=== PATIENT | male | born 1950 | race Caucasian/White ===

== ENCOUNTER 2018-10-23 03:18 | Emergency (ER) | payer OTHER, MEDICARE ==
[2018-10-23] MEDS ORDERED: ONDANSETRON 4 MG/2 ML VIAL ONE (04:47)
[2018-10-23] MEDS ORDERED: FAMOTIDINE 20 MG/2 ML VIAL IV ONE (04:47)
[2018-10-23] MEDS ORDERED: MAGNE/ALUM HYDROXD 30 ML UCUP ONE (04:47)
[2018-10-23] MEDS ORDERED: LIDOCAINE VISCOUS 2% SOLN 15 ML UDC ONE ×2 (04:47→05:01)
[2018-10-23 04:59] LABS: Absolute Monocytes 0.7 K/uL (0.1-1.3); Absolute Neutrophil 3.1 K/uL (1.8-8.0); Basophils % 1.2 % (0-1.3); Eosinophils % 2.8 % (0-4.4); MPV 11.2 fL (7.6-11.3); RBC Red Blood Cell Count 3.34 M/uL (4.33-5.43)
[2018-10-23] MEDS ORDERED: MAGNES/ALUMIN/SIMET 30ML UCUP ONE (05:01)
[2018-10-23 05:30] LABS: ALT/SGPT 31 U/L (12-78); AST/SGOT 21 U/L (15-37); Albumin 3.9 g/dL (3.4-5.0); Alkaline Phosphatase 90 U/L (45-117); BUN Blood Urea Nitrogen 41 mg/dL (7-18); Bicarbonate 30 mmol/L (21-32); Bilirubin Direct 0.1 mg/dL (0-0.2); Bilirubin Total 0.4 mg/dL (0.2-1.0); Glucose Level 139 mg/dL (74-106); Lipase 137 U/L (73-393); Potassium 4.4 mmol/L (3.5-5.1); Protein, Total 7.6 g/dL (6.4-8.2); Sodium Level 138 mmol/L (136-145); Troponin (Emerg Dept Use Only) < 0.02 ng/mL (0.0-0.045)
--- NOTE | 2018-10-23 06:03 | ER ---
Nurse's Notes [facility] Name: Ritika Mireles Age: 68 yrs Sex: Male : 1950 Arrival Date: 10/23/2018 Time: 03:21 Bed 18 Private MD: Juan Pablo Byrne Diagnosis: Gastritis, unspecified Presentation: 10/23 03:25 Presenting complaint: Patient states: I have had indigestion for the past few weeks. jb4 Tonight it kept getting worse and I took 3 Honey-Tilly and about 12 tums. It did not get any better until I got here. 03:25 Transition of care: patient was not received from another setting of care. Onset of jb4 symptoms was October 05, 2018. Risk Assessment: Do you want to hurt yourself or someone else? Patient reports no desire to harm self or others. Initial Sepsis Screen: Does the patient meet any 2 criteria? No. Patient's initial sepsis screen is negative. Does the patient have a suspected source of infection? No. Patient's initial sepsis screen is negative. Care prior to arrival: None. 03:25 Method Of Arrival: Wheelchair jb4 03:25 Acuity: MICHELLE 3 jb4 Triage Assessment: 03:25 General: Appears in no apparent distress. comfortable, Behavior is calm, cooperative, jb4 appropriate for age. Pain: Complains of pain in abdomen Pain does not radiate. Pain currently is 0 out of 10 on a pain scale. at worst was 10 out of 10 on a pain scale. Quality of pain is described as burning. EENT: No signs and/or symptoms were reported regarding the EENT system. Neuro: Level of Consciousness is awake, alert, obeys commands, Oriented to person, place, time, situation. Cardiovascular: Patient's skin is warm and dry. Respiratory: Airway is patent Respiratory effort is even, unlabored, Respiratory pattern is regular, symmetrical. GI: Reports indigestion. : No signs and/or symptoms were reported regarding the genitourinary system. Derm: Skin is intact, Skin is pink, warm \T\ dry. Musculoskeletal: Circulation, motion, and sensation intact. Historical: - Allergies: 03:25 Bactrim; jb4 03:25 TETRACYCLINES; jb4 03:25 Sulfa (Sulfonamide Antibiotics); jb4 - Home Meds: 03:25 Lantus Sub-Q [Active]; Novolog Sub-Q [Active]; rosuvastatin oral oral [Active]; Eliquis jb4 oral oral [Active]; Mineral-3 oral oral [Active]; montelukast oral oral [Active]; Cami Oral [Active]; gabapentin oral oral [Active]; Furosemide Oral [Active]; Vitamin D Oral [Active]; sevelamer carbonate oral oral [Active]; calcium acetate oral oral [Active]; Colace oral oral [Active]; Baclofen Oral [Active]; Hydromorphone Oral [Active]; - PMHx: 03:25 Diabetes - IDDM; Dialysis (started 03/20/17); Hypertension; PE; RENAL FAILURE; jb4 - PSHx: 03:25 Dialysis fistula to left arm and dialysis catheter to right upper chest; jb4 - Immunization history:: Adult Immunizations up to date, Flu vaccine is up to date. - Social history:: Smoking status: Patient/guardian denies using tobacco, Patient/guardian denies using alcohol, Patient/guardian denies using street drugs, The patient lives with family, with spouse. - Ebola Screening: : No symptoms or risks identified at this time. - Family history:: not pertinent. Screenin:25 Abuse screen: Denies threats or abuse. Nutritional screening: No deficits noted. jb4 Tuberculosis screening: No symptoms or risk factors identified. Fall Risk None identified. Assessment: 03:25 General: see triage assessment.. jb4 04:30 Reassessment: Patient appears in no apparent distress at this time. Patient and/or jb4 family updated on plan of care and expected duration. Pain level reassessed. Patient is alert, oriented x 3, equal unlabored respirations, skin warm/dry/pink. 05:24 Reassessment: Patient appears in no apparent distress at this time. Patient and/or jb4 family updated on plan of care and expected duration. Pain level reassessed. Patient is alert, oriented x 3, equal unlabored respirations, skin warm/dry/pink. Patient states feeling better. Vital Signs: 03:25 BP 152 / 62; Pulse 68; Resp 18; Temp 97.8(TE); Pulse Ox 97% on R/A; Weight 133.81 kg jb4 (R); Height 5 ft. 11 in. (180.34 cm) (R); Pain 0/10; 05:15 BP 101 / 87; Pulse 71; Resp 16; Pulse Ox 96% on R/A; jb4 06:00 BP 136 / 73; Pulse 68; Resp 16; Pulse Ox 97% on R/A; jb4 03:25 Body Mass Index 41.14 (133.81 kg, 180.34 cm) jb4 ED Course: 03:21 Patient arrived in ED. es 03:22 Juan Pablo Byrne DO is Private Physician. es 03:24 Luiz Lui, RN is Primary Nurse. jb4 03:25 Jodie Jackson MD is Attending Physician. ma2 03:25 Arm band placed on left wrist. jb4 03:25 Patient has correct armband on for positive identification. Bed in low position. Call jb4 light in reach. Side rails up X 1. Pulse ox on. NIBP on. 03:40 Triage completed. jb4 04:20 Missed attempt(s): 20 gauge in right antecubital area. jb4 04:27 Inserted saline lock: 22 gauge in right antecubital area, using aseptic technique. jb4 06:13 No provider procedures requiring assistance completed. IV discontinued, intact, jb4 bleeding controlled. Administered Medications: 04:34 Drug: GI Cocktail without - (Maalox Suspension 30 ml, Lidocaine Liquid 2 % 15 jb4 ml) Route: PO; 06:15 Follow up: Response: No adverse reaction; Pain is decreased jb4 04:35 Drug: Pepcid 20 mg Route: IVP; Site: right antecubital; jb4 06:14 Follow up: Response: No adverse reaction jb4 04:38 Drug: Zofran 4 mg Route: IVP; Site: right antecubital; jb4 06:14 Follow up: Response: No adverse reaction; Nausea is decreased jb4 Outcome: 06:01 Discharge ordered by . ma2 06:13 Discharged to home ambulatory, with significant other. jb4 06:13 Condition: stable 06:13 Discharge instructions given to patient, significant other, Instructed on discharge instructions, follow up and referral plans. medication usage, Demonstrated understanding of instructions, follow-up care, medications, Prescriptions given X 4. 06:16 Patient left the ED. jb4 Signatures: Joselyn Kruger James, RN RN jb4 Jodie Jackson, MD FARR ma2
--- NOTE | 2018-10-23 06:04 | EDPHYS ---
Physician Documentation [facility] Name: Ritika Mireles Age: 68 yrs Sex: Male : 1950 Arrival Date: 10/23/2018 Time: 03:21 Bed 18 Private MD: Juan Pablo Byrne ED Physician Jdoie Jackson HPI: 10/23 04:08 This 68 yrs old Male presents to ER via Wheelchair with complaints of ma2 INDEGESTION. 04:08 The patient presents with abdominal pain in the epigastric area. Onset: The ma2 symptoms/episode began/occurred gradually, 2 week(s) ago. The symptoms do not radiate. Associated signs and symptoms: Pertinent positives: nausea, Pertinent negatives: anorexia, constipation. The symptoms are described as burning. Severity of pain: At its worst the pain was moderate in the emergency department the pain is unchanged. The patient has experienced similar episodes in the past. Historical: - Allergies: 03:25 Bactrim; jb4 03:25 TETRACYCLINES; jb4 03:25 Sulfa (Sulfonamide Antibiotics); jb4 - Home Meds: 03:25 Lantus Sub-Q [Active]; Novolog Sub-Q [Active]; rosuvastatin oral oral [Active]; Eliquis jb4 oral oral [Active]; [place]-3 oral oral [Active]; montelukast oral oral [Active]; Cami Oral [Active]; gabapentin oral oral [Active]; Furosemide Oral [Active]; Vitamin D Oral [Active]; sevelamer carbonate oral oral [Active]; calcium acetate oral oral [Active]; Colace oral oral [Active]; Baclofen Oral [Active]; Hydromorphone Oral [Active]; - PMHx: 03:25 Diabetes - IDDM; Dialysis (started 03/20/17); Hypertension; PE; RENAL FAILURE; jb4 - PSHx: 03:25 Dialysis fistula to left arm and dialysis catheter to right upper chest; jb4 - Immunization history:: Adult Immunizations up to date, Flu vaccine is up to date. - Social history:: Smoking status: Patient/guardian denies using tobacco, Patient/guardian denies using alcohol, Patient/guardian denies using street drugs, The patient lives with family, with spouse. - Ebola Screening: : No symptoms or risks identified at this time. - Family history:: not pertinent. ROS: 04:08 Constitutional: Negative for fever, chills, and weight loss. ma2 04:08 Abdomen/GI: Positive for nausea, vomiting, Negative for abdominal cramps, rectal pain, flatulence. 04:08 All other systems are negative. Exam: 04:08 Constitutional: This is a well developed, well nourished patient who is awake, alert, ma2 and in no acute distress. ENT: Nares patent. No nasal discharge, no septal abnormalities noted. Tympanic membranes are normal and external auditory canals are clear. Oropharynx with no redness, swelling, or masses, exudates, or evidence of obstruction, uvula midline. Mucous membranes moist. Chest/axilla: Normal chest wall appearance and motion. Nontender with no deformity. No lesions are appreciated. Cardiovascular: Regular rate and rhythm with a normal S1 and S2. No gallops, murmurs, or rubs. Normal PMI, no JVD. No pulse deficits. Respiratory: Lungs have equal breath sounds bilaterally, clear to auscultation and percussion. No rales, rhonchi or wheezes noted. No increased work of breathing, no retractions or nasal flaring. Abdomen/GI: Soft, non-tender, with normal bowel sounds. No distension or tympany. No guarding or rebound. No evidence of tenderness throughout. MS/ Extremity: Pulses equal, no cyanosis. Neurovascular intact. Full, normal range of motion. Neuro: Awake and alert, GCS 15, oriented to person, place, time, and situation. Cranial nerves II-XII grossly intact. Motor strength 5/5 in all extremities. Sensory grossly intact. Cerebellar exam normal. Normal gait. Vital Signs: 03:25 BP 152 / 62; Pulse 68; Resp 18; Temp 97.8(TE); Pulse Ox 97% on R/A; Weight 133.81 kg jb4 (R); Height 5 ft. 11 in. (180.34 cm) (R); Pain 0/10; 05:15 BP 101 / 87; Pulse 71; Resp 16; Pulse Ox 96% on R/A; jb4 06:00 BP 136 / 73; Pulse 68; Resp 16; Pulse Ox 97% on R/A; jb4 03:25 Body Mass Index 41.14 (133.81 kg, 180.34 cm) jb4 MDM: 03:26 Patient medically screened. pr2 04:08 Differential diagnosis: gastritis, gastroesophageal reflux disease, Peptic Ulcer ma2 Disease. 06:00 Data reviewed: vital signs, nurses notes. Counseling: I had a detailed discussion with ma2 the patient and/or guardian regarding: the historical points, exam findings, and any diagnostic results supporting the discharge/admit diagnosis, the presence of at least one elevated blood pressure reading (>120/80) during this emergency department visit, the need for outpatient follow up. Response to treatment: the patient's symptoms have resolved after treatment. 10/23 03:57 Order name: Basic Metabolic Panel [facility] 10/23 03:57 Order name: CBC with Diff; Complete Time: 05:14 [facility] 10/23 03:57 Order name: Creatinine for Radiology; Complete Time: 06:00 [facility] 10/23 03:57 Order name: Hepatic Function; Complete Time: 06:00 [facility] 10/23 03:57 Order name: Lipase; Complete Time: 06:00 [facility] 10/23 03:57 Order name: Troponin (emerg Dept Use Only); Complete Time: 06:00 [facility] 10/23 03:57 Order name: IV Saline Lock; Complete Time: 04:24 [facility] 10/23 03:57 Order name: Labs collected and sent; Complete Time: 04:34 [facility] 10/23 03:57 Order name: EKG; Complete Time: 03:58 [facility] 10/23 03:58 Order name: Basic Metabolic Panel; Complete Time: 06:00 EDMS Administered Medications: 04:34 Drug: GI Cocktail without - (Maalox Suspension 30 ml, Lidocaine Liquid 2 % 15 jb4 ml) Route: PO; 06:15 Follow up: Response: No adverse reaction; Pain is decreased jb4 04:35 Drug: Pepcid 20 mg Route: IVP; Site: right antecubital; jb4 06:14 Follow up: Response: No adverse reaction jb4 04:38 Drug: Zofran 4 mg Route: IVP; Site: right antecubital; jb4 06:14 Follow up: Response: No adverse reaction; Nausea is decreased jb4 Disposition: 10/23/18 06:01 Discharged to Home. Impression: Gastritis, unspecified. - Condition is Stable. - Discharge Instructions: Abdominal Pain, Adult, [id number]. - Prescriptions for Maalox Advanced 200- 200-20 mg/5 mL Oral suspension - take 10 milliliter by ORAL route 2-3 times daily; 100 milliliter. Pepcid 20 mg Oral Tablet - take 1 tablet by ORAL route every 12 hours for 10 days; 20 tablet. Tylenol- Codeine #3 300-30 mg Oral Tablet - take 2 tablet by ORAL route every 6 hours As needed; 30 tablet. promethazine 25 mg Oral Tablet - take 1 tablet by ORAL route every 6 hours As needed; 20 tablet. - Medication Reconciliation Form, Thank You Letter, Antibiotic Education, Prescription Opioid Use form. - Follow up: Private Physician; When: Tomorrow; Reason: If symptoms return, Continuance of care. Signatures: Dispatcher [employer] Luiz Pruett RN RN jb4 Jodie Jackson MD MD ma2 Corrections: (The following items were deleted from the chart) 06:16 06:01 10/23/2018 06:01 Discharged to Home. Impression: Gastritis, unspecified. jb4 Condition is Stable. Forms are Medication Reconciliation Form, Thank You Letter, Antibiotic Education, Prescription Opioid Use. Follow up: Private Physician; When: Tomorrow; Reason: If symptoms return, Continuance of care. ma2
--- NOTE | 2018-10-23 08:46 | EKG ---
Test Date: 2018-10-23 Test Time: 04:04:24 Explosive Operator Bomb: GISELLE MEASUREMENT RESULTS: Intervals: Rate: 70 OR: 266 QRSD: 144 QT: 410 QTc: 442 [place]: P: 63 OR: 266 QRS: -70 T: 60 INTERPRETIVE STATEMENTS: Sinus rhythm with 1st degree AV block Right bundle branch block Left anterior fascicular block Bifascicular block Abnormal ECG Compared to ECG 04/08/2017 10:31:15 Right bundle-branch block now present Left anterior fascicular block now present Bifascicular block now present Left-axis deviation no longer present Electronically Signed On 10-23-18 08:45:48 ZOOKEEPER by Moises Solorzano
--- NOTE | 2018-10-23 08:46 | EKG ---
Test Date: 2018-10-23 Test Time: 04:06:09 Head Athletic Trainer/Strength Coach: GISELLE MEASUREMENT RESULTS: Intervals: Rate: 69 ME: 270 QRSD: 142 QT: 418 QTc: 447 [place]: P: 35 ME: 270 QRS: -69 T: 50 INTERPRETIVE STATEMENTS: Sinus rhythm with 1st degree AV block Right bundle branch block Left anterior fascicular block Bifascicular block Abnormal ECG Compared to ECG 10/23/2018 04:04:24 No significant changes Electronically Signed On 10-23-18 08:45:47 CRYSTAL CUTTER by Moises Solorzano
== END 2018-10-23 06:16 | disposition home or self-care (01) ==
LOC: ER 03:18
DX: K29.70 Gastritis, unspecified, without bleeding (principal); I12.0 Hypertensive chronic kidney disease with stage 5 chronic kidney disease or end stage renal disease; E11.22 Type 2 diabetes mellitus with diabetic chronic kidney disease; N18.6 End stage renal disease; Z79.4 Long term (current) use of insulin; Z79.01 Long term (current) use of anticoagulants; Z88.1 Allergy status to other antibiotic agents; Z88.2 Allergy status to sulfonamides; Z99.2 Dependence on renal dialysis
CPT/HCPCS: 36415; 80048; 80076; 83690; 84484; 85025; 93005 ×2; J2405

== ENCOUNTER 2018-12-07 21:39 | Emergency (ER) | payer OTHER, MEDICARE ==
[2018-12-07 22:32] LABS: Absolute Lymphocytes (CBC) 1.3 K/uL (0.7-4.9); Absolute Monocytes 0.4 K/uL (0.1-1.3); Absolute Neutrophil 4.9 K/uL (1.8-8.0); Basophils % 0.9 % (0-1.3); Eosinophils % 1.3 % (0-4.4); Hematocrit 32.1 % (39.6-49.0); Lymphocytes % 19.4 % (15.3-44.8); MPV 10.5 fL (7.6-11.3); Monocytes % 5.7 % (3.3-12.3); Protime INR 1.06; RBC Red Blood Cell Count 3.31 M/uL (4.33-5.43)
[2018-12-07 22:57] LABS: ALT/SGPT 34 U/L (12-78); AST/SGOT 21 U/L (15-37); Albumin 4.1 g/dL (3.4-5.0); Alkaline Phosphatase 123 U/L (45-117); BUN Blood Urea Nitrogen 16 mg/dL (7-18); Bicarbonate 27 mmol/L (21-32); Bilirubin Direct 0.1 mg/dL (0-0.2); Bilirubin Total 0.4 mg/dL (0.2-1.0); Glucose Level 226 mg/dL (74-106); Magnesium 2.3 mg/dL (1.8-2.4); NT PRO-BNP 633 pg/mL (<125); Potassium 4.1 mmol/L (3.5-5.1); Sodium Level 132 mmol/L (136-145); Troponin (Emerg Dept Use Only) < 0.02 ng/mL (0.0-0.045)
[2018-12-07] MEDS ORDERED: PANTOPRAZOLE 40MG TABLET PO ONE (23:03)
[2018-12-07] MEDS ORDERED: SIMETHICONE 80 MG TAB ONE (23:04)
[2018-12-08 00:09] LABS: Blood Morphology Comment NOT SEEN (NOT SEEN); Platelet Estimate ADEQ
--- NOTE | 2018-12-08 00:50 | ER ---
Nurse's Notes [facility] Name: Ritika Mireles Age: 68 yrs Sex: Male : 1950 Arrival Date: 12/07/2018 Time: 21:42 Bed 23 Private MD: Diagnosis: GERD. Chronic renal disease Presentation: 12/07 21:55 Presenting complaint: Patient states: I have had some epigastric pain. I took my ed1 prescribed medications but I still feel gassy. Also my blood pressure is high. Pt reports having a fistula repair done yesterday. Transition of care: patient was not received from another setting of care. Onset of symptoms was December 07, 2018. Risk Assessment: Do you want to hurt yourself or someone else? Patient reports no desire to harm self or others. Initial Sepsis Screen: Does the patient meet any 2 criteria? No. Patient's initial sepsis screen is negative. Does the patient have a suspected source of infection? No. Patient's initial sepsis screen is negative. Care prior to arrival: None. 21:55 Method Of Arrival: Wheelchair ed1 21:55 Acuity: MICHELLE 3 ed1 Triage Assessment: 22:10 General: Appears in no apparent distress. Behavior is calm, cooperative. Pain: Denies ed1 pain. Historical: - Allergies: 22:10 Sulfa (Sulfonamide Antibiotics); ed1 22:10 TETRACYCLINES; ed1 - Home Meds: 22:10 Cami 180 mg oral tab 1 tab nightly [Active]; baclofen 10 mg oral tab 1.5 tab daily ed1 [Active]; calcium acetate 667 mg oral tab 3 tabs 3 times per day [Active]; Colace 100 mg oral cap 2 caps 2 times per day [Active]; Eliquis 2.5 mg oral tab 1 tab daily [Active]; furosemide 80 mg oral tab 1 tab once daily [Active]; gabapentin 300 mg oral cap 1 cap 3 times per day [Active]; hydromorphone 2 mg oral tab 1 tab twice a day [Active]; Lantus 100 unit/mL subcutaneous soln 40 unit daily [Active]; montelukast 10 mg oral tab 1 tab nightly [Active]; Novolog 100 unit/mL subcutaneous soln 40 unit twice a day [Active]; [place]-3 1 gm Oral 2 tab twice a day [Active]; rosuvastatin 10 mg oral tab 1 tab nightly [Active]; sevelamer carbonate 800 mg oral tab 1 tab 3 times per day [Active]; Vitamin D 5000IU Oral 2 tab daily [Active]; Pepcid 40 mg Oral tab 1 tab every 12 hours [Active]; Constulose 10 gram/15 mL oral soln 30 mL twice a day [Active]; Linzess oral 72 mcg oral 1 cap once daily [Active]; - PMHx: 22:10 Diabetes - IDDM; Dialysis (started 03/20/17); Hypertension; PE; RENAL FAILURE; Diabetic ed1 Retinopathy; - PSHx: 22:10 Angioplasty, stent deployment, fistulagram (06-13-17); Fistula to left upper arm; ed1 - Immunization history:: Adult Immunizations up to date, Flu vaccine is up to date. - Social history:: Smoking status: Patient/guardian denies using tobacco. - Ebola Screening: : Patient negative for fever greater than or equal to 101.5 degrees Fahrenheit, and additional compatible Ebola Virus Disease symptoms Patient denies exposure to infectious person Patient denies travel to an Ebola-affected area in the 21 days before illness onset No symptoms or risks identified at this time. Screenin:48 Abuse screen: Denies threats or abuse. Denies injuries from another. Nutritional rv screening: No deficits noted. Tuberculosis screening: No symptoms or risk factors identified. Fall Risk None identified. Assessment: 22:00 General: Appears in no apparent distress. comfortable, Behavior is calm, cooperative. rv 22:00 Pain: Denies pain. Neuro: Level of Consciousness is awake, alert, obeys commands, rv Oriented to person, place, time, situation. Cardiovascular: Capillary refill < 3 seconds. Respiratory: Airway is patent. GI: No signs and/or symptoms were reported involving the gastrointestinal system. : No signs and/or symptoms were reported regarding the genitourinary system. EENT: No signs and/or symptoms were reported regarding the EENT system. Derm: Skin is intact. Musculoskeletal: No signs and/or symptoms reported regarding the musculoskeletal system. Vital Signs: 22:10 BP 146 / 65; Pulse 88; Resp 20; Pulse Ox 98% on R/A; Pain 0/10; ed1 23:00 BP 188 / 92 RA; Pulse 81; Resp 16 S; Pulse Ox 99% on R/A; rv 23:30 BP 167 / 75 RA; Pulse 78; Resp 17 S; Pulse Ox 100% on R/A; rv 04 00:00 BP 165 / 75 RA; Pulse 77; Resp 13 S; Pulse Ox 98% on R/A; rv 00:34 BP 156 / 68 RA; Pulse 76; Resp 12 S; Pulse Ox 97% on R/A; rv 01:22 BP 146 / 67 RA; Pulse 73; Resp 15 S; Pulse Ox 98% on R/A; rv ED Course: 12/07 21:42 Patient arrived in ED. do 21:55 Sharri Perea, RN is Primary Nurse. ed1 21:57 Triage completed. ed1 22:10 Arm band placed on. EKG completed in triage. Results shown to MD. ed1 22:15 Patient has correct armband on for positive identification. Bed in low position. Call rv light in reach. Side rails up X 1. Adult w/ patient. 22:15 Pulse ox on. NIBP on. rv 22:16 Bill Cruz MD is Attending Physician. pkl 22:20 Inserted saline lock: 22 gauge in right antecubital area, using aseptic technique. rv Blood collected. 22:58 XRAY Chest (1 view) In Process Unspecified. EDMS 04 01:23 No provider procedures requiring assistance completed. IV discontinued, intact, rv bleeding controlled, No redness/swelling at site. Pressure dressing applied. Administered Medications: 12/07 22:46 CANCELLED (dose change): Simethicone 120 mg PO once fc 22:55 Drug: Simethicone 80 mg Route: PO; fc 23:49 Follow up: Response: No adverse reaction rv 23:10 Drug: ProTONIX 40 mg Route: PO; fc 23:49 Follow up: Response: No adverse reaction rv 12/08 00:50 Drug: Zofran 4 mg Route: IVP; Site: right antecubital; rv 01:22 Follow up: Response: Nausea is decreased rv Outcome: 00:49 Discharge ordered by . pkl 01:23 Discharged to home ambulatory. rv 01:23 Condition: good 01:23 Discharge instructions given to patient, family, Instructed on discharge instructions, follow up and referral plans. medication usage, Demonstrated understanding of instructions, follow-up care, medications, Prescriptions given X 3. 01:24 Patient left the ED. rv Signatures: Dispatcher [employer] EDMS Bill Cruz MD MD pkl Chretien, Felicia RN RN Sharri Bhatti RN RN ed1 Leila Bonner, Juan Carlos RN RN rv
--- NOTE | 2018-12-08 00:50 | EDPHYS ---
Physician Documentation [facility] Name: Ritika Mireles Age: 68 yrs Sex: Male : 1950 Arrival Date: 12/07/2018 Time: 21:42 Bed 23 Private MD: ED Physician Bill Cruz HPI: 12/07 22:56 This 68 yrs old Male presents to ER via Wheelchair with complaints of High pkl Blood Pressure, Indigestion. 22:56 The patient presents with Indigestion and bloated feeling. Onset: The symptoms/episode pkl began/occurred today. Historical: - Allergies: 22:10 Sulfa (Sulfonamide Antibiotics); ed1 22:10 TETRACYCLINES; ed1 - Home Meds: 22:10 Cami 180 mg oral tab 1 tab nightly [Active]; baclofen 10 mg oral tab 1.5 tab daily ed1 [Active]; calcium acetate 667 mg oral tab 3 tabs 3 times per day [Active]; Colace 100 mg oral cap 2 caps 2 times per day [Active]; Eliquis 2.5 mg oral tab 1 tab daily [Active]; furosemide 80 mg oral tab 1 tab once daily [Active]; gabapentin 300 mg oral cap 1 cap 3 times per day [Active]; hydromorphone 2 mg oral tab 1 tab twice a day [Active]; Lantus 100 unit/mL subcutaneous soln 40 unit daily [Active]; montelukast 10 mg oral tab 1 tab nightly [Active]; Novolog 100 unit/mL subcutaneous soln 40 unit twice a day [Active]; [place]-3 1 gm Oral 2 tab twice a day [Active]; rosuvastatin 10 mg oral tab 1 tab nightly [Active]; sevelamer carbonate 800 mg oral tab 1 tab 3 times per day [Active]; Vitamin D 5000IU Oral 2 tab daily [Active]; Pepcid 40 mg Oral tab 1 tab every 12 hours [Active]; Constulose 10 gram/15 mL oral soln 30 mL twice a day [Active]; Linzess oral 72 mcg oral 1 cap once daily [Active]; - PMHx: 22:10 Diabetes - IDDM; Dialysis (started 03/20/17); Hypertension; PE; RENAL FAILURE; Diabetic ed1 Retinopathy; - PSHx: 22:10 Angioplasty, stent deployment, fistulagram (06-13-17); Fistula to left upper arm; ed1 - Immunization history:: Adult Immunizations up to date, Flu vaccine is up to date. - Social history:: Smoking status: Patient/guardian denies using tobacco. - Ebola Screening: : Patient negative for fever greater than or equal to 101.5 degrees Fahrenheit, and additional compatible Ebola Virus Disease symptoms Patient denies exposure to infectious person Patient denies travel to an Ebola-affected area in the 21 days before illness onset No symptoms or risks identified at this time. ROS: 22:56 Eyes: Negative for injury, pain, redness, and discharge, ENT: Negative for injury, pkl pain, and discharge, Neck: Negative for injury, pain, and swelling, Cardiovascular: Negative for chest pain, palpitations, and edema, Respiratory: Negative for shortness of breath, cough, wheezing, and pleuritic chest pain. 22:56 Abdomen/GI: Positive for indigestion and bloated feeling. 22:56 Back: Negative for acute changes. 22:56 : Negative for urinary symptoms. 22:56 MS/extremity: Negative for acute changes. 22:56 Skin: Negative for rash. 22:56 Neuro: Negative for altered mental status. Exam: 22:56 Head/Face: Normocephalic, atraumatic. Eyes: Pupils equal round and reactive to light, pkl extra-ocular motions intact. Lids and lashes normal. Conjunctiva and sclera are non-icteric and not injected. Cornea within normal limits. Periorbital areas with no swelling, redness, or edema. ENT: Nares patent. No nasal discharge, no septal abnormalities noted. Tympanic membranes are normal and external auditory canals are clear. Oropharynx with no redness, swelling, or masses, exudates, or evidence of obstruction, uvula midline. Mucous membranes moist. Neck: Trachea midline, no thyromegaly or masses palpated, and no cervical lymphadenopathy. Supple, full range of motion without nuchal rigidity, or vertebral point tenderness. No Meningismus. Chest/axilla: Normal chest wall appearance and motion. Nontender with no deformity. No lesions are appreciated. Cardiovascular: Regular rate and rhythm with a normal S1 and S2. No gallops, murmurs, or rubs. Normal PMI, no JVD. No pulse deficits. Respiratory: Lungs have equal breath sounds bilaterally, clear to auscultation and percussion. No rales, rhonchi or wheezes noted. No increased work of breathing, no retractions or nasal flaring. Abdomen/GI: Soft, non-tender, with normal bowel sounds. No distension or tympany. No guarding or rebound. No evidence of tenderness throughout. Back: No spinal tenderness. No costovertebral tenderness. Full range of motion. Skin: Warm, dry with normal turgor. Normal color with no rashes, no lesions, and no evidence of cellulitis. MS/ Extremity: Pulses equal, no cyanosis. Neurovascular intact. Full, normal range of motion. Neuro: Awake and alert, GCS 15, oriented to person, place, time, and situation. Cranial nerves II-XII grossly intact. Motor strength 5/5 in all extremities. Sensory grossly intact. Cerebellar exam normal. Normal gait. Vital Signs: 22:10 BP 146 / 65; Pulse 88; Resp 20; Pulse Ox 98% on R/A; Pain 0/10; ed1 23:00 BP 188 / 92 RA; Pulse 81; Resp 16 S; Pulse Ox 99% on R/A; rv 23:30 BP 167 / 75 RA; Pulse 78; Resp 17 S; Pulse Ox 100% on R/A; rv 04 00:00 BP 165 / 75 RA; Pulse 77; Resp 13 S; Pulse Ox 98% on R/A; rv 00:34 BP 156 / 68 RA; Pulse 76; Resp 12 S; Pulse Ox 97% on R/A; rv 01:22 BP 146 / 67 RA; Pulse 73; Resp 15 S; Pulse Ox 98% on R/A; rv MDM: 12/07 22:16 Patient medically screened. pkl 12/08 00:48 Data reviewed: vital signs, nurses notes, lab test result(s), EKG, radiologic studies, pkl plain films. 12/07 22:06 Order name: Basic Metabolic Panel; Complete Time: 23:09 12/07 22:06 Order name: CBC with Diff; Complete Time: 00:44 12/07 22:06 Order name: LFT's; Complete Time: 23:09 12/07 22:06 Order name: Magnesium; Complete Time: 23:09 12/07 22:06 Order name: NT PRO-BNP; Complete Time: 23:09 12/07 22:06 Order name: PT-INR; Complete Time: 23:09 12/07 22:06 Order name: Troponin (emerg Dept Use Only); Complete Time: 23:09 12/07 22:06 Order name: XRAY Chest (1 view) 12/07 22:06 Order name: EKG; Complete Time: 22:07 12/07 22:51 Order name: Manual Differential; Complete Time: 00:44 EDPA 12/07 22:06 Order name: Cardiac monitoring; Complete Time: 22:36 12/07 22:06 Order name: EKG - Nurse/Tech; Complete Time: 22:36 12/07 22:06 Order name: IV Saline Lock; Complete Time: 22:36 12/07 22:06 Order name: Labs collected and sent; Complete Time: 22:36 12/07 22:06 Order name: O2 Per Protocol; Complete Time: 22:37 12/07 22:06 Order name: O2 Sat Monitoring; Complete Time: 22:37 Administered Medications: 12/07 22:46 CANCELLED (dose change): Simethicone 120 mg PO once fc 22:55 Drug: Simethicone 80 mg Route: PO; 23:49 Follow up: Response: No adverse reaction rv 23:10 Drug: ProTONIX 40 mg Route: PO; fc 23:49 Follow up: Response: No adverse reaction rv 12/08 00:50 Drug: Zofran 4 mg Route: IVP; Site: right antecubital; rv 01:22 Follow up: Response: Nausea is decreased rv Disposition: 12/08/18 00:49 Discharged to Home. Impression: GERD. Chronic renal disease. - Condition is Stable. - Prescriptions for Protonix 40 mg Oral Tablet, Delayed Release (E.C.) - take 1 tablet by ORAL route once daily; 15 tablet. Zofran 4 mg Oral Tablet - take 1 tablet by ORAL route every 12 hours As needed; 10 tablet. - Medication Reconciliation Form, Thank You Letter, Antibiotic Education, Prescription Opioid Use form. - Follow up: Private Physician; When: 2 - 3 days; Reason: Re-evaluation by your physician. - Problem is new. - Symptoms have improved. Signatures: Dispatcher [employer] EDBill Woods MD MD pkl Chretien, Felicia, RN RN Sharri Perea RN RN ed1 Juan Carlos Salazar, RN RN rv Corrections: (The following items were deleted from the chart) 12/07 22:46 22:43 Simethicone 120 mg PO once ordered. [facility] 12/08 01:24 00:49 12/08/2018 00:49 Discharged to Home. Impression: GERD. Chronic renal disease. rv Condition is Stable. Forms are Medication Reconciliation Form, Thank You Letter, Antibiotic Education, Prescription Opioid Use. Follow up: Private Physician; When: 2 - 3 days; Reason: Re-evaluation by your physician. Problem is new. Symptoms have improved. pkl
[2018-12-08] MEDS ORDERED: ONDANSETRON 4 MG/2 ML VIAL ONE (01:00)
[2018-12-08] MEDS ORDERED: SIMETHICONE 80 MG TAB ONE (02:37)
--- NOTE | 2018-12-08 07:40 | RAD REPORT ---
EXAM DESCRIPTION: RAD - Chest Single View - 12/07/2018 10:58 pm CLINICAL HISTORY: Abdominal pain, hypertension, pulmonary embolism history COMPARISON: April 2017 TECHNIQUE: AP portable chest image was obtained 2240 hours . FINDINGS: Lungs are clear. Lung markings are similar to comparison. Dialysis catheter has been remov ed moved since comparison. Heart and vasculature are normal. No measurable pleural effusion and no pn eumothorax. No acute bony abnormality seen. No acute aortic findings suspected. IMPRESSION: No acute cardiopulmonary process. No significant interval change.
--- NOTE | 2018-12-11 11:30 | EKG ---
Test Date: 2018-12-07 Test Time: 21:55:10 Special Needs Librarian: JOSTINT MEASUREMENT RESULTS: Intervals: Rate: 87 DC: 266 QRSD: 150 QT: 396 QTc: 476 [place]: P: 66 DC: 266 QRS: -68 T: 64 INTERPRETIVE STATEMENTS: Sinus rhythm with sinus arrhythmia with 1st degree AV block Right bundle branch block Left axis Abnormal ECG Compared to ECG 10/23/2018 04:06:09 no significant change from previous ECG Electronically Signed On 12-08-18 16:44:16 CDT by Marin Bradley
== END 2018-12-08 01:24 | disposition home or self-care (01) ==
LOC: ER 21:39
DX: K21.9 Gastro-esophageal reflux disease without esophagitis (principal); N19 Unspecified kidney failure; E11.319 Type 2 diabetes mellitus with unspecified diabetic retinopathy without macular edema; I10 Essential (primary) hypertension; Z79.01 Long term (current) use of anticoagulants; Z79.4 Long term (current) use of insulin; Z88.1 Allergy status to other antibiotic agents; Z88.2 Allergy status to sulfonamides; Z99.2 Dependence on renal dialysis
CPT/HCPCS: 93005; 85025; 80048; 36415; 83735; 85610; 80076; 84484; 83880; 71045; 96374; 99284; J2405

== ENCOUNTER 2018-12-08 01:45 | Emergency (ER) | payer OTHER, MEDICARE ==
--- NOTE | 2018-12-08 02:24 | EDPHYS ---
Physician Documentation [facility] Name: Ritika Mireles Age: 68 yrs Sex: Male : 1950 Arrival Date: 12/08/2018 Time: 01:46 Bed 18 Private MD: Juan Pablo Byrne ED Physician Bill Cruz HPI: 12/08 02:09 This 68 yrs old Male presents to ER via Wheelchair with complaints of pkl Allergic Reaction. 02:09 The patient presents with Patient said he felt something stuck in his throat. Onset: pkl The symptoms/episode began/occurred Patient was just discharged from the ER for complaints of indigestion and bloated feeling.. Historical: - Allergies: 02:08 Sulfa (Sulfonamide Antibiotics); fc 02:08 TETRACYCLINES; fc - Home Meds: 02:08 Cami 180 mg Oral tab 1 tab nightly [Active]; baclofen 10 mg Oral tab 1.5 tab daily fc [Active]; calcium acetate 667 mg Oral tab 3 tabs 3 times per day [Active]; Colace 100 mg Oral cap 2 caps 2 times per day [Active]; Constulose 10 gram/15 mL Oral soln 30 mL twice a day [Active]; Eliquis 2.5 mg Oral tab 1 tab daily [Active]; furosemide 80 mg Oral tab 1 tab once daily [Active]; gabapentin 300 mg Oral cap 1 cap 3 times per day [Active]; hydromorphone 2 mg Oral tab 1 tab twice a day [Active]; Lantus 100 unit/mL Sub-Q soln 40 unit daily [Active]; Linzess 72 mcg Oral 1 cap once daily [Active]; montelukast 10 mg Oral tab 1 tab nightly [Active]; Novolog 100 unit/mL Sub-Q soln 40 unit twice a day [Active]; [place]-3 1 gm Oral 2 tab twice a day [Active]; Pepcid 40 mg Oral tab 1 tab every 12 hours [Active]; rosuvastatin 10 mg Oral tab 1 tab nightly [Active]; sevelamer carbonate 800 mg Oral tab 1 tab 3 times per day [Active]; Vitamin D 5000IU Oral 2 tab daily [Active]; - PMHx: 02:08 Diabetes - IDDM; Dialysis (started 03/20/17); diabetic retinopathy; Hypertension; PE; fc RENAL FAILURE; - PSHx: 02:08 left arm fistula; fc - Immunization history:: Last tetanus immunization: up to date Flu vaccine is up to date. - Social history:: Smoking status: Patient/guardian denies using tobacco, Patient/guardian denies using alcohol, street drugs. - Ebola Screening: : Patient negative for fever greater than or equal to 101.5 degrees Fahrenheit, and additional compatible Ebola Virus Disease symptoms Patient denies exposure to infectious person Patient denies travel to an Ebola-affected area in the 21 days before illness onset. ROS: 02:09 Eyes: Negative for injury, pain, redness, and discharge, ENT: Negative for injury, pkl pain, and discharge, Neck: Negative for injury, pain, and swelling, Cardiovascular: Negative for chest pain, palpitations, and edema, Respiratory: Negative for shortness of breath, cough, wheezing, and pleuritic chest pain, Abdomen/GI: Negative for abdominal pain, nausea, vomiting, diarrhea, and constipation, Back: Negative for injury and pain, : Negative for injury, bleeding, discharge, and swelling, MS/Extremity: Negative for injury and deformity, Skin: Negative for injury, rash, and discoloration, Neuro: Negative for headache, weakness, numbness, tingling, and seizure. Exam: 02:09 Head/Face: Normocephalic, atraumatic. Eyes: Pupils equal round and reactive to light, pkl extra-ocular motions intact. Lids and lashes normal. Conjunctiva and sclera are non-icteric and not injected. Cornea within normal limits. Periorbital areas with no swelling, redness, or edema. ENT: Nares patent. No nasal discharge, no septal abnormalities noted. Tympanic membranes are normal and external auditory canals are clear. Oropharynx with no redness, swelling, or masses, exudates, or evidence of obstruction, uvula midline. Mucous membranes moist. Neck: Trachea midline, no thyromegaly or masses palpated, and no cervical lymphadenopathy. Supple, full range of motion without nuchal rigidity, or vertebral point tenderness. No Meningismus. Chest/axilla: Normal chest wall appearance and motion. Nontender with no deformity. No lesions are appreciated. Cardiovascular: Regular rate and rhythm with a normal S1 and S2. No gallops, murmurs, or rubs. Normal PMI, no JVD. No pulse deficits. Respiratory: Lungs have equal breath sounds bilaterally, clear to auscultation and percussion. No rales, rhonchi or wheezes noted. No increased work of breathing, no retractions or nasal flaring. Abdomen/GI: Soft, non-tender, with normal bowel sounds. No distension or tympany. No guarding or rebound. No evidence of tenderness throughout. Back: No spinal tenderness. No costovertebral tenderness. Full range of motion. Skin: Warm, dry with normal turgor. Normal color with no rashes, no lesions, and no evidence of cellulitis. MS/ Extremity: Pulses equal, no cyanosis. Neurovascular intact. Full, normal range of motion. Neuro: Awake and alert, GCS 15, oriented to person, place, time, and situation. Cranial nerves II-XII grossly intact. Motor strength 5/5 in all extremities. Sensory grossly intact. Cerebellar exam normal. Normal gait. Vital Signs: 01:48 BP 143 / 53; Pulse 75; Resp 18; Temp 98.1(O); Pulse Ox 97% on R/A; Weight 136.08 kg (R); Height 5 ft. 11 in. (180.34 cm) (R); Pain 0/10; 02:00 BP 160 / 86; Pulse 74; Resp 17 S; Pulse Ox 96% on R/A; cc3 01:48 Body Mass Index 41.84 (136.08 kg, 180.34 cm) MDM: 01:51 Patient medically screened. pkl 02:22 Data reviewed: vital signs, nurses notes. pkl Administered Medications: 02:25 Drug: Simethicone 80 mg Route: PO; cc3 02:44 Follow up: Response: No adverse reaction; Marked relief of symptoms cc3 Disposition: 12/08/18 02:23 Discharged to Home. Impression: GERD. Mucus in throat. Possible allergic reaction. - Condition is Stable. - Medication Reconciliation Form, Thank You Letter, Antibiotic Education, Prescription Opioid Use form. - Follow up: Juan Pablo Byrne DO; When: 2 - 3 days; Reason: Re-evaluation by your physician. - Problem is new. - Symptoms have improved. Signatures: Bill Cruz MD MD pkl Yeny Kelly RN RN Princess [place] cc3 Corrections: (The following items were deleted from the chart) 02:44 02:23 12/08/2018 02:23 Discharged to Home. Impression: GERD. Mucus in throat. Possible cc3 allergic reaction. Condition is Stable. Forms are Medication Reconciliation Form, Thank You Letter, Antibiotic Education, Prescription Opioid Use. Follow up: Juan Pablo Byrne; When: 2 - 3 days; Reason: Re-evaluation by your physician. Problem is new. Symptoms have improved. pkl
--- NOTE | 2018-12-08 02:24 | ER ---
Nurse's Notes [facility] Name: Ritika Mireles Age: 68 yrs Sex: Male : 1950 Arrival Date: 12/08/2018 Time: 01:46 Bed 18 Private MD: Juan Pablo Byrne Diagnosis: GERD. Mucus in throat. Possible allergic reaction Presentation: 12/08 01:48 Presenting complaint: Patient states: that he was given shot of nausea medication just fc prior to discharge and on his way home he started to have trouble breathing (like something was stuck in his throat). Transition of care: patient was not received from another setting of care. Onset: The symptoms/episode began/occurred suddenly. Anaphylaxis evaluation, no signs or symptoms of anaphylaxis were noted. Onset of symptoms was December 08, 2018 at 01:30. Risk Assessment: Do you want to hurt yourself or someone else? Patient reports no desire to harm self or others. Initial Sepsis Screen: Does the patient meet any 2 criteria? No. Patient's initial sepsis screen is negative. Does the patient have a suspected source of infection? No. Patient's initial sepsis screen is negative. Care prior to arrival: None. 01:48 Method Of Arrival: Wheelchair 01:48 Acuity: MICHELLE 4 fc Triage Assessment: 01:58 General: Appears in no apparent distress. comfortable, Behavior is calm, cooperative, cc3 appropriate for age. Pain: Denies pain. EENT: Reports difficulty swallowing since few moments ago. Neuro: Level of Consciousness is awake, alert, obeys commands, Oriented to person, place, time, situation, Appropriate for age. Cardiovascular: Patient's skin is warm and dry. Respiratory: Airway is patent Respiratory effort is even, unlabored, Respiratory pattern is regular, symmetrical. GI: Abdomen is round non-distended. : No signs and/or symptoms were reported regarding the genitourinary system. Derm: No signs and/or symptoms reported regarding the dermatologic system. Musculoskeletal: Circulation, motion, and sensation intact. Range of motion: intact in all extremities. Historical: - Allergies: 02:08 Sulfa (Sulfonamide Antibiotics); fc 02:08 TETRACYCLINES; fc - Home Meds: 02:08 Cami 180 mg Oral tab 1 tab nightly [Active]; baclofen 10 mg Oral tab 1.5 tab daily fc [Active]; calcium acetate 667 mg Oral tab 3 tabs 3 times per day [Active]; Colace 100 mg Oral cap 2 caps 2 times per day [Active]; Constulose 10 gram/15 mL Oral soln 30 mL twice a day [Active]; Eliquis 2.5 mg Oral tab 1 tab daily [Active]; furosemide 80 mg Oral tab 1 tab once daily [Active]; gabapentin 300 mg Oral cap 1 cap 3 times per day [Active]; hydromorphone 2 mg Oral tab 1 tab twice a day [Active]; Lantus 100 unit/mL Sub-Q soln 40 unit daily [Active]; Linzess 72 mcg Oral 1 cap once daily [Active]; montelukast 10 mg Oral tab 1 tab nightly [Active]; Novolog 100 unit/mL Sub-Q soln 40 unit twice a day [Active]; [place]-3 1 gm Oral 2 tab twice a day [Active]; Pepcid 40 mg Oral tab 1 tab every 12 hours [Active]; rosuvastatin 10 mg Oral tab 1 tab nightly [Active]; sevelamer carbonate 800 mg Oral tab 1 tab 3 times per day [Active]; Vitamin D 5000IU Oral 2 tab daily [Active]; - PMHx: 02:08 Diabetes - IDDM; Dialysis (started 03/20/17); diabetic retinopathy; Hypertension; PE; fc RENAL FAILURE; - PSHx: 02:08 left arm fistula; fc - Immunization history:: Last tetanus immunization: up to date Flu vaccine is up to date. - Social history:: Smoking status: Patient/guardian denies using tobacco, Patient/guardian denies using alcohol, street drugs. - Ebola Screening: : Patient negative for fever greater than or equal to 101.5 degrees Fahrenheit, and additional compatible Ebola Virus Disease symptoms Patient denies exposure to infectious person Patient denies travel to an Ebola-affected area in the 21 days before illness onset. Screenin:50 Abuse screen: Denies threats or abuse. Nutritional screening: No deficits noted. Tuberculosis screening: No symptoms or risk factors identified. Fall Risk None identified. Assessment: 01:58 Respiratory: Airway is patent Respiratory effort is even, unlabored, Respiratory cc3 pattern is regular, symmetrical, Breath sounds are clear bilaterally. 02:44 Reassessment: Patient appears in no apparent distress at this time. Patient and/or cc3 family updated on plan of care and expected duration. Pain level reassessed. Patient is alert, oriented x 3, equal unlabored respirations, skin warm/dry/pink. Dr. Cruz discharged the patient home no prescription given. No IV cannula in situ. Patient left ER vitally stable by wheelchair escorted by me and the patient's . Patient denies pain at this time. Patient states feeling better. Patient states symptoms have improved. Vital Signs: 01:48 BP 143 / 53; Pulse 75; Resp 18; Temp 98.1(O); Pulse Ox 97% on R/A; Weight 136.08 kg fc (R); Height 5 ft. 11 in. (180.34 cm) (R); Pain 0/10; 02:00 BP 160 / 86; Pulse 74; Resp 17 S; Pulse Ox 96% on R/A; cc3 01:48 Body Mass Index 41.84 (136.08 kg, 180.34 cm) ED Course: 01:46 Patient arrived in ED. es 01:47 Juan Pablo Byrne DO is Private Physician. es 01:48 Arm band placed on Patient placed in an exam room, on a stretcher. fc 01:50 Patient has correct armband on for positive identification. Bed in low position. Call fc light in reach. 01:50 No provider procedures requiring assistance completed. fc 01:51 Bill Cruz MD is Attending Physician. pkl 01:58 Princess Moore is Primary Nurse. cc3 02:01 Triage completed. fc 02:22 Juan Pablo Byrne DO is Referral Physician. pkl 02:30 Patient did not have IV access during this emergency room visit. cc3 Administered Medications: 02:25 Drug: Simethicone 80 mg Route: PO; cc3 02:44 Follow up: Response: No adverse reaction; Marked relief of symptoms cc3 Outcome: 02:23 Discharge ordered by . pkl 02:30 Discharged to home via wheelchair, with family. cc3 02:30 Condition: stable 02:30 Discharge instructions given to patient, family, Instructed on discharge instructions, follow up and referral plans. Demonstrated understanding of instructions, follow-up care. 02:44 Patient left the ED. cc3 Signatures: Bill Cruz MD MD pkl Salyer, Edna es Chretien, Felicia, RN RN fc Princess Moore cc3
== END 2018-12-08 02:44 | disposition home or self-care (01) ==
LOC: ER 01:45
DX: K21.9 Gastro-esophageal reflux disease without esophagitis (principal); R09.3 Abnormal sputum; I12.0 Hypertensive chronic kidney disease with stage 5 chronic kidney disease or end stage renal disease; N18.6 End stage renal disease; E11.319 Type 2 diabetes mellitus with unspecified diabetic retinopathy without macular edema; Z79.4 Long term (current) use of insulin; Z79.01 Long term (current) use of anticoagulants; Z88.1 Allergy status to other antibiotic agents; Z88.2 Allergy status to sulfonamides
CPT/HCPCS: 99283

== ENCOUNTER 2019-01-03 03:52 | Emergency (ER) | payer OTHER, MEDICARE ==
[2019-01-03 04:37] LABS: Absolute Lymphocytes (CBC) 1.8 K/uL (0.7-4.9); Absolute Monocytes 0.6 K/uL (0.1-1.3); Absolute Neutrophil 9.4 K/uL (1.8-8.0); Basophils % 0.9 % (0-1.3); Eosinophils % 1.7 % (0-4.4); Hematocrit 33.3 % (39.6-49.0); Lymphocytes % 14.8 % (15.3-44.8); MPV 10.3 fL (7.6-11.3); RBC Red Blood Cell Count 3.49 M/uL (4.33-5.43)
[2019-01-03] MEDS ORDERED: NA CHLORIDE 0.9% 1,000 ML ONE (04:39)
[2019-01-03] MEDS ORDERED: PANTOPRAZOLE 40 MG INJ ONE (04:39)
[2019-01-03] MEDS ORDERED: ONDANSETRON 4 MG/2 ML VIAL ONE ×2 (04:39→07:32)
[2019-01-03] MEDS ORDERED: MORPHINE 2 MG/ML SYR ONE (04:39)
[2019-01-03 04:59] LABS: ALT/SGPT 33 U/L (12-78); AST/SGOT 19 U/L (15-37); Albumin 3.8 g/dL (3.4-5.0); Alkaline Phosphatase 105 U/L (45-117); BUN Blood Urea Nitrogen 21 mg/dL (7-18); Bicarbonate 27 mmol/L (21-32); Bilirubin Direct 0.1 mg/dL (0-0.2); Bilirubin Total 0.3 mg/dL (0.2-1.0); Glucose Level 248 mg/dL (74-106); Lipase 267 U/L (73-393); Magnesium 2.3 mg/dL (1.8-2.4); NT PRO-BNP 1028 pg/mL (<125); Potassium 4.6 mmol/L (3.5-5.1); Protein, Total 7.7 g/dL (6.4-8.2); Sodium Level 137 mmol/L (136-145); Troponin (Emerg Dept Use Only) < 0.02 ng/mL (0.0-0.045)
--- NOTE | 2019-01-03 05:28 | ER ---
Nurse's Notes [facility] Name: Ritika Mireles Age: 68 yrs Sex: Male : 1950 Arrival Date: 01/03/2019 Time: 03:53 Bed 6 Private MD: Juan Pablo Byrne Diagnosis: Chest pain, unspecified;End stage renal disease;Type 1 diabetes mellitus;Obesity, unspecified;Anemia, unspecified Presentation: 01/03 04:00 Presenting complaint: Patient states: I felt some pressure on top of tongue and chest rr5 area, at first I thought its just indigestion. started 1 1/2 to 2 hours ago. pain score of 6/10 denies jaw, arm or back pain. 04:00 Transition of care: patient was not received from another setting of care. Onset of rr5 symptoms was January 03, 2019 at 02:00. Risk Assessment: Do you want to hurt yourself or someone else? Patient reports no desire to harm self or others. Initial Sepsis Screen: Does the patient meet any 2 criteria? No. Patient's initial sepsis screen is negative. Does the patient have a suspected source of infection? No. Patient's initial sepsis screen is negative. Note with AV fistula at left arm, dialysis schedule is MWF. Care prior to arrival: None. 04:00 Method Of Arrival: Wheelchair rr5 04:00 Acuity: MICHELLE 3 rr5 Historical: - Allergies: 04:14 Sulfa (Sulfonamide Antibiotics); rr5 04:14 TETRACYCLINES; rr5 04:14 Bactrim; rr5 - Home Meds: 04:14 Cami 180 mg Oral tab 1 tab nightly [Active]; montelukast 10 mg Oral tab 1 tab rr5 nightly [Active]; Lantus 100 unit/mL Sub-Q soln 40 unit daily [Active]; Novolog 100 unit/mL Sub-Q soln 40 unit twice a day [Active]; rosuvastatin 10 mg Oral tab 1 tab nightly [Active]; Eliquis 2.5 mg Oral tab 1 tab daily [Active]; [place]-3 1 gm Oral 2 tab twice a day [Active]; gabapentin 300 mg Oral cap 1 cap 3 times per day [Active]; furosemide 80 mg Oral tab 1 tab once daily [Active]; Vitamin D 5000IU Oral 2 tab daily [Active]; sevelamer carbonate 800 mg Oral tab 1 tab 3 times per day [Active]; calcium acetate 667 mg Oral tab 3 tabs 3 times per day [Active]; Colace 100 mg Oral cap 2 caps 2 times per day [Active]; baclofen 10 mg Oral tab 1.5 tab daily [Active]; hydromorphone 2 mg Oral tab 1 tab twice a day [Active]; Pepcid 40 mg Oral tab 1 tab every 12 hours [Active]; Constulose 10 gram/15 mL Oral soln 30 mL twice a day [Active]; Linzess 72 mcg Oral 1 cap once daily [Active]; pantoprazole 40 mg oral TbEC 1 tab once daily [Active]; ramipril 5 mg Oral cap 1 cap once daily [Active]; - PMHx: 04:14 Diabetes - IDDM; diabetic retinopathy; Dialysis (started 03/20/17); Hypertension; PE; rr5 RENAL FAILURE; High Cholesterol; - PSHx: 04:14 cyst removal; Av fistula at left arm; rr5 - Immunization history:: Adult Immunizations up to date. - Social history:: Smoking status: Patient/guardian denies using tobacco, Patient/guardian denies using alcohol, street drugs. - Family history:: not pertinent. - Ebola Screening: : Patient negative for fever greater than or equal to 101.5 degrees Fahrenheit, and additional compatible Ebola Virus Disease symptoms Patient denies exposure to infectious person Patient denies travel to an Ebola-affected area in the 21 days before illness onset. Screenin:18 Abuse screen: Denies threats or abuse. Denies injuries from another. Nutritional lp1 screening: No deficits noted. Tuberculosis screening: No symptoms or risk factors identified. Fall Risk None identified. Assessment: 04:00 General: Appears in no apparent distress. uncomfortable, obese, Behavior is calm, rr5 cooperative, appropriate for age. Pain: Complains of pain in chest Pain does not radiate. Pain currently is 8 out of 10 on a pain scale. Quality of pain is described as pressure, Pain began 2 hours ago. Is intermittent. 04:00 Neuro: Level of Consciousness is awake, alert, obeys commands, Oriented to person, rr5 place, time, situation, Appropriate for age. Cardiovascular: Reports chest pain, Capillary refill < 3 seconds Patient's skin is warm and dry. Respiratory: Airway is patent Respiratory effort is even, unlabored, Respiratory pattern is regular, symmetrical. GI: Abdomen is round obese, Reports indigestion. : No signs and/or symptoms were reported regarding the genitourinary system. EENT: No signs and/or symptoms were reported regarding the EENT system. Derm: Skin is intact, Skin temperature is warm. Musculoskeletal: Capillary refill < 3 seconds, Range of motion: intact in all extremities, AV fistula at left arm noted. 04:35 Reassessment: Patient appears in no apparent distress at this time. No changes from rr5 previously documented assessment. awaiting for results. 04:55 Reassessment: Patient appears in no apparent distress at this time. No changes from rr5 previously documented assessment. complaints of dizziness and nauseated. vital signs checked BP 91/47 mmHg, put on oxygen therapy at 3 liters via nasal cannula. tried to put on Trendelenburg position patient cannot tolerate. position him back to semi hernandez's position. ED provider aware with order made and carried out. 05:40 Reassessment: Patient appears in no apparent distress at this time. No changes from rr5 previously documented assessment. persistent chest pain pain score of 10/10. ED provider aware with order made and carried out. 06:30 Reassessment: Patient appears in no apparent distress at this time. No changes from rr5 previously documented assessment. ED provider informed patient still in pain. Patient states symptoms have not improved. 07:05 Reassessment: Patient appears in no apparent distress at this time. endorsed to [address] vitally stable. IV cannula intact Dilaudid given upon transfer. for the patient still complaining of chest pain ED provider ordered to [facility]. Vital Signs: 04:00 BP 165 / 52; Pulse 88; Resp 19; Temp 99.4; Pulse Ox 98% ; Weight 136.08 kg; Height 5 rr ft. 11 in. (180.34 cm); Pain 6/10; 04:55 BP 91 / 47; Pulse 79; Resp 19; Pulse Ox 99% on 3 lpm NC; rr5 05:00 BP 94 / 46; Pulse 78; Resp 18; Pulse Ox 99% on 3 lpm NC; rr5 05:00 Pain 10/10; rr5 05:05 BP 96 / 36; Pulse 70; Resp 14; Pulse Ox 100% on 3 lpm NC; rr5 05:10 BP 90 / 38; Pulse 70; Resp 17; Pulse Ox 99% on 3 lpm NC; rr5 05:15 BP 97 / 40; Pulse 71; Resp 15; Pulse Ox 100% on 3 lpm NC; rr5 05:35 BP 112 / 91; Pulse 74; Resp 18; Pulse Ox 99% on 3 lpm NC; rr5 05:50 BP 112 / 60; Pulse 72; Resp 15; Temp 99; Pulse Ox 100% on 3 lpm NC; rr5 06:00 BP 119 / 40; Pulse 72; Resp 17; Temp 98.9; Pulse Ox 98% on 3 lpm NC; rr5 06:00 Pain 10/10; rr5 06:15 BP 135 / 92; Pulse 95; Resp 19; Pulse Ox 99% on 3 lpm NC; rr5 06:50 BP 121 / 65; Pulse 79; Resp 19; Temp 98.5; Pulse Ox 98% on 3 lpm NC; Pain 10/10; rr5 07:27 BP 135 / 46 RL; Pulse 76; Resp 18; Pulse Ox 100% on 3 lpm NC; tw2 04:00 Body Mass Index 41.84 (136.08 kg, 180.34 cm) rr5 ED Course: 03:53 Patient arrived in ED. am2 03:53 Juan Pablo Byrne DO is Private Physician. am2 03:55 Alf Munguia MD is Attending Physician. whitney 04:03 Sam Starr, FORREST is Primary Nurse. rr5 04:08 Triage completed. rr5 04:17 Missed attempt(s): 20 gauge in right antecubital area. Missed attempt(s): 20 gauge in lp1 right upper arm. 04:17 Patient has correct armband on for positive identification. Placed in gown. Bed in low lp1 position. air sampling and monitoring on. Pulse ox on. NIBP on. 04:18 Patient maintains SpO2 saturation greater than 95% on room air. lp1 04:18 Arm band placed on left wrist. lp1 04:20 Initial lab(s) drawn, by me, sent to lab. Inserted saline lock: 22 gauge in right rr5 antecubital area, using aseptic technique. Blood collected. 04:28 X-ray completed. Portable x-ray completed in exam room. Patient tolerated procedure kw well. 05:00 Notified ED physician of a critical lab result(s). Creatinine 5.2. lp1 05:22 XRAY Chest (1 view) In Process Unspecified. EDMS 05:26 Darryl Jaramillo MD is Hospitalizing Provider. whitney 05:29 EKG done, by ED staff, reviewed by Jesus Cerda. rr5 05:40 EKG done, by ED staff, reviewed by Jesus Cerda. rr5 07:15 No provider procedures requiring assistance completed. Patient transferred, IV remains rr5 in place. intact. Administered Medications: 04:20 Drug: NS 0.9% 1000 ml Route: IV; Rate: 75 ml/hr; Site: right antecubital; rr5 07:15 Follow up: Response: No adverse reaction; IV Status: Infusion continued upon transfer; rr5 IV Intake: 150ml 04:21 Drug: Zofran 4 mg Route: IVP; Site: right antecubital; rr5 05:20 Follow up: Response: No adverse reaction rr5 04:23 Drug: morphine 2 mg Route: IVP; Site: right antecubital; rr5 05:30 Follow up: Response: No adverse reaction rr5 04:32 Drug: ProTONIX 40 mg Route: IVP; Site: right antecubital; rr5 05:30 Follow up: Response: No adverse reaction rr5 05:15 Drug: NS 0.9% 250 ml Route: IV; Rate: bolus; Site: right antecubital; rr5 06:00 Follow up: Response: No adverse reaction; IV Status: Completed infusion; IV Intake: rr5 250ml 05:40 Drug: fentaNYL (PF) 25 mcg {Note: BP 112/91mmHg.} Route: IVP; Site: right antecubital; rr5 06:40 Follow up: Response: No adverse reaction rr5 06:08 Drug: fentaNYL (PF) 25 mcg Route: IVP; Site: right antecubital; rr5 07:33 Follow up: Response: No adverse reaction rr5 06:25 Drug: GI Cocktail without - (Maalox Suspension 30 ml, Lidocaine Liquid 2 % 15 rr5 ml) Route: PO; 07:15 Follow up: Response: No adverse reaction rr5 06:38 CANCELLED (Duplicate Order): fentaNYL (PF) 25 mcg IVP once lp1 06:46 Drug: Eliquis 2.5 mg Route: PO; lp1 07:15 Follow up: Response: No adverse reaction rr5 06:46 Drug: fentaNYL (PF) 25 mcg Route: IVP; Site: right antecubital; lp1 07:15 Follow up: Response: No adverse reaction rr5 06:46 Drug: Lopressor 25 mg Route: PO; lp1 07:15 Follow up: Response: Other; administered upon transfer rr5 07:08 Drug: Dilaudid 0.5 mg Route: IVP; Site: right antecubital; tw2 07:20 Follow up: Response: No adverse reaction; Pain is unchanged, physician notified tw2 07:17 Not Given (md orders): fentaNYL (PF) 25 mcg IVP once tw2 07:20 Drug: Zofran 4 mg Route: IVP; Site: right antecubital; tw2 07:27 Follow up: Response: No adverse reaction tw2 07:23 Drug: Dilaudid 1 mg Route: IVP; Site: right antecubital; tw2 07:26 Follow up: Response: No adverse reaction; Pain is decreased tw2 07:37 Not Given (Hemodynamic Parameters): NS 0.9% 250 ml IV at bolus once rr5 Intake: 06:00 IV: 250ml; Total: 250ml. rr5 07:15 IV: 150ml; Total: 400ml. rr5 Outcome: 05:27 Decision to Hospitalize by Provider. whitney 06:03 ER care complete, transfer ordered by . [facility] 06:50 Transferred by ground EMS to [facility], Transfer form completed. rr5 Note: call made to [facility] 06:50 Condition: stable rr5 06:50 Instructed on the need for transfer. 07:28 Patient left the ED. tw2 Signatures: Dispatcher [employer] EDMS Alf Munguia MD MD cha Whitley, Kimberlee kw Pena, Laura, RN RN lp1 Adrianna Cordero RN RN tw2 Tonia Llanos am2 Sam Starr RN RN rr5
--- NOTE | 2019-01-03 05:28 | EDPHYS ---
Physician Documentation [facility] Name: Ritika Mireles Age: 68 yrs Sex: Male : 1950 Arrival Date: 01/03/2019 Time: 03:53 Bed 6 Private MD: Juan Pablo Byrne ED Physician Alf Munguia HPI: 01/03 04:12 This 68 yrs old Male presents to ER via Wheelchair with complaints of Chest whitney Pain > 30 y/o. 04:12 The patient or guardian reports chest pain that is located primarily in the substernal whitney area. Onset: 1 day(s) ago. The pain does not radiate. Associated signs and symptoms: The patient has no apparent associated signs or symptoms. The chest pain is described as a pressure, squeezing. Modifying factors: The symptoms are alleviated by nothing. the symptoms are aggravated by nothing. Severity of pain: At its worst the pain was mild in the emergency department the pain is unchanged. The patient has not experienced similar symptoms in the past. Historical: - Allergies: 04:14 Sulfa (Sulfonamide Antibiotics); rr5 04:14 TETRACYCLINES; rr5 04:14 Bactrim; rr5 - Home Meds: 04:14 Cami 180 mg Oral tab 1 tab nightly [Active]; montelukast 10 mg Oral tab 1 tab rr5 nightly [Active]; Lantus 100 unit/mL Sub-Q soln 40 unit daily [Active]; Novolog 100 unit/mL Sub-Q soln 40 unit twice a day [Active]; rosuvastatin 10 mg Oral tab 1 tab nightly [Active]; Eliquis 2.5 mg Oral tab 1 tab daily [Active]; [place]-3 1 gm Oral 2 tab twice a day [Active]; gabapentin 300 mg Oral cap 1 cap 3 times per day [Active]; furosemide 80 mg Oral tab 1 tab once daily [Active]; Vitamin D 5000IU Oral 2 tab daily [Active]; sevelamer carbonate 800 mg Oral tab 1 tab 3 times per day [Active]; calcium acetate 667 mg Oral tab 3 tabs 3 times per day [Active]; Colace 100 mg Oral cap 2 caps 2 times per day [Active]; baclofen 10 mg Oral tab 1.5 tab daily [Active]; hydromorphone 2 mg Oral tab 1 tab twice a day [Active]; Pepcid 40 mg Oral tab 1 tab every 12 hours [Active]; Constulose 10 gram/15 mL Oral soln 30 mL twice a day [Active]; Linzess 72 mcg Oral 1 cap once daily [Active]; pantoprazole 40 mg oral TbEC 1 tab once daily [Active]; ramipril 5 mg Oral cap 1 cap once daily [Active]; - PMHx: 04:14 Diabetes - IDDM; diabetic retinopathy; Dialysis (started 03/20/17); Hypertension; PE; rr5 RENAL FAILURE; High Cholesterol; - PSHx: 04:14 cyst removal; Av fistula at left arm; rr5 - Immunization history:: Adult Immunizations up to date. - Social history:: Smoking status: Patient/guardian denies using tobacco, Patient/guardian denies using alcohol, street drugs. - Family history:: not pertinent. - Ebola Screening: : Patient negative for fever greater than or equal to 101.5 degrees Fahrenheit, and additional compatible Ebola Virus Disease symptoms Patient denies exposure to infectious person Patient denies travel to an Ebola-affected area in the 21 days before illness onset. ROS: 04:12 Constitutional: Negative for fever, chills, and weight loss, Eyes: Negative for injury, whitney pain, redness, and discharge, ENT: Negative for injury, pain, and discharge, Neck: Negative for injury, pain, and swelling, Respiratory: Negative for shortness of breath, cough, wheezing, and pleuritic chest pain, Abdomen/GI: Negative for abdominal pain, nausea, vomiting, diarrhea, and constipation, Back: Negative for injury and pain, : Negative for injury, bleeding, discharge, and swelling, MS/Extremity: Negative for injury and deformity, Skin: Negative for injury, rash, and discoloration, Neuro: Negative for headache, weakness, numbness, tingling, and seizure, Psych: Negative for depression, anxiety, suicide ideation, homicidal ideation, and hallucinations, Allergy/Immunology: Negative for hives, rash, and allergies, Endocrine: Negative for neck swelling, polydipsia, polyuria, polyphagia, and marked weight changes, Hematologic/Lymphatic: Negative for swollen nodes, abnormal bleeding, and unusual bruising. 04:12 Cardiovascular: Positive for chest pain. 04:12 MS/extremity: Positive for Exam: 04:14 Constitutional: This is a well developed, well nourished patient who is awake, alert, whitney and in no acute distress. Head/Face: Normocephalic, atraumatic. Eyes: Pupils equal round and reactive to light, extra-ocular motions intact. Lids and lashes normal. Conjunctiva and sclera are non-icteric and not injected. Cornea within normal limits. Periorbital areas with no swelling, redness, or edema. ENT: Nares patent. No nasal discharge, no septal abnormalities noted. Tympanic membranes are normal and external auditory canals are clear. Oropharynx with no redness, swelling, or masses, exudates, or evidence of obstruction, uvula midline. Mucous membranes moist. Neck: Trachea midline, no thyromegaly or masses palpated, and no cervical lymphadenopathy. Supple, full range of motion without nuchal rigidity, or vertebral point tenderness. No Meningismus. Chest/axilla: Normal chest wall appearance and motion. Nontender with no deformity. No lesions are appreciated. Cardiovascular: Regular rate and rhythm with a normal S1 and S2. No gallops, murmurs, or rubs. Normal PMI, no JVD. No pulse deficits. Respiratory: Lungs have equal breath sounds bilaterally, clear to auscultation and percussion. No rales, rhonchi or wheezes noted. No increased work of breathing, no retractions or nasal flaring. Abdomen/GI: Soft, non-tender, with normal bowel sounds. No distension or tympany. No guarding or rebound. No evidence of tenderness throughout. Back: No spinal tenderness. No costovertebral tenderness. Full range of motion. Skin: Warm, dry with normal turgor. Normal color with no rashes, no lesions, and no evidence of cellulitis. MS/ Extremity: Pulses equal, no cyanosis. Neurovascular intact. Full, normal range of motion. Neuro: Awake and alert, GCS 15, oriented to person, place, time, and situation. Cranial nerves II-XII grossly intact. Motor strength 5/5 in all extremities. Sensory grossly intact. Cerebellar exam normal. Normal gait. Psych: Awake, alert, with orientation to person, place and time. Behavior, mood, and affect are within normal limits. Vital Signs: 04:00 BP 165 / 52; Pulse 88; Resp 19; Temp 99.4; Pulse Ox 98% ; Weight 136.08 kg; Height 5 rr5 ft. 11 in. (180.34 cm); Pain 6/10; 04:55 BP 91 / 47; Pulse 79; Resp 19; Pulse Ox 99% on 3 lpm NC; rr5 05:00 BP 94 / 46; Pulse 78; Resp 18; Pulse Ox 99% on 3 lpm NC; rr5 05:00 Pain 10/10; rr5 05:05 BP 96 / 36; Pulse 70; Resp 14; Pulse Ox 100% on 3 lpm NC; rr5 05:10 BP 90 / 38; Pulse 70; Resp 17; Pulse Ox 99% on 3 lpm NC; rr5 05:15 BP 97 / 40; Pulse 71; Resp 15; Pulse Ox 100% on 3 lpm NC; rr5 05:35 BP 112 / 91; Pulse 74; Resp 18; Pulse Ox 99% on 3 lpm NC; rr5 05:50 BP 112 / 60; Pulse 72; Resp 15; Temp 99; Pulse Ox 100% on 3 lpm NC; rr5 06:00 BP 119 / 40; Pulse 72; Resp 17; Temp 98.9; Pulse Ox 98% on 3 lpm NC; rr5 06:00 Pain 10/10; rr5 06:15 BP 135 / 92; Pulse 95; Resp 19; Pulse Ox 99% on 3 lpm NC; rr5 06:50 BP 121 / 65; Pulse 79; Resp 19; Temp 98.5; Pulse Ox 98% on 3 lpm NC; Pain 10/10; rr5 07:27 BP 135 / 46 RL; Pulse 76; Resp 18; Pulse Ox 100% on 3 lpm NC; tw2 04:00 Body Mass Index 41.84 (136.08 kg, 180.34 cm) rr5 MDM: 04:04 Patient medically screened. [facility] 04:15 Data reviewed: vital signs, nurses notes, lab test result(s), EKG, radiologic studies, whitney plain films. 01/03 04:12 Order name: Basic Metabolic Panel; Complete Time: 05:13 whitney 01/03 04:12 Order name: CBC with Diff; Complete Time: 05: whitney 01/03 04:12 Order name: LFT's; Complete Time: : [facility] 01/03 04:12 Order name: Magnesium; Complete Time: 05: [facility] 01/03 04:12 Order name: NT PRO-BNP; Complete Time: 05:13 [facility] 01/03 04:12 Order name: PT-INR; Complete Time: 05:13 [facility] 01/03 04:12 Order name: Troponin (emerg Dept Use Only); Complete Time: 05:13 [facility] 01/03 04:12 Order name: XRAY Chest (1 view) 01/03 04:12 Order name: Lipase; Complete Time: 05:13 [facility] 01/03 04:12 Order name: EKG; Complete Time: 04:13 [facility] 01/03 04:12 Order name: Cardiac monitoring; Complete Time: 04:16 [facility] 01/03 06:47 Order name: EKG; Complete Time: 06:48 [facility] 01/03 04:12 Order name: EKG - Nurse/Tech; Complete Time: 04:16 [facility] 01/03 04:12 Order name: IV Saline Lock; Complete Time: 04:32 [facility] 01/03 04:12 Order name: Labs collected and sent; Complete Time: 04:33 [facility] 01/03 04:12 Order name: O2 Per Protocol; Complete Time: 04:16 [facility] 01/03 04:12 Order name: O2 Sat Monitoring; Complete Time: 04:17 [facility] 01/03 06:47 Order name: EKG - Nurse/Tech; Complete Time: 06:52 [facility] Administered Medications: 04:20 Drug: NS 0.9% 1000 ml Route: IV; Rate: 75 ml/hr; Site: right antecubital; rr5 07:15 Follow up: Response: No adverse reaction; IV Status: Infusion continued upon transfer; rr5 IV Intake: 150ml 04:21 Drug: Zofran 4 mg Route: IVP; Site: right antecubital; rr5 05:20 Follow up: Response: No adverse reaction rr5 04:23 Drug: morphine 2 mg Route: IVP; Site: right antecubital; rr5 05:30 Follow up: Response: No adverse reaction rr5 04:32 Drug: ProTONIX 40 mg Route: IVP; Site: right antecubital; rr5 05:30 Follow up: Response: No adverse reaction rr5 05:15 Drug: NS 0.9% 250 ml Route: IV; Rate: bolus; Site: right antecubital; rr5 06:00 Follow up: Response: No adverse reaction; IV Status: Completed infusion; IV Intake: rr5 250ml 05:40 Drug: fentaNYL (PF) 25 mcg {Note: BP 112/91mmHg.} Route: IVP; Site: right antecubital; rr5 06:40 Follow up: Response: No adverse reaction rr5 06:08 Drug: fentaNYL (PF) 25 mcg Route: IVP; Site: right antecubital; rr5 07:33 Follow up: Response: No adverse reaction rr5 06:25 Drug: GI Cocktail without - (Maalox Suspension 30 ml, Lidocaine Liquid 2 % 15 rr5 ml) Route: PO; 07:15 Follow up: Response: No adverse reaction rr5 06:38 CANCELLED (Duplicate Order): fentaNYL (PF) 25 mcg IVP once lp1 06:46 Drug: Eliquis 2.5 mg Route: PO; lp1 07:15 Follow up: Response: No adverse reaction rr5 06:46 Drug: fentaNYL (PF) 25 mcg Route: IVP; Site: right antecubital; lp1 07:15 Follow up: Response: No adverse reaction rr5 06:46 Drug: Lopressor 25 mg Route: PO; lp1 07:15 Follow up: Response: Other; administered upon transfer rr5 07:08 Drug: Dilaudid 0.5 mg Route: IVP; Site: right antecubital; tw2 07:20 Follow up: Response: No adverse reaction; Pain is unchanged, physician notified tw2 07:17 Not Given (md orders): fentaNYL (PF) 25 mcg IVP once tw2 07:20 Drug: Zofran 4 mg Route: IVP; Site: right antecubital; tw2 07:27 Follow up: Response: No adverse reaction tw2 07:23 Drug: Dilaudid 1 mg Route: IVP; Site: right antecubital; tw2 07:26 Follow up: Response: No adverse reaction; Pain is decreased tw2 07:37 Not Given (Hemodynamic Parameters): NS 0.9% 250 ml IV at bolus once rr5 Disposition: 01/03/19 06:03 Transfer ordered to [facility]. Diagnosis are Chest pain, unspecified, End stage renal disease, Type 1 diabetes mellitus, Obesity, unspecified, Anemia, unspecified. - Reason for transfer: Higher level of care. - Accepting physician is to [facility] , cardiology consult. - Condition is Fair. - Problem is new. - Symptoms have improved. Signatures: Dispatcher [employer] EDMS Alf Munguia MD MD whitney Elissa Lindo, RN RN lp1 Adrianna Cordero RN RN tw2 Sam Starr, RN RN rr5 Corrections: (The following items were deleted from the chart) 05:56 05:27 Hospitalization Ordered by Darryl Jaramillo MD for Inpatient Admission. Preliminary whitney diagnosis is Chest pain, unspecified; Type 1 diabetes mellitus; End stage renal disease; Obesity, unspecified. Bed requested for Intensive Care Unit. Status is Inpatient Admission. Condition is Fair. Problem is new. Symptoms have improved. UTI on Admission? No. whitney 06:13 06:03 01/03/2019 06:03 Transfer ordered to [facility]. Diagnosis is whitney Chest pain, unspecified; End stage renal disease; Type 1 diabetes mellitus; Obesity, unspecified. Reason for transfer: Higher level of care. Accepting physician is to [facility] , cardiology consult. Condition is Fair. Problem is new. Symptoms have improved. whitney 06:38 06:37 fentaNYL (PF) 25 mcg IVP once ordered. lp1 lp1 07:28 06:13 01/03/2019 06:03 Transfer ordered to [facility]. Diagnosis is tw2 Chest pain, unspecified; End stage renal disease; Type 1 diabetes mellitus; Obesity, unspecified; Anemia, unspecified. Reason for transfer: Higher level of care. Accepting physician is to [facility] , cardiology consult. Condition is Fair. Problem is new. Symptoms have improved. whitney
[2019-01-03] MEDS ORDERED: FENTANYL CITR 100 MCG/2 ML ONE ×2 (05:52→06:53)
[2019-01-03] MEDS ORDERED: LIDOCAINE VISCOUS 2% SOLN 15 ML UDC ONE (06:24)
[2019-01-03] MEDS ORDERED: MAGNE/ALUM HYDROXD 30 ML UCUP ONE (06:24)
[2019-01-03] MEDS ORDERED: APIXABAN 2.5 MG TABLET ONE (06:49)
[2019-01-03] MEDS ORDERED: METOPROLOL TAR 25 MG TAB ONE (06:53)
[2019-01-03] MEDS ORDERED: HYDROMORPHONE HCL 0.5 MG/0.5 ML INJ ONE (07:20)
[2019-01-03] MEDS ORDERED: HYDROMORPHONE HCL 1 MG/ML INJ ONE (07:32)
--- NOTE | 2019-01-03 08:26 | RAD REPORT ---
EXAM DESCRIPTION: RAD - Chest Single View - 01/03/2019 5:22 am CLINICAL HISTORY: CHEST PAIN Chest pain. COMPARISON: Chest Single View dated 12/07/2018; Chest Single View dated 04/08/2017; Chest Pa And Lat (2 Views) dated 03/20/2017 FINDINGS: Portable technique limits examination quality. The lungs are grossly clear. The heart is upper limit of normal in size. No displaced fractures. IMPRESSION: No acute intrathoracic process suspected.
--- NOTE | 2019-01-03 17:08 | EKG ---
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
--- NOTE | 2019-01-03 17:08 | EKG ---
Test Date: 2019-01-03 Test Time: 05:29:01 [employer] House Inspector: [email or web address] MEASUREMENT RESULTS: Intervals: Rate: 73 [place]: 252 QRSD: 116 QT: 370 QTc: 407 [place]: P: 118 NM: 252 QRS: -68 T: 31 INTERPRETIVE STATEMENTS: Sinus rhythm with 1st degree AV block Left axis deviation Low voltage QRS Right bundle branch block Possible Anterolateral infarct, age undetermined Abnormal ECG Compared to ECG 01/03/2019 05:28:22 Myocardial infarct finding still present Electronically Signed On 01-03-19 17:07:12 CDT by Marin Bradley
--- NOTE | 2019-01-03 17:08 | EKG ---
Test Date: 2019-01-03 Test Time: 05:41:02 Faculty Instructor: [email or web address] MEASUREMENT RESULTS: Intervals: Rate: 74 [place]: 230 QRSD: 132 QT: 398 QTc: 441 [place]: P: 66 [place]: 230 QRS: -65 T: 70 INTERPRETIVE STATEMENTS: Sinus rhythm with 1st degree AV block with premature atrial complexes Right bundle branch block Left axis Abnormal ECG Compared to ECG 01/03/2019 05:29:01 Atrial premature complex(es) now present Right bundle-branch block now present Myocardial infarct finding no longer present Electronically Signed On 01-03-19 17:06:19 CDT by Marin Bradley
--- NOTE | 2019-01-03 17:08 | EKG ---
Test Date: 2019-01-03 Test Time: 05:28:22 Systems Qa Analyst: [email or web address] MEASUREMENT RESULTS: Intervals: Rate: 75 [place]: 252 QRSD: 116 QT: 370 QTc: 413 [place]: P: 41 [place]: 252 QRS: -69 T: 67 INTERPRETIVE STATEMENTS: Sinus rhythm with 1st degree AV block Left axis deviation Low voltage QRS Right bundle branch block Possible Anterolateral infarct, age undetermined Abnormal ECG Compared to ECG 01/03/2019 03:58:54 Left-axis deviation now present Low QRS voltage now present Myocardial infarct finding now present Electronically Signed On 01-03-19 17:07:47 CDT by Marin Bradley
--- NOTE | 2019-01-03 17:09 | EKG ---
Test Date: 2019-01-03 Test Time: 03:58:54 Meeting/Event Planner: [email or web address] MEASUREMENT RESULTS: Intervals: Rate: 89 [place]: 228 QRSD: 142 QT: 382 QTc: 464 [place]: P: 50 AR: 228 QRS: -66 T: 68 INTERPRETIVE STATEMENTS: Sinus rhythm with 1st degree AV block Right bundle branch block Left axis Abnormal ECG Compared to ECG 12/07/2018 21:55:10 Sinus arrhythmia no longer present Electronically Signed On 01-03-19 17:08:28 CDT by Marin Bradley
== END 2019-01-03 07:28 | disposition short-term general hospital (02) ==
LOC: ER 03:52
DX: R07.9 Chest pain, unspecified (principal); E10.22 Type 1 diabetes mellitus with diabetic chronic kidney disease; I12.0 Hypertensive chronic kidney disease with stage 5 chronic kidney disease or end stage renal disease; N18.6 End stage renal disease; E66.9 Obesity, unspecified; Z68.41 Body mass index [BMI] 40.0-44.9, adult; D64.9 Anemia, unspecified; Z99.2 Dependence on renal dialysis; Z79.4 Long term (current) use of insulin; Z88.1 Allergy status to other antibiotic agents; Z88.2 Allergy status to sulfonamides
CPT/HCPCS: 96365; 96361; 93005 ×5; 85025; 80048; 36415; 83735; 85610; 80076; 84484; 83690; 83880; 71045; 96375; 99285; C9113; J3010 ×2; J2270; J1170 ×2; J7030; J2405 ×2

== ENCOUNTER 2019-01-08 19:17 | Emergency (ER) | payer OTHER, MEDICARE ==
--- OUTSIDE RECORDS SUMMARY | 2019-01-08 19:20 | XMS REPORT | Clinical Summary ---
:1950 Author Organization [facility] Address [address] [place] [address] Care Team Providers Name Role Phone Unavailable Primary Care Provider Unavailable Allergies Active Allergy Reactions Severity Noted Date Comments Seasonal Allergies Other (See Comments) 01/03/2019 Itchy eyes, runny nose Sulfa (Sulfonamide Hives 01/03/2019 Antibiotics) Tetracyclines Rash Low 01/03/2019 welps Medications Medication Sig Dispensed Refills Start End Status Date Date fexofenadine Take 180 mg by 0 Active (JULISSA) 180 MG mouth nightly. tablet montelukast Take 10 mg by 0 Active (SINGULAIR) 10 mg mouth nightly. tablet insulin glargine Inject 40 Units 0 Active (LANTUS) 100 subcutaneously unit/mL injection daily Use as directed . rosuvastatin Take 10 mg by 0 Active (CRESTOR) 10 MG mouth nightly. tablet HYDROmorphone Take 2 mg by mouth 0 Active (DILAUDID) 2 MG daily as needed tablet for Pain . famotidine Take 40 mg by 0 Active (PEPCID) 40 MG mouth every 12 tablet (twelve) hours. lactulose Take 30 g by mouth 0 Active (CHRONULAC) 10 2 (two) times gram/15 mL (15 mL) daily . solution pantoprazole Take 40 mg by 0 Active (PROTONIX) 40 MG mouth daily. tablet ramipril (ALTACE) Take 2.5 mg by 0 Active 5 MG capsule mouth daily . omega-3 fatty Take 2 g by mouth 0 Active acids-fish oil 2 (two) times 340-1,000 mg Cap daily . per capsule furosemide (LASIX) Take 80 mg by 0 Active 80 MG tablet mouth daily. cholecalciferol, Take 10,000 Units 0 Active vitamin D3, 5,000 by mouth daily . unit Tab sevelamer Take 800 mg by 0 Active (RENVELA) 800 mg mouth 3 (three) tablet times daily with meals. LINZESS 72 mcg Cap Take 72 mcg by 3 Active mouth daily. 9 docusate sodium Take 100 mg by 0 Active (COLACE) 100 MG mouth 2 (two) capsule times daily. ciclopirox 1 application 1 Active (LOPROX) 0.77 % daily. 9 cream apixaban (ELIQUIS) Take 1 tablet (5 180 tablet 0 Active 5 mg Tab tablet mg total) by mouth 9 2 (two) times daily. gabapentin Take 1 capsule 270 capsule 3 Active (NEURONTIN) 300 MG (300 mg total) by 9 020 capsule mouth 3 (three) times daily. amiodarone amiodarone 200mg 90 tablet 0 Active (PACERONE) 200 MG twice daily for 9 tablet one week (until 01/14/10) then 200mg daily. ticagrelor Take for 12 months 90 tablet 0 Active (BRILINTA) 90 mg After 12 months stop. 9 Tab tablet aspirin 81 MG Take for 3 months, then STOP months 4-12 90 tablet 0 Active chewable tablet Restart after 12 months. 9 metoprolol Take 0.5 tablets 180 tablet 0 Active (LOPRESSOR) 25 MG (12.5 mg total) by 9 020 tablet mouth 2 (two) times daily. apixaban (ELIQUIS) Take 1 tablet (2.5 180 tablet 0 Active 2.5 mg Tab tablet mg total) by mouth 9 2 (two) times daily. insulin aspart Inject 40 Units 0 Discontinued U-100 (NOVOLOG) subcutaneously 2 019 100 unit/mL (two) times daily. injection docusate sodium Take 100 mg by 0 Discontinued (COLACE) 100 MG mouth 2 (two) 019 capsule times daily. baclofen Take 5 mg by mouth 0 Discontinued (LIORESAL) 10 MG daily. 019 tablet gabapentin Take 600 mg by 0 Discontinued (NEURONTIN) 300 MG mouth 3 (three) 019 capsule times daily On dialysis days (MWF). calcium acetate Take 2,001 mg by 0 Discontinued (PHOSLO) 667 mg mouth 3 (three) 019 capsule times daily with meals . apixaban (ELIQUIS) Take 2.5 mg by 0 Discontinued 2.5 mg Tab tablet mouth daily. 7 019 baclofen Take 5 mg by mouth 0 Discontinued (LIORESAL) 10 MG 2 (two) times 019 tablet daily. clindamycin APPLY ON THE SKIN 1 Discontinued (CLEOCIN T) 1 % TWICE A DAY TO 9 019 lotion NECK AND JAWLINE NEEDED FOR FLARES hydrocortisone 2.5 PLEASE SEE 1 Discontinued % cream ATTACHED FOR 9 019 DETAILED DIRECTIONS Active Problems Problem Noted Date Chest pain 01/03/2019 ESRD on hemodialysis 01/03/2019 Fever, unspecified fever cause Hypotension due to hypovolemia Encounters Date Type Specialty Care Team Description 01/05/2019 Travel 01/03/2019 Anesthesia Event Raj Segura MD 01/03/2019 Surgery Agustin Rios MD L CATH & PCI 01/03/2019 - Hospital Encounter Cardiology [place], Unstable angina pectoris (HCC) (Primary Dx); 01/08/2019 Steve-Fernando Stable angina pectoris (HCC); MD Mg ESRD on hemodialysis ([facility]); Nikky Lr MD SOB (shortness of breath); Jyotsna Guerrero, Hypervolemia, unspecified hypervolemia type; Unstable angina ([facility]); [place], Status post insertion of drug-eluting stent into left anterior descending (LAD) artery for coronary artery disease; Rebecca Ferro, Percutaneous transluminal coronary angioplasty (PTCA) within last 14 to 24 months; Other specified hypotension; Hyperkalemia; NSTEMI (non-ST elevated myocardial infarction) ([facility]); Coronary artery disease involving samish coronary artery of samish heart with unstable angina pectoris (HCC); Paroxysmal atrial fibrillation ([facility]); Hypotension due to hypovolemia 01/03/2019 Orders Only General Internal Medicine after 01/07/2018 Family History Medical History Relation Name Comments Cancer Brother Cancer Father Heart disease Mother Relation Name Status Comments Brother Father Mother Social History Tobacco Use Types Packs/Day Years Used Date Never Smoker Smokeless Tobacco: Never Used Alcohol Use Drinks/Week oz/Week Comments No Alcohol Habits Answer Date Recorded How often do you have a drink containing alcohol? Never 01/03/2019 How many drinks containing alcohol do you have on a typical Not asked day when you are drinking? How often do you have six or more drinks on one occasion? Not asked Sex Assigned at Date Recorded Not on file Job Start Date Occupation Industry Not on file Not on file Not on file Travel History Travel Start Travel End No recent travel history available. Last Filed Vital Signs Vital Sign Reading Time Taken Blood Pressure 97/52 01/08/2019 3:40 PM CDT Pulse 86 01/08/2019 3:40 PM CDT Temperature 36.6 C (97.9 F) 01/08/2019 3:40 PM CDT Respiratory Rate 18 01/08/2019 3:40 PM CDT Oxygen Saturation 94% 01/08/2019 3:40 PM CDT Inhaled Oxygen Concentration 21% 01/04/2019 4:14 PM CDT Weight 136.9 kg (301 lb 11.2 oz) 01/07/2019 6:00 AM CDT Height 180.3 cm (5' 11") 01/03/2019 9:22 AM CDT Body Mass Index 42.08 01/07/2019 6:00 AM CDT Plan of Treatment Not on file Implants Implanted Type Area Vp Integrity Device Identifier Shelf Model / Expiration Serial / Date Lot Stent Synergy Otw [id number] - [id number] IMPLANTS N/A: LUDLOW [id number] 04/03/2020 [id number] / Implanted: Qty: 1 on 01/03/2019 by Agustin Rios MD Heart SCI:INTERV / CARDIOLOGY [id number] Stent Synergy Otw [id number] - [id number] IMPLANTS N/A: LUDLOW [id number] 08/12/2020 [id number] / Implanted: Qty: 1 on 01/03/2019 by Agustin Rios MD Heart SCI:INTERV / CARDIOLOGY [id number] Stent Synergy Otw [id number] - [id number] IMPLANTS N/A: LUDLOW [id number] 05/07/2020 [id number] / Implanted: Qty: 1 on 01/03/2019 by Agustin Rios MD Heart SCI:INTERV / CARDIOLOGY [id number] Procedures Procedure Name Priority Date/Time Associated Comments Diagnosis XR CHEST 1 VIEW Routine 01/08/2019 3:10 Results for this PORTABLE/BEDSIDE PM CDT procedure are in the results section. POCT-GLUCOSE METER Routine 01/08/2019 11:36 Results for this AM CDT procedure are in the results section. HEMODIALYSIS INPATIENT Routine 01/08/2019 8:50 AM CDT BASIC METABOLIC PANEL Routine 01/08/2019 5:00 Results for this (7) AM CDT procedure are in the results section. CBC (HEMOGRAM ONLY) Routine 01/08/2019 5:00 Results for this AM CDT procedure are in the results section. POCT-GLUCOSE METER Routine 01/07/2019 9:42 Results for this PM CDT procedure are in the results section. POCT-GLUCOSE METER Routine 01/07/2019 6:19 Results for this PM CDT procedure are in the results section. HEMODIALYSIS INPATIENT Routine 01/07/2019 2:17 PM CDT POCT-GLUCOSE METER Routine 01/07/2019 11:19 Results for this AM CDT procedure are in the results section. XR CHEST 1 VIEW Routine 01/07/2019 9:38 Results for this PORTABLE/BEDSIDE AM CDT procedure are in the results section. POCT-GLUCOSE METER Routine 01/07/2019 8:07 Results for this AM CDT procedure are in the results section. POCT-GLUCOSE METER Routine 01/06/2019 9:25 Results for this PM CDT procedure are in the results section. POCT-GLUCOSE METER Routine 01/06/2019 5:11 Results for this PM CDT procedure are in the results section. POCT-GLUCOSE METER Routine 01/06/2019 2:32 Results for this PM CDT procedure are in the results section. POCT-GLUCOSE METER Routine 01/06/2019 10:47 Results for this AM CDT procedure are in the results section. POCT-GLUCOSE METER Routine 01/06/2019 8:04 Results for this AM CDT procedure are in the results section. XR CHEST 1 VIEW Routine 01/06/2019 6:46 Results for this PORTABLE/BEDSIDE AM CDT procedure are in the results section. VANCOMYCIN LEVEL, Routine 01/06/2019 6:17 Results for this RANDOM AM CDT procedure are in the results section. MAGNESIUM Routine 01/06/2019 6:17 Results for this AM CDT procedure are in the results section. BASIC METABOLIC PANEL Routine 01/06/2019 6:17 Results for this (7) AM CDT procedure are in the results section. POCT-GLUCOSE METER Routine 01/05/2019 9:44 Results for this PM CDT procedure are in the results section. POCT-GLUCOSE METER Routine 01/05/2019 4:18 Results for this PM CDT procedure are in the results section. POCT-GLUCOSE METER Routine 01/05/2019 12:13 Results for this PM CDT procedure are in the results section. POCT-GLUCOSE METER Routine 01/05/2019 8:18 Results for this AM CDT procedure are in the results section. XR CHEST 1 VIEW Routine 01/05/2019 5:36 Results for this PORTABLE/BEDSIDE AM CDT procedure are in the results section. CBC W/PLT COUNT & AUTO Routine 01/05/2019 4:09 Results for this DIFFERENTIAL AM CDT procedure are in the results section. LACTIC ACID, ARTERIAL Routine 01/05/2019 4:09 Results for this AM CDT procedure are in the results section. BLOOD GAS, ARTERIAL Routine 01/05/2019 4:09 Results for this AM CDT procedure are in the results section. MAGNESIUM Routine 01/05/2019 4:09 Results for this AM CDT procedure are in the results section. BASIC METABOLIC PANEL Routine 01/05/2019 4:09 Results for this (7) AM CDT procedure are in the results section. CBC W/PLT COUNT & AUTO Routine 01/05/2019 4:09 Results for this DIFFERENTIAL AM CDT procedure are in the results section. BLOOD CULTURE Routine 01/05/2019 4:08 AM CDT BLOOD CULTURE Routine 01/05/2019 3:35 AM CDT CBC W/PLT COUNT & AUTO STAT 01/04/2019 10:17 Results for this DIFFERENTIAL PM CDT procedure are in the results section. CBC W/PLT COUNT & AUTO STAT 01/04/2019 10:17 Results for this DIFFERENTIAL PM CDT procedure are in the results section. MAGNESIUM STAT 01/04/2019 10:17 Results for this PM CDT procedure are in the results section. BASIC METABOLIC PANEL STAT 01/04/2019 10:17 Results for this (7) PM CDT procedure are in the results section. POCT-GLUCOSE METER Routine 01/04/2019 10:08 Results for this PM CDT procedure are in the results section. ECG 12-LEAD Routine 01/04/2019 9:46 Results for this PM CDT procedure are in the results section. ECG 12-LEAD Routine 01/04/2019 9:44 Results for this PM CDT procedure are in the results section. POCT-GLUCOSE METER Routine 01/04/2019 6:54 Results for this PM CDT procedure are in the results section. POCT-GLUCOSE METER Routine 01/04/2019 3:29 Results for this PM CDT procedure are in the results section. POCT-GLUCOSE METER Routine 01/04/2019 11:48 Results for this AM CDT procedure are in the results section. HEMODIALYSIS INPATIENT Routine 01/04/2019 11:27 AM CDT CBC W/PLT COUNT & AUTO STAT 01/04/2019 5:24 Results for this DIFFERENTIAL AM CDT procedure are in the results section. CBC W/PLT COUNT & AUTO STAT 01/04/2019 5:24 Results for this DIFFERENTIAL AM CDT procedure are in the results section. MAGNESIUM STAT 01/04/2019 5:24 Results for this AM CDT procedure are in the results section. BASIC METABOLIC PANEL STAT 01/04/2019 5:24 Results for this (7) AM CDT procedure are in the results section. BLOOD GAS, ARTERIAL STAT 01/04/2019 5:24 Results for this AM CDT procedure are in the results section. PHOSPHORUS Routine 01/04/2019 5:24 Results for this AM CDT procedure are in the results section. POTASSIUM STAT 01/04/2019 5:24 Results for this AM CDT procedure are in the results section. XR CHEST 1 VIEW Routine 01/04/2019 5:02 Results for this PORTABLE/BEDSIDE AM CDT procedure are in the results section. BLOOD GAS, ARTERIAL Routine 01/04/2019 2:07 Results for this AM CDT procedure are in the results section. CREATINE KINASE (CK) Routine 01/04/2019 2:05 Results for this AM CDT procedure are in the results section. PT/APTT STAT 01/04/2019 2:05 Results for this AM CDT procedure are in the results section. HEPATITIS B SURFACE Routine 01/04/2019 2:05 Results for this ANTIGEN AM CDT procedure are in the results section. TROPONIN I STAT 01/04/2019 2:05 Results for this AM CDT procedure are in the results section. POCT-GLUCOSE METER Routine 01/04/2019 12:18 Results for this AM CDT procedure are in the results section. BLOOD GAS, ARTERIAL STAT 01/03/2019 11:45 Results for this PM CDT procedure are in the results section. LACTIC ACID, ARTERIAL STAT 01/03/2019 11:44 Results for this PM CDT procedure are in the results section. MAGNESIUM STAT 01/03/2019 11:44 Results for this PM CDT procedure are in the results section. COMPREHENSIVE METABOLIC STAT 01/03/2019 11:44 Results for this PANEL PM CDT procedure are in the results section. TROPONIN I STAT 01/03/2019 11:44 Results for this PM CDT procedure are in the results section. MI INSERT Routine 01/03/2019 10:22 Other specified Results for this CATH,ART,PERCUT,SHORTTE PM CDT hypotension procedure are in RM the results section. HGB/HCT (H&H) - STAT STAT 01/03/2019 9:31 Results for this LAB PM CDT procedure are in the results section. GLUCOSE-STAT LAB STAT 01/03/2019 9:31 Results for this PM CDT procedure are in the results section. POTASSIUM-STAT LAB STAT 01/03/2019 9:31 Results for this PM CDT procedure are in the results section. SODIUM NA-STAT LAB STAT 01/03/2019 9:31 Results for this PM CDT procedure are in the results section. PHOSPHORUS STAT 01/03/2019 9:31 Results for this PM CDT procedure are in the results section. MAGNESIUM STAT 01/03/2019 9:31 Results for this PM CDT procedure are in the results section. BASIC METABOLIC PANEL STAT 01/03/2019 9:31 Results for this (7) PM CDT procedure are in the results section. XR CHEST 1 VIEW STAT 01/03/2019 9:27 Results for this PORTABLE/BEDSIDE PM CDT procedure are in the results section. ECHOCARDIOGRAM REPORT - 01/03/2019 9:22 SCAN PM CDT ECG 12-LEAD Routine 01/03/2019 9:08 Results for this PM CDT procedure are in the results section. ECG 12-LEAD Routine 01/03/2019 9:08 PM CDT Procedure Note - Interface, External Ris In - 01/03/2019 9:14 PM CDT Ventricular Rate 73 BPM Atrial Rate 73 BPM QRS Duration 128 ms Q-T Interval 404 ms QTC Calculation(Bazett) 445 ms P [place] 44 degrees R [place] -56 degrees T [place] 22 degrees Sinus rhythm with 1st degree A-V block Left axis deviation Non-specific intra-ventricular conduction block Possible Lateral infarct , age undetermined Abnormal ECG When compared with ECG of 03-JAN-2019 09:26, Non-specific intra-ventricular conduction block has replaced Right bundle branch block Borderline criteria for Lateral infarct are now Present BLOOD GAS, ARTERIAL STAT 01/03/2019 8:53 PM Results for this CDT procedure are in the results section. RRL CRITICAL LABS STAT 01/03/2019 8:53 PM Results for this (ABG,NA,K,H&H,GLUCOSE) CDT procedure are in the results section. CBC W/PLT COUNT & AUTO STAT 01/03/2019 8:46 PM Results for this DIFFERENTIAL CDT procedure are in the results section. PT/APTT STAT 01/03/2019 8:46 PM Results for this CDT procedure are in the results section. LACTIC ACID, VENOUS STAT 01/03/2019 8:46 PM Results for this CDT procedure are in the results section. CBC W/PLT COUNT & AUTO STAT 01/03/2019 8:46 PM Results for this DIFFERENTIAL CDT procedure are in the results section. POCT-ACT Routine 01/03/2019 4:38 PM Results for this CDT procedure are in the results section. L CATH & PCI 01/03/2019 2:48 PM Unstable angina CDT (HCC) 2D ECHO W/ DOPPLER STAT 01/03/2019 1:50 PM Results for this (CW/PW/COLOR) CDT procedure are in the results section. CBC W/PLT COUNT & AUTO Routine 01/03/2019 1:41 PM Results for this DIFFERENTIAL CDT procedure are in the results section. PROTHROMBIN TIME/INR Routine 01/03/2019 1:41 PM Results for this CDT procedure are in the results section. CBC W/PLT COUNT & AUTO Routine 01/03/2019 1:41 PM Results for this DIFFERENTIAL CDT procedure are in the results section. POCT-GLUCOSE METER Routine 01/03/2019 11:19 AM Results for this CDT procedure are in the results section. COMPREHENSIVE METABOLIC Routine 01/03/2019 10:37 AM Results for this PANEL CDT procedure are in the results section. LIPID PANEL Routine 01/03/2019 10:37 AM Results for this CDT procedure are in the results section. TROPONIN I STAT 01/03/2019 10:37 AM Results for this CDT procedure are in the results section. ECG 12-LEAD Routine 01/03/2019 9:26 AM Results for this CDT procedure are in the results section. ECG 12-LEAD Routine 01/03/2019 9:26 AM CDT Procedure Note - Interface, External Ris In - 01/03/2019 9:31 AM CDT Ventricular Rate 90 BPM Atrial Rate 90 BPM P-R Interval 230 ms QRS Duration 134 ms Q-T Interval 372 ms QTC Calculation(Bazett) 455 ms P [place] 45 degrees R [place] -58 degrees T [place] 41 degrees Sinus rhythm with 1st degree A-V block Right bundle branch block Left anterior fascicular block Bifascicular block Abnormal ECG No previous ECGs available after 01/07/2018 Results XR chest 1 view portable / bedside (01/08/2019 3:10 PM CDT)Only the most recent of6 resultswithin the time period is included. Specimen Narrative Performed At FINAL REPORT [facility] Clinical History: Respiratory insufficiency Comparison Study: January 07, 2019 Findings:The cardiac silhouette is enlarged. The lungs are within normal limits.The pleural spaces are clear.No significant bony or soft tissue abnormalities are seen. A stent projects over the left shoulder. Impression: Cardiomegaly. Signed: Edd Ruiz MD Report Verified Date/Time:01/08/2019 16:01:59 Reading Location: [address] Consult Reading Room Procedure Note Interface, External Ris In - 01/08/2019 4:04 PM CDT FINAL REPORT Clinical History: Respiratory insufficiency Comparison Study: January 07, 2019 Findings: The cardiac silhouette is enlarged. The lungs are within normal limits. The pleural spaces are clear. No significant bony or soft tissue abnormalities are seen. A stent projects over the left shoulder. Impression: Cardiomegaly. Signed: Edd Ruiz MD Report Verified Date/Time: 01/08/2019 16:01:59 Reading Location: [facility] C013 Consult Reading Room Performing Organization Address City/State/Zipcode Phone Number GE RIS POC-Glucose meter (01/08/2019 11:36 AM CDT)Only the most recent of20 resultswithin the time period is included. POC-Glucose Meter 178 (H)Comment: TESTED AT 70 - 110 mg/dL [facility] [address] [place] [id number] Specimen Blood Performing Organization Address City/[facility] Phone [place] [address] [place] CBC (Hemogram only) (01/08/2019 5:00 AM CDT) WBC 8.7 3.5 - 10.5 K/L [facility] RBC 2.86 (L) 4.63 - 6.08 M/L [facility] Hemoglobin 9.0 (L) 13.7 - 17.5 GM/DL [facility] Hematocrit 29.4 (L) 40.1 - 51.0 % [facility] MCV 102.8 (H) 79.0 - 92.2 fL [facility] MCH 31.5 25.7 - 32.2 pg [facility] MCHC 30.6 (L) 32.3 - 36.5 GM/DL [facility] RDW 14.5 (H) 11.6 - 14.4 % [facility] Platelets 256 150 - 450 K/CU MM [facility] MPV 11.9 9.4 - 12.4 fL [facility] nRBC 0 0 - 0 /100 WBC [facility] Specimen Blood Performing Organization Address City/[facility]/Zipcode Phone Number [address] [address] [place] Basic Metabolic Panel (01/08/2019 5:00 AM CDT)Only the most recent of6 resultswithin the time period is included. Sodium 138 136 - 145 meq/L [facility] Potassium 4.6 3.5 - 5.1 meq/L [facility] Chloride 101 98 - 107 meq/L [facility] CO2 23 22 - 29 meq/L [facility] BUN 36 (H) 7 - 21 mg/dL [facility] Creatinine 6.83 (H) 0.57 - 1.25 mg/dL [facility] Glucose 166 (H) 70 - 105 mg/dL [facility] Calcium 9.3 8.4 - 10.2 mg/dL [facility] EGFR 8Comment: ESTIMATED GFR IS mL/min/1.73 sq m [facility] NOT ACCURATE CREATININE [facility] CENTER CLEARANCE IN PREDICTING GLOMERULAR FILTRATION RATE. ESTIMATED GFR IS NOT APPLICABLE FOR DIALYSIS PATIENTS. Specimen Blood Performing Organization Address City/[facility]/Zipcode Phone Number [address] [address] [phone] CENTER Magnesium (01/06/2019 6:17 AM CDT)Only the most recent of6 resultswithin the time period is included. Magnesium 2.1 1.6 - 2.6 mg/dL [facility] Specimen Blood Performing Organization Address City/[facility]/Zipcode Phone Number [address] [address] [phone] CENTER Vancomycin level, random (01/06/2019 6:17 AM CDT) Vancomycin Rm 17.4 ug/mL [facility] Specimen Blood Narrative Performed At Reference Range: No Normals [facility] Performing Organization Address City/[facility]/Zipcode Phone Number [address] [address] CENTER CBC with platelet count + automated diff (01/05/2019 4:09 AM CDT)Only the most recent of5 resultswithin the time period is included. WBC 10.5 3.5 - 10.5 K/L [facility] RBC 2.73 (L) 4.63 - 6.08 M/L [facility] Hemoglobin 8.6 (L) 13.7 - 17.5 GM/DL [facility] Hematocrit 27.1 (L) 40.1 - 51.0 % [facility] MCV 99.3 (H) 79.0 - 92.2 fL [facility] MCH 31.5 25.7 - 32.2 pg [facility] MCHC 31.7 (L) 32.3 - 36.5 GM/DL [facility] RDW 14.4 11.6 - 14.4 % [facility] Platelets 154 150 - 450 K/CU MM [facility] MPV 12.5 (H) 9.4 - 12.4 fL [facility] nRBC 0 0 - 0 /100 WBC [facility] % Neutros 78 % [facility] % Lymphs 11 % [facility] % Monos 10 % [facility] % Eos 0 % [facility] % Baso 1 % [facility] # Neutros 8.18 (H) 1.78 - 5.38 K/L [facility] # Lymphs 1.11 (L) 1.32 - 3.57 K/L [facility] # Monos 1.04 (H) 0.30 - 0.82 K/L [facility] # Eos 0.03 (L) 0.04 - 0.54 K/L [facility] # Baso 0.05 0.01 - 0.08 K/L [facility] Immature Granulocytes-Relative 1 0 - 1 % [facility] Specimen Blood Performing Organization Address City/[facility] Phone Number [address] [address] [phone] [place] Lactic Acid, Arterial (01/05/2019 4:09 AM CDT)Only the most recent of2 resultswithin the time period is included. Lactate, Art 1.0 0.5 - 2.2 mmol/L [facility] Specimen Blood, Arterial Performing Organization Address [facility] Phone Number [address] [address] [phone] [place] Blood gas, arterial (01/05/2019 4:09 AM CDT)Only the most recent of5 resultswithin the time period is included. pH, Arterial 7.44 7.35 - 7.45 [facility] pCO2, Arterial 41 35 - 45 mmHg [facility] pO2, Arterial 118 (H) 80 - 90 mmHg [facility] O2 Sat, Arterial 98.0 (H) 96.0 - 97.0 % [facility] HCO3, Arterial 26 21 - 29 mmol/L [facility] Base Excess, Arterial 2.7 -2.0 - 3.0 mmol/L [facility] Patient Temperature 39.5 C [facility] FIO2 21.0 % [facility] Specimen Blood, Arterial Performing Organization Address City/[facility] Phone Number [address] [address] [place] ECG 12 lead (01/04/2019 9:46 PM CDT)Only the most recent of4 resultswithin the time period is included. Specimen Narrative Performed At Ventricular Rate 104 BPM GE MUSE Atrial Rate 98 BPM QRS Duration 124 ms Q-T Interval 344 ms QTC Calculation(Bazett) 452 ms R [place] -60 degrees T [place] 57 degrees Atrial fibrillation with rapid ventricular response Right bundle branch block Left anterior fascicular block Bifascicular block Possible Lateral infarct (cited on or before 03-JAN-2019) Abnormal ECG When compared with ECG of 04-JAN-2019 21:44, No significant change was found Confirmed by MD WHITTEN RUPA ([id number]) on 01/06/2019 1:42:10 PM Procedure Note Interface, External Ris In - 01/06/2019 1:42 PM CDT Ventricular Rate 104 BPM Atrial Rate 98 BPM QRS Duration 124 ms Q-T Interval 344 ms QTC Calculation(Bazett) 452 ms R [place] -60 degrees T [place] 57 degrees Atrial fibrillation with rapid ventricular response Right bundle branch block Left anterior fascicular block Bifascicular block Possible Lateral infarct (cited on or before 03-JAN-2019) Abnormal ECG When compared with ECG of 04-JAN-2019 21:44, No significant change was found Confirmed by MD WHITTEN RUPA ([id number]) on 01/06/2019 1:42:10 PM Performing Organization Address City/[facility] Phone Number [facility] [place] [place] Potassium (01/04/2019 5:24 AM CDT) Potassium 5.5 (H) 3.5 - 5.1 meq/L [facility] Specimen Blood Performing Organization Address [facility] Phone Number [address] [address] CENTER Phosphorus (01/04/2019 5:24 AM CDT)Only the most recent of2 resultswithin the time period is included. Phosphorus 5.8 (H) 2.3 - 4.7 mg/dL [facility] Specimen Blood Performing Organization Address [facility] [place] Phone Number [address] [address] [phone] CENTER PT/aPTT (01/04/2019 2:05 AM CDT)Only the most recent of2 resultswithin the time period is included. Protime 22.0 (H) 11.7 - 14.7 seconds [facility] INR 2.0 <=5.9 [facility] PTT 114.6 (H) 22.5 - 36.0 seconds [facility] Specimen Blood Narrative Performed At RECOMMENDED COUMADIN/WARFARIN INR THERAPY [facility] RANGES STANDARD DOSE: 2.0 - 3.0 Includes: PROPHYLAXIS for venous thrombosis, systemic embolization; TREATMENT for venous thrombosis and/or pulmonary embolus. HIGH RISK: Target INR is 2.5-3.5 for patients with mechanical heart valves. Performing Organization Address [facility] Phone Number [address] [address] C[place] Troponin I (01/04/2019 2:05 AM CDT)Only the most recent of3 resultswithin the time period is included. Troponin I 2.70 (HH) 0.00 - 0.03 ng/mL [facility] Specimen Blood Narrative Performed At Troponin I (TnI) levels must be interpreted [facility] in the context of the presenting symptoms and the clinical findings. Elevated TnI levels indicate myocardial damage, but are not specific for ischemic heart disease. Elevated TnI levels are seen in patients with other cardiac conditions (including myocarditis and congestive heart failure), and slight TnI elevations occur in patients with other conditions, including sepsis, renal failure, acidosis, acute neurological disease, and persistent tachyarrhythmia. Performing Organization Address City/[facility]/Zipcode Phone Number [address] [address] [phone] CENTER Hepatitis B surface antigen (01/04/2019 2:05 AM CDT) hepatitis B Surface Ag NON-REACTIVE Nonreactive [facility] Specimen Blood Performing Organization Address City/State/Zipcode Phone Number [address] [address] CENTER Creatine Kinase (CK) (01/04/2019 2:05 AM CDT) Total CK 340 (H) 29 - 200 U/L [facility] Specimen Blood Performing Organization Address City/State/Zipcode Phone Number [address] [address] CENTER Comprehensive metabolic panel (01/03/2019 11:44 PM CDT)Only the most recent of2 resultswithin the time period is included. Protein, Total 6.4 6.0 - 8.3 gm/dL [facility] Albumin 3.6 3.5 - 5.0 g/dL [facility] Alkaline Phosphatase 75 40 - 150 U/L [facility] Total Bilirubin 0.5 0.2 - 1.2 mg/dL [facility] Sodium 133 (L) 136 - 145 meq/L [facility] Potassium 5.7 (H) 3.5 - 5.1 meq/L [facility] Chloride 99 98 - 107 meq/L [facility] CO2 25 22 - 29 meq/L [facility] BUN 33 (H) 7 - 21 mg/dL [facility] Creatinine 6.92 (H) 0.57 - 1.25 mg/dL [facility] Glucose 234 (H) 70 - 105 mg/dL [facility] Calcium 9.1 8.4 - 10.2 mg/dL [facility] AST 15 5 - 34 U/L [facility] ALT 17 6 - 55 U/L [facility] EGFR 8Comment: ESTIMATED GFR mL/min/1.73 sq m [facility] IS NOT ACCURATE [facility] CREATININE CLEARANCE IN PREDICTING GLOMERULAR FILTRATION RATE. ESTIMATED GFR IS NOT APPLICABLE FOR DIALYSIS PATIENTS. Specimen Blood Performing Organization Address City/State/Zipcode Phone Number [address] [place] [address] CENTER Insert Arterial Line (01/03/2019 10:22 PM CDT) Narrative Performed At Celia West PA-C 01/03/2019 10:34 PM Insert Arterial Line Date/Time: 01/03/2019 10:24 PM Performed by: Celia West PA-C Authorized by: Celia West PA-C Consent: The procedure was performed in an emergent situation. Risks and benefits: risks, benefits and alternatives were discussed Consent given by: spouse Required items: required blood products, implants, devices, and special equipment available Patient identity confirmed: arm band, verbally with patient and provided demographic data Time out: Immediately prior to procedure a "time out" was called to verify the correct patient, procedure, equipment, fire support specialist and site/side marked as required. Preparation: Patient was prepped and draped in the usual sterile fashion. Indications: hemodynamic monitoring Location: right radial Anesthesia: local infiltration Anesthesia: Local Anesthetic: lidocaine 2% without epinephrine Anesthetic total: 1 mL Needle gauge: 20 Seldinger technique: Seldinger technique used Number of attempts: 1 Post-procedure: line sutured and dressing applied Post-procedure CMS: normal and unchanged Patient tolerance: Patient tolerated the procedure well with no immediate complications Potassium-Stat Lab (01/03/2019 9:31 PM CDT) Potassium 4.7 3.6 - 5.5 meq/L [facility] Specimen Blood, Arterial Performing Organization Address City/[facility]/Zipcode Phone Number [address] [address] [place] Sodium Na-Stat Lab (01/03/2019 9:31 PM CDT) Sodium 134 (L) 135 - 148 meq/L [facility] Specimen Blood, Arterial Performing Organization Address City/[facility] Phone Number [address] [address] [phone] CENTER Glucose-Stat Lab (01/03/2019 9:31 PM CDT) Glucose 205 (H) 70 - 110 mg/dL [facility] Specimen Blood, Arterial Performing Organization Address [facility] Phone Number [address] [address] [phone] [place] HGB/HCT (H&H)-Stat Lab (01/03/2019 9:31 PM CDT) Hemoglobin 8.3 (L) 13.0 - 16.8 g/dL [facility] Hematocrit 24.0 (L) 40.0 - 50.0 % [facility] Specimen Blood, Arterial Performing Organization Address [facility] Phone Number [address] [address] [phone] [place] ECHOCARDIOGRAM REPORT - SCAN (01/03/2019 9:22 PM CDT) Narrative Performed At Lactic acid, venous (01/03/2019 8:46 PM CDT) Lactate, Venous 1.7Comment: Specimen 0.5 - 2.2 mmol/L [facility] moderately hemolyzed [facility] Specimen Blood Performing Organization Address [facility] Phone Number [address] [address] [place] POC ACTIVATED CLOTTING TIME (01/03/2019 4:38 PM CDT) Activated Clotting Time 384Comment: TESTED AT sec [address] [address] Specimen Blood Performing Organization Address [facility] Phone Number [address] [address] [phone] [place] 2D Echo W/Doppler(CW/PW/Color) (01/03/2019 1:50 PM CDT) Ejection Fraction [facility] [email or web address] Specimen Narrative Performed At Transthoracic Echocardiography Report (TTE) [facility] CKESSON [facility] Demographics Patient NameCARMICHAEL, Date of Study01/03/2019 ONEAL Male Visit [id number] Unknown Room [id number] Number Date of 1Referring Cathy Jones NP Age 68 year(s)Telephone Maintainer Ileana Lofton [facility] Interpreting Reji Boyle MD Physician Procedure Type of Study TTE procedure:2DECHO W DOPPLER(CW/PW/COLOR) (STAT) Indications:Acute Chest Pain/ Suspected CAD. Clinical History CHF;DM;ESRD;HEPB;HTN. HGB HCT % Contrast Medium: Definity. Height: 71 inches Weight: 113.4 kg (250 lbs) BSA: 2.32 m^2 BMI: 34.87 kg/m^2 HR: 89 bpm BP: 118/48 mmHg Summary 1. The left ventricle is chamber size (by vol index) is normal. Mild concentric LV hypertrophy. All of the LV segments contract normally. LVEF by Coe's method of disk assessment is normal (60%). Grade 2 diastolic dysfunction (mildly increased LA pressure). LA size is mildly enlarged (35-41 ml/m2). 2. The right ventricular chamber size and systolic function are within normal limits. RA size is normal. Unable to estimate peak systolic PA pressure; inadequate TR velocity signal. 3. No significant valvular abnormalities. Previous Study No prior exam available for comparison. Signature Findings Left Ventricle The left ventricle is chamber size (by vol index) is normal (male - LVED vol - 34-74ml/m2). Mi ld concentric LV hypertrophy. Al l of the LV segments contract normally . Gl obal LV systolic function normal . LV EF by Coe's method of disk assessment is no rmal (60%) . Gr marizol 2 diastolic dysfunction (mildly increased LA pr essure). LV endocardium is well visualized with IV ul trasound enhancing agent. Left AtriumLA size is mildly enlarged (35-41 ml/m2) . Right VentricleThe right ventricular chamber size and systolic fu nction are within normal limits. Right Atrium RA size is normal. Atrial SeptumNormal interatrial septum by available views. Aortic Valve Mild AoV cusp thickening. A trace of aortic regurgitation. Mitral Valve Mild MV leaflet thickening. Tr gillian mitral regurgitation. Tricuspid ValveA trace of tricuspid regurgitation. Un able to estimate peak systolic PA pressure; in adequate TR velocity signal. Pulmonic Valve Normal PV structure and function by limited views an d Doppler. AortaAortic root size (SInus of Valsalva diameter) is no rmal . PericardiumA small pericardial effusion is present . An echo lucent space is noted consistent with pr ominent pericardial fat pad. IVC/SVC/PA/PV/PleuralThe estimated RA pressure by IVC dynamics 0-5mmHg . Chambers/Structures Left Atrium LA Volume: 93.92 ml LA Area: 28.91 cm^2 LA Vol. Index: 40 ml/m^2 Left Ventricle LVIDd: 4.43 cm LVEDV:86.15 ml LVIDs: 2.96 cm LVESV:25.98 ml LV Septum Diastolic: 1.24 cm LVEF 2D Cube: 68.8 % LV PW Diastolic: 1.51 cm LVEDV Coe's:143.67 mlLV FS: 33.2 % LVESV Coe's:52.73 ml LVEF Coe's: 63.3 % LVEDVI: 62 ml/m^2 LVESVI: 23 ml/m^2 LVOT Diameter: 2.68 cm LVEF: 69.8 % Aorta Ascending Aorta: 3.15 cm Doppler/Quantitative Measurements Mitral Valve MV Peak E-Wave: 1 m/s MV Peak A-Wave: 0.69 m/s E/A Ratio: 1.46 Peak Gradient: 4.04 mmHg Deceleration Time: 158.6 msec MV Lang. Peak: Tissue Doppler E' Lateral Velocity: 0.06 m/s E/E': 15.58 Aortic Valve Peak Velocity: 1.88 m/sMean Velocity: 1.29 m/s Peak Gradient: 14.09 mmHgMean Gradient: 7.61 mmHg AV Area (continuity): 3.71 cm^2 AV VTI: 35.99 cm AV DVI: 0.66 LVOT Peak Velocity: 1.38 m/s Peak Gradient: 7.67 mmHg Mean Velocity: 1.04 m/s Mean Gradient: 4.6 mmHg LVOT Diameter: 2.68 cmLVOT VTI: 23.66 cm LVOT Area: 5.64 cm^2LVOT SV:133.4 ml LVOT CO: 11.87 l/minLVOT CI: 5.12 l/min/m^2 Procedure Note Interface, External Ris In - 01/03/2019 6:17 PM CDT Transthoracic Echocardiography Report (TTE) Demographics Patient Name RUCHI, Date of Study 01/03/2019 ONEAL Gender Male Visit Number [id number] Race Unknown Room Number C618 Number Date of 1950 Referring Cathy Mott NP Age 68 year(s) Telephone Maintainer Ileana Lofton [facility] Interpreting Reji Boyle MD Physician Procedure Type of Study TTE procedure:2DECHO W DOPPLER(CW/PW/COLOR) (STAT) Indications:Acute Chest Pain/ Suspected CAD. Clinical History CHF;DM;ESRD;HEPB;HTN. HGB HCT % Contrast Medium: Definity. Height: 71 inches Weight: 113.4 kg (250 lbs) BSA: 2.32 m^2 BMI: 34.87 kg/m^2 HR: 89 bpm BP: 118/48 mmHg Summary 1. The left ventricle is chamber size (by vol index) is normal. Mild concentric LV hypertrophy. All of the LV segments contract normally. LVEF by Coe's method of disk assessment is normal (60%). Grade 2 diastolic dysfunction (mildly increased LA pressure). LA size is mildly enlarged (35-41 ml/m2). 2. The right ventricular chamber size and systolic function are within normal limits. RA size is normal. Unable to estimate peak systolic PA pressure; inadequate TR velocity signal. 3. No significant valvular abnormalities. Previous Study No prior exam available for comparison. Signature Findings Left Ventricle The left ventricle is chamber size (by vol index) is normal (male - LVED vol - 34-74ml/m2). Mild concentric LV hypertrophy. All of the LV segments contract normally . Global LV systolic function normal . LVEF by Coe's method of disk assessment is normal (60%) . Grade 2 diastolic dysfunction (mildly increased LA pressure). LV endocardium is well visualized with IV ultrasound enhancing agent. Left Atrium LA size is mildly enlarged (35-41 ml/m2) . Right Ventricle The right ventricular chamber size and systolic function are within normal limits. Right Atrium RA size is normal. Atrial Septum Normal interatrial septum by available views. Aortic Valve Mild AoV cusp thickening. A trace of aortic regurgitation. Mitral Valve Mild MV leaflet thickening. Trace mitral regurgitation. Tricuspid Valve A trace of tricuspid regurgitation. Unable to estimate peak systolic PA pressure; inadequate TR velocity signal. Pulmonic Valve Normal PV structure and function by limited views and Doppler. Aorta Aortic root size (SInus of Valsalva diameter) is normal . Pericardium A small pericardial effusion is present . An echo lucent space is noted consistent with prominent pericardial fat pad. IVC/SVC/PA/PV/Pleural The estimated RA pressure by IVC dynamics 0-5mmHg . Chambers/Structures Left Atrium LA Volume: 93.92 ml LA Area: 28.91 cm^2 LA Vol. Index: 40 ml/m^2 Left Ventricle LVIDd: 4.43 cm LVEDV:86.15 ml LVIDs: 2.96 cm LVESV:25.98 ml LV Septum Diastolic: 1.24 cm LVEF 2D Cube: 68.8 % LV PW Diastolic: 1.51 cm LVEDV Coe's:143.67 ml LV FS: 33.2 % LVESV Coe's:52.73 ml LVEF Coe's: 63.3 % LVEDVI: 62 ml/m^2 LVESVI: 23 ml/m^2 LVOT Diameter: 2.68 cm LVEF: 69.8 % Aorta Ascending Aorta: 3.15 cm Doppler/Quantitative Measurements Mitral Valve MV Peak E-Wave: 1 m/s MV Peak A-Wave: 0.69 m/s E/A Ratio: 1.46 Peak Gradient: 4.04 mmHg Deceleration Time: 158.6 msec MV Lang. Peak: Tissue Doppler E' Lateral Velocity: 0.06 m/s E/E': 15.58 Aortic Valve Peak Velocity: 1.88 m/s Mean Velocity: 1.29 m/s Peak Gradient: 14.09 mmHg Mean Gradient: 7.61 mmHg AV Area (continuity): 3.71 cm^2 AV VTI: 35.99 cm AV DVI: 0.66 LVOT Peak Velocity: 1.38 m/s Peak Gradient: 7.67 mmHg Mean Velocity: 1.04 m/s Mean Gradient: 4.6 mmHg LVOT Diameter: 2.68 cm LVOT VTI: 23.66 cm LVOT Area: 5.64 cm^2 LVOT SV:133.4 ml LVOT CO: 11.87 l/min LVOT CI: 5.12 l/min/m^2 Performing Organization Address [facility] Cent[facility]ode Phone Number [facility] MKCKESSON CPACS Prothrombin time/INR (01/03/2019 1:41 PM CDT) Protime 14.3 11.7 - 14.7 seconds [facility] INR 1.2 <=5.9 [facility] Specimen Blood Narrative Performed At RECOMMENDED COUMADIN/WARFARIN INR THERAPY [facility] RANGES STANDARD DOSE: 2.0 - 3.0 Includes: PROPHYLAXIS for venous thrombosis, systemic embolization; TREATMENT for venous thrombosis and/or pulmonary embolus. HIGH RISK: Target INR is 2.5-3.5 for patients with mechanical heart valves. Performing Organization Address City/[facility]/Zipcode Phone Number [address] [address] CENTER Lipid panel (01/03/2019 10:37 AM CDT) Triglycerides 158 mg/dL [facility] Cholesterol 113 mg/dL [facility] HDL 34 mg/dL [facility] LDL Calculated 47 mg/dL [facility] Specimen Blood Narrative Performed At Triglyceride Reference Range: [facility] Low Risk <150 [id number] High Risk 200-499 Very High Risk>=500 Cholesterol Reference Range: Low Risk <200 [id number] High Risk>240 HDL Cholesterol Reference Range: Low Risk >=60 High Risk <40 LDL Cholesterol Reference Range: Optimal<100 Near [id number] Very High >=190 Performing Organization Address City/State/Zipcode Phone Number [facility] [address] [place] [address] CENTER after 01/07/2018 Insurance Payer Benefit Plan / Group Subscriber ID Type Phone Address MEDICARE MEDICARE A B xxxxxxxxxxx Medicare MCR SUPPLEMENT/INDIVIDUAL AARP/[facility] xxxxxxxxxxx Medigap Advance Directives For more information, please contact:[address] [phone] Code Status Date Activated Date Inactivated Comments Full Code 01/03/2019 10:26 AM 01/08/2019 6:55 PM This code status was determined by: Patient
--- OUTSIDE RECORDS SUMMARY | 2019-01-08 19:21 | XMS REPORT ---
:1950 [facility] Address [address] [place] [address] Dr. Guerrero [address] [place] [id number] Care Team Providers Name Role Phone JEANETTE BANUELOS Unavailable Unavailable Problems This patient has no known problems. Allergies, Adverse Reactions, Alerts This patient has no known allergies or adverse reactions. Medications This patient has no known medications. Results Test Description Test Time Test Comments Text Results Atomic Results Result Comments RAD, CHEST, 1 2019-01-08 16:01:00 Reason for FINAL REPORT PATIENT VIEW, NON DEPT exam:->respiratory ID: [id number] insufficiencyShould this be Clinical History: performed at the Respiratory bedside?->Yes insufficiency Comparison Study: January 07, 2019 Findings: The cardiac silhouette is enlarged. The lungs are within normal limits. The pleural spaces are clear. No significant bony or soft tissue abnormalities are seen. A stent projects over the left shoulder. Impression: Cardiomegaly. Signed: Edd Ruiz Verified Date/Time: 01/08/2019 16:01:59 Reading Location: [address] Consult Reading Room -GLUCOSE METER 2019-01-08 12:01:00 Test Item Value Reference Range Comments POC-GLUCOSE METER (BEAKER) (test 178 mg/dL 70-110 TESTED AT [facility] [address] [facility] eadu=1753) [facility] [address] BASIC METABOLIC [id number] 06:13:00 Test Item Value Reference Range Comments SODIUM (BEAKER) (test 138 meq/L 136-145 mmcm=088) POTASSIUM (BEAKER) (test 4.6 meq/L 3.5-5.1 xcvf=607) CHLORIDE (BEAKER) (test 101 meq/L 98-107 nwsj=409) CO2 (BEAKER) (test 23 meq/L 22-29 qhnr=123) BLOOD UREA NITROGEN 36 mg/dL 7-21 (BEAKER) (test bimi=533) CREATININE (BEAKER) (test 6.83 mg/dL 0.57-1.25 hist=367) GLUCOSE RANDOM (BEAKER) 166 mg/dL 70-105 (test ifou=833) CALCIUM (BEAKER) (test 9.3 mg/dL 8.4-10.2 doje=141) EGFR (BEAKER) (test 8 mL/min/1.73 sq m ESTIMATED GFR IS NOT jucu=9897) ACCURATE CREATININE CLEARANCE IN PREDICTING GLOMERULAR FILTRATION RATE. ESTIMATED GFR IS NOT APPLICABLE FOR DIALYSIS PATIENTS. CBC (HEMOGRAM ONLY)2019-01-08 05:22:00 Test Item Value Reference Range Comments WHITE BLOOD CELL COUNT (BEAKER) (test tosk=566) 8.7 K/ L 3.5-10.5 RED BLOOD CELL COUNT (BEAKER) (test titj=543) 2.86 M/ L 4.63-6.08 HEMOGLOBIN (BEAKER) (test yxja=651) 9.0 GM/DL 13.7-17.5 HEMATOCRIT (BEAKER) (test hibk=559) 29.4 % 40.1-51.0 MEAN CORPUSCULAR VOLUME (BEAKER) (test kfrc=872) 102.8 fL 79.0-92.2 MEAN CORPUSCULAR HEMOGLOBIN (BEAKER) (test 31.5 pg 25.7-32.2 ditz=560) MEAN CORPUSCULAR HEMOGLOBIN CONC (BEAKER) (test 30.6 GM/DL 32.3-36.5 nekd=574) RED CELL DISTRIBUTION WIDTH (BEAKER) (test 14.5 % 11.6-14.4 cvrf=169) PLATELET COUNT (BEAKER) (test fiid=689) 256 K/CU MM 150-450 MEAN PLATELET VOLUME (BEAKER) (test cmox=943) 11.9 fL 9.4-12.4 NUCLEATED RED BLOOD CELLS (BEAKER) (test 0 /100 WBC 0-0 ifsy=297) POCT-GLUCOSE [id number] 21:50:00 Test Item Value Reference Range Comments POC-GLUCOSE METER (BEAKER) 211 mg/dL 70-110 TESTED AT [address] (test kqxk=3203) [facility] [address] POCT-GLUCOSE [id number] 18:22:00 Test Item Value Reference Range Comments POC-GLUCOSE METER (BEAKER) 118 mg/dL 70-110 TESTED AT [address] (test cqfn=6862) [facility] [address] POCT-GLUCOSE [id number] 12:04:00 Test Item Value Reference Range Comments POC-GLUCOSE METER (BEAKER) 158 mg/dL 70-110 TESTED AT [address] (test bsgl=5889) [place] [id number] RAD, CHEST, 1 VIEW, NON [id number] 10:43:00Reason for exam:->respiratory insufficiencyShould this be performed at the bedside?->YesFINAL REPORT INDICATION: respiratory insufficiency COMPARISON:January 06 TECHNIQUE: Chest radiograph, single view, portable technique. FINDINGS / IMPRESSION: Enlarged heart shadow andnonspecific left retrocardiac opacity again demonstrated. Pulmonary veins are prominent but no overtpulmonary edema. No pneumothorax. Osseous structures unremarkable. Signed: Franky Mix MDReportVerified Date/Time: 01/07/2019 10:43:17 Reading Location: [facility] Radiology Reading Room POCT-GLUCOSE [id number] 08:09:00 Test Item Value Reference Range Comments POC-GLUCOSE METER (BEAKER) 145 mg/dL 70-110 TESTED AT [address] (test stgv=3117) [facility] [address] POCT-GLUCOSE [id number] 21:32:00 Test Item Value Reference Range Comments POC-GLUCOSE METER (BEAKER) 274 mg/dL 70-110 TESTED AT [address] (test kwrh=6083) [facility] [address] POCT-GLUCOSE [id number] 17:20:00 Test Item Value Reference Range Comments POC-GLUCOSE METER (BEAKER) 215 mg/dL 70-110 TESTED AT [address] (test rurd=1356) [facility] [address] POCT-GLUCOSE [id number] 14:33:00 Test Item Value Reference Range Comments POC-GLUCOSE METER (BEAKER) 200 mg/dL 70-110 TESTED AT [facility] [address] [facility] (test gddq=3087) [facility] [address] POCT-GLUCOSE [id number] 11:13:00 Test Item Value Reference Range Comments POC-GLUCOSE METER (BEAKER) 289 mg/dL 70-110 TESTED AT [place] [id number] [facility] (test wtrf=0295) [facility] [address] POCT-GLUCOSE [id number] 08:08:00 Test Item Value Reference Range Comments POC-GLUCOSE METER (BEAKER) 180 mg/dL 70-110 TESTED AT [address] (test ghzh=5357) [facility] [address] RAD, CHEST, 1 VIEW, NON [id number] 07:40:00Reason for exam:->respiratory insufficiencyShould this be performed at the bedside?->YesFINAL REPORT Chest dated 01/06/2019 COMPARISON: 01/05/2019 Clinical Information:respiratory insufficiency Comment: Heart is enlarged. Pulmonary vasculature is indistinct. Interstitial disease is seen bilaterally suggestive of vascular congestion unchanged from prior study. There is small left pleural effusion. Signed: Yuridia Wallace MDReport Verified Date/Time: 01/06/2019 07:40:30 Reading Location: [address] Consult Reading Room Electronically signed by: YURIDIA WALLACE M.D.on 01/06/2019 07:40 AMBASIC METABOLIC [id number] 07: 18:00 Test Item Value Reference Range Comments SODIUM (BEAKER) (test 136 meq/L 136-145 aeth=695) POTASSIUM (BEAKER) (test 5.2 meq/L 3.5-5.1 naoe=202) CHLORIDE (BEAKER) (test 100 meq/L 98-107 smkm=842) CO2 (BEAKER) (test 21 meq/L 22-29 wkgm=207) BLOOD UREA NITROGEN 49 mg/dL 7-21 (BEAKER) (test sjhd=786) CREATININE (BEAKER) (test 8.64 mg/dL 0.57-1.25 utzn=385) GLUCOSE RANDOM (BEAKER) 146 mg/dL 70-105 (test xdoe=828) CALCIUM (BEAKER) (test 9.6 mg/dL 8.4-10.2 rhek=149) EGFR (BEAKER) (test 6 mL/min/1.73 sq m ESTIMATED GFR IS NOT zcrr=0226) ACCURATE CREATININE CLEARANCE IN PREDICTING GLOMERULAR FILTRATION RATE. ESTIMATED GFR IS NOT APPLICABLE FOR DIALYSIS PATIENTS. VANCOMYCIN LEVEL, [id number] 07:13:00 Test Item Value Reference Range Comments VANCOMYCIN RANDOM (BEAKER) (test mlmy=426) 17.4 ug/mL Reference Range: No [id number] 07:09:00 Test Item Value Reference Range Comments MAGNESIUM (BEAKER) (test tzeg=385) 2.1 mg/dL 1.6-2.6 POCT-GLUCOSE [id number] 21:46:00 Test Item Value Reference Range Comments POC-GLUCOSE METER (BEAKER) 173 mg/dL 70-110 TESTED AT [address] (test dakt=6738) [place] [id number] POCT-GLUCOSE [id number] 16:20:00 Test Item Value Reference Range Comments POC-GLUCOSE METER (BEAKER) 172 mg/dL 70-110 TESTED AT [address] (test mpbw=2982) [facility] [address] POCT-GLUCOSE [id number] 12:21:00 Test Item Value Reference Range Comments POC-GLUCOSE METER (BEAKER) 260 mg/dL 70-110 TESTED AT [address] (test tzyi=8323) [facility] [address] POCT-GLUCOSE [id number] 08:37:00 Test Item Value Reference Range Comments POC-GLUCOSE METER (BEAKER) 153 mg/dL 70-110 TESTED AT [address] (test owkl=1278) [facility] [address] RAD, CHEST, 1 VIEW, NON [id number] 07:04:00Reason for exam:->respiratory insufficiencyShould this be performed at the bedside?->YesFINAL REPORT RAD, CHEST, 1 VIEW, NON DEPT INDICATION: respiratory insufficiency COMPARISON: Prior day's exam FINDINGS: Portable frontal view of the chest. IMPRESSION: Support Lines: External leads Lungs and pleura: Bibasilar subsegmental atelectasis No pneumothorax.Heart and mediastinum: Stable contours. Additional findings: None. Signed: Lorenza, Dasia MDReport Verified Date/Time: 01/05/2019 07:04:08 Reading Location: [facility] C013V Neuro Reading Room Electronically signed by: DASIA LAST MD on 2018 07:04 AMBASIC METABOLIC [id number] 05:47:00 Test Item Value Reference Range Comments SODIUM (BEAKER) (test 133 meq/L 136-145 zlly=783) POTASSIUM (BEAKER) (test 5.1 meq/L 3.5-5.1 mftg=175) CHLORIDE (BEAKER) (test 97 meq/L 98-107 fhbs=995) CO2 (BEAKER) (test 25 meq/L 22-29 taha=058) BLOOD UREA NITROGEN 33 mg/dL 7-21 (BEAKER) (test hnki=393) CREATININE (BEAKER) (test 6.56 mg/dL 0.57-1.25 yqkw=404) GLUCOSE RANDOM (BEAKER) 156 mg/dL 70-105 (test dvsq=593) CALCIUM (BEAKER) (test 9.6 mg/dL 8.4-10.2 dwuh=132) EGFR (BEAKER) (test 9 mL/min/1.73 sq m ESTIMATED GFR IS NOT xxxq=5234) ACCURATE CREATININE CLEARANCE IN PREDICTING GLOMERULAR FILTRATION RATE. ESTIMATED GFR IS NOT APPLICABLE FOR DIALYSIS PATIENTS. [id number] 05:36:00 Test Item Value Reference Range Comments MAGNESIUM (BEAKER) (test cydp=687) 1.9 mg/dL 1.6-2.6 CBC W/PLT COUNT & AUTO [id number] 05:18:00 Test Item Value Reference Range Comments WHITE BLOOD CELL COUNT (BEAKER) (test buvm=163) 10.5 K/ L 3.5-10.5 RED BLOOD CELL COUNT (BEAKER) (test knes=280) 2.73 M/ L 4.63-6.08 HEMOGLOBIN (BEAKER) (test ytxc=099) 8.6 GM/DL 13.7-17.5 HEMATOCRIT (BEAKER) (test lcts=864) 27.1 % 40.1-51.0 MEAN CORPUSCULAR VOLUME (BEAKER) (test bumj=838) 99.3 fL 79.0-92.2 MEAN CORPUSCULAR HEMOGLOBIN (BEAKER) (test 31.5 pg 25.7-32.2 grhz=013) MEAN CORPUSCULAR HEMOGLOBIN CONC (BEAKER) (test 31.7 GM/DL 32.3-36.5 tgqp=840) RED CELL DISTRIBUTION WIDTH (BEAKER) (test 14.4 % 11.6-14.4 hexh=516) PLATELET COUNT (BEAKER) (test grgt=290) 154 K/CU MM 150-450 MEAN PLATELET VOLUME (BEAKER) (test zhqe=223) 12.5 fL 9.4-12.4 NUCLEATED RED BLOOD CELLS (BEAKER) (test 0 /100 WBC 0-0 anad=216) NEUTROPHILS RELATIVE PERCENT (BEAKER) (test 78 % dnyr=446) LYMPHOCYTES RELATIVE PERCENT (BEAKER) (test 11 % rzcx=933) MONOCYTES RELATIVE PERCENT (BEAKER) (test 10 % rlkk=790) EOSINOPHILS RELATIVE PERCENT (BEAKER) (test 0 % tpew=123) BASOPHILS RELATIVE PERCENT (BEAKER) (test 1 % nozi=370) NEUTROPHILS ABSOLUTE COUNT (BEAKER) (test 8.18 K/ L 1.78-5.38 gkez=555) LYMPHOCYTES ABSOLUTE COUNT (BEAKER) (test 1.11 K/ L 1.32-3.57 zqlq=194) MONOCYTES ABSOLUTE COUNT (BEAKER) (test 1.04 K/ L 0.30-0.82 uyik=877) EOSINOPHILS ABSOLUTE COUNT (BEAKER) (test 0.03 K/ L 0.04-0.54 metv=995) BASOPHILS ABSOLUTE COUNT (BEAKER) (test 0.05 K/ L 0.01-0.08 vbds=368) IMMATURE GRANULOCYTES-RELATIVE PERCENT (BEAKER) 1 % 0-1 (test pjai=7532) BLOOD GAS, [id number] 05:12:00 Test Item Value Reference Range Comments PH ARTERIAL (BEAKER) (test smnt=443) 7.44 7.35-7.45 PCO2 ARTERIAL (BEAKER) (test nxdb=518) 41 mmHg 35-45 PO2 ARTERIAL (BEAKER) (test fzdy=481) 118 mmHg 80-90 O2 SATURATION ARTERIAL (BEAKER) (test guus=330) 98.0 % 96.0-97.0 HCO3 ARTERIAL (BEAKER) (test snys=573) 26 mmol/L 21-29 BASE EXCESS ARTERIAL (BEAKER) (test vtns=332) 2.7 mmol/L -2.0-3.0 PATIENT TEMPERATURE (BEAKER) (test lwsi=1969) 39.5 C FIO2 (BEAKER) (test zouy=4208) 21.0 % LACTIC ACID, [id number] 05:00:00 Test Item Value Reference Range Comments LACTATE BLOOD ARTERIAL (2) (BEAKER) (test 1.0 mmol/L 0.5-2.2 xlfm=2900) BASIC METABOLIC [id number] 23:29:00 Test Item Value Reference Range Comments SODIUM (BEAKER) (test 135 meq/L 136-145 vhic=658) POTASSIUM (BEAKER) (test 4.9 meq/L 3.5-5.1 wrew=538) CHLORIDE (BEAKER) (test 98 meq/L 98-107 xvrc=470) CO2 (BEAKER) (test 26 meq/L 22-29 cbid=375) BLOOD UREA NITROGEN 29 mg/dL 7-21 (BEAKER) (test vmxn=345) CREATININE (BEAKER) (test 6.08 mg/dL 0.57-1.25 luot=790) GLUCOSE RANDOM (BEAKER) 192 mg/dL 70-105 (test sdgu=168) CALCIUM (BEAKER) (test 9.6 mg/dL 8.4-10.2 vesa=824) EGFR (BEAKER) (test 9 mL/min/1.73 sq m ESTIMATED GFR IS NOT pajb=6976) ACCURATE CREATININE CLEARANCE IN PREDICTING GLOMERULAR FILTRATION RATE. ESTIMATED GFR IS NOT APPLICABLE FOR DIALYSIS PATIENTS. [id number] 23:17:00 Test Item Value Reference Range Comments MAGNESIUM (BEAKER) (test emfi=185) 1.9 mg/dL 1.6-2.6 CBC W/PLT COUNT & AUTO [id number] 22:52:00 Test Item Value Reference Range Comments WHITE BLOOD CELL COUNT (BEAKER) (test penu=941) 10.4 K/ L 3.5-10.5 RED BLOOD CELL COUNT (BEAKER) (test ozcq=795) 2.82 M/ L 4.63-6.08 HEMOGLOBIN (BEAKER) (test pdct=800) 8.8 GM/DL 13.7-17.5 HEMATOCRIT (BEAKER) (test yhsr=074) 28.0 % 40.1-51.0 MEAN CORPUSCULAR VOLUME (BEAKER) (test dgiy=206) 99.3 fL 79.0-92.2 MEAN CORPUSCULAR HEMOGLOBIN (BEAKER) (test 31.2 pg 25.7-32.2 cuwt=681) MEAN CORPUSCULAR HEMOGLOBIN CONC (BEAKER) (test 31.4 GM/DL 32.3-36.5 txkd=402) RED CELL DISTRIBUTION WIDTH (BEAKER) (test 14.1 % 11.6-14.4 nbeh=350) PLATELET COUNT (BEAKER) (test sudx=531) 152 K/CU MM 150-450 MEAN PLATELET VOLUME (BEAKER) (test hogj=187) 12.5 fL 9.4-12.4 NUCLEATED RED BLOOD CELLS (BEAKER) (test 0 /100 WBC 0-0 ccrz=953) NEUTROPHILS RELATIVE PERCENT (BEAKER) (test 80 % fgvk=559) LYMPHOCYTES RELATIVE PERCENT (BEAKER) (test 8 % etop=180) MONOCYTES RELATIVE PERCENT (BEAKER) (test 10 % psva=136) EOSINOPHILS RELATIVE PERCENT (BEAKER) (test 0 % erde=541) BASOPHILS RELATIVE PERCENT (BEAKER) (test 0 % zirr=562) NEUTROPHILS ABSOLUTE COUNT (BEAKER) (test 8.31 K/ L 1.78-5.38 gsxf=575) LYMPHOCYTES ABSOLUTE COUNT (BEAKER) (test 0.87 K/ L 1.32-3.57 urhf=543) MONOCYTES ABSOLUTE COUNT (BEAKER) (test 1.06 K/ L 0.30-0.82 fgrg=605) EOSINOPHILS ABSOLUTE COUNT (BEAKER) (test 0.03 K/ L 0.04-0.54 klem=264) BASOPHILS ABSOLUTE COUNT (BEAKER) (test 0.04 K/ L 0.01-0.08 hfkp=797) IMMATURE GRANULOCYTES-RELATIVE PERCENT (BEAKER) 1 % 0-1 (test xxki=4009) POCT-GLUCOSE [id number] 22:52:00 Test Item Value Reference Range Comments POC-GLUCOSE METER (BEAKER) 221 mg/dL 70-110 TESTED AT [address] (test ameg=1256) [facility] [address] POCT-GLUCOSE [id number] 19:02:00 Test Item Value Reference Range Comments POC-GLUCOSE METER (BEAKER) 182 mg/dL 70-110 TESTED AT [address] (test lhry=5464) [facility] [address] POCT-GLUCOSE [id number] 15:31:00 Test Item Value Reference Range Comments POC-GLUCOSE METER (BEAKER) 150 mg/dL 70-110 TESTED AT [place] [id number] [facility] (test qaiw=5837) [facility] [address] POCT-GLUCOSE [id number] 12:07:00 Test Item Value Reference Range Comments POC-GLUCOSE METER (BEAKER) 284 mg/dL 70-110 TESTED AT [address] (test dfdt=6960) [facility] [address] RAD, CHEST, 1 VIEW, NON [id number] 08:49:00Reason for exam:->respiratory insufficiencyShould this be performed at the bedside?->YesFINAL REPORT Clinical History: Respiratory insufficiency Comparison Study: January 03, 2019 Findings: The cardiac silhouette is enlarged. Mild interstitial markings are seen. The lungs are otherwise within normal limits. The pleural spaces are clear. No significant bony or soft tissue abnormalities are seen. Impression: Cardiomegaly. Signed: Edd Ruiz [facility] Verified Date/Time: 01/04/2019 08:49:14 Reading Location: [facility] Radiology Reading Room BASIC METABOLIC [id number] 06:21:00 Test Item Value Reference Range Comments SODIUM (BEAKER) (test 135 meq/L 136-145 quhf=537) POTASSIUM (BEAKER) (test 5.5 meq/L 3.5-5.1 ejbi=986) CHLORIDE (BEAKER) (test 99 meq/L 98-107 mwht=557) CO2 (BEAKER) (test 24 meq/L 22-29 meqc=405) BLOOD UREA NITROGEN 36 mg/dL 7-21 (BEAKER) (test wasc=443) CREATININE (BEAKER) (test 7.37 mg/dL 0.57-1.25 yept=573) GLUCOSE RANDOM (BEAKER) 203 mg/dL 70-105 (test ilbs=194) CALCIUM (BEAKER) (test 9.7 mg/dL 8.4-10.2 zkbj=645) EGFR (BEAKER) (test 7 mL/min/1.73 sq m ESTIMATED GFR IS NOT rwsl=5745) ACCURATE CREATININE CLEARANCE IN PREDICTING GLOMERULAR FILTRATION RATE. ESTIMATED GFR IS NOT APPLICABLE FOR DIALYSIS PATIENTS. [id number] 06:09:00 Test Item Value Reference Range Comments POTASSIUM (BEAKER) (test ryfr=972) 5.5 meq/L 3.5-5.1 [id number] 06:09:00 Test Item Value Reference Range Comments MAGNESIUM (BEAKER) (test bzwd=422) 2.2 mg/dL 1.6-2.6 [id number] 06:09:00 Test Item Value Reference Range Comments PHOSPHORUS (BEAKER) (test ghxi=476) 5.8 mg/dL 2.3-4.7 CBC W/PLT COUNT & AUTO [id number] 05:54:00 Test Item Value Reference Range Comments WHITE BLOOD CELL COUNT (BEAKER) (test dewq=128) 11.3 K/ L 3.5-10.5 RED BLOOD CELL COUNT (BEAKER) (test trxt=791) 2.88 M/ L 4.63-6.08 HEMOGLOBIN (BEAKER) (test putk=664) 9.1 GM/DL 13.7-17.5 HEMATOCRIT (BEAKER) (test lqnt=716) 28.6 % 40.1-51.0 MEAN CORPUSCULAR VOLUME (BEAKER) (test lyer=123) 99.3 fL 79.0-92.2 MEAN CORPUSCULAR HEMOGLOBIN (BEAKER) (test 31.6 pg 25.7-32.2 vuzq=729) MEAN CORPUSCULAR HEMOGLOBIN CONC (BEAKER) (test 31.8 GM/DL 32.3-36.5 idby=025) RED CELL DISTRIBUTION WIDTH (BEAKER) (test 14.4 % 11.6-14.4 sqdp=668) PLATELET COUNT (BEAKER) (test prdt=403) 165 K/CU MM 150-450 MEAN PLATELET VOLUME (BEAKER) (test bkpf=055) 12.4 fL 9.4-12.4 NUCLEATED RED BLOOD CELLS (BEAKER) (test 0 /100 WBC 0-0 lkfx=405) NEUTROPHILS RELATIVE PERCENT (BEAKER) (test 76 % tfty=124) LYMPHOCYTES RELATIVE PERCENT (BEAKER) (test 11 % uhcw=831) MONOCYTES RELATIVE PERCENT (BEAKER) (test 11 % gibv=458) EOSINOPHILS RELATIVE PERCENT (BEAKER) (test 0 % fcpy=074) BASOPHILS RELATIVE PERCENT (BEAKER) (test 0 % helt=000) NEUTROPHILS ABSOLUTE COUNT (BEAKER) (test 8.59 K/ L 1.78-5.38 lxde=167) LYMPHOCYTES ABSOLUTE COUNT (BEAKER) (test 1.28 K/ L 1.32-3.57 eydg=328) MONOCYTES ABSOLUTE COUNT (BEAKER) (test 1.26 K/ L 0.30-0.82 kehp=898) EOSINOPHILS ABSOLUTE COUNT (BEAKER) (test 0.04 K/ L 0.04-0.54 tdqi=895) BASOPHILS ABSOLUTE COUNT (BEAKER) (test 0.05 K/ L 0.01-0.08 syoh=356) IMMATURE GRANULOCYTES-RELATIVE PERCENT (BEAKER) 1 % 0-1 (test woqt=0963) BLOOD GAS, [id number] 05:34:00 Test Item Value Reference Range Comments PH ARTERIAL (BEAKER) (test xaej=170) 7.41 7.35-7.45 PCO2 ARTERIAL (BEAKER) (test ymuo=983) 42 mmHg 35-45 PO2 ARTERIAL (BEAKER) (test hfkk=136) 105 mmHg 80-90 O2 SATURATION ARTERIAL (BEAKER) (test uogs=583) 97.7 % 96.0-97.0 HCO3 ARTERIAL (BEAKER) (test wsco=189) 26 mmol/L 21-29 BASE EXCESS ARTERIAL (BEAKER) (test wryn=769) 0.9 mmol/L -2.0-3.0 PATIENT TEMPERATURE (BEAKER) (test dxjz=4504) 37.5 C FIO2 (BEAKER) (test weto=1975) 21.0 % HEPATITIS B SURFACE [id number] 03:29:00 Test Item Value Reference Range Comments HEPATITIS B SURFACE ANTIGEN (2) (BEAKER) (test Nonreactive Nonreactive xfkf=8483) TROPONIN [id number] 03:04:00 Test Item Value Reference Range Comments TROPONIN I (BEAKER) (test zagw=065) 2.70 ng/mL 0.00-0.03 Troponin I (TnI) levels must be interpreted in the context of the presenting symptoms and the clinical findings. Elevated TnI levels indicate myocardial damage, but are not specific for ischemic heart disease. Elevated TnI levels are seen in patients with other cardiac conditions (including myocarditis and congestive heart failure), and slight TnI elevations occur in patients with other conditions, including sepsis, renal failure, acidosis, acute neurological disease, and persistent tachyarrhythmia.CREATINE KINASE (CK)2019-01-04 02:48:00 Test Item Value Reference Range Comments CREATINE KINASE TOTAL (BEAKER) (test jvol=998) 340 U/L 29-200 [id number] 02:42:00 Test Item Value Reference Range Comments PROTIME (BEAKER) (test pfww=609) 22.0 seconds 11.7-14.7 INR (BEAKER) (test snry=061) 2.0 <=5.9 PARTIAL THROMBOPLASTIN TIME (BEAKER) (test 114.6 seconds 22.5-36.0 vdsb=204) RECOMMENDED COUMADIN/WARFARIN INR THERAPY RANGESSTANDARD DOSE: 2.0 - 3.0 Includes: PROPHYLAXIS forvenous thrombosis, systemic embolization; TREATMENT for venous thrombosis and/or pulmonary embolus.HIGH RISK: Target INR is 2.5-3.5 for patients with mechanical heart valves.BLOOD GAS, [id number] 02:15:00 Test Item Value Reference Range Comments PH ARTERIAL (BEAKER) (test cead=433) 7.35 7.35-7.45 PCO2 ARTERIAL (BEAKER) (test jtxg=067) 47 mmHg 35-45 PO2 ARTERIAL (BEAKER) (test uaky=993) 78 mmHg 80-90 O2 SATURATION ARTERIAL (BEAKER) (test obxd=526) 94.6 % 96.0-97.0 HCO3 ARTERIAL (BEAKER) (test crlh=551) 25 mmol/L 21-29 BASE EXCESS ARTERIAL (BEAKER) (test vgew=652) -0.5 mmol/L -2.0-3.0 PATIENT TEMPERATURE (BEAKER) (test nynw=5243) 37.5 C FIO2 (BEAKER) (test psan=0666) 21.0 % POCT-GLUCOSE [id number] 00:41:00 Test Item Value Reference Range Comments POC-GLUCOSE METER (BEAKER) 237 mg/dL 70-110 TESTED AT [facility] [address] [facility] (test zjtd=6253) [facility] [id number] TROPONIN [id number] 00:28:00 Test Item Value Reference Range Comments TROPONIN I (BEAKER) (test ylhj=985) 1.65 ng/mL 0.00-0.03 Troponin I (TnI) levels must be interpreted in the context of the presenting symptoms and the clinical findings. Elevated TnI levels indicate myocardial damage, but are not specific for ischemic heart disease. Elevated TnI levels are seen in patients with other cardiac conditions (including myocarditis and congestive heart failure), and slight TnI elevations occur in patients with other conditions, including sepsis, renal failure, acidosis, acute neurological disease, and persistent tachyarrhythmia.COMPREHENSIVE METABOLIC [id number] 00:24:00 Test Item Value Reference Range Comments TOTAL PROTEIN (BEAKER) 6.4 gm/dL 6.0-8.3 (test ewhv=544) ALBUMIN (BEAKER) (test 3.6 g/dL 3.5-5.0 umeb=7272) ALKALINE PHOSPHATASE 75 U/L 40-150 (BEAKER) (test vkss=088) BILIRUBIN TOTAL (BEAKER) 0.5 mg/dL 0.2-1.2 (test eeky=214) SODIUM (BEAKER) (test 133 meq/L 136-145 tktx=738) POTASSIUM (BEAKER) (test 5.7 meq/L 3.5-5.1 chwz=934) CHLORIDE (BEAKER) (test 99 meq/L 98-107 yqmt=493) CO2 (BEAKER) (test 25 meq/L 22-29 mtrd=260) BLOOD UREA NITROGEN 33 mg/dL 7-21 (BEAKER) (test rbqo=498) CREATININE (BEAKER) (test 6.92 mg/dL 0.57-1.25 mttr=398) GLUCOSE RANDOM (BEAKER) 234 mg/dL 70-105 (test rmhz=216) CALCIUM (BEAKER) (test 9.1 mg/dL 8.4-10.2 kyub=019) AST (SGOT) (BEAKER) (test 15 U/L 5-34 dnyn=217) ALT (SGPT) (BEAKER) (test 17 U/L 6-55 oovr=734) EGFR (BEAKER) (test 8 mL/min/1.73 sq m ESTIMATED GFR IS NOT nesj=9691) ACCURATE CREATININE CLEARANCE IN PREDICTING GLOMERULAR FILTRATION RATE. ESTIMATED GFR IS NOT APPLICABLE FOR DIALYSIS PATIENTS. [id number] 00:21:00 Test Item Value Reference Range Comments MAGNESIUM (BEAKER) (test vsqx=822) 2.0 mg/dL 1.6-2.6 LACTIC ACID, [id number] 00:16:00 Test Item Value Reference Range Comments LACTATE BLOOD ARTERIAL (2) (BEAKER) (test 1.3 mmol/L 0.5-2.2 rrbj=9027) BLOOD GAS, [id number] 23:54:00 Test Item Value Reference Range Comments PH ARTERIAL (BEAKER) (test majm=083) 7.32 7.35-7.45 PCO2 ARTERIAL (BEAKER) (test opfi=734) 51 mmHg 35-45 PO2 ARTERIAL (BEAKER) (test jjlg=939) 133 mmHg 80-90 O2 SATURATION ARTERIAL (BEAKER) (test sxbp=930) 98.4 % 96.0-97.0 HCO3 ARTERIAL (BEAKER) (test becx=715) 26 mmol/L 21-29 BASE EXCESS ARTERIAL (BEAKER) (test ahoh=558) -0.3 mmol/L -2.0-3.0 PATIENT TEMPERATURE (BEAKER) (test iowr=1354) 37.0 C FIO2 (BEAKER) (test sjim=8355) 40.0 % RAD, CHEST, 1 VIEW, NON [id number] 22:24:00Reason for exam:-> hypotensionShould this be performed at the bedside?->YesFINAL REPORT Chest dated 01/03/2019 Clinical Information: hypotension Comment: Heart is enlarged. Pulmonary vasculature is indistinct. Interstitial disease is seen bilaterally suggestive of vascular congestion. Endotracheal tube is present. A curvilinear radiopaque density is seen in the mid upper chest. Please correlate clinically. Signed: Yuridia Wallace MDReport Verified Date/Time: 01/03/2019 22:24:07 Reading Location: [facility] Consult Reading Room BASIC METABOLIC [id number] 22:08:00 Test Item Value Reference Range Comments SODIUM (BEAKER) (test 136 meq/L 136-145 sxju=736) POTASSIUM (BEAKER) (test 5.2 meq/L 3.5-5.1 Specimen slightly aiku=346) hemolyzed CHLORIDE (BEAKER) (test 104 meq/L 98-107 eltw=172) CO2 (BEAKER) (test 22 meq/L 22-29 rlma=982) BLOOD UREA NITROGEN 27 mg/dL 7-21 (BEAKER) (test zyvo=263) CREATININE (BEAKER) (test 5.82 mg/dL 0.57-1.25 Specimen slightly gvqf=926) hemolyzed GLUCOSE RANDOM (BEAKER) 220 mg/dL 70-105 (test hbla=332) CALCIUM (BEAKER) (test 8.0 mg/dL 8.4-10.2 bcag=859) EGFR (BEAKER) (test 10 mL/min/1.73 sq m ESTIMATED GFR IS NOT ompb=0270) ACCURATE CREATININE CLEARANCE IN PREDICTING GLOMERULAR FILTRATION RATE. ESTIMATED GFR IS NOT APPLICABLE FOR DIALYSIS PATIENTS. [id number] 22:07:00 Test Item Value Reference Range Comments MAGNESIUM (BEAKER) (test 2.0 mg/dL 1.6-2.6 Specimen slightly hemolyzed dtwn=698) [id number] 22:07:00 Test Item Value Reference Range Comments PHOSPHORUS (BEAKER) (test 5.1 mg/dL 2.3-4.7 Specimen slightly hemolyzed fomy=914) POTASSIUM-STAT [id number] 21:42:00 Test Item Value Reference Range Comments POTASSIUM (BEAKER) (test uxin=915) 4.7 meq/L 3.6-5.5 GLUCOSE-STAT [id number] 21:42:00 Test Item Value Reference Range Comments GLUCOSE RANDOM (BEAKER) (test zofm=548) 205 mg/dL 70-110 SODIUM NA-STAT [id number] 21:42:00 Test Item Value Reference Range Comments SODIUM (BEAKER) (test xjxu=488) 134 meq/L 135-148 HGB/HCT (H&H) - STAT [id number] 21:42:00 Test Item Value Reference Range Comments HEMOGLOBIN (BEAKER) (test pqwi=104) 8.3 g/dL 13.0-16.8 HEMATOCRIT (BEAKER) (test kwys=961) 24.0 % 40.0-50.0 [id number] 21:34:00 Test Item Value Reference Range Comments PROTIME (BEAKER) (test nwhq=465) 54.5 seconds 11.7-14.7 INR (BEAKER) (test pzbn=840) 6.6 <=5.9 PARTIAL THROMBOPLASTIN TIME (BEAKER) (test 116.0 seconds 22.5-36.0 vrsg=670) RECOMMENDED COUMADIN/WARFARIN INR THERAPY RANGESSTANDARD DOSE: 2.0 - 3.0 Includes: PROPHYLAXIS forvenous thrombosis, systemic embolization; TREATMENT for venous thrombosis and/or pulmonary embolus.HIGH RISK: Target INR is 2.5-3.5 for patients with mechanical heart valves.LACTIC ACID, [id number] 21:27:00 Test Item Value Reference Range Comments LACTATE BLOOD VENOUS (2) 1.7 mmol/L 0.5-2.2 Specimen moderately hemolyzed (BEAKER) (test kxcg=6985) CBC W/PLT COUNT & AUTO [id number] 21:16:00 Test Item Value Reference Range Comments WHITE BLOOD CELL COUNT (BEAKER) (test nbbw=875) 13.2 K/ L 3.5-10.5 RED BLOOD CELL COUNT (BEAKER) (test wqgv=658) 2.96 M/ L 4.63-6.08 HEMOGLOBIN (BEAKER) (test lhfh=372) 9.5 GM/DL 13.7-17.5 HEMATOCRIT (BEAKER) (test kfvy=827) 29.8 % 40.1-51.0 MEAN CORPUSCULAR VOLUME (BEAKER) (test mgdm=978) 100.7 fL 79.0-92.2 MEAN CORPUSCULAR HEMOGLOBIN (BEAKER) (test 32.1 pg 25.7-32.2 aych=111) MEAN CORPUSCULAR HEMOGLOBIN CONC (BEAKER) (test 31.9 GM/DL 32.3-36.5 phax=213) RED CELL DISTRIBUTION WIDTH (BEAKER) (test 14.6 % 11.6-14.4 slol=835) PLATELET COUNT (BEAKER) (test wjci=985) 188 K/CU MM 150-450 MEAN PLATELET VOLUME (BEAKER) (test fdtb=142) 12.2 fL 9.4-12.4 NUCLEATED RED BLOOD CELLS (BEAKER) (test 0 /100 WBC 0-0 milx=159) NEUTROPHILS RELATIVE PERCENT (BEAKER) (test 74 % dxqz=149) LYMPHOCYTES RELATIVE PERCENT (BEAKER) (test 14 % dmqb=142) MONOCYTES RELATIVE PERCENT (BEAKER) (test 11 % crpi=513) EOSINOPHILS RELATIVE PERCENT (BEAKER) (test 0 % njvs=767) BASOPHILS RELATIVE PERCENT (BEAKER) (test 0 % ciom=457) NEUTROPHILS ABSOLUTE COUNT (BEAKER) (test 9.78 K/ L 1.78-5.38 aztz=890) LYMPHOCYTES ABSOLUTE COUNT (BEAKER) (test 1.81 K/ L 1.32-3.57 belu=075) MONOCYTES ABSOLUTE COUNT (BEAKER) (test 1.46 K/ L 0.30-0.82 enfn=651) EOSINOPHILS ABSOLUTE COUNT (BEAKER) (test 0.01 K/ L 0.04-0.54 itkh=916) BASOPHILS ABSOLUTE COUNT (BEAKER) (test 0.04 K/ L 0.01-0.08 pmhx=347) IMMATURE GRANULOCYTES-RELATIVE PERCENT (BEAKER) 1 % 0-1 (test uemc=9227) BLOOD GAS, [id number] 21:03:00 Test Item Value Reference Range Comments PH ARTERIAL (BEAKER) (test etvy=877) 7.34 7.35-7.45 PCO2 ARTERIAL (BEAKER) (test vrjw=473) 49 mmHg 35-45 PO2 ARTERIAL (BEAKER) (test tole=863) 102 mmHg 80-90 O2 SATURATION ARTERIAL (BEAKER) (test hfvi=365) 97.3 % 96.0-97.0 HCO3 ARTERIAL (BEAKER) (test olwo=306) 25 mmol/L 21-29 BASE EXCESS ARTERIAL (BEAKER) (test aywc=067) -0.8 mmol/L -2.0-3.0 PATIENT TEMPERATURE (BEAKER) (test bywd=7987) 37.0 C FIO2 (BEAKER) (test zwcl=9571) 40.0 % [id number] 18:33:00 Test Item Value Reference Range Comments ACTIVATED CLOTTING TIME 384 sec [facility]ED AT [facility] [address] [facility] (BEAKER) (test wbfe=549) [place] [address] PROTHROMBIN [id number] 14:04:00 Test Item Value Reference Range Comments PROTIME (BEAKER) (test zksk=125) 14.3 seconds 11.7-14.7 INR (BEAKER) (test dzxg=331) 1.2 <=5.9 RECOMMENDED COUMADIN/WARFARIN INR THERAPY RANGESSTANDARD DOSE: 2.0 - 3.0 Includes: PROPHYLAXIS forvenous thrombosis, systemic embolization; TREATMENT for venous thrombosis and/or pulmonary embolus.HIGH RISK: Target INR is 2.5-3.5 for patients with mechanical heart valves.CBC W/PLT COUNT & AUTO [id number] 14:00:00 Test Item Value Reference Range Comments WHITE BLOOD CELL COUNT (BEAKER) (test jxgj=678) 15.0 K/ L 3.5-10.5 RED BLOOD CELL COUNT (BEAKER) (test xsai=416) 3.01 M/ L 4.63-6.08 HEMOGLOBIN (BEAKER) (test xgcv=500) 9.7 GM/DL 13.7-17.5 HEMATOCRIT (BEAKER) (test rfyy=639) 30.3 % 40.1-51.0 MEAN CORPUSCULAR VOLUME (BEAKER) (test ustb=090) 100.7 fL 79.0-92.2 MEAN CORPUSCULAR HEMOGLOBIN (BEAKER) (test 32.2 pg 25.7-32.2 ycew=728) MEAN CORPUSCULAR HEMOGLOBIN CONC (BEAKER) (test 32.0 GM/DL 32.3-36.5 ucpk=193) RED CELL DISTRIBUTION WIDTH (BEAKER) (test 14.6 % 11.6-14.4 xrjs=227) PLATELET COUNT (BEAKER) (test olwu=283) 196 K/CU MM 150-450 MEAN PLATELET VOLUME (BEAKER) (test iktp=378) 12.4 fL 9.4-12.4 NUCLEATED RED BLOOD CELLS (BEAKER) (test 0 /100 WBC 0-0 iguw=650) NEUTROPHILS RELATIVE PERCENT (BEAKER) (test 82 % litd=620) LYMPHOCYTES RELATIVE PERCENT (BEAKER) (test 7 % zoas=522) MONOCYTES RELATIVE PERCENT (BEAKER) (test 10 % ojsu=693) EOSINOPHILS RELATIVE PERCENT (BEAKER) (test 0 % chvz=515) BASOPHILS RELATIVE PERCENT (BEAKER) (test 0 % zdbq=634) NEUTROPHILS ABSOLUTE COUNT (BEAKER) (test 12.24 K/ L 1.78-5.38 pwbc=200) LYMPHOCYTES ABSOLUTE COUNT (BEAKER) (test 1.10 K/ L 1.32-3.57 eaou=154) MONOCYTES ABSOLUTE COUNT (BEAKER) (test 1.43 K/ L 0.30-0.82 omsv=722) EOSINOPHILS ABSOLUTE COUNT (BEAKER) (test 0.01 K/ L 0.04-0.54 tjno=005) BASOPHILS ABSOLUTE COUNT (BEAKER) (test 0.06 K/ L 0.01-0.08 muvf=713) IMMATURE GRANULOCYTES-RELATIVE PERCENT (BEAKER) 1 % 0-1 (test vxds=4830) TROPONIN [id number] 12:20:00 Test Item Value Reference Range Comments TROPONIN I (BEAKER) (test trjx=871) < ng/mL 0.00-0.03 Troponin I (TnI) levels must be interpreted in the context of the presenting symptoms and the clinical findings. Elevated TnI levels indicate myocardial damage, but are not specific for ischemic heart disease. Elevated TnI levels are seen in patients with other cardiac conditions (including myocarditis and congestive heart failure), and slight TnI elevations occur in patients with other conditions, including sepsis, renal failure, acidosis, acute neurological disease, and persistent tachyarrhythmia.COMPREHENSIVE METABOLIC [id number] 12:15:00 Test Item Value Reference Range Comments TOTAL PROTEIN (BEAKER) 7.0 gm/dL 6.0-8.3 (test jpfx=590) ALBUMIN (BEAKER) (test 4.1 g/dL 3.5-5.0 fyei=0311) ALKALINE PHOSPHATASE 85 U/L 40-150 (BEAKER) (test hfof=141) BILIRUBIN TOTAL (BEAKER) 0.5 mg/dL 0.2-1.2 (test xaed=350) SODIUM (BEAKER) (test 138 meq/L 136-145 oacv=647) POTASSIUM (BEAKER) (test 5.4 meq/L 3.5-5.1 usyq=750) CHLORIDE (BEAKER) (test 101 meq/L 98-107 clek=708) CO2 (BEAKER) (test 24 meq/L 22-29 wlss=184) BLOOD UREA NITROGEN 24 mg/dL 7-21 (BEAKER) (test evbi=544) CREATININE (BEAKER) (test 5.83 mg/dL 0.57-1.25 wfdo=795) GLUCOSE RANDOM (BEAKER) 213 mg/dL 70-105 (test pjvm=682) CALCIUM (BEAKER) (test 9.4 mg/dL 8.4-10.2 wuoc=743) AST (SGOT) (BEAKER) (test 16 U/L 5-34 jidz=555) ALT (SGPT) (BEAKER) (test 23 U/L 6-55 utkv=293) EGFR (BEAKER) (test 10 mL/min/1.73 sq m ESTIMATED GFR IS NOT ysyg=6146) ACCURATE CREATININE CLEARANCE IN PREDICTING GLOMERULAR FILTRATION RATE. ESTIMATED GFR IS NOT APPLICABLE FOR DIALYSIS PATIENTS. LIPID [id number] 12:13:00 Test Item Value Reference Range Comments TRIGLYCERIDES (BEAKER) (test ueak=463) 158 mg/dL CHOLESTEROL (BEAKER) (test rjnm=071) 113 mg/dL HDL CHOLESTEROL (BEAKER) (test yacv=752) 34 mg/dL LDL CHOLESTEROL CALCULATED (CrowdBouncerAKER) (test 47 mg/dL oygv=954) Triglyceride Reference Range: Low Risk <150 Borderline 150- 199 High Risk 200-499 Very High Risk >=500Cholesterol Reference Range: Low Risk <200 Borderline 200-239 High Risk > 240HDL Cholesterol Reference Range: Low Risk >=60 High Risk <40LDL Cholesterol Reference Range: Optimal <100 Near Optimal 100-129 Borderline 130-159 High 160-189 Very High >=190POCT-GLUCOSE [id number] 11:26:00 Test Item Value Reference Range Comments POC-GLUCOSE METER (Oneflare) 291 mg/dL 70-110 TESTED AT [place] [id number] [facility] (test acuw=5304) [facility] [address]
--- NOTE | 2019-01-08 20:37 | RAD REPORT ---
EXAM DESCRIPTION: Clemencia Single View01/08/2019 8:13 pm CLINICAL HISTORY: sob COMPARISON: January 03, 2018 FINDINGS: Small pleural effusions suspected. Opacity seen within the left lung base. Heart is mildly enlarged IMPRESSION: Opacity within the left lung base may represent atelectasis or pneumonia. Small bilateral pleural effusions suspected
[2019-01-08 20:50] LABS: Absolute Lymphocytes (CBC) 0.9 K/uL (0.7-4.9); Absolute Monocytes 0.8 K/uL (0.1-1.3); Absolute Neutrophil 4.8 K/uL (1.8-8.0); Basophils % 1.1 % (0-1.3); Eosinophils % 3.6 % (0-4.4); Lymphocytes % 13.6 % (15.3-44.8); MPV 9.9 fL (7.6-11.3); Monocytes % 11.6 % (3.3-12.3); RBC Red Blood Cell Count 2.68 M/uL (4.33-5.43)
[2019-01-08 20:57] LABS: Protime INR 1.62
[2019-01-08 21:21] LABS: Albumin 2.6 g/dL (3.4-5.0); Bilirubin Direct 0.1 mg/dL (0-0.2); Bilirubin Total 0.3 mg/dL (0.2-1.0); CKMB Creatine Kinase MB 6.8 ng/mL (0.3-3.6); Magnesium 2.4 mg/dL (1.8-2.4); Potassium 4.1 mmol/L (3.5-5.1); Protein, Total 6.7 g/dL (6.4-8.2)
[2019-01-08 21:23] LABS: Troponin (Emerg Dept Use Only) 1.66 ng/mL (0.0-0.045)
[2019-01-08 22:29] LABS: Urine Blood 3+ (NEG); Urine Glucose NEGATIVE (NEG); Urine Protein 3+ (NEG)
--- NOTE | 2019-01-08 22:35 | ER ---
Nurse's Notes [facility] [place] Name: Ritika Mireles Age: 68 yrs Sex: Male : 1950 Arrival Date: 01/08/2019 Time: 19:19 Bed 14 Private MD: Juan Pablo Byrne Diagnosis: Hemoptysis;Epistaxis Presentation: 01/08 19:36 Presenting complaint: Presenting complaint: Patient states: He was seen her last ajMonday and transferred to [facility] where they placed 3 cardiac stents. He was discharged today, before he left he started to feel short of breath, they did a CXR, but did not tell him the result. On the way home he started coughing up blood and had a bloody nose. Patient's also reports that when they were at home he had a bloody bowel movement. Patient is a dialysis pt, usually does dialysis M,W,F. Patient reports that he had dialysis yesterday and today because they were not able to take fluid off because his blood pressure was too low. Edema noted to bilateral lower legs. 19:39 Transition of care: patient was not received from another setting of care. Onset of aj1 symptoms was January 08, 2019. Risk Assessment: Do you want to hurt yourself or someone else? Patient reports no desire to harm self or others. Initial Sepsis Screen: Does the patient meet any 2 criteria? No. Patient's initial sepsis screen is negative. Does the patient have a suspected source of infection? No. Patient's initial sepsis screen is negative. Care prior to arrival: None. 19:39 Method Of Arrival: Wheelchair aj1 19:39 Acuity: MICHELLE 2 aj1 Triage Assessment: 19:47 General: Appears in no apparent distress. uncomfortable, ill, Behavior is calm, aj1 cooperative, appropriate for age. Pain: Denies pain. Neuro: Level of Consciousness is awake, alert, obeys commands. Cardiovascular: Patient's skin is warm and dry. Respiratory: Reports shortness of breath at rest cough that is with bloody sputum Onset: The symptoms/episode began/occurred today, the patient has mild shortness of breath. Derm: Skin is pale. Historical: - Allergies: 19:47 Bactrim; aj1 19:47 Sulfa (Sulfonamide Antibiotics); aj1 19:47 TETRACYCLINES; aj1 - Home Meds: 19:47 Cami 180 mg Oral tab 1 tab nightly [Active]; baclofen 10 mg Oral tab 1.5 tab daily aj1 [Active]; calcium acetate 667 mg Oral tab 3 tabs 3 times per day [Active]; Colace 100 mg Oral cap 2 caps 2 times per day [Active]; Constulose 10 gram/15 mL Oral soln 30 mL twice a day [Active]; Eliquis 2.5 mg Oral tab 1 tab 2 times per day [Active]; [place]-3 1 gm Oral 2 tab twice a day [Active]; Novolog 100 unit/mL Sub-Q soln 40 unit twice a day [Active]; rosuvastatin 10 mg Oral tab 1 tab nightly [Active]; montelukast 10 mg Oral tab 1 tab nightly [Active]; gabapentin 300 mg Oral cap 1 cap 3 times per day [Active]; furosemide 80 mg Oral tab 1 tab once daily [Active]; Vitamin D 5000IU Oral 2 tab daily [Active]; sevelamer carbonate 800 mg Oral tab 1 tab 3 times per day [Active]; hydromorphone 2 mg Oral tab 1 tab twice a day [Active]; Pepcid 40 mg Oral tab 1 tab every 12 hours [Active]; Linzess 72 mcg Oral 1 cap once daily [Active]; Lantus 100 unit/mL Sub-Q soln 40 unit daily [Active]; pantoprazole 40 mg Oral TbEC 1 tab once daily [Active]; ramipril 5 mg Oral cap 1 cap once daily [Active]; - PMHx: 19:47 Diabetes - IDDM; diabetic retinopathy; Dialysis (started 03/20/17); High Cholesterol; aj1 Hypertension; PE; RENAL FAILURE; Cardiac Stents x3; - Immunization history:: Flu vaccine is up to date. - Social history:: Smoking status: Patient/guardian denies using tobacco. - Ebola Screening: : Patient denies travel to an Ebola-affected area in the 21 days before illness onset. Screenin:50 Abuse screen: Denies threats or abuse. Nutritional screening: No deficits noted. jb4 Tuberculosis screening: No symptoms or risk factors identified. Fall Risk Fall in past 12 months (25 points). Total [place]guiano Fall Scale indicates No Risk (0-24 pts). Assessment: 19:50 General: Appears in no apparent distress. comfortable, Behavior is calm, cooperative, jb4 appropriate for age. Pain: Denies pain. Neuro: Level of Consciousness is awake, alert, obeys commands, Oriented to person, place, time, situation. Cardiovascular: Heart tones S1 S2 present Patient's skin is warm and dry. Rhythm is atrial fibrillation. Respiratory: Reports coughing up blood and shortness of breath that started after being discharged from [facility] in [place]. Airway is patent Respiratory effort is even, unlabored, Respiratory pattern is regular, symmetrical, Breath sounds are clear bilaterally. GI: No signs and/or symptoms were reported involving the gastrointestinal system. : No signs and/or symptoms were reported regarding the genitourinary system. EENT: No signs and/or symptoms were reported regarding the EENT system. Derm: Skin is intact, Skin is pink, warm \T\ dry. Musculoskeletal: Circulation, motion, and sensation intact. 20:54 Reassessment: Patient appears in no apparent distress at this time. No changes from jb4 previously documented assessment. Patient and/or family updated on plan of care and expected duration. Pain level reassessed. Patient is alert, oriented x 3, equal unlabored respirations, skin warm/dry/pink. 21:53 Reassessment: Patient appears in no apparent distress at this time. Patient and/or jb4 family updated on plan of care and expected duration. Pain level reassessed. Patient is alert, oriented x 3, equal unlabored respirations, skin warm/dry/pink. 22:58 Reassessment: Patient appears in no apparent distress at this time. Patient and/or jb4 family updated on plan of care and expected duration. Pain level reassessed. Patient is alert, oriented x 3, equal unlabored respirations, skin warm/dry/pink. Pt discharged home with , IV discontinued. Ambulated with steady gate. Vital Signs: 19:47 BP 141 / 84; Pulse 73; Resp 19; Temp 98.2; Pulse Ox 97% on R/A; Weight 136.08 kg (R); aj1 Height 5 ft. 11 in. (180.34 cm) (R); Pain 0/10; 20:54 BP 117 / 57; Pulse 76; Resp 18; Pulse Ox 97% on R/A; jb4 21:45 BP 135 / 65; Pulse 78; Resp 20; Pulse Ox 95% on R/A; jb4 22:30 BP 125 / 68; Pulse 78; Resp 19; Pulse Ox 100% on R/A; jb4 19:47 Body Mass Index 41.84 (136.08 kg, 180.34 cm) aj1 ED Course: 19:19 Patient arrived in ED. am2 19:20 Juan Pablo Byrne DO is Private Physician. am2 19:30 Luiz Lui, RN is Primary Nurse. jb4 19:31 Jose Alberto Corrales MD is Attending Physician. tw4 19:42 Triage completed. aj1 19:47 Arm band placed on Patient placed in an exam room, Patient triaged in bed 14, primary [facility] nurse notified of patient with shortness of breath, recent cardiac stent placement. Primary nurse also at bedside during triage. 19:50 Patient has correct armband on for positive identification. Placed in gown. Bed in low jb4 position. Call light in reach. Side rails up X 1. quality assurance monitor body on. Pulse ox on. NIBP on. 20:13 XRAY CXR (1 view) In Process Unspecified. EDMS 20:35 Initial lab(s) drawn, by me, sent to lab. First set of blood cultures drawn by me. bb Inserted saline lock: 18 gauge in right antecubital area, using aseptic technique. Blood collected. 20:55 Second set of blood cultures drawn. bb 21:05 Notified ED physician of a critical lab result(s). D-Dimer 1539. jb4 21:26 Notified ED physician of a critical lab result(s). Creat: 5.18, Trop: 1.66. jb4 22:30 No provider procedures requiring assistance completed. IV discontinued, intact, jb4 bleeding controlled. 22:35 Juan Pablo Byrne DO is Referral Physician. tw4 Administered Medications: No medications were administered Outcome: 22:35 Discharge ordered by . tw4 22:48 Discharged to home ambulatory, with family. jb4 22:48 Condition: stable 22:59 Patient left the ED. bb Signatures: Dispatcher [employer] EDMS Jazzy Brooks RN RN aj1 Kristal Owens RN RN bb Luiz Lui, FORREST CLAYTON jb4 Tonia Llanos am2 Jose Alberto Corrales MD MD tw4 Corrections: (The following items were deleted from the chart) 19:42 19:36 Presenting complaint: aj1 aj1
--- NOTE | 2019-01-08 22:35 | EDPHYS ---
Physician Documentation [facility] Name: Ritika Mireles Age: 68 yrs Sex: Male : 1950 Arrival Date: 01/08/2019 Time: 19:19 Bed 14 Private MD: Juan Pablo Byrne ED Physician Jose Alberto Corrales HPI: 01/09 02:43 This 68 yrs old Male presents to ER via Wheelchair with complaints of Cough - tw4 blood, Shortness Of Breath. 02:43 The patient or guardian reports cough. Onset: The symptoms/episode began/occurred tw4 today. Severity of symptoms: At their worst the symptoms were moderate, in the emergency department the symptoms have resolved. Modifying factors: The symptoms are alleviated by nothing, the symptoms are aggravated by nothing. Associated signs and symptoms: Pertinent positives: earache, hemoptysis, this patient has no pertinent positive symptoms. The patient has not experienced similar symptoms in the past. Historical: - Allergies: 01/08 19:47 Bactrim; aj1 19:47 Sulfa (Sulfonamide Antibiotics); aj1 19:47 TETRACYCLINES; aj1 - Home Meds: 19:47 Cami 180 mg Oral tab 1 tab nightly [Active]; baclofen 10 mg Oral tab 1.5 tab daily aj1 [Active]; calcium acetate 667 mg Oral tab 3 tabs 3 times per day [Active]; Colace 100 mg Oral cap 2 caps 2 times per day [Active]; Constulose 10 gram/15 mL Oral soln 30 mL twice a day [Active]; Eliquis 2.5 mg Oral tab 1 tab 2 times per day [Active]; [place]-3 1 gm Oral 2 tab twice a day [Active]; Novolog 100 unit/mL Sub-Q soln 40 unit twice a day [Active]; rosuvastatin 10 mg Oral tab 1 tab nightly [Active]; montelukast 10 mg Oral tab 1 tab nightly [Active]; gabapentin 300 mg Oral cap 1 cap 3 times per day [Active]; furosemide 80 mg Oral tab 1 tab once daily [Active]; Vitamin D 5000IU Oral 2 tab daily [Active]; sevelamer carbonate 800 mg Oral tab 1 tab 3 times per day [Active]; hydromorphone 2 mg Oral tab 1 tab twice a day [Active]; Pepcid 40 mg Oral tab 1 tab every 12 hours [Active]; Linzess 72 mcg Oral 1 cap once daily [Active]; Lantus 100 unit/mL Sub-Q soln 40 unit daily [Active]; pantoprazole 40 mg Oral TbEC 1 tab once daily [Active]; ramipril 5 mg Oral cap 1 cap once daily [Active]; - PMHx: 19:47 Diabetes - IDDM; diabetic retinopathy; Dialysis (started 03/20/17); High Cholesterol; aj1 Hypertension; PE; RENAL FAILURE; Cardiac Stents x3; - Immunization history:: Flu vaccine is up to date. - Social history:: Smoking status: Patient/guardian denies using tobacco. - Ebola Screening: : Patient denies travel to an Ebola-affected area in the 21 days before illness onset. ROS: 01/09 02:43 Constitutional: Negative for fever, chills, and weight loss, Eyes: Negative for injury, tw4 pain, redness, and discharge, Cardiovascular: Negative for chest pain, palpitations, and edema, Abdomen/GI: Negative for abdominal pain, nausea, vomiting, diarrhea, and constipation, Back: Negative for injury and pain, MS/Extremity: Negative for injury and deformity, Skin: Negative for injury, rash, and discoloration. Respiratory: Positive for cough, hemoptysis, Negative for dyspnea on exertion, orthopnea, pleurisy, shortness of breath. 02:43 ENT: Positive for nose bleed. tw4 Exam: 02:43 Constitutional: This is a well developed, well nourished patient who is awake, alert, tw4 and in no acute distress. Head/Face: Normocephalic, atraumatic. Cardiovascular: Regular rate and rhythm with a normal S1 and S2. No gallops, murmurs, or rubs. Normal PMI, no JVD. No pulse deficits. Respiratory: Lungs have equal breath sounds bilaterally, clear to auscultation and percussion. No rales, rhonchi or wheezes noted. No increased work of breathing, no retractions or nasal flaring. Abdomen/GI: Soft, non-tender, with normal bowel sounds. No distension or tympany. No guarding or rebound. No evidence of tenderness throughout. Back: No spinal tenderness. No costovertebral tenderness. Full range of motion. MS/ Extremity: Pulses equal, no cyanosis. Neurovascular intact. Full, normal range of motion. Neuro: Awake and alert, GCS 15, oriented to person, place, time, and situation. Cranial nerves II-XII grossly intact. Motor strength 5/5 in all extremities. Sensory grossly intact. Cerebellar exam normal. Normal gait. 02:43 ENT: Nares patent. No nasal discharge, no septal abnormalities noted. Tympanic membranes are normal and external auditory canals are clear. Oropharynx with no redness, swelling, or masses, exudates, or evidence of obstruction, uvula midline. Mucous membranes moist. 02:43 ENT: External ear(s): Vital Signs: 01/08 19:47 BP 141 / 84; Pulse 73; Resp 19; Temp 98.2; Pulse Ox 97% on R/A; Weight 136.08 kg (R); aj1 Height 5 ft. 11 in. (180.34 cm) (R); Pain 0/10; 20:54 BP 117 / 57; Pulse 76; Resp 18; Pulse Ox 97% on R/A; jb4 21:45 BP 135 / 65; Pulse 78; Resp 20; Pulse Ox 95% on R/A; jb4 22:30 BP 125 / 68; Pulse 78; Resp 19; Pulse Ox 100% on R/A; jb4 19:47 Body Mass Index 41.84 (136.08 kg, 180.34 cm) aj1 MDM: 19:32 Patient medically screened. tw01/09 02:43 Differential Diagnosis: Obstructed Airway Bronchitis Asthma Exacerbation Viral tw4 Syndrome. Data reviewed: vital signs, nurses notes. Data interpreted: Pulse oximetry: Interpretation: normal. Test interpretation: by ED physician or midlevel provider: not applicable. Counseling: I had a detailed discussion with the patient and/or guardian regarding: the historical points, exam findings, and any diagnostic results supporting the discharge/admit diagnosis, radiology results. Special discussion: I discussed with the patient/guardian in detail that at this point there is no indication for admission to the hospital. It is understood, however, that if the symptoms persist or worsen the patient needs to return immediately for re-evaluation. 01/08 19:32 Order name: Blood Culture Adult (2) 01/08 19:32 Order name: BMP 01/08 19:32 Order name: CBC with Diff /07 19:32 Order name: C[facility] 01/08 19:32 Order name: CPK [facility] 01/08 19:32 Order name: D-Dimer; Complete Time: 22:37 [facility] 01/08 22:37 Interpretation: Abnormal. 01/08 19:32 Order name: Hepatic Function; Complete Time: 22:36 [facility] 01/08 22:36 Interpretation: Normal except: ALB 2.6; GLOB 4.1; A/G 0.6. [facility] 01/08 19:32 Order name: Lipase; Complete Time: 22:37 01/08 22:37 Interpretation: Within normal limits: LIP 185. 01/08 19:32 Order name: Magnesium; Complete Time: 22:36 [facility] 01/08 22:37 Interpretation: Within normal limits. 01/08 19:32 Order name: NT PRO-BNP; Complete Time: 22:37 [facility] 01/08 19:32 Order name: PT-INR; Complete Time: 22:36 [facility] 01/08 19:32 Order name: Ptt, Activated; Complete Time: 22:36 [facility] 01/08 22:36 Interpretation: Normal except: PTT 41.2. [facility] 01/08 19:32 Order name: Troponin (emerg Dept Use Only); Complete Time: 22:37 [facility] 01/08 22:37 Interpretation: Abnormal: TROPED 1.66. 01/08 19:34 Order name: Blood Culture [facility] 01/08 19:32 Order name: XRAY CXR (1 view); Complete Time: 21:00 [facility] 01/08 21:00 Interpretation: No acute disease except. [facility] 01/08 19:32 Order name: EKG; Complete Time: 19:34 [facility] 01/08 19:32 Order name: Cardiac monitoring; Complete Time: 20:50 [facility] 01/08 19:32 Order name: EKG - Nurse/Tech; Complete Time: 20:50 [facility] 01/08 19:32 Order name: IV Saline Lock; Complete Time: 20:50 01/08 19:32 Order name: Labs collected and sent; Complete Time: 20:50 [facility] 01/08 19:32 Order name: O2 Per Protocol; Complete Time: 20:51 [facility] 01/08 19:32 Order name: O2 Sat Monitoring; Complete Time: 20:50 tw4 01/08 19:34 Order name: Basic Metabolic Panel; Complete Time: 22:08 EDMS 01/08 22:08 Interpretation: Normal except: GLUC 152; BUN 27; CRE 5.18; GFR 11. tw4 01/08 19:34 Order name: CBC with Automated Diff; Complete Time: 21:00 EDMS 01/08 21:00 Interpretation: Normal except: RBC 2.68; HGB 8.6; HCT 26.0; WBC 6.8; PLT 261; RDW 15.5; tw4 LYM% 13.6. 01/08 19:34 Order name: CKMB Creatine Kinase MB; Complete Time: 22:09 EDMS 01/08 22:09 Interpretation: Normal except: CKMB 6.8. tw4 01/08 19:34 Order name: Creatine Phosphokinase; Complete Time: 22:09 EDMS 01/08 22:09 Interpretation: Normal except: CPK 208. tw4 01/08 22:22 Order name: Urine Dipstick--Ancillary (enter results); Complete Time: 22:37 ar5 01/08 22:37 Interpretation: Normal except: UESTR 3+; UPROT 3+; UBLD 3+. tw4 EC:43 Rate is 73 beats/min. Rhythm is irregularly irregular, A fib. QRS [place] is Normal. [place] tw4 interval is normal. QRS interval is normal. QT interval is normal. No Q waves. T waves are Inverted in lead aVR. No ST changes noted. Clinical impression: Abnormal EKG without significant change. Interpreted by me. Reviewed by me. Administered Medications: No medications were administered Disposition: 01/08/19 22:35 Discharged to Home. Impression: Hemoptysis, Epistaxis. - Condition is Stable. - Discharge Instructions: Nosebleed, [id number], Hemoptysis, [id number]. - Medication Reconciliation Form, Thank You Letter, Antibiotic Education, Prescription Opioid Use form. - Follow up: Juan Pablo Byrne DO; When: Upon discharge from the Emergency Department; Reason: If symptoms return, Recheck today's complaints, Continuance of care. - Problem is new. - Symptoms have improved. Signatures: Dispatcher [employer] EDJazzy Joseph RN RN aj1 Kristal Owens RN RN bb Jose Alberto Corrales MD MD tw4 Corrections: (The following items were deleted from the chart) 01/08 22:59 22:35 01/08/2019 22:35 Discharged to Home. Impression: Hemoptysis; Epistaxis. Condition bb is Stable. Forms are Medication Reconciliation Form, Thank You Letter, Antibiotic Education, Prescription Opioid Use. Follow up: Juan Pablo Byrne; When: Upon discharge from the Emergency Department; Reason: If symptoms return, Recheck today's complaints, Continuance of care. Problem is new. Symptoms have improved. tw4
--- NOTE | 2019-01-09 10:42 | EKG ---
Test Date: 2019-01-08 Test Time: 19:32:25 Clinical Veterinarian: BRANNON MEASUREMENT RESULTS: Intervals: Rate: 73 UT: QRSD: 146 QT: 440 QTc: 484 [place]: P: UT: QRS: -40 T: 46 INTERPRETIVE STATEMENTS: Atrial fibrillation Left axis deviation Right bundle branch block Possible Lateral infarct, age undetermined Abnormal ECG Compared to ECG 01/03/2019 06:46:09 Sinus rhythm no longer present Myocardial infarct finding still present Electronically Signed On 01-09-19 10:42:11 CDT by Marin Bradley
== END 2019-01-08 22:59 | disposition home or self-care (01) ==
LOC: ER 19:17
DX: R04.0 Epistaxis (principal); E11.22 Type 2 diabetes mellitus with diabetic chronic kidney disease; N18.6 End stage renal disease; I12.0 Hypertensive chronic kidney disease with stage 5 chronic kidney disease or end stage renal disease; E11.319 Type 2 diabetes mellitus with unspecified diabetic retinopathy without macular edema; Z79.01 Long term (current) use of anticoagulants; Z79.4 Long term (current) use of insulin; Z88.1 Allergy status to other antibiotic agents; Z88.2 Allergy status to sulfonamides; Z99.2 Dependence on renal dialysis; Z95.818 Presence of other cardiac implants and grafts
CPT/HCPCS: 36415; 71045; 80048; 80076; 81003; 82550; 82553; 83690; 83735; 83880; 84484; 85025; 85379; 85610; 85730; 87040; 93005; 99284

== ENCOUNTER 2019-03-12 07:05 | Day surgery (SDC) | payer OTHER, MEDICARE ==
--- OUTSIDE RECORDS SUMMARY | 2019-03-12 07:11 | XMS REPORT | Clinical Summary ---
:1950 Author Organization [facility] [address] [facility] [place] [address] Care Team Providers Name Role Phone Unavailable [...] daily as needed tablet for Pain . pantoprazole Take 40 mg by 0 Active (PROTONIX) 40 MG mouth daily. tablet omega-3 fatty Take 2 g by mouth 0 Active acids-fish oil 2 (two) times 340-1,000 mg Cap daily . per capsule cholecalciferol, Take 10,000 Units 0 Active vitamin [...] Active (LOPROX) 0.77 % daily. 9 cream gabapentin Take 1 capsule 270 capsule 3 Active (NEURONTIN) 300 MG (300 mg total) by 9 020 capsule mouth 3 (three) times daily. apixaban (ELIQUIS) Take 1 tablet (2.5 180 tablet 0 Active 2.5 mg Tab tablet mg total) by mouth 9 2 (two) times daily. clopidogrel Take 75 mg by 0 Active (PLAVIX) 75 mg mouth daily. tablet amiodarone Take 1 tablet (200 30 tablet 11 Active (PACERONE) 200 MG mg total) by mouth 9 020 tablet daily. colchicine Take 0.5 tablets 4 tablet 11 Active (COLCRYS) 0.6 mg (0.3 mg total) by 9 020 tablet mouth twice a week. insulin aspart Inject 40 Units 0 Discontinued U-100 (NOVOLOG) subcutaneously 2 019 100 unit/mL (two) times daily. injection docusate sodium Take 100 mg by 0 Discontinued (COLACE) 100 MG mouth 2 (two) 019 capsule times daily. baclofen Take 5 mg by mouth 0 Discontinued (LIORESAL) 10 MG daily. 019 tablet famotidine Take 40 mg by 0 Discontinued (PEPCID) 40 MG mouth every 12 019 tablet (twelve) hours. lactulose Take 30 g by mouth 0 Discontinued (CHRONULAC) 10 2 (two) times 019 gram/15 mL (15 mL) daily . solution ramipril (ALTACE) Take 2.5 mg by 0 Discontinued 5 MG capsule mouth daily . 019 gabapentin Take 600 mg by 0 Discontinued (NEURONTIN) 300 MG mouth 3 (three) 019 capsule times daily On dialysis days (MWF). furosemide (LASIX) Take 80 mg by 0 Discontinued 80 MG tablet mouth daily. 019 calcium acetate Take 2,001 mg by 0 [...] SEE 1 Discontinued % cream ATTACHED FOR 019 DETAILED DIRECTIONS apixaban (ELIQUIS) Take 1 tablet (5 180 tablet 0 Discontinued 5 mg Tab tablet mg total) by mouth 9 019 2 (two) times daily. amiodarone amiodarone 200mg 90 tablet 0 Discontinued (PACERONE) 200 MG twice daily for 9 019 tablet one week (until 01/14/10) then 200mg daily. ticagrelor Take for 12 months 90 tablet 0 Discontinued (BRILINTA) 90 mg After 12 months stop. 9 019 Tab tablet aspirin 81 MG Take for 3 months, then STOP months 4-12 90 tablet 0 Discontinued chewable tablet Restart after 12 months. 9 019 metoprolol Take 0.5 tablets 180 tablet 0 Discontinued (LOPRESSOR) 25 MG (12.5 mg total) by 9 019 tablet mouth 2 (two) times daily. polyethylene Take 17 g by mouth 14 each 0 glycol (GLYCOLAX) daily for 30 days. 9 019 17 gram packet lactulose Take 60 mLs (40 g 3600 mL 0 (CHRONULAC) 10 total) by mouth 2 9 019 gram/15 mL (15 mL) (two) times daily solution for 30 days. Active Problems Problem Noted Date Pleural effusion on left 01/18/2019 Pericardial tamponade 01/18/2019 Chest pain 01/03/2019 ESRD on hemodialysis 01/03/2019 Fever, unspecified fever cause Hypotension due to hypovolemia ESRD (end stage renal disease) on dialysis Encounters Date Type Specialty Care Team Description 01/18/2019 Surgery Agustin Rios, PERICARDIOCENTESIS 01/18/2019 Hospital Cardiology Dennis Correa MD Pleural effusion on left (Primary Dx); - Encounter Miguel Collins MD Dyspnea and respiratory abnormality; 01/23/2019 Maci Olsen MD On continuous oral anticoagulation; Guicho Encarnacion, ESRD on hemodialysis ([facility]); History of diabetes mellitus; Unstable angina pectoris ([facility]); Hypotension due to hypovolemia; Pericardial tamponade; Fever, unspecified fever cause; Coronary artery disease involving [place] coronary artery of [place] heart without angina pectoris; S/P PTCA (percutaneous transluminal coronary angioplasty); Cardiac tamponade; S/P pericardiocentesis 01/18/2019 Orders Only General Internal Medicine 01/18/2019 Travel 01/10/2019 Orders Only Internal Medicine Rebecca Cat MD 01/05/2019 Travel 01/03/2019 Anesthesia Event Raj Segura MD 01/03/2019 Surgery Agustin Rios, L CATH & PCI 01/03/2019 [facility]) ( Primary Dx); - Encounter Alicia Stable angina pectoris ([facility]); 01/08/2019 MD Mg ESRD on hemodialysis ([facility]); Nikky Lr MD SOB (shortness of breath); Cesar, Hypervolemia, unspecified hypervolemia type; MD Jyotsna Unstable angina ([facility]); [place], Status post insertion of drug-eluting stent into left anterior descending (LAD) artery for coronary artery disease; Rebecca Ferro, Percutaneous transluminal coronary angioplasty (PTCA) within last 14 to 24 months; Other specified hypotension; Hyperkalemia; NSTEMI (non-ST elevated myocardial infarction) ([facility]); Coronary artery disease involving [place] coronary artery of [place] heart with unstable angina pectoris ([facility]); Paroxysmal atrial fibrillation ([facility]); Hypotension due to hypovolemia 01/03/2019 Orders Only General Internal Medicine after 03/11/2018 Family History Medical History Relation Name Comments [...] Vital Sign Reading Time Taken Blood Pressure 134/51 01/23/2019 5:00 PM CDT Pulse 82 01/23/2019 5:00 PM CDT Temperature 36.7 C (98 F) 01/23/2019 5:00 PM CDT Respiratory Rate 20 01/23/2019 5:00 PM CDT Oxygen Saturation 97% 01/23/2019 5:00 PM CDT Inhaled Oxygen Concentration 21% 01/04/2019 4:14 PM CDT Weight 130.6 kg (287 lb 14.7 oz) 01/23/2019 5:00 PM CDT Height 180.3 cm (5' 11") 01/18/2019 7:15 AM CDT Body Mass Index 40.16 01/23/2019 5:00 PM CDT Plan of Treatment Not on file Implants Implanted Type Area Cafe Server Device Identifier Shelf Model / Expiration Serial / Date Lot Stent Synergy Otw [id number] - [id number] IMPLANTS N/A: [place] [id number] 04/03/2020 [id number] / Implanted: Qty: 1 on 01/03/2019 by Agustin Rios MD Heart SCI:INTERV / CARDIOLOGY [id number] Stent Synergy Otw [id number] - [id number] IMPLANTS N/A: [place] [id number] 08/12/2020 [id number] / Implanted: Qty: 1 on 01/03/2019 by Agustin Rios MD Heart SCI:INTERV / CARDIOLOGY [id number] Stent Synergy Otw [id number] - [id number] IMPLANTS N/A: [place] [id number] 05/07/2020 [id number] / Implanted: Qty: 1 on 01/03/2019 by Agustin Rios MD Heart SCI:INTERV / CARDIOLOGY [id number] Procedures Procedure Name Priority Date/Time Associated Diagnosis Comments RHYTHM STRIP - SCAN 02/01/2019 8:31 AM CDT RHYTHM STRIP - SCAN 01/24/2019 10:50 AM CDT REPORT OF PROCEDURE - 01/24/2019 ENDOSCOPY SCAN 10:50 AM CDT CARDIAC CATH REPORT - 01/24/2019 SCAN 10:50 AM CDT HEMODIALYSIS INPATIENT Routine 01/23/2019 Results for 5:15 PM CDT this procedure are in the results section. POCT-GLUCOSE METER Routine 01/23/2019 Results for 12:27 PM CDT this procedure are in the results section. POCT-GLUCOSE METER Routine 01/23/2019 Results for 7:31 AM CDT this procedure are in the results section. CBC W/PLT COUNT & AUTO Routine 01/23/2019 Results for DIFFERENTIAL 5:05 AM CDT this procedure are in the results section. COMPREHENSIVE METABOLIC Routine 01/23/2019 Results for PANEL 5:05 AM CDT this procedure are in the results section. C-REACTIVE PROTEIN Routine 01/23/2019 Results for 5:05 AM CDT this procedure are in the results section. CBC W/PLT COUNT & AUTO Routine 01/23/2019 Results for DIFFERENTIAL 5:05 AM CDT this procedure are in the results section. POCT-GLUCOSE METER Routine 01/22/2019 Results for 10:13 PM CDT this procedure are in the results section. MR CARDIAC WITHOUT Routine 01/22/2019 Results for CONTRAST 7:13 PM CDT this procedure are in the results section. POCT-GLUCOSE METER Routine 01/22/2019 Results for 12:04 PM CDT this procedure are in the results section. POCT-GLUCOSE METER Routine 01/22/2019 Results for 7:55 AM CDT this procedure are in the results section. POCT-GLUCOSE METER Routine 01/21/2019 Results for 9:53 PM CDT this procedure are in the results section. ECHOCARDIOGRAM REPORT - 01/21/2019 SCAN 9:21 PM CDT POCT-GLUCOSE METER Routine 01/21/2019 Results for 5:49 PM CDT this procedure are in the results section. HEMODIALYSIS INPATIENT Routine 01/21/2019 3:25 PM CDT LIMITED 2D STAT 01/21/2019 Results for ECHOCARDIOGRAM 12:14 PM CDT this procedure are in the results section. POCT-GLUCOSE METER Routine 01/21/2019 Results for 11:23 AM CDT this procedure are in the results section. POCT-GLUCOSE METER Routine 01/21/2019 Results for 7:30 AM CDT this procedure are in the results section. CBC W/PLT COUNT & AUTO Routine 01/21/2019 Results for DIFFERENTIAL 4:21 AM CDT this procedure are in the results section. PHOSPHORUS Routine 01/21/2019 Results for 4:21 AM CDT this procedure are in the results section. MAGNESIUM Routine 01/21/2019 Results for 4:21 AM CDT this procedure are in the results section. BASIC METABOLIC PANEL Routine 01/21/2019 Results for (7) 4:21 AM CDT this procedure are in the results section. CBC W/PLT COUNT & AUTO Routine 01/21/2019 Results for DIFFERENTIAL 4:21 AM CDT this procedure are in the results section. POCT-GLUCOSE METER Routine 01/20/2019 Results for 9:29 PM CDT this procedure are in the results section. TRANSFUSION SERVICE 01/20/2019 REPORT - SCAN 6:00 PM CDT POCT-GLUCOSE METER Routine 01/20/2019 Results for 5:24 PM CDT this procedure are in the results section. POCT-GLUCOSE METER Routine 01/20/2019 Results for 11:57 AM CDT this procedure are in the results section. POCT-GLUCOSE METER Routine 01/20/2019 Results for 8:03 AM CDT this procedure are in the results section. CBC W/PLT COUNT & AUTO Routine 01/20/2019 Results for DIFFERENTIAL 4:32 AM CDT this procedure are in the results section. MAGNESIUM Routine 01/20/2019 Results for 4:32 AM CDT this procedure are in the results section. BASIC METABOLIC PANEL Routine 01/20/2019 Results for (7) 4:32 AM CDT this procedure are in the results section. CBC W/PLT COUNT & AUTO Routine 01/20/2019 Results for DIFFERENTIAL 4:32 AM CDT this procedure are in the results section. VANCOMYCIN LEVEL, Routine 01/20/2019 Results for RANDOM 4:32 AM CDT this procedure are in the results section. PREPARE LEUKO-REDUCED Routine 01/19/2019 Results for RBC 11:54 PM CDT this procedure are in the results section. ECHOCARDIOGRAM REPORT - 01/19/2019 SCAN 9:20 PM CDT POCT-GLUCOSE METER Routine 01/19/2019 Results for 9:17 PM CDT this procedure are in the results section. XR CHEST PA OR AP 1 Routine 01/19/2019 Results for VIEW IN DEPT. 6:37 PM CDT this procedure are in the results section. POCT-GLUCOSE METER Routine 01/19/2019 Results for 6:24 PM CDT this procedure are in the results section. TRIGLYCERIDES, BODY Routine 01/19/2019 Results for FLUID 6:12 PM CDT this procedure are in the results section. SPECIFIC GRAVITY, BODY Routine 01/19/2019 Results for FLUID 6:12 PM CDT this procedure are in the results section. PROTEIN, BODY FLUID Routine 01/19/2019 Results for 6:12 PM CDT this procedure are in the results section. LACTATE DEHYDROGENASE Routine 01/19/2019 Results for (LDH), BODY FLUID 6:12 PM CDT this procedure are in the results section. GLUCOSE, BODY FLUID Routine 01/19/2019 Results for 6:12 PM CDT this procedure are in the results section. CREATININE, BODY FLUID Routine 01/19/2019 Results for 6:12 PM CDT this procedure are in the results section. BODY FLUID CRYSTALS AP Routine 01/19/2019 Results for 6:12 PM CDT this procedure are in the results section. BODY FLUID CELL COUNT Routine 01/19/2019 Results for WITH DIFFERENTIAL 6:12 PM CDT this procedure are in the results section. AMYLASE, BODY FLUID Routine 01/19/2019 Results for 6:12 PM CDT this procedure are in the results section. ALBUMIN, BODY FLUID Routine 01/19/2019 Results for 6:12 PM CDT this procedure are in the results section. ADENOSINE DEAMINASE, Routine 01/19/2019 Results for FLUID 6:12 PM CDT this procedure are in the results section. PROTEIN, BODY FLUID Routine 01/19/2019 Results for 6:12 PM CDT this procedure are in the results section. PH, BODY FLUID Routine 01/19/2019 Results for 6:12 PM CDT this procedure are in the results section. LACTATE DEHYDROGENASE Routine 01/19/2019 Results for (LDH), BODY FLUID 6:12 PM CDT this procedure are in the results section. BODY FLUID CELL COUNT Routine 01/19/2019 Results for WITH DIFFERENTIAL 6:12 PM CDT this procedure are in the results section. AFB CULTURE + SMEAR Routine 01/19/2019 Results for 6:11 PM CDT this procedure are in the results section. FUNGUS CULTURE + SMEAR Routine 01/19/2019 Results for 6:11 PM CDT this procedure are in the results section. BODY FLUID CULTURE + Routine 01/19/2019 Results for GRAM STAIN 6:11 PM CDT this procedure are in the results section. US THORACENTESIS Routine 01/19/2019 Results for 6:08 PM CDT this procedure are in the results section. TRANSFUSION SERVICE 01/19/2019 REPORT - SCAN 6:01 PM CDT HEMODIALYSIS INPATIENT Routine 01/19/2019 Results for 1:09 PM CDT this procedure are in the results section. POCT-GLUCOSE METER Routine 01/19/2019 Results for 12:56 PM CDT this procedure are in the results section. XR CHEST 1 VIEW Routine 01/19/2019 Results for PORTABLE/BEDSIDE 10:15 AM CDT this procedure are in the results section. CBC W/PLT COUNT & AUTO Routine 01/19/2019 Results for DIFFERENTIAL 4:29 AM CDT this procedure are in the results section. VANCOMYCIN LEVEL, Routine 01/19/2019 Results for RANDOM 4:29 AM CDT this procedure are in the results section. CBC W/PLT COUNT & AUTO Routine 01/19/2019 Results for DIFFERENTIAL 4:29 AM CDT this procedure are in the results section. BASIC METABOLIC PANEL Routine 01/19/2019 Results for (7) 4:29 AM CDT this procedure are in the results section. HEMODIALYSIS INPATIENT Routine 01/19/2019 12:12 AM CDT POCT-GLUCOSE METER Routine 01/19/2019 Results for 12:02 AM CDT this procedure are in the results section. TRANSFUSE LEUKO-REDUCED Routine 01/18/2019 RED BLOOD CELLS 11:01 PM CDT ECHOCARDIOGRAM REPORT - 01/18/2019 SCAN 9:20 PM CDT ABORH, MANUAL STAT 01/18/2019 Results for 9:10 PM CDT this procedure are in the results section. TYPE AND SCREEN, STAT 01/18/2019 Results for AUTOMATED 8:03 PM CDT this procedure are in the results section. POCT-GLUCOSE METER Routine 01/18/2019 Results for 8:01 PM CDT this procedure are in the results section. ALBUMIN, BODY FLUID Routine 01/18/2019 Results for 6:30 PM CDT this procedure are in the results section. BODY FLUID CELL COUNT Routine 01/18/2019 Results for WITH DIFFERENTIAL 6:30 PM CDT this procedure are in the results section. BODY FLUID CULTURE + Routine 01/18/2019 Results for GRAM STAIN 6:30 PM CDT this procedure are in the results section. ADENOSINE DEAMINASE, Routine 01/18/2019 Results for FLUID 6:30 PM CDT this procedure are in the results section. LIMITED 2D Routine 01/18/2019 Results for ECHOCARDIOGRAM 6:16 PM CDT this procedure are in the results section. PERICARDIOCENTESIS 01/18/2019 S/P pericardiocentesis 4:55 PM CDT 2D ECHO MODE W/O STAT 01/18/2019 Results for DOPPLER 2:20 PM CDT this procedure are in the results section. ECG 12-LEAD Routine 01/18/2019 10:52 AM CDT Procedure Note - Interface, External Ris In - 01/18/2019 12:27 PM CDT Ventricular Rate 85 BPM Atrial Rate 85 BPM P-R Interval 256 ms QRS Duration 148 ms Q-T Interval 422 ms QTC Calculation(Bazett) 502 ms P Knippa 28 degrees R Knippa -42 degrees T Knippa 68 degrees Sinus rhythm with 1st degree A-V block Left axis deviation Right bundle branch block Abnormal ECG When compared with ECG of 05-JAN-2019 09:08, Sinus rhythm has replaced Atrial fibrillation QT has lengthened ECG 12-LEAD Routine 01/18/2019 10:52 Results for this AM CDT procedure are in the results section. BLOOD CULTURE STAT 01/18/2019 9:57 Results for this AM CDT procedure are in the results section. BLOOD CULTURE STAT 01/18/2019 9:57 Results for this AM CDT procedure are in the results section. POCT-LACTIC ACID, Routine 01/18/2019 8:00 Results for this VENOUS AM CDT procedure are in the results section. CBC W/PLT COUNT & AUTO STAT 01/18/2019 7:59 Results for this DIFFERENTIAL AM CDT procedure are in the results section. B-TYPE NATRIURETIC STAT 01/18/2019 7:59 Results for this FACTOR (BNP) AM CDT procedure are in the results section. CBC W/PLT COUNT & AUTO STAT 01/18/2019 7:59 Results for this DIFFERENTIAL AM CDT procedure are in the results section. PROTHROMBIN TIME/INR STAT 01/18/2019 7:59 Results for this AM CDT procedure are in the results section. TROPONIN I STAT 01/18/2019 7:59 Results for this AM CDT procedure are in the results section. HEPATIC FUNCTION PANEL STAT 01/18/2019 7:59 Results for this AM CDT procedure are in the results section. BASIC METABOLIC PANEL STAT 01/18/2019 7:59 Results for this (7) AM CDT procedure are in the results section. PROCALCITONIN STAT 01/18/2019 7:59 Results for this AM CDT procedure are in the results section. XR CHEST 1 VIEW STAT 01/18/2019 7:44 Results for this PORTABLE/BEDSIDE AM CDT procedure are in the results section. VASCULAR DIAGRAM -SCAN 01/10/2019 5:24 PM CDT REPORT OF PROCEDURE - 01/10/2019 11:00 ENDOSCOPY SCAN AM CDT CARDIAC CATH REPORT - 01/10/2019 11:00 SCAN AM CDT RHYTHM STRIP - SCAN 01/10/2019 11:00 AM CDT VASCULAR DIAGRAM -SCAN 01/10/2019 11:00 AM CDT XR CHEST 1 VIEW Routine 01/08/2019 3:10 [...] CDT procedure are in the results section. HEMOGLOBIN A1C Routine 01/08/2019 5:00 Results for this AM [...] are in the results section. ECG 12-LEAD GLORIA 01/05/2019 9:08 Results for this AM CDT procedure are [...] results section. BLOOD CULTURE Routine 01/05/2019 4:08 Results for this AM CDT procedure are in the results section. BLOOD CULTURE Routine 01/05/2019 3:35 Results for this AM CDT procedure are [...] CDT procedure are in the results section. FL INSERT Routine 01/03/2019 10:22 Other specified Results [...] 404 ms QTC Calculation(Bazett) 445 ms P Knippa 44 degrees R Knippa -56 degrees T Knippa 22 degrees Sinus rhythm with 1st degree [...] 372 ms QTC Calculation(Bazett) 455 ms P Knippa 45 degrees R Knippa -58 degrees T Knippa 41 degrees Sinus rhythm with 1st degree A-V block Right bundle branch block Left anterior fascicular block Bifascicular block Abnormal ECG No previous ECGs available after 03/11/2018 Results RHYTHM STRIP - SCAN (02/01/2019 8:31 AM CDT)Only the most recent of3 resultswithin the time period is included. Narrative Performed At EKG-SCANNED (01/24/2019 10:50 AM CDT)Only the most recent of2 resultswithin the time period is included. Narrative Performed At CARDIAC CATH REPORT - SCAN (01/24/2019 10:50 AM CDT) Narrative Performed At HEMODIALYSIS INPATIENT (01/23/2019 5:15 PM CDT) Narrative Performed At Ifeanyi Kasper RN 01/23/20195:16 PM 3.5Hrs Hemodialysis completed. Net UF 2.5kg. Procedure tolerated. Lab Results Component Value Date GLUCOSE 170 (H) 01/23/2019 CALCIUM 9.0 01/23/2019 NA 137 01/23/2019 K 4.0 01/23/2019 CO2 27 01/23/2019 CL 99 01/23/2019 BUN 32 (H) 01/23/2019 CREATININE 7.10 (H) 01/23/2019 Lab Results Component Value Date WBC 6.3 01/23/2019 HGB 7.2 (L) 01/23/2019 HCT 23.3 (L) 01/23/2019 MCV 96.7 (H) 01/23/2019 PLT 236 01/23/2019 Lab Results Component Value Date HEPBSAG Nonreactive 01/04/2019 POC-Glucose meter (01/23/2019 12:27 PM CDT)Only the most recent of38 resultswithin the time period is included. POC-Glucose Meter 214 (H)Comment: TESTED AT 70 - 110 mg/dL [address] [address] Specimen Blood Performing Organization Address City/[facility]/Zipcode Phone Number [address] [address] [phone] CENTER C-Reactive Protein (01/23/2019 5:05 AM CDT) CRP 9.80 (H) 0.00 - 0.50 mg/dL [facility] Specimen Blood Performing Organization Address City/[facility]/Zipcode Phone Number [address] [address] [phone] CENTER CBC with platelet count + automated diff (01/23/2019 5:05 AM CDT)Only the most recent of10 resultswithin the time period is included. WBC 6.3 3.5 - 10.5 K/L [facility] RBC 2.41 (L) 4.63 - 6.08 M/L [facility] Hemoglobin 7.2 (L) 13.7 - 17.5 GM/DL [facility] Hematocrit 23.3 (L) 40.1 - 51.0 % [facility] MCV 96.7 (H) 79.0 - 92.2 fL [facility] MCH 29.9 25.7 - 32.2 pg [facility] MCHC 30.9 (L) 32.3 - 36.5 GM/DL [facility] RDW 15.4 (H) 11.6 - 14.4 % [facility] Platelets 236 150 - 450 K/CU MM [facility] MPV 11.8 9.4 - 12.4 fL [facility] nRBC 0 0 - 0 /100 WBC [facility] % Neutros 65 % [facility] % Lymphs 20 % [facility] % Monos 11 % [facility] % Eos 3 % [facility] % Baso 1 % [facility] # Neutros 4.11 1.78 - 5.38 K/L [facility] # Lymphs 1.25 (L) 1.32 - 3.57 K/L [facility] # Monos 0.67 0.30 - 0.82 K/L [facility] # Eos 0.20 0.04 - 0.54 K/L [facility] # Baso 0.06 0.01 - 0.08 K/L [facility] Immature Granulocytes-Relative 1 0 - 1 % [facility] Specimen Blood Performing Organization Address City/State/Zipcode Phone Number [facility] [address] [place] [address] CENTER Comprehensive metabolic panel (01/23/2019 5:05 AM CDT)Only the most recent of3 resultswithin the time period is included. Protein, Total 5.8 (L) 6.0 - 8.3 gm/dL [facility] Albumin 3.1 (L) 3.5 - 5.0 g/dL [facility] Alkaline Phosphatase 99 40 - 150 U/L [facility] Total Bilirubin 0.4 0.2 - 1.2 mg/dL [facility] Sodium 137 136 - 145 meq/L [facility] Potassium 4.0 3.5 - 5.1 meq/L [facility] Chloride 99 98 - 107 meq/L [facility] CO2 27 22 - 29 meq/L [facility] BUN 32 (H) 7 - 21 mg/dL [facility] Creatinine 7.10 (H) 0.57 - 1.25 mg/dL [facility] Glucose 170 (H) 70 - 105 mg/dL [facility] Calcium 9.0 8.4 - 10.2 mg/dL [facility] AST 14 5 - 34 U/L [facility] ALT 21 6 - 55 U/L [facility] EGFR 8Comment: ESTIMATED GFR mL/min/1.73 sq m [facility] IS NOT ACCURATE [facility] CREATININE CLEARANCE IN PREDICTING GLOMERULAR FILTRATION RATE. ESTIMATED GFR IS NOT APPLICABLE FOR DIALYSIS PATIENTS. Specimen Blood Performing Organization Address City/State/Zipcode Phone Number [facility] [address] [place] [address] [place] MR cardiac without IV contrast (01/22/2019 7:13 PM CDT) Specimen Narrative Performed At FINAL REPORT [facility] Cardiac MRI dated 22 Jan 2019 INDICATION: Is a 68 year-old male with with past medical history of end-stage renal disease, coronary artery disease, PCI, on anticoagulation, there is a concern for underlying constrictive physiology. TECHNIQUE: Tali 3 Shauna INGENIA MRI scanner. Morphologic and dynamic cine imaging were performed in multiple projections without the administration.Finally, flow quantification sequences were performed to determine the degree of valvular dysfunction. Patient weight 277 pounds, with height of 71 inches. Body surface area is 2.51 sq m. FINDINGS: The chest wall and mediastinum appears grossly unremarkable. MR is not optimised assessment of pulmonary parenchymal lung disease. Bibasal pleural effusion is identified, overall mild in nature, left greater than right, and associated lytic changes/consolidation is identified in the right base. The central pulmonary artery is mildly prominent. The cardiac chambers demonstrate normal atrioventricular and ventriculoarterial concordance, and systemic and pulmonary venous return.The thoracic aorta is normal in course, calibre, and contour. There is no evidence of acute aortic pathology, such as dissection, intramural hematoma, or contained rupture. Abundance of pericardial fat is noted. Epicardial fat is also noted. In the four-chamber orientation, circumferential pericardial effusion is seen, overall mild to moderate in nature. In the four-chamber orientation, and during end diastole, the maximum thickness of the pericardial effusion adjacent to the free wall of the left ventricle is approximately 9 to 10 mm. Intermediate signal intensity is identified in the pericardial effusion, with some heterogeneous appearance, suggesting it is not simple in nature. Per original aspiration report, the pericardial fluid was serosanguineous in appearance. In the presence of the pericardial effusion, the visceral and the parietal pericardium is relatively well seen, and in the available images, the pericardium is not thickened. Similarly, tagging images were attempted, and no obvious reduction in the deformation is present that would suggest adherent of the LV ventricular wall to the pericardium. In the cine imaging, abnormal septal motion is identified suggesting septal bounce during the cine imaging. Multiple real-time cine imaging was performed in the lung and the best sequence was sent to PACS. During deep inspiration, there is NO convincing evidence of deviation of the septum towards the left ventricle, that would suggest raised interventricular dependence. The left ventricle is normal in size, shape, and function. Quantitative values are as follows: ORQ=544 cc; ESV=73 cc; stroke zjllra=734 cc; and ejection fraction=59%.Calculated absolute cardiac output=8.5 liters/min.Absolute left ventricular mass= 108 grams. The right ventricle is normal in size and function. Quantitative values are as follows: OKW=152 cc; ESV=78 cc; stroke jatdxo=656 cc; and ejection fraction=57%. Index RV EDV=82 cc/sq m that is within normal reference range. Cine imaging and flow quantification reveals no gross abnormality of the mitral, aortic and tricuspid valve function. Gadolinium was not administered. Ventricular thrombus is not present. A degree of lipomatous hypertrophy of interatrial septum is noted. Left and right atrial enlargement is visualised. CONCLUSIONS: This is a challenging examination. 1.The left and the right ventricles are normal in size and function. Quantitative left and right ventricular functional values as described above. 2.Patient is known to have large pericardial effusion, post pericardiocentesis. At the time of this examination, overall mild to moderate circumference of pericardial effusion is seen, and the thickness of the pericardial fluid, is approximately 9 to 10 mm adjacent to the free wall of the left ventricle. Intermediate signal intensity as well as heterogeneous appearance is identified in the gradient echo images, suggesting the fluid is not simple in nature the time of imaging. The pericardium is NOT thickened at the time of imaging. This study was performed as there was a concern for underlying constrictive physiology. There is abnormal septal motion clearly seen, suggesting septal bounce. The morphology of the left and the right ventricles are readily unremarkable (the left ventricle is not tubular and the right ventricle is not conical morphology). The central pulmonary artery is mildly prominent of the IVC is unremarkable. Multiple attempts was madeto demonstrate increased interventricular dependence - however, during deep inspiration, NO significant deviation of the interventricular septum towards the left ventricle is identified that would suggest underlying constrictive physiology. Note, multiple real-time imaging was performed, with adequate patient education, however, there was only limited movement of the diaphragm during inspiration, and therefore the result could be limited by patient factor. In summary, whilst some pericardial effusion is seen and septal bounce is identified, the conclusion is there is absence of constrictive physiology in the real-time cine imaging. Echo Doppler imaging could be a simpler approach for further physiologic assessment. 2.Other findings as described above. Overall mild bibasal pleural effusion, left greater than right, and associated atelectatic changes/consolidation is identified in the left base Signed: Alfonzo Almanza MD Report Verified Date/Time:01/23/2019 07:10:40 Reading Location: [place] [address] Cardiology MRI Procedure Note Interface, External Ris In - 01/23/2019 7:12 AM CDT FINAL REPORT Cardiac MRI dated 22 Jan 2019 INDICATION: Is a 68 year-old male with with past medical history of end-stage renal disease, coronary artery disease, PCI, on anticoagulation, there is a concern for underlying constrictive physiology. TECHNIQUE: [facility]. Morphologic and dynamic cine imaging were performed in multiple projections without the administration. Finally, flow quantification sequences were performed to determine the degree of valvular dysfunction. Patient weight 277 pounds, with height of 71 inches. Body surface area is 2.51 sq m. FINDINGS: The chest wall and mediastinum appears grossly unremarkable. MR is not optimised assessment of pulmonary parenchymal lung disease. Bibasal pleural effusion is identified, overall mild in nature, left greater than right, and associated lytic changes/consolidation is identified in the right base. The central pulmonary artery is mildly prominent. The cardiac chambers demonstrate normal atrioventricular and ventriculoarterial concordance, and systemic and pulmonary venous return. The thoracic aorta is normal in course, calibre, and contour. There is no evidence of acute aortic pathology, such as dissection, intramural hematoma, or contained rupture. Abundance of pericardial fat is noted. Epicardial fat is also noted. In the four-chamber orientation, circumferential pericardial effusion is seen, overall mild to moderate in nature. In the four-chamber orientation, and during end diastole, the maximum thickness of the pericardial effusion adjacent to the free wall of the left ventricle is approximately 9 to 10 mm. Intermediate signal intensity is identified in the pericardial effusion, with some heterogeneous appearance, suggesting it is not simple in nature. Per original aspiration report, the pericardial fluid was serosanguineous in appearance. In the presence of the pericardial effusion, the visceral and the parietal pericardium is relatively well seen, and in the available images, the pericardium is not thickened. Similarly, tagging images were attempted, and no obvious reduction in the deformation is present that would suggest adherent of the LV ventricular wall to the pericardium. In the cine imaging, abnormal septal motion is identified suggesting septal bounce during the cine imaging. Multiple real-time cine imaging was performed in the lung and the best sequence was sent to PACS. During deep inspiration, there is NO convincing evidence of deviation of the septum towards the left ventricle, that would suggest raised interventricular dependence. The left ventricle is normal in size, shape, and function. Quantitative values are as follows: MGV=491 cc; ESV=73 cc; stroke wjrreb=131 cc; and ejection fraction=59%. Calculated absolute cardiac output=8.5 liters/min. Absolute left ventricular mass= 108 grams. The right ventricle is normal in size and function. Quantitative values are as follows: IXH=228 cc; ESV=78 cc; stroke bepinv=620 cc; and ejection fraction=57%. Index RV EDV=82 cc/sq m that is within normal reference range. Cine imaging and flow quantification reveals no gross abnormality of the mitral, aortic and tricuspid valve function. Gadolinium was not administered. Ventricular thrombus is not present. A degree of lipomatous hypertrophy of interatrial septum is noted. Left and right atrial enlargement is visualised. CONCLUSIONS: This is a challenging examination. 1. The left and the right ventricles are normal in size and function. Quantitative left and right ventricular functional values as described above. 2. Patient is known to have large pericardial effusion, post pericardiocentesis. At the time of this examination, overall mild to moderate circumference of pericardial effusion is seen, and the thickness of the pericardial fluid, is approximately 9 to 10 mm adjacent to the free wall of the left ventricle. Intermediate signal intensity as well as heterogeneous appearance is identified in the gradient echo images, suggesting the fluid is not simple in nature the time of imaging. The pericardium is NOT thickened at the time of imaging. This study was performed as there was a concern for underlying constrictive physiology. There is abnormal septal motion clearly seen, suggesting septal bounce. The morphology of the left and the right ventricles are readily unremarkable (the left ventricle is not tubular and the right ventricle is not conical morphology). The central pulmonary artery is mildly prominent of the IVC is unremarkable. Multiple attempts was made to demonstrate increased interventricular dependence - however, during deep inspiration, NO significant deviation of the interventricular septum towards the left ventricle is identified that would suggest underlying constrictive physiology. Note, multiple real-time imaging was performed, with adequate patient education, however, there was only limited movement of the diaphragm during inspiration, and therefore the result could be limited by patient factor. In summary, whilst some pericardial effusion is seen and septal bounce is identified, the conclusion is there is absence of constrictive physiology in the real-time cine imaging. Echo Doppler imaging could be a simpler approach for further physiologic assessment. 2. Other findings as described above. Overall mild bibasal pleural effusion, left greater than right, and associated atelectatic changes/consolidation is identified in the left base Signed: Alfonzo Almanaz MD Report Verified Date/Time: 01/23/2019 07:10:40 Reading Location: [place] [address] Cardiology MRI Performing Organization Address City/State/Zipcode Phone Number [place] ECHOCARDIOGRAM REPORT - SCAN (01/21/2019 9:21 PM CDT) Narrative Performed At Limited 2D Echocardiogram (01/21/2019 12:14 PM CDT) Ejection Fraction [facility] ECHO [facility]ART[facility] Specimen Narrative Performed At Transthoracic Echocardiography Report (TTE) [facility]CHO [facility]ART[facility] Demographics Patient NameCARMICHAEL,Date of Study01/21/2019 SHELLI MAGUIRE Gender Male Visit [id number] Race [id number] Number Date of 1950 ReferringGuicho Encarnacion Physician Age 68 year(s) SonographerLeila Wing RDCS Biomass Plant Manager Niesha Diamond RDCS Interpreting Physician CHIKA Vides Procedure Type of Study TTE procedure:LIMITED 2D ECHOCARDIOGRAM (STAT) Indications:Suspected Pericardial conditions. Clinical History Pleural effusion, Pericardial tamponade, L cath/PCI 01/03/19, CHF, DM, ESRD, Hep A, HTN HGB 7.7 HCT 25.2 % Height: 71 inches Weight: 130.63 kg (288 lbs) BSA: 2.46 m^2 BMI: 40.17 kg/m^2 HR: 83 bpm BP: 116/58 mmHg Previous Study Compared to the previous study 01/18/2019 the patient is post pericardiocentesis. Signature Findings Technical Quality: Technically difficult exam. LeftLimited 2D exam (no Doppler) to address study indication: Ventricle pericardial effusion check. Estimated LVEF by qualitative assessment is normal (>60%) . Aorta Aortic root size (SInus of Valsalva diameter) is normal . Pericardium A huoyb-sh-lveezcwe pericardial effusion is present . Greatest pericardial end-diastolic size is approx. 1.21 cm. The following present: respirophasic variation of 32% in the mitral valve inflow. Chambers/Structures Left Ventricle LVIDd: 5.18 cm LV Septum Diastolic: 1.12 cm LV PW Diastolic: 1 cm LVOT Diameter: 2.22 cm Aorta Ao Root S of Linda.: 3.01 cm Doppler/Quantitative Measurements LVOT LVOT Diameter: 2.22 cm LVOT Area: 3.87 cm^2 Procedure Note Interface, External Ris In - 01/21/2019 1:54 PM CDT Transthoracic Echocardiography Report (TTE) Demographics Patient Name RUCHI, Date of Study 01/21/2019 SHELLI MAGUIRE Gender Male Visit Number [id number] Race Room Number [id number] Number Date of 1950 Referring Guicho Encarnacion Physician Age 68 year(s) Manufacturing Process Engineer Leila Wing RDCS Biomass Plant Manager Niesha Diamond RDCS Interpreting Physician CHIKA Vides Procedure Type of Study TTE procedure:LIMITED 2D ECHOCARDIOGRAM (STAT) Indications:Suspected Pericardial conditions. Clinical History Pleural effusion, Pericardial tamponade, L cath/PCI 01/03/19, CHF, DM, ESRD, Hep A, HTN HGB 7.7 HCT 25.2 % Height: 71 inches Weight: 130.63 kg (288 lbs) BSA: 2.46 m^2 BMI: 40.17 kg/m^2 HR: 83 bpm BP: 116/58 mmHg Previous Study Compared to the previous study 01/18/2019 the patient is post pericardiocentesis. Signature Findings Technical Quality: Technically difficult exam. Left Limited 2D exam (no Doppler) to address study indication: Ventricle pericardial effusion check. Estimated LVEF by qualitative assessment is normal (>60%) . Aorta Aortic root size (SInus of Valsalva diameter) is normal . Pericardium A [id number]-[id number] pericardial effusion is present . Greatest pericardial end-diastolic size is approx. 1.21 cm. The following present: respirophasic variation of 32% in the mitral valve inflow. Chambers/Structures Left Ventricle LVIDd: 5.18 cm LV Septum Diastolic: 1.12 cm LV PW Diastolic: 1 cm LVOT Diameter: 2.22 cm Aorta Ao Root S of Linda.: 3.01 cm Doppler/Quantitative Measurements LVOT LVOT Diameter: 2.22 cm LVOT Area: 3.87 cm^2 Performing Organization Address City/[facility] Phone Number [facility] ECHO HEART[facility] Phosphorus (01/21/2019 4:21 AM CDT)Only the most recent of3 resultswithin the time period is included. Phosphorus 4.7 2.3 - 4.7 mg/dL [facility] Specimen Blood Performing Organization Address City/[facility]/Zipcode Phone Number [place] [phone] [place], [place] [phone] CENTER Magnesium (01/21/2019 4:21 AM CDT)Only the most recent of8 resultswithin the time period is included. Magnesium 1.9 1.6 - 2.6 mg/dL [facility] Specimen Blood Performing Organization Address City/[facility]/Zipcode Phone Number [facility] [address] [place] [address] [place] Basic Metabolic Panel (01/21/2019 4:21 AM CDT)Only the most recent of10 resultswithin the time period is included. Sodium 135 (L) 136 - 145 meq/L [facility] Potassium 4.2 3.5 - 5.1 meq/L [facility] Chloride 99 98 - 107 meq/L [facility] CO2 25 22 - 29 meq/L [facility] BUN 33 (H) 7 - 21 mg/dL [facility] Creatinine 6.64 (H) 0.57 - 1.25 mg/dL [facility] Glucose 177 (H) 70 - 105 mg/dL [facility] Calcium 8.9 8.4 - 10.2 mg/dL [facility] EGFR 8Comment: ESTIMATED GFR IS mL/min/1.73 sq m [facility] NOT ACCURATE CREATININE [facility] CENTER CLEARANCE IN PREDICTING GLOMERULAR FILTRATION RATE. ESTIMATED GFR IS NOT APPLICABLE FOR DIALYSIS PATIENTS. Specimen Blood Performing Organization Address City/State/Zipcode Phone Number [facility] [address] [place], [place] [phone] [place] TRANSFUSION SERVICE REPORT - SCAN (01/20/2019 6:00 PM CDT)Only the most recent of2 resultswithin the time period is included. Narrative Performed At Vancomycin level, random (01/20/2019 4:32 AM CDT)Only the most recent of3 resultswithin the time period is included. Vancomycin Rm 15.3 ug/mL [facility] Specimen Blood Narrative Performed At Reference Range: No Normals [facility] Performing Organization Address City/State/Zipcode Phone Number [facility] [address] [place] [address] CENTER Prepare Leuko-Red RBC (01/19/2019 11:54 PM CDT) CROSSMATCH COMPATIBLE SAFETRACE TX Unit ABO A Pos SAFETRACE TX UNIT NUMBER [id number] [facility] TX Status TX_TIMEINCHART [facility] TX Blood Bank Product RED BLOOD CELLS [facility]AFET[facility]ACE TX PRODUCT CODE [id number] [facility] [place] Specimen Other Performing Organization Address City/State/Zipcode Phone Number [facility] [place] ECHOCARDIOGRAM REPORT - SCAN (01/19/2019 9:20 PM CDT) Narrative Performed At XR chest PA or AP 1 view in dept (01/19/2019 6:37 PM CDT) Specimen Narrative Performed At FINAL REPORT GE RIS History: Status post left thoracentesis. Comparison: Same dated 1015 hours Findings: A single view of the chest is submitted. There is been interval decrease in the size of a left pleural effusion. A small to moderate left pleural effusion remains. There is no post procedure pneumothorax. The cardiomediastinal contours are unremarkable. There is a small right pleural effusion. Bibasilar opacities, left greater than right may reflect atelectasis but pneumonitis should be excluded clinically. There is no acute bony abnormality. A vascular stent overlies the right subclavian region. Signed: Juan Alba MD Report Verified Date/Time:01/19/2019 19:12:04 Reading Location: [address] Reading Room Procedure Note Interface, External Ris In - 01/19/2019 7:14 PM CDT FINAL REPORT History: Status post left thoracentesis. Comparison: Same dated 1015 hours Findings: A single view of the chest is submitted. There is been interval decrease in the size of a left pleural effusion. A small to moderate left pleural effusion remains. There is no post procedure pneumothorax. The cardiomediastinal contours are unremarkable. There is a small right pleural effusion. Bibasilar opacities, left greater than right may reflect atelectasis but pneumonitis should be excluded clinically. There is no acute bony abnormality. A vascular stent overlies the right subclavian region. Signed: Juan Alba MD Report Verified Date/Time: 01/19/2019 19:12:04 Reading Location: [address] Reading Room Performing Organization Address City/State/Zipcode Phone Number [facility] pH, body fluid (01/19/2019 6:12 PM CDT) pH, Body Fluid 8.00 [facility] Specimen Body Fluid Performing Organization Address [facility] Phone Number [address] [phone] CENTER Glucose, body fluid (01/19/2019 6:12 PM CDT) Glucose, Body Fluid 204 (H) 70 - 110 mg/dL [facility] Specimen Body Fluid Narrative Performed At Absence of reference range indicates that [facility] normals have not been defined. Assay performance has not been validated for this type of specimen. Performing Organization Address [facility] Phone Number [address] [address] CENTER Adenosine Deaminase, Fluid (01/19/2019 6:12 PM CDT)Only the most recent of2 resultswithin the time period is included. Adenosine Deaminase 8.9 <9.2 U/L [facility] Comment: INCORPORATED REFERENCE INTERVAL: ADENOSINE DEAMINASE Tuberculosismean 92.1 U/L Metastatic malignancies mean 23.3 U/L Mesotheliomas mean 34.9 U/L Pulmonary embolismmean 23.8 U/L Lymphomamean 64.3 U/L This test was performed using a kit that has not been cleared or approved by the FDA.The analytical performance characteristics of this test have been determined by [employer] [place], [place].This test should not be used for diagnosis without confirmation by other medically established means. Specimen Body Fluid Narrative Performed At Performing Lab [facility] [address] [facility], [address] [facility] [place], [place] Hunter Rodriguez MD, PhD Performing Organization Address City/[facility]/Zipcode Phone Number [facility], [place] [address] INCORPORATED [address] [facility] Body fluid crystals (01/19/2019 6:12 PM CDT) Body Fluid Crystals No crystals seen. [facility] Pathologist: Slade Granados MD (electronic [facility] Specimen Body Fluid Performing Organization Address [facility] Phone Number [address] [address] CENTER Body fluid cell count with differential (01/19/2019 6:12 PM CDT)Only the most recent of3 resultswithin the time period is included. Appearance Clear Clear [facility] Color Straw Colorless, Straw [facility] RBCs 28 (H) <=1 /cu mm [facility] Adjusted WBC Count 54 (H) <=5 /cu mm [facility] Lining Cells 4 (H) <=1 /cu mm [facility] % Segs 23 % [facility] % Lymphs 33 % [facility] % Monos 44 % [facility] % Eos 0 % [facility] % Baso 0 % [facility] Container Body Fluid EDTA Tube [facility] Specimen Body Fluid Performing Organization Address [facility]/Zipcode Phone Number [address] [address] [phone] CENTER Triglycerides, body fluid (01/19/2019 6:12 PM CDT) Triglycerides, Fluid 49 mg/dL [facility] Specimen Body Fluid Narrative Performed At Reference Range:No Normals [facility] Assay performance has not been validated for this type of specimen. Performing Organization Address City/[facility] Phone Number [facility] [address] [place] [phone] CENTER Specific gravity, body fluid (01/19/2019 6:12 PM CDT) Spec [place] 1.030 [facility] Specimen Body Fluid Narrative Performed At Reference Range: No Normals [facility] Performing Organization Address [facility] Phone Number [address] [address] [phone] CENTER Protein, body fluid (01/19/2019 6:12 PM CDT)Only the most recent of2 resultswithin the time period is included. Protein, Fluid 4.3 Light's criteria identifies [facility] effusions if one or more are [facility] present: Pleural to serum protein ratio of more than 0.5; Pleural to Serum LDH of more than 0.6; Pleural LDH of more than two third of upper serum reference limit g/dL Specimen Body Fluid Narrative Performed At Absence of reference range indicates that [facility] normals have not been defined. Assay performance has not been validated for this type of specimen. Performing Organization Address City/[facility] Phone Number [facility] [address] [place] [address] [phone] CENTER Lactate dehydrogenase (LDH), body fluid (01/19/2019 6:12 PM CDT)Only the most recent of2 resultswithin the time period is included. LDH, Fluid 161 Light's criteria identifies [facility] MED[facility] effusions if one or more are CENTER present: Pleural to serum protein ratio of more than 0.5; Pleural to serum LDH ratio of more than 0.6; Pleural LDH more than two third of upper serum reference limit U/L Specimen Body Fluid Narrative Performed At Absence of reference range indicates that [facility] normals have not been defined. Assay performance has not been validated for this type of specimen. Performing Organization Address [facility] Phone Number [address] [phone] [place] Amylase, body fluid (01/19/2019 6:12 PM CDT) Amylase, Fluid 18 (L) 30 - 110 U/L [facility] Specimen Body Fluid Narrative Performed At Absence of reference range indicates that [facility] normals have not been defined. Assay performance has not been validated for this type of specimen. Performing Organization Address [facility] Phone Number [address] [phone] [place] Albumin, body fluid (01/19/2019 6:12 PM CDT)Only the most recent of2 resultswithin the time period is included. Albumin, Fluid 2.9 gm/dL [facility] Specimen Body Fluid Narrative Performed At Reference Range:No Normals [facility] Assay performance has not been validated for this type of specimen. Performing Organization Address [facility] Phone Number [address] [address] [phone] [place] Creatinine, body fluid (01/19/2019 6:12 PM CDT) Creat, Fluid 3.31 mg/dL [facility] Specimen Body Fluid Narrative Performed At Reference Range:No Normals [facility] Assay performance has not been validated for this type of specimen. Performing Organization Address [facility] Phone Number [address] [address] [phone] [place] [employer] culture + smear (01/19/2019 6:11 PM CDT) Result No acid-fast bacilli isolated in [facility] 42 days [facility] [employer] Smear No acid fast bacilli seen [facility] Specimen Body Fluid Performing Organization Address City/[facility]/Zipcode Phone Number [facility] [address] [place] [phone] [place] Body fluid culture + gram stain (01/19/2019 6:11 PM CDT)Only the most recent of2 resultswithin the time period is included. Result No growth [facility] Gram Stain Result <1+ White blood cells seen [facility] Gram Stain Result No organisms seen [facility] Specimen Body Fluid Performing Organization Address [facility] Phone Number [address] [address] [place] Fungus culture + smear (01/19/2019 6:11 PM CDT) Result No fungus isolated in 28 days [facility] Fungus Smear No fungi seen [facility] Specimen Body Fluid Performing Organization Address City/[facility] Phone Number [facility] [address] [place] [phone] [place] US thoracentesis (01/19/2019 6:08 PM CDT) Specimen Narrative Performed At FINAL REPORT [place] Ultrasound Guided left Thoracentesis: Modality: Ultrasound Approach: Left Posterior Lateral Intercostal Sedation: None Findings: Informed consent was obtained. After an appropriate site for drainage was found, the skin was prepped and draped, and local anesthesia was given. A 4 [place] Ze[place] catheterwas inserted into the left pleural space under ultrasound guidance, and approximately 1000 cc of yellow pleural fluid was aspirated. The catheter was removed. No immediate complications were noted. A postprocedure chest radiograph revealed no evidence of pneumothorax. Impression: 1.Uncomplicated ultrasound-guided left thoracentesis. Signed: Perfecto Arzate MD Report Verified Date/Time:01/19/2019 18:35:33 Reading Location: [address] Transitional Reading Room Procedure Note Interface, External Ris In - 01/19/2019 6:37 PM CDT FINAL REPORT Ultrasound Guided left Thoracentesis: Modality: Ultrasound Approach: Left Posterior Lateral Intercostal Sedation: None Findings: Informed consent was obtained. After an appropriate site for drainage was found, the skin was prepped and draped, and local anesthesia was given. A 4 [place] catheter was inserted into the left pleural space under ultrasound guidance, and approximately 1000 cc of yellow pleural fluid was aspirated. The catheter was removed. No immediate complications were noted. A postprocedure chest radiograph revealed no evidence of pneumothorax. Impression: 1. Uncomplicated ultrasound-guided left thoracentesis. Signed: Perfecto Arzate MD Report Verified Date/Time: 01/19/2019 18:35:33 Reading Location: [address] Transitional Reading Room Performing Organization Address City/State/Zipcode Phone Number [facility] HEMODIALYSIS INPATIENT (01/19/2019 1:09 PM CDT) Narrative Performed At Bobby Santillan RN 01/19/20191:09 PM Pt dialyzed for 3.5 hrs via left upper arm AVF. Seen by Dr Granados at bedside. Tolerated treatment well, NET UF=3L as ordered. Lab Results Component Value Date WBC 9.1 01/19/2019 HGB 8.6 (L) 01/19/2019 HCT 26.6 (L) 01/19/2019 MCV 97.1 (H) 01/19/2019 PLT 283 01/19/2019 Lab Results Component Value Date HEPBSAG Nonreactive 01/04/2019 ] Lab Results Component Value Date GLUCOSE 149 (H) 01/19/2019 CALCIUM 9.3 01/19/2019 NA 138 01/19/2019 K 3.9 01/19/2019 CO2 26 01/19/2019 CL 101 01/19/2019 BUN 19 01/19/2019 CREATININE 4.62 (H) 01/19/2019 Coag Profile: Protime Date Value Ref Range Status 01/18/2019 16.7 (H) 11.7 - 14.7 seconds Final INR Date Value Ref Range Status 01/18/2019 1.4 <=5.9 Final PTT Date Value Ref Range Status 01/04/2019 114.6 (H) 22.5 - 36.0 seconds Final XR chest 1 view portable / bedside (01/19/2019 10:15 AM CDT)Only the most recent of8 resultswithin the time period is included. Specimen Narrative Performed At FINAL REPORT GE RIS Comparison: 01/18/2019 TECHNIQUE: Single view of the chest FINDINGS: Interval placement of a drainage catheter projecting over the cardiac silhouette. Moderate left pleural effusion with adjacent airspace disease identified, increased from before. Mild vascular congestion suspected elsewhere. Cardiac silhouette is enlarged. Stent projects in the left arm soft tissues. Signed: Perfecto Arzate MD Report Verified Date/Time:01/19/2019 10:50:13 Reading Location: [address] Transitional Reading Room Procedure Note Interface, External Ris In - 01/19/2019 10:52 AM CDT FINAL REPORT Comparison: 01/18/2019 TECHNIQUE: Single view of the chest FINDINGS: Interval placement of a drainage catheter projecting over the cardiac silhouette. Moderate left pleural effusion with adjacent airspace disease identified, increased from before. Mild vascular congestion suspected elsewhere. Cardiac silhouette is enlarged. Stent projects in the left arm soft tissues. Signed: Perfecto Arzate MD Report Verified Date/Time: 01/19/2019 10:50:13 Reading Location: [address] Transitional Reading Room Performing Organization Address City/State/Zipcode Phone Number [facility] Transfuse Leuko-Red RBC (01/18/2019 11:01 PM CDT)Only the most recent of2 resultswithin the time period is included.ECHOCARDIOGRAM REPORT - SCAN (2018 9:20 PM CDT) Narrative Performed At [facility], manual (01/18/2019 9:10 PM CDT) ABO Grouping A [facility] Rh Factor POS [facility] Specimen Blood Performing Organization Address City/State/Zipcode Phone Number [facility] [address] [place] [address] [phone] Type and screen, automated (01/18/2019 8:03 PM CDT) ABO/RH AUTOMATED (BEAKER) A POSITIVE [facility] Ab Scrn NEGATIVE [facility] Specimen Blood Performing Organization Address City/[facility]/Zipcode Phone Number [facility] [address] [place] [address] [phone] Limited 2D Echocardiogram (01/18/2019 6:16 PM CDT) Ejection Fraction [facility]CHO [facility]ART[facility] Recorded FutureESSON CPA Specimen Narrative Performed At Transthoracic Echocardiography Report (TTE) [facility]CHO [facility]ART[facility] Recorded [facility]ESSON [facility] Demographics Patient NameCARMICHAEL,Date of Study01/18/2019 SHELLI MAGUIRE Gender Male Visit [id number] Race [id number] Number Date of 1950 Tulio Velez MD Physician Age 68 year(s) SonographerDavid Flores Biomass Plant Manager Latricia Henderson Interpreting Physician CHIKA Vides Procedure Type of Study TTE procedure:LIMITED 2D ECHOCARDIOGRAM (Routine) Indications:Pericardiocentesis. Clinical History HGB 7.8 HCT 25.0 % ESRD, CAD, AFIB, HTN, DM, CHRIS, MORBID OBESITY Contrast Medium: Bubble Study. Height: 71 inches Weight: 130.63 kg (288 lbs) BSA: 2.46 m^2 BMI: 40.17 kg/m^2 HR: 73 bpm BP: 104/60 mmHg Signature Findings Left Limited 2D exam (no Doppler) to address study indication. VentricleStudy done in CL during pericardiocentesis. At the beginning of study there is a moderate to large circumferential pericardial effusion. At the end there is a small circumferential pericardial effusion. RV is hyperdynamic. Procedure Note Interface, External Ris In - 01/19/2019 3:50 PM CDT Transthoracic Echocardiography Report (TTE) Demographics Patient Name RUCHI, Date of Study 01/18/2019 SHELLI MAGUIRE Gender Male Visit Number [id number] Race Room Number [id number] Number Date of 1950 Referring Gabriel Velez MD Physician Age 68 year(s) Manufacturing Process Engineer David Flores Biomass Plant Manager Latricia Henderson Interpreting Physician CHIKA Vides Procedure Type of Study TTE procedure:LIMITED 2D ECHOCARDIOGRAM (Routine) Indications:Pericardiocentesis. Clinical History HGB 7.8 HCT 25.0 % ESRD, CAD, AFIB, HTN, DM, CHRIS, MORBID OBESITY Contrast Medium: Bubble Study. Height: 71 inches Weight: 130.63 kg (288 lbs) BSA: 2.46 m^2 BMI: 40.17 kg/m^2 HR: 73 bpm BP: 104/60 mmHg Signature Findings Left Limited 2D exam (no Doppler) to address study indication. Ventricle Study done in CL during pericardiocentesis. At the beginning of study there is a moderate to large circumferential pericardial effusion. At the end there is a small circumferential pericardial effusion. RV is hyperdynamic. Performing Organization Address City/State/Zipcode Phone Number [facility] 2D Echo W/O Doppler(No Doppler) (01/18/2019 2:20 PM CDT) Ejection Fraction [facility] Specimen Narrative Performed At Transthoracic Echocardiography Report (TTE) [facility] Demographics Patient NameCARMICHAEL,Date of Study01/18/2019 SHELLI MAGUIRE Gender Male Visit [id number] Race [id number] Number Date of 1950 Mckay Correa Physician Age 68 year(s) Jay Buchanan [facility] Biomass Plant Manager Latricia Henderson Interpreting Sam Ac MD Procedure Type of Study TTE procedure:ECHO2D MODE W/O DOPPLER (STAT) Indications:Shortness of breath. Clinical History CHF, DM, ESRD, Hep A, HTN 01/03/19 PCI HGB 7.8 HCT 25 % Height: 71 inches Weight: 130.63 kg (288 lbs) BSA: 2.46 m^2 BMI: 40.17 kg/m^2 HR: 86 bpm BP: 92/54 mmHg Summary Limited 2D exam (no Doppler) to address study indication. All of the LV segments contract normally . Estimated LVEF by qualitative assessment is normal (>60%) . A moderate to large circumferential pericardial effusion is present measured at the end of diastole 1.5cm.. Large pericardial effusion anterior >2cm. Pericardial tamponade physiology is suspected based on intermittent RV free wall collapse on M-mode Clinical correlation is recommended . An echo lucent space is noted consistent with prominent pericardial fat pad. The estimated RA pressure by IVC dynamics 11-15mmHg . Results discussed with Dr. Cameron Duggan. Previous Study Compare with prior study done on 01-03-19 pericardial effusion has increased. Signature Findings Technical Quality: Technically adequate exam. Left Ventricle Limited 2D exam (no Doppler) to address study in dication. Al l of the LV segments contract normally . Es timated LVEF by qualitative assessment is normal (> 60%) . Left AtriumLA size is mildly enlarged (35-41 ml/m2) . Right VentricleRV chamber size is small Gl obal RV systolic function is hyperdynamic . Right Atrium The RA is not well visualized. Aortic Valve Normal AoV structure. Mitral Valve Mild MV leaflet thickening. Mi ld mitral annular calcification. Tricuspid ValveTV is not well visualized. Pulmonic Valve PV is not well visualized. AortaAortic root size (SInus of Valsalva diameter) is no rmal . Proximal ascending aorta size is normal . PericardiumA moderate to large circumferential pericardial ef fusion is present measured at the end of diastole 1. 5cm.. Large pericardial effusion anterior >2cm. Pe ricardial tamponade physiology is suspected based on intermittent RV free wall collapse on M-mode Cl inical correlation is recommended . An echo lucent space is noted consistent with pr ominent pericardial fat pad. IVC/SVC/PA/PV/PleuralThe estimated RA pressure by IVC dynamics 11-15mmHg . Chambers/Structures Left Atrium LA Volume: 88.16 ml LA Area: 26.33 cm^2 LA Vol. Index: 36 ml/m^2 Left Ventricle LVIDd: 4.67 cm LVEDV:96.62 ml LVIDs: 2.92 cm LVESV:32.77 ml LV Septum Diastolic: 1.19 cm LV PW Diastolic: 1.22 cm LV FS: 37.5 % LVOT Diameter: 1.96 cm LVEF: 66.1 % Aorta Ao Root S of Linda.: 3.19 cmAscending Aorta: 3.45 cm Doppler/Quantitative Measurements LVOT LVOT Diameter: 1.96 cm LVOT Area: 3.02 cm^2 Procedure Note Interface, External Ris In - 01/18/2019 3:28 PM CDT Transthoracic Echocardiography Report (TTE) Demographics Patient Name RUCHI, Date of Study 01/18/2019 SHELLI MAGUIRE Gender Male Visit Number [id number] Race Room Number [id number] Number Date of 1950 Referring Dennis Correa Physician Age 68 year(s) Manufacturing Process Engineer Elvira Buchanan, [facility] Biomass Plant Manager Latricia Henderson Interpreting Sam Ac MD Procedure Type of Study TTE procedure:ECHO2D MODE W/O DOPPLER (STAT) Indications:Shortness of breath. Clinical History CHF, DM, ESRD, Hep A, HTN 01/03/19 PCI HGB 7.8 HCT 25 % Height: 71 inches Weight: 130.63 kg (288 lbs) BSA: 2.46 m^2 BMI: 40.17 kg/m^2 HR: 86 bpm BP: 92/54 mmHg Summary Limited 2D exam (no Doppler) to address study indication. All of the LV segments contract normally . Estimated LVEF by qualitative assessment is normal (>60%) . A moderate to large circumferential pericardial effusion is present measured at the end of diastole 1.5cm.. Large pericardial effusion anterior >2cm. Pericardial tamponade physiology is suspected based on intermittent RV free wall collapse on M-mode Clinical correlation is recommended . An echo lucent space is noted consistent with prominent pericardial fat pad. The estimated RA pressure by IVC dynamics 11-15mmHg . Results discussed with Dr. Cameron Duggan. Previous Study Compare with prior study done on 01-03-19 pericardial effusion has increased. Signature Findings Technical Quality: Technically adequate exam. Left Ventricle Limited 2D exam (no Doppler) to address study indication. All of the LV segments contract normally . Estimated LVEF by qualitative assessment is normal (>60%) . Left Atrium LA size is mildly enlarged (35-41 ml/m2) . Right Ventricle RV chamber size is small Global RV systolic function is hyperdynamic . Right Atrium The RA is not well visualized. Aortic Valve Normal AoV structure. Mitral Valve Mild MV leaflet thickening. Mild mitral annular calcification. Tricuspid Valve TV is not well visualized. Pulmonic Valve PV is not well visualized. Aorta Aortic root size (SInus of Valsalva diameter) is normal . Proximal ascending aorta size is normal . Pericardium A moderate to large circumferential pericardial effusion is present measured at the end of diastole 1.5cm.. Large pericardial effusion anterior >2cm. Pericardial tamponade physiology is suspected based on intermittent RV free wall collapse on M-mode Clinical correlation is recommended . An echo lucent space is noted consistent with prominent pericardial fat pad. IVC/SVC/PA/PV/Pleural The estimated RA pressure by IVC dynamics 11-15mmHg . Chambers/Structures Left Atrium LA Volume: 88.16 ml LA Area: 26.33 cm^2 LA Vol. Index: 36 ml/m^2 Left Ventricle LVIDd: 4.67 cm LVEDV:96.62 ml LVIDs: 2.92 cm LVESV:32.77 ml LV Septum Diastolic: 1.19 cm LV PW Diastolic: 1.22 cm LV FS: 37.5 % LVOT Diameter: 1.96 cm LVEF: 66.1 % Aorta Ao Root S of Linda.: 3.19 cm Ascending Aorta: 3.45 cm Doppler/Quantitative Measurements LVOT LVOT Diameter: 1.96 cm LVOT Area: 3.02 cm^2 Performing Organization Address City/State/Zipcode Phone Number [facility] ECG 12 lead (01/18/2019 10:52 AM CDT)Only the most recent of6 resultswithin the time period is included. Specimen Narrative Performed At Ventricular Rate 85 BPM Aimetis Atrial Rate 85 BPM P-R Interval 256 ms QRS Duration 148 ms Q-T Interval 422 ms QTC Calculation(Bazett) 502 ms P Knippa 28 degrees R Knippa -42 degrees T Knippa 68 degrees Sinus rhythm with 1st degree A-V block Left anterior fascicular block Right bundle branch block Prolonged QT Abnormal ECG When compared with ECG of 05-JAN-2019 09:08, Sinus rhythm has replaced Atrial fibrillation QT has lengthened Confirmed by MD JACOME YOCHAI ([id number]) on 01/21/2019 6:15:02 AM Procedure Note Interface, External Ris In - 01/21/2019 6:15 AM CDT Ventricular Rate 85 BPM Atrial Rate 85 BPM P-R Interval 256 ms QRS Duration 148 ms Q-T Interval 422 ms QTC Calculation(Bazett) 502 ms P Knipp[place] 28 degrees R Knippa -42 degrees T Knippa 68 degrees Sinus rhythm with 1st degree A-V block Left anterior fascicular block Right bundle branch block Prolonged QT Abnormal ECG When compared with ECG of 05-JAN-2019 09:08, Sinus rhythm has replaced Atrial fibrillation QT has lengthened Confirmed by MD JACOME YOCHAI ([id number]) on 01/21/2019 6:15:02 AM Performing Organization Address City/[facility] Phone Number [facility] Blood Culture - Routine (Left Venipuncture) (01/18/2019 9:57 AM CDT)Only the most recent of4 resultswithin the time period is included. Result No growth in 5 days [facility] Specimen Blood Performing Organization Address [facility] Phone Number [address] [address] [place] POC-Lactic Acid, Venous (01/18/2019 8:00 AM CDT) POC-Lactic Acid, Venous 1.0Comment: TESTED AT 0.9 - 1.7 mmol/L [address] [address] Specimen Blood Performing Organization Address [facility] Phone Number [address] [address] C[place] Procalcitonin (01/18/2019 7:59 AM CDT) Procalcitonin 0.53 (H) <0.05 ng/mL [facility] Specimen Blood Narrative Performed At SEPSIS RISK (ng/mL) [facility] Low:0.05-0.50 Intermediate: 0.51-2.00 High: >=2.01 Performing Organization Address [facility] Phone Number [address] [address] [place] Troponin I (01/18/2019 7:59 AM CDT)Only the most recent of4 resultswithin the time period is included. Troponin I 0.12 (H) 0.00 - 0.03 ng/mL [facility] Specimen Blood Narrative Performed At Troponin I (TnI) levels must be interpreted [facility] in the context of the presenting symptoms [...] disease, and persistent tachyarrhythmia. Performing Organization Address [facility] Phone Number [address] [address] [place] Prothrombin time/INR (01/18/2019 7:59 AM CDT)Only the most recent of2 resultswithin the time period is included. Protime 16.7 (H) 11.7 - 14.7 seconds [facility] INR 1.4 <=5.9 [facility] Specimen Blood Narrative Performed At RECOMMENDED COUMADIN/WARFARIN INR THERAPY [facility] RANGES STANDARD DOSE: 2.0 - 3.0 Includes: PROPHYLAXIS for venous thrombosis, systemic embolization; TREATMENT for venous thrombosis and/or pulmonary embolus. HIGH RISK: Target INR is 2.5-3.5 for patients with mechanical heart valves. Performing Organization Address [facility]/Zipcode Phone Number [address] [address] CENTER B-type Natriuretic Factor (BNP) (01/18/2019 7:59 AM CDT) BNP 198 (H) 0 - 100 pg/mL [facility] Specimen Blood Performing Organization Address City/[facility] Phone Number [address] [phone] [place] Hepatic function panel (01/18/2019 7:59 AM CDT) Protein, Total 6.9 6.0 - 8.3 gm/dL [facility] Albumin 3.9 3.5 - 5.0 g/dL [facility] Total Bilirubin 0.6 0.2 - 1.2 mg/dL [facility] Bilirubin, Direct 0.2 0.1 - 0.5 mg/dL [facility] Alkaline Phosphatase 89 40 - 150 U/L [facility] AST 10 5 - 34 U/L [facility] ALT 14 6 - 55 U/L [facility] Specimen Blood Performing Organization Address City/[facility] Phone Number [address] [address] [phone] [place] VASCULAR DIAGRAM -SCAN (01/10/2019 5:24 PM CDT)Only the most recent of2 resultswithin the time period is included. Narrative Performed At CARDIAC CATH REPORT - SCAN (01/10/2019 11:00 AM CDT) Narrative Performed At CBC (Hemogram only) (01/08/2019 5:00 AM CDT) WBC 8.7 3.5 - 10.5 K/L [facility] RBC 2.86 (L) 4.63 - 6.08 M/L [facility] Hemoglobin 9.0 (L) 13.7 - 17.5 GM/DL [facility] Hematocrit 29.4 (L) 40.1 - 51.0 % [facility] MCV 102.8 (H) 79.0 - 92.2 fL [facility] MCH 31.5 25.7 - 32.2 pg [facility] MCHC 30.6 (L) 32.3 - 36.5 GM/DL [facility] RDW 14.5 (H) 11.6 - 14.4 % [facility] Platelets 256 150 - 450 K/CU MM [facility] MPV 11.9 9.4 - 12.4 fL [facility] nRBC 0 0 - 0 /100 WBC [facility] Specimen Blood Performing Organization Address City/[facility]/Zipcode Phone Number [address] [address] [place] Hemoglobin A1c (01/08/2019 5:00 AM CDT) Hemoglobin A1C 6.8 (H) 4.3 - 6.1 % [facility] Specimen Blood Performing Organization Address City/[facility] Phone Number [address] [address] [place] Lactic Acid, Arterial (01/05/2019 4:09 AM CDT)Only the most recent of2 resultswithin the time period is included. Lactate, Art 1.0 0.5 - 2.2 mmol/L [facility] Specimen Blood, Arterial Performing Organization Address City/[facility] Phone Number [address] [address] [phone] [place] Blood gas, arterial (01/05/2019 4:09 AM CDT)Only the most recent of5 resultswithin the time period is included. pH, Arterial 7.44 7.35 - 7.45 [facility] pCO2, Arterial 41 35 - 45 mmHg [facility] pO2, Arterial 118 (H) 80 - 90 mmHg [facility] O2 Sat, Arterial 98.0 (H) 96.0 - 97.0 % [facility] HCO3, Arterial 26 21 - 29 mmol/L [facility] Base Excess, Arterial 2.7 -2.0 - 3.0 mmol/L [facility] Patient Temperature 39.5 C [facility] FIO2 21.0 % [facility] Specimen Blood, Arterial Performing Organization Address [facility] Phone Number [address] [address] C[place] Potassium (01/04/2019 5:24 AM CDT) Potassium 5.5 (H) 3.5 - 5.1 meq/L [facility] Specimen Blood Performing Organization Address [facility] Phone Number [address] [address] [phone] CENTER PT/aPTT (01/04/2019 2:05 AM CDT)Only the most recent of2 resultswithin the time period is included. Protime 22.0 (H) 11.7 - 14.7 seconds [facility] INR 2.0 <=5.9 [facility] PTT 114.6 (H) 22.5 - 36.0 seconds [facility] Specimen Blood Narrative Performed At RECOMMENDED COUMADIN/WARFARIN INR THERAPY [facility] RANGES STANDARD DOSE: 2.0 - 3.0 Includes: PROPHYLAXIS for venous thrombosis, systemic embolization; TREATMENT for venous thrombosis and/or pulmonary embolus. HIGH RISK: Target INR is 2.5-3.5 for patients with mechanical heart valves. Performing Organization Address [facility] Phone Number [address] [address] [phone] [place] Hepatitis B surface antigen (01/04/2019 2:05 AM CDT) hepatitis B Surface Ag Nonreactive Nonreactive [facility] Specimen Blood Performing Organization Address [facility] Phone Number [address] [address] [place] Creatine Kinase (CK) (01/04/2019 2:05 AM CDT) Total CK 340 (H) 29 - 200 U/L [facility] Specimen Blood Performing Organization Address [facility] Phone Number [address] [address] [phone] [place] Insert Arterial Line (01/03/2019 10:22 PM CDT) [...] to verify the correct patient, procedure, equipment, child support case officer and site/side marked as required. Preparation: Patient [...] CDT) Potassium 4.7 3.6 - 5.5 meq/L [facility] Specimen Blood, Arterial Performing Organization Address City/[facility] Phone Number [address] [address] [place] Sodium Na-Stat Lab (01/03/2019 9:31 PM CDT) Sodium 134 (L) 135 - 148 meq/L [facility] Specimen Blood, Arterial Performing Organization Address [facility] Phone Number [address] [address] [place] Glucose-Stat Lab (01/03/2019 9:31 PM CDT) Glucose 205 (H) 70 - 110 mg/dL [facility] Specimen Blood, Arterial Performing Organization Address [facility] Phone Number [address] [address] [place] HGB/HCT (H&H)-Stat Lab (01/03/2019 9:31 PM CDT) Hemoglobin 8.3 (L) 13.0 - 16.8 g/dL [facility] [facility] Hematocrit 24.0 (L) 40.0 - 50.0 % [facility] Specimen Blood, Arterial Performing Organization Address [facility] Number [address] [address] [phone] [place] ECHOCARDIOGRAM REPORT - SCAN (01/03/2019 9:22 PM CDT) Narrative Performed At Lactic acid, venous (01/03/2019 8:46 PM CDT) Lactate, Venous 1.7Comment: Specimen 0.5 - 2.2 mmol/L [facility] moderately hemolyzed [facility] Specimen Blood Performing Organization Address [facility] Number [address] [address] [place] POC ACTIVATED CLOTTING TIME (01/03/2019 4:38 PM CDT) Activated Clotting Time 384Comment: TESTED AT sec [facility] [address] [facility] [address] Specimen Blood Performing Organization Address City/State/Zipcode Phone Number [place] [id number] [place] [address] [phone] CENTER 2D Echo W/Doppler(CW/PW/Color) (01/03/2019 1:50 PM CDT) Ejection Fraction [facility] Specimen Narrative Performed At Transthoracic Echocardiography Report (TTE) [facility] ECHO [facility] Demographics Patient NameCARMICHAEL, Date of Study01/03/2019 ONEAL Male Visit [id number] Unknown Room [id number] Number Date of 1Referring Cathy Jones NP Age 68 year(s)Manufacturing Process Engineer Ileana Lofton [facility] Interpreting Reji Boyle MD Physician Procedure Type [...] Study 01/03/2019 ONEAL Gender Male Visit Number [id number] Race Unknown Room Number C618 Number Date of 1950 Referring Cathy Mott NP Age 68 year(s) Manufacturing Process Engineer Ileana Lofton [facility] Interpreting Reji Boyle MD Physician Procedure Type [...] LVOT CI: 5.12 l/min/m^2 Performing Organization Address City/State/Zipcode Phone Number [facility] Lipid panel (01/03/2019 10:37 AM CDT) Triglycerides 158 mg/dL [facility] Cholesterol 113 mg/dL [facility] HDL 34 mg/dL [facility] LDL Calculated 47 mg/dL [facility] Specimen Blood Narrative Performed At Triglyceride Reference Range: [facility] Low Risk <150 [id number] High Risk 200-499 Very High Risk>=500 Cholesterol Reference Range: Low Risk <200 [id number] High Risk>240 HDL Cholesterol Reference Range: Low Risk >=60 High Risk <40 LDL Cholesterol Reference Range: Optimal<100 Near [id number] [id number] Very High >=190 Performing Organization Address City/State/Zipcode Phone Number [facility] [address] [place], [place] [phone] CENTER after 03/11/2018 Insurance Payer Benefit Plan / Group Subscriber ID Type Phone Address MEDICARE MEDICARE A B xxxxxxxxxxx Medicare MCR SUPPLEMENT/INDIVIDUAL [employer]/[facility] xxxxxxxxxxx Medigap Advance Directives Patient has advance care planning documents, and code status on file. For more information, please contact:[address] [phone] Code Status Date Activated Date Inactivated Comments Full Code 01/18/2019 9:24 AM 01/23/2019 8:10 PM This code status was determined by: Patient Full Code 01/18/2019 7:32 AM 01/18/2019 9:24 AM This code status was determined by: Patient Full Code 01/03/2019 10:26 AM 01/08/2019 6:55 PM This code status was determined by: Patient
--- OUTSIDE RECORDS SUMMARY | 2019-03-12 07:13 | XMS REPORT ---
:1950 [facility] [address] [place] [address] Care Team Providers Name Role Phone JOSEE KURTZ Unavailable Unavailable SHAMSEE, LEONORA-JANETH BHATT-AHMED Unavailable Unavailable Problems This patient has no known problems. Allergies, Adverse Reactions, Alerts This patient has no known allergies or adverse reactions. Medications This patient has no known medications. Results Test Description Test Time Test Comments Text Results Atomic Results Result Comments AFB CULTURE + SMEAR 2019-03-06 10:35:00 Test Item Value Reference Range Comments CULTURE (BEAKER) (test dqmk=3152) No acid-fast bacilli isolated in 42 days AFB SMEAR (BEAKER) (test paxo=656) No acid fast bacilli seen FUNGUS CULTURE + [id number] 19:02:00 Test Item Value Reference Range Comments CULTURE (BEAKER) (test No fungus isolated in 28 days ucnt=2297) FUNGUS SMEAR (BEAKER) (test No fungi seen uxfx=5690) POCT-GLUCOSE [id number] 12:35:00 Test Item Value Reference Range Comments POC-GLUCOSE METER (BEAKER) 214 mg/dL 70-110 TESTED AT [address] (test acvl=7658) [place] [address] BLOOD [id number] 12:01:00 Test Item Value Reference Range Comments CULTURE (BEAKER) (test gklf=4117) No growth in 5 days BLOOD [id number] 12:01:00 Test Item Value Reference Range Comments CULTURE (BEAKER) (test hpje=3412) No growth in 5 days POCT-GLUCOSE [id number] 07:49:00 Test Item Value Reference Range Comments POC-GLUCOSE METER (BEAKER) 174 mg/dL 70-110 TESTED AT [address] (test oivv=7132) [facility] [address] MR, CARDIAC WITHOUT [id number] 07:10:00Reason for exam:->r/o constrictive pericarditisFINAL REPORT Cardiac MRI dated 22 Jan 2019 INDICATION: Is a 68 year-old male with with past medical history of end-stage renal disease, coronary artery disease, PCI, on anticoagulation, there is a concern for underlying constrictive physiology. TECHNIQUE: Tali 3 [employer] MRI scanner. Morphologic and dynamic cine imaging were performed in multiple projections without the administration. Finally, flow quantification sequences were performed to determine the degree of valvular dysfunction. Patient weight 277 pounds, with height of 71 inches. Body surface area is 2.51 sq m. FINDINGS: The chest wall and mediastinum appears grossly unremarkable. MR is not optimisedassessment of pulmonary parenchymal lung disease. Bibasal pleural effusion is identified, overall mild in nature, left greater than right, and associated lytic changes/consolidation is identified in the right base. The central pulmonary artery is mildly prominent. The cardiac chambers demonstrate normal atrioventricular and ventriculoarterial concordance , and systemic and pulmonary venous return. The thoracic aorta is normal in course, calibre, and contour. There is no evidence of acute aortic pathology, such as dissection, intramural hematoma, or contained rupture. Abundance of pericardial fat is noted. Epicardial fat is also noted. In the four-chamber orientation, circumferential pericardialeffusion is seen, overall mild to moderate in [...] suggest adherent of the LV ventricular wall tothe pericardium. In the cine imaging, abnormal septal [...] and function. Quantitative values are as follows: YEB=016 cc; ESV=73 cc; stroke mujmki=015 cc ; and ejection fraction=59%. Calculated absolute cardiac output=8.5 liters/ min. Absolute left ventricular vxym=827 grams. The right ventricle is normal in size and function. Quantitative values are as follows: AAR=369 cc; ESV=78 cc ; stroke baeswa=740 cc; and ejection fraction=57%. Index RV EDV=82 [...] in the gradient echo images, suggesting the fluidis not simple in nature the time of imaging. The pericardium is NOT thickened at the time of imaging. This study was performed as there was a concern for underlying constrictive physiology. There is abnormal septal motion clearly seen , suggesting septal bounce. The morphology of the left and the rightventricles are readily unremarkable (the left ventricle is [...] greater than right, and associated atelectatic changes/consolidation isidentified in the left base Signed: Alfonzo Almanza MDReport Verified Date/Time: 01/23/2019 07:10:40 Reading Location: [place] [address] Cardiology MRI COMPREHENSIVE METABOLIC [id number] 05:56:00 Test Item Value Reference Range Comments TOTAL PROTEIN (BEAKER) 5.8 gm/dL 6.0-8.3 (test gvki=803) ALBUMIN (BEAKER) (test 3.1 g/dL 3.5-5.0 fzom=6241) ALKALINE PHOSPHATASE 99 U/L 40-150 (BEAKER) (test uhwu=840) BILIRUBIN TOTAL (BEAKER) 0.4 mg/dL 0.2-1.2 (test tjms=231) SODIUM (BEAKER) (test 137 meq/L 136-145 sqwj=523) POTASSIUM (BEAKER) (test 4.0 meq/L 3.5-5.1 kilf=244) CHLORIDE (BEAKER) (test 99 meq/L 98-107 bbbs=746) CO2 (BEAKER) (test 27 meq/L 22-29 dvtw=063) BLOOD UREA NITROGEN 32 mg/dL 7-21 (BEAKER) (test lcjq=809) CREATININE (BEAKER) (test 7.10 mg/dL 0.57-1.25 jvtl=857) GLUCOSE RANDOM (BEAKER) 170 mg/dL 70-105 (test lzgr=392) CALCIUM (BEAKER) (test 9.0 mg/dL 8.4-10.2 clxc=881) AST (SGOT) (BEAKER) (test 14 U/L 5-34 bnyi=002) ALT (SGPT) (BEAKER) (test 21 U/L 6-55 xgvz=382) EGFR (BEAKER) (test 8 mL/min/1.73 sq m ESTIMATED GFR IS NOT ldga=9781) ACCURATE CREATININE CLEARANCE IN PREDICTING GLOMERULAR FILTRATION RATE. ESTIMATED GFR IS NOT APPLICABLE FOR DIALYSIS PATIENTS. C-REACTIVE [id number] 05:55:00 Test Item Value Reference Range Comments C-REACTIVE PROTEIN (BEAKER) (test jcty=871) 9.80 mg/dL 0.00-0.50 CBC W/PLT COUNT & AUTO [id number] 05:20:00 Test Item Value Reference Range Comments WHITE BLOOD CELL COUNT (BEAKER) (test tdpz=882) 6.3 K/ L 3.5-10.5 RED BLOOD CELL COUNT (BEAKER) (test dagk=484) 2.41 M/ L 4.63-6.08 HEMOGLOBIN (BEAKER) (test cbze=397) 7.2 GM/DL 13.7-17.5 HEMATOCRIT (BEAKER) (test hxat=990) 23.3 % 40.1-51.0 MEAN CORPUSCULAR VOLUME (BEAKER) (test ekuf=726) 96.7 fL 79.0-92.2 MEAN CORPUSCULAR HEMOGLOBIN (BEAKER) (test 29.9 pg 25.7-32.2 bkkh=215) MEAN CORPUSCULAR HEMOGLOBIN CONC (BEAKER) (test 30.9 GM/DL 32.3-36.5 hqta=256) RED CELL DISTRIBUTION WIDTH (BEAKER) (test 15.4 % 11.6-14.4 dlnw=762) PLATELET COUNT (BEAKER) (test msvr=634) 236 K/CU MM 150-450 MEAN PLATELET VOLUME (BEAKER) (test twgm=786) 11.8 fL 9.4-12.4 NUCLEATED RED BLOOD CELLS (BEAKER) (test 0 /100 WBC 0-0 afpu=458) NEUTROPHILS RELATIVE PERCENT (BEAKER) (test 65 % exme=926) LYMPHOCYTES RELATIVE PERCENT (BEAKER) (test 20 % lsiu=225) MONOCYTES RELATIVE PERCENT (BEAKER) (test 11 % zsyf=344) EOSINOPHILS RELATIVE PERCENT (BEAKER) (test 3 % gbkj=465) BASOPHILS RELATIVE PERCENT (BEAKER) (test 1 % xfrg=712) NEUTROPHILS ABSOLUTE COUNT (BEAKER) (test 4.11 K/ L 1.78-5.38 kxmd=110) LYMPHOCYTES ABSOLUTE COUNT (BEAKER) (test 1.25 K/ L 1.32-3.57 krwm=330) MONOCYTES ABSOLUTE COUNT (BEAKER) (test 0.67 K/ L 0.30-0.82 wjqm=016) EOSINOPHILS ABSOLUTE COUNT (BEAKER) (test 0.20 K/ L 0.04-0.54 wqqy=500) BASOPHILS ABSOLUTE COUNT (BEAKER) (test 0.06 K/ L 0.01-0.08 uuzq=310) IMMATURE GRANULOCYTES-RELATIVE PERCENT (BEAKER) 1 % 0-1 (test dmes=1017) POCT-GLUCOSE [id number] 22:15:00 Test Item Value Reference Range Comments POC-GLUCOSE METER (BEAKER) 183 mg/dL 70-110 TESTED AT [address] (test ghru=4127) [place] [address] BODY FLUID CULTURE + GRAM [id number] 13:25:00 Test Item Value Reference Range Comments CULTURE (BEAKER) (test jutd=4455) No growth GRAM STAIN RESULT (BEAKER) (test <1+ White blood cells seen sbhz=8525) GRAM STAIN RESULT (BEAKER) (test No organisms seen slzn=96261) POCT-GLUCOSE [id number] 12:07:00 Test Item Value Reference Range Comments POC-GLUCOSE METER (BEAKER) 275 mg/dL 70-110 TESTED AT [address] (test xbsh=5730) [place] [address] POCT-GLUCOSE [id number] 07:57:00 Test Item Value Reference Range Comments POC-GLUCOSE METER (BEAKER) 160 mg/dL 70-110 TESTED AT [address] (test jxra=9026) [place] [address] POCT-GLUCOSE [id number] 21:56:00 Test Item Value Reference Range Comments POC-GLUCOSE METER (BEAKER) 210 mg/dL 70-110 TESTED AT [address] (test ualv=5490) [place] [address] BODY FLUID [id number] 18:30:00 Test Item Value Reference Range Comments CRYSTALS, BODY FLUID (BEAKER) No crystals seen. (test fnqo=2925) [id number] (BEAKER) Slade Granados MD (electronic (test yiiv=8304) signature) POCT-GLUCOSE [id number] 17:51:00 Test Item Value Reference Range Comments POC-GLUCOSE METER (BEAKER) 152 mg/dL 70-110 TESTED AT [address] (test wwrk=7643) [place] [address] [id number] 13:48:00 Test Item Value Reference Range Comments PHOSPHORUS (BEAKER) (test nyrh=481) 4.7 mg/dL 2.3-4.7 BODY FLUID CULTURE + GRAM [id number] 12:29:00 Test Item Value Reference Range Comments CULTURE (BEAKER) (test mofs=6997) No growth GRAM STAIN RESULT (BEAKER) (test <1+ White blood cells seen okel=6585) GRAM STAIN RESULT (BEAKER) (test No organisms seen nzns=44827) POCT-GLUCOSE [id number] 11:37:00 Test Item Value Reference Range Comments POC-GLUCOSE METER (BEAKER) 295 mg/dL 70-110 TESTED AT [address] (test xqbr=5333) [place] [id number] POCT-GLUCOSE [id number] 07:36:00 Test Item Value Reference Range Comments POC-GLUCOSE METER (BEAKER) 219 mg/dL 70-110 TESTED AT [address] (test syqd=8876) [place] [address] [id number] 06:49:00 Test Item Value Reference Range Comments MAGNESIUM (BEAKER) (test uump=647) 1.9 mg/dL 1.6-2.6 BASIC METABOLIC [id number] 06:49:00 Test Item Value Reference Range Comments SODIUM (BEAKER) (test 135 meq/L 136-145 snfn=102) POTASSIUM (BEAKER) (test 4.2 meq/L 3.5-5.1 vydv=760) CHLORIDE (BEAKER) (test 99 meq/L 98-107 cksw=713) CO2 (BEAKER) (test 25 meq/L 22-29 tjlv=315) BLOOD UREA NITROGEN 33 mg/dL 7-21 (BEAKER) (test vnun=918) CREATININE (BEAKER) (test 6.64 mg/dL 0.57-1.25 cehd=598) GLUCOSE RANDOM (BEAKER) 177 mg/dL 70-105 (test shvj=380) CALCIUM (BEAKER) (test 8.9 mg/dL 8.4-10.2 pqkq=562) EGFR (BEAKER) (test 8 mL/min/1.73 sq m ESTIMATED GFR IS NOT jqfn=2753) ACCURATE CREATININE CLEARANCE IN PREDICTING GLOMERULAR FILTRATION RATE. ESTIMATED GFR IS NOT APPLICABLE FOR DIALYSIS PATIENTS. CBC W/PLT COUNT & AUTO [id number] 05:55:00 Test Item Value Reference Range Comments WHITE BLOOD CELL COUNT (BEAKER) (test gypw=495) 6.3 K/ L 3.5-10.5 RED BLOOD CELL COUNT (BEAKER) (test nkzx=870) 2.51 M/ L 4.63-6.08 HEMOGLOBIN (BEAKER) (test ftfe=907) 7.7 GM/DL 13.7-17.5 HEMATOCRIT (BEAKER) (test hneq=123) 25.2 % 40.1-51.0 MEAN CORPUSCULAR VOLUME (BEAKER) (test pkae=463) 100.4 fL 79.0-92.2 MEAN CORPUSCULAR HEMOGLOBIN (BEAKER) (test 30.7 pg 25.7-32.2 xzip=081) MEAN CORPUSCULAR HEMOGLOBIN CONC (BEAKER) (test 30.6 GM/DL 32.3-36.5 yelo=869) RED CELL DISTRIBUTION WIDTH (BEAKER) (test 15.7 % 11.6-14.4 tmss=226) PLATELET COUNT (BEAKER) (test qoor=391) 211 K/CU MM 150-450 MEAN PLATELET VOLUME (BEAKER) (test jqcb=053) 11.9 fL 9.4-12.4 NUCLEATED RED BLOOD CELLS (BEAKER) (test 0 /100 WBC 0-0 zvdx=280) NEUTROPHILS RELATIVE PERCENT (BEAKER) (test 66 % xmat=126) LYMPHOCYTES RELATIVE PERCENT (BEAKER) (test 18 % guss=914) MONOCYTES RELATIVE PERCENT (BEAKER) (test 11 % ynoq=368) EOSINOPHILS RELATIVE PERCENT (BEAKER) (test 3 % vbsp=332) BASOPHILS RELATIVE PERCENT (BEAKER) (test 1 % nuhz=502) NEUTROPHILS ABSOLUTE COUNT (BEAKER) (test 4.15 K/ L 1.78-5.38 wfmv=722) LYMPHOCYTES ABSOLUTE COUNT (BEAKER) (test 1.12 K/ L 1.32-3.57 tpip=267) MONOCYTES ABSOLUTE COUNT (BEAKER) (test 0.69 K/ L 0.30-0.82 guyy=664) EOSINOPHILS ABSOLUTE COUNT (BEAKER) (test 0.18 K/ L 0.04-0.54 zjtc=643) BASOPHILS ABSOLUTE COUNT (BEAKER) (test 0.07 K/ L 0.01-0.08 xdcr=353) IMMATURE GRANULOCYTES-RELATIVE PERCENT (BEAKER) 2 % 0-1 (test tgpv=5560) POCT-GLUCOSE [id number] 21:34:00 Test Item Value Reference Range Comments POC-GLUCOSE METER (BEAKER) 218 mg/dL 70-110 TESTED AT [address] (test nord=4297) [facility] [address] POCT-GLUCOSE [id number] 17:42:00 Test Item Value Reference Range Comments POC-GLUCOSE METER (BEAKER) 209 mg/dL 70-110 TESTED AT [address] (test amjl=6591) [facility] [address] POCT-GLUCOSE [id number] 12:00:00 Test Item Value Reference Range Comments POC-GLUCOSE METER (BEAKER) 256 mg/dL 70-110 TESTED AT [address] (test obiq=8726) [facility] [address] POCT-GLUCOSE [id number] 08:07:00 Test Item Value Reference Range Comments POC-GLUCOSE METER (BEAKER) 226 mg/dL 70-110 TESTED AT [address] (test qtor=4528) [facility] [address] BASIC METABOLIC [id number] 06:16:00 Test Item Value Reference Range Comments SODIUM (BEAKER) (test 141 meq/L 136-145 mhyy=850) POTASSIUM (BEAKER) (test 4.3 meq/L 3.5-5.1 feve=508) CHLORIDE (BEAKER) (test 102 meq/L 98-107 cauw=226) CO2 (BEAKER) (test 28 meq/L 22-29 mwfr=217) BLOOD UREA NITROGEN 20 mg/dL 7-21 (BEAKER) (test plcr=697) CREATININE (BEAKER) (test 4.68 mg/dL 0.57-1.25 dwrt=254) GLUCOSE RANDOM (BEAKER) 181 mg/dL 70-105 (test mvsj=330) CALCIUM (BEAKER) (test 9.5 mg/dL 8.4-10.2 gynj=812) EGFR (BEAKER) (test 13 mL/min/1.73 sq m ESTIMATED GFR IS NOT pxtl=9253) ACCURATE CREATININE CLEARANCE IN PREDICTING GLOMERULAR FILTRATION RATE. ESTIMATED GFR IS NOT APPLICABLE FOR DIALYSIS PATIENTS. VANCOMYCIN LEVEL, [id number] 06:16:00 Test Item Value Reference Range Comments VANCOMYCIN RANDOM (BEAKER) (test idhl=889) 15.3 ug/mL Reference Range: No NormalsCBC W/PLT COUNT & AUTO [id number] 06: 16:00 Test Item Value Reference Range Comments WHITE BLOOD CELL COUNT (BEAKER) (test iotv=611) 9.2 K/ L 3.5-10.5 RED BLOOD CELL COUNT (BEAKER) (test ongy=311) 2.82 M/ L 4.63-6.08 HEMOGLOBIN (BEAKER) (test xsif=592) 8.7 GM/DL 13.7-17.5 HEMATOCRIT (BEAKER) (test uynp=651) 27.9 % 40.1-51.0 MEAN CORPUSCULAR VOLUME (BEAKER) (test bhpy=281) 98.9 fL 79.0-92.2 MEAN CORPUSCULAR HEMOGLOBIN (BEAKER) (test 30.9 pg 25.7-32.2 rbhd=119) MEAN CORPUSCULAR HEMOGLOBIN CONC (BEAKER) (test 31.2 GM/DL 32.3-36.5 zrfr=643) RED CELL DISTRIBUTION WIDTH (BEAKER) (test 15.7 % 11.6-14.4 ovyc=458) PLATELET COUNT (BEAKER) (test gvnq=947) 315 K/CU MM 150-450 MEAN PLATELET VOLUME (BEAKER) (test guas=169) 12.5 fL 9.4-12.4 NUCLEATED RED BLOOD CELLS (BEAKER) (test 0 /100 WBC 0-0 mujj=289) NEUTROPHILS RELATIVE PERCENT (BEAKER) (test 75 % ootj=850) LYMPHOCYTES RELATIVE PERCENT (BEAKER) (test 11 % mdzp=452) MONOCYTES RELATIVE PERCENT (BEAKER) (test 11 % drgb=940) EOSINOPHILS RELATIVE PERCENT (BEAKER) (test 1 % jakj=322) BASOPHILS RELATIVE PERCENT (BEAKER) (test 1 % brfm=255) NEUTROPHILS ABSOLUTE COUNT (BEAKER) (test 6.89 K/ L 1.78-5.38 qmdi=252) LYMPHOCYTES ABSOLUTE COUNT (BEAKER) (test 0.98 K/ L 1.32-3.57 epjl=928) MONOCYTES ABSOLUTE COUNT (BEAKER) (test 1.00 K/ L 0.30-0.82 dbwk=553) EOSINOPHILS ABSOLUTE COUNT (BEAKER) (test 0.12 K/ L 0.04-0.54 mafg=914) BASOPHILS ABSOLUTE COUNT (BEAKER) (test 0.06 K/ L 0.01-0.08 gvak=004) IMMATURE GRANULOCYTES-RELATIVE PERCENT (BEAKER) 1 % 0-1 (test awjj=2158) [id number] 06:07:00 Test Item Value Reference Range Comments MAGNESIUM (BEAKER) (test tiqq=496) 2.0 mg/dL 1.6-2.6 POCT-GLUCOSE [id number] 21:22:00 Test Item Value Reference Range Comments POC-GLUCOSE METER (BEAKER) 276 mg/dL 70-110 TESTED AT [facility] [address] [facility] (test zoct=1244) [facility] [address] BODY FLUID CELL COUNT WITH [id number] 19:44:00 Test Item Value Reference Range Comments APPEARANCE FLUID (BEAKER) (test tqjr=491) Slightly Hazy Clear COLOR FLUID (BEAKER) (test blnv=350) Yellow Colorless, Straw RBC FLUID (BEAKER) (test jxxa=380) 15 /cu mm <=1 ADJUSTED WBC FLUID (BEAKER) (test kgve=7750) 57 /cu mm <=5 LINING CELLS (BEAKER) (test pvtl=4963) 6 /cu mm <=1 NEUTROPHILS FLUID (BEAKER) (test ghhm=2539) 35 % LYMPHS FLUID (BEAKER) (test ches=775) 29 % MONO/MACROPHAGE FLUID (BEAKER) (test 36 % wkrs=145) EOSINOPHILS FLUID (BEAKER) (test nenu=978) 0 % BASO FLUID (BEAKER) (test eutf=994) 0 % CONTAINER BODY FLUID (BEAKER) (test EDTA Tube deix=9155) BODY FLUID CELL COUNT WITH [id number] 19:38:00 Test Item Value Reference Range Comments APPEARANCE FLUID (BEAKER) (test dxji=595) Clear Clear COLOR FLUID (BEAKER) (test ejzw=376) Straw Colorless, Straw RBC FLUID (BEAKER) (test jpqw=826) 28 /cu mm <=1 ADJUSTED WBC FLUID (BEAKER) (test rnzm=9084) 54 /cu mm <=5 LINING CELLS (BEAKER) (test gsbo=5873) 4 /cu mm <=1 NEUTROPHILS FLUID (BEAKER) (test zeld=9754) 23 % LYMPHS FLUID (BEAKER) (test lkdx=692) 33 % MONO/MACROPHAGE FLUID (BEAKER) (test qmuh=614) 44 % EOSINOPHILS FLUID (BEAKER) (test isha=381) 0 % BASO FLUID (BEAKER) (test vemu=408) 0 % CONTAINER BODY FLUID (BEAKER) (test fnjm=8267) EDTA Tube LACTATE DEHYDROGENASE (LDH), BODY [id number] 19:16:00 Test Item Value Reference Range Comments LACTATE DEHYDROGENASE FLUID (BEAKER) 163 U/L Light's criteria identifies (test zikd=738) effusions if one or more are pre Absence of reference range indicates that normals have not been defined.Assay performance has not been validated for this type of specimen.PROTEIN, BODY [id number] 19:16:00 Test Item Value Reference Range Comments PROTEIN FLUID (BEAKER) (test 4.2 g/dL Light's criteria identifies tvgd=660) effusions if one or more are pre Absence of reference range indicates that normals have not been defined.Assay performance has not been validated for this type of specimen.RAD, CHEST, PA OR AP, 1 [id number] 19:12:00Reason for exam:->s/p left thoracentesisFINAL REPORT History: Status post left thoracentesis. Comparison: Same [id number] hours Findings: A single view of the chest is submitted. There is been interval decrease in thesize of a left pleural effusion. A small to moderate left pleural effusion remains. There is no postprocedure pneumothorax. The cardiomediastinal contours are unremarkable. There is a small right pleural effusion. Bibasilar opacities, left greater than right may reflect atelectasis but pneumonitis should be excluded clinically. There is no acute bony abnormality. A vascular stent overlies the rightsubclavian region. Signed: Juan Alba MDReport Verified Date/Time: 19:12:04 Reading Location: [address] Reading Room PH, BODY [id number] 19:06:00 Test Item Value Reference Range Comments PH, BODY FLUID (BEAKER) (test kakk=5866) 8.00 ALBUMIN, BODY [id number] 18:55:00 Test Item Value Reference Range Comments ALBUMIN FLUID (BEAKER) (test usod=430) 2.9 gm/dL Reference Range: No Normals Assay performance has not been validated for this type of specimen.AMYLASE, BODY [id number] 18:55:00 Test Item Value Reference Range Comments AMYLASE FLUID (BEAKER) (test ookh=013) 18 U/L 30-110 Absence of reference range indicates that normals have not been defined.Assay performance has not been validated for this type of specimen.LACTATE DEHYDROGENASE (LDH), BODY [id number] 18:55:00 Test Item Value Reference Range Comments LACTATE DEHYDROGENASE FLUID (BEAKER) 161 U/L Light's criteria identifies (test gbrx=455) effusions if one or more are pre Absence of reference range indicates that normals have not been defined.Assay performance has not been validated for this type of specimen.PROTEIN, BODY [id number] 18:55:00 Test Item Value Reference Range Comments PROTEIN FLUID (BEAKER) (test 4.3 g/dL Light's criteria identifies hvnl=736) effusions if one or more are pre Absence of reference range indicates that normals have not been defined.Assay performance has not been validated for this type of specimen.TRIGLYCERIDES, BODY [id number] 18:55:00 Test Item Value Reference Range Comments TRIGLYCERIDES FLUID (BEAKER) (test ichz=070) 49 mg/dL Reference Range: No Normals Assay performance has not been validated for this type of specimen.CREATININE, BODY [id number] 18:55:00 Test Item Value Reference Range Comments CREATININE FLUID (BEAKER) (test nzzw=522) 3.31 mg/dL Reference Range: No Normals Assay performance has not been validated for this type of specimen.GLUCOSE, BODY [id number] 18:55:00 Test Item Value Reference Range Comments GLUCOSE, BODY FLUID (BEAKER) (test apki=0699) 204 mg/dL 70-110 Absence of reference range indicates that normals have not been defined.Assay performance has not been validated for this type of specimen.SPECIFIC GRAVITY, BODY [id number] 18:49:00 Test Item Value Reference Range Comments SP GRAVITY MISCELLANEOUS (BEAKER) (test ldlq=969) 1.030 Reference Range: No NormalsU/S, [id number] 18:35:00Laterality?-> LeftReason for exam:->pleural effusionFINAL REPORT Ultrasound Guided left Thoracentesis: Modality: Ultrasound Approach: Left Posterior Lateral Intercostal Sedation: None Findings: Informed consent was obtained. After an appropriate site for drainage was found, the skin was prepped and draped, and local anesthesia was given. A 4 Mauritian catheter was inserted into the left pleural space under ultrasound guidance,and approximately 1000 cc of yellow pleural fluid was aspirated. The catheter was removed. No immediate complications were noted. A postprocedure chest radiograph revealed no evidence of pneumothorax. Impression: 1. Uncomplicated ultrasound-guided left thoracentesis. Signed: Perfecto Spence MDReport Verified Date /Time: 01/19/2019 18:35:33 Reading Location: [address] Transitional Reading Room POCT-GLUCOSE [id number] 18:27:00 Test Item Value Reference Range Comments POC-GLUCOSE METER (BEAKER) 245 mg/dL 70-110 TESTED AT [address] (test dubq=6646) [place] [address] POCT-GLUCOSE [id number] 13:05:00 Test Item Value Reference Range Comments POC-GLUCOSE METER (BEAKER) 169 mg/dL 70-110 TESTED AT [address] (test vjqi=8485) [place] [address] RAD, CHEST, 1 VIEW, NON [id number] 10:50:00Reason for exam:->s/p pericardial drainShould this be performed at the bedside?->YesFINAL REPORT Comparison: 01/18/2019 TECHNIQUE: Single view of the chest FINDINGS: Interval placement of a drainage catheter projecting over the cardiac silhouette. Moderate left pleural effusion with adjacent airspace disease identified, increased from before. Mild vascular congestion suspected elsewhere. Cardiac silhouette is enlarged. Stent projects in the left arm soft tissues. Signed: Perfecto Spence MDReport Verified Date/Time: 01/19/2019 10:50:13 Reading Location: [address] Transitional Reading Room VANCOMYCIN LEVEL, [id number] 09:24:00 Test Item Value Reference Range Comments VANCOMYCIN RANDOM (BEAKER) (test hpof=786) 31.8 ug/mL Reference Range: No NormalsBASIC METABOLIC [id number] 05:55:00 Test Item Value Reference Range Comments SODIUM (BEAKER) (test 138 meq/L 136-145 coab=543) POTASSIUM (BEAKER) (test 3.9 meq/L 3.5-5.1 rpey=000) CHLORIDE (BEAKER) (test 101 meq/L 98-107 bqpw=392) CO2 (BEAKER) (test 26 meq/L 22-29 lekj=324) BLOOD UREA NITROGEN 19 mg/dL 7-21 (BEAKER) (test cxad=689) CREATININE (BEAKER) (test 4.62 mg/dL 0.57-1.25 eiou=733) GLUCOSE RANDOM (BEAKER) 149 mg/dL 70-105 (test ozrp=339) CALCIUM (BEAKER) (test 9.3 mg/dL 8.4-10.2 dizt=416) EGFR (BEAKER) (test 13 mL/min/1.73 sq m ESTIMATED GFR IS NOT xomj=7436) ACCURATE CREATININE CLEARANCE IN PREDICTING GLOMERULAR FILTRATION RATE. ESTIMATED GFR IS NOT APPLICABLE FOR DIALYSIS PATIENTS. CBC W/PLT COUNT & AUTO [id number] 05:07:00 Test Item Value Reference Range Comments WHITE BLOOD CELL COUNT (BEAKER) (test ghjr=038) 9.1 K/ L 3.5-10.5 RED BLOOD CELL COUNT (BEAKER) (test vscg=753) 2.74 M/ L 4.63-6.08 HEMOGLOBIN (BEAKER) (test ppvv=946) 8.6 GM/DL 13.7-17.5 HEMATOCRIT (BEAKER) (test mguy=661) 26.6 % 40.1-51.0 MEAN CORPUSCULAR VOLUME (BEAKER) (test cdfw=926) 97.1 fL 79.0-92.2 MEAN CORPUSCULAR HEMOGLOBIN (BEAKER) (test 31.4 pg 25.7-32.2 hxoa=940) MEAN CORPUSCULAR HEMOGLOBIN CONC (BEAKER) (test 32.3 GM/DL 32.3-36.5 tljf=874) RED CELL DISTRIBUTION WIDTH (BEAKER) (test 15.4 % 11.6-14.4 vpcz=899) PLATELET COUNT (BEAKER) (test cunr=725) 283 K/CU MM 150-450 MEAN PLATELET VOLUME (BEAKER) (test zadk=540) 12.2 fL 9.4-12.4 NUCLEATED RED BLOOD CELLS (BEAKER) (test 0 /100 WBC 0-0 fmhd=132) NEUTROPHILS RELATIVE PERCENT (BEAKER) (test 71 % ulau=936) LYMPHOCYTES RELATIVE PERCENT (BEAKER) (test 14 % xdff=862) MONOCYTES RELATIVE PERCENT (BEAKER) (test 12 % kudr=689) EOSINOPHILS RELATIVE PERCENT (BEAKER) (test 1 % bnde=855) BASOPHILS RELATIVE PERCENT (BEAKER) (test 1 % walm=783) NEUTROPHILS ABSOLUTE COUNT (BEAKER) (test 6.48 K/ L 1.78-5.38 waqy=441) LYMPHOCYTES ABSOLUTE COUNT (BEAKER) (test 1.25 K/ L 1.32-3.57 wemh=520) MONOCYTES ABSOLUTE COUNT (BEAKER) (test 1.07 K/ L 0.30-0.82 uywv=313) EOSINOPHILS ABSOLUTE COUNT (BEAKER) (test 0.06 K/ L 0.04-0.54 lxnc=195) BASOPHILS ABSOLUTE COUNT (BEAKER) (test 0.07 K/ L 0.01-0.08 aptt=265) IMMATURE GRANULOCYTES-RELATIVE PERCENT (BEAKER) 2 % 0-1 (test bthk=4572) POCT-GLUCOSE [id number] 00:04:00 Test Item Value Reference Range Comments POC-GLUCOSE METER (BEAKER) 134 mg/dL 70-110 TESTED AT [address] (test ktqq=5954) [facility] [address] POCT-GLUCOSE [id number] 21:27:00 Test Item Value Reference Range Comments POC-GLUCOSE METER (BEAKER) 227 mg/dL 70-110 TESTED AT [address] (test qdyf=2507) [facility] [address] BODY FLUID CELL COUNT WITH [id number] 19:53:00 Test Item Value Reference Range Comments APPEARANCE FLUID (BEAKER) (test dyto=088) Bloody Clear COLOR FLUID (BEAKER) (test blqe=183) Red Colorless, Straw RBC FLUID (BEAKER) (test juia=437) 614051 /cu mm <=1 ADJUSTED WBC FLUID (BEAKER) (test cchs=2312) 3915 /cu mm <=5 LINING CELLS (BEAKER) (test bicn=3356) 0 /cu mm <=1 NEUTROPHILS FLUID (BEAKER) (test zykr=2191) 70 % LYMPHS FLUID (BEAKER) (test inye=902) 15 % MONO/MACROPHAGE FLUID (BEAKER) (test 14 % wrao=716) EOSINOPHILS FLUID (BEAKER) (test prvk=826) 1 % BASO FLUID (BEAKER) (test rder=161) 0 % CONTAINER BODY FLUID (BEAKER) (test EDTA Tube bwfw=2167) ALBUMIN, BODY [id number] 19:29:00 Test Item Value Reference Range Comments ALBUMIN FLUID (BEAKER) (test duiz=480) 3.3 gm/dL Reference Range: No Normals Assay performance has not been validated for this type of specimen.[id number] 09:21:00 Test Item Value Reference Range Comments PROCALCITONIN (BEAKER) (test xoih=0285) 0.53 ng/mL <0.05 SEPSIS RISK (ng/mL)Low: 0.05-0.50Intermediate: 0.51-2.00High: & gt;=2.01TROPONIN [id number] 08:35:00 Test Item Value Reference Range Comments TROPONIN I (BEAKER) (test eafq=808) 0.12 ng/mL 0.00-0.03 Troponin I (TnI) levels must [...] failure, acidosis, acute neurological disease, and persistent tachyarrhythmia.B-TYPE NATRIURETIC FACTOR (BNP) 08:34:00 Test Item Value Reference Range Comments B-TYPE NATRIURETIC PEPTIDE (BEAKER) (test 198 pg/mL 0-100 exnw=654) BASIC METABOLIC [id number] 08:30:00 Test Item Value Reference Range Comments SODIUM (BEAKER) (test 137 meq/L 136-145 bszn=278) POTASSIUM (BEAKER) (test 3.6 meq/L 3.5-5.1 oxum=028) CHLORIDE (BEAKER) (test 99 meq/L 98-107 qfmk=783) CO2 (BEAKER) (test 25 meq/L 22-29 cktd=805) BLOOD UREA NITROGEN 21 mg/dL 7-21 (BEAKER) (test pvug=543) CREATININE (BEAKER) (test 5.31 mg/dL 0.57-1.25 jcwz=372) GLUCOSE RANDOM (BEAKER) 140 mg/dL 70-105 (test teqf=956) CALCIUM (BEAKER) (test 9.5 mg/dL 8.4-10.2 rmgt=414) EGFR (BEAKER) (test 11 mL/min/1.73 sq m ESTIMATED GFR IS NOT glxn=2380) ACCURATE CREATININE CLEARANCE IN PREDICTING GLOMERULAR FILTRATION RATE. ESTIMATED GFR IS NOT APPLICABLE FOR DIALYSIS PATIENTS. HEPATIC FUNCTION [id number] 08:28:00 Test Item Value Reference Range Comments TOTAL PROTEIN (BEAKER) (test dngs=496) 6.9 gm/dL 6.0-8.3 ALBUMIN (BEAKER) (test oxvc=6844) 3.9 g/dL 3.5-5.0 BILIRUBIN TOTAL (BEAKER) (test fonb=993) 0.6 mg/dL 0.2-1.2 BILIRUBIN DIRECT (BEAKER) (test csmw=753) 0.2 mg/dL 0.1-0.5 ALKALINE PHOSPHATASE (BEAKER) (test wcxv=637) 89 U/L 40-150 AST (SGOT) (BEAKER) (test jqhz=736) 10 U/L 5-34 ALT (SGPT) (BEAKER) (test qguc=391) 14 U/L 6-55 PROTHROMBIN [id number] 08:25:00 Test Item Value Reference Range Comments PROTIME (BEAKER) (test quhg=228) 16.7 seconds 11.7-14.7 INR (BEAKER) (test kttk=908) 1.4 <=5.9 RECOMMENDED COUMADIN/WARFARIN INR THERAPY RANGESSTANDARD DOSE: 2.0 - 3.0 Includes: PROPHYLAXIS forvenous thrombosis, systemic embolization; TREATMENT for venous thrombosis and/or pulmonary embolus.HIGH RISK: Target INR is 2.5-3.5 for patients with mechanical heart valves.RAD, CHEST, 1 VIEW, NON [id number] 08:09:00Reason for exam:->feverShould this be performed at the bedside?-& gt;YesFINAL REPORT Chest one view. Clinical history: fever Comparison: January 08, 2019, January 07, 2019 Discussion: A frontal chest is provided. Cardiac silhouette is enlarged. There is opacity in the left mid to lower lung, likely reflecting the presence of a moderate to large effusion and adjacent atelectasis/consolidation. Right lung appears clear. No pneumothorax. Signed: Graham Chan Verified Date/Time: 01/18/2019 08:09:08 Reading Location: [facility] Radiology Reading Room CBC W/PLT COUNT & AUTO [id number] 08:08:00 Test Item Value Reference Range Comments WHITE BLOOD CELL COUNT (BEAKER) (test kuwo=383) 11.0 K/ L 3.5-10.5 RED BLOOD CELL COUNT (BEAKER) (test mkao=960) 2.51 M/ L 4.63-6.08 HEMOGLOBIN (BEAKER) (test dnzq=390) 7.8 GM/DL 13.7-17.5 HEMATOCRIT (BEAKER) (test mzuc=398) 25.0 % 40.1-51.0 MEAN CORPUSCULAR VOLUME (BEAKER) (test mbhy=104) 99.6 fL 79.0-92.2 MEAN CORPUSCULAR HEMOGLOBIN (BEAKER) (test 31.1 pg 25.7-32.2 lqri=554) MEAN CORPUSCULAR HEMOGLOBIN CONC (BEAKER) (test 31.2 GM/DL 32.3-36.5 omex=492) RED CELL DISTRIBUTION WIDTH (BEAKER) (test 15.2 % 11.6-14.4 otgu=148) PLATELET COUNT (BEAKER) (test ibwm=653) 294 K/CU MM 150-450 MEAN PLATELET VOLUME (BEAKER) (test ddif=774) 11.7 fL 9.4-12.4 NUCLEATED RED BLOOD CELLS (BEAKER) (test 0 /100 WBC 0-0 jujy=454) NEUTROPHILS RELATIVE PERCENT (BEAKER) (test 71 % dohs=584) LYMPHOCYTES RELATIVE PERCENT (BEAKER) (test 15 % lfme=461) MONOCYTES RELATIVE PERCENT (BEAKER) (test 11 % wwqx=794) EOSINOPHILS RELATIVE PERCENT (BEAKER) (test 1 % gmtq=982) BASOPHILS RELATIVE PERCENT (BEAKER) (test 1 % rigd=153) NEUTROPHILS ABSOLUTE COUNT (BEAKER) (test 7.74 K/ L 1.78-5.38 ilnl=837) LYMPHOCYTES ABSOLUTE COUNT (BEAKER) (test 1.67 K/ L 1.32-3.57 fqql=858) MONOCYTES ABSOLUTE COUNT (BEAKER) (test 1.19 K/ L 0.30-0.82 ddjb=265) EOSINOPHILS ABSOLUTE COUNT (BEAKER) (test 0.09 K/ L 0.04-0.54 tquh=843) BASOPHILS ABSOLUTE COUNT (BEAKER) (test 0.09 K/ L 0.01-0.08 zlcv=653) IMMATURE GRANULOCYTES-RELATIVE PERCENT (BEAKER) 2 % 0-1 (test sygy=3706) POCT-LACTIC ACID, [id number] 08:06:00 Test Item Value Reference Range Comments POC-LACTIC ACID, VENOUS 1.0 mmol/L 0.9-1.7 TESTED AT [facility] [facility] (test xmtm=0402) [facility] [address] BLOOD [id number] 08:00:00 Test Item Value Reference Range Comments CULTURE (BEAKER) (test ubmz=4611) No growth in 5 days BLOOD [id number] 08:00:00 Test Item Value Reference Range Comments CULTURE (BEAKER) (test ugfh=7058) No growth in 5 days HEMOGLOBIN [id number] 20:14:00 Test Item Value Reference Range Comments HEMOGLOBIN A1C (BEAKER) (test vxdb=898) 6.8 % 4.3-6.1 RAD, CHEST, 1 VIEW, NON [id number] 16:01:00Reason for exam:->respiratory insufficiencyShould this be performed at the bedside?->YesFINAL REPORT Clinical History: Respiratory insufficiency Comparison Study: January 07, 2019 Findings: The cardiac silhouette is enlarged. The lungs are within normal limits. The pleural spaces are clear. No significant bony or soft tissue abnormalities are seen. A stent projects over the left shoulder. Impression: Cardiomegaly. Signed: Edd Ruiz MDReport Verified Date/Time: 01/08/2019 16:01:59 Reading Location: [address] Consult Reading Room Electronically signedby: EDD RUIZ M.D. on 01/08/2019 04:01 PMPOCT- GLUCOSE [id number] 12:01:00 Test Item Value Reference Range Comments POC-GLUCOSE METER (BEAKER) 178 mg/dL 70-110 TESTED AT [facility] [address] [facility] (test ppxz=6786) [facility] [address] BASIC METABOLIC [id number] 06:13:00 Test Item Value Reference Range Comments SODIUM (BEAKER) (test 138 meq/L 136-145 msjc=271) POTASSIUM (BEAKER) (test 4.6 meq/L 3.5-5.1 wvla=489) CHLORIDE (BEAKER) (test 101 meq/L 98-107 mkbq=952) CO2 (BEAKER) (test 23 meq/L 22-29 sdxy=842) BLOOD UREA NITROGEN 36 mg/dL 7-21 (BEAKER) (test vxsp=849) CREATININE (BEAKER) (test 6.83 mg/dL 0.57-1.25 vypo=641) GLUCOSE RANDOM (BEAKER) 166 mg/dL 70-105 (test ezwp=483) CALCIUM (BEAKER) (test 9.3 mg/dL 8.4-10.2 vikp=170) EGFR (BEAKER) (test 8 mL/min/1.73 sq m ESTIMATED GFR IS NOT zhok=9930) ACCURATE CREATININE CLEARANCE IN PREDICTING GLOMERULAR FILTRATION RATE. ESTIMATED GFR IS NOT APPLICABLE FOR DIALYSIS PATIENTS. CBC (HEMOGRAM ONLY)2019-01-08 05:22:00 Test Item Value Reference Range Comments WHITE BLOOD CELL COUNT (BEAKER) (test zhtp=776) 8.7 K/ L 3.5-10.5 RED BLOOD CELL COUNT (BEAKER) (test wroj=696) 2.86 M/ L 4.63-6.08 HEMOGLOBIN (BEAKER) (test kupl=552) 9.0 GM/DL 13.7-17.5 HEMATOCRIT (BEAKER) (test pdto=478) 29.4 % 40.1-51.0 MEAN CORPUSCULAR VOLUME (BEAKER) (test vpkt=709) 102.8 fL 79.0-92.2 MEAN CORPUSCULAR HEMOGLOBIN (BEAKER) (test 31.5 pg 25.7-32.2 dvzy=820) MEAN CORPUSCULAR HEMOGLOBIN CONC (BEAKER) (test 30.6 GM/DL 32.3-36.5 jope=224) RED CELL DISTRIBUTION WIDTH (BEAKER) (test 14.5 % 11.6-14.4 icwe=765) PLATELET COUNT (BEAKER) (test owjh=849) 256 K/CU MM 150-450 MEAN PLATELET VOLUME (BEAKER) (test fjdi=155) 11.9 fL 9.4-12.4 NUCLEATED RED BLOOD CELLS (BEAKER) (test 0 /100 WBC 0-0 fndw=613) POCT-GLUCOSE [id number] 21:50:00 Test Item Value Reference Range Comments POC-GLUCOSE METER (BEAKER) 211 mg/dL 70-110 TESTED AT [address] (test jedg=6126) [place] [id number] POCT-GLUCOSE [id number] 18:22:00 Test Item Value Reference Range Comments POC-GLUCOSE METER (BEAKER) 118 mg/dL 70-110 TESTED AT [address] (test buno=6035) [place] [id number] POCT-GLUCOSE [id number] 12:04:00 Test Item Value Reference Range Comments POC-GLUCOSE METER (BEAKER) 158 mg/dL 70-110 TESTED AT [address] (test xwja=6148) [place] [id number] RAD, CHEST, 1 VIEW, NON [id number] 10:43:00Reason for exam:->respiratory insufficiencyShould this be performed at the bedside?->YesFINAL REPORT INDICATION: respiratory insufficiency COMPARISON:January 06 TECHNIQUE: Chest radiograph, single view, portable technique. FINDINGS / IMPRESSION: Enlarged heart shadow andnonspecific left retrocardiac opacity again demonstrated. Pulmonary veins are prominent but no overtpulmonary edema. No pneumothorax. Osseous structures unremarkable. Signed: Kem Turk MDReportVerified Date/Time: 01/07/2019 10:43:17 Reading Location: [facility] Radiology Reading Room POCT-GLUCOSE [id number] 08:09:00 Test Item Value Reference Range Comments POC-GLUCOSE METER (BEAKER) 145 mg/dL 70-110 TESTED AT [address] (test cceb=2181) [facility] [address] POCT-GLUCOSE [id number] 21:32:00 Test Item Value Reference Range Comments POC-GLUCOSE METER (BEAKER) 274 mg/dL 70-110 TESTED AT [address] (test kyhr=4997) [facility] [address] POCT-GLUCOSE [id number] 17:20:00 Test Item Value Reference Range Comments POC-GLUCOSE METER (BEAKER) 215 mg/dL 70-110 TESTED AT [address] (test syip=6050) [facility] [address] POCT-GLUCOSE [id number] 14:33:00 Test Item Value Reference Range Comments POC-GLUCOSE METER (BEAKER) 200 mg/dL 70-110 TESTED AT [address] (test gnzn=5943) [facility] [address] POCT-GLUCOSE [id number] 11:13:00 Test Item Value Reference Range Comments POC-GLUCOSE METER (BEAKER) 289 mg/dL 70-110 TESTED AT [address] (test vhse=3793) [facility] [address] POCT-GLUCOSE [id number] 08:08:00 Test Item Value Reference Range Comments POC-GLUCOSE METER (BEAKER) 180 mg/dL 70-110 TESTED AT [address] (test sqlx=1979) [place] [id number] RAD, CHEST, 1 VIEW, NON [id number] 07:40:00Reason for exam:->respiratory insufficiencyShould this be performed at the bedside?->YesFINAL REPORT Chest dated 01/06/2019 COMPARISON: 01/05/2019 Clinical Information:respiratory insufficiency Comment: Heart is enlarged. Pulmonary vasculature is indistinct. Interstitial disease is seen bilaterally suggestive of vascular congestion unchanged from prior study. There is small left pleural effusion. Signed: Yuridia Wallace MDReport Verified Date/Time: 01/06/2019 07:40:30 Reading Location: [facility] B1 [id number] Consult Reading Room Electronically signed by: YURIDIA WALLACE M.D.on 01/06/2019 07:40 AMBASIC METABOLIC [id number] 07: 18:00 Test Item Value Reference Range Comments SODIUM (BEAKER) (test 136 meq/L 136-145 ltwx=809) POTASSIUM (BEAKER) (test 5.2 meq/L 3.5-5.1 xwtf=544) CHLORIDE (BEAKER) (test 100 meq/L 98-107 srgc=512) CO2 (BEAKER) (test 21 meq/L 22-29 nfus=109) BLOOD UREA NITROGEN 49 mg/dL 7-21 (BEAKER) (test nqxw=577) CREATININE (BEAKER) (test 8.64 mg/dL 0.57-1.25 ziwg=741) GLUCOSE RANDOM (BEAKER) 146 mg/dL 70-105 (test vmyb=170) CALCIUM (BEAKER) (test 9.6 mg/dL 8.4-10.2 hegm=658) EGFR (BEAKER) (test 6 mL/min/1.73 sq m ESTIMATED GFR IS NOT mvtm=1623) ACCURATE CREATININE CLEARANCE IN PREDICTING GLOMERULAR FILTRATION RATE. ESTIMATED GFR IS NOT APPLICABLE FOR DIALYSIS PATIENTS. VANCOMYCIN LEVEL, [id number] 07:13:00 Test Item Value Reference Range Comments VANCOMYCIN RANDOM (BEAKER) (test jtwo=159) 17.4 ug/mL Reference Range: No [id number] 07:09:00 Test Item Value Reference Range Comments MAGNESIUM (BEAKER) (test xrvr=183) 2.1 mg/dL 1.6-2.6 POCT-GLUCOSE [id number] 21:46:00 Test Item Value Reference Range Comments POC-GLUCOSE METER (BEAKER) 173 mg/dL 70-110 TESTED AT [facility] [address] [facility] (test gahx=9286) [facility] [address] POCT-GLUCOSE [id number] 16:20:00 Test Item Value Reference Range Comments POC-GLUCOSE METER (BEAKER) 172 mg/dL 70-110 TESTED AT [facility] [address] [facility] (test aalv=9001) [facility] [address] POCT-GLUCOSE [id number] 12:21:00 Test Item Value Reference Range Comments POC-GLUCOSE METER (BEAKER) 260 mg/dL 70-110 TESTED AT [place] [id number] [facility] (test ojcw=8125) [facility] [address] POCT-GLUCOSE [id number] 08:37:00 Test Item Value Reference Range Comments POC-GLUCOSE METER (BEAKER) 153 mg/dL 70-110 TESTED AT [address] (test owkk=5553) [facility] [address] RAD, CHEST, 1 VIEW, NON [id number] 07:04:00Reason for exam:->respiratory insufficiencyShould this be performed at the bedside?->YesFINAL REPORT RAD, CHEST, 1 VIEW, NON DEPT INDICATION: respiratory insufficiency COMPARISON: Prior day's exam FINDINGS: Portable frontal view of the chest. IMPRESSION: Support Lines: External leads Lungs and pleura: Bibasilar subsegmental atelectasis No pneumothorax.Heart and mediastinum: Stable contours. Additional findings: None. Signed: Beulah Last MDRkrishna Verified Date/Time: 01/05/2019 07:04:08 Reading Location: [address] Neuro Reading Room Electronically signed by: BEULAH LAST MD on 2018 07:04 AMBASIC METABOLIC [id number] 05:47:00 Test Item Value Reference Range Comments SODIUM (BEAKER) (test 133 meq/L 136-145 cinp=924) POTASSIUM (BEAKER) (test 5.1 meq/L 3.5-5.1 vkku=714) CHLORIDE (BEAKER) (test 97 meq/L 98-107 nosp=502) CO2 (BEAKER) (test 25 meq/L 22-29 dwss=439) BLOOD UREA NITROGEN 33 mg/dL 7-21 (BEAKER) (test btcf=202) CREATININE (BEAKER) (test 6.56 mg/dL 0.57-1.25 dpwn=180) GLUCOSE RANDOM (BEAKER) 156 mg/dL 70-105 (test kxnt=821) CALCIUM (BEAKER) (test 9.6 mg/dL 8.4-10.2 njje=140) EGFR (BEAKER) (test 9 mL/min/1.73 sq m ESTIMATED GFR IS NOT jgwm=4419) ACCURATE CREATININE CLEARANCE IN PREDICTING GLOMERULAR FILTRATION RATE. ESTIMATED GFR IS NOT APPLICABLE FOR DIALYSIS PATIENTS. [id number] 05:36:00 Test Item Value Reference Range Comments MAGNESIUM (BEAKER) (test vpzl=269) 1.9 mg/dL 1.6-2.6 CBC W/PLT COUNT & AUTO [id number] 05:18:00 Test Item Value Reference Range Comments WHITE BLOOD CELL COUNT (BEAKER) (test whrr=410) 10.5 K/ L 3.5-10.5 RED BLOOD CELL COUNT (BEAKER) (test aoao=719) 2.73 M/ L 4.63-6.08 HEMOGLOBIN (BEAKER) (test aabw=695) 8.6 GM/DL 13.7-17.5 HEMATOCRIT (BEAKER) (test xpto=259) 27.1 % 40.1-51.0 MEAN CORPUSCULAR VOLUME (BEAKER) (test ovkj=413) 99.3 fL 79.0-92.2 MEAN CORPUSCULAR HEMOGLOBIN (BEAKER) (test 31.5 pg 25.7-32.2 ffki=755) MEAN CORPUSCULAR HEMOGLOBIN CONC (BEAKER) (test 31.7 GM/DL 32.3-36.5 lwbq=968) RED CELL DISTRIBUTION WIDTH (BEAKER) (test 14.4 % 11.6-14.4 vaps=991) PLATELET COUNT (BEAKER) (test tors=017) 154 K/CU MM 150-450 MEAN PLATELET VOLUME (BEAKER) (test twtk=222) 12.5 fL 9.4-12.4 NUCLEATED RED BLOOD CELLS (BEAKER) (test 0 /100 WBC 0-0 feke=236) NEUTROPHILS RELATIVE PERCENT (BEAKER) (test 78 % jkal=184) LYMPHOCYTES RELATIVE PERCENT (BEAKER) (test 11 % xtss=639) MONOCYTES RELATIVE PERCENT (BEAKER) (test 10 % angy=049) EOSINOPHILS RELATIVE PERCENT (BEAKER) (test 0 % zsxp=636) BASOPHILS RELATIVE PERCENT (BEAKER) (test 1 % rchq=206) NEUTROPHILS ABSOLUTE COUNT (BEAKER) (test 8.18 K/ L 1.78-5.38 vxgh=511) LYMPHOCYTES ABSOLUTE COUNT (BEAKER) (test 1.11 K/ L 1.32-3.57 accu=429) MONOCYTES ABSOLUTE COUNT (BEAKER) (test 1.04 K/ L 0.30-0.82 hybj=257) EOSINOPHILS ABSOLUTE COUNT (BEAKER) (test 0.03 K/ L 0.04-0.54 vlmu=321) BASOPHILS ABSOLUTE COUNT (BEAKER) (test 0.05 K/ L 0.01-0.08 ydba=114) IMMATURE GRANULOCYTES-RELATIVE PERCENT (BEAKER) 1 % 0-1 (test wfnn=7789) BLOOD GAS, [id number] 05:12:00 Test Item Value Reference Range Comments PH ARTERIAL (BEAKER) (test dhtd=952) 7.44 7.35-7.45 PCO2 ARTERIAL (BEAKER) (test pnyi=696) 41 mmHg 35-45 PO2 ARTERIAL (BEAKER) (test ters=352) 118 mmHg 80-90 O2 SATURATION ARTERIAL (BEAKER) (test bogu=769) 98.0 % 96.0-97.0 HCO3 ARTERIAL (BEAKER) (test fnym=436) 26 mmol/L 21-29 BASE EXCESS ARTERIAL (BEAKER) (test lkph=173) 2.7 mmol/L -2.0-3.0 PATIENT TEMPERATURE (BEAKER) (test cieu=3225) 39.5 C FIO2 (BEAKER) (test iequ=8215) 21.0 % LACTIC ACID, [id number] 05:00:00 Test Item Value Reference Range Comments LACTATE BLOOD ARTERIAL (2) (BEAKER) (test 1.0 mmol/L 0.5-2.2 zkro=8840) BASIC METABOLIC [id number] 23:29:00 Test Item Value Reference Range Comments SODIUM (BEAKER) (test 135 meq/L 136-145 ruip=128) POTASSIUM (BEAKER) (test 4.9 meq/L 3.5-5.1 txiq=434) CHLORIDE (BEAKER) (test 98 meq/L 98-107 cwbm=697) CO2 (BEAKER) (test 26 meq/L 22-29 edkn=895) BLOOD UREA NITROGEN 29 mg/dL 7-21 (BEAKER) (test eyiy=801) CREATININE (BEAKER) (test 6.08 mg/dL 0.57-1.25 rjbz=892) GLUCOSE RANDOM (BEAKER) 192 mg/dL 70-105 (test fnaw=895) CALCIUM (BEAKER) (test 9.6 mg/dL 8.4-10.2 xwxn=094) EGFR (BEAKER) (test 9 mL/min/1.73 sq m ESTIMATED GFR IS NOT fesm=3843) ACCURATE CREATININE CLEARANCE IN PREDICTING GLOMERULAR FILTRATION RATE. ESTIMATED GFR IS NOT APPLICABLE FOR DIALYSIS PATIENTS. [id number] 23:17:00 Test Item Value Reference Range Comments MAGNESIUM (BEAKER) (test esmb=056) 1.9 mg/dL 1.6-2.6 CBC W/PLT COUNT & AUTO [id number] 22:52:00 Test Item Value Reference Range Comments WHITE BLOOD CELL COUNT (BEAKER) (test tqim=441) 10.4 K/ L 3.5-10.5 RED BLOOD CELL COUNT (BEAKER) (test pgmo=455) 2.82 M/ L 4.63-6.08 HEMOGLOBIN (BEAKER) (test nqqp=788) 8.8 GM/DL 13.7-17.5 HEMATOCRIT (BEAKER) (test oolb=843) 28.0 % 40.1-51.0 MEAN CORPUSCULAR VOLUME (BEAKER) (test iuju=321) 99.3 fL 79.0-92.2 MEAN CORPUSCULAR HEMOGLOBIN (BEAKER) (test 31.2 pg 25.7-32.2 xomb=984) MEAN CORPUSCULAR HEMOGLOBIN CONC (BEAKER) (test 31.4 GM/DL 32.3-36.5 npox=917) RED CELL DISTRIBUTION WIDTH (BEAKER) (test 14.1 % 11.6-14.4 xeou=597) PLATELET COUNT (BEAKER) (test omlw=617) 152 K/CU MM 150-450 MEAN PLATELET VOLUME (BEAKER) (test ttsy=252) 12.5 fL 9.4-12.4 NUCLEATED RED BLOOD CELLS (BEAKER) (test 0 /100 WBC 0-0 rlex=399) NEUTROPHILS RELATIVE PERCENT (BEAKER) (test 80 % chzq=079) LYMPHOCYTES RELATIVE PERCENT (BEAKER) (test 8 % tufo=618) MONOCYTES RELATIVE PERCENT (BEAKER) (test 10 % yhij=278) EOSINOPHILS RELATIVE PERCENT (BEAKER) (test 0 % npww=331) BASOPHILS RELATIVE PERCENT (BEAKER) (test 0 % bqib=964) NEUTROPHILS ABSOLUTE COUNT (BEAKER) (test 8.31 K/ L 1.78-5.38 ougq=515) LYMPHOCYTES ABSOLUTE COUNT (BEAKER) (test 0.87 K/ L 1.32-3.57 vows=576) MONOCYTES ABSOLUTE COUNT (BEAKER) (test 1.06 K/ L 0.30-0.82 ociq=013) EOSINOPHILS ABSOLUTE COUNT (BEAKER) (test 0.03 K/ L 0.04-0.54 gynk=410) BASOPHILS ABSOLUTE COUNT (BEAKER) (test 0.04 K/ L 0.01-0.08 cewy=288) IMMATURE GRANULOCYTES-RELATIVE PERCENT (BEAKER) 1 % 0-1 (test vvyc=8363) POCT-GLUCOSE [id number] 22:52:00 Test Item Value Reference Range Comments POC-GLUCOSE METER (BEAKER) 221 mg/dL 70-110 TESTED AT [address] (test mepj=7854) [place] [id number] POCT-GLUCOSE [id number] 19:02:00 Test Item Value Reference Range Comments POC-GLUCOSE METER (BEAKER) 182 mg/dL 70-110 TESTED AT [address] (test awqp=3881) [place] [id number] POCT-GLUCOSE [id number] 15:31:00 Test Item Value Reference Range Comments POC-GLUCOSE METER (BEAKER) 150 mg/dL 70-110 TESTED AT [address] (test oybw=3293) [place] [id number] POCT-GLUCOSE [id number] 12:07:00 Test Item Value Reference Range Comments POC-GLUCOSE METER (BEAKER) 284 mg/dL 70-110 TESTED AT [address] (test frkb=9336) [place] [id number] RAD, CHEST, 1 VIEW, NON [id number] 08:49:00Reason for exam:->respiratory insufficiencyShould this be performed at the bedside?->YesFINAL REPORT Clinical History: Respiratory insufficiency Comparison Study: January 03, 2019 Findings: The cardiac silhouette is enlarged. Mild interstitial markings are seen. The lungs are otherwise within normal limits. The pleural spaces are clear. No significant bony or soft tissue abnormalities are seen. Impression: Cardiomegaly. Signed: Edd Ruiz MDReport Verified Date/Time: 01/04/2019 08:49:14 Reading Location: [facility] Radiology Reading Room BASIC METABOLIC [id number] 06:21:00 Test Item Value Reference Range Comments SODIUM (BEAKER) (test 135 meq/L 136-145 xomx=326) POTASSIUM (BEAKER) (test 5.5 meq/L 3.5-5.1 rzrx=187) CHLORIDE (BEAKER) (test 99 meq/L 98-107 cilf=342) CO2 (BEAKER) (test 24 meq/L 22-29 ckue=688) BLOOD UREA NITROGEN 36 mg/dL 7-21 (BEAKER) (test isix=023) CREATININE (BEAKER) (test 7.37 mg/dL 0.57-1.25 sfqc=294) GLUCOSE RANDOM (BEAKER) 203 mg/dL 70-105 (test tbbc=541) CALCIUM (BEAKER) (test 9.7 mg/dL 8.4-10.2 lpev=045) EGFR (BEAKER) (test 7 mL/min/1.73 sq m ESTIMATED GFR IS NOT ygsm=9923) ACCURATE CREATININE CLEARANCE IN PREDICTING GLOMERULAR FILTRATION RATE. ESTIMATED GFR IS NOT APPLICABLE FOR DIALYSIS PATIENTS. [id number] 06:09:00 Test Item Value Reference Range Comments POTASSIUM (BEAKER) (test jdar=483) 5.5 meq/L 3.5-5.1 [id number] 06:09:00 Test Item Value Reference Range Comments MAGNESIUM (BEAKER) (test uzji=331) 2.2 mg/dL 1.6-2.6 [id number] 06:09:00 Test Item Value Reference Range Comments PHOSPHORUS (BEAKER) (test uvyx=169) 5.8 mg/dL 2.3-4.7 CBC W/PLT COUNT & AUTO [id number] 05:54:00 Test Item Value Reference Range Comments WHITE BLOOD CELL COUNT (BEAKER) (test equw=067) 11.3 K/ L 3.5-10.5 RED BLOOD CELL COUNT (BEAKER) (test znek=725) 2.88 M/ L 4.63-6.08 HEMOGLOBIN (BEAKER) (test kyfu=392) 9.1 GM/DL 13.7-17.5 HEMATOCRIT (BEAKER) (test vhjk=426) 28.6 % 40.1-51.0 MEAN CORPUSCULAR VOLUME (BEAKER) (test aztr=042) 99.3 fL 79.0-92.2 MEAN CORPUSCULAR HEMOGLOBIN (BEAKER) (test 31.6 pg 25.7-32.2 gczq=712) MEAN CORPUSCULAR HEMOGLOBIN CONC (BEAKER) (test 31.8 GM/DL 32.3-36.5 crjt=172) RED CELL DISTRIBUTION WIDTH (BEAKER) (test 14.4 % 11.6-14.4 kvns=441) PLATELET COUNT (BEAKER) (test khgr=481) 165 K/CU MM 150-450 MEAN PLATELET VOLUME (BEAKER) (test bvgy=890) 12.4 fL 9.4-12.4 NUCLEATED RED BLOOD CELLS (BEAKER) (test 0 /100 WBC 0-0 adhs=541) NEUTROPHILS RELATIVE PERCENT (BEAKER) (test 76 % onwn=861) LYMPHOCYTES RELATIVE PERCENT (BEAKER) (test 11 % pout=502) MONOCYTES RELATIVE PERCENT (BEAKER) (test 11 % djwg=167) EOSINOPHILS RELATIVE PERCENT (BEAKER) (test 0 % zhts=881) BASOPHILS RELATIVE PERCENT (BEAKER) (test 0 % cxwz=402) NEUTROPHILS ABSOLUTE COUNT (BEAKER) (test 8.59 K/ L 1.78-5.38 svox=710) LYMPHOCYTES ABSOLUTE COUNT (BEAKER) (test 1.28 K/ L 1.32-3.57 hqpn=634) MONOCYTES ABSOLUTE COUNT (BEAKER) (test 1.26 K/ L 0.30-0.82 xixd=237) EOSINOPHILS ABSOLUTE COUNT (BEAKER) (test 0.04 K/ L 0.04-0.54 ouiu=980) BASOPHILS ABSOLUTE COUNT (BEAKER) (test 0.05 K/ L 0.01-0.08 kfxi=688) IMMATURE GRANULOCYTES-RELATIVE PERCENT (BEAKER) 1 % 0-1 (test ptju=3992) BLOOD GAS, [id number] 05:34:00 Test Item Value Reference Range Comments PH ARTERIAL (BEAKER) (test jqjt=894) 7.41 7.35-7.45 PCO2 ARTERIAL (BEAKER) (test juad=839) 42 mmHg 35-45 PO2 ARTERIAL (BEAKER) (test ndqy=214) 105 mmHg 80-90 O2 SATURATION ARTERIAL (BEAKER) (test hrgi=551) 97.7 % 96.0-97.0 HCO3 ARTERIAL (BEAKER) (test qpoq=519) 26 mmol/L 21-29 BASE EXCESS ARTERIAL (BEAKER) (test yday=440) 0.9 mmol/L -2.0-3.0 PATIENT TEMPERATURE (BEAKER) (test lvyf=8755) 37.5 C FIO2 (BEAKER) (test txoz=7892) 21.0 % HEPATITIS B SURFACE [id number] 03:29:00 Test Item Value Reference Range Comments HEPATITIS B SURFACE ANTIGEN (2) (BEAKER) (test Nonreactive Nonreactive zlqj=2423) TROPONIN [id number] 03:04:00 Test Item Value Reference Range Comments TROPONIN I (BEAKER) (test yuoj=133) 2.70 ng/mL 0.00-0.03 Troponin I (TnI) levels [...] Range Comments CREATINE KINASE TOTAL (BEAKER) (test yawz=909) 340 U/L 29-200 [id number] 02:42:00 Test Item Value Reference Range Comments PROTIME (BEAKER) (test ptnd=938) 22.0 seconds 11.7-14.7 INR (BEAKER) (test yyvy=670) 2.0 <=5.9 PARTIAL THROMBOPLASTIN TIME (BEAKER) (test 114.6 seconds 22.5-36.0 xurt=456) RECOMMENDED COUMADIN/WARFARIN INR THERAPY RANGESSTANDARD DOSE: 2.0 - 3.0 Includes: PROPHYLAXIS forvenous thrombosis, systemic embolization; TREATMENT for venous thrombosis and/or pulmonary embolus.HIGH RISK: Target INR is 2.5-3.5 for patients with mechanical heart valves.BLOOD GAS, [id number] 02:15:00 Test Item Value Reference Range Comments PH ARTERIAL (BEAKER) (test vcym=724) 7.35 7.35-7.45 PCO2 ARTERIAL (BEAKER) (test iprg=518) 47 mmHg 35-45 PO2 ARTERIAL (BEAKER) (test mvba=255) 78 mmHg 80-90 O2 SATURATION ARTERIAL (BEAKER) (test vroj=670) 94.6 % 96.0-97.0 HCO3 ARTERIAL (BEAKER) (test fyfa=364) 25 mmol/L 21-29 BASE EXCESS ARTERIAL (BEAKER) (test jacb=289) -0.5 mmol/L -2.0-3.0 PATIENT TEMPERATURE (BEAKER) (test mnmn=1487) 37.5 C FIO2 (BEAKER) (test yyzq=0540) 21.0 % POCT-GLUCOSE [id number] 00:41:00 Test Item Value Reference Range Comments POC-GLUCOSE METER (BEAKER) 237 mg/dL 70-110 TESTED AT [address] (test pphs=1177) [facility] [address] TROPONIN [id number] 00:28:00 Test Item Value Reference Range Comments TROPONIN I (BEAKER) (test fdoa=450) 1.65 ng/mL 0.00-0.03 Troponin I (TnI) levels [...] acute neurological disease, and persistent tachyarrhythmia.COMPREHENSIVE METABOLIC [id number] 00:24:00 Test Item Value Reference Range Comments TOTAL PROTEIN (BEAKER) 6.4 gm/dL 6.0-8.3 (test bulp=939) ALBUMIN (BEAKER) (test 3.6 g/dL 3.5-5.0 kqyg=5360) ALKALINE PHOSPHATASE 75 U/L 40-150 (BEAKER) (test mqhz=557) BILIRUBIN TOTAL (BEAKER) 0.5 mg/dL 0.2-1.2 (test zetk=594) SODIUM (BEAKER) (test 133 meq/L 136-145 fdod=769) POTASSIUM (BEAKER) (test 5.7 meq/L 3.5-5.1 igws=033) CHLORIDE (BEAKER) (test 99 meq/L 98-107 hbdb=216) CO2 (BEAKER) (test 25 meq/L 22-29 ovus=315) BLOOD UREA NITROGEN 33 mg/dL 7-21 (BEAKER) (test mhra=499) CREATININE (BEAKER) (test 6.92 mg/dL 0.57-1.25 zwuk=461) GLUCOSE RANDOM (BEAKER) 234 mg/dL 70-105 (test xndq=586) CALCIUM (BEAKER) (test 9.1 mg/dL 8.4-10.2 mbxj=079) AST (SGOT) (BEAKER) (test 15 U/L 5-34 anur=077) ALT (SGPT) (BEAKER) (test 17 U/L 6-55 uwvy=730) EGFR (BEAKER) (test 8 mL/min/1.73 sq m ESTIMATED GFR IS NOT meem=2906) ACCURATE CREATININE CLEARANCE IN PREDICTING GLOMERULAR FILTRATION RATE. ESTIMATED GFR IS NOT APPLICABLE FOR DIALYSIS PATIENTS. [id number] 00:21:00 Test Item Value Reference Range Comments MAGNESIUM (BEAKER) (test klsn=387) 2.0 mg/dL 1.6-2.6 LACTIC ACID, [id number] 00:16:00 Test Item Value Reference Range Comments LACTATE BLOOD ARTERIAL (2) (BEAKER) (test 1.3 mmol/L 0.5-2.2 uboz=6653) BLOOD GAS, [id number] 23:54:00 Test Item Value Reference Range Comments PH ARTERIAL (BEAKER) (test huen=333) 7.32 7.35-7.45 PCO2 ARTERIAL (BEAKER) (test ijju=176) 51 mmHg 35-45 PO2 ARTERIAL (BEAKER) (test qurz=125) 133 mmHg 80-90 O2 SATURATION ARTERIAL (BEAKER) (test xrbt=662) 98.4 % 96.0-97.0 HCO3 ARTERIAL (BEAKER) (test oydb=290) 26 mmol/L 21-29 BASE EXCESS ARTERIAL (BEAKER) (test heme=853) -0.3 mmol/L -2.0-3.0 PATIENT TEMPERATURE (BEAKER) (test tjgk=2659) 37.0 C FIO2 (BEAKER) (test dciw=1412) 40.0 % RAD, CHEST, 1 VIEW, NON [id number] 22:24:00Reason for exam:-> hypotensionShould this be performed at the bedside?->YesFINAL REPORT Chest dated 01/03/2019 Clinical Information: hypotension Comment: Heart is enlarged. Pulmonary vasculature is indistinct. Interstitial disease is seen bilaterally suggestive of vascular congestion. Endotracheal tube is present. A curvilinear radiopaque density is seen in the mid upper chest. Please correlate clinically. Signed: Yuridia Wallace MDReport Verified Date/Time: 01/03/2019 22:24:07 Reading Location: [address] Consult Reading Room BASI METABOLIC [id number] 22:08:00 Test Item Value Reference Range Comments SODIUM (BEAKER) (test 136 meq/L 136-145 prph=297) POTASSIUM (BEAKER) (test 5.2 meq/L 3.5-5.1 Specimen slightly fema=558) hemolyzed CHLORIDE (BEAKER) (test 104 meq/L 98-107 ciwv=461) CO2 (BEAKER) (test 22 meq/L 22-29 adgy=795) BLOOD UREA NITROGEN 27 mg/dL 7-21 (BEAKER) (test cyrg=698) CREATININE (BEAKER) (test 5.82 mg/dL 0.57-1.25 Specimen slightly kihk=625) hemolyzed GLUCOSE RANDOM (BEAKER) 220 mg/dL 70-105 (test zkcd=032) CALCIUM (BEAKER) (test 8.0 mg/dL 8.4-10.2 ffek=783) EGFR (BEAKER) (test 10 mL/min/1.73 sq m ESTIMATED GFR IS NOT hyrl=4616) ACCURATE CREATININE CLEARANCE IN PREDICTING GLOMERULAR FILTRATION RATE. ESTIMATED GFR IS NOT APPLICABLE FOR DIALYSIS PATIENTS. [id number] 22:07:00 Test Item Value Reference Range Comments MAGNESIUM (BEAKER) (test 2.0 mg/dL 1.6-2.6 Specimen slightly hemolyzed xqqr=420) [id number] 22:07:00 Test Item Value Reference Range Comments PHOSPHORUS (BEAKER) (test 5.1 mg/dL 2.3-4.7 Specimen slightly hemolyzed hwtg=400) POTASSIUM-STAT [id number] 21:42:00 Test Item Value Reference Range Comments POTASSIUM (BEAKER) (test khsw=767) 4.7 meq/L 3.6-5.5 GLUCOSE-STAT [id number] 21:42:00 Test Item Value Reference Range Comments GLUCOSE RANDOM (BEAKER) (test bieo=498) 205 mg/dL 70-110 SODIUM NA-STAT [id number] 21:42:00 Test Item Value Reference Range Comments SODIUM (BEAKER) (test omgf=739) 134 meq/L 135-148 HGB/HCT (H&H) - STAT [id number] 21:42:00 Test Item Value Reference Range Comments HEMOGLOBIN (BEAKER) (test ybfm=147) 8.3 g/dL 13.0-16.8 HEMATOCRIT (BEAKER) (test kttw=145) 24.0 % 40.0-50.0 PT/[id number] 21:34:00 Test Item Value Reference Range Comments PROTIME (BEAKER) (test vfqx=567) 54.5 seconds 11.7-14.7 INR (BEAKER) (test xkdi=798) 6.6 <=5.9 PARTIAL THROMBOPLASTIN TIME (BEAKER) (test 116.0 seconds 22.5-36.0 nxwi=901) RECOMMENDED COUMADIN/WARFARIN INR THERAPY RANGESSTANDARD DOSE: 2.0 - 3.0 Includes: PROPHYLAXIS forvenous thrombosis, systemic embolization; TREATMENT for venous thrombosis and/or pulmonary embolus.HIGH RISK: Target INR is 2.5-3.5 for patients with mechanical heart valves.LACTIC ACID, [id number] 21:27:00 Test Item Value Reference Range Comments LACTATE BLOOD VENOUS (2) 1.7 mmol/L 0.5-2.2 Specimen moderately hemolyzed (BEAKER) (test rggv=2581) CBC W/PLT COUNT & AUTO [id number] 21:16:00 Test Item Value Reference Range Comments WHITE BLOOD CELL COUNT (BEAKER) (test urif=327) 13.2 K/ L 3.5-10.5 RED BLOOD CELL COUNT (BEAKER) (test ezgl=787) 2.96 M/ L 4.63-6.08 HEMOGLOBIN (BEAKER) (test jtam=959) 9.5 GM/DL 13.7-17.5 HEMATOCRIT (BEAKER) (test kflv=050) 29.8 % 40.1-51.0 MEAN CORPUSCULAR VOLUME (BEAKER) (test fekq=356) 100.7 fL 79.0-92.2 MEAN CORPUSCULAR HEMOGLOBIN (BEAKER) (test 32.1 pg 25.7-32.2 ufkh=157) MEAN CORPUSCULAR HEMOGLOBIN CONC (BEAKER) (test 31.9 GM/DL 32.3-36.5 vmec=552) RED CELL DISTRIBUTION WIDTH (BEAKER) (test 14.6 % 11.6-14.4 axlu=770) PLATELET COUNT (BEAKER) (test hjpf=367) 188 K/CU MM 150-450 MEAN PLATELET VOLUME (BEAKER) (test lzbc=728) 12.2 fL 9.4-12.4 NUCLEATED RED BLOOD CELLS (BEAKER) (test 0 /100 WBC 0-0 rzyt=879) NEUTROPHILS RELATIVE PERCENT (BEAKER) (test 74 % kvat=467) LYMPHOCYTES RELATIVE PERCENT (BEAKER) (test 14 % zdwt=221) MONOCYTES RELATIVE PERCENT (BEAKER) (test 11 % vtoj=108) EOSINOPHILS RELATIVE PERCENT (BEAKER) (test 0 % iyec=000) BASOPHILS RELATIVE PERCENT (BEAKER) (test 0 % hfxi=621) NEUTROPHILS ABSOLUTE COUNT (BEAKER) (test 9.78 K/ L 1.78-5.38 npzq=723) LYMPHOCYTES ABSOLUTE COUNT (BEAKER) (test 1.81 K/ L 1.32-3.57 zull=269) MONOCYTES ABSOLUTE COUNT (BEAKER) (test 1.46 K/ L 0.30-0.82 goxa=132) EOSINOPHILS ABSOLUTE COUNT (BEAKER) (test 0.01 K/ L 0.04-0.54 ufbk=330) BASOPHILS ABSOLUTE COUNT (BEAKER) (test 0.04 K/ L 0.01-0.08 yhtm=338) IMMATURE GRANULOCYTES-RELATIVE PERCENT (BEAKER) 1 % 0-1 (test mvbn=0052) BLOOD GAS, [id number] 21:03:00 Test Item Value Reference Range Comments PH ARTERIAL (BEAKER) (test mckj=395) 7.34 7.35-7.45 PCO2 ARTERIAL (BEAKER) (test celj=614) 49 mmHg 35-45 PO2 ARTERIAL (BEAKER) (test wpjr=838) 102 mmHg 80-90 O2 SATURATION ARTERIAL (BEAKER) (test yhgx=114) 97.3 % 96.0-97.0 HCO3 ARTERIAL (BEAKER) (test nbxr=366) 25 mmol/L 21-29 BASE EXCESS ARTERIAL (BEAKER) (test sgzp=653) -0.8 mmol/L -2.0-3.0 PATIENT TEMPERATURE (BEAKER) (test zart=6675) 37.0 C FIO2 (BEAKER) (test ukwb=2427) 40.0 % [id number] 18:33:00 Test Item Value Reference Range Comments ACTIVATED CLOTTING TIME 384 sec TESTED AT [facility] [address] [facility] (BEAKER) (test hcet=080) [facility] [address] PROTHROMBIN [id number] 14:04:00 Test Item Value Reference Range Comments PROTIME (BEAKER) (test vkhl=011) 14.3 seconds 11.7-14.7 INR (BEAKER) (test zyuo=546) 1.2 <=5.9 RECOMMENDED COUMADIN/WARFARIN INR THERAPY RANGESSTANDARD DOSE: 2.0 - 3.0 Includes: PROPHYLAXIS forvenous thrombosis, systemic embolization; TREATMENT for venous thrombosis and/or pulmonary embolus.HIGH RISK: Target INR is 2.5-3.5 for patients with mechanical heart valves.CBC W/PLT COUNT & AUTO [id number] 14:00:00 Test Item Value Reference Range Comments WHITE BLOOD CELL COUNT (BEAKER) (test sfzh=020) 15.0 K/ L 3.5-10.5 RED BLOOD CELL COUNT (BEAKER) (test ytof=172) 3.01 M/ L 4.63-6.08 HEMOGLOBIN (BEAKER) (test ozmt=163) 9.7 GM/DL 13.7-17.5 HEMATOCRIT (BEAKER) (test bpvl=766) 30.3 % 40.1-51.0 MEAN CORPUSCULAR VOLUME (BEAKER) (test ccdv=911) 100.7 fL 79.0-92.2 MEAN CORPUSCULAR HEMOGLOBIN (BEAKER) (test 32.2 pg 25.7-32.2 ignp=142) MEAN CORPUSCULAR HEMOGLOBIN CONC (BEAKER) (test 32.0 GM/DL 32.3-36.5 tncv=458) RED CELL DISTRIBUTION WIDTH (BEAKER) (test 14.6 % 11.6-14.4 nwrk=484) PLATELET COUNT (BEAKER) (test xwrn=711) 196 K/CU MM 150-450 MEAN PLATELET VOLUME (BEAKER) (test vwup=180) 12.4 fL 9.4-12.4 NUCLEATED RED BLOOD CELLS (BEAKER) (test 0 /100 WBC 0-0 fgcc=413) NEUTROPHILS RELATIVE PERCENT (BEAKER) (test 82 % hprm=641) LYMPHOCYTES RELATIVE PERCENT (BEAKER) (test 7 % nwvg=442) MONOCYTES RELATIVE PERCENT (BEAKER) (test 10 % rdpr=018) EOSINOPHILS RELATIVE PERCENT (BEAKER) (test 0 % dpbw=476) BASOPHILS RELATIVE PERCENT (BEAKER) (test 0 % yuru=765) NEUTROPHILS ABSOLUTE COUNT (BEAKER) (test 12.24 K/ L 1.78-5.38 pqpo=502) LYMPHOCYTES ABSOLUTE COUNT (BEAKER) (test 1.10 K/ L 1.32-3.57 pdez=102) MONOCYTES ABSOLUTE COUNT (BEAKER) (test 1.43 K/ L 0.30-0.82 slvs=947) EOSINOPHILS ABSOLUTE COUNT (BEAKER) (test 0.01 K/ L 0.04-0.54 fqaf=908) BASOPHILS ABSOLUTE COUNT (BEAKER) (test 0.06 K/ L 0.01-0.08 jiiu=726) IMMATURE GRANULOCYTES-RELATIVE PERCENT (BEAKER) 1 % 0-1 (test ggig=0098) TROPONIN [id number] 12:20:00 Test Item Value Reference Range Comments TROPONIN I (BEAKER) (test tjkr=103) < ng/mL 0.00-0.03 Troponin I (TnI) levels [...] acute neurological disease, and persistent tachyarrhythmia.COMPREHENSIVE METABOLIC [id number] 12:15:00 Test Item Value Reference Range Comments TOTAL PROTEIN (BEAKER) 7.0 gm/dL 6.0-8.3 (test nwys=982) ALBUMIN (BEAKER) (test 4.1 g/dL 3.5-5.0 mddp=6083) ALKALINE PHOSPHATASE 85 U/L 40-150 (BEAKER) (test whnv=747) BILIRUBIN TOTAL (BEAKER) 0.5 mg/dL 0.2-1.2 (test yzhq=068) SODIUM (BEAKER) (test 138 meq/L 136-145 emwq=328) POTASSIUM (BEAKER) (test 5.4 meq/L 3.5-5.1 wpdu=547) CHLORIDE (BEAKER) (test 101 meq/L 98-107 mtja=100) CO2 (BEAKER) (test 24 meq/L 22-29 ugrp=475) BLOOD UREA NITROGEN 24 mg/dL 7-21 (BEAKER) (test ugrl=484) CREATININE (BEAKER) (test 5.83 mg/dL 0.57-1.25 ugbi=375) GLUCOSE RANDOM (BEAKER) 213 mg/dL 70-105 (test wmce=685) CALCIUM (BEAKER) (test 9.4 mg/dL 8.4-10.2 bghl=973) AST (SGOT) (BEAKER) (test 16 U/L 5-34 iorz=368) ALT (SGPT) (BEAKER) (test 23 U/L 6-55 lmug=642) EGFR (BEAKER) (test 10 mL/min/1.73 sq m ESTIMATED GFR IS NOT nfbb=5914) ACCURATE CREATININE CLEARANCE IN PREDICTING GLOMERULAR FILTRATION RATE. ESTIMATED GFR IS NOT APPLICABLE FOR DIALYSIS PATIENTS. LIPID [id number] 12:13:00 Test Item Value Reference Range Comments TRIGLYCERIDES (BEAKER) (test xxnl=374) 158 mg/dL CHOLESTEROL (BEAKER) (test fgvs=606) 113 mg/dL HDL CHOLESTEROL (BEAKER) (test ltho=347) 34 mg/dL LDL CHOLESTEROL CALCULATED (BEAKER) (test 47 mg/dL esei=846) Triglyceride Reference Range: Low Risk <150 Borderline 150- 199 High Risk 200-499 Very High Risk >=500Cholesterol Reference Range: Low Risk <200 Borderline 200-239 High Risk > 240HDL Cholesterol Reference Range: Low Risk >=60 High Risk <40LDL Cholesterol Reference Range: Optimal <100 Near Optimal 100-129 Borderline 130-159 High 160-189 Very High >=190POCT-GLUCOSE [id number] 11:26:00 Test Item Value Reference Range Comments POC-GLUCOSE METER (EMMA) 291 mg/dL 70-110 TESTED AT [facility] [address] [facility] (test stxf=4238) [facility] [address]
[2019-03-12] MEDS ORDERED: NA CHLORIDE 0.9% 1,000 ML ONE (07:26)
== END 2019-03-12 07:59 | disposition home or self-care (01) ==
LOC: OR 07:05
PROVIDERS: ATTEND Internal Medicine Gastroenterology
DX: K21.9 Gastro-esophageal reflux disease without esophagitis (principal); Z53.09 Procedure and treatment not carried out because of other contraindication; I25.10 Atherosclerotic heart disease of native coronary artery without angina pectoris; I12.0 Hypertensive chronic kidney disease with stage 5 chronic kidney disease or end stage renal disease; E11.22 Type 2 diabetes mellitus with diabetic chronic kidney disease; N18.6 End stage renal disease; D63.1 Anemia in chronic kidney disease; I25.2 Old myocardial infarction; E66.01 Morbid (severe) obesity due to excess calories; Z68.39 Body mass index [BMI] 39.0-39.9, adult; G47.30 Sleep apnea, unspecified; K76.0 Fatty (change of) liver, not elsewhere classified; Z99.2 Dependence on renal dialysis; Z95.5 Presence of coronary angioplasty implant and graft; Z79.4 Long term (current) use of insulin; Z79.02 Long term (current) use of antithrombotics/antiplatelets; Z79.01 Long term (current) use of anticoagulants; Z79.899 Other long term (current) drug therapy
CPT/HCPCS: 82962; J7030

== ENCOUNTER 2019-05-20 22:15 | Emergency (ER) | payer OTHER, MEDICARE ==
--- OUTSIDE RECORDS SUMMARY | 2019-05-20 22:22 | XMS REPORT ---
:1950 [facility] [address] [place] [address] Care Team Providers Name Role Phone MALCOLM BAIN Unavailable Unavailable MALENA YEPEZ Unavailable Unavailable JOSEE KURTZ Unavailable Unavailable JEANETTE BANUELOS Unavailable Unavailable Problems This patient has no known problems. Allergies, Adverse Reactions, Alerts This patient has no known allergies or adverse reactions. Medications This patient has no known medications. Results Test Description Test Time Test Comments Text Results Atomic Results Result Comments POCT-GLUCOSE METER 2019-04-30 11:51:00 Test Item Value Reference Range Comments POC-GLUCOSE METER (BEAKER) (test 279 mg/dL 70-[address] [facility] [address] [facility] wptk=6654) [facility] [address] CBC W/PLT COUNT & AUTO [id number] 11:50:00 Test Item Value Reference Range Comments WHITE BLOOD CELL COUNT (BEAKER) (test byui=767) 10.1 K/ L 3.5-10.5 RED BLOOD CELL COUNT (BEAKER) (test ltkl=612) 2.96 M/ L 4.63-6.08 HEMOGLOBIN (BEAKER) (test ojwy=831) 9.3 GM/DL 13.7-17.5 HEMATOCRIT (BEAKER) (test qjci=508) 28.6 % 40.1-51.0 MEAN CORPUSCULAR VOLUME (BEAKER) (test kwkz=760) 96.6 fL 79.0-92.2 MEAN CORPUSCULAR HEMOGLOBIN (BEAKER) (test 31.4 pg 25.7-32.2 fsvk=811) MEAN CORPUSCULAR HEMOGLOBIN CONC (BEAKER) (test 32.5 GM/DL 32.3-36.5 pggh=372) RED CELL DISTRIBUTION WIDTH (BEAKER) (test 15.3 % 11.6-14.4 njvs=340) PLATELET COUNT (BEAKER) (test zefg=044) 130 K/CU MM 150-450 MEAN PLATELET VOLUME (BEAKER) (test yoiu=700) 12.1 fL 9.4-12.4 NUCLEATED RED BLOOD CELLS (BEAKER) (test 0 /100 WBC 0-0 mipa=496) NEUTROPHILS RELATIVE PERCENT (BEAKER) (test 80 % repr=796) LYMPHOCYTES RELATIVE PERCENT (BEAKER) (test 7 % hudl=127) MONOCYTES RELATIVE PERCENT (BEAKER) (test 7 % whet=397) EOSINOPHILS RELATIVE PERCENT (BEAKER) (test 2 % ddfq=715) BASOPHILS RELATIVE PERCENT (BEAKER) (test 0 % stde=335) NEUTROPHILS ABSOLUTE COUNT (BEAKER) (test 8.06 K/ L 1.78-5.38 lksv=518) LYMPHOCYTES ABSOLUTE COUNT (BEAKER) (test 0.70 K/ L 1.32-3.57 ezer=498) MONOCYTES ABSOLUTE COUNT (BEAKER) (test 0.75 K/ L 0.30-0.82 xcla=078) EOSINOPHILS ABSOLUTE COUNT (BEAKER) (test 0.15 K/ L 0.04-0.54 btbo=834) BASOPHILS ABSOLUTE COUNT (BEAKER) (test 0.02 K/ L 0.01-0.08 yitp=837) IMMATURE GRANULOCYTES-RELATIVE PERCENT (BEAKER) 4 % 0-1 (test rqmz=9639) BASIC METABOLIC [id number] 10:56:00 Test Item Value Reference Range Comments SODIUM (BEAKER) (test 134 meq/L 136-145 qdge=273) POTASSIUM (BEAKER) (test 5.3 meq/L 3.5-5.1 tyfr=060) CHLORIDE (BEAKER) (test 97 meq/L 98-107 eafp=495) CO2 (BEAKER) (test 22 meq/L 22-29 sjsd=119) BLOOD UREA NITROGEN 81 mg/dL 7-21 (BEAKER) (test qare=106) CREATININE (BEAKER) (test 8.20 mg/dL 0.57-1.25 rddo=710) GLUCOSE RANDOM (BEAKER) 365 mg/dL 70-105 (test jmye=227) CALCIUM (BEAKER) (test 8.4 mg/dL 8.4-10.2 gloj=064) EGFR (BEHÉCTOR) (test 7 mL/min/1.73 sq m ESTIMATED GFR IS NOT armj=0430) ACCURATE CREATININE CLEARANCE IN PREDICTING GLOMERULAR FILTRATION RATE. ESTIMATED GFR IS NOT APPLICABLE FOR DIALYSIS PATIENTS. RAD, CHEST, 1 VIEW, NON [id number] 08:58:00Reason for exam:->Post device placementShould this be performed at the bedside?->YesFINAL REPORT RAD, CHEST, 1 VIEW, NON DEPT INDICATION: Post device placement COMPARISON: Prior day's exam FINDINGS: Portable frontal view of the chest. IMPRESSION: Support Lines: Stable. Lungs and pleura: Unchanged airspace and pleural opacities. No pneumothorax.Heart and mediastinum: Stable contours. Stable surgical changes.Additional findings: None. Signed: Beulah Last Verified Date/Time: 04/30/2019 08:58:17 Reading Location: [facility] Reading Room POCT-GLUCOSE [id number] 08:16:00 Test Item Value Reference Range Comments POC-GLUCOSE METER (EMMA) 342 mg/dL 70-110 TESTED AT [address] (test geiq=8223) [facility] [address] RAD, CHEST, 1 VIEW, NON [id number] 06:14:00Reason for exam:->post device placementShould this be performed at the bedside?->YesFINAL REPORT RAD, CHEST, 1 VIEW, NON DEPT INDICATION: post device placement COMPARISON: Prior day's exam FINDINGS: Portable frontal view of the chest. IMPRESSION: Support Lines: Interval placement of a right chest wall pacer device with leads overlying right atrium. Lungs andpleura: Unchanged airspace and pleural opacities. No pneumothorax.Heart and mediastinum: Stable contours.Additional findings: Vascular stent over the left axilla. Signed: Nito Vieyra Verified Date/Time: 04/30/2019 06:14:19 Reading Location: [address] Reading Room POCT-GLUCOSE [id number] 01:09:00 Test Item Value Reference Range Comments POC-GLUCOSE METER (BEAKER) 187 mg/dL 70-110 TESTED AT [address] (test jcnd=3055) [facility] [address] POCT-GLUCOSE [id number] 20:12:00 Test Item Value Reference Range Comments POC-GLUCOSE METER (BEAKER) 175 mg/dL 70-110 TESTED AT [address] (test jnrj=3902) [facility] [address] POCT-GLUCOSE [id number] 17:34:00 Test Item Value Reference Range Comments POC-GLUCOSE METER (BEAKER) 88 mg/dL 70-110 TESTED AT [address] (test paon=8266) [place] [address] POCT-GLUCOSE [id number] 13:28:00 Test Item Value Reference Range Comments POC-GLUCOSE METER (BEAKER) 131 mg/dL 70-110 TESTED AT [address] (test ujtt=2851) [place] [address] RHEUMATOID FACTOR AB, REFLEX TO [id number] 11:35:00 Test Item Value Reference Range Comments RHEUMATOID FACTOR (BEAKER) (test iiel=813) Positive RHEUMATOID FACTOR [id number] 11:35:00 Test Item Value Reference Range Comments RHEUMATOID FACTOR TITER (BEAKER) (test xrgf=3108) :4 ANTI-NUCLEAR ANTIBODY (MARIAN)2019-04-29 10:25:00 Test Item Value Reference Range Comments ANTI-NUCLEAR ANTIBODY (MARIAN) (BEAKER) (test Negative Negative mpmh=904) Test performed by IFA method.Test performed by IFA method.BASIC METABOLIC [id number] 09:43:00 Test Item Value Reference Range Comments SODIUM (BEAKER) (test 132 meq/L 136-145 ttdq=432) POTASSIUM (BEAKER) (test 5.1 meq/L 3.5-5.1 eoat=425) CHLORIDE (BEAKER) (test 95 meq/L 98-107 tdsb=660) CO2 (BEAKER) (test 21 meq/L 22-29 bdtn=114) BLOOD UREA NITROGEN 111 mg/dL 7-21 (BEAKER) (test phxu=954) CREATININE (BEAKER) (test 9.82 mg/dL 0.57-1.25 zybo=952) GLUCOSE RANDOM (BEAKER) 163 mg/dL 70-105 (test vupz=653) CALCIUM (BEAKER) (test 8.5 mg/dL 8.4-10.2 mgoo=781) EGFR (BEAKER) (test 5 mL/min/1.73 sq m ESTIMATED GFR IS NOT xlmw=1844) ACCURATE CREATININE CLEARANCE IN PREDICTING GLOMERULAR FILTRATION RATE. ESTIMATED GFR IS NOT APPLICABLE FOR DIALYSIS PATIENTS. CBC W/PLT COUNT & AUTO [id number] 09:22:00 Test Item Value Reference Range Comments WHITE BLOOD CELL COUNT (BEAKER) (test nqqo=061) 12.1 K/ L 3.5-10.5 RED BLOOD CELL COUNT (BEAKER) (test imic=235) 2.97 M/ L 4.63-6.08 HEMOGLOBIN (BEAKER) (test mpef=438) 9.2 GM/DL 13.7-17.5 HEMATOCRIT (BEAKER) (test xotb=591) 28.4 % 40.1-51.0 MEAN CORPUSCULAR VOLUME (BEAKER) (test insm=313) 95.6 fL 79.0-92.2 MEAN CORPUSCULAR HEMOGLOBIN (BEAKER) (test 31.0 pg 25.7-32.2 lpqi=564) MEAN CORPUSCULAR HEMOGLOBIN CONC (BEAKER) (test 32.4 GM/DL 32.3-36.5 uaje=102) RED CELL DISTRIBUTION WIDTH (BEAKER) (test 14.6 % 11.6-14.4 lrst=208) PLATELET COUNT (BEAKER) (test smjh=085) 168 K/CU MM 150-450 MEAN PLATELET VOLUME (BEAKER) (test jkdg=188) 12.1 fL 9.4-12.4 NUCLEATED RED BLOOD CELLS (BEAKER) (test 0 /100 WBC 0-0 rava=375) NEUTROPHILS RELATIVE PERCENT (BEAKER) (test 77 % sori=995) LYMPHOCYTES RELATIVE PERCENT (BEAKER) (test 10 % lwdr=682) MONOCYTES RELATIVE PERCENT (BEAKER) (test 6 % vpog=527) EOSINOPHILS RELATIVE PERCENT (BEAKER) (test 1 % nhtu=431) BASOPHILS RELATIVE PERCENT (BEAKER) (test 0 % mfwb=057) NEUTROPHILS ABSOLUTE COUNT (BEAKER) (test 9.33 K/ L 1.78-5.38 mjeo=541) LYMPHOCYTES ABSOLUTE COUNT (BEAKER) (test 1.25 K/ L 1.32-3.57 rfgx=636) MONOCYTES ABSOLUTE COUNT (BEAKER) (test 0.76 K/ L 0.30-0.82 tzun=950) EOSINOPHILS ABSOLUTE COUNT (BEAKER) (test 0.14 K/ L 0.04-0.54 axep=228) BASOPHILS ABSOLUTE COUNT (BEAKER) (test 0.02 K/ L 0.01-0.08 xvlw=416) IMMATURE GRANULOCYTES-RELATIVE PERCENT (BEAKER) 5 % 0-1 (test atjl=1174) PROTHROMBIN [id number] 09:20:00 Test Item Value Reference Range Comments PROTIME (BEAKER) (test prsy=213) 14.9 seconds 11.9-14.2 INR (BEAKER) (test vjdt=414) 1.2 <=5.9 Effective 01/30/2019: PT Reference Range ChangeNew: 11.9-14.2 Previous: 11.7- 14.7RECOMMENDED COUMADIN/WARFARIN INR THERAPY RANGESSTANDARD DOSE: 2.0-3.0 Includes: PROPHYLAXIS for venous thrombosis, systemic embolization; TREATMENT for venous thrombosis and/or pulmonary embolus.HIGH RISK: Target INR is2.5-3.5 for patients wiht mechanical heart valves.Within 24 hours, if on CoumadinPOCT- GLUCOSE [id number] 07:57:00 Test Item Value Reference Range Comments POC-GLUCOSE METER (BEAKER) 183 mg/dL 70-110 TESTED AT [address] (test kphc=5016) [facility] [address] POCT-GLUCOSE [id number] 21:30:00 Test Item Value Reference Range Comments POC-GLUCOSE METER (BEAKER) 326 mg/dL 70-110 Will Repeat Test/TESTED AT (test rqvz=9078) [address] [address] POCT-GLUCOSE [id number] 17:47:00 Test Item Value Reference Range Comments POC-GLUCOSE METER (BEAKER) 332 mg/dL 70-110 TESTED AT [address] (test tany=8729) [facility] [address] POCT-GLUCOSE [id number] 11:54:00 Test Item Value Reference Range Comments POC-GLUCOSE METER (BEAKER) 171 mg/dL 70-[address] [facility] [address] [facility] (test mpud=6164) [facility] [address] POCT-GLUCOSE [id number] 08:21:00 Test Item Value Reference Range Comments POC-GLUCOSE METER (BEAKER) 171 mg/dL 70-110 TESTED AT [place] [id number] [facility] (test pcnf=7735) [facility] [address] CBC W/PLT COUNT & AUTO [id number] 07:27:00 Test Item Value Reference Range Comments WHITE BLOOD CELL COUNT (BEAKER) (test wffg=082) 13.7 K/ L 3.5-10.5 RED BLOOD CELL COUNT (BEAKER) (test cvct=474) 2.93 M/ L 4.63-6.08 HEMOGLOBIN (BEAKER) (test dmcb=958) 9.3 GM/DL 13.7-17.5 HEMATOCRIT (BEAKER) (test sivm=569) 28.0 % 40.1-51.0 MEAN CORPUSCULAR VOLUME (BEAKER) (test rwkq=264) 95.6 fL 79.0-92.2 MEAN CORPUSCULAR HEMOGLOBIN (BEAKER) (test 31.7 pg 25.7-32.2 crgb=039) MEAN CORPUSCULAR HEMOGLOBIN CONC (BEAKER) (test 33.2 GM/DL 32.3-36.5 dzgs=340) RED CELL DISTRIBUTION WIDTH (BEAKER) (test 14.6 % 11.6-14.4 tijm=130) PLATELET COUNT (BEAKER) (test voiy=813) 167 K/CU MM 150-450 MEAN PLATELET VOLUME (BEAKER) (test afrx=304) 12.3 fL 9.4-12.4 NUCLEATED RED BLOOD CELLS (BEAKER) (test 0 /100 WBC 0-0 gsmn=571) (CELLAVISION MANUAL DIFF)2019-04-28 07:27:00 Test Item Value Reference Range Comments NEUTROPHILS - REL (CELLAVISION)(BEAKER) (test 88 % qaub=3283) LYMPHOCYTES - REL (CELLAVISION)(BEAKER) (test 7 % tdgy=1936) MONOCYTES - REL (CELLAVISION)(BEAKER) (test 5 % higr=6032) NEUTROPHILS - ABS (CELLAVISION)(BEAKER) (test 12.06 K/ul 1.78-5.38 qkpw=8332) LYMPHOCYTES - ABS (CELLAVISION)(BEAKER) (test 0.96 K/ul 1.32-3.57 gisk=4186) MONOCYTES - ABS (CELLAVISION)(BEAKER) (test 0.69 K/uL 0.30-0.82 pxpz=3488) TOTAL COUNTED (BEAKER) (test olkf=8493) 100 WBC MORPHOLOGY (BEAKER) (test mxmy=793) Normal LARGE PLT(BEAKER) (test cxhg=6145) Present POLYCHROMATOPHILLIC RBCS(BEAKER) (test grqa=781) 1+ few HYPOCHROMIA (BEAKER) (test mskk=973) 1+ few ARTIFACT (CELLAVISION)(BEAKER) (test atvm=1754) Present PLATELET CONCENTRATION (CELLAVISION)(BEAKER) Adequate (test rqkd=4428) Received comment: User comments: Slide comments:BASIC METABOLIC [id number] 05:54:00 Test Item Value Reference Range Comments SODIUM (BEAKER) (test 132 meq/L 136-145 irjg=134) POTASSIUM (BEAKER) (test 4.9 meq/L 3.5-5.1 wjdm=092) CHLORIDE (BEAKER) (test 96 meq/L 98-107 abil=782) CO2 (BEAKER) (test 22 meq/L 22-29 vwpe=915) BLOOD UREA NITROGEN 92 mg/dL 7-21 (BEAKER) (test wnis=130) CREATININE (BEAKER) (test 7.77 mg/dL 0.57-1.25 ajql=008) GLUCOSE RANDOM (BEAKER) 150 mg/dL 70-105 (test kije=733) CALCIUM (BEAKER) (test 8.7 mg/dL 8.4-10.2 jrcr=178) EGFR (BEAKER) (test 7 mL/min/1.73 sq m ESTIMATED GFR IS NOT ejzg=1877) ACCURATE CREATININE CLEARANCE IN PREDICTING GLOMERULAR FILTRATION RATE. ESTIMATED GFR IS NOT APPLICABLE FOR DIALYSIS PATIENTS. POCT-GLUCOSE [id number] 21:28:00 Test Item Value Reference Range Comments POC-GLUCOSE METER (BEAKER) 296 mg/dL 70-[address] [facility] [address] [facility] (test xsmm=7355) [facility] [address] POCT-GLUCOSE [id number] 17:32:00 Test Item Value Reference Range Comments POC-GLUCOSE METER (BEAKER) 330 mg/dL 70-[address] [facility] [address] [facility] (test qyjn=9690) [facility] [address] CBC W/PLT COUNT & AUTO [id number] 16:02:00 Test Item Value Reference Range Comments WHITE BLOOD CELL COUNT (BEAKER) (test iyfw=628) 12.5 K/ L 3.5-10.5 RED BLOOD CELL COUNT (BEAKER) (test pllg=361) 2.91 M/ L 4.63-6.08 HEMOGLOBIN (BEAKER) (test rrez=419) 9.2 GM/DL 13.7-17.5 HEMATOCRIT (BEAKER) (test pdmn=614) 28.4 % 40.1-51.0 MEAN CORPUSCULAR VOLUME (BEAKER) (test osjx=919) 97.6 fL 79.0-92.2 MEAN CORPUSCULAR HEMOGLOBIN (BEAKER) (test 31.6 pg 25.7-32.2 cerl=686) MEAN CORPUSCULAR HEMOGLOBIN CONC (BEAKER) (test 32.4 GM/DL 32.3-36.5 gmka=868) RED CELL DISTRIBUTION WIDTH (BEAKER) (test 14.5 % 11.6-14.4 yzgm=652) PLATELET COUNT (BEAKER) (test kcxq=659) 162 K/CU MM 150-450 MEAN PLATELET VOLUME (BEAKER) (test ipxt=455) 12.5 fL 9.4-12.4 NUCLEATED RED BLOOD CELLS (BEAKER) (test 0 /100 WBC 0-0 zjjj=869) (CELLAVISION MANUAL DIFF)2019-04-27 16:02:00 Test Item Value Reference Range Comments NEUTROPHILS - REL (CELLAVISION)(BEAKER) (test 87 % duvt=0481) LYMPHOCYTES - REL (CELLAVISION)(BEAKER) (test 7 % khoq=1168) MONOCYTES - REL (CELLAVISION)(BEAKER) (test 6 % qmdb=2401) NEUTROPHILS - ABS (CELLAVISION)(BEAKER) (test 10.88 K/ul 1.78-5.38 gdyv=2946) LYMPHOCYTES - ABS (CELLAVISION)(BEAKER) (test 0.88 K/ul 1.32-3.57 cnzm=9975) MONOCYTES - ABS (CELLAVISION)(BEAKER) (test 0.75 K/uL 0.30-0.82 rrle=0175) TOTAL COUNTED (BEAKER) (test foow=8030) 100 WBC MORPHOLOGY (BEAKER) (test gals=178) Normal GIANT PLATELETS (BEAKER) (test dize=927) Present POLYCHROMATOPHILLIC RBCS(BEAKER) (test afdd=905) 1+ few HYPOCHROMIA (BEAKER) (test fkqp=223) 1+ few ANISOCYTOSIS (BEAKER) (test oovz=132) 1+ few MACROCYTES (BEAKER) (test ssyo=139) 1+ few POIKILOCYTES (BEAKER) (test btot=453) 2+ moderate OVALOCYTES (BEAKER) (test utef=108) 2+ moderate TEAR DROP CELLS (BEAKER) (test jsdb=154) 1+ few TONI CELLS (BEAKER) (test zpck=950) 2+ moderate ARTIFACT (CELLAVISION)(BEAKER) (test tiay=6392) Present PLATELET CONCENTRATION (CELLAVISION)(BEAKER) Adequate (test pxcv=3900) Received comment: User comments: Slide comments:POCT-GLUCOSE [id number] 11: 35:00 Test Item Value Reference Range Comments POC-GLUCOSE METER (BEAKER) 248 mg/dL 70-[address] [facility] [address] [facility] (test zvcb=2396) [facility] [address] T4, [id number] 08:58:00 Test Item Value Reference Range Comments FREE T4 (BEAKER) (test xmgy=930) 1.29 ng/dL 0.70-1.48 HEMOGLOBIN [id number] 08:50:00 Test Item Value Reference Range Comments HEMOGLOBIN A1C (BEAKER) (test dixy=058) 7.4 % 4.3-6.1 LIPID [id number] 08:07:00 Test Item Value Reference Range Comments TRIGLYCERIDES (BEAKER) (test oqhi=554) 115 mg/dL CHOLESTEROL (BEAKER) (test altl=958) 114 mg/dL HDL CHOLESTEROL (BEAKER) (test zmtn=313) 56 mg/dL LDL CHOLESTEROL CALCULATED (BEAKER) (test 35 mg/dL kqck=448) Triglyceride Reference Range: Low Risk <150 Borderline 150- 199 High Risk 200-499 Very High Risk >=500Cholesterol Reference Range: Low Risk <200 Borderline 200-239 High Risk > 240HDL Cholesterol Reference Range: Low Risk >=60 High Risk <40LDL Cholesterol Reference Range: Optimal <100 Near Optimal 100-129 Borderline 130-159 High 160-189 Very High >=190BASIC METABOLIC [id number] 08:07:00 Test Item Value Reference Range Comments SODIUM (BEAKER) (test 131 meq/L 136-145 dzdj=692) POTASSIUM (BEAKER) (test 4.9 meq/L 3.5-5.1 xtdy=637) CHLORIDE (BEAKER) (test 96 meq/L 98-107 mzpl=006) CO2 (BEAKER) (test 24 meq/L 22-29 prxb=192) BLOOD UREA NITROGEN 56 mg/dL 7-21 (BEAKER) (test yxbt=399) CREATININE (BEAKER) (test 6.09 mg/dL 0.57-1.25 xvuy=925) GLUCOSE RANDOM (BEAKER) 282 mg/dL 70-105 (test vuyo=440) CALCIUM (BEAKER) (test 8.6 mg/dL 8.4-10.2 bodz=391) EGFR (BEAKER) (test 9 mL/min/1.73 sq m ESTIMATED GFR IS NOT sykk=9220) ACCURATE CREATININE CLEARANCE IN PREDICTING GLOMERULAR FILTRATION RATE. ESTIMATED GFR IS NOT APPLICABLE FOR DIALYSIS PATIENTS. TSH/FREE T4 IF [id number] 08:04:00 Test Item Value Reference Range Comments THYROID STIMULATING HORMONE (BEAKER) (test 0.06 uIU/mL 0.35-4.94 uksc=015) POCT-GLUCOSE [id number] 07:38:00 Test Item Value Reference Range Comments POC-GLUCOSE METER (BEAKER) 316 mg/dL 70-110 TESTED AT [address] (test fjbx=1172) [facility] [address] POCT-GLUCOSE [id number] 21:22:00 Test Item Value Reference Range Comments POC-GLUCOSE METER (BEAKER) 194 mg/dL 70-110 TESTED AT [address] (test sndl=1348) [facility] [address] CBC W/PLT COUNT & AUTO [id number] 19:30:00 Test Item Value Reference Range Comments WHITE BLOOD CELL COUNT (BEAKER) (test ewao=191) 16.9 K/ L 3.5-10.5 RED BLOOD CELL COUNT (BEAKER) (test aycz=530) 3.08 M/ L 4.63-6.08 HEMOGLOBIN (BEAKER) (test owkj=697) 9.8 GM/DL 13.7-17.5 HEMATOCRIT (BEAKER) (test eqar=794) 29.5 % 40.1-51.0 MEAN CORPUSCULAR VOLUME (BEAKER) (test zryu=475) 95.8 fL 79.0-92.2 MEAN CORPUSCULAR HEMOGLOBIN (BEAKER) (test 31.8 pg 25.7-32.2 esqf=091) MEAN CORPUSCULAR HEMOGLOBIN CONC (BEAKER) (test 33.2 GM/DL 32.3-36.5 hjtj=418) RED CELL DISTRIBUTION WIDTH (BEAKER) (test 14.5 % 11.6-14.4 abud=389) PLATELET COUNT (BEAKER) (test fosl=387) 187 K/CU MM 150-450 MEAN PLATELET VOLUME (BEAKER) (test zcsb=572) 11.7 fL 9.4-12.4 NUCLEATED RED BLOOD CELLS (BEAKER) (test 0 /100 WBC 0-0 hjvq=943) (CELLAVISION MANUAL DIFF)2019-04-26 19:30:00 Test Item Value Reference Range Comments NEUTROPHILS - REL (CELLAVISION)(BEAKER) (test 83 % ezos=2254) LYMPHOCYTES - REL (CELLAVISION)(BEAKER) (test 6 % rhmc=6637) MONOCYTES - REL (CELLAVISION)(BEAKER) (test 4 % pwnl=5399) METAMYELOCYTES - REL (CELLAVISION)(BEAKER) (test 5 % 0-0 yrlp=6969) MYELOCYTES - REL (CELLAVISION)(BEAKER) (test 1 % 0-0 phxb=4021) BANDS - REL (CELLAVISION)(BEAKER) (test 1 % 0-10 tpgd=5955) NEUTROPHILS - ABS (CELLAVISION)(BEAKER) (test 14.03 K/ul 1.78-5.38 fcyw=8079) LYMPHOCYTES - ABS (CELLAVISION)(BEAKER) (test 1.01 K/ul 1.32-3.57 cnue=4050) MONOCYTES - ABS (CELLAVISION)(BEAKER) (test 0.68 K/uL 0.30-0.82 sznk=3144) METAMYELOCYTES - ABS (CELLAVISION)(BEAKER) (test 0.85 K/uL 0.00-0.00 zwwm=7288) MYELOCYTES-ABS (CELLAVISION)(BEAKER) (test 0.17 K/uL 0.00-0.00 nwhm=9460) BANDS - ABS (CELLAVISION)(BEAKER) (test 0.17 K/uL 0.00-0.80 zofv=0568) TOTAL COUNTED (BEAKER) (test xyjd=7392) 100 RBC MORPHOLOGY (BEAKER) (test wxbh=370) Normal WBC MORPHOLOGY (BEAKER) (test uuaz=352) Normal PLT MORPHOLOGY (BEAKER) (test mnke=670) Normal ARTIFACT (CELLAVISION)(BEAKER) (test hdxd=5990) Present PLATELET CONCENTRATION (CELLAVISION)(BEAKER) Adequate (test zier=6314) Received comment: User comments: Slide comments:B-TYPE NATRIURETIC FACTOR (BNP) 2019-04-26 19:20:00 Test Item Value Reference Range Comments B-TYPE NATRIURETIC PEPTIDE (BEAKER) (test 144 pg/mL 0-100 bpcq=086) TROPONIN [id number] 19:20:00 Test Item Value Reference Range Comments TROPONIN I (BEAKER) (test htff=686) 0.05 ng/mL 0.00-0.03 Troponin I (TnI) levels must [...] failure, acidosis, acute neurological disease, and persistent tachyarrhythmia.[id number] 19:17:00 Test Item Value Reference Range Comments PROTIME (BEAKER) (test ytmo=349) 13.9 seconds 11.9-14.2 INR (BEAKER) (test ixvp=318) 1.1 <=5.9 PARTIAL THROMBOPLASTIN TIME (BEAKER) (test 25.8 seconds 22.5-36.0 lvov=674) Effective 01/30/2019: PT Reference Range ChangeNew: 11.9-14.2 Previous: 11.7- 14.7RECOMMENDED COUMADIN/WARFARIN INR THERAPY RANGESSTANDARD DOSE: 2.0-3.0 Includes: PROPHYLAXIS for venous thrombosis, systemic embolization; TREATMENT for venous thrombosis and/or pulmonary embolus.HIGH RISK: Target INR is2.5-3.5 for patients wiht mechanical heart valves.BASIC METABOLIC [id number] 19:14: 00 Test Item Value Reference Range Comments SODIUM (BEAKER) (test 134 meq/L 136-145 qllu=494) POTASSIUM (BEAKER) (test 4.7 meq/L 3.5-5.1 dgtr=814) CHLORIDE (BEAKER) (test 96 meq/L 98-107 kjii=070) CO2 (BEAKER) (test 29 meq/L 22-29 nstw=942) BLOOD UREA NITROGEN 39 mg/dL 7-21 (BEAKER) (test vobi=927) CREATININE (BEAKER) (test 4.65 mg/dL 0.57-1.25 xeuw=542) GLUCOSE RANDOM (BEAKER) 129 mg/dL 70-105 (test stnj=289) CALCIUM (BEAKER) (test 8.9 mg/dL 8.4-10.2 rpvy=592) EGFR (BEAKER) (test 13 mL/min/1.73 sq m ESTIMATED GFR IS NOT pwrd=7313) ACCURATE CREATININE CLEARANCE IN PREDICTING GLOMERULAR FILTRATION RATE. ESTIMATED GFR IS NOT APPLICABLE FOR DIALYSIS PATIENTS. [id number] 19:13:00 Test Item Value Reference Range Comments MAGNESIUM (BEAKER) (test vksb=184) 2.4 mg/dL 1.6-2.6 RAD, CHEST, 1 VIEW, NON [id number] 17:54:00Reason for exam:->ABNORMAL ECGFINAL REPORT Chest, one view. HISTORY: ABNORMAL ECG COMPARISON: Radiograph from 04/14/2019 IMPRESSION: The left pleural effusion has increased and is now likely moderate volume.Mild left basilar subsegmental atelectasis. The cardiac silhouette is obscured. A stent overlies theleft axillary vasculature. A device overlies the midline chest. No pneumothorax. No acute bony abnormality. Signed: Juventino Williamson MDReport Verified Date/Time: 2018 17:54:42 Reading Location: [id number] Consult Reading Room C-REACTIVE [id number] 17:19:00 Test Item Value Reference Range Comments C-REACTIVE PROTEIN (BEAKER) (test cpyw=682) 0.22 mg/dL 0.00-0.50 POCT-GLUCOSE [id number] 15:56:00 Test Item Value Reference Range Comments POC-GLUCOSE METER (BEAKER) 283 mg/dL 70-110 TESTED AT [address] (test vqof=0965) [facility] [id number] POCT-GLUCOSE [id number] 11:40:00 Test Item Value Reference Range Comments POC-GLUCOSE METER (BEAKER) 319 mg/dL 70-110 TESTED AT [address] (test pmln=0220) [facility] [id number] CBC W/PLT COUNT & AUTO [id number] 09:52:00 Test Item Value Reference Range Comments WHITE BLOOD CELL COUNT (BEAKER) (test nuso=316) 10.9 K/ L 3.5-10.5 RED BLOOD CELL COUNT (BEAKER) (test vied=258) 2.73 M/ L 4.63-6.08 HEMOGLOBIN (BEAKER) (test eaov=345) 8.6 GM/DL 13.7-17.5 HEMATOCRIT (BEAKER) (test mbcz=218) 26.5 % 40.1-51.0 MEAN CORPUSCULAR VOLUME (BEAKER) (test wzuz=519) 97.1 fL 79.0-92.2 MEAN CORPUSCULAR HEMOGLOBIN (BEAKER) (test 31.5 pg 25.7-32.2 xpok=801) MEAN CORPUSCULAR HEMOGLOBIN CONC (BEAKER) (test 32.5 GM/DL 32.3-36.5 bwxt=666) RED CELL DISTRIBUTION WIDTH (BEAKER) (test 15.1 % 11.6-14.4 tavc=555) PLATELET COUNT (BEAKER) (test wwox=781) 205 K/CU MM 150-450 MEAN PLATELET VOLUME (BEAKER) (test asaw=327) 11.7 fL 9.4-12.4 NUCLEATED RED BLOOD CELLS (BEAKER) (test 0 /100 WBC 0-0 bmzw=805) NEUTROPHILS RELATIVE PERCENT (BEAKER) (test 87 % mmto=092) LYMPHOCYTES RELATIVE PERCENT (BEAKER) (test 8 % niwz=477) MONOCYTES RELATIVE PERCENT (BEAKER) (test 3 % ulni=301) EOSINOPHILS RELATIVE PERCENT (BEAKER) (test 0 % svfs=819) BASOPHILS RELATIVE PERCENT (BEAKER) (test 0 % juvl=059) NEUTROPHILS ABSOLUTE COUNT (BEAKER) (test 9.40 K/ L 1.78-5.38 hgtb=155) LYMPHOCYTES ABSOLUTE COUNT (BEAKER) (test 0.83 K/ L 1.32-3.57 ziev=389) MONOCYTES ABSOLUTE COUNT (BEAKER) (test 0.36 K/ L 0.30-0.82 mnnt=180) EOSINOPHILS ABSOLUTE COUNT (BEAKER) (test 0.00 K/ L 0.04-0.54 pvcq=108) BASOPHILS ABSOLUTE COUNT (BEAKER) (test 0.01 K/ L 0.01-0.08 wkji=295) IMMATURE GRANULOCYTES-RELATIVE PERCENT (BEAKER) 2 % 0-1 (test ijoe=1401) BASIC METABOLIC [id number] 08:06:00 Test Item Value Reference Range Comments SODIUM (BEAKER) (test 136 meq/L 136-145 kste=772) POTASSIUM (BEAKER) (test 6.3 meq/L 3.5-5.1 Specimen slightly vpyq=623) hemolyzed CHLORIDE (BEAKER) (test 101 meq/L 98-107 gokp=701) CO2 (BEAKER) (test 24 meq/L 22-29 igyl=676) BLOOD UREA NITROGEN 43 mg/dL 7-21 (BEAKER) (test cker=450) CREATININE (BEAKER) (test 5.78 mg/dL 0.57-1.25 Specimen slightly iubk=154) hemolyzed GLUCOSE RANDOM (BEAKER) 329 mg/dL 70-105 (test otxc=906) CALCIUM (BEAKER) (test 10.0 mg/dL 8.4-10.2 hxcj=256) EGFR (BEAKER) (test 10 mL/min/1.73 sq m ESTIMATED GFR IS NOT wlsh=2642) ACCURATE CREATININE CLEARANCE IN PREDICTING GLOMERULAR FILTRATION RATE. ESTIMATED GFR IS NOT APPLICABLE FOR DIALYSIS PATIENTS. [id number] 07:34:00 Test Item Value Reference Range Comments PHOSPHORUS (BEAKER) (test 5.3 mg/dL 2.3-4.7 Specimen slightly hemolyzed krjw=955) POCT-GLUCOSE [id number] 07:18:00 Test Item Value Reference Range Comments POC-GLUCOSE METER (BEAKER) 364 mg/dL 70-110 Notified RN MD/TESTED AT [facility] (test hfdx=8408) [address] [place] [address] HEPATITIS B SURFACE [id number] 22:01:00 Test Item Value Reference Range Comments HEPATITIS B SURFACE ANTIGEN (2) (BEAKER) (test Nonreactive Nonreactive kqpa=5475) POCT-GLUCOSE [id number] 21:39:00 Test Item Value Reference Range Comments POC-GLUCOSE METER (BEAKER) 334 mg/dL 70-110 Notified RN /TESTED AT [facility] (test fcyw=3512) [address] [place] [address] POCT-GLUCOSE [id number] 18:23:00 Test Item Value Reference Range Comments POC-GLUCOSE METER (BEAKER) 299 mg/dL 70-110 TESTED AT [address] (test hvct=1117) [facility] [address] BASIC METABOLIC [id number] 16:58:00 Test Item Value Reference Range Comments SODIUM (BEAKER) (test 139 meq/L 136-145 tdkp=781) POTASSIUM (BEAKER) (test 4.8 meq/L 3.5-5.1 sqwl=715) CHLORIDE (BEAKER) (test 102 meq/L 98-107 cwbl=548) CO2 (BEAKER) (test 28 meq/L 22-29 xned=889) BLOOD UREA NITROGEN 32 mg/dL 7-21 (BEAKER) (test hdtg=755) CREATININE (BEAKER) (test 4.62 mg/dL 0.57-1.25 qmfj=059) GLUCOSE RANDOM (BEAKER) 277 mg/dL 70-105 (test porn=297) CALCIUM (BEAKER) (test 10.0 mg/dL 8.4-10.2 psaj=403) EGFR (BEAKER) (test 13 mL/min/1.73 sq m ESTIMATED GFR IS NOT jhtr=1253) ACCURATE CREATININE CLEARANCE IN PREDICTING GLOMERULAR FILTRATION RATE. ESTIMATED GFR IS NOT APPLICABLE FOR DIALYSIS PATIENTS. CBC W/PLT COUNT & AUTO [id number] 16:41:00 Test Item Value Reference Range Comments WHITE BLOOD CELL COUNT (BEAKER) (test uyht=836) 15.2 K/ L 3.5-10.5 RED BLOOD CELL COUNT (BEAKER) (test ucjg=395) 2.86 M/ L 4.63-6.08 HEMOGLOBIN (BEAKER) (test ahld=528) 8.9 GM/DL 13.7-17.5 HEMATOCRIT (BEAKER) (test dkzk=320) 27.1 % 40.1-51.0 MEAN CORPUSCULAR VOLUME (BEAKER) (test dxqx=641) 94.8 fL 79.0-92.2 MEAN CORPUSCULAR HEMOGLOBIN (BEAKER) (test 31.1 pg 25.7-32.2 rotb=663) MEAN CORPUSCULAR HEMOGLOBIN CONC (BEAKER) (test 32.8 GM/DL 32.3-36.5 ttnz=052) RED CELL DISTRIBUTION WIDTH (BEAKER) (test 15.3 % 11.6-14.4 vqey=695) PLATELET COUNT (BEAKER) (test gnqx=517) 231 K/CU MM 150-450 MEAN PLATELET VOLUME (BEAKER) (test twfh=158) 11.7 fL 9.4-12.4 NUCLEATED RED BLOOD CELLS (BEAKER) (test 0 /100 WBC 0-0 rtxb=074) NEUTROPHILS RELATIVE PERCENT (BEAKER) (test 84 % apwn=317) LYMPHOCYTES RELATIVE PERCENT (BEAKER) (test 7 % yjip=847) MONOCYTES RELATIVE PERCENT (BEAKER) (test 7 % xihh=893) EOSINOPHILS RELATIVE PERCENT (BEAKER) (test 0 % kuwq=924) BASOPHILS RELATIVE PERCENT (BEAKER) (test 0 % zhqf=425) NEUTROPHILS ABSOLUTE COUNT (BEAKER) (test 12.77 K/ L 1.78-5.38 klci=477) LYMPHOCYTES ABSOLUTE COUNT (BEAKER) (test 1.03 K/ L 1.32-3.57 dnhm=043) MONOCYTES ABSOLUTE COUNT (BEAKER) (test 1.12 K/ L 0.30-0.82 lyyh=483) EOSINOPHILS ABSOLUTE COUNT (BEAKER) (test 0.00 K/ L 0.04-0.54 picd=026) BASOPHILS ABSOLUTE COUNT (BEAKER) (test 0.02 K/ L 0.01-0.08 vxtm=093) IMMATURE GRANULOCYTES-RELATIVE PERCENT (BEAKER) 1 % 0-1 (test fudn=3837) POCT-GLUCOSE [id number] 16:07:00 Test Item Value Reference Range Comments POC-GLUCOSE METER (BEAKER) 303 mg/dL 70-[address] [facility] [address] [facility] (test khth=7284) [facility] [address] TROPONIN [id number] 15:56:00 Test Item Value Reference Range Comments TROPONIN I (BEAKER) (test ybhd=739) 0.01 ng/mL 0.00-0.03 Troponin I (TnI) levels must [...] failure, acidosis, acute neurological disease, and persistent tachyarrhythmia.TROPONIN [id number] 08:07:00 Test Item Value Reference Range Comments TROPONIN I (BEAKER) (test chod=593) < ng/mL 0.00-0.03 Troponin I (TnI) levels [...] failure, acidosis, acute neurological disease, and persistent tachyarrhythmia.BASIC METABOLIC [id number] 08:05:00 Test Item Value Reference Range Comments SODIUM (BEAKER) (test 134 meq/L 136-145 ocfb=567) POTASSIUM (BEAKER) (test 6.0 meq/L 3.5-5.1 pokl=078) CHLORIDE (BEAKER) (test 94 meq/L 98-107 bjmq=612) CO2 (BEAKER) (test 26 meq/L 22-29 jpfs=271) BLOOD UREA NITROGEN 46 mg/dL 7-21 (BEAKER) (test dfox=363) CREATININE (BEAKER) (test 7.49 mg/dL 0.57-1.25 mttb=170) GLUCOSE RANDOM (BEAKER) 433 mg/dL 70-105 (test zrxj=755) CALCIUM (BEAKER) (test 10.7 mg/dL 8.4-10.2 dqns=565) EGFR (BEAKER) (test 7 mL/min/1.73 sq m ESTIMATED GFR IS NOT hxso=9594) ACCURATE CREATININE CLEARANCE IN PREDICTING GLOMERULAR FILTRATION RATE. ESTIMATED GFR IS NOT APPLICABLE FOR DIALYSIS PATIENTS. POCT-GLUCOSE [id number] 06:48:00 Test Item Value Reference Range Comments POC-GLUCOSE METER (BEAKER) 378 mg/dL 70-[address] [facility] [address] [facility] (test xwyp=4821) [facility] [address] CBC W/PLT COUNT & AUTO [id number] 03:42:00 Test Item Value Reference Range Comments WHITE BLOOD CELL COUNT (BEAKER) (test cxvu=357) 13.5 K/ L 3.5-10.5 RED BLOOD CELL COUNT (BEAKER) (test zbms=431) 2.98 M/ L 4.63-6.08 HEMOGLOBIN (BEAKER) (test gzep=225) 9.5 GM/DL 13.7-17.5 HEMATOCRIT (BEAKER) (test iboy=766) 28.4 % 40.1-51.0 MEAN CORPUSCULAR VOLUME (BEAKER) (test tuio=035) 95.3 fL 79.0-92.2 MEAN CORPUSCULAR HEMOGLOBIN (BEAKER) (test 31.9 pg 25.7-32.2 cptn=131) MEAN CORPUSCULAR HEMOGLOBIN CONC (BEAKER) (test 33.5 GM/DL 32.3-36.5 ivll=327) RED CELL DISTRIBUTION WIDTH (BEAKER) (test 15.1 % 11.6-14.4 fvqq=970) PLATELET COUNT (BEAKER) (test loox=113) 203 K/CU MM 150-450 MEAN PLATELET VOLUME (BEAKER) (test aqkl=033) 11.9 fL 9.4-12.4 NUCLEATED RED BLOOD CELLS (BEAKER) (test 0 /100 WBC 0-0 tsgf=181) NEUTROPHILS RELATIVE PERCENT (BEAKER) (test 85 % lbxp=748) LYMPHOCYTES RELATIVE PERCENT (BEAKER) (test 9 % bxfy=967) MONOCYTES RELATIVE PERCENT (BEAKER) (test 4 % pdnq=404) EOSINOPHILS RELATIVE PERCENT (BEAKER) (test 0 % jnje=868) BASOPHILS RELATIVE PERCENT (BEAKER) (test 0 % mhlf=981) NEUTROPHILS ABSOLUTE COUNT (BEAKER) (test 11.52 K/ L 1.78-5.38 csgf=302) LYMPHOCYTES ABSOLUTE COUNT (BEAKER) (test 1.17 K/ L 1.32-3.57 tuzi=500) MONOCYTES ABSOLUTE COUNT (BEAKER) (test 0.56 K/ L 0.30-0.82 xphk=656) EOSINOPHILS ABSOLUTE COUNT (BEAKER) (test 0.00 K/ L 0.04-0.54 cucc=526) BASOPHILS ABSOLUTE COUNT (BEAKER) (test 0.03 K/ L 0.01-0.08 zftd=124) IMMATURE GRANULOCYTES-RELATIVE PERCENT (BEAKER) 2 % 0-1 (test ycnm=5424) BASIC METABOLIC [id number] 03:38:00 Test Item Value Reference Range Comments SODIUM (BEAKER) (test 130 meq/L 136-145 caor=647) POTASSIUM (BEAKER) (test 6.3 meq/L 3.5-5.1 dekl=182) CHLORIDE (BEAKER) (test 94 meq/L 98-107 bvyg=537) CO2 (BEAKER) (test 22 meq/L 22-29 izcj=030) BLOOD UREA NITROGEN 42 mg/dL 7-21 (BEAKER) (test lvvm=066) CREATININE (BEAKER) (test 7.08 mg/dL 0.57-1.25 phom=230) GLUCOSE RANDOM (BEAKER) 430 mg/dL 70-105 (test rizx=395) CALCIUM (BEAKER) (test 10.6 mg/dL 8.4-10.2 nyrs=813) EGFR (BEAKER) (test 8 mL/min/1.73 sq m ESTIMATED GFR IS NOT odkp=9041) ACCURATE CREATININE CLEARANCE IN PREDICTING GLOMERULAR FILTRATION RATE. ESTIMATED GFR IS NOT APPLICABLE FOR DIALYSIS PATIENTS. TROPONIN [id number] 03:38:00 Test Item Value Reference Range Comments TROPONIN I (BEAKER) (test cwhm=427) < ng/mL 0.00-0.03 Troponin I (TnI) levels [...] failure, acidosis, acute neurological disease, and persistent tachyarrhythmia.CT, BRAIN, WITHOUT [id number] 03 :13:00Reason for exam:->LOSS OF CONSCIOUSNESSWhat is the patient's sedation requirement?->No SedationFINAL REPORT EXAM: CT head without contrast. CLINICAL HISTORY: LOSS OF CONSCIOUSNESS. BLURRY VISION COMPARISON: None. TECHNIQUE: CT images of the head were obtained without intravenous contrast. This exam was performed according to our departmental dose optimization program which includes automated exposure control, adjustment of the mA and/or kV according to patient's size and/or use of iterative reconstructive technique. FINDINGS:There is mild generalized parenchymal atrophy. There is intracranial calcific atherosclerosis.There is no acute intracranial hemorrhage, extra-axial fluid collection, mass effect, herniation, hydrocephalus or large demarcated acute territorial infarct. The basal cisterns are patent. The visualized orbits are normal. The visualized paranasal sinuses and tympanomastoid cavities are clear. The skull base and calvarium are intact. IMPRESSION: No CT evidence of an acute intracranial process. MRI may be performed for further evaluation if clinical suspicion for acute intracranial pathology persists. Signed: Pia Beebe [facility] Verified Date/Time: 04/14/2019 03:13:43 RAD, CHEST, 1 VIEW, NON [id number] 02:37: 00Reason for exam:->LOSS OF CONSCIOUSNESSShould this be performed at the bedside?->YesFINAL REPORT EXAMINATION: AP PORTABLE CHEST RADIOGRAPH CLINICAL INDICATION: Loss of consciousness IMPRESSION: Compared with 01/19/2019. Asymmetric curvilinear and patchy opacitiespersist at the left lung base, nonspecific but possibly reflecting atelectasis or scarring given themorphology, distribution and appearance of the prior study. New subtle radiolucency is noted at theleft lung base with a smooth margin which may reflect artifact. However, a cystic lung process, subpulmonic pneumothorax or hiatal hernia or subdiaphragmatic gas collection cannot be excluded on today' s limited AP portable study. Cardiac silhouette is enlarged as before. Mediastinal contours are similar to previous. Left-sided pleural effusion and/ or pleural thickening is again noted, decreased in size compared with the prior study. A vascular stent is again noted along the expected course of the terminal left cephalic vein. No definite evidence of an acute osseous abnormality or pneumothorax. Consider chest CT for further characterization if clinically warranted. Signed: Cynthia Marsh MDReport Verified Date/Time: 2018 02:37:40 Reading Location: [address] Reading Room AFB CULTURE + [id number] 10:35:00 Test Item Value Reference Range Comments CULTURE (BEAKER) (test No acid-fast bacilli isolated wvjj=9210) in 42 days AFB SMEAR (BEAKER) (test No acid fast bacilli seen jcci=285) FUNGUS CULTURE + [id number] 19:02:00 Test Item Value Reference Range Comments CULTURE (BEAKER) (test No fungus isolated in 28 days uiim=9223) FUNGUS SMEAR (BEAKER) (test No fungi seen esrm=3712) POCT-GLUCOSE [id number] 12:35:00 Test Item Value Reference Range Comments POC-GLUCOSE METER (BEAKER) 214 mg/dL 70-110 TESTED AT [address] (test czxg=1722) [facility] [address] BLOOD [id number] 12:01:00 Test Item Value Reference Range Comments CULTURE (BEAKER) (test ftlm=8474) No growth in 5 days BLOOD [id number] 12:01:00 Test Item Value Reference Range Comments CULTURE (BEAKER) (test yhku=0609) No growth in 5 days POCT-GLUCOSE [id number] 07:49:00 Test Item Value Reference Range Comments POC-GLUCOSE METER (BEAKER) 174 mg/dL 70-110 TESTED AT [address] (test zqjh=2924) [facility] [address] MR, CARDIAC WITHOUT [id number] 07:10:00Reason for exam:->r/o constrictive pericarditisFINAL REPORT Cardiac MRI dated 22 Jan 2019 INDICATION: Is a 68 year-old male with with past medical history of end-stage renal disease, coronary artery disease, PCI, on anticoagulation, there is a concern for underlying constrictive physiology. TECHNIQUE: Tali 3 Shauna SatmexIA MRI scanner. Morphologic and dynamic cine imaging [...] and function. Quantitative values are as follows: OMF=776 cc; ESV=73 cc; stroke hhrpeh=970 cc ; and ejection fraction=59%. Calculated absolute cardiac output=8.5 liters/ min. Absolute left ventricular mmfr=004 grams. The right ventricle is normal in size and function. Quantitative values are as follows: HCE=881 cc; ESV=78 cc ; stroke tlypbn=896 cc; and ejection fraction=57%. Index RV EDV=82 [...] MDReport Verified Date/Time: 01/23/2019 07:10:40 Reading Location: [place] [address] [facility] [place] [id number] 05:56:00 Test Item Value Reference Range Comments TOTAL PROTEIN (BEAKER) 5.8 gm/dL 6.0-8.3 (test pqpy=418) ALBUMIN (BEAKER) (test 3.1 g/dL 3.5-5.0 wbwa=8789) ALKALINE PHOSPHATASE 99 U/L 40-150 (BEAKER) (test gcfm=093) BILIRUBIN TOTAL (BEAKER) 0.4 mg/dL 0.2-1.2 (test yupr=406) SODIUM (BEAKER) (test 137 meq/L 136-145 avsq=330) POTASSIUM (BEAKER) (test 4.0 meq/L 3.5-5.1 zeug=034) CHLORIDE (BEAKER) (test 99 meq/L 98-107 lvyb=371) CO2 (BEAKER) (test 27 meq/L 22-29 rlzn=779) BLOOD UREA NITROGEN 32 mg/dL 7-21 (BEAKER) (test jrpw=153) CREATININE (BEAKER) (test 7.10 mg/dL 0.57-1.25 hcbw=947) GLUCOSE RANDOM (BEAKER) 170 mg/dL 70-105 (test ukdw=334) CALCIUM (BEAKER) (test 9.0 mg/dL 8.4-10.2 ymoz=512) AST (SGOT) (BEAKER) (test 14 U/L 5-34 qxwg=915) ALT (SGPT) (BEAKER) (test 21 U/L 6-55 qwdm=739) EGFR (BEAKER) (test 8 mL/min/1.73 sq m ESTIMATED GFR IS NOT uchj=9961) ACCURATE CREATININE CLEARANCE IN PREDICTING GLOMERULAR FILTRATION RATE. ESTIMATED GFR IS NOT APPLICABLE FOR DIALYSIS PATIENTS. C-REACTIVE [id number] 05:55:00 Test Item Value Reference Range Comments C-REACTIVE PROTEIN (BEAKER) (test oazt=551) 9.80 mg/dL 0.00-0.50 CBC W/PLT COUNT & AUTO [id number] 05:20:00 Test Item Value Reference Range Comments WHITE BLOOD CELL COUNT (BEAKER) (test mxct=986) 6.3 K/ L 3.5-10.5 RED BLOOD CELL COUNT (BEAKER) (test mxbh=725) 2.41 M/ L 4.63-6.08 HEMOGLOBIN (BEAKER) (test gyjg=189) 7.2 GM/DL 13.7-17.5 HEMATOCRIT (BEAKER) (test usdm=744) 23.3 % 40.1-51.0 MEAN CORPUSCULAR VOLUME (BEAKER) (test fcxt=605) 96.7 fL 79.0-92.2 MEAN CORPUSCULAR HEMOGLOBIN (BEAKER) (test 29.9 pg 25.7-32.2 vpod=750) MEAN CORPUSCULAR HEMOGLOBIN CONC (BEAKER) (test 30.9 GM/DL 32.3-36.5 kmtn=119) RED CELL DISTRIBUTION WIDTH (BEAKER) (test 15.4 % 11.6-14.4 xbch=960) PLATELET COUNT (BEAKER) (test rkzi=479) 236 K/CU MM 150-450 MEAN PLATELET VOLUME (BEAKER) (test nwtx=974) 11.8 fL 9.4-12.4 NUCLEATED RED BLOOD CELLS (BEAKER) (test 0 /100 WBC 0-0 bonp=304) NEUTROPHILS RELATIVE PERCENT (BEAKER) (test 65 % gdal=991) LYMPHOCYTES RELATIVE PERCENT (BEAKER) (test 20 % thkf=499) MONOCYTES RELATIVE PERCENT (BEAKER) (test 11 % rmri=694) EOSINOPHILS RELATIVE PERCENT (BEAKER) (test 3 % lwrv=461) BASOPHILS RELATIVE PERCENT (BEAKER) (test 1 % rnqk=526) NEUTROPHILS ABSOLUTE COUNT (BEAKER) (test 4.11 K/ L 1.78-5.38 qqwk=295) LYMPHOCYTES ABSOLUTE COUNT (BEAKER) (test 1.25 K/ L 1.32-3.57 jojr=813) MONOCYTES ABSOLUTE COUNT (BEAKER) (test 0.67 K/ L 0.30-0.82 tiwb=425) EOSINOPHILS ABSOLUTE COUNT (BEAKER) (test 0.20 K/ L 0.04-0.54 dvpe=027) BASOPHILS ABSOLUTE COUNT (BEAKER) (test 0.06 K/ L 0.01-0.08 ycvo=534) IMMATURE GRANULOCYTES-RELATIVE PERCENT (AKER) 1 % 0-1 (test djwy=0546) POCT-GLUCOSE [id number] 22:15:00 Test Item Value Reference Range Comments POC-GLUCOSE METER (BEAKER) 183 mg/dL 70-110 TESTED AT [address] (test khci=0592) [place] [address] BODY FLUID CULTURE + GRAM [id number] 13:25:00 Test Item Value Reference Range Comments CULTURE (BEAKER) (test rbml=8660) No growth GRAM STAIN RESULT (BEAKER) (test <1+ White blood cells seen cqyt=0939) GRAM STAIN RESULT (BEAKER) (test No organisms seen pjpo=43588) POCT-GLUCOSE [id number] 12:07:00 Test Item Value Reference Range Comments POC-GLUCOSE METER (BEAKER) 275 mg/dL 70-110 TESTED AT [address] (test wqlw=2144) [place] [address] POCT-GLUCOSE [id number] 07:57:00 Test Item Value Reference Range Comments POC-GLUCOSE METER (BEAKER) 160 mg/dL 70-110 TESTED AT [address] (test mccl=0773) [place] [address] POCT-GLUCOSE [id number] 21:56:00 Test Item Value Reference Range Comments POC-GLUCOSE METER (BEAKER) 210 mg/dL 70-110 TESTED AT [address] (test oqfi=2719) [place] [address] BODY FLUID [id number] 18:30:00 Test Item Value Reference Range Comments CRYSTALS, BODY FLUID (BEAKER) No crystals seen. (test naac=0724) [id number] (BEAKER) Slade Granados MD (electronic (test icqc=8183) signature) POCT-GLUCOSE [id number] 17:51:00 Test Item Value Reference Range Comments POC-GLUCOSE METER (BEAKER) 152 mg/dL 70-110 TESTED AT [address] (test aazf=9902) [place] [address] [id number] 13:48:00 Test Item Value Reference Range Comments PHOSPHORUS (BEAKER) (test dgob=464) 4.7 mg/dL 2.3-4.7 BODY FLUID CULTURE + GRAM [id number] 12:29:00 Test Item Value Reference Range Comments CULTURE (BEAKER) (test yztq=1128) No growth GRAM STAIN RESULT (BEAKER) (test <1+ White blood cells seen bbwk=2797) GRAM STAIN RESULT (BEAKER) (test No organisms seen lkhm=40596) POCT-GLUCOSE [id number] 11:37:00 Test Item Value Reference Range Comments POC-GLUCOSE METER (BEAKER) 295 mg/dL 70-110 TESTED AT [address] (test zfjc=6252) [place] [address] POCT-GLUCOSE [id number] 07:36:00 Test Item Value Reference Range Comments POC-GLUCOSE METER (BEAKER) 219 mg/dL 70-110 TESTED AT [address] (test yeoe=3113) [place] [address] [id number] 06:49:00 Test Item Value Reference Range Comments MAGNESIUM (BEAKER) (test czef=262) 1.9 mg/dL 1.6-2.6 BASIC METABOLIC [id number] 06:49:00 Test Item Value Reference Range Comments SODIUM (BEAKER) (test 135 meq/L 136-145 emlv=853) POTASSIUM (BEAKER) (test 4.2 meq/L 3.5-5.1 kacr=569) CHLORIDE (BEAKER) (test 99 meq/L 98-107 gyju=889) CO2 (BEAKER) (test 25 meq/L 22-29 irdb=112) BLOOD UREA NITROGEN 33 mg/dL 7-21 (BEAKER) (test rlih=078) CREATININE (BEAKER) (test 6.64 mg/dL 0.57-1.25 vdvo=879) GLUCOSE RANDOM (BEAKER) 177 mg/dL 70-105 (test lcbr=671) CALCIUM (BEAKER) (test 8.9 mg/dL 8.4-10.2 lyok=004) EGFR (BEAKER) (test 8 mL/min/1.73 sq m ESTIMATED GFR IS NOT lczc=6271) ACCURATE CREATININE CLEARANCE IN PREDICTING GLOMERULAR FILTRATION RATE. ESTIMATED GFR IS NOT APPLICABLE FOR DIALYSIS PATIENTS. CBC W/PLT COUNT & AUTO [id number] 05:55:00 Test Item Value Reference Range Comments WHITE BLOOD CELL COUNT (BEAKER) (test bwid=804) 6.3 K/ L 3.5-10.5 RED BLOOD CELL COUNT (BEAKER) (test sloq=646) 2.51 M/ L 4.63-6.08 HEMOGLOBIN (BEAKER) (test xsna=933) 7.7 GM/DL 13.7-17.5 HEMATOCRIT (BEAKER) (test sjev=014) 25.2 % 40.1-51.0 MEAN CORPUSCULAR VOLUME (BEAKER) (test kfkp=848) 100.4 fL 79.0-92.2 MEAN CORPUSCULAR HEMOGLOBIN (BEAKER) (test 30.7 pg 25.7-32.2 gagf=449) MEAN CORPUSCULAR HEMOGLOBIN CONC (BEAKER) (test 30.6 GM/DL 32.3-36.5 gaht=755) RED CELL DISTRIBUTION WIDTH (BEAKER) (test 15.7 % 11.6-14.4 xvta=593) PLATELET COUNT (BEAKER) (test jxlw=769) 211 K/CU MM 150-450 MEAN PLATELET VOLUME (BEAKER) (test bidj=213) 11.9 fL 9.4-12.4 NUCLEATED RED BLOOD CELLS (BEAKER) (test 0 /100 WBC 0-0 oloo=983) NEUTROPHILS RELATIVE PERCENT (BEAKER) (test 66 % wcvd=531) LYMPHOCYTES RELATIVE PERCENT (BEAKER) (test 18 % kebn=140) MONOCYTES RELATIVE PERCENT (BEAKER) (test 11 % brwe=286) EOSINOPHILS RELATIVE PERCENT (BEAKER) (test 3 % yonz=615) BASOPHILS RELATIVE PERCENT (BEAKER) (test 1 % kukn=499) NEUTROPHILS ABSOLUTE COUNT (BEAKER) (test 4.15 K/ L 1.78-5.38 dgrb=411) LYMPHOCYTES ABSOLUTE COUNT (BEAKER) (test 1.12 K/ L 1.32-3.57 nvpj=041) MONOCYTES ABSOLUTE COUNT (BEAKER) (test 0.69 K/ L 0.30-0.82 loor=569) EOSINOPHILS ABSOLUTE COUNT (BEAKER) (test 0.18 K/ L 0.04-0.54 gbcz=902) BASOPHILS ABSOLUTE COUNT (BEAKER) (test 0.07 K/ L 0.01-0.08 hpew=062) IMMATURE GRANULOCYTES-RELATIVE PERCENT (BEAKER) 2 % 0-1 (test hzde=7367) POCT-GLUCOSE [id number] 21:34:00 Test Item Value Reference Range Comments POC-GLUCOSE METER (BEAKER) 218 mg/dL 70-110 TESTED AT [address] (test rltq=5712) [facility] [address] POCT-GLUCOSE [id number] 17:42:00 Test Item Value Reference Range Comments POC-GLUCOSE METER (BEAKER) 209 mg/dL 70-110 TESTED AT [address] (test cxzl=8974) [facility] [address] POCT-GLUCOSE [id number] 12:00:00 Test Item Value Reference Range Comments POC-GLUCOSE METER (BEAKER) 256 mg/dL 70-110 TESTED AT [address] (test fsyq=9153) [facility] [address] POCT-GLUCOSE [id number] 08:07:00 Test Item Value Reference Range Comments POC-GLUCOSE METER (BEAKER) 226 mg/dL 70-110 TESTED AT [address] (test jxxp=2463) [facility] [address] BASIC METABOLIC [id number] 06:16:00 Test Item Value Reference Range Comments SODIUM (BEAKER) (test 141 meq/L 136-145 arfq=454) POTASSIUM (BEAKER) (test 4.3 meq/L 3.5-5.1 dnaa=771) CHLORIDE (BEAKER) (test 102 meq/L 98-107 bryi=110) CO2 (BEAKER) (test 28 meq/L 22-29 vldt=428) BLOOD UREA NITROGEN 20 mg/dL 7-21 (BEAKER) (test cbnf=476) CREATININE (BEAKER) (test 4.68 mg/dL 0.57-1.25 gved=473) GLUCOSE RANDOM (BEAKER) 181 mg/dL 70-105 (test anky=027) CALCIUM (BEAKER) (test 9.5 mg/dL 8.4-10.2 ikhn=324) EGFR (BEAKER) (test 13 mL/min/1.73 sq m ESTIMATED GFR IS NOT thuz=8371) ACCURATE CREATININE CLEARANCE IN PREDICTING GLOMERULAR FILTRATION RATE. ESTIMATED GFR IS NOT APPLICABLE FOR DIALYSIS PATIENTS. VANCOMYCIN LEVEL, [id number] 06:16:00 Test Item Value Reference Range Comments VANCOMYCIN RANDOM (BEAKER) (test zjoe=915) 15.3 ug/mL Reference Range: No NormalsCBC W/PLT COUNT & AUTO [id number] 06: 16:00 Test Item Value Reference Range Comments WHITE BLOOD CELL COUNT (BEAKER) (test btda=907) 9.2 K/ L 3.5-10.5 RED BLOOD CELL COUNT (BEAKER) (test evhy=612) 2.82 M/ L 4.63-6.08 HEMOGLOBIN (BEAKER) (test byvl=546) 8.7 GM/DL 13.7-17.5 HEMATOCRIT (BEAKER) (test ujed=271) 27.9 % 40.1-51.0 MEAN CORPUSCULAR VOLUME (BEAKER) (test azqm=010) 98.9 fL 79.0-92.2 MEAN CORPUSCULAR HEMOGLOBIN (BEAKER) (test 30.9 pg 25.7-32.2 jlso=119) MEAN CORPUSCULAR HEMOGLOBIN CONC (BEAKER) (test 31.2 GM/DL 32.3-36.5 bfzy=130) RED CELL DISTRIBUTION WIDTH (BEAKER) (test 15.7 % 11.6-14.4 jmgh=851) PLATELET COUNT (BEAKER) (test ukae=682) 315 K/CU MM 150-450 MEAN PLATELET VOLUME (BEAKER) (test losk=528) 12.5 fL 9.4-12.4 NUCLEATED RED BLOOD CELLS (BEAKER) (test 0 /100 WBC 0-0 pjpp=357) NEUTROPHILS RELATIVE PERCENT (BEAKER) (test 75 % vfcd=759) LYMPHOCYTES RELATIVE PERCENT (BEAKER) (test 11 % mduy=687) MONOCYTES RELATIVE PERCENT (BEAKER) (test 11 % lydq=277) EOSINOPHILS RELATIVE PERCENT (BEAKER) (test 1 % yotj=351) BASOPHILS RELATIVE PERCENT (BEAKER) (test 1 % woau=019) NEUTROPHILS ABSOLUTE COUNT (BEAKER) (test 6.89 K/ L 1.78-5.38 kspf=237) LYMPHOCYTES ABSOLUTE COUNT (BEAKER) (test 0.98 K/ L 1.32-3.57 pwou=914) MONOCYTES ABSOLUTE COUNT (BEAKER) (test 1.00 K/ L 0.30-0.82 rcug=835) EOSINOPHILS ABSOLUTE COUNT (BEAKER) (test 0.12 K/ L 0.04-0.54 rvvl=526) BASOPHILS ABSOLUTE COUNT (BEAKER) (test 0.06 K/ L 0.01-0.08 plwk=303) IMMATURE GRANULOCYTES-RELATIVE PERCENT (BEAKER) 1 % 0-1 (test elzh=4697) [id number] 06:07:00 Test Item Value Reference Range Comments MAGNESIUM (BEAKER) (test dkbc=594) 2.0 mg/dL 1.6-2.6 POCT-GLUCOSE [id number] 21:22:00 Test Item Value Reference Range Comments POC-GLUCOSE METER (BEAKER) 276 mg/dL 70-[address] [facility] [address] [facility] (test blzm=4593) [facility] [address] BODY FLUID CELL COUNT WITH [id number] 19:44:00 Test Item Value Reference Range Comments APPEARANCE FLUID (BEAKER) (test tvyz=002) Slightly Hazy Clear COLOR FLUID (BEAKER) (test kzhz=867) Yellow Colorless, Straw RBC FLUID (BEAKER) (test kgxo=986) 15 /cu mm <=1 ADJUSTED WBC FLUID (BEAKER) (test hrbg=0336) 57 /cu mm <=5 LINING CELLS (BEAKER) (test tjrm=4555) 6 /cu mm <=1 NEUTROPHILS FLUID (BEAKER) (test yiny=5893) 35 % LYMPHS FLUID (BEAKER) (test udhd=107) 29 % MONO/MACROPHAGE FLUID (BEAKER) (test 36 % xbhq=633) EOSINOPHILS FLUID (BEAKER) (test ifpu=371) 0 % BASO FLUID (BEAKER) (test nbuw=951) 0 % CONTAINER BODY FLUID (BEAKER) (test EDTA Tube nvyz=0445) BODY FLUID CELL COUNT WITH [id number] 19:38:00 Test Item Value Reference Range Comments APPEARANCE FLUID (BEAKER) (test dzfx=542) Clear Clear COLOR FLUID (BEAKER) (test xemt=259) Straw Colorless, Straw RBC FLUID (BEAKER) (test eabn=920) 28 /cu mm <=1 ADJUSTED WBC FLUID (BEAKER) (test buzt=1128) 54 /cu mm <=5 LINING CELLS (BEAKER) (test fwdm=7851) 4 /cu mm <=1 NEUTROPHILS FLUID (BEAKER) (test qujr=3705) 23 % LYMPHS FLUID (BEAKER) (test nzea=443) 33 % MONO/MACROPHAGE FLUID (BEAKER) (test pyna=879) 44 % EOSINOPHILS FLUID (BEAKER) (test idsa=104) 0 % BASO FLUID (BEAKER) (test tquz=631) 0 % CONTAINER BODY FLUID (BEAKER) (test riyc=4465) EDTA Tube LACTATE DEHYDROGENASE (LDH), BODY [id number] 19:16:00 Test Item Value Reference Range Comments LACTATE DEHYDROGENASE FLUID (BEAKER) 163 U/L Light's criteria identifies (test bfal=062) effusions if one or more are pre Absence of reference range indicates that normals have not been defined.Assay performance has not been validated for this type of specimen.PROTEIN, BODY [id number] 19:16:00 Test Item Value Reference Range Comments PROTEIN FLUID (BEAKER) (test 4.2 g/dL Light's criteria identifies sqmi=794) effusions if one or more are pre Absence of reference range indicates that normals have not been defined.Assay performance has not been validated for this type of specimen.RAD, CHEST, PA OR AP, 1 [id number] 19:12:00Reason for exam:->s/p left thoracentesisFINAL REPORT History: Status post left thoracentesis. Comparison: Same [id number] hours Findings: A single view of the [...] Alba MDReport Verified Date/Time: 19:12:04 Reading Location: [address] Reading Room PH, BODY [id number] 19:06:00 Test Item Value Reference Range Comments PH, BODY FLUID (BEAKER) (test eiqk=7786) 8.00 ALBUMIN, BODY [id number] 18:55:00 Test Item Value Reference Range Comments ALBUMIN FLUID (BEAKER) (test camc=525) 2.9 gm/dL Reference Range: No Normals Assay performance has not been validated for this type of specimen.AMYLASE, BODY [id number] 18:55:00 Test Item Value Reference Range Comments AMYLASE FLUID (BEAKER) (test mwiy=561) 18 U/L 30-110 Absence of reference range indicates that normals have not been defined.Assay performance has not been validated for this type of specimen.LACTATE DEHYDROGENASE (LDH), BODY [id number] 18:55:00 Test Item Value Reference Range Comments LACTATE DEHYDROGENASE FLUID (BEAKER) 161 U/L Light's criteria identifies (test fpru=865) effusions if one or more are pre Absence of reference range indicates that normals have not been defined.Assay performance has not been validated for this type of specimen.PROTEIN, BODY [id number] 18:55:00 Test Item Value Reference Range Comments PROTEIN FLUID (BEAKER) (test 4.3 g/dL Light's criteria identifies tiza=890) effusions if one or more are pre Absence of reference range indicates that normals have not been defined.Assay performance has not been validated for this type of specimen.TRIGLYCERIDES, BODY [id number] 18:55:00 Test Item Value Reference Range Comments TRIGLYCERIDES FLUID (BEAKER) (test ujmu=231) 49 mg/dL Reference Range: No Normals Assay performance has not been validated for this type of specimen.CREATININE, BODY [id number] 18:55:00 Test Item Value Reference Range Comments CREATININE FLUID (BEAKER) (test yrad=170) 3.31 mg/dL Reference Range: No Normals Assay performance has not been validated for this type of specimen.GLUCOSE, BODY [id number] 18:55:00 Test Item Value Reference Range Comments GLUCOSE, BODY FLUID (BEAKER) (test vqoa=8548) 204 mg/dL 70-110 Absence of reference range indicates that normals have not been defined.Assay performance has not been validated for this type of specimen.SPECIFIC GRAVITY, BODY [id number] 18:49:00 Test Item Value Reference Range Comments SP GRAVITY MISCELLANEOUS (BEAKER) (test fwlj=552) 1.030 Reference Range: No NormalsU/S, [id number] 18:35:00Laterality?-> LeftReason for exam:->pleural effusionFINAL REPORT Ultrasound Guided left Thoracentesis: Modality: Ultrasound Approach: Left Posterior Lateral Intercostal Sedation: None Findings: Informed consent was obtained. After an appropriate site for drainage was found, the skin was prepped and draped, and local anesthesia was given. A 4 Uzbek catheter was inserted into the left pleural space under ultrasound guidance,and approximately 1000 cc of yellow pleural fluid was aspirated. The catheter was removed. No immediate complications were noted. A postprocedure chest radiograph revealed no evidence of pneumothorax. Impression: 1. Uncomplicated ultrasound-guided left thoracentesis. Signed: Perfecto Arzate Verified Date /Time: 01/19/2019 18:35:33 Reading Location: [address] Transitional Reading Room POCT-GLUCOSE [id number] 18:27:00 Test Item Value Reference Range Comments POC-GLUCOSE METER (BEAKER) 245 mg/dL 70-110 TESTED AT [address] (test xukl=0950) [place] [address] POCT-GLUCOSE [id number] 13:05:00 Test Item Value Reference Range Comments POC-GLUCOSE METER (BEAKER) 169 mg/dL 70-110 TESTED AT [address] (test vode=0258) [place] [address] RAD, CHEST, 1 VIEW, NON [id number] 10:50:00Reason for exam:->s/p pericardial drainShould this be [...] left arm soft tissues. Signed: Perfecto Arzate MDReport Verified Date/Time: 01/19/2019 10:50:13 Reading Location: [address] Transitional Reading Room VANCOMYCIN LEVEL, [id number] 09:24:00 Test Item Value Reference Range Comments VANCOMYCIN RANDOM (BEAKER) (test uxfh=470) 31.8 ug/mL Reference Range: No NormalsBASIC METABOLIC [id number] 05:55:00 Test Item Value Reference Range Comments SODIUM (BEAKER) (test 138 meq/L 136-145 feni=567) POTASSIUM (BEAKER) (test 3.9 meq/L 3.5-5.1 mlxb=536) CHLORIDE (BEAKER) (test 101 meq/L 98-107 uhcb=927) CO2 (BEAKER) (test 26 meq/L 22-29 vhap=771) BLOOD UREA NITROGEN 19 mg/dL 7-21 (BEAKER) (test fstg=871) CREATININE (BEAKER) (test 4.62 mg/dL 0.57-1.25 ucic=821) GLUCOSE RANDOM (BEAKER) 149 mg/dL 70-105 (test mmfw=245) CALCIUM (BEAKER) (test 9.3 mg/dL 8.4-10.2 ppnf=520) EGFR (BEAKER) (test 13 mL/min/1.73 sq m ESTIMATED GFR IS NOT pzdj=2103) ACCURATE CREATININE CLEARANCE IN PREDICTING GLOMERULAR FILTRATION RATE. ESTIMATED GFR IS NOT APPLICABLE FOR DIALYSIS PATIENTS. CBC W/PLT COUNT & AUTO [id number] 05:07:00 Test Item Value Reference Range Comments WHITE BLOOD CELL COUNT (BEAKER) (test mlso=773) 9.1 K/ L 3.5-10.5 RED BLOOD CELL COUNT (BEAKER) (test lkdt=849) 2.74 M/ L 4.63-6.08 HEMOGLOBIN (BEAKER) (test rilo=902) 8.6 GM/DL 13.7-17.5 HEMATOCRIT (BEAKER) (test nwzs=441) 26.6 % 40.1-51.0 MEAN CORPUSCULAR VOLUME (BEAKER) (test pagv=338) 97.1 fL 79.0-92.2 MEAN CORPUSCULAR HEMOGLOBIN (BEAKER) (test 31.4 pg 25.7-32.2 xegb=990) MEAN CORPUSCULAR HEMOGLOBIN CONC (BEAKER) (test 32.3 GM/DL 32.3-36.5 zedm=306) RED CELL DISTRIBUTION WIDTH (BEAKER) (test 15.4 % 11.6-14.4 btvw=996) PLATELET COUNT (BEAKER) (test kbdo=174) 283 K/CU MM 150-450 MEAN PLATELET VOLUME (BEAKER) (test wjxa=789) 12.2 fL 9.4-12.4 NUCLEATED RED BLOOD CELLS (BEAKER) (test 0 /100 WBC 0-0 vxxo=413) NEUTROPHILS RELATIVE PERCENT (BEAKER) (test 71 % pfrz=745) LYMPHOCYTES RELATIVE PERCENT (BEAKER) (test 14 % xxwe=976) MONOCYTES RELATIVE PERCENT (BEAKER) (test 12 % dgjj=488) EOSINOPHILS RELATIVE PERCENT (BEAKER) (test 1 % qaor=903) BASOPHILS RELATIVE PERCENT (BEAKER) (test 1 % neto=589) NEUTROPHILS ABSOLUTE COUNT (BEAKER) (test 6.48 K/ L 1.78-5.38 jgww=060) LYMPHOCYTES ABSOLUTE COUNT (BEAKER) (test 1.25 K/ L 1.32-3.57 gekv=280) MONOCYTES ABSOLUTE COUNT (BEAKER) (test 1.07 K/ L 0.30-0.82 uiay=860) EOSINOPHILS ABSOLUTE COUNT (BEAKER) (test 0.06 K/ L 0.04-0.54 nkdj=517) BASOPHILS ABSOLUTE COUNT (BEAKER) (test 0.07 K/ L 0.01-0.08 uith=609) IMMATURE GRANULOCYTES-RELATIVE PERCENT (BEAKER) 2 % 0-1 (test ohbd=2777) POCT-GLUCOSE [id number] 00:04:00 Test Item Value Reference Range Comments POC-GLUCOSE METER (BEAKER) 134 mg/dL 70-110 TESTED AT [address] (test oiww=5338) [place] [address] POCT-GLUCOSE [id number] 21:27:00 Test Item Value Reference Range Comments POC-GLUCOSE METER (BEAKER) 227 mg/dL 70-110 TESTED AT [address] (test jhdk=1904) [place] [address] BODY FLUID CELL COUNT WITH [id number] 19:53:00 Test Item Value Reference Range Comments APPEARANCE FLUID (BEAKER) (test mhym=842) Bloody Clear COLOR FLUID (BEAKER) (test hxrk=673) Red Colorless, Straw RBC FLUID (BEAKER) (test vetn=423) 798630 /cu mm <=1 ADJUSTED WBC FLUID (BEAKER) (test vepo=5698) 3915 /cu mm <=5 LINING CELLS (BEAKER) (test eixy=2052) 0 /cu mm <=1 NEUTROPHILS FLUID (BEAKER) (test imza=5138) 70 % LYMPHS FLUID (BEAKER) (test mytn=711) 15 % MONO/MACROPHAGE FLUID (BEAKER) (test 14 % mave=513) EOSINOPHILS FLUID (BEAKER) (test jghw=786) 1 % BASO FLUID (BEAKER) (test zwpr=288) 0 % CONTAINER BODY FLUID (BEAKER) (test EDTA Tube coci=7401) ALBUMIN, BODY [id number] 19:29:00 Test Item Value Reference Range Comments ALBUMIN FLUID (BEAKER) (test bmmv=498) 3.3 gm/dL Reference Range: No Normals Assay performance has not been validated for this type of specimen.[id number] 09:21:00 Test Item Value Reference Range Comments PROCALCITONIN (BEAKER) (test kjyk=1461) 0.53 ng/mL <0.05 SEPSIS RISK (ng/mL)Low: 0.05-0.50Intermediate: 0.51-2.00High: & gt;=2.01TROPONIN [id number] 08:35:00 Test Item Value Reference Range Comments TROPONIN I (BEAKER) (test vdeo=082) 0.12 ng/mL 0.00-0.03 Troponin I (TnI) levels [...] NATRIURETIC PEPTIDE (BEAKER) (test 198 pg/mL 0-100 jevj=377) BASIC METABOLIC [id number] 08:30:00 Test Item Value Reference Range Comments SODIUM (BEAKER) (test 137 meq/L 136-145 ljqo=221) POTASSIUM (BEAKER) (test 3.6 meq/L 3.5-5.1 gaol=957) CHLORIDE (BEAKER) (test 99 meq/L 98-107 qilu=026) CO2 (BEAKER) (test 25 meq/L 22-29 dtet=218) BLOOD UREA NITROGEN 21 mg/dL 7-21 (BEAKER) (test lzbn=098) CREATININE (BEAKER) (test 5.31 mg/dL 0.57-1.25 bogf=123) GLUCOSE RANDOM (BEAKER) 140 mg/dL 70-105 (test hcir=151) CALCIUM (BEAKER) (test 9.5 mg/dL 8.4-10.2 bnhh=851) EGFR (BEAKER) (test 11 mL/min/1.73 sq m ESTIMATED GFR IS NOT dsvf=9578) ACCURATE CREATININE CLEARANCE IN PREDICTING GLOMERULAR FILTRATION RATE. ESTIMATED GFR IS NOT APPLICABLE FOR DIALYSIS PATIENTS. HEPATIC FUNCTION [id number] 08:28:00 Test Item Value Reference Range Comments TOTAL PROTEIN (BEAKER) (test aduf=368) 6.9 gm/dL 6.0-8.3 ALBUMIN (BEAKER) (test qtbr=0614) 3.9 g/dL 3.5-5.0 BILIRUBIN TOTAL (BEAKER) (test vooi=918) 0.6 mg/dL 0.2-1.2 BILIRUBIN DIRECT (BEAKER) (test jrez=316) 0.2 mg/dL 0.1-0.5 ALKALINE PHOSPHATASE (BEAKER) (test pdoz=240) 89 U/L 40-150 AST (SGOT) (BEAKER) (test jzfn=994) 10 U/L 5-34 ALT (SGPT) (BEAKER) (test xfwn=271) 14 U/L 6-55 PROTHROMBIN [id number] 08:25:00 Test Item Value Reference Range Comments PROTIME (BEAKER) (test uhld=649) 16.7 seconds 11.7-14.7 INR (BEAKER) (test tqpu=640) 1.4 <=5.9 RECOMMENDED COUMADIN/WARFARIN INR THERAPY RANGESSTANDARD DOSE: 2.0 - 3.0 Includes: PROPHYLAXIS forvenous thrombosis, systemic embolization; TREATMENT for venous thrombosis and/or pulmonary embolus.HIGH RISK: Target INR is 2.5-3.5 for patients with mechanical heart valves.RAD, CHEST, 1 VIEW, NON [id number] 08:09:00Reason for exam:->feverShould this be performed [...] Chan Verified Date/Time: 01/18/2019 08:09:08 Reading Location: [facility] Radiology Reading Room CBC W/PLT COUNT & AUTO [id number] 08:08:00 Test Item Value Reference Range Comments WHITE BLOOD CELL COUNT (BEAKER) (test xlmw=617) 11.0 K/ L 3.5-10.5 RED BLOOD CELL COUNT (BEAKER) (test phse=863) 2.51 M/ L 4.63-6.08 HEMOGLOBIN (BEAKER) (test wgqg=202) 7.8 GM/DL 13.7-17.5 HEMATOCRIT (BEAKER) (test mual=883) 25.0 % 40.1-51.0 MEAN CORPUSCULAR VOLUME (BEAKER) (test owgi=963) 99.6 fL 79.0-92.2 MEAN CORPUSCULAR HEMOGLOBIN (BEAKER) (test 31.1 pg 25.7-32.2 qjat=134) MEAN CORPUSCULAR HEMOGLOBIN CONC (BEAKER) (test 31.2 GM/DL 32.3-36.5 xdab=937) RED CELL DISTRIBUTION WIDTH (BEAKER) (test 15.2 % 11.6-14.4 wnzr=159) PLATELET COUNT (BEAKER) (test fhmj=802) 294 K/CU MM 150-450 MEAN PLATELET VOLUME (BEAKER) (test cwfu=665) 11.7 fL 9.4-12.4 NUCLEATED RED BLOOD CELLS (BEAKER) (test 0 /100 WBC 0-0 rozn=678) NEUTROPHILS RELATIVE PERCENT (BEAKER) (test 71 % aogo=965) LYMPHOCYTES RELATIVE PERCENT (BEAKER) (test 15 % adtx=074) MONOCYTES RELATIVE PERCENT (BEAKER) (test 11 % gfdg=013) EOSINOPHILS RELATIVE PERCENT (BEAKER) (test 1 % bpoi=616) BASOPHILS RELATIVE PERCENT (BEAKER) (test 1 % erjo=784) NEUTROPHILS ABSOLUTE COUNT (BEAKER) (test 7.74 K/ L 1.78-5.38 meba=795) LYMPHOCYTES ABSOLUTE COUNT (BEAKER) (test 1.67 K/ L 1.32-3.57 bpmi=124) MONOCYTES ABSOLUTE COUNT (BEAKER) (test 1.19 K/ L 0.30-0.82 qged=962) EOSINOPHILS ABSOLUTE COUNT (BEAKER) (test 0.09 K/ L 0.04-0.54 bsul=801) BASOPHILS ABSOLUTE COUNT (BEAKER) (test 0.09 K/ L 0.01-0.08 pbue=250) IMMATURE GRANULOCYTES-RELATIVE PERCENT (BEAKER) 2 % 0-1 (test gwkq=2711) POCT-LACTIC ACID, [id number] 08:06:00 Test Item Value Reference Range Comments POC-LACTIC ACID, VENOUS 1.0 mmol/L 0.9-1.7 TESTED AT [address] (BEAKER) (test qace=9682) [facility] [address] BLOOD [id number] 08:00:00 Test Item Value Reference Range Comments CULTURE (BEAKER) (test isuz=8452) No growth in 5 days BLOOD [id number] 08:00:00 Test Item Value Reference Range Comments CULTURE (BEAKER) (test pffa=9846) No growth in 5 days HEMOGLOBIN [id number] 20:14:00 Test Item Value Reference Range Comments HEMOGLOBIN A1C (BEAKER) (test kcwd=492) 6.8 % 4.3-6.1 RAD, CHEST, 1 VIEW, NON [id number] 16:01:00Reason for exam:->respiratory insufficiencyShould this be performed [...] MDReport Verified Date/Time: 01/08/2019 16:01:59 Reading Location: [facility] C013W Consult Reading Room Electronically signedby: EDD RUIZ M.D. on 01/08/2019 04:01 PMPOCT- GLUCOSE [id number] 12:01:00 Test Item Value Reference Range Comments POC-GLUCOSE METER (BEAKER) 178 mg/dL 70-[address] [facility] [address] [place] [address] (test tnfp=2423) [facility] [address] BASIC METABOLIC [id number] 06:13:00 Test Item Value Reference Range Comments SODIUM (BEAKER) (test 138 meq/L 136-145 mvvu=065) POTASSIUM (BEAKER) (test 4.6 meq/L 3.5-5.1 jksk=795) CHLORIDE (BEAKER) (test 101 meq/L 98-107 daqw=553) CO2 (BEAKER) (test 23 meq/L 22-29 eolp=777) BLOOD UREA NITROGEN 36 mg/dL 7-21 (BEAKER) (test xyfp=691) CREATININE (BEAKER) (test 6.83 mg/dL 0.57-1.25 nbhn=442) GLUCOSE RANDOM (BEAKER) 166 mg/dL 70-105 (test vtug=920) CALCIUM (BEAKER) (test 9.3 mg/dL 8.4-10.2 tjwn=577) EGFR (BEAKER) (test 8 mL/min/1.73 sq m ESTIMATED GFR IS NOT rlfg=0858) ACCURATE CREATININE CLEARANCE IN PREDICTING GLOMERULAR FILTRATION RATE. ESTIMATED GFR IS NOT APPLICABLE FOR DIALYSIS PATIENTS. CBC (HEMOGRAM ONLY)2019-01-08 05:22:00 Test Item Value Reference Range Comments WHITE BLOOD CELL COUNT (BEAKER) (test vnco=604) 8.7 K/ L 3.5-10.5 RED BLOOD CELL COUNT (BEAKER) (test ywqo=065) 2.86 M/ L 4.63-6.08 HEMOGLOBIN (BEAKER) (test muxi=522) 9.0 GM/DL 13.7-17.5 HEMATOCRIT (BEAKER) (test ftaj=625) 29.4 % 40.1-51.0 MEAN CORPUSCULAR VOLUME (BEAKER) (test kqgd=906) 102.8 fL 79.0-92.2 MEAN CORPUSCULAR HEMOGLOBIN (BEAKER) (test 31.5 pg 25.7-32.2 gvsf=218) MEAN CORPUSCULAR HEMOGLOBIN CONC (BEAKER) (test 30.6 GM/DL 32.3-36.5 ghob=961) RED CELL DISTRIBUTION WIDTH (BEAKER) (test 14.5 % 11.6-14.4 eije=281) PLATELET COUNT (BEAKER) (test oudx=238) 256 K/CU MM 150-450 MEAN PLATELET VOLUME (BEAKER) (test hbaf=781) 11.9 fL 9.4-12.4 NUCLEATED RED BLOOD CELLS (BEAKER) (test 0 /100 WBC 0-0 jmee=121) POCT-GLUCOSE [id number] 21:50:00 Test Item Value Reference Range Comments POC-GLUCOSE METER (BEAKER) 211 mg/dL 70-110 TESTED AT [address] (test himt=3390) [place] [address] POCT-GLUCOSE [id number] 18:22:00 Test Item Value Reference Range Comments POC-GLUCOSE METER (BEAKER) 118 mg/dL 70-110 TESTED AT [address] (test csyv=5551) [place] [address] POCT-GLUCOSE [id number] 12:04:00 Test Item Value Reference Range Comments POC-GLUCOSE METER (BEAKER) 158 mg/dL 70-110 TESTED AT [address] (test cwvs=6672) [place] [address] RAD, CHEST, 1 VIEW, NON [id number] 10:43:00Reason for exam:->respiratory insufficiencyShould this be performed at the bedside?->YesFINAL REPORT INDICATION: respiratory insufficiency COMPARISON:January 06 TECHNIQUE: Chest radiograph, single view, portable technique. FINDINGS / IMPRESSION: Enlarged heart shadow andnonspecific left retrocardiac opacity again demonstrated. Pulmonary veins are prominent but no overtpulmonary edema. No pneumothorax. Osseous structures unremarkable. Signed: Kem Turk MDReportVerified Date/Time: 01/07/2019 10:43:17 Reading Location: [facility] Radiology Reading Room POCT-GLUCOSE [id number] 08:09:00 Test Item Value Reference Range Comments POC-GLUCOSE METER (BEAKER) 145 mg/dL 70-110 TESTED AT [address] (test czgr=2110) [facility] [address] POCT-GLUCOSE [id number] 21:32:00 Test Item Value Reference Range Comments POC-GLUCOSE METER (BEAKER) 274 mg/dL 70-110 TESTED AT [address] (test daad=1110) [facility] [address] POCT-GLUCOSE [id number] 17:20:00 Test Item Value Reference Range Comments POC-GLUCOSE METER (BEAKER) 215 mg/dL 70-110 TESTED AT [address] (test fifu=4418) [facility] [address] POCT-GLUCOSE [id number] 14:33:00 Test Item Value Reference Range Comments POC-GLUCOSE METER (BEAKER) 200 mg/dL 70-110 TESTED AT [address] (test efpj=2199) [facility] [address] POCT-GLUCOSE [id number] 11:13:00 Test Item Value Reference Range Comments POC-GLUCOSE METER (BEAKER) 289 mg/dL 70-110 TESTED AT [address] (test vuax=1403) [facility] [address] POCT-GLUCOSE [id number] 08:08:00 Test Item Value Reference Range Comments POC-GLUCOSE METER (BEAKER) 180 mg/dL 70-110 TESTED AT [address] (test zhfi=6025) [facility] [address] RAD, CHEST, 1 VIEW, NON [id number] 07:40:00Reason for exam:->respiratory insufficiencyShould this be performed at the bedside?->YesFINAL REPORT Chest dated 01/06/2019 COMPARISON: 01/05/2019 Clinical Information:respiratory insufficiency Comment: Heart is enlarged. Pulmonary vasculature is indistinct. Interstitial disease is seen bilaterally suggestive of vascular congestion unchanged from prior study. There is small left pleural effusion. Signed: Yuridia Wallace MDReport Verified Date/Time: 01/06/2019 07:40:30 Reading Location: [address] Consult Reading Room Electronically signed by: YURIDIA WALLACE M.D.on 01/06/2019 07:40 AMBASIC METABOLIC [id number] 07: 18:00 Test Item Value Reference Range Comments SODIUM (BEAKER) (test 136 meq/L 136-145 lpih=766) POTASSIUM (BEAKER) (test 5.2 meq/L 3.5-5.1 oijw=732) CHLORIDE (BEAKER) (test 100 meq/L 98-107 edge=341) CO2 (BEAKER) (test 21 meq/L 22-29 xdod=114) BLOOD UREA NITROGEN 49 mg/dL 7-21 (BEAKER) (test ljuk=656) CREATININE (BEAKER) (test 8.64 mg/dL 0.57-1.25 llnc=761) GLUCOSE RANDOM (BEAKER) 146 mg/dL 70-105 (test hmhs=622) CALCIUM (BEAKER) (test 9.6 mg/dL 8.4-10.2 thvn=728) EGFR (BEAKER) (test 6 mL/min/1.73 sq m ESTIMATED GFR IS NOT cueu=1758) ACCURATE CREATININE CLEARANCE IN PREDICTING GLOMERULAR FILTRATION RATE. ESTIMATED GFR IS NOT APPLICABLE FOR DIALYSIS PATIENTS. VANCOMYCIN LEVEL, [id number] 07:13:00 Test Item Value Reference Range Comments VANCOMYCIN RANDOM (BEAKER) (test kfnf=444) 17.4 ug/mL Reference Range: No [id number] 07:09:00 Test Item Value Reference Range Comments MAGNESIUM (BEAKER) (test txod=757) 2.1 mg/dL 1.6-2.6 POCT-GLUCOSE [id number] 21:46:00 Test Item Value Reference Range Comments POC-GLUCOSE METER (BEAKER) 173 mg/dL 70-[address] [facility] [address] [facility] (test mfsx=9088) [facility] [address] POCT-GLUCOSE [id number] 16:20:00 Test Item Value Reference Range Comments POC-GLUCOSE METER (BEAKER) 172 mg/dL 70-[address] [facility] [address] [facility] (test wyhf=1162) [facility] [address] POCT-GLUCOSE [id number] 12:21:00 Test Item Value Reference Range Comments POC-GLUCOSE METER (BEAKER) 260 mg/dL 70-110 TESTED AT [address] (test wqvp=4640) [facility] [address] POCT-GLUCOSE [id number] 08:37:00 Test Item Value Reference Range Comments POC-GLUCOSE METER (BEAKER) 153 mg/dL 70-110 TESTED AT [address] (test rvql=9001) [facility] [address] RAD, CHEST, 1 VIEW, NON [id number] 07:04:00Reason for exam:->respiratory insufficiencyShould this be performed at the bedside?->YesFINAL REPORT RAD, CHEST, 1 VIEW, NON DEPT INDICATION: respiratory insufficiency COMPARISON: Prior day's exam FINDINGS: Portable frontal view of the chest. IMPRESSION: Support Lines: External leads Lungs and pleura: Bibasilar subsegmental atelectasis No pneumothorax.Heart and mediastinum: Stable contours. Additional findings: None. Signed: Beulah Last Verified Date/Time: 01/05/2019 07:04:08 Reading Location: [address] Neuro Reading Room Electronically signed by: BEULAH LAST MD on 2018 07:04 AMBASIC METABOLIC [id number] 05:47:00 Test Item Value Reference Range Comments SODIUM (BEAKER) (test 133 meq/L 136-145 sqbb=318) POTASSIUM (BEAKER) (test 5.1 meq/L 3.5-5.1 wvfz=797) CHLORIDE (BEAKER) (test 97 meq/L 98-107 xjxr=301) CO2 (BEAKER) (test 25 meq/L 22-29 ehnv=515) BLOOD UREA NITROGEN 33 mg/dL 7-21 (BEAKER) (test sgbn=192) CREATININE (BEAKER) (test 6.56 mg/dL 0.57-1.25 ytfj=601) GLUCOSE RANDOM (BEAKER) 156 mg/dL 70-105 (test lpbd=499) CALCIUM (BEAKER) (test 9.6 mg/dL 8.4-10.2 nlxw=615) EGFR (BEAKER) (test 9 mL/min/1.73 sq m ESTIMATED GFR IS NOT dgwy=8212) ACCURATE CREATININE CLEARANCE IN PREDICTING GLOMERULAR FILTRATION RATE. ESTIMATED GFR IS NOT APPLICABLE FOR DIALYSIS PATIENTS. [id number] 05:36:00 Test Item Value Reference Range Comments MAGNESIUM (BEAKER) (test eymy=456) 1.9 mg/dL 1.6-2.6 CBC W/PLT COUNT & AUTO [id number] 05:18:00 Test Item Value Reference Range Comments WHITE BLOOD CELL COUNT (BEAKER) (test ntrw=068) 10.5 K/ L 3.5-10.5 RED BLOOD CELL COUNT (BEAKER) (test lbvz=571) 2.73 M/ L 4.63-6.08 HEMOGLOBIN (BEAKER) (test axmz=140) 8.6 GM/DL 13.7-17.5 HEMATOCRIT (BEAKER) (test vgwq=273) 27.1 % 40.1-51.0 MEAN CORPUSCULAR VOLUME (BEAKER) (test jkll=535) 99.3 fL 79.0-92.2 MEAN CORPUSCULAR HEMOGLOBIN (BEAKER) (test 31.5 pg 25.7-32.2 uyqc=796) MEAN CORPUSCULAR HEMOGLOBIN CONC (BEAKER) (test 31.7 GM/DL 32.3-36.5 tnnx=217) RED CELL DISTRIBUTION WIDTH (BEAKER) (test 14.4 % 11.6-14.4 dexa=306) PLATELET COUNT (BEAKER) (test hdju=808) 154 K/CU MM 150-450 MEAN PLATELET VOLUME (BEAKER) (test xucs=559) 12.5 fL 9.4-12.4 NUCLEATED RED BLOOD CELLS (BEAKER) (test 0 /100 WBC 0-0 velt=243) NEUTROPHILS RELATIVE PERCENT (BEAKER) (test 78 % pqjd=980) LYMPHOCYTES RELATIVE PERCENT (BEAKER) (test 11 % ulkt=828) MONOCYTES RELATIVE PERCENT (BEAKER) (test 10 % fcsd=412) EOSINOPHILS RELATIVE PERCENT (BEAKER) (test 0 % ttza=702) BASOPHILS RELATIVE PERCENT (BEAKER) (test 1 % ibfy=100) NEUTROPHILS ABSOLUTE COUNT (BEAKER) (test 8.18 K/ L 1.78-5.38 jsjn=462) LYMPHOCYTES ABSOLUTE COUNT (BEAKER) (test 1.11 K/ L 1.32-3.57 hwic=059) MONOCYTES ABSOLUTE COUNT (BEAKER) (test 1.04 K/ L 0.30-0.82 cfdv=493) EOSINOPHILS ABSOLUTE COUNT (BEAKER) (test 0.03 K/ L 0.04-0.54 vqan=971) BASOPHILS ABSOLUTE COUNT (BEAKER) (test 0.05 K/ L 0.01-0.08 hmeq=687) IMMATURE GRANULOCYTES-RELATIVE PERCENT (BEAKER) 1 % 0-1 (test vlcc=5615) BLOOD GAS, [id number] 05:12:00 Test Item Value Reference Range Comments PH ARTERIAL (BEAKER) (test pgnj=957) 7.44 7.35-7.45 PCO2 ARTERIAL (BEAKER) (test lccl=365) 41 mmHg 35-45 PO2 ARTERIAL (BEAKER) (test fsdk=956) 118 mmHg 80-90 O2 SATURATION ARTERIAL (BEAKER) (test veqx=692) 98.0 % 96.0-97.0 HCO3 ARTERIAL (BEAKER) (test itxi=867) 26 mmol/L 21-29 BASE EXCESS ARTERIAL (BEAKER) (test cumw=775) 2.7 mmol/L -2.0-3.0 PATIENT TEMPERATURE (BEAKER) (test xqxk=1563) 39.5 C FIO2 (BEAKER) (test hkjj=9405) 21.0 % LACTIC ACID, [id number] 05:00:00 Test Item Value Reference Range Comments LACTATE BLOOD ARTERIAL (2) (BEAKER) (test 1.0 mmol/L 0.5-2.2 qrmt=3025) BASIC METABOLIC [id number] 23:29:00 Test Item Value Reference Range Comments SODIUM (BEAKER) (test 135 meq/L 136-145 dbtj=915) POTASSIUM (BEAKER) (test 4.9 meq/L 3.5-5.1 eaox=552) CHLORIDE (BEAKER) (test 98 meq/L 98-107 tpcc=689) CO2 (BEAKER) (test 26 meq/L 22-29 hgud=282) BLOOD UREA NITROGEN 29 mg/dL 7-21 (BEAKER) (test etiq=084) CREATININE (BEAKER) (test 6.08 mg/dL 0.57-1.25 kmds=643) GLUCOSE RANDOM (BEAKER) 192 mg/dL 70-105 (test dszq=476) CALCIUM (BEAKER) (test 9.6 mg/dL 8.4-10.2 kgsm=620) EGFR (BEAKER) (test 9 mL/min/1.73 sq m ESTIMATED GFR IS NOT qkct=9261) ACCURATE CREATININE CLEARANCE IN PREDICTING GLOMERULAR FILTRATION RATE. ESTIMATED GFR IS NOT APPLICABLE FOR DIALYSIS PATIENTS. [id number] 23:17:00 Test Item Value Reference Range Comments MAGNESIUM (BEAKER) (test miaf=071) 1.9 mg/dL 1.6-2.6 CBC W/PLT COUNT & AUTO [id number] 22:52:00 Test Item Value Reference Range Comments WHITE BLOOD CELL COUNT (BEAKER) (test epqo=511) 10.4 K/ L 3.5-10.5 RED BLOOD CELL COUNT (BEAKER) (test gnuv=414) 2.82 M/ L 4.63-6.08 HEMOGLOBIN (BEAKER) (test toyl=224) 8.8 GM/DL 13.7-17.5 HEMATOCRIT (BEAKER) (test nwml=326) 28.0 % 40.1-51.0 MEAN CORPUSCULAR VOLUME (BEAKER) (test clfy=165) 99.3 fL 79.0-92.2 MEAN CORPUSCULAR HEMOGLOBIN (BEAKER) (test 31.2 pg 25.7-32.2 zxfs=469) MEAN CORPUSCULAR HEMOGLOBIN CONC (BEAKER) (test 31.4 GM/DL 32.3-36.5 zcbu=833) RED CELL DISTRIBUTION WIDTH (BEAKER) (test 14.1 % 11.6-14.4 luar=457) PLATELET COUNT (BEAKER) (test modl=393) 152 K/CU MM 150-450 MEAN PLATELET VOLUME (BEAKER) (test pddd=528) 12.5 fL 9.4-12.4 NUCLEATED RED BLOOD CELLS (BEAKER) (test 0 /100 WBC 0-0 reiw=633) NEUTROPHILS RELATIVE PERCENT (BEAKER) (test 80 % xkvo=034) LYMPHOCYTES RELATIVE PERCENT (BEAKER) (test 8 % aelc=521) MONOCYTES RELATIVE PERCENT (BEAKER) (test 10 % uuxq=719) EOSINOPHILS RELATIVE PERCENT (BEAKER) (test 0 % vnqy=123) BASOPHILS RELATIVE PERCENT (BEAKER) (test 0 % cvuz=225) NEUTROPHILS ABSOLUTE COUNT (BEAKER) (test 8.31 K/ L 1.78-5.38 cdqr=229) LYMPHOCYTES ABSOLUTE COUNT (BEAKER) (test 0.87 K/ L 1.32-3.57 csqr=198) MONOCYTES ABSOLUTE COUNT (BEAKER) (test 1.06 K/ L 0.30-0.82 tvpa=763) EOSINOPHILS ABSOLUTE COUNT (BEAKER) (test 0.03 K/ L 0.04-0.54 qpuy=421) BASOPHILS ABSOLUTE COUNT (BEAKER) (test 0.04 K/ L 0.01-0.08 cggt=532) IMMATURE GRANULOCYTES-RELATIVE PERCENT (BEAKER) 1 % 0-1 (test hhnn=9160) POCT-GLUCOSE [id number] 22:52:00 Test Item Value Reference Range Comments POC-GLUCOSE METER (BEAKER) 221 mg/dL 70-110 TESTED AT [address] (test wqnk=1888) [place] [address] POCT-GLUCOSE [id number] 19:02:00 Test Item Value Reference Range Comments POC-GLUCOSE METER (BEAKER) 182 mg/dL 70-110 TESTED AT [address] (test gfmt=6918) [place] [address] POCT-GLUCOSE [id number] 15:31:00 Test Item Value Reference Range Comments POC-GLUCOSE METER (BEAKER) 150 mg/dL 70-110 TESTED AT [address] (test vybj=6356) [place] [address] POCT-GLUCOSE [id number] 12:07:00 Test Item Value Reference Range Comments POC-GLUCOSE METER (BEAKER) 284 mg/dL 70-110 TESTED AT [address] (test wmpm=9668) [place] [address] RAD, CHEST, 1 VIEW, NON [id number] 08:49:00Reason for exam:->respiratory insufficiencyShould this be performed [...] MDReport Verified Date/Time: 01/04/2019 08:49:14 Reading Location: [facility] Radiology Reading Room BASIC METABOLIC [id number] 06:21:00 Test Item Value Reference Range Comments SODIUM (BEAKER) (test 135 meq/L 136-145 lkll=667) POTASSIUM (BEAKER) (test 5.5 meq/L 3.5-5.1 sdkb=368) CHLORIDE (BEAKER) (test 99 meq/L 98-107 zwwl=807) CO2 (BEAKER) (test 24 meq/L 22-29 wtto=425) BLOOD UREA NITROGEN 36 mg/dL 7-21 (BEAKER) (test flgl=362) CREATININE (BEAKER) (test 7.37 mg/dL 0.57-1.25 cbss=197) GLUCOSE RANDOM (BEAKER) 203 mg/dL 70-105 (test tvcv=403) CALCIUM (BEAKER) (test 9.7 mg/dL 8.4-10.2 gjlp=122) EGFR (BEAKER) (test 7 mL/min/1.73 sq m ESTIMATED GFR IS NOT tmvz=6795) ACCURATE CREATININE CLEARANCE IN PREDICTING GLOMERULAR FILTRATION RATE. ESTIMATED GFR IS NOT APPLICABLE FOR DIALYSIS PATIENTS. [id number] 06:09:00 Test Item Value Reference Range Comments POTASSIUM (BEAKER) (test yqtq=812) 5.5 meq/L 3.5-5.1 [id number] 06:09:00 Test Item Value Reference Range Comments MAGNESIUM (BEAKER) (test rtck=091) 2.2 mg/dL 1.6-2.6 [id number] 06:09:00 Test Item Value Reference Range Comments PHOSPHORUS (BEAKER) (test krqf=308) 5.8 mg/dL 2.3-4.7 CBC W/PLT COUNT & AUTO [id number] 05:54:00 Test Item Value Reference Range Comments WHITE BLOOD CELL COUNT (BEAKER) (test cwqt=235) 11.3 K/ L 3.5-10.5 RED BLOOD CELL COUNT (BEAKER) (test iuwn=012) 2.88 M/ L 4.63-6.08 HEMOGLOBIN (BEAKER) (test ueju=871) 9.1 GM/DL 13.7-17.5 HEMATOCRIT (BEAKER) (test fpsa=350) 28.6 % 40.1-51.0 MEAN CORPUSCULAR VOLUME (BEAKER) (test zyid=291) 99.3 fL 79.0-92.2 MEAN CORPUSCULAR HEMOGLOBIN (BEAKER) (test 31.6 pg 25.7-32.2 pqts=769) MEAN CORPUSCULAR HEMOGLOBIN CONC (BEAKER) (test 31.8 GM/DL 32.3-36.5 gsis=127) RED CELL DISTRIBUTION WIDTH (BEAKER) (test 14.4 % 11.6-14.4 zmid=955) PLATELET COUNT (BEAKER) (test brgv=932) 165 K/CU MM 150-450 MEAN PLATELET VOLUME (BEAKER) (test exsu=275) 12.4 fL 9.4-12.4 NUCLEATED RED BLOOD CELLS (BEAKER) (test 0 /100 WBC 0-0 bcut=890) NEUTROPHILS RELATIVE PERCENT (BEAKER) (test 76 % dmkj=840) LYMPHOCYTES RELATIVE PERCENT (BEAKER) (test 11 % xqpl=156) MONOCYTES RELATIVE PERCENT (BEAKER) (test 11 % vcmj=682) EOSINOPHILS RELATIVE PERCENT (BEAKER) (test 0 % icjx=482) BASOPHILS RELATIVE PERCENT (BEAKER) (test 0 % lbjq=509) NEUTROPHILS ABSOLUTE COUNT (BEAKER) (test 8.59 K/ L 1.78-5.38 qqwh=803) LYMPHOCYTES ABSOLUTE COUNT (BEAKER) (test 1.28 K/ L 1.32-3.57 tpuy=872) MONOCYTES ABSOLUTE COUNT (BEAKER) (test 1.26 K/ L 0.30-0.82 ggzf=618) EOSINOPHILS ABSOLUTE COUNT (BEAKER) (test 0.04 K/ L 0.04-0.54 sgdu=968) BASOPHILS ABSOLUTE COUNT (BEAKER) (test 0.05 K/ L 0.01-0.08 whpq=069) IMMATURE GRANULOCYTES-RELATIVE PERCENT (BEAKER) 1 % 0-1 (test casb=0575) BLOOD GAS, [id number] 05:34:00 Test Item Value Reference Range Comments PH ARTERIAL (BEAKER) (test kshn=720) 7.41 7.35-7.45 PCO2 ARTERIAL (BEAKER) (test suit=360) 42 mmHg 35-45 PO2 ARTERIAL (BEAKER) (test dftt=298) 105 mmHg 80-90 O2 SATURATION ARTERIAL (BEAKER) (test bino=421) 97.7 % 96.0-97.0 HCO3 ARTERIAL (BEAKER) (test mjaf=733) 26 mmol/L 21-29 BASE EXCESS ARTERIAL (BEAKER) (test bpif=190) 0.9 mmol/L -2.0-3.0 PATIENT TEMPERATURE (BEAKER) (test xfta=4672) 37.5 C FIO2 (BEAKER) (test mhbg=6747) 21.0 % HEPATITIS B SURFACE [id number] 03:29:00 Test Item Value Reference Range Comments HEPATITIS B SURFACE ANTIGEN (2) (BEAKER) (test Nonreactive Nonreactive ikhx=3071) TROPONIN [id number] 03:04:00 Test Item Value Reference Range Comments TROPONIN I (BEAKER) (test hiwu=890) 2.70 ng/mL 0.00-0.03 Troponin I (TnI) levels [...] Range Comments CREATINE KINASE TOTAL (BEAKER) (test lydt=741) 340 U/L 29-200 [id number] 02:42:00 Test Item Value Reference Range Comments PROTIME (BEAKER) (test nsur=435) 22.0 seconds 11.7-14.7 INR (BEAKER) (test lbzo=257) 2.0 <=5.9 PARTIAL THROMBOPLASTIN TIME (BEAKER) (test 114.6 seconds 22.5-36.0 kjvu=523) RECOMMENDED COUMADIN/WARFARIN INR THERAPY RANGESSTANDARD DOSE: 2.0 - 3.0 Includes: PROPHYLAXIS forvenous thrombosis, systemic embolization; TREATMENT for venous thrombosis and/or pulmonary embolus.HIGH RISK: Target INR is 2.5-3.5 for patients with mechanical heart valves.BLOOD GAS, [id number] 02:15:00 Test Item Value Reference Range Comments PH ARTERIAL (BEAKER) (test seph=748) 7.35 7.35-7.45 PCO2 ARTERIAL (BEAKER) (test scmg=132) 47 mmHg 35-45 PO2 ARTERIAL (BEAKER) (test cnuz=600) 78 mmHg 80-90 O2 SATURATION ARTERIAL (BEAKER) (test swos=602) 94.6 % 96.0-97.0 HCO3 ARTERIAL (BEAKER) (test waiw=432) 25 mmol/L 21-29 BASE EXCESS ARTERIAL (BEAKER) (test dnzp=959) -0.5 mmol/L -2.0-3.0 PATIENT TEMPERATURE (BEAKER) (test apsq=0263) 37.5 C FIO2 (BEAKER) (test zxvz=3520) 21.0 % POCT-GLUCOSE [id number] 00:41:00 Test Item Value Reference Range Comments POC-GLUCOSE METER (BEAKER) 237 mg/dL 70-[address] [facility] [address] [facility] (test bkin=7844) [facility] [address] TROPONIN [id number] 00:28:00 Test Item Value Reference Range Comments TROPONIN I (BEAKER) (test pvjm=388) 1.65 ng/mL 0.00-0.03 Troponin I (TnI) levels [...] acute neurological disease, and persistent tachyarrhythmia.COMPREHENSIVE METABOLIC [id number] 00:24:00 Test Item Value Reference Range Comments TOTAL PROTEIN (BEAKER) 6.4 gm/dL 6.0-8.3 (test sorm=436) ALBUMIN (BEAKER) (test 3.6 g/dL 3.5-5.0 uhis=3633) ALKALINE PHOSPHATASE 75 U/L 40-150 (BEAKER) (test wtnt=209) BILIRUBIN TOTAL (BEAKER) 0.5 mg/dL 0.2-1.2 (test owdr=912) SODIUM (BEAKER) (test 133 meq/L 136-145 bvwi=014) POTASSIUM (BEAKER) (test 5.7 meq/L 3.5-5.1 gbdj=228) CHLORIDE (BEAKER) (test 99 meq/L 98-107 wgvr=727) CO2 (BEAKER) (test 25 meq/L 22-29 wpyl=025) BLOOD UREA NITROGEN 33 mg/dL 7-21 (BEAKER) (test yjkt=763) CREATININE (BEAKER) (test 6.92 mg/dL 0.57-1.25 sogw=481) GLUCOSE RANDOM (BEAKER) 234 mg/dL 70-105 (test uszs=016) CALCIUM (BEAKER) (test 9.1 mg/dL 8.4-10.2 ppqq=080) AST (SGOT) (BEAKER) (test 15 U/L 5-34 psck=138) ALT (SGPT) (BEAKER) (test 17 U/L 6-55 ovfs=809) EGFR (BEAKER) (test 8 mL/min/1.73 sq m ESTIMATED GFR IS NOT ozls=9295) ACCURATE CREATININE CLEARANCE IN PREDICTING GLOMERULAR FILTRATION RATE. ESTIMATED GFR IS NOT APPLICABLE FOR DIALYSIS PATIENTS. [id number] 00:21:00 Test Item Value Reference Range Comments MAGNESIUM (BEAKER) (test gaed=361) 2.0 mg/dL 1.6-2.6 LACTIC ACID, [id number] 00:16:00 Test Item Value Reference Range Comments LACTATE BLOOD ARTERIAL (2) (BEAKER) (test 1.3 mmol/L 0.5-2.2 lkxe=1881) BLOOD GAS, [id number] 23:54:00 Test Item Value Reference Range Comments PH ARTERIAL (BEAKER) (test thtt=814) 7.32 7.35-7.45 PCO2 ARTERIAL (BEAKER) (test kvnj=787) 51 mmHg 35-45 PO2 ARTERIAL (BEAKER) (test pqay=844) 133 mmHg 80-90 O2 SATURATION ARTERIAL (BEAKER) (test ajiv=236) 98.4 % 96.0-97.0 HCO3 ARTERIAL (BEAKER) (test jwkk=494) 26 mmol/L 21-29 BASE EXCESS ARTERIAL (BEAKER) (test npgi=464) -0.3 mmol/L -2.0-3.0 PATIENT TEMPERATURE (BEAKER) (test fikh=5276) 37.0 C FIO2 (BEAKER) (test ypml=8783) 40.0 % RAD, CHEST, 1 VIEW, NON [id number] 22:24:00Reason for exam:-> hypotensionShould this be performed at the bedside?->YesFINAL REPORT Chest dated 01/03/2019 Clinical Information: hypotension Comment: Heart is enlarged. Pulmonary vasculature is indistinct. Interstitial disease is seen bilaterally suggestive of vascular congestion. Endotracheal tube is present. A curvilinear radiopaque density is seen in the mid upper chest. Please correlate clinically. Signed: Yuridia Wallace MDReport Verified Date/Time: 01/03/2019 22:24:07 Reading Location: [address] Consult Reading Room BASI METABOLIC [id number] 22:08:00 Test Item Value Reference Range Comments SODIUM (BEAKER) (test 136 meq/L 136-145 dxhr=310) POTASSIUM (BEAKER) (test 5.2 meq/L 3.5-5.1 Specimen slightly mdgl=164) hemolyzed CHLORIDE (BEAKER) (test 104 meq/L 98-107 mqoy=062) CO2 (BEAKER) (test 22 meq/L 22-29 iekt=081) BLOOD UREA NITROGEN 27 mg/dL 7-21 (BEAKER) (test eoee=223) CREATININE (BEAKER) (test 5.82 mg/dL 0.57-1.25 Specimen slightly tdfn=571) hemolyzed GLUCOSE RANDOM (BEAKER) 220 mg/dL 70-105 (test jabg=390) CALCIUM (BEAKER) (test 8.0 mg/dL 8.4-10.2 tvae=913) EGFR (BEAKER) (test 10 mL/min/1.73 sq m ESTIMATED GFR IS NOT vgyd=1800) ACCURATE CREATININE CLEARANCE IN PREDICTING GLOMERULAR FILTRATION RATE. ESTIMATED GFR IS NOT APPLICABLE FOR DIALYSIS PATIENTS. [id number] 22:07:00 Test Item Value Reference Range Comments MAGNESIUM (BEAKER) (test 2.0 mg/dL 1.6-2.6 Specimen slightly hemolyzed oatr=123) [id number] 22:07:00 Test Item Value Reference Range Comments PHOSPHORUS (BEAKER) (test 5.1 mg/dL 2.3-4.7 Specimen slightly hemolyzed dtnz=077) POTASSIUM-STAT [id number] 21:42:00 Test Item Value Reference Range Comments POTASSIUM (BEAKER) (test sdqt=679) 4.7 meq/L 3.6-5.5 GLUCOSE-STAT [id number] 21:42:00 Test Item Value Reference Range Comments GLUCOSE RANDOM (BEAKER) (test toyi=979) 205 mg/dL 70-110 SODIUM NA-STAT [id number] 21:42:00 Test Item Value Reference Range Comments SODIUM (BEAKER) (test fphl=396) 134 meq/L 135-148 HGB/HCT (H&H) - STAT [id number] 21:42:00 Test Item Value Reference Range Comments HEMOGLOBIN (BEAKER) (test pszk=452) 8.3 g/dL 13.0-16.8 HEMATOCRIT (BEAKER) (test asmb=566) 24.0 % 40.0-50.0 [id number] 21:34:00 Test Item Value Reference Range Comments PROTIME (BEAKER) (test rgmw=377) 54.5 seconds 11.7-14.7 INR (BEAKER) (test uhey=669) 6.6 <=5.9 PARTIAL THROMBOPLASTIN TIME (BEAKER) (test 116.0 seconds 22.5-36.0 qszn=778) RECOMMENDED COUMADIN/WARFARIN INR THERAPY RANGESSTANDARD DOSE: 2.0 - 3.0 Includes: PROPHYLAXIS forvenous thrombosis, systemic embolization; TREATMENT for venous thrombosis and/or pulmonary embolus.HIGH RISK: Target INR is 2.5-3.5 for patients with mechanical heart valves.LACTIC ACID, [id number] 21:27:00 Test Item Value Reference Range Comments LACTATE BLOOD VENOUS (2) 1.7 mmol/L 0.5-2.2 Specimen moderately hemolyzed (BEAKER) (test xxga=9533) CBC W/PLT COUNT & AUTO [id number] 21:16:00 Test Item Value Reference Range Comments WHITE BLOOD CELL COUNT (BEAKER) (test qhkk=104) 13.2 K/ L 3.5-10.5 RED BLOOD CELL COUNT (BEAKER) (test rkzi=797) 2.96 M/ L 4.63-6.08 HEMOGLOBIN (BEAKER) (test tbqp=717) 9.5 GM/DL 13.7-17.5 HEMATOCRIT (BEAKER) (test lcku=565) 29.8 % 40.1-51.0 MEAN CORPUSCULAR VOLUME (BEAKER) (test ihhv=534) 100.7 fL 79.0-92.2 MEAN CORPUSCULAR HEMOGLOBIN (BEAKER) (test 32.1 pg 25.7-32.2 fpnh=754) MEAN CORPUSCULAR HEMOGLOBIN CONC (BEAKER) (test 31.9 GM/DL 32.3-36.5 kdiy=841) RED CELL DISTRIBUTION WIDTH (BEAKER) (test 14.6 % 11.6-14.4 kuji=960) PLATELET COUNT (BEAKER) (test jalb=107) 188 K/CU MM 150-450 MEAN PLATELET VOLUME (BEAKER) (test hpto=029) 12.2 fL 9.4-12.4 NUCLEATED RED BLOOD CELLS (BEAKER) (test 0 /100 WBC 0-0 sryi=787) NEUTROPHILS RELATIVE PERCENT (BEAKER) (test 74 % agjc=945) LYMPHOCYTES RELATIVE PERCENT (BEAKER) (test 14 % diyr=718) MONOCYTES RELATIVE PERCENT (BEAKER) (test 11 % vdjb=526) EOSINOPHILS RELATIVE PERCENT (BEAKER) (test 0 % nrvz=138) BASOPHILS RELATIVE PERCENT (BEAKER) (test 0 % ecbp=891) NEUTROPHILS ABSOLUTE COUNT (BEAKER) (test 9.78 K/ L 1.78-5.38 brln=580) LYMPHOCYTES ABSOLUTE COUNT (BEAKER) (test 1.81 K/ L 1.32-3.57 pbqq=003) MONOCYTES ABSOLUTE COUNT (BEAKER) (test 1.46 K/ L 0.30-0.82 vmpu=307) EOSINOPHILS ABSOLUTE COUNT (BEAKER) (test 0.01 K/ L 0.04-0.54 uosb=439) BASOPHILS ABSOLUTE COUNT (BEAKER) (test 0.04 K/ L 0.01-0.08 glnc=379) IMMATURE GRANULOCYTES-RELATIVE PERCENT (BEAKER) 1 % 0-1 (test qmmo=0196) BLOOD GAS, [id number] 21:03:00 Test Item Value Reference Range Comments PH ARTERIAL (BEAKER) (test sltr=485) 7.34 7.35-7.45 PCO2 ARTERIAL (BEAKER) (test imbj=365) 49 mmHg 35-45 PO2 ARTERIAL (BEAKER) (test kiyj=472) 102 mmHg 80-90 O2 SATURATION ARTERIAL (BEAKER) (test fqjt=733) 97.3 % 96.0-97.0 HCO3 ARTERIAL (BEAKER) (test sfgn=009) 25 mmol/L 21-29 BASE EXCESS ARTERIAL (BEAKER) (test qniz=229) -0.8 mmol/L -2.0-3.0 PATIENT TEMPERATURE (BEAKER) (test hnwu=2966) 37.0 C FIO2 (BEAKER) (test npuw=2621) 40.0 % [id number] 18:33:00 Test Item Value Reference Range Comments ACTIVATED CLOTTING TIME [address] [facility] [address] [facility] (BEAKER) (test bryh=326) [facility] [address] PROTHROMBIN [id number] 14:04:00 Test Item Value Reference Range Comments PROTIME (BEAKER) (test plzb=586) 14.3 seconds 11.7-14.7 INR (BEAKER) (test hofd=656) 1.2 <=5.9 RECOMMENDED COUMADIN/WARFARIN INR THERAPY RANGESSTANDARD DOSE: 2.0 - 3.0 Includes: PROPHYLAXIS forvenous thrombosis, systemic embolization; TREATMENT for venous thrombosis and/or pulmonary embolus.HIGH RISK: Target INR is 2.5-3.5 for patients with mechanical heart valves.CBC W/PLT COUNT & AUTO [id number] 14:00:00 Test Item Value Reference Range Comments WHITE BLOOD CELL COUNT (BEAKER) (test lpty=078) 15.0 K/ L 3.5-10.5 RED BLOOD CELL COUNT (BEAKER) (test yrmb=152) 3.01 M/ L 4.63-6.08 HEMOGLOBIN (BEAKER) (test phll=398) 9.7 GM/DL 13.7-17.5 HEMATOCRIT (BEAKER) (test jazv=061) 30.3 % 40.1-51.0 MEAN CORPUSCULAR VOLUME (BEAKER) (test fbqj=821) 100.7 fL 79.0-92.2 MEAN CORPUSCULAR HEMOGLOBIN (BEAKER) (test 32.2 pg 25.7-32.2 oxzv=164) MEAN CORPUSCULAR HEMOGLOBIN CONC (BEAKER) (test 32.0 GM/DL 32.3-36.5 hqpw=392) RED CELL DISTRIBUTION WIDTH (BEAKER) (test 14.6 % 11.6-14.4 duxc=003) PLATELET COUNT (BEAKER) (test gixk=542) 196 K/CU MM 150-450 MEAN PLATELET VOLUME (BEAKER) (test wyqm=510) 12.4 fL 9.4-12.4 NUCLEATED RED BLOOD CELLS (BEAKER) (test 0 /100 WBC 0-0 ljjz=347) NEUTROPHILS RELATIVE PERCENT (BEAKER) (test 82 % mylu=790) LYMPHOCYTES RELATIVE PERCENT (BEAKER) (test 7 % hmtj=973) MONOCYTES RELATIVE PERCENT (BEAKER) (test 10 % izch=442) EOSINOPHILS RELATIVE PERCENT (BEAKER) (test 0 % fvwe=166) BASOPHILS RELATIVE PERCENT (BEAKER) (test 0 % eine=065) NEUTROPHILS ABSOLUTE COUNT (BEAKER) (test 12.24 K/ L 1.78-5.38 lqch=038) LYMPHOCYTES ABSOLUTE COUNT (BEAKER) (test 1.10 K/ L 1.32-3.57 mskc=493) MONOCYTES ABSOLUTE COUNT (BEAKER) (test 1.43 K/ L 0.30-0.82 bcps=742) EOSINOPHILS ABSOLUTE COUNT (BEAKER) (test 0.01 K/ L 0.04-0.54 fmgy=633) BASOPHILS ABSOLUTE COUNT (BEAKER) (test 0.06 K/ L 0.01-0.08 vnog=719) IMMATURE GRANULOCYTES-RELATIVE PERCENT (BEAKER) 1 % 0-1 (test bhxh=5193) TROPONIN [id number] 12:20:00 Test Item Value Reference Range Comments TROPONIN I (BEAKER) (test pnlp=449) < ng/mL 0.00-0.03 Troponin I (TnI) levels [...] acute neurological disease, and persistent tachyarrhythmia.COMPREHENSIVE METABOLIC [id number] 12:15:00 Test Item Value Reference Range Comments TOTAL PROTEIN (BEAKER) 7.0 gm/dL 6.0-8.3 (test fidi=953) ALBUMIN (BEAKER) (test 4.1 g/dL 3.5-5.0 wetz=2753) ALKALINE PHOSPHATASE 85 U/L 40-150 (BEAKER) (test oswe=036) BILIRUBIN TOTAL (BEAKER) 0.5 mg/dL 0.2-1.2 (test qjze=404) SODIUM (BEAKER) (test 138 meq/L 136-145 efpa=565) POTASSIUM (BEAKER) (test 5.4 meq/L 3.5-5.1 pdmx=092) CHLORIDE (BEAKER) (test 101 meq/L 98-107 rlgl=752) CO2 (BEAKER) (test 24 meq/L 22-29 mmep=735) BLOOD UREA NITROGEN 24 mg/dL 7-21 (BEAKER) (test arqf=891) CREATININE (BEAKER) (test 5.83 mg/dL 0.57-1.25 qtvw=557) GLUCOSE RANDOM (BEAKER) 213 mg/dL 70-105 (test kafc=414) CALCIUM (BEAKER) (test 9.4 mg/dL 8.4-10.2 idnu=157) AST (SGOT) (BEAKER) (test 16 U/L 5-34 ityb=695) ALT (SGPT) (BEAKER) (test 23 U/L 6-55 itbd=474) EGFR (BEAKER) (test 10 mL/min/1.73 sq m ESTIMATED GFR IS NOT wsoo=5386) ACCURATE CREATININE CLEARANCE IN PREDICTING GLOMERULAR FILTRATION RATE. ESTIMATED GFR IS NOT APPLICABLE FOR DIALYSIS PATIENTS. LIPID [id number] 12:13:00 Test Item Value Reference Range Comments TRIGLYCERIDES (BEAKER) (test jjgi=920) 158 mg/dL CHOLESTEROL (BEAKER) (test teui=872) 113 mg/dL HDL CHOLESTEROL (BEAKER) (test ftoy=741) 34 mg/dL LDL CHOLESTEROL CALCULATED (BEAKER) (test 47 mg/dL xwax=184) Triglyceride Reference Range: Low Risk <150 Borderline 150- 199 High Risk 200-499 Very High Risk >=500Cholesterol Reference Range: Low Risk <200 Borderline 200-239 High Risk > 240HDL Cholesterol Reference Range: Low Risk >=60 High Risk <40LDL Cholesterol Reference Range: Optimal <100 Near Optimal 100-129 Borderline 130-159 High 160-189 Very High >=190POCT-GLUCOSE [id number] 11:26:00 Test Item Value Reference Range Comments POC-GLUCOSE METER (BEAKER) 291 mg/dL 70-[address] [facility] [address] (test mwel=6310) [facility] [id number]
[2019-05-21 00:06] LABS: Potassium 5.2 mmol/L (3.5-5.1)
--- NOTE | 2019-05-21 00:12 | ER ---
Nurse's Notes [facility] Name: Ritika Mireles Age: 68 yrs Sex: Male : 1950 Arrival Date: 05/20/2019 Time: 22:21 Bed 3 Private MD: Diagnosis: Chronic kidney disease (CKD);Hyperkalemia Presentation: 05/20 22:38 Presenting complaint: Patient states: had diarrhea until noon and missed his dialysis. ak1 pt tried to reschedule dialysis and the center stated the pt needed clearance due to possible K+ issues. Transition of care: patient was not received from another setting of care. Onset of symptoms was May 20, 2019. Risk Assessment: Do you want to hurt yourself or someone else? Patient reports no desire to harm self or others. Initial Sepsis Screen: Does the patient meet any 2 criteria? No. Patient's initial sepsis screen is negative. Does the patient have a suspected source of infection? No. Patient's initial sepsis screen is negative. Care prior to arrival: None. 22:38 Method Of Arrival: Ambulatory ak1 22:38 Acuity: MICHELLE 4 ak1 Triage Assessment: 22:41 General: Appears in no apparent distress. Behavior is calm, cooperative. ak1 Historical: - Allergies: 22:41 Bactrim; ak1 22:41 Sulfa (Sulfonamide Antibiotics); ak1 22:41 TETRACYCLINES; ak1 - Home Meds: 22:41 Cami 180 mg Oral tab 1 tab nightly [Active]; baclofen 10 mg Oral tab 1.5 tab daily ak1 [Active]; calcium acetate 667 mg Oral tab 3 tabs 3 times per day [Active]; Colace 100 mg Oral cap 2 caps 2 times per day [Active]; Constulose 10 gram/15 mL Oral soln 30 mL twice a day [Active]; Eliquis 2.5 mg Oral tab 1 tab 2 times per day [Active]; furosemide 80 mg Oral tab 1 tab once daily [Active]; gabapentin 300 mg Oral cap 1 cap 3 times per day [Active]; hydromorphone 2 mg Oral tab 1 tab twice a day [Active]; Lantus 100 unit/mL Sub-Q soln 40 unit daily [Active]; Linzess 72 mcg Oral 1 cap once daily [Active]; montelukast 10 mg Oral tab 1 tab nightly [Active]; Novolog 100 unit/mL Sub-Q soln 40 unit twice a day [Active]; [place]-3 1 gm Oral 2 tab twice a day [Active]; pantoprazole 40 mg Oral TbEC 1 tab once daily [Active]; Pepcid 40 mg Oral tab 1 tab every 12 hours [Active]; ramipril 5 mg Oral cap 1 cap once daily [Active]; rosuvastatin 10 mg Oral tab 1 tab nightly [Active]; sevelamer carbonate 800 mg Oral tab 1 tab 3 times per day [Active]; Vitamin D 5000IU Oral 2 tab daily [Active]; - PMHx: 22:41 Cardiac Stents x3; Diabetes - IDDM; diabetic retinopathy; Dialysis (started 03/20/17); ak1 High Cholesterol; Hypertension; PE; RENAL FAILURE; - Immunization history:: Adult Immunizations unknown. - Social history:: Smoking status: Patient/guardian denies using tobacco. - Ebola Screening: : No symptoms or risks identified at this time. Screenin:57 Abuse screen: Denies threats or abuse. Denies injuries from another. Nutritional lp1 screening: No deficits noted. Tuberculosis screening: No symptoms or risk factors identified. Fall Risk None identified. Assessment: 22:55 General: Appears in no apparent distress. comfortable, Behavior is calm, cooperative, lp1 appropriate for age. Pain: Denies pain. Neuro: Level of Consciousness is awake, alert, obeys commands, Oriented to person, place, time, situation. Cardiovascular: Patient's skin is warm and dry. Respiratory: Respiratory effort is even, unlabored. GI: No signs and/or symptoms were reported involving the gastrointestinal system. : No signs and/or symptoms were reported regarding the genitourinary system. EENT: No signs and/or symptoms were reported regarding the EENT system. Derm: Skin is pink, warm \T\ dry. Musculoskeletal: No deficits noted. 23:31 Reassessment: Lab at bedside. lp1 05/21 00:10 Reassessment: Patient appears in no apparent distress at this time. No changes from lp1 previously documented assessment. 00:10 Reassessment: Patient and/or family updated on plan of care and expected duration. Pain ea level reassessed. Patient is alert, oriented x 3, equal unlabored respirations, skin warm/dry/pink. Discharge instruction given to patient and family, verbalized the understanding of instruction. Pt left ED ambulatory, tolerated well. Vital Signs: 05/20 22:41 BP 132 / 50; Pulse 71; Resp 16; Temp 97.9; Pulse Ox 96% on R/A; Weight 127.01 kg (R); ak1 Height 5 ft. 11 in. (180.34 cm) (R); Pain 0/10; 22:41 Body Mass Index 39.05 (127.01 kg, 180.34 cm) ak1 ED Course: 22:21 Patient arrived in ED. cl3 22:39 Triage completed. ak1 22:41 Arm band placed on Patient placed in an exam room, on a stretcher, Patient notified of ak1 wait time. 22:49 Ignacio Gonsalves PA is PHCP. jr8 22:49 Jose Alberto Corrales MD is Attending Physician. jr8 22:55 Elissa Lindo, FORREST is Primary Nurse. lp1 22:56 Patient has correct armband on for positive identification. lp1 22:57 No provider procedures requiring assistance completed. Patient did not have IV access lp1 during this emergency room visit. 05/21 00:09 Notified Nurse Practitioner and/or Physician Assembler [employer] Top of a critical lab result(s), lp1 Creatinine 10.10. Administered Medications: No medications were administered Outcome: 00:10 Discharge ordered by . jr8 00:12 Discharged to home ambulatory, with significant other. ea 00:12 Condition: stable 00:12 Discharge instructions given to patient, family, Instructed on discharge instructions, follow up and referral plans. Demonstrated understanding of instructions, follow-up care. 00:13 Patient left the ED. ea Signatures: Elissa Lindo, RN RN lp1 Ignacio Gonsalves PA PA jr8 Lyssa Chang RN RN ak1 Opal Santos RN RN ea Lewis, Charde cl3
--- NOTE | 2019-05-21 00:13 | EDPHYS ---
Physician Documentation [facility] Name: Ritika Mireles Age: 68 yrs Sex: Male : 1950 Arrival Date: 05/20/2019 Time: 22:21 Bed 3 Private MD: ED Physician Jose Alberto Corrales HPI: 05/20 23:42 This 68 yrs old Male presents to ER via Ambulatory with complaints of Medical jr8 Clearance. 23:42 Patient came to ED because dialysis clinic would not let him reschedule his dialysis to jr8 tomorrow since he had diarrhea today and missed. Stated that he needed to have medical clearance and potassium checked before they would allow him to have dialysis. Stated that his diarrhea has since resolved and feels fine. No complaints currently . Severity of symptoms: At their worst the symptoms were mild in the emergency department the symptoms are unchanged. The patient has not experienced similar symptoms in the past. The patient has not recently seen a physician. Historical: - Allergies: 22:41 Bactrim; ak1 22:41 Sulfa (Sulfonamide Antibiotics); ak1 22:41 TETRACYCLINES; ak1 - Home Meds: 22:41 Cami 180 mg Oral tab 1 tab nightly [Active]; baclofen 10 mg Oral tab 1.5 tab daily ak1 [Active]; calcium acetate 667 mg Oral tab 3 tabs 3 times per day [Active]; Colace 100 mg Oral cap 2 caps 2 times per day [Active]; Constulose 10 gram/15 mL Oral soln 30 mL twice a day [Active]; Eliquis 2.5 mg Oral tab 1 tab 2 times per day [Active]; furosemide 80 mg Oral tab 1 tab once daily [Active]; gabapentin 300 mg Oral cap 1 cap 3 times per day [Active]; hydromorphone 2 mg Oral tab 1 tab twice a day [Active]; Lantus 100 unit/mL Sub-Q soln 40 unit daily [Active]; Linzess 72 mcg Oral 1 cap once daily [Active]; montelukast 10 mg Oral tab 1 tab nightly [Active]; Novolog 100 unit/mL Sub-Q soln 40 unit twice a day [Active]; [place]-3 1 gm Oral 2 tab twice a day [Active]; pantoprazole 40 mg Oral TbEC 1 tab once daily [Active]; Pepcid 40 mg Oral tab 1 tab every 12 hours [Active]; ramipril 5 mg Oral cap 1 cap once daily [Active]; rosuvastatin 10 mg Oral tab 1 tab nightly [Active]; sevelamer carbonate 800 mg Oral tab 1 tab 3 times per day [Active]; Vitamin D 5000IU Oral 2 tab daily [Active]; - PMHx: 22:41 Cardiac Stents x3; Diabetes - IDDM; diabetic retinopathy; Dialysis (started 03/20/17); ak1 High Cholesterol; Hypertension; PE; RENAL FAILURE; - Immunization history:: Adult Immunizations unknown. - Social history:: Smoking status: Patient/guardian denies using tobacco. - Ebola Screening: : No symptoms or risks identified at this time. ROS: 23:42 Eyes: Negative for injury, pain, redness, and discharge, ENT: Negative for injury, jr8 pain, and discharge, Neck: Negative for injury, pain, and swelling, Cardiovascular: Negative for chest pain, palpitations, and edema, Respiratory: Negative for shortness of breath, cough, wheezing, and pleuritic chest pain, Abdomen/GI: Negative for abdominal pain, nausea, vomiting, diarrhea, and constipation, Back: Negative for injury and pain, MS/Extremity: Negative for injury and deformity, Skin: Negative for injury, rash, and discoloration, Neuro: Negative for headache, weakness, numbness, tingling, and seizure. Exam: 23:42 Eyes: Pupils equal round and reactive to light, extra-ocular motions intact. Lids and jr8 lashes normal. Conjunctiva and sclera are non-icteric and not injected. Cornea within normal limits. Periorbital areas with no swelling, redness, or edema. ENT: Nares patent. No nasal discharge, no septal abnormalities noted. Tympanic membranes are normal and external auditory canals are clear. Oropharynx with no redness, swelling, or masses, exudates, or evidence of obstruction, uvula midline. Mucous membranes moist. Neck: Trachea midline, no thyromegaly or masses palpated, and no cervical lymphadenopathy. Supple, full range of motion without nuchal rigidity, or vertebral point tenderness. No Meningismus. Cardiovascular: Regular rate and rhythm with a normal S1 and S2. No gallops, murmurs, or rubs. Normal PMI, no JVD. No pulse deficits. Respiratory: Lungs have equal breath sounds bilaterally, clear to auscultation and percussion. No rales, rhonchi or wheezes noted. No increased work of breathing, no retractions or nasal flaring. Abdomen/GI: Soft, non-tender, with normal bowel sounds. No distension or tympany. No guarding or rebound. No evidence of tenderness throughout. Back: No spinal tenderness. No costovertebral tenderness. Full range of motion. Skin: Warm, dry with normal turgor. Normal color with no rashes, no lesions, and no evidence of cellulitis. MS/ Extremity: Pulses equal, no cyanosis. Neurovascular intact. Full, normal range of motion. Neuro: Awake and alert, GCS 15, oriented to person, place, time, and situation. Cranial nerves II-XII grossly intact. Motor strength 5/5 in all extremities. Sensory grossly intact. Cerebellar exam normal. Normal gait. Vital Signs: 22:41 BP 132 / 50; Pulse 71; Resp 16; Temp 97.9; Pulse Ox 96% on R/A; Weight 127.01 kg (R); ak1 Height 5 ft. 11 in. (180.34 cm) (R); Pain 0/10; 22:41 Body Mass Index 39.05 (127.01 kg, 180.34 cm) ak1 MDM: 22:49 Patient medically screened. jr8 23:42 Data reviewed: vital signs, nurses notes, lab test result(s). Data interpreted: Pulse jr8 oximetry: on room air is 96 %. Interpretation: normal. Counseling: I had a detailed discussion with the patient and/or guardian regarding: the historical points, exam findings, and any diagnostic results supporting the discharge/admit diagnosis, lab results, the need for outpatient follow up, a family practitioner, to return to the emergency department if symptoms worsen or persist or if there are any questions or concerns that arise at home. 05/20 22:48 Order name: BMP bb 05/20 22:57 Order name: Basic Metabolic Panel; Complete Time: 00:09 EDMS Administered Medications: No medications were administered Disposition: 05/21 07:51 Co-signature as Attending Physician, Jose Alberto Corrales MD I agree with the assessment and 4 plan of care. Disposition: 05/21/19 00:10 Discharged to Home. Impression: Chronic kidney disease (CKD), Hyperkalemia. - Condition is Stable. - Discharge Instructions: Hyperkalemia, Chronic Kidney Disease, Adult. - Medication Reconciliation Form, Thank You Letter, Antibiotic Education, Prescription Opioid Use form. - Follow up: Private Physician; When: As needed; Reason: Recheck today's complaints, Continuance of care, Re-evaluation by your physician. - Problem is new. - Symptoms are unchanged. Signatures: Dispatcher [employer] EDMS Ignacio Gonsalves PA PA jr8 Lyssa Chang, RN RN ak1 Opal Santos RN RN ea Jose Alberto Corrales MD MD tw4 Corrections: (The following items were deleted from the chart) 00:13 00:10 05/21/2019 00:10 Discharged to Home. Impression: Chronic kidney disease (CKD); ea Hyperkalemia. Condition is Stable. Forms are Medication Reconciliation Form, Thank You Letter, Antibiotic Education, Prescription Opioid Use. Follow up: Private Physician; When: As needed; Reason: Recheck today's complaints, Continuance of care, Re-evaluation by your physician. Problem is new. Symptoms are unchanged. jr8
[2019-05-21 02:19] VITALS: BP 132/50; TEMP 97.9; O2SAT 96
== END 2019-05-21 00:13 | disposition home or self-care (01) ==
LOC: ER 22:15
DX: N18.9 Chronic kidney disease, unspecified (principal); E87.5 Hyperkalemia; I10 Essential (primary) hypertension; E11.319 Type 2 diabetes mellitus with unspecified diabetic retinopathy without macular edema; Z88.1 Allergy status to other antibiotic agents; Z88.2 Allergy status to sulfonamides; Z88.3 Allergy status to other anti-infective agents; Z99.2 Dependence on renal dialysis; Z95.5 Presence of coronary angioplasty implant and graft
CPT/HCPCS: 36415; 80048; 99281

== ENCOUNTER 2019-06-25 08:40 | Inpatient (IN) | payer OTHER, MEDICARE ==
[2019-06-25 08:55] LABS: Absolute Lymphocytes (CBC) 1.5 K/uL (0.7-4.9); Basophils % 1.2 % (0-1.3); Hematocrit 33.6 % (39.6-49.0); Lymphocytes % 16.8 % (15.3-44.8); MPV 9.2 fL (7.6-11.3); RBC Red Blood Cell Count 3.64 M/uL (4.33-5.43)
[2019-06-25] MEDS ORDERED: NA CHLORIDE 0.9% 500 ML ONE (09:02)
[2019-06-25] MEDS ORDERED: CEFOXITIN/SWI 1gm 1 GM/10 ML SYR ONE (09:03)
[2019-06-25 09:16] LABS: Potassium 4.6 mmol/L (3.5-5.1)
[2019-06-25] MEDS ORDERED: MIDAZOLAM HCL 2 MG/2 ML INJ ONE (09:25)
[2019-06-25] MEDS ORDERED: LIDOCAINE 2% MPF 5 ML VIAL ONE (09:25)
[2019-06-25] MEDS ORDERED: PROPOFOL 200 MG/20 ML VIAL IV ONE (09:25)
[2019-06-25] MEDS ORDERED: FENTANYL CITR 100 MCG/2 ML ONE (09:25)
[2019-06-25] MEDS ORDERED: ONDANSETRON 4 MG/2 ML VIAL ONE (09:26)
[2019-06-25] MEDS ORDERED: ROCURONIUM 50 MG/5 ML VIAL IV ONE (09:27)
[2019-06-25] MEDS ORDERED: BUPIVACAINE 0.5% PF 10 ML VIAL ONE (09:32)
[2019-06-25] MEDS ORDERED: ETOMIDATE 20 MG/10 ML VIAL IV ONE (09:57)
[2019-06-25] MEDS ORDERED: EPHEDRINE SULF 50 MG/ML VIAL ONE (10:22)
[2019-06-25] MEDS ORDERED: NS 0.9% VIAL 20 ML ONE ×3 (10:22→13:29)
[2019-06-25] MEDS ORDERED: NEOSTIGMINE 1 MG/ML -10 ML VIAL ONE ×2 (10:26→10:52)
[2019-06-25] MEDS ORDERED: Phenylephrine HCl 10 MG/ML 1 ML VIAL ONE (10:27)
[2019-06-25] MEDS ORDERED: GLYCOPYRROLATE 0.2 MG/ML SYR ONE ×3 (10:42→11:00)
--- NOTE | 2019-06-25 11:50 | RAD REPORT ---
EXAM DESCRIPTION: Clemencia Single View06/25/2019 11:39 am CLINICAL HISTORY: Shortness of breath COMPARISON: May 2019 FINDINGS: Endotracheal tube in good position Moderate to marked right alveolar opacities. Mild to moderate left alveolar opacities. The heart is mildly enlarged. Pacemaker in place IMPRESSION: Moderate to marked right and [id number] left alveolar opacities probably pulmonary edema. A component of aspiration pneumonitis may also be present
[2019-06-25] MEDS ORDERED: FUROSEMIDE 20 MG/ 2ML VIAL ONE ×2 (12:43→12:50)
[2019-06-25] MEDS ORDERED: ACETAMINOPHEN 500 MG TAB PO PRN (13:26)
[2019-06-25] MEDS ORDERED: ONDANSETRON 4 MG/2 ML VIAL IV PRN (13:26)
[2019-06-25] MEDS ORDERED: HEPARIN 5000 UNIT/ML 1 ML VIAL ONE (13:28)
[2019-06-25] MEDS ORDERED: LIDOCAINE 1% MPF 30 ML VIAL ONE (13:30)
[2019-06-25] MEDS: NOREPINEPHRINE 4 MG in D5W 250 ML IV PRN ×2 (13:36→23:16)
[2019-06-25] MEDS ORDERED: HYDROMORPHONE HCL 1 MG/ML INJ ONE (14:17)
--- NOTE | 2019-06-25 14:22 | RAD REPORT ---
EXAM DESCRIPTION: RAD - Chest Single View - 06/25/2019 2:09 pm CLINICAL HISTORY: Right jugular line placement COMPARISON: June 25 TECHNIQUE: AP portable chest image was obtained 1404 hours . FINDINGS: Motion degraded portable study shows placement of a right jugular central line. Tip is in the mid SVC. No pneumothorax. Extensive airspace opacification present in the right lung field similar to comparison. Endotracheal tube has been removed. Cardiomediastinal silhouette is stable. IMPRESSION: Right jugular central line placement with tip mid SVC. No pneumothorax. Exam is degraded by motion.
[2019-06-25] MEDS ORDERED: CODEINE 30MG/APAP 300MG TAB PO PRN (14:53)
[2019-06-25] MEDS: HYDROCODONE/APAP 7.5/325 MG TAB PO PRN ×3 (14:57→23:10)
--- NOTE | 2019-06-25 15:57 | CON ---
Date of Consultation: 06/26/2019 Reason For Consultation: Patient needs a central line. History Of Present Illness: The patient is a 68-year-old gentleman, who underwent exam under anesthe willard, proctoscopy and incision, drainage and debridement of the perirectal abscess and post surgery th ere was difficulty in extubating him. He remained intubated for longer and has developed pulmonary e jovita. He needs to be admitted and he has hypotension and therefore he needs vasopressors for which h e requires a central line and I was consulted for that purpose. He is awake and alert. When he is o n BiPAP, he is extubated. Review of Systems: Otherwise unremarkable. Past Medical History: Significant for end-stage renal disease, hypertension, coronary artery disease , hyperlipidemia, diabetes. Past Surgical History: Cardiac stents, temporal artery biopsy, and I and D of perirectal abscess. Allergies: INCLUDE SULFA AND TETRACYCLINE. Social History: Patient does not smoke. Does not drink. Family History: Noncontributory. Physical Examination: Vital Signs: Shows his blood pressure on pressors is 104/89, pulse rate is 97, respiratory rate is 1 8. General: He is afebrile. He is awake, alert. Head and Neck: No masses. Chest: Clear. Heart: S1, S2. Abdomen: Soft. Extremities: Neurovascularly intact. Neuro: Nonfocal. His dressing is clean, dry, and intact. He had an echo and a chest x-ray which shows pulmonary edema and no pericardial effusion. EF is 47%. Assessment: 68-year-old gentleman with hypotension, pulmonary edema requiring central line for medic ations. Recommendation: We will place central line. Patient understands the risks, benefits, and alternativ es and agrees to proceed. Operative Note: Patient was prepped and draped in usual sterile fashion. Lidocaine 1% infiltrated l ocally in the right IJ region. 18-gauge needle was used to access the right IJ vein. Guidewire was passed. Tract dilated. Seldinger technique was used. Tip of the catheter estimated to be about 17 cm from the skin and then catheter flushed with heparin and packed with heparin with good blood flow and then secured to the skin with 2-0 silk. Sterile dressing was applied. Patient tolerated the pro cedure in stable condition, and chest x-ray has been done which shows no complications. /MODL Voice ID: [id number] Report ID: [id number]
--- NOTE | 2019-06-25 16:12 | P.HP ---
Certification for Inpatient Patient admitted to: Inpatient With expected LOS: >2 Midnights Patient will require the following post-hospital care: None Practitioner: I am a practitioner with admitting privileges, knowledge of patient current condition, hospital course, and medical plan of care. Services: Services provided to patient in accordance with Admission requirements found in Title 42 Section 412.3 of the Code of Federal Regulations Patient History Date of Service: 06/25/19 [facility] Reason for admission: Shortness of breath History of Present Illness: 68-year-old male came to the hospital for outpatient surgery requiring proctoscopy, incision, drainage and debridement of perirectal abscess. Patient with history of end-stage renal disease on hemodialysis, hypertension, CAD, hyperlipidemia, A fib w history of PE, and diabetes mellitus type 2 insulin dependent. After completion of procedure, anesthesia had difficulty in extubating the patient. Patient received 500 cc of fluid during the procedure. Patient remained intubated longer than expected. Chest x-ray showed pulmonary edema. Patient also had some hypotension. The patient was eventually extubated. Patient requiring BiPAP at the moment. I was consulted to admit the patient for further evaluation and treatment. When I came to evaluate the patient, patient appeared to be volume overloaded. Patient remained on BiPAP. Blood pressure remained in the 80s systolic. Case discussed at length with nephrology, cardiology, and pulmonology along with anesthesia. Patient to get 80 Lasix IV. Central line will be placed by surgery to initiate Levophed to maintain blood pressure. Patient will be transferred to ICU for close monitoring and treatment. Stat echocardiogram shows no pericardial effusion. Chest x-ray showed pulmonary edema bilateral. Patient likely with acute on chronic diastolic CHF. Please note Eliquis was held since Monday and Plavix held yesterday. Allergies sulfamethoxazole [From Bactrim] Allergy (Verified 06/25/19 08:15) Rash tetracycline Allergy (Verified 06/25/19 08:15) Rash trimethoprim [From Bactrim] Allergy (Verified 06/25/19 08:15) Rash Home medications list reviewed: Yes Home Medications: Apixaban [Eliquis] 5 mg PO BID 04/23/19 Cholecalciferol (Vitamin D3) [Vitamin D3] 10,000 unit PO DAILY 04/23/19 Clopidogrel Bisulfate [Plavix] 75 mg PO DAILY 04/23/19 Docusate [Colace Cap] 100 mg PO BID 04/23/19 Fexofenadine HCl [Cami Allergy] 180 mg PO DAILY 04/23/19 Gabapentin 300 mg PO TID 04/23/19 Hydrocodone Bit/Acetaminophen [Hydrocodon-Acetaminoph 7.5-325] 1 each PO BIDP PRN 04/23/19 Insulin Aspart [Novolog Flexpen] 40 unit SQ BREAKFAST 04/23/19 Insulin Glargine,Hum.rec.anlog [Lantus Solostar] 40 unit SQ BREAKFAST 04/23/19 Montelukast [Singulair] 10 mg PO DAILY 04/23/19 [place]-3/Dha/Epa/Fish Oil [[place] 3 500 Softgel] 2 each PO BID 04/23/19 Pantoprazole [Protonix Tab] 40 mg PO BID 04/23/19 Rosuvastatin Calcium 10 mg PO DAILY 04/23/19 Sevelamer Carbonate [Renvela] 2,400 mg PO TIDWM 04/23/19 Ciprofloxacin HCl [Cipro 500 MG Tablet] 500 mg PO BID 06/25/19 metroNIDAZOLE [Flagyl] 500 mg PO Q8H 06/25/19 - Past Medical/Surgical History Has patient received pneumonia vaccine in the past: Yes Diabetic: Yes -: End-stage renal disease on hemodialysis, M/W/F -: Atrial fibrillation on chronic anti coagulation therapy -: CAD w cardiac stents -: Hyperlipidemia -: Diabetic neuropathy -: Diabetes mellitus type 2, insulin dependent -: Obstructive sleep apnea -: History of cardiac tamponade -: History of pulmonary embolism -: Pacemaker -: pericarditis -: thoracentesis -: Pacemaker history Psychosocial/ Personal History: Patient is . Lives at home. - Family History Family History: Reviewed- Non-Contributory - Family History Father -: Cancer - Social History Smoking Status: Never smoker Alcohol use: No CD- Drugs: No Caffeine use: Yes Place of Residence: Home Review of Systems General: Weakness, As per HPI Eyes: Unremarkable ENT: Unremarkable Respiratory: Shortness of Breath, SOB with Excertion, As per HPI Cardiovascular: Paroxysmal Noc. Dyspnea, Light Headedness, As per HPI Gastrointestinal: Unremarkable Genitourinary: Unremarkable Musculoskeletal: Unremarkable Integumentary: Unremarkable Neurological: Unremarkable Lymphatics: Unremarkable Physical Examination - Vital Signs Temperature: 97.4 F Blood Pressure: 86/41 Pulse: 93 Respirations: 20 - Physical Exam General: Alert, Oriented x3, Cooperative, Moderate distress HEENT: Atraumatic Neck: Supple Respiratory: Diminished (Bilateral), Crackles/rales (Bilateral) Cardiovascular: Abnormal pulses Gastrointestinal: Normal bowel sounds, Soft and benign, Non-distended Musculoskeletal: No erythema, No tenderness, No warmth Integumentary: No erythema, No warmth, No cyanosis Neurological: Normal speech, Normal strength at 5/5 x4 extr, Normal tone, Normal affect - Studies Laboratory Data (last 24 hrs) 06/25/19 08:35: Sodium 138, Potassium 4.6, BUN 25 H, Creatinine 6.57 H*, Glucose 222 H 06/25/19 08:35: WBC 8.7, Hgb 11.2 L, Hct 33.6 L, Plt Count 270 Microbiology Data (last 24 hrs): 06/25/19 10:40 Wound - Other Gram Stain - Final Assessment and Plan - Plan Impression: Shortness of breath secondary to pulmonary edema likely underlying acute on chronic diastolic CHF Hypotension etiology unknown Status post incision, drainage and debridement of perirectal abscess End-stage renal disease on hemodialysis CAD with prior stent Atrial fibrillation on chronic anti coagulation therapy and history of pacemaker Hypertension Hyperlipidemia Diabetes mellitus type 2 insulin dependent Plan: Shortness of breath secondary to pulmonary edema likely underlying acute on chronic diastolic CHF: Patient admitted to ICU. Stat echocardiogram done. Echo reviewed with cardiology. No pericardial fusion noted. Case discussed at length with nephrology. Patient given IV Lasix 80 mg now. Continue BiPAP. Case discussed with pulmonology. Patient will be transferred to ICU for close monitoring. Patient now on IV Levophed. Status post central line placement by surgery. Nephrology to reassess patient later today. Patient may still require dialysis due to pulmonary edema. Echocardiogram 47%. Will continue monitor the patient closely. Recheck chest x-ray tomorrow. Surgery recommends to continue antibiotic therapy-Cipro/Flagyl. Will restart Eliquis tomorrow. Restart Plavix today. Will provide Lovenox 40 mg x1 today for DVT prophylaxis as discuss with pulmonology. Await further recommendations by specialty care. Plan of care discussed with patient and . Hypotension etiology unknown: Etiology unknown. Will check lab. Will consider obtaining blood cultures. Continue IV Levophed. Will wean off Levophed once blood pressure better controlled. Will monitor closely. Await further recommendations from specialty care. Status post incision, drainage and debridement of perirectal abscess: Status post surgery. Continue to monitor closely. Case discussed with surgery. Will continue with Cipro and Flagyl. Continue with wound care. End-stage renal disease on hemodialysis: Nephrology consulted. Case discussed with nephrology. Patient may require hemodialysis later today. CAD with prior stent: Restart Plavix tomorrow. Plavix had been held yesterday in preparation for procedure today. Atrial fibrillation on chronic anti coagulation therapy and history of pacemaker : Restart Eliquis tomorrow. Will discuss further with cardiology. Hypertension: Hold blood pressure medication from home. Hyperlipidemia: Continue with medication. Diabetes mellitus type 2 insulin dependent: Continue with home medication. Will provide sliding scale and monitor Accu-Cheks. Discharge Plan: Home Plan to discharge in: Greater than 2 days - Advance Directives Does patient have a Living Will: No Does patient have a Durable POA for Healthcare: No - Code Status/Comfort Care Code Status Assessed: Yes (Patient is full code) Time Spent Managing Pts Care (In Minutes): 65
[2019-06-25] MEDS: APIXABAN 5 MG TABLET PO SCH (16:39)
[2019-06-25] MEDS: CLOPIDOGREL 75 MG TABLET PO SCH (16:41)
--- NOTE | 2019-06-25 16:46 | P.CNS ---
Date of Consult: 06/25/19 Primary Care Provider: Dr. Byrne; [facility]Dr. Kaplan Chief Complaint: Resp failure History of Present Illness: Pt is 68 yrs of age S/p I&D perirectal abscess. Deveoped post op resp failure, poss volume overload.CRF on dialysis. Better on BIPAP Allergies sulfamethoxazole [From Bactrim] Allergy (Verified 06/25/19 08:15) Rash tetracycline Allergy (Verified 06/25/19 08:15) Rash trimethoprim [From Bactrim] Allergy (Verified 06/25/19 08:15) Rash Home Medications: Apixaban [Eliquis] 5 mg PO BID 04/23/19 Cholecalciferol (Vitamin D3) [Vitamin D3] 10,000 unit PO DAILY 04/23/19 Clopidogrel Bisulfate [Plavix] 75 mg PO DAILY 04/23/19 Docusate [Colace Cap] 100 mg PO BID 04/23/19 Fexofenadine HCl [Cami Allergy] 180 mg PO DAILY 04/23/19 Gabapentin 300 mg PO TID 04/23/19 Hydrocodone Bit/Acetaminophen [Hydrocodon-Acetaminoph 7.5-325] 1 each PO BIDP PRN 04/23/19 Insulin Aspart [Novolog Flexpen] 40 unit SQ BREAKFAST 04/23/19 Insulin Glargine,Hum.rec.anlog [Lantus Solostar] 40 unit SQ BREAKFAST 04/23/19 Montelukast [Singulair] 10 mg PO DAILY 04/23/19 [place]-3/Dha/Epa/Fish Oil [[place] 3 500 Softgel] 2 each PO BID 04/23/19 Pantoprazole [Protonix Tab] 40 mg PO BID 04/23/19 Rosuvastatin Calcium 10 mg PO DAILY 04/23/19 Sevelamer Carbonate [Renvela] 2,400 mg PO TIDWM 04/23/19 Ciprofloxacin HCl [Cipro 500 MG Tablet] 500 mg PO BID 06/25/19 metroNIDAZOLE [Flagyl] 500 mg PO Q8H 06/25/19 - Past Medical/Surgical History Diabetic: Yes -: End-stage renal disease on hemodialysis, M/W/F -: Atrial fibrillation on chronic anti coagulation therapy -: CAD w cardiac stents -: Hyperlipidemia -: Diabetic neuropathy -: Diabetes mellitus type 2, insulin dependent -: Obstructive sleep apnea -: History of cardiac tamponade -: History of pulmonary embolism -: Pacemaker -: pericarditis -: thoracentesis -: Pacemaker history Psychosocial/ Personal History: Patient is . Lives at home. - Family History Father Medical History: Cancer - Social History Alcohol use: No CD- Drugs: No Caffeine use: Yes Place of Residence: Home Review of Systems General: Weakness Respiratory: Shortness of Breath Gastrointestinal: Nausea Physical Examination Temp Pulse Resp BP Pulse Ox 97.4 F 93 H 20 86/41 L 06/25/19 16:24 06/25/19 16:24 06/25/19 16:24 06/25/19 16:24 General: Alert, Mild distress HEENT: Atraumatic Neck: Supple Respiratory: Crackles/rales (Bialteral), Expiratory wheezes Cardiovascular: No edema, Normal S1 S2 Gastrointestinal: Normal bowel sounds, Soft and benign Musculoskeletal: No clubbing, No swelling Integumentary: No rashes, No breakdown Laboratory Data (last 24 hrs) 06/25/19 08:35: Sodium 138, Potassium 4.6, BUN 25 H, Creatinine 6.57 H*, Glucose 222 H 06/25/19 08:35: WBC 8.7, Hgb 11.2 L, Hct 33.6 L, Plt Count 270 - Problems (1) Respiratory failure Current Visit: Yes Status: Acute Plan: Pt is 68 yrs of age with CAD and CRF admitted for I&D of perrectal abscess deveoped acute respfailure. CXRY poss pulmonary edema. Doign better on BIPAP.Hypotensive. on Levophed. Echo Sat >94%, LAbs rev On AB. DVt prophylaxis Qualifiers: Chronicity: acute
[2019-06-25] MEDS: INSULIN -REGULAR HUMAN 50 UNIT/0.5 ML ML SQ SCH ×2 (16:56→20:56)
[2019-06-25] MEDS ORDERED: METRONIDAZOLE 500mg IVPB 500 MG/100 ML BAG IV SCH (17:00)
[2019-06-25] MEDS: SEVELAMER CARBONATE 800 MG TABLET PO SCH (17:11)
[2019-06-25] MEDS: CIPROFLOXACIN HCL 250 MG TAB PO SCH (17:23)
--- NOTE | 2019-06-25 17:32 | EKG ---
Test Date: 2019-06-25 Test Time: 11:19:35 [employer] Teacher: DANIELA MEASUREMENT RESULTS: Intervals: Rate: 70 MS: 192 QRSD: 170 QT: 456 QTc: 492 [place]: P: 38 MS: 192 QRS: -84 T: 57 INTERPRETIVE STATEMENTS: Electronic ventricular pacemaker Compared to ECG 04/23/2019 09:05:45 Sinus rhythm no longer present First degree AV block no longer present Right bundle-branch block no longer present Left anterior fascicular block no longer present Bifascicular block no longer present Electronically Signed On 06-25-19 17:30:57 CDT by Marin Bradley
[2019-06-25] MEDS ORDERED: POLYETHYL GLY 3350 17 GM/DOSE PO PRN (19:00)
[2019-06-25] MEDS: LIDOCAINE 4% PATCH TOP SCH (19:09)
--- NOTE | 2019-06-25 19:31 | RAD REPORT ---
EXAM DESCRIPTION: RAD - Lumbar Spine - Single View - 06/25/2019 7:12 pm CLINICAL HISTORY: Back pain FINDINGS: Single frontal view of the lumbar spine obtained. Examination is suboptimal No gross abnormalities seen. Lateral view lumbar spine recommended for better evaluation
[2019-06-25 19:57] LABS: CKMB Creatine Kinase MB 3.6 ng/mL (0.3-3.6)
[2019-06-25 20:00] LABS: Troponin I 0.57 ng/mL (0.0-0.045)
[2019-06-25] MEDS: metroNIDAZOLE 500 MG TABLET PO SCH (20:56)
[2019-06-25] MEDS: DOCUSATE NA 100 MG CAP PO SCH (20:57)
[2019-06-25] MEDS: DOCOSAHEXANOIC AC/EPA 1000 MG PO SCH (20:57)
[2019-06-25] MEDS: PANTOPRAZOLE 40MG TABLET PO SCH (20:57)
[2019-06-25] MEDS: GABAPENTIN 300 MG CAP PO SCH (20:57)
[2019-06-25] MEDS ORDERED: HEPARIN 5000 UNIT/ML 1 ML VIAL SQ SCH (21:00)
[2019-06-25] MEDS ORDERED: OMEGA PO SCH (21:00)
[2019-06-25] MEDS ORDERED: DHA PO SCH (21:00)
[2019-06-25] MEDS ORDERED: Ciprofloxacin 200mg IV 200 MG/100 ML IV.SOLN. IV SCH (21:00)
[2019-06-25] MEDS ORDERED: FISH OIL PO SCH (21:00)
[2019-06-25] MEDS ORDERED: EPA PO SCH (21:00)
--- NOTE | 2019-06-25 22:18 | OP ---
Date of Procedure: 06/25/2019 Surgeon: Pepe Kaplan MD Preoperative Diagnosis: Perirectal abscess. Postoperative Diagnosis: Perirectal abscess. Procedure: Exam under anesthesia, rigid proctoscopy, incision and drainage and debridement of perire ctal abscess. Estimated Blood Loss: Minimal. Specimen: Pus. Findings: As above. Anesthesia: General. Complications: None. Disposition: Patient tolerated the procedure in stable condition and taken to Recovery in good gener al condition. Description Of Procedure: Patient was brought to the OR and placed in supine position. General anes thesia was begun. The patient was placed in lithotomy position, prepped and draped in usual sterile fashion. Marcaine 0.5% was infiltrated locally prior to the skin incision, but prior to that, exam u nder anesthesia revealed a perirectal abscess in the posterior midline just to the right of it and th en upon pressing that area, there was a small pus that came out. 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 No other disease was found with the rigid proctoscopy. T hen, a 15 blade was used to make approximately a 3 cm incision over the fluctuant part of the abscess . Patient is on blood thinners. It could not be stopped because of the recent stent placement with Plavix, so cautery was used aggressively to control the bleeding. Pus was evacuated. Loculations we re broken. Necrotic tissue was debrided. Wound was irrigated. Bleeding was then again at most conc piyush and was controlled with cautery. Then, Avitene was placed in the wound with wet-to-dry on top of it. No bleeding was seen. The sphincter was not divided because of the fistula was deep inside. H opefully this would take care of the problem, should it recur. He would need to see a colorectal spe cialist. Sterile dressing was applied. The patient was awakened and taken to Recovery in good gener al condition. Discharge Note: Patient will go to Day Surgery, then home when stable. Disposition: Home. Condition: Stable. Discharge Instructions: Resume home medications and diet. Activity as tolerated. No heavy lifting. Sitz baths q.i.d., high-fiber diet. Follow up in my office in 2 weeks. Call for appointment. Danni brigid has Cipro and Flagyl at home, Tylenol No. 3 one tablet p.o. q.4 p.r.n. pain. Home health if von RUANO/MP Voice ID: [id number] Report ID: [id number]
--- NOTE | 2019-06-25 22:22 | P.CNS ---
Date of Consult: 06/25/19 Reason for Consult: ESRD Requesting Physician: Osorio Sahni Primary Care Provider: Dr. Byrne; [facility] Kaplan Chief Complaint: Resp failure History of Present Illness: 68 yo WM ESRD, HTN presented to the ICU in respiratory failure with hypotension after an I&D of a perirectal abscess. Difficult extubation and currently on Bipap due to pulmonary edema. Limited HPI/ ROS due to respiratory failure. Patient seen and examined in the ICU; at the bedside. Case reviewed with RN and Dr. Sahni. 68-year-old male came to the hospital for outpatient surgery requiring proctoscopy, incision, drainage and debridement of perirectal abscess. Patient with history of end-stage renal disease on hemodialysis, hypertension, CAD, hyperlipidemia, A fib w history of PE, and diabetes mellitus type 2 insulin dependent. After completion of procedure, anesthesia had difficulty in extubating the patient. Patient received 500 cc of fluid during the procedure. Patient remained intubated longer than expected. Chest x-ray showed pulmonary edema. Patient also had some hypotension. The patient was eventually extubated. Patient requiring BiPAP at the moment. Allergies sulfamethoxazole [From Bactrim] Allergy (Verified 06/25/19 08:15) Rash tetracycline Allergy (Verified 06/25/19 08:15) Rash trimethoprim [From Bactrim] Allergy (Verified 06/25/19 08:15) Rash Home medications list reviewed: Yes Home Medications: Apixaban [Eliquis] 5 mg PO BID 04/23/19 Cholecalciferol (Vitamin D3) [Vitamin D3] 10,000 unit PO DAILY 04/23/19 Clopidogrel Bisulfate [Plavix] 75 mg PO DAILY 04/23/19 Docusate [Colace Cap] 100 mg PO BID 04/23/19 Fexofenadine HCl [Cami Allergy] 180 mg PO DAILY 04/23/19 Gabapentin 300 mg PO TID 04/23/19 Hydrocodone Bit/Acetaminophen [Hydrocodon-Acetaminoph 7.5-325] 1 each PO BIDP PRN 04/23/19 Insulin Aspart [Novolog Flexpen] 40 unit SQ BREAKFAST 04/23/19 Insulin Glargine,Hum.rec.anlog [Lantus Solostar] 40 unit SQ BREAKFAST 04/23/19 Montelukast [Singulair] 10 mg PO DAILY 04/23/19 [place]-3/Dha/Epa/Fish Oil [[place] 3 500 Softgel] 2 each PO BID 04/23/19 Pantoprazole [Protonix Tab] 40 mg PO BID 04/23/19 Rosuvastatin Calcium 10 mg PO DAILY 04/23/19 Sevelamer Carbonate [Renvela] 2,400 mg PO TIDWM 04/23/19 Ciprofloxacin HCl [Cipro 500 MG Tablet] 500 mg PO BID 06/25/19 metroNIDAZOLE [Flagyl] 500 mg PO Q8H 06/25/19 - Past Medical/Surgical History Diabetic: Yes -: End-stage renal disease on hemodialysis, M/W/F -: Atrial fibrillation on chronic anti coagulation therapy -: CAD w cardiac stents -: Hyperlipidemia -: Diabetic neuropathy -: Diabetes mellitus type 2, insulin dependent -: Obstructive sleep apnea -: History of cardiac tamponade -: History of pulmonary embolism -: Pacemaker -: pericarditis -: thoracentesis -: Pacemaker history Psychosocial/ Personal History: Patient is . Lives at home. - Family History Father Medical History: Cancer - Social History Alcohol use: No CD- Drugs: No Caffeine use: Yes Place of Residence: Home Review of Systems 10-point ROS is otherwise unremarkable General: Weakness, Malaise Musculoskeletal: Back Pain Neurological: Weakness Physical Examination Temp Pulse Resp BP Pulse Ox 97.4 F 106 H 22 H 108/48 L 95 06/25/19 16:24 06/25/19 19:00 06/25/19 19:00 06/25/19 19:00 06/25/19 19:00 General: Cooperative HEENT: Atraumatic Neck: Supple, No LAD Respiratory: Clear to auscultation bilaterally Cardiovascular: No edema, Regular rate/rhythm Gastrointestinal: Soft and benign, Non-distended, No guarding Musculoskeletal: No clubbing, No contractures Integumentary: No rashes, No cyanosis, Skin lesion Neurological: Normal speech Laboratory Data (last 24 hrs) 06/25/19 19:12: Troponin I 0.57 H* 06/25/19 08:35: Sodium 138, Potassium 4.6, BUN 25 H, Creatinine 6.57 H*, Glucose 222 H 06/25/19 08:35: WBC 8.7, Hgb 11.2 L, Hct 33.6 L, Plt Count 270 Imagings Data: EXAM DESCRIPTION: RAD - Chest Single View - 06/25/2019 2:09 pm CLINICAL HISTORY: Right jugular line placement COMPARISON: June 25 TECHNIQUE: AP portable chest image was obtained 1404 hours . FINDINGS: Motion degraded portable study shows placement of a right jugular central line. Tip is in the mid SVC. No pneumothorax. Extensive airspace opacification present in the right lung field similar to comparison. Endotracheal tube has been removed. Cardiomediastinal silhouette is stable. IMPRESSION: Right jugular central line placement with tip mid SVC. No pneumothorax. Conclusions/Impression: A/ ESRD on HD MWF. HTN currently complicated by hypotension. Diastolic CHF, A/C. Respiratory Failure, acute. CHRSI. DM II with CKD and Polyneuropathy. Anemia in CKD. Back pain. P/ Continue current POC and Medications. Bipap as ordered; wean as tolerated. Pressor therapy to maintain perfusion. Follow up cultures. High dose furosemide ordered. Will consider dialysis as needed. Pain medication as tolerated. No NSAIDs. AM labs. Daily weight. Thank you kindly for the consultation. Greater than 30 min patient care.
[2019-06-25] MEDS ORDERED: dexAMETHasone 10 MG/ML VIAL IV ONE (22:33)
[2019-06-25] MEDS ORDERED: D5W 250 ML IV ONE (23:12)
[2019-06-25] MEDS ORDERED: NOREPINEPHRINE 4 MG/4 ML VIAL ONE (23:12)
[2019-06-25] MEDS ORDERED: PHENOL 1.4% ORAL SPRAY 180ML MM PRN (23:21)
[2019-06-26 04:27] LABS: Absolute Lymphocytes (CBC) 0.7 K/uL (0.7-4.9); Basophils % 0.7 % (0-1.3); Lymphocytes % 4.7 % (15.3-44.8); MPV 9.5 fL (7.6-11.3); RBC Red Blood Cell Count 3.32 M/uL (4.33-5.43)
[2019-06-26] MEDS: HYDROCODONE/APAP 7.5/325 MG TAB PO PRN ×2 (04:33→18:55)
[2019-06-26 04:44] LABS: CKMB Creatine Kinase MB 2.3 ng/mL (0.3-3.6); Troponin I 0.45 ng/mL (0.0-0.045)
[2019-06-26 05:03] LABS: Thyroid Stimulating Hormone 0.761 uIU/mL (0.360-3.740)
[2019-06-26 05:14] LABS: Blood Morphology Comment NOT SEEN (NOT SEEN); Platelet Estimate ADEQ
--- NOTE | 2019-06-26 07:48 | P.PN ---
Subjective Date of Service: 06/26/19 9:30pm-Called to see patient because of back pain. It was severe and he wanted to find out what is lumbar spine film revealed. Patient was also on a Levophed drip for septic shock from a perirectal abscess. Spoke with patient and his . Updated them on clinical condition. Gave him Decadron for back pain. In the setting of septic shock felt this may also be beneficial. Will monitor patient closely through the evening. 5:00am -Labs this morning also revealed hyperkalemia. Patient again hemodialyzed. Patient's Levophed was weaned off through the evening. Will be able to start him on hemodialysis hopefully later today. If unable to dialyze then will go ahead and medicate to get his potassium level decreased. Check lactate and procalcitonin level as well Review of Systems 10-point ROS is otherwise unremarkable Physical Examination - Vital Signs Temperature: 97 F Blood Pressure: 108/72 Pulse: 97 Respirations: 21 Pulse Ox (%): 97 - Physical Exam General: Alert, In no apparent distress, Oriented x3 Respiratory: Clear to auscultation bilaterally, Normal air movement Cardiovascular: Regular rate/rhythm, Normal S1 S2 Gastrointestinal: Normal bowel sounds, Hypoactive, Soft and benign, Non- distended - Studies Laboratory Data (last 24 hrs) 06/26/19 04:00: Sodium 136, Potassium 6.0 H*, BUN 32 H, Creatinine 8.34 H* D, Glucose 352 H, Magnesium 2.0 06/26/19 04:00: WBC 14.1 H D, Hgb 10.2 L, Hct 31.0 L, Plt Count 283 06/26/19 04:00: Troponin I 0.45 H 06/25/19 19:12: Troponin I 0.57 H* 06/25/19 08:35: Sodium 138, Potassium 4.6, BUN 25 H, Creatinine 6.57 H*, Glucose 222 H 06/25/19 08:35: WBC 8.7, Hgb 11.2 L, Hct 33.6 L, Plt Count 270 Microbiology Data (last 24 hrs): 06/25/19 17:11 Blood - Blood Anaerobic Blood Culture - Final 06/25/19 10:40 Wound - Other Gram Stain - Final Assessment & Plan - Problems (Diagnosis) (1) Septic shock Current Visit: Yes Status: Acute (2) Low back pain Current Visit: Yes Status: Acute (3) Perirectal abscess Current Visit: Yes Status: Acute (4) ESRD (end stage renal disease) Current Visit: Yes Status: Acute - Plan Plan: 1. Decadron 2 mg IV x1 2. Wean off Levophed; continue IV antibiotics 3. Hemodialysis per Nephrology 4. Repeat labs to major potassium has improved and also check lactate and procalcitonin level 5. GI and DVT prophylaxis Discharge Plan: Home Plan to discharge in: Greater than 2 days - Advance Directives Does patient have a Living Will: No Does patient have a Durable POA for Healthcare: No - Code Status/Comfort Care Code Status Assessed: Yes Code Status: Full Code Critical Care: No Time Spent Managing PTS Care (In Minutes): 50
--- NOTE | 2019-06-26 07:56 | P.PN ---
Subjective Date of Service: 06/26/19 Primary Care Provider: Dr. Byrne; [facility]-Dr. Kaplan Chief Complaint: Resp failure Subjective: Improving (Well at this time. Patient off Levophed. Blood pressure stable. No significant shortness of breath. On nasal cannula.) Physical Examination - Vital Signs Temperature: 97 F Blood Pressure: 108/72 Pulse: 97 Respirations: 21 Pulse Ox (%): 97 - Physical Exam General: Alert, In no apparent distress, Oriented x3, Cooperative HEENT: Atraumatic Neck: Supple Respiratory: Clear to auscultation bilaterally, Normal air movement Cardiovascular: Normal pulses, Regular rate/rhythm Gastrointestinal: Normal bowel sounds, Soft and benign, Non-distended, No tenderness, No masses, No rebound, No guarding Musculoskeletal: No erythema, No tenderness, No warmth Integumentary: No tenderness/swelling, No erythema, No warmth, No cyanosis Neurological: Normal speech, Normal strength at 5/5 x4 extr, Normal tone, Normal affect - Studies Laboratory Data (last 24 hrs) 06/26/19 04:00: Sodium 136, Potassium 6.0 H*, BUN 32 H, Creatinine 8.34 H* D, Glucose 352 H, Magnesium 2.0 06/26/19 04:00: WBC 14.1 H D, Hgb 10.2 L, Hct 31.0 L, Plt Count 283 06/26/19 04:00: Troponin I 0.45 H 06/25/19 19:12: Troponin I 0.57 H* 06/25/19 08:35: Sodium 138, Potassium 4.6, BUN 25 H, Creatinine 6.57 H*, Glucose 222 H 06/25/19 08:35: WBC 8.7, Hgb 11.2 L, Hct 33.6 L, Plt Count 270 Microbiology Data (last 24 hrs): 06/25/19 17:11 Blood - Blood Anaerobic Blood Culture - Final 06/25/19 10:40 Wound - Other Gram Stain - Final Assessment & Plan Discharge Plan: Home Plan to discharge in: 24 Hours Physician Review Additional Text: Impression: Shortness of breath with acute respiratory failure secondary to pulmonary edema likely underlying acute on chronic diastolic CHF Hypotension etiology unknown Status post incision, drainage and debridement of perirectal abscess End-stage renal disease on hemodialysis CAD with prior stent Atrial fibrillation on chronic anti coagulation therapy and history of pacemaker Hypertension Hyperlipidemia Diabetes mellitus type 2 insulin dependent Hyperkalemia Plan: Shortness of breath with acute respiratory failure secondary to pulmonary edema likely underlying acute on chronic diastolic CHF: Patient has done well. Patient off BiPAP currently on nasal cannula. Patient off Levophed. Blood pressure stable this time. Echocardiogram reviewed yesterday. Ejection fraction around 47% without pericardial effusion. Patient appears to be at his baseline level. Patient likely will get dialysis today. Will discuss with nephrology, cardiology, and pulmonology. Gracie Shankar restarted. Eliquis to restart today. Patient currently on Plavix. Will continue to reassess. Will have physical therapy assess ambulation. Will have foster care social worker arrange for home oxygen and set up home health/physical therapy at discharge. Possible discharge after dialysis later today or in the next 24 hr with clinical improvement. Hypotension etiology unknown: Etiology unknown. Patient off Levophed. Blood pressure stable. Patient reports low blood pressures with dialysis. Will discuss further with nephrology. Status post incision, drainage and debridement of perirectal abscess: Status post surgery. Continue to monitor closely. Case discussed with surgery yesterday. Will continue with Genna. Medication adjusted per renal function. End-stage renal disease on hemodialysis: Nephrology consulted. Case discussed with nephrology yesterday. Patient will receive dialysis today. CAD with prior stent: Plavix restarted yesterday. Atrial fibrillation on chronic anti coagulation therapy and history of pacemaker : Eliquis to be restarted today. Hypertension: Continue to hold blood pressure medication. Hyperlipidemia: Continue with medication. Diabetes mellitus type 2 insulin dependent: Continue with home medication. Will provide sliding scale and monitor Accu-Cheks. Hyperkalemia: Patient received dialysis today. Time Spent Managing Pts Care (In Minutes): 55
--- NOTE | 2019-06-26 07:58 | RAD REPORT ---
EXAM DESCRIPTION: Clemencia Single View06/26/2019 6:52 am CLINICAL HISTORY: Chest pain COMPARISON: June 25, 2019 FINDINGS: Mild improvement in the right lung opacities. No change in the left lung opacities. Heart remains enlarged. Small left pleural effusion Central venous line remains in place IMPRESSION: Mild improvement in the right and no significant change in the left pulmonary opacities which may represent pulmonary edema
[2019-06-26] MEDS ORDERED: INSULIN GLARGINE HUM REC ANLOG 40 UNIT SQ SCH (08:00)
[2019-06-26] MEDS: INSULIN GLARGINE 100 UNITS/ML SQ SCH (08:12)
[2019-06-26] MEDS: INSULIN -REGULAR HUMAN 50 UNIT/0.5 ML ML SQ SCH ×4 (08:12→20:27)
--- NOTE | 2019-06-26 08:23 | ECHO ---
HEIGHT: 5 ft 11 in WEIGHT: 279 lb 1 oz DATE OF STUDY: 06/25/[address]: Osorio Sahni DO 2-DIMENSIONAL: YES M.MODE: YES DOPPLER: YES COLOR FLOW: YES TDS: YES PORTABLE: NO DEFINITY: NO BUBBLE STUDY: NO DIAGNOSIS: SHORTNESS OF BREATH CARDIAC HISTORY: CATHERIZATION: SURGERY: PROSTHETIC VALVE: PACEMAKER: YES MEASUREMENTS (cm) DIASTOLIC (NORMALS) SYSTOLIC (NORMALS) IVSd 1.3 (0.6-1.2) LA Diam 3.5 (1.9-4.0) LVEF 55-60% LVIDd 4.3 (3.5-5.7) LVIDs 3.4 (2.0-3.5) %FS % LVPWd 1.3 (0.6-1.2) Ao Diam 2.7 (2.0-3.7) 2 DIMENSIONAL ASSESSMENT: RIGHT ATRIUM: NORMAL LEFT ATRIUM: NORMAL RIGHT VENTRICLE: PACEMAKER LEFT VENTRICLE: LEFT VENTRICULAR HYPERTROPHY TRICUSPID VALVE: NORMAL MITRAL VALVE: NORMAL PULMONIC VALVE: NORMAL AORTIC VALVE: NORMAL PERICARDIAL EFFUSION: NONE AORTIC ROOT: NORMAL LEFT VENTRICULAR WALL MOTION: NORMAL DOPPLER/COLOR FLOW: MILD TRICUSPID REGURGITATION. COMMENTS: MILD TRICUSPID REGURGITATION. LEFT VENTRICULAR HYPERTROPHY. NO EFFUSION. NORMAL LEFT VENTRICULAR EJECTION FRACTION. PACEMAKER IN RIGH VENTRICULAR APEX. TECHNOLOGIST: Angelica BERNAL
[2019-06-26] MEDS: SEVELAMER CARBONATE 800 MG TABLET PO SCH ×3 (08:54→17:00)
[2019-06-26] MEDS: MONTELUKAST 10 MG TAB PO SCH (08:55)
[2019-06-26] MEDS: metroNIDAZOLE 500 MG TABLET PO SCH ×4 (08:55→20:02)
[2019-06-26] MEDS: ROSUVASTATIN 10 MG TAB PO SCH (08:55)
[2019-06-26] MEDS: VITAMIN D 5,000 UNIT CAP PO SCH (08:55)
[2019-06-26] MEDS: PANTOPRAZOLE 40MG TABLET PO SCH ×2 (08:55→20:02)
[2019-06-26] MEDS: CLOPIDOGREL 75 MG TABLET PO SCH (08:55)
[2019-06-26] MEDS: GABAPENTIN 300 MG CAP PO SCH ×4 (08:55→20:02)
[2019-06-26] MEDS: APIXABAN 5 MG TABLET PO SCH (08:55)
[2019-06-26] MEDS: FEXOFENADINE 180 MG TAB PO SCH (08:56)
[2019-06-26] MEDS: CIPROFLOXACIN HCL 250 MG TAB PO SCH (08:56)
[2019-06-26] MEDS: DOCOSAHEXANOIC AC/EPA 1000 MG PO SCH ×2 (08:57→20:02)
[2019-06-26] MEDS: DOCUSATE NA 100 MG CAP PO SCH ×2 (08:57→20:02)
[2019-06-26] MEDS: APIXABAN 2.5 MG TABLET PO SCH ×2 (09:15→20:02)
[2019-06-26] MEDS ORDERED: NA CHLORIDE 0.9% 1,000 ML IV PRN (09:36)
[2019-06-26] MEDS ORDERED: ALBUMIN HUMAN 25% 50 ML IV SCH (10:00)
[2019-06-26 11:05] LABS: Absolute Lymphocytes (CBC) 0.7 K/uL (0.7-4.9); Basophils % 0.9 % (0-1.3); Hematocrit 27.8 % (39.6-49.0); Lymphocytes % 7.3 % (15.3-44.8); MPV 9.4 fL (7.6-11.3); RBC Red Blood Cell Count 2.99 M/uL (4.33-5.43)
[2019-06-26 11:37] LABS: Potassium 6.4 mmol/L (3.5-5.1)
--- NOTE | 2019-06-26 11:51 | P.PN ---
Subjective Date of Service: 06/26/19 Primary Care Provider: Dr. Byrne; [facility]-Dr. Kaplan Chief Complaint: Resp failure Subjective: Improving (Off vasopressors still requiring BIPAP and O2/ Abnormal CXRY) Review of Systems General: Weakness Respiratory: Shortness of Breath Physical Examination - Vital Signs Temperature: 97 F Blood Pressure: 101/47 Pulse: 93 Respirations: 17 Pulse Ox (%): 96 - Physical Exam General: Alert, In no apparent distress, Oriented x3 HEENT: Atraumatic Neck: Supple Respiratory: Clear to auscultation bilaterally - Studies Laboratory Data (last 24 hrs) 06/26/19 10:50: Sodium 132 L, Potassium 6.4 H*, BUN 40 H, Creatinine 8.86 H*, Glucose 393 H, Magnesium 2.0 06/26/19 10:50: WBC 9.7 D, Hgb 9.2 L, Hct 27.8 L, Plt Count 212 D 06/26/19 04:00: Sodium 136, Potassium 6.0 H*, BUN 32 H, Creatinine 8.34 H* D, Glucose 352 H, Magnesium 2.0 06/26/19 04:00: WBC 14.1 H D, Hgb 10.2 L, Hct 31.0 L, Plt Count 283 06/26/19 04:00: Troponin I 0.45 H 06/25/19 19:12: Troponin I 0.57 H* Microbiology Data (last 24 hrs): 06/25/19 10:40 Wound - Other Gram Stain - Final 06/25/19 17:11 Blood - Blood Anaerobic Blood Culture - Final Assessment & Plan - Problems (Diagnosis) (1) Respiratory failure Current Visit: Yes Status: Acute Plan: Patient is 68 years of age admitted with postoperative respiratory failure chest x-rays abnormal bilateral infiltrate echocardiogram possible diastolic dysfunction awaiting dialysis white count normal resume anticoagulants Qualifiers: Chronicity: acute Physician Review Additional Text: Impression: Shortness of breath with acute respiratory failure secondary to pulmonary edema likely underlying acute on chronic diastolic CHF Hypotension etiology unknown Status post incision, drainage and debridement of perirectal abscess End-stage renal disease on hemodialysis CAD with prior stent Atrial fibrillation on chronic anti coagulation therapy and history of pacemaker Hypertension Hyperlipidemia Diabetes mellitus type 2 insulin dependent Hyperkalemia Plan: Shortness of breath with acute respiratory failure secondary to pulmonary edema likely underlying acute on chronic diastolic CHF: Patient has done well. Patient off BiPAP currently on nasal cannula. Patient off Levophed. Blood pressure stable this time. Echocardiogram reviewed yesterday. Ejection fraction around 47% without pericardial effusion. Patient appears to be at his baseline level. Patient likely will get dialysis today. Will discuss with nephrology, cardiology, and pulmonology. Cipro, Flagyl restarted. Eliquis to restart today. Patient currently on Plavix. Will continue to reassess. Will have physical therapy assess ambulation. Will have social services manager arrange for home oxygen and set up home health/physical therapy at discharge. Possible discharge after dialysis later today or in the next 24 hr with clinical improvement. Hypotension etiology unknown: Etiology unknown. Patient off Levophed. Blood pressure stable. Patient reports low blood pressures with dialysis. Will discuss further with nephrology. Status post incision, drainage and debridement of perirectal abscess: Status post surgery. Continue to monitor closely. Case discussed with surgery yesterday. Will continue with Cipro and Flagyl. Medication adjusted per renal function. End-stage renal disease on hemodialysis: Nephrology consulted. Case discussed with nephrology yesterday. Patient will receive dialysis today. CAD with prior stent: Plavix restarted yesterday. Atrial fibrillation on chronic anti coagulation therapy and history of pacemaker : Eliquis to be restarted today. Hypertension: Continue to hold blood pressure medication. Hyperlipidemia: Continue with medication. Diabetes mellitus type 2 insulin dependent: Continue with home medication. Will provide sliding scale and monitor Accu-Cheks. Hyperkalemia: Patient received dialysis today.
--- NOTE | 2019-06-26 12:48 | PN ---
Date of Progress Note: 06/26/2019 Subjective: Patient is seen and examined. He feels much better at this time. Objective: Vital Signs: Have been reviewed. His blood pressure is improved to 108/72. His other v ital signs have remained stable. He denies any pain or discomfort. General: He appears in no acute distress. HEENT: Atraumatic head. Lungs: Auscultation of lungs revealed occasional crackles at the left lung base. Heart: Auscultation of heart reveals regular rate and rhythm. Abdomen: Obese and nontender. Extremities: Without any evidence of edema. Laboratory Data: Showing sodium of 136, potassium of 6, chloride of 101, BUN of 32, and creatinine o f 8.3. Current Medications: Have been reviewed in detail as well. Impression: 1.End-stage renal disease, on dialysis. 2.Hypotension, which seemed to have been persistent post surgery, currently improving. 3.Hyperkalemia. 4.Shortness of breath with respiratory failure, improving at this time. Ejection fraction 47%. 5.Status post incision and drainage of perirectal abscess. Continue with Cipro and Flagyl. Plan: The patient is overall doing much better at this time. We will plan dialysis today with cauti ous ultrafiltration of about 1-2 L as tolerated with albumin support and also to improve his hyperkal emia. The patient's blood pressure hopefully should be able to support volume removal with albumin s upport. Continue all other medications and he is okay to be discharged from Nephrology standpoint if he tolerates dialysis well. VV/MODL Voice ID: [id number] Report ID: [id number]
--- NOTE | 2019-06-26 13:10 | PN ---
Date of Progress Note: 06/26/2019 Chi was admitted to the ICU yesterday because of hypotension, post-perirectal abscess. He has a history of end-stage renal disease, on hemodialysis, chronic atrial fibrillation, history of pulmo nary embolus on Eliquis. He has a history of pacemaker, dyslipidemia, hypertension, coronary artery disease, diabetes, obesity, sleep apnea and tamponade. Yesterday, the echocardiogram showed a normal ejection fraction without any evidence of pericardial effusion. He was placed on Levophed yesterday . Today, his blood pressure 108/48. His heart rate is 100. His O2 saturation on CPAP is 97%. Remai carla in a paced rhythm. Renal consultation and pulmonary consultation were noted. I think he may nee d to be dialyzed today and is feeling much better. We will continue present management. BETITO/MP Voice ID: [id number] Report ID: [id number]
--- NOTE | 2019-06-26 14:58 | PN ---
Date of Progress Note: 06/26/2019 Subjective: Patient is awake and alert, no complaints. No significant bleeding in the dressing. H and H have been stable. He has hyperkalemia and uremia, requiring dialysis later today. Objective: His vitals are stable. He is afebrile. He is off the pressors. The dressing is clean, dry, and intact. Assessment: Status post incision and drainage, debridement of perirectal abscess with hypotension, p ulmonary edema. Recommendations: As his medical issues appear to be improving, after dialysis, patient is cleared fo r discharge from Surgery standpoint. Discharge instructions were given regarding the wound care and follow up in my office as ordered. /MODL Voice ID: [id number] Report ID: [id number]
--- NOTE | 2019-06-26 15:40 | CON ---
Date of Consultation: 06/25/2019 Reason For Consultation: Shortness of breath and hypotension and history of pacemaker. History Of Present Illness: Mr. Mireles is a 68-year-old white male, who was actually admitted as an outpatient initially for surgery on a perirectal abscess by Dr. Kaplan. Postoperatively, he was h ypotensive and short of breath with an x-ray showing pulmonary edema versus alveolitis, I was consult ed. Mr. Mireles did not have any chest pain or syncope or palpitation. His EKG showed a paced rh ythm. He sees Dr. Rios at [facility] from a cardiac standpoint. He has had a history of at rial fibrillation that is chronic, for which he takes Eliquis. He also has had a history of CAD, sta tus post stent in the past. He has had a history of pulmonary embolus in the past, diabetes, hyperte nsion, and end-stage renal disease, on hemodialysis. Allergies: TETRACYCLINE AND SULFA. Review of Systems: Negative. Social History: Negative. Family History: Noncontributory. Medications: At home include Eliquis, Crestor, Plavix, Neurontin, insulin, and Flagyl. Physical Examination: Vital Signs: When I saw him, his blood pressure 88/65, heart rate is 106, sinus tach. Previous EKG showed a paced rhythm. HEENT: Negative. Neck: Supple. No bruit. Chest: Revealed rales bilaterally. Cardiac: Revealed paced rhythm. No murmurs, gallops, or rubs. Abdomen: Obese, but benign. Extremities: Reveal no clubbing, cyanosis, or edema. Diagnostic Data: Creatinine was 6.57. Procalcitonin was 0.99. Glucose was 248. O2 saturation is 9 7% on CPAP and BiPAP. Chest x-ray showed pulmonary edema versus alveolitis. EKG showed paced rhythm . Impression And Plan: 1.Hypotension. Patient may be hypotensive secondary to acute on chronic diastolic congestive heart failure. I agree with antibiotics. I agree with Levophed. I agree with Pulmonary consultation and Renal consultation. I agree with IV Lasix, although I am not so sure that he has been aware that his creatinine is 6.57. He may need to be dialyzed. Nevertheless, we need to get his blood pressure up first and I think the Levophed is the way to go. 2.History of atrial fibrillation and pulmonary emboli, on Eliquis. I think we need to continue that . 3.History of sleep apnea. 4.History of tamponade in the past. I would like to get another echocardiogram to rule out pericard ial effusion. 5.Obesity. 6.History of coronary artery disease status post stent. 7.History of dyslipidemia. 8.History of end-stage renal disease, on hemodialysis. I will continue to follow Mr. Mireles. W e will see what the echo shows. We will see what Pulmonary and Renal consultations advise. Continue Levophed. Continue antibiotics. BETITO/MP Voice ID: [id number] Report ID: [id number]
[2019-06-26] MEDS ORDERED: LOPERAMIDE HCL 2 MG CAPSULE PO ONE (22:16)
[2019-06-27 05:22] LABS: Absolute Lymphocytes (CBC) 0.9 K/uL (0.7-4.9); Basophils % 0.7 % (0-1.3); Hematocrit 25.3 % (39.6-49.0); Lymphocytes % 14.1 % (15.3-44.8); MPV 9.5 fL (7.6-11.3); RBC Red Blood Cell Count 2.74 M/uL (4.33-5.43)
[2019-06-27 05:37] VITALS: BMI 37.8
[2019-06-27 05:45] LABS: Magnesium 1.9 mg/dL (1.8-2.4); Potassium 4.5 mmol/L (3.5-5.1)
--- NOTE | 2019-06-27 07:02 | RAD REPORT ---
EXAM DESCRIPTION: RAD - Chest Single View - 06/27/2019 6:25 am CLINICAL HISTORY: Pulmonary edema, shortness of breath, pleural effusions COMPARISON: June 26 TECHNIQUE: AP portable chest image was obtained [id number] hours . FINDINGS: There has been substantial clearing of the alveolar opacities in both lung pettit. There i s some remnant opacification in the mid left lung field and right base. Left costophrenic angle is cu t off of the film. No progressive lung parenchymal process seen. Right-sided jugular central line rem ains in place. Heart size within normal limits for body habitus and portable technique. No pneumothorax or enlargin g pleural effusion. IMPRESSION: Substantial but incomplete clearing of airspace disease throughout both lung pettit.
[2019-06-27] MEDS: SEVELAMER CARBONATE 800 MG TABLET PO SCH ×3 (08:00→14:00)
[2019-06-27] MEDS: LIDOCAINE 4% PATCH TOP SCH (08:06)
[2019-06-27] MEDS: INSULIN -REGULAR HUMAN 50 UNIT/0.5 ML ML SQ SCH ×2 (08:06→11:54)
[2019-06-27] MEDS: DOCOSAHEXANOIC AC/EPA 1000 MG PO SCH (08:06)
[2019-06-27] MEDS: CLOPIDOGREL 75 MG TABLET PO SCH (08:07)
[2019-06-27] MEDS: GABAPENTIN 300 MG CAP PO SCH (08:08)
[2019-06-27] MEDS: ROSUVASTATIN 10 MG TAB PO SCH (08:08)
[2019-06-27] MEDS: MONTELUKAST 10 MG TAB PO SCH (08:08)
[2019-06-27] MEDS: CIPROFLOXACIN HCL 250 MG TAB PO SCH (08:08)
[2019-06-27] MEDS: APIXABAN 2.5 MG TABLET PO SCH (08:08)
[2019-06-27] MEDS: metroNIDAZOLE 500 MG TABLET PO SCH (08:08)
[2019-06-27] MEDS: VITAMIN D 5,000 UNIT CAP PO SCH (08:08)
[2019-06-27] MEDS: PANTOPRAZOLE 40MG TABLET PO SCH (08:08)
[2019-06-27] MEDS: FEXOFENADINE 180 MG TAB PO SCH (08:08)
[2019-06-27] MEDS: INSULIN GLARGINE 100 UNITS/ML SQ SCH (08:09)
[2019-06-27] MEDS: DOCUSATE NA 100 MG CAP PO SCH (08:30)
[2019-06-27 08:59] VITALS: O2SAT 99
--- NOTE | 2019-06-27 09:40 | P.DS ---
Admission Date: 06/25/19 Discharge Date: 06/27/19 Primary Care Provider: Dr. Byrne; [facility]-Dr. Kaplan Disposition: DC HOME/HOME HEALTH CARE Discharge Condition: GOOD Reason for Admission: Resp failure Consultations: Cardiology-Dr. Solorzano Pulmonary-Dr. Russo Nephrology-Dr. Byrne Surgery-Dr. Kaplan Procedures: CXR: COMPARISON: May 2019 Moderate to marked right alveolar opacities. Mild to moderate left alveolar opacities. The heart is mildly enlarged. Pacemaker in place IMPRESSION: Moderate to marked right and [id number] left alveolar opacities probably pulmonary edema. A component of aspiration pneumonitis may also be present ECHO: EF 55% LEFT VENTRICULAR WALL MOTION: NORMAL DOPPLER/COLOR FLOW: MILD TRICUSPID REGURGITATION. COMMENTS: MILD TRICUSPID REGURGITATION. LEFT VENTRICULAR HYPERTROPHY. NO EFFUSION. NORMAL LEFT VENTRICULAR EJECTION FRACTION. PACEMAKER IN RIGH VENTRICULAR APEX. Follow up CXR: COMPARISON: June 26 TECHNIQUE: AP portable chest image was obtained 0619 hours . FINDINGS: There has been substantial clearing of the alveolar opacities in both lung pettit. There is some remnant opacification in the mid left lung field and right base. Left costophrenic angle is cut off of the film. No progressive lung parenchymal process seen. Right-sided jugular central line remains in place. Heart size within normal limits for body habitus and portable technique. No pneumothorax or enlarging pleural effusion. IMPRESSION: Substantial but incomplete clearing of airspace disease throughout both lung pettit. Medical Problem List: Shortness of breath with acute respiratory failure secondary to pulmonary edema likely underlying acute on chronic diastolic CHF status post surgery Hypotension likely related to recent surgery/anesthesia Status post incision, drainage and debridement of perirectal abscess End-stage renal disease on hemodialysis CAD with prior stent Anemia of chronic disease Atrial fibrillation on chronic anti coagulation therapy and history of pacemaker Hyperlipidemia Diabetes mellitus type 2 insulin dependent GERD Hyperkalemia, resolved Diabetic neuropathy Obstructive sleep apnea on CPAP Obesity, BMI 37.8 Brief History of Present Illness: 68-year-old male came to the hospital for outpatient surgery requiring proctoscopy, incision, drainage and debridement of perirectal abscess. Patient with history of end-stage renal disease on hemodialysis, hypertension, CAD, hyperlipidemia, A fib w history of PE, and diabetes mellitus type 2 insulin dependent. After completion of procedure, anesthesia had difficulty in extubating the patient. Patient received 500 cc of fluid during the procedure. Patient remained intubated longer than expected. Chest x-ray showed pulmonary edema. Patient also had some hypotension. The patient was eventually extubated. Patient requiring BiPAP at the moment. I was consulted to admit the patient for further evaluation and treatment. When I came to evaluate the patient, patient appeared to be volume overloaded. Patient remained on BiPAP. Blood pressure remained in the 80s systolic. Case discussed at length with nephrology, cardiology, and pulmonology along with anesthesia. Patient to get 80 Lasix IV. Central line will be placed by surgery to initiate Levophed to maintain blood pressure. Patient will be transferred to ICU for close monitoring and treatment. Stat echocardiogram shows no pericardial effusion. Chest x-ray showed pulmonary edema bilateral. Patient likely with acute on chronic diastolic CHF. Please note Eliquis was held since Monday and Plavix held yesterday. Hospital Course: Patient admitted to the hospital due to shortness of breath. Patient with history of end-stage renal disease on hemodialysis, CAD with prior stent, atrial fibrillation on chronic anti coagulation therapy and pacemaker, hyperlipidemia, diabetes mellitus type 2 insulin-dependent and hypertension. Patient had outpatient surgery requiring proctoscopy, incision, drainage and debridement of her rectal abscess. Post surgery, anesthesia had difficulty extubating the patient. X-ray showed pulmonary edema. Patient was eventually extubated but required BiPAP. Patient also had hypotension likely related to medication. Patient was transferred to ICU for treatment. Patient continued with BiPAP. Patient was also placed on IV Levophed. Patient responded well to IV Lasix and eventually dialysis. Stat echocardiogram showed no pericardial effusion. Normal ejection fraction when noted. Acute on chronic diastolic CHF was suspected. Nephrology, cardiology and pulmonology were consulted. During the course of the stay his condition improved. Patient was weaned off Levophed and BiPAP. Patient continued with dialysis with improvement. Repeat x-rays shows significant improvement in pulmonary edema. Patient also had hyperkalemia. This resolved with dialysis. At discharge patient still requiring oxygen. Blood pressures have remained stable of blood pressure medication. At discharge home oxygen will be arranged to maintain sats above 93 %. Home health and physical therapy will also be arranged. Will continue to hold blood pressure medication at discharge. Patient will continue with dialysis every Monday, Monday and Monday. Recommend follow up with nephrology within 1 week to follow up this hospitalization. Patient will continue with his medications of vitamin-D 16723 units daily and Renvela 2400 mg 3 times a day. Patient may require midodrine in the future if blood pressure remains low especially during dialysis or at home. Will discuss with nephrology prior to discharge. At discharge patient will continue with wound care for the pararectal abscess. Patient will continue with antibiotic therapy as prescribed by surgery, this includes Cipro and Flagyl. Patient with atrial fibrillation on chronic anti coagulation therapy and history of pacemaker. Patient also has a history of CAD with prior stent. At discharge he will continue with Plavix 75 mg daily and Eliquis 2.5 mg 1 pill twice daily. Recommend a follow up with cardiology in 1-2 weeks to follow up this hospitalization. Patient with hyperlipidemia. At discharge he will continue with this medications-Crestor 10 mg daily and omega-3 medication 2 pills twice daily. Patient with diabetes mellitus type 2 insulin-dependent. This has remained stable. At discharge he will continue with his home medications-Lantus 40 units subcu daily and NovoLog as previous. Recommendation is to maintain blood sugars less than 140 fasting and less than 200 after meals. Further adjustment to be done by his PCP. Patient with history of obstructive sleep apnea. Patient will continue with CPAP at home. Patient with GERD. Patient will continue with his medication of Protonix 40 mg 1 pill twice daily. Patient with anemia of chronic disease. Recommend to recheck lab-CBC in 1-2 weeks to monitor his progress. This will be followed and addressed by nephrology. Patient with diabetic neuropathy. At discharge he will continue with his medication of gabapentin 300 mg 3 times a day and hydrocodone as needed for pain. Patient with perirectal abscess status post incision/drainage and debridement. surgery follow the patient during the course of his stay. Prior to discharge was taught wound care. Patient will continue with current wound care. At discharge he will continue with antibiotic therapy-Cipro 250 mg daily and Flagyl 500 mg 3 times a day for 7 days. Vital Signs/Physical Exam: Temp Pulse Resp BP Pulse Ox 98 F 89 18 105/42 L 97 06/27/19 04:00 06/27/19 07:00 06/27/19 07:00 06/27/19 07:00 06/27/19 07:00 General: Alert, In no apparent distress, Oriented x3, Cooperative HEENT: Atraumatic Neck: Supple Respiratory: Clear to auscultation bilaterally, Normal air movement Cardiovascular: Normal pulses, Regular rate/rhythm Gastrointestinal: Normal bowel sounds, Soft and benign, Non-distended, No tenderness, No masses, No rebound, No guarding Musculoskeletal: No erythema, No tenderness, No warmth Integumentary: No tenderness/swelling, No erythema, No warmth, No cyanosis Neurological: Normal speech, Normal strength at 5/5 x4 extr, Normal tone, Normal affect Laboratory Data at Discharge: WBC 6.5 K/uL (4.3-10.9) D 06/27/19 04:45 Hgb 8.8 g/dL (13.6-17.9) L 06/27/19 04:45 Hct 25.3 % (39.6-49.0) L 06/27/19 04:45 Plt Count 180 K/uL (152-406) 06/27/19 04:45 Sodium 140 mmol/L (136-145) 06/27/19 04:45 Potassium 4.5 mmol/L (3.5-5.1) 06/27/19 04:45 BUN 25 mg/dL (7-18) H 06/27/19 04:45 Creatinine 6.52 mg/dL (0.55-1.3) H* D 06/27/19 04:45 Glucose 219 mg/dL (74-106) H 06/27/19 04:45 Magnesium 1.9 mg/dL (1.8-2.4) 06/27/19 04:45 Troponin I 0.45 ng/mL (0.0-0.045) H 06/26/19 04:00 Home Medications: Apixaban [Eliquis *] 2.5 mg PO BID 04/23/19 Cholecalciferol (Vitamin D3) [Vitamin D3] 10,000 unit PO DAILY 04/23/19 Clopidogrel Bisulfate [Plavix*] 75 mg PO DAILY 04/23/19 Docusate [Colace Cap*] 100 mg PO BID 04/23/19 Fexofenadine HCl [Cami Allergy] 180 mg PO DAILY 04/23/19 Gabapentin 300 mg PO TID 04/23/19 Hydrocodone Bit/Acetaminophen [Hydrocodon-Acetaminoph 7.5-325] 1 each PO BIDP PRN 04/23/19 Insulin Aspart [Novolog Flexpen] 40 unit SQ BREAKFAST 04/23/19 Insulin Glargine,Hum.rec.anlog [Lantus Solostar] 40 unit SQ BREAKFAST 04/23/19 Montelukast [Singulair*] 10 mg PO DAILY 04/23/19 Eldorado-3/Dha/Epa/Fish Oil [Eldorado 3 500 Softgel] 2 each PO BID 04/23/19 Pantoprazole [Protonix Tab*] 40 mg PO BID 04/23/19 Rosuvastatin Calcium 10 mg PO DAILY 04/23/19 Sevelamer Carbonate [Renvela*] 2,400 mg PO TIDWM 04/23/19 metroNIDAZOLE [Flagyl*] 500 mg PO Q8H 06/25/19 Ciprofloxacin HCl [Cipro 250 MG Tablet*] 250 mg PO DAILY #7 tab 06/27/19 New Medications: Ciprofloxacin HCl [Cipro 250 MG Tablet*] 250 mg PO DAILY #7 tab Patient Discharge Instructions: 1. Patient will follow up with his PCP in 1 week to follow up hospitalization. 2. Patient admitted to the hospital due to shortness of breath. Patient with history of end-stage renal disease on hemodialysis, CAD with prior stent, atrial fibrillation on chronic anti coagulation therapy and pacemaker, hyperlipidemia, diabetes mellitus type 2 insulin-dependent and hypertension. Patient had outpatient surgery requiring proctoscopy, incision, drainage and debridement of her rectal abscess. Post surgery, anesthesia had difficulty extubating the patient. X-ray showed pulmonary edema. Patient was eventually extubated but required BiPAP. Patient also had hypotension likely related to medication. Patient was transferred to ICU for treatment. Patient continued with BiPAP. Patient was also placed on IV Levophed. Patient responded well to IV Lasix and eventually dialysis. Stat echocardiogram showed no pericardial effusion. Normal ejection fraction when noted. Acute on chronic diastolic CHF was suspected. Nephrology, cardiology and pulmonology were consulted. During the course of the stay his condition improved. Patient was weaned off Levophed and BiPAP. Patient continued with dialysis with improvement. Repeat x-rays shows significant improvement in pulmonary edema. Patient also had hyperkalemia. This resolved with dialysis. At discharge patient still requiring oxygen. Blood pressures have remained stable of blood pressure medication. At discharge home oxygen will be arranged to maintain sats above 93%. Home health and physical therapy will also be arranged. Will continue to hold blood pressure medication at discharge. Patient will continue with dialysis every Monday, Monday and Monday. Recommend follow up with nephrology within 1 week to follow up this hospitalization. Patient will continue with his medications of vitamin-D 00439 units daily and Renvela 2400 mg 3 times a day. Patient may require midodrine in the future if blood pressure remains low especially during dialysis or at home. Nephrology to further address and monitor. At discharge patient will continue with wound care for the pararectal abscess. Patient will continue with antibiotic therapy as prescribed by surgery, this includes Cipro and Flagyl. 3. Patient with atrial fibrillation on chronic anti coagulation therapy and history of pacemaker. Patient also has a history of CAD with prior stent. At discharge he will continue with Plavix 75 mg daily and Eliquis 2.5 mg 1 pill twice daily. Recommend a follow up with cardiology in 1-2 weeks to follow up this hospitalization. 4. Patient with hyperlipidemia. At discharge he will continue with this medications-Crestor 10 mg daily and omega-3 medication 2 pills twice daily. 5. Patient with diabetes mellitus type 2 insulin-dependent. This has remained stable. At discharge he will continue with his home medications-Lantus 40 units subcu daily and NovoLog as previous. Recommendation is to maintain blood sugars less than 140 fasting and less than 200 after meals. Further adjustment to be done by his PCP. 6. Patient with history of obstructive sleep apnea. Patient will continue with CPAP at home. 7. Patient with GERD. Patient will continue with his medication of Protonix 40 mg 1 pill twice daily. 8. Patient with anemia of chronic disease. Recommend to recheck lab-CBC in 1-2 weeks to monitor his progress. This will be followed and addressed by nephrology. 9. Patient with diabetic neuropathy. At discharge he will continue with his medication of gabapentin 300 mg 3 times a day and hydrocodone as needed for pain. 10. Patient with perirectal abscess status post incision/drainage and debridement. surgery follow the patient during the course of his stay. Prior to discharge was taught wound care. Patient will continue with current wound care. At discharge he will continue with antibiotic therapy-Cipro 250 mg daily and Flagyl 500 mg 3 times a day for 7 days. Diet: Renal Activity: Fall precautions Time spent managing pt's care (in minutes): 55
--- NOTE | 2019-06-27 13:02 | PN ---
Mr. Mireles has been followed for hypotension since 06/25/2019. He has a history of pacemaker catina cement. He had come in with a perirectal abscess. Had an echocardiogram showing a normal ejection f raction without any pericardial effusion. His hypotension required Levophed that he has been off now for about 36 hours. His last blood pressure was 95/48. Last glucose was 223. He is on CPAP 2 L wi th 100% O2 saturation. Last hemoglobin is 8.8. He was dialyzed on 06/26/2019. He is in good spirit s. Chest x-ray showed marked improvement on the right side of his lung. The left side was same. Th e patient is on Eliquis for atrial fibrillation. I feel comfortable with him going home and he is to follow up with Dr. Rios at [facility] or he can come see me in the office if he wishes. BETITO/MP Voice ID: [id number] Report ID: [id number]
[2019-06-27 15:13] VITALS: BP 128/61
[2019-06-27 15:31] VITALS: TEMP 97.9
--- NOTE | 2019-06-27 16:17 | PN ---
Date of Progress Note: 06/27/2019 Subjective: Patient is awake, alert. No complaint. He has a little bit of nausea and low blood pre ssure after dialysis. Therefore, he was kept in overnight for observation. Today, he is doing well. Vital signs stable, afebrile. Dressing clean, dry, intact. Assessment: Status post incision and drainage of perirectal abscess. Recommendation: Clear from surgery point for discharge. Follow up in my office. Discharge instruct ions given. ALDEN/MP Voice ID: [id number] Report ID: [id number]
--- NOTE | 2019-06-27 20:32 | PN ---
Date of Progress Note: 06/27/2019 Subjective: Patient was seen and examined. He is doing much better. Blood pressure still continued to be a little low, but improved. He is feeling tired, but otherwise doing okay. He had dialysis y and 1.9 L was removed. Laboratory Data: Has been reviewed. He has some mild anemia with hemoglobin of 8.8 and hematocrit o f 25.3. Current Medications: Have been reviewed in detail. Impression: 1.End-stage renal disease, on dialysis. 2.Rectal abscess status post incision and drainage. 3.Hypotension. 4.Anemia secondary to chronic renal insufficiency. 5.Debility and weakness. Plan: Patient is overall doing okay. We will hold off on any midodrine at this time. We will start as outpatient if needs to. His respiratory status seems to be doing okay with ultrafiltration. We will continue ultrafiltration as outpatient. Continue all other medications and we will monitor anem ia closely. SHERI/MP Voice ID: [id number] Report ID: [id number]
== END 2019-06-27 15:10 | disposition home health service (06) | DRG 981 ==
LOC: OR 08:40 → 3RD-ICU 13:06 → OBSVTOIN 13:58
PROVIDERS: ADMIT Surgery; ATTEND Surgery
PROC: 5A09457 Assistance with Respiratory Ventilation, 24-96 Consecutive Hours, Continuous Positive Airway Pressure (ICD-10-PCS; 2019-06-25)
PROC: 0DJD8ZZ Inspection of Lower Intestinal Tract, Via Natural or Artificial Opening Endoscopic (ICD-10-PCS; 2019-06-25)
PROC: 0D9P0ZZ Drainage of Rectum, Open Approach (ICD-10-PCS; principal; 2019-06-25 10:00)
DX: J95.821 Acute postprocedural respiratory failure (principal); I50.33 Acute on chronic diastolic (congestive) heart failure; N18.6 End stage renal disease; I13.2 Hypertensive heart and chronic kidney disease with heart failure and with stage 5 chronic kidney disease, or end stage renal disease; K61.1 Rectal abscess; J81.1 Chronic pulmonary edema; I48.20 Chronic atrial fibrillation, unspecified; E11.22 Type 2 diabetes mellitus with diabetic chronic kidney disease; Y69 Unspecified misadventure during surgical and medical care; E87.5 Hyperkalemia; I95.81 Postprocedural hypotension; E78.5 Hyperlipidemia, unspecified; E87.70 Fluid overload, unspecified; I25.10 Atherosclerotic heart disease of native coronary artery without angina pectoris; D63.1 Anemia in chronic kidney disease; R53.81 Other malaise; E11.40 Type 2 diabetes mellitus with diabetic neuropathy, unspecified; G47.33 Obstructive sleep apnea (adult) (pediatric); Z99.2 Dependence on renal dialysis; Z79.01 Long term (current) use of anticoagulants; Z86.711 Personal history of pulmonary embolism; Z99.81 Dependence on supplemental oxygen; Z79.4 Long term (current) use of insulin
CPT/HCPCS: 36415; 71045; 72020; 80048; 82550; 82553; 82947; 83605; 83735; 84145; 84439; 84443; 84484; 85025; 87040; 87070; 87205; 90935; 93005; 93306; 94002; 94660; 94760; 97112; 97116; 97161; G0378; J1100; J1170; J1644; J1815; J1940; J2250; J2370; J2405; J2704; J2710; J3010; J7040; J7060; P9047

== ENCOUNTER 2019-07-16 20:39 | Observation (INO) | payer OTHER, MEDICARE ==
--- OUTSIDE RECORDS SUMMARY | 2019-07-16 20:46 | XMS REPORT ---
:1950 [facility] Address [address] [place] [address] Care Team Providers Name Role Phone MALCOLM [...] (BEAKER) (test 279 mg/dL 70-110 TESTED AT [facility] [address] [facility] aagz=1104) [facility] [address] CBC W/PLT COUNT & AUTO [id number] 11:50:00 Test Item Value Reference Range Comments WHITE BLOOD CELL COUNT (BEAKER) (test hljb=479) 10.1 K/ L 3.5-10.5 RED BLOOD CELL COUNT (BEAKER) (test bmiw=109) 2.96 M/ L 4.63-6.08 HEMOGLOBIN (BEAKER) (test usyr=278) 9.3 GM/DL 13.7-17.5 HEMATOCRIT (BEAKER) (test kgzq=180) 28.6 % 40.1-51.0 MEAN CORPUSCULAR VOLUME (BEAKER) (test tqpj=510) 96.6 fL 79.0-92.2 MEAN CORPUSCULAR HEMOGLOBIN (BEAKER) (test 31.4 pg 25.7-32.2 yicf=173) MEAN CORPUSCULAR HEMOGLOBIN CONC (BEAKER) (test 32.5 GM/DL 32.3-36.5 ckqp=465) RED CELL DISTRIBUTION WIDTH (BEAKER) (test 15.3 % 11.6-14.4 nitq=624) PLATELET COUNT (BEAKER) (test iylv=387) 130 K/CU MM 150-450 MEAN PLATELET VOLUME (BEAKER) (test pgzc=838) 12.1 fL 9.4-12.4 NUCLEATED RED BLOOD CELLS (BEAKER) (test 0 /100 WBC 0-0 aevh=231) NEUTROPHILS RELATIVE PERCENT (BEAKER) (test 80 % mwjh=934) LYMPHOCYTES RELATIVE PERCENT (BEAKER) (test 7 % sqlm=894) MONOCYTES RELATIVE PERCENT (BEAKER) (test 7 % nsew=619) EOSINOPHILS RELATIVE PERCENT (BEAKER) (test 2 % nnac=961) BASOPHILS RELATIVE PERCENT (BEAKER) (test 0 % nfnu=494) NEUTROPHILS ABSOLUTE COUNT (BEAKER) (test 8.06 K/ L 1.78-5.38 suut=932) LYMPHOCYTES ABSOLUTE COUNT (BEAKER) (test 0.70 K/ L 1.32-3.57 njnb=950) MONOCYTES ABSOLUTE COUNT (BEAKER) (test 0.75 K/ L 0.30-0.82 lyeh=524) EOSINOPHILS ABSOLUTE COUNT (BEAKER) (test 0.15 K/ L 0.04-0.54 gdyy=634) BASOPHILS ABSOLUTE COUNT (BEAKER) (test 0.02 K/ L 0.01-0.08 bisx=081) IMMATURE GRANULOCYTES-RELATIVE PERCENT (BEAKER) 4 % 0-1 (test uzgd=4025) BASIC METABOLIC [id number] 10:56:00 Test Item Value Reference Range Comments SODIUM (BEAKER) (test 134 meq/L 136-145 qpog=532) POTASSIUM (BEAKER) (test 5.3 meq/L 3.5-5.1 vyml=240) CHLORIDE (BEAKER) (test 97 meq/L 98-107 ropz=329) CO2 (BEAKER) (test 22 meq/L 22-29 ggtb=164) BLOOD UREA NITROGEN 81 mg/dL 7-21 (BEAKER) (test cnvh=285) CREATININE (BEAKER) (test 8.20 mg/dL 0.57-1.25 dvjn=956) GLUCOSE RANDOM (BEAKER) 365 mg/dL 70-105 (test bdtc=695) CALCIUM (BEAKER) (test 8.4 mg/dL 8.4-10.2 exab=621) EGFR (BEHÉCTOR) (test 7 mL/min/1.73 sq m ESTIMATED GFR IS NOT xpmk=3175) ACCURATE CREATININE CLEARANCE IN PREDICTING GLOMERULAR FILTRATION RATE. ESTIMATED GFR IS NOT APPLICABLE FOR DIALYSIS PATIENTS. RAD, CHEST, 1 VIEW, NON [id number] 08:58:00Reason for exam:->Post device placementShould this be [...] Last Verified Date/Time: 04/30/2019 08:58:17 Reading Location: [facility] Reading Room POCT-GLUCOSE [id number] 08:16:00 Test Item Value Reference Range Comments POC-GLUCOSE METER (EMMA) 342 mg/dL 70-110 TESTED AT [address] (test glnd=9088) [facility] [address] RAD, CHEST, 1 VIEW, NON [id number] 06:14:00Reason for exam:->post device placementShould this be [...] Vieyra Verified Date/Time: 04/30/2019 06:14:19 Reading Location: [address] Reading Room POCT-GLUCOSE [id number] 01:09:00 Test Item Value Reference Range Comments POC-GLUCOSE METER (BEAKER) 187 mg/dL 70-110 TESTED AT [address] (test yust=0918) [facility] [address] POCT-GLUCOSE [id number] 20:12:00 Test Item Value Reference Range Comments POC-GLUCOSE METER (BEAKER) 175 mg/dL 70-110 TESTED AT [address] (test wqnr=5224) [facility] [address] POCT-GLUCOSE [id number] 17:34:00 Test Item Value Reference Range Comments POC-GLUCOSE METER (BEAKER) 88 mg/dL 70-110 TESTED AT [address] (test amoe=6520) [place] [id number] POCT-GLUCOSE [id number] 13:28:00 Test Item Value Reference Range Comments POC-GLUCOSE METER (BEAKER) 131 mg/dL 70-110 TESTED AT [address] (test drlj=2965) [place] [address] RHEUMATOID FACTOR AB, REFLEX TO [id number] 11:35:00 Test Item Value Reference Range Comments RHEUMATOID FACTOR (BEAKER) (test pjey=652) Positive RHEUMATOID FACTOR [id number] 11:35:00 Test Item Value Reference Range Comments RHEUMATOID FACTOR TITER (BEAKER) (test lmjd=8677) :4 ANTI-NUCLEAR ANTIBODY (MARIAN)2019-04-29 10:25:00 Test Item Value Reference Range Comments ANTI-NUCLEAR ANTIBODY (MARIAN) (BEAKER) (test Negative Negative jjti=887) Test performed by IFA method.Test performed by IFA method.BASIC METABOLIC [id number] 09:43:00 Test Item Value Reference Range Comments SODIUM (BEAKER) (test 132 meq/L 136-145 bnvb=583) POTASSIUM (BEAKER) (test 5.1 meq/L 3.5-5.1 kxct=446) CHLORIDE (BEAKER) (test 95 meq/L 98-107 wfoi=745) CO2 (BEAKER) (test 21 meq/L 22-29 ywnw=286) BLOOD UREA NITROGEN 111 mg/dL 7-21 (BEAKER) (test fzfb=148) CREATININE (BEAKER) (test 9.82 mg/dL 0.57-1.25 svkn=874) GLUCOSE RANDOM (BEAKER) 163 mg/dL 70-105 (test pcxe=584) CALCIUM (BEAKER) (test 8.5 mg/dL 8.4-10.2 akip=747) EGFR (BEAKER) (test 5 mL/min/1.73 sq m ESTIMATED GFR IS NOT rukw=0531) ACCURATE CREATININE CLEARANCE IN PREDICTING GLOMERULAR FILTRATION RATE. ESTIMATED GFR IS NOT APPLICABLE FOR DIALYSIS PATIENTS. CBC W/PLT COUNT & AUTO [id number] 09:22:00 Test Item Value Reference Range Comments WHITE BLOOD CELL COUNT (BEAKER) (test sqiy=153) 12.1 K/ L 3.5-10.5 RED BLOOD CELL COUNT (BEAKER) (test lalf=602) 2.97 M/ L 4.63-6.08 HEMOGLOBIN (BEAKER) (test zoea=781) 9.2 GM/DL 13.7-17.5 HEMATOCRIT (BEAKER) (test kxrl=518) 28.4 % 40.1-51.0 MEAN CORPUSCULAR VOLUME (BEAKER) (test rhsp=340) 95.6 fL 79.0-92.2 MEAN CORPUSCULAR HEMOGLOBIN (BEAKER) (test 31.0 pg 25.7-32.2 xfsx=651) MEAN CORPUSCULAR HEMOGLOBIN CONC (BEAKER) (test 32.4 GM/DL 32.3-36.5 hvqc=917) RED CELL DISTRIBUTION WIDTH (BEAKER) (test 14.6 % 11.6-14.4 ntjx=597) PLATELET COUNT (BEAKER) (test bhep=192) 168 K/CU MM 150-450 MEAN PLATELET VOLUME (BEAKER) (test oihc=998) 12.1 fL 9.4-12.4 NUCLEATED RED BLOOD CELLS (BEAKER) (test 0 /100 WBC 0-0 jekq=775) NEUTROPHILS RELATIVE PERCENT (BEAKER) (test 77 % jlfg=155) LYMPHOCYTES RELATIVE PERCENT (BEAKER) (test 10 % lyot=986) MONOCYTES RELATIVE PERCENT (BEAKER) (test 6 % gblz=448) EOSINOPHILS RELATIVE PERCENT (BEAKER) (test 1 % anpp=838) BASOPHILS RELATIVE PERCENT (BEAKER) (test 0 % vktb=782) NEUTROPHILS ABSOLUTE COUNT (BEAKER) (test 9.33 K/ L 1.78-5.38 chhb=205) LYMPHOCYTES ABSOLUTE COUNT (BEAKER) (test 1.25 K/ L 1.32-3.57 dbfc=695) MONOCYTES ABSOLUTE COUNT (BEAKER) (test 0.76 K/ L 0.30-0.82 kbma=201) EOSINOPHILS ABSOLUTE COUNT (BEAKER) (test 0.14 K/ L 0.04-0.54 gjyg=557) BASOPHILS ABSOLUTE COUNT (BEAKER) (test 0.02 K/ L 0.01-0.08 wvao=078) IMMATURE GRANULOCYTES-RELATIVE PERCENT (BEAKER) 5 % 0-1 (test fknj=4299) PROTHROMBIN [id number] 09:20:00 Test Item Value Reference Range Comments PROTIME (BEAKER) (test ycqp=822) 14.9 seconds 11.9-14.2 INR (BEAKER) (test usyn=894) 1.2 <=5.9 Effective 01/30/2019: PT Reference Range ChangeNew: 11.9-14.2 Previous: 11.7- 14.7RECOMMENDED COUMADIN/WARFARIN INR THERAPY RANGESSTANDARD DOSE: 2.0-3.0 Includes: PROPHYLAXIS for venous thrombosis, systemic embolization; TREATMENT for venous thrombosis and/or pulmonary embolus.HIGH RISK: Target INR is2.5-3.5 for patients wiht mechanical heart valves.Within 24 hours, if on CoumadinPOCT- GLUCOSE [id number] 07:57:00 Test Item Value Reference Range Comments POC-GLUCOSE METER (BEAKER) 183 mg/dL 70-110 TESTED AT [address] (test cbdi=8129) [facility] [address] POCT-GLUCOSE [id number] 21:30:00 Test Item Value Reference Range Comments POC-GLUCOSE METER (BEAKER) 326 mg/dL 70-110 Will Repeat Test/TESTED AT (test nwde=1862) [address] [address] POCT-GLUCOSE [id number] 17:47:00 Test Item Value Reference Range Comments POC-GLUCOSE METER (BEAKER) 332 mg/dL 70-110 TESTED AT [address] (test nlfa=4640) [facility] [address] POCT-GLUCOSE [id number] 11:54:00 Test Item Value Reference Range Comments POC-GLUCOSE METER (BEAKER) 171 mg/dL 70-110 TESTED AT [facility] [address] [facility] (test ebve=6353) [facility] [address] POCT-GLUCOSE [id number] 08:21:00 Test Item Value Reference Range Comments POC-GLUCOSE METER (BEAKER) 171 mg/dL 70-110 TESTED AT [place] [id number] [facility] (test chpk=7291) [facility] [address] CBC W/PLT COUNT & AUTO [id number] 07:27:00 Test Item Value Reference Range Comments WHITE BLOOD CELL COUNT (BEAKER) (test xlss=084) 13.7 K/ L 3.5-10.5 RED BLOOD CELL COUNT (BEAKER) (test etsf=295) 2.93 M/ L 4.63-6.08 HEMOGLOBIN (BEAKER) (test xzir=497) 9.3 GM/DL 13.7-17.5 HEMATOCRIT (BEAKER) (test buuc=781) 28.0 % 40.1-51.0 MEAN CORPUSCULAR VOLUME (BEAKER) (test swgf=657) 95.6 fL 79.0-92.2 MEAN CORPUSCULAR HEMOGLOBIN (BEAKER) (test 31.7 pg 25.7-32.2 nmro=722) MEAN CORPUSCULAR HEMOGLOBIN CONC (BEAKER) (test 33.2 GM/DL 32.3-36.5 vizu=793) RED CELL DISTRIBUTION WIDTH (BEAKER) (test 14.6 % 11.6-14.4 whmk=090) PLATELET COUNT (BEAKER) (test cdpg=627) 167 K/CU MM 150-450 MEAN PLATELET VOLUME (BEAKER) (test aarp=279) 12.3 fL 9.4-12.4 NUCLEATED RED BLOOD CELLS (BEAKER) (test 0 /100 WBC 0-0 kpqe=743) (CELLAVISION MANUAL DIFF)2019-04-28 07:27:00 Test Item Value Reference Range Comments NEUTROPHILS - REL (CELLAVISION)(BEAKER) (test 88 % qffo=3017) LYMPHOCYTES - REL (CELLAVISION)(BEAKER) (test 7 % zwrm=4981) MONOCYTES - REL (CELLAVISION)(BEAKER) (test 5 % nelm=7809) NEUTROPHILS - ABS (CELLAVISION)(BEAKER) (test 12.06 K/ul 1.78-5.38 tjzw=7976) LYMPHOCYTES - ABS (CELLAVISION)(BEAKER) (test 0.96 K/ul 1.32-3.57 cwac=1244) MONOCYTES - ABS (CELLAVISION)(BEAKER) (test 0.69 K/uL 0.30-0.82 acvz=1784) TOTAL COUNTED (BEAKER) (test btzq=0286) 100 WBC MORPHOLOGY (BEAKER) (test iarb=913) Normal LARGE PLT(BEAKER) (test ouzo=0474) Present POLYCHROMATOPHILLIC RBCS(BEAKER) (test cies=011) 1+ few HYPOCHROMIA (BEAKER) (test dwit=513) 1+ few ARTIFACT (CELLAVISION)(BEAKER) (test rcso=1354) Present PLATELET CONCENTRATION (CELLAVISION)(BEAKER) Adequate (test crzv=2744) Received comment: User comments: Slide comments:BASIC METABOLIC [id number] 05:54:00 Test Item Value Reference Range Comments SODIUM (BEAKER) (test 132 meq/L 136-145 ncqc=632) POTASSIUM (BEAKER) (test 4.9 meq/L 3.5-5.1 ntro=292) CHLORIDE (BEAKER) (test 96 meq/L 98-107 raxu=436) CO2 (BEAKER) (test 22 meq/L 22-29 mkts=144) BLOOD UREA NITROGEN 92 mg/dL 7-21 (BEAKER) (test aafn=307) CREATININE (BEAKER) (test 7.77 mg/dL 0.57-1.25 dnyu=003) GLUCOSE RANDOM (BEAKER) 150 mg/dL 70-105 (test bfyb=558) CALCIUM (BEAKER) (test 8.7 mg/dL 8.4-10.2 uiwf=665) EGFR (BEAKER) (test 7 mL/min/1.73 sq m ESTIMATED GFR IS NOT cpcp=4205) ACCURATE CREATININE CLEARANCE IN PREDICTING GLOMERULAR FILTRATION RATE. ESTIMATED GFR IS NOT APPLICABLE FOR DIALYSIS PATIENTS. POCT-GLUCOSE [id number] 21:28:00 Test Item Value Reference Range Comments POC-GLUCOSE METER (BEAKER) 296 mg/dL 70-110 TESTED AT [facility] [address] [facility] (test bisp=2773) [facility] [address] POCT-GLUCOSE [id number] 17:32:00 Test Item Value Reference Range Comments POC-GLUCOSE METER (BEAKER) 330 mg/dL 70-110 TESTED AT [facility] [address] [facility] (test okjw=1508) [facility] [address] CBC W/PLT COUNT & AUTO [id number] 16:02:00 Test Item Value Reference Range Comments WHITE BLOOD CELL COUNT (BEAKER) (test poch=970) 12.5 K/ L 3.5-10.5 RED BLOOD CELL COUNT (BEAKER) (test fotq=481) 2.91 M/ L 4.63-6.08 HEMOGLOBIN (BEAKER) (test tbjh=890) 9.2 GM/DL 13.7-17.5 HEMATOCRIT (BEAKER) (test lpmj=598) 28.4 % 40.1-51.0 MEAN CORPUSCULAR VOLUME (BEAKER) (test eyye=616) 97.6 fL 79.0-92.2 MEAN CORPUSCULAR HEMOGLOBIN (BEAKER) (test 31.6 pg 25.7-32.2 qdue=698) MEAN CORPUSCULAR HEMOGLOBIN CONC (BEAKER) (test 32.4 GM/DL 32.3-36.5 nkyg=545) RED CELL DISTRIBUTION WIDTH (BEAKER) (test 14.5 % 11.6-14.4 yeie=999) PLATELET COUNT (BEAKER) (test pegc=591) 162 K/CU MM 150-450 MEAN PLATELET VOLUME (BEAKER) (test rlto=867) 12.5 fL 9.4-12.4 NUCLEATED RED BLOOD CELLS (BEAKER) (test 0 /100 WBC 0-0 ifxy=532) (CELLAVISION MANUAL DIFF)2019-04-27 16:02:00 Test Item Value Reference Range Comments NEUTROPHILS - REL (CELLAVISION)(BEAKER) (test 87 % iwya=4754) LYMPHOCYTES - REL (CELLAVISION)(BEAKER) (test 7 % dcub=2430) MONOCYTES - REL (CELLAVISION)(BEAKER) (test 6 % akjd=4660) NEUTROPHILS - ABS (CELLAVISION)(BEAKER) (test 10.88 K/ul 1.78-5.38 xbqt=6858) LYMPHOCYTES - ABS (CELLAVISION)(BEAKER) (test 0.88 K/ul 1.32-3.57 mefu=9101) MONOCYTES - ABS (CELLAVISION)(BEAKER) (test 0.75 K/uL 0.30-0.82 kurn=3849) TOTAL COUNTED (BEAKER) (test nfmy=5219) 100 WBC MORPHOLOGY (BEAKER) (test yqrf=715) Normal GIANT PLATELETS (BEAKER) (test acmb=983) Present POLYCHROMATOPHILLIC RBCS(BEAKER) (test acei=679) 1+ few HYPOCHROMIA (BEAKER) (test owvr=926) 1+ few ANISOCYTOSIS (BEAKER) (test ztky=336) 1+ few MACROCYTES (BEAKER) (test wjez=072) 1+ few POIKILOCYTES (BEAKER) (test dvrn=140) 2+ moderate OVALOCYTES (BEAKER) (test tfuo=105) 2+ moderate TEAR DROP CELLS (BEAKER) (test ftdc=199) 1+ few TONI CELLS (BEAKER) (test btpn=193) 2+ moderate ARTIFACT (CELLAVISION)(BEAKER) (test owpa=9304) Present PLATELET CONCENTRATION (CELLAVISION)(BEAKER) Adequate (test oigd=7584) Received comment: User comments: Slide comments:POCT-GLUCOSE [id number] 11: 35:00 Test Item Value Reference Range Comments POC-GLUCOSE METER (BEAKER) 248 mg/dL 70-110 TESTED AT [facility] [address] [facility] (test gbre=1740) [facility] [address] T4, [id number] 08:58:00 Test Item Value Reference Range Comments FREE T4 (BEAKER) (test pcbt=429) 1.29 ng/dL 0.70-1.48 HEMOGLOBIN [id number] 08:50:00 Test Item Value Reference Range Comments HEMOGLOBIN A1C (BEAKER) (test xunb=587) 7.4 % 4.3-6.1 LIPID [id number] 08:07:00 Test Item Value Reference Range Comments TRIGLYCERIDES (BEAKER) (test igfx=776) 115 mg/dL CHOLESTEROL (BEAKER) (test uiyy=964) 114 mg/dL HDL CHOLESTEROL (BEAKER) (test vgjs=102) 56 mg/dL LDL CHOLESTEROL CALCULATED (BEAKER) (test 35 mg/dL nvdn=899) Triglyceride Reference Range: Low Risk <150 Borderline 150- 199 High Risk 200-499 Very High Risk >=500Cholesterol Reference Range: Low Risk <200 Borderline 200-239 High Risk > 240HDL Cholesterol Reference Range: Low Risk >=60 High Risk <40LDL Cholesterol Reference Range: Optimal <100 Near Optimal 100-129 Borderline 130-159 High 160-189 Very High >=190BASIC METABOLIC [id number] 08:07:00 Test Item Value Reference Range Comments SODIUM (BEAKER) (test 131 meq/L 136-145 lndv=428) POTASSIUM (BEAKER) (test 4.9 meq/L 3.5-5.1 vcoh=441) CHLORIDE (BEAKER) (test 96 meq/L 98-107 bdyd=734) CO2 (BEAKER) (test 24 meq/L 22-29 geui=221) BLOOD UREA NITROGEN 56 mg/dL 7-21 (BEAKER) (test xqzx=102) CREATININE (BEAKER) (test 6.09 mg/dL 0.57-1.25 anqp=105) GLUCOSE RANDOM (BEAKER) 282 mg/dL 70-105 (test dypz=854) CALCIUM (BEAKER) (test 8.6 mg/dL 8.4-10.2 rdeh=469) EGFR (BEAKER) (test 9 mL/min/1.73 sq m ESTIMATED GFR IS NOT hfzk=1209) ACCURATE CREATININE CLEARANCE IN PREDICTING GLOMERULAR FILTRATION RATE. ESTIMATED GFR IS NOT APPLICABLE FOR DIALYSIS PATIENTS. TSH/FREE T4 IF [id number] 08:04:00 Test Item Value Reference Range Comments THYROID STIMULATING HORMONE (BEAKER) (test 0.06 uIU/mL 0.35-4.94 iytz=478) POCT-GLUCOSE [id number] 07:38:00 Test Item Value Reference Range Comments POC-GLUCOSE METER (BEAKER) 316 mg/dL 70-110 TESTED AT [address] (test tksw=9984) [facility] [address] POCT-GLUCOSE [id number] 21:22:00 Test Item Value Reference Range Comments POC-GLUCOSE METER (BEAKER) 194 mg/dL 70-110 TESTED AT [address] (test ggrd=9544) [facility] [address] CBC W/PLT COUNT & AUTO [id number] 19:30:00 Test Item Value Reference Range Comments WHITE BLOOD CELL COUNT (BEAKER) (test oewd=275) 16.9 K/ L 3.5-10.5 RED BLOOD CELL COUNT (BEAKER) (test bwod=568) 3.08 M/ L 4.63-6.08 HEMOGLOBIN (BEAKER) (test wlcl=896) 9.8 GM/DL 13.7-17.5 HEMATOCRIT (BEAKER) (test vbxs=705) 29.5 % 40.1-51.0 MEAN CORPUSCULAR VOLUME (BEAKER) (test tfcy=107) 95.8 fL 79.0-92.2 MEAN CORPUSCULAR HEMOGLOBIN (BEAKER) (test 31.8 pg 25.7-32.2 abmp=173) MEAN CORPUSCULAR HEMOGLOBIN CONC (BEAKER) (test 33.2 GM/DL 32.3-36.5 oqag=223) RED CELL DISTRIBUTION WIDTH (BEAKER) (test 14.5 % 11.6-14.4 wnte=406) PLATELET COUNT (BEAKER) (test iyaq=545) 187 K/CU MM 150-450 MEAN PLATELET VOLUME (BEAKER) (test hjvb=794) 11.7 fL 9.4-12.4 NUCLEATED RED BLOOD CELLS (BEAKER) (test 0 /100 WBC 0-0 batp=288) (CELLAVISION MANUAL DIFF)2019-04-26 19:30:00 Test Item Value Reference Range Comments NEUTROPHILS - REL (CELLAVISION)(BEAKER) (test 83 % egau=6617) LYMPHOCYTES - REL (CELLAVISION)(BEAKER) (test 6 % xkhg=0906) MONOCYTES - REL (CELLAVISION)(BEAKER) (test 4 % drsx=3959) METAMYELOCYTES - REL (CELLAVISION)(BEAKER) (test 5 % 0-0 bifo=2640) MYELOCYTES - REL (CELLAVISION)(BEAKER) (test 1 % 0-0 rwng=0975) BANDS - REL (CELLAVISION)(BEAKER) (test 1 % 0-10 leqg=1989) NEUTROPHILS - ABS (CELLAVISION)(BEAKER) (test 14.03 K/ul 1.78-5.38 ngkd=1054) LYMPHOCYTES - ABS (CELLAVISION)(BEAKER) (test 1.01 K/ul 1.32-3.57 xoou=8315) MONOCYTES - ABS (CELLAVISION)(BEAKER) (test 0.68 K/uL 0.30-0.82 zugu=2650) METAMYELOCYTES - ABS (CELLAVISION)(BEAKER) (test 0.85 K/uL 0.00-0.00 khys=8405) MYELOCYTES-ABS (CELLAVISION)(BEAKER) (test 0.17 K/uL 0.00-0.00 rckh=9038) BANDS - ABS (CELLAVISION)(BEAKER) (test 0.17 K/uL 0.00-0.80 kuew=6684) TOTAL COUNTED (BEAKER) (test wgeb=8449) 100 RBC MORPHOLOGY (BEAKER) (test snpj=705) Normal WBC MORPHOLOGY (BEAKER) (test pgsk=928) Normal PLT MORPHOLOGY (BEAKER) (test eflb=645) Normal ARTIFACT (CELLAVISION)(BEAKER) (test mdmz=6701) Present PLATELET CONCENTRATION (CELLAVISION)(BEAKER) Adequate (test mrvp=9681) Received comment: User comments: Slide comments:B-TYPE NATRIURETIC FACTOR (BNP) 2019-04-26 19:20:00 Test Item Value Reference Range Comments B-TYPE NATRIURETIC PEPTIDE (BEAKER) (test 144 pg/mL 0-100 fphs=731) TROPONIN [id number] 19:20:00 Test Item Value Reference Range Comments TROPONIN I (BEAKER) (test ialc=733) 0.05 ng/mL 0.00-0.03 Troponin I (TnI) levels [...] failure, acidosis, acute neurological disease, and persistent tachyarrhythmia.[id number] 19:17:00 Test Item Value Reference Range Comments PROTIME (BEAKER) (test ksjl=546) 13.9 seconds 11.9-14.2 INR (BEAKER) (test tycp=397) 1.1 <=5.9 PARTIAL THROMBOPLASTIN TIME (BEAKER) (test 25.8 seconds 22.5-36.0 afcp=401) Effective 01/30/2019: PT Reference Range ChangeNew: 11.9-14.2 Previous: 11.7- 14.7RECOMMENDED COUMADIN/WARFARIN INR THERAPY RANGESSTANDARD DOSE: 2.0-3.0 Includes: PROPHYLAXIS for venous thrombosis, systemic embolization; TREATMENT for venous thrombosis and/or pulmonary embolus.HIGH RISK: Target INR is2.5-3.5 for patients wiht mechanical heart valves.BASIC METABOLIC [id number] 19:14: 00 Test Item Value Reference Range Comments SODIUM (BEAKER) (test 134 meq/L 136-145 wivg=289) POTASSIUM (BEAKER) (test 4.7 meq/L 3.5-5.1 dksn=582) CHLORIDE (BEAKER) (test 96 meq/L 98-107 hbao=243) CO2 (BEAKER) (test 29 meq/L 22-29 lvuv=603) BLOOD UREA NITROGEN 39 mg/dL 7-21 (BEAKER) (test ngyj=944) CREATININE (BEAKER) (test 4.65 mg/dL 0.57-1.25 yihv=327) GLUCOSE RANDOM (BEAKER) 129 mg/dL 70-105 (test nehj=468) CALCIUM (BEAKER) (test 8.9 mg/dL 8.4-10.2 faqn=894) EGFR (BEAKER) (test 13 mL/min/1.73 sq m ESTIMATED GFR IS NOT effm=1543) ACCURATE CREATININE CLEARANCE IN PREDICTING GLOMERULAR FILTRATION RATE. ESTIMATED GFR IS NOT APPLICABLE FOR DIALYSIS PATIENTS. [id number] 19:13:00 Test Item Value Reference Range Comments MAGNESIUM (BEAKER) (test zstq=977) 2.4 mg/dL 1.6-2.6 RAD, CHEST, 1 VIEW, NON [id number] 17:54:00Reason for exam:->ABNORMAL ECGFINAL REPORT Chest, one view. HISTORY: ABNORMAL ECG COMPARISON: Radiograph from 04/14/2019 IMPRESSION: The left pleural effusion has increased and is now likely moderate volume.Mild left basilar subsegmental atelectasis. The cardiac silhouette is obscured. A stent overlies theleft axillary vasculature. A device overlies the midline chest. No pneumothorax. No acute bony abnormality. Signed: Juventino Wililamson MDReport Verified Date/Time: 2018 17:54:42 Reading Location: [address] Consult Reading Room C-REACTIVE [id number] 17:19:00 Test Item Value Reference Range Comments C-REACTIVE PROTEIN (BEAKER) (test ohyl=647) 0.22 mg/dL 0.00-0.50 POCT-GLUCOSE [id number] 15:56:00 Test Item Value Reference Range Comments POC-GLUCOSE METER (BEAKER) 283 mg/dL 70-110 TESTED AT [address] (test cogh=7375) [facility] [address] POCT-GLUCOSE [id number] 11:40:00 Test Item Value Reference Range Comments POC-GLUCOSE METER (BEAKER) 319 mg/dL 70-110 TESTED AT [address] (test jlll=0555) [facility] [address] CBC W/PLT COUNT & AUTO [id number] 09:52:00 Test Item Value Reference Range Comments WHITE BLOOD CELL COUNT (BEAKER) (test yxhw=882) 10.9 K/ L 3.5-10.5 RED BLOOD CELL COUNT (BEAKER) (test hjrj=334) 2.73 M/ L 4.63-6.08 HEMOGLOBIN (BEAKER) (test tstm=605) 8.6 GM/DL 13.7-17.5 HEMATOCRIT (BEAKER) (test imot=957) 26.5 % 40.1-51.0 MEAN CORPUSCULAR VOLUME (BEAKER) (test ajhx=118) 97.1 fL 79.0-92.2 MEAN CORPUSCULAR HEMOGLOBIN (BEAKER) (test 31.5 pg 25.7-32.2 hmrd=403) MEAN CORPUSCULAR HEMOGLOBIN CONC (BEAKER) (test 32.5 GM/DL 32.3-36.5 zlfu=311) RED CELL DISTRIBUTION WIDTH (BEAKER) (test 15.1 % 11.6-14.4 tnim=096) PLATELET COUNT (BEAKER) (test qcnk=423) 205 K/CU MM 150-450 MEAN PLATELET VOLUME (BEAKER) (test mtrf=082) 11.7 fL 9.4-12.4 NUCLEATED RED BLOOD CELLS (BEAKER) (test 0 /100 WBC 0-0 rzov=617) NEUTROPHILS RELATIVE PERCENT (BEAKER) (test 87 % pbrw=444) LYMPHOCYTES RELATIVE PERCENT (BEAKER) (test 8 % saro=731) MONOCYTES RELATIVE PERCENT (BEAKER) (test 3 % hjnd=544) EOSINOPHILS RELATIVE PERCENT (BEAKER) (test 0 % kxzf=803) BASOPHILS RELATIVE PERCENT (BEAKER) (test 0 % mwle=132) NEUTROPHILS ABSOLUTE COUNT (BEAKER) (test 9.40 K/ L 1.78-5.38 jybc=314) LYMPHOCYTES ABSOLUTE COUNT (BEAKER) (test 0.83 K/ L 1.32-3.57 yooa=999) MONOCYTES ABSOLUTE COUNT (BEAKER) (test 0.36 K/ L 0.30-0.82 lgvt=703) EOSINOPHILS ABSOLUTE COUNT (BEAKER) (test 0.00 K/ L 0.04-0.54 xhfx=653) BASOPHILS ABSOLUTE COUNT (BEAKER) (test 0.01 K/ L 0.01-0.08 acgv=298) IMMATURE GRANULOCYTES-RELATIVE PERCENT (BEAKER) 2 % 0-1 (test xhlj=7792) BASIC METABOLIC [id number] 08:06:00 Test Item Value Reference Range Comments SODIUM (BEAKER) (test 136 meq/L 136-145 cfjo=060) POTASSIUM (BEAKER) (test 6.3 meq/L 3.5-5.1 Specimen slightly fapa=700) hemolyzed CHLORIDE (BEAKER) (test 101 meq/L 98-107 bflj=049) CO2 (BEAKER) (test 24 meq/L 22-29 zmbj=515) BLOOD UREA NITROGEN 43 mg/dL 7-21 (BEAKER) (test vkni=576) CREATININE (BEAKER) (test 5.78 mg/dL 0.57-1.25 Specimen slightly moqa=661) hemolyzed GLUCOSE RANDOM (BEAKER) 329 mg/dL 70-105 (test mxar=844) CALCIUM (BEAKER) (test 10.0 mg/dL 8.4-10.2 uhob=275) EGFR (BEAKER) (test 10 mL/min/1.73 sq m ESTIMATED GFR IS NOT dtaq=2887) ACCURATE CREATININE CLEARANCE IN PREDICTING GLOMERULAR FILTRATION RATE. ESTIMATED GFR IS NOT APPLICABLE FOR DIALYSIS PATIENTS. [id number] 07:34:00 Test Item Value Reference Range Comments PHOSPHORUS (BEAKER) (test 5.3 mg/dL 2.3-4.7 Specimen slightly hemolyzed iqyg=392) POCT-GLUCOSE [id number] 07:18:00 Test Item Value Reference Range Comments POC-GLUCOSE METER (BEAKER) 364 mg/dL 70-110 Notified RN MD/TESTED AT [facility] (test buhj=8930) [address] [place] [address] HEPATITIS B SURFACE [id number] 22:01:00 Test Item Value Reference Range Comments HEPATITIS B SURFACE ANTIGEN (2) (BEAKER) (test Nonreactive Nonreactive kqgz=6200) POCT-GLUCOSE [id number] 21:39:00 Test Item Value Reference Range Comments POC-GLUCOSE METER (BEAKER) 334 mg/dL 70-110 Notified RN /TESTED AT [facility] (test jgqg=6373) [address] [place] [address] POCT-GLUCOSE [id number] 18:23:00 Test Item Value Reference Range Comments POC-GLUCOSE METER (BEAKER) 299 mg/dL 70-110 TESTED AT [address] (test akhm=9177) [facility] [address] BASIC METABOLIC [id number] 16:58:00 Test Item Value Reference Range Comments SODIUM (BEAKER) (test 139 meq/L 136-145 eavk=225) POTASSIUM (BEAKER) (test 4.8 meq/L 3.5-5.1 xkxd=237) CHLORIDE (BEAKER) (test 102 meq/L 98-107 ostd=563) CO2 (BEAKER) (test 28 meq/L 22-29 towp=930) BLOOD UREA NITROGEN 32 mg/dL 7-21 (BEAKER) (test kuqk=000) CREATININE (BEAKER) (test 4.62 mg/dL 0.57-1.25 dsfj=662) GLUCOSE RANDOM (BEAKER) 277 mg/dL 70-105 (test idzq=432) CALCIUM (BEAKER) (test 10.0 mg/dL 8.4-10.2 okyu=830) EGFR (BEAKER) (test 13 mL/min/1.73 sq m ESTIMATED GFR IS NOT iesx=3490) ACCURATE CREATININE CLEARANCE IN PREDICTING GLOMERULAR FILTRATION RATE. ESTIMATED GFR IS NOT APPLICABLE FOR DIALYSIS PATIENTS. CBC W/PLT COUNT & AUTO [id number] 16:41:00 Test Item Value Reference Range Comments WHITE BLOOD CELL COUNT (BEAKER) (test hxxu=536) 15.2 K/ L 3.5-10.5 RED BLOOD CELL COUNT (BEAKER) (test slvq=405) 2.86 M/ L 4.63-6.08 HEMOGLOBIN (BEAKER) (test pyee=127) 8.9 GM/DL 13.7-17.5 HEMATOCRIT (BEAKER) (test hpfl=754) 27.1 % 40.1-51.0 MEAN CORPUSCULAR VOLUME (BEAKER) (test lgfz=818) 94.8 fL 79.0-92.2 MEAN CORPUSCULAR HEMOGLOBIN (BEAKER) (test 31.1 pg 25.7-32.2 wcmo=858) MEAN CORPUSCULAR HEMOGLOBIN CONC (BEAKER) (test 32.8 GM/DL 32.3-36.5 dqqb=632) RED CELL DISTRIBUTION WIDTH (BEAKER) (test 15.3 % 11.6-14.4 wpbp=242) PLATELET COUNT (BEAKER) (test nwia=593) 231 K/CU MM 150-450 MEAN PLATELET VOLUME (BEAKER) (test kyfc=119) 11.7 fL 9.4-12.4 NUCLEATED RED BLOOD CELLS (BEAKER) (test 0 /100 WBC 0-0 feni=727) NEUTROPHILS RELATIVE PERCENT (BEAKER) (test 84 % loen=678) LYMPHOCYTES RELATIVE PERCENT (BEAKER) (test 7 % hays=213) MONOCYTES RELATIVE PERCENT (BEAKER) (test 7 % afia=322) EOSINOPHILS RELATIVE PERCENT (BEAKER) (test 0 % hqgv=824) BASOPHILS RELATIVE PERCENT (BEAKER) (test 0 % uemu=942) NEUTROPHILS ABSOLUTE COUNT (BEAKER) (test 12.77 K/ L 1.78-5.38 shjr=222) LYMPHOCYTES ABSOLUTE COUNT (BEAKER) (test 1.03 K/ L 1.32-3.57 tbqh=762) MONOCYTES ABSOLUTE COUNT (BEAKER) (test 1.12 K/ L 0.30-0.82 jvmk=351) EOSINOPHILS ABSOLUTE COUNT (BEAKER) (test 0.00 K/ L 0.04-0.54 jwdk=112) BASOPHILS ABSOLUTE COUNT (BEAKER) (test 0.02 K/ L 0.01-0.08 cblf=753) IMMATURE GRANULOCYTES-RELATIVE PERCENT (BEAKER) 1 % 0-1 (test vzcx=0891) POCT-GLUCOSE [id number] 16:07:00 Test Item Value Reference Range Comments POC-GLUCOSE METER (BEAKER) 303 mg/dL 70-110 TESTED AT [facility] [address] [facility] (test vcab=6734) [facility] [address] TROPONIN [id number] 15:56:00 Test Item Value Reference Range Comments TROPONIN I (BEAKER) (test huwb=486) 0.01 ng/mL 0.00-0.03 Troponin I (TnI) levels [...] acidosis, acute neurological disease, and persistent tachyarrhythmia.TROPONIN [id number] 08:07:00 Test Item Value Reference Range Comments TROPONIN I (BEAKER) (test kkji=666) < ng/mL 0.00-0.03 Troponin I (TnI) levels [...] acute neurological disease, and persistent tachyarrhythmia.BASIC METABOLIC [id number] 08:05:00 Test Item Value Reference Range Comments SODIUM (BEAKER) (test 134 meq/L 136-145 jtxp=099) POTASSIUM (BEAKER) (test 6.0 meq/L 3.5-5.1 swva=922) CHLORIDE (BEAKER) (test 94 meq/L 98-107 oydi=364) CO2 (BEAKER) (test 26 meq/L 22-29 lhbv=428) BLOOD UREA NITROGEN 46 mg/dL 7-21 (BEAKER) (test lpvf=458) CREATININE (BEAKER) (test 7.49 mg/dL 0.57-1.25 eakq=281) GLUCOSE RANDOM (BEAKER) 433 mg/dL 70-105 (test nqvv=125) CALCIUM (BEAKER) (test 10.7 mg/dL 8.4-10.2 mjrf=163) EGFR (BEAKER) (test 7 mL/min/1.73 sq m ESTIMATED GFR IS NOT psqj=4378) ACCURATE CREATININE CLEARANCE IN PREDICTING GLOMERULAR FILTRATION RATE. ESTIMATED GFR IS NOT APPLICABLE FOR DIALYSIS PATIENTS. POCT-GLUCOSE [id number] 06:48:00 Test Item Value Reference Range Comments POC-GLUCOSE METER (BEAKER) 378 mg/dL 70-110 TESTED AT [facility] [address] [facility] (test ijpw=8106) [facility] [address] CBC W/PLT COUNT & AUTO [id number] 03:42:00 Test Item Value Reference Range Comments WHITE BLOOD CELL COUNT (BEAKER) (test idfb=839) 13.5 K/ L 3.5-10.5 RED BLOOD CELL COUNT (BEAKER) (test ravv=542) 2.98 M/ L 4.63-6.08 HEMOGLOBIN (BEAKER) (test uynu=402) 9.5 GM/DL 13.7-17.5 HEMATOCRIT (BEAKER) (test jlqj=612) 28.4 % 40.1-51.0 MEAN CORPUSCULAR VOLUME (BEAKER) (test dpyf=173) 95.3 fL 79.0-92.2 MEAN CORPUSCULAR HEMOGLOBIN (BEAKER) (test 31.9 pg 25.7-32.2 rnzb=390) MEAN CORPUSCULAR HEMOGLOBIN CONC (BEAKER) (test 33.5 GM/DL 32.3-36.5 lrht=009) RED CELL DISTRIBUTION WIDTH (BEAKER) (test 15.1 % 11.6-14.4 dqxk=776) PLATELET COUNT (BEAKER) (test tsxd=629) 203 K/CU MM 150-450 MEAN PLATELET VOLUME (BEAKER) (test fydj=256) 11.9 fL 9.4-12.4 NUCLEATED RED BLOOD CELLS (BEAKER) (test 0 /100 WBC 0-0 tngq=576) NEUTROPHILS RELATIVE PERCENT (BEAKER) (test 85 % pcim=524) LYMPHOCYTES RELATIVE PERCENT (BEAKER) (test 9 % sqvt=701) MONOCYTES RELATIVE PERCENT (BEAKER) (test 4 % vfne=841) EOSINOPHILS RELATIVE PERCENT (BEAKER) (test 0 % mlge=170) BASOPHILS RELATIVE PERCENT (BEAKER) (test 0 % qnlo=823) NEUTROPHILS ABSOLUTE COUNT (BEAKER) (test 11.52 K/ L 1.78-5.38 ulfp=560) LYMPHOCYTES ABSOLUTE COUNT (BEAKER) (test 1.17 K/ L 1.32-3.57 jgpv=937) MONOCYTES ABSOLUTE COUNT (BEAKER) (test 0.56 K/ L 0.30-0.82 sgsj=549) EOSINOPHILS ABSOLUTE COUNT (BEAKER) (test 0.00 K/ L 0.04-0.54 kpgv=656) BASOPHILS ABSOLUTE COUNT (BEAKER) (test 0.03 K/ L 0.01-0.08 nfhe=296) IMMATURE GRANULOCYTES-RELATIVE PERCENT (BEAKER) 2 % 0-1 (test shdo=2252) BASIC METABOLIC [id number] 03:38:00 Test Item Value Reference Range Comments SODIUM (BEAKER) (test 130 meq/L 136-145 ghwk=288) POTASSIUM (BEAKER) (test 6.3 meq/L 3.5-5.1 dvgl=831) CHLORIDE (BEAKER) (test 94 meq/L 98-107 jytp=958) CO2 (BEAKER) (test 22 meq/L 22-29 zjuu=215) BLOOD UREA NITROGEN 42 mg/dL 7-21 (BEAKER) (test ulaw=756) CREATININE (BEAKER) (test 7.08 mg/dL 0.57-1.25 hggr=227) GLUCOSE RANDOM (BEAKER) 430 mg/dL 70-105 (test ecqz=966) CALCIUM (BEAKER) (test 10.6 mg/dL 8.4-10.2 tcwn=927) EGFR (BEAKER) (test 8 mL/min/1.73 sq m ESTIMATED GFR IS NOT sqnf=2361) ACCURATE CREATININE CLEARANCE IN PREDICTING GLOMERULAR FILTRATION RATE. ESTIMATED GFR IS NOT APPLICABLE FOR DIALYSIS PATIENTS. TROPONIN [id number] 03:38:00 Test Item Value Reference Range Comments TROPONIN I (BEAKER) (test jyng=674) < ng/mL 0.00-0.03 Troponin I (TnI) levels [...] neurological disease, and persistent tachyarrhythmia.CT, BRAIN, WITHOUT [id number] 03 :13:00Reason for exam:->LOSS OF CONSCIOUSNESSWhat is [...] acute intracranial pathology persists. Signed: Pia Beebe [facility] Verified Date/Time: 04/14/2019 03:13:43 RAD, CHEST, 1 VIEW, NON [id number] 02:37: 00Reason for exam:->LOSS OF CONSCIOUSNESSShould this [...] MDReport Verified Date/Time: 2018 02:37:40 Reading Location: [address] Reading Room AFB CULTURE + [id number] 10:35:00 Test Item Value Reference Range Comments CULTURE (BEAKER) (test No acid-fast bacilli isolated jpmn=3829) in 42 days AFB SMEAR (BEAKER) (test No acid fast bacilli seen orks=484) FUNGUS CULTURE + [id number] 19:02:00 Test Item Value Reference Range Comments CULTURE (BEAKER) (test No fungus isolated in 28 days zerw=1212) FUNGUS SMEAR (BEAKER) (test No fungi seen zpfy=2291) POCT-GLUCOSE [id number] 12:35:00 Test Item Value Reference Range Comments POC-GLUCOSE METER (BEAKER) 214 mg/dL 70-110 TESTED AT [address] (test juau=7916) [facility] [address] BLOOD [id number] 12:01:00 Test Item Value Reference Range Comments CULTURE (BEAKER) (test hqeq=7351) No growth in 5 days BLOOD [id number] 12:01:00 Test Item Value Reference Range Comments CULTURE (BEAKER) (test xlav=4918) No growth in 5 days POCT-GLUCOSE [id number] 07:49:00 Test Item Value Reference Range Comments POC-GLUCOSE METER (BEAKER) 174 mg/dL 70-110 TESTED AT [address] (test kosq=3588) [facility] [address] MR, CARDIAC WITHOUT [id number] 07:10:00Reason for exam:->r/o constrictive pericarditisFINAL REPORT Cardiac MRI dated 22 Jan 2019 INDICATION: Is a 68 year-old male with with past medical history of end-stage renal disease, coronary artery disease, PCI, on anticoagulation, there is a concern for underlying constrictive physiology. TECHNIQUE: Tali 3 Shauna FlutherIA MRI scanner. Morphologic and dynamic cine imaging [...] and function. Quantitative values are as follows: HGR=462 cc; ESV=73 cc; stroke cmxpxi=575 cc ; and ejection fraction=59%. Calculated absolute cardiac output=8.5 liters/ min. Absolute left ventricular apsl=015 grams. The right ventricle is normal in size and function. Quantitative values are as follows: CPI=869 cc; ESV=78 cc ; stroke gblfbd=211 cc; and ejection fraction=57%. Index RV EDV=82 [...] MDReport Verified Date/Time: 01/23/2019 07:10:40 Reading Location: [place] [address] [facility] [id number] 05:56:00 Test Item Value Reference Range Comments TOTAL PROTEIN (BEAKER) 5.8 gm/dL 6.0-8.3 (test qhcg=755) ALBUMIN (BEAKER) (test 3.1 g/dL 3.5-5.0 dnwn=8187) ALKALINE PHOSPHATASE 99 U/L 40-150 (BEAKER) (test fnpq=658) BILIRUBIN TOTAL (BEAKER) 0.4 mg/dL 0.2-1.2 (test rnbp=519) SODIUM (BEAKER) (test 137 meq/L 136-145 oplx=058) POTASSIUM (BEAKER) (test 4.0 meq/L 3.5-5.1 nyjj=592) CHLORIDE (BEAKER) (test 99 meq/L 98-107 tdvm=051) CO2 (BEAKER) (test 27 meq/L 22-29 hzoj=350) BLOOD UREA NITROGEN 32 mg/dL 7-21 (BEAKER) (test fuol=175) CREATININE (BEAKER) (test 7.10 mg/dL 0.57-1.25 jsbe=204) GLUCOSE RANDOM (BEAKER) 170 mg/dL 70-105 (test mtnh=355) CALCIUM (BEAKER) (test 9.0 mg/dL 8.4-10.2 tcit=902) AST (SGOT) (BEAKER) (test 14 U/L 5-34 ccvi=234) ALT (SGPT) (BEAKER) (test 21 U/L 6-55 naff=519) EGFR (BEAKER) (test 8 mL/min/1.73 sq m ESTIMATED GFR IS NOT qtzw=5235) ACCURATE CREATININE CLEARANCE IN PREDICTING GLOMERULAR FILTRATION RATE. ESTIMATED GFR IS NOT APPLICABLE FOR DIALYSIS PATIENTS. C-REACTIVE [id number] 05:55:00 Test Item Value Reference Range Comments C-REACTIVE PROTEIN (BEAKER) (test jvfd=953) 9.80 mg/dL 0.00-0.50 CBC W/PLT COUNT & AUTO [id number] 05:20:00 Test Item Value Reference Range Comments WHITE BLOOD CELL COUNT (BEAKER) (test vtke=983) 6.3 K/ L 3.5-10.5 RED BLOOD CELL COUNT (BEAKER) (test tvzu=745) 2.41 M/ L 4.63-6.08 HEMOGLOBIN (BEAKER) (test rnaw=859) 7.2 GM/DL 13.7-17.5 HEMATOCRIT (BEAKER) (test dczj=300) 23.3 % 40.1-51.0 MEAN CORPUSCULAR VOLUME (BEAKER) (test kvul=976) 96.7 fL 79.0-92.2 MEAN CORPUSCULAR HEMOGLOBIN (BEAKER) (test 29.9 pg 25.7-32.2 omso=526) MEAN CORPUSCULAR HEMOGLOBIN CONC (BEAKER) (test 30.9 GM/DL 32.3-36.5 kyfi=328) RED CELL DISTRIBUTION WIDTH (BEAKER) (test 15.4 % 11.6-14.4 lbzk=409) PLATELET COUNT (BEAKER) (test dveo=140) 236 K/CU MM 150-450 MEAN PLATELET VOLUME (BEAKER) (test jmca=556) 11.8 fL 9.4-12.4 NUCLEATED RED BLOOD CELLS (BEAKER) (test 0 /100 WBC 0-0 uekd=084) NEUTROPHILS RELATIVE PERCENT (BEAKER) (test 65 % rxnb=150) LYMPHOCYTES RELATIVE PERCENT (BEAKER) (test 20 % hzsu=552) MONOCYTES RELATIVE PERCENT (BEAKER) (test 11 % keei=298) EOSINOPHILS RELATIVE PERCENT (BEAKER) (test 3 % qngm=801) BASOPHILS RELATIVE PERCENT (BEAKER) (test 1 % iuvy=052) NEUTROPHILS ABSOLUTE COUNT (BEAKER) (test 4.11 K/ L 1.78-5.38 nhvy=626) LYMPHOCYTES ABSOLUTE COUNT (BEAKER) (test 1.25 K/ L 1.32-3.57 koje=052) MONOCYTES ABSOLUTE COUNT (BEAKER) (test 0.67 K/ L 0.30-0.82 ytbo=177) EOSINOPHILS ABSOLUTE COUNT (BEAKER) (test 0.20 K/ L 0.04-0.54 vhcn=055) BASOPHILS ABSOLUTE COUNT (BEAKER) (test 0.06 K/ L 0.01-0.08 pjdo=433) IMMATURE GRANULOCYTES-RELATIVE PERCENT (AKER) 1 % 0-1 (test ogue=3411) POCT-GLUCOSE [id number] 22:15:00 Test Item Value Reference Range Comments POC-GLUCOSE METER (BEAKER) 183 mg/dL 70-110 TESTED AT [address] (test xvfy=5390) [place] [address] BODY FLUID CULTURE + GRAM [id number] 13:25:00 Test Item Value Reference Range Comments CULTURE (BEAKER) (test axwy=2475) No growth GRAM STAIN RESULT (BEAKER) (test <1+ White blood cells seen rpsp=7558) GRAM STAIN RESULT (BEAKER) (test No organisms seen kxtj=05688) POCT-GLUCOSE [id number] 12:07:00 Test Item Value Reference Range Comments POC-GLUCOSE METER (BEAKER) 275 mg/dL 70-110 TESTED AT [address] (test vcsi=2652) [place] [address] POCT-GLUCOSE [id number] 07:57:00 Test Item Value Reference Range Comments POC-GLUCOSE METER (BEAKER) 160 mg/dL 70-110 TESTED AT [address] (test xgsu=2951) [place] [address] POCT-GLUCOSE [id number] 21:56:00 Test Item Value Reference Range Comments POC-GLUCOSE METER (BEAKER) 210 mg/dL 70-110 TESTED AT [address] (test fbpw=6785) [place] [address] BODY FLUID [id number] 18:30:00 Test Item Value Reference Range Comments CRYSTALS, BODY FLUID (BEAKER) No crystals seen. (test vctp=6273) [id number] (BEAKER) Slade Granados MD (electronic (test yhro=0332) signature) POCT-GLUCOSE [id number] 17:51:00 Test Item Value Reference Range Comments POC-GLUCOSE METER (BEAKER) 152 mg/dL 70-110 TESTED AT [address] (test kjeu=1367) [place] [address] [id number] 13:48:00 Test Item Value Reference Range Comments PHOSPHORUS (BEAKER) (test ltht=279) 4.7 mg/dL 2.3-4.7 BODY FLUID CULTURE + GRAM [id number] 12:29:00 Test Item Value Reference Range Comments CULTURE (BEAKER) (test hypp=3822) No growth GRAM STAIN RESULT (BEAKER) (test <1+ White blood cells seen fomo=7121) GRAM STAIN RESULT (BEAKER) (test No organisms seen cwap=77076) POCT-GLUCOSE [id number] 11:37:00 Test Item Value Reference Range Comments POC-GLUCOSE METER (BEAKER) 295 mg/dL 70-110 TESTED AT [address] (test ojis=9099) [place] [address] POCT-GLUCOSE [id number] 07:36:00 Test Item Value Reference Range Comments POC-GLUCOSE METER (BEAKER) 219 mg/dL 70-110 TESTED AT [address] (test ftgi=4037) [place] [address] [id number] 06:49:00 Test Item Value Reference Range Comments MAGNESIUM (BEAKER) (test xrbc=681) 1.9 mg/dL 1.6-2.6 BASIC METABOLIC [id number] 06:49:00 Test Item Value Reference Range Comments SODIUM (BEAKER) (test 135 meq/L 136-145 hgxg=433) POTASSIUM (BEAKER) (test 4.2 meq/L 3.5-5.1 gzbb=924) CHLORIDE (BEAKER) (test 99 meq/L 98-107 xsad=201) CO2 (BEAKER) (test 25 meq/L 22-29 bnqr=237) BLOOD UREA NITROGEN 33 mg/dL 7-21 (BEAKER) (test dhnh=151) CREATININE (BEAKER) (test 6.64 mg/dL 0.57-1.25 ioqu=160) GLUCOSE RANDOM (BEAKER) 177 mg/dL 70-105 (test caql=855) CALCIUM (BEAKER) (test 8.9 mg/dL 8.4-10.2 fykb=902) EGFR (BEAKER) (test 8 mL/min/1.73 sq m ESTIMATED GFR IS NOT nioj=3917) ACCURATE CREATININE CLEARANCE IN PREDICTING GLOMERULAR FILTRATION RATE. ESTIMATED GFR IS NOT APPLICABLE FOR DIALYSIS PATIENTS. CBC W/PLT COUNT & AUTO [id number] 05:55:00 Test Item Value Reference Range Comments WHITE BLOOD CELL COUNT (BEAKER) (test jrvw=773) 6.3 K/ L 3.5-10.5 RED BLOOD CELL COUNT (BEAKER) (test ymlm=805) 2.51 M/ L 4.63-6.08 HEMOGLOBIN (BEAKER) (test vbyp=535) 7.7 GM/DL 13.7-17.5 HEMATOCRIT (BEAKER) (test yhxv=893) 25.2 % 40.1-51.0 MEAN CORPUSCULAR VOLUME (BEAKER) (test qmyi=698) 100.4 fL 79.0-92.2 MEAN CORPUSCULAR HEMOGLOBIN (BEAKER) (test 30.7 pg 25.7-32.2 drqp=476) MEAN CORPUSCULAR HEMOGLOBIN CONC (BEAKER) (test 30.6 GM/DL 32.3-36.5 pnwb=957) RED CELL DISTRIBUTION WIDTH (BEAKER) (test 15.7 % 11.6-14.4 fwwz=493) PLATELET COUNT (BEAKER) (test uotz=668) 211 K/CU MM 150-450 MEAN PLATELET VOLUME (BEAKER) (test opar=983) 11.9 fL 9.4-12.4 NUCLEATED RED BLOOD CELLS (BEAKER) (test 0 /100 WBC 0-0 acdt=800) NEUTROPHILS RELATIVE PERCENT (BEAKER) (test 66 % yyvi=032) LYMPHOCYTES RELATIVE PERCENT (BEAKER) (test 18 % xboc=818) MONOCYTES RELATIVE PERCENT (BEAKER) (test 11 % kclj=668) EOSINOPHILS RELATIVE PERCENT (BEAKER) (test 3 % iccq=778) BASOPHILS RELATIVE PERCENT (BEAKER) (test 1 % pgsy=093) NEUTROPHILS ABSOLUTE COUNT (BEAKER) (test 4.15 K/ L 1.78-5.38 ften=558) LYMPHOCYTES ABSOLUTE COUNT (BEAKER) (test 1.12 K/ L 1.32-3.57 lkcg=507) MONOCYTES ABSOLUTE COUNT (BEAKER) (test 0.69 K/ L 0.30-0.82 vyuy=556) EOSINOPHILS ABSOLUTE COUNT (BEAKER) (test 0.18 K/ L 0.04-0.54 kbdd=751) BASOPHILS ABSOLUTE COUNT (BEAKER) (test 0.07 K/ L 0.01-0.08 dlcj=165) IMMATURE GRANULOCYTES-RELATIVE PERCENT (BEAKER) 2 % 0-1 (test zoon=6140) POCT-GLUCOSE [id number] 21:34:00 Test Item Value Reference Range Comments POC-GLUCOSE METER (BEAKER) 218 mg/dL 70-110 TESTED AT [address] (test fcqd=9626) [facility] [address] POCT-GLUCOSE [id number] 17:42:00 Test Item Value Reference Range Comments POC-GLUCOSE METER (BEAKER) 209 mg/dL 70-110 TESTED AT [address] (test tmyw=9000) [facility] [address] POCT-GLUCOSE [id number] 12:00:00 Test Item Value Reference Range Comments POC-GLUCOSE METER (BEAKER) 256 mg/dL 70-110 TESTED AT [address] (test sbfd=8570) [facility] [address] POCT-GLUCOSE [id number] 08:07:00 Test Item Value Reference Range Comments POC-GLUCOSE METER (BEAKER) 226 mg/dL 70-110 TESTED AT [address] (test xxaa=1298) [facility] [address] BASIC METABOLIC [id number] 06:16:00 Test Item Value Reference Range Comments SODIUM (BEAKER) (test 141 meq/L 136-145 vuyw=002) POTASSIUM (BEAKER) (test 4.3 meq/L 3.5-5.1 eauc=535) CHLORIDE (BEAKER) (test 102 meq/L 98-107 jaje=174) CO2 (BEAKER) (test 28 meq/L 22-29 cnpz=225) BLOOD UREA NITROGEN 20 mg/dL 7-21 (BEAKER) (test nyeg=730) CREATININE (BEAKER) (test 4.68 mg/dL 0.57-1.25 hobr=657) GLUCOSE RANDOM (BEAKER) 181 mg/dL 70-105 (test xtkg=221) CALCIUM (BEAKER) (test 9.5 mg/dL 8.4-10.2 qfzk=506) EGFR (BEAKER) (test 13 mL/min/1.73 sq m ESTIMATED GFR IS NOT lmoe=2442) ACCURATE CREATININE CLEARANCE IN PREDICTING GLOMERULAR FILTRATION RATE. ESTIMATED GFR IS NOT APPLICABLE FOR DIALYSIS PATIENTS. VANCOMYCIN LEVEL, [id number] 06:16:00 Test Item Value Reference Range Comments VANCOMYCIN RANDOM (BEAKER) (test quwy=463) 15.3 ug/mL Reference Range: No NormalsCBC W/PLT COUNT & AUTO [id number] 06: 16:00 Test Item Value Reference Range Comments WHITE BLOOD CELL COUNT (BEAKER) (test owhb=439) 9.2 K/ L 3.5-10.5 RED BLOOD CELL COUNT (BEAKER) (test hwzb=278) 2.82 M/ L 4.63-6.08 HEMOGLOBIN (BEAKER) (test jcyf=764) 8.7 GM/DL 13.7-17.5 HEMATOCRIT (BEAKER) (test fvqk=521) 27.9 % 40.1-51.0 MEAN CORPUSCULAR VOLUME (BEAKER) (test ftgx=417) 98.9 fL 79.0-92.2 MEAN CORPUSCULAR HEMOGLOBIN (BEAKER) (test 30.9 pg 25.7-32.2 eahx=472) MEAN CORPUSCULAR HEMOGLOBIN CONC (BEAKER) (test 31.2 GM/DL 32.3-36.5 scjy=458) RED CELL DISTRIBUTION WIDTH (BEAKER) (test 15.7 % 11.6-14.4 ijpg=326) PLATELET COUNT (BEAKER) (test pvau=883) 315 K/CU MM 150-450 MEAN PLATELET VOLUME (BEAKER) (test dcex=457) 12.5 fL 9.4-12.4 NUCLEATED RED BLOOD CELLS (BEAKER) (test 0 /100 WBC 0-0 gfkg=657) NEUTROPHILS RELATIVE PERCENT (BEAKER) (test 75 % dkeu=489) LYMPHOCYTES RELATIVE PERCENT (BEAKER) (test 11 % dcpw=388) MONOCYTES RELATIVE PERCENT (BEAKER) (test 11 % dwok=695) EOSINOPHILS RELATIVE PERCENT (BEAKER) (test 1 % soxs=309) BASOPHILS RELATIVE PERCENT (BEAKER) (test 1 % yybg=356) NEUTROPHILS ABSOLUTE COUNT (BEAKER) (test 6.89 K/ L 1.78-5.38 dgqp=294) LYMPHOCYTES ABSOLUTE COUNT (BEAKER) (test 0.98 K/ L 1.32-3.57 yyri=067) MONOCYTES ABSOLUTE COUNT (BEAKER) (test 1.00 K/ L 0.30-0.82 mpns=448) EOSINOPHILS ABSOLUTE COUNT (BEAKER) (test 0.12 K/ L 0.04-0.54 rrbg=761) BASOPHILS ABSOLUTE COUNT (BEAKER) (test 0.06 K/ L 0.01-0.08 emue=658) IMMATURE GRANULOCYTES-RELATIVE PERCENT (BEAKER) 1 % 0-1 (test bxkx=0020) [id number] 06:07:00 Test Item Value Reference Range Comments MAGNESIUM (BEAKER) (test fwxo=799) 2.0 mg/dL 1.6-2.6 POCT-GLUCOSE [id number] 21:22:00 Test Item Value Reference Range Comments POC-GLUCOSE METER (BEAKER) 276 mg/dL 70-110 TESTED AT [facility] [address] [facility] (test wbip=5733) [facility] [address] BODY FLUID CELL COUNT WITH [id number] 19:44:00 Test Item Value Reference Range Comments APPEARANCE FLUID (BEAKER) (test mntg=359) Slightly Hazy Clear COLOR FLUID (BEAKER) (test kwyc=008) Yellow Colorless, Straw RBC FLUID (BEAKER) (test ntnq=210) 15 /cu mm <=1 ADJUSTED WBC FLUID (BEAKER) (test uaok=8715) 57 /cu mm <=5 LINING CELLS (BEAKER) (test uncv=2102) 6 /cu mm <=1 NEUTROPHILS FLUID (BEAKER) (test nkti=8069) 35 % LYMPHS FLUID (BEAKER) (test pjsc=962) 29 % MONO/MACROPHAGE FLUID (BEAKER) (test 36 % iliw=771) EOSINOPHILS FLUID (BEAKER) (test fttt=390) 0 % BASO FLUID (BEAKER) (test ozma=528) 0 % CONTAINER BODY FLUID (BEAKER) (test EDTA Tube qnzx=3809) BODY FLUID CELL COUNT WITH [id number] 19:38:00 Test Item Value Reference Range Comments APPEARANCE FLUID (BEAKER) (test ozzr=981) Clear Clear COLOR FLUID (BEAKER) (test stid=501) Straw Colorless, Straw RBC FLUID (BEAKER) (test azay=062) 28 /cu mm <=1 ADJUSTED WBC FLUID (BEAKER) (test hbni=0630) 54 /cu mm <=5 LINING CELLS (BEAKER) (test tumh=5864) 4 /cu mm <=1 NEUTROPHILS FLUID (BEAKER) (test hxud=6018) 23 % LYMPHS FLUID (BEAKER) (test ozze=344) 33 % MONO/MACROPHAGE FLUID (BEAKER) (test ypig=224) 44 % EOSINOPHILS FLUID (BEAKER) (test ybul=716) 0 % BASO FLUID (BEAKER) (test izzs=396) 0 % CONTAINER BODY FLUID (BEAKER) (test vqxx=8682) EDTA Tube LACTATE DEHYDROGENASE (LDH), BODY [id number] 19:16:00 Test Item Value Reference Range Comments LACTATE DEHYDROGENASE FLUID (BEAKER) 163 U/L Light's criteria identifies (test rbpy=624) effusions if one or more are pre Absence of reference range indicates that normals have not been defined.Assay performance has not been validated for this type of specimen.PROTEIN, BODY [id number] 19:16:00 Test Item Value Reference Range Comments PROTEIN FLUID (BEAKER) (test 4.2 g/dL Light's criteria identifies ygsl=203) effusions if one or more are pre Absence of reference range indicates that normals have not been defined.Assay performance has not been validated for this type of specimen.RAD, CHEST, PA OR AP, 1 [id number] 19:12:00Reason for exam:->s/p left thoracentesisFINAL REPORT History: Status post left thoracentesis. Comparison: Same [id number] hours Findings: A single view of the [...] Alba MDReport Verified Date/Time: 19:12:04 Reading Location: [address] Reading Room PH, BODY [id number] 19:06:00 Test Item Value Reference Range Comments PH, BODY FLUID (BEAKER) (test qrpg=0567) 8.00 ALBUMIN, BODY [id number] 18:55:00 Test Item Value Reference Range Comments ALBUMIN FLUID (BEAKER) (test rkmw=390) 2.9 gm/dL Reference Range: No Normals Assay performance has not been validated for this type of specimen.AMYLASE, BODY [id number] 18:55:00 Test Item Value Reference Range Comments AMYLASE FLUID (BEAKER) (test vnet=321) 18 U/L 30-110 Absence of reference range indicates that normals have not been defined.Assay performance has not been validated for this type of specimen.LACTATE DEHYDROGENASE (LDH), BODY [id number] 18:55:00 Test Item Value Reference Range Comments LACTATE DEHYDROGENASE FLUID (BEAKER) 161 U/L Light's criteria identifies (test nurh=939) effusions if one or more are pre Absence of reference range indicates that normals have not been defined.Assay performance has not been validated for this type of specimen.PROTEIN, BODY [id number] 18:55:00 Test Item Value Reference Range Comments PROTEIN FLUID (BEAKER) (test 4.3 g/dL Light's criteria identifies pkrq=445) effusions if one or more are pre Absence of reference range indicates that normals have not been defined.Assay performance has not been validated for this type of specimen.TRIGLYCERIDES, BODY [id number] 18:55:00 Test Item Value Reference Range Comments TRIGLYCERIDES FLUID (BEAKER) (test plck=314) 49 mg/dL Reference Range: No Normals Assay performance has not been validated for this type of specimen.CREATININE, BODY [id number] 18:55:00 Test Item Value Reference Range Comments CREATININE FLUID (BEAKER) (test tvsr=457) 3.31 mg/dL Reference Range: No Normals Assay performance has not been validated for this type of specimen.GLUCOSE, BODY [id number] 18:55:00 Test Item Value Reference Range Comments GLUCOSE, BODY FLUID (BEAKER) (test lfto=2992) 204 mg/dL 70-110 Absence of reference range indicates that normals have not been defined.Assay performance has not been validated for this type of specimen.SPECIFIC GRAVITY, BODY [id number] 18:49:00 Test Item Value Reference Range Comments SP GRAVITY MISCELLANEOUS (BEAKER) (test iwes=323) 1.030 Reference Range: No NormalsU/S, [id number] 18:35:00Laterality?-> LeftReason for exam:->pleural effusionFINAL REPORT Ultrasound Guided left Thoracentesis: Modality: Ultrasound Approach: Left Posterior Lateral Intercostal Sedation: None Findings: Informed consent was obtained. After an appropriate site for drainage was found, the skin was prepped and draped, and local anesthesia was given. A 4 Turkish catheter was inserted into the left pleural space under ultrasound guidance,and approximately 1000 cc of yellow pleural fluid was aspirated. The catheter was removed. No immediate complications were noted. A postprocedure chest radiograph revealed no evidence of pneumothorax. Impression: 1. Uncomplicated ultrasound-guided left thoracentesis. Signed: Perfecto Arzate Verified Date /Time: 01/19/2019 18:35:33 Reading Location: [address] Transitional Reading Room POCT-GLUCOSE [id number] 18:27:00 Test Item Value Reference Range Comments POC-GLUCOSE METER (BEAKER) 245 mg/dL 70-110 TESTED AT [address] (test dfrw=8127) [place] [id number] POCT-GLUCOSE [id number] 13:05:00 Test Item Value Reference Range Comments POC-GLUCOSE METER (BEAKER) 169 mg/dL 70-110 TESTED AT [address] (test vwbw=6242) [place] [id number] RAD, CHEST, 1 VIEW, NON [id number] 10:50:00Reason for exam:->s/p pericardial drainShould this be [...] MDReport Verified Date/Time: 01/19/2019 10:50:13 Reading Location: [address] Transitional Reading Room VANCOMYCIN LEVEL, [id number] 09:24:00 Test Item Value Reference Range Comments VANCOMYCIN RANDOM (BEAKER) (test ermu=388) 31.8 ug/mL Reference Range: No NormalsBASIC METABOLIC [id number] 05:55:00 Test Item Value Reference Range Comments SODIUM (BEAKER) (test 138 meq/L 136-145 aixd=923) POTASSIUM (BEAKER) (test 3.9 meq/L 3.5-5.1 vfqj=195) CHLORIDE (BEAKER) (test 101 meq/L 98-107 wbuv=308) CO2 (BEAKER) (test 26 meq/L 22-29 cuww=735) BLOOD UREA NITROGEN 19 mg/dL 7-21 (BEAKER) (test evsg=208) CREATININE (BEAKER) (test 4.62 mg/dL 0.57-1.25 nlge=559) GLUCOSE RANDOM (BEAKER) 149 mg/dL 70-105 (test ydii=968) CALCIUM (BEAKER) (test 9.3 mg/dL 8.4-10.2 afod=565) EGFR (BEAKER) (test 13 mL/min/1.73 sq m ESTIMATED GFR IS NOT jezw=6916) ACCURATE CREATININE CLEARANCE IN PREDICTING GLOMERULAR FILTRATION RATE. ESTIMATED GFR IS NOT APPLICABLE FOR DIALYSIS PATIENTS. CBC W/PLT COUNT & AUTO [id number] 05:07:00 Test Item Value Reference Range Comments WHITE BLOOD CELL COUNT (BEAKER) (test hvmp=226) 9.1 K/ L 3.5-10.5 RED BLOOD CELL COUNT (BEAKER) (test rdoo=872) 2.74 M/ L 4.63-6.08 HEMOGLOBIN (BEAKER) (test dnzv=250) 8.6 GM/DL 13.7-17.5 HEMATOCRIT (BEAKER) (test olim=691) 26.6 % 40.1-51.0 MEAN CORPUSCULAR VOLUME (BEAKER) (test krke=125) 97.1 fL 79.0-92.2 MEAN CORPUSCULAR HEMOGLOBIN (BEAKER) (test 31.4 pg 25.7-32.2 gmuf=306) MEAN CORPUSCULAR HEMOGLOBIN CONC (BEAKER) (test 32.3 GM/DL 32.3-36.5 xvop=954) RED CELL DISTRIBUTION WIDTH (BEAKER) (test 15.4 % 11.6-14.4 kkeh=035) PLATELET COUNT (BEAKER) (test spop=909) 283 K/CU MM 150-450 MEAN PLATELET VOLUME (BEAKER) (test vxeb=183) 12.2 fL 9.4-12.4 NUCLEATED RED BLOOD CELLS (BEAKER) (test 0 /100 WBC 0-0 bxgx=487) NEUTROPHILS RELATIVE PERCENT (BEAKER) (test 71 % ctdw=142) LYMPHOCYTES RELATIVE PERCENT (BEAKER) (test 14 % vdnq=999) MONOCYTES RELATIVE PERCENT (BEAKER) (test 12 % cnvq=296) EOSINOPHILS RELATIVE PERCENT (BEAKER) (test 1 % yuqe=256) BASOPHILS RELATIVE PERCENT (BEAKER) (test 1 % iawq=372) NEUTROPHILS ABSOLUTE COUNT (BEAKER) (test 6.48 K/ L 1.78-5.38 pnyv=590) LYMPHOCYTES ABSOLUTE COUNT (BEAKER) (test 1.25 K/ L 1.32-3.57 wbtk=233) MONOCYTES ABSOLUTE COUNT (BEAKER) (test 1.07 K/ L 0.30-0.82 bgvi=728) EOSINOPHILS ABSOLUTE COUNT (BEAKER) (test 0.06 K/ L 0.04-0.54 dsru=085) BASOPHILS ABSOLUTE COUNT (BEAKER) (test 0.07 K/ L 0.01-0.08 pjxs=013) IMMATURE GRANULOCYTES-RELATIVE PERCENT (BEAKER) 2 % 0-1 (test uuyy=7036) POCT-GLUCOSE [id number] 00:04:00 Test Item Value Reference Range Comments POC-GLUCOSE METER (BEAKER) 134 mg/dL 70-110 TESTED AT [address] (test vixl=6662) [place] [address] POCT-GLUCOSE [id number] 21:27:00 Test Item Value Reference Range Comments POC-GLUCOSE METER (BEAKER) 227 mg/dL 70-110 TESTED AT [address] (test defm=6786) [place] [address] BODY FLUID CELL COUNT WITH [id number] 19:53:00 Test Item Value Reference Range Comments APPEARANCE FLUID (BEAKER) (test rzpg=794) Bloody Clear COLOR FLUID (BEAKER) (test mufd=676) Red Colorless, Straw RBC FLUID (BEAKER) (test frql=857) 182039 /cu mm <=1 ADJUSTED WBC FLUID (BEAKER) (test krmi=3864) 3915 /cu mm <=5 LINING CELLS (BEAKER) (test jyfe=9433) 0 /cu mm <=1 NEUTROPHILS FLUID (BEAKER) (test bzlg=9558) 70 % LYMPHS FLUID (BEAKER) (test cxih=931) 15 % MONO/MACROPHAGE FLUID (BEAKER) (test 14 % cwxi=587) EOSINOPHILS FLUID (BEAKER) (test ziqv=739) 1 % BASO FLUID (BEAKER) (test eyss=383) 0 % CONTAINER BODY FLUID (BEAKER) (test EDTA Tube uaql=1862) ALBUMIN, BODY [id number] 19:29:00 Test Item Value Reference Range Comments ALBUMIN FLUID (BEAKER) (test sohm=209) 3.3 gm/dL Reference Range: No Normals Assay performance has not been validated for this type of specimen.[id number] 09:21:00 Test Item Value Reference Range Comments PROCALCITONIN (BEAKER) (test egjs=3010) 0.53 ng/mL <0.05 SEPSIS RISK (ng/mL)Low: 0.05-0.50Intermediate: 0.51-2.00High: & gt;=2.01TROPONIN [id number] 08:35:00 Test Item Value Reference Range Comments TROPONIN I (BEAKER) (test fsvc=256) 0.12 ng/mL 0.00-0.03 Troponin I (TnI) levels [...] NATRIURETIC PEPTIDE (BEAKER) (test 198 pg/mL 0-100 aset=186) BASIC METABOLIC [id number] 08:30:00 Test Item Value Reference Range Comments SODIUM (BEAKER) (test 137 meq/L 136-145 pkdw=697) POTASSIUM (BEAKER) (test 3.6 meq/L 3.5-5.1 vwka=605) CHLORIDE (BEAKER) (test 99 meq/L 98-107 wyia=332) CO2 (BEAKER) (test 25 meq/L 22-29 jyhv=570) BLOOD UREA NITROGEN 21 mg/dL 7-21 (BEAKER) (test iqir=124) CREATININE (BEAKER) (test 5.31 mg/dL 0.57-1.25 mkqf=420) GLUCOSE RANDOM (BEAKER) 140 mg/dL 70-105 (test kdss=952) CALCIUM (BEAKER) (test 9.5 mg/dL 8.4-10.2 fpqk=222) EGFR (BEAKER) (test 11 mL/min/1.73 sq m ESTIMATED GFR IS NOT aooj=1363) ACCURATE CREATININE CLEARANCE IN PREDICTING GLOMERULAR FILTRATION RATE. ESTIMATED GFR IS NOT APPLICABLE FOR DIALYSIS PATIENTS. HEPATIC FUNCTION [id number] 08:28:00 Test Item Value Reference Range Comments TOTAL PROTEIN (BEAKER) (test nmgv=667) 6.9 gm/dL 6.0-8.3 ALBUMIN (BEAKER) (test fqcv=8728) 3.9 g/dL 3.5-5.0 BILIRUBIN TOTAL (BEAKER) (test etrn=811) 0.6 mg/dL 0.2-1.2 BILIRUBIN DIRECT (BEAKER) (test efbu=050) 0.2 mg/dL 0.1-0.5 ALKALINE PHOSPHATASE (BEAKER) (test yjnv=089) 89 U/L 40-150 AST (SGOT) (BEAKER) (test cobz=480) 10 U/L 5-34 ALT (SGPT) (BEAKER) (test xkpd=218) 14 U/L 6-55 PROTHROMBIN [id number] 08:25:00 Test Item Value Reference Range Comments PROTIME (BEAKER) (test ngxb=340) 16.7 seconds 11.7-14.7 INR (BEAKER) (test mmyi=672) 1.4 <=5.9 RECOMMENDED COUMADIN/WARFARIN INR THERAPY RANGESSTANDARD DOSE: 2.0 - 3.0 Includes: PROPHYLAXIS forvenous thrombosis, systemic embolization; TREATMENT for venous thrombosis and/or pulmonary embolus.HIGH RISK: Target INR is 2.5-3.5 for patients with mechanical heart valves.RAD, CHEST, 1 VIEW, NON [id number] 08:09:00Reason for exam:->feverShould this be performed [...] lung appears clear. No pneumothorax. Signed: Graham Cahn Verified Date/Time: 01/18/2019 08:09:08 Reading Location: [facility] Radiology Reading Room CBC W/PLT COUNT & AUTO [id number] 08:08:00 Test Item Value Reference Range Comments WHITE BLOOD CELL COUNT (BEAKER) (test fiht=695) 11.0 K/ L 3.5-10.5 RED BLOOD CELL COUNT (BEAKER) (test zslx=245) 2.51 M/ L 4.63-6.08 HEMOGLOBIN (BEAKER) (test uynu=000) 7.8 GM/DL 13.7-17.5 HEMATOCRIT (BEAKER) (test yhvf=199) 25.0 % 40.1-51.0 MEAN CORPUSCULAR VOLUME (BEAKER) (test sjcs=593) 99.6 fL 79.0-92.2 MEAN CORPUSCULAR HEMOGLOBIN (BEAKER) (test 31.1 pg 25.7-32.2 ykkn=594) MEAN CORPUSCULAR HEMOGLOBIN CONC (BEAKER) (test 31.2 GM/DL 32.3-36.5 iuzx=049) RED CELL DISTRIBUTION WIDTH (BEAKER) (test 15.2 % 11.6-14.4 clyn=863) PLATELET COUNT (BEAKER) (test sxpk=814) 294 K/CU MM 150-450 MEAN PLATELET VOLUME (BEAKER) (test tcmy=203) 11.7 fL 9.4-12.4 NUCLEATED RED BLOOD CELLS (BEAKER) (test 0 /100 WBC 0-0 chvf=817) NEUTROPHILS RELATIVE PERCENT (BEAKER) (test 71 % bptu=552) LYMPHOCYTES RELATIVE PERCENT (BEAKER) (test 15 % yyyp=824) MONOCYTES RELATIVE PERCENT (BEAKER) (test 11 % hbbs=713) EOSINOPHILS RELATIVE PERCENT (BEAKER) (test 1 % tiwe=874) BASOPHILS RELATIVE PERCENT (BEAKER) (test 1 % dmrb=490) NEUTROPHILS ABSOLUTE COUNT (BEAKER) (test 7.74 K/ L 1.78-5.38 wgfh=502) LYMPHOCYTES ABSOLUTE COUNT (BEAKER) (test 1.67 K/ L 1.32-3.57 gqqw=109) MONOCYTES ABSOLUTE COUNT (BEAKER) (test 1.19 K/ L 0.30-0.82 oasr=466) EOSINOPHILS ABSOLUTE COUNT (BEAKER) (test 0.09 K/ L 0.04-0.54 rpyd=522) BASOPHILS ABSOLUTE COUNT (BEAKER) (test 0.09 K/ L 0.01-0.08 niho=648) IMMATURE GRANULOCYTES-RELATIVE PERCENT (BEAKER) 2 % 0-1 (test cflt=8686) POCT-LACTIC ACID, [id number] 08:06:00 Test Item Value Reference Range Comments POC-LACTIC ACID, VENOUS 1.0 mmol/L 0.9-1.7 TESTED AT [address] (BEAKER) (test hens=3944) [facility] [address] BLOOD [id number] 08:00:00 Test Item Value Reference Range Comments CULTURE (BEAKER) (test inhp=4542) No growth in 5 days BLOOD [id number] 08:00:00 Test Item Value Reference Range Comments CULTURE (BEAKER) (test aofd=1782) No growth in 5 days HEMOGLOBIN [id number] 20:14:00 Test Item Value Reference Range Comments HEMOGLOBIN A1C (BEAKER) (test ukfq=157) 6.8 % 4.3-6.1 RAD, CHEST, 1 VIEW, NON [id number] 16:01:00Reason for exam:->respiratory insufficiencyShould this be performed [...] MDReport Verified Date/Time: 01/08/2019 16:01:59 Reading Location: [facility] [id number] Consult Reading Room Electronically signedby: EDD RUIZ M.D. on 01/08/2019 04:01 PMPOCT- GLUCOSE [id number] 12:01:00 Test Item Value Reference Range Comments POC-GLUCOSE METER (BEAKER) 178 mg/dL 70-110 TESTED AT [facility] [address] [place] [address] (test tgcx=3453) [facility] [address] BASIC METABOLIC [id number] 06:13:00 Test Item Value Reference Range Comments SODIUM (BEAKER) (test 138 meq/L 136-145 tmxy=569) POTASSIUM (BEAKER) (test 4.6 meq/L 3.5-5.1 lpxu=264) CHLORIDE (BEAKER) (test 101 meq/L 98-107 cysq=886) CO2 (BEAKER) (test 23 meq/L 22-29 ebvw=302) BLOOD UREA NITROGEN 36 mg/dL 7-21 (BEAKER) (test mdct=721) CREATININE (BEAKER) (test 6.83 mg/dL 0.57-1.25 odyk=743) GLUCOSE RANDOM (BEAKER) 166 mg/dL 70-105 (test zdfh=998) CALCIUM (BEAKER) (test 9.3 mg/dL 8.4-10.2 sgpw=130) EGFR (BEAKER) (test 8 mL/min/1.73 sq m ESTIMATED GFR IS NOT wjtl=1267) ACCURATE CREATININE CLEARANCE IN PREDICTING GLOMERULAR FILTRATION RATE. ESTIMATED GFR IS NOT APPLICABLE FOR DIALYSIS PATIENTS. CBC (HEMOGRAM ONLY)2019-01-08 05:22:00 Test Item Value Reference Range Comments WHITE BLOOD CELL COUNT (BEAKER) (test ydjt=748) 8.7 K/ L 3.5-10.5 RED BLOOD CELL COUNT (BEAKER) (test pzot=022) 2.86 M/ L 4.63-6.08 HEMOGLOBIN (BEAKER) (test gdao=477) 9.0 GM/DL 13.7-17.5 HEMATOCRIT (BEAKER) (test gfar=907) 29.4 % 40.1-51.0 MEAN CORPUSCULAR VOLUME (BEAKER) (test dyhl=508) 102.8 fL 79.0-92.2 MEAN CORPUSCULAR HEMOGLOBIN (BEAKER) (test 31.5 pg 25.7-32.2 plub=327) MEAN CORPUSCULAR HEMOGLOBIN CONC (BEAKER) (test 30.6 GM/DL 32.3-36.5 uehw=114) RED CELL DISTRIBUTION WIDTH (BEAKER) (test 14.5 % 11.6-14.4 oero=369) PLATELET COUNT (BEAKER) (test acnb=295) 256 K/CU MM 150-450 MEAN PLATELET VOLUME (BEAKER) (test mzmi=057) 11.9 fL 9.4-12.4 NUCLEATED RED BLOOD CELLS (BEAKER) (test 0 /100 WBC 0-0 zkad=609) POCT-GLUCOSE [id number] 21:50:00 Test Item Value Reference Range Comments POC-GLUCOSE METER (BEAKER) 211 mg/dL 70-110 TESTED AT [address] (test cjfw=5062) [place] [address] POCT-GLUCOSE [id number] 18:22:00 Test Item Value Reference Range Comments POC-GLUCOSE METER (BEAKER) 118 mg/dL 70-110 TESTED AT [address] (test ksdx=5094) [place] [id number] POCT-GLUCOSE [id number] 12:04:00 Test Item Value Reference Range Comments POC-GLUCOSE METER (BEAKER) 158 mg/dL 70-110 TESTED AT [address] (test ewaq=5924) [place] [address] RAD, CHEST, 1 VIEW, NON [id number] 10:43:00Reason for exam:->respiratory insufficiencyShould this be performed at the bedside?->YesFINAL REPORT INDICATION: respiratory insufficiency COMPARISON:January 06 TECHNIQUE: Chest radiograph, single view, portable technique. FINDINGS / IMPRESSION: Enlarged heart shadow andnonspecific left retrocardiac opacity again demonstrated. Pulmonary veins are prominent but no overtpulmonary edema. No pneumothorax. Osseous structures unremarkable. Signed: Kem Turk MDReportVerified Date/Time: 01/07/2019 10:43:17 Reading Location: [facility] Radiology Reading Room POCT-GLUCOSE [id number] 08:09:00 Test Item Value Reference Range Comments POC-GLUCOSE METER (BEAKER) 145 mg/dL 70-110 TESTED AT [address] (test sjkz=7969) [facility] [address] POCT-GLUCOSE [id number] 21:32:00 Test Item Value Reference Range Comments POC-GLUCOSE METER (BEAKER) 274 mg/dL 70-110 TESTED AT [address] (test ntag=2062) [facility] [address] POCT-GLUCOSE [id number] 17:20:00 Test Item Value Reference Range Comments POC-GLUCOSE METER (BEAKER) 215 mg/dL 70-110 TESTED AT [address] (test pqtl=5645) [facility] [address] POCT-GLUCOSE [id number] 14:33:00 Test Item Value Reference Range Comments POC-GLUCOSE METER (BEAKER) 200 mg/dL 70-110 TESTED AT [address] (test xuzk=8401) [facility] [address] POCT-GLUCOSE [id number] 11:13:00 Test Item Value Reference Range Comments POC-GLUCOSE METER (BEAKER) 289 mg/dL 70-110 TESTED AT [address] (test hwjm=2962) [facility] [address] POCT-GLUCOSE [id number] 08:08:00 Test Item Value Reference Range Comments POC-GLUCOSE METER (BEAKER) 180 mg/dL 70-110 TESTED AT [address] (test uxtf=5318) [facility] [address] RAD, CHEST, 1 VIEW, NON [id number] 07:40:00Reason for exam:->respiratory insufficiencyShould this be performed at the bedside?->YesFINAL REPORT Chest dated 01/06/2019 COMPARISON: 01/05/2019 Clinical Information:respiratory insufficiency Comment: Heart is enlarged. Pulmonary vasculature is indistinct. Interstitial disease is seen bilaterally suggestive of vascular congestion unchanged from prior study. There is small left pleural effusion. Signed: Yuridia Wallace MDReport Verified Date/Time: 01/06/2019 07:40:30 Reading Location: [address] Consult Reading Room Electronically signed by: YURIDIA WALLACE M.D.on 01/06/2019 07:40 AMBASIC METABOLIC [id number] 07: 18:00 Test Item Value Reference Range Comments SODIUM (BEAKER) (test 136 meq/L 136-145 dfsf=840) POTASSIUM (BEAKER) (test 5.2 meq/L 3.5-5.1 tvzo=880) CHLORIDE (BEAKER) (test 100 meq/L 98-107 kaiq=207) CO2 (BEAKER) (test 21 meq/L 22-29 xrbz=399) BLOOD UREA NITROGEN 49 mg/dL 7-21 (BEAKER) (test bpxp=200) CREATININE (BEAKER) (test 8.64 mg/dL 0.57-1.25 fatz=900) GLUCOSE RANDOM (BEAKER) 146 mg/dL 70-105 (test rrsn=974) CALCIUM (BEAKER) (test 9.6 mg/dL 8.4-10.2 ykde=447) EGFR (BEAKER) (test 6 mL/min/1.73 sq m ESTIMATED GFR IS NOT mxep=0385) ACCURATE CREATININE CLEARANCE IN PREDICTING GLOMERULAR FILTRATION RATE. ESTIMATED GFR IS NOT APPLICABLE FOR DIALYSIS PATIENTS. VANCOMYCIN LEVEL, [id number] 07:13:00 Test Item Value Reference Range Comments VANCOMYCIN RANDOM (BEAKER) (test xwta=188) 17.4 ug/mL Reference Range: No [id number] 07:09:00 Test Item Value Reference Range Comments MAGNESIUM (BEAKER) (test vkub=103) 2.1 mg/dL 1.6-2.6 POCT-GLUCOSE [id number] 21:46:00 Test Item Value Reference Range Comments POC-GLUCOSE METER (BEAKER) 173 mg/dL 70-110 TESTED AT [facility] [address] [facility] (test zhto=1647) [facility] [address] POCT-GLUCOSE [id number] 16:20:00 Test Item Value Reference Range Comments POC-GLUCOSE METER (BEAKER) 172 mg/dL 70-110 TESTED AT [facility] [address] [facility] (test tqea=8932) [facility] [address] POCT-GLUCOSE [id number] 12:21:00 Test Item Value Reference Range Comments POC-GLUCOSE METER (BEAKER) 260 mg/dL 70-110 TESTED AT [address] (test hfjl=1941) [facility] [address] POCT-GLUCOSE [id number] 08:37:00 Test Item Value Reference Range Comments POC-GLUCOSE METER (BEAKER) 153 mg/dL 70-110 TESTED AT [address] (test sxeq=7901) [facility] [address] RAD, CHEST, 1 VIEW, NON [id number] 07:04:00Reason for exam:->respiratory insufficiencyShould this be performed at the bedside?->YesFINAL REPORT RAD, CHEST, 1 VIEW, NON DEPT INDICATION: respiratory insufficiency COMPARISON: Prior day's exam FINDINGS: Portable frontal view of the chest. IMPRESSION: Support Lines: External leads Lungs and pleura: Bibasilar subsegmental atelectasis No pneumothorax.Heart and mediastinum: Stable contours. Additional findings: None. Signed: Beulah Last Verified Date/Time: 01/05/2019 07:04:08 Reading Location: [address] Neuro Reading Room Electronically signed by: BEULAH LAST MD on 2018 07:04 AMBASIC METABOLIC [id number] 05:47:00 Test Item Value Reference Range Comments SODIUM (BEAKER) (test 133 meq/L 136-145 fjgc=423) POTASSIUM (BEAKER) (test 5.1 meq/L 3.5-5.1 ibvl=779) CHLORIDE (BEAKER) (test 97 meq/L 98-107 dhuc=290) CO2 (BEAKER) (test 25 meq/L 22-29 evyu=907) BLOOD UREA NITROGEN 33 mg/dL 7-21 (BEAKER) (test snct=324) CREATININE (BEAKER) (test 6.56 mg/dL 0.57-1.25 jwsk=397) GLUCOSE RANDOM (BEAKER) 156 mg/dL 70-105 (test qzdv=737) CALCIUM (BEAKER) (test 9.6 mg/dL 8.4-10.2 oavk=767) EGFR (BEAKER) (test 9 mL/min/1.73 sq m ESTIMATED GFR IS NOT ylff=9626) ACCURATE CREATININE CLEARANCE IN PREDICTING GLOMERULAR FILTRATION RATE. ESTIMATED GFR IS NOT APPLICABLE FOR DIALYSIS PATIENTS. [id number] 05:36:00 Test Item Value Reference Range Comments MAGNESIUM (BEAKER) (test fbrm=858) 1.9 mg/dL 1.6-2.6 CBC W/PLT COUNT & AUTO [id number] 05:18:00 Test Item Value Reference Range Comments WHITE BLOOD CELL COUNT (BEAKER) (test jvcc=250) 10.5 K/ L 3.5-10.5 RED BLOOD CELL COUNT (BEAKER) (test rlth=139) 2.73 M/ L 4.63-6.08 HEMOGLOBIN (BEAKER) (test azcd=197) 8.6 GM/DL 13.7-17.5 HEMATOCRIT (BEAKER) (test hltt=715) 27.1 % 40.1-51.0 MEAN CORPUSCULAR VOLUME (BEAKER) (test rqbz=027) 99.3 fL 79.0-92.2 MEAN CORPUSCULAR HEMOGLOBIN (BEAKER) (test 31.5 pg 25.7-32.2 orza=688) MEAN CORPUSCULAR HEMOGLOBIN CONC (BEAKER) (test 31.7 GM/DL 32.3-36.5 imof=015) RED CELL DISTRIBUTION WIDTH (BEAKER) (test 14.4 % 11.6-14.4 gclm=809) PLATELET COUNT (BEAKER) (test jynx=808) 154 K/CU MM 150-450 MEAN PLATELET VOLUME (BEAKER) (test rlxp=383) 12.5 fL 9.4-12.4 NUCLEATED RED BLOOD CELLS (BEAKER) (test 0 /100 WBC 0-0 tanb=890) NEUTROPHILS RELATIVE PERCENT (BEAKER) (test 78 % riuz=610) LYMPHOCYTES RELATIVE PERCENT (BEAKER) (test 11 % muxz=412) MONOCYTES RELATIVE PERCENT (BEAKER) (test 10 % pbyz=378) EOSINOPHILS RELATIVE PERCENT (BEAKER) (test 0 % eevo=670) BASOPHILS RELATIVE PERCENT (BEAKER) (test 1 % danu=728) NEUTROPHILS ABSOLUTE COUNT (BEAKER) (test 8.18 K/ L 1.78-5.38 vdvu=725) LYMPHOCYTES ABSOLUTE COUNT (BEAKER) (test 1.11 K/ L 1.32-3.57 kcjf=404) MONOCYTES ABSOLUTE COUNT (BEAKER) (test 1.04 K/ L 0.30-0.82 ijiq=582) EOSINOPHILS ABSOLUTE COUNT (BEAKER) (test 0.03 K/ L 0.04-0.54 dbfn=848) BASOPHILS ABSOLUTE COUNT (BEAKER) (test 0.05 K/ L 0.01-0.08 pgai=412) IMMATURE GRANULOCYTES-RELATIVE PERCENT (BEAKER) 1 % 0-1 (test kgvr=1207) BLOOD GAS, [id number] 05:12:00 Test Item Value Reference Range Comments PH ARTERIAL (BEAKER) (test cgwn=022) 7.44 7.35-7.45 PCO2 ARTERIAL (BEAKER) (test zick=512) 41 mmHg 35-45 PO2 ARTERIAL (BEAKER) (test wwjm=583) 118 mmHg 80-90 O2 SATURATION ARTERIAL (BEAKER) (test odlt=833) 98.0 % 96.0-97.0 HCO3 ARTERIAL (BEAKER) (test axme=164) 26 mmol/L 21-29 BASE EXCESS ARTERIAL (BEAKER) (test nosw=325) 2.7 mmol/L -2.0-3.0 PATIENT TEMPERATURE (BEAKER) (test etyn=5263) 39.5 C FIO2 (BEAKER) (test ohjk=4618) 21.0 % LACTIC ACID, [id number] 05:00:00 Test Item Value Reference Range Comments LACTATE BLOOD ARTERIAL (2) (BEAKER) (test 1.0 mmol/L 0.5-2.2 vzba=8817) BASIC METABOLIC [id number] 23:29:00 Test Item Value Reference Range Comments SODIUM (BEAKER) (test 135 meq/L 136-145 cuww=925) POTASSIUM (BEAKER) (test 4.9 meq/L 3.5-5.1 rtsm=305) CHLORIDE (BEAKER) (test 98 meq/L 98-107 kvav=054) CO2 (BEAKER) (test 26 meq/L 22-29 nksm=263) BLOOD UREA NITROGEN 29 mg/dL 7-21 (BEAKER) (test inph=129) CREATININE (BEAKER) (test 6.08 mg/dL 0.57-1.25 vbtt=138) GLUCOSE RANDOM (BEAKER) 192 mg/dL 70-105 (test opyz=501) CALCIUM (BEAKER) (test 9.6 mg/dL 8.4-10.2 aisg=899) EGFR (BEAKER) (test 9 mL/min/1.73 sq m ESTIMATED GFR IS NOT sycm=4875) ACCURATE CREATININE CLEARANCE IN PREDICTING GLOMERULAR FILTRATION RATE. ESTIMATED GFR IS NOT APPLICABLE FOR DIALYSIS PATIENTS. [id number] 23:17:00 Test Item Value Reference Range Comments MAGNESIUM (BEAKER) (test sbsu=671) 1.9 mg/dL 1.6-2.6 CBC W/PLT COUNT & AUTO [id number] 22:52:00 Test Item Value Reference Range Comments WHITE BLOOD CELL COUNT (BEAKER) (test inlr=411) 10.4 K/ L 3.5-10.5 RED BLOOD CELL COUNT (BEAKER) (test tklm=280) 2.82 M/ L 4.63-6.08 HEMOGLOBIN (BEAKER) (test cbvc=329) 8.8 GM/DL 13.7-17.5 HEMATOCRIT (BEAKER) (test wnxr=993) 28.0 % 40.1-51.0 MEAN CORPUSCULAR VOLUME (BEAKER) (test mile=206) 99.3 fL 79.0-92.2 MEAN CORPUSCULAR HEMOGLOBIN (BEAKER) (test 31.2 pg 25.7-32.2 btrc=172) MEAN CORPUSCULAR HEMOGLOBIN CONC (BEAKER) (test 31.4 GM/DL 32.3-36.5 xkvq=307) RED CELL DISTRIBUTION WIDTH (BEAKER) (test 14.1 % 11.6-14.4 upov=679) PLATELET COUNT (BEAKER) (test mhid=802) 152 K/CU MM 150-450 MEAN PLATELET VOLUME (BEAKER) (test mewi=080) 12.5 fL 9.4-12.4 NUCLEATED RED BLOOD CELLS (BEAKER) (test 0 /100 WBC 0-0 lkin=398) NEUTROPHILS RELATIVE PERCENT (BEAKER) (test 80 % ceza=781) LYMPHOCYTES RELATIVE PERCENT (BEAKER) (test 8 % iqrm=031) MONOCYTES RELATIVE PERCENT (BEAKER) (test 10 % vmpy=667) EOSINOPHILS RELATIVE PERCENT (BEAKER) (test 0 % lylb=561) BASOPHILS RELATIVE PERCENT (BEAKER) (test 0 % jtof=582) NEUTROPHILS ABSOLUTE COUNT (BEAKER) (test 8.31 K/ L 1.78-5.38 kujg=867) LYMPHOCYTES ABSOLUTE COUNT (BEAKER) (test 0.87 K/ L 1.32-3.57 ckpl=949) MONOCYTES ABSOLUTE COUNT (BEAKER) (test 1.06 K/ L 0.30-0.82 dmsr=616) EOSINOPHILS ABSOLUTE COUNT (BEAKER) (test 0.03 K/ L 0.04-0.54 zxcw=632) BASOPHILS ABSOLUTE COUNT (BEAKER) (test 0.04 K/ L 0.01-0.08 lebt=409) IMMATURE GRANULOCYTES-RELATIVE PERCENT (BEAKER) 1 % 0-1 (test bndn=3631) POCT-GLUCOSE [id number] 22:52:00 Test Item Value Reference Range Comments POC-GLUCOSE METER (BEAKER) 221 mg/dL 70-110 TESTED AT [address] (test peby=9186) [place] [address] POCT-GLUCOSE [id number] 19:02:00 Test Item Value Reference Range Comments POC-GLUCOSE METER (BEAKER) 182 mg/dL 70-110 TESTED AT [address] (test ibva=5372) [place] [address] POCT-GLUCOSE [id number] 15:31:00 Test Item Value Reference Range Comments POC-GLUCOSE METER (BEAKER) 150 mg/dL 70-110 TESTED AT [address] (test pmsx=7456) [place] [address] POCT-GLUCOSE [id number] 12:07:00 Test Item Value Reference Range Comments POC-GLUCOSE METER (BEAKER) 284 mg/dL 70-110 TESTED AT [address] (test expd=4684) [place] [address] RAD, CHEST, 1 VIEW, NON [id number] 08:49:00Reason for exam:->respiratory insufficiencyShould this be performed [...] MDReport Verified Date/Time: 01/04/2019 08:49:14 Reading Location: [facility] Radiology Reading Room BASIC METABOLIC [id number] 06:21:00 Test Item Value Reference Range Comments SODIUM (BEAKER) (test 135 meq/L 136-145 jssc=753) POTASSIUM (BEAKER) (test 5.5 meq/L 3.5-5.1 fdyu=147) CHLORIDE (BEAKER) (test 99 meq/L 98-107 cncl=292) CO2 (BEAKER) (test 24 meq/L 22-29 dhug=938) BLOOD UREA NITROGEN 36 mg/dL 7-21 (BEAKER) (test xpxq=429) CREATININE (BEAKER) (test 7.37 mg/dL 0.57-1.25 xkjz=041) GLUCOSE RANDOM (BEAKER) 203 mg/dL 70-105 (test ycfq=163) CALCIUM (BEAKER) (test 9.7 mg/dL 8.4-10.2 qnyg=979) EGFR (BEAKER) (test 7 mL/min/1.73 sq m ESTIMATED GFR IS NOT jkhm=8149) ACCURATE CREATININE CLEARANCE IN PREDICTING GLOMERULAR FILTRATION RATE. ESTIMATED GFR IS NOT APPLICABLE FOR DIALYSIS PATIENTS. [id number] 06:09:00 Test Item Value Reference Range Comments POTASSIUM (BEAKER) (test aoul=864) 5.5 meq/L 3.5-5.1 [id number] 06:09:00 Test Item Value Reference Range Comments MAGNESIUM (BEAKER) (test pmuw=391) 2.2 mg/dL 1.6-2.6 [id number] 06:09:00 Test Item Value Reference Range Comments PHOSPHORUS (BEAKER) (test nqis=647) 5.8 mg/dL 2.3-4.7 CBC W/PLT COUNT & AUTO [id number] 05:54:00 Test Item Value Reference Range Comments WHITE BLOOD CELL COUNT (BEAKER) (test npop=775) 11.3 K/ L 3.5-10.5 RED BLOOD CELL COUNT (BEAKER) (test wykx=783) 2.88 M/ L 4.63-6.08 HEMOGLOBIN (BEAKER) (test lamp=470) 9.1 GM/DL 13.7-17.5 HEMATOCRIT (BEAKER) (test bzqe=596) 28.6 % 40.1-51.0 MEAN CORPUSCULAR VOLUME (BEAKER) (test fihj=227) 99.3 fL 79.0-92.2 MEAN CORPUSCULAR HEMOGLOBIN (BEAKER) (test 31.6 pg 25.7-32.2 qwrl=881) MEAN CORPUSCULAR HEMOGLOBIN CONC (BEAKER) (test 31.8 GM/DL 32.3-36.5 vnpg=095) RED CELL DISTRIBUTION WIDTH (BEAKER) (test 14.4 % 11.6-14.4 olwv=917) PLATELET COUNT (BEAKER) (test temi=871) 165 K/CU MM 150-450 MEAN PLATELET VOLUME (BEAKER) (test tcrc=362) 12.4 fL 9.4-12.4 NUCLEATED RED BLOOD CELLS (BEAKER) (test 0 /100 WBC 0-0 xhid=178) NEUTROPHILS RELATIVE PERCENT (BEAKER) (test 76 % tjmb=681) LYMPHOCYTES RELATIVE PERCENT (BEAKER) (test 11 % ttaq=171) MONOCYTES RELATIVE PERCENT (BEAKER) (test 11 % nxkt=652) EOSINOPHILS RELATIVE PERCENT (BEAKER) (test 0 % xker=964) BASOPHILS RELATIVE PERCENT (BEAKER) (test 0 % vkyt=810) NEUTROPHILS ABSOLUTE COUNT (BEAKER) (test 8.59 K/ L 1.78-5.38 jjcm=100) LYMPHOCYTES ABSOLUTE COUNT (BEAKER) (test 1.28 K/ L 1.32-3.57 ydjv=608) MONOCYTES ABSOLUTE COUNT (BEAKER) (test 1.26 K/ L 0.30-0.82 bira=982) EOSINOPHILS ABSOLUTE COUNT (BEAKER) (test 0.04 K/ L 0.04-0.54 rrbm=583) BASOPHILS ABSOLUTE COUNT (BEAKER) (test 0.05 K/ L 0.01-0.08 wabw=018) IMMATURE GRANULOCYTES-RELATIVE PERCENT (BEAKER) 1 % 0-1 (test qeqi=3607) BLOOD GAS, [id number] 05:34:00 Test Item Value Reference Range Comments PH ARTERIAL (BEAKER) (test rfwq=756) 7.41 7.35-7.45 PCO2 ARTERIAL (BEAKER) (test zsov=659) 42 mmHg 35-45 PO2 ARTERIAL (BEAKER) (test oupj=175) 105 mmHg 80-90 O2 SATURATION ARTERIAL (BEAKER) (test cocy=846) 97.7 % 96.0-97.0 HCO3 ARTERIAL (BEAKER) (test nhvo=995) 26 mmol/L 21-29 BASE EXCESS ARTERIAL (BEAKER) (test ufix=482) 0.9 mmol/L -2.0-3.0 PATIENT TEMPERATURE (BEAKER) (test sukm=5003) 37.5 C FIO2 (BEAKER) (test jkgs=3225) 21.0 % HEPATITIS B SURFACE [id number] 03:29:00 Test Item Value Reference Range Comments HEPATITIS B SURFACE ANTIGEN (2) (BEAKER) (test Nonreactive Nonreactive yxgp=4923) TROPONIN [id number] 03:04:00 Test Item Value Reference Range Comments TROPONIN I (BEAKER) (test wzeo=206) 2.70 ng/mL 0.00-0.03 Troponin I (TnI) levels [...] Range Comments CREATINE KINASE TOTAL (BEAKER) (test vcnj=827) 340 U/L 29-200 [id number] 02:42:00 Test Item Value Reference Range Comments PROTIME (BEAKER) (test npzy=523) 22.0 seconds 11.7-14.7 INR (BEAKER) (test anhj=970) 2.0 <=5.9 PARTIAL THROMBOPLASTIN TIME (BEAKER) (test 114.6 seconds 22.5-36.0 gjvj=819) RECOMMENDED COUMADIN/WARFARIN INR THERAPY RANGESSTANDARD DOSE: 2.0 - 3.0 Includes: PROPHYLAXIS forvenous thrombosis, systemic embolization; TREATMENT for venous thrombosis and/or pulmonary embolus.HIGH RISK: Target INR is 2.5-3.5 for patients with mechanical heart valves.BLOOD GAS, [id number] 02:15:00 Test Item Value Reference Range Comments PH ARTERIAL (BEAKER) (test ydkc=275) 7.35 7.35-7.45 PCO2 ARTERIAL (BEAKER) (test weyk=550) 47 mmHg 35-45 PO2 ARTERIAL (BEAKER) (test xuya=712) 78 mmHg 80-90 O2 SATURATION ARTERIAL (BEAKER) (test vjwo=799) 94.6 % 96.0-97.0 HCO3 ARTERIAL (BEAKER) (test dbkk=950) 25 mmol/L 21-29 BASE EXCESS ARTERIAL (BEAKER) (test ntvh=504) -0.5 mmol/L -2.0-3.0 PATIENT TEMPERATURE (BEAKER) (test tsxn=5315) 37.5 C FIO2 (BEAKER) (test pakx=7847) 21.0 % POCT-GLUCOSE [id number] 00:41:00 Test Item Value Reference Range Comments POC-GLUCOSE METER (BEAKER) 237 mg/dL 70-110 TESTED AT [facility] [address] [facility] (test krcz=1332) [facility] [address] TROPONIN [id number] 00:28:00 Test Item Value Reference Range Comments TROPONIN I (BEAKER) (test ikhx=193) 1.65 ng/mL 0.00-0.03 Troponin I (TnI) levels [...] acute neurological disease, and persistent tachyarrhythmia.COMPREHENSIVE METABOLIC [id number] 00:24:00 Test Item Value Reference Range Comments TOTAL PROTEIN (BEAKER) 6.4 gm/dL 6.0-8.3 (test ujbj=868) ALBUMIN (BEAKER) (test 3.6 g/dL 3.5-5.0 xbqi=7136) ALKALINE PHOSPHATASE 75 U/L 40-150 (BEAKER) (test twqu=693) BILIRUBIN TOTAL (BEAKER) 0.5 mg/dL 0.2-1.2 (test grbq=169) SODIUM (BEAKER) (test 133 meq/L 136-145 ymmn=979) POTASSIUM (BEAKER) (test 5.7 meq/L 3.5-5.1 hyrz=534) CHLORIDE (BEAKER) (test 99 meq/L 98-107 wvhk=433) CO2 (BEAKER) (test 25 meq/L 22-29 apfm=864) BLOOD UREA NITROGEN 33 mg/dL 7-21 (BEAKER) (test shfc=347) CREATININE (BEAKER) (test 6.92 mg/dL 0.57-1.25 aina=433) GLUCOSE RANDOM (BEAKER) 234 mg/dL 70-105 (test afnc=992) CALCIUM (BEAKER) (test 9.1 mg/dL 8.4-10.2 gqjr=996) AST (SGOT) (BEAKER) (test 15 U/L 5-34 vrlq=912) ALT (SGPT) (BEAKER) (test 17 U/L 6-55 rnlg=993) EGFR (BEAKER) (test 8 mL/min/1.73 sq m ESTIMATED GFR IS NOT ksxe=8607) ACCURATE CREATININE CLEARANCE IN PREDICTING GLOMERULAR FILTRATION RATE. ESTIMATED GFR IS NOT APPLICABLE FOR DIALYSIS PATIENTS. [id number] 00:21:00 Test Item Value Reference Range Comments MAGNESIUM (BEAKER) (test jlcw=647) 2.0 mg/dL 1.6-2.6 LACTIC ACID, [id number] 00:16:00 Test Item Value Reference Range Comments LACTATE BLOOD ARTERIAL (2) (BEAKER) (test 1.3 mmol/L 0.5-2.2 ezxm=2023) BLOOD GAS, [id number] 23:54:00 Test Item Value Reference Range Comments PH ARTERIAL (BEAKER) (test mjmj=130) 7.32 7.35-7.45 PCO2 ARTERIAL (BEAKER) (test fdkb=611) 51 mmHg 35-45 PO2 ARTERIAL (BEAKER) (test qdkv=943) 133 mmHg 80-90 O2 SATURATION ARTERIAL (BEAKER) (test bvxt=398) 98.4 % 96.0-97.0 HCO3 ARTERIAL (BEAKER) (test bpjk=403) 26 mmol/L 21-29 BASE EXCESS ARTERIAL (BEAKER) (test tdat=267) -0.3 mmol/L -2.0-3.0 PATIENT TEMPERATURE (BEAKER) (test fyhi=4472) 37.0 C FIO2 (BEAKER) (test qmfc=4347) 40.0 % RAD, CHEST, 1 VIEW, NON [id number] 22:24:00Reason for exam:-> hypotensionShould this be performed at the bedside?->YesFINAL REPORT Chest dated 01/03/2019 Clinical Information: hypotension Comment: Heart is enlarged. Pulmonary vasculature is indistinct. Interstitial disease is seen bilaterally suggestive of vascular congestion. Endotracheal tube is present. A curvilinear radiopaque density is seen in the mid upper chest. Please correlate clinically. Signed: Yuridia Wallace MDReport Verified Date/Time: 01/03/2019 22:24:07 Reading Location: [address] Consult Reading Room BASI METABOLIC [id number] 22:08:00 Test Item Value Reference Range Comments SODIUM (BEAKER) (test 136 meq/L 136-145 dcez=615) POTASSIUM (BEAKER) (test 5.2 meq/L 3.5-5.1 Specimen slightly mayy=621) hemolyzed CHLORIDE (BEAKER) (test 104 meq/L 98-107 crla=190) CO2 (BEAKER) (test 22 meq/L 22-29 geyj=518) BLOOD UREA NITROGEN 27 mg/dL 7-21 (BEAKER) (test vxqu=991) CREATININE (BEAKER) (test 5.82 mg/dL 0.57-1.25 Specimen slightly jjvr=576) hemolyzed GLUCOSE RANDOM (BEAKER) 220 mg/dL 70-105 (test gkpf=509) CALCIUM (BEAKER) (test 8.0 mg/dL 8.4-10.2 asld=980) EGFR (BEAKER) (test 10 mL/min/1.73 sq m ESTIMATED GFR IS NOT qiwy=6148) ACCURATE CREATININE CLEARANCE IN PREDICTING GLOMERULAR FILTRATION RATE. ESTIMATED GFR IS NOT APPLICABLE FOR DIALYSIS PATIENTS. [id number] 22:07:00 Test Item Value Reference Range Comments MAGNESIUM (BEAKER) (test 2.0 mg/dL 1.6-2.6 Specimen slightly hemolyzed bfxa=559) [id number] 22:07:00 Test Item Value Reference Range Comments PHOSPHORUS (BEAKER) (test 5.1 mg/dL 2.3-4.7 Specimen slightly hemolyzed qdnq=605) POTASSIUM-STAT [id number] 21:42:00 Test Item Value Reference Range Comments POTASSIUM (BEAKER) (test rjmo=145) 4.7 meq/L 3.6-5.5 GLUCOSE-STAT [id number] 21:42:00 Test Item Value Reference Range Comments GLUCOSE RANDOM (BEAKER) (test sbab=968) 205 mg/dL 70-110 SODIUM NA-STAT [id number] 21:42:00 Test Item Value Reference Range Comments SODIUM (BEAKER) (test czks=228) 134 meq/L 135-148 HGB/HCT (H&H) - STAT [id number] 21:42:00 Test Item Value Reference Range Comments HEMOGLOBIN (BEAKER) (test xxvu=223) 8.3 g/dL 13.0-16.8 HEMATOCRIT (BEAKER) (test tgmv=127) 24.0 % 40.0-50.0 [id number] 21:34:00 Test Item Value Reference Range Comments PROTIME (BEAKER) (test fuoa=951) 54.5 seconds 11.7-14.7 INR (BEAKER) (test hcfd=961) 6.6 <=5.9 PARTIAL THROMBOPLASTIN TIME (BEAKER) (test 116.0 seconds 22.5-36.0 zmvb=087) RECOMMENDED COUMADIN/WARFARIN INR THERAPY RANGESSTANDARD DOSE: 2.0 - 3.0 Includes: PROPHYLAXIS forvenous thrombosis, systemic embolization; TREATMENT for venous thrombosis and/or pulmonary embolus.HIGH RISK: Target INR is 2.5-3.5 for patients with mechanical heart valves.LACTIC ACID, [id number] 21:27:00 Test Item Value Reference Range Comments LACTATE BLOOD VENOUS (2) 1.7 mmol/L 0.5-2.2 Specimen moderately hemolyzed (BEAKER) (test reja=5793) CBC W/PLT COUNT & AUTO [id number] 21:16:00 Test Item Value Reference Range Comments WHITE BLOOD CELL COUNT (BEAKER) (test vlll=328) 13.2 K/ L 3.5-10.5 RED BLOOD CELL COUNT (BEAKER) (test bzio=028) 2.96 M/ L 4.63-6.08 HEMOGLOBIN (BEAKER) (test fqbz=131) 9.5 GM/DL 13.7-17.5 HEMATOCRIT (BEAKER) (test jhkt=983) 29.8 % 40.1-51.0 MEAN CORPUSCULAR VOLUME (BEAKER) (test vjwy=410) 100.7 fL 79.0-92.2 MEAN CORPUSCULAR HEMOGLOBIN (BEAKER) (test 32.1 pg 25.7-32.2 vfks=657) MEAN CORPUSCULAR HEMOGLOBIN CONC (BEAKER) (test 31.9 GM/DL 32.3-36.5 nynv=891) RED CELL DISTRIBUTION WIDTH (BEAKER) (test 14.6 % 11.6-14.4 qqts=062) PLATELET COUNT (BEAKER) (test bjdt=833) 188 K/CU MM 150-450 MEAN PLATELET VOLUME (BEAKER) (test evgj=128) 12.2 fL 9.4-12.4 NUCLEATED RED BLOOD CELLS (BEAKER) (test 0 /100 WBC 0-0 ujjg=567) NEUTROPHILS RELATIVE PERCENT (BEAKER) (test 74 % eozy=079) LYMPHOCYTES RELATIVE PERCENT (BEAKER) (test 14 % petd=509) MONOCYTES RELATIVE PERCENT (BEAKER) (test 11 % pvqu=049) EOSINOPHILS RELATIVE PERCENT (BEAKER) (test 0 % sonk=368) BASOPHILS RELATIVE PERCENT (BEAKER) (test 0 % urxg=382) NEUTROPHILS ABSOLUTE COUNT (BEAKER) (test 9.78 K/ L 1.78-5.38 rwsm=602) LYMPHOCYTES ABSOLUTE COUNT (BEAKER) (test 1.81 K/ L 1.32-3.57 iuuv=640) MONOCYTES ABSOLUTE COUNT (BEAKER) (test 1.46 K/ L 0.30-0.82 xect=885) EOSINOPHILS ABSOLUTE COUNT (BEAKER) (test 0.01 K/ L 0.04-0.54 vjpu=369) BASOPHILS ABSOLUTE COUNT (BEAKER) (test 0.04 K/ L 0.01-0.08 kvah=509) IMMATURE GRANULOCYTES-RELATIVE PERCENT (BEAKER) 1 % 0-1 (test ibka=1459) BLOOD GAS, [id number] 21:03:00 Test Item Value Reference Range Comments PH ARTERIAL (BEAKER) (test iodk=467) 7.34 7.35-7.45 PCO2 ARTERIAL (BEAKER) (test ujmc=743) 49 mmHg 35-45 PO2 ARTERIAL (BEAKER) (test acgq=196) 102 mmHg 80-90 O2 SATURATION ARTERIAL (BEAKER) (test atdr=881) 97.3 % 96.0-97.0 HCO3 ARTERIAL (BEAKER) (test vfhb=950) 25 mmol/L 21-29 BASE EXCESS ARTERIAL (BEAKER) (test cobi=296) -0.8 mmol/L -2.0-3.0 PATIENT TEMPERATURE (BEAKER) (test ifqk=1084) 37.0 C FIO2 (BEAKER) (test lxic=5054) 40.0 % [id number] 18:33:00 Test Item Value Reference Range Comments ACTIVATED CLOTTING TIME 384 sec TESTED AT [facility] [address] [facility] (BEAKER) (test ursg=324) [facility] [address] PROTHROMBIN [id number] 14:04:00 Test Item Value Reference Range Comments PROTIME (BEAKER) (test txak=907) 14.3 seconds 11.7-14.7 INR (BEAKER) (test ibaq=369) 1.2 <=5.9 RECOMMENDED COUMADIN/WARFARIN INR THERAPY RANGESSTANDARD DOSE: 2.0 - 3.0 Includes: PROPHYLAXIS forvenous thrombosis, systemic embolization; TREATMENT for venous thrombosis and/or pulmonary embolus.HIGH RISK: Target INR is 2.5-3.5 for patients with mechanical heart valves.CBC W/PLT COUNT & AUTO [id number] 14:00:00 Test Item Value Reference Range Comments WHITE BLOOD CELL COUNT (BEAKER) (test jvei=350) 15.0 K/ L 3.5-10.5 RED BLOOD CELL COUNT (BEAKER) (test tonz=818) 3.01 M/ L 4.63-6.08 HEMOGLOBIN (BEAKER) (test xrko=038) 9.7 GM/DL 13.7-17.5 HEMATOCRIT (BEAKER) (test gjja=394) 30.3 % 40.1-51.0 MEAN CORPUSCULAR VOLUME (BEAKER) (test jjqj=274) 100.7 fL 79.0-92.2 MEAN CORPUSCULAR HEMOGLOBIN (BEAKER) (test 32.2 pg 25.7-32.2 cnpy=051) MEAN CORPUSCULAR HEMOGLOBIN CONC (BEAKER) (test 32.0 GM/DL 32.3-36.5 bnnx=285) RED CELL DISTRIBUTION WIDTH (BEAKER) (test 14.6 % 11.6-14.4 eoxy=349) PLATELET COUNT (BEAKER) (test ebbn=774) 196 K/CU MM 150-450 MEAN PLATELET VOLUME (BEAKER) (test zcsv=942) 12.4 fL 9.4-12.4 NUCLEATED RED BLOOD CELLS (BEAKER) (test 0 /100 WBC 0-0 bclz=785) NEUTROPHILS RELATIVE PERCENT (BEAKER) (test 82 % yahu=499) LYMPHOCYTES RELATIVE PERCENT (BEAKER) (test 7 % isbz=035) MONOCYTES RELATIVE PERCENT (BEAKER) (test 10 % cfct=122) EOSINOPHILS RELATIVE PERCENT (BEAKER) (test 0 % crtl=695) BASOPHILS RELATIVE PERCENT (BEAKER) (test 0 % wekj=657) NEUTROPHILS ABSOLUTE COUNT (BEAKER) (test 12.24 K/ L 1.78-5.38 ctol=581) LYMPHOCYTES ABSOLUTE COUNT (BEAKER) (test 1.10 K/ L 1.32-3.57 ijig=167) MONOCYTES ABSOLUTE COUNT (BEAKER) (test 1.43 K/ L 0.30-0.82 qvce=787) EOSINOPHILS ABSOLUTE COUNT (BEAKER) (test 0.01 K/ L 0.04-0.54 plji=324) BASOPHILS ABSOLUTE COUNT (BEAKER) (test 0.06 K/ L 0.01-0.08 apxz=237) IMMATURE GRANULOCYTES-RELATIVE PERCENT (BEAKER) 1 % 0-1 (test xwxs=7383) TROPONIN [id number] 12:20:00 Test Item Value Reference Range Comments TROPONIN I (BEAKER) (test zxjq=078) < ng/mL 0.00-0.03 Troponin I (TnI) levels [...] acute neurological disease, and persistent tachyarrhythmia.COMPREHENSIVE METABOLIC [id number] 12:15:00 Test Item Value Reference Range Comments TOTAL PROTEIN (BEAKER) 7.0 gm/dL 6.0-8.3 (test vwnv=616) ALBUMIN (BEAKER) (test 4.1 g/dL 3.5-5.0 tzog=2491) ALKALINE PHOSPHATASE 85 U/L 40-150 (BEAKER) (test byoc=174) BILIRUBIN TOTAL (BEAKER) 0.5 mg/dL 0.2-1.2 (test qzen=205) SODIUM (BEAKER) (test 138 meq/L 136-145 rbki=281) POTASSIUM (BEAKER) (test 5.4 meq/L 3.5-5.1 vhvh=134) CHLORIDE (BEAKER) (test 101 meq/L 98-107 ejwx=113) CO2 (BEAKER) (test 24 meq/L 22-29 fxzk=665) BLOOD UREA NITROGEN 24 mg/dL 7-21 (BEAKER) (test ktof=524) CREATININE (BEAKER) (test 5.83 mg/dL 0.57-1.25 pohy=846) GLUCOSE RANDOM (BEAKER) 213 mg/dL 70-105 (test nate=410) CALCIUM (BEAKER) (test 9.4 mg/dL 8.4-10.2 lvll=251) AST (SGOT) (BEAKER) (test 16 U/L 5-34 qjpx=239) ALT (SGPT) (BEAKER) (test 23 U/L 6-55 yxwd=059) EGFR (BEAKER) (test 10 mL/min/1.73 sq m ESTIMATED GFR IS NOT llne=5357) ACCURATE CREATININE CLEARANCE IN PREDICTING GLOMERULAR FILTRATION RATE. ESTIMATED GFR IS NOT APPLICABLE FOR DIALYSIS PATIENTS. LIPID [id number] 12:13:00 Test Item Value Reference Range Comments TRIGLYCERIDES (BEAKER) (test xwes=874) 158 mg/dL CHOLESTEROL (BEAKER) (test lqlj=550) 113 mg/dL HDL CHOLESTEROL (BEAKER) (test anhr=588) 34 mg/dL LDL CHOLESTEROL CALCULATED (BEAKER) (test 47 mg/dL ivui=078) Triglyceride Reference Range: Low Risk <150 Borderline 150- 199 High Risk 200-499 Very High Risk >=500Cholesterol Reference Range: Low Risk <200 Borderline 200-239 High Risk > 240HDL Cholesterol Reference Range: Low Risk >=60 High Risk <40LDL Cholesterol Reference Range: Optimal <100 Near Optimal 100-129 Borderline 130-159 High 160-189 Very High >=190POCT-GLUCOSE [id number] 11:26:00 Test Item Value Reference Range Comments POC-GLUCOSE METER (BEAKER) 291 mg/dL 70-110 TESTED AT [facility] [address] (test ywsq=0042) [facility] [address]
[2019-07-16] MEDS ORDERED: NA CHLORIDE 0.9% 0 ML ONE (22:03)
[2019-07-16 22:25] LABS: Absolute Lymphocytes (CBC) 1.5 K/uL (0.7-4.9); Basophils % 1.5 % (0-1.3); Hematocrit 34.1 % (39.6-49.0); Lymphocytes % 25.8 % (15.3-44.8); MPV 9.6 fL (7.6-11.3); RBC Red Blood Cell Count 3.74 M/uL (4.33-5.43)
[2019-07-16 22:28] LABS: Urine Blood 3+ (NEG); Urine Glucose 2+ (NEG); Urine Protein 2+ (NEG); Urine Specific Gravity 1.015 (1.005-1.030); Urine pH 7.5 (5.0-7.0)
[2019-07-16 22:34] LABS: Protime INR 1.05
[2019-07-16 22:57] LABS: ALT/SGPT 18 U/L (12-78); AST/SGOT 15 U/L (15-37); Albumin 3.5 g/dL (3.4-5.0); Alkaline Phosphatase 98 U/L (45-117); BUN Blood Urea Nitrogen 42 mg/dL (7-18); Bicarbonate 26 mmol/L (21-32); Bilirubin Direct < 0.1 mg/dL (0-0.2); Bilirubin Total 0.3 mg/dL (0.2-1.0); Glucose Level 135 mg/dL (74-106); Lipase 163 U/L (73-393); Magnesium 2.2 mg/dL (1.8-2.4); NT PRO-BNP 1931 pg/mL (<125); Potassium 5.5 mmol/L (3.5-5.1); Protein, Total 6.9 g/dL (6.4-8.2); Sodium Level 139 mmol/L (136-145); Troponin (Emerg Dept Use Only) < 0.02 ng/mL (0.0-0.045)
--- NOTE | 2019-07-17 00:58 | ER ---
Nurse's Notes [facility] Name: Shelli Mireles Age: 68 yrs Sex: Male : 1950 Arrival Date: 07/16/2019 Time: 20:42 Bed 16 Private MD: Diagnosis: Abdominal tenderness;End stage renal disease;Hyperkalemia;Obesity, unspecified Presentation: 07/16 20:42 Presenting complaint: Patient states: I am having groin pain that started at 1 pm. jb4 Transition of care: patient was not received from another setting of care. Onset of symptoms was July 16, 2019. Risk Assessment: Do you want to hurt yourself or someone else? Patient reports no desire to harm self or others. Initial Sepsis Screen: Does the patient meet any 2 criteria? No. Patient's initial sepsis screen is negative. Does the patient have a suspected source of infection? No. Patient's initial sepsis screen is negative. Care prior to arrival: None. 20:42 Method Of Arrival: Ambulatory jb4 20:42 Acuity: MICHELLE 3 jb4 Historical: - Allergies: 20:42 Sulfa (Sulfonamide Antibiotics); jb4 20:42 Bactrim; jb4 20:42 TETRACYCLINES; jb4 20:42 Demerol; jb4 20:42 Ibuprofen; jb4 - Home Meds: 20:42 Lantus 100 unit/mL Sub-Q soln 40 unit daily [Active]; Novolog 100 unit/mL Sub-Q soln 40 jb4 unit twice a day [Active]; rosuvastatin 10 mg Oral tab 1 tab nightly [Active]; [place]-3 1 gm Oral 2 tab twice a day [Active]; Cami 180 mg Oral tab 1 tab nightly [Active]; gabapentin 300 mg Oral cap 1 cap 3 times per day [Active]; gabapentin 300 mg oral cap 1 cap 3 times per day [Active]; Vitamin D 5000IU Oral 2 tab daily [Active]; sevelamer carbonate 800 mg Oral tab 3 tabs 3 times per day [Active]; Colace 100 mg Oral cap 2 caps 2 times per day [Active]; hydrocodone-acetaminophen 7.5-325 mg Oral tab 1 tab 3x/day [Active]; pantoprazole 40 mg Oral TbEC 1 tab once daily [Active]; clopidogrel 75 mg oral tab 1 tab once daily [Active]; Eliquis 2.5 mg Oral tab 1 tab 2 times per day [Active]; Rebecca-Senthil oral oral 1 tab daily [Active]; - PMHx: 20:42 Cardiac Stents x3; High Cholesterol; Hypertension; PE; Dialysis (started 03/20/17); jb4 Diabetes - IDDM; diabetic retinopathy; RENAL FAILURE; - PSHx: 20:42 abcess; pacemaker; Heart stents; jb4 - Immunization history:: Adult Immunizations up to date. - Social history:: Smoking status: Patient/guardian denies using tobacco, Patient/guardian denies using alcohol. - Ebola Screening: : No symptoms or risks identified at this time. - Family history:: not pertinent. Screenin:42 Abuse screen: Denies threats or abuse. Nutritional screening: No deficits noted. jb4 Tuberculosis screening: No symptoms or risk factors identified. Fall Risk None identified. Assessment: 20:42 General: Appears in no apparent distress. uncomfortable, Behavior is calm, cooperative, jb4 appropriate for age. Pain: Complains of pain in groin Pain radiates to suprapubic area Pain currently is 10 out of 10 on a pain scale. Neuro: Level of Consciousness is awake, alert, obeys commands, Oriented to person, place, time, situation. Cardiovascular: Patient's skin is warm and dry. Respiratory: Airway is patent Respiratory effort is even, unlabored, Respiratory pattern is regular, symmetrical. GI: Abdomen is non-distended, obese. : Reports pain scrotum. EENT: No deficits noted. No signs and/or symptoms were reported regarding the EENT system. Derm: Skin is intact, Skin is pink, warm \\T\\ dry. Musculoskeletal: Circulation, motion, and sensation intact. Range of motion: intact in all extremities. 21:30 Reassessment: Patient appears in no apparent distress at this time. Patient and/or jb4 family updated on plan of care and expected duration. Pain level reassessed. Patient is alert, oriented x 3, equal unlabored respirations, skin warm/dry/pink. PT refused IV. Pt okayed blood draw with a butterfly needle. Pt states " I do not need an IV. I do not want one." Informed the patient that the provider wanted him on maintenance fluids. Pt responded " I do not need fluids, I am on dialysis and am already in fluid over load. I do not want an IV or fluid.". 22:00 Reassessment: Patient appears in no apparent distress at this time. Patient and/or jb4 family updated on plan of care and expected duration. Pain level reassessed. Patient is alert, oriented x 3, equal unlabored respirations, skin warm/dry/pink. 23:00 Reassessment: Patient appears in no apparent distress at this time. Patient and/or jb4 family updated on plan of care and expected duration. Pain level reassessed. Patient is alert, oriented x 3, equal unlabored respirations, skin warm/dry/pink. 07/17 00:00 Reassessment: Patient appears in no apparent distress at this time. Patient and/or jb4 family updated on plan of care and expected duration. Pain level reassessed. Patient is alert, oriented x 3, equal unlabored respirations, skin warm/dry/pink. 01:00 Reassessment: Patient appears in no apparent distress at this time. Patient and/or jb4 family updated on plan of care and expected duration. Pain level reassessed. Patient is alert, oriented x 3, equal unlabored respirations, skin warm/dry/pink. 01:40 Reassessment: PT states " I do not want an IV. If there is an oral form of the jb4 medication that is all I want. I do not need an IV. If you have an ultra sound IV then I will let you. If not then there is no way.." [facility]. PT refused all IV attempts. 02:28 Reassessment: Patient appears in no apparent distress at this time. Patient and/or jb4 family updated on plan of care and expected duration. Pain level reassessed. Patient is alert, oriented x 3, equal unlabored respirations, skin warm/dry/pink. PT continuing to refuse IV insertion after conversation with admitting physician. 02:58 Reassessment: Patient appears in no apparent distress at this time. Patient and/or jb4 family updated on plan of care and expected duration. Pain level reassessed. Patient is alert, oriented x 3, equal unlabored respirations, skin warm/dry/pink. PT transferred upstairs via wheelchair. No IV. Pt asked prior to transfer to new room per receiving nurse's request if he would let an IV access be initiated. PT refused IV access. Vital Signs: 07/16 20:42 BP 162 / 63; Pulse 80; Resp 18; Temp 98.5(O); Pulse Ox 97% on R/A; Weight 127.01 kg jb4 (R); Height 5 ft. 11 in. (180.34 cm) (R); Pain 10/10; 22:30 BP 124 / 43; Pulse 67; Resp 16; Pulse Ox 94% on R/A; jb4 23:15 BP 133 / 56; Pulse 68; Resp 16; Pulse Ox 94% on R/A; jb4 07/17 00:15 BP 119 / 39; Pulse 70; Resp 16; Pulse Ox 96% on R/A; jb4 01:30 BP 147 / 46; Pulse 72; Resp 16; Pulse Ox 97% on R/A; jb4 07/16 20:42 Body Mass Index 39.05 (127.01 kg, 180.34 cm) jb4 ED Course: 07/16 20:42 Patient arrived in ED. cf2 20:42 Arm band placed on left wrist. jb4 20:42 Patient has correct armband on for positive identification. Bed in low position. Call jb4 light in reach. Side rails up X 1. Pulse ox on. NIBP on. 21:29 Luiz Lui, FORREST is Primary Nurse. jb4 21:29 Triage completed. jb4 21:30 Alf Munguia MD is Attending Physician. whitney 22:19 Initial lab(s) drawn, by me, sent to lab. mt 22:24 XRAY Chest (1 view) In Process Unspecified. EDMS 22:40 CT completed. Patient tolerated procedure well. Patient moved to CT. Patient moved back la from CT. 22:59 Notified ED physician of a critical lab result(s). creat of 7.27. fc 23:58 Abdomen In Process Unspecified. EDMS 07/17 00:55 Harrison Najera is Hospitalizing Provider. whitney 02:30 No provider procedures requiring assistance completed. Patient did not have IV access jb4 during this emergency room visit. Administered Medications: 07/16 22:33 Not Given (Patient Refused): NS 0.9% 1000 ml IV at 75 ml/hr continuous jb4 07/17 01:49 Not Given (Patient Refused): Rocephin 1 grams IV at per protocol once; Given slow IV jb4 push per pharmacy instructions 01:49 Not Given (Patient Refused): Zofran 4 mg IVP once; over 2 minutes jb4 01:51 Not Given (Patient Refused): morphine 2 mg IVP once; (PAIN>8) RASS on ADMN: Combtv4, jb4 Very Agttd3, Agttd2, Rstlss1, AlertClm0, Drwsy-1, LtSdtn-2, ModSdtn-3, DpSdtn-4, UnArsble-5 x2 02:00 Drug: Hydrocodone-Acetaminophen (7.5 mg-325 mg) 1 tabs {Note: Rass score 0.} Route: PO; jb4 02:01 Drug: Kayexalate 45 grams Route: PO; jb4 Outcome: 00:56 Decision to Hospitalize by Provider. whitney 02:57 Admitted to Tele accompanied by tech, via wheelchair, room 430, with chart, Report jb4 called to FORREST [place] 02:57 Condition: stable 02:57 Discharge instructions given to patient, family, Instructed on the need for admit, Demonstrated understanding of instructions. 03:00 Patient left the ED. [facility] Signatures: Dispatcher [employer] EDMS Alf Munguia MD MD cha Chretien, Felicia, RN RN fc Bryson, James, RN RN [facility] Mckinley, Jim Sewell, [place], Ankur 2 Corrections: (The following items were deleted from the chart) 07/16 21:31 21:29 Presenting complaint: Patient states: I am having groin pain that started at 1 jb4 pm. [facility] :31 21:29 Transition of care: patient was not received from another setting of care. [place] [id number] 21:31 21:29 Onset of symptoms was July 16, 2019 [place] [id number] :31 21:29 Risk Assessment: Do you want to hurt yourself or someone else? Patient reports no jb4 desire to harm self or others. [facility] 21:31 21:29 Initial Sepsis Screen: Does the patient meet any 2 criteria? No. Patient's jb4 initial sepsis screen is negative. Does the patient have a suspected source of infection? No. Patient's initial sepsis screen is negative. [facility] 21:29 Care prior to arrival: None. jb4 jb4 21:29 Method Of Arrival: Ambulatory jb4 jb4 21:29 Acuity: MICHELLE 3 jb4 4 07/17 02:34 02:28 Reassessment: Patient appears in no apparent distress at this time. Patient jb4 and/or family updated on plan of care and expected duration. Pain level reassessed. Patient is alert, oriented x 3, equal unlabored respirations, skin warm/dry/pink. PT continuing to refuse IV insertion. jb4
--- NOTE | 2019-07-17 00:59 | EDPHYS ---
Physician Documentation [facility] Name: Shelli Mireles Age: 68 yrs Sex: Male : 1950 Arrival Date: 07/16/2019 Time: 20:42 Bed 16 Private MD: ED Physician Alf Munguia HPI: 07/17 00:53 This 68 yrs old Male presents to ER via Ambulatory with complaints of Groin whitney Pain, Abdominal Pain. 00:53 The patient presents with abdominal pain in the lower abdomen, abdominal distention in whitney the upper abdomen, in the lower abdomen. Onset: The symptoms/episode began/occurred 1 day(s) ago. The symptoms do not radiate. Associated signs and symptoms: none. The symptoms are described as burning, crampy. Modifying factors: The symptoms are alleviated by nothing, the symptoms are aggravated by nothing. Severity of pain: At its worst the pain was mild moderate in the emergency department the pain is unchanged. The patient has not experienced similar symptoms in the past. Historical: - Allergies: 07/16 20:42 Sulfa (Sulfonamide Antibiotics); jb4 20:42 Bactrim; jb4 20:42 TETRACYCLINES; jb4 20:42 Demerol; jb4 20:42 Ibuprofen; jb4 - Home Meds: 20:42 Lantus 100 unit/mL Sub-Q soln 40 unit daily [Active]; Novolog 100 unit/mL Sub-Q soln 40 jb4 unit twice a day [Active]; rosuvastatin 10 mg Oral tab 1 tab nightly [Active]; [place]-3 1 gm Oral 2 tab twice a day [Active]; Cami 180 mg Oral tab 1 tab nightly [Active]; gabapentin 300 mg Oral cap 1 cap 3 times per day [Active]; gabapentin 300 mg oral cap 1 cap 3 times per day [Active]; Vitamin D 5000IU Oral 2 tab daily [Active]; sevelamer carbonate 800 mg Oral tab 3 tabs 3 times per day [Active]; Colace 100 mg Oral cap 2 caps 2 times per day [Active]; hydrocodone-acetaminophen 7.5-325 mg Oral tab 1 tab 3x/day [Active]; pantoprazole 40 mg Oral TbEC 1 tab once daily [Active]; clopidogrel 75 mg oral tab 1 tab once daily [Active]; Eliquis 2.5 mg Oral tab 1 tab 2 times per day [Active]; Rebecca-Senthil oral oral 1 tab daily [Active]; - PMHx: 20:42 Cardiac Stents x3; High Cholesterol; Hypertension; PE; Dialysis (started 03/20/17); jb4 Diabetes - IDDM; diabetic retinopathy; RENAL FAILURE; - PSHx: 20:42 abcess; pacemaker; Heart stents; jb4 - Immunization history:: Adult Immunizations up to date. - Social history:: Smoking status: Patient/guardian denies using tobacco, Patient/guardian denies using alcohol. - Ebola Screening: : No symptoms or risks identified at this time. - Family history:: not pertinent. ROS: 07/17 00:53 Constitutional: Negative for fever, chills, and weight loss, Eyes: Negative for injury, whitney pain, redness, and discharge, ENT: Negative for injury, pain, and discharge, Neck: Negative for injury, pain, and swelling, Cardiovascular: Negative for chest pain, palpitations, and edema, Respiratory: Negative for shortness of breath, cough, wheezing, and pleuritic chest pain, Back: Negative for injury and pain, : Negative for injury, bleeding, discharge, and swelling, MS/Extremity: Negative for injury and deformity, Skin: Negative for injury, rash, and discoloration, Neuro: Negative for headache, weakness, numbness, tingling, and seizure, Psych: Negative for depression, anxiety, suicide ideation, homicidal ideation, and hallucinations, Allergy/Immunology: Negative for hives, rash, and allergies, Endocrine: Negative for neck swelling, polydipsia, polyuria, polyphagia, and marked weight changes, Hematologic/Lymphatic: Negative for swollen nodes, abnormal bleeding, and unusual bruising. Abdomen/GI: Positive for abdominal pain, of the right lower quadrant and left lower quadrant. Exam: 00:53 Constitutional: This is a well developed, well nourished patient who is awake, alert, whitney and in no acute distress. Head/Face: Normocephalic, atraumatic. Eyes: Pupils equal round and reactive to light, extra-ocular motions intact. Lids and lashes normal. Conjunctiva and sclera are non-icteric and not injected. Cornea within normal limits. Periorbital areas with no swelling, redness, or edema. ENT: Nares patent. No nasal discharge, no septal abnormalities noted. Tympanic membranes are normal and external auditory canals are clear. Oropharynx with no redness, swelling, or masses, exudates, or evidence of obstruction, uvula midline. Mucous membranes moist. Neck: Trachea midline, no thyromegaly or masses palpated, and no cervical lymphadenopathy. Supple, full range of motion without nuchal rigidity, or vertebral point tenderness. No Meningismus. Chest/axilla: Normal chest wall appearance and motion. Nontender with no deformity. No lesions are appreciated. Cardiovascular: Regular rate and rhythm with a normal S1 and S2. No gallops, murmurs, or rubs. Normal PMI, no JVD. No pulse deficits. Respiratory: Lungs have equal breath sounds bilaterally, clear to auscultation and percussion. No rales, rhonchi or wheezes noted. No increased work of breathing, no retractions or nasal flaring. Back: No spinal tenderness. No costovertebral tenderness. Full range of motion. Male : Normal genitalia with no discharge or lesions. Skin: Warm, dry with normal turgor. Normal color with no rashes, no lesions, and no evidence of cellulitis. MS/ Extremity: Pulses equal, no cyanosis. Neurovascular intact. Full, normal range of motion. Neuro: Awake and alert, GCS 15, oriented to person, place, time, and situation. Cranial nerves II-XII grossly intact. Motor strength 5/5 in all extremities. Sensory grossly intact. Cerebellar exam normal. Normal gait. Psych: Awake, alert, with orientation to person, place and time. Behavior, mood, and affect are within normal limits. 00:53 Abdomen/GI: Inspection: abdomen appears normal, Bowel sounds: normal, Palpation: mild abdominal tenderness, in the suprapubic area and left lower quadrant, Liver: no appreciated palpable abnormalities, Hernia: not appreciated. Vital Signs: 07/16 20:42 BP 162 / 63; Pulse 80; Resp 18; Temp 98.5(O); Pulse Ox 97% on R/A; Weight 127.01 kg jb4 (R); Height 5 ft. 11 in. (180.34 cm) (R); Pain 10/10; 22:30 BP 124 / 43; Pulse 67; Resp 16; Pulse Ox 94% on R/A; jb4 23:15 BP 133 / 56; Pulse 68; Resp 16; Pulse Ox 94% on R/A; 4 07/17 00:15 BP 119 / 39; Pulse 70; Resp 16; Pulse Ox 96% on R/A; 4 01:30 BP 147 / 46; Pulse 72; Resp 16; Pulse Ox 97% on R/A; [facility] 07/16 20:42 Body Mass Index 39.05 (127.01 kg, 180.34 cm) [facility] MDM: 07/16 21:30 Patient medically screened. [facility] 07/16 21:54 Order name: Basic Metabolic Panel; Complete Time: 00:33 [facility] 07/16 21:54 Order name: CBC with Diff; Complete Time: 00:33 [facility] 07/16 21:54 Order name: LFT's; Complete Time: 00:33 [facility] 07/16 21:54 Order name: Magnesium; Complete Time: 00:33 [facility] 07/16 21:54 Order name: NT PRO-BNP; Complete Time: 00:33 [facility] 07/16 21:54 Order name: PT-INR; Complete Time: 00:33 [facility] 07/16 21:54 Order name: Troponin (emerg Dept Use Only); Complete Time: 00:33 [facility] 07/16 21:54 Order name: XRAY Chest (1 view) [facility] 07/16 21:54 Order name: Lipase; Complete Time: 00:33 [facility] 07/16 21:54 Order name: Urine Culture [facility] 07/16 22:11 Order name: Abdomen EDIN 07/16 22:24 Order name: Urine Dipstick--Ancillary (enter results); Complete Time: 00:33 cm6 07/16 21:54 Order name: EKG; Complete Time: 21:54 [facility] 07/16 21:54 Order name: Cardiac monitoring; Complete Time: 22:37 [facility] 07/16 21:54 Order name: EKG - Nurse/Tech; Complete Time: 22:37 [facility] 07/16 21:54 Order name: Labs collected and sent; Complete Time: 22:18 [facility] 07/16 21:54 Order name: O2 Per Protocol; Complete Time: 22:18 [facility] 07/16 21:54 Order name: O2 Sat Monitoring; Complete Time: 22:19 [facility] 07/16 21:54 Order name: Urine Dipstick-Ancillary (obtain specimen); Complete Time: 22:24 whitney Administered Medications: 22:33 Not Given (Patient Refused): NS 0.9% 1000 ml IV at 75 ml/hr continuous jb4 07/17 01:49 Not Given (Patient Refused): Rocephin 1 grams IV at per protocol once; Given slow IV jb4 push per pharmacy instructions 01:49 Not Given (Patient Refused): Zofran 4 mg IVP once; over 2 minutes jb4 01:51 Not Given (Patient Refused): morphine 2 mg IVP once; (PAIN>8) RASS on ADMN: Combtv4, jb4 Very Agttd3, Agttd2, Rstlss1, AlertClm0, Drwsy-1, LtSdtn-2, ModSdtn-3, DpSdtn-4, UnArsble-5 x2 02:00 Drug: Hydrocodone-Acetaminophen (7.5 mg-325 mg) 1 tabs {Note: Rass score 0.} Route: PO; jb4 02:01 Drug: Kayexalate 45 grams Route: PO; jb4 Disposition: 07/17/19 00:56 Hospitalization ordered by Harrison Najera for Inpatient Admission. Preliminary diagnosis are Abdominal tenderness, End stage renal disease, Hyperkalemia, Obesity, unspecified. - Bed requested for Telemetry/MedSurg (Inpatient). - Status is Inpatient Admission. jb4 - Condition is Stable. - Problem is new. - Symptoms have improved. UTI on Admission? No Signatures: Dispatcher [employer] EDIN Mary Jerez RN RN mw Anderson, Corey, MD MD cha Bryson, James, RN RN jb4 Corrections: (The following items were deleted from the chart) 07/16 22:11 21:55 Abdomen Pelvis W Con+CT.RAD.BRZ ordered. [facility] EDIN 22:38 21:54 IV Saline Lock ordered. [facility] jb4 07/17 02:02 00:56 Hospitalization Ordered by Harrison Najera for Inpatient Admission. Preliminary diagnosis is Abdominal tenderness; End stage renal disease; Hyperkalemia; Obesity, unspecified. Bed requested for Telemetry/MedSurg (Inpatient). Status is Inpatient Admission. Condition is Stable. Problem is new. Symptoms have improved. UTI on Admission? No. [facility] 03:00 02:02 07/17/2019 00:56 Hospitalization Ordered by Harrison Baidoo for Inpatient jb4 Admission. Preliminary diagnosis is Abdominal tenderness; End stage renal disease; Hyperkalemia; Obesity, unspecified. Bed requested for Telemetry/MedSurg (Inpatient). Status is Inpatient Admission. Condition is Stable. Problem is new. Symptoms have improved. UTI on Admission? No. mw
[2019-07-17] MEDS ORDERED: HYDROCODONE/APAP 7.5/325 MG TAB ONE (01:33)
[2019-07-17] MEDS ORDERED: SOD POLYSTYREN SUL 15 GM/60 ML UCUP ONE (01:34)
--- NOTE | 2019-07-17 01:55 | P.HP ---
Certification for Inpatient Patient admitted to: Observation With expected LOS: <2 Midnights Practitioner: I am a practitioner with admitting privileges, knowledge of patient current condition, hospital course, and medical plan of care. Services: Services provided to patient in accordance with Admission requirements found in Title 42 Section 412.3 of the Code of Federal Regulations Patient History Date of Service: 07/17/19 Reason for admission: Abdominal pain History of Present Illness: 68-year-old morbidly obese gentleman with a history of end-stage renal disease on hemodialysis, chronic pain, morbid obesity and diabetes mellitus type 2 presented to the emergency department with a complaint of abdominal pain which started yesterday in the afternoon, around lunchtime. He stated his pain persisted till yesterday in the evening. He therefore presented to the emergency department to be evaluated. The patient was recently hospitalized for perirectal abscess, had I&D performed by Dr. 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 He followed with Dr. Kaplan yesterday and was told to continue dressing his wounds. He does dialysis on Monday and Monday. CT abdomen and pelvis done in the ED was unremarkable, showing no acute changes , no abscess or fistula identified. Patient rated his pain at 2 to 3/10 during my examination in the ED. He has no leukocytosis. Noted hyperkalemia. Patient is hospitalized for monitoring of his abdominal pain given recent I&D for perirectal abscess. Allergies sulfamethoxazole [From Bactrim] Allergy (Verified 06/25/19 08:15) Rash tetracycline Allergy (Verified 06/25/19 08:15) Rash trimethoprim [From Bactrim] Allergy (Verified 06/25/19 08:15) Rash Home Medications: Apixaban [Eliquis *] 2.5 mg PO BID 04/23/19 Cholecalciferol (Vitamin D3) [Vitamin D3] 10,000 unit PO DAILY 04/23/19 Clopidogrel Bisulfate [Plavix*] 75 mg PO DAILY 04/23/19 Docusate [Colace Cap*] 200 mg PO BID PRN 04/23/19 Fexofenadine HCl [Cami Allergy] 180 mg PO DAILY 04/23/19 Gabapentin 300 mg PO TID 04/23/19 Hydrocodone Bit/Acetaminophen [Hydrocodon-Acetaminoph 7.5-325] 1 each PO TIDP PRN 04/23/19 Insulin Aspart [Novolog Flexpen] 40 unit SQ BREAKFAST 04/23/19 Insulin Glargine,Hum.rec.anlog [Lantus Solostar] 40 unit SQ BREAKFAST 04/23/19 Montelukast [Singulair*] 10 mg PO DAILY 04/23/19 [place]-3/Dha/Epa/Fish Oil [[place] 3 500 Softgel] 2 each PO BID 04/23/19 Pantoprazole [Protonix Tab*] 40 mg PO BID 04/23/19 Rosuvastatin Calcium 10 mg PO DAILY 04/23/19 Sevelamer Carbonate [Renvela*] 2,400 mg PO TIDWM 04/23/19 - Past Medical/Surgical History Diabetic: Yes -: End-stage renal disease on hemodialysis, M/W/F -: Atrial fibrillation on chronic anti coagulation therapy -: CAD w cardiac stents -: Hyperlipidemia -: Diabetic neuropathy -: Diabetes mellitus type 2, insulin dependent -: Obstructive sleep apnea -: History of cardiac tamponade -: History of pulmonary embolism -: Pacemaker -: pericarditis -: thoracentesis -: Pacemaker history Psychosocial/ Personal History: Patient is . Lives at home. - Family History Father -: Cancer - Social History Alcohol use: No CD- Drugs: No Caffeine use: Yes Review of Systems Other: General: No fever, no malaise, no unintentional weight loss. Eyes: No eye discharge, Respiratory: No cough, no shortness of breath. CVS: No chest pain, no palpitation, no lightheadedness. GI: No nausea no vomit, no constipation, no diarrhea. He reports regular bowel movement. Musculoskeletal: No joint pains, or joint swelling, no gait instability. Neurology: No headache, no asymmetric, weakness, no problem with swallowing. Except as documented, all other systems reviewed and negative. Physical Examination - Physical Exam General: Alert, In no apparent distress, Oriented x3, Obese HEENT: Normocephalic, PERRLA, Mucous membr. moist/pink, Sclerae nonicteric Neck: Supple, JVD not distended, No Thyromegaly Respiratory: Clear to auscultation bilaterally, Normal air movement Cardiovascular: No edema, Normal pulses, Regular rate/rhythm, Normal S1 S2, No murmurs Capillary refill: <2 Seconds Gastrointestinal: Normal bowel sounds, Soft and benign, Non-distended, Tenderness (Mild tenderness on deep palpation of the left lower quadrant of abdomen. No rebound tenderness or guarding.) Musculoskeletal: No swelling, No erythema Integumentary: No rashes Neurological: Normal speech, Normal strength at 5/5 x4 extr, Cranial nerves 3- 12 intact - Studies Laboratory Data (last 24 hrs) 07/16/19 22:15: PT 12.4, INR 1.05 07/16/19 22:15: WBC 5.7, Hgb 11.1 L, Hct 34.1 L, Plt Count 208 07/16/19 22:15: Sodium 139, Potassium 5.5 H, BUN 42 H, Creatinine 7.27 H*, Glucose 135 H, Magnesium 2.2, Total Bilirubin 0.3, AST 15, ALT 18, Alkaline Phosphatase 98, Lipase 163 Assessment and Plan - Problems (Diagnosis) (1) Abdominal pain Current Visit: Yes Status: Acute (2) Diabetes mellitus type 2 in obese Current Visit: Yes Status: Chronic (3) ESRD (end stage renal disease) Current Visit: No Status: Chronic (4) Perirectal abscess Current Visit: No Status: Chronic (5) Obstructive sleep apnea Current Visit: Yes Status: Acute - Plan Place under observation Patient refused peripheral IV insertion stating he is hard stick. He started he will allow only US guided IV line or PICC. Use Hendricks p.r.n. for pain Consult to Dr. Byrne for hemodialysis orders. Consult to Dr. Kaplan to evaluate his abdominal pain. CPAP/BiPAP at night. Repeat labs in the morning. Oral Kayexalate for hyperkalemia. - Advance Directives Does patient have a Living Will: No Does patient have a Durable POA for Healthcare: No
[2019-07-17] MEDS ORDERED: HYDROCODONE/APAP 10/325 TAB PO PRN (03:05)
[2019-07-17] MEDS ORDERED: ONDANSETRON 4 MG (ODT) TAB PO PRN (03:05)
[2019-07-17 03:37] VITALS: BMI 39.0
[2019-07-17] MEDS: HYDROCODONE/APAP 10/325 TAB PO PRN ×5 (06:56→22:57)
--- NOTE | 2019-07-17 07:43 | EKG ---
Test Date: 2019-07-16 Test Time: 22:33:44 Gas Turbine Assembler: [place] MEASUREMENT RESULTS: Intervals: Rate: 69 AL: 246 QRSD: 132 QT: 398 QTc: 426 Thornton: P: 26 AL: 246 QRS: -67 T: 24 INTERPRETIVE STATEMENTS: Sinus rhythm with 1st degree AV block Left axis deviation Right bundle branch block Possible Lateral infarct, age undetermined Abnormal ECG Compared to ECG 06/25/2019 11:19:35 First degree AV block now present Left-axis deviation now present Right bundle-branch block now present Myocardial infarct finding now present Ventricular-paced complex(es) or rhythm no longer present Electronically Signed On 07-17-19 07:42:57 BUS MATRON by Marin Bradley
--- NOTE | 2019-07-17 08:00 | RAD REPORT ---
EXAM DESCRIPTION: RAD - Chest Single View - 07/16/2019 10:24 pm CLINICAL HISTORY: Abdominal pain and distention COMPARISON: June 27 TECHNIQUE: AP portable chest image was obtained 2217 hours . FINDINGS: Lung volumes are low. No peripheral mass or consolidation. Retro cardiac stranding is susp ected probably atelectasis. Overall this is improved. Right subclavian pacemaker in place. Heart and vasculature are normal. No measurable pleural effusion and no pneumothorax. No acute bony abnormality seen. No acute aortic findings suspected. IMPRESSION: Left base atelectasis.
[2019-07-17] MEDS: INSULIN -REGULAR HUMAN 50 UNIT/0.5 ML ML SQ SCH ×4 (08:37→20:36)
[2019-07-17] MEDS ORDERED: HEPARIN 5000 UNIT/ML 1 ML VIAL SQ SCH (09:00)
--- NOTE | 2019-07-17 13:06 | RAD REPORT ---
EXAM DESCRIPTION: CT - Abdomen Pelvis Wo Contrast - 07/17/2019 1:18 am CLINICAL HISTORY: ABD PAIN COMPARISON: 06/19/2019. TECHNIQUE: CT ABDOMEN PELVIS WITHOUT IV CONTRAST on 07/16/2019 9:54 PM UTILITY MECHANIC SUPERVISOR This exam was performed according to our departmental dose-optimization program, which includes autom ated exposure control, adjustment of the mA and/or kV according to patient size and/or use of iterati ve reconstruction technique. FINDINGS: There is a small left pleural effusion. There is left basilar atelectasis. Abdomen: The liver is normal in appearance. There is no biliary dilatation. Gallbladder is normal in appearance. The pancreas and spleen are normal in appearance. Adrenal glands are normal. Kidneys are moderately atrophic containing several small cysts bilaterally. Abdominal aorta is normal in course and caliber without aneurysm. There is no free air. There is no r etroperitoneal adenopathy. Pelvis: There is mild to moderate distal colonic diverticulosis. Urinary bladder is unremarkable. The re is no free fluid. There are bilateral fat-containing inguinal hernias. Appendix is normal. Skeleton: There are no acute osseous findings. No suspicious bony lesions. IMPRESSION: No acute inflammatory process. Left pleural effusion. Electronically signed by: Geraldo Rome MD 07/17/2019 12:13 AM UTILITY MECHANIC SUPERVISOR Due to temporary technical issues with the PACS/Fluency reporting system, reports are being signed by the in house radiologist as a courtesy to ensure prompt reporting. The interpreting radiologist is f ully responsible for the content of the report.
[2019-07-17] MEDS: APIXABAN 2.5 MG TABLET PO SCH (19:35)
[2019-07-17] MEDS: CIPROFLOXACIN HCL 500 MG TAB PO SCH (20:34)
[2019-07-17] MEDS: metroNIDAZOLE 500 MG TABLET PO SCH (20:34)
--- NOTE | 2019-07-17 20:51 | CON ---
Date of Consultation: 07/17/2019 Reason For Consultation: Abdominal pain. 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 Because he recently had a car diac stent placed so aggressive surgery on him is contraindicated, illnesses were life-threatening, a nd he also had a temporal artery biopsy done prior to that. I saw him in the office yesterday, his w ound looked good. He has good granulation tissue. No surrounding erythema, warmth, edema. No purul ence. Gave a history of small amount of stool in the wound that is probably from the fistula which i s known. He states that after he left my office, at lunch time he started having lower pelvic pain m ostly on the right side. He denied any nausea or vomiting. He does have frequency, but no dysuria o r hematuria. No diarrhea or constipation. No fever or chills. Because of the pain and because of t he recent rectal surgery he was admitted and I was consulted. He is awake, alert, in still some pain , not bad. He has had some clear liquids without any problems earlier today. No sore throat, runny nose, cough, headaches, or dizziness. No chest pain. No fever or chills. Review of Systems: Otherwise unremarkable. Past Medical History: Significant for end-stage renal disease, atrial fibrillation and on chronic an ticoagulation therapy, cardiac stents for coronary artery disease, hyperlipidemia, diabetic neuropath y, type 2 diabetes, obstructive sleep apnea, history of cardiac tamponade, history of pulmonary embol ism, pericarditis. Past Surgical History: Pacemaker, thoracentesis, access for dialysis, temporal artery biopsy, I and D of perirectal abscess. Allergies: INCLUDE SULFA, TETRACYCLINE. Social History: Patient does not smoke or drink. Family History: Cancer in the father of unknown type. Physical Examination: Vital Signs: Stable. He is afebrile. He is awake, alert, and oriented x3. Head and Neck: Cranial nerves 2 through 12 are grossly within normal limits. No neck masses. No JV D. Throat clear. Neck is supple. Chest: Clear. Heart: S1, S2. Abdomen: Soft, nondistended, nontender. Positive bowel sounds. Positive right groin slight tendern ess. No rebound rigidity or guarding. With his obesity it is hard to feel a mass down there. Extremities: Adequately perfused. Nontender. Neuro: Nonfocal. Chest x-ray shows left atelectasis in the base with mild pleural effusion. CT of the abdomen and pel vis shows bilateral fat containing inguinal hernias, otherwise no acute findings. Laboratory Data: Shows a white count of 5.7. There is no left shift. H and H are 11.1 and 34.1, pl atelets are 208, and INR is 1.05. Chemistry reviewed, potassium is slightly elevated. He is going t o be dialyzed today. Assessment: A 68-year-old gentleman with multiple medical problems, lower pelvic pain right side in the groin region probably secondary to his inguinal hernia. Recommendations: As the patient is a very high risk for any kind of surgery like hernia surgery, I w ould recommend management with pain medications at the time being. No heavy lifting. Patient cannot be taken off his blood thinners because of his recent cardiac stents and these are not life threaten ing hernias. There is no bowel present in them perhaps the fat that is present is irritating the ner ve causing the pain. It could also be irritating the bladder causing frequency. There is nothing th at is acute that needs any surgical intervention at this time. All questions of the family including the and the patient were answered and the case was discussed in detail with them as well as Dr. Rodriguez. I will follow the patient while in the hospital and wound care will be ordered and blood thinners will be started and I will see him in my office upo n discharge. /MODL Voice ID: [id number] Report ID: [id number]
--- NOTE | 2019-07-17 20:51 | CON ---
Date of Consultation: 07/17/2019 Reason For Consultation: ESRD, on dialysis. History Of Present Illness: Mr. Mireles is a 68-year-old male with past medical history significa nt for ESRD, on dialysis; recent surgery for perirectal abscess and was discharged, came to the [facility] because of fever, onset of abdominal pain especially in his suprapubic area and the right lower q uadrant. The patient had a CT scan done, which showed no evidence of any acute ongoing pathology wit h left pleural effusion. He does have chronic colonic diverticulosis. He is also complaining of daren e frequency of urination. Past Medical History: Significant for history of ESRD, on dialysis; hypertension; morbid obesity; hi story of PE; cardiac tamponade; obstructive sleep apnea; coronary artery disease, status post stent p lacement; pericarditis; and he is status post pacemaker placement. Family History: Noncontributory. Social History: Lives at home with his family. Review of Systems: Positive for abdominal discomfort associated with some frequency of urination. Denies any chest pain , shortness of breath. All other review of systems was negative. Laboratory Data: Consistent with ESRD with mild hyperkalemia with a potassium of 5.5. CBC showing h emoglobin of 11.1, hematocrit of 34.1. Urinalysis showing proteinuria and hematuria. Current Medications: Have been reviewed in detail. Impression: 1.End-stage renal disease, on dialysis. 2.Abdominal discomfort, etiology unclear. Could be related to urinary tract infection versus clinic al diverticulitis. At this time, we will go ahead and start him on empiric antibiotics with Vonnie Bowman. Since he does not have any IV access at this time, we will go ahead and given dialysis tod ay per his regular schedule and ultrafiltration as needed. Continue all other medications and plan o f care. VV/MODL Voice ID: [id number] Report ID: [id number]
[2019-07-18 05:49] LABS: Absolute Lymphocytes (CBC) 1.4 K/uL (0.7-4.9); Basophils % 1.3 % (0-1.3); MPV 9.8 fL (7.6-11.3); RBC Red Blood Cell Count 3.24 M/uL (4.33-5.43)
[2019-07-18] MEDS: HYDROCODONE/APAP 10/325 TAB PO PRN (06:12)
[2019-07-18 06:15] LABS: Bilirubin Total 0.3 mg/dL (0.2-1.0); Potassium 4.1 mmol/L (3.5-5.1)
[2019-07-18 07:51] VITALS: O2SAT 95
[2019-07-18] MEDS: CIPROFLOXACIN HCL 500 MG TAB PO SCH (07:52)
[2019-07-18] MEDS: INSULIN -REGULAR HUMAN 50 UNIT/0.5 ML ML SQ SCH ×2 (07:53→11:30)
[2019-07-18] MEDS: APIXABAN 2.5 MG TABLET PO SCH (07:53)
[2019-07-18] MEDS: metroNIDAZOLE 500 MG TABLET PO SCH ×2 (07:53→13:20)
[2019-07-18 08:28] VITALS: BP 112/51; TEMP 97.4
[2019-07-18] MEDS ORDERED: CLOPIDOGREL 75 MG TABLET PO SCH (09:00)
--- NOTE | 2019-07-18 12:10 | PN ---
Date of Progress Note: 07/18/2019 Subjective: Patient is awake, alert. Pain is better; however, he still has frequency. The abdomen is benign. Assessment: Lower abdominal pain most likely secondary to hernia and frequency. Recommendations: Patient is cleared from surgical standpoint for discharge. He can follow up with t he urologist if he continues to have frequency and wound care is ordered for the perirectal wound. F ollow up in my office in 12 days. Antibiotics per nephrology team. /MODL Voice ID: [id number] Report ID: [id number]
--- NOTE | 2019-07-18 14:44 | P.SSS ---
Patient History Date of Service: 07/18/19 Reason for admission: Abdominal pain History of Present Illness: 68-year-old morbidly obese gentleman with a history of end-stage renal disease on hemodialysis, chronic pain, morbid obesity and diabetes mellitus type 2 presented to the emergency department with a complaint of abdominal pain which started yesterday in the afternoon, around lunchtime. He stated his pain persisted till yesterday in the evening. He therefore presented to the emergency department to be evaluated. The patient was recently hospitalized for perirectal abscess, had I&D performed by Dr. 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 He followed with Dr. Kaplan yesterday and was told to continue dressing his wounds. He does dialysis on Monday and Monday. CT abdomen and pelvis done in the ED was unremarkable, showing no acute changes , no abscess or fistula identified. Patient rated his pain at 2 to 3/10 during my examination in the ED. He has no leukocytosis. Noted hyperkalemia. Patient is hospitalized for monitoring of his abdominal pain given recent I&D for perirectal abscess. Allergies sulfamethoxazole [From Bactrim] Allergy (Verified 06/25/19 08:15) Rash tetracycline Allergy (Verified 06/25/19 08:15) Rash trimethoprim [From Bactrim] Allergy (Verified 06/25/19 08:15) Rash Home Medications: Apixaban [Eliquis *] 2.5 mg PO BID 04/23/19 Cholecalciferol (Vitamin D3) [Vitamin D3] 10,000 unit PO DAILY 04/23/19 Clopidogrel Bisulfate [Plavix*] 75 mg PO DAILY 04/23/19 Docusate [Colace Cap*] 200 mg PO BID PRN 04/23/19 Fexofenadine HCl [Cami Allergy] 180 mg PO DAILY 04/23/19 Gabapentin 300 mg PO TID 04/23/19 Hydrocodone Bit/Acetaminophen [Hydrocodon-Acetaminoph 7.5-325] 1 each PO TIDP PRN 04/23/19 Insulin Aspart [Novolog Flexpen] 40 unit SQ BREAKFAST 04/23/19 Insulin Glargine,Hum.rec.anlog [Lantus Solostar] 40 unit SQ BREAKFAST 04/23/19 Montelukast [Singulair*] 10 mg PO DAILY 04/23/19 [place]-3/Dha/Epa/Fish Oil [[place] 3 500 Softgel] 2 each PO BID 04/23/19 Pantoprazole [Protonix Tab*] 40 mg PO BID 04/23/19 Rosuvastatin Calcium 10 mg PO DAILY 04/23/19 Sevelamer Carbonate [Renvela*] 2,400 mg PO TIDWM 04/23/19 - Past Medical/Surgical History Has patient received pneumonia vaccine in the past: Yes Diabetic: Yes -: End-stage renal disease on hemodialysis, M/W/F -: Atrial fibrillation on chronic anti coagulation therapy -: CAD w cardiac stents -: Hyperlipidemia -: Diabetic neuropathy -: Diabetes mellitus type 2, insulin dependent -: Obstructive sleep apnea -: History of cardiac tamponade -: History of pulmonary embolism -: Pacemaker -: pericarditis -: thoracentesis -: Pacemaker history Psychosocial/ Personal History: Patient is . Lives at home. - Family History Father -: Cancer - Social History Smoking Status: Never smoker Alcohol use: No CD- Drugs: No Caffeine use: Yes Place of Residence: Home Review of Systems 10-point ROS is otherwise unremarkable Physical Examination - Vital Signs Temperature: 97.4 F Blood Pressure: 112/51 Pulse: 78 Respirations: 18 Pulse Ox (%): 95 - Physical Exam General: Alert, In no apparent distress HEENT: Atraumatic, PERRLA, Mucous membr. moist/pink, EOMI, Sclerae nonicteric Neck: Supple, 2+ carotid pulse no bruit, No LAD, Without JVD or thyroid abnormality Respiratory: Clear to auscultation bilaterally, Normal air movement Cardiovascular: Regular rate/rhythm, Normal S1 S2 Gastrointestinal: Normal bowel sounds, No tenderness Musculoskeletal: No tenderness Integumentary: No rashes Neurological: Normal gait, Normal speech, Normal strength at 5/5 x4 extr, Normal tone, Normal affect Lymphatics: No axilla or inguinal lymphadenopathy - Diagnosis (Problem(s)) (1) Abdominal pain Current Visit: Yes Status: Resolved Qualifiers: Abdominal location: periumbilical Qualified Code(s): R10.33 - Periumbilical pain (2) Obstructive sleep apnea Current Visit: Yes Status: Chronic (3) Diabetes mellitus type 2 in obese Current Visit: Yes Status: Chronic (4) ESRD (end stage renal disease) Current Visit: No Status: Chronic - Disposition Disposition: ROUTINE DISCHARGE Condition: GOOD Diet: Regular Activity: Ad charla
[2019-07-19] MEDS ORDERED: CIPROFLOXACIN HCL 500 MG TAB PO SCH (09:00)
== END 2019-07-18 13:54 | disposition home or self-care (01) ==
LOC: ER 20:39 → ERHOLD 07-17 01:59 → 4TH 07-17 02:42
PROVIDERS: ADMIT Internal Medicine; ATTEND Internal Medicine
DX: R10.9 Unspecified abdominal pain (principal); I12.0 Hypertensive chronic kidney disease with stage 5 chronic kidney disease or end stage renal disease; E11.22 Type 2 diabetes mellitus with diabetic chronic kidney disease; N18.6 End stage renal disease; I48.20 Chronic atrial fibrillation, unspecified; Z79.01 Long term (current) use of anticoagulants; E11.40 Type 2 diabetes mellitus with diabetic neuropathy, unspecified; G47.33 Obstructive sleep apnea (adult) (pediatric); Z86.711 Personal history of pulmonary embolism; Z95.0 Presence of cardiac pacemaker; Z99.2 Dependence on renal dialysis; I25.10 Atherosclerotic heart disease of native coronary artery without angina pectoris; Z95.5 Presence of coronary angioplasty implant and graft
CPT/HCPCS: 93005; 87088; 85025 ×2; 87086; 80048; 36415 ×2; 83735; 85610; 82947 ×5; 80076; 81003; 84484; 83690; 80053; 83880; 74176; 71045; 90935; 94760 ×3; 99285; G0378 ×3; J7030

== ENCOUNTER 2019-11-05 17:22 | Inpatient (IN) | payer OTHER, MEDICARE ==
--- NOTE | 2019-11-06 13:25 | R.PREADM ---
SCREENING DATE AND TIME 11/05/2019 09:35 (DIRECTOR INSURANCE) ANTICIPATED REHAB ADMISSION DATE 11/07/2019 REFERRING FACILITY [facility] REFERRAL DATE AND TIME 11/05/2019 09:35 (DIRECTOR INSURANCE) ACUTE ADMIT DATE 10/22/2019 Previous Rehabilitation(s): No. ACUTE SEAMER/DC PARK RANGER Jay Huynh REFERRING PHYSICIAN Sandra Bray REHAB FACILITY [facility] CLINICAL LIAISON Lisa Wallace PHYSICIAN REVIEWER Dr. James Jules M.D. MR# [id number] [id number] NAME SHELLI MIRELES ADDRESS [address] [place] [place] [address] [place]IP [phone] DATE OF 1950 AGE 69 SSN# [id number] GENDER male MARITAL STATUS RACE white ADMIT FROM 02 - [facility] PRE-HOSPITAL LIVING SETTING 01 - Home (private home/apt. board/care, assisted living, fdc, transitional living) HOME TYPE AND DETAILS Type of home: single family house # of steps to enter the residence: 0 # of levels in the residence: 1 # of steps within the residence: 0 PRE-HOSPITAL LIVING WITH Family/Relatives FAMILY SUPPORT Yes PRIMARY FAMILY CONTACT NAME CHILO MIRELES PRIMARY FAMILY CONTACT PHONE PHONE PRIMARY FAMILY CONTACT ON ADM.? no IS PRIMARY FAMILY CONTACT AUTH. REP.? no 1ST EMERGENCY CONTACT CHILO MIRELES 1ST CONTACT PHONE PHONE 1ST CONTACT ON ADM. no IS 1ST CONTACT AUTH. REP.? no PHONE 2ND CONTACT ON ADM.? no PATIENT EMPLOYMENT STATUS Retired (for age) PATIENT EMPLOYER No Employer PAYOR INFORMATION: 1ST PAYOR NAME MEDICARE 1ST PAYOR PHONE [phone] 1ST PAYOR INJURY/ILLNESS DUE TO ACCIDENT? No ANOTHER REPUBLICAN RESPONSIBLE? No PRIMARY REHAB/ACUTE DIAGNOSIS: NSTEMI ONSET DATE 10/22/2019 REHAB IMPAIRMENT CATEGORY (LUIGI): 14 Cardiac does NOT meet 60% rule PRIMARY DIAGNOSIS-RELATED SURGERIES: Bypass, Aorta Coronary DESMOND/SVG on 10/28/2019 Endoscopic Vein [place] Left on 10/28/2019 Sternotomy Median transthoracic on 10/28/2019 STEPHANIE, 3D on 10/28/2019 COMORBID REHAB/ACUTE DIAGNOSES: - Tier 1 Dependence on renal dialysis (Z99.2) - Tier 3 Type 2 diabetes mellitus with diabetic polyneuropathy (E11.42) - Non-Tiered Obstructive sleep apnea (adult) (G47.33) - N/A NSTEMI Syncope ESRD Pleaural effusion on left Pericardial Tamponade CHF Hepatitis A Hypertension INTERVENTIONS: - Hypertension Fluid management Medications VS RISK FOR COMPLICATIONS: - Hypertension CVA Hypotension HI TIA SUMMARY OF ACUTE HOSPITALIZATION: Pt. is a 69 yo Right-handed white male. On 10/22/2019 he was admitted to [facility] with diagnosis NSTEMI. His impairment category is Cardiac 09 - Cardiac Disorders (09). Pre-morbidly, Pt. was independent/mod-I in Locomotion, Safety Awareness, Balance, Social Cognition, T ransfers Control, Sphincter Control, Self-Care, Endurance, and Communication; and he had good Locomot ion, Balance, Safety Awareness, Social Cognition, Transfers Control, Sphincter Control, Self-Care, Co mmunication, and Endurance. Currently, he has deficits of Locomotion, Safety Awareness, Balance, Transfers Control, Self-Care, Co mmunication, and Endurance. Pt. is now referred to [facility] for acute in-patient rehabilitation in order to maximize patient's functional independence in activities of daily living, strength, ROM, and mobi lity. Patient has realistic goal of being discharged at assistance level 6-Rashaun to reside at Home with Fam casper/Relatives. Shelli Mireles is a 69 year old male that lives in a single sander house with his . He ambulates independently with assistance needed with ADLs. On 10/22/2019, patient complained of unstable angina and underwent Coronary Angiogram revealing multivessel disease and was admitted to [facility]. He is now medically stable but in need of 24-hour nursing, doctor supervision and oversite participate in 3hours of therapy a day/15 hours per week and receive care with an intensive interdisciplinary approach. PAST MEDICAL HISTORY CHF Dependence on renal dialysis (Z99.2) ESRD Hepatitis A Hypertension NSTEMI Obstructive sleep apnea (adult) (G47.33) Pericardial Tamponade Pleaural effusion on left Syncope Type 2 diabetes mellitus with diabetic polyneuropathy (E11.42) PAST SURGICAL HISTORY: PACEMAKER PLACEMENT Temporal Artery Biopsy MEDICATION ALLERGIES: Sulfa ENVIRONMENTAL ALLERGIES: None Known - Substance Allergies None Known - Other Allergies None Known CODE STATUS: Full code WEIGHT/HEIGHT/BMI: WEIGHT 282 lbs HEIGHT 5' 11" BMI 39.3 DIET: - Diet Type Regular - Diet - Solid Texture Regular - Diet - Liquid Texture Regular - Tube Feed N/A SKIN DIAGRAM: Incision on Chest; extent - small; stage - NS(Not Stageable). Treatment - Per Physician's Orders. REVIEW OF SYSTEMS: - Gen Alert and awake Lying in bed No apparent distress Oriented to: person, time, and place - Vital Signs Temperature: 97.8 F SBP/DBP: 107/42 Pulse: 79 Resp: 15 Vital signs stable, afebrile - CVS RRR VITAL SIGNS Temperature: 97.8 F SBP/DBP: 107/42 Pulse: 79 Resp: 15 Vital signs stable, afebrile MEDICATIONS/TREATMENT: Other- See attached MAR (Medication Administration Record). See attached MAR (Medication Administration Record) Ritika [email or web address]. CURRENT SPHINCTER CONTROL: Pre-hospital bladder status: continent # of bladder accidents in the last 7 days prior to screenin Pre-hospital bowel status: continent # of bowel accidents in the last 7 days prior to screenin Last Bowel Movement Date: CURRENT LOCOMOTION STATUS: distance walked 120 feet DETAILED CURRENT FUNCTIONAL STATUS: - Bladder accident frequency: Ind - No accidents in the past 7 days - Bowel accident frequency: Ind - No accidents in the past 7 days - Walking score based on distance walked: 0(N/A) score based on distance walked: 2(5149ft) - Wheelchair score based on distance traveled: 0(N/A) QI SCORES: - Self-Care A. Eating 05-Setup or clean-up assistance B. Oral hygiene 05-Setup or clean-up assistance C. Toileting hygiene 02-Substantial/maximal assistance E. Shower/bathe self 03-Partial/moderate assistance F. Upper body dressing 03-Partial/moderate assistance G. Lower body dressing 01-Dependent H. Putting on/taking off footwear 01-Dependent - Mobility A. Roll left and right 03-Partial/moderate assistance B. Sit to lying 03-Partial/moderate assistance C. Lying to sitting on side of bed 03-Partial/moderate assistance D. Sit to stand 03-Partial/moderate assistance E. Chair/umu-ly-vrjbz transfer 03-Partial/moderate assistance F. Toilet transfer 03-Partial/moderate assistance G. Car transfer 10-Not attempted due to environmental limitations I. Walk 10 feet 03-Partial/moderate assistance J. Walk 50 feet with two turns 88-Not attempted due to medical condition or safety concerns K. Walk 150 feet 03-Partial/moderate assistance L. Walking 10 feet on uneven surfaces 88-Not attempted due to medical condition or safety concerns M. 1 step (curb) 88-Not attempted due to medical condition or safety concerns N. 4 steps 88-Not attempted due to medical condition or safety concerns O. 12 steps 88-Not attempted due to medical condition or safety concerns P. Picking up object 88-Not attempted due to medical condition or safety concerns R. Wheel 50 feet with two turns 88-Not attempted due to medical condition or safety concerns S. Wheel 150 feet 88-Not attempted due to medical condition or safety concerns - Bladder and Bowel Bladder continence 0-Always continent Bowel continence 0-Always continent - Endurance Poor - Balance Fair - Safety Awareness Fair CURRENT FUNC. DEFICITS: Self-Care, Mobility, Endurance, Balance, and Safety Awareness CURRENT / PREVIOUS ASSISTIVE DEVICES: 3-in-1 Commode BSC [facility] Hospital Bed Oxygen Rolling Walker Shower Chair Tub Bench Wheelchair CURRENT USE ASSISTIVE DEVICES: CPAP SCDs HISTORY OF FALLS. HAS THE PATIENT HAD TWO OR MORE FALLS IN THE PAST YEAR OR ANY FALL WITH INJURY IN T HE PAST YEAR?: No PRIOR SURGERY. DID THE PATIENT HAVE MAJOR SURGERY DURING THE 100 DAYS PRIOR TO ADMISSION?: No THERAPY NOTES FROM ACUTE CARE: Attached. SPECIAL NEEDS: - Safety Concerns Skin breakdown precautions needed due to skin breakdown risk PATIENT NEEDS ACTIVE AND ONGOING THERAPEUTIC INTERVENTION OF MULTIPLE THERAPY DISCIPLINES, INCLUDING: - Dietary and Nutrition Adequate Nutrition. Nutritional Education. Nutritional Supplements. PATIENT NEEDS CLOSE MEDICAL SUPERVISION BY A REHABILITATION PHYSICIAN FOR: Coordination of Treatment Team Diabetes Management Medical and Co-Morbidity Management Wound Care PATIENT REQUIRES 24X7 REHAB NURSING FOR MEDICAL AND FUNCTIONAL MGT. OF THE FOLLOWING DEFICITS: Disease Management Medication Management Patient/Family Education Providing Safe Environment Skin Integrity PATIENT REQUIRES INTENSIVE, COORDINATED INTERDISCIPLINARY APPROACH TO REHAB: Arranging Home Equipment/Services Discharge Planning Family Intervention/Training French Drawer/Case Management PATIENT REHAB POTENTIAL: AracelisSaira RUCHI is able and expected to receive 3 hours of individualized therapy daily on at least 5 o f every 7 days Omari MIRELES's prognosis for significant practical improvement within a reasonable period of time ap pears Good Expected level of measurable improvement will be of a practical value to Omari MIRELES's functional c apacity or adaptations to impairments Has a viable Discharge Plan Medically appropriate; condition is sufficiently stable to participate in intensive rehab program DISCHARGE PLAN: - Estimated Length of Stay (days) 10. - Consensus on plan Discharge plan has been discussed with primary caregiver. Patient/Family is in agreement with the catina n. Primary caregiver is in agreement with the plan. - Patient/Family Goals Return home with assistance. - Planned Living Setting Upon Discharge Home, to live with Family/Relatives. Transitional Living. RECOMMENDED CARE LEVEL: IRF RECOMMENDATION DETAILS: Recommended Admission to Comprehensive Rehabilitation Program to Increase Functional [place] SCREENER'S COMPLETENESS CONFIRMATION: - Screening Confirmation The patient data collection on this preadmission screening form is finished PHYSICIANS REVIEW AND ADMISSION DETERMINATION Admit - Based on my review of the Pre-Admission Screening results, in my medical judgment and experie nce, I concur with the findings and recommend admission to [facility], as this patient requires an IRF level of care. SIGNATURE PANEL: Clinical Liaison - [electronically] signed by Lisa Wallace on 11/05/2019 at 10:10 (DIRECTOR INSURANCE) Physician Reviewer - [electronically] signed by Dr. James Jules M.D. on 11/06/2019 at 13:25 (DIRECTOR INSURANCE )
--- OUTSIDE RECORDS SUMMARY | 2019-11-06 23:14 | XMS REPORT ---
:1950 [facility] Address [address] [place] [address] Dr. Guerrero [address] [place] [id number] Care Team Providers Name Role Phone SELAM LEANDER MAIN Unavailable Unavailable MALCOLM BAIN Unavailable Unavailable MALENA YEPEZ Unavailable Unavailable JOSEE KURTZ Unavailable Unavailable SHAMROSS, LEONORA-JANETH BHATT-AHMED Unavailable Unavailable Problems This patient has no known problems. Allergies, Adverse Reactions, Alerts This patient has no known allergies or adverse reactions. Medications This patient has no known medications. Results Test Description Test Time Test Comments Text Results Atomic Results Result Comments RAD, CHEST, 1 2019-11-06 11:53:00 Reason for exam:->S/p FINAL REPORT PATIENT ID: VIEW, NON DEPT CT surgeryShould this [id number] RAD, CHEST, 1 be performed at the VIEW, NON DEPT INDICATION: bedside?->Yes S/p CT surgery COMPARISON: Prior day's exam FINDINGS: Portable frontal view of the chest. IMPRESSION: Support Lines: Stable. Lungs and pleura: Unchanged airspace and pleural opacities. No pneumothorax.Heart and mediastinum: Stable contours. Stable surgical changes.Additional findings: None. Signed: Dasia Last Verified Date/Time: 11/06/2019 11:53:03 Reading Location: [facility] Radiology Reading Room -GLUCOSE METER 2019-11-06 11:31:00 Test Item Value Reference Range Comments POC-GLUCOSE METER (BEAKER) 149 mg/dL 70-110 : TESTED AT [facility] [address] [place] [address] (test msrv=0403) [place], [address]: Preparation Supervisor Freezing/Tool And Die Manager [id number] for Alfredo Nj CBC W/PLT COUNT & AUTO [id number] 10:58:00 Test Item Value Reference Range Comments WHITE BLOOD CELL COUNT (BEAKER) (test wrmh=613) 6.2 K/ L 3.5-10.5 RED BLOOD CELL COUNT (BEAKER) (test boeo=480) 2.55 M/ L 4.63-6.08 HEMOGLOBIN (BEAKER) (test gjnp=690) 7.8 GM/DL 13.7-17.5 HEMATOCRIT (BEAKER) (test zjdu=267) 24.9 % 40.1-51.0 MEAN CORPUSCULAR VOLUME (BEAKER) (test ryeq=164) 97.6 fL 79.0-92.2 MEAN CORPUSCULAR HEMOGLOBIN (BEAKER) (test 30.6 pg 25.7-32.2 fkiz=238) MEAN CORPUSCULAR HEMOGLOBIN CONC (BEAKER) (test 31.3 GM/DL 32.3-36.5 fycz=498) RED CELL DISTRIBUTION WIDTH (BEAKER) (test 16.6 % 11.6-14.4 jkvw=324) PLATELET COUNT (BEAKER) (test nmfo=518) 248 K/CU MM 150-450 MEAN PLATELET VOLUME (BEAKER) (test gzdz=167) 11.0 fL 9.4-12.4 NUCLEATED RED BLOOD CELLS (BEAKER) (test 0 /100 WBC 0-0 xaow=603) (CELLAVISION MANUAL DIFF)2019-11-06 10:58:00 Test Item Value Reference Range Comments NEUTROPHILS - REL (CELLAVISION)(BEAKER) (test 70 % rxxp=0531) LYMPHOCYTES - REL (CELLAVISION)(BEAKER) (test 21 % wfco=5786) MONOCYTES - REL (CELLAVISION)(BEAKER) (test 6 % jhxt=4820) METAMYELOCYTES - REL (CELLAVISION)(BEAKER) (test 2 % 0-0 fdte=3011) ATYPICAL LYMPHOCYTES - REL (CELLAVISION)(BEAKER) 1 % 0-0 (test dgti=2157) NEUTROPHILS - ABS (CELLAVISION)(BEAKER) (test 4.34 K/ul 1.78-5.38 eeps=5130) LYMPHOCYTES - ABS (CELLAVISION)(BEAKER) (test 1.30 K/ul 1.32-3.57 dyum=4919) MONOCYTES - ABS (CELLAVISION)(BEAKER) (test 0.37 K/uL 0.30-0.82 edwb=6882) METAMYELOCYTES - ABS (CELLAVISION)(BEAKER) (test 0.12 K/uL 0.00-0.00 wftc=4744) ATYPICAL LYMPHOCYTES - ABS (CELLAVISION)(BEAKER) 0.06 K/uL 0.00-0.00 (test rcsa=1637) TOTAL COUNTED (BEAKER) (test nktg=2806) 100 WBC MORPHOLOGY (BEAKER) (test hbwi=276) Normal PLT MORPHOLOGY (BEAKER) (test ddle=564) Normal ANISOCYTOSIS (BEAKER) (test qkxh=844) 1+ few MACROCYTES (BEAKER) (test pywg=004) 1+ few POIKILOCYTES (BEAKER) (test xjng=094) 1+ few ARTIFACT (CELLAVISION)(BEAKER) (test ydwl=3014) Present PLATELET CONCENTRATION (CELLAVISION)(BEAKER) (test Adequate vcnb=8882) Preparation Supervisor Freezing ID - chimereucheyaUser comments: Slide comments:BASIC METABOLIC [id number] 05:32:00 Test Item Value Reference Range Comments SODIUM (BEAKER) (test 141 meq/L 136-145 bgwd=264) POTASSIUM (BEAKER) (test 4.5 meq/L 3.5-5.1 vxoa=898) CHLORIDE (BEAKER) (test 105 meq/L 98-107 ddup=553) CO2 (BEAKER) (test 30 meq/L 22-29 fimp=070) BLOOD UREA NITROGEN 28 mg/dL 7-21 (BEAKER) (test sujs=068) CREATININE (BEAKER) (test 5.35 mg/dL 0.57-1.25 sqml=735) GLUCOSE RANDOM (BEAKER) 137 mg/dL 70-105 (test gigq=549) CALCIUM (BEAKER) (test 9.4 mg/dL 8.4-10.2 ozqa=592) EGFR (BEAKER) (test 11 mL/min/1.73 sq m ESTIMATED GFR IS NOT wuke=5591) ACCURATE CREATININE CLEARANCE IN PREDICTING GLOMERULAR FILTRATION RATE. ESTIMATED GFR IS NOT APPLICABLE FOR DIALYSIS PATIENTS. Preparation Supervisor Freezing ID - OZZY [id number] 05:30:00 Test Item Value Reference Range Comments PHOSPHORUS (BEAKER) (test yviy=591) 3.3 mg/dL 2.3-4.7 Preparation Supervisor Freezing ID - OZZY [id number] 05:30:00 Test Item Value Reference Range Comments MAGNESIUM (BEAKER) (test ckfi=744) 2.2 mg/dL 1.6-2.6 Preparation Supervisor Freezing ID - OZZY WPOCT-GLUCOSE [id number] 22:07:00 Test Item Value Reference Range Comments POC-GLUCOSE METER (BEAKER) 142 mg/dL 70-110 : TESTED AT [address] (test owzl=2825) [facility], [address]: Preparation Supervisor Freezing/Tool And Die Manager [id number] for SHAYLA GRAFF III TROPONIN [id number] 17:33:00 Test Item Value Reference Range Comments TROPONIN I (BEAKER) (test cnuu=632) 0.42 ng/mL 0.00-0.03 Troponin I (TnI) levels must [...] failure, acidosis, acute neurological disease, and persistent tachyarrhythmia.Preparation Supervisor Freezing ID - BSPOCT-GLUCOSE [id number] 15:21:00 Test Item Value Reference Range Comments POC-GLUCOSE METER (BEAKER) 126 mg/dL 70-110 : TESTED AT [address] (test kkdz=9495) [facility], [address]: Preparation Supervisor Freezing/Tool And Die Manager [id number] for WINDY BINGHAM POCT-GLUCOSE [id number] 12:15:00 Test Item Value Reference Range Comments POC-GLUCOSE METER (BEAKER) 226 mg/dL 70-110 : TESTED AT [address] (test pvmc=7943) [facility], [address]: Preparation Supervisor Freezing/Tool And Die Manager [id number] for CHARANJIT CORONADO BASIC METABOLIC [id number] 08:09:00 Test Item Value Reference Range Comments SODIUM (BEAKER) (test 138 meq/L 136-145 nyiq=972) POTASSIUM (BEAKER) (test 4.8 meq/L 3.5-5.1 ewti=504) CHLORIDE (BEAKER) (test 101 meq/L 98-107 pupn=406) CO2 (BEAKER) (test 28 meq/L 22-29 rgkl=148) BLOOD UREA NITROGEN 47 mg/dL 7-21 (BEAKER) (test vmnq=052) CREATININE (BEAKER) (test 6.88 mg/dL 0.57-1.25 iyxm=314) GLUCOSE RANDOM (BEAKER) 135 mg/dL 70-105 (test oqns=315) CALCIUM (BEAKER) (test 9.5 mg/dL 8.4-10.2 llzy=737) EGFR (BEAKER) (test 8 mL/min/1.73 sq m ESTIMATED GFR IS NOT fhop=8169) ACCURATE CREATININE CLEARANCE IN PREDICTING GLOMERULAR FILTRATION RATE. ESTIMATED GFR IS NOT APPLICABLE FOR DIALYSIS PATIENTS. Preparation Supervisor Freezing ID - NIMESH CPOCT-GLUCOSE [id number] 08:07:00 Test Item Value Reference Range Comments POC-GLUCOSE METER (BEAKER) 170 mg/dL 70-110 : TESTED AT [address] (test vztp=8884) [facility], [address]: Preparation Supervisor Freezing/Tool And Die Manager [id number] for CHARANJIT CORONADO [id number] 07:56:00 Test Item Value Reference Range Comments PHOSPHORUS (BEAKER) (test vbrc=116) 4.2 mg/dL 2.3-4.7 Preparation Supervisor Freezing ID - NIMESH [id number] 07:56:00 Test Item Value Reference Range Comments MAGNESIUM (BEAKER) (test ybbr=382) 2.4 mg/dL 1.6-2.6 Preparation Supervisor Freezing ID - NIMESH CCBC W/PLT COUNT & AUTO [id number] 05:48:00 Test Item Value Reference Range Comments WHITE BLOOD CELL COUNT (BEAKER) (test nvye=358) 6.6 K/ L 3.5-10.5 RED BLOOD CELL COUNT (BEAKER) (test goar=155) 2.51 M/ L 4.63-6.08 HEMOGLOBIN (BEAKER) (test vuzo=906) 7.6 GM/DL 13.7-17.5 HEMATOCRIT (BEAKER) (test gewr=518) 24.6 % 40.1-51.0 MEAN CORPUSCULAR VOLUME (BEAKER) (test dmry=220) 98.0 fL 79.0-92.2 MEAN CORPUSCULAR HEMOGLOBIN (BEAKER) (test 30.3 pg 25.7-32.2 olak=815) MEAN CORPUSCULAR HEMOGLOBIN CONC (BEAKER) (test 30.9 GM/DL 32.3-36.5 tdrg=708) RED CELL DISTRIBUTION WIDTH (BEAKER) (test 15.5 % 11.6-14.4 jlgk=272) PLATELET COUNT (BEAKER) (test nhao=432) 265 K/CU MM 150-450 MEAN PLATELET VOLUME (BEAKER) (test romy=953) 10.9 fL 9.4-12.4 NUCLEATED RED BLOOD CELLS (BEAKER) (test 0 /100 WBC 0-0 vpwj=907) NEUTROPHILS RELATIVE PERCENT (BEAKER) (test 62 % zcnt=754) LYMPHOCYTES RELATIVE PERCENT (BEAKER) (test 20 % oogk=938) MONOCYTES RELATIVE PERCENT (BEAKER) (test 10 % fapa=247) EOSINOPHILS RELATIVE PERCENT (BEAKER) (test 2 % mdab=960) BASOPHILS RELATIVE PERCENT (BEAKER) (test 1 % cfhx=995) NEUTROPHILS ABSOLUTE COUNT (BEAKER) (test 4.09 K/ L 1.78-5.38 crrt=285) LYMPHOCYTES ABSOLUTE COUNT (BEAKER) (test 1.33 K/ L 1.32-3.57 sswd=704) MONOCYTES ABSOLUTE COUNT (BEAKER) (test 0.69 K/ L 0.30-0.82 pdkq=929) EOSINOPHILS ABSOLUTE COUNT (BEAKER) (test 0.14 K/ L 0.04-0.54 gjxq=479) BASOPHILS ABSOLUTE COUNT (BEAKER) (test 0.04 K/ L 0.01-0.08 sajk=824) IMMATURE GRANULOCYTES-RELATIVE PERCENT (BEAKER) 5 % 0-1 (test xjdi=2103) RAD, CHEST, 1 VIEW, NON [id number] 05:37:00Reason for exam:->Vapotherm, bipapShould this be performed at the bedside?->YesFINAL REPORT RAD, CHEST, 1 VIEW, NON DEPT INDICATION: Vapotherm, bipap COMPARISON: November 03, 2019 FINDINGS: Portable frontal view of the chest. IMPRESSION: Support Lines: Interval removal of right IJ sheath.Lungs and pleura: Airspace and pleural opacities, greater on the left,are unchanged. No pneumothorax.Heart and mediastinum: Stable contours. Additional findings: Right ICD device and left axillary vascular stent. Signed: Ladarius Kim MDReport Verified Date/ Time: 11/05/2019 05:37:42 POCT-GLUCOSE [id number] 21:21:00 Test Item Value Reference Range Comments POC-GLUCOSE METER (BEAKER) 175 mg/dL 70-110 : TESTED AT [address] (test cysq=0067) [facility], [facility]: Preparation Supervisor Freezing/Tool And Die Manager [id number] for Otilia Lowe POCT-GLUCOSE [id number] 18:00:00 Test Item Value Reference Range Comments POC-GLUCOSE METER (BEAKER) 170 mg/dL 70-110 : TESTED AT [address] (test hfpu=7010) [facility], [address]: Preparation Supervisor Freezing/Tool And Die Manager [id number] for Alfredo Nj ANAEROBIC [id number] 17:27:00 Test Item Value Reference Range Comments CULTURE (BEAKER) (test zkfo=5451) No anaerobes isolated POCT-GLUCOSE [id number] 11:46:00 Test Item Value Reference Range Comments POC-GLUCOSE METER (BEAKER) 183 mg/dL 70-110 : TESTED AT [address] (test fskh=4746) [facility], [address]: Preparation Supervisor Freezing/Tool And Die Manager [id number] for Alfredo Nj CBC W/PLT COUNT & AUTO [id number] 08:59:00 Test Item Value Reference Range Comments WHITE BLOOD CELL COUNT (BEAKER) (test tcsj=383) 5.4 K/ L 3.5-10.5 RED BLOOD CELL COUNT (BEAKER) (test zrys=008) 2.44 M/ L 4.63-6.08 HEMOGLOBIN (BEAKER) (test rpnj=258) 7.6 GM/DL 13.7-17.5 HEMATOCRIT (BEAKER) (test sxxb=147) 23.9 % 40.1-51.0 MEAN CORPUSCULAR VOLUME (BEAKER) (test dngc=550) 98.0 fL 79.0-92.2 MEAN CORPUSCULAR HEMOGLOBIN (BEAKER) (test 31.1 pg 25.7-32.2 fezd=885) MEAN CORPUSCULAR HEMOGLOBIN CONC (BEAKER) (test 31.8 GM/DL 32.3-36.5 kjln=467) RED CELL DISTRIBUTION WIDTH (BEAKER) (test 15.7 % 11.6-14.4 nuyr=587) PLATELET COUNT (BEAKER) (test lvep=624) 232 K/CU MM 150-450 MEAN PLATELET VOLUME (BEAKER) (test lyor=346) 10.6 fL 9.4-12.4 NUCLEATED RED BLOOD CELLS (BEAKER) (test 0 /100 WBC 0-0 bxtg=798) (CELLAVISION MANUAL DIFF)2019-11-04 08:59:00 Test Item Value Reference Range Comments NEUTROPHILS - REL (CELLAVISION)(BEAKER) (test 58 % itnf=1842) LYMPHOCYTES - REL (CELLAVISION)(BEAKER) (test 28 % nvbt=4279) MONOCYTES - REL (CELLAVISION)(BEAKER) (test 2 % xcay=4053) EOSINOPHILS - REL (CELLAVISION)(BEAKER) (test 4 % nvpl=3699) BASOPHILS - REL (CELLAVISION)(BEAKER) (test 2 % eraa=6688) METAMYELOCYTES - REL (CELLAVISION)(BEAKER) (test 1 % 0-0 mhwr=2372) MYELOCYTES - REL (CELLAVISION)(BEAKER) (test 2 % 0-0 qznj=9780) BANDS - REL (CELLAVISION)(BEAKER) (test 3 % 0-10 mpjg=6745) NEUTROPHILS - ABS (CELLAVISION)(BEAKER) (test 3.13 K/ul 1.78-5.38 ttnt=2010) LYMPHOCYTES - ABS (CELLAVISION)(BEAKER) (test 1.51 K/ul 1.32-3.57 rbsc=3495) MONOCYTES - ABS (CELLAVISION)(BEAKER) (test 0.11 K/uL 0.30-0.82 dexf=4935) EOSINOPHILS - ABS (CELLAVISION)(BEAKER) (test 0.22 K/uL 0.04-0.54 kzyc=8238) BASOPHILS - ABS (CELLAVISION)(BEAKER) (test 0.11 K/uL 0.01-0.08 awzf=8102) METAMYELOCYTES - ABS (CELLAVISION)(BEAKER) (test 0.05 K/uL 0.00-0.00 xqbu=1642) MYELOCYTES-ABS (CELLAVISION)(BEAKER) (test 0.11 K/uL 0.00-0.00 srmg=3711) BANDS - ABS (CELLAVISION)(BEAKER) (test 0.16 K/uL 0.00-0.80 byou=5967) TOTAL COUNTED (BEAKER) (test kvmb=7490) 100 WBC MORPHOLOGY (BEAKER) (test tcaw=778) Normal PLT MORPHOLOGY (BEAKER) (test uzdn=025) Normal POLYCHROMATOPHILLIC RBCS(BEAKER) (test wvip=777) 1+ few ANISOCYTOSIS (BEAKER) (test ixsr=820) 2+ moderate MICROCYTES (BEAKER) (test kkzj=588) 2+ moderate ARTIFACT (CELLAVISION)(BEAKER) (test kvlx=4723) Present PLATELET CONCENTRATION (CELLAVISION)(BEAKER) Adequate (test rwfk=7842) Preparation Supervisor Freezing ID - Meghna OverholtUser comments: Slide comments:CBC W/PLT COUNT & AUTO [id number] 08:25:00 Test Item Value Reference Range Comments WHITE BLOOD CELL COUNT (BEAKER) (test xmsy=501) 5.5 K/ L 3.5-10.5 RED BLOOD CELL COUNT (BEAKER) (test makz=381) 2.44 M/ L 4.63-6.08 HEMOGLOBIN (BEAKER) (test opga=420) 7.5 GM/DL 13.7-17.5 HEMATOCRIT (BEAKER) (test pmrp=292) 23.8 % 40.1-51.0 MEAN CORPUSCULAR VOLUME (BEAKER) (test xzkn=087) 97.5 fL 79.0-92.2 MEAN CORPUSCULAR HEMOGLOBIN (BEAKER) (test 30.7 pg 25.7-32.2 fjub=245) MEAN CORPUSCULAR HEMOGLOBIN CONC (BEAKER) (test 31.5 GM/DL 32.3-36.5 yhdl=138) RED CELL DISTRIBUTION WIDTH (BEAKER) (test 15.7 % 11.6-14.4 gyin=314) PLATELET COUNT (BEAKER) (test smyx=962) 226 K/CU MM 150-450 MEAN PLATELET VOLUME (BEAKER) (test uunm=891) 10.6 fL 9.4-12.4 NUCLEATED RED BLOOD CELLS (BEAKER) (test 0 /100 WBC 0-0 mdkk=788) (CELLAVISION MANUAL DIFF)2019-11-04 08:25:00 Test Item Value Reference Range Comments NEUTROPHILS - REL (CELLAVISION)(BEAKER) (test 46 % fhfz=5541) LYMPHOCYTES - REL (CELLAVISION)(BEAKER) (test 34 % peju=2490) MONOCYTES - REL (CELLAVISION)(BEAKER) (test 8 % nowo=0506) EOSINOPHILS - REL (CELLAVISION)(BEAKER) (test 6 % epyf=9935) BASOPHILS - REL (CELLAVISION)(BEAKER) (test 2 % hlhd=1868) MYELOCYTES - REL (CELLAVISION)(BEAKER) (test 3 % 0-0 vxfp=5225) BANDS - REL (CELLAVISION)(BEAKER) (test 1 % 0-10 onyo=5985) NEUTROPHILS - ABS (CELLAVISION)(BEAKER) (test 2.53 K/ul 1.78-5.38 ddhr=0169) LYMPHOCYTES - ABS (CELLAVISION)(BEAKER) (test 1.87 K/ul 1.32-3.57 kmig=5206) MONOCYTES - ABS (CELLAVISION)(BEAKER) (test 0.44 K/uL 0.30-0.82 cibt=2541) EOSINOPHILS - ABS (CELLAVISION)(BEAKER) (test 0.33 K/uL 0.04-0.54 rurc=9493) BASOPHILS - ABS (CELLAVISION)(BEAKER) (test 0.11 K/uL 0.01-0.08 yiqs=3424) MYELOCYTES-ABS (CELLAVISION)(BEAKER) (test 0.17 K/uL 0.00-0.00 ezor=9036) BANDS - ABS (CELLAVISION)(BEAKER) (test 0.06 K/uL 0.00-0.80 lvfi=9884) TOTAL COUNTED (BEAKER) (test qcds=5050) 100 WBC MORPHOLOGY (BEAKER) (test yimi=940) Normal LARGE PLT(BEAKER) (test ppou=6374) Present POLYCHROMATOPHILLIC RBCS(BEAKER) (test pscz=382) 1+ few ANISOCYTOSIS (BEAKER) (test jafp=823) 2+ moderate MICROCYTES (BEAKER) (test tobd=899) 2+ moderate POIKILOCYTES (BEAKER) (test lyka=055) 1+ few SCHISTOCYTES (BEAKER) (test ygal=722) 1+ few ELLIPTOCYTES (BEAKER) (test xnlx=779) 1+ few OVALOCYTES (BEAKER) (test iobe=161) 1+ few BASOPHILIC STIPPLING (BEAKER) (test nhlx=277) Present PLATELET CONCENTRATION (CELLAVISION)(BEAKER) Adequate (test paah=6562) Preparation Supervisor Freezing ID - Jaren comments: Slide comments:POCT-GLUCOSE [id number] 08: 02:00 Test Item Value Reference Range Comments POC-GLUCOSE METER (BEAKER) 108 mg/dL 70-110 : TESTED AT [facility] [address] [facility] (test jzqx=7805) [facility], [address]: Preparation Supervisor Freezing/Tool And Die Manager [id number] for SAMIRA GEE BASIC METABOLIC [id number] 07:44:00 Test Item Value Reference Range Comments SODIUM (BEAKER) (test 138 meq/L 136-145 yvzp=238) POTASSIUM (BEAKER) (test 4.3 meq/L 3.5-5.1 sdod=839) CHLORIDE (BEAKER) (test 102 meq/L 98-107 rbei=467) CO2 (BEAKER) (test 28 meq/L 22-29 asol=373) BLOOD UREA NITROGEN 56 mg/dL 7-21 (BEAKER) (test efbs=139) CREATININE (BEAKER) (test 7.05 mg/dL 0.57-1.25 pmtw=899) GLUCOSE RANDOM (BEAKER) 118 mg/dL 70-105 (test tmso=623) CALCIUM (BEAKER) (test 9.1 mg/dL 8.4-10.2 oejx=702) EGFR (BEAKER) (test 8 mL/min/1.73 sq m ESTIMATED GFR IS NOT uhbl=8836) ACCURATE CREATININE CLEARANCE IN PREDICTING GLOMERULAR FILTRATION RATE. ESTIMATED GFR IS NOT APPLICABLE FOR DIALYSIS PATIENTS. Preparation Supervisor Freezing ID - GERRY MBASIC METABOLIC [id number] 07:44:00 Test Item Value Reference Range Comments SODIUM (BEAKER) (test 137 meq/L 136-145 vsmj=724) POTASSIUM (BEAKER) (test 4.3 meq/L 3.5-5.1 ipqh=002) CHLORIDE (BEAKER) (test 101 meq/L 98-107 njgd=827) CO2 (BEAKER) (test 28 meq/L 22-29 lruy=113) BLOOD UREA NITROGEN 55 mg/dL 7-21 (BEAKER) (test rezw=342) CREATININE (BEAKER) (test 7.01 mg/dL 0.57-1.25 tkbl=241) GLUCOSE RANDOM (BEAKER) 118 mg/dL 70-105 (test dhiz=477) CALCIUM (BEAKER) (test 9.1 mg/dL 8.4-10.2 dsvl=290) EGFR (BEAKER) (test 8 mL/min/1.73 sq m ESTIMATED GFR IS NOT jidy=2375) ACCURATE CREATININE CLEARANCE IN PREDICTING GLOMERULAR FILTRATION RATE. ESTIMATED GFR IS NOT APPLICABLE FOR DIALYSIS PATIENTS. Preparation Supervisor Freezing ID - GERRY [id number] 07:42:00 Test Item Value Reference Range Comments MAGNESIUM (BEAKER) (test kimh=641) 2.5 mg/dL 1.6-2.6 Preparation Supervisor Freezing ID - GERRY MPOCT-GLUCOSE [id number] 21:32:00 Test Item Value Reference Range Comments POC-GLUCOSE METER (BEAKER) 196 mg/dL 70-110 : TESTED AT [facility] [address] [facility] (test wgyn=7125) [facility], [address]: Preparation Supervisor Freezing/Tool And Die Manager [id number] for NAIMA ANDRADE POCT-GLUCOSE [id number] 16:57:00 Test Item Value Reference Range Comments POC-GLUCOSE METER (BEAKER) 138 mg/dL 70-110 : TESTED AT [facility] [address] [facility] (test pike=0529) [facility], [address]: Preparation Supervisor Freezing/Tool And Die Manager [id number] for SHAI ARRIETA POCT-GLUCOSE [id number] 12:53:00 Test Item Value Reference Range Comments POC-GLUCOSE METER (BEAKER) 229 mg/dL 70-110 : TESTED AT [facility] [address] [facility] (test rxsz=5397) [facility], [address]: Preparation Supervisor Freezing/Tool And Die Manager [id number]=[id number] for LENNOX AVILA POCT-GLUCOSE [id number] 07:48:00 Test Item Value Reference Range Comments POC-GLUCOSE METER (BEAKER) 128 mg/dL 70-110 : TESTED AT [facility] [address] [facility] (test hqkj=7174) [facility], [address]: Preparation Supervisor Freezing/Tool And Die Manager [id number] for LENNOX AVILA CBC W/PLT COUNT & AUTO [id number] 07:38:00 Test Item Value Reference Range Comments WHITE BLOOD CELL COUNT (BEAKER) (test zxzv=081) 5.7 K/ L 3.5-10.5 RED BLOOD CELL COUNT (BEAKER) (test kvfj=510) 2.73 M/ L 4.63-6.08 HEMOGLOBIN (BEAKER) (test ygmo=836) 8.4 GM/DL 13.7-17.5 HEMATOCRIT (BEAKER) (test pbmp=796) 26.5 % 40.1-51.0 MEAN CORPUSCULAR VOLUME (BEAKER) (test qldc=344) 97.1 fL 79.0-92.2 MEAN CORPUSCULAR HEMOGLOBIN (BEAKER) (test 30.8 pg 25.7-32.2 aejj=032) MEAN CORPUSCULAR HEMOGLOBIN CONC (BEAKER) (test 31.7 GM/DL 32.3-36.5 vqjf=318) RED CELL DISTRIBUTION WIDTH (BEAKER) (test 15.9 % 11.6-14.4 urdd=369) PLATELET COUNT (BEAKER) (test wrec=128) 224 K/CU MM 150-450 MEAN PLATELET VOLUME (BEAKER) (test isql=991) 11.3 fL 9.4-12.4 NUCLEATED RED BLOOD CELLS (BEAKER) (test 0 /100 WBC 0-0 qmtr=327) (CELLAVISION MANUAL DIFF)2019-11-03 07:38:00 Test Item Value Reference Range Comments NEUTROPHILS - REL (CELLAVISION)(BEAKER) (test 65 % lhuu=5388) LYMPHOCYTES - REL (CELLAVISION)(BEAKER) (test 16 % rapb=5713) MONOCYTES - REL (CELLAVISION)(BEAKER) (test 12 % kfsr=8298) EOSINOPHILS - REL (CELLAVISION)(BEAKER) (test 1 % krtt=6302) MYELOCYTES - REL (CELLAVISION)(BEAKER) (test 3 % 0-0 qcnr=7694) BANDS - REL (CELLAVISION)(BEAKER) (test fyqe=7785) 2 % 0-10 ATYPICAL LYMPHOCYTES - REL (CELLAVISION)(BEAKER) 1 % 0-0 (test oecd=2960) NEUTROPHILS - ABS (CELLAVISION)(BEAKER) (test 3.71 K/ul 1.78-5.38 peqh=9237) LYMPHOCYTES - ABS (CELLAVISION)(BEAKER) (test 0.91 K/ul 1.32-3.57 ahtl=0432) MONOCYTES - ABS (CELLAVISION)(BEAKER) (test 0.68 K/uL 0.30-0.82 hmcw=2964) EOSINOPHILS - ABS (CELLAVISION)(BEAKER) (test 0.06 K/uL 0.04-0.54 pxcp=0015) MYELOCYTES-ABS (CELLAVISION)(BEAKER) (test 0.17 K/uL 0.00-0.00 wctu=1932) BANDS - ABS (CELLAVISION)(BEAKER) (test edqv=1237) 0.11 K/uL 0.00-0.80 ATYPICAL LYMPHOCYTES - ABS (CELLAVISION)(BEAKER) 0.06 K/uL 0.00-0.00 (test yydj=4532) TOTAL COUNTED (BEAKER) (test nbvu=2312) 100 RBC MORPHOLOGY (BEAKER) (test vyru=299) Normal WBC MORPHOLOGY (BEAKER) (test cqih=104) Normal GIANT PLATELETS (BEAKER) (test pbjr=186) Present ARTIFACT (CELLAVISION)(BEAKER) (test ddsc=7631) Present PLATELET CONCENTRATION (CELLAVISION)(BEAKER) (test Adequate ulml=0789) Preparation Supervisor Freezing ID - Rachael Bello comments: Slide comments:RAD, CHEST, 1 VIEW, NON [id number] 06:47:00Reason for exam:->s/p CABGShould this be performed at the bedside?->YesFINAL REPORT RAD, CHEST, 1 VIEW, NON DEPT INDICATION: s/p CABG COMPARISON: 10hours prior. FINDINGS: Portable frontal view of the chest. IMPRESSION: Support Lines: No significant change. Lungs and pleura: Airspace and pleural opacities , greater on the left, are unchanged. Nopneumothorax.Heart and mediastinum: Stable contours. Additional findings: None. Signed: Ladarius Kim MDReport Verified Date/Time: 2019 06:47:42 Electronically signed by: LADARIUS KIM MD on 2019 06:47 AMCALCIUM, [id number] 06:20:00 Test Item Value Reference Range Comments CALCIUM IONIZED (BEAKER) (test fiaa=145) 1.19 mmol/L 1.12-1.27 PH, BLOOD (BEAKER) (test peud=1760) 7.34 BASIC METABOLIC [id number] 04:59:00 Test Item Value Reference Range Comments SODIUM (BEAKER) (test 139 meq/L 136-145 sdqc=155) POTASSIUM (BEAKER) (test 4.0 meq/L 3.5-5.1 zdsy=835) CHLORIDE (BEAKER) (test 102 meq/L 98-107 kzxg=810) CO2 (BEAKER) (test 27 meq/L 22-29 xjrq=978) BLOOD UREA NITROGEN 37 mg/dL 7-21 (BEAKER) (test eqiv=053) CREATININE (BEAKER) (test 4.80 mg/dL 0.57-1.25 rtyb=687) GLUCOSE RANDOM (BEAKER) 116 mg/dL 70-105 (test mswd=553) CALCIUM (BEAKER) (test 10.1 mg/dL 8.4-10.2 vspx=489) EGFR (BEAKER) (test 12 mL/min/1.73 sq m ESTIMATED GFR IS NOT awpq=3047) ACCURATE CREATININE CLEARANCE IN PREDICTING GLOMERULAR FILTRATION RATE. ESTIMATED GFR IS NOT APPLICABLE FOR DIALYSIS PATIENTS. Preparation Supervisor Freezing ID - GERRY [id number] 04:57:00 Test Item Value Reference Range Comments PHOSPHORUS (BEAKER) (test irsw=401) 3.1 mg/dL 2.3-4.7 Preparation Supervisor Freezing ID - GERRY [id number] 04:57:00 Test Item Value Reference Range Comments MAGNESIUM (BEAKER) (test sgfl=459) 2.2 mg/dL 1.6-2.6 Preparation Supervisor Freezing ID - GERRY MPOCT-GLUCOSE [id number] 22:34:00 Test Item Value Reference Range Comments POC-GLUCOSE METER (BEAKER) 202 mg/dL 70-110 : TESTED AT [facility] [address] [facility] (test luvw=0522) [facility], [id number]: Preparation Supervisor Freezing/Tool And Die Manager MD=[id number] for ANJALI [place] BASIC METABOLIC [id number] 21:31:00 Test Item Value Reference Range Comments SODIUM (BEAKER) (test 134 meq/L 136-145 hodk=433) POTASSIUM (BEAKER) (test 4.4 meq/L 3.5-5.1 yhed=237) CHLORIDE (BEAKER) (test 100 meq/L 98-107 vlgk=786) CO2 (BEAKER) (test 23 meq/L 22-29 zsne=721) BLOOD UREA NITROGEN 62 mg/dL 7-21 (BEAKER) (test fvxc=375) CREATININE (BEAKER) (test 8.15 mg/dL 0.57-1.25 ntmv=381) GLUCOSE RANDOM (BEAKER) 195 mg/dL 70-105 (test hbfo=794) CALCIUM (BEAKER) (test 9.1 mg/dL 8.4-10.2 anyu=653) EGFR (BEAKER) (test 7 mL/min/1.73 sq m ESTIMATED GFR IS NOT yhbx=0835) ACCURATE CREATININE CLEARANCE IN PREDICTING GLOMERULAR FILTRATION RATE. ESTIMATED GFR IS NOT APPLICABLE FOR DIALYSIS PATIENTS. Preparation Supervisor Freezing ID - [id number] 21:30:00 Test Item Value Reference Range Comments PHOSPHORUS (BEAKER) (test ukld=494) 4.5 mg/dL 2.3-4.7 Preparation Supervisor Freezing ID - [id number] 21:30:00 Test Item Value Reference Range Comments MAGNESIUM (BEAKER) (test criu=678) 2.6 mg/dL 1.6-2.6 Preparation Supervisor Freezing ID - JASSOD GAS, [id number] 21:10:00 Test Item Value Reference Range Comments PH ARTERIAL (BEAKER) (test ythe=318) 7.35 7.35-7.45 PCO2 ARTERIAL (BEAKER) (test hvhc=017) 50 mmHg 35-45 PO2 ARTERIAL (BEAKER) (test ppwu=853) 71 mmHg 80-90 O2 SATURATION ARTERIAL (BEAKER) (test situ=118) 93.4 % 96.0-97.0 HCO3 ARTERIAL (BEAKER) (test jblx=437) 27 mmol/L 21-29 BASE EXCESS ARTERIAL (BEAKER) (test nlpo=584) 0.8 mmol/L -2.0-3.0 PATIENT TEMPERATURE (BEAKER) (test nrqg=2929) 37.0 C FIO2 (BEAKER) (test einq=2159) 36.0 % HEMOGLOBIN AND [id number] 21:03:00 Test Item Value Reference Range Comments HEMOGLOBIN (BEAKER) (test peqo=593) 8.1 GM/DL 13.7-17.5 HEMATOCRIT (BEAKER) (test bnyy=539) 25.9 % 40.1-51.0 Preparation Supervisor Freezing ID - 6000RAD, CHEST, 1 VIEW, NON [id number] 20:50:00Reason for exam :->CoughShould this be performed at the bedside?->YesFINAL REPORT RAD, CHEST, 1 VIEW, NON DEPT INDICATION: Cough COMPARISON: 16 hours prior FINDINGS: Portable frontal view of the chest. IMPRESSION: Support Lines: No significant change. Lungs and pleura: Airspace and pleural opacities are unchanged. No pneumothorax.Heart and mediastinum: Stable contours. Additional findings: None. Signed: Ladarius Kim MDReport Verified Date/Time: 11/02/2019 20:50:54 POCT-GLUCOSE [id number] 17:17:00 Test Item Value Reference Range Comments POC-GLUCOSE METER (BEAKER) 127 mg/dL 70-110 : TESTED AT [facility] [address] (test efuf=7726) [facility], [address]: Preparation Supervisor Freezing/Tool And Die Manager [id number] for JONATHAN MACHADO POCT-GLUCOSE [id number] 12:05:00 Test Item Value Reference Range Comments POC-GLUCOSE METER (BEAKER) 208 mg/dL 70-110 : TESTED AT [facility] [address] [facility] (test qzci=2298) [facility], [address]: Preparation Supervisor Freezing/Tool And Die Manager [id number] for JONATHAN MACHADO POCT-GLUCOSE [id number] 07:38:00 Test Item Value Reference Range Comments POC-GLUCOSE METER (BEAKER) 104 mg/dL 70-110 : TESTED AT [facility] [address] [facility] (test laqx=7241) [facility], [address]: Preparation Supervisor Freezing/Tool And Die Manager [id number] for JONATHAN MACHADO RAD, CHEST, 1 VIEW, NON [id number] 06:31:00Reason for exam:->Chest congestionShould this be performed at the bedside?->YesFINAL REPORT RAD, CHEST, 1 VIEW, NON DEPT INDICATION: Chest congestion COMPARISON: Prior day's exam FINDINGS: Portable frontal view of the chest. IMPRESSION: Support Lines: Nosignificant change. Lungs and pleura: Airspace and pleural opacities are unchanged. No pneumothorax.Heart and mediastinum: Stable contours. Additional findings: None. Signed: Ladarius Kim MDReport Verified Date/Time: 11/02/2019 06:31:02 BASIC METABOLIC [id number] 03:20:00 Test Item Value Reference Range Comments SODIUM (BEAKER) (test 138 meq/L 136-145 krzc=719) POTASSIUM (BEAKER) (test 4.4 meq/L 3.5-5.1 moka=676) CHLORIDE (BEAKER) (test 103 meq/L 98-107 pgun=029) CO2 (BEAKER) (test 26 meq/L 22-29 qyht=101) BLOOD UREA NITROGEN 50 mg/dL 7-21 (BEAKER) (test kvox=160) CREATININE (BEAKER) (test 6.85 mg/dL 0.57-1.25 adys=914) GLUCOSE RANDOM (BEAKER) 136 mg/dL 70-105 (test hbmw=529) CALCIUM (BEAKER) (test 9.1 mg/dL 8.4-10.2 biix=551) EGFR (BEAKER) (test 8 mL/min/1.73 sq m ESTIMATED GFR IS NOT qdmq=8102) ACCURATE CREATININE CLEARANCE IN PREDICTING GLOMERULAR FILTRATION RATE. ESTIMATED GFR IS NOT APPLICABLE FOR DIALYSIS PATIENTS. Preparation Supervisor Freezing ID - GERRY [id number] 03:15:00 Test Item Value Reference Range Comments PHOSPHORUS (BEAKER) (test ikml=981) 3.9 mg/dL 2.3-4.7 Preparation Supervisor Freezing ID - GERRY [id number] 03:15:00 Test Item Value Reference Range Comments MAGNESIUM (BEAKER) (test uyvt=243) 2.5 mg/dL 1.6-2.6 Preparation Supervisor Freezing ID - GERRY [facility] W/PLT COUNT & AUTO [id number] 03:13:00 Test Item Value Reference Range Comments WHITE BLOOD CELL COUNT (BEAKER) (test esdy=383) 5.4 K/ L 3.5-10.5 RED BLOOD CELL COUNT (BEAKER) (test cdzl=098) 2.28 M/ L 4.63-6.08 HEMOGLOBIN (BEAKER) (test lxhi=396) 7.0 GM/DL 13.7-17.5 HEMATOCRIT (BEAKER) (test gzvh=928) 22.9 % 40.1-51.0 MEAN CORPUSCULAR VOLUME (BEAKER) (test lgap=362) 100.4 fL 79.0-92.2 MEAN CORPUSCULAR HEMOGLOBIN (BEAKER) (test 30.7 pg 25.7-32.2 xmkg=359) MEAN CORPUSCULAR HEMOGLOBIN CONC (BEAKER) (test 30.6 GM/DL 32.3-36.5 mdux=958) RED CELL DISTRIBUTION WIDTH (BEAKER) (test 15.4 % 11.6-14.4 zwng=473) PLATELET COUNT (BEAKER) (test edhe=416) 166 K/CU MM 150-450 MEAN PLATELET VOLUME (BEAKER) (test apqh=082) 11.3 fL 9.4-12.4 NUCLEATED RED BLOOD CELLS (BEAKER) (test 0 /100 WBC 0-0 qmig=291) NEUTROPHILS RELATIVE PERCENT (BEAKER) (test 69 % bkie=814) LYMPHOCYTES RELATIVE PERCENT (BEAKER) (test 14 % nfxw=249) MONOCYTES RELATIVE PERCENT (BEAKER) (test 11 % ryqj=841) EOSINOPHILS RELATIVE PERCENT (BEAKER) (test 3 % kbwo=549) BASOPHILS RELATIVE PERCENT (BEAKER) (test 1 % mbtc=188) NEUTROPHILS ABSOLUTE COUNT (BEAKER) (test 3.73 K/ L 1.78-5.38 sawv=533) LYMPHOCYTES ABSOLUTE COUNT (BEAKER) (test 0.77 K/ L 1.32-3.57 ggjj=418) MONOCYTES ABSOLUTE COUNT (BEAKER) (test 0.60 K/ L 0.30-0.82 ctet=423) EOSINOPHILS ABSOLUTE COUNT (BEAKER) (test 0.16 K/ L 0.04-0.54 qcpd=907) BASOPHILS ABSOLUTE COUNT (BEAKER) (test 0.05 K/ L 0.01-0.08 lxcu=486) IMMATURE GRANULOCYTES-RELATIVE PERCENT (BEAKER) 2 % 0-1 (test plnv=0858) CALCIUM, [id number] 02:49:00 Test Item Value Reference Range Comments CALCIUM IONIZED (BEAKER) (test cphs=048) 1.16 mmol/L 1.12-1.27 PH, BLOOD (BEAKER) (test mkhl=1200) 7.39 POCT-GLUCOSE [id number] 23:12:00 Test Item Value Reference Range Comments POC-GLUCOSE METER (BEAKER) 171 mg/dL 70-110 : TESTED AT [facility] [address] [facility] (test jovq=4576) [facility], [address]: Preparation Supervisor Freezing/Tool And Die Manager [id number] for [place], ANJALI POCT-GLUCOSE [id number] 17:23:00 Test Item Value Reference Range Comments POC-GLUCOSE METER (BEAKER) 96 mg/dL 70-110 : TESTED AT [place] [id number] [facility] (test vhvz=3236) [facility], [address]: Preparation Supervisor Freezing/Tool And Die Manager [id number] for JONATHAN MACHADO BASIC METABOLIC [id number] 17:18:00 Test Item Value Reference Range Comments SODIUM (BEAKER) (test 139 meq/L 136-145 awgb=731) POTASSIUM (BEAKER) (test 4.0 meq/L 3.5-5.1 arrb=279) CHLORIDE (BEAKER) (test 103 meq/L 98-107 gfim=157) CO2 (BEAKER) (test 28 meq/L 22-29 ylqa=017) BLOOD UREA NITROGEN 40 mg/dL 7-21 (BEAKER) (test tfyw=568) CREATININE (BEAKER) (test 5.46 mg/dL 0.57-1.25 iivl=485) GLUCOSE RANDOM (BEAKER) 110 mg/dL 70-105 (test hmjs=388) CALCIUM (BEAKER) (test 9.5 mg/dL 8.4-10.2 uxym=695) EGFR (BEAKER) (test 10 mL/min/1.73 sq m ESTIMATED GFR IS NOT hzys=6618) ACCURATE CREATININE CLEARANCE IN PREDICTING GLOMERULAR FILTRATION RATE. ESTIMATED GFR IS NOT APPLICABLE FOR DIALYSIS PATIENTS. Preparation Supervisor Freezing ID - [id number] 17:17:00 Test Item Value Reference Range Comments PHOSPHORUS (BEAKER) (test kalj=901) 3.4 mg/dL 2.3-4.7 Preparation Supervisor Freezing ID - [id number] 17:17:00 Test Item Value Reference Range Comments MAGNESIUM (BEAKER) (test jnqd=374) 2.4 mg/dL 1.6-2.6 Preparation Supervisor Freezing ID - BSBASIC METABOLIC [id number] 13:42:00 Test Item Value Reference Range Comments SODIUM (BEAKER) (test 139 meq/L 136-145 fhqg=191) POTASSIUM (BEAKER) (test 4.4 meq/L 3.5-5.1 jddm=206) CHLORIDE (BEAKER) (test 103 meq/L 98-107 xbzq=152) CO2 (BEAKER) (test 28 meq/L 22-29 nqaz=689) BLOOD UREA NITROGEN 49 mg/dL 7-21 (BEAKER) (test blkr=507) CREATININE (BEAKER) (test 6.94 mg/dL 0.57-1.25 zngm=409) GLUCOSE RANDOM (BEAKER) 149 mg/dL 70-105 (test trlw=106) CALCIUM (BEAKER) (test 9.1 mg/dL 8.4-10.2 rufz=083) EGFR (BEAKER) (test 8 mL/min/1.73 sq m ESTIMATED GFR IS NOT xqow=3877) ACCURATE CREATININE CLEARANCE IN PREDICTING GLOMERULAR FILTRATION RATE. ESTIMATED GFR IS NOT APPLICABLE FOR DIALYSIS PATIENTS. Preparation Supervisor Freezing ID - FARIDEHAYA [id number] 13:40:00 Test Item Value Reference Range Comments PHOSPHORUS (BEAKER) (test fwqz=788) 3.9 mg/dL 2.3-4.7 Preparation Supervisor Freezing ID - LILY [id number] 13:40:00 Test Item Value Reference Range Comments MAGNESIUM (BEAKER) (test yjiu=642) 2.6 mg/dL 1.6-2.6 Preparation Supervisor Freezing ID - LILY LCALCIUM, [id number] 12:49:00 Test Item Value Reference Range Comments CALCIUM IONIZED (BEAKER) (test nnxl=264) 1.13 mmol/L 1.12-1.27 PH, BLOOD (BEAKER) (test jzut=4130) 7.38 POCT-GLUCOSE [id number] 12:14:00 Test Item Value Reference Range Comments POC-GLUCOSE METER (BEAKER) 147 mg/dL 70-110 : TESTED AT [address] (test tyvi=6609) [facility], [address]: Preparation Supervisor Freezing/Tool And Die Manager [id number] for JONATHAN MACHADO SURGICALLY OBTAINED CULTURE + GRAM [id number] 10:40:00 Test Item Value Reference Range Comments CULTURE (BEAKER) (test fjzf=9104) No growth GRAM STAIN RESULT (BEAKER) (test <1+ White blood cells seen qlte=3676) GRAM STAIN RESULT (BEAKER) (test No organisms seen esqt=13870) POCT-GLUCOSE [id number] 07:39:00 Test Item Value Reference Range Comments POC-GLUCOSE METER (BEAKER) 134 mg/dL 70-110 : TESTED AT [address] (test wyhm=9160) [facility], [address]: Preparation Supervisor Freezing/Tool And Die Manager [id number] for JONATHAN MACHADO BLOOD GAS, [id number] 05:24:00 Test Item Value Reference Range Comments PH ARTERIAL (BEAKER) (test anka=031) 7.37 7.35-7.45 PCO2 ARTERIAL (BEAKER) (test ltfo=606) 48 mmHg 35-45 PO2 ARTERIAL (BEAKER) (test cfrm=859) 56 mmHg 80-90 O2 SATURATION ARTERIAL (BEAKER) (test swbm=410) 87.2 % 96.0-97.0 HCO3 ARTERIAL (BEAKER) (test hojh=405) 27 mmol/L 21-29 BASE EXCESS ARTERIAL (BEAKER) (test siby=148) 1.3 mmol/L -2.0-3.0 PATIENT TEMPERATURE (BEAKER) (test wsfp=5622) 37.5 C FIO2 (BEAKER) (test zsbp=0290) 40.0 % BASIC METABOLIC [id number] 05:23:00 Test Item Value Reference Range Comments SODIUM (BEAKER) (test 140 meq/L 136-145 pcby=449) POTASSIUM (BEAKER) (test 4.7 meq/L 3.5-5.1 vuyy=642) CHLORIDE (BEAKER) (test 104 meq/L 98-107 awho=592) CO2 (BEAKER) (test 25 meq/L 22-29 vncz=316) BLOOD UREA NITROGEN 51 mg/dL 7-21 (BEAKER) (test venp=291) CREATININE (BEAKER) (test 7.86 mg/dL 0.57-1.25 mdpa=962) GLUCOSE RANDOM (BEAKER) 124 mg/dL 70-105 (test umwb=269) CALCIUM (BEAKER) (test 9.3 mg/dL 8.4-10.2 ubew=128) EGFR (BEAKER) (test 7 mL/min/1.73 sq m ESTIMATED GFR IS NOT ulvm=4468) ACCURATE CREATININE CLEARANCE IN PREDICTING GLOMERULAR FILTRATION RATE. ESTIMATED GFR IS NOT APPLICABLE FOR DIALYSIS PATIENTS. Preparation Supervisor Freezing ID - LILY [id number] 05:18:00 Test Item Value Reference Range Comments PHOSPHORUS (BEAKER) (test yenf=231) 4.8 mg/dL 2.3-4.7 Preparation Supervisor Freezing ID - LILY [id number] 05:18:00 Test Item Value Reference Range Comments MAGNESIUM (BEAKER) (test zkuz=614) 2.8 mg/dL 1.6-2.6 Preparation Supervisor Freezing ID - LILY LCBC (HEMOGRAM ONLY)2019-11-01 04:59:00 Test Item Value Reference Range Comments WHITE BLOOD CELL COUNT (BEAKER) (test hslz=675) 7.0 K/ L 3.5-10.5 RED BLOOD CELL COUNT (BEAKER) (test onsy=555) 2.35 M/ L 4.63-6.08 HEMOGLOBIN (BEAKER) (test ulzp=481) 7.4 GM/DL 13.7-17.5 HEMATOCRIT (BEAKER) (test qnch=924) 23.8 % 40.1-51.0 MEAN CORPUSCULAR VOLUME (BEAKER) (test aazz=103) 101.3 fL 79.0-92.2 MEAN CORPUSCULAR HEMOGLOBIN (BEAKER) (test 31.5 pg 25.7-32.2 cayi=498) MEAN CORPUSCULAR HEMOGLOBIN CONC (BEAKER) (test 31.1 GM/DL 32.3-36.5 zbfo=323) RED CELL DISTRIBUTION WIDTH (BEAKER) (test 16.5 % 11.6-14.4 cxhi=609) PLATELET COUNT (BEAKER) (test vjgg=105) 138 K/CU MM 150-450 MEAN PLATELET VOLUME (BEAKER) (test skpl=012) 12.2 fL 9.4-12.4 NUCLEATED RED BLOOD CELLS (BEAKER) (test 0 /100 WBC 0-0 omxm=739) RAD, CHEST, 1 VIEW, NON [id number] 04:16:00Reason for exam:->post cardiac surgeryFINAL REPORT RAD, CHEST, 1 VIEW, NON DEPT INDICATION: post cardiac surgery COMPARISON: Prior day's exam FINDINGS: Portable frontal view of the chest. IMPRESSION: Support Lines: Interval removal of the previously seen mediastinal drain and left-sided chest tube. Otherwise unchanged support apparatus. Lungs and pleura: Increased left retrocardiac airspace opacity favored represent partial left lower lobe collapse. Persistent small bilateral pleural effusions. No pneumothorax.Heart and mediastinum: Stable contours. Stable surgical changes.Additional findings: None. Signed: Sigrid [facility] Verified Date/Time: 11/01/2019 04:16 :36 BASIC METABOLIC [id number] 23:53:00 Test Item Value Reference Range Comments SODIUM (BEAKER) (test 140 meq/L 136-145 cvtq=440) POTASSIUM (BEAKER) (test 4.6 meq/L 3.5-5.1 dhtk=065) CHLORIDE (BEAKER) (test 104 meq/L 98-107 ajzq=429) CO2 (BEAKER) (test 25 meq/L 22-29 kcvi=010) BLOOD UREA NITROGEN 47 mg/dL 7-21 (BEAKER) (test lbqy=675) CREATININE (BEAKER) (test 7.49 mg/dL 0.57-1.25 dafy=273) GLUCOSE RANDOM (BEAKER) 144 mg/dL 70-105 (test twtq=709) CALCIUM (BEAKER) (test 9.2 mg/dL 8.4-10.2 ajst=618) EGFR (BEAKER) (test 7 mL/min/1.73 sq m ESTIMATED GFR IS NOT mavt=9894) ACCURATE CREATININE CLEARANCE IN PREDICTING GLOMERULAR FILTRATION RATE. ESTIMATED GFR IS NOT APPLICABLE FOR DIALYSIS PATIENTS. Preparation Supervisor Freezing ID - LILY [id number] 23:26:00 Test Item Value Reference Range Comments POTASSIUM (BEAKER) (test wlku=132) 4.6 meq/L 3.5-5.1 Preparation Supervisor Freezing ID - LILY [id number] 23:26:00 Test Item Value Reference Range Comments MAGNESIUM (BEAKER) (test mhnm=394) 2.7 mg/dL 1.6-2.6 Preparation Supervisor Freezing ID - LILY [id number] 23:26:00 Test Item Value Reference Range Comments PHOSPHORUS (BEAKER) (test pfwl=690) 4.6 mg/dL 2.3-4.7 Preparation Supervisor Freezing ID - LILY [id number] 23:26:00 Test Item Value Reference Range Comments GLUCOSE RANDOM (BEAKER) (test gmmp=397) 144 mg/dL 70-105 Preparation Supervisor Freezing ID - LILY LHEMOGLOBIN AND [id number] 23:06:00 Test Item Value Reference Range Comments HEMOGLOBIN (BEAKER) (test miuc=748) 7.2 GM/DL 13.7-17.5 HEMATOCRIT (BEAKER) (test cqid=325) 22.9 % 40.1-51.0 Preparation Supervisor Freezing ID - 6000POCT-GLUCOSE [id number] 18:25:00 Test Item Value Reference Range Comments POC-GLUCOSE METER (BEAKER) 143 mg/dL 70-110 : TESTED AT [facility] [address] [facility] (test iwqw=7281) [facility], [address]: Preparation Supervisor Freezing/Tool And Die Manager [id number] for MALACHI ANAYA [id number] 16:52:00 Test Item Value Reference Range Comments POTASSIUM (BEAKER) (test gqab=882) 4.8 meq/L 3.5-5.1 Preparation Supervisor Freezing ID - ELEAZAR EPOCT-GLUCOSE [id number] 12:46:00 Test Item Value Reference Range Comments POC-GLUCOSE METER (BEAKER) 142 mg/dL 70-110 : TESTED AT [address] (test mmqf=6908) [facility], [address]: Preparation Supervisor Freezing/Tool And Die Manager [id number] for MALACHI ANAAY [id number] 10:51:00 Test Item Value Reference Range Comments POTASSIUM (BEAKER) (test ymza=654) 4.7 meq/L 3.5-5.1 Preparation Supervisor Freezing ID - SALONI [id number] 10:51:00 Test Item Value Reference Range Comments PHOSPHORUS (BEAKER) (test vnol=068) 4.8 mg/dL 2.3-4.7 Preparation Supervisor Freezing ID - SALONI [id number] 10:51:00 Test Item Value Reference Range Comments MAGNESIUM (BEAKER) (test whii=249) 2.6 mg/dL 1.6-2.6 Preparation Supervisor Freezing ID - SALONI FPOCT-GLUCOSE [id number] 09:54:00 Test Item Value Reference Range Comments POC-GLUCOSE METER (BEAKER) 164 mg/dL 70-110 : TESTED AT [address] (test qhjt=4000) [facility], [address]: Preparation Supervisor Freezing/Tool And Die Manager [id number] for KORYSeptember POCT-GLUCOSE [id number] 09:27:00 Test Item Value Reference Range Comments POC-GLUCOSE METER (BEAKER) 163 mg/dL 70-110 : TESTED AT [address] (test szsn=6520) [facility], [address]: Preparation Supervisor Freezing/Tool And Die Manager [id number] for DAVID GIBBONS RAD, CHEST, 1 VIEW, NON [id number] 07:53:00Reason for exam:->post cardiac surgeryFINAL REPORT RAD, CHEST, 1 VIEW, NON DEPT INDICATION: post cardiac surgery COMPARISON: Prior day's exam FINDINGS: Portable frontal view of the chest. IMPRESSION: Limited by underpenetration.Support Lines: Stable. Lungs and pleura: Unchanged interstitial and pleural opacities. No pneumothorax.Heart and mediastinum: Stable contours. Stable surgical changes.Additional findings: None. Signed: JR Gracia Robert MDReport Verified Date/Time: 10/31/2019 07:53:55 Reading Location: [facility] Radiology Reading Room BASIC METABOLIC [id number] 04:29:00 Test Item Value Reference Range Comments SODIUM (BEAKER) (test 139 meq/L 136-145 jmkp=683) POTASSIUM (BEAKER) (test 4.8 meq/L 3.5-5.1 etes=732) CHLORIDE (BEAKER) (test 104 meq/L 98-107 tpvp=195) CO2 (BEAKER) (test 24 meq/L 22-29 mdci=993) BLOOD UREA NITROGEN 31 mg/dL 7-21 (BEAKER) (test bqtt=486) CREATININE (BEAKER) (test 6.07 mg/dL 0.57-1.25 grky=575) GLUCOSE RANDOM (BEAKER) 177 mg/dL 70-105 (test xglc=347) CALCIUM (BEAKER) (test 9.4 mg/dL 8.4-10.2 fcme=960) EGFR (BEAKER) (test 9 mL/min/1.73 sq m ESTIMATED GFR IS NOT rmua=6053) ACCURATE CREATININE CLEARANCE IN PREDICTING GLOMERULAR FILTRATION RATE. ESTIMATED GFR IS NOT APPLICABLE FOR DIALYSIS PATIENTS. Preparation Supervisor Freezing ID - LILY [id number] 04:26:00 Test Item Value Reference Range Comments PHOSPHORUS (BEAKER) (test anlc=198) 5.0 mg/dL 2.3-4.7 Preparation Supervisor Freezing ID - LILY [id number] 04:26:00 Test Item Value Reference Range Comments MAGNESIUM (BEAKER) (test lwuq=691) 2.5 mg/dL 1.6-2.6 Preparation Supervisor Freezing ID - LILY LPT/[id number] 04:01:00 Test Item Value Reference Range Comments PROTIME (BEAKER) (test vdly=076) 16.0 seconds 11.9-14.2 INR (BEAKER) (test reho=246) 1.3 <=5.9 PARTIAL THROMBOPLASTIN TIME (BEAKER) (test 55.3 seconds 22.5-36.0 fqhd=152) Effective 01/30/2019: PT Reference Range ChangeNew: 11.9-14.2 Previous: 11.7- 14.7RECOMMENDED COUMADIN/WARFARIN INR THERAPY RANGESSTANDARD DOSE: 2.0-3.0 Includes: PROPHYLAXIS for venous thrombosis, systemic embolization; TREATMENT for venous thrombosis and/or pulmonary embolus.HIGH RISK: Target INR is2.5-3.5 for patients wiht mechanical heart valves.PROTHROMBIN TIME/[id number] 04:00: 00 Test Item Value Reference Range Comments PROTIME (BEAKER) (test yqrz=648) 16.0 seconds 11.9-14.2 INR (BEAKER) (test fdvl=298) 1.3 <=5.9 Effective 01/30/2019: PT Reference Range ChangeNew: 11.9-14.2 Previous: 11.7- 14.7RECOMMENDED COUMADIN/WARFARIN INR THERAPY RANGESSTANDARD DOSE: 2.0-3.0 Includes: PROPHYLAXIS for venous thrombosis, systemic embolization; TREATMENT for venous thrombosis and/or pulmonary embolus.HIGH RISK: Target INR is2.5-3.5 for patients wiht mechanical heart valves.CBC (HEMOGRAM ONLY)2019-10-31 03:59:00 Test Item Value Reference Range Comments WHITE BLOOD CELL COUNT (BEAKER) (test jeid=142) 6.5 K/ L 3.5-10.5 RED BLOOD CELL COUNT (BEAKER) (test wfln=614) 2.32 M/ L 4.63-6.08 HEMOGLOBIN (BEAKER) (test oyrf=662) 7.4 GM/DL 13.7-17.5 HEMATOCRIT (BEAKER) (test brkv=685) 23.1 % 40.1-51.0 MEAN CORPUSCULAR VOLUME (BEAKER) (test ooon=373) 99.6 fL 79.0-92.2 MEAN CORPUSCULAR HEMOGLOBIN (BEAKER) (test 31.9 pg 25.7-32.2 xvhd=240) MEAN CORPUSCULAR HEMOGLOBIN CONC (BEAKER) (test 32.0 GM/DL 32.3-36.5 slfx=684) RED CELL DISTRIBUTION WIDTH (BEAKER) (test 16.8 % 11.6-14.4 xkjs=404) PLATELET COUNT (BEAKER) (test iytd=162) 96 K/CU MM 150-450 MEAN PLATELET VOLUME (BEAKER) (test omgn=556) 12.0 fL 9.4-12.4 NUCLEATED RED BLOOD CELLS (BEAKER) (test 0 /100 WBC 0-0 klzi=895) BLOOD GAS, [id number] 03:46:00 Test Item Value Reference Range Comments PH ARTERIAL (BEAKER) (test abza=942) 7.41 7.35-7.45 PCO2 ARTERIAL (BEAKER) (test cbse=235) 44 mmHg 35-45 PO2 ARTERIAL (BEAKER) (test kjde=036) 66 mmHg 80-90 O2 SATURATION ARTERIAL (BEAKER) (test heww=995) 92.8 % 96.0-97.0 HCO3 ARTERIAL (BEAKER) (test gvda=224) 27 mmol/L 21-29 BASE EXCESS ARTERIAL (BEAKER) (test rhdx=362) 2.3 mmol/L -2.0-3.0 PATIENT TEMPERATURE (BEAKER) (test dosx=8824) 37.3 C FIO2 (BEAKER) (test hneh=4860) 40.0 % [id number] 01:25:00 Test Item Value Reference Range Comments POTASSIUM (BEAKER) (test qptr=951) 4.7 meq/L 3.5-5.1 Preparation Supervisor Freezing ID - PIAYA [id number] 20:33:00 Test Item Value Reference Range Comments POTASSIUM (BEAKER) (test peat=657) 4.7 meq/L 3.5-5.1 Preparation Supervisor Freezing ID - [id number] 20:33:00 Test Item Value Reference Range Comments MAGNESIUM (BEAKER) (test tmjc=495) 2.4 mg/dL 1.6-2.6 Preparation Supervisor Freezing ID - [id number] 20:33:00 Test Item Value Reference Range Comments PHOSPHORUS (BEAKER) (test pbtp=740) 4.5 mg/dL 2.3-4.7 Preparation Supervisor Freezing ID - BSPOCT-GLUCOSE [id number] 13:55:00 Test Item Value Reference Range Comments POC-GLUCOSE METER (BEAKER) 149 mg/dL 70-110 : TESTED AT [facility] [address] [facility] (test hfzp=6543) [facility], [id number]: Preparation Supervisor Freezing/Tool And Die Manager [id number] for September BLOOD GAS, [id number] 11:08:00 Test Item Value Reference Range Comments PH ARTERIAL (BEAKER) (test esrw=556) 7.34 7.35-7.45 PCO2 ARTERIAL (BEAKER) (test bteu=381) 47 mmHg 35-45 PO2 ARTERIAL (BEAKER) (test irfd=331) 101 mmHg 80-90 O2 SATURATION ARTERIAL (BEAKER) (test lqrp=534) 96.9 % 96.0-97.0 HCO3 ARTERIAL (BEAKER) (test fgtc=903) 25 mmol/L 21-29 BASE EXCESS ARTERIAL (BEAKER) (test nzje=082) -1.1 mmol/L -2.0-3.0 PATIENT TEMPERATURE (BEAKER) (test wnsm=0825) 38.1 C FIO2 (BEAKER) (test vlef=3162) 40.0 % [id number] 10:23:00 Test Item Value Reference Range Comments PHOSPHORUS (BEAKER) (test zevh=088) 4.9 mg/dL 2.3-4.7 Preparation Supervisor Freezing ID - [id number] 10:23:00 Test Item Value Reference Range Comments MAGNESIUM (BEAKER) (test ovnn=381) 2.7 mg/dL 1.6-2.6 Preparation Supervisor Freezing ID - [id number] 10:23:00 Test Item Value Reference Range Comments POTASSIUM (BEAKER) (test ypzb=525) 5.2 meq/L 3.5-5.1 Preparation Supervisor Freezing ID - DBPOCT-GLUCOSE [id number] 10:07:00 Test Item Value Reference Range Comments POC-GLUCOSE METER (BEAKER) 118 mg/dL 70-110 : TESTED AT [address] (test zjkz=1546) [facility], [address]: Preparation Supervisor Freezing/Tool And Die Manager [id number] for September RAD, CHEST, 1 VIEW, NON [id number] 06:52:00Reason for exam:->post cardiac surgeryFINAL REPORT RAD, CHEST, 1 VIEW, NON DEPT INDICATION: post cardiac surgery COMPARISON: Prior day's exam FINDINGS: Portable frontal view of the chest. IMPRESSION: Support Lines: Interval extubation and removal of the enteric tube. Other support lines and tubes are stable.Lungsand pleura: No new airspace consolidation post extubation. Lungs remain hypoinflated with bronchovascular crowding and left basilar hazy opacity is unchanged. No pneumothorax.Heart and mediastinum: Stable contours. Stable surgical changes.Additional findings: None. Signed: Yuridia Hand MDReport Verified Date/Time: 10/30/2019 06:52:57 POCT-GLUCOSE [id number] 06:39:00 Test Item Value Reference Range Comments POC-GLUCOSE METER (BEAKER) 146 mg/dL 70-110 : Notified RN/MD: TESTED AT (test baty=7545) [facility] [address] [facility], [address]: Preparation Supervisor Freezing/Tool And Die Manager [id number] for CECILIA [facility]ERRON [facility] [id number] 05:20:00 Test Item Value Reference Range Comments SODIUM (BEAKER) (test 142 meq/L 136-145 sctw=712) POTASSIUM (BEAKER) (test 5.3 meq/L 3.5-5.1 Specimen slightly udyn=605) hemolyzed CHLORIDE (BEAKER) (test 108 meq/L 98-107 uysp=018) CO2 (BEAKER) (test 24 meq/L 22-29 iura=895) BLOOD UREA NITROGEN 31 mg/dL 7-21 (BEAKER) (test cgty=464) CREATININE (BEAKER) (test 6.91 mg/dL 0.57-1.25 Specimen slightly ilkb=650) hemolyzed GLUCOSE RANDOM (BEAKER) 157 mg/dL 70-105 (test hpwr=222) CALCIUM (BEAKER) (test 9.4 mg/dL 8.4-10.2 oqrk=920) EGFR (BEAKER) (test 8 mL/min/1.73 sq m ESTIMATED GFR IS NOT dotp=1464) ACCURATE CREATININE CLEARANCE IN PREDICTING GLOMERULAR FILTRATION RATE. ESTIMATED GFR IS NOT APPLICABLE FOR DIALYSIS PATIENTS. Preparation Supervisor Freezing ID - GERRY [id number] 05:08:00 Test Item Value Reference Range Comments MAGNESIUM (BEAKER) (test 2.6 mg/dL 1.6-2.6 Specimen slightly hemolyzed edey=649) Preparation Supervisor Freezing ID - GERRY [id number] 05:08:00 Test Item Value Reference Range Comments PHOSPHORUS (BEAKER) (test 5.0 mg/dL 2.3-4.7 Specimen slightly hemolyzed sfms=637) Preparation Supervisor Freezing ID - GERRY [facility] (HEMOGRAM ONLY)2019-10-30 05:00:00 Test Item Value Reference Range Comments WHITE BLOOD CELL COUNT (BEAKER) (test jfeu=441) 6.7 K/ L 3.5-10.5 RED BLOOD CELL COUNT (BEAKER) (test slne=256) 2.52 M/ L 4.63-6.08 HEMOGLOBIN (BEAKER) (test hjwx=710) 7.8 GM/DL 13.7-17.5 HEMATOCRIT (BEAKER) (test sfne=971) 24.6 % 40.1-51.0 MEAN CORPUSCULAR VOLUME (BEAKER) (test hmje=437) 97.6 fL 79.0-92.2 MEAN CORPUSCULAR HEMOGLOBIN (BEAKER) (test 31.0 pg 25.7-32.2 nshe=497) MEAN CORPUSCULAR HEMOGLOBIN CONC (BEAKER) (test 31.7 GM/DL 32.3-36.5 wuwo=984) RED CELL DISTRIBUTION WIDTH (BEAKER) (test 17.4 % 11.6-14.4 otsa=496) PLATELET COUNT (BEAKER) (test hwah=426) 106 K/CU MM 150-450 MEAN PLATELET VOLUME (BEAKER) (test gygd=966) 12.3 fL 9.4-12.4 NUCLEATED RED BLOOD CELLS (BEAKER) (test 0 /100 WBC 0-0 nidh=368) BLOOD GAS, [id number] 04:50:00 Test Item Value Reference Range Comments PH ARTERIAL (BEAKER) (test rfqx=141) 7.33 7.35-7.45 PCO2 ARTERIAL (BEAKER) (test pqvn=479) 48 mmHg 35-45 PO2 ARTERIAL (BEAKER) (test jjgz=763) 202 mmHg 80-90 O2 SATURATION ARTERIAL (BEAKER) (test ejsb=019) 99.3 % 96.0-97.0 HCO3 ARTERIAL (BEAKER) (test actu=223) 24 mmol/L 21-29 BASE EXCESS ARTERIAL (BEAKER) (test jvxm=964) -1.3 mmol/L -2.0-3.0 PATIENT TEMPERATURE (BEAKER) (test vgvo=4753) 38.3 C FIO2 (BEAKER) (test tgay=9997) 60.0 % POCT-GLUCOSE [id number] 03:25:00 Test Item Value Reference Range Comments POC-GLUCOSE METER (BEAKER) 136 mg/dL 70-110 : Notified RN/MD: TESTED AT (test hebs=0610) [address], [address]: Preparation Supervisor Freezing/Tool And Die Manager [id number] for CECILIA HERRON [id number] 01:23:00 Test Item Value Reference Range Comments POTASSIUM (BEAKER) (test cikk=278) 5.2 meq/L 3.5-5.1 Preparation Supervisor Freezing ID - GERRY MPOCT-GLUCOSE [id number] 01:15:00 Test Item Value Reference Range Comments POC-GLUCOSE METER (BEAKER) 149 mg/dL 70-110 : TESTED AT [address] (test ddkl=0737) [facility], [address]: Preparation Supervisor Freezing/Tool And Die Manager [id number] for CHARLOTTE HARTMANN POCT-GLUCOSE [id number] 00:01:00 Test Item Value Reference Range Comments POC-GLUCOSE METER (BEAKER) 143 mg/dL 70-110 : TESTED AT [address] (test iucy=0423) [facility], [address]: Preparation Supervisor Freezing/Tool And Die Manager [id number] for BETSYUKIMCHARLOTTE POCT-GLUCOSE [id number] 21:28:00 Test Item Value Reference Range Comments POC-GLUCOSE METER (BEAKER) 157 mg/dL 70-110 : Notified RN/MD: TESTED AT (test qovb=1613) [address], [address]: Preparation Supervisor Freezing/Tool And Die Manager [id number] for CECILIA HERRON POCT-GLUCOSE [id number] 21:21:00 Test Item Value Reference Range Comments POC-GLUCOSE METER (BEAKER) 178 mg/dL 70-110 : TESTED AT [address] (test hlho=6579) [facility], [address]: Preparation Supervisor Freezing/Tool And Die Manager [id number] for GURMEET MERLOS JR BLOOD GAS, [id number] 20:04:00 Test Item Value Reference Range Comments PH ARTERIAL (BEAKER) (test aizh=962) 7.35 7.35-7.45 PCO2 ARTERIAL (BEAKER) (test iqpt=180) 47 mmHg 35-45 PO2 ARTERIAL (BEAKER) (test bxvi=759) 177 mmHg 80-90 O2 SATURATION ARTERIAL (BEAKER) (test yyys=251) 99.1 % 96.0-97.0 HCO3 ARTERIAL (BEAKER) (test oxca=540) 25 mmol/L 21-29 BASE EXCESS ARTERIAL (BEAKER) (test iuia=037) -0.4 mmol/L -2.0-3.0 PATIENT TEMPERATURE (BEAKER) (test zjdy=0798) 38.1 C FIO2 (BEAKER) (test hwws=4860) 60.0 % LACTIC ACID, [id number] 20:04:00 Test Item Value Reference Range Comments LACTATE BLOOD ARTERIAL (2) (BEAKER) (test 2.2 mmol/L 0.5-2.2 rayj=0385) Preparation Supervisor Freezing ID - DBCALCIUM, [id number] 19:58:00 Test Item Value Reference Range Comments CALCIUM IONIZED (BEAKER) (test xmcm=591) 1.19 mmol/L 1.12-1.27 PH, BLOOD (BEAKER) (test hbry=0373) 7.37 GLUCOSE-STAT [id number] 19:58:00 Test Item Value Reference Range Comments GLUCOSE RANDOM (BEAKER) (test tgnt=073) 168 mg/dL 70-110 HGB/HCT (H&H) - STAT [id number] 19:58:00 Test Item Value Reference Range Comments HEMOGLOBIN (BEAKER) (test ruey=002) 9.1 g/dL 13.0-16.8 HEMATOCRIT (BEAKER) (test ydpq=364) 27.0 % 40.0-50.0 SODIUM NA-STAT [id number] 19:57:00 Test Item Value Reference Range Comments SODIUM (BEAKER) (test tcum=629) 139 meq/L 135-148 POTASSIUM-STAT [id number] 19:57:00 Test Item Value Reference Range Comments POTASSIUM (BEAKER) (test drbl=705) 5.2 meq/L 3.6-5.5 [id number] 17:10:00 Test Item Value Reference Range Comments POTASSIUM (BEAKER) (test oykq=795) 5.3 meq/L 3.5-5.1 Preparation Supervisor Freezing ID - BSBLOOD GAS, [id number] 16:57:00 Test Item Value Reference Range Comments PH ARTERIAL (BEAKER) (test mroe=842) 7.36 7.35-7.45 PCO2 ARTERIAL (BEAKER) (test nlku=079) 44 mmHg 35-45 PO2 ARTERIAL (BEAKER) (test zpqp=976) 173 mmHg 80-90 O2 SATURATION ARTERIAL (BEAKER) (test yqtq=787) 99.1 % 96.0-97.0 HCO3 ARTERIAL (BEAKER) (test xtxv=344) 24 mmol/L 21-29 BASE EXCESS ARTERIAL (BEAKER) (test rgeg=121) -0.8 mmol/L -2.0-3.0 PATIENT TEMPERATURE (BEAKER) (test jjfi=5653) 38.4 C FIO2 (BEAKER) (test gmuy=4844) 40.0 % [id number] 12:24:00 Test Item Value Reference Range Comments POTASSIUM (BEAKER) (test aowh=979) 4.9 meq/L 3.5-5.1 Preparation Supervisor Freezing ID - ODETTE MBLOOD GAS, [id number] 11:53:00 Test Item Value Reference Range Comments PH ARTERIAL (BEAKER) (test rvxc=986) 7.43 7.35-7.45 PCO2 ARTERIAL (BEAKER) (test kiai=755) 36 mmHg 35-45 PO2 ARTERIAL (BEAKER) (test fsyl=245) 136 mmHg 80-90 O2 SATURATION ARTERIAL (BEAKER) (test zwfi=815) 98.8 % 96.0-97.0 HCO3 ARTERIAL (BEAKER) (test kskw=405) 23 mmol/L 21-29 BASE EXCESS ARTERIAL (BEAKER) (test frlf=232) -0.8 mmol/L -2.0-3.0 PATIENT TEMPERATURE (BEAKER) (test nwts=9815) 37.2 C FIO2 (BEAKER) (test cuxf=1556) 40.0 % POCT-GLUCOSE [id number] 11:45:00 Test Item Value Reference Range Comments POC-GLUCOSE METER (BEAKER) 181 mg/dL 70-110 : TESTED AT [facility] [address] (test klui=6982) [facility], [address]: Preparation Supervisor Freezing/Tool And Die Manager [id number] for SEPTEMBER GURMEET GREER [id number] 08:48:00 Test Item Value Reference Range Comments MAGNESIUM (BEAKER) (test 2.4 mg/dL 1.6-2.6 Specimen slightly hemolyzed uwai=207) Preparation Supervisor Freezing ID - GERRY [id number] 08:48:00 Test Item Value Reference Range Comments PHOSPHORUS (BEAKER) (test 3.4 mg/dL 2.3-4.7 Specimen slightly hemolyzed juql=924) Preparation Supervisor Freezing ID - GERRY [id number] 08:48:00 Test Item Value Reference Range Comments POTASSIUM (BEAKER) (test 4.6 meq/L 3.5-5.1 Specimen slightly hemolyzed dugu=173) Preparation Supervisor Freezing ID - GERRY MRAD, CHEST, 1 VIEW, NON [id number] 07:02:00while patient is intubated or has chest tubes.Reason for exam:->Status post CV SurgeryShould thisbe performed at the bedside?->YesFINAL REPORT RAD, CHEST, 1 VIEW, NON DEPT INDICATION: Status post CV Surgery COMPARISON: Prior day's exam FINDINGS: Portable frontal view of the chest. IMPRESSION: Limited by underpenetration, positioning and rotationSupport Lines: Stable. Lungs and pleura: Unchanged airspace and interstitial opacities. No pneumothorax.Heart and mediastinum: Stable contours. Stable surgical changes.Additional findings: None. Signed: JR Gracia Robert MDReport Verified Date/Time: 10/29/2019 07:02:49 Reading Location: [facility] Radiology Reading Room Electronically signed by: VERONICA GRACIA on 07:02 AMPOCT-GLUCOSE [id number] 06:37:00 Test Item Value Reference Range Comments POC-GLUCOSE METER (BEAKER) 150 mg/dL 70-110 : TESTED AT [address] (test wzvy=6675) [facility], [address]: Preparation Supervisor Freezing/Tool And Die Manager [id number] for YASMIN COBOS [id number] 06:37:00 Test Item Value Reference Range Comments ACTIVATED CLOTTING TIME 131 sec : 74-137 seconds, Baseline: (BEAKER) (test ueyr=600) TESTED AT [address], [address]: Preparation Supervisor Freezing/Tool And Die Manager [id number] for ANTHONY MARINO [id number] 06:36:00 Test Item Value Reference Range Comments ACTIVATED CLOTTING TIME 499 sec : 74-137 seconds, Baseline: (BEAKER) (test rgdh=380) TESTED AT [address], [address]: Preparation Supervisor Freezing/Tool And Die Manager [id number] for ANTHONY MARINO [id number] 06:36:00 Test Item Value Reference Range Comments ACTIVATED CLOTTING TIME 516 sec : 74-137 seconds, Baseline: (BEAKER) (test scvd=639) TESTED AT [address], [address]: Preparation Supervisor Freezing/Tool And Die Manager [id number] for ANTHONY MARINO [id number] 06:36:00 Test Item Value Reference Range Comments ACTIVATED CLOTTING TIME 621 sec : 74-137 seconds, Baseline: (BEAKER) (test cqph=437) TESTED AT [address], [address]: Preparation Supervisor Freezing/Tool And Die Manager [id number] for ANTHONY MARINO [id number] 06:36:00 Test Item Value Reference Range Comments ACTIVATED CLOTTING TIME 753 sec : 74-137 seconds, Baseline: (BEAKER) (test fkmg=959) TESTED AT [address], [address]: Preparation Supervisor Freezing/Tool And Die Manager [id number] for ANTHONY MARINO [id number] 06:36:00 Test Item Value Reference Range Comments ACTIVATED CLOTTING TIME 505 sec : 74-137 seconds, Baseline: (BEAKER) (test mlyf=536) TESTED AT [address], [address]: Preparation Supervisor Freezing/Tool And Die Manager [id number] for ANTHONY MARINO [id number] 06:36:00 Test Item Value Reference Range Comments ACTIVATED CLOTTING TIME 516 sec : 74-137 seconds, Baseline: (BEAKER) (test aehw=599) TESTED AT [address], [address]: Preparation Supervisor Freezing/Tool And Die Manager [id number] for ANTHONY MARINO POCT-GLUCOSE [id number] 04:37:00 Test Item Value Reference Range Comments POC-GLUCOSE METER (BEAKER) 141 mg/dL 70-110 : TESTED AT [address] (test gitw=6149) [facility], [address]: Preparation Supervisor Freezing/Tool And Die Manager [id number] for YASMIN COBOS BASIC METABOLIC [id number] 03:19:00 Test Item Value Reference Range Comments SODIUM (BEAKER) (test 141 meq/L 136-145 kgtc=214) POTASSIUM (BEAKER) (test 4.5 meq/L 3.5-5.1 iqxr=991) CHLORIDE (BEAKER) (test 109 meq/L 98-107 wayd=835) CO2 (BEAKER) (test 21 meq/L 22-29 bdok=592) BLOOD UREA NITROGEN 31 mg/dL 7-21 (BEAKER) (test kdos=837) CREATININE (BEAKER) (test 6.30 mg/dL 0.57-1.25 uuav=512) GLUCOSE RANDOM (BEAKER) 156 mg/dL 70-105 (test bqst=817) CALCIUM (BEAKER) (test 9.4 mg/dL 8.4-10.2 ktwk=632) EGFR (BEAKER) (test 9 mL/min/1.73 sq m ESTIMATED GFR IS NOT fyhd=8529) ACCURATE CREATININE CLEARANCE IN PREDICTING GLOMERULAR FILTRATION RATE. ESTIMATED GFR IS NOT APPLICABLE FOR DIALYSIS PATIENTS. Preparation Supervisor Freezing ID - GERRY MPT/[id number] 03:13:00 Test Item Value Reference Range Comments PROTIME (BEAKER) (test gycy=670) 14.9 seconds 11.9-14.2 INR (BEAKER) (test oczf=939) 1.2 <=5.9 PARTIAL THROMBOPLASTIN TIME (BEAKER) (test 44.8 seconds 22.5-36.0 ookz=506) Effective 01/30/2019: PT Reference Range ChangeNew: 11.9-14.2 Previous: 11.7- 14.7RECOMMENDED COUMADIN/WARFARIN INR THERAPY RANGESSTANDARD DOSE: 2.0-3.0 Includes: PROPHYLAXIS for venous thrombosis, systemic embolization; TREATMENT for venous thrombosis and/or pulmonary embolus.HIGH RISK: Target INR is2.5-3.5 for patients wiht mechanical heart valves.PROTHROMBIN TIME/[id number] 03:12: 00 Test Item Value Reference Range Comments PROTIME (BEAKER) (test slop=213) 14.9 seconds 11.9-14.2 INR (BEAKER) (test fihw=775) 1.2 <=5.9 Effective 01/30/2019: PT Reference Range ChangeNew: 11.9-14.2 Previous: 11.7- 14.7RECOMMENDED COUMADIN/WARFARIN INR THERAPY RANGESSTANDARD DOSE: 2.0-3.0 Includes: PROPHYLAXIS for venous thrombosis, systemic embolization; TREATMENT for venous thrombosis and/or pulmonary embolus.HIGH RISK: Target INR is2.5-3.5 for patients wiht mechanical heart valves.[id number] 03:09:00 Test Item Value Reference Range Comments PHOSPHORUS (BEAKER) (test zkqc=353) 2.4 mg/dL 2.3-4.7 Preparation Supervisor Freezing ID - GERRY [id number] 03:09:00 Test Item Value Reference Range Comments MAGNESIUM (BEAKER) (test zbdw=965) 2.8 mg/dL 1.6-2.6 Preparation Supervisor Freezing ID - GERRY MLACTIC ACID, [id number] 03:02:00 Test Item Value Reference Range Comments LACTATE BLOOD ARTERIAL (2) (BEAKER) (test 1.2 mmol/L 0.5-2.2 ijou=7721) Preparation Supervisor Freezing ID - GERRY [facility] (HEMOGRAM ONLY)2019-10-29 02:53:00 Test Item Value Reference Range Comments WHITE BLOOD CELL COUNT (BEAKER) (test daje=878) 5.6 K/ L 3.5-10.5 RED BLOOD CELL COUNT (BEAKER) (test iyya=515) 2.68 M/ L 4.63-6.08 HEMOGLOBIN (BEAKER) (test vfnm=631) 8.4 GM/DL 13.7-17.5 HEMATOCRIT (BEAKER) (test smdy=947) 25.3 % 40.1-51.0 MEAN CORPUSCULAR VOLUME (BEAKER) (test xkkh=406) 94.4 fL 79.0-92.2 MEAN CORPUSCULAR HEMOGLOBIN (BEAKER) (test 31.3 pg 25.7-32.2 ypkx=923) MEAN CORPUSCULAR HEMOGLOBIN CONC (BEAKER) (test 33.2 GM/DL 32.3-36.5 pgyr=112) RED CELL DISTRIBUTION WIDTH (BEAKER) (test 16.7 % 11.6-14.4 szpo=559) PLATELET COUNT (BEAKER) (test yxfu=919) 118 K/CU MM 150-450 MEAN PLATELET VOLUME (BEAKER) (test xejd=331) 11.7 fL 9.4-12.4 NUCLEATED RED BLOOD CELLS (BEAKER) (test 0 /100 WBC 0-0 tmqm=563) OXYGEN SATURATION, [id number] 02:52:00 Test Item Value Reference Range Comments O2 SATURATION (MEASURED) (BEAKER) (test vlwj=5938) 78.1 % BLOOD GAS, [id number] 02:51:00 Test Item Value Reference Range Comments PH ARTERIAL (BEAKER) (test rgha=858) 7.48 7.35-7.45 PCO2 ARTERIAL (BEAKER) (test edmw=948) 32 mmHg 35-45 PO2 ARTERIAL (BEAKER) (test hhov=123) 137 mmHg 80-90 O2 SATURATION ARTERIAL (BEAKER) (test juqg=972) 99.0 % 96.0-97.0 HCO3 ARTERIAL (BEAKER) (test vekj=163) 23 mmol/L 21-29 BASE EXCESS ARTERIAL (BEAKER) (test hriw=723) -0.5 mmol/L -2.0-3.0 PATIENT TEMPERATURE (BEAKER) (test zeyh=1339) 35.6 C FIO2 (BEAKER) (test cyey=8407) 40.0 % GLUCOSE-STAT [id number] 02:51:00 Test Item Value Reference Range Comments GLUCOSE RANDOM (BEAKER) (test pqlj=543) 158 mg/dL 70-110 CALCIUM, [id number] 02:50:00 Test Item Value Reference Range Comments CALCIUM IONIZED (BEAKER) (test hruc=451) 1.20 mmol/L 1.12-1.27 PH, BLOOD (BEAKER) (test uord=1172) 7.46 POCT-GLUCOSE [id number] 00:29:00 Test Item Value Reference Range Comments POC-GLUCOSE METER (BEAKER) 156 mg/dL 70-110 : TESTED AT [facility] [address] [facility] (test ozcm=4459) [facility], [address]: Preparation Supervisor Freezing/Tool And Die Manager [id number] for YASMIN COBOS [id number] 22:46:00 Test Item Value Reference Range Comments POTASSIUM (BEAKER) (test vhsg=515) 4.8 meq/L 3.5-5.1 Preparation Supervisor Freezing ID - [id number] 22:46:00 Test Item Value Reference Range Comments MAGNESIUM (BEAKER) (test hziy=951) 3.3 mg/dL 1.6-2.6 Preparation Supervisor Freezing ID - [id number] 22:46:00 Test Item Value Reference Range Comments PHOSPHORUS (BEAKER) (test qikr=153) 1.8 mg/dL 2.3-4.7 Preparation Supervisor Freezing ID - BSLACTIC ACID, [id number] 22:13:00 Test Item Value Reference Range Comments LACTATE BLOOD ARTERIAL (2) (BEAKER) (test 1.2 mmol/L 0.5-2.2 llkj=9598) Preparation Supervisor Freezing ID - BSPOCT-GLUCOSE [id number] 22:03:00 Test Item Value Reference Range Comments POC-GLUCOSE METER (BEAKER) 141 mg/dL 70-110 : TESTED AT [address] (test xykn=8017) [facility], [address]: Preparation Supervisor Freezing/Tool And Die Manager [id number] for ONNIMESH JORDANINE POCT-GLUCOSE [id number] 19:42:00 Test Item Value Reference Range Comments POC-GLUCOSE METER (BEAKER) 149 mg/dL 70-110 : TESTED AT [address] (test jtho=7099) [facility], [address]: Preparation Supervisor Freezing/Tool And Die Manager [id number] for JAMIE, KOUAME POCT-GLUCOSE [id number] 18:32:00 Test Item Value Reference Range Comments POC-GLUCOSE METER (BEAKER) 147 mg/dL 70-110 : TESTED AT [address] (test fsuo=5289) [facility], [address]: Preparation Supervisor Freezing/Tool And Die Manager [id number] for JAMIE, KOUAME [id number] 18:08:00 Test Item Value Reference Range Comments PHOSPHORUS (BEAKER) (test 3.4 mg/dL 2.3-4.7 Specimen slightly hemolyzed mzdn=565) Preparation Supervisor Freezing ID - ELEAZAR AYE, CHEST, 1 VIEW, NON [id number] 17:51:00Reason for exam:->ETTShould this be performed at the bedside?->YesFINAL REPORT X-ray chest AP portable COMPARISON: 10/22/2019 HISTORY: Endotracheal tube FINDINGS: The endotracheal tube tip is at the thoracic inlet approximately 7 cm from the hunter. This is at the upper limit of acceptable position. There is a nasogastric tube with the tip excluded from the image. There is a right subclavian route pacemaker dual-chamber. There is a right IJ route Follansbee-Pepe catheter with the tip in the region of the main probably artery. There is presence of one left pleural drain. There is dense opacification of the left lower lung zone that could represent atelectasis with or without effusion. There is possibly a trace right pleural effusion gravitating tothe right lung apex. There is no pneumothorax. There is cardiomegaly. The patient is status post median sternotomy and CABG. Incidentally noted is a left axillary area vascular stent. Upper abdomen is unremarkable. IMPRESSION: The endotracheal tube as described above. Signed: Darrius Pan MDReport Verified Date/Time: 10/28/2019 17:51:08 Reading Location: [address] Consult Reading Room CBC W/PLT COUNT & AUTO [id number] 17:49:00 Test Item Value Reference Range Comments WHITE BLOOD CELL COUNT (BEAKER) (test aopy=572) 6.4 K/ L 3.5-10.5 RED BLOOD CELL COUNT (BEAKER) (test tomf=443) 2.66 M/ L 4.63-6.08 HEMOGLOBIN (BEAKER) (test txvv=280) 8.5 GM/DL 13.7-17.5 HEMATOCRIT (BEAKER) (test uiqj=787) 25.1 % 40.1-51.0 MEAN CORPUSCULAR VOLUME (BEAKER) (test gbul=827) 94.4 fL 79.0-92.2 MEAN CORPUSCULAR HEMOGLOBIN (BEAKER) (test 32.0 pg 25.7-32.2 mowd=191) MEAN CORPUSCULAR HEMOGLOBIN CONC (BEAKER) (test 33.9 GM/DL 32.3-36.5 npof=848) RED CELL DISTRIBUTION WIDTH (BEAKER) (test 15.9 % 11.6-14.4 kldg=320) PLATELET COUNT (BEAKER) (test vifp=349) 125 K/CU MM 150-450 MEAN PLATELET VOLUME (BEAKER) (test lelu=667) 11.4 fL 9.4-12.4 NUCLEATED RED BLOOD CELLS (BEAKER) (test 0 /100 WBC 0-0 atcl=558) NEUTROPHILS RELATIVE PERCENT (BEAKER) (test 78 % kfye=661) LYMPHOCYTES RELATIVE PERCENT (BEAKER) (test 8 % cqfz=208) MONOCYTES RELATIVE PERCENT (BEAKER) (test 11 % xzwv=366) EOSINOPHILS RELATIVE PERCENT (BEAKER) (test 1 % hbol=820) BASOPHILS RELATIVE PERCENT (BEAKER) (test 0 % npnk=040) NEUTROPHILS ABSOLUTE COUNT (BEAKER) (test 4.97 K/ L 1.78-5.38 gyov=145) LYMPHOCYTES ABSOLUTE COUNT (BEAKER) (test 0.52 K/ L 1.32-3.57 kmpl=449) MONOCYTES ABSOLUTE COUNT (BEAKER) (test 0.72 K/ L 0.30-0.82 auwo=323) EOSINOPHILS ABSOLUTE COUNT (BEAKER) (test 0.05 K/ L 0.04-0.54 wcoc=052) BASOPHILS ABSOLUTE COUNT (BEAKER) (test 0.02 K/ L 0.01-0.08 mmdv=535) IMMATURE GRANULOCYTES-RELATIVE PERCENT (BEAKER) 1 % 0-1 (test lzmg=5685) BASIC METABOLIC [id number] 17:38:00 Test Item Value Reference Range Comments SODIUM (BEAKER) (test 143 meq/L 136-145 wtyp=379) POTASSIUM (BEAKER) (test 5.1 meq/L 3.5-5.1 Specimen slightly nwym=616) hemolyzed CHLORIDE (BEAKER) (test 107 meq/L 98-107 vmtr=601) CO2 (BEAKER) (test 24 meq/L 22-29 xaiz=131) BLOOD UREA NITROGEN 37 mg/dL 7-21 (BEAKER) (test irnu=215) CREATININE (BEAKER) (test 8.08 mg/dL 0.57-1.25 Specimen slightly dffx=151) hemolyzed GLUCOSE RANDOM (BEAKER) 198 mg/dL 70-105 (test ljdj=702) CALCIUM (BEAKER) (test 9.1 mg/dL 8.4-10.2 kary=402) EGFR (BEAKER) (test 7 mL/min/1.73 sq m ESTIMATED GFR IS NOT boar=7865) ACCURATE CREATININE CLEARANCE IN PREDICTING GLOMERULAR FILTRATION RATE. ESTIMATED GFR IS NOT APPLICABLE FOR DIALYSIS PATIENTS. Preparation Supervisor Freezing ID [place] BUSH EPROTHROMBIN TIME/[id number] 17:31:00 Test Item Value Reference Range Comments PROTIME (BEAKER) (test dtjp=253) 15.4 seconds 11.9-14.2 INR (BEAKER) (test ttne=357) 1.3 <=5.9 Effective 01/30/2019: PT Reference Range ChangeNew: 11.9-14.2 Previous: 11.7- 14.7RECOMMENDED COUMADIN/WARFARIN INR THERAPY RANGESSTANDARD DOSE: 2.0-3.0 Includes: PROPHYLAXIS for venous thrombosis, systemic embolization; TREATMENT for venous thrombosis and/or pulmonary embolus.HIGH RISK: Target INR is2.5-3.5 for patients wiht mechanical heart valves.[id number] 17:31:00 Test Item Value Reference Range Comments FIBRINOGEN LEVEL (BEAKER) (test iyne=045) 343 mg/dl 225-434 [id number] 17:31:00 Test Item Value Reference Range Comments PARTIAL THROMBOPLASTIN TIME (BEAKER) (test 36.5 seconds 22.5-36.0 gedg=962) [id number] 17:25:00 Test Item Value Reference Range Comments MAGNESIUM (BEAKER) (test 3.4 mg/dL 1.6-2.6 Specimen slightly hemolyzed qome=957) Preparation Supervisor Freezing ID - ELEAZAR ELACTIC ACID, [id number] 17:20:00 Test Item Value Reference Range Comments LACTATE BLOOD ARTERIAL (2) 3.0 mmol/L 0.5-2.2 Specimen slightly hemolyzed (BEAKER) (test wnto=5776) Preparation Supervisor Freezing ID - ELEAZAR EPLATELET [id number] 17:11:00 Test Item Value Reference Range Comments PLATELET COUNT (BEAKER) (test ggzm=206) 119 K/CU MM 150-450 Preparation Supervisor Freezing ID - ShaanBLOOD GAS, [id number] 17:06:00 Test Item Value Reference Range Comments PH ARTERIAL (BEAKER) (test mlbk=782) 7.44 7.35-7.45 PCO2 ARTERIAL (BEAKER) (test odmk=314) 38 mmHg 35-45 PO2 ARTERIAL (BEAKER) (test jrgx=666) 85 mmHg 80-90 O2 SATURATION ARTERIAL (BEAKER) (test wzsk=345) 97.0 % 96.0-97.0 HCO3 ARTERIAL (BEAKER) (test qxhk=050) 25 mmol/L 21-29 BASE EXCESS ARTERIAL (BEAKER) (test nljp=949) 0.6 mmol/L -2.0-3.0 PATIENT TEMPERATURE (BEAKER) (test cobw=2773) 36.3 C FIO2 (BEAKER) (test yuwg=2102) 40.0 % SODIUM NA-STAT [id number] 17:06:00 Test Item Value Reference Range Comments SODIUM (BEAKER) (test jgbz=093) 141 meq/L 135-148 POTASSIUM-STAT [id number] 17:06:00 Test Item Value Reference Range Comments POTASSIUM (BEAKER) (test xtae=040) 5.1 meq/L 3.6-5.5 CALCIUM, [id number] 17:06:00 Test Item Value Reference Range Comments CALCIUM IONIZED (BEAKER) (test hyxz=033) 1.12 mmol/L 1.12-1.27 PH, BLOOD (BEAKER) (test maho=9709) 7.44 GLUCOSE-STAT [id number] 17:06:00 Test Item Value Reference Range Comments GLUCOSE RANDOM (BEAKER) (test mpha=708) 192 mg/dL 70-110 HGB/HCT (H&H) - STAT [id number] 17:06:00 Test Item Value Reference Range Comments HEMOGLOBIN (BEAKER) (test vtax=697) 8.4 g/dL 13.0-16.8 HEMATOCRIT (BEAKER) (test qkgi=105) 25.0 % 40.0-50.0 OXYGEN SATURATION, [id number] 17:06:00 Test Item Value Reference Range Comments O2 SATURATION (MEASURED) (BEAKER) (test pfwz=8649) 73.6 % CBC W/PLT COUNT & AUTO [id number] 16:50:00 Test Item Value Reference Range Comments WHITE BLOOD CELL COUNT (BEAKER) (test klmw=961) 10.3 K/ L 3.5-10.5 RED BLOOD CELL COUNT (BEAKER) (test zaud=626) 2.13 M/ L 4.63-6.08 HEMOGLOBIN (BEAKER) (test gpla=144) 6.8 GM/DL 13.7-17.5 HEMATOCRIT (BEAKER) (test bccf=403) 21.4 % 40.1-51.0 MEAN CORPUSCULAR VOLUME (BEAKER) (test fdfl=052) 100.5 fL 79.0-92.2 MEAN CORPUSCULAR HEMOGLOBIN (BEAKER) (test 31.9 pg 25.7-32.2 ziro=622) MEAN CORPUSCULAR HEMOGLOBIN CONC (BEAKER) (test 31.8 GM/DL 32.3-36.5 zfdu=620) RED CELL DISTRIBUTION WIDTH (BEAKER) (test 15.5 % 11.6-14.4 qwlc=688) PLATELET COUNT (BEAKER) (test aegg=932) 89 K/CU MM 150-450 MEAN PLATELET VOLUME (BEAKER) (test eiec=327) 12.2 fL 9.4-12.4 NUCLEATED RED BLOOD CELLS (BEAKER) (test 0 /100 WBC 0-0 xrpi=662) NEUTROPHILS RELATIVE PERCENT (BEAKER) (test 59 % ikvb=299) LYMPHOCYTES RELATIVE PERCENT (BEAKER) (test 37 % gypj=168) MONOCYTES RELATIVE PERCENT (BEAKER) (test 2 % bakq=839) EOSINOPHILS RELATIVE PERCENT (BEAKER) (test 1 % fvtj=957) BASOPHILS RELATIVE PERCENT (BEAKER) (test 1 % iqxs=314) NEUTROPHILS ABSOLUTE COUNT (BEAKER) (test 6.01 K/ L 1.78-5.38 uzos=442) LYMPHOCYTES ABSOLUTE COUNT (BEAKER) (test 3.77 K/ L 1.32-3.57 hqur=494) MONOCYTES ABSOLUTE COUNT (BEAKER) (test oddh=938) 0.21 K/ L 0.30-0.82 EOSINOPHILS ABSOLUTE COUNT (BEAKER) (test 0.05 K/ L 0.04-0.54 laum=247) BASOPHILS ABSOLUTE COUNT (BEAKER) (test hoxw=364) 0.05 K/ L 0.01-0.08 IMMATURE GRANULOCYTES-RELATIVE PERCENT (BEAKER) 2 % 0-1 (test htjc=8450) SODIUM NA-STAT [id number] 15:41:00 Test Item Value Reference Range Comments SODIUM (BEAKER) (test yrbf=167) 141 meq/L 135-148 POTASSIUM-STAT [id number] 15:41:00 Test Item Value Reference Range Comments POTASSIUM (BEAKER) (test quip=824) 4.7 meq/L 3.6-5.5 CALCIUM, [id number] 15:41:00 Test Item Value Reference Range Comments CALCIUM IONIZED (BEAKER) (test alxz=150) 1.15 mmol/L 1.12-1.27 PH, BLOOD (BEAKER) (test jjmo=9576) 7.40 BLOOD GAS, [id number] 15:41:00 Test Item Value Reference Range Comments PH ARTERIAL (BEAKER) (test myml=099) 7.40 7.35-7.45 PCO2 ARTERIAL (BEAKER) (test gtgz=602) 36 mmHg 35-45 PO2 ARTERIAL (BEAKER) (test apsy=776) 261 mmHg 80-90 O2 SATURATION ARTERIAL (BEAKER) (test lwhg=750) 99.6 % 96.0-97.0 HCO3 ARTERIAL (BEAKER) (test fuza=723) 22 mmol/L 21-29 BASE EXCESS ARTERIAL (BEAKER) (test wlzp=894) -2.8 mmol/L -2.0-3.0 PATIENT TEMPERATURE (BEAKER) (test tgal=1365) 36.0 C FIO2 (BEAKER) (test nwkw=1032) 100.0 % GLUCOSE-STAT [id number] 15:41:00 Test Item Value Reference Range Comments GLUCOSE RANDOM (BEAKER) (test pmuv=336) 216 mg/dL 70-110 HGB/HCT (H&H) - STAT [id number] 15:41:00 Test Item Value Reference Range Comments HEMOGLOBIN (BEAKER) (test xqvu=900) 8.0 g/dL 13.0-16.8 HEMATOCRIT (BEAKER) (test yjpw=443) 24.0 % 40.0-50.0 SODIUM NA-STAT [id number] 15:17:00 Test Item Value Reference Range Comments SODIUM (BEAKER) (test kfcv=927) 140 meq/L 135-148 POTASSIUM-STAT [id number] 15:17:00 Test Item Value Reference Range Comments POTASSIUM (BEAKER) (test mcqt=854) 4.5 meq/L 3.6-5.5 CALCIUM, [id number] 15:17:00 Test Item Value Reference Range Comments CALCIUM IONIZED (BEAKER) (test piqg=560) 1.01 mmol/L 1.12-1.27 PH, BLOOD (BEAKER) (test fdhb=9937) 7.38 BLOOD GAS, [id number] 15:17:00 Test Item Value Reference Range Comments PH ARTERIAL (BEAKER) (test snvx=805) 7.38 7.35-7.45 PCO2 ARTERIAL (BEAKER) (test mdqa=333) 37 mmHg 35-45 PO2 ARTERIAL (BEAKER) (test zetp=431) 311 mmHg 80-90 O2 SATURATION ARTERIAL (BEAKER) (test akoi=061) 99.7 % 96.0-97.0 HCO3 ARTERIAL (BEAKER) (test ntrp=020) 21 mmol/L 21-29 BASE EXCESS ARTERIAL (BEAKER) (test dawq=084) -3.7 mmol/L -2.0-3.0 PATIENT TEMPERATURE (BEAKER) (test wywu=2638) 36.0 C GLUCOSE-STAT [id number] 15:17:00 Test Item Value Reference Range Comments GLUCOSE RANDOM (BEAKER) (test tbmi=685) 226 mg/dL 70-110 HGB/HCT (H&H) - STAT [id number] 15:17:00 Test Item Value Reference Range Comments HEMOGLOBIN (BEAKER) (test yzga=152) 7.5 g/dL 13.0-16.8 HEMATOCRIT (BEAKER) (test szwp=309) 22.0 % 40.0-50.0 [id number] 15:01:00 Test Item Value Reference Range Comments FIBRINOGEN LEVEL (BEAKER) (test toam=342) 314 mg/dl 225-434 [id number] 14:57:00 Test Item Value Reference Range Comments PARTIAL THROMBOPLASTIN TIME (BEAKER) (test 38.4 seconds 22.5-36.0 nyfa=560) PROTHROMBIN [id number] 14:56:00 Test Item Value Reference Range Comments PROTIME (BEAKER) (test eude=570) 19.1 seconds 11.9-14.2 INR (BEAKER) (test quep=060) 1.7 <=5.9 Effective 01/30/2019: PT Reference Range ChangeNew: 11.9-14.2 Previous: 11.7- 14.7RECOMMENDED COUMADIN/WARFARIN INR THERAPY RANGESSTANDARD DOSE: 2.0-3.0 Includes: PROPHYLAXIS for venous thrombosis, systemic embolization; TREATMENT for venous thrombosis and/or pulmonary embolus.HIGH RISK: Target INR is2.5-3.5 for patients wiht mechanical heart valves.BLOOD GAS, [id number] 14:47:00 Test Item Value Reference Range Comments PH ARTERIAL (BEAKER) (test eelo=503) 7.25 7.35-7.45 PCO2 ARTERIAL (BEAKER) (test ifkx=776) 52 mmHg 35-45 PO2 ARTERIAL (BEAKER) (test fgoy=494) 223 mmHg 80-90 O2 SATURATION ARTERIAL (BEAKER) (test khur=374) 99.3 % 96.0-97.0 HCO3 ARTERIAL (BEAKER) (test wykn=161) 22 mmol/L 21-29 BASE EXCESS ARTERIAL (BEAKER) (test tnrn=490) -4.9 mmol/L -2.0-3.0 PATIENT TEMPERATURE (BEAKER) (test zgxo=3334) 36.3 C FIO2 (BEAKER) (test prdw=2484) 100.0 % GLUCOSE-STAT [id number] 14:47:00 Test Item Value Reference Range Comments GLUCOSE RANDOM (BEAKER) (test gpfl=018) 240 mg/dL 70-110 HGB/HCT (H&H) - STAT [id number] 14:47:00 Test Item Value Reference Range Comments HEMOGLOBIN (BEAKER) (test gspz=490) 7.1 g/dL 13.0-16.8 HEMATOCRIT (BEAKER) (test sxbs=513) 21.0 % 40.0-50.0 PLATELET [id number] 14:46:00 Test Item Value Reference Range Comments PLATELET COUNT (BEAKER) (test moyo=801) 86 K/CU MM 150-450 Preparation Supervisor Freezing ID - [id number], [id number] 14:46:00 Test Item Value Reference Range Comments CALCIUM IONIZED (BEAKER) (test aiwk=094) 1.22 mmol/L 1.12-1.27 PH, BLOOD (BEAKER) (test xcuf=2420) 7.24 SODIUM NA-STAT [id number] 14:45:00 Test Item Value Reference Range Comments SODIUM (BEAKER) (test gqur=997) 138 meq/L 135-148 POTASSIUM-STAT [id number] 14:45:00 Test Item Value Reference Range Comments POTASSIUM (BEAKER) (test wzan=258) 4.9 meq/L 3.6-5.5 CT, CTA, [id number] 14:28:00Addendum BeginsREPORT STATUS:A ADDENDUM: I agree with the previously described non vascular findings. Additional findings:None. Signed: Luis Daniel Kevin MDReport Verified Date/Time: 14:28:45 Reading Location: [place] [address] Angio Body Reading RoomAddendum EndsFINAL REPORT CT angiography of the thoracic aorta, 25 November 2019 INDICATION: This is a 69year old male with a diagnosis of coronary artery disease, presents for prevascular surgery assessment TECHNIQUE: Spiral acquisition before and during during intravenous contrast administration using [employer] multidetector CT scanner. Images were obtained before and during the dynamic passage of intravenous contrast material. Multi-planar 3-D volume- rendering reconstruction was performed using an independent workstation interactively by the interpreting physician as well as the 3-D specialist for optimal visualisation of the thoracic aorta and its proximal branches. Please refer to the contrast sheet scanned in the EPIC system for the amount and route of contrast given. This exam was performed according to our departmental dose- optimisation programme, which includes automated exposure control, adjustment of the mA and/or kV according to patient size and/or use of iterative reconstruction technique. Dose modulation, iterative reconstruction, and/or weight based adjustment of the mA/kV was utilized to reduce the radiation dose to as low as reasonably achievable. FINDINGS: VASCULAR: An electronic device is identified in the right upper chest, with pacing leads identified in the right-sided cardiac chambers. No pericardial effusion is identified. The central pulmonary artery is normal in calibre. There is no evidence of central pulmonary artery embolism identified. The cardiac chambers demonstrate normal atrioventricular and ventriculoarterial concordance, and systemic and pulmonary venous return. In the mid diastolic data set, the left ventricle is enlarged. Mild left atrial prominence isidentified. Coronary artery origins are normal and diffuse calcification is identified in all 3 coronary territories. In fact, there is likely stent versus diffuse calcification identified in the proximal and mid LAD for length of approximately 6.7 cm. Thereafter, remainder of the the mid and distal LAD appears to be free of calcification of precontrast series , however, patency is difficult to comment upon. The thoracic aorta is normal in course, contour, and calibre. There is no calcification seen in the aortic root and ascending thoracic aorta. Minimal calcification is seen scattered along thetransverse arch and descending thoracic aorta. There is no evidence of acute aortic pathology, specifically, there is no dissection, intramural hematoma, or contained rupture. The arch vessel branching pattern is normal and the visualised portion of the arch vessels are widely patent. There is somescattered focal nonobstructive calcification seen at the takeoff of the left subclavian artery at image 47 thereafter remainder of the the left subclavian artery including where the DESMOND arises of calcification. The left subclavian artery is widely patent. The left and the right internal mammary arteries are also well seen. Quantitative dimensions of the aorta are as follows : 3.2 cm at the sinuses of Valsalva (the sino-tubular junction is preserved); 2.7 cm at the proximal ascending thoracic aorta; 3.5 cm at the mid ascending aorta; 2.7 cm at the distal ascending aorta; 2.3 cm at the mid transverse arch ; 2.5 cm at the proximal descending aorta; 2.2 cm at the mid descending aorta; 2.1 cm at the diaphragmatic hiatus. The left brachycephalic vein is 2.8 cm posterior to the sternum; the mid ascending thoracic aorta is 5.0 cm posterior to the sternum; the aortic root is at least 6 cm posterior to the sternum. The distal LAD, relatively free of contrast, at image 113, is approximately 1 cm adjacent to the left rib. Please See snapshot for details. No obvious aortic valve calcification is seen and no mitral annular calcification is appreciated. NON-VASCULAR: The visualised thyroid gland is unremarkable. The chest wall and mediastinum appear normal. Number of small lymph nodes are seen, less than 1cm in size, therefore considered nonspecific in nature. In the lung windows, no endobronchial lesionis seen. Small left basal pleural effusion is identified and associated atelectatic changes are seen. Overall, no pulmonary nodule is appreciated. Limited images of the upper abdomen reveals no gross abnormality. In the AP orientation, the spleen is mildly prominent measure 13.3 cm, of uncertain significance. Correlate clinically. No acute bony pathology is seen. Some degenerative changes is noted. CONCLUSIONS: 1. The thoracic aorta is normal in course, contour, and calibre. There ascending thoracic aorta and aortic root is free of calcification. No ectasia or aneurysmal dilation is seen. Thereis no evidence of acute aortic pathology, specifically, there is no dissection, intramural hematoma,or contained rupture. Quantitative dimension of the thoracic aorta are as described above. Minimal nonobstructive calcification is seen in the takeoff of the left subclavian artery and the left ablation artery is widely patent. 2. Normal coronary artery origins. Diffuse calcification is seen in all 3 coronary territories, as specially in the proximal 6.7 cm of the LAD, diffuse calcification versus stent is present. The left ventricle is enlarged. 3. Pulmonary findings as described above. Small left basal pleural effusion. The central pulmonary artery is normal in calibre no evidence of central pulmonary artery embolism is identified. 4. Other findings as described above 5. An addendum will be dictated regarding the non-vascular findings by the Design Engineer Agricultural Equipment Radiologist. Signed: [facility] Verified Date/Time: 10/28/2019 07:41:51 BLOOD GAS, [id number] 14:00:00 Test Item Value Reference Range Comments PH ARTERIAL (BEAKER) (test gmwz=464) 7.40 7.35-7.45 PCO2 ARTERIAL (BEAKER) (test kvkn=617) 37 mmHg 35-45 PO2 ARTERIAL (BEAKER) (test oilf=482) 317 mmHg 80-90 O2 SATURATION ARTERIAL (BEAKER) (test mpec=683) 99.7 % 96.0-97.0 HCO3 ARTERIAL (BEAKER) (test qvws=841) 23 mmol/L 21-29 BASE EXCESS ARTERIAL (BEAKER) (test sbdy=897) -2.2 mmol/L -2.0-3.0 PATIENT TEMPERATURE (BEAKER) (test pexg=6693) 35.5 C FIO2 (BEAKER) (test zzlo=8006) 70.0 % POTASSIUM-STAT [id number] 14:00:00 Test Item Value Reference Range Comments POTASSIUM (BEAKER) (test cobn=133) 5.7 meq/L 3.6-5.5 GLUCOSE-STAT [id number] 14:00:00 Test Item Value Reference Range Comments GLUCOSE RANDOM (BEAKER) (test nwyy=689) 229 mg/dL 70-110 HGB/HCT (H&H) - STAT [id number] 14:00:00 Test Item Value Reference Range Comments HEMOGLOBIN (BEAKER) (test dtnv=554) 7.1 g/dL 13.0-16.8 HEMATOCRIT (BEAKER) (test nskw=607) 21.0 % 40.0-50.0 SODIUM NA-STAT [id number] 13:59:00 Test Item Value Reference Range Comments SODIUM (BEAKER) (test nojk=775) 138 meq/L 135-148 SODIUM NA-STAT [id number] 13:33:00 Test Item Value Reference Range Comments SODIUM (BEAKER) (test chie=174) 138 meq/L 135-148 POTASSIUM-STAT [id number] 13:33:00 Test Item Value Reference Range Comments POTASSIUM (BEAKER) (test xwpt=223) 5.4 meq/L 3.6-5.5 BLOOD GAS, [id number] 13:33:00 Test Item Value Reference Range Comments PH ARTERIAL (BEAKER) (test pkoy=178) 7.41 7.35-7.45 PCO2 ARTERIAL (BEAKER) (test ajct=958) 39 mmHg 35-45 PO2 ARTERIAL (BEAKER) (test jpqt=161) 290 mmHg 80-90 O2 SATURATION ARTERIAL (BEAKER) (test ctnh=610) 99.7 % 96.0-97.0 HCO3 ARTERIAL (BEAKER) (test rrsj=218) 24 mmol/L 21-29 BASE EXCESS ARTERIAL (BEAKER) (test shzn=148) -0.6 mmol/L -2.0-3.0 PATIENT TEMPERATURE (BEAKER) (test tnak=1911) 35.8 C FIO2 (BEAKER) (test jain=9258) 70.0 % GLUCOSE-STAT [id number] 13:33:00 Test Item Value Reference Range Comments GLUCOSE RANDOM (BEAKER) (test wlan=331) 202 mg/dL 70-110 HGB/HCT (H&H) - STAT [id number] 13:33:00 Test Item Value Reference Range Comments HEMOGLOBIN (BEAKER) (test lxsm=361) 8.4 g/dL 13.0-16.8 HEMATOCRIT (BEAKER) (test fkkf=597) 25.0 % 40.0-50.0 LACTIC ACID, [id number] 13:10:00 Test Item Value Reference Range Comments LACTATE BLOOD ARTERIAL (2) (BEAKER) (test 0.9 mmol/L 0.5-2.2 pxbi=0242) Preparation Supervisor Freezing ID - SALONI FSODIUM NA-STAT [id number] 13:00:00 Test Item Value Reference Range Comments SODIUM (BEAKER) (test hhgi=777) 135 meq/L 135-148 POTASSIUM-STAT [id number] 13:00:00 Test Item Value Reference Range Comments POTASSIUM (BEAKER) (test qdjp=266) 5.1 meq/L 3.6-5.5 BLOOD GAS, [id number] 13:00:00 Test Item Value Reference Range Comments PH ARTERIAL (BEAKER) (test fpri=342) 7.36 7.35-7.45 PCO2 ARTERIAL (BEAKER) (test axqt=504) 43 mmHg 35-45 PO2 ARTERIAL (BEAKER) (test hhyp=052) 286 mmHg 80-90 O2 SATURATION ARTERIAL (BEAKER) (test omex=351) 99.6 % 96.0-97.0 HCO3 ARTERIAL (BEAKER) (test amqn=706) 25 mmol/L 21-29 BASE EXCESS ARTERIAL (BEAKER) (test dcnz=249) -1.6 mmol/L -2.0-3.0 PATIENT TEMPERATURE (BEAKER) (test phaf=0225) 32.0 C FIO2 (BEAKER) (test envq=2572) 65.0 % GLUCOSE-STAT [id number] 13:00:00 Test Item Value Reference Range Comments GLUCOSE RANDOM (BEAKER) (test knfm=285) 211 mg/dL 70-110 HGB/HCT (H&H) - STAT [id number] 13:00:00 Test Item Value Reference Range Comments HEMOGLOBIN (BEAKER) (test ghwj=823) 7.3 g/dL 13.0-16.8 HEMATOCRIT (BEAKER) (test wsif=736) 21.0 % 40.0-50.0 POTASSIUM-STAT [id number] 12:43:00 Test Item Value Reference Range Comments POTASSIUM (BEAKER) (test yvxt=665) 5.6 meq/L 3.6-5.5 SODIUM NA-STAT [id number] 12:43:00 Test Item Value Reference Range Comments SODIUM (BEAKER) (test aqaa=085) 133 meq/L 135-148 BLOOD GAS, [id number] 12:42:00 Test Item Value Reference Range Comments PH ARTERIAL (BEAKER) (test kwqw=999) 7.37 7.35-7.45 PCO2 ARTERIAL (BEAKER) (test xwau=558) 40 mmHg 35-45 PO2 ARTERIAL (BEAKER) (test qwkj=961) 263 mmHg 80-90 O2 SATURATION ARTERIAL (BEAKER) (test qsrb=617) 99.6 % 96.0-97.0 HCO3 ARTERIAL (BEAKER) (test yfdo=362) 25 mmol/L 21-29 BASE EXCESS ARTERIAL (BEAKER) (test rfvl=307) -2.2 mmol/L -2.0-3.0 PATIENT TEMPERATURE (BEAKER) (test niuh=8133) 30.8 C FIO2 (BEAKER) (test gvig=1941) 65.0 % GLUCOSE-STAT [id number] 12:42:00 Test Item Value Reference Range Comments GLUCOSE RANDOM (BEAKER) (test yroo=251) 201 mg/dL 70-110 HGB/HCT (H&H) - STAT [id number] 12:42:00 Test Item Value Reference Range Comments HEMOGLOBIN (BEAKER) (test fxiv=225) 7.9 g/dL 13.0-16.8 HEMATOCRIT (BEAKER) (test edou=291) 23.0 % 40.0-50.0 BLOOD GAS, [id number] 12:21:00 Test Item Value Reference Range Comments PH ARTERIAL (BEAKER) (test vygh=577) 7.45 7.35-7.45 PCO2 ARTERIAL (BEAKER) (test gpnz=493) 32 mmHg 35-45 PO2 ARTERIAL (BEAKER) (test unqf=495) 364 mmHg 80-90 O2 SATURATION ARTERIAL (BEAKER) (test gbdn=853) 99.8 % 96.0-97.0 HCO3 ARTERIAL (BEAKER) (test loyr=546) 23 mmol/L 21-29 BASE EXCESS ARTERIAL (BEAKER) (test gqqu=045) -2.4 mmol/L -2.0-3.0 PATIENT TEMPERATURE (BEAKER) (test sckf=3169) 30.2 C FIO2 (BEAKER) (test yyfk=8642) 80.0 % GLUCOSE-STAT [id number] 12:21:00 Test Item Value Reference Range Comments GLUCOSE RANDOM (BEAKER) (test vfee=641) 197 mg/dL 70-110 HGB/HCT (H&H) - STAT [id number] 12:21:00 Test Item Value Reference Range Comments HEMOGLOBIN (BEAKER) (test kcfi=847) 7.2 g/dL 13.0-16.8 HEMATOCRIT (BEAKER) (test bfck=434) 21.0 % 40.0-50.0 SODIUM NA-STAT [id number] 12:21:00 Test Item Value Reference Range Comments SODIUM (BEAKER) (test pdtn=309) 134 meq/L 135-148 POTASSIUM-STAT [id number] 12:10:00 Test Item Value Reference Range Comments POTASSIUM (BEAKER) (test palq=297) 4.6 meq/L 3.6-5.5 SODIUM NA-STAT [id number] 08:36:00 Test Item Value Reference Range Comments SODIUM (BEAKER) (test rpil=499) 135 meq/L 135-148 POTASSIUM-STAT [id number] 08:36:00 Test Item Value Reference Range Comments POTASSIUM (BEAKER) (test oqyv=608) 4.5 meq/L 3.6-5.5 BLOOD GAS, [id number] 08:36:00 Test Item Value Reference Range Comments PH ARTERIAL (BEAKER) (test hrqb=398) 7.37 7.35-7.45 PCO2 ARTERIAL (BEAKER) (test uihs=503) 47 mmHg 35-45 PO2 ARTERIAL (BEAKER) (test enkc=595) 286 mmHg 80-90 O2 SATURATION ARTERIAL (BEAKER) (test mluo=975) 99.6 % 96.0-97.0 HCO3 ARTERIAL (BEAKER) (test juql=542) 27 mmol/L 21-29 BASE EXCESS ARTERIAL (BEAKER) (test wkwa=015) 0.9 mmol/L -2.0-3.0 PATIENT TEMPERATURE (BEAKER) (test cjnj=0248) 37.0 C FIO2 (BEAKER) (test udkb=7499) 87.0 % GLUCOSE-STAT [id number] 08:36:00 Test Item Value Reference Range Comments GLUCOSE RANDOM (BEAKER) (test agag=659) 138 mg/dL 70-110 HGB/HCT (H&H) - STAT [id number] 08:36:00 Test Item Value Reference Range Comments HEMOGLOBIN (BEAKER) (test rspp=848) 8.9 g/dL 13.0-16.8 HEMATOCRIT (BEAKER) (test pvgj=202) 26.0 % 40.0-50.0 [id number] 07:05:00 Test Item Value Reference Range Comments PROTIME (BEAKER) (test nfzg=138) 14.1 seconds 11.9-14.2 INR (BEAKER) (test hcjn=820) 1.1 <=5.9 PARTIAL THROMBOPLASTIN TIME (BEAKER) (test > seconds 22.5-36.0 dxtv=660) Effective 01/30/2019: PT Reference Range ChangeNew: 11.9-14.2 Previous: 11.7- 14.7RECOMMENDED COUMADIN/WARFARIN INR THERAPY RANGESSTANDARD DOSE: 2.0-3.0 Includes: PROPHYLAXIS for venous thrombosis, systemic embolization; TREATMENT for venous thrombosis and/or pulmonary embolus.HIGH RISK: Target INR is2.5-3.5 for patients wiht mechanical heart valves.COMPREHENSIVE METABOLIC [id number] 05:28:00 Test Item Value Reference Range Comments TOTAL PROTEIN (BEAKER) 6.0 gm/dL 6.0-8.3 (test mjwm=955) ALBUMIN (BEAKER) (test 3.8 g/dL 3.5-5.0 wnyt=4826) ALKALINE PHOSPHATASE 147 U/L 40-150 (BEAKER) (test vcnh=871) BILIRUBIN TOTAL (BEAKER) 0.4 mg/dL 0.2-1.2 (test nnih=879) SODIUM (BEAKER) (test 137 meq/L 136-145 pwcv=857) POTASSIUM (BEAKER) (test 4.7 meq/L 3.5-5.1 rmkz=078) CHLORIDE (BEAKER) (test 101 meq/L 98-107 kqgp=186) CO2 (BEAKER) (test 26 meq/L 22-29 dwko=715) BLOOD UREA NITROGEN 43 mg/dL 7-21 (BEAKER) (test wvrh=580) CREATININE (BEAKER) (test 9.57 mg/dL 0.57-1.25 eiok=805) GLUCOSE RANDOM (BEAKER) 138 mg/dL 70-105 (test ciuj=726) CALCIUM (BEAKER) (test 9.1 mg/dL 8.4-10.2 mpde=576) AST (SGOT) (BEAKER) (test 28 U/L 5-34 oxtp=145) ALT (SGPT) (BEAKER) (test 38 U/L 6-55 dosf=384) EGFR (BEAKER) (test 5 mL/min/1.73 sq m ESTIMATED GFR IS NOT wvjr=5814) ACCURATE CREATININE CLEARANCE IN PREDICTING GLOMERULAR FILTRATION RATE. ESTIMATED GFR IS NOT APPLICABLE FOR DIALYSIS PATIENTS. Preparation Supervisor Freezing ID - OZZY [id number] 05:23:00 Test Item Value Reference Range Comments MAGNESIUM (BEAKER) (test wsuy=376) 2.8 mg/dL 1.6-2.6 Preparation Supervisor Freezing ID - OZZY WPROTHROMBIN TIME/[id number] 05:03:00 Test Item Value Reference Range Comments PROTIME (BEAKER) (test xawp=416) 13.7 seconds 11.9-14.2 INR (BEAKER) (test hprd=537) 1.1 <=5.9 Effective 01/30/2019: PT Reference Range ChangeNew: 11.9-14.2 Previous: 11.7- 14.7RECOMMENDED COUMADIN/WARFARIN INR THERAPY RANGESSTANDARD DOSE: 2.0-3.0 Includes: PROPHYLAXIS for venous thrombosis, systemic embolization; TREATMENT for venous thrombosis and/or pulmonary embolus.HIGH RISK: Target INR is2.5-3.5 for patients wiht mechanical heart valves.CBC W/PLT COUNT & AUTO [id number] 04:41:00 Test Item Value Reference Range Comments WHITE BLOOD CELL COUNT (BEAKER) (test tntr=065) 5.4 K/ L 3.5-10.5 RED BLOOD CELL COUNT (BEAKER) (test jspj=525) 2.71 M/ L 4.63-6.08 HEMOGLOBIN (BEAKER) (test gosl=706) 8.7 GM/DL 13.7-17.5 HEMATOCRIT (BEAKER) (test dluk=286) 26.6 % 40.1-51.0 MEAN CORPUSCULAR VOLUME (BEAKER) (test nrkh=339) 98.2 fL 79.0-92.2 MEAN CORPUSCULAR HEMOGLOBIN (BEAKER) (test 32.1 pg 25.7-32.2 qtcy=265) MEAN CORPUSCULAR HEMOGLOBIN CONC (BEAKER) (test 32.7 GM/DL 32.3-36.5 irlq=383) RED CELL DISTRIBUTION WIDTH (BEAKER) (test 15.3 % 11.6-14.4 lfki=942) PLATELET COUNT (BEAKER) (test ydhu=025) 157 K/CU MM 150-450 MEAN PLATELET VOLUME (BEAKER) (test akbe=087) 11.4 fL 9.4-12.4 NUCLEATED RED BLOOD CELLS (BEAKER) (test 0 /100 WBC 0-0 ckpc=788) NEUTROPHILS RELATIVE PERCENT (BEAKER) (test 57 % vkti=811) LYMPHOCYTES RELATIVE PERCENT (BEAKER) (test 30 % ktnq=670) MONOCYTES RELATIVE PERCENT (BEAKER) (test 9 % zkvx=296) EOSINOPHILS RELATIVE PERCENT (BEAKER) (test 2 % seoz=642) BASOPHILS RELATIVE PERCENT (BEAKER) (test 1 % qadb=890) NEUTROPHILS ABSOLUTE COUNT (BEAKER) (test 3.05 K/ L 1.78-5.38 bbpw=890) LYMPHOCYTES ABSOLUTE COUNT (BEAKER) (test 1.60 K/ L 1.32-3.57 fbwe=053) MONOCYTES ABSOLUTE COUNT (BEAKER) (test 0.50 K/ L 0.30-0.82 kdjt=383) EOSINOPHILS ABSOLUTE COUNT (BEAKER) (test 0.11 K/ L 0.04-0.54 wxfd=109) BASOPHILS ABSOLUTE COUNT (BEAKER) (test 0.05 K/ L 0.01-0.08 ytsw=205) IMMATURE GRANULOCYTES-RELATIVE PERCENT (BEAKER) 1 % 0-1 (test aefb=4540) POCT-GLUCOSE [id number] 22:22:00 Test Item Value Reference Range Comments POC-GLUCOSE METER (BEAKER) 153 mg/dL 70-110 : TESTED AT [facility] [address] [facility] (test cqas=0454) [facility], [address]: Preparation Supervisor Freezing/Tool And Die Manager [id number] for ANJALI [place] POCT-GLUCOSE [id number] 17:17:00 Test Item Value Reference Range Comments POC-GLUCOSE METER (BEAKER) 198 mg/dL 70-110 : TESTED AT [place] [id number] [facility] (test ljud=2919) [facility], [address]: Preparation Supervisor Freezing/Tool And Die Manager [id number] for SAIDA CRUZ POCT-GLUCOSE [id number] 12:44:00 Test Item Value Reference Range Comments POC-GLUCOSE METER (BEAKER) 185 mg/dL 70-110 : TESTED AT [address] (test amuq=4789) [facility], [address]: Preparation Supervisor Freezing/Tool And Die Manager [id number] for LENNOX AVILA [id number] 09:04:00 Test Item Value Reference Range Comments PARTIAL THROMBOPLASTIN TIME (BEAKER) (test 88.4 seconds 22.5-36.0 rvei=344) POCT-GLUCOSE [id number] 07:56:00 Test Item Value Reference Range Comments POC-GLUCOSE METER (BEAKER) 154 mg/dL 70-110 : TESTED AT [address] (test uhun=0273) [facility], [address]: Preparation Supervisor Freezing/Tool And Die Manager [id number] for LENNOX AVILA BASIC METABOLIC [id number] 04:36:00 Test Item Value Reference Range Comments SODIUM (BEAKER) (test 138 meq/L 136-145 bfoj=488) POTASSIUM (BEAKER) (test 4.6 meq/L 3.5-5.1 fxve=713) CHLORIDE (BEAKER) (test 103 meq/L 98-107 dkof=726) CO2 (BEAKER) (test 26 meq/L 22-29 oxnn=839) BLOOD UREA NITROGEN 31 mg/dL 7-21 (BEAKER) (test dywn=407) CREATININE (BEAKER) (test 7.45 mg/dL 0.57-1.25 lknx=229) GLUCOSE RANDOM (BEAKER) 175 mg/dL 70-105 (test vbcd=937) CALCIUM (BEAKER) (test 8.9 mg/dL 8.4-10.2 qgue=183) EGFR (BEAKER) (test 7 mL/min/1.73 sq m ESTIMATED GFR IS NOT gutn=3268) ACCURATE CREATININE CLEARANCE IN PREDICTING GLOMERULAR FILTRATION RATE. ESTIMATED GFR IS NOT APPLICABLE FOR DIALYSIS PATIENTS. Preparation Supervisor Freezing ID - [id number] (HEMOGRAM ONLY)2019-10-27 04:03:00 Test Item Value Reference Range Comments WHITE BLOOD CELL COUNT (BEAKER) (test nqcr=710) 4.3 K/ L 3.5-10.5 RED BLOOD CELL COUNT (BEAKER) (test cnol=558) 2.72 M/ L 4.63-6.08 HEMOGLOBIN (BEAKER) (test cjza=801) 8.6 GM/DL 13.7-17.5 HEMATOCRIT (BEAKER) (test ypzc=587) 26.8 % 40.1-51.0 MEAN CORPUSCULAR VOLUME (BEAKER) (test zbyh=033) 98.5 fL 79.0-92.2 MEAN CORPUSCULAR HEMOGLOBIN (BEAKER) (test 31.6 pg 25.7-32.2 ddut=885) MEAN CORPUSCULAR HEMOGLOBIN CONC (BEAKER) (test 32.1 GM/DL 32.3-36.5 abdu=447) RED CELL DISTRIBUTION WIDTH (BEAKER) (test 15.7 % 11.6-14.4 ikte=582) PLATELET COUNT (BEAKER) (test aegu=426) 150 K/CU MM 150-450 MEAN PLATELET VOLUME (BEAKER) (test wyme=839) 11.5 fL 9.4-12.4 NUCLEATED RED BLOOD CELLS (BEAKER) (test 0 /100 WBC 0-0 jlqh=191) [id number] 02:06:00 Test Item Value Reference Range Comments PARTIAL THROMBOPLASTIN TIME (BEAKER) (test 65.3 seconds 22.5-36.0 nlhi=321) POCT-GLUCOSE [id number] 22:33:00 Test Item Value Reference Range Comments POC-GLUCOSE METER (BEAKER) 164 mg/dL 70-110 : [facility] [address] [facility] (test fvfe=7601) [facility], [address]: Preparation Supervisor Freezing/Tool And Die Manager [id number] for ANJALI [place] [id number] 18:06:00 Test Item Value Reference Range Comments PARTIAL THROMBOPLASTIN TIME (BEAKER) (test 80.0 seconds 22.5-36.0 nxkd=431) [id number] 17:13:00 Test Item Value Reference Range Comments PARTIAL THROMBOPLASTIN TIME (BEAKER) (test 186.3 seconds 22.5-36.0 krrk=323) POCT-GLUCOSE [id number] 17:06:00 Test Item Value Reference Range Comments POC-GLUCOSE METER (BEAKER) 175 mg/dL 70-110 : TESTED AT [address] (test wfpz=1094) [facility], [address]: Preparation Supervisor Freezing/Tool And Die Manager [id number] for JONATHAN MACHADO POCT-GLUCOSE [id number] 12:28:00 Test Item Value Reference Range Comments POC-GLUCOSE METER (BEAKER) 136 mg/dL 70-110 : TESTED AT [address] (test umea=7212) [facility], [address]: Preparation Supervisor Freezing/Tool And Die Manager [id number] for JONATHAN MACHADO [id number] 10:47:00 Test Item Value Reference Range Comments PARTIAL THROMBOPLASTIN TIME (BEAKER) (test 102.9 seconds 22.5-36.0 ijsz=015) POCT-GLUCOSE [id number] 08:02:00 Test Item Value Reference Range Comments POC-GLUCOSE METER (BEAKER) 133 mg/dL 70-110 : TESTED AT [address] (test frjb=4591) [facility], [address]: Preparation Supervisor Freezing/Tool And Die Manager [id number] for JONATHAN MACHADO BASIC METABOLIC [id number] 04:18:00 Test Item Value Reference Range Comments SODIUM (BEAKER) (test 134 meq/L 136-145 eegz=417) POTASSIUM (BEAKER) (test 4.4 meq/L 3.5-5.1 tdfg=795) CHLORIDE (BEAKER) (test 96 meq/L 98-107 bqmv=445) CO2 (BEAKER) (test 26 meq/L 22-29 ksdr=773) BLOOD UREA NITROGEN 51 mg/dL 7-21 (BEAKER) (test cail=661) CREATININE (BEAKER) (test 10.02 mg/dL 0.57-1.25 syjx=044) GLUCOSE RANDOM (BEAKER) 148 mg/dL 70-105 (test tepa=557) CALCIUM (BEAKER) (test 8.9 mg/dL 8.4-10.2 rnep=868) EGFR (BEAKER) (test 5 mL/min/1.73 sq m ESTIMATED GFR IS NOT xptq=4790) ACCURATE CREATININE CLEARANCE IN PREDICTING GLOMERULAR FILTRATION RATE. ESTIMATED GFR IS NOT APPLICABLE FOR DIALYSIS PATIENTS. Preparation Supervisor Freezing ID - GERRY [id number] 03:54:00 Test Item Value Reference Range Comments PARTIAL THROMBOPLASTIN TIME (BEAKER) (test 76.6 seconds 22.5-36.0 uqnn=858) CBC (HEMOGRAM ONLY)2019-10-26 03:50:00 Test Item Value Reference Range Comments WHITE BLOOD CELL COUNT (BEAKER) (test zbdv=786) 4.6 K/ L 3.5-10.5 RED BLOOD CELL COUNT (BEAKER) (test woti=204) 2.87 M/ L 4.63-6.08 HEMOGLOBIN (BEAKER) (test hvom=001) 9.1 GM/DL 13.7-17.5 HEMATOCRIT (BEAKER) (test dyue=475) 27.6 % 40.1-51.0 MEAN CORPUSCULAR VOLUME (BEAKER) (test hfgt=340) 96.2 fL 79.0-92.2 MEAN CORPUSCULAR HEMOGLOBIN (BEAKER) (test 31.7 pg 25.7-32.2 xqdk=362) MEAN CORPUSCULAR HEMOGLOBIN CONC (BEAKER) (test 33.0 GM/DL 32.3-36.5 btet=364) RED CELL DISTRIBUTION WIDTH (BEAKER) (test 15.5 % 11.6-14.4 czvi=155) PLATELET COUNT (BEAKER) (test qzfy=449) 155 K/CU MM 150-450 MEAN PLATELET VOLUME (BEAKER) (test gdsp=914) 11.5 fL 9.4-12.4 NUCLEATED RED BLOOD CELLS (BEAKER) (test 0 /100 WBC 0-0 evcb=958) [id number] 22:02:00 Test Item Value Reference Range Comments PARTIAL THROMBOPLASTIN TIME (BEAKER) (test 64.5 seconds 22.5-36.0 wzon=634) POCT-GLUCOSE [id number] 21:44:00 Test Item Value Reference Range Comments POC-GLUCOSE METER (BEAKER) 129 mg/dL 70-110 : TESTED AT [facility] [address] [place] [address] (test fptc=0682) [facility], [address]: Preparation Supervisor Freezing/Tool And Die Manager [id number] for TERELL CROW [id number] 20:43:00 Test Item Value Reference Range Comments PARTIAL THROMBOPLASTIN TIME (BEAKER) (test 50.7 seconds 22.5-36.0 afxr=108) [id number] 17:02:00 Test Item Value Reference Range Comments PARTIAL THROMBOPLASTIN TIME (BEAKER) (test 192.2 seconds 22.5-36.0 fsst=519) POCT-GLUCOSE [id number] 16:58:00 Test Item Value Reference Range Comments POC-GLUCOSE METER (BEAKER) 131 mg/dL 70-110 : TESTED AT [address] (test wwni=0192) [facility], [address]: Preparation Supervisor Freezing/Tool And Die Manager [id number] for APARECE, ISAIAS POCT-GLUCOSE [id number] 14:57:00 Test Item Value Reference Range Comments POC-GLUCOSE METER (BEAKER) 170 mg/dL 70-110 : TESTED AT [address] (test nwtq=3518) [facility], [address]: Preparation Supervisor Freezing/Tool And Die Manager [id number] for TIPTON, CHULA POCT-GLUCOSE [id number] 10:15:00 Test Item Value Reference Range Comments POC-GLUCOSE METER (BEAKER) 170 mg/dL 70-110 : TESTED AT [address] (test bwtf=2101) [facility], [address]: Preparation Supervisor Freezing/Tool And Die Manager [id number] for TIPTON, CHULA BASIC METABOLIC [id number] 06:17:00 Test Item Value Reference Range Comments SODIUM (BEAKER) (test 134 meq/L 136-145 khvr=460) POTASSIUM (BEAKER) (test 4.4 meq/L 3.5-5.1 ycqu=430) CHLORIDE (BEAKER) (test 98 meq/L 98-107 znop=651) CO2 (BEAKER) (test 23 meq/L 22-29 rbxw=681) BLOOD UREA NITROGEN 38 mg/dL 7-21 (BEAKER) (test zost=378) CREATININE (BEAKER) (test 8.53 mg/dL 0.57-1.25 kpxi=118) GLUCOSE RANDOM (BEAKER) 146 mg/dL 70-105 (test fodv=635) CALCIUM (BEAKER) (test 9.4 mg/dL 8.4-10.2 zhio=270) EGFR (BEAKER) (test 6 mL/min/1.73 sq m ESTIMATED GFR IS NOT hhna=6507) ACCURATE CREATININE CLEARANCE IN PREDICTING GLOMERULAR FILTRATION RATE. ESTIMATED GFR IS NOT APPLICABLE FOR DIALYSIS PATIENTS. Preparation Supervisor Freezing ID - [id number] 06:08:00 Test Item Value Reference Range Comments PARTIAL THROMBOPLASTIN TIME (BEAKER) (test 58.6 seconds 22.5-36.0 ujci=955) CBC (HEMOGRAM ONLY)2019-10-25 05:44:00 Test Item Value Reference Range Comments WHITE BLOOD CELL COUNT (BEAKER) (test kwyy=660) 4.5 K/ L 3.5-10.5 RED BLOOD CELL COUNT (BEAKER) (test gmvy=887) 3.12 M/ L 4.63-6.08 HEMOGLOBIN (BEAKER) (test cnxk=607) 9.7 GM/DL 13.7-17.5 HEMATOCRIT (BEAKER) (test ikhq=338) 31.0 % 40.1-51.0 MEAN CORPUSCULAR VOLUME (BEAKER) (test wufg=043) 99.4 fL 79.0-92.2 MEAN CORPUSCULAR HEMOGLOBIN (BEAKER) (test 31.1 pg 25.7-32.2 ewdh=296) MEAN CORPUSCULAR HEMOGLOBIN CONC (BEAKER) (test 31.3 GM/DL 32.3-36.5 jcbf=534) RED CELL DISTRIBUTION WIDTH (BEAKER) (test 15.9 % 11.6-14.4 odpx=019) PLATELET COUNT (BEAKER) (test bxfd=338) 181 K/CU MM 150-450 MEAN PLATELET VOLUME (BEAKER) (test lwbp=260) 11.2 fL 9.4-12.4 NUCLEATED RED BLOOD CELLS (BEAKER) (test 0 /100 WBC 0-0 yotf=687) [id number] 01:00:00 Test Item Value Reference Range Comments PARTIAL THROMBOPLASTIN TIME (BEAKER) (test 76.0 seconds 22.5-36.0 jxry=556) POCT-GLUCOSE [id number] 23:53:00 Test Item Value Reference Range Comments POC-GLUCOSE METER (BEAKER) 166 mg/dL 70-110 : Notified RN/MD: TESTED AT (test qmae=7572) [facility] [address] [facility], [address]: Preparation Supervisor Freezing/Tool And Die Manager [id number] for KIAN CAMARGO POCT-GLUCOSE [id number] 19:04:00 Test Item Value Reference Range Comments POC-GLUCOSE METER (BEAKER) 191 mg/dL 70-110 : TESTED AT [address] (test bxlx=2112) [facility], [address]: Preparation Supervisor Freezing/Tool And Die Manager [id number] for MATTYTacosCHASE ELÍAS [id number] 18:02:00 Test Item Value Reference Range Comments PARTIAL THROMBOPLASTIN TIME (BEAKER) (test 62.3 seconds 22.5-36.0 mfdy=169) [id number] 12:39:00 Test Item Value Reference Range Comments PARTIAL THROMBOPLASTIN TIME (BEAKER) (test 47.8 seconds 22.5-36.0 odlz=809) Prior to initiating heparinPOCT-GLUCOSE [id number] 11:03:00 Test Item Value Reference Range Comments POC-GLUCOSE METER (BEAKER) 143 mg/dL 70-110 : TESTED AT [address] (test boxj=4087) [facility], [address]: Preparation Supervisor Freezing/Tool And Die Manager [id number] for Vinny Stark BASIC METABOLIC [id number] 07:38:00 Test Item Value Reference Range Comments SODIUM (BEAKER) (test 136 meq/L 136-145 kfxb=496) POTASSIUM (BEAKER) (test 5.3 meq/L 3.5-5.1 Specimen slightly mrdp=657) hemolyzed CHLORIDE (BEAKER) (test 100 meq/L 98-107 bydj=245) CO2 (BEAKER) (test 24 meq/L 22-29 ulps=330) BLOOD UREA NITROGEN 60 mg/dL 7-21 (BEAKER) (test uylx=781) CREATININE (BEAKER) (test 10.94 mg/dL 0.57-1.25 Specimen slightly idrz=359) hemolyzed GLUCOSE RANDOM (BEAKER) 104 mg/dL 70-105 (test eqpj=642) CALCIUM (BEAKER) (test 9.2 mg/dL 8.4-10.2 nrpm=712) EGFR (BEAKER) (test 5 mL/min/1.73 sq m ESTIMATED GFR IS NOT rztd=8920) ACCURATE CREATININE CLEARANCE IN PREDICTING GLOMERULAR FILTRATION RATE. ESTIMATED GFR IS NOT APPLICABLE FOR DIALYSIS PATIENTS. Preparation Supervisor Freezing ID - GALAPHEPATITIS B SURFACE [id number] 07:11:00 Test Item Value Reference Range Comments HEPATITIS B SURFACE ANTIGEN (2) (BEAKER) (test Nonreactive Nonreactive sxuz=1696) Preparation Supervisor Freezing ID - [id number] 06:42:00 Test Item Value Reference Range Comments PARTIAL THROMBOPLASTIN TIME (BEAKER) (test 46.7 seconds 22.5-36.0 mnqu=263) CBC (HEMOGRAM ONLY)2019-10-24 06:32:00 Test Item Value Reference Range Comments WHITE BLOOD CELL COUNT (BEAKER) (test fyvp=819) 6.3 K/ L 3.5-10.5 RED BLOOD CELL COUNT (BEAKER) (test bihe=319) 3.04 M/ L 4.63-6.08 HEMOGLOBIN (BEAKER) (test yuwp=137) 9.5 GM/DL 13.7-17.5 HEMATOCRIT (BEAKER) (test ucyv=598) 29.5 % 40.1-51.0 MEAN CORPUSCULAR VOLUME (BEAKER) (test njpz=709) 97.0 fL 79.0-92.2 MEAN CORPUSCULAR HEMOGLOBIN (BEAKER) (test 31.3 pg 25.7-32.2 vkmk=629) MEAN CORPUSCULAR HEMOGLOBIN CONC (BEAKER) (test 32.2 GM/DL 32.3-36.5 ueom=183) RED CELL DISTRIBUTION WIDTH (BEAKER) (test 16.0 % 11.6-14.4 ubiq=847) PLATELET COUNT (BEAKER) (test gcyk=365) 156 K/CU MM 150-450 MEAN PLATELET VOLUME (BEAKER) (test emai=212) 11.8 fL 9.4-12.4 NUCLEATED RED BLOOD CELLS (BEAKER) (test 0 /100 WBC 0-0 eyed=026) POCT-GLUCOSE [id number] 21:49:00 Test Item Value Reference Range Comments POC-GLUCOSE METER (BEAKER) 136 mg/dL 70-110 : Notified RN/MD: TESTED AT (test rwfl=5923) [facility] [address] [place] [address], [address]: Preparation Supervisor Freezing/Tool And Die Manager [id number] for KIAN CAMARGO POCT-GLUCOSE [id number] 19:27:00 Test Item Value Reference Range Comments POC-GLUCOSE METER (BEAKER) 114 mg/dL 70-110 : Notified RN/MD: TESTED AT (test mvpl=8252) [address], [address]: Preparation Supervisor Freezing/Tool And Die Manager [id number] for KIAN CAMARGO [id number] 16:15:00 Test Item Value Reference Range Comments ACTIVATED CLOTTING TIME 241 sec : 74-137 seconds, Baseline: (BEAKER) (test kzqq=392) TESTED AT [address], [address]: Preparation Supervisor Freezing/Tool And Die Manager [id number] for TALHA MAHARAJ [id number] 15:48:00 Test Item Value Reference Range Comments ACTIVATED CLOTTING TIME 147 sec : 74-137 seconds, Baseline: (BEAKER) (test nlgb=968) TESTED AT [address], [address]: Preparation Supervisor Freezing/Tool And Die Manager [id number] for NICKOROBB KANLEY POCT-GLUCOSE [id number] 12:05:00 Test Item Value Reference Range Comments POC-GLUCOSE METER (BEAKER) 154 mg/dL 70-110 : TESTED AT [address] (test rwjx=1778) [facility], [address]: Preparation Supervisor Freezing/Tool And Die Manager [id number] for Nj, Alfredo POCT-GLUCOSE [id number] 07:41:00 Test Item Value Reference Range Comments POC-GLUCOSE METER (BEAKER) 144 mg/dL 70-110 : TESTED AT [address] (test zepu=2435) [facility], [address]: Preparation Supervisor Freezing/Tool And Die Manager [id number] for Katja Njlon TROPONIN [id number] 07:06:00 Test Item Value Reference Range Comments TROPONIN I (BEAKER) (test vtoa=440) 10.76 ng/mL 0.00-0.03 Troponin I (TnI) levels must [...] failure, acidosis, acute neurological disease, and persistent tachyarrhythmia.Preparation Supervisor Freezing ID - GERRY [id number] 06:37 :00 Test Item Value Reference Range Comments PARTIAL THROMBOPLASTIN TIME (BEAKER) (test 54.6 seconds 22.5-36.0 mlje=267) CBC (HEMOGRAM ONLY)2019-10-23 06:22:00 Test Item Value Reference Range Comments WHITE BLOOD CELL COUNT (BEAKER) (test zipx=466) 7.0 K/ L 3.5-10.5 RED BLOOD CELL COUNT (BEAKER) (test udba=615) 3.06 M/ L 4.63-6.08 HEMOGLOBIN (BEAKER) (test jhan=051) 9.7 GM/DL 13.7-17.5 HEMATOCRIT (BEAKER) (test xclb=611) 29.9 % 40.1-51.0 MEAN CORPUSCULAR VOLUME (BEAKER) (test hhbp=639) 97.7 fL 79.0-92.2 MEAN CORPUSCULAR HEMOGLOBIN (BEAKER) (test 31.7 pg 25.7-32.2 ycnc=727) MEAN CORPUSCULAR HEMOGLOBIN CONC (BEAKER) (test 32.4 GM/DL 32.3-36.5 ibpr=854) RED CELL DISTRIBUTION WIDTH (BEAKER) (test 16.0 % 11.6-14.4 avgq=426) PLATELET COUNT (BEAKER) (test lmma=742) 156 K/CU MM 150-450 MEAN PLATELET VOLUME (BEAKER) (test jpqn=269) 11.1 fL 9.4-12.4 NUCLEATED RED BLOOD CELLS (BEAKER) (test 0 /100 WBC 0-0 zqdo=570) TROPONIN [id number] 00:49:00 Test Item Value Reference Range Comments TROPONIN I (BEAKER) (test uvqr=449) 6.38 ng/mL 0.00-0.03 Troponin I (TnI) levels must [...] failure, acidosis, acute neurological disease, and persistent tachyarrhythmia.Preparation Supervisor Freezing ID - [id number] 22:52:00 Test Item Value Reference Range Comments PARTIAL THROMBOPLASTIN TIME (EMMA) (test 33.8 seconds 22.5-36.0 sqcc=857) Prior to initiating heparinPLATELET [id number] 22:44:00 Test Item Value Reference Range Comments PLATELET COUNT (EMMA) (test shjm=434) 152 K/CU MM 150-450 Preparation Supervisor Freezing ID - 6000TROPONIN [id number] 20:56:00 Test Item Value Reference Range Comments TROPONIN I (EMMA) (test nmyn=860) 5.06 ng/mL 0.00-0.03 Troponin I (TnI) levels must [...] failure, acidosis, acute neurological disease, and persistent tachyarrhythmia.Preparation Supervisor Freezing ID - DBPOCT-GLUCOSE [id number] 20:26:00 Test Item Value Reference Range Comments POC-GLUCOSE METER ([employer]) 129 mg/dL 70-110 : TESTED AT [facility] [address] [facility] (test gklv=2218) [facility], [address]: Preparation Supervisor Freezing/Tool And Die Manager [id number] for OTILIA YOUSIF TROPONIN [id number] 13:12:00 Test Item Value Reference Range Comments TROPONIN I (HÉCTOR) (test azap=751) 0.36 ng/mL 0.00-0.03 Troponin I (TnI) levels must [...] failure, acidosis, acute neurological disease, and persistent tachyarrhythmia.Preparation Supervisor Freezing ID - SALONI FB-TYPE NATRIURETIC FACTOR (BNP)2019-10-22 13:06:00 Test Item Value Reference Range Comments B-TYPE NATRIURETIC PEPTIDE (BEAKER) (test 106 pg/mL 0-100 plsp=141) Preparation Supervisor Freezing ID Tacos GUALLPA FBASIC METABOLIC [id number] 13:05:00 Test Item Value Reference Range Comments SODIUM (BEAKER) (test 138 meq/L 136-145 ttav=586) POTASSIUM (BEAKER) (test 4.8 meq/L 3.5-5.1 rgbo=407) CHLORIDE (BEAKER) (test 100 meq/L 98-107 bdvj=310) CO2 (BEAKER) (test 26 meq/L 22-29 gihw=944) BLOOD UREA NITROGEN 38 mg/dL 7-21 (BEAKER) (test fjuo=193) CREATININE (BEAKER) (test 8.23 mg/dL 0.57-1.25 vxpw=740) GLUCOSE RANDOM (BEAKER) 259 mg/dL 70-105 (test mxtm=652) CALCIUM (BEAKER) (test 10.1 mg/dL 8.4-10.2 okah=297) EGFR (BEAKER) (test 7 mL/min/1.73 sq m ESTIMATED GFR IS NOT plrp=7447) ACCURATE CREATININE CLEARANCE IN PREDICTING GLOMERULAR FILTRATION RATE. ESTIMATED GFR IS NOT APPLICABLE FOR DIALYSIS PATIENTS. Preparation Supervisor Freezing ID Tacos GUALLPA [id number] 13:02:00 Test Item Value Reference Range Comments MAGNESIUM (BEAKER) (test oqqj=380) 2.8 mg/dL 1.6-2.6 Preparation Supervisor Freezing ID Tacos GUALLPA FHEPATIC FUNCTION [id number] 13:02:00 Test Item Value Reference Range Comments TOTAL PROTEIN (BEAKER) (test dsdp=595) 7.0 gm/dL 6.0-8.3 ALBUMIN (BEAKER) (test dupb=7555) 4.4 g/dL 3.5-5.0 BILIRUBIN TOTAL (BEAKER) (test rfjk=009) 0.8 mg/dL 0.2-1.2 BILIRUBIN DIRECT (BEAKER) (test jojc=929) 0.2 mg/dL 0.1-0.5 ALKALINE PHOSPHATASE (BEAKER) (test iobe=588) 212 U/L 40-150 AST (SGOT) (BEAKER) (test gveb=152) 19 U/L 5-34 ALT (SGPT) (BEAKER) (test tixt=126) 28 U/L 6-55 Preparation Supervisor Freezing ID Tacos GUALLPA [id number] 13:02:00 Test Item Value Reference Range Comments LIPASE (BEAKER) (test kgtp=144) 49 U/L 8-78 Preparation Supervisor Freezing ID Tacos GUALLPA FCBC W/PLT COUNT & AUTO [id number] 12:45: 00 Test Item Value Reference Range Comments WHITE BLOOD CELL COUNT (BEAKER) (test dqpg=321) 5.4 K/ L 3.5-10.5 RED BLOOD CELL COUNT (BEAKER) (test csxm=531) 3.39 M/ L 4.63-6.08 HEMOGLOBIN (BEAKER) (test egvg=214) 10.5 GM/DL 13.7-17.5 HEMATOCRIT (BEAKER) (test amdc=527) 33.3 % 40.1-51.0 MEAN CORPUSCULAR VOLUME (BEAKER) (test svkl=621) 98.2 fL 79.0-92.2 MEAN CORPUSCULAR HEMOGLOBIN (BEAKER) (test 31.0 pg 25.7-32.2 brlu=565) MEAN CORPUSCULAR HEMOGLOBIN CONC (BEAKER) (test 31.5 GM/DL 32.3-36.5 nhux=871) RED CELL DISTRIBUTION WIDTH (BEAKER) (test 16.2 % 11.6-14.4 nbkz=581) PLATELET COUNT (BEAKER) (test jhmq=884) 170 K/CU MM 150-450 MEAN PLATELET VOLUME (BEAKER) (test vddy=746) 11.0 fL 9.4-12.4 NUCLEATED RED BLOOD CELLS (BEAKER) (test 0 /100 WBC 0-0 xgqq=137) NEUTROPHILS RELATIVE PERCENT (BEAKER) (test 66 % imrj=782) LYMPHOCYTES RELATIVE PERCENT (BEAKER) (test 22 % left=543) MONOCYTES RELATIVE PERCENT (BEAKER) (test 7 % gspx=522) EOSINOPHILS RELATIVE PERCENT (BEAKER) (test 2 % dwdz=258) BASOPHILS RELATIVE PERCENT (BEAKER) (test 1 % kczy=598) NEUTROPHILS ABSOLUTE COUNT (BEAKER) (test 3.60 K/ L 1.78-5.38 eqwn=218) LYMPHOCYTES ABSOLUTE COUNT (BEAKER) (test 1.22 K/ L 1.32-3.57 qywr=238) MONOCYTES ABSOLUTE COUNT (BEAKER) (test 0.40 K/ L 0.30-0.82 atxf=752) EOSINOPHILS ABSOLUTE COUNT (BEAKER) (test 0.13 K/ L 0.04-0.54 hejw=755) BASOPHILS ABSOLUTE COUNT (BEAKER) (test 0.04 K/ L 0.01-0.08 jmsn=619) IMMATURE GRANULOCYTES-RELATIVE PERCENT (BEAKER) 1 % 0-1 (test yjsz=8768) RAD, CHEST, 1 VIEW, NON [id number] 12:23:00Reason for exam:->CHEST PAINFINAL REPORT Chest, one view History: chest pain Comparison: 04/30/2019 Findings:Clear lungs. Normal size heart. No pleural effusion or pneumothorax. Cardiac pacer in place. Impression:No acute findings in the chest Signed: Ivan Milan Verified Date/Time: 10/22/2019 12 :23:16 Reading Location: [facility] Radiology Reading Room POCT-GLUCOSE [id number] 11:51: 00 Test Item Value Reference Range Comments POC-GLUCOSE METER (BEAKER) 279 mg/dL 70-110 TESTED AT [address] (test iyzj=7558) [facility] [id number] CBC W/PLT COUNT & AUTO [id number] 11:50:00 Test Item Value Reference Range Comments WHITE BLOOD CELL COUNT (BEAKER) (test xfdr=859) 10.1 K/ L 3.5-10.5 RED BLOOD CELL COUNT (BEAKER) (test kjcv=105) 2.96 M/ L 4.63-6.08 HEMOGLOBIN (BEAKER) (test qfte=645) 9.3 GM/DL 13.7-17.5 HEMATOCRIT (BEAKER) (test qyje=458) 28.6 % 40.1-51.0 MEAN CORPUSCULAR VOLUME (BEAKER) (test mftn=173) 96.6 fL 79.0-92.2 MEAN CORPUSCULAR HEMOGLOBIN (BEAKER) (test 31.4 pg 25.7-32.2 nyeo=625) MEAN CORPUSCULAR HEMOGLOBIN CONC (BEAKER) (test 32.5 GM/DL 32.3-36.5 slac=926) RED CELL DISTRIBUTION WIDTH (BEAKER) (test 15.3 % 11.6-14.4 kvwc=829) PLATELET COUNT (BEAKER) (test ogei=242) 130 K/CU MM 150-450 MEAN PLATELET VOLUME (BEAKER) (test ngun=397) 12.1 fL 9.4-12.4 NUCLEATED RED BLOOD CELLS (BEAKER) (test 0 /100 WBC 0-0 stgn=078) NEUTROPHILS RELATIVE PERCENT (BEAKER) (test 80 % sbpg=269) LYMPHOCYTES RELATIVE PERCENT (BEAKER) (test 7 % ixvc=648) MONOCYTES RELATIVE PERCENT (BEAKER) (test 7 % yfyb=992) EOSINOPHILS RELATIVE PERCENT (BEAKER) (test 2 % eark=228) BASOPHILS RELATIVE PERCENT (BEAKER) (test 0 % bajs=943) NEUTROPHILS ABSOLUTE COUNT (BEAKER) (test 8.06 K/ L 1.78-5.38 uqwf=984) LYMPHOCYTES ABSOLUTE COUNT (BEAKER) (test 0.70 K/ L 1.32-3.57 qmvx=331) MONOCYTES ABSOLUTE COUNT (BEAKER) (test 0.75 K/ L 0.30-0.82 uplc=052) EOSINOPHILS ABSOLUTE COUNT (BEAKER) (test 0.15 K/ L 0.04-0.54 hpgd=154) BASOPHILS ABSOLUTE COUNT (BEAKER) (test 0.02 K/ L 0.01-0.08 pzxz=374) IMMATURE GRANULOCYTES-RELATIVE PERCENT (BEAKER) 4 % 0-1 (test wwmb=0464) BASIC METABOLIC [id number] 10:56:00 Test Item Value Reference Range Comments SODIUM (BEAKER) (test 134 meq/L 136-145 rixv=960) POTASSIUM (BEAKER) (test 5.3 meq/L 3.5-5.1 xhrl=904) CHLORIDE (BEAKER) (test 97 meq/L 98-107 npfv=323) CO2 (BEAKER) (test 22 meq/L 22-29 jxyl=023) BLOOD UREA NITROGEN 81 mg/dL 7-21 (BEAKER) (test ymgi=355) CREATININE (BEAKER) (test 8.20 mg/dL 0.57-1.25 znvi=005) GLUCOSE RANDOM (BEAKER) 365 mg/dL 70-105 (test tprw=579) CALCIUM (BEAKER) (test 8.4 mg/dL 8.4-10.2 rxvg=552) EGFR (BEAKER) (test 7 mL/min/1.73 sq m ESTIMATED GFR IS NOT bxmb=0516) ACCURATE CREATININE CLEARANCE IN PREDICTING GLOMERULAR FILTRATION RATE. ESTIMATED GFR IS NOT APPLICABLE FOR DIALYSIS PATIENTS. RAD, CHEST, 1 VIEW, NON [id number] 08:58:00Reason for exam:->Post device placementShould this be performed at the bedside?->YesFINAL REPORT RAD, CHEST, 1 VIEW, NON DEPT INDICATION: Post device placement COMPARISON: Prior day's exam FINDINGS: Portable frontal view of the chest. IMPRESSION: Support Lines: Stable. Lungs and pleura: Unchanged airspace and pleural opacities. No pneumothorax.Heart and mediastinum: Stable contours. Stable surgical changes.Additional findings: None. Signed: Dasia Last Verified Date/Time: 04/30/2019 08:58:17 Reading Location: [facility] Reading Room POCT-GLUCOSE [id number] 08:16:00 Test Item Value Reference Range Comments POC-GLUCOSE METER (EMMA) 342 mg/dL 70-110 TESTED AT [address] (test fykc=9569) [facility] [id number] RAD, CHEST, 1 VIEW, NON [id number] 06:14:00Reason for exam:->post device placementShould this be [...] Vascular stent over the left axilla. Signed: Sigrid Vieyra Verified Date/Time: 04/30/2019 06:14:19 Reading Location: [address] Reading Room POCT-GLUCOSE [id number] 01:09:00 Test Item Value Reference Range Comments POC-GLUCOSE METER (BEAKER) 187 mg/dL 70-110 TESTED AT [address] (test slpx=4697) [facility] [address] POCT-GLUCOSE [id number] 20:12:00 Test Item Value Reference Range Comments POC-GLUCOSE METER (BEAKER) 175 mg/dL 70-110 TESTED AT [address] (test jpjh=3885) [place] [id number] POCT-GLUCOSE [id number] 17:34:00 Test Item Value Reference Range Comments POC-GLUCOSE METER (BEAKER) 88 mg/dL 70-110 TESTED AT [address] (test cdtb=2893) [place] [id number] POCT-GLUCOSE [id number] 13:28:00 Test Item Value Reference Range Comments POC-GLUCOSE METER (BEAKER) 131 mg/dL 70-110 TESTED AT [address] (test gvde=5959) [place] [address] RHEUMATOID FACTOR AB, REFLEX TO [id number] 11:35:00 Test Item Value Reference Range Comments RHEUMATOID FACTOR (BEAKER) (test yvhq=998) Positive RHEUMATOID FACTOR [id number] 11:35:00 Test Item Value Reference Range Comments RHEUMATOID FACTOR TITER (BEAKER) (test zdxx=4952) :4 ANTI-NUCLEAR ANTIBODY (MARIAN)2019-04-29 10:25:00 Test Item Value Reference Range Comments ANTI-NUCLEAR ANTIBODY (MARIAN) (BEAKER) (test Negative Negative crsp=443) Test performed by IFA method.Test performed by IFA method.BASIC METABOLIC [id number] 09:43:00 Test Item Value Reference Range Comments SODIUM (BEAKER) (test 132 meq/L 136-145 hxqg=465) POTASSIUM (BEAKER) (test 5.1 meq/L 3.5-5.1 wbsp=074) CHLORIDE (BEAKER) (test 95 meq/L 98-107 cqbd=989) CO2 (BEAKER) (test 21 meq/L 22-29 fbsm=806) BLOOD UREA NITROGEN 111 mg/dL 7-21 (BEAKER) (test wvmy=900) CREATININE (BEAKER) (test 9.82 mg/dL 0.57-1.25 cnss=133) GLUCOSE RANDOM (BEAKER) 163 mg/dL 70-105 (test cuig=436) CALCIUM (BEAKER) (test 8.5 mg/dL 8.4-10.2 pymg=534) EGFR (BEAKER) (test 5 mL/min/1.73 sq m ESTIMATED GFR IS NOT rkkn=9369) ACCURATE CREATININE CLEARANCE IN PREDICTING GLOMERULAR FILTRATION RATE. ESTIMATED GFR IS NOT APPLICABLE FOR DIALYSIS PATIENTS. CBC W/PLT COUNT & AUTO [id number] 09:22:00 Test Item Value Reference Range Comments WHITE BLOOD CELL COUNT (BEAKER) (test ryay=828) 12.1 K/ L 3.5-10.5 RED BLOOD CELL COUNT (BEAKER) (test uphf=172) 2.97 M/ L 4.63-6.08 HEMOGLOBIN (BEAKER) (test alkr=737) 9.2 GM/DL 13.7-17.5 HEMATOCRIT (BEAKER) (test zpan=302) 28.4 % 40.1-51.0 MEAN CORPUSCULAR VOLUME (BEAKER) (test anmg=825) 95.6 fL 79.0-92.2 MEAN CORPUSCULAR HEMOGLOBIN (BEAKER) (test 31.0 pg 25.7-32.2 uhbi=222) MEAN CORPUSCULAR HEMOGLOBIN CONC (BEAKER) (test 32.4 GM/DL 32.3-36.5 iuty=611) RED CELL DISTRIBUTION WIDTH (BEAKER) (test 14.6 % 11.6-14.4 dpvg=071) PLATELET COUNT (BEAKER) (test aolv=489) 168 K/CU MM 150-450 MEAN PLATELET VOLUME (BEAKER) (test oeqh=950) 12.1 fL 9.4-12.4 NUCLEATED RED BLOOD CELLS (BEAKER) (test 0 /100 WBC 0-0 tffh=077) NEUTROPHILS RELATIVE PERCENT (BEAKER) (test 77 % garq=117) LYMPHOCYTES RELATIVE PERCENT (BEAKER) (test 10 % omqv=083) MONOCYTES RELATIVE PERCENT (BEAKER) (test 6 % gipm=231) EOSINOPHILS RELATIVE PERCENT (BEAKER) (test 1 % pipc=327) BASOPHILS RELATIVE PERCENT (BEAKER) (test 0 % fkvu=207) NEUTROPHILS ABSOLUTE COUNT (BEAKER) (test 9.33 K/ L 1.78-5.38 vpwt=750) LYMPHOCYTES ABSOLUTE COUNT (BEAKER) (test 1.25 K/ L 1.32-3.57 efbm=810) MONOCYTES ABSOLUTE COUNT (BEAKER) (test 0.76 K/ L 0.30-0.82 zenn=048) EOSINOPHILS ABSOLUTE COUNT (BEAKER) (test 0.14 K/ L 0.04-0.54 ilhl=624) BASOPHILS ABSOLUTE COUNT (BEAKER) (test 0.02 K/ L 0.01-0.08 ysxx=405) IMMATURE GRANULOCYTES-RELATIVE PERCENT (BEAKER) 5 % 0-1 (test kvfn=7768) PROTHROMBIN TIME/[id number] 09:20:00 Test Item Value Reference Range Comments PROTIME (BEAKER) (test aiue=918) 14.9 seconds 11.9-14.2 INR (BEAKER) (test payx=350) 1.2 <=5.9 Effective 01/30/2019: PT Reference Range ChangeNew: 11.9-14.2 Previous: 11.7- 14.7RECOMMENDED COUMADIN/WARFARIN INR THERAPY RANGESSTANDARD DOSE: 2.0-3.0 Includes: PROPHYLAXIS for venous thrombosis, systemic embolization; TREATMENT for venous thrombosis and/or pulmonary embolus.HIGH RISK: Target INR is2.5-3.5 for patients wiht mechanical heart valves.Within 24 hours, if on CoumadinPOCT- GLUCOSE [id number] 07:57:00 Test Item Value Reference Range Comments POC-GLUCOSE METER (BEAKER) 183 mg/dL 70-110 TESTED AT [address] (test ipdt=5250) [facility] [address] POCT-GLUCOSE [id number] 21:30:00 Test Item Value Reference Range Comments POC-GLUCOSE METER (BEAKER) 326 mg/dL 70-110 Will Repeat Test/TESTED AT (test zmjw=8402) [address] [address] POCT-GLUCOSE [id number] 17:47:00 Test Item Value Reference Range Comments POC-GLUCOSE METER (BEAKER) 332 mg/dL 70-110 TESTED AT [address] (test hnpv=0192) [facility] [address] POCT-GLUCOSE [id number] 11:54:00 Test Item Value Reference Range Comments POC-GLUCOSE METER (BEAKER) 171 mg/dL 70-110 TESTED AT [place] [id number] [facility] (test nouj=6234) [facility] [address] POCT-GLUCOSE [id number] 08:21:00 Test Item Value Reference Range Comments POC-GLUCOSE METER (BEAKER) 171 mg/dL 70-110 TESTED AT [address] (test mhji=3740) [facility] [address] CBC W/PLT COUNT & AUTO [id number] 07:27:00 Test Item Value Reference Range Comments WHITE BLOOD CELL COUNT (BEAKER) (test mkap=538) 13.7 K/ L 3.5-10.5 RED BLOOD CELL COUNT (BEAKER) (test aezf=974) 2.93 M/ L 4.63-6.08 HEMOGLOBIN (BEAKER) (test rqvr=883) 9.3 GM/DL 13.7-17.5 HEMATOCRIT (BEAKER) (test rwxv=648) 28.0 % 40.1-51.0 MEAN CORPUSCULAR VOLUME (BEAKER) (test tbvf=743) 95.6 fL 79.0-92.2 MEAN CORPUSCULAR HEMOGLOBIN (BEAKER) (test 31.7 pg 25.7-32.2 mvcp=804) MEAN CORPUSCULAR HEMOGLOBIN CONC (BEAKER) (test 33.2 GM/DL 32.3-36.5 vtac=918) RED CELL DISTRIBUTION WIDTH (BEAKER) (test 14.6 % 11.6-14.4 twpz=355) PLATELET COUNT (BEAKER) (test ntyo=735) 167 K/CU MM 150-450 MEAN PLATELET VOLUME (BEAKER) (test akyt=010) 12.3 fL 9.4-12.4 NUCLEATED RED BLOOD CELLS (BEAKER) (test 0 /100 WBC 0-0 wset=565) (CELLAVISION MANUAL DIFF)2019-04-28 07:27:00 Test Item Value Reference Range Comments NEUTROPHILS - REL (CELLAVISION)(BEAKER) (test 88 % gvjd=7814) LYMPHOCYTES - REL (CELLAVISION)(BEAKER) (test 7 % zydt=6863) MONOCYTES - REL (CELLAVISION)(BEAKER) (test 5 % tmcn=0650) NEUTROPHILS - ABS (CELLAVISION)(BEAKER) (test 12.06 K/ul 1.78-5.38 ouzp=8525) LYMPHOCYTES - ABS (CELLAVISION)(BEAKER) (test 0.96 K/ul 1.32-3.57 pwct=9681) MONOCYTES - ABS (CELLAVISION)(BEAKER) (test 0.69 K/uL 0.30-0.82 qfed=0598) TOTAL COUNTED (BEAKER) (test hcot=8347) 100 WBC MORPHOLOGY (BEAKER) (test soxp=107) Normal LARGE PLT(BEAKER) (test zprx=8933) Present POLYCHROMATOPHILLIC RBCS(BEAKER) (test nglj=341) 1+ few HYPOCHROMIA (BEAKER) (test xixx=433) 1+ few ARTIFACT (CELLAVISION)(BEAKER) (test emqk=4923) Present PLATELET CONCENTRATION (CELLAVISION)(BEAKER) Adequate (test vkye=3989) Received comment: User comments: Slide comments:BASIC METABOLIC [id number] 05:54:00 Test Item Value Reference Range Comments SODIUM (BEAKER) (test 132 meq/L 136-145 ywcx=558) POTASSIUM (BEAKER) (test 4.9 meq/L 3.5-5.1 xcdb=472) CHLORIDE (BEAKER) (test 96 meq/L 98-107 krsc=464) CO2 (BEAKER) (test 22 meq/L 22-29 vqpa=451) BLOOD UREA NITROGEN 92 mg/dL 7-21 (BEAKER) (test yvpd=931) CREATININE (BEAKER) (test 7.77 mg/dL 0.57-1.25 vrex=369) GLUCOSE RANDOM (BEAKER) 150 mg/dL 70-105 (test tjop=542) CALCIUM (BEAKER) (test 8.7 mg/dL 8.4-10.2 oxkb=796) EGFR (BEAKER) (test 7 mL/min/1.73 sq m ESTIMATED GFR IS NOT oyne=9743) ACCURATE CREATININE CLEARANCE IN PREDICTING GLOMERULAR FILTRATION RATE. ESTIMATED GFR IS NOT APPLICABLE FOR DIALYSIS PATIENTS. POCT-GLUCOSE [id number] 21:28:00 Test Item Value Reference Range Comments POC-GLUCOSE METER (BEAKER) 296 mg/dL 70-110 TESTED AT [facility] [address] [facility] (test lmtw=6923) [facility] [address] POCT-GLUCOSE [id number] 17:32:00 Test Item Value Reference Range Comments POC-GLUCOSE METER (BEAKER) 330 mg/dL 70-110 TESTED AT [facility] [address] (test zavu=3026) [facility] [address] CBC W/PLT COUNT & AUTO [id number] 16:02:00 Test Item Value Reference Range Comments WHITE BLOOD CELL COUNT (BEAKER) (test hqwy=973) 12.5 K/ L 3.5-10.5 RED BLOOD CELL COUNT (BEAKER) (test fxup=186) 2.91 M/ L 4.63-6.08 HEMOGLOBIN (BEAKER) (test plto=703) 9.2 GM/DL 13.7-17.5 HEMATOCRIT (BEAKER) (test qzap=985) 28.4 % 40.1-51.0 MEAN CORPUSCULAR VOLUME (BEAKER) (test lodb=901) 97.6 fL 79.0-92.2 MEAN CORPUSCULAR HEMOGLOBIN (BEAKER) (test 31.6 pg 25.7-32.2 opzh=861) MEAN CORPUSCULAR HEMOGLOBIN CONC (BEAKER) (test 32.4 GM/DL 32.3-36.5 vksj=176) RED CELL DISTRIBUTION WIDTH (BEAKER) (test 14.5 % 11.6-14.4 tmka=656) PLATELET COUNT (BEAKER) (test bmho=039) 162 K/CU MM 150-450 MEAN PLATELET VOLUME (BEAKER) (test kcxe=723) 12.5 fL 9.4-12.4 NUCLEATED RED BLOOD CELLS (BEAKER) (test 0 /100 WBC 0-0 rhds=679) (CELLAVISION MANUAL DIFF)2019-04-27 16:02:00 Test Item Value Reference Range Comments NEUTROPHILS - REL (CELLAVISION)(BEAKER) (test 87 % hezu=9359) LYMPHOCYTES - REL (CELLAVISION)(BEAKER) (test 7 % llzu=6929) MONOCYTES - REL (CELLAVISION)(BEAKER) (test 6 % huxu=0808) NEUTROPHILS - ABS (CELLAVISION)(BEAKER) (test 10.88 K/ul 1.78-5.38 aoha=7863) LYMPHOCYTES - ABS (CELLAVISION)(BEAKER) (test 0.88 K/ul 1.32-3.57 ywjf=0172) MONOCYTES - ABS (CELLAVISION)(BEAKER) (test 0.75 K/uL 0.30-0.82 gtrg=3417) TOTAL COUNTED (BEAKER) (test pksg=1513) 100 WBC MORPHOLOGY (BEAKER) (test zigo=394) Normal GIANT PLATELETS (BEAKER) (test gjia=545) Present POLYCHROMATOPHILLIC RBCS(BEAKER) (test zhuq=179) 1+ few HYPOCHROMIA (BEAKER) (test irki=754) 1+ few ANISOCYTOSIS (BEAKER) (test qadv=564) 1+ few MACROCYTES (BEAKER) (test juxc=506) 1+ few POIKILOCYTES (BEAKER) (test rpnf=543) 2+ moderate OVALOCYTES (BEAKER) (test edsb=578) 2+ moderate TEAR DROP CELLS (BEAKER) (test dxtk=836) 1+ few TONI CELLS (BEAKER) (test rnxz=335) 2+ moderate ARTIFACT (CELLAVISION)(BEAKER) (test dqjz=4530) Present PLATELET CONCENTRATION (CELLAVISION)(BEAKER) Adequate (test fdye=2522) Received comment: User comments: Slide comments:POCT-GLUCOSE [id number] 11: 35:00 Test Item Value Reference Range Comments POC-GLUCOSE METER (BEAKER) 248 mg/dL 70-110 TESTED AT [facility] [address] [facility] (test gmvk=2437) [facility] [address] T4, [id number] 08:58:00 Test Item Value Reference Range Comments FREE T4 (BEAKER) (test ryvp=322) 1.29 ng/dL 0.70-1.48 HEMOGLOBIN [id number] 08:50:00 Test Item Value Reference Range Comments HEMOGLOBIN A1C (BEAKER) (test yiww=151) 7.4 % 4.3-6.1 LIPID [id number] 08:07:00 Test Item Value Reference Range Comments TRIGLYCERIDES (BEAKER) (test zhdw=863) 115 mg/dL CHOLESTEROL (BEAKER) (test zsbb=329) 114 mg/dL HDL CHOLESTEROL (BEAKER) (test uucx=132) 56 mg/dL LDL CHOLESTEROL CALCULATED (BEAKER) (test 35 mg/dL szow=900) Triglyceride Reference Range: Low Risk <150 Borderline 150- 199 High Risk 200-499 Very High Risk >=500Cholesterol Reference Range: Low Risk <200 Borderline 200-239 High Risk > 240HDL Cholesterol Reference Range: Low Risk >=60 High Risk <40LDL Cholesterol Reference Range: Optimal <100 Near Optimal 100-129 Borderline 130-159 High 160-189 Very High >=190BASIC METABOLIC [id number] 08:07:00 Test Item Value Reference Range Comments SODIUM (BEAKER) (test 131 meq/L 136-145 rkmr=156) POTASSIUM (BEAKER) (test 4.9 meq/L 3.5-5.1 felx=718) CHLORIDE (BEAKER) (test 96 meq/L 98-107 urbo=974) CO2 (BEAKER) (test 24 meq/L 22-29 zssy=584) BLOOD UREA NITROGEN 56 mg/dL 7-21 (BEAKER) (test cbsv=633) CREATININE (BEAKER) (test 6.09 mg/dL 0.57-1.25 rhyd=396) GLUCOSE RANDOM (BEAKER) 282 mg/dL 70-105 (test kzqp=015) CALCIUM (BEAKER) (test 8.6 mg/dL 8.4-10.2 rftq=000) EGFR (BEAKER) (test 9 mL/min/1.73 sq m ESTIMATED GFR IS NOT yvjj=1444) ACCURATE CREATININE CLEARANCE IN PREDICTING GLOMERULAR FILTRATION RATE. ESTIMATED GFR IS NOT APPLICABLE FOR DIALYSIS PATIENTS. TSH/FREE T4 IF [id number] 08:04:00 Test Item Value Reference Range Comments THYROID STIMULATING HORMONE (BEAKER) (test 0.06 uIU/mL 0.35-4.94 vjcb=853) POCT-GLUCOSE [id number] 07:38:00 Test Item Value Reference Range Comments POC-GLUCOSE METER (BEAKER) 316 mg/dL 70-110 TESTED AT [address] (test doem=7556) [facility] [address] POCT-GLUCOSE [id number] 21:22:00 Test Item Value Reference Range Comments POC-GLUCOSE METER (BEAKER) 194 mg/dL 70-110 TESTED AT [address] (test jgpj=4483) [facility] [address] CBC W/PLT COUNT & AUTO [id number] 19:30:00 Test Item Value Reference Range Comments WHITE BLOOD CELL COUNT (BEAKER) (test jkwe=042) 16.9 K/ L 3.5-10.5 RED BLOOD CELL COUNT (BEAKER) (test iocu=867) 3.08 M/ L 4.63-6.08 HEMOGLOBIN (BEAKER) (test wmvn=564) 9.8 GM/DL 13.7-17.5 HEMATOCRIT (BEAKER) (test serm=176) 29.5 % 40.1-51.0 MEAN CORPUSCULAR VOLUME (BEAKER) (test dkhe=976) 95.8 fL 79.0-92.2 MEAN CORPUSCULAR HEMOGLOBIN (BEAKER) (test 31.8 pg 25.7-32.2 qbqf=205) MEAN CORPUSCULAR HEMOGLOBIN CONC (BEAKER) (test 33.2 GM/DL 32.3-36.5 glsj=548) RED CELL DISTRIBUTION WIDTH (BEAKER) (test 14.5 % 11.6-14.4 xcjk=559) PLATELET COUNT (BEAKER) (test glob=775) 187 K/CU MM 150-450 MEAN PLATELET VOLUME (BEAKER) (test pxya=047) 11.7 fL 9.4-12.4 NUCLEATED RED BLOOD CELLS (BEAKER) (test 0 /100 WBC 0-0 ubii=944) (CELLAVISION MANUAL DIFF)2019-04-26 19:30:00 Test Item Value Reference Range Comments NEUTROPHILS - REL (CELLAVISION)(BEAKER) (test 83 % tens=0706) LYMPHOCYTES - REL (CELLAVISION)(BEAKER) (test 6 % edsq=6267) MONOCYTES - REL (CELLAVISION)(BEAKER) (test 4 % zkrk=5914) METAMYELOCYTES - REL (CELLAVISION)(BEAKER) (test 5 % 0-0 yzfu=1349) MYELOCYTES - REL (CELLAVISION)(BEAKER) (test 1 % 0-0 awea=0075) BANDS - REL (CELLAVISION)(BEAKER) (test 1 % 0-10 ceox=9275) NEUTROPHILS - ABS (CELLAVISION)(BEAKER) (test 14.03 K/ul 1.78-5.38 sjbv=6068) LYMPHOCYTES - ABS (CELLAVISION)(BEAKER) (test 1.01 K/ul 1.32-3.57 cbyl=8933) MONOCYTES - ABS (CELLAVISION)(BEAKER) (test 0.68 K/uL 0.30-0.82 ofdc=9039) METAMYELOCYTES - ABS (CELLAVISION)(BEAKER) (test 0.85 K/uL 0.00-0.00 zvgt=7583) MYELOCYTES-ABS (CELLAVISION)(BEAKER) (test 0.17 K/uL 0.00-0.00 zzuv=8154) BANDS - ABS (CELLAVISION)(BEAKER) (test 0.17 K/uL 0.00-0.80 vomv=8469) TOTAL COUNTED (BEAKER) (test eztg=2747) 100 RBC MORPHOLOGY (BEAKER) (test sozi=429) Normal WBC MORPHOLOGY (BEAKER) (test ztmz=014) Normal PLT MORPHOLOGY (BEAKER) (test lssh=425) Normal ARTIFACT (CELLAVISION)(BEAKER) (test skfw=5777) Present PLATELET CONCENTRATION (CELLAVISION)(BEAKER) Adequate (test dsqs=9459) Received comment: User comments: Slide comments:B-TYPE NATRIURETIC FACTOR (BNP) 2019-04-26 19:20:00 Test Item Value Reference Range Comments B-TYPE NATRIURETIC PEPTIDE (BEAKER) (test 144 pg/mL 0-100 hnoc=399) TROPONIN [id number] 19:20:00 Test Item Value Reference Range Comments TROPONIN I (BEAKER) (test hffh=833) 0.05 ng/mL 0.00-0.03 Troponin I (TnI) levels [...] failure, acidosis, acute neurological disease, and persistent tachyarrhythmia.PT/[id number] 19:17:00 Test Item Value Reference Range Comments PROTIME (BEAKER) (test ixwn=683) 13.9 seconds 11.9-14.2 INR (BEAKER) (test rrbe=835) 1.1 <=5.9 PARTIAL THROMBOPLASTIN TIME (BEAKER) (test 25.8 seconds 22.5-36.0 zqtv=727) Effective 01/30/2019: PT Reference Range ChangeNew: 11.9-14.2 Previous: 11.7- 14.7RECOMMENDED COUMADIN/WARFARIN INR THERAPY RANGESSTANDARD DOSE: 2.0-3.0 Includes: PROPHYLAXIS for venous thrombosis, systemic embolization; TREATMENT for venous thrombosis and/or pulmonary embolus.HIGH RISK: Target INR is2.5-3.5 for patients wiht mechanical heart valves.BASIC METABOLIC [id number] 19:14: 00 Test Item Value Reference Range Comments SODIUM (BEAKER) (test 134 meq/L 136-145 dhir=409) POTASSIUM (BEAKER) (test 4.7 meq/L 3.5-5.1 ibhm=894) CHLORIDE (BEAKER) (test 96 meq/L 98-107 kqdh=686) CO2 (BEAKER) (test 29 meq/L 22-29 yrks=794) BLOOD UREA NITROGEN 39 mg/dL 7-21 (BEAKER) (test hmoj=079) CREATININE (BEAKER) (test 4.65 mg/dL 0.57-1.25 zvrx=302) GLUCOSE RANDOM (BEAKER) 129 mg/dL 70-105 (test fzlg=347) CALCIUM (BEAKER) (test 8.9 mg/dL 8.4-10.2 jdxw=908) EGFR (BEAKER) (test 13 mL/min/1.73 sq m ESTIMATED GFR IS NOT lpwb=4107) ACCURATE CREATININE CLEARANCE IN PREDICTING GLOMERULAR FILTRATION RATE. ESTIMATED GFR IS NOT APPLICABLE FOR DIALYSIS PATIENTS. [id number] 19:13:00 Test Item Value Reference Range Comments MAGNESIUM (BEAKER) (test ngkr=491) 2.4 mg/dL 1.6-2.6 RAD, CHEST, 1 VIEW, NON [id number] 17:54:00Reason for exam:->ABNORMAL ECGFINAL REPORT Chest, one view. HISTORY: ABNORMAL ECG COMPARISON: Radiograph from 04/14/2019 IMPRESSION: The left pleural effusion has increased and is now likely moderate volume.Mild left basilar subsegmental atelectasis. The cardiac silhouette is obscured. A stent overlies theleft axillary vasculature. A device overlies the midline chest. No pneumothorax. No acute bony abnormality. Signed: Karon Williamson MDReport Verified Date/Time: 2018 17:54:42 Reading Location: [facility] [id number] Consult Reading Room C-REACTIVE [id number] 17:19:00 Test Item Value Reference Range Comments C-REACTIVE PROTEIN (BEAKER) (test awty=950) 0.22 mg/dL 0.00-0.50 POCT-GLUCOSE [id number] 15:56:00 Test Item Value Reference Range Comments POC-GLUCOSE METER (BEAKER) 283 mg/dL 70-110 TESTED AT [address] (test pdct=5244) [facility] [address] POCT-GLUCOSE [id number] 11:40:00 Test Item Value Reference Range Comments POC-GLUCOSE METER (BEAKER) 319 mg/dL 70-110 TESTED AT [address] (test dcyk=3979) [facility] [address] CBC W/PLT COUNT & AUTO [id number] 09:52:00 Test Item Value Reference Range Comments WHITE BLOOD CELL COUNT (BEAKER) (test cpep=081) 10.9 K/ L 3.5-10.5 RED BLOOD CELL COUNT (BEAKER) (test wrvy=194) 2.73 M/ L 4.63-6.08 HEMOGLOBIN (BEAKER) (test xmin=686) 8.6 GM/DL 13.7-17.5 HEMATOCRIT (BEAKER) (test yfju=422) 26.5 % 40.1-51.0 MEAN CORPUSCULAR VOLUME (BEAKER) (test xlsz=720) 97.1 fL 79.0-92.2 MEAN CORPUSCULAR HEMOGLOBIN (BEAKER) (test 31.5 pg 25.7-32.2 cuop=809) MEAN CORPUSCULAR HEMOGLOBIN CONC (BEAKER) (test 32.5 GM/DL 32.3-36.5 clwa=538) RED CELL DISTRIBUTION WIDTH (BEAKER) (test 15.1 % 11.6-14.4 rxih=756) PLATELET COUNT (BEAKER) (test qpki=317) 205 K/CU MM 150-450 MEAN PLATELET VOLUME (BEAKER) (test ssvo=933) 11.7 fL 9.4-12.4 NUCLEATED RED BLOOD CELLS (BEAKER) (test 0 /100 WBC 0-0 oexv=950) NEUTROPHILS RELATIVE PERCENT (BEAKER) (test 87 % lpxr=187) LYMPHOCYTES RELATIVE PERCENT (BEAKER) (test 8 % nzuk=043) MONOCYTES RELATIVE PERCENT (BEAKER) (test 3 % dlox=761) EOSINOPHILS RELATIVE PERCENT (BEAKER) (test 0 % xwgz=000) BASOPHILS RELATIVE PERCENT (BEAKER) (test 0 % hyhp=881) NEUTROPHILS ABSOLUTE COUNT (BEAKER) (test 9.40 K/ L 1.78-5.38 tvxo=941) LYMPHOCYTES ABSOLUTE COUNT (BEAKER) (test 0.83 K/ L 1.32-3.57 nqql=374) MONOCYTES ABSOLUTE COUNT (BEAKER) (test 0.36 K/ L 0.30-0.82 dheb=473) EOSINOPHILS ABSOLUTE COUNT (BEAKER) (test 0.00 K/ L 0.04-0.54 vmjc=497) BASOPHILS ABSOLUTE COUNT (BEAKER) (test 0.01 K/ L 0.01-0.08 dbyi=789) IMMATURE GRANULOCYTES-RELATIVE PERCENT (BEAKER) 2 % 0-1 (test ectm=9477) BASIC METABOLIC [id number] 08:06:00 Test Item Value Reference Range Comments SODIUM (BEAKER) (test 136 meq/L 136-145 wcjd=801) POTASSIUM (BEAKER) (test 6.3 meq/L 3.5-5.1 Specimen slightly eyvk=419) hemolyzed CHLORIDE (BEAKER) (test 101 meq/L 98-107 oitk=938) CO2 (BEAKER) (test 24 meq/L 22-29 bziy=965) BLOOD UREA NITROGEN 43 mg/dL 7-21 (BEAKER) (test tpcx=667) CREATININE (BEAKER) (test 5.78 mg/dL 0.57-1.25 Specimen slightly bgjv=570) hemolyzed GLUCOSE RANDOM (BEAKER) 329 mg/dL 70-105 (test wsxe=105) CALCIUM (BEAKER) (test 10.0 mg/dL 8.4-10.2 pssw=214) EGFR (BEAKER) (test 10 mL/min/1.73 sq m ESTIMATED GFR IS NOT vwrl=1538) ACCURATE CREATININE CLEARANCE IN PREDICTING GLOMERULAR FILTRATION RATE. ESTIMATED GFR IS NOT APPLICABLE FOR DIALYSIS PATIENTS. [id number] 07:34:00 Test Item Value Reference Range Comments PHOSPHORUS (BEAKER) (test 5.3 mg/dL 2.3-4.7 Specimen slightly hemolyzed ahwq=987) POCT-GLUCOSE [id number] 07:18:00 Test Item Value Reference Range Comments POC-GLUCOSE METER (BEAKER) 364 mg/dL 70-110 Notified RN /TESTED AT [facility] (test umlt=9395) [address] [place] [address] HEPATITIS B SURFACE [id number] 22:01:00 Test Item Value Reference Range Comments HEPATITIS B SURFACE ANTIGEN (2) (BEAKER) (test Nonreactive Nonreactive pnns=8747) POCT-GLUCOSE [id number] 21:39:00 Test Item Value Reference Range Comments POC-GLUCOSE METER (BEAKER) 334 mg/dL 70-110 Notified RN /TESTED AT [facility] (test rpob=3577) [address] [place] [address] POCT-GLUCOSE [id number] 18:23:00 Test Item Value Reference Range Comments POC-GLUCOSE METER (BEAKER) 299 mg/dL 70-110 TESTED AT [address] (test pcby=4208) [facility] [address] BASIC METABOLIC [id number] 16:58:00 Test Item Value Reference Range Comments SODIUM (BEAKER) (test 139 meq/L 136-145 ijpd=645) POTASSIUM (BEAKER) (test 4.8 meq/L 3.5-5.1 xpsa=105) CHLORIDE (BEAKER) (test 102 meq/L 98-107 snmu=396) CO2 (BEAKER) (test 28 meq/L 22-29 atxq=687) BLOOD UREA NITROGEN 32 mg/dL 7-21 (BEAKER) (test xnkr=604) CREATININE (BEAKER) (test 4.62 mg/dL 0.57-1.25 woqp=613) GLUCOSE RANDOM (BEAKER) 277 mg/dL 70-105 (test kjxr=820) CALCIUM (BEAKER) (test 10.0 mg/dL 8.4-10.2 nvhh=024) EGFR (BEAKER) (test 13 mL/min/1.73 sq m ESTIMATED GFR IS NOT kazs=1345) ACCURATE CREATININE CLEARANCE IN PREDICTING GLOMERULAR FILTRATION RATE. ESTIMATED GFR IS NOT APPLICABLE FOR DIALYSIS PATIENTS. CBC W/PLT COUNT & AUTO [id number] 16:41:00 Test Item Value Reference Range Comments WHITE BLOOD CELL COUNT (BEAKER) (test mfel=500) 15.2 K/ L 3.5-10.5 RED BLOOD CELL COUNT (BEAKER) (test ijif=656) 2.86 M/ L 4.63-6.08 HEMOGLOBIN (BEAKER) (test yrhn=986) 8.9 GM/DL 13.7-17.5 HEMATOCRIT (BEAKER) (test ydij=108) 27.1 % 40.1-51.0 MEAN CORPUSCULAR VOLUME (BEAKER) (test jefv=982) 94.8 fL 79.0-92.2 MEAN CORPUSCULAR HEMOGLOBIN (BEAKER) (test 31.1 pg 25.7-32.2 rxwc=550) MEAN CORPUSCULAR HEMOGLOBIN CONC (BEAKER) (test 32.8 GM/DL 32.3-36.5 xwvw=313) RED CELL DISTRIBUTION WIDTH (BEAKER) (test 15.3 % 11.6-14.4 nakp=731) PLATELET COUNT (BEAKER) (test qalf=283) 231 K/CU MM 150-450 MEAN PLATELET VOLUME (BEAKER) (test avjj=335) 11.7 fL 9.4-12.4 NUCLEATED RED BLOOD CELLS (BEAKER) (test 0 /100 WBC 0-0 xedq=694) NEUTROPHILS RELATIVE PERCENT (BEAKER) (test 84 % qqrt=058) LYMPHOCYTES RELATIVE PERCENT (BEAKER) (test 7 % xafe=372) MONOCYTES RELATIVE PERCENT (BEAKER) (test 7 % npmb=482) EOSINOPHILS RELATIVE PERCENT (BEAKER) (test 0 % cfrv=024) BASOPHILS RELATIVE PERCENT (BEAKER) (test 0 % qoub=147) NEUTROPHILS ABSOLUTE COUNT (BEAKER) (test 12.77 K/ L 1.78-5.38 jddk=503) LYMPHOCYTES ABSOLUTE COUNT (BEAKER) (test 1.03 K/ L 1.32-3.57 yidn=085) MONOCYTES ABSOLUTE COUNT (BEAKER) (test 1.12 K/ L 0.30-0.82 qpzq=792) EOSINOPHILS ABSOLUTE COUNT (BEAKER) (test 0.00 K/ L 0.04-0.54 mogq=791) BASOPHILS ABSOLUTE COUNT (BEAKER) (test 0.02 K/ L 0.01-0.08 waeb=653) IMMATURE GRANULOCYTES-RELATIVE PERCENT (BEAKER) 1 % 0-1 (test lqdw=3947) POCT-GLUCOSE [id number] 16:07:00 Test Item Value Reference Range Comments POC-GLUCOSE METER (BEAKER) 303 mg/dL 70-110 TESTED AT [facility] [address] [facility] (test pwmt=9804) [facility] [address] TROPONIN [id number] 15:56:00 Test Item Value Reference Range Comments TROPONIN I (BEAKER) (test tmsh=724) 0.01 ng/mL 0.00-0.03 Troponin I (TnI) levels [...] acidosis, acute neurological disease, and persistent tachyarrhythmia.TROPONIN [id number] 08:07:00 Test Item Value Reference Range Comments TROPONIN I (BEAKER) (test ondv=464) < ng/mL 0.00-0.03 Troponin I (TnI) levels [...] acute neurological disease, and persistent tachyarrhythmia.BASIC METABOLIC [id number] 08:05:00 Test Item Value Reference Range Comments SODIUM (BEAKER) (test 134 meq/L 136-145 frqt=732) POTASSIUM (BEAKER) (test 6.0 meq/L 3.5-5.1 pyho=075) CHLORIDE (BEAKER) (test 94 meq/L 98-107 qusb=430) CO2 (BEAKER) (test 26 meq/L 22-29 avsd=241) BLOOD UREA NITROGEN 46 mg/dL 7-21 (BEAKER) (test ggub=000) CREATININE (BEAKER) (test 7.49 mg/dL 0.57-1.25 ksui=584) GLUCOSE RANDOM (BEAKER) 433 mg/dL 70-105 (test zmri=332) CALCIUM (BEAKER) (test 10.7 mg/dL 8.4-10.2 ucps=212) EGFR (BEAKER) (test 7 mL/min/1.73 sq m ESTIMATED GFR IS NOT fplb=0615) ACCURATE CREATININE CLEARANCE IN PREDICTING GLOMERULAR FILTRATION RATE. ESTIMATED GFR IS NOT APPLICABLE FOR DIALYSIS PATIENTS. POCT-GLUCOSE [id number] 06:48:00 Test Item Value Reference Range Comments POC-GLUCOSE METER (BEAKER) 378 mg/dL 70-110 TESTED AT [facility] [address] [facility] (test avzp=8200) [facility] [address] CBC W/PLT COUNT & AUTO [id number] 03:42:00 Test Item Value Reference Range Comments WHITE BLOOD CELL COUNT (BEAKER) (test fxby=310) 13.5 K/ L 3.5-10.5 RED BLOOD CELL COUNT (BEAKER) (test gciz=100) 2.98 M/ L 4.63-6.08 HEMOGLOBIN (BEAKER) (test vkqq=944) 9.5 GM/DL 13.7-17.5 HEMATOCRIT (BEAKER) (test oxtv=624) 28.4 % 40.1-51.0 MEAN CORPUSCULAR VOLUME (BEAKER) (test jwug=307) 95.3 fL 79.0-92.2 MEAN CORPUSCULAR HEMOGLOBIN (BEAKER) (test 31.9 pg 25.7-32.2 coqq=260) MEAN CORPUSCULAR HEMOGLOBIN CONC (BEAKER) (test 33.5 GM/DL 32.3-36.5 oyvs=769) RED CELL DISTRIBUTION WIDTH (BEAKER) (test 15.1 % 11.6-14.4 rqsz=227) PLATELET COUNT (BEAKER) (test jttx=792) 203 K/CU MM 150-450 MEAN PLATELET VOLUME (BEAKER) (test xiam=904) 11.9 fL 9.4-12.4 NUCLEATED RED BLOOD CELLS (BEAKER) (test 0 /100 WBC 0-0 mqrg=420) NEUTROPHILS RELATIVE PERCENT (BEAKER) (test 85 % izmm=469) LYMPHOCYTES RELATIVE PERCENT (BEAKER) (test 9 % dqne=883) MONOCYTES RELATIVE PERCENT (BEAKER) (test 4 % khuz=117) EOSINOPHILS RELATIVE PERCENT (BEAKER) (test 0 % nkoe=251) BASOPHILS RELATIVE PERCENT (BEAKER) (test 0 % lzdx=805) NEUTROPHILS ABSOLUTE COUNT (BEAKER) (test 11.52 K/ L 1.78-5.38 kgmq=969) LYMPHOCYTES ABSOLUTE COUNT (BEAKER) (test 1.17 K/ L 1.32-3.57 iovp=119) MONOCYTES ABSOLUTE COUNT (BEAKER) (test 0.56 K/ L 0.30-0.82 fhqi=503) EOSINOPHILS ABSOLUTE COUNT (BEAKER) (test 0.00 K/ L 0.04-0.54 rtzk=469) BASOPHILS ABSOLUTE COUNT (BEAKER) (test 0.03 K/ L 0.01-0.08 evqw=591) IMMATURE GRANULOCYTES-RELATIVE PERCENT (BEAKER) 2 % 0-1 (test usoh=1261) BASIC METABOLIC [id number] 03:38:00 Test Item Value Reference Range Comments SODIUM (BEAKER) (test 130 meq/L 136-145 rgby=133) POTASSIUM (BEAKER) (test 6.3 meq/L 3.5-5.1 eqtv=770) CHLORIDE (BEAKER) (test 94 meq/L 98-107 qzvl=280) CO2 (BEAKER) (test 22 meq/L 22-29 xgot=302) BLOOD UREA NITROGEN 42 mg/dL 7-21 (BEAKER) (test agcy=486) CREATININE (BEAKER) (test 7.08 mg/dL 0.57-1.25 mwkh=588) GLUCOSE RANDOM (BEAKER) 430 mg/dL 70-105 (test ipig=773) CALCIUM (BEAKER) (test 10.6 mg/dL 8.4-10.2 kymj=686) EGFR (BEAKER) (test 8 mL/min/1.73 sq m ESTIMATED GFR IS NOT nmoq=5689) ACCURATE CREATININE CLEARANCE IN PREDICTING GLOMERULAR FILTRATION RATE. ESTIMATED GFR IS NOT APPLICABLE FOR DIALYSIS PATIENTS. TROPONIN [id number] 03:38:00 Test Item Value Reference Range Comments TROPONIN I (BEAKER) (test umpv=886) < ng/mL 0.00-0.03 Troponin I (TnI) levels [...] neurological disease, and persistent tachyarrhythmia.CT, BRAIN, WITHOUT [id number] 03 :13:00Reason for exam:->LOSS OF CONSCIOUSNESSWhat is [...] acute intracranial pathology persists. Signed: Pia Beebe [facility] Verified Date/Time: 04/14/2019 03:13:43 RAD, CHEST, 1 VIEW, NON [id number] 02:37: 00Reason for exam:->LOSS OF CONSCIOUSNESSShould this [...] for further characterization if clinically warranted. Signed: Jonathan Marsh MDReport Verified Date/Time: 2018 02:37:40 Reading Location: [address] Reading Room AFB CULTURE + [id number] 10:35:00 Test Item Value Reference Range Comments CULTURE (BEAKER) (test No acid-fast bacilli isolated dqti=0360) in 42 days AFB SMEAR (BEAKER) (test No acid fast bacilli seen oavy=956) FUNGUS CULTURE + [id number] 19:02:00 Test Item Value Reference Range Comments CULTURE (BEAKER) (test No fungus isolated in 28 days xccj=1876) FUNGUS SMEAR (BEAKER) (test No fungi seen dbsc=9568) POCT-GLUCOSE [id number] 12:35:00 Test Item Value Reference Range Comments POC-GLUCOSE METER (BEAKER) 214 mg/dL 70-110 TESTED AT [address] (test zuga=3065) [facility] [address] BLOOD [id number] 12:01:00 Test Item Value Reference Range Comments CULTURE (BEAKER) (test ralj=2068) No growth in 5 days BLOOD [id number] 12:01:00 Test Item Value Reference Range Comments CULTURE (BEAKER) (test zsxh=1786) No growth in 5 days POCT-GLUCOSE [id number] 07:49:00 Test Item Value Reference Range Comments POC-GLUCOSE METER (BEAKER) 174 mg/dL 70-110 TESTED AT [address] (test luni=7927) [facility] [address] MR, CARDIAC WITHOUT [id number] 07:10:00Reason for exam:->r/o constrictive pericarditisFINAL REPORT Cardiac MRI dated 22 Jan 2019 INDICATION: Is a 68 year-old male with with past medical history of end-stage renal disease, coronary artery disease, PCI, on anticoagulation, there is a concern for underlying constrictive physiology. TECHNIQUE: Tali 3 Shauna [employer] MRI scanner. Morphologic and dynamic cine imaging [...] and function. Quantitative values are as follows: ZML=526 cc; ESV=73 cc; stroke xntjlb=835 cc ; and ejection fraction=59%. Calculated absolute cardiac output=8.5 liters/ min. Absolute left ventricular bdrm=484 grams. The right ventricle is normal in size and function. Quantitative values are as follows: ZXK=535 cc; ESV=78 cc ; stroke vpkndj=458 cc; and ejection fraction=57%. Index RV EDV=82 [...] MDReport Verified Date/Time: 01/23/2019 07:10:40 Reading Location: [place] [address] [facility] [id number] 05:56:00 Test Item Value Reference Range Comments TOTAL PROTEIN (BEAKER) 5.8 gm/dL 6.0-8.3 (test uawy=892) ALBUMIN (BEAKER) (test 3.1 g/dL 3.5-5.0 mtfh=1921) ALKALINE PHOSPHATASE 99 U/L 40-150 (BEAKER) (test jypb=182) BILIRUBIN TOTAL (BEAKER) 0.4 mg/dL 0.2-1.2 (test btjv=490) SODIUM (BEAKER) (test 137 meq/L 136-145 sphd=995) POTASSIUM (BEAKER) (test 4.0 meq/L 3.5-5.1 gunm=589) CHLORIDE (BEAKER) (test 99 meq/L 98-107 ortc=537) CO2 (BEAKER) (test 27 meq/L 22-29 tdcm=587) BLOOD UREA NITROGEN 32 mg/dL 7-21 (BEAKER) (test vhal=344) CREATININE (BEAKER) (test 7.10 mg/dL 0.57-1.25 keut=165) GLUCOSE RANDOM (BEAKER) 170 mg/dL 70-105 (test dobj=063) CALCIUM (BEAKER) (test 9.0 mg/dL 8.4-10.2 poxe=255) AST (SGOT) (BEAKER) (test 14 U/L 5-34 ezxn=631) ALT (SGPT) (BEAKER) (test 21 U/L 6-55 czgp=105) EGFR (BEAKER) (test 8 mL/min/1.73 sq m ESTIMATED GFR IS NOT ldor=9394) ACCURATE CREATININE CLEARANCE IN PREDICTING GLOMERULAR FILTRATION RATE. ESTIMATED GFR IS NOT APPLICABLE FOR DIALYSIS PATIENTS. C-REACTIVE [id number] 05:55:00 Test Item Value Reference Range Comments C-REACTIVE PROTEIN (BEAKER) (test lokw=503) 9.80 mg/dL 0.00-0.50 CBC W/PLT COUNT & AUTO [id number] 05:20:00 Test Item Value Reference Range Comments WHITE BLOOD CELL COUNT (BEAKER) (test jitd=411) 6.3 K/ L 3.5-10.5 RED BLOOD CELL COUNT (BEAKER) (test utkf=204) 2.41 M/ L 4.63-6.08 HEMOGLOBIN (BEAKER) (test xhob=347) 7.2 GM/DL 13.7-17.5 HEMATOCRIT (BEAKER) (test wwxo=999) 23.3 % 40.1-51.0 MEAN CORPUSCULAR VOLUME (BEAKER) (test tnpf=838) 96.7 fL 79.0-92.2 MEAN CORPUSCULAR HEMOGLOBIN (BEAKER) (test 29.9 pg 25.7-32.2 yrhm=194) MEAN CORPUSCULAR HEMOGLOBIN CONC (BEAKER) (test 30.9 GM/DL 32.3-36.5 pxgy=826) RED CELL DISTRIBUTION WIDTH (BEAKER) (test 15.4 % 11.6-14.4 djwg=221) PLATELET COUNT (BEAKER) (test vxjs=769) 236 K/CU MM 150-450 MEAN PLATELET VOLUME (BEAKER) (test fykn=784) 11.8 fL 9.4-12.4 NUCLEATED RED BLOOD CELLS (BEAKER) (test 0 /100 WBC 0-0 mfpc=198) NEUTROPHILS RELATIVE PERCENT (BEAKER) (test 65 % mwhc=793) LYMPHOCYTES RELATIVE PERCENT (BEAKER) (test 20 % xkml=893) MONOCYTES RELATIVE PERCENT (BEAKER) (test 11 % rtay=884) EOSINOPHILS RELATIVE PERCENT (BEAKER) (test 3 % ndgx=665) BASOPHILS RELATIVE PERCENT (BEAKER) (test 1 % lwim=458) NEUTROPHILS ABSOLUTE COUNT (BEAKER) (test 4.11 K/ L 1.78-5.38 mzgr=322) LYMPHOCYTES ABSOLUTE COUNT (BEAKER) (test 1.25 K/ L 1.32-3.57 jrfv=082) MONOCYTES ABSOLUTE COUNT (BEAKER) (test 0.67 K/ L 0.30-0.82 ouhh=067) EOSINOPHILS ABSOLUTE COUNT (BEAKER) (test 0.20 K/ L 0.04-0.54 nzbv=221) BASOPHILS ABSOLUTE COUNT (BEAKER) (test 0.06 K/ L 0.01-0.08 csqw=688) IMMATURE GRANULOCYTES-RELATIVE PERCENT (BEAKER) 1 % 0-1 (test xjqa=3381) POCT-GLUCOSE [id number] 22:15:00 Test Item Value Reference Range Comments POC-GLUCOSE METER (BEAKER) 183 mg/dL 70-110 TESTED AT [address] (test gesq=7345) [place] [address] BODY FLUID CULTURE + GRAM [id number] 13:25:00 Test Item Value Reference Range Comments CULTURE (BEAKER) (test peip=4969) No growth GRAM STAIN RESULT (BEAKER) (test <1+ White blood cells seen ixkf=7679) GRAM STAIN RESULT (BEAKER) (test No organisms seen rvwk=97286) POCT-GLUCOSE [id number] 12:07:00 Test Item Value Reference Range Comments POC-GLUCOSE METER (BEAKER) 275 mg/dL 70-110 TESTED AT [address] (test zyza=2696) [place] [address] POCT-GLUCOSE [id number] 07:57:00 Test Item Value Reference Range Comments POC-GLUCOSE METER (BEAKER) 160 mg/dL 70-110 TESTED AT [address] (test pgeo=7495) [place] [address] POCT-GLUCOSE [id number] 21:56:00 Test Item Value Reference Range Comments POC-GLUCOSE METER (BEAKER) 210 mg/dL 70-110 TESTED AT [address] (test aipc=7681) [place] [address] BODY FLUID [id number] 18:30:00 Test Item Value Reference Range Comments CRYSTALS, BODY FLUID (BEAKER) No crystals seen. (test joig=1860) [id number] (BEAKER) Slade Granados MD (electronic (test zjeg=2985) signature) POCT-GLUCOSE [id number] 17:51:00 Test Item Value Reference Range Comments POC-GLUCOSE METER (BEAKER) 152 mg/dL 70-110 TESTED AT [address] (test fchh=6146) [place] [id number] 13:48:00 Test Item Value Reference Range Comments PHOSPHORUS (BEAKER) (test piwq=448) 4.7 mg/dL 2.3-4.7 BODY FLUID CULTURE + GRAM [id number] 12:29:00 Test Item Value Reference Range Comments CULTURE (BEAKER) (test nxvd=6747) No growth GRAM STAIN RESULT (BEAKER) (test <1+ White blood cells seen ycym=6357) GRAM STAIN RESULT (BEAKER) (test No organisms seen bask=15353) POCT-GLUCOSE [id number] 11:37:00 Test Item Value Reference Range Comments POC-GLUCOSE METER (BEAKER) 295 mg/dL 70-110 TESTED AT [address] (test revz=4357) [place] [address] POCT-GLUCOSE [id number] 07:36:00 Test Item Value Reference Range Comments POC-GLUCOSE METER (BEAKER) 219 mg/dL 70-110 TESTED AT [address] (test lehr=3125) [place] [address] [id number] 06:49:00 Test Item Value Reference Range Comments MAGNESIUM (BEAKER) (test vews=936) 1.9 mg/dL 1.6-2.6 BASIC METABOLIC [id number] 06:49:00 Test Item Value Reference Range Comments SODIUM (BEAKER) (test 135 meq/L 136-145 jdoj=075) POTASSIUM (BEAKER) (test 4.2 meq/L 3.5-5.1 fyyi=007) CHLORIDE (BEAKER) (test 99 meq/L 98-107 klbn=826) CO2 (BEAKER) (test 25 meq/L 22-29 bdao=386) BLOOD UREA NITROGEN 33 mg/dL 7-21 (BEAKER) (test sdpr=016) CREATININE (BEAKER) (test 6.64 mg/dL 0.57-1.25 htpy=151) GLUCOSE RANDOM (BEAKER) 177 mg/dL 70-105 (test uxek=019) CALCIUM (BEAKER) (test 8.9 mg/dL 8.4-10.2 vxun=374) EGFR (BEAKER) (test 8 mL/min/1.73 sq m ESTIMATED GFR IS NOT gbqj=4816) ACCURATE CREATININE CLEARANCE IN PREDICTING GLOMERULAR FILTRATION RATE. ESTIMATED GFR IS NOT APPLICABLE FOR DIALYSIS PATIENTS. CBC W/PLT COUNT & AUTO [id number] 05:55:00 Test Item Value Reference Range Comments WHITE BLOOD CELL COUNT (BEAKER) (test udjm=474) 6.3 K/ L 3.5-10.5 RED BLOOD CELL COUNT (BEAKER) (test wnwh=253) 2.51 M/ L 4.63-6.08 HEMOGLOBIN (BEAKER) (test ukoa=395) 7.7 GM/DL 13.7-17.5 HEMATOCRIT (BEAKER) (test nqlk=238) 25.2 % 40.1-51.0 MEAN CORPUSCULAR VOLUME (BEAKER) (test crjv=187) 100.4 fL 79.0-92.2 MEAN CORPUSCULAR HEMOGLOBIN (BEAKER) (test 30.7 pg 25.7-32.2 fzxk=812) MEAN CORPUSCULAR HEMOGLOBIN CONC (BEAKER) (test 30.6 GM/DL 32.3-36.5 nldy=575) RED CELL DISTRIBUTION WIDTH (BEAKER) (test 15.7 % 11.6-14.4 pwpp=154) PLATELET COUNT (BEAKER) (test mcvk=252) 211 K/CU MM 150-450 MEAN PLATELET VOLUME (BEAKER) (test bzfb=240) 11.9 fL 9.4-12.4 NUCLEATED RED BLOOD CELLS (BEAKER) (test 0 /100 WBC 0-0 ltnr=463) NEUTROPHILS RELATIVE PERCENT (BEAKER) (test 66 % ebey=218) LYMPHOCYTES RELATIVE PERCENT (BEAKER) (test 18 % cudo=145) MONOCYTES RELATIVE PERCENT (BEAKER) (test 11 % htwu=114) EOSINOPHILS RELATIVE PERCENT (BEAKER) (test 3 % uytk=102) BASOPHILS RELATIVE PERCENT (BEAKER) (test 1 % vdie=835) NEUTROPHILS ABSOLUTE COUNT (BEAKER) (test 4.15 K/ L 1.78-5.38 gejo=819) LYMPHOCYTES ABSOLUTE COUNT (BEAKER) (test 1.12 K/ L 1.32-3.57 llft=073) MONOCYTES ABSOLUTE COUNT (BEAKER) (test 0.69 K/ L 0.30-0.82 ootj=494) EOSINOPHILS ABSOLUTE COUNT (BEAKER) (test 0.18 K/ L 0.04-0.54 zrsv=159) BASOPHILS ABSOLUTE COUNT (BEAKER) (test 0.07 K/ L 0.01-0.08 canr=196) IMMATURE GRANULOCYTES-RELATIVE PERCENT (BEAKER) 2 % 0-1 (test kfsz=7148) POCT-GLUCOSE [id number] 21:34:00 Test Item Value Reference Range Comments POC-GLUCOSE METER (BEAKER) 218 mg/dL 70-110 TESTED AT [address] (test blmv=7498) [facility] [address] POCT-GLUCOSE [id number] 17:42:00 Test Item Value Reference Range Comments POC-GLUCOSE METER (BEAKER) 209 mg/dL 70-110 TESTED AT [address] (test klqq=1475) [facility] [address] POCT-GLUCOSE [id number] 12:00:00 Test Item Value Reference Range Comments POC-GLUCOSE METER (BEAKER) 256 mg/dL 70-110 TESTED AT [address] (test vwkd=9131) [place] [id number] POCT-GLUCOSE [id number] 08:07:00 Test Item Value Reference Range Comments POC-GLUCOSE METER (BEAKER) 226 mg/dL 70-110 TESTED AT [address] (test qjjx=5016) [facility] [address] BASIC METABOLIC [id number] 06:16:00 Test Item Value Reference Range Comments SODIUM (BEAKER) (test 141 meq/L 136-145 ktbo=601) POTASSIUM (BEAKER) (test 4.3 meq/L 3.5-5.1 ievz=263) CHLORIDE (BEAKER) (test 102 meq/L 98-107 vlee=130) CO2 (BEAKER) (test 28 meq/L 22-29 sxci=015) BLOOD UREA NITROGEN 20 mg/dL 7-21 (BEAKER) (test akrb=092) CREATININE (BEAKER) (test 4.68 mg/dL 0.57-1.25 vicc=734) GLUCOSE RANDOM (BEAKER) 181 mg/dL 70-105 (test hboz=084) CALCIUM (BEAKER) (test 9.5 mg/dL 8.4-10.2 rsmu=072) EGFR (BEAKER) (test 13 mL/min/1.73 sq m ESTIMATED GFR IS NOT jqrg=1391) ACCURATE CREATININE CLEARANCE IN PREDICTING GLOMERULAR FILTRATION RATE. ESTIMATED GFR IS NOT APPLICABLE FOR DIALYSIS PATIENTS. VANCOMYCIN LEVEL, [id number] 06:16:00 Test Item Value Reference Range Comments VANCOMYCIN RANDOM (BEAKER) (test gddj=597) 15.3 ug/mL Reference Range: No NormalsCBC W/PLT COUNT & AUTO [id number] 06: 16:00 Test Item Value Reference Range Comments WHITE BLOOD CELL COUNT (BEAKER) (test pkml=615) 9.2 K/ L 3.5-10.5 RED BLOOD CELL COUNT (BEAKER) (test nbij=347) 2.82 M/ L 4.63-6.08 HEMOGLOBIN (BEAKER) (test ejer=388) 8.7 GM/DL 13.7-17.5 HEMATOCRIT (BEAKER) (test mlpn=385) 27.9 % 40.1-51.0 MEAN CORPUSCULAR VOLUME (BEAKER) (test gftp=533) 98.9 fL 79.0-92.2 MEAN CORPUSCULAR HEMOGLOBIN (BEAKER) (test 30.9 pg 25.7-32.2 pbba=846) MEAN CORPUSCULAR HEMOGLOBIN CONC (BEAKER) (test 31.2 GM/DL 32.3-36.5 ywii=677) RED CELL DISTRIBUTION WIDTH (BEAKER) (test 15.7 % 11.6-14.4 bibu=567) PLATELET COUNT (BEAKER) (test ccfr=129) 315 K/CU MM 150-450 MEAN PLATELET VOLUME (BEAKER) (test sbhq=222) 12.5 fL 9.4-12.4 NUCLEATED RED BLOOD CELLS (BEAKER) (test 0 /100 WBC 0-0 uloc=316) NEUTROPHILS RELATIVE PERCENT (BEAKER) (test 75 % pyau=683) LYMPHOCYTES RELATIVE PERCENT (BEAKER) (test 11 % dkin=933) MONOCYTES RELATIVE PERCENT (BEAKER) (test 11 % evhk=119) EOSINOPHILS RELATIVE PERCENT (BEAKER) (test 1 % gokt=276) BASOPHILS RELATIVE PERCENT (BEAKER) (test 1 % swcn=119) NEUTROPHILS ABSOLUTE COUNT (BEAKER) (test 6.89 K/ L 1.78-5.38 cpeu=417) LYMPHOCYTES ABSOLUTE COUNT (BEAKER) (test 0.98 K/ L 1.32-3.57 pflp=197) MONOCYTES ABSOLUTE COUNT (BEAKER) (test 1.00 K/ L 0.30-0.82 geed=397) EOSINOPHILS ABSOLUTE COUNT (BEAKER) (test 0.12 K/ L 0.04-0.54 xbte=796) BASOPHILS ABSOLUTE COUNT (BEAKER) (test 0.06 K/ L 0.01-0.08 kwzl=025) IMMATURE GRANULOCYTES-RELATIVE PERCENT (BEAKER) 1 % 0-1 (test dlje=6248) [id number] 06:07:00 Test Item Value Reference Range Comments MAGNESIUM (BEAKER) (test qvmv=839) 2.0 mg/dL 1.6-2.6 POCT-GLUCOSE [id number] 21:22:00 Test Item Value Reference Range Comments POC-GLUCOSE METER (BEAKER) 276 mg/dL 70-110 TESTED AT [facility] [address] [facility] (test msen=9577) [facility] [address] BODY FLUID CELL COUNT WITH [id number] 19:44:00 Test Item Value Reference Range Comments APPEARANCE FLUID (BEAKER) (test pioj=320) Slightly Hazy Clear COLOR FLUID (BEAKER) (test gtjg=232) Yellow Colorless, Straw RBC FLUID (BEAKER) (test xtfz=980) 15 /cu mm <=1 ADJUSTED WBC FLUID (BEAKER) (test qnjd=6242) 57 /cu mm <=5 LINING CELLS (BEAKER) (test jpnv=1606) 6 /cu mm <=1 NEUTROPHILS FLUID (BEAKER) (test kdby=1630) 35 % LYMPHS FLUID (BEAKER) (test efho=886) 29 % MONO/MACROPHAGE FLUID (BEAKER) (test 36 % rzfr=749) EOSINOPHILS FLUID (BEAKER) (test upky=109) 0 % BASO FLUID (BEAKER) (test tylo=763) 0 % CONTAINER BODY FLUID (BEAKER) (test EDTA Tube mxju=0598) BODY FLUID CELL COUNT WITH [id number] 19:38:00 Test Item Value Reference Range Comments APPEARANCE FLUID (BEAKER) (test vmgf=772) Clear Clear COLOR FLUID (BEAKER) (test ikeg=149) Straw Colorless, Straw RBC FLUID (BEAKER) (test xvzy=622) 28 /cu mm <=1 ADJUSTED WBC FLUID (BEAKER) (test kiep=1710) 54 /cu mm <=5 LINING CELLS (BEAKER) (test jzcy=9628) 4 /cu mm <=1 NEUTROPHILS FLUID (BEAKER) (test yfav=0379) 23 % LYMPHS FLUID (BEAKER) (test sxfc=829) 33 % MONO/MACROPHAGE FLUID (BEAKER) (test tgdj=956) 44 % EOSINOPHILS FLUID (BEAKER) (test lslp=220) 0 % BASO FLUID (BEAKER) (test zgws=182) 0 % CONTAINER BODY FLUID (BEAKER) (test ftdq=5261) EDTA Tube LACTATE DEHYDROGENASE (LDH), BODY [id number] 19:16:00 Test Item Value Reference Range Comments LACTATE DEHYDROGENASE FLUID (BEAKER) 163 U/L Light's criteria identifies (test ttrd=726) effusions if one or more are pre Absence of reference range indicates that normals have not been defined.Assay performance has not been validated for this type of specimen.PROTEIN, BODY [id number] 19:16:00 Test Item Value Reference Range Comments PROTEIN FLUID (BEAKER) (test 4.2 g/dL Light's criteria identifies ykro=678) effusions if one or more are pre Absence of reference range indicates that normals have not been defined.Assay performance has not been validated for this type of specimen.RAD, CHEST, PA OR AP, 1 [id number] 19:12:00Reason for exam:->s/p left thoracentesisFINAL REPORT History: Status post left thoracentesis. Comparison: Same [id number] hours Findings: A single view of the [...] vascular stent overlies the rightsubclavian region. Signed: Yasmeen Alba MDReport Verified Date/Time: 19:12:04 Reading Location: [address] Reading Room PH, BODY [id number] 19:06:00 Test Item Value Reference Range Comments PH, BODY FLUID (BEAKER) (test lekk=6800) 8.00 ALBUMIN, BODY [id number] 18:55:00 Test Item Value Reference Range Comments ALBUMIN FLUID (BEAKER) (test xhsa=926) 2.9 gm/dL Reference Range: No Normals Assay performance has not been validated for this type of specimen.AMYLASE, BODY [id number] 18:55:00 Test Item Value Reference Range Comments AMYLASE FLUID (BEAKER) (test yjuw=234) 18 U/L 30-110 Absence of reference range indicates that normals have not been defined.Assay performance has not been validated for this type of specimen.LACTATE DEHYDROGENASE (LDH), BODY [id number] 18:55:00 Test Item Value Reference Range Comments LACTATE DEHYDROGENASE FLUID (BEAKER) 161 U/L Light's criteria identifies (test yrce=589) effusions if one or more are pre Absence of reference range indicates that normals have not been defined.Assay performance has not been validated for this type of specimen.PROTEIN, BODY [id number] 18:55:00 Test Item Value Reference Range Comments PROTEIN FLUID (BEAKER) (test 4.3 g/dL Light's criteria identifies mluq=198) effusions if one or more are pre Absence of reference range indicates that normals have not been defined.Assay performance has not been validated for this type of specimen.TRIGLYCERIDES, BODY [id number] 18:55:00 Test Item Value Reference Range Comments TRIGLYCERIDES FLUID (BEAKER) (test tlxn=742) 49 mg/dL Reference Range: No Normals Assay performance has not been validated for this type of specimen.CREATININE, BODY [id number] 18:55:00 Test Item Value Reference Range Comments CREATININE FLUID (BEAKER) (test cjtr=647) 3.31 mg/dL Reference Range: No Normals Assay performance has not been validated for this type of specimen.GLUCOSE, BODY [id number] 18:55:00 Test Item Value Reference Range Comments GLUCOSE, BODY FLUID (BEAKER) (test mkjw=2080) 204 mg/dL 70-110 Absence of reference range indicates that normals have not been defined.Assay performance has not been validated for this type of specimen.SPECIFIC GRAVITY, BODY [id number] 18:49:00 Test Item Value Reference Range Comments SP GRAVITY MISCELLANEOUS (BEAKER) (test hdpz=219) 1.030 Reference Range: No NormalsU/S, [id number] 18:35:00Laterality?-> LeftReason for exam:->pleural effusionFINAL REPORT Ultrasound Guided left Thoracentesis: Modality: Ultrasound Approach: Left Posterior Lateral Intercostal Sedation: None Findings: Informed consent was obtained. After an appropriate site for drainage was found, the skin was prepped and draped, and local anesthesia was given. A 4 [place] catheter was inserted into the left pleural space under ultrasound guidance,and approximately 1000 cc of yellow pleural fluid was aspirated. The catheter was removed. No immediate complications were noted. A postprocedure chest radiograph revealed no evidence of pneumothorax. Impression: 1. Uncomplicated ultrasound-guided left thoracentesis. Signed: Perfecto [facility]ate [facility] Verified Date /Time: 01/19/2019 18:35:33 Reading Location: [address] Transitional Reading Room POCT-GLUCOSE [id number] 18:27:00 Test Item Value Reference Range Comments POC-GLUCOSE METER (BEAKER) 245 mg/dL 70-110 TESTED AT [address] (test siyi=3242) [place] [id number] POCT-GLUCOSE [id number] 13:05:00 Test Item Value Reference Range Comments POC-GLUCOSE METER (BEAKER) 169 mg/dL 70-110 TESTED AT [address] (test nnvv=9020) [place] [id number] RAD, CHEST, 1 VIEW, NON [id number] 10:50:00Reason for exam:->s/p pericardial drainShould this be [...] MDReport Verified Date/Time: 01/19/2019 10:50:13 Reading Location: [address] Transitional Reading Room VANCOMYCIN LEVEL, [id number] 09:24:00 Test Item Value Reference Range Comments VANCOMYCIN RANDOM (BEAKER) (test yucd=487) 31.8 ug/mL Reference Range: No NormalsBASIC METABOLIC [id number] 05:55:00 Test Item Value Reference Range Comments SODIUM (BEAKER) (test 138 meq/L 136-145 evmd=244) POTASSIUM (BEAKER) (test 3.9 meq/L 3.5-5.1 jcxn=618) CHLORIDE (BEAKER) (test 101 meq/L 98-107 ehhk=467) CO2 (BEAKER) (test 26 meq/L 22-29 uhqm=516) BLOOD UREA NITROGEN 19 mg/dL 7-21 (BEAKER) (test htqe=323) CREATININE (BEAKER) (test 4.62 mg/dL 0.57-1.25 mhvg=257) GLUCOSE RANDOM (BEAKER) 149 mg/dL 70-105 (test vbhc=251) CALCIUM (BEAKER) (test 9.3 mg/dL 8.4-10.2 rjwa=980) EGFR (BEAKER) (test 13 mL/min/1.73 sq m ESTIMATED GFR IS NOT vido=2715) ACCURATE CREATININE CLEARANCE IN PREDICTING GLOMERULAR FILTRATION RATE. ESTIMATED GFR IS NOT APPLICABLE FOR DIALYSIS PATIENTS. CBC W/PLT COUNT & AUTO [id number] 05:07:00 Test Item Value Reference Range Comments WHITE BLOOD CELL COUNT (BEAKER) (test cdrx=547) 9.1 K/ L 3.5-10.5 RED BLOOD CELL COUNT (BEAKER) (test cnhl=960) 2.74 M/ L 4.63-6.08 HEMOGLOBIN (BEAKER) (test rufk=849) 8.6 GM/DL 13.7-17.5 HEMATOCRIT (BEAKER) (test extw=304) 26.6 % 40.1-51.0 MEAN CORPUSCULAR VOLUME (BEAKER) (test mpkd=430) 97.1 fL 79.0-92.2 MEAN CORPUSCULAR HEMOGLOBIN (BEAKER) (test 31.4 pg 25.7-32.2 kbtr=658) MEAN CORPUSCULAR HEMOGLOBIN CONC (BEAKER) (test 32.3 GM/DL 32.3-36.5 huih=927) RED CELL DISTRIBUTION WIDTH (BEAKER) (test 15.4 % 11.6-14.4 jbcx=785) PLATELET COUNT (BEAKER) (test zzth=048) 283 K/CU MM 150-450 MEAN PLATELET VOLUME (BEAKER) (test peky=236) 12.2 fL 9.4-12.4 NUCLEATED RED BLOOD CELLS (BEAKER) (test 0 /100 WBC 0-0 wzaf=795) NEUTROPHILS RELATIVE PERCENT (BEAKER) (test 71 % tubs=600) LYMPHOCYTES RELATIVE PERCENT (BEAKER) (test 14 % fdtd=921) MONOCYTES RELATIVE PERCENT (BEAKER) (test 12 % zdzi=564) EOSINOPHILS RELATIVE PERCENT (BEAKER) (test 1 % sagc=859) BASOPHILS RELATIVE PERCENT (BEAKER) (test 1 % ngqr=090) NEUTROPHILS ABSOLUTE COUNT (BEAKER) (test 6.48 K/ L 1.78-5.38 nshf=863) LYMPHOCYTES ABSOLUTE COUNT (BEAKER) (test 1.25 K/ L 1.32-3.57 xwnd=703) MONOCYTES ABSOLUTE COUNT (BEAKER) (test 1.07 K/ L 0.30-0.82 nozo=044) EOSINOPHILS ABSOLUTE COUNT (BEAKER) (test 0.06 K/ L 0.04-0.54 yvcc=827) BASOPHILS ABSOLUTE COUNT (BEAKER) (test 0.07 K/ L 0.01-0.08 zxiv=459) IMMATURE GRANULOCYTES-RELATIVE PERCENT (BEAKER) 2 % 0-1 (test ooou=9533) POCT-GLUCOSE [id number] 00:04:00 Test Item Value Reference Range Comments POC-GLUCOSE METER (BEAKER) 134 mg/dL 70-110 TESTED AT [address] (test casd=4871) [place] [id number] POCT-GLUCOSE [id number] 21:27:00 Test Item Value Reference Range Comments POC-GLUCOSE METER (BEAKER) 227 mg/dL 70-110 TESTED AT [address] (test fpox=9183) [place] [address] BODY FLUID CELL COUNT WITH [id number] 19:53:00 Test Item Value Reference Range Comments APPEARANCE FLUID (BEAKER) (test qvvy=757) Bloody Clear COLOR FLUID (BEAKER) (test yats=245) Red Colorless, Straw RBC FLUID (BEAKER) (test peyf=851) 739029 /cu mm <=1 ADJUSTED WBC FLUID (BEAKER) (test tqfa=4282) 3915 /cu mm <=5 LINING CELLS (BEAKER) (test zawq=1704) 0 /cu mm <=1 NEUTROPHILS FLUID (BEAKER) (test pypt=7667) 70 % LYMPHS FLUID (BEAKER) (test dzwj=091) 15 % MONO/MACROPHAGE FLUID (BEAKER) (test 14 % axob=558) EOSINOPHILS FLUID (BEAKER) (test vruv=035) 1 % BASO FLUID (BEAKER) (test ztqu=037) 0 % CONTAINER BODY FLUID (BEAKER) (test EDTA Tube hxbk=9882) ALBUMIN, BODY [id number] 19:29:00 Test Item Value Reference Range Comments ALBUMIN FLUID (BEAKER) (test tkis=362) 3.3 gm/dL Reference Range: No Normals Assay performance has not been validated for this type of specimen.[id number] 09:21:00 Test Item Value Reference Range Comments PROCALCITONIN (BEAKER) (test wjfk=1757) 0.53 ng/mL <0.05 SEPSIS RISK (ng/mL)Low: 0.05-0.50Intermediate: 0.51-2.00High: & gt;=2.01TROPONIN [id number] 08:35:00 Test Item Value Reference Range Comments TROPONIN I (BEAKER) (test rptt=662) 0.12 ng/mL 0.00-0.03 Troponin I (TnI) levels [...] NATRIURETIC PEPTIDE (BEAKER) (test 198 pg/mL 0-100 ghej=925) BASIC METABOLIC [id number] 08:30:00 Test Item Value Reference Range Comments SODIUM (BEAKER) (test 137 meq/L 136-145 udao=646) POTASSIUM (BEAKER) (test 3.6 meq/L 3.5-5.1 jbxo=819) CHLORIDE (BEAKER) (test 99 meq/L 98-107 sxxx=000) CO2 (BEAKER) (test 25 meq/L 22-29 umso=527) BLOOD UREA NITROGEN 21 mg/dL 7-21 (BEAKER) (test trrr=674) CREATININE (BEAKER) (test 5.31 mg/dL 0.57-1.25 kcjm=010) GLUCOSE RANDOM (BEAKER) 140 mg/dL 70-105 (test mrci=273) CALCIUM (BEAKER) (test 9.5 mg/dL 8.4-10.2 wuzd=237) EGFR (BEAKER) (test 11 mL/min/1.73 sq m ESTIMATED GFR IS NOT ptfl=9251) ACCURATE CREATININE CLEARANCE IN PREDICTING GLOMERULAR FILTRATION RATE. ESTIMATED GFR IS NOT APPLICABLE FOR DIALYSIS PATIENTS. HEPATIC FUNCTION [id number] 08:28:00 Test Item Value Reference Range Comments TOTAL PROTEIN (BEAKER) (test yyrt=479) 6.9 gm/dL 6.0-8.3 ALBUMIN (BEAKER) (test lpvz=9707) 3.9 g/dL 3.5-5.0 BILIRUBIN TOTAL (BEAKER) (test bqul=985) 0.6 mg/dL 0.2-1.2 BILIRUBIN DIRECT (BEAKER) (test zkkg=659) 0.2 mg/dL 0.1-0.5 ALKALINE PHOSPHATASE (BEAKER) (test eufo=745) 89 U/L 40-150 AST (SGOT) (BEAKER) (test bnhh=463) 10 U/L 5-34 ALT (SGPT) (BEAKER) (test qipr=993) 14 U/L 6-55 PROTHROMBIN [id number] 08:25:00 Test Item Value Reference Range Comments PROTIME (BEAKER) (test dbhq=060) 16.7 seconds 11.7-14.7 INR (BEAKER) (test yjfl=156) 1.4 <=5.9 RECOMMENDED COUMADIN/WARFARIN INR THERAPY RANGESSTANDARD DOSE: 2.0 - 3.0 Includes: PROPHYLAXIS forvenous thrombosis, systemic embolization; TREATMENT for venous thrombosis and/or pulmonary embolus.HIGH RISK: Target INR is 2.5-3.5 for patients with mechanical heart valves.RAD, CHEST, 1 VIEW, NON [id number] 08:09:00Reason for exam:->feverShould this be performed [...] Chan Verified Date/Time: 01/18/2019 08:09:08 Reading Location: [facility] Radiology Reading Room CBC W/PLT COUNT & AUTO [id number] 08:08:00 Test Item Value Reference Range Comments WHITE BLOOD CELL COUNT (BEAKER) (test nrvt=303) 11.0 K/ L 3.5-10.5 RED BLOOD CELL COUNT (BEAKER) (test engx=229) 2.51 M/ L 4.63-6.08 HEMOGLOBIN (BEAKER) (test ffge=532) 7.8 GM/DL 13.7-17.5 HEMATOCRIT (BEAKER) (test qiwg=368) 25.0 % 40.1-51.0 MEAN CORPUSCULAR VOLUME (BEAKER) (test agzq=659) 99.6 fL 79.0-92.2 MEAN CORPUSCULAR HEMOGLOBIN (BEAKER) (test 31.1 pg 25.7-32.2 vflh=066) MEAN CORPUSCULAR HEMOGLOBIN CONC (BEAKER) (test 31.2 GM/DL 32.3-36.5 dixb=583) RED CELL DISTRIBUTION WIDTH (BEAKER) (test 15.2 % 11.6-14.4 yprt=784) PLATELET COUNT (BEAKER) (test vosy=033) 294 K/CU MM 150-450 MEAN PLATELET VOLUME (BEAKER) (test jfsg=566) 11.7 fL 9.4-12.4 NUCLEATED RED BLOOD CELLS (BEAKER) (test 0 /100 WBC 0-0 gfoj=593) NEUTROPHILS RELATIVE PERCENT (BEAKER) (test 71 % txfi=137) LYMPHOCYTES RELATIVE PERCENT (BEAKER) (test 15 % agrf=287) MONOCYTES RELATIVE PERCENT (BEAKER) (test 11 % lhnz=392) EOSINOPHILS RELATIVE PERCENT (BEAKER) (test 1 % pgsa=104) BASOPHILS RELATIVE PERCENT (BEAKER) (test 1 % phnl=956) NEUTROPHILS ABSOLUTE COUNT (BEAKER) (test 7.74 K/ L 1.78-5.38 bdpf=734) LYMPHOCYTES ABSOLUTE COUNT (BEAKER) (test 1.67 K/ L 1.32-3.57 gnah=653) MONOCYTES ABSOLUTE COUNT (BEAKER) (test 1.19 K/ L 0.30-0.82 lgcw=007) EOSINOPHILS ABSOLUTE COUNT (BEAKER) (test 0.09 K/ L 0.04-0.54 ztsj=428) BASOPHILS ABSOLUTE COUNT (BEAKER) (test 0.09 K/ L 0.01-0.08 ioxs=028) IMMATURE GRANULOCYTES-RELATIVE PERCENT (BEAKER) 2 % 0-1 (test lkxf=7723) POCT-LACTIC ACID, [id number] 08:06:00 Test Item Value Reference Range Comments POC-LACTIC ACID, VENOUS 1.0 mmol/L 0.9-1.7 TESTED AT [address] (BEAKER) (test oezf=6374) [facility] [address] BLOOD [id number] 08:00:00 Test Item Value Reference Range Comments CULTURE (BEAKER) (test hpas=4298) No growth in 5 days BLOOD [id number] 08:00:00 Test Item Value Reference Range Comments CULTURE (BEAKER) (test qpwd=2777) No growth in 5 days HEMOGLOBIN [id number] 20:14:00 Test Item Value Reference Range Comments HEMOGLOBIN A1C (BEAKER) (test xiyb=146) 6.8 % 4.3-6.1 RAD, CHEST, 1 VIEW, NON [id number] 16:01:00Reason for exam:->respiratory insufficiencyShould this be performed at the bedside?->YesFINAL REPORT Clinical History: Respiratory insufficiency Comparison Study: January 07, 2019 Findings: The cardiac silhouette is enlarged. The lungs are within normal limits. The pleural spaces are clear. No significant bony or soft tissue abnormalities are seen. A stent projects over the left shoulder. Impression: Cardiomegaly. Signed: Acosta Becker MDReport Verified Date/Time: 01/08/2019 16:01:59 Reading Location: [facility] C013W Consult Reading Room Electronically signedby: ACOSTA BECKER M.D. on 01/08/2019 04:01 PMPOCT- GLUCOSE [id number] 12:01:00 Test Item Value Reference Range Comments POC-GLUCOSE METER (BEAKER) 178 mg/dL 70-110 TESTED AT [facility] [address] [facility] (test drjs=8915) [facility] [address] BASIC METABOLIC [id number] 06:13:00 Test Item Value Reference Range Comments SODIUM (BEAKER) (test 138 meq/L 136-145 youj=460) POTASSIUM (BEAKER) (test 4.6 meq/L 3.5-5.1 gxym=293) CHLORIDE (BEAKER) (test 101 meq/L 98-107 yywf=717) CO2 (BEAKER) (test 23 meq/L 22-29 msrl=516) BLOOD UREA NITROGEN 36 mg/dL 7-21 (BEAKER) (test cmkw=790) CREATININE (BEAKER) (test 6.83 mg/dL 0.57-1.25 erij=961) GLUCOSE RANDOM (BEAKER) 166 mg/dL 70-105 (test acpo=204) CALCIUM (BEAKER) (test 9.3 mg/dL 8.4-10.2 wxti=648) EGFR (BEAKER) (test 8 mL/min/1.73 sq m ESTIMATED GFR IS NOT gowz=3457) ACCURATE CREATININE CLEARANCE IN PREDICTING GLOMERULAR FILTRATION RATE. ESTIMATED GFR IS NOT APPLICABLE FOR DIALYSIS PATIENTS. CBC (HEMOGRAM ONLY)2019-01-08 05:22:00 Test Item Value Reference Range Comments WHITE BLOOD CELL COUNT (BEAKER) (test qjsb=929) 8.7 K/ L 3.5-10.5 RED BLOOD CELL COUNT (BEAKER) (test auil=635) 2.86 M/ L 4.63-6.08 HEMOGLOBIN (BEAKER) (test fjsv=894) 9.0 GM/DL 13.7-17.5 HEMATOCRIT (BEAKER) (test ddak=446) 29.4 % 40.1-51.0 MEAN CORPUSCULAR VOLUME (BEAKER) (test izjr=757) 102.8 fL 79.0-92.2 MEAN CORPUSCULAR HEMOGLOBIN (BEAKER) (test 31.5 pg 25.7-32.2 rawr=031) MEAN CORPUSCULAR HEMOGLOBIN CONC (BEAKER) (test 30.6 GM/DL 32.3-36.5 fxly=009) RED CELL DISTRIBUTION WIDTH (BEAKER) (test 14.5 % 11.6-14.4 bdmy=451) PLATELET COUNT (BEAKER) (test xgkc=938) 256 K/CU MM 150-450 MEAN PLATELET VOLUME (BEAKER) (test ijqu=073) 11.9 fL 9.4-12.4 NUCLEATED RED BLOOD CELLS (BEAKER) (test 0 /100 WBC 0-0 tons=091) POCT-GLUCOSE [id number] 21:50:00 Test Item Value Reference Range Comments POC-GLUCOSE METER (BEAKER) 211 mg/dL 70-110 TESTED AT [address] (test aeaf=0318) [place] [address] POCT-GLUCOSE [id number] 18:22:00 Test Item Value Reference Range Comments POC-GLUCOSE METER (BEAKER) 118 mg/dL 70-110 TESTED AT [address] (test krcv=6250) [place] [address] POCT-GLUCOSE [id number] 12:04:00 Test Item Value Reference Range Comments POC-GLUCOSE METER (BEAKER) 158 mg/dL 70-110 TESTED AT [address] (test zpho=4340) [place] [address] RAD, CHEST, 1 VIEW, NON [id number] 10:43:00Reason for exam:->respiratory insufficiencyShould this be performed at the bedside?->YesFINAL REPORT INDICATION: respiratory insufficiency COMPARISON:January 06 TECHNIQUE: Chest radiograph, single view, portable technique. FINDINGS / IMPRESSION: Enlarged heart shadow andnonspecific left retrocardiac opacity again demonstrated. Pulmonary veins are prominent but no overtpulmonary edema. No pneumothorax. Osseous structures unremarkable. Signed: Franky Turk MDReportVerified Date/Time: 01/07/2019 10:43:17 Reading Location: [facility] Radiology Reading Room POCT-GLUCOSE [id number] 08:09:00 Test Item Value Reference Range Comments POC-GLUCOSE METER (BEAKER) 145 mg/dL 70-110 TESTED AT [address] (test qtkt=0299) [facility] [address] POCT-GLUCOSE [id number] 21:32:00 Test Item Value Reference Range Comments POC-GLUCOSE METER (BEAKER) 274 mg/dL 70-110 TESTED AT [address] (test rpix=8008) [facility] [address] POCT-GLUCOSE [id number] 17:20:00 Test Item Value Reference Range Comments POC-GLUCOSE METER (BEAKER) 215 mg/dL 70-110 TESTED AT [address] (test tztb=5369) [facility] [address] POCT-GLUCOSE [id number] 14:33:00 Test Item Value Reference Range Comments POC-GLUCOSE METER (BEAKER) 200 mg/dL 70-110 TESTED AT [address] (test ykzc=1656) [facility] [address] POCT-GLUCOSE [id number] 11:13:00 Test Item Value Reference Range Comments POC-GLUCOSE METER (BEAKER) 289 mg/dL 70-110 TESTED AT [address] (test vxnp=6181) [facility] [address] POCT-GLUCOSE [id number] 08:08:00 Test Item Value Reference Range Comments POC-GLUCOSE METER (BEAKER) 180 mg/dL 70-110 TESTED AT [address] (test winy=8468) [facility] [address] RAD, CHEST, 1 VIEW, NON [id number] 07:40:00Reason for exam:->respiratory insufficiencyShould this be performed at the bedside?->YesFINAL REPORT Chest dated 01/06/2019 COMPARISON: 01/05/2019 Clinical Information:respiratory insufficiency Comment: Heart is enlarged. Pulmonary vasculature is indistinct. Interstitial disease is seen bilaterally suggestive of vascular congestion unchanged from prior study. There is small left pleural effusion. Signed: Yuridia Wallace MDReport Verified Date/Time: 01/06/2019 07:40:30 Reading Location: [facility] C013W Consult Reading Room Electronically signed by: YURIDIA WALLACE M.D.on 01/06/2019 07:40 AMBASIC METABOLIC [id number] 07: 18:00 Test Item Value Reference Range Comments SODIUM (BEAKER) (test 136 meq/L 136-145 vhhp=410) POTASSIUM (BEAKER) (test 5.2 meq/L 3.5-5.1 ahst=529) CHLORIDE (BEAKER) (test 100 meq/L 98-107 xuuv=557) CO2 (BEAKER) (test 21 meq/L 22-29 qpns=413) BLOOD UREA NITROGEN 49 mg/dL 7-21 (BEAKER) (test wkkb=154) CREATININE (BEAKER) (test 8.64 mg/dL 0.57-1.25 wclw=816) GLUCOSE RANDOM (BEAKER) 146 mg/dL 70-105 (test lmbs=893) CALCIUM (BEAKER) (test 9.6 mg/dL 8.4-10.2 ztfl=567) EGFR (BEAKER) (test 6 mL/min/1.73 sq m ESTIMATED GFR IS NOT kfcv=5609) ACCURATE CREATININE CLEARANCE IN PREDICTING GLOMERULAR FILTRATION RATE. ESTIMATED GFR IS NOT APPLICABLE FOR DIALYSIS PATIENTS. VANCOMYCIN LEVEL, [id number] 07:13:00 Test Item Value Reference Range Comments VANCOMYCIN RANDOM (BEAKER) (test kiec=600) 17.4 ug/mL Reference Range: No [id number] 07:09:00 Test Item Value Reference Range Comments MAGNESIUM (BEAKER) (test mrfq=450) 2.1 mg/dL 1.6-2.6 POCT-GLUCOSE [id number] 21:46:00 Test Item Value Reference Range Comments POC-GLUCOSE METER (BEAKER) 173 mg/dL 70-110 TESTED AT [facility] [address] [facility] (test plof=1676) [facility] [address] POCT-GLUCOSE [id number] 16:20:00 Test Item Value Reference Range Comments POC-GLUCOSE METER (BEAKER) 172 mg/dL 70-110 TESTED AT [facility] [address] [facility] (test zanc=2782) [facility] [address] POCT-GLUCOSE [id number] 12:21:00 Test Item Value Reference Range Comments POC-GLUCOSE METER (BEAKER) 260 mg/dL 70-110 TESTED AT [facility] [address] [facility] (test prae=7704) [facility] [address] POCT-GLUCOSE [id number] 08:37:00 Test Item Value Reference Range Comments POC-GLUCOSE METER (BEAKER) 153 mg/dL 70-110 TESTED AT [place] [id number] [facility] (test urvz=9361) [facility] [address] RAD, CHEST, 1 VIEW, NON [id number] 07:04:00Reason for exam:->respiratory insufficiencyShould this be performed at the bedside?->YesFINAL REPORT RAD, CHEST, 1 VIEW, NON DEPT INDICATION: respiratory insufficiency COMPARISON: Prior day's exam FINDINGS: Portable frontal view of the chest. IMPRESSION: Support Lines: External leads Lungs and pleura: Bibasilar subsegmental atelectasis No pneumothorax.Heart and mediastinum: Stable contours. Additional findings: None. Signed: Dasia Last Verified Date/Time: 01/05/2019 07:04:08 Reading Location: [address] Neuro Reading Room Electronically signed by: DASIA LAST MD on 2018 07:04 AMBASIC METABOLIC [id number] 05:47:00 Test Item Value Reference Range Comments SODIUM (BEAKER) (test 133 meq/L 136-145 jjui=222) POTASSIUM (BEAKER) (test 5.1 meq/L 3.5-5.1 rbod=861) CHLORIDE (BEAKER) (test 97 meq/L 98-107 qtov=543) CO2 (BEAKER) (test 25 meq/L 22-29 jygm=837) BLOOD UREA NITROGEN 33 mg/dL 7-21 (BEAKER) (test hkji=002) CREATININE (BEAKER) (test 6.56 mg/dL 0.57-1.25 dawa=681) GLUCOSE RANDOM (BEAKER) 156 mg/dL 70-105 (test grsa=549) CALCIUM (BEAKER) (test 9.6 mg/dL 8.4-10.2 tpil=567) EGFR (BEAKER) (test 9 mL/min/1.73 sq m ESTIMATED GFR IS NOT mlnk=2789) ACCURATE CREATININE CLEARANCE IN PREDICTING GLOMERULAR FILTRATION RATE. ESTIMATED GFR IS NOT APPLICABLE FOR DIALYSIS PATIENTS. [id number] 05:36:00 Test Item Value Reference Range Comments MAGNESIUM (BEAKER) (test frok=233) 1.9 mg/dL 1.6-2.6 CBC W/PLT COUNT & AUTO [id number] 05:18:00 Test Item Value Reference Range Comments WHITE BLOOD CELL COUNT (BEAKER) (test orgk=360) 10.5 K/ L 3.5-10.5 RED BLOOD CELL COUNT (BEAKER) (test xsoj=127) 2.73 M/ L 4.63-6.08 HEMOGLOBIN (BEAKER) (test mbjs=866) 8.6 GM/DL 13.7-17.5 HEMATOCRIT (BEAKER) (test bqbq=590) 27.1 % 40.1-51.0 MEAN CORPUSCULAR VOLUME (BEAKER) (test jybr=815) 99.3 fL 79.0-92.2 MEAN CORPUSCULAR HEMOGLOBIN (BEAKER) (test 31.5 pg 25.7-32.2 yjkf=755) MEAN CORPUSCULAR HEMOGLOBIN CONC (BEAKER) (test 31.7 GM/DL 32.3-36.5 bddb=395) RED CELL DISTRIBUTION WIDTH (BEAKER) (test 14.4 % 11.6-14.4 yftq=910) PLATELET COUNT (BEAKER) (test zxcb=203) 154 K/CU MM 150-450 MEAN PLATELET VOLUME (BEAKER) (test wfaw=158) 12.5 fL 9.4-12.4 NUCLEATED RED BLOOD CELLS (BEAKER) (test 0 /100 WBC 0-0 itls=210) NEUTROPHILS RELATIVE PERCENT (BEAKER) (test 78 % moco=223) LYMPHOCYTES RELATIVE PERCENT (BEAKER) (test 11 % msny=763) MONOCYTES RELATIVE PERCENT (BEAKER) (test 10 % qlte=321) EOSINOPHILS RELATIVE PERCENT (BEAKER) (test 0 % hmzy=405) BASOPHILS RELATIVE PERCENT (BEAKER) (test 1 % rrxn=956) NEUTROPHILS ABSOLUTE COUNT (BEAKER) (test 8.18 K/ L 1.78-5.38 xbkx=093) LYMPHOCYTES ABSOLUTE COUNT (BEAKER) (test 1.11 K/ L 1.32-3.57 qptz=270) MONOCYTES ABSOLUTE COUNT (BEAKER) (test 1.04 K/ L 0.30-0.82 jldp=219) EOSINOPHILS ABSOLUTE COUNT (BEAKER) (test 0.03 K/ L 0.04-0.54 dqsh=578) BASOPHILS ABSOLUTE COUNT (BEAKER) (test 0.05 K/ L 0.01-0.08 oquk=649) IMMATURE GRANULOCYTES-RELATIVE PERCENT (BEAKER) 1 % 0-1 (test uoxr=8942) BLOOD GAS, [id number] 05:12:00 Test Item Value Reference Range Comments PH ARTERIAL (BEAKER) (test dzlx=350) 7.44 7.35-7.45 PCO2 ARTERIAL (BEAKER) (test nkcx=220) 41 mmHg 35-45 PO2 ARTERIAL (BEAKER) (test xsle=814) 118 mmHg 80-90 O2 SATURATION ARTERIAL (BEAKER) (test osyi=324) 98.0 % 96.0-97.0 HCO3 ARTERIAL (BEAKER) (test rcjy=743) 26 mmol/L 21-29 BASE EXCESS ARTERIAL (BEAKER) (test rwjd=066) 2.7 mmol/L -2.0-3.0 PATIENT TEMPERATURE (BEAKER) (test zdxw=8985) 39.5 C FIO2 (BEAKER) (test fjgg=8074) 21.0 % LACTIC ACID, [id number] 05:00:00 Test Item Value Reference Range Comments LACTATE BLOOD ARTERIAL (2) (BEAKER) (test 1.0 mmol/L 0.5-2.2 psxi=7958) BASIC METABOLIC [id number] 23:29:00 Test Item Value Reference Range Comments SODIUM (BEAKER) (test 135 meq/L 136-145 cyuw=781) POTASSIUM (BEAKER) (test 4.9 meq/L 3.5-5.1 vuaw=593) CHLORIDE (BEAKER) (test 98 meq/L 98-107 huma=662) CO2 (BEAKER) (test 26 meq/L 22-29 prrp=554) BLOOD UREA NITROGEN 29 mg/dL 7-21 (BEAKER) (test kbji=978) CREATININE (BEAKER) (test 6.08 mg/dL 0.57-1.25 xwwa=607) GLUCOSE RANDOM (BEAKER) 192 mg/dL 70-105 (test kojc=138) CALCIUM (BEAKER) (test 9.6 mg/dL 8.4-10.2 hdjk=352) EGFR (BEAKER) (test 9 mL/min/1.73 sq m ESTIMATED GFR IS NOT clzd=2084) ACCURATE CREATININE CLEARANCE IN PREDICTING GLOMERULAR FILTRATION RATE. ESTIMATED GFR IS NOT APPLICABLE FOR DIALYSIS PATIENTS. [id number] 23:17:00 Test Item Value Reference Range Comments MAGNESIUM (BEAKER) (test dupk=236) 1.9 mg/dL 1.6-2.6 CBC W/PLT COUNT & AUTO [id number] 22:52:00 Test Item Value Reference Range Comments WHITE BLOOD CELL COUNT (BEAKER) (test xaar=839) 10.4 K/ L 3.5-10.5 RED BLOOD CELL COUNT (BEAKER) (test zwod=655) 2.82 M/ L 4.63-6.08 HEMOGLOBIN (BEAKER) (test xfwh=235) 8.8 GM/DL 13.7-17.5 HEMATOCRIT (BEAKER) (test bhez=418) 28.0 % 40.1-51.0 MEAN CORPUSCULAR VOLUME (BEAKER) (test nydh=163) 99.3 fL 79.0-92.2 MEAN CORPUSCULAR HEMOGLOBIN (BEAKER) (test 31.2 pg 25.7-32.2 lyhr=111) MEAN CORPUSCULAR HEMOGLOBIN CONC (BEAKER) (test 31.4 GM/DL 32.3-36.5 mtzn=573) RED CELL DISTRIBUTION WIDTH (BEAKER) (test 14.1 % 11.6-14.4 prdw=048) PLATELET COUNT (BEAKER) (test qucv=023) 152 K/CU MM 150-450 MEAN PLATELET VOLUME (BEAKER) (test ypcn=282) 12.5 fL 9.4-12.4 NUCLEATED RED BLOOD CELLS (BEAKER) (test 0 /100 WBC 0-0 qaos=244) NEUTROPHILS RELATIVE PERCENT (BEAKER) (test 80 % fnkx=283) LYMPHOCYTES RELATIVE PERCENT (BEAKER) (test 8 % bsxq=877) MONOCYTES RELATIVE PERCENT (BEAKER) (test 10 % rruh=729) EOSINOPHILS RELATIVE PERCENT (BEAKER) (test 0 % lyoj=215) BASOPHILS RELATIVE PERCENT (BEAKER) (test 0 % cwqg=314) NEUTROPHILS ABSOLUTE COUNT (BEAKER) (test 8.31 K/ L 1.78-5.38 aqxu=947) LYMPHOCYTES ABSOLUTE COUNT (BEAKER) (test 0.87 K/ L 1.32-3.57 nrsb=792) MONOCYTES ABSOLUTE COUNT (BEAKER) (test 1.06 K/ L 0.30-0.82 rrsu=819) EOSINOPHILS ABSOLUTE COUNT (BEAKER) (test 0.03 K/ L 0.04-0.54 eqyo=880) BASOPHILS ABSOLUTE COUNT (BEAKER) (test 0.04 K/ L 0.01-0.08 ugeh=897) IMMATURE GRANULOCYTES-RELATIVE PERCENT (BEAKER) 1 % 0-1 (test hpzn=8193) POCT-GLUCOSE [id number] 22:52:00 Test Item Value Reference Range Comments POC-GLUCOSE METER (BEAKER) 221 mg/dL 70-110 TESTED AT [address] (test uydp=7838) [place] [address] POCT-GLUCOSE [id number] 19:02:00 Test Item Value Reference Range Comments POC-GLUCOSE METER (BEAKER) 182 mg/dL 70-110 TESTED AT [address] (test zwij=1646) [place] [address] POCT-GLUCOSE [id number] 15:31:00 Test Item Value Reference Range Comments POC-GLUCOSE METER (BEAKER) 150 mg/dL 70-110 TESTED AT [address] (test tijh=8894) [place] [address] POCT-GLUCOSE [id number] 12:07:00 Test Item Value Reference Range Comments POC-GLUCOSE METER (BEAKER) 284 mg/dL 70-110 TESTED AT [address] (test ngis=0737) [place] [address] RAD, CHEST, 1 VIEW, NON [id number] 08:49:00Reason for exam:->respiratory insufficiencyShould this be performed at the bedside?->YesFINAL REPORT Clinical History: Respiratory insufficiency Comparison Study: January 03, 2019 Findings: The cardiac silhouette is enlarged. Mild interstitial markings are seen. The lungs are otherwise within normal limits. The pleural spaces are clear. No significant bony or soft tissue abnormalities are seen. Impression: Cardiomegaly. Signed: Acosta Beckereport Verified Date/Time: 01/04/2019 08:49:14 Reading Location: [facility] Radiology Reading Room BASIC METABOLIC [id number] 06:21:00 Test Item Value Reference Range Comments SODIUM (BEAKER) (test 135 meq/L 136-145 ameq=500) POTASSIUM (BEAKER) (test 5.5 meq/L 3.5-5.1 ncqk=064) CHLORIDE (BEAKER) (test 99 meq/L 98-107 qxfo=576) CO2 (BEAKER) (test 24 meq/L 22-29 qurx=771) BLOOD UREA NITROGEN 36 mg/dL 7-21 (BEAKER) (test onia=902) CREATININE (BEAKER) (test 7.37 mg/dL 0.57-1.25 mmya=274) GLUCOSE RANDOM (BEAKER) 203 mg/dL 70-105 (test jmqc=467) CALCIUM (BEAKER) (test 9.7 mg/dL 8.4-10.2 qbnp=481) EGFR (BEAKER) (test 7 mL/min/1.73 sq m ESTIMATED GFR IS NOT rwrw=4223) ACCURATE CREATININE CLEARANCE IN PREDICTING GLOMERULAR FILTRATION RATE. ESTIMATED GFR IS NOT APPLICABLE FOR DIALYSIS PATIENTS. [id number] 06:09:00 Test Item Value Reference Range Comments POTASSIUM (BEAKER) (test mpbf=061) 5.5 meq/L 3.5-5.1 [id number] 06:09:00 Test Item Value Reference Range Comments MAGNESIUM (BEAKER) (test aiwp=136) 2.2 mg/dL 1.6-2.6 [id number] 06:09:00 Test Item Value Reference Range Comments PHOSPHORUS (BEAKER) (test csld=727) 5.8 mg/dL 2.3-4.7 CBC W/PLT COUNT & AUTO [id number] 05:54:00 Test Item Value Reference Range Comments WHITE BLOOD CELL COUNT (BEAKER) (test qrpb=488) 11.3 K/ L 3.5-10.5 RED BLOOD CELL COUNT (BEAKER) (test lkrk=940) 2.88 M/ L 4.63-6.08 HEMOGLOBIN (BEAKER) (test dsmu=909) 9.1 GM/DL 13.7-17.5 HEMATOCRIT (BEAKER) (test qhow=703) 28.6 % 40.1-51.0 MEAN CORPUSCULAR VOLUME (BEAKER) (test tigx=973) 99.3 fL 79.0-92.2 MEAN CORPUSCULAR HEMOGLOBIN (BEAKER) (test 31.6 pg 25.7-32.2 luks=505) MEAN CORPUSCULAR HEMOGLOBIN CONC (BEAKER) (test 31.8 GM/DL 32.3-36.5 osmp=748) RED CELL DISTRIBUTION WIDTH (BEAKER) (test 14.4 % 11.6-14.4 xtby=757) PLATELET COUNT (BEAKER) (test dank=379) 165 K/CU MM 150-450 MEAN PLATELET VOLUME (BEAKER) (test cbze=386) 12.4 fL 9.4-12.4 NUCLEATED RED BLOOD CELLS (BEAKER) (test 0 /100 WBC 0-0 bykw=693) NEUTROPHILS RELATIVE PERCENT (BEAKER) (test 76 % elfr=736) LYMPHOCYTES RELATIVE PERCENT (BEAKER) (test 11 % fggu=919) MONOCYTES RELATIVE PERCENT (BEAKER) (test 11 % pxun=406) EOSINOPHILS RELATIVE PERCENT (BEAKER) (test 0 % ofca=251) BASOPHILS RELATIVE PERCENT (BEAKER) (test 0 % fmtv=654) NEUTROPHILS ABSOLUTE COUNT (BEAKER) (test 8.59 K/ L 1.78-5.38 cklg=635) LYMPHOCYTES ABSOLUTE COUNT (BEAKER) (test 1.28 K/ L 1.32-3.57 hdlh=491) MONOCYTES ABSOLUTE COUNT (BEAKER) (test 1.26 K/ L 0.30-0.82 xwin=711) EOSINOPHILS ABSOLUTE COUNT (BEAKER) (test 0.04 K/ L 0.04-0.54 ksnl=992) BASOPHILS ABSOLUTE COUNT (BEAKER) (test 0.05 K/ L 0.01-0.08 fhtp=094) IMMATURE GRANULOCYTES-RELATIVE PERCENT (BEAKER) 1 % 0-1 (test kfkf=9570) BLOOD GAS, [id number] 05:34:00 Test Item Value Reference Range Comments PH ARTERIAL (BEAKER) (test zisc=640) 7.41 7.35-7.45 PCO2 ARTERIAL (BEAKER) (test uzwj=674) 42 mmHg 35-45 PO2 ARTERIAL (BEAKER) (test xpuv=841) 105 mmHg 80-90 O2 SATURATION ARTERIAL (BEAKER) (test lbcb=577) 97.7 % 96.0-97.0 HCO3 ARTERIAL (BEAKER) (test yuoi=247) 26 mmol/L 21-29 BASE EXCESS ARTERIAL (BEAKER) (test lzyj=438) 0.9 mmol/L -2.0-3.0 PATIENT TEMPERATURE (BEAKER) (test nmii=4576) 37.5 C FIO2 (BEAKER) (test llwz=4861) 21.0 % HEPATITIS B SURFACE [id number] 03:29:00 Test Item Value Reference Range Comments HEPATITIS B SURFACE ANTIGEN (2) (BEAKER) (test Nonreactive Nonreactive gshw=5924) TROPONIN [id number] 03:04:00 Test Item Value Reference Range Comments TROPONIN I (BEAKER) (test lppg=023) 2.70 ng/mL 0.00-0.03 Troponin I (TnI) levels [...] Range Comments CREATINE KINASE TOTAL (BEAKER) (test zqko=316) 340 U/L 29-200 [id number] 02:42:00 Test Item Value Reference Range Comments PROTIME (BEAKER) (test kzuy=514) 22.0 seconds 11.7-14.7 INR (BEAKER) (test uixt=549) 2.0 <=5.9 PARTIAL THROMBOPLASTIN TIME (BEAKER) (test 114.6 seconds 22.5-36.0 gncf=057) RECOMMENDED COUMADIN/WARFARIN INR THERAPY RANGESSTANDARD DOSE: 2.0 - 3.0 Includes: PROPHYLAXIS forvenous thrombosis, systemic embolization; TREATMENT for venous thrombosis and/or pulmonary embolus.HIGH RISK: Target INR is 2.5-3.5 for patients with mechanical heart valves.BLOOD GAS, [id number] 02:15:00 Test Item Value Reference Range Comments PH ARTERIAL (BEAKER) (test ylwh=329) 7.35 7.35-7.45 PCO2 ARTERIAL (BEAKER) (test gdge=968) 47 mmHg 35-45 PO2 ARTERIAL (BEAKER) (test xbbg=386) 78 mmHg 80-90 O2 SATURATION ARTERIAL (BEAKER) (test bnad=120) 94.6 % 96.0-97.0 HCO3 ARTERIAL (BEAKER) (test zctz=565) 25 mmol/L 21-29 BASE EXCESS ARTERIAL (BEAKER) (test sjgm=072) -0.5 mmol/L -2.0-3.0 PATIENT TEMPERATURE (BEAKER) (test wfmo=7945) 37.5 C FIO2 (BEAKER) (test awnj=7321) 21.0 % POCT-GLUCOSE [id number] 00:41:00 Test Item Value Reference Range Comments POC-GLUCOSE METER (BEAKER) 237 mg/dL 70-110 TESTED AT [facility] [address] [facility] (test xlgq=8568) [facility] [address] TROPONIN [id number] 00:28:00 Test Item Value Reference Range Comments TROPONIN I (BEAKER) (test sids=927) 1.65 ng/mL 0.00-0.03 Troponin I (TnI) levels [...] acute neurological disease, and persistent tachyarrhythmia.COMPREHENSIVE METABOLIC [id number] 00:24:00 Test Item Value Reference Range Comments TOTAL PROTEIN (BEAKER) 6.4 gm/dL 6.0-8.3 (test qnuf=105) ALBUMIN (BEAKER) (test 3.6 g/dL 3.5-5.0 eojj=7946) ALKALINE PHOSPHATASE 75 U/L 40-150 (BEAKER) (test lcrb=958) BILIRUBIN TOTAL (BEAKER) 0.5 mg/dL 0.2-1.2 (test qjzh=015) SODIUM (BEAKER) (test 133 meq/L 136-145 xors=019) POTASSIUM (BEAKER) (test 5.7 meq/L 3.5-5.1 qyla=120) CHLORIDE (BEAKER) (test 99 meq/L 98-107 qiks=459) CO2 (BEAKER) (test 25 meq/L 22-29 ulty=264) BLOOD UREA NITROGEN 33 mg/dL 7-21 (BEAKER) (test fuhf=829) CREATININE (BEAKER) (test 6.92 mg/dL 0.57-1.25 hqgo=046) GLUCOSE RANDOM (BEAKER) 234 mg/dL 70-105 (test dqna=164) CALCIUM (BEAKER) (test 9.1 mg/dL 8.4-10.2 mzll=726) AST (SGOT) (BEAKER) (test 15 U/L 5-34 lnhe=631) ALT (SGPT) (BEAKER) (test 17 U/L 6-55 tbvh=458) EGFR (BEAKER) (test 8 mL/min/1.73 sq m ESTIMATED GFR IS NOT qssc=3424) ACCURATE CREATININE CLEARANCE IN PREDICTING GLOMERULAR FILTRATION RATE. ESTIMATED GFR IS NOT APPLICABLE FOR DIALYSIS PATIENTS. [id number] 00:21:00 Test Item Value Reference Range Comments MAGNESIUM (BEAKER) (test jwxv=507) 2.0 mg/dL 1.6-2.6 LACTIC ACID, [id number] 00:16:00 Test Item Value Reference Range Comments LACTATE BLOOD ARTERIAL (2) (BEAKER) (test 1.3 mmol/L 0.5-2.2 wwkt=9622) BLOOD GAS, [id number] 23:54:00 Test Item Value Reference Range Comments PH ARTERIAL (BEAKER) (test rcwx=479) 7.32 7.35-7.45 PCO2 ARTERIAL (BEAKER) (test stqc=157) 51 mmHg 35-45 PO2 ARTERIAL (BEAKER) (test xepx=406) 133 mmHg 80-90 O2 SATURATION ARTERIAL (BEAKER) (test amrl=413) 98.4 % 96.0-97.0 HCO3 ARTERIAL (BEAKER) (test gafh=295) 26 mmol/L 21-29 BASE EXCESS ARTERIAL (BEAKER) (test sqpx=836) -0.3 mmol/L -2.0-3.0 PATIENT TEMPERATURE (BEAKER) (test mlgd=1161) 37.0 C FIO2 (BEAKER) (test jllu=8354) 40.0 % RAD, CHEST, 1 VIEW, NON [id number] 22:24:00Reason for exam:-> hypotensionShould this be performed at the bedside?->YesFINAL REPORT Chest dated 01/03/2019 Clinical Information: hypotension Comment: Heart is enlarged. Pulmonary vasculature is indistinct. Interstitial disease is seen bilaterally suggestive of vascular congestion. Endotracheal tube is present. A curvilinear radiopaque density is seen in the mid upper chest. Please correlate clinically. Signed: Yuridia Wallace MDReport Verified Date/Time: 01/03/2019 22:24:07 Reading Location: [address] Consult Reading Room BASI METABOLIC [id number] 22:08:00 Test Item Value Reference Range Comments SODIUM (BEAKER) (test 136 meq/L 136-145 edmx=261) POTASSIUM (BEAKER) (test 5.2 meq/L 3.5-5.1 Specimen slightly quhy=863) hemolyzed CHLORIDE (BEAKER) (test 104 meq/L 98-107 bdqs=689) CO2 (BEAKER) (test 22 meq/L 22-29 enyf=016) BLOOD UREA NITROGEN 27 mg/dL 7-21 (BEAKER) (test xyrh=775) CREATININE (BEAKER) (test 5.82 mg/dL 0.57-1.25 Specimen slightly zero=276) hemolyzed GLUCOSE RANDOM (BEAKER) 220 mg/dL 70-105 (test upxx=689) CALCIUM (BEAKER) (test 8.0 mg/dL 8.4-10.2 fjdo=563) EGFR (BEAKER) (test 10 mL/min/1.73 sq m ESTIMATED GFR IS NOT yiks=2384) ACCURATE CREATININE CLEARANCE IN PREDICTING GLOMERULAR FILTRATION RATE. ESTIMATED GFR IS NOT APPLICABLE FOR DIALYSIS PATIENTS. [id number] 22:07:00 Test Item Value Reference Range Comments MAGNESIUM (BEAKER) (test 2.0 mg/dL 1.6-2.6 Specimen slightly hemolyzed orkd=135) [id number] 22:07:00 Test Item Value Reference Range Comments PHOSPHORUS (BEAKER) (test 5.1 mg/dL 2.3-4.7 Specimen slightly hemolyzed ultr=031) POTASSIUM-STAT [id number] 21:42:00 Test Item Value Reference Range Comments POTASSIUM (BEAKER) (test ldno=143) 4.7 meq/L 3.6-5.5 GLUCOSE-STAT [id number] 21:42:00 Test Item Value Reference Range Comments GLUCOSE RANDOM (BEAKER) (test pjcx=649) 205 mg/dL 70-110 SODIUM NA-STAT [id number] 21:42:00 Test Item Value Reference Range Comments SODIUM (BEAKER) (test zqrn=104) 134 meq/L 135-148 HGB/HCT (H&H) - STAT [id number] 21:42:00 Test Item Value Reference Range Comments HEMOGLOBIN (BEAKER) (test cijq=429) 8.3 g/dL 13.0-16.8 HEMATOCRIT (BEAKER) (test aaba=289) 24.0 % 40.0-50.0 [id number] 21:34:00 Test Item Value Reference Range Comments PROTIME (BEAKER) (test djmh=723) 54.5 seconds 11.7-14.7 INR (BEAKER) (test zvgu=227) 6.6 <=5.9 PARTIAL THROMBOPLASTIN TIME (BEAKER) (test 116.0 seconds 22.5-36.0 eqiz=536) RECOMMENDED COUMADIN/WARFARIN INR THERAPY RANGESSTANDARD DOSE: 2.0 - 3.0 Includes: PROPHYLAXIS forvenous thrombosis, systemic embolization; TREATMENT for venous thrombosis and/or pulmonary embolus.HIGH RISK: Target INR is 2.5-3.5 for patients with mechanical heart valves.LACTIC ACID, [id number] 21:27:00 Test Item Value Reference Range Comments LACTATE BLOOD VENOUS (2) 1.7 mmol/L 0.5-2.2 Specimen moderately hemolyzed (BEAKER) (test uive=7290) CBC W/PLT COUNT & AUTO [id number] 21:16:00 Test Item Value Reference Range Comments WHITE BLOOD CELL COUNT (BEAKER) (test zqpw=467) 13.2 K/ L 3.5-10.5 RED BLOOD CELL COUNT (BEAKER) (test rixe=816) 2.96 M/ L 4.63-6.08 HEMOGLOBIN (BEAKER) (test swim=918) 9.5 GM/DL 13.7-17.5 HEMATOCRIT (BEAKER) (test pymw=720) 29.8 % 40.1-51.0 MEAN CORPUSCULAR VOLUME (BEAKER) (test pueu=162) 100.7 fL 79.0-92.2 MEAN CORPUSCULAR HEMOGLOBIN (BEAKER) (test 32.1 pg 25.7-32.2 tjfq=616) MEAN CORPUSCULAR HEMOGLOBIN CONC (BEAKER) (test 31.9 GM/DL 32.3-36.5 fdhs=909) RED CELL DISTRIBUTION WIDTH (BEAKER) (test 14.6 % 11.6-14.4 tfgd=451) PLATELET COUNT (BEAKER) (test jqdc=559) 188 K/CU MM 150-450 MEAN PLATELET VOLUME (BEAKER) (test nhhe=823) 12.2 fL 9.4-12.4 NUCLEATED RED BLOOD CELLS (BEAKER) (test 0 /100 WBC 0-0 ekrx=681) NEUTROPHILS RELATIVE PERCENT (BEAKER) (test 74 % aahd=862) LYMPHOCYTES RELATIVE PERCENT (BEAKER) (test 14 % uxld=571) MONOCYTES RELATIVE PERCENT (BEAKER) (test 11 % wsxz=129) EOSINOPHILS RELATIVE PERCENT (BEAKER) (test 0 % tmdc=640) BASOPHILS RELATIVE PERCENT (BEAKER) (test 0 % ljkh=422) NEUTROPHILS ABSOLUTE COUNT (BEAKER) (test 9.78 K/ L 1.78-5.38 gofc=363) LYMPHOCYTES ABSOLUTE COUNT (BEAKER) (test 1.81 K/ L 1.32-3.57 ulpn=326) MONOCYTES ABSOLUTE COUNT (BEAKER) (test 1.46 K/ L 0.30-0.82 fnem=414) EOSINOPHILS ABSOLUTE COUNT (BEAKER) (test 0.01 K/ L 0.04-0.54 tudv=803) BASOPHILS ABSOLUTE COUNT (BEAKER) (test 0.04 K/ L 0.01-0.08 eumw=051) IMMATURE GRANULOCYTES-RELATIVE PERCENT (BEAKER) 1 % 0-1 (test efjs=2819) BLOOD GAS, [id number] 21:03:00 Test Item Value Reference Range Comments PH ARTERIAL (BEAKER) (test xkvg=826) 7.34 7.35-7.45 PCO2 ARTERIAL (BEAKER) (test deph=184) 49 mmHg 35-45 PO2 ARTERIAL (BEAKER) (test fyjp=538) 102 mmHg 80-90 O2 SATURATION ARTERIAL (BEAKER) (test yuzv=379) 97.3 % 96.0-97.0 HCO3 ARTERIAL (BEAKER) (test pffa=698) 25 mmol/L 21-29 BASE EXCESS ARTERIAL (BEAKER) (test shic=047) -0.8 mmol/L -2.0-3.0 PATIENT TEMPERATURE (BEAKER) (test amlk=0579) 37.0 C FIO2 (BEAKER) (test yjsd=5697) 40.0 % [id number] 18:33:00 Test Item Value Reference Range Comments ACTIVATED CLOTTING TIME 384 sec TESTED AT [facility] [address] [facility] (BEAKER) (test xjzs=890) [facility] [address] PROTHROMBIN [id number] 14:04:00 Test Item Value Reference Range Comments PROTIME (BEAKER) (test iprp=283) 14.3 seconds 11.7-14.7 INR (BEAKER) (test uqcl=710) 1.2 <=5.9 RECOMMENDED COUMADIN/WARFARIN INR THERAPY RANGESSTANDARD DOSE: 2.0 - 3.0 Includes: PROPHYLAXIS forvenous thrombosis, systemic embolization; TREATMENT for venous thrombosis and/or pulmonary embolus.HIGH RISK: Target INR is 2.5-3.5 for patients with mechanical heart valves.CBC W/PLT COUNT & AUTO [id number] 14:00:00 Test Item Value Reference Range Comments WHITE BLOOD CELL COUNT (BEAKER) (test mrhh=706) 15.0 K/ L 3.5-10.5 RED BLOOD CELL COUNT (BEAKER) (test puyg=716) 3.01 M/ L 4.63-6.08 HEMOGLOBIN (BEAKER) (test oaej=862) 9.7 GM/DL 13.7-17.5 HEMATOCRIT (BEAKER) (test ocsa=260) 30.3 % 40.1-51.0 MEAN CORPUSCULAR VOLUME (BEAKER) (test rnir=792) 100.7 fL 79.0-92.2 MEAN CORPUSCULAR HEMOGLOBIN (BEAKER) (test 32.2 pg 25.7-32.2 ffrs=257) MEAN CORPUSCULAR HEMOGLOBIN CONC (BEAKER) (test 32.0 GM/DL 32.3-36.5 kvpp=811) RED CELL DISTRIBUTION WIDTH (BEAKER) (test 14.6 % 11.6-14.4 gfty=933) PLATELET COUNT (BEAKER) (test mjif=117) 196 K/CU MM 150-450 MEAN PLATELET VOLUME (BEAKER) (test dboc=249) 12.4 fL 9.4-12.4 NUCLEATED RED BLOOD CELLS (BEAKER) (test 0 /100 WBC 0-0 wevm=717) NEUTROPHILS RELATIVE PERCENT (BEAKER) (test 82 % ansh=850) LYMPHOCYTES RELATIVE PERCENT (BEAKER) (test 7 % wmfu=448) MONOCYTES RELATIVE PERCENT (BEAKER) (test 10 % jakt=979) EOSINOPHILS RELATIVE PERCENT (BEAKER) (test 0 % vvvu=913) BASOPHILS RELATIVE PERCENT (BEAKER) (test 0 % ubxa=050) NEUTROPHILS ABSOLUTE COUNT (BEAKER) (test 12.24 K/ L 1.78-5.38 fvcn=724) LYMPHOCYTES ABSOLUTE COUNT (BEAKER) (test 1.10 K/ L 1.32-3.57 kbnh=612) MONOCYTES ABSOLUTE COUNT (BEAKER) (test 1.43 K/ L 0.30-0.82 syjg=950) EOSINOPHILS ABSOLUTE COUNT (BEAKER) (test 0.01 K/ L 0.04-0.54 pxcr=147) BASOPHILS ABSOLUTE COUNT (BEAKER) (test 0.06 K/ L 0.01-0.08 epbh=660) IMMATURE GRANULOCYTES-RELATIVE PERCENT (BEAKER) 1 % 0-1 (test kftt=6026) TROPONIN [id number] 12:20:00 Test Item Value Reference Range Comments TROPONIN I (BEAKER) (test fceu=534) < ng/mL 0.00-0.03 Troponin I (TnI) levels [...] acute neurological disease, and persistent tachyarrhythmia.COMPREHENSIVE METABOLIC [id number] 12:15:00 Test Item Value Reference Range Comments TOTAL PROTEIN (BEAKER) 7.0 gm/dL 6.0-8.3 (test pnjq=562) ALBUMIN (BEAKER) (test 4.1 g/dL 3.5-5.0 vmjh=0949) ALKALINE PHOSPHATASE 85 U/L 40-150 (BEAKER) (test nbal=040) BILIRUBIN TOTAL (BEAKER) 0.5 mg/dL 0.2-1.2 (test mkmg=285) SODIUM (BEAKER) (test 138 meq/L 136-145 rqki=243) POTASSIUM (BEAKER) (test 5.4 meq/L 3.5-5.1 vntf=572) CHLORIDE (BEAKER) (test 101 meq/L 98-107 vqwk=164) CO2 (BEAKER) (test 24 meq/L 22-29 pxeo=150) BLOOD UREA NITROGEN 24 mg/dL 7-21 (BEAKER) (test slvh=780) CREATININE (BEAKER) (test 5.83 mg/dL 0.57-1.25 fqbk=512) GLUCOSE RANDOM (BEAKER) 213 mg/dL 70-105 (test sswk=576) CALCIUM (BEAKER) (test 9.4 mg/dL 8.4-10.2 ysea=649) AST (SGOT) (BEAKER) (test 16 U/L 5-34 yjqj=619) ALT (SGPT) (BEAKER) (test 23 U/L 6-55 ckcq=405) EGFR (BEAKER) (test 10 mL/min/1.73 sq m ESTIMATED GFR IS NOT avyz=8221) ACCURATE CREATININE CLEARANCE IN PREDICTING GLOMERULAR FILTRATION RATE. ESTIMATED GFR IS NOT APPLICABLE FOR DIALYSIS PATIENTS. LIPID [id number] 12:13:00 Test Item Value Reference Range Comments TRIGLYCERIDES (BEAKER) (test ofjw=764) 158 mg/dL CHOLESTEROL (BEAKER) (test wjss=266) 113 mg/dL HDL CHOLESTEROL (BEAKER) (test mtwp=464) 34 mg/dL LDL CHOLESTEROL CALCULATED (BEAKER) (test 47 mg/dL pfae=304) Triglyceride Reference Range: Low Risk <150 Borderline 150- 199 High Risk 200-499 Very High Risk >=500Cholesterol Reference Range: Low Risk <200 Borderline 200-239 High Risk > 240HDL Cholesterol Reference Range: Low Risk >=60 High Risk <40LDL Cholesterol Reference Range: Optimal <100 Near Optimal 100-129 Borderline 130-159 High 160-189 Very High >=190POCT-GLUCOSE [id number] 11:26:00 Test Item Value Reference Range Comments POC-GLUCOSE METER (BEAKER) 291 mg/dL 70-110 TESTED AT [facility] [address] [place] [address] (test hoxp=1071) [facility] [address]
[2019-11-06] MEDS ORDERED: ALBUTEROL 2.5 MG/3 ML NEB SOL NEB PRN (23:23)
[2019-11-06] MEDS ORDERED: HYDROCODONE/APAP 7.5/325 MG TAB PO PRN (23:43)
[2019-11-07] MEDS ORDERED: FEXOFENADINE 180 MG TAB PO PRN (02:02)
[2019-11-07] MEDS ORDERED: GLUCAGON 1 MG/VIAL IM PRN (02:17)
[2019-11-07] MEDS ORDERED: D50W 25 GM/50 ML SYRINGE IV PRN (02:17)
[2019-11-07] MEDS ORDERED: LIDOCAINE/PRILOCAINE CREAM TOP PRN (02:17)
[2019-11-07 06:30] LABS: Absolute Lymphocytes (CBC) 1.1 K/uL (0.7-4.9); Basophils % 1.1 % (0-1.3); Hematocrit 23.2 % (39.6-49.0); Lymphocytes % 19.8 % (15.3-44.8); MPV 9.1 fL (7.6-11.3); RBC Red Blood Cell Count 2.55 M/uL (4.33-5.43)
[2019-11-07 06:42] LABS: Albumin 2.8 g/dL (3.4-5.0); Magnesium 2.2 mg/dL (1.8-2.4); Potassium 3.8 mmol/L (3.5-5.1); Prealbumin 23.1 mg/dL (20-40)
[2019-11-07] MEDS: INSULIN -REGULAR HUMAN 50 UNIT/0.5 ML ML SQ SCH ×4 (07:30→20:21)
[2019-11-07] MEDS: PANTOPRAZOLE 40MG TABLET PO SCH ×2 (08:45→17:17)
[2019-11-07] MEDS: FERROUS SULFATE 325 MG TAB PO SCH (09:00)
[2019-11-07] MEDS: POLYETHYL GLY 3350 17 GM/DOSE PO SCH (09:00)
[2019-11-07] MEDS: DOCOSAHEXANOIC AC/EPA 1000 MG PO SCH ×2 (09:00→20:18)
[2019-11-07] MEDS: DOCUSATE NA 100 MG CAP PO SCH ×2 (09:00→20:18)
[2019-11-07] MEDS: VITAMIN D 5,000 UNIT CAP PO SCH (09:00)
[2019-11-07] MEDS: ASPIRIN 81 MG CHEWABLE TABLET PO SCH (09:00)
[2019-11-07] MEDS: FE SULF/FA/VIT B COMP & C TAB PO SCH (09:00)
[2019-11-07] MEDS: APIXABAN 2.5 MG TABLET PO SCH ×2 (09:00→20:18)
[2019-11-07] MEDS: SEVELAMER CARBONATE 800 MG TABLET PO SCH ×3 (09:00→17:16)
[2019-11-07] MEDS: METOPROLOL TAR 25 MG TAB PO SCH ×2 (09:07→20:19)
[2019-11-07] MEDS: GABAPENTIN 300 MG CAP PO SCH ×3 (09:09→20:19)
[2019-11-07] MEDS: INSULIN GLARGINE 100 UNITS/ML SQ SCH ×2 (09:49→20:20)
[2019-11-07] MEDS: HYDROCODONE/APAP 7.5/325 MG TAB PO PRN ×3 (09:50→21:03)
--- NOTE | 2019-11-07 16:22 | P.CNS ---
Date of Consult: 11/07/19 Reason for Consult: ESRD Requesting Physician: James Jules Chief Complaint: Generalized weakness History of Present Illness: 69 yo WM HTN, CKD presents to the [facility] with moderate, persistent, generalized weakness sp a recent CABG due to progressive CAD. Reports persistent edema. Last HD on Monday. Allergies sulfamethoxazole [From Bactrim] Allergy (Verified 11/07/19 02:52) Hives tetracycline Allergy (Verified 11/07/19 02:52) Hives trimethoprim [From Bactrim] Allergy (Verified 11/07/19 02:52) Hives Home medications list reviewed: Yes Home Medications: Apixaban [Eliquis *] 2.5 mg PO BID 04/23/19 Cholecalciferol (Vitamin D3) [Vitamin D3] 10,000 unit PO DAILY 04/23/19 Docusate [Colace Cap*] 200 mg PO BID 04/23/19 Fexofenadine HCl [Cami Allergy] 180 mg PO BEDTIME 04/23/19 Gabapentin 300 mg PO TID 04/23/19 Hydrocodone Bit/Acetaminophen [Hydrocodon-Acetaminoph 7.5-325] 1 each PO BIDP PRN 04/23/19 Insulin Glargine,Hum.rec.anlog [Lantus Solostar] 20 unit SQ BREAKFAST 04/23/19 Montelukast [Singulair*] 10 mg PO BEDTIME 04/23/19 [place]-3/Dha/Epa/Fish Oil [[place] 3 500 Softgel] 2 each PO BID 04/23/19 Pantoprazole [Protonix Tab*] 40 mg PO BID 04/23/19 Sevelamer Carbonate [Renvela*] 1,600 mg PO TIDWM 04/23/19 Aspirin Chewable [Aspirin Chewable*] 81 mg PO DAILY 11/07/19 Atorvastatin Calcium [Lipitor] 40 mg PO BEDTIME 11/07/19 Insulin Glargine Human [Lantus] 10 unit SQ BEDTIME 11/07/19 Lidocaine/Prilocaine Crm [Emla Cream*] 1 leonides TOP PRN PRN 11/07/19 Metoprolol Tartrate [Lopressor] 12.5 mg PO BID 11/07/19 Midodrine HCl 10 mg PO SEECOM 03/05/20 Polyethyl Gly 3350 [Glycolax*] 17 gm PO DAILY 11/07/19 - Past Medical/Surgical History Diabetic: Yes -: End-stage renal disease on hemodialysis, M/W/F -: Atrial fibrillation on chronic anti coagulation therapy -: CAD w cardiac stents -: Hyperlipidemia -: Diabetic neuropathy -: Diabetes mellitus type 2, insulin dependent -: Obstructive sleep apnea -: pericardial tamponade, pericarditis -: pulmonary embolism -: hepatitis A -: kidney stones -: pleural effusion -: pacemaker placement 04/29/19 -: thoracentesis -: Left cath & PCI- 01/03/19 & 10/23/19 -: BYPASS- aorto coronary 10/28/19 -: Sternotomy- median thoracic 10/28/19 -: Endoscopic vein harvest 10/28/19 Psychosocial/ Personal History: Patient is . Lives at home. - Family History Father Medical History: Cancer - Social History Alcohol use: No CD- Drugs: No Caffeine use: Yes Place of Residence: Home Review of Systems 10-point ROS is otherwise unremarkable General: Weakness Respiratory: SOB with Excertion Cardiovascular: Edema Neurological: Weakness Physical Examination Temp Pulse Resp BP Pulse Ox 97.6 F 74 18 116/56 L 96 11/07/19 08:00 11/07/19 09:07 11/07/19 14:52 11/07/19 09:07 11/07/19 14:52 General: In no apparent distress, Oriented x3, Cooperative HEENT: Atraumatic Neck: Supple Respiratory: Clear to auscultation bilaterally Cardiovascular: Edema Gastrointestinal: Normal bowel sounds, Soft and benign Musculoskeletal: No clubbing, No contractures Integumentary: No rashes, No cyanosis, Skin lesion Neurological: Normal speech Laboratory Data (last 24 hrs) 11/07/19 05:40: Sodium 140, Potassium 3.8, BUN 24 H, Creatinine 4.82 H, Glucose 116 H, Magnesium 2.2 11/07/19 05:40: WBC 5.7, Hgb 7.8 L*, Hct 23.2 L, Plt Count 273 Conclusions/Impression: A/ ESRD on HD. HTN with CKD/ CHF. CHRIS on CPAP. Diastolic CHF, chronic. DM II with CKD. Anemia in CKD. LADONNA/ Secondary HyperPTH. Nephrolithiasis. CAD. P/ Continue current POC and Medications. Next HD on Monday. Give Retacrit. Restart home medications as indicated. Encourage nutrition. PT as tolerated. No NSAIDs. AM labs PRN. Daily weight. Thank you kindly for the consultation. Case reviewed with Dr. Jules.
[2019-11-07] MEDS ORDERED: MANNITOL 25% 12.5 GM/50 ML VIAL IV PRN (16:59)
[2019-11-07] MEDS ORDERED: NA CHLORIDE 0.9% 1,000 ML IV PRN (16:59)
[2019-11-07] MEDS ORDERED: ALBUMIN HUMAN 25% 50 ML IV SCH (17:00)
[2019-11-07 17:22] LABS: Anisocytosis 1+; Blood Morphology Comment NOTED (NOT SEEN); Ovalocytes 1+; Platelet Estimate ADEQ; White Blood Cell Scan OK
[2019-11-07] MEDS ORDERED: EPOETIN ALFA 20,000 UNIT/1 ML VIAL SQ SCH (18:00)
--- NOTE | 2019-11-07 19:40 | R.HP ---
FACILITY: [facility] ENCOUNTER DATE AND TIME: 11/07/2019 19:31 (FURNITURE SALES ASSOCIATE) MR#: [id number] NAME SHELLI HOPPER ADDRESS: [address] [place] [address] CITY: [place] [address]IP [address] PHONE: DATE OF : 1950 AGE: 69 SSN# [id number] GENDER: Male DEXTERITY Right-handed MARITAL STATUS RACE White PRE-HOSPITAL LIVING SETTING 01 - Home (private home/apt. board/care, assisted living, fdc, transitional living) PRE-HOSPITAL LIVING WITH Family/Relatives ENCOUNTER PHYSICIAN: Dr. James Jules M.D. REFERRING DOCTOR: brian Bray DATE OF ADMISSION: 11/06/2019 22:56 (FURNITURE SALES ASSOCIATE) REFERRING FACILITY [facility] HOME TYPE AND DETAILS: Type of home: single family house # of steps to enter the residence: 0 # of levels in the residence: 1 # of steps within the residence: 0 ADMISSION DIAGNOSIS: NSTEMI ONSET DATE: 10/22/2019 PRIMARY DIAGNOSIS-RELATED SURGERIES: Bypass, Aorta Coronary DESMOND/SVG on 10/28/2019 Endoscopic Vein Dale Left on 10/28/2019 Sternotomy Median transthoracic on 10/28/2019 STEPHANIE, 3D on 10/28/2019 SECONDARY/COMORBID DIAGNOSES (TIERED): - Tier 1 Dependence on renal dialysis (Z99.2) - Tier 3 Type 2 diabetes mellitus with diabetic polyneuropathy (E11.42) - Non-Tiered Obstructive sleep apnea (adult) (G47.33) - N/A NSTEMI Syncope ESRD Pleaural effusion on left Pericardial Tamponade CHF Hepatitis A Hypertension HISTORY OF PRESENT ILLNESS (HPI): Pt. is a 69 yo Right-handed white male. On 10/22/2019 he was admitted to [facility] with diagnosis NSTEMI. His impairment category is Cardiac 09 - Cardiac Disorders (09). Pre-morbidly, Pt. was independent/mod-I in Locomotion, Safety Awareness, Balance, Social Cognition, T ransfers Control, Sphincter Control, Self-Care, Endurance, and Communication; and he had good Locomot ion, Balance, Safety Awareness, Social Cognition, Transfers Control, Sphincter Control, Self-Care, Co mmunication, and Endurance. Currently, he has deficits of Locomotion, Safety Awareness, Balance, Transfers Control, Self-Care, Co mmunication, and Endurance. Pt. is now referred to [facility] for acute in-patient rehabilitation in order to maximize patient's functional independence in activities of daily living, strength, ROM, and mobi lity. Patient has realistic goal of being discharged at assistance level 6-Rashaun to reside at Home with Fam casper/Relatives. Shelli Hopper is a 69 year old male that lives in a single sander house with his . He ambulates independently with assistance needed with ADLs. On 10/22/2019, patient complained of unstable angina and underwent Coronary Angiogram revealing multivessel disease and was admitted to [facility]. He is now medically stable but in need of 24-hour nursing, doctor supervision and oversite participate in 3hours of therapy a day/15 hours per week and receive care with an intensive interdisciplinary approach. Her Hgb is low at 7.8. He is on hemocyte plus and ferrous sulfate. [place] MEDICATION ALLERGIES: Sulfa ENVIRONMENTAL ALLERGIES: None Known - Substance Allergies None Known - Other Allergies None Known PAST MEDICAL HISTORY: CHF Dependence on renal dialysis (Z99.2) ESRD Hepatitis A Hypertension NSTEMI Obstructive sleep apnea (adult) (G47.33) Pericardial Tamponade Pleaural effusion on left Syncope Type 2 diabetes mellitus with diabetic polyneuropathy (E11.42) PAST SURGICAL HISTORY: PACEMAKER PLACEMENT Temporal Artery Biopsy FAMILY HISTORY: Family history is not contributory. SOCIAL HISTORY: - Home Living Family/Relatives REVIEW OF SYSTEMS: - Gen No Chills Fatigue No Fever - Eyes No Double Vision No itchiness - ENMT No Difficulty Swallowing - CVS Chest Discomfort No Chest Pain Fatigue No Weight Gain - Resp No Cough No Shortness of Breath - GI Continent No Abdominal Pain No Constipation No Diarrhea - Continent No Kidney Pain No Painful Urination No Urinary Urgency - MSK No Joint Pain Muscle Cramps Stiffness - Skin No Itching No Rash No Suspicious Lesions - Neuro Coordination Difficulty No Difficulty with Concentration No Memory Loss No Seizures Weakness - Psych No Anxiety No Depression No HIV Exposure No Persistent Infections No Seasonal Allergies - Endo No Cold/Heat Intolerance No Excessive Hunger No Excessive Thirst No Excessive Urination PHYSICAL EXAM - Gen Alert and awake Lying in bed No apparent distress Oriented to: person, time, and place - Skin No skin breakdown. Normacephalic - Eyes No abnormalities - ENMT No abnormalities - Neck No abnormalities - CVS RRR - Chest Mildly decreased breath sounds bilaterally. - Resp Clear to auscultation - Abd Soft - GI Soft Deferred - No abnormalities - Ext No significant edema - MSK 4+/5 weakness in both lower extremities. - Neuro No focal deficits - Psych No abnormalities VITAL SIGNS Temperature: 97.8 F SBP/DBP: 116/56 Pulse: 74 Resp: 16 NURSING: - Shower allowing shower - Lab Results blood Sugar Check ACHS ACTIVITIES OOB only with supervision QI SCORES: - Self-Care A. Eating 05-Setup or clean-up assistance B. Oral hygiene 05-Setup or clean-up assistance C. Toileting hygiene 02-Substantial/maximal assistance E. Shower/bathe self 03-Partial/moderate assistance F. Upper body dressing 03-Partial/moderate assistance G. Lower body dressing 01-Dependent H. Putting on/taking off footwear 01-Dependent - Mobility A. Roll left and right 03-Partial/moderate assistance B. Sit to lying 03-Partial/moderate assistance C. Lying to sitting on side of bed 03-Partial/moderate assistance D. Sit to stand 03-Partial/moderate assistance E. Chair/eii-tn-ppfyw transfer 03-Partial/moderate assistance F. Toilet transfer 03-Partial/moderate assistance G. Car transfer 10-Not attempted due to environmental limitations I. Walk 10 feet 03-Partial/moderate assistance J. Walk 50 feet with two turns 88-Not attempted due to medical condition or safety concerns K. Walk 150 feet 03-Partial/moderate assistance L. Walking 10 feet on uneven surfaces 88-Not attempted due to medical condition or safety concerns M. 1 step (curb) 88-Not attempted due to medical condition or safety concerns N. 4 steps 88-Not attempted due to medical condition or safety concerns O. 12 steps 88-Not attempted due to medical condition or safety concerns P. Picking up object 88-Not attempted due to medical condition or safety concerns R. Wheel 50 feet with two turns 88-Not attempted due to medical condition or safety concerns S. Wheel 150 feet 88-Not attempted due to medical condition or safety concerns - Bladder and Bowel Bladder continence 0-Always continent Bowel continence 0-Always continent - Endurance Poor - Balance Fair - Safety Awareness Fair CURRENT FUNC. DEFICITS: Self-Care, Mobility, Endurance, Balance, and Safety Awareness MEDICATIONS: - Other See attached MAR (Medication Administration Record) See attached MAR (Medication Administration Record) Ritika [email or web address].pdf ASSESSMENT: Pt. is a 69 yo Right-handed white male.On 10/22/2019 he was admitted to [facility] with diagnosis NSTEMI.His impairment category is Cardiac 09 - Cardiac Disorders (09).Pre-morbidly, Pt. was independent/mod-I in Locomotion, Safety Awareness, Balance, Social Cognition, Transfers Contr ol, Sphincter Control, Self-Care, Endurance, and Communication; and he had good Locomotion, Balance, Safety Awareness, Social Cognition, Transfers Control, Sphincter Control, Self-Care, Communication, a nd Endurance.Currently, he has deficits of Locomotion, Safety Awareness, Balance, Transfers Control, Self-Care, Communication, and Endurance.Pt. is now referred to [facility] for acute in-patient rehabilitation in order to maximize patient's functional independence in activities of daily living, strength, ROM, and mobility.- Rehab Goal Patient has realistic goal of being discharged at assistance level 6-Rashaun to reside at Home with Fam casper/Relatives. Shelli Hopper is a 69 year old male that lives in a single sander house with his . He ambulates independently with assistance needed with ADLs. On 10/22/2019, patient complained of unstable angina and underwent Coronary Angiogram revealing multivessel disease and was admitted to [facility]. He is now medically stable but in need of 24-hour nursing, doctor supervision and oversite participate in 3hours of therapy a day/15 hours per week and receive care with an intensive interdisciplinary approach.REHAB PLAN: - Physical Therapy Gait dysfunction - to improve, our physical therapists will perform initial evaluation of pt's status upon admission and devise an individualized program for Gait Training, and Wheel Chair mobility Inability to transfer - to improve, our physical therapists will perform initial evaluation of pt's s tatus upon admission and devise an individualized program for Bed mobility Need for home safety evaluation - to improve, our physical therapists will perform initial evaluation of pt's status upon admission and devise an individualized program for Home Evaluation Need in caregiver upon discharge - to improve, our physical therapists will perform initial evaluatio n of pt's status upon admission and devise an individualized program for Caregiver Training New precaution - to improve, our physical therapists will perform initial evaluation of pt's status u alo admission and devise an individualized program for Patient precaution education Edema - to improve, our physical therapists will perform initial evaluation of pt's status upon admi ssion and devise an individualized program for Elevation Training, and Lymphedema Therapy Poor balance - to improve, our physical therapists will perform initial evaluation of pt's status upo n admission and devise an individualized program for Balance Training Poor endurance - to improve, our physical therapists will perform initial evaluation of pt's status u alo admission and devise an individualized program for Endurance Training Weakness - to improve, our physical therapists will perform initial evaluation of pt's status upon ad mission and devise an individualized program for Aquatic Therapy, Neuromuscular Reeducation, and Stre ngthening Achieving independence - to improve, our physical therapists will perform initial evaluation of pt's status upon admission and devise an individualized program for Community Reintegration Activities - Occupational Therapy ADL deficits - to improve, our occupation therapists will perform initial evaluation of pt's status u alo admission and devise an individualized program for Bathing, Bed mobility, Community Reintegration , Cooking, Dressing, Eating, Fine Motor Skills, Grooming, Homemaking, Kitchen Mobility, Laundry, Melvi ent Education, Safety Awareness, Splinting - Positioning, Transfers(Toilet, Tub, Shower), and Wheel C hair Management Need for neonatal intensive care unit nurse - to improve, our occupation therapists will perform initial evaluation of pt's s tatus upon admission and devise an individualized program for Caregiver Training Weakness - to improve, our occupation therapists will perform initial evaluation of pt's status upon admission and devise an individualized program for Aquatic Therapy, Balance, Endurance, UE ROM, and U E strengthening MEDICAL PLAN: - Diet Type Start Regular - Diet - Liquid Texture Start Regular - Tube Feed Start N/A - Lab Results blood Sugar Check ACHS - Other See attached MAR (Medication Administration Record) See attached MAR (Medication Administration Record) Ritika Hopper.pdf - Diet - Solid Texture Regular - Shower shower DISCHARGE PLAN: - Estimated Length of Stay (days) 10. - Consensus on plan Discharge plan has been discussed with primary caregiver. Patient/Family is in agreement with the catina n. Primary caregiver is in agreement with the plan. - Patient/Family Goals Return home with assistance. - Planned Living Setting Upon Discharge Home, to live with Family/Relatives. Transitional Living. SIGNATURE PANEL: (FURNITURE SALES ASSOCIATE)
--- NOTE | 2019-11-07 19:42 | PAPE ---
PATIENT: [facility] MR# [id number] REFERRING DOCTOR brian Bray EVALUATION DATE AND TIME 11/07/2019 19:40 (PHOTOGRAPHIC INTELLIGENCE OFFICER) NAME MARYAM HOPPER DATE OF 1950 AGE 69 PHONE SSN# [id number] GENDER male EVALUATING PHYSICIAN Dr. James Jules M.D. ADMISSION DIAGNOSIS: NSTEMI ONSET DATE 10/22/2019 SECONDARY/COMORBID DIAGNOSES TIERED: - Tier 1 Dependence on renal dialysis (Z99.2) - Tier 3 Type 2 diabetes mellitus with diabetic polyneuropathy (E11.42) - Non-Tiered Obstructive sleep apnea (adult) (G47.33) - N/A NSTEMI Syncope ESRD Pleaural effusion on left Pericardial Tamponade CHF Hepatitis A Hypertension POST-ADMISSION FUNCTIONAL/MEDICAL STATUS: - Bladder Same accident frequency: Ind - No accidents in the past 7 days - Bowel Same accident frequency: Ind - No accidents in the past 7 days - Walking Same score based on distance walked: 0(N/A) Same score based on distance walked: 2(5149ft) - Wheelchair Same score based on distance traveled: 0(N/A) STATUS CHANGE EVALUATION: No change in Functional or Medical Status is identified compared with Pre-Admission screening. PATIENT NEEDS CLOSE MEDICAL SUPERVISION BY A REHABILITATION PHYSICIAN FOR: Coordination of Treatment Team Diabetes Management Medical and Co-Morbidity Management Wound Care PATIENT REQUIRES 24X7 REHAB NURSING FOR MEDICAL AND FUNCTIONAL MGT. OF THE FOLLOWING DEFICITS: Disease Management Medication Management Patient/Family Education Providing Safe Environment Skin Integrity PATIENT REQUIRES INTENSIVE, COORDINATED INTERDISCIPLINARY APPROACH TO REHAB: Arranging Home Equipment/Services Discharge Planning Family Intervention/Training Sales Representative [employer]arel/Case Management LIST OF IDENTIFIED AND POTENTIAL PROBLEMS: Alteration in leisure activities Bladder, Incontinence Blood Pressure, Hypertension/hypotension Issues Bowel, Incontinence Diabetes, Hyperglycemia/hypoglycemia Issues Fluid volume overload related to Congestive Heart Failure (CHF) Infection, Actual or Potential Mobility Impaired Pain, Alteration in Comfort Self Care Deficit Skin Integrity, Actual or Potential Urinary Tract Infection (UTI), Actual or Potential RISK FOR COMPLICATIONS - Hypertension CVA. Hypotension. NE. TIA. INTERVENTIONS - Hypertension PATIENT COULD BE AT RISK FOR COMPLICATIONS FROM ADVERSE MEDICAL CONDITIONS DUE TO HIS/HER COMORBIDITI ES AND THE RIGORS OF THE INTENSIVE REHABILLITATION PROGRAM. METHODS OR INTERVENTIONS TO AVOID COMPLIC ATIONS INCLUDE: - Bleeding Assess lab values and manage abnormalities. Nursing to teach precautions for anti-coagulation therapy . Wound to be assessed every shift. - Infection Clinical staff to assess and manage the signs and symptoms of infection including fever, redness, war mth, etc. - Urinary Tract Infection - Falls Patient will be evaluated for Fall Precautions and will be placed on Fall Precautions as indicated pe r protocol. - Skin Breakdown Nursing will assess skin daily using assessment tool and will place on Skin Breakdown Precautions as indicated per protocol. - Pain Clinical staff may employ non-medication methods such as massage, distraction, decrease stimulus, etc . as needed. Clinical staff will assess patient's pain level every shift per protocol to assess and e nsure pain management effectiveness. Medications will be given and the pain level re-assessed. PRELIMINARY PLAN OF CARE: - Physical Therapy Patient needs Physical Therapy for a daily minimum of 1.5 hours at least 5 out of 7 days, to improve: Mobility, Strengthening, Transfers, Stretching, ROM, Endurance, Ability to manage stairs, Gait, and Balance. - Rehabilitation Nursing Patient requires 24x7 Rehabilitation Nursing for: Pain Issues, Identifying and preventing risk factor s, Monitoring and reporting current medical conditions, Assisting with ambulation and transfer, Piter ting with all ADL-s, Teaching patients about disease process and medications, Family teaching, Provid ing safe environment, Bowel and Bladder Issues, Skin Integrity, and Medication Management. Patient needs Sales Representative Girls[employer]arel and/or Case Management for: Discharge Planning, Arranging Home Equipmen t or Services, and Family Interventions. - Dietary and Nutrition Services Patient needs Dietary and Nutrition Services for: Adequate Nutrition, Nutritional Supplements, and Nu tritional Education. - Occupational Therapy Patient needs Occupational Therapy for a daily minimum of 1.5 hours at least 5 out of 7 days, to impr ove Activities of Daily Living, including: Eating, Grooming, Bathing, Dressing, Toileting, Toilet Tra nsfers, Community Reintegration, Higher functional activities, Adaptive Equipment, Splinting, Househo ld Tasks, and Other activities as determined. QI SCORES: - Self-Care A. Eating 05-Setup or clean-up assistance B. Oral hygiene 05-Setup or clean-up assistance C. Toileting hygiene 02-Substantial/maximal assistance E. Shower/bathe self 03-Partial/moderate assistance F. Upper body dressing 03-Partial/moderate assistance G. Lower body dressing 01-Dependent H. Putting on/taking off footwear 01-Dependent - Mobility A. Roll left and right 03-Partial/moderate assistance B. Sit to lying 03-Partial/moderate assistance C. Lying to sitting on side of bed 03-Partial/moderate assistance D. Sit to stand 03-Partial/moderate assistance E. Chair/udb-of-nqfrs transfer 03-Partial/moderate assistance F. Toilet transfer 03-Partial/moderate assistance G. Car transfer 10-Not attempted due to environmental limitations I. Walk 10 feet 03-Partial/moderate assistance J. Walk 50 feet with two turns 88-Not attempted due to medical condition or safety concerns K. Walk 150 feet 03-Partial/moderate assistance L. Walking 10 feet on uneven surfaces 88-Not attempted due to medical condition or safety concerns M. 1 step (curb) 88-Not attempted due to medical condition or safety concerns N. 4 steps 88-Not attempted due to medical condition or safety concerns O. 12 steps 88-Not attempted due to medical condition or safety concerns P. Picking up object 88-Not attempted due to medical condition or safety concerns R. Wheel 50 feet with two turns 88-Not attempted due to medical condition or safety concerns S. Wheel 150 feet 88-Not attempted due to medical condition or safety concerns - Bladder and Bowel Bladder continence 0-Always continent Bowel continence 0-Always continent - Endurance Poor - Balance Fair - Safety Awareness Fair POTENTIAL FUNCTIONAL GOALS FOR PATIENT TO ACHIEVE BY DISCHARGE: - Safety Precaution Patient will remain free from falls or injury at time of discharge. - Bed Mobility Patient will perform bed mobility at 4-Od[place] level of assistance. - Transfers Patient will complete transfers from bed to chair at 4-[place] level of assistance. - Mobility Patient will ambulate 150 ft with 4-Odalis level of assistance with RW. PATIENT REHAB POTENTIAL Omari HOPPER is able and expected to receive 3 hours of individualized therapy daily on at least 5 o f every 7 days Omari HOPPER's prognosis for significant practical improvement within a reasonable period of time ap pears Good Expected level of measurable improvement will be of a practical value to Omari HOPPER's functional c apacity or adaptations to impairments Has a viable Discharge Plan Medically appropriate; condition is sufficiently stable to participate in intensive rehab program DISCHARGE PLAN: - Estimated Length of Stay (days) 10. - Consensus on plan Discharge plan has been discussed with primary caregiver. Patient/Family is in agreement with the catina n. Primary caregiver is in agreement with the plan. - Patient/Family Goals Return home with assistance. - Planned Living Setting Upon Discharge Home, to live with Family/Relatives. Transitional Living. CONCLUSION ON REHABILITATION NECESSITY: I have evaluated patient's pre-admission functional status and, comparing it to the patient's post-ad mission functional status now, I conclude that the pre-admission assessment was accurate. Patient's c ondition on admission supports the medical necessity of admission to IRF. It is safe to proceed with patient's therapy program. SIGNATURE PANEL: (PHOTOGRAPHIC INTELLIGENCE OFFICER)
[2019-11-07] MEDS: FEXOFENADINE 180 MG TAB PO SCH (20:19)
[2019-11-07] MEDS: ATORVASTATIN 40 MG TAB PO SCH (20:19)
[2019-11-07] MEDS: MONTELUKAST 10 MG TAB PO SCH (20:19)
[2019-11-07] MEDS: JUVEN PACKET PO SCH (20:20)
[2019-11-08 06:53] LABS: Hematocrit 23.8 % (39.6-49.0)
[2019-11-08] MEDS: HYDROCODONE/APAP 7.5/325 MG TAB PO PRN ×4 (06:58→21:15)
[2019-11-08] MEDS: PANTOPRAZOLE 40MG TABLET PO SCH ×2 (06:59→23:20)
[2019-11-08 07:19] LABS: Albumin 2.8 g/dL (3.4-5.0); Bilirubin Total 0.4 mg/dL (0.2-1.0); Phosphorus 3.9 mg/dL (2.5-4.9); Potassium 4.2 mmol/L (3.5-5.1); Protein, Total 6.2 g/dL (6.4-8.2)
[2019-11-08] MEDS: INSULIN -REGULAR HUMAN 50 UNIT/0.5 ML ML SQ SCH ×4 (07:30→21:00)
[2019-11-08] MEDS: METOPROLOL TAR 25 MG TAB PO SCH ×2 (08:00→23:10)
[2019-11-08] MEDS: INSULIN GLARGINE 100 UNITS/ML SQ SCH ×2 (08:19→23:21)
[2019-11-08] MEDS: SEVELAMER CARBONATE 800 MG TABLET PO SCH ×3 (08:20→23:19)
[2019-11-08] MEDS: ASPIRIN 81 MG CHEWABLE TABLET PO SCH (08:20)
[2019-11-08] MEDS: POLYETHYL GLY 3350 17 GM/DOSE PO SCH (08:20)
[2019-11-08] MEDS: VITAMIN D 5,000 UNIT CAP PO SCH (08:20)
[2019-11-08] MEDS: APIXABAN 2.5 MG TABLET PO SCH ×2 (08:20→23:20)
[2019-11-08] MEDS: FE SULF/FA/VIT B COMP & C TAB PO SCH (08:21)
[2019-11-08] MEDS: FERROUS SULFATE 325 MG TAB PO SCH (08:21)
[2019-11-08] MEDS: GABAPENTIN 300 MG CAP PO SCH ×3 (08:21→23:30)
[2019-11-08] MEDS: DOCUSATE NA 100 MG CAP PO SCH ×2 (08:21→23:20)
[2019-11-08] MEDS: DOCOSAHEXANOIC AC/EPA 1000 MG PO SCH ×2 (08:21→23:21)
[2019-11-08] MEDS: JUVEN PACKET PO SCH ×2 (08:22→23:21)
--- NOTE | 2019-11-08 09:45 | P.RH.PN ---
Estimated Length of Stay: 14 Expected Discharge Date: 11/19/19 Discharge Disposition Plan: Home Family Support: Yes Care Home Goal: Mobility, Transfers, Self Care Vital Signs: Last Vital Signs Temp 96.8 F 11/08/19 06:56 Pulse 66 11/08/19 06:56 Resp 16 11/08/19 07:58 BP 133/62 11/08/19 06:56 Pulse Ox 95 11/08/19 07:58 Laboratory: Laboratory Last Values WBC 5.7 K/uL (4.3-10.9) 11/07/19 05:40 RBC 2.55 M/uL (4.33-5.43) L 11/07/19 05:40 Hgb 8.1 g/dL (13.6-17.9) L 11/08/19 06:39 Hct 23.8 % (39.6-49.0) L 11/08/19 06:39 MCV 91.2 fL (80-100) 11/07/19 05:40 MCH 30.4 pg (27.0-35.0) 11/07/19 05:40 MCHC 33.3 g/dL (32.0-36.0) 11/07/19 05:40 RDW 15.9 % (12.1-15.2) H 11/07/19 05:40 Plt Count 273 K/uL (152-406) 11/07/19 05:40 MPV 9.1 fL (7.6-11.3) 11/07/19 05:40 Neutrophils % 64.1 % (41.7-73.7) 11/07/19 05:40 Lymphocytes % 19.8 % (15.3-44.8) 11/07/19 05:40 Monocytes % 12.3 % (3.3-12.3) 11/07/19 05:40 Eosinophils % 2.7 % (0-4.4) 11/07/19 05:40 Basophils % 1.1 % (0-1.3) 11/07/19 05:40 Absolute Neutrophils 3.6 K/uL (1.8-8.0) 11/07/19 05:40 Absolute Lymphocytes 1.1 K/uL (0.7-4.9) 11/07/19 05:40 Absolute Monocytes 0.7 K/uL (0.1-1.3) 11/07/19 05:40 Absolute Eosinophils 0.2 K/uL (0-0.5) 11/07/19 05:40 Absolute Basophils 0.1 K/uL (0-0.5) 11/07/19 05:40 Anisocytosis 1+ 11/07/19 05:40 Ovalocytes 1+ 11/07/19 05:40 Morphology Comment Noted (NOT SEEN) 11/07/19 05:40 Sodium 137 mmol/L (136-145) 11/08/19 06:39 Potassium 4.2 mmol/L (3.5-5.1) 11/08/19 06:39 Chloride 102 mmol/L (98-107) 11/08/19 06:39 Carbon Dioxide 29 mmol/L (21-32) 11/08/19 06:39 BUN 44 mg/dL (7-18) H D 11/08/19 06:39 Creatinine 6.99 mg/dL (0.55-1.3) H* D 11/08/19 06:39 Estimated GFR 8 mL/min (=/>90) L 11/08/19 06:39 Glucose 135 mg/dL (74-106) H 11/08/19 06:39 POC Glucose 118 mg/dl (65-120) 11/08/19 07:25 Calcium 8.8 mg/dL (8.5-10.1) 11/08/19 06:39 Phosphorus 3.9 mg/dL (2.5-4.9) 11/08/19 06:39 Magnesium 2.2 mg/dL (1.8-2.4) 11/07/19 05:40 Total Bilirubin 0.4 mg/dL (0.2-1.0) 11/08/19 06:39 AST 18 U/L (15-37) 11/08/19 06:39 ALT 30 U/L (12-78) 11/08/19 06:39 Alkaline Phosphatase 166 U/L (45-117) H 11/08/19 06:39 Serum Total Protein 6.2 g/dL (6.4-8.2) L 11/08/19 06:39 Albumin 2.8 g/dL (3.4-5.0) L 11/08/19 06:39 Globulin 3.4 g/dL (2.3-3.5) 11/08/19 06:39 Albumin/Globulin Ratio 0.8 (1.1-1.8) L 11/08/19 06:39 Prealbumin 23.1 mg/dL (20-40) 11/07/19 05:40 Weight: 286 lb 11.2 oz Wound Present: Yes Closed Surgical Incision Present: Yes Negative Pressure Wound Therapy Present: No Physician Update: Blood work reviewed. Hgb 8.1, Eyelet Row Marker 6.99. He will have dialysis today. He walked 150' without assistive device. He is doing very well overall. Medical Issues: Patient is always continent with bladder and bowel Pain Issues: Patient is taking Sharon 7.5/325mg Q6h PO PRN for pain. Functional Improvement: pt presents with mild strength deficits in the L LE related to pain from graft harvest site. pt demonstrates poor balance and stability during ambulation and functional transfers. pt struggles to perform bed mobility tasks without use of UEs and requires training to enhance technique and adhere to sternal precautions. pt experiences poor tolerance to functional activity due to pain, weakness, fatigue, and SOB. Skilled PT services are necessary to address the above mentioned impairments and functional limitations. Summary: Patient's care plan and mechanical planner goals have been reviewed and revised as necessary. Please see the Rehabilitation Signature page for all necessary signatures.
[2019-11-08] MEDS: LIDOCAINE/PRILOCAINE CREAM TOP ONE (14:58)
[2019-11-08] MEDS: MIDODRINE HCL 5 MG TABLET PO SCH (14:59)
--- NOTE | 2019-11-08 15:36 | P.PN ---
Date of Service: 11/08/19 Vital Signs Temp Pulse Resp BP Pulse Ox 96.8 F 66 16 133/62 95 11/08/19 06:56 11/08/19 06:56 11/08/19 15:07 11/08/19 06:56 11/08/19 15:07 Medications Hydrocodone Bitart/Acetaminophen ([place] 7.5/325 Mg) 1 tab PO Q4H PRN PRN Reason: Pain scale 8-10 (Severe) Stop: 12/08/19 10:42 Last Admin: 11/08/19 15:07 Dose: 1 tab Albuterol Sulfate (Proventil 0.083% Neb Soln) 2.5 mg NEB Q6H PRN PRN Reason: SHORTNESS OF BREATH Stop: 12/06/19 23:24 Apixaban (Eliquis) 2.5 mg PO BID [facility] Stop: 12/07/19 08:01 Last Admin: 11/08/19 08:20 Dose: 2.5 mg Aspirin (Aspirin Chewable) 81 mg PO DAILY [facility] Stop: 12/07/19 08:01 Last Admin: 11/08/19 08:20 Dose: 81 mg Atorvastatin Calcium (Lipitor) 40 mg PO BEDTIME [facility] Stop: 12/07/19 21:01 Last Admin: 11/07/19 20:19 Dose: 40 mg Cholecalciferol (Vitamin D 5,000 Iu Cap) 10,000 unit PO DAILY [facility] Stop: 12/07/19 08:01 Last Admin: 11/08/19 08:20 Dose: 10,000 unit Dextrose (Dextrose 50% Syringe/Vial) 12.5 gm IV PRN PRN; Protocol PRN Reason: HYPOGLYCEMIA Stop: 12/07/19 02:18 Docusate Sodium (Colace Cap) 100 mg PO BID [facility] Stop: 12/07/19 08:01 Last Admin: 11/08/19 08:21 Dose: 100 mg Ferrous Sulfate (Feosol) 325 mg PO DAILY [facility] Stop: 12/07/19 08:01 Last Admin: 11/08/19 08:21 Dose: 325 mg Fexofenadine HCl (Cami) 180 mg PO BEDTIME [facility] Stop: 12/07/19 21:01 Last Admin: 11/07/19 20:19 Dose: 180 mg Fish Oil (Fish Oil 1,000 Mg Cap) 2,000 mg PO BID [facility] Stop: 12/07/19 08:01 Last Admin: 11/08/19 08:21 Dose: 2,000 mg Gabapentin (Neurontin) 300 mg PO TID [facility] Stop: 12/07/19 09:01 Last Admin: 11/08/19 14:22 Dose: 300 mg Glucagon (Glucagen) 1 mg IM 1X PRN; Protocol PRN Reason: HYPOGLYCEMIA Stop: 12/07/19 02:18 Heparin Sodium (Porcine) (Heparin 1,000 Units/Ml) 6,000 unit IV EVERY HD PRN PRN Reason: FLUSH AFTER EACH USE Stop: 12/07/19 17:00 Albumin Human (Albumin 25%) 50 mls @ 100 mls/hr IV EVERY HD [facility] Stop: 12/07/19 17:01 Insulin Glargine (Lantus) 10 units SQ BEDTIME [facility] Stop: 12/07/19 21:01 Last Admin: 11/07/19 20:20 Dose: 10 units Insulin Glargine (Lantus) 20 units SQ DAILY WITH BREAKFAST [facility] Stop: 12/07/19 08:01 Last Admin: 11/08/19 08:19 Dose: 20 units Insulin Human Regular (Novolin -R) 0 unit SQ ACHS [facility]; Protocol Stop: 12/07/19 07:31 Last Admin: 11/08/19 11:30 Dose: Not Given L-Arginine/L-Glutamine/HMB (Beni) 1 pkt PO BID [facility] Stop: 12/07/19 20:01 Last Admin: 11/08/19 08:22 Dose: 1 pkt Mannitol (Mannitol 12.5 Gm/50 Ml Vial) 12.5 gm IV EVERY HD PRN PRN Reason: FOR BP SUPPORT AT HD Stop: 12/07/19 17:00 Metoprolol Tartrate (Lopressor) 12.5 mg PO BID [facility] Stop: 12/07/19 08:01 Last Admin: 11/08/19 08:00 Dose: Not Given Midodrine (Proamatine) 10 mg PO EVERY HD [facility] Stop: 12/07/19 03:01 Last Admin: 11/08/19 14:59 Dose: 10 mg Montelukast Sodium (Singulair) 10 mg PO BEDTIME [facility] Stop: 12/07/19 21:01 Last Admin: 11/07/19 20:19 Dose: 10 mg Multivitamins/Iron (Hemocyte Plus) 1 tab PO DAILY WITH BREAKFAST [facility] Stop: 12/07/19 08:01 Last Admin: 11/08/19 08:21 Dose: 1 tab Pantoprazole Sodium (Protonix Tab) 40 mg PO BIDAC [facility]; Protocol Stop: 12/07/19 07:31 Last Admin: 11/08/19 06:59 Dose: 40 mg Polyethylene Glycol (Glycolax) 17 gm PO DAILY [facility] Stop: 12/07/19 08:01 Last Admin: 11/08/19 08:20 Dose: 17 gm Sevelamer Carbonate (Renvela) 1,600 mg PO TIDWM [facility] Stop: 12/07/19 08:01 Last Admin: 11/08/19 12:11 Dose: 1,600 mg Lab Results (last 24 hrs) 11/08/19 11:45: POC Glucose 156 H 11/08/19 07:25: POC Glucose 118 11/08/19 06:39: Sodium 137, Potassium 4.2, Chloride 102, Carbon Dioxide 29, BUN 44 H D, Creatinine 6.99 H* D, Estimated GFR 8 L, Glucose 135 H, Calcium 8.8, Phosphorus 3.9, Total Bilirubin 0.4, AST 18, ALT 30, Alkaline Phosphatase 166 H , Serum Total Protein 6.2 L, Albumin 2.8 L, Globulin 3.4, Albumin/Globulin Ratio 0.8 L 11/08/19 06:39: Hgb 8.1 L, Hct 23.8 L 11/07/19 20:14: POC Glucose 178 H 11/07/19 16:17: POC Glucose 171 H 11/07/19 05:40: Anisocytosis 1+, Ovalocytes 1+, Morphology Comment Noted Assessment/ Plan: Nephrology CPS stable without CP or SOB. No acute events overnight. Working well with PT. Vitals, medications, blood work and imaging reviewed in the chart. General: In no apparent distress, Oriented x3, Cooperative HEENT: Atraumatic Neck: Supple Respiratory: Clear to auscultation bilaterally Cardiovascular: Edema Gastrointestinal: Normal bowel sounds, Soft and benign Musculoskeletal: No clubbing, No contractures Integumentary: No rashes, No cyanosis, Skin lesion Neurological: Normal speech Laboratory Data (last 24 hrs) 11/07/19 05:40: Sodium 140, Potassium 3.8, BUN 24 H, Creatinine 4.82 H, Glucose 116 H, Magnesium 2.2 11/07/19 05:40: WBC 5.7, Hgb 7.8 L*, Hct 23.2 L, Plt Count 273 Conclusions/Impression: A/ ESRD on HD. HTN with CKD/ CHF. CHRIS on CPAP. Diastolic CHF, chronic. DM II with CKD. Anemia in CKD. LADONNA/ Secondary HyperPTH. Nephrolithiasis. CAD. P/ Continue current POC and Medications. HD today. Give Retacrit PRN. Encourage nutrition. Low sodium diet. PT as tolerated. No NSAIDs. AM labs PRN. Daily weight.
[2019-11-08] MEDS ORDERED: NITROGLYCERIN 0.4 MG/TAB SL STA (21:01)
[2019-11-08] MEDS: ATORVASTATIN 40 MG TAB PO SCH (23:20)
[2019-11-08] MEDS: FEXOFENADINE 180 MG TAB PO SCH (23:20)
[2019-11-08] MEDS: MONTELUKAST 10 MG TAB PO SCH (23:20)
[2019-11-09] MEDS: HYDROCODONE/APAP 7.5/325 MG TAB PO PRN ×4 (01:18→16:23)
--- NOTE | 2019-11-09 02:22 | FAST ---
SHIFT START DATE/TIME: 11/08/2019 19:00 (DRAFTING DETAILER) SHIFT END DATE/TIME: 11/09/2019 07:00 (DRAFTING DETAILER) NAME MARYAM HOPPER DATE OF : 1950 DATE OF ADMISSION: 11/06/2019 22:56 (DRAFTING DETAILER) PHONE: AGE: 69 N# [id number] GENDER: Male ENCOUNTER PHYSICIAN: Dr. James Jules M.D. ADMISSION DIAGNOSIS: - Cardiac 09 - Cardiac Disorders () NSTEMI. EATING: Not assessed/no information CODE: - ORAL HYGIENE: Not assessed/no information CODE: - TOILETING HYGIENE: TOILETING HYGIENE - STEP 1: Does the patient complete the activity by him/herself with no assistance (physical, verbal/nonverbal cueing, setup/clean-up)? No. TOILETING HYGIENE - STEP 2: Does the patient need only setup/clean-up assistance from one helper? No. TOILETING HYGIENE - STEP 3: Does the patient need only verbal/nonverbal cueing or touching/steadying/contact guard assistance fro m one helper? No. TOILETING HYGIENE - STEP 4: Does the patient need physical assistance - for example lifting or trunk support from one helper - wi th the helper providing less than half of the effort? Yes. 1. [id number] ADMISSION PERFORMANCE: Partial/moderate assistance CODE: 03 BATHING: Not assessed/no information CODE: - DRESSING - UPPER BODY: Not assessed/no information CODE: - DRESSING - LOWER BODY: Not assessed/no information CODE: - PUTTING ON/TAKING OFF FOOTWEAR: Not assessed/no information CODE: - ROLL LEFT AND RIGHT: ROLL LEFT AND RIGHT - STEP 1: Does the patient complete the activity by him/herself with no assistance (physical, verbal/nonverbal cueing, setup/clean-up)? No. ROLL LEFT AND RIGHT - STEP 2: Does the patient need only setup/clean-up assistance from one helper? No. ROLL LEFT AND RIGHT - STEP 3: Does the patient need only verbal/nonverbal cueing or touching/steadying/contact guard assistance fro m one helper? No. ROLL LEFT AND RIGHT - STEP 4: Does the patient need physical assistance - for example lifting or trunk support from one helper - wi th the helper providing less than half of the effort? Yes. 1. [id number] ADMISSION PERFORMANCE: Partial/moderate assistance CODE: 03 SIT TO LYING: SIT TO LYING - STEP 1: Does the patient complete the activity by him/herself with no assistance (physical, verbal/nonverbal cueing, setup/clean-up)? No. SIT TO LYING - STEP 2: Does the patient need only setup/clean-up assistance from one helper? No. SIT TO LYING - STEP 3: Does the patient need only verbal/nonverbal cueing or touching/steadying/contact guard assistance fro m one helper? No. SIT TO LYING - STEP 4: Does the patient need physical assistance - for example lifting or trunk support from one helper - wi th the helper providing less than half of the effort? Yes. 1. [id number] ADMISSION PERFORMANCE: Partial/moderate assistance CODE: 03 LYING TO SITTING: LYING TO SITTING ON SIDE OF BED - STEP 1: Does the patient complete the activity by him/herself with no assistance (physical, verbal/nonverbal cueing, setup/clean-up)? No. LYING TO SITTING ON SIDE OF BED - STEP 2: Does the patient need only setup/clean-up assistance from one helper? No. LYING TO SITTING ON SIDE OF BED - STEP 3: Does the patient need only verbal/nonverbal cueing or touching/steadying/contact guard assistance fro m one helper? No. LYING TO SITTING ON SIDE OF BED - STEP 4: Does the patient need physical assistance - for example lifting or trunk support from one helper - wi th the helper providing less than half of the effort? Yes. 1. [id number] ADMISSION PERFORMANCE: Partial/moderate assistance CODE: 03 SIT TO STAND: SIT TO STAND - STEP 1: Does the patient complete the activity by him/herself with no assistance (physical, verbal/nonverbal cueing, setup/clean-up)? No. SIT TO STAND - STEP 2: Does the patient need only setup/clean-up assistance from one helper? No. SIT TO STAND - STEP 3: Does the patient need only verbal/nonverbal cueing or touching/steadying/contact guard assistance fro m one helper? No. SIT TO STAND - STEP 4: Does the patient need physical assistance - for example lifting or trunk support from one helper - wi th the helper providing less than half of the effort? Yes. 1. [id number] ADMISSION PERFORMANCE: Partial/moderate assistance CODE: 03 TRANSFERS: BED, CHAIR: Not assessed/no information CODE: - TRANSFER TOILET: Not assessed/no information CODE: - TRANSFERS: CAR: Not assessed/no information CODE: - WALK 10 FEET: Not assessed/no information CODE: - 1 STEP (CURB): Not assessed/no information CODE: - PICKING UP OBJECT: Not assessed/no information CODE: - DOES THE PATIENT USE A WHEELCHAIR/SCOOTER? CODE: EXPR WHEEL 50 FEET WITH TWO TURNS: Not assessed/no information CODE: - INDICATE THE TYPE OF WHEELCHAIR/SCOOTER USED: CODE: EXPR WHEEL 150 FEET: Not assessed/no information CODE: - INDICATE THE TYPE OF WHEELCHAIR/SCOOTER USED: CODE: EXPR BLADDER AND BOWEL: H350. BLADDER CONTINENCE (3-DAY ASSESSMENT PERIOD): No urine output (e.g., renal failure) CODE: 5 H400. BOWEL CONTINENCE (3-DAY ASSESSMENT PERIOD): Always continent CODE: 0
[2019-11-09] MEDS: INSULIN -REGULAR HUMAN 50 UNIT/0.5 ML ML SQ SCH ×4 (07:30→20:45)
[2019-11-09] MEDS: PANTOPRAZOLE 40MG TABLET PO SCH ×2 (07:59→20:44)
[2019-11-09] MEDS: INSULIN GLARGINE 100 UNITS/ML SQ SCH ×2 (08:48→20:33)
[2019-11-09] MEDS: JUVEN PACKET PO SCH ×2 (08:50→20:35)
[2019-11-09] MEDS: METOPROLOL TAR 25 MG TAB PO SCH ×2 (08:50→20:00)
[2019-11-09] MEDS: POLYETHYL GLY 3350 17 GM/DOSE PO SCH (08:50)
[2019-11-09] MEDS: SEVELAMER CARBONATE 800 MG TABLET PO SCH ×3 (08:50→20:44)
[2019-11-09] MEDS: FERROUS SULFATE 325 MG TAB PO SCH ×2 (08:51→08:52)
[2019-11-09] MEDS: APIXABAN 2.5 MG TABLET PO SCH ×2 (08:51→20:34)
[2019-11-09] MEDS: ASPIRIN 81 MG CHEWABLE TABLET PO SCH (08:52)
[2019-11-09] MEDS: VITAMIN D 5,000 UNIT CAP PO SCH (08:52)
[2019-11-09] MEDS: DOCUSATE NA 100 MG CAP PO SCH ×2 (08:52→20:34)
[2019-11-09] MEDS: DOCOSAHEXANOIC AC/EPA 1000 MG PO SCH ×2 (08:52→20:33)
[2019-11-09] MEDS: FE SULF/FA/VIT B COMP & C TAB PO SCH (08:52)
[2019-11-09] MEDS: GABAPENTIN 300 MG CAP PO SCH ×3 (08:52→20:34)
[2019-11-09] MEDS ORDERED: EPOETIN ALFA-EPBX 10,000 UNIT/ML VIAL SQ SCH (11:00)
[2019-11-09] MEDS ORDERED: EPOETIN ALFA-EPBX 10,000 UNIT/ML VIAL SQ ONE (12:00)
--- NOTE | 2019-11-09 14:15 | FAST ---
ENCOUNTER DATE AND TIME: 11/09/2019 08:00 (REPAIR TECH) NAME MARYAM HOPPER DATE OF : 1950 DATE OF ADMISSION: 11/06/2019 22:56 (REPAIR TECH) PHONE: AGE: 69 N# [id number] GENDER: Male ENCOUNTER PHYSICIAN: Dr. James Jules M.D. ADMISSION DIAGNOSIS: - Cardiac 09 - Cardiac Disorders () NSTEMI. EATING: Not assessed/no information CODE: - ORAL HYGIENE: ORAL HYGIENE - STEP 1: Does the patient complete the activity by him/herself with no assistance (physical, verbal/nonverbal cueing, setup/clean-up)? Yes. 1. [id number] ADMISSION PERFORMANCE: Independent CODE: 06 TOILETING HYGIENE: Not assessed/no information CODE: - BATHING: SHOWER/BATHE SELF - STEP 1: Does the patient complete the activity by him/herself with no assistance (physical, verbal/nonverbal cueing, setup/clean-up)? No. SHOWER/BATHE SELF - STEP 2: Does the patient need only setup/clean-up assistance from one helper? No. SHOWER/BATHE SELF - STEP 3: Does the patient need only verbal/nonverbal cueing or touching/steadying/contact guard assistance fro m one helper? Yes. 1. [id number] ADMISSION PERFORMANCE: Supervision or touching assistance CODE: 04 DRESSING - UPPER BODY: DRESSING - UPPER BODY - STEP 1: Does the patient complete the activity by him/herself with no assistance (physical, verbal/nonverbal cueing, setup/clean-up)? No. DRESSING - UPPER BODY - STEP 2: Does the patient need only setup/clean-up assistance from one helper? No. DRESSING - UPPER BODY - STEP 3: Does the patient need only verbal/nonverbal cueing or touching/steadying/contact guard assistance fro m one helper? Yes. 1. [id number] ADMISSION PERFORMANCE: Supervision or touching assistance CODE: 04 DRESSING - LOWER BODY: DRESSING - LOWER BODY - STEP 1: Does the patient complete the activity by him/herself with no assistance (physical, verbal/nonverbal cueing, setup/clean-up)? No. DRESSING - LOWER BODY - STEP 2: Does the patient need only setup/clean-up assistance from one helper? No. DRESSING - LOWER BODY - STEP 3: Does the patient need only verbal/nonverbal cueing or touching/steadying/contact guard assistance fro m one helper? Yes. 1. [id number] ADMISSION PERFORMANCE: Supervision or touching assistance CODE: 04 PUTTING ON/TAKING OFF FOOTWEAR: FOOTWEAR - STEP 1: Does the patient complete the activity by him/herself with no assistance (physical, verbal/nonverbal cueing, setup/clean-up)? No. FOOTWEAR - STEP 2: Does the patient need only setup/clean-up assistance from one helper? No. FOOTWEAR - STEP 3: Does the patient need only verbal/nonverbal cueing or touching/steadying/contact guard assistance fro m one helper? Yes. 1. [id number] ADMISSION PERFORMANCE: Supervision or touching assistance CODE: 04 DOES THE PATIENT USE A WHEELCHAIR/SCOOTER? CODE: EXPR INDICATE THE TYPE OF WHEELCHAIR/SCOOTER USED: CODE: EXPR INDICATE THE TYPE OF WHEELCHAIR/SCOOTER USED: CODE: EXPR BLADDER AND BOWEL: CODE: EXPR CODE: EXPR SIGNATURE PANEL: The following modified sections: 1. [id number] Admission Performance, 1. [id number] Admission Performance, 1. [id number] Admission Performance, 1. [id number] Admission Performance, 1. [id number] Admission Performance, 1. [id number] Admission Performance, 1. [id number] Admission Performance were [electronically] signed by BRENT Peña on Sat Nov 09 2019 14:15:02 GMT-0600 (Central Standard Time)
[2019-11-09] MEDS: LIDOCAINE/PRILOCAINE CREAM TOP ONE (15:34)
[2019-11-09] MEDS: MIDODRINE HCL 5 MG TABLET PO SCH ×2 (15:34→22:46)
--- NOTE | 2019-11-09 17:27 | P.PN ---
Date of Service: 11/09/19 Vital Signs Temp Pulse Resp BP Pulse Ox 97.9 F 72 17 107/47 L 97 11/09/19 07:21 11/09/19 08:50 11/09/19 17:17 11/09/19 08:50 11/09/19 17:17 Medications Hydrocodone Bitart/Acetaminophen ([place] 7.5/325 Mg) 1 tab PO Q4H PRN PRN Reason: Pain scale 8-10 (Severe) Stop: 12/08/19 10:42 Last Admin: 11/09/19 16:23 Dose: 1 tab Albuterol Sulfate (Proventil 0.083% Neb Soln) 2.5 mg NEB Q6H PRN PRN Reason: SHORTNESS OF BREATH Stop: 12/06/19 23:24 Apixaban (Eliquis) 2.5 mg PO BID JOHNATHON Stop: 12/07/19 08:01 Last Admin: 11/09/19 08:51 Dose: 2.5 mg Aspirin (Aspirin Chewable) 81 mg PO DAILY [facility] Stop: 12/07/19 08:01 Last Admin: 11/09/19 08:52 Dose: 81 mg Atorvastatin Calcium (Lipitor) 40 mg PO BEDTIME [facility] Stop: 12/07/19 21:01 Last Admin: 11/08/19 23:20 Dose: 40 mg Cholecalciferol (Vitamin D 5,000 Iu Cap) 10,000 unit PO DAILY [facility] Stop: 12/07/19 08:01 Last Admin: 11/09/19 08:52 Dose: 10,000 unit Dextrose (Dextrose 50% Syringe/Vial) 12.5 gm IV PRN PRN; Protocol PRN Reason: HYPOGLYCEMIA Stop: 12/07/19 02:18 Docusate Sodium (Colace Cap) 100 mg PO BID [facility] Stop: 12/07/19 08:01 Last Admin: 11/09/19 08:52 Dose: 100 mg Ferrous Sulfate (Feosol) 325 mg PO DAILY [facility] Stop: 12/07/19 08:01 Last Admin: 11/09/19 08:52 Dose: 325 mg Fexofenadine HCl (Cami) 180 mg PO BEDTIME [facility] Stop: 12/07/19 21:01 Last Admin: 11/08/19 23:20 Dose: 180 mg Fish Oil (Fish Oil 1,000 Mg Cap) 2,000 mg PO BID [facility] Stop: 12/07/19 08:01 Last Admin: 11/09/19 08:52 Dose: 2,000 mg Gabapentin (Neurontin) 300 mg PO TID [facility] Stop: 12/07/19 09:01 Last Admin: 11/09/19 14:21 Dose: 300 mg Glucagon (Glucagen) 1 mg IM 1X PRN; Protocol PRN Reason: HYPOGLYCEMIA Stop: 12/07/19 02:18 Heparin Sodium (Porcine) (Heparin 1,000 Units/Ml) 6,000 unit IV EVERY HD PRN PRN Reason: FLUSH AFTER EACH USE Stop: 12/07/19 17:00 Albumin Human (Albumin 25%) 50 mls @ 100 mls/hr IV EVERY HD [facility] Stop: 12/07/19 17:01 Insulin Glargine (Lantus) 10 units SQ BEDTIME [facility] Stop: 12/07/19 21:01 Last Admin: 11/08/19 23:21 Dose: 10 units Insulin Glargine (Lantus) 20 units SQ DAILY WITH BREAKFAST [facility] Stop: 12/07/19 08:01 Last Admin: 11/09/19 08:48 Dose: 20 units Insulin Human Regular (Novolin -R) 0 unit SQ ACHS [facility]; Protocol Stop: 12/07/19 07:31 Last Admin: 11/09/19 11:30 Dose: Not Given L-Arginine/L-Glutamine/HMB (Beni) 1 pkt PO BID [facility] Stop: 12/07/19 20:01 Last Admin: 11/09/19 08:50 Dose: 1 pkt Lorazepam (Ativan) 0.5 mg PO Q12HP PRN PRN Reason: ANXIETY Stop: 12/08/19 21:38 Mannitol (Mannitol 12.5 Gm/50 Ml Vial) 12.5 gm IV EVERY HD PRN PRN Reason: FOR BP SUPPORT AT HD Stop: 12/07/19 17:00 Metoprolol Tartrate (Lopressor) 12.5 mg PO BID [facility] Stop: 12/07/19 08:01 Last Admin: 11/09/19 08:50 Dose: 12.5 mg Midodrine (Proamatine) 10 mg PO EVERY HD [facility] Stop: 12/07/19 03:01 Last Admin: 11/09/19 15:34 Dose: 10 mg Montelukast Sodium (Singulair) 10 mg PO BEDTIME [facility] Stop: 12/07/19 21:01 Last Admin: 11/08/19 23:20 Dose: 10 mg Multivitamins/Iron (Hemocyte Plus) 1 tab PO DAILY WITH BREAKFAST [facility] Stop: 12/07/19 08:01 Last Admin: 11/09/19 08:52 Dose: 1 tab Pantoprazole Sodium (Protonix Tab) 40 mg PO BIDAC [facility]; Protocol Stop: 12/07/19 07:31 Last Admin: 11/09/19 07:59 Dose: 40 mg Polyethylene Glycol (Glycolax) 17 gm PO DAILY [facility] Stop: 12/07/19 08:01 Last Admin: 11/09/19 08:50 Dose: 17 gm Sevelamer Carbonate (Renvela) 1,600 mg PO TIDWM [facility] Stop: 12/07/19 08:01 Last Admin: 11/09/19 12:14 Dose: 1,600 mg Lab Results (last 24 hrs) 11/09/19 11:46: POC Glucose 156 H 11/09/19 07:16: POC Glucose 140 H 11/09/19 01:20: Troponin I 0.10 H 11/08/19 21:21: Troponin I 0.07 H 11/08/19 21:20: POC Glucose 127 H Assessment/ Plan: Nephrology CPS stable without SOB. Mild, reproducible sternal chest pain. Episode of CP after HD yesterday which is still persistent. No diaphoresis. Working well with PT. Vitals, medications, blood work and imaging reviewed in the chart. General: In no apparent distress, Oriented x3, Cooperative HEENT: Atraumatic Neck: Supple Respiratory: Clear to auscultation bilaterally Cardiovascular: Edema Gastrointestinal: Normal bowel sounds, Soft and benign Musculoskeletal: No clubbing, No contractures Integumentary: No rashes, No cyanosis, Skin lesion Neurological: Normal speech Laboratory Data (last 24 hrs) 11/07/19 05:40: Sodium 140, Potassium 3.8, BUN 24 H, Creatinine 4.82 H, Glucose 116 H, Magnesium 2.2 11/07/19 05:40: WBC 5.7, Hgb 7.8 L*, Hct 23.2 L, Plt Count 273 Conclusions/Impression: A/ ESRD on HD. HTN with CKD/ CHF. CHRIS on CPAP. Diastolic CHF, chronic. DM II with CKD. Anemia in CKD. LADONNA/ Secondary HyperPTH. Nephrolithiasis. CAD. P/ Continue current POC and Medications. Counseled regarding chest pain, EKG and troponins. Extra HD session ordered for today. Give Retacrit PRN. Encourage nutrition. Low sodium diet. PT as tolerated. No NSAIDs. AM labs PRN. Daily weight.
[2019-11-09] MEDS: FEXOFENADINE 180 MG TAB PO SCH (20:33)
[2019-11-09] MEDS: MONTELUKAST 10 MG TAB PO SCH (20:34)
[2019-11-09] MEDS: ATORVASTATIN 40 MG TAB PO SCH (20:34)
[2019-11-10] MEDS: HYDROCODONE/APAP 7.5/325 MG TAB PO PRN ×5 (00:11→21:53)
[2019-11-10] MEDS: LORAZEPAM 0.5 MG TABLET PO PRN ×2 (03:40→21:46)
[2019-11-10] MEDS ORDERED: ONDANSETRON 4 MG (ODT) TAB PO PRN (06:19)
[2019-11-10] MEDS: PANTOPRAZOLE 40MG TABLET PO SCH ×2 (06:28→17:25)
[2019-11-10] MEDS: INSULIN -REGULAR HUMAN 50 UNIT/0.5 ML ML SQ SCH ×4 (07:30→21:00)
[2019-11-10] MEDS: JUVEN PACKET PO SCH ×2 (09:57→19:45)
[2019-11-10] MEDS: DOCOSAHEXANOIC AC/EPA 1000 MG PO SCH ×2 (09:57→19:44)
[2019-11-10] MEDS: INSULIN GLARGINE 100 UNITS/ML SQ SCH ×2 (09:58→21:05)
[2019-11-10] MEDS: VITAMIN D 5,000 UNIT CAP PO SCH (09:58)
[2019-11-10] MEDS: DOCUSATE NA 100 MG CAP PO SCH ×2 (09:58→19:44)
[2019-11-10] MEDS: POLYETHYL GLY 3350 17 GM/DOSE PO SCH (09:58)
[2019-11-10] MEDS: METOPROLOL TAR 25 MG TAB PO SCH ×2 (09:59→19:45)
[2019-11-10] MEDS: FERROUS SULFATE 325 MG TAB PO SCH (09:59)
[2019-11-10] MEDS: APIXABAN 2.5 MG TABLET PO SCH ×2 (10:00→19:44)
[2019-11-10] MEDS: SEVELAMER CARBONATE 800 MG TABLET PO SCH ×3 (10:00→17:25)
[2019-11-10] MEDS: GABAPENTIN 300 MG CAP PO SCH ×3 (10:00→19:44)
[2019-11-10] MEDS: FE SULF/FA/VIT B COMP & C TAB PO SCH (10:01)
[2019-11-10] MEDS: ASPIRIN 81 MG CHEWABLE TABLET PO SCH (10:01)
--- NOTE | 2019-11-10 12:49 | EKG ---
Test Date: 2019-11-08 Test Time: 20:59:14 Solution Designer: RT MEASUREMENT RESULTS: Intervals: Rate: 74 MN: 258 QRSD: 150 QT: 448 QTc: 497 [place]: P: 11 MN: 258 QRS: -65 T: 77 INTERPRETIVE STATEMENTS: Sinus rhythm with 1st degree AV block Right bundle branch block Left axis Abnormal ECG Compared to ECG 07/16/2019 22:33:44 Myocardial infarct finding no longer present Electronically Signed On 11-10-19 12:49:00 CDT by Marin Bradley
[2019-11-10] MEDS: ATORVASTATIN 40 MG TAB PO SCH (19:44)
[2019-11-10] MEDS: MONTELUKAST 10 MG TAB PO SCH (19:44)
[2019-11-10] MEDS: FEXOFENADINE 180 MG TAB PO SCH (19:44)
[2019-11-11] MEDS: MIDODRINE HCL 5 MG TABLET PO SCH ×2 (01:37→15:15)
[2019-11-11] MEDS: INSULIN -REGULAR HUMAN 50 UNIT/0.5 ML ML SQ SCH ×4 (07:30→21:00)
[2019-11-11] MEDS: METOPROLOL TAR 25 MG TAB PO SCH (08:00)
[2019-11-11] MEDS: JUVEN PACKET PO SCH ×3 (08:00→21:39)
[2019-11-11] MEDS: PANTOPRAZOLE 40MG TABLET PO SCH ×2 (08:30→16:30)
[2019-11-11] MEDS: HYDROCODONE/APAP 7.5/325 MG TAB PO PRN ×3 (08:51→23:09)
[2019-11-11] MEDS: VITAMIN D 5,000 UNIT CAP PO SCH (08:51)
[2019-11-11] MEDS: DOCOSAHEXANOIC AC/EPA 1000 MG PO SCH ×2 (08:52→21:33)
[2019-11-11] MEDS: POLYETHYL GLY 3350 17 GM/DOSE PO SCH (08:52)
[2019-11-11] MEDS: APIXABAN 2.5 MG TABLET PO SCH ×2 (08:52→21:33)
[2019-11-11] MEDS: FE SULF/FA/VIT B COMP & C TAB PO SCH (08:52)
[2019-11-11] MEDS: INSULIN GLARGINE 100 UNITS/ML SQ SCH ×2 (08:52→21:34)
[2019-11-11] MEDS: SEVELAMER CARBONATE 800 MG TABLET PO SCH ×4 (08:52→21:32)
[2019-11-11] MEDS: ASPIRIN 81 MG CHEWABLE TABLET PO SCH (08:52)
[2019-11-11] MEDS: DOCUSATE NA 100 MG CAP PO SCH ×2 (08:52→21:33)
[2019-11-11] MEDS: GABAPENTIN 300 MG CAP PO SCH ×2 (08:54→21:33)
[2019-11-11] MEDS ORDERED: TRAMADOL HCL 50 MG TAB PO PRN (14:44)
[2019-11-11] MEDS: LIDOCAINE/PRILOCAINE CREAM TOP SCH (15:15)
[2019-11-11] MEDS: FEXOFENADINE 180 MG TAB PO SCH (21:33)
[2019-11-11] MEDS: ATORVASTATIN 40 MG TAB PO SCH (21:34)
[2019-11-11] MEDS: MONTELUKAST 10 MG TAB PO SCH (21:34)
[2019-11-11] MEDS ORDERED: GABAPENTIN 300 MG CAP PO ONE (21:38)
--- NOTE | 2019-11-11 22:53 | R.PN ---
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 Pt denied any depression. He did well with physical and occupational therapy today. Labs reviewed and are stable. VITAL SIGNS Temperature: 97.8 F SBP/DBP: 123/65 Pulse: 73 Resp: 16 MEDICATION ALLERGIES: Sulfa ENVIRONMENTAL ALLERGIES: None Known - Substance Allergies None Known - Other Allergies None Known NURSING: - Shower allowing shower - Lab Results blood Sugar Check ACHS ACTIVITIES OOB only with supervision THERAPIES: - Dietary and Nutrition Adequate Nutrition. Nutritional Education. Nutritional Supplements. PHYSICAL EXAM - Gen Alert and awake Lying in bed No apparent distress Oriented to: person, time, and place - Skin No skin breakdown. Normacephalic - Eyes No abnormalities - ENMT No abnormalities - Neck No abnormalities - CVS RRR - Chest Mildly decreased breath sounds bilaterally. - Resp Clear to auscultation - Abd Soft - GI Soft Deferred - No abnormalities - Ext No significant edema - MSK 4+/5 weakness in both lower extremities. - Neuro No focal deficits - Psych No abnormalities ASSESSMENT: Pt. is a 69 yo Right-handed white male.On 10/22/2019 he was admitted to [facility] with diagnosis NSTEMI.His impairment category is Cardiac 09 - Cardiac Disorders (09).Pre-morbidly, Pt. was independent/mod-I in Locomotion, Safety Awareness, Balance, Social Cognition, Transfers Contr ol, Sphincter Control, Self-Care, Endurance, and Communication; and he had good Locomotion, Balance, Safety Awareness, Social Cognition, Transfers Control, Sphincter Control, Self-Care, Communication, a nd Endurance.Currently, he has deficits of Locomotion, Safety Awareness, Balance, Transfers Control, Self-Care, Communication, and Endurance.Pt. is now referred to [facility] for acute in-patient rehabilitation in order to maximize patient's functional independence in activities of daily living, strength, ROM, and mobility.- Rehab Goal Patient has realistic goal of being discharged at assistance level 6-Rashaun to reside at Home with Fam casper/Relatives. Her Hgb is low at 7.8. He is on hemocyte plus and ferrous sulfate.LyndonTXMDM/PLAN: - Physical Therapy Gait dysfunction - to improve, our physical therapists will perform initial evaluation of pt's statu s upon admission and devise an individualized program for Gait Training, and Wheel Chair mobility Inability to transfer - to improve, our physical therapists will perform initial evaluation of pt's status upon admission and devise an individualized program for Bed mobility Need for home safety evaluation - to improve, our physical therapists will perform initial evaluatio n of pt's status upon admission and devise an individualized program for Home Evaluation Need in caregiver upon discharge - to improve, our physical therapists will perform initial evaluati on of pt's status upon admission and devise an individualized program for Caregiver Training New precaution - to improve, our physical therapists will perform initial evaluation of pt's status upon admission and devise an individualized program for Patient precaution education Edema - to improve, our physical therapists will perform initial evaluation of pt's status upon admis nakul and devise an individualized program for Elevation Training, and Lymphedema Therapy Poor balance - to improve, our physical therapists will perform initial evaluation of pt's status up on admission and devise an individualized program for Balance Training Poor endurance - to improve, our physical therapists will perform initial evaluation of pt's status upon admission and devise an individualized program for Endurance Training Weakness - to improve, our physical therapists will perform initial evaluation of pt's status upon a dmission and devise an individualized program for Aquatic Therapy, Neuromuscular Reeducation, and Str engthening Achieving independence - to improve, our physical therapists will perform initial evaluation of pt's status upon admission and devise an individualized program for Community Reintegration Activities - Occupational Therapy ADL deficits - to improve, our occupation therapists will perform initial evaluation of pt's status upon admission and devise an individualized program for Bathing, Bed mobility, Community Reintegratio n, Cooking, Dressing, Eating, Fine Motor Skills, Grooming, Homemaking, Kitchen Mobility, Laundry, Pat ient Education, Safety Awareness, Splinting - Positioning, Transfers(Toilet, Tub, Shower), and Wheel Chair Management Need for lawn care specialist - to improve, our occupation therapists will perform initial evaluation of pt's status upon admission and devise an individualized program for Caregiver Training Weakness - to improve, our occupation therapists will perform initial evaluation of pt's status upon admission and devise an individualized program for Aquatic Therapy, Balance, Endurance, UE ROM, and UE strengthening - Other See attached MAR (Medication Administration Record) See attached MAR (Medication Administration Record) Ritika Hopper.pdf See attached MAR (Medication Administration Record) Ritika Hopper.pdf - Diet Type Continue Regular - Diet - Liquid Texture Continue Regular - Tube Feed Continue N/A - Lab Results blood Sugar Check ACHS - Diet - Solid Texture Continue Regular - Shower allowing shower FUNCTIONAL STATUS: UPDATED AT WEEKLY TEAM CONFERENCE - Bladder Same accident frequency: 7-Ind - No accidents in the past 7 days - Bowel Same accident frequency: 7-Ind - No accidents in the past 7 days - Walking Same score based on distance walked: 0(N/A) Same score based on distance walked: 2(50-149ft) - Wheelchair Same score based on distance traveled: 0(N/A) FUNCTIONAL STATUS: - Self-Care A. Eating Ind B. Grooming Rashaun C. Bathing Odalis D. Dressing - Upper sup E. Dressing - Lower Odalis F. Toileting Rashaun - Sphincter Control G. Bladder control Rashaun H. Bowel control Rashaun - Transfers Control I. Bed/Chair/Wheelchair Odalis J. Toilet sup K. Tub/Shower Odalis - Locomotion L. Walk/Wheelchair (B) Odalis M. Stairs modA - Communication N. Comprehension (B) Ind O. Expression (B) Ind - Social Cognition P. Social Interaction Ind Q. Problem Solving Ind R. Memory Ind - Endurance Fair - Balance Good - Safety Awareness Good QI SCORES: - Self-Care A. Eating 05-Setup or clean-up assistance B. Oral hygiene 05-Setup or clean-up assistance C. Toileting hygiene 02-Substantial/maximal assistance E. Shower/bathe self 03-Partial/moderate assistance F. Upper body dressing 03-Partial/moderate assistance G. Lower body dressing 01-Dependent H. Putting on/taking off footwear 01-Dependent - Mobility A. Roll left and right 03-Partial/moderate assistance B. Sit to lying 03-Partial/moderate assistance C. Lying to sitting on side of bed 03-Partial/moderate assistance D. Sit to stand 03-Partial/moderate assistance E. Chair/ubq-qm-xolai transfer 03-Partial/moderate assistance F. Toilet transfer 03-Partial/moderate assistance G. Car transfer 10-Not attempted due to environmental limitations I. Walk 10 feet 03-Partial/moderate assistance J. Walk 50 feet with two turns 88-Not attempted due to medical condition or safety concerns K. Walk 150 feet 03-Partial/moderate assistance L. Walking 10 feet on uneven surfaces 88-Not attempted due to medical condition or safety concerns M. 1 step (curb) 88-Not attempted due to medical condition or safety concerns N. 4 steps 88-Not attempted due to medical condition or safety concerns O. 12 steps 88-Not attempted due to medical condition or safety concerns P. Picking up object 88-Not attempted due to medical condition or safety concerns R. Wheel 50 feet with two turns 88-Not attempted due to medical condition or safety concerns S. Wheel 150 feet 88-Not attempted due to medical condition or safety concerns - Bladder and Bowel Bladder continence 0-Always continent Bowel continence 0-Always continent - Endurance Poor - Balance Fair - Safety Awareness Fair CURRENT [facility]. DEFICITS: Self-Care, Mobility, Endurance, Balance, and Safety Awareness SIGNATURE PANEL: (CDT)
[2019-11-12] MEDS: HYDROCODONE/APAP 7.5/325 MG TAB PO PRN ×4 (03:26→16:29)
[2019-11-12] MEDS: LORAZEPAM 0.5 MG TABLET PO PRN (03:27)
[2019-11-12] MEDS: INSULIN -REGULAR HUMAN 50 UNIT/0.5 ML ML SQ SCH ×4 (07:30→21:00)
[2019-11-12] MEDS: PANTOPRAZOLE 40MG TABLET PO SCH ×2 (07:50→16:23)
[2019-11-12] MEDS: JUVEN PACKET PO SCH ×2 (08:00→20:00)
[2019-11-12] MEDS: FE SULF/FA/VIT B COMP & C TAB PO SCH (08:00)
[2019-11-12] MEDS: GABAPENTIN 300 MG CAP PO SCH ×2 (08:54→21:08)
[2019-11-12] MEDS: DOCUSATE NA 100 MG CAP PO SCH ×2 (08:54→21:07)
[2019-11-12] MEDS: POLYETHYL GLY 3350 17 GM/DOSE PO SCH (08:54)
[2019-11-12] MEDS: SEVELAMER CARBONATE 800 MG TABLET PO SCH ×3 (08:54→16:23)
[2019-11-12] MEDS: DULOXETINE 20 MG CAP PO SCH (08:55)
[2019-11-12] MEDS: ASPIRIN 81 MG CHEWABLE TABLET PO SCH (08:55)
[2019-11-12] MEDS: FERROUS SULFATE 325 MG TAB PO SCH (08:55)
[2019-11-12] MEDS: APIXABAN 2.5 MG TABLET PO SCH ×2 (08:55→21:06)
[2019-11-12] MEDS: VITAMIN D 5,000 UNIT CAP PO SCH (08:55)
--- NOTE | 2019-11-12 08:55 | EKG ---
Test Date: 2019-11-10 Test Time: 20:32:37 Medical Sociologist: RT MEASUREMENT RESULTS: Intervals: Rate: 80 AR: 280 QRSD: 140 QT: 410 QTc: 472 [place]: P: 22 AR: 280 QRS: -68 T: 84 INTERPRETIVE STATEMENTS: Sinus rhythm with 1st degree AV block Right bundle branch block Left anterior fascicular block Bifascicular block Abnormal ECG Compared to ECG 11/08/2019 20:59:14 Left anterior fascicular block now present Bifascicular block now present Electronically Signed On 11-12-19 08:53:13 CDT by Moises Solorzano
[2019-11-12] MEDS: INSULIN GLARGINE 100 UNITS/ML SQ SCH ×2 (08:56→21:11)
[2019-11-12] MEDS: DOCOSAHEXANOIC AC/EPA 1000 MG PO SCH ×2 (08:56→21:06)
--- NOTE | 2019-11-12 14:49 | FAST ---
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 James Jules M.D. ADMISSION DIAGNOSIS: - Cardiac 09 - Cardiac Disorders () NSTEMI. EATING: Not assessed/no information CODE: - ORAL HYGIENE: ORAL HYGIENE - STEP 1: Does the patient complete the activity by him/herself with no assistance (physical, verbal/nonverbal cueing, setup/clean-up)? Yes. 1. [id number] ADMISSION PERFORMANCE: Independent CODE: 06 TOILETING HYGIENE: Not assessed/no information CODE: - BATHING: SHOWER/BATHE SELF - STEP 1: Does the patient complete the activity by him/herself with no assistance (physical, verbal/nonverbal cueing, setup/clean-up)? No. SHOWER/BATHE SELF - STEP 2: Does the patient need only setup/clean-up assistance from one helper? No. SHOWER/BATHE SELF - STEP 3: Does the patient need only verbal/nonverbal cueing or touching/steadying/contact guard assistance fro m one helper? Yes. 1. [id number] ADMISSION PERFORMANCE: Supervision or touching assistance CODE: 04 DRESSING - UPPER BODY: DRESSING - UPPER BODY - STEP 1: Does the patient complete the activity by him/herself with no assistance (physical, verbal/nonverbal cueing, setup/clean-up)? No. DRESSING - UPPER BODY - STEP 2: Does the patient need only setup/clean-up assistance from one helper? Yes. 1. [id number] ADMISSION PERFORMANCE: Setup or clean-up assistance CODE: 05 DRESSING - LOWER BODY: DRESSING - LOWER BODY - STEP 1: Does the patient complete the activity by him/herself with no assistance (physical, verbal/nonverbal cueing, setup/clean-up)? No. DRESSING - LOWER BODY - STEP 2: Does the patient need only setup/clean-up assistance from one helper? No. DRESSING - LOWER BODY - STEP 3: Does the patient need only verbal/nonverbal cueing or touching/steadying/contact guard assistance fro m one helper? Yes. 1. [id number] ADMISSION PERFORMANCE: Supervision or touching assistance CODE: 04 PUTTING ON/TAKING OFF FOOTWEAR: FOOTWEAR - STEP 1: Does the patient complete the activity by him/herself with no assistance (physical, verbal/nonverbal cueing, setup/clean-up)? No. FOOTWEAR - STEP 2: Does the patient need only setup/clean-up assistance from one helper? No. FOOTWEAR - STEP 3: Does the patient need only verbal/nonverbal cueing or touching/steadying/contact guard assistance fro m one helper? Yes. 1. [id number] ADMISSION PERFORMANCE: Supervision or touching assistance CODE: 04 DOES THE PATIENT USE A WHEELCHAIR/SCOOTER? CODE: EXPR INDICATE THE TYPE OF WHEELCHAIR/SCOOTER USED: CODE: EXPR INDICATE THE TYPE OF WHEELCHAIR/SCOOTER USED: CODE: EXPR BLADDER AND BOWEL: CODE: EXPR CODE: EXPR SIGNATURE PANEL: The following modified sections: 1. [id number] Admission Performance, 1. [id number] Admission Performance, 1. [id number] Admission Performance, 1. [id number] Admission Performance, 1. [id number] Admission Performance, 1. [id number] Admission Performance were [electronically] signed by BRENT Meraz on MonNov 12 2019 14:49:12 T-0500 (Central Daylight Time)
[2019-11-12] MEDS ORDERED: ALBUTEROL 2.5 MG/3 ML NEB SOL NEB PRN (16:00)
--- NOTE | 2019-11-12 16:05 | FAST ---
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 James Jules M.D. ADMISSION DIAGNOSIS: - Cardiac 09 - Cardiac Disorders (09) NSTEMI. EATING: EATING - STEP 1: Does the patient complete the activity by him/herself with no assistance (physical, verbal/nonverbal cueing, setup/clean-up)? No. EATING - STEP 2: Does the patient need only setup/clean-up assistance from one helper? Yes. 1. [id number] ADMISSION PERFORMANCE: Setup or clean-up assistance CODE: 05 ORAL HYGIENE: ORAL HYGIENE - STEP 1: Does the patient complete the activity by him/herself with no assistance (physical, verbal/nonverbal cueing, setup/clean-up)? Yes. 1. [id number] ADMISSION PERFORMANCE: Independent CODE: 06 TOILETING HYGIENE: TOILETING HYGIENE - STEP 1: Does the patient complete the activity by him/herself with no assistance (physical, verbal/nonverbal cueing, setup/clean-up)? Yes. 1. [id number] ADMISSION PERFORMANCE: Independent CODE: 06 BATHING: Not assessed/no information CODE: - DRESSING - UPPER BODY: DRESSING - UPPER BODY - STEP 1: Does the patient complete the activity by him/herself with no assistance (physical, verbal/nonverbal cueing, setup/clean-up)? No. DRESSING - UPPER BODY - STEP 2: Does the patient need only setup/clean-up assistance from one helper? Yes. 1. [id number] ADMISSION PERFORMANCE: Setup or clean-up assistance CODE: 05 DRESSING - LOWER BODY: DRESSING - LOWER BODY - STEP 1: Does the patient complete the activity by him/herself with no assistance (physical, verbal/nonverbal cueing, setup/clean-up)? No. DRESSING - LOWER BODY - STEP 2: Does the patient need only setup/clean-up assistance from one helper? Yes. 1. [id number] ADMISSION PERFORMANCE: Setup or clean-up assistance CODE: 05 PUTTING ON/TAKING OFF FOOTWEAR: FOOTWEAR - STEP 1: Does the patient complete the activity by him/herself with no assistance (physical, verbal/nonverbal cueing, setup/clean-up)? No. FOOTWEAR - STEP 2: Does the patient need only setup/clean-up assistance from one helper? Yes. 1. [id number] ADMISSION PERFORMANCE: Setup or clean-up assistance CODE: 05 DOES THE PATIENT USE A WHEELCHAIR/SCOOTER? CODE: EXPR INDICATE THE TYPE OF WHEELCHAIR/SCOOTER USED: CODE: EXPR INDICATE THE TYPE OF WHEELCHAIR/SCOOTER USED: CODE: EXPR BLADDER AND BOWEL: H350. BLADDER CONTINENCE (3-DAY ASSESSMENT PERIOD): Always continent (no documented incontinence) CODE: 0 H400. BOWEL CONTINENCE (3-DAY ASSESSMENT PERIOD): Always continent CODE: 0 SIGNATURE PANEL: The following modified sections: 1. [id number] Admission Performance, 1. [id number] Admission Performance, 1. [id number] Admission Performance, 1. [id number] Admission Performance, 1. HL0626u Admission Performance, 1. [id number] Admission Performance, H350. Bladder Continence (3-day assessment period), H400. Bowel Co ntinence (3-day assessment period) were [electronically] signed by Estephanie Moura C.N.A. on MonNov 12 2019 16:04:26 GMT-0500 (Central Daylight Time)
--- NOTE | 2019-11-12 17:42 | R.PN ---
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 Pt denied any depression. He ambulated 260' and 180' with contact guard assistance and no assistive device. Up and down 5 steps using bilateral hand rails with contact guard assistance. VITAL SIGNS Temperature: 97.8 F SBP/DBP: 100/50 Pulse: 80 Resp: 14 MEDICATION ALLERGIES: Sulfa ENVIRONMENTAL ALLERGIES: None Known - Substance Allergies None Known - Other Allergies None Known NURSING: - Shower allowing shower - Lab Results blood Sugar Check ACHS ACTIVITIES OOB only with supervision THERAPIES: - Dietary and Nutrition Adequate Nutrition. Nutritional Education. Nutritional Supplements. PHYSICAL EXAM - Gen Alert and awake Lying in bed No apparent distress Oriented to: person, time, and place - Skin No skin breakdown. Normacephalic - Eyes No abnormalities - ENMT No abnormalities - Neck No abnormalities - CVS RRR - Chest Mildly decreased breath sounds bilaterally. - Resp Clear to auscultation - Abd Soft - GI Soft Deferred - No abnormalities - Ext No significant edema - MSK 4+/5 weakness in both lower extremities. - Neuro No focal deficits - Psych No abnormalities ASSESSMENT: Pt. is a 69 yo Right-handed white male.On 10/22/2019 he was admitted to [facility] with diagnosis NSTEMI.His impairment category is Cardiac 09 - Cardiac Disorders (09).Pre-morbidly, Pt. was independent/mod-I in Locomotion, Safety Awareness, Balance, Social Cognition, Transfers Contr ol, Sphincter Control, Self-Care, Endurance, and Communication; and he had good Locomotion, Balance, Safety Awareness, Social Cognition, Transfers Control, Sphincter Control, Self-Care, Communication, a nd Endurance.Currently, he has deficits of Locomotion, Safety Awareness, Balance, Transfers Control, Self-Care, Communication, and Endurance.Pt. is now referred to [facility] for acute in-patient rehabilitation in order to maximize patient's functional independence in activities of daily living, strength, ROM, and mobility.- Rehab Goal Patient has realistic goal of being discharged at assistance level 6-Rashaun to reside at Home with Fam casper/Relatives. Her Hgb is low at 7.8. He is on hemocyte plus and ferrous sulfate.JamesTXMARIELLA/PLAN: - Physical Therapy Gait dysfunction - to improve, our physical therapists will perform initial evaluation of pt's statu s upon admission and devise an individualized program for Gait Training, and Wheel Chair mobility Inability to transfer - to improve, our physical therapists will perform initial evaluation of pt's status upon admission and devise an individualized program for Bed mobility Need for home safety evaluation - to improve, our physical therapists will perform initial evaluatio n of pt's status upon admission and devise an individualized program for Home Evaluation Need in caregiver upon discharge - to improve, our physical therapists will perform initial evaluati on of pt's status upon admission and devise an individualized program for Caregiver Training New precaution - to improve, our physical therapists will perform initial evaluation of pt's status upon admission and devise an individualized program for Patient precaution education Edema - to improve, our physical therapists will perform initial evaluation of pt's status upon admi ssion and devise an individualized program for Elevation Training, and Lymphedema Therapy Poor balance - to improve, our physical therapists will perform initial evaluation of pt's status up on admission and devise an individualized program for Balance Training Poor endurance - to improve, our physical therapists will perform initial evaluation of pt's status upon admission and devise an individualized program for Endurance Training Weakness - to improve, our physical therapists will perform initial evaluation of pt's status upon a dmission and devise an individualized program for Aquatic Therapy, Neuromuscular Reeducation, and Str engthening Achieving independence - to improve, our physical therapists will perform initial evaluation of pt's status upon admission and devise an individualized program for Community Reintegration Activities - Occupational Therapy ADL deficits - to improve, our occupation therapists will perform initial evaluation of pt's status upon admission and devise an individualized program for Bathing, Bed mobility, Community Reintegratio n, Cooking, Dressing, Eating, Fine Motor Skills, Grooming, Homemaking, Kitchen Mobility, Laundry, Pat ient Education, Safety Awareness, Splinting - Positioning, Transfers(Toilet, Tub, Shower), and Wheel Chair Management Need for day care director - to improve, our occupation therapists will perform initial evaluation of pt's status upon admission and devise an individualized program for Caregiver Training Weakness - to improve, our occupation therapists will perform initial evaluation of pt's status upon admission and devise an individualized program for Aquatic Therapy, Balance, Endurance, UE ROM, and UE strengthening - Other See attached MAR (Medication Administration Record) See attached MAR (Medication Administration Record) Ritika Hopper.pdf - Diet Type Continue Regular - Diet - Liquid Texture Continue Regular - Tube Feed Continue N/A - Lab Results blood Sugar Check ACHS - Diet - Solid Texture Continue Regular - Shower allowing shower FUNCTIONAL STATUS: UPDATED AT WEEKLY TEAM CONFERENCE - Bladder Same accident frequency: 7-Ind - No accidents in the past 7 days - Bowel Same accident frequency: 7-Ind - No accidents in the past 7 days - Walking Same score based on distance walked: 0(N/A) Same score based on distance walked: 2(50-149ft) - Wheelchair Same score based on distance traveled: 0(N/A) FUNCTIONAL STATUS: - Self-Care A. Eating Ind B. Grooming Rashaun C. Bathing Odalis D. Dressing - Upper sup E. Dressing - Lower Odalis F. Toileting Rashaun - Sphincter Control G. Bladder control Rashaun H. Bowel control Rashaun - Transfers Control I. Bed/Chair/Wheelchair Odalis J. Toilet sup K. Tub/Shower Odalis - Locomotion L. Walk/Wheelchair (B) Odalis M. Stairs modA - Communication N. Comprehension (B) Ind O. Expression (B) Ind - Social Cognition P. Social Interaction Ind Q. Problem Solving Ind R. Memory Ind - Endurance Fair - Balance Good - Safety Awareness Good QI SCORES: - Self-Care A. Eating 05-Setup or clean-up assistance B. Oral hygiene 05-Setup or clean-up assistance C. Toileting hygiene 02-Substantial/maximal assistance E. Shower/bathe self 03-Partial/moderate assistance F. Upper body dressing 03-Partial/moderate assistance G. Lower body dressing 01-Dependent H. Putting on/taking off footwear 01-Dependent - Mobility A. Roll left and right 03-Partial/moderate assistance B. Sit to lying 03-Partial/moderate assistance C. Lying to sitting on side of bed 03-Partial/moderate assistance D. Sit to stand 03-Partial/moderate assistance E. Chair/hxo-pa-zdirc transfer 03-Partial/moderate assistance F. Toilet transfer 03-Partial/moderate assistance G. Car transfer 10-Not attempted due to environmental limitations I. Walk 10 feet 03-Partial/moderate assistance J. Walk 50 feet with two turns 88-Not attempted due to medical condition or safety concerns K. Walk 150 feet 03-Partial/moderate assistance L. Walking 10 feet on uneven surfaces 88-Not attempted due to medical condition or safety concerns M. 1 step (curb) 88-Not attempted due to medical condition or safety concerns N. 4 steps 88-Not attempted due to medical condition or safety concerns O. 12 steps 88-Not attempted due to medical condition or safety concerns P. Picking up object 88-Not attempted due to medical condition or safety concerns R. Wheel 50 feet with two turns 88-Not attempted due to medical condition or safety concerns S. Wheel 150 feet 88-Not attempted due to medical condition or safety concerns - Bladder and Bowel Bladder continence 0-Always continent Bowel continence 0-Always continent - Endurance Poor - Balance Fair - Safety Awareness Fair CURRENT [facility]. DEFICITS: Self-Care, Mobility, Endurance, Balance, and Safety Awareness SIGNATURE PANEL: (CDT)
[2019-11-12] MEDS ORDERED: MELATONIN 3 MG TABLET PO PRN ×2 (19:28→22:29)
[2019-11-12] MEDS ORDERED: HEPARIN 10,000 UNIT/10 ML VIAL IV PRN (20:00)
[2019-11-12] MEDS ORDERED: MELATONIN 3 MG TABLET PO SCH (21:00)
[2019-11-12] MEDS: FEXOFENADINE 180 MG TAB PO SCH (21:07)
[2019-11-12] MEDS: ATORVASTATIN 40 MG TAB PO SCH (21:07)
[2019-11-12] MEDS: TRAZODONE 50 MG TABLET PO SCH (21:07)
[2019-11-12] MEDS: MONTELUKAST 10 MG TAB PO SCH (21:07)
[2019-11-13] MEDS: INSULIN -REGULAR HUMAN 50 UNIT/0.5 ML ML SQ SCH ×4 (07:30→19:57)
[2019-11-13] MEDS: PANTOPRAZOLE 40MG TABLET PO SCH ×2 (07:44→19:40)
[2019-11-13] MEDS: HYDROCODONE/APAP 7.5/325 MG TAB PO PRN ×2 (07:49→12:29)
[2019-11-13] MEDS: INSULIN GLARGINE 100 UNITS/ML SQ SCH ×2 (09:00→19:56)
[2019-11-13] MEDS: JUVEN PACKET PO SCH ×2 (09:00→19:56)
[2019-11-13] MEDS: SEVELAMER CARBONATE 800 MG TABLET PO SCH ×3 (09:00→19:40)
[2019-11-13] MEDS: POLYETHYL GLY 3350 17 GM/DOSE PO SCH (09:00)
[2019-11-13] MEDS: FERROUS SULFATE 325 MG TAB PO SCH (09:01)
[2019-11-13] MEDS: GABAPENTIN 300 MG CAP PO SCH ×2 (09:01→19:55)
[2019-11-13] MEDS: DULOXETINE 20 MG CAP PO SCH (09:02)
[2019-11-13] MEDS: DOCUSATE NA 100 MG CAP PO SCH ×2 (09:02→19:56)
[2019-11-13] MEDS: DOCOSAHEXANOIC AC/EPA 1000 MG PO SCH ×2 (09:02→19:48)
[2019-11-13] MEDS: VITAMIN D 5,000 UNIT CAP PO SCH (09:02)
[2019-11-13] MEDS: APIXABAN 2.5 MG TABLET PO SCH ×2 (09:02→19:55)
[2019-11-13] MEDS: ASPIRIN 81 MG CHEWABLE TABLET PO SCH (09:02)
[2019-11-13] MEDS: FE SULF/FA/VIT B COMP & C TAB PO SCH (09:03)
[2019-11-13] MEDS: MIDODRINE HCL 5 MG TABLET PO SCH (12:30)
[2019-11-13] MEDS: LIDOCAINE/PRILOCAINE CREAM TOP SCH (12:31)
--- NOTE | 2019-11-13 15:08 | P.PN ---
Date of Service: 11/13/19 Vital Signs Temp Pulse Resp BP Pulse Ox 98.2 F 84 16 117/44 L 95 11/13/19 07:44 11/13/19 07:44 11/13/19 13:29 11/13/19 07:44 11/13/19 13:29 Medications Hydrocodone Bitart/Acetaminophen ([place]um[place] 7.5/325 Mg) 1 tab PO Q4H PRN PRN Reason: Pain scale 8-10 (Severe) Stop: 12/08/19 10:42 Last Admin: 11/13/19 12:29 Dose: 1 tab Albuterol Sulfate (Proventil 0.083% Neb Soln) 2.5 mg NEB [id number] PRN PRN Reason: SHORTNESS OF BREATH Stop: 12/06/19 23:24 Apixaban (Eliquis) 2.5 mg PO BID JOHNATHON Stop: 12/07/19 08:01 Last Admin: 11/13/19 09:02 Dose: 2.5 mg Aspirin (Aspirin Chewable) 81 mg PO DAILY JOHNATHON Stop: 12/07/19 08:01 Last Admin: 11/13/19 09:02 Dose: 81 mg Atorvastatin Calcium (Lipitor) 40 mg PO BEDTIME JOHNATHON Stop: 12/07/19 21:01 Last Admin: 11/12/19 21:07 Dose: 40 mg Cholecalciferol (Vitamin D 5,000 Iu Cap) 10,000 unit PO DAILY JOHNATHON Stop: 12/07/19 08:01 Last Admin: 11/13/19 09:02 Dose: 10,000 unit Dextrose (Dextrose 50% Syringe/Vial) 12.5 gm IV PRN PRN; Protocol PRN Reason: HYPOGLYCEMIA Stop: 12/07/19 02:18 Docusate Sodium (Colace Cap) 100 mg PO BID JOHNATHON Stop: 12/07/19 08:01 Last Admin: 11/13/19 09:02 Dose: 100 mg Duloxetine HCl (Cymbalta Delayed Release Pellets) 20 mg PO DAILY JOHNATHON Stop: 12/12/19 08:01 Last Admin: 11/13/19 09:02 Dose: 20 mg Ferrous Sulfate (Feosol) 325 mg PO DAILY JOHNATHON Stop: 12/07/19 08:01 Last Admin: 11/13/19 09:01 Dose: 325 mg Fexofenadine HCl (Cami) 180 mg PO BEDTIME JOHNATHON Stop: 12/07/19 21:01 Last Admin: 11/12/19 21:07 Dose: 180 mg Fish Oil (Fish Oil 1,000 Mg Cap) 2,000 mg PO BID JOHNATHON Stop: 12/07/19 08:01 Last Admin: 11/13/19 09:02 Dose: 2,000 mg Gabapentin (Neurontin) 600 mg PO BID JOHNATHON Stop: 12/11/19 08:01 Last Admin: 11/13/19 09:01 Dose: 600 mg Glucagon (Glucagen) 1 mg IM 1X PRN; Protocol PRN Reason: HYPOGLYCEMIA Stop: 12/07/19 02:18 Heparin Sodium (Porcine) (Heparin 10,000 Units/10 Ml Vial) 6,000 unit IV EVERY HD PRN PRN Reason: FLUSH AFTER EACH USE Stop: 12/07/19 17:00 Heparin Sodium (Porcine) (Heparin 1,000 Units/Ml) 2,000 unit IV EVERY HD JOHNATHON Stop: 11/18/19 11:01 Albumin Human (Albumin 25%) 50 mls @ 100 mls/hr IV EVERY HD JOHNATHON Stop: 12/07/19 17:01 Insulin Glargine (Lantus) 10 units SQ BEDTIME JOHNATHON Stop: 12/07/19 21:01 Last Admin: 11/12/19 21:11 Dose: 10 units Insulin Glargine (Lantus) 20 units SQ DAILY WITH BREAKFAST JOHNATHON Stop: 12/07/19 08:01 Last Admin: 11/13/19 09:00 Dose: 20 units Insulin Human Regular (Novolin -R) 0 unit SQ ACHS JOHNATHON; Protocol Stop: 12/07/19 07:31 Last Admin: 11/13/19 11:30 Dose: Not Given L-Arginine/L-Glutamine/HMB (Beni) 1 pkt PO BID JOHNATHON Stop: 12/07/19 20:01 Last Admin: 11/13/19 09:00 Dose: 1 pkt Lidocaine/Prilocaine (Emla Cream) 1 appl TOP EVERY HD JOHNATHON Stop: 12/10/19 14:01 Last Admin: 11/13/19 12:31 Dose: 1 appl Lorazepam (Ativan) 0.5 mg PO Q12HP PRN PRN Reason: ANXIETY Stop: 12/08/19 21:38 Last Admin: 11/12/19 03:27 Dose: 0.5 mg Mannitol (Mannitol 12.5 Gm/50 Ml Vial) 12.5 gm IV EVERY HD PRN PRN Reason: FOR BP SUPPORT AT HD Stop: 12/07/19 17:00 Melatonin (Melatonin) 3 mg PO BEDTIME PRN PRN PRN Reason: INSOMNIA Stop: 12/12/19 19:26 Midodrine (Proamatine) 10 mg PO EVERY HD JOHNATHON Stop: 12/07/19 03:01 Last Admin: 11/13/19 12:30 Dose: 10 mg Montelukast Sodium (Singulair) 10 mg PO BEDTIME JOHNATHON Stop: 12/07/19 21:01 Last Admin: 11/12/19 21:07 Dose: 10 mg Multivitamins/Iron (Hemocyte Plus) 1 tab PO DAILY WITH BREAKFAST [facility] Stop: 12/07/19 08:01 Last Admin: 11/13/19 09:03 Dose: 1 tab Ondansetron HCl (Zofran) 4 mg PO Q4H PRN PRN Reason: NAUSEA / VOMITING Stop: 12/10/19 06:20 Last Admin: 11/10/19 06:28 Dose: 4 mg Pantoprazole Sodium (Protonix Tab) 40 mg PO BIDAC [facility]; Protocol Stop: 12/07/19 07:31 Last Admin: 11/13/19 07:44 Dose: 40 mg Polyethylene Glycol (Glycolax) 17 gm PO DAILY JOHNATHON Stop: 12/07/19 08:01 Last Admin: 11/13/19 09:00 Dose: 17 gm Sevelamer Carbonate (Renvela) 1,600 mg PO TIDWM [facility] Stop: 12/07/19 08:01 Last Admin: 11/13/19 12:18 Dose: 1,600 mg Tramadol HCl (Ultram) 50 mg PO Q4H PRN PRN Reason: Pain scale 2-4 (Mild) Stop: 12/11/19 14:45 Last Admin: 11/11/19 18:55 Dose: 50 mg Trazodone HCl (Desyrel) 25 mg PO BEDTIME [facility] Stop: 12/12/19 21:01 Last Admin: 11/12/19 21:07 Dose: 25 mg Lab Results (last 24 hrs) 11/13/19 12:05: POC Glucose 166 H 11/13/19 07:48: POC Glucose 139 H 11/12/19 20:37: POC Glucose 190 H 11/12/19 16:26: POC Glucose 166 H Assessment/ Plan: Nephrology Feeling better with improving edema. CPS stable without CP or SOB. +LOREDO No acute events overnight. Vitals, medications, blood work and imaging reviewed in the chart. General: In no apparent distress, Oriented x3, Cooperative HEENT: Atraumatic Neck: Supple Respiratory: Clear to auscultation bilaterally Cardiovascular: Edema Gastrointestinal: Normal bowel sounds, Soft and benign Musculoskeletal: No clubbing, No contractures Integumentary: No rashes, No cyanosis, Skin lesion Neurological: Normal speech Laboratory Data (last 24 hrs) 11/07/19 05:40: Sodium 140, Potassium 3.8, BUN 24 H, Creatinine 4.82 H, Glucose 116 H, Magnesium 2.2 11/07/19 05:40: WBC 5.7, Hgb 7.8 L*, Hct 23.2 L, Plt Count 273 Conclusions/Impression: A/ ESRD on HD. HTN with CKD/ CHF. CHRIS on CPAP. Diastolic CHF, chronic. DM II with CKD. Anemia in CKD. LADONNA/ Secondary HyperPTH. Nephrolithiasis. CAD. P/ Continue current POC and Medications. HD TIW. Seen and examined on HD. Give Retacrit. Encourage nutrition. Low sodium diet. PT as tolerated. No NSAIDs. AM labs PRN. Daily weight.
--- NOTE | 2019-11-13 18:07 | R.PN ---
ENCOUNTER DATE AND TIME: 11/13/2019 18:00 (CDT) NAME MARYAM HOPPER DATE OF : 1950 DATE OF ADMISSION: 11/06/2019 22:56 ([employer]) NSTEMICHIEF COMPLAINT: NSTEMI and cardiac debility SUBJECTIVE: Pt denied any Shortness of Breath. Pt denied any depression. He ambulated 260' x 2 with contact guard assistance and no assistive device. Up and down 12 steps usi ng bilateral hand rails with contact guard assistance. Self-propelled wheelchair 250' with standby as sistance. Glucose 136 to 166. VITAL SIGNS Temperature: 98.2 F SBP/DBP: 117/44 Pulse: 84 Resp: 14 MEDICATION ALLERGIES: Sulfa ENVIRONMENTAL ALLERGIES: None Known - Substance Allergies None Known - Other Allergies None Known NURSING: - Shower allowing shower - Lab Results blood Sugar Check ACHS ACTIVITIES OOB only with supervision THERAPIES: - Dietary and Nutrition Adequate Nutrition. Nutritional Education. Nutritional Supplements. PHYSICAL EXAM - Gen Alert and awake Lying in bed No apparent distress Oriented to: person, time, and place - Skin No skin breakdown. Normacephalic - Eyes No abnormalities - ENMT No abnormalities - Neck No abnormalities - CVS RRR - Chest Mildly decreased breath sounds bilaterally. - Resp Clear to auscultation - Abd Soft - GI Soft Deferred - No abnormalities - Ext No significant edema - MSK 4+/5 weakness in both lower extremities. - Neuro No focal deficits - Psych No abnormalities ASSESSMENT: Pt. is a 69 yo Right-handed white male.On 10/22/2019 he was admitted to [facility] with diagnosis NSTEMI.His impairment category is Cardiac 09 - Cardiac Disorders (09).Pre-morbidly, Pt. was independent/mod-I in Locomotion, Safety Awareness, Balance, Social Cognition, Transfers Contr ol, Sphincter Control, Self-Care, Endurance, and Communication; and he had good Locomotion, Balance, Safety Awareness, Social Cognition, Transfers Control, Sphincter Control, Self-Care, Communication, a nd Endurance.Currently, he has deficits of Locomotion, Safety Awareness, Balance, Transfers Control, Self-Care, Communication, and Endurance.Pt. is now referred to [facility] for acute in-patient rehabilitation in order to maximize patient's functional independence in activities of daily living, strength, ROM, and mobility.- Rehab Goal Patient has realistic goal of being discharged at assistance level 6-Rashaun to reside at Home with Fam casper/Relatives. Her Hgb is low at 7.8. He is on hemocyte plus and ferrous sulfate.[place]/PLAN: - Physical Therapy Gait dysfunction - to improve, our physical therapists will perform initial evaluation of pt's statu s upon admission and devise an individualized program for Gait Training, and Wheel Chair mobility Inability to transfer - to improve, our physical therapists will perform initial evaluation of pt's status upon admission and devise an individualized program for Bed mobility Need for home safety evaluation - to improve, our physical therapists will perform initial evaluatio n of pt's status upon admission and devise an individualized program for Home Evaluation Need in caregiver upon discharge - to improve, our physical therapists will perform initial evaluati on of pt's status upon admission and devise an individualized program for Caregiver Training New precaution - to improve, our physical therapists will perform initial evaluation of pt's status upon admission and devise an individualized program for Patient precaution education Edema - to improve, our physical therapists will perform initial evaluation of pt's status upon admi ssion and devise an individualized program for Elevation Training, and Lymphedema Therapy Poor balance - to improve, our physical therapists will perform initial evaluation of pt's status up on admission and devise an individualized program for Balance Training Poor endurance - to improve, our physical therapists will perform initial evaluation of pt's status upon admission and devise an individualized program for Endurance Training Weakness - to improve, our physical therapists will perform initial evaluation of pt's status upon a dmission and devise an individualized program for Aquatic Therapy, Neuromuscular Reeducation, and Str engthening Achieving independence - to improve, our physical therapists will perform initial evaluation of pt's status upon admission and devise an individualized program for Community Reintegration Activities - Occupational Therapy ADL deficits - to improve, our occupation therapists will perform initial evaluation of pt's status upon admission and devise an individualized program for Bathing, Bed mobility, Community Reintegratio n, Cooking, Dressing, Eating, Fine Motor Skills, Grooming, Homemaking, Kitchen Mobility, Laundry, Pat ient Education, Safety Awareness, Splinting - Positioning, Transfers(Toilet, Tub, Shower), and Wheel Chair Management Need for skin care consultant - to improve, our occupation therapists will perform initial evaluation of pt's status upon admission and devise an individualized program for Caregiver Training Weakness - to improve, our occupation therapists will perform initial evaluation of pt's status upon admission and devise an individualized program for Aquatic Therapy, Balance, Endurance, UE ROM, and UE strengthening - Other See attached MAR (Medication Administration Record) See attached MAR (Medication Administration Record) Ritika Hopper.pdf - Diet Type Continue Regular - Diet - Liquid Texture Continue Regular - Tube Feed Continue N/A - Lab Results blood Sugar Check ACHS - Diet - Solid Texture Continue Regular - Shower allowing shower FUNCTIONAL STATUS: UPDATED AT WEEKLY TEAM CONFERENCE - Bladder Same accident frequency: 7-Ind - No accidents in the past 7 days - Bowel Same accident frequency: 7-Ind - No accidents in the past 7 days - Walking Same score based on distance walked: 0(N/A) Same score based on distance walked: 2(50-149ft) - Wheelchair Same score based on distance traveled: 0(N/A) FUNCTIONAL STATUS: - Self-Care A. Eating Ind B. Grooming Rashaun C. Bathing Odalis D. Dressing - Upper sup E. Dressing - Lower Odalis F. Toileting Rashaun - Sphincter Control G. Bladder control Rashaun H. Bowel control Rashaun - Transfers Control I. Bed/Chair/Wheelchair Odalis J. Toilet sup K. Tub/Shower Odalis - Locomotion L. Walk/Wheelchair (B) Odalis M. Stairs modA - Communication N. Comprehension (B) Ind O. Expression (B) Ind - Social Cognition P. Social Interaction Ind Q. Problem Solving Ind R. Memory Ind - Endurance Fair - Balance Good - Safety Awareness Good QI SCORES: - Self-Care A. Eating 05-Setup or clean-up assistance B. Oral hygiene 05-Setup or clean-up assistance C. Toileting hygiene 02-Substantial/maximal assistance E. Shower/bathe self 03-Partial/moderate assistance F. Upper body dressing 03-Partial/moderate assistance G. Lower body dressing 01-Dependent H. Putting on/taking off footwear 01-Dependent - Mobility A. Roll left and right 03-Partial/moderate assistance B. Sit to lying 03-Partial/moderate assistance C. Lying to sitting on side of bed 03-Partial/moderate assistance D. Sit to stand 03-Partial/moderate assistance E. Chair/itw-xy-gumaw transfer 03-Partial/moderate assistance F. Toilet transfer 03-Partial/moderate assistance G. Car transfer 10-Not attempted due to environmental limitations I. Walk 10 feet 03-Partial/moderate assistance J. Walk 50 feet with two turns 88-Not attempted due to medical condition or safety concerns K. Walk 150 feet 03-Partial/moderate assistance L. Walking 10 feet on uneven surfaces 88-Not attempted due to medical condition or safety concerns M. 1 step (curb) 88-Not attempted due to medical condition or safety concerns N. 4 steps 88-Not attempted due to medical condition or safety concerns O. 12 steps 88-Not attempted due to medical condition or safety concerns P. Picking up object 88-Not attempted due to medical condition or safety concerns R. Wheel 50 feet with two turns 88-Not attempted due to medical condition or safety concerns S. Wheel 150 feet 88-Not attempted due to medical condition or safety concerns - Bladder and Bowel Bladder continence 0-Always continent Bowel continence 0-Always continent - Endurance Poor - Balance Fair - Safety Awareness Fair [facility] DEFIC[facility]: Self-Care, Mobility, Endurance, Balance, and Safety Awareness SIGNATURE PANEL: (CDT)
[2019-11-13] MEDS: MONTELUKAST 10 MG TAB PO SCH (19:55)
[2019-11-13] MEDS: FEXOFENADINE 180 MG TAB PO SCH (19:55)
[2019-11-13] MEDS: TRAZODONE 50 MG TABLET PO SCH (19:56)
[2019-11-13] MEDS: ATORVASTATIN 40 MG TAB PO SCH (19:56)
[2019-11-13] MEDS ORDERED: EPOETIN ALFA 10,000 UNIT/ML VIAL SQ SCH (20:00)
[2019-11-14] MEDS: HYDROCODONE/APAP 7.5/325 MG TAB PO PRN ×2 (02:58→10:27)
[2019-11-14 06:30] LABS: Absolute Lymphocytes (CBC) 1.3 K/uL (0.7-4.9); Basophils % 0.5 % (0-1.3); Hematocrit 21.5 % (39.6-49.0); Lymphocytes % 18.7 % (15.3-44.8); RBC Red Blood Cell Count 2.35 M/uL (4.33-5.43)
[2019-11-14 06:36] LABS: Magnesium 2.2 mg/dL (1.8-2.4); Potassium 4.8 mmol/L (3.5-5.1); Prealbumin 21.8 mg/dL (20-40)
[2019-11-14] MEDS ORDERED: EPOETIN ALFA 10,000 UNIT/ML VIAL SQ SCH (07:30)
[2019-11-14] MEDS: INSULIN -REGULAR HUMAN 50 UNIT/0.5 ML ML SQ SCH ×4 (07:30→21:00)
[2019-11-14] MEDS: PANTOPRAZOLE 40MG TABLET PO SCH ×2 (07:38→17:09)
[2019-11-14] MEDS: APIXABAN 2.5 MG TABLET PO SCH ×2 (09:03→21:26)
[2019-11-14] MEDS: POLYETHYL GLY 3350 17 GM/DOSE PO SCH (09:04)
[2019-11-14] MEDS: INSULIN GLARGINE 100 UNITS/ML SQ SCH ×2 (09:04→21:26)
[2019-11-14] MEDS: SEVELAMER CARBONATE 800 MG TABLET PO SCH ×3 (09:05→17:09)
[2019-11-14] MEDS: JUVEN PACKET PO SCH ×2 (09:05→20:00)
[2019-11-14] MEDS: VITAMIN D 5,000 UNIT CAP PO SCH (09:06)
[2019-11-14] MEDS: GABAPENTIN 300 MG CAP PO SCH ×2 (09:06→21:25)
[2019-11-14] MEDS: FE SULF/FA/VIT B COMP & C TAB PO SCH (09:06)
[2019-11-14] MEDS: DULOXETINE 20 MG CAP PO SCH (09:07)
[2019-11-14] MEDS: DOCUSATE NA 100 MG CAP PO SCH ×2 (09:07→21:26)
[2019-11-14] MEDS: ASPIRIN 81 MG CHEWABLE TABLET PO SCH (09:07)
[2019-11-14] MEDS: DOCOSAHEXANOIC AC/EPA 1000 MG PO SCH ×2 (09:07→21:25)
[2019-11-14] MEDS: FERROUS SULFATE 325 MG TAB PO SCH (09:07)
--- NOTE | 2019-11-14 09:44 | P.RH.PN ---
Estimated Length of Stay: 14 Expected Discharge Date: 11/19/19 Discharge Disposition Plan: Home Family Support: Yes Residential Goal: Mobility, Transfers, Self Care Vital Signs: Last Vital Signs Temp 96.4 F L 11/14/19 08:00 Pulse 85 11/14/19 08:00 Resp 16 11/14/19 08:00 BP 120/51 L 11/14/19 08:00 Pulse Ox 97 11/14/19 08:00 Laboratory: Laboratory Last Values WBC 6.7 K/uL (4.3-10.9) D 11/14/19 05:56 RBC 2.35 M/uL (4.33-5.43) L 11/14/19 05:56 Hgb 7.3 g/dL (13.6-17.9) L* 11/14/19 05:56 Hct 21.5 % (39.6-49.0) L 11/14/19 05:56 MCV 91.5 fL (80-100) 11/14/19 05:56 MCH 30.9 pg (27.0-35.0) 11/14/19 05:56 MCHC 33.8 g/dL (32.0-36.0) 11/14/19 05:56 RDW 16.1 % (12.1-15.2) H 11/14/19 05:56 Plt Count 293 K/uL (152-406) 11/14/19 05:56 MPV 9.0 fL (7.6-11.3) 11/14/19 05:56 Neutrophils % 67.1 % (41.7-73.7) 11/14/19 05:56 Lymphocytes % 18.7 % (15.3-44.8) 11/14/19 05:56 Monocytes % 10.5 % (3.3-12.3) 11/14/19 05:56 Eosinophils % 3.2 % (0-4.4) 11/14/19 05:56 Basophils % 0.5 % (0-1.3) 11/14/19 05:56 Absolute Neutrophils 4.5 K/uL (1.8-8.0) 11/14/19 05:56 Absolute Lymphocytes 1.3 K/uL (0.7-4.9) 11/14/19 05:56 Absolute Monocytes 0.7 K/uL (0.1-1.3) 11/14/19 05:56 Absolute Eosinophils 0.2 K/uL (0-0.5) 11/14/19 05:56 Absolute Basophils 0.0 K/uL (0-0.5) 11/14/19 05:56 Anisocytosis 1+ 11/07/19 05:40 Ovalocytes 1+ 11/07/19 05:40 Morphology Comment Noted (NOT SEEN) 11/07/19 05:40 Sodium 135 mmol/L (136-145) L 11/14/19 05:56 Potassium 4.8 mmol/L (3.5-5.1) 11/14/19 05:56 Chloride 108 mmol/L (98-107) H 11/14/19 05:56 Carbon Dioxide 26 mmol/L (21-32) 11/14/19 05:56 BUN 26 mg/dL (7-18) H 11/14/19 05:56 Creatinine 4.98 mg/dL (0.55-1.3) H D 11/14/19 05:56 Estimated GFR 12 mL/min (=/>90) L 11/14/19 05:56 Glucose 118 mg/dL (74-106) H 11/14/19 05:56 POC Glucose 111 mg/dl (65-120) 11/14/19 07:17 Calcium 9.3 mg/dL (8.5-10.1) 11/14/19 05:56 Phosphorus 3.9 mg/dL (2.5-4.9) 11/08/19 06:39 Magnesium 2.2 mg/dL (1.8-2.4) 11/14/19 05:56 Total Bilirubin 0.4 mg/dL (0.2-1.0) 11/08/19 06:39 AST 18 U/L (15-37) 11/08/19 06:39 ALT 30 U/L (12-78) 11/08/19 06:39 Alkaline Phosphatase 166 U/L (45-117) H 11/08/19 06:39 Troponin I 0.10 ng/mL (0.0-0.045) H 11/09/19 01:20 Serum Total Protein 6.2 g/dL (6.4-8.2) L 11/08/19 06:39 Albumin 3.0 g/dL (3.4-5.0) L 11/14/19 05:56 Globulin 3.4 g/dL (2.3-3.5) 11/08/19 06:39 Albumin/Globulin Ratio 0.8 (1.1-1.8) L 11/08/19 06:39 Prealbumin 21.8 mg/dL (20-40) 11/14/19 05:56 Weight: 278 lb 12.8 oz Within Defined Parameters: No Wound Present: Yes Closed Surgical Incision Present: Yes Negative Pressure Wound Therapy Present: No Physician Update: His Hgb has dropped to 7.3. He may get a unit of PRBC. He did not sleep well last PM. He is a contact guard with the rolling walker arleth 150' . He is at contact guard with ADLs. Medical Issues: Patient is always continent with bladder and bowel Pain Issues: Patient is taking [place] 7.5/325mg Q6h PO PRN for pain. Functional Improvement: pt presents with mild strength deficits in the L LE related to pain from graft harvest site. pt demonstrates poor balance and stability during ambulation and functional transfers. pt struggles to perform bed mobility tasks without use of UEs and requires training to enhance technique and adhere to sternal precautions. pt experiences poor tolerance to functional activity due to pain, weakness, fatigue, and SOB. Skilled PT services are necessary to address the above mentioned impairments and functional limitations. Speech Therapy Update: Patient's cognitive-linguistic skills fall WFL however patient and family have noticed slowness of thought/response, STM deficits, and word-finding difficulties since recent heart attack and surgery. Patient requires repeated, simplified instruction and extra time to respond. Summary: Patient's care plan and fpc goals have been reviewed and revised as necessary. Please see the Rehabilitation Signature page for all necessary signatures.
--- NOTE | 2019-11-14 10:13 | FAST ---
SHIFT START DATE/TIME: 11/14/2019 07:00 (CDT) SHIFT END DATE/TIME: 11/14/2019 19:00 (CDT) NAME MARYAM HOPPER DATE OF : 1950 DATE OF ADMISSION: 11/06/2019 22:56 (PUBLISHING DIRECTOR) PHONE: AGE: 69 N# [id number] GENDER: Male ENCOUNTER PHYSICIAN: Dr. James Jules M.D. ADMISSION DIAGNOSIS: - Cardiac 09 - Cardiac Disorders (09) NSTEMI. EATING: EATING - STEP 1: Does the patient complete the activity by him/herself with no assistance (physical, verbal/nonverbal cueing, setup/clean-up)? No. EATING - STEP 2: Does the patient need only setup/clean-up assistance from one helper? No. EATING - STEP 3: Does the patient need only verbal/nonverbal cueing or touching/steadying/contact guard assistance fro m one helper? Yes. 1. [id number] ADMISSION PERFORMANCE: Supervision or touching assistance CODE: 04 ORAL HYGIENE: ORAL HYGIENE - STEP 1: Does the patient complete the activity by him/herself with no assistance (physical, verbal/nonverbal cueing, setup/clean-up)? No. ORAL HYGIENE - STEP 2: Does the patient need only setup/clean-up assistance from one helper? No. ORAL HYGIENE - STEP 3: Does the patient need only verbal/nonverbal cueing or touching/steadying/contact guard assistance fro m one helper? No. ORAL HYGIENE - STEP 4: Does the patient need physical assistance - for example lifting or trunk support from one helper - wi th the helper providing less than half of the effort? Yes. 1. [id number] ADMISSION PERFORMANCE: Partial/moderate assistance CODE: 03 TOILETING HYGIENE: TOILETING HYGIENE - STEP 1: Does the patient complete the activity by him/herself with no assistance (physical, verbal/nonverbal cueing, setup/clean-up)? No. TOILETING HYGIENE - STEP 2: Does the patient need only setup/clean-up assistance from one helper? No. TOILETING HYGIENE - STEP 3: Does the patient need only verbal/nonverbal cueing or touching/steadying/contact guard assistance fro m one helper? Yes. 1. [id number] ADMISSION PERFORMANCE: Supervision or touching assistance CODE: 04 BATHING: Not assessed/no information CODE: - DRESSING - UPPER BODY: Not assessed/no information CODE: - DRESSING - LOWER BODY: Not assessed/no information CODE: - PUTTING ON/TAKING OFF FOOTWEAR: Not assessed/no information CODE: - ROLL LEFT AND RIGHT: ROLL LEFT AND RIGHT - STEP 1: Does the patient complete the activity by him/herself with no assistance (physical, verbal/nonverbal cueing, setup/clean-up)? No. ROLL LEFT AND RIGHT - STEP 2: Does the patient need only setup/clean-up assistance from one helper? No. ROLL LEFT AND RIGHT - STEP 3: Does the patient need only verbal/nonverbal cueing or touching/steadying/contact guard assistance fro m one helper? Yes. 1. [id number] ADMISSION PERFORMANCE: Supervision or touching assistance CODE: 04 SIT TO LYING: SIT TO LYING - STEP 1: Does the patient complete the activity by him/herself with no assistance (physical, verbal/nonverbal cueing, setup/clean-up)? No. SIT TO LYING - STEP 2: Does the patient need only setup/clean-up assistance from one helper? No. SIT TO LYING - STEP 3: Does the patient need only verbal/nonverbal cueing or touching/steadying/contact guard assistance fro m one helper? Yes. 1. [id number] ADMISSION PERFORMANCE: Supervision or touching assistance CODE: 04 LYING TO SITTING: LYING TO SITTING ON SIDE OF BED - STEP 1: Does the patient complete the activity by him/herself with no assistance (physical, verbal/nonverbal cueing, setup/clean-up)? No. LYING TO SITTING ON SIDE OF BED - STEP 2: Does the patient need only setup/clean-up assistance from one helper? No. LYING TO SITTING ON SIDE OF BED - STEP 3: Does the patient need only verbal/nonverbal cueing or touching/steadying/contact guard assistance fro m one helper? Yes. 1. [id number] ADMISSION PERFORMANCE: Supervision or touching assistance CODE: 04 SIT TO STAND: SIT TO STAND - STEP 1: Does the patient complete the activity by him/herself with no assistance (physical, verbal/nonverbal cueing, setup/clean-up)? No. SIT TO STAND - STEP 2: Does the patient need only setup/clean-up assistance from one helper? No. SIT TO STAND - STEP 3: Does the patient need only verbal/nonverbal cueing or touching/steadying/contact guard assistance fro m one helper? Yes. 1. [id number] ADMISSION PERFORMANCE: Supervision or touching assistance CODE: 04 TRANSFERS: BED, CHAIR: CHAIR/[id number] TRANSFER - STEP 1: Does the patient complete the activity by him/herself with no assistance (physical, verbal/nonverbal cueing, setup/clean-up)? No. CHAIR/[id number] TRANSFER - STEP 2: Does the patient need only setup/clean-up assistance from one helper? No. CHAIR/[id number] TRANSFER - STEP 3: Does the patient need only verbal/nonverbal cueing or touching/steadying/contact guard assistance fro m one helper? No. CHAIR/[id number] TRANSFER - STEP 4: Does the patient need physical assistance - for example lifting or trunk support from one helper - wi th the helper providing less than half of the effort? Yes. 1. [id number] ADMISSION PERFORMANCE: Partial/moderate assistance CODE: 03 TRANSFER TOILET: TOILET TRANSFER - STEP 1: Does the patient complete the activity by him/herself with no assistance (physical, verbal/nonverbal cueing, setup/clean-up)? No. TOILET TRANSFER - STEP 2: Does the patient need only setup/clean-up assistance from one helper? No. TOILET TRANSFER - STEP 3: Does the patient need only verbal/nonverbal cueing or touching/steadying/contact guard assistance fro m one helper? No. TOILET TRANSFER - STEP 4: Does the patient need physical assistance - for example lifting or trunk support from one helper - wi th the helper providing less than half of the effort? Yes. 1. [id number] ADMISSION PERFORMANCE: Partial/moderate assistance CODE: 03 TRANSFERS: CAR: Not assessed/no information CODE: - WALK 10 FEET: Not assessed/no information CODE: - 1 STEP (CURB): Not assessed/no information CODE: - PICKING UP OBJECT: Not assessed/no information CODE: - DOES THE PATIENT USE A WHEELCHAIR/SCOOTER? CODE: EXPR WHEEL 50 FEET WITH TWO TURNS: Not assessed/no information CODE: - INDICATE THE TYPE OF WHEELCHAIR/SCOOTER USED: CODE: EXPR WHEEL 150 FEET: Not assessed/no information CODE: - INDICATE THE TYPE OF WHEELCHAIR/SCOOTER USED: CODE: EXPR BLADDER AND BOWEL: H350. BLADDER CONTINENCE (3-DAY ASSESSMENT PERIOD): Stress incontinence only CODE: 1 H400. BOWEL CONTINENCE (3-DAY ASSESSMENT PERIOD): Always continent CODE: 0 SIGNATURE PANEL: The following modified sections: 1. [id number] Admission Performance, 1. [id number] Admission Performance, 1. [id number] Admission Performance, 1. NY9109G Admission Performance, 1. IY7921M Admission Performance, 1. VD9410S Admission Performance, 1. DB3599A Admission Performance, 1. [id number] Admission Performance , 1. PC6430M Admission Performance, 1. GI4410U Admission Performance, Code, H350. Bladder Continence (3-day assessment period), H400. Bowel Continence (3-day assessment period) were [electronically] sig carla by Jani Benites on MonNov 14 2019 10:12:51 GMT-0500 (Central Daylight Time)
[2019-11-14] MEDS: TRAZODONE 50 MG TABLET PO SCH (21:25)
[2019-11-14] MEDS: ATORVASTATIN 40 MG TAB PO SCH (21:25)
[2019-11-14] MEDS: FEXOFENADINE 180 MG TAB PO SCH (21:26)
[2019-11-14] MEDS: MONTELUKAST 10 MG TAB PO SCH (21:26)
[2019-11-14] MEDS: MELATONIN 3 MG TABLET PO SCH (21:26)
--- NOTE | 2019-11-15 02:01 | FAST ---
ENCOUNTER DATE AND TIME: 11/14/2019 08:00 (CDT) NAME MARYAM HOPPER DATE OF : 1950 DATE OF ADMISSION: 11/06/2019 22:56 (CALL CENTER ANALYST) PHONE: AGE: 69 N# [id number] GENDER: Male ENCOUNTER PHYSICIAN: Dr. James Jules M.D. ADMISSION DIAGNOSIS: - Cardiac 09 - Cardiac Disorders (09) NSTEMI. ROLL LEFT AND RIGHT: ROLL LEFT AND RIGHT - STEP 1: Does the patient complete the activity by him/herself with no assistance (physical, verbal/nonverbal cueing, setup/clean-up)? Yes. 1. [id number] ADMISSION PERFORMANCE: Independent CODE: 06 SIT TO LYING: Not attempted due to medical condition or safety concerns CODE: 88 LYING TO SITTING: LYING TO SITTING ON SIDE OF BED - STEP 1: Does the patient complete the activity by him/herself with no assistance (physical, verbal/nonverbal cueing, setup/clean-up)? No. LYING TO SITTING ON SIDE OF BED - STEP 2: Does the patient need only setup/clean-up assistance from one helper? No. LYING TO SITTING ON SIDE OF BED - STEP 3: Does the patient need only verbal/nonverbal cueing or touching/steadying/contact guard assistance fro m one helper? Yes. 1. [id number] ADMISSION PERFORMANCE: Supervision or touching assistance CODE: 04 SIT TO STAND: SIT TO STAND - STEP 1: Does the patient complete the activity by him/herself with no assistance (physical, verbal/nonverbal cueing, setup/clean-up)? No. SIT TO STAND - STEP 2: Does the patient need only setup/clean-up assistance from one helper? Yes. 1. [id number] ADMISSION PERFORMANCE: Setup or clean-up assistance CODE: 05 TRANSFERS: BED, CHAIR: CHAIR/[id number] TRANSFER - STEP 1: Does the patient complete the activity by him/herself with no assistance (physical, verbal/nonverbal cueing, setup/clean-up)? No. CHAIR/SBY-UT-NYHMB TRANSFER - STEP 2: Does the patient need only setup/clean-up assistance from one helper? Yes. 1. [id number] ADMISSION PERFORMANCE: Setup or clean-up assistance CODE: 05 TRANSFER TOILET: TOILET TRANSFER - STEP 1: Does the patient complete the activity by him/herself with no assistance (physical, verbal/nonverbal cueing, setup/clean-up)? No. TOILET TRANSFER - STEP 2: Does the patient need only setup/clean-up assistance from one helper? Yes. 1. [id number] ADMISSION PERFORMANCE: Setup or clean-up assistance CODE: 05 TRANSFERS: CAR: Not attempted due to medical condition or safety concerns CODE: 88 WALK 10 FEET: WALK 10 FEET - STEP 1: Does the patient complete the activity by him/herself with no assistance (physical, verbal/nonverbal cueing, setup/clean-up)? No. WALK 10 FEET - STEP 2: Does the patient need only setup/clean-up assistance from one helper? Yes. 1. [id number] ADMISSION PERFORMANCE: Setup or clean-up assistance CODE: 05 WALK 50 FEET: Not attempted due to medical condition or safety concerns CODE: 88 WALK 150 FEET: Not attempted due to medical condition or safety concerns CODE: 88 WALK 10 FEET UNEVEN: Not attempted due to medical condition or safety concerns CODE: 88 1 STEP (CURB): Not attempted due to medical condition or safety concerns CODE: 88 PICKING UP OBJECT: Not attempted due to medical condition or safety concerns CODE: 88 DOES THE PATIENT USE A WHEELCHAIR/SCOOTER? Q1. DOES THE PATIENT USE A WHEELCHAIR/SCOOTER?: No CODE: 0 INDICATE THE TYPE OF WHEELCHAIR/SCOOTER USED: CODE: EXPR INDICATE THE TYPE OF WHEELCHAIR/SCOOTER USED: CODE: EXPR BLADDER AND BOWEL: CODE: EXPR CODE: EXPR SIGNATURE PANEL: The following modified sections: 1. [id number] Admission Performance, 1. LC2342Q Admission Performance, 1. WU6204T Admission Performance, 1. YP0588I Admission Performance, 1. GU7148B Admission Performance, 1. ML4418V Admission Performance, 1. HP2133D Admission Performance, Q1. Does the patient use a wheel chair/scooter? were [electronically] signed by Sharona Broderick PTA on MonNov 14 2019 16:00:19 GMT -0500 (Central Daylight Time)
[2019-11-15] MEDS: INSULIN -REGULAR HUMAN 50 UNIT/0.5 ML ML SQ SCH ×5 (07:30→22:22)
[2019-11-15] MEDS: JUVEN PACKET PO SCH ×2 (08:00→22:32)
[2019-11-15] MEDS: POLYETHYL GLY 3350 17 GM/DOSE PO SCH (09:06)
[2019-11-15] MEDS: DOCOSAHEXANOIC AC/EPA 1000 MG PO SCH ×2 (09:07→22:23)
[2019-11-15] MEDS: FE SULF/FA/VIT B COMP & C TAB PO SCH (09:08)
[2019-11-15] MEDS: DULOXETINE 20 MG CAP PO SCH (09:08)
[2019-11-15] MEDS: SEVELAMER CARBONATE 800 MG TABLET PO SCH ×3 (09:09→17:00)
[2019-11-15] MEDS: PANTOPRAZOLE 40MG TABLET PO SCH ×2 (09:09→16:30)
[2019-11-15] MEDS: FERROUS SULFATE 325 MG TAB PO SCH (09:09)
[2019-11-15] MEDS: GABAPENTIN 300 MG CAP PO SCH ×2 (09:10→22:23)
[2019-11-15] MEDS: DOCUSATE NA 100 MG CAP PO SCH ×2 (09:10→22:25)
[2019-11-15] MEDS: APIXABAN 2.5 MG TABLET PO SCH ×2 (09:10→22:25)
[2019-11-15] MEDS: ASPIRIN 81 MG CHEWABLE TABLET PO SCH (09:10)
[2019-11-15] MEDS: VITAMIN D 5,000 UNIT CAP PO SCH (09:10)
[2019-11-15] MEDS: HYDROCODONE/APAP 7.5/325 MG TAB PO PRN ×2 (09:12→23:02)
[2019-11-15] MEDS: INSULIN GLARGINE 100 UNITS/ML SQ SCH ×2 (09:13→22:29)
--- NOTE | 2019-11-15 13:46 | FAST ---
SHIFT START DATE/TIME: 11/15/2019 07:00 (CDT) SHIFT END DATE/TIME: 11/15/2019 19:00 (CDT) NAME MARYAM HOPPER DATE OF : 1950 DATE OF ADMISSION: 11/06/2019 22:56 (PONDMAN) PHONE: AGE: 69 N# [id number] GENDER: Male ENCOUNTER PHYSICIAN: Dr. James Jules M.D. ADMISSION DIAGNOSIS: - Cardiac 09 - Cardiac Disorders (09) NSTEMI. EATING: EATING - STEP 1: Does the patient complete the activity by him/herself with no assistance (physical, verbal/nonverbal cueing, setup/clean-up)? No. EATING - STEP 2: Does the patient need only setup/clean-up assistance from one helper? No. EATING - STEP 3: Does the patient need only verbal/nonverbal cueing or touching/steadying/contact guard assistance fro m one helper? Yes. 1. [id number] ADMISSION PERFORMANCE: Supervision or touching assistance CODE: 04 ORAL HYGIENE: ORAL HYGIENE - STEP 1: Does the patient complete the activity by him/herself with no assistance (physical, verbal/nonverbal cueing, setup/clean-up)? No. ORAL HYGIENE - STEP 2: Does the patient need only setup/clean-up assistance from one helper? No. ORAL HYGIENE - STEP 3: Does the patient need only verbal/nonverbal cueing or touching/steadying/contact guard assistance fro m one helper? Yes. 1. [id number] ADMISSION PERFORMANCE: Supervision or touching assistance CODE: 04 TOILETING HYGIENE: TOILETING HYGIENE - STEP 1: Does the patient complete the activity by him/herself with no assistance (physical, verbal/nonverbal cueing, setup/clean-up)? No. TOILETING HYGIENE - STEP 2: Does the patient need only setup/clean-up assistance from one helper? No. TOILETING HYGIENE - STEP 3: Does the patient need only verbal/nonverbal cueing or touching/steadying/contact guard assistance fro m one helper? Yes. 1. [id number] ADMISSION PERFORMANCE: Supervision or touching assistance CODE: 04 BATHING: Not assessed/no information CODE: - DRESSING - UPPER BODY: DRESSING - UPPER BODY - STEP 1: Does the patient complete the activity by him/herself with no assistance (physical, verbal/nonverbal cueing, setup/clean-up)? No. DRESSING - UPPER BODY - STEP 2: Does the patient need only setup/clean-up assistance from one helper? No. DRESSING - UPPER BODY - STEP 3: Does the patient need only verbal/nonverbal cueing or touching/steadying/contact guard assistance fro m one helper? Yes. 1. [id number] ADMISSION PERFORMANCE: Supervision or touching assistance CODE: 04 DRESSING - LOWER BODY: DRESSING - LOWER BODY - STEP 1: Does the patient complete the activity by him/herself with no assistance (physical, verbal/nonverbal cueing, setup/clean-up)? No. DRESSING - LOWER BODY - STEP 2: Does the patient need only setup/clean-up assistance from one helper? No. DRESSING - LOWER BODY - STEP 3: Does the patient need only verbal/nonverbal cueing or touching/steadying/contact guard assistance fro m one helper? Yes. 1. [id number] ADMISSION PERFORMANCE: Supervision or touching assistance CODE: 04 PUTTING ON/TAKING OFF FOOTWEAR: FOOTWEAR - STEP 1: Does the patient complete the activity by him/herself with no assistance (physical, verbal/nonverbal cueing, setup/clean-up)? No. FOOTWEAR - STEP 2: Does the patient need only setup/clean-up assistance from one helper? No. FOOTWEAR - STEP 3: Does the patient need only verbal/nonverbal cueing or touching/steadying/contact guard assistance fro m one helper? Yes. 1. [id number] ADMISSION PERFORMANCE: Supervision or touching assistance CODE: 04 DOES THE PATIENT USE A WHEELCHAIR/SCOOTER? CODE: EXPR INDICATE THE TYPE OF WHEELCHAIR/SCOOTER USED: CODE: EXPR INDICATE THE TYPE OF WHEELCHAIR/SCOOTER USED: CODE: EXPR BLADDER AND BOWEL: H350. BLADDER CONTINENCE (3-DAY ASSESSMENT PERIOD): No urine output (e.g., renal failure) CODE: 5 H400. BOWEL CONTINENCE (3-DAY ASSESSMENT PERIOD): Always continent CODE: 0 SIGNATURE PANEL: The following modified sections: 1. [id number] Admission Performance, 1. [id number] Admission Performance, 1. [id number] Admission Performance, 1. [id number] Admission Performance, 1. NT2285L Admission Performance, 1. RP6083l Admission Performance, 1. ZE5045b Admission Performance, 1. ZU0264u Admission Performance , 1. WW1753s Admission Performance, H350. Bladder Continence (3-day assessment period), H400. Bowel C ontinence (3-day assessment period) were [electronically] signed by Bri PadillaNEdmund on MonNov 022019 13:45:16 GMT-0500 (Central Daylight Time)
[2019-11-15] MEDS: MIDODRINE HCL 5 MG TABLET PO SCH (16:01)
[2019-11-15] MEDS: LIDOCAINE/PRILOCAINE CREAM TOP SCH (16:02)
[2019-11-15] MEDS ORDERED: NA CHLORIDE 0.9% 250 ML ONE (16:47)
--- NOTE | 2019-11-15 18:48 | P.PN ---
Date of Service: 11/15/19 Vital Signs Temp Pulse Resp BP Pulse Ox 98.3 F 81 16 119/45 L 98 11/15/19 07:42 11/15/19 07:42 11/15/19 10:12 11/15/19 07:42 11/15/19 10:12 Medications Hydrocodone Bitart/Acetaminophen ([place] 7.5/325 Mg) 1 tab PO Q4H PRN PRN Reason: Pain scale 8-10 (Severe) Stop: 12/08/19 10:42 Last Admin: 11/15/19 09:12 Dose: 1 tab Albuterol Sulfate (Proventil 0.083% Neb Soln) 2.5 mg NEB [id number] PRN PRN Reason: SHORTNESS OF BREATH Stop: 12/06/19 23:24 Apixaban (Eliquis) 2.5 mg PO BID JOHNATHON Stop: 12/07/19 08:01 Last Admin: 11/15/19 09:10 Dose: 2.5 mg Aspirin (Aspirin Chewable) 81 mg PO DAILY JOHNATHON Stop: 12/07/19 08:01 Last Admin: 11/15/19 09:10 Dose: 81 mg Atorvastatin Calcium (Lipitor) 40 mg PO BEDTIME JOHNATHON Stop: 12/07/19 21:01 Last Admin: 11/14/19 21:25 Dose: 40 mg Cholecalciferol (Vitamin D 5,000 Iu Cap) 10,000 unit PO DAILY JOHNATHON Stop: 12/07/19 08:01 Last Admin: 11/15/19 09:10 Dose: 10,000 unit Dextrose (Dextrose 50% Syringe/Vial) 12.5 gm IV PRN PRN; Protocol PRN Reason: HYPOGLYCEMIA Stop: 12/07/19 02:18 Docusate Sodium (Colace Cap) 100 mg PO BID JOHNATHON Stop: 12/07/19 08:01 Last Admin: 11/15/19 09:10 Dose: 100 mg Duloxetine HCl (Cymbalta Delayed Release Pellets) 20 mg PO DAILY JOHNATHON Stop: 12/12/19 08:01 Last Admin: 11/15/19 09:08 Dose: 20 mg Ferrous Sulfate (Feosol) 325 mg PO DAILY JOHNATHON Stop: 12/07/19 08:01 Last Admin: 11/15/19 09:09 Dose: 325 mg Fexofenadine HCl (Cami) 180 mg PO BEDTIME JOHNATHON Stop: 12/07/19 21:01 Last Admin: 11/14/19 21:26 Dose: 180 mg Fish Oil (Fish Oil 1,000 Mg Cap) 2,000 mg PO BID JOHNATHON Stop: 12/07/19 08:01 Last Admin: 11/15/19 09:07 Dose: 2,000 mg Gabapentin (Neurontin) 600 mg PO BID JOHNATHON Stop: 12/11/19 08:01 Last Admin: 11/15/19 09:10 Dose: 600 mg Glucagon (Glucagen) 1 mg IM 1X PRN; Protocol PRN Reason: HYPOGLYCEMIA Stop: 12/07/19 02:18 Heparin Sodium (Porcine) (Heparin 10,000 Units/10 Ml Vial) 6,000 unit IV EVERY HD PRN PRN Reason: FLUSH AFTER EACH USE Stop: 12/07/19 17:00 Heparin Sodium (Porcine) (Heparin 1,000 Units/Ml) 2,000 unit IV EVERY HD JOHNATHON Stop: 11/18/19 11:01 Albumin Human (Albumin 25%) 50 mls @ 100 mls/hr IV EVERY HD JOHNATHON Stop: 12/07/19 17:01 Insulin Glargine (Lantus) 10 units SQ BEDTIME JOHNATHON Stop: 12/07/19 21:01 Last Admin: 11/14/19 21:26 Dose: 10 units Insulin Glargine (Lantus) 20 units SQ DAILY WITH BREAKFAST JOHNATHON Stop: 12/07/19 08:01 Last Admin: 11/15/19 09:13 Dose: 20 units Insulin Human Regular (Novolin -R) 0 unit SQ ACHS JOHNATHON; Protocol Stop: 12/07/19 07:31 Last Admin: 11/15/19 16:30 Dose: Not Given L-Arginine/L-Glutamine/HMB (Beni) 1 pkt PO BID JOHNATHON Stop: 12/07/19 20:01 Last Admin: 11/15/19 08:00 Dose: Not Given Lidocaine/Prilocaine (Emla Cream) 1 appl TOP EVERY HD JOHNATHON Stop: 12/10/19 14:01 Last Admin: 11/15/19 16:02 Dose: 1 appl Lorazepam (Ativan) 0.5 mg PO Q12HP PRN PRN Reason: ANXIETY Stop: 12/08/19 21:38 Last Admin: 11/12/19 03:27 Dose: 0.5 mg Mannitol (Mannitol 12.5 Gm/50 Ml Vial) 12.5 gm IV EVERY HD PRN PRN Reason: FOR BP SUPPORT AT HD Stop: 12/07/19 17:00 Melatonin (Melatonin) 3 mg PO BEDTIME [facility] Stop: 12/14/19 21:01 Last Admin: 11/14/19 21:26 Dose: 3 mg Midodrine (Proamatine) 10 mg PO EVERY HD JOHNATHON Stop: 12/07/19 03:01 Last Admin: 11/15/19 16:01 Dose: 10 mg Montelukast Sodium (Singulair) 10 mg PO BEDTIME JOHNATHON Stop: 12/07/19 21:01 Last Admin: 11/14/19 21:26 Dose: 10 mg Multivitamins/Iron (Hemocyte Plus) 1 tab PO DAILY WITH BREAKFAST [facility] Stop: 12/07/19 08:01 Last Admin: 11/15/19 09:08 Dose: 1 tab Ondansetron HCl (Zofran) 4 mg PO Q4H PRN PRN Reason: NAUSEA / VOMITING Stop: 12/10/19 06:20 Last Admin: 11/10/19 06:28 Dose: 4 mg Pantoprazole Sodium (Protonix Tab) 40 mg PO BIDAC [facility]; Protocol Stop: 12/07/19 07:31 Last Admin: 11/15/19 16:30 Dose: Not Given Polyethylene Glycol (Glycolax) 17 gm PO DAILY [facility] Stop: 12/07/19 08:01 Last Admin: 11/15/19 09:06 Dose: 17 gm Sevelamer Carbonate (Renvela) 1,600 mg PO TIDWM [facility] Stop: 12/07/19 08:01 Last Admin: 11/15/19 17:00 Dose: Not Given Tramadol HCl (Ultram) 50 mg PO Q4H PRN PRN Reason: Pain scale 2-4 (Mild) Stop: 12/11/19 14:45 Last Admin: 11/11/19 18:55 Dose: 50 mg Trazodone HCl (Desyrel) 25 mg PO BEDTIME [facility] Stop: 12/12/19 21:01 Last Admin: 11/14/19 21:25 Dose: 25 mg Lab Results (last 24 hrs) 11/15/19 16:29: POC Glucose 144 H 11/15/19 12:09: POC Glucose 146 H 11/15/19 07:48: POC Glucose 113 11/14/19 20:20: POC Glucose 179 H 11/14/19 12:40: ABO/Rh A POSITIVE, Solid Phase Ab Screen Negative, Crossmatch See Detail Assessment/ Plan: Nephrology Feeling better with improving edema. CPS stable without CP or SOB. +LOREDO No acute events overnight. Vitals, medications, blood work and imaging reviewed in the chart. General: In no apparent distress, Oriented x3, Cooperative HEENT: Atraumatic Neck: Supple Respiratory: Clear to auscultation bilaterally Cardiovascular: Edema Gastrointestinal: Normal bowel sounds, Soft and benign Musculoskeletal: No clubbing, No contractures Integumentary: No rashes, No cyanosis, Skin lesion Neurological: Normal speech Laboratory Data (last 24 hrs) 11/07/19 05:40: Sodium 140, Potassium 3.8, BUN 24 H, Creatinine 4.82 H, Glucose 116 H, Magnesium 2.2 11/07/19 05:40: WBC 5.7, Hgb 7.8 L*, Hct 23.2 L, Plt Count 273 Conclusions/Impression: A/ ESRD on HD. HTN with CKD/ CHF. CHRIS on CPAP. Diastolic CHF, chronic. DM II with CKD. Anemia in CKD. LADONNA/ Secondary HyperPTH. Nephrolithiasis. CAD. P/ Continue current POC and Medications. HD TIW. Give PRBC with HD. Encourage nutrition. Low sodium diet. PT as tolerated. No NSAIDs. AM labs PRN. Daily weight.
[2019-11-15] MEDS: MELATONIN 3 MG TABLET PO SCH (22:24)
[2019-11-15] MEDS: TRAZODONE 50 MG TABLET PO SCH (22:24)
[2019-11-15] MEDS: ATORVASTATIN 40 MG TAB PO SCH (22:25)
[2019-11-15] MEDS: FEXOFENADINE 180 MG TAB PO SCH (22:25)
[2019-11-15] MEDS: MONTELUKAST 10 MG TAB PO SCH (22:26)
[2019-11-15 23:02] LABS: Hematocrit 27.9 % (39.6-49.0)
--- NOTE | 2019-11-16 02:26 | FAST ---
SHIFT START DATE/TIME: 11/15/2019 19:00 (CDT) SHIFT END DATE/TIME: 11/16/2019 07:00 (CDT) NAME MARYAM HOPPER DATE OF : 1950 DATE OF ADMISSION: 11/06/2019 22:56 (COMPLIANCE INTERN) PHONE: AGE: 69 N# [id number] GENDER: Male ENCOUNTER PHYSICIAN: Dr. James Jules M.D. ADMISSION DIAGNOSIS: - Cardiac 09 - Cardiac Disorders () NSTEMI. EATING: Not assessed/no information CODE: - ORAL HYGIENE: ORAL HYGIENE - STEP 1: Does the patient complete the activity by him/herself with no assistance (physical, verbal/nonverbal cueing, setup/clean-up)? No. ORAL HYGIENE - STEP 2: Does the patient need only setup/clean-up assistance from one helper? Yes. 1. [id number] ADMISSION PERFORMANCE: Setup or clean-up assistance CODE: 05 TOILETING HYGIENE: TOILETING HYGIENE - STEP 1: Does the patient complete the activity by him/herself with no assistance (physical, verbal/nonverbal cueing, setup/clean-up)? No. TOILETING HYGIENE - STEP 2: Does the patient need only setup/clean-up assistance from one helper? No. TOILETING HYGIENE - STEP 3: Does the patient need only verbal/nonverbal cueing or touching/steadying/contact guard assistance fro m one helper? Yes. 1. [id number] ADMISSION PERFORMANCE: Supervision or touching assistance CODE: 04 BATHING: Not assessed/no information CODE: - DRESSING - UPPER BODY: Not assessed/no information CODE: - DRESSING - LOWER BODY: Not assessed/no information CODE: - PUTTING ON/TAKING OFF FOOTWEAR: Not assessed/no information CODE: - ROLL LEFT AND RIGHT: Not assessed/no information CODE: - SIT TO LYING: SIT TO LYING - STEP 1: Does the patient complete the activity by him/herself with no assistance (physical, verbal/nonverbal cueing, setup/clean-up)? No. SIT TO LYING - STEP 2: Does the patient need only setup/clean-up assistance from one helper? No. SIT TO LYING - STEP 3: Does the patient need only verbal/nonverbal cueing or touching/steadying/contact guard assistance fro m one helper? Yes. 1. [id number] ADMISSION PERFORMANCE: Supervision or touching assistance CODE: 04 LYING TO SITTING: LYING TO SITTING ON SIDE OF BED - STEP 1: Does the patient complete the activity by him/herself with no assistance (physical, verbal/nonverbal cueing, setup/clean-up)? No. LYING TO SITTING ON SIDE OF BED - STEP 2: Does the patient need only setup/clean-up assistance from one helper? No. LYING TO SITTING ON SIDE OF BED - STEP 3: Does the patient need only verbal/nonverbal cueing or touching/steadying/contact guard assistance fro m one helper? Yes. 1. [id number] ADMISSION PERFORMANCE: Supervision or touching assistance CODE: 04 SIT TO STAND: SIT TO STAND - STEP 1: Does the patient complete the activity by him/herself with no assistance (physical, verbal/nonverbal cueing, setup/clean-up)? No. SIT TO STAND - STEP 2: Does the patient need only setup/clean-up assistance from one helper? No. SIT TO STAND - STEP 3: Does the patient need only verbal/nonverbal cueing or touching/steadying/contact guard assistance fro m one helper? Yes. 1. [id number] ADMISSION PERFORMANCE: Supervision or touching assistance CODE: 04 TRANSFERS: BED, CHAIR: CHAIR/[id number] TRANSFER - STEP 1: Does the patient complete the activity by him/herself with no assistance (physical, verbal/nonverbal cueing, setup/clean-up)? No. CHAIR/[id number] TRANSFER - STEP 2: Does the patient need only setup/clean-up assistance from one helper? No. CHAIR/[id number] TRANSFER - STEP 3: Does the patient need only verbal/nonverbal cueing or touching/steadying/contact guard assistance fro m one helper? Yes. 1. [id number] ADMISSION PERFORMANCE: Supervision or touching assistance CODE: 04 TRANSFER TOILET: TOILET TRANSFER - STEP 1: Does the patient complete the activity by him/herself with no assistance (physical, verbal/nonverbal cueing, setup/clean-up)? No. TOILET TRANSFER - STEP 2: Does the patient need only setup/clean-up assistance from one helper? No. TOILET TRANSFER - STEP 3: Does the patient need only verbal/nonverbal cueing or touching/steadying/contact guard assistance fro m one helper? Yes. 1. [id number] ADMISSION PERFORMANCE: Supervision or touching assistance CODE: 04 TRANSFERS: CAR: Not assessed/no information CODE: - WALK 10 FEET: Not assessed/no information CODE: - 1 STEP (CURB): Not assessed/no information CODE: - PICKING UP OBJECT: Not assessed/no information CODE: - DOES THE PATIENT USE A WHEELCHAIR/SCOOTER? CODE: EXPR WHEEL 50 FEET WITH TWO TURNS: Not assessed/no information CODE: - INDICATE THE TYPE OF WHEELCHAIR/SCOOTER USED: CODE: EXPR WHEEL 150 FEET: Not assessed/no information CODE: - INDICATE THE TYPE OF WHEELCHAIR/SCOOTER USED: CODE: EXPR BLADDER AND BOWEL: H350. BLADDER CONTINENCE (3-DAY ASSESSMENT PERIOD): Always continent (no documented incontinence) CODE: 0 H400. BOWEL CONTINENCE (3-DAY ASSESSMENT PERIOD): Always continent CODE: 0
[2019-11-16 05:24] VITALS: BMI 38.4
[2019-11-16] MEDS: INSULIN -REGULAR HUMAN 50 UNIT/0.5 ML ML SQ SCH ×4 (07:30→21:00)
[2019-11-16] MEDS: JUVEN PACKET PO SCH ×2 (08:00→20:00)
[2019-11-16] MEDS: INSULIN GLARGINE 100 UNITS/ML SQ SCH ×2 (08:00→21:18)
[2019-11-16] MEDS: VITAMIN D 5,000 UNIT CAP PO SCH (09:11)
[2019-11-16] MEDS: GABAPENTIN 300 MG CAP PO SCH ×2 (09:11→21:17)
[2019-11-16] MEDS: POLYETHYL GLY 3350 17 GM/DOSE PO SCH (09:11)
[2019-11-16] MEDS: PANTOPRAZOLE 40MG TABLET PO SCH ×2 (09:12→16:17)
[2019-11-16] MEDS: DOCUSATE NA 100 MG CAP PO SCH ×2 (09:12→21:17)
[2019-11-16] MEDS: FE SULF/FA/VIT B COMP & C TAB PO SCH (09:12)
[2019-11-16] MEDS: ASPIRIN 81 MG CHEWABLE TABLET PO SCH (09:12)
[2019-11-16] MEDS: DULOXETINE 20 MG CAP PO SCH (09:12)
[2019-11-16] MEDS: APIXABAN 2.5 MG TABLET PO SCH ×2 (09:12→21:17)
[2019-11-16] MEDS: FERROUS SULFATE 325 MG TAB PO SCH (09:12)
[2019-11-16] MEDS: DOCOSAHEXANOIC AC/EPA 1000 MG PO SCH ×2 (09:13→21:16)
[2019-11-16] MEDS: HYDROCODONE/APAP 7.5/325 MG TAB PO PRN (09:15)
[2019-11-16] MEDS: SEVELAMER CARBONATE 800 MG TABLET PO SCH ×3 (09:34→16:16)
[2019-11-16] MEDS: FEXOFENADINE 180 MG TAB PO SCH (21:17)
[2019-11-16] MEDS: ATORVASTATIN 40 MG TAB PO SCH (21:17)
[2019-11-16] MEDS: MONTELUKAST 10 MG TAB PO SCH (21:17)
[2019-11-16] MEDS: TRAZODONE 50 MG TABLET PO SCH (23:50)
[2019-11-16] MEDS: MELATONIN 3 MG TABLET PO SCH (23:50)
[2019-11-17] MEDS: INSULIN -REGULAR HUMAN 50 UNIT/0.5 ML ML SQ SCH ×4 (07:30→21:00)
[2019-11-17] MEDS: PANTOPRAZOLE 40MG TABLET PO SCH ×2 (07:57→16:58)
[2019-11-17] MEDS: INSULIN GLARGINE 100 UNITS/ML SQ SCH ×2 (09:41→21:05)
[2019-11-17] MEDS: POLYETHYL GLY 3350 17 GM/DOSE PO SCH (09:42)
[2019-11-17] MEDS: SEVELAMER CARBONATE 800 MG TABLET PO SCH ×5 (09:43→16:58)
[2019-11-17] MEDS: JUVEN PACKET PO SCH ×2 (09:43→20:00)
[2019-11-17] MEDS: FERROUS SULFATE 325 MG TAB PO SCH (09:44)
[2019-11-17] MEDS: DULOXETINE 20 MG CAP PO SCH (09:44)
[2019-11-17] MEDS: VITAMIN D 5,000 UNIT CAP PO SCH (09:44)
[2019-11-17] MEDS: DOCUSATE NA 100 MG CAP PO SCH ×2 (09:44→21:04)
[2019-11-17] MEDS: GABAPENTIN 300 MG CAP PO SCH ×2 (09:44→21:05)
[2019-11-17] MEDS: ASPIRIN 81 MG CHEWABLE TABLET PO SCH (09:45)
[2019-11-17] MEDS: APIXABAN 2.5 MG TABLET PO SCH ×2 (09:45→21:04)
[2019-11-17] MEDS: DOCOSAHEXANOIC AC/EPA 1000 MG PO SCH ×2 (09:45→21:04)
[2019-11-17] MEDS: FE SULF/FA/VIT B COMP & C TAB PO SCH (09:46)
[2019-11-17] MEDS: MELATONIN 3 MG TABLET PO SCH (21:00)
[2019-11-17] MEDS: TRAZODONE 50 MG TABLET PO SCH (21:00)
[2019-11-17] MEDS: FEXOFENADINE 180 MG TAB PO SCH (21:05)
[2019-11-17] MEDS: ATORVASTATIN 40 MG TAB PO SCH (21:05)
[2019-11-17] MEDS: MONTELUKAST 10 MG TAB PO SCH (21:05)
[2019-11-18] MEDS: INSULIN -REGULAR HUMAN 50 UNIT/0.5 ML ML SQ SCH ×4 (07:30→20:23)
[2019-11-18] MEDS: POLYETHYL GLY 3350 17 GM/DOSE PO SCH (08:05)
[2019-11-18] MEDS: JUVEN PACKET PO SCH ×2 (08:05→20:00)
[2019-11-18] MEDS: PANTOPRAZOLE 40MG TABLET PO SCH ×2 (08:05→18:37)
[2019-11-18] MEDS: SEVELAMER CARBONATE 800 MG TABLET PO SCH ×3 (08:06→18:36)
[2019-11-18] MEDS: GABAPENTIN 300 MG CAP PO SCH ×2 (08:06→20:13)
[2019-11-18] MEDS: DOCUSATE NA 100 MG CAP PO SCH ×2 (08:06→20:13)
[2019-11-18] MEDS: APIXABAN 2.5 MG TABLET PO SCH ×2 (08:06→20:13)
[2019-11-18] MEDS: ASPIRIN 81 MG CHEWABLE TABLET PO SCH (08:06)
[2019-11-18] MEDS: FERROUS SULFATE 325 MG TAB PO SCH (08:06)
[2019-11-18] MEDS: DULOXETINE 20 MG CAP PO SCH (08:06)
[2019-11-18] MEDS: VITAMIN D 5,000 UNIT CAP PO SCH (08:06)
[2019-11-18] MEDS: INSULIN GLARGINE 100 UNITS/ML SQ SCH ×2 (08:07→20:23)
[2019-11-18] MEDS: DOCOSAHEXANOIC AC/EPA 1000 MG PO SCH ×2 (08:08→20:12)
[2019-11-18] MEDS: FE SULF/FA/VIT B COMP & C TAB PO SCH (08:08)
[2019-11-18] MEDS: LIDOCAINE/PRILOCAINE CREAM TOP SCH (13:36)
[2019-11-18] MEDS: MIDODRINE HCL 5 MG TABLET PO SCH (13:37)
--- NOTE | 2019-11-18 14:59 | FAST ---
ENCOUNTER DATE AND TIME: 11/18/2019 08:00 (CDT) NAME MARYAM HOPPER DATE OF : 1950 DATE OF ADMISSION: 11/06/2019 22:56 (PHARMACOLOGY ASSOCIATE) PHONE: AGE: 69 N# [id number] GENDER: Male ENCOUNTER PHYSICIAN: Dr. James Jules M.D. ADMISSION DIAGNOSIS: - Cardiac 09 - Cardiac Disorders () NSTEMI. EATING: Not assessed/no information CODE: - ORAL HYGIENE: ORAL HYGIENE - STEP 1: Does the patient complete the activity by him/herself with no assistance (physical, verbal/nonverbal cueing, setup/clean-up)? Yes. 1. ADMISSION PERFORMANCE: Independent CODE: 06 TOILETING HYGIENE: Not assessed/no information CODE: - BATHING: SHOWER/BATHE SELF - STEP 1: Does the patient complete the activity by him/herself with no assistance (physical, verbal/nonverbal cueing, setup/clean-up)? Yes. 1. ADMISSION PERFORMANCE: Independent CODE: 06 DRESSING - UPPER BODY: DRESSING - UPPER BODY - STEP 1: Does the patient complete the activity by him/herself with no assistance (physical, verbal/nonverbal cueing, setup/clean-up)? Yes. 1. ADMISSION PERFORMANCE: Independent CODE: 06 DRESSING - LOWER BODY: DRESSING - LOWER BODY - STEP 1: Does the patient complete the activity by him/herself with no assistance (physical, verbal/nonverbal cueing, setup/clean-up)? Yes. 1. ADMISSION PERFORMANCE: Independent CODE: 06 PUTTING ON/TAKING OFF FOOTWEAR: FOOTWEAR - STEP 1: Does the patient complete the activity by him/herself with no assistance (physical, verbal/nonverbal cueing, setup/clean-up)? Yes. 1. [id number] ADMISSION PERFORMANCE: Independent CODE: 06 DOES THE PATIENT USE A WHEELCHAIR/SCOOTER? CODE: EXPR INDICATE THE TYPE OF WHEELCHAIR/SCOOTER USED: CODE: EXPR INDICATE THE TYPE OF WHEELCHAIR/SCOOTER USED: CODE: EXPR BLADDER AND BOWEL: CODE: EXPR CODE: EXPR SIGNATURE PANEL: The following modified sections: 1. [id number] Admission Performance, 1. [id number] Admission Performance, 1. [id number] Admission Performance, 1. [id number] Admission Performance, 1. [id number] Admission Performance were [electronically] signed by BRENT Meraz on MonNov 18 2019 14:58:34 GMT-0500 (Central Daylight Time)
--- NOTE | 2019-11-18 18:06 | R.PN ---
ENCOUNTER DATE AND TIME: 11/18/2019 18:01 (CDT) NAME MARYAM HOPPER DATE OF : 1950 DATE OF ADMISSION: 11/06/2019 22:56 (FABRICATION SUPERVISOR) NSTEMICHIEF COMPLAINT: NSTEMI and cardiac debility SUBJECTIVE: Pt denied any Shortness of Breath. Pt denied any depression. He ambulated 550' with independence and no assistive device. Up and down 12 steps using bilateral conteh d rails with contact guard assistance. Self-propelled wheelchair 250' with standby assistance. Glucose 121 to 186. Hgb 9.4, WBC 6.7. VITAL SIGNS Temperature: 98.2 F SBP/DBP: 136/48 Pulse: 77 Resp: 16 MEDICATION ALLERGIES: Sulfa ENVIRONMENTAL ALLERGIES: None Known - Substance Allergies None Known - Other Allergies None Known NURSING: - Shower allowing shower - Lab Results blood Sugar Check ACHS ACTIVITIES OOB only with supervision THERAPIES: - Dietary and Nutrition Adequate Nutrition. Nutritional Education. Nutritional Supplements. PHYSICAL EXAM - Gen Alert and awake Lying in bed No apparent distress Oriented to: person, time, and place - Skin No skin breakdown. Normacephalic - Eyes No abnormalities - ENMT No abnormalities - Neck No abnormalities - CVS RRR - Chest Mildly decreased breath sounds bilaterally. - Resp Clear to auscultation - Abd Soft - GI Soft Deferred - No abnormalities - Ext No significant edema - MSK 4+/5 weakness in both lower extremities. - Neuro No focal deficits - Psych No abnormalities ASSESSMENT: Pt. is a 69 yo Right-handed white male.On 10/22/2019 he was admitted to [facility] with diagnosis NSTEMI.His impairment category is Cardiac 09 - Cardiac Disorders (09).Pre-morbidly, Pt. was independent/mod-I in Locomotion, Safety Awareness, Balance, Social Cognition, Transfers Contr ol, Sphincter Control, Self-Care, Endurance, and Communication; and he had good Locomotion, Balance, Safety Awareness, Social Cognition, Transfers Control, Sphincter Control, Self-Care, Communication, a nd Endurance.Currently, he has deficits of Locomotion, Safety Awareness, Balance, Transfers Control, Self-Care, Communication, and Endurance.Pt. is now referred to [facility] for acute in-patient rehabilitation in order to maximize patient's functional independence in activities of daily living, strength, ROM, and mobility.- Rehab Goal Patient has realistic goal of being discharged at assistance level 6-Rashaun to reside at Home with Fam casper/Relatives. Her Hgb is low at 7.8. He is on hemocyte plus and ferrous sulfate.[place]/PLAN: - Physical Therapy Gait dysfunction - to improve, our physical therapists will perform initial evaluation of pt's statu s upon admission and devise an individualized program for Gait Training, and Wheel Chair mobility Inability to transfer - to improve, our physical therapists will perform initial evaluation of pt's status upon admission and devise an individualized program for Bed mobility Need for home safety evaluation - to improve, our physical therapists will perform initial evaluatio n of pt's status upon admission and devise an individualized program for Home Evaluation Need in caregiver upon discharge - to improve, our physical therapists will perform initial evaluati on of pt's status upon admission and devise an individualized program for Caregiver Training New precaution - to improve, our physical therapists will perform initial evaluation of pt's status upon admission and devise an individualized program for Patient precaution education Edema - to improve, our physical therapists will perform initial evaluation of pt's status upon admi ssion and devise an individualized program for Elevation Training, and Lymphedema Therapy Poor balance - to improve, our physical therapists will perform initial evaluation of pt's status up on admission and devise an individualized program for Balance Training Poor endurance - to improve, our physical therapists will perform initial evaluation of pt's status upon admission and devise an individualized program for Endurance Training Weakness - to improve, our physical therapists will perform initial evaluation of pt's status upon a dmission and devise an individualized program for Aquatic Therapy, Neuromuscular Reeducation, and Str engthening Achieving independence - to improve, our physical therapists will perform initial evaluation of pt's status upon admission and devise an individualized program for Community Reintegration Activities - Occupational Therapy ADL deficits - to improve, our occupation therapists will perform initial evaluation of pt's status upon admission and devise an individualized program for Bathing, Bed mobility, Community Reintegratio n, Cooking, Dressing, Eating, Fine Motor Skills, Grooming, Homemaking, Kitchen Mobility, Laundry, Pat ient Education, Safety Awareness, Splinting - Positioning, Transfers(Toilet, Tub, Shower), and Wheel Chair Management Need for career development facilitator - to improve, our occupation therapists will perform initial evaluation of pt's status upon admission and devise an individualized program for Caregiver Training Weakness - to improve, our occupation therapists will perform initial evaluation of pt's status upon admission and devise an individualized program for Aquatic Therapy, Balance, Endurance, UE ROM, and UE strengthening - Other See attached MAR (Medication Administration Record) See attached MAR (Medication Administration Record) Ritika Hopper.pdf - Diet Type Continue Regular - Diet - Liquid Texture Continue Regular - Tube Feed Continue N/A - Lab Results blood Sugar Check ACHS - Diet - Solid Texture Continue Regular - Shower allowing shower FUNCTIONAL STATUS: UPDATED AT WEEKLY TEAM CONFERENCE - Bladder Same accident frequency: 7-Ind - No accidents in the past 7 days - Bowel Same accident frequency: 7-Ind - No accidents in the past 7 days - Walking Same score based on distance walked: 0(N/A) Same score based on distance walked: 2(50-149ft) - Wheelchair Same score based on distance traveled: 0(N/A) FUNCTIONAL STATUS: - Self-Care A. Eating Ind B. Grooming Rashaun C. Bathing Odalis D. Dressing - Upper sup E. Dressing - Lower Odalis F. Toileting Rashaun - Sphincter Control G. Bladder control Rashaun H. Bowel control Rashaun - Transfers Control I. Bed/Chair/Wheelchair Odalis J. Toilet sup K. Tub/Shower Odalis - Locomotion L. Walk/Wheelchair (B) Odalis M. Stairs modA - Communication N. Comprehension (B) Ind O. Expression (B) Ind - Social Cognition P. Social Interaction Ind Q. Problem Solving Ind R. Memory Ind - Endurance Fair - Balance Good - Safety Awareness Good QI SCORES: - Self-Care A. Eating 05-Setup or clean-up assistance B. Oral hygiene 05-Setup or clean-up assistance C. Toileting hygiene 02-Substantial/maximal assistance E. Shower/bathe self 03-Partial/moderate assistance F. Upper body dressing 03-Partial/moderate assistance G. Lower body dressing 01-Dependent H. Putting on/taking off footwear 01-Dependent - Mobility A. Roll left and right 03-Partial/moderate assistance B. Sit to lying 03-Partial/moderate assistance C. Lying to sitting on side of bed 03-Partial/moderate assistance D. Sit to stand 03-Partial/moderate assistance E. Chair/obo-ss-vbnat transfer 03-Partial/moderate assistance F. Toilet transfer 03-Partial/moderate assistance G. Car transfer 10-Not attempted due to environmental limitations I. Walk 10 feet 03-Partial/moderate assistance J. Walk 50 feet with two turns 88-Not attempted due to medical condition or safety concerns K. Walk 150 feet 03-Partial/moderate assistance L. Walking 10 feet on uneven surfaces 88-Not attempted due to medical condition or safety concerns M. 1 step (curb) 88-Not attempted due to medical condition or safety concerns N. 4 steps 88-Not attempted due to medical condition or safety concerns O. 12 steps 88-Not attempted due to medical condition or safety concerns P. Picking up object 88-Not attempted due to medical condition or safety concerns R. Wheel 50 feet with two turns 88-Not attempted due to medical condition or safety concerns S. Wheel 150 feet 88-Not attempted due to medical condition or safety concerns - Bladder and Bowel Bladder continence 0-Always continent Bowel continence 0-Always continent - Endurance Poor - Balance Fair - Safety Awareness Fair [facility] DEFICITS: Self-Care, Mobility, Endurance, Balance, and Safety Awareness SIGNATURE PANEL: (CDT)
--- NOTE | 2019-11-18 20:00 | P.PN ---
Date of Service: 11/18/19 Vital Signs Temp Pulse Resp BP Pulse Ox 96.5 F L 77 16 136/48 L 95 11/18/19 07:51 11/18/19 07:51 11/18/19 07:51 11/18/19 07:51 11/18/19 07:51 Medications Hydrocodone Bitart/Acetaminophen ([place] 7.5/325 Mg) 1 tab PO Q4H PRN PRN Reason: Pain scale 8-10 (Severe) Stop: 12/08/19 10:42 Last Admin: 11/16/19 09:15 Dose: 1 tab Albuterol Sulfate (Proventil 0.083% Neb Soln) 2.5 mg NEB [id number] PRN PRN Reason: SHORTNESS OF BREATH Stop: 12/06/19 23:24 Apixaban (Eliquis) 2.5 mg PO BID JOHNATHON Stop: 12/07/19 08:01 Last Admin: 11/18/19 08:06 Dose: 2.5 mg Aspirin (Aspirin Chewable) 81 mg PO DAILY JOHNATHON Stop: 12/07/19 08:01 Last Admin: 11/18/19 08:06 Dose: 81 mg Atorvastatin Calcium (Lipitor) 40 mg PO BEDTIME JOHNATHON Stop: 12/07/19 21:01 Last Admin: 11/17/19 21:05 Dose: 40 mg Cholecalciferol (Vitamin D 5,000 Iu Cap) 10,000 unit PO DAILY JOHNATHON Stop: 12/07/19 08:01 Last Admin: 11/18/19 08:06 Dose: 10,000 unit Dextrose (Dextrose 50% Syringe/Vial) 12.5 gm IV PRN PRN; Protocol PRN Reason: HYPOGLYCEMIA Stop: 12/07/19 02:18 Docusate Sodium (Colace Cap) 100 mg PO BID JOHNATHON Stop: 12/07/19 08:01 Last Admin: 11/18/19 08:06 Dose: 100 mg Duloxetine HCl (Cymbalta Delayed Release Pellets) 20 mg PO DAILY JOHNATHON Stop: 12/12/19 08:01 Last Admin: 11/18/19 08:06 Dose: 20 mg Ferrous Sulfate (Feosol) 325 mg PO DAILY JOHNATHON Stop: 12/07/19 08:01 Last Admin: 11/18/19 08:06 Dose: 325 mg Fexofenadine HCl (Cami) 180 mg PO BEDTIME JOHNATHON Stop: 12/07/19 21:01 Last Admin: 11/17/19 21:05 Dose: 180 mg Fish Oil (Fish Oil 1,000 Mg Cap) 2,000 mg PO BID JOHNATHON Stop: 12/07/19 08:01 Last Admin: 11/18/19 08:08 Dose: 2,000 mg Gabapentin (Neurontin) 600 mg PO BID JOHNATHON Stop: 12/11/19 08:01 Last Admin: 11/18/19 08:06 Dose: 600 mg Glucagon (Glucagen) 1 mg IM 1X PRN; Protocol PRN Reason: HYPOGLYCEMIA Stop: 12/07/19 02:18 Heparin Sodium (Porcine) (Heparin 10,000 Units/10 Ml Vial) 6,000 unit IV EVERY HD PRN PRN Reason: FLUSH AFTER EACH USE Stop: 12/07/19 17:00 Albumin Human (Albumin 25%) 50 mls @ 100 mls/hr IV EVERY HD JOHNATHON Stop: 12/07/19 17:01 Insulin Glargine (Lantus) 10 units SQ BEDTIME JOHNATHON Stop: 12/07/19 21:01 Last Admin: 11/17/19 21:05 Dose: 10 units Insulin Glargine (Lantus) 20 units SQ DAILY WITH BREAKFAST JOHNATHON Stop: 12/07/19 08:01 Last Admin: 11/18/19 08:07 Dose: 20 units Insulin Human Regular (Novolin -R) 0 unit SQ ACHS JOHNATHON; Protocol Stop: 12/07/19 07:31 Last Admin: 11/18/19 16:30 Dose: Not Given L-Arginine/L-Glutamine/HMB (Beni) 1 pkt PO BID JOHNATHON Stop: 12/07/19 20:01 Last Admin: 11/18/19 08:05 Dose: 1 pkt Lidocaine/Prilocaine (Emla Cream) 1 appl TOP EVERY HD JOHNATHON Stop: 12/10/19 14:01 Last Admin: 11/18/19 13:36 Dose: 1 appl Lorazepam (Ativan) 0.5 mg PO Q12HP PRN PRN Reason: ANXIETY Stop: 12/08/19 21:38 Last Admin: 11/12/19 03:27 Dose: 0.5 mg Mannitol (Mannitol 12.5 Gm/50 Ml Vial) 12.5 gm IV EVERY HD PRN PRN Reason: FOR BP SUPPORT AT HD Stop: 12/07/19 17:00 Melatonin (Melatonin) 3 mg PO BEDTIME [facility] Stop: 12/14/19 21:01 Last Admin: 11/17/19 21:00 Dose: Not Given Midodrine (Proamatine) 10 mg PO EVERY HD [facility] Stop: 12/07/19 03:01 Last Admin: 11/18/19 13:37 Dose: 10 mg Montelukast Sodium (Singulair) 10 mg PO BEDTIME JOHNATHON Stop: 12/07/19 21:01 Last Admin: 11/17/19 21:05 Dose: 10 mg Multivitamins/Iron (Hemocyte Plus) 1 tab PO DAILY WITH BREAKFAST [facility] Stop: 12/07/19 08:01 Last Admin: 11/18/19 08:08 Dose: 1 tab Ondansetron HCl (Zofran) 4 mg PO Q4H PRN PRN Reason: NAUSEA / VOMITING Stop: 12/10/19 06:20 Last Admin: 11/10/19 06:28 Dose: 4 mg Pantoprazole Sodium (Protonix Tab) 40 mg PO BIDAC [facility]; Protocol Stop: 12/07/19 07:31 Last Admin: 11/18/19 18:37 Dose: 40 mg Polyethylene Glycol (Glycolax) 17 gm PO DAILY [facility] Stop: 12/07/19 08:01 Last Admin: 11/18/19 08:05 Dose: 17 gm Sevelamer Carbonate (Renvela) 1,600 mg PO TIDWM [facility] Stop: 12/07/19 08:01 Last Admin: 11/18/19 18:36 Dose: 1,600 mg Tramadol HCl (Ultram) 50 mg PO Q4H PRN PRN Reason: Pain scale 2-4 (Mild) Stop: 12/11/19 14:45 Last Admin: 11/11/19 18:55 Dose: 50 mg Trazodone HCl (Desyrel) 25 mg PO BEDTIME [facility] Stop: 12/12/19 21:01 Last Admin: 11/17/19 21:00 Dose: Not Given Lab Results (last 24 hrs) 11/18/19 17:30: POC Glucose 121 H 11/18/19 12:02: POC Glucose 186 H 11/18/19 07:53: POC Glucose 151 H 11/17/19 20:22: POC Glucose 178 H Assessment/ Plan: Nephrology Feeling better with improving edema. Persistent LLE Edema. CPS stable without CP or SOB. +LOREDO No acute events overnight. Vitals, medications, blood work and imaging reviewed in the chart. General: In no apparent distress, Oriented x3, Cooperative HEENT: Atraumatic Neck: Supple Respiratory: Clear to auscultation bilaterally Cardiovascular: Edema Gastrointestinal: Normal bowel sounds, Soft and benign Musculoskeletal: No clubbing, No contractures Integumentary: No rashes, No cyanosis, Skin lesion Neurological: Normal speech Laboratory Data (last 24 hrs) 11/07/19 05:40: Sodium 140, Potassium 3.8, BUN 24 H, Creatinine 4.82 H, Glucose 116 H, Magnesium 2.2 11/07/19 05:40: WBC 5.7, Hgb 7.8 L*, Hct 23.2 L, Plt Count 273 Conclusions/Impression: A/ ESRD on HD. HTN with CKD/ CHF. CHRIS on CPAP. Diastolic CHF, chronic. DM II with CKD. Anemia in CKD. LADONNA/ Secondary HyperPTH. Nephrolithiasis. CAD. P/ Continue current POC and Medications. HD TIW. Give Retacrit. Encourage nutrition. Low sodium diet. PT as tolerated. No NSAIDs. AM labs PRN. Daily weight.
[2019-11-18] MEDS: ATORVASTATIN 40 MG TAB PO SCH (20:12)
[2019-11-18] MEDS: TRAZODONE 50 MG TABLET PO SCH (20:12)
[2019-11-18] MEDS: MONTELUKAST 10 MG TAB PO SCH (20:12)
[2019-11-18] MEDS: FEXOFENADINE 180 MG TAB PO SCH (20:13)
[2019-11-18] MEDS: MELATONIN 3 MG TABLET PO SCH (20:13)
[2019-11-18] MEDS ORDERED: EPOETIN ALFA 10,000 UNIT/ML VIAL SQ SCH (20:30)
[2019-11-18] MEDS: HYDROCODONE/APAP 7.5/325 MG TAB PO PRN (22:15)
[2019-11-18 22:37] VITALS: O2SAT 96
[2019-11-19] MEDS: INSULIN -REGULAR HUMAN 50 UNIT/0.5 ML ML SQ SCH (07:30)
[2019-11-19] MEDS: POLYETHYL GLY 3350 17 GM/DOSE PO SCH (08:00)
[2019-11-19] MEDS: SEVELAMER CARBONATE 800 MG TABLET PO SCH (08:00)
[2019-11-19] MEDS: JUVEN PACKET PO SCH (08:00)
[2019-11-19] MEDS: FE SULF/FA/VIT B COMP & C TAB PO SCH (08:00)
[2019-11-19 09:17] VITALS: BP 116/53; TEMP 97
[2019-11-19] MEDS: DOCOSAHEXANOIC AC/EPA 1000 MG PO SCH (09:47)
[2019-11-19] MEDS: ASPIRIN 81 MG CHEWABLE TABLET PO SCH (09:48)
[2019-11-19] MEDS: APIXABAN 2.5 MG TABLET PO SCH (09:48)
[2019-11-19] MEDS: GABAPENTIN 300 MG CAP PO SCH (09:49)
[2019-11-19] MEDS: DOCUSATE NA 100 MG CAP PO SCH (09:49)
[2019-11-19] MEDS: PANTOPRAZOLE 40MG TABLET PO SCH (09:49)
[2019-11-19] MEDS: FERROUS SULFATE 325 MG TAB PO SCH (09:49)
[2019-11-19] MEDS: VITAMIN D 5,000 UNIT CAP PO SCH (09:50)
[2019-11-19] MEDS: DULOXETINE 20 MG CAP PO SCH (09:50)
[2019-11-19] MEDS: INSULIN GLARGINE 100 UNITS/ML SQ SCH (09:51)
--- NOTE | 2019-11-29 15:46 | R.DS ---
FACILITY [facility] MR# [id number] NAME SHELLI HOPPER [address]ESS [id number] [place]IP [address] PHONE DATE OF 1950 AGE 69 SSN# [id number] GENDER Male DEXTERITY Right-handed MARITAL STATUS RACE White ENCOUNTER PHYSICIAN Dr. James Jules M.D. REFERRING DOCTOR Sandra Bray REFERRING FACILITY [facility] DISCHARGE DIAGNOSIS: - Cardiac 09 - Cardiac Disorders (09) NSTEMI. DISCHARGE COMORBIDITIES: - Tier 1 Dependence on renal dialysis (Z99.2) - Tier 3 Type 2 diabetes mellitus with diabetic polyneuropathy (E11.42) - Non-Tiered Obstructive sleep apnea (adult) (G47.33) - N/A NSTEMI Syncope ESRD Pleaural effusion on left Pericardial Tamponade CHF Hepatitis A Hypertension DATE OF ADMISSION 11/06/2019 22:56 (INTERNAL WHOLESALER) MEDICATION ALLERGIES: Sulfa ENVIRONMENTAL ALLERGIES: None Known - Substance Allergies None Known - Other Allergies None Known DISCHARGE MEDICATIONS: Other- ContinueSee attached MAR (Medication Administration Record). ContinueSee attached MAR (Medication Administration Record) Ritika Hopper.pdf. NURSING: - Shower allowing shower - Lab Results blood Sugar Check ACHS ACTIVITIES OOB only with supervision THERAPIES: - Dietary and Nutrition Adequate Nutrition Nutritional Education Nutritional Supplements HISTORY OF PRESENT ILLNESS: Pt. is a 69 yo Right-handed white male.On 10/22/2019 he was admitted to [facility] with diagnosis NSTEMI.His impairment category is Cardiac 09 - Cardiac Disorders (09).Pre-morbidly, Pt. was independent/mod-I in Locomotion, Safety Awareness, Balance, Social Cognition, Transfers Contr ol, Sphincter Control, Self-Care, Endurance, and Communication; and he had good Locomotion, Balance, Safety Awareness, Social Cognition, Transfers Control, Sphincter Control, Self-Care, Communication, a nd Endurance.Currently, he has deficits of Locomotion, Safety Awareness, Balance, Transfers Control, Self-Care, Communication, and Endurance.Pt. is now referred to [facility] for acute in-patient rehabilitation in order to maximize patient's functional independence in activities of daily living, strength, ROM, and mobility.- Rehab Goal Patient has realistic goal of being discharged at assistance level 6-Rashaun to reside at Home with Fam casper/Relatives. Shelli Hopper is a 69 year old male that lives in a single sander house with his . He ambulates independently with assistance needed with ADLs. On 10/22/2019, patient complained of unstable angina and underwent Coronary Angiogram revealing multivessel disease and was admitted to [facility]. He is now medically stable but in need of 24-hour nursing, doctor supervision and oversite participate in 3hours of therapy a day/15 hours per week and receive care with an intensive interdisciplinary approach.Her Hgb is low at 7.8. He is on hemocyte plus and ferrous sul fate.[facility]: DIET - LIQUID TEXTURE: On 11/05/2019 Pt was upgraded to Regular Diet - Liquid Texture. DIET - SOLID TEXTURE: On 11/05/2019 Pt was upgraded to Regular Diet - Solid Texture. DIET TYPE: On 11/05/2019 Pt was upgraded to Regular Diet Type. TUBE FEED: On 11/05/2019 Pt was changed to N/A Tube Feed. DISCHARGE PHYSICAL EXAM - Gen Alert and awake Lying in bed No apparent distress Oriented to: person, time, and place - Skin No skin breakdown. Normacephalic - Eyes No abnormalities - ENMT No abnormalities - Neck No abnormalities - CVS RRR - Chest Mildly decreased breath sounds bilaterally. - Resp Clear to auscultation - Abd Soft - GI Soft Deferred - No abnormalities - Ext No significant edema - MSK 4+/5 weakness in both lower extremities. - Neuro No focal deficits - Psych No abnormalities FUNCTIONAL STATUS: - Self-Care A. Eating 7-Ind B. Grooming 6-Rashaun C. Bathing 6-Rashaun D. Dressing - Upper 6-Rashaun E. Dressing - Lower 6-Rashaun F. Toileting 6-Rashaun - Sphincter Control G. Bladder control 6-Rashaun H. Bowel control 6-Rashaun - Transfers Control I. Bed/Chair/Wheelchair 6-Rashaun J. Toilet 6-Rashaun K. Tub/Shower 6-Rashaun - Locomotion L. Walk/Wheelchair (B) 6-Rashaun M. Stairs 6-Rashaun - Communication N. Comprehension (B) 7-Ind O. Expression (B) 7-Ind - Social Cognition P. Social Interaction 7-Ind Q. Problem Solving 7-Ind R. Memory 7-Ind - Endurance Fair - Balance Good - Safety Awareness Good QI SCORES: - Self-Care A. Eating 05-Setup or clean-up assistance B. Oral hygiene 05-Setup or clean-up assistance C. Toileting hygiene 02-Substantial/maximal assistance E. Shower/bathe self 03-Partial/moderate assistance F. Upper body dressing 03-Partial/moderate assistance G. Lower body dressing 01-Dependent H. Putting on/taking off footwear 01-Dependent - Mobility A. Roll left and right 03-Partial/moderate assistance B. Sit to lying 03-Partial/moderate assistance C. Lying to sitting on side of bed 03-Partial/moderate assistance D. Sit to stand 03-Partial/moderate assistance E. Chair/opa-yg-oumka transfer 03-Partial/moderate assistance F. Toilet transfer 03-Partial/moderate assistance G. Car transfer 10-Not attempted due to environmental limitations I. Walk 10 feet 03-Partial/moderate assistance J. Walk 50 feet with two turns 88-Not attempted due to medical condition or safety concerns K. Walk 150 feet 03-Partial/moderate assistance L. Walking 10 feet on uneven surfaces 88-Not attempted due to medical condition or safety concerns M. 1 step (curb) 88-Not attempted due to medical condition or safety concerns N. 4 steps 88-Not attempted due to medical condition or safety concerns O. 12 steps 88-Not attempted due to medical condition or safety concerns P. Picking up object 88-Not attempted due to medical condition or safety concerns R. Wheel 50 feet with two turns 88-Not attempted due to medical condition or safety concerns S. Wheel 150 feet 88-Not attempted due to medical condition or safety concerns - Bladder and Bowel Bladder continence 0-Always continent Bowel continence 0-Always continent - Endurance Poor - Balance Fair - Safety Awareness Fair DISCHARGE INSTRUCTIONS: - N/A Eliquis 2.5 mg bid and Aspirin 81 mg daily. DISCHARGE PLAN, FOLLOW UP CARE PROVISIONS: - Estimated Length of Stay (days) 10. - Consensus on plan Discharge plan has been discussed with primary caregiver. Patient/Family is in agreement with the catina n. Primary caregiver is in agreement with the plan. - Patient/Family Goals Return home with assistance. - Planned Living Setting Upon Discharge Home, to live with Family/Relatives. Transitional Living. SIGNATURE PANEL: (CDT)
== END 2019-11-19 10:45 | disposition home or self-care (01) | DRG 280 ==
LOC: 5TH 11-06 22:56
PROVIDERS: ADMIT Psychiatry & Neurology Neurology with Special Qualifications in Child Neurology; ATTEND Psychiatry & Neurology Neurology with Special Qualifications in Child Neurology
DX: I22.2 Subsequent non-ST elevation (NSTEMI) myocardial infarction (principal); N18.6 End stage renal disease; I13.0 Hypertensive heart and chronic kidney disease with heart failure and stage 1 through stage 4 chronic kidney disease, or unspecified chronic kidney disease; I50.32 Chronic diastolic (congestive) heart failure; N25.81 Secondary hyperparathyroidism of renal origin; B15.9 Hepatitis A without hepatic coma; E11.22 Type 2 diabetes mellitus with diabetic chronic kidney disease; E11.42 Type 2 diabetes mellitus with diabetic polyneuropathy; G47.33 Obstructive sleep apnea (adult) (pediatric); I25.10 Atherosclerotic heart disease of native coronary artery without angina pectoris; D63.1 Anemia in chronic kidney disease; N20.0 Calculus of kidney; Z95.1 Presence of aortocoronary bypass graft; Z99.81 Dependence on supplemental oxygen; Z99.2 Dependence on renal dialysis
CPT/HCPCS: 36415; 80048; 80053; 82040; 82947; 83735; 84100; 84134; 84484; 85014; 85018; 85025; 86850; 86900; 86901; 90935; 92523; 93005; 97110; 97116; 97127; 97161; 97530; 97542; J1644; J1815; J2150; J7030; P9016; Q4081; Q5105; Q5106

== ENCOUNTER 2020-06-29 17:17 | Emergency (ER) | payer OTHER, MEDICARE ==
--- OUTSIDE RECORDS SUMMARY | 2020-06-29 17:21 | XMS REPORT | Clinical Summary ---
:1950 Author Organization [facility] Address [address] [place] [address] Care Team Providers Name Role Phone Nicola Byrne Primary Care Provider Allergies Active Allergy Reactions Severity Noted Date Comments Seasonal Allergies Other (See Comments) 01/03/2019 I tchy eyes, runny nose Sulfa (Sulfonamide Hives 01/03/2019 Antibiotics) Tetracyclines Rash Low 01/03/2019 welps Medications Medication Sig Dispensed Refills Start End Date Status Date fexofenadine Take 180 mg by 0 Ac tive (JULISSA) 180 MG mouth nightly. tablet montelukast Take 10 mg by 0 Acti ve (SINGULAIR) 10 mg mouth nightly. tablet pantoprazole Take 40 mg by 0 Act meaghan (PROTONIX) 40 MG mouth 2 (two) tablet times daily . omega-3 fatty Take 2 g by 0 Acti ve acids-fish oil mouth 2 (two) 340-1,000 mg Cap times daily . per capsule cholecalciferol, Take 10,000 0 A ctive vitamin D3, 5,000 Units by mouth unit Tab daily . sevelamer Take 2,400 mg 0 Active (RENVELA) 800 mg by mouth 3 tablet (three) times daily with meals . docusate sodium Take 100 mg by 0 Active (COLACE) 100 MG mouth 2 (two) capsule times daily. apixaban Take 1 tablet 180 tablet 0 Activ e (ELIQUIS) 2.5 mg (2.5 mg total) 9 Tab tablet by mouth 2 (two) times daily. HYDROcodone-aceta Take 1 tablet 0 Active minophen (NORCO by mouth 2 7.5-325) 7.5-325 (two) times mg per tablet daily as needed for Pain. polyethylene Take 17 g by 0 Acti ve glycol (GLYCOLAX) mouth daily. 17 gram packet lidocaine-priloca Apply topically 0 Active ine (EMLA) as needed. 2.5-2.5 % cream aspirin 81 MG Take 1 tablet 0 11/07/19 Ac tive chewable tablet (81 mg total) 0 21 by mouth daily. atorvastatin Take 1 tablet 0 11/06/19 Act meaghan (LIPITOR) 40 MG (40 mg total) 0 21 tablet by mouth nightly. metoprolol Take 0.5 0 11/06/19 Active tartrate tablets (12.5 0 21 (LOPRESSOR) 25 MG mg total) by tablet mouth 2 (two) times daily Hold the morning dose on dialysis days.. insulin glargine 20 units in the 10 mL 0 Active (LANTUS) 100 morning and 10 0 unit/mL injection units at night. rosuvastatin Take 10 mg by 0 11/06/19 Dis continued (CRESTOR) 10 MG mouth nightly. 20 (Stop Taking at tablet Discharge) HYDROmorphone Take 2 mg by 0 10/22/19 Dis continued (DILAUDID) 2 MG mouth daily as 20 (Med History: tablet needed for Pain Melvi ent reports . therapy complete) ciclopirox 1 application 1 10/22/19 Disco ntinued (LOPROX) 0.77 % daily. 9 20 cream gabapentin Take 1 capsule 270 capsule 3 01/08/20 Ex pired (NEURONTIN) 300 (300 mg total) 9 20 MG capsule by mouth 3 (three) times daily. clopidogrel Take 75 mg by 0 11/06/19 Disc ontinued (PLAVIX) 75 mg mouth daily. 20 (S top Taking at tablet Discharge) insulin glargine 40 units in the 10 mL 0 0 Discontinued (LANTUS) 100 morning and 20 9 20 (R eorder) unit/mL injection units at night. insulin aspart 10 units before 10 mL 0 11/06/19 Discontinued U-100 (NOVOLOG) large meals. 9 20 ( Stop Taking at 100 unit/mL Discharg e) injectionIndicati ons: type 2 diabetes mellitus predniSONE Starting 05/01: 9 tablet 0 10/22/19 Disc ontinued (DELTASONE) 10 MG Take 20mg once 9 20 tablet per day for 3 days, then take 10mg once per day for 3 days, then stop taking. midodrine Take 1 tablet 0 12/06/19 d (PROAMATINE) 10 (10 mg total) 0 20 MG tablet by mouth 3 (three) times a week MON/WED/FRI for 30 days Give 30 minutes prior to HD. Active Problems Problem Noted Date S/P CABG x [address] Chavez on 10/28/2019 10/28/2019 NSTEMI (non-ST elevated myocardial infarction) 020 Syncope, unspecified syncope type 04/14/2019 Pleural effusion on left 01/18/2019 Pericardial tamponade 01/18/2019 Chest pain 01/03/2019 ESRD on hemodialysis 01/03/2019 Fever, unspecified fever cause Hypotension due to hypovolemia ESRD (end stage renal disease) on dialysis Acute respiratory insufficiency Acute blood loss anemia Thrombocytopenia Hyperglycemia ESRD (end stage renal disease) Encounters Date Type Specialty Care Team Description 12/09/2019 Telephone KERRY Carson 30-day post Cathy Caicedo RN discharge f/u call 12/06/2019 Telephone Cardiology Gal Chavez MD 11/08/2019 Documentation Jacklyn Boggs RN 10/28/2019 Surgery Gal Chavez STERNOTOMY MD Zoltan 10/28/2019 Anesthesia Event Dasha Cortez MD Nguyen, Anvinh, MD 10/23/2019 Surgery Agustin Rios L CATH & PCI 10/22/2019 - Hospital Encounter Cardiology Bernardino Jerez NSTEMI (n on-ST elevated myocardial infarction) ([facility]) (Primary Dx); 11/06/2019 MD Marin ESRD (end stage renal disease) ([facility]); Ritika Clarke Unstable an thierno pectoris ([facility]); MD Zully 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, unspecified vessel or lesion type ([facility]); Nikky Lr MD Diabetes mellitus type 2 in obese ([facility]); Sandra Bray CHRIS (obstru ctive sleep apnea); MD Monica ESRD (end stage renal disease) on dialysis (HCC); 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 No t asked Sex Assigned at Date Recorded Not on file Last Filed Vital Signs Vital Sign Reading Time Taken Comments Blood Pressure 124/53 11/06/2019 8:38 PM OFFICE MACHINE INSTALLER Pulse 83 11/06/2019 8:38 PM OFFICE MACHINE INSTALLER Temperature 37.2 C (98.9 F) 11/06/2019 8:38 PM OFFICE MACHINE INSTALLER Respiratory Rate 18 11/06/2019 8:38 PM OFFICE MACHINE INSTALLER Oxygen Saturation 100% 11/06/2019 8:38 pt removed pu lse ox PM OFFICE MACHINE INSTALLER immediatly and s aid thats good enoug h Inhaled Oxygen 32% 11/05/2019 7:52 Concentration AM OFFICE MACHINE INSTALLER Weight 130.2 kg (287 lb 0.6 11/06/2019 6:10 oz) PM OFFICE MACHINE INSTALLER Height 180.3 cm (5' 11") 10/22/2019 11:12 AM OFFICE MACHINE INSTALLER Body Mass Index 40.03 10/22/2019 11:12 AM OFFICE MACHINE INSTALLER Plan of Treatment Health Maintenance Due Date Last Done Comments COLON CANCER SCREENING ANNUAL FOBT 1950 DIABETIC EYE EXAM 1961 DIABETIC FOOT EXAM 1961 URINE MICROALBUMIN 1961 PNEUMOCOCCAL 65+ YRS (1 of 1 - 2016 [id number]) MEDICARE ANNUAL WELLNESS (YEAR 2 or FIRST 08/05/2017 YEAR if no IPPE) HEMOGLOBIN A1C 10/28/2019 04/27/2019, 01/08/2019 INFLUENZA VACCINE (#1) 2020 Implants Implanted Type Area Level Vial Inside Grinder Device Shelf Model / Identifier Expiration Serial / Date Lot Stent Synergy Otw [id number] - [id number] IMPLAN TS N/A: Heart [place] [id number] 04/03/2020 [id number] / Implanted: Qty: 1 on 01/03/2019 by Agustin Rios MD at [facility] SCI:INTERV / CARDIOLOGY [id number] Stent Synergy Otw [id number] - [id number] IMPLAN TS N/A: Heart [place] [id number] 08/12/2020 [id number] / Implanted: Qty: 1 on 01/03/2019 by Agustin Rios MD at [facility] SCI:INTERV / CARDIOLOGY [id number] Stent Synergy Otw [id number] - [id number] IMPLANTS N/A: Heart [place] [id number] 05/07/2020 [id number] / Implanted: Qty: 1 on 01/03/2019 by Agustin Rios MD at [facility] SCI:INTERV / CARDIOLOGY [id number] Sternal Zipfix Ndl Strl [id number] - [id number] IMPLANTS Sternum SYNTHES:SYNTHE 02/02/2024 [id number] / Implanted: Qty: 3 on 10/28/2019 by Gal Chavez MD at [facility] S [facility] / [id number] Pledget Bttrs Soft 9.5x4.8x1.5 Pcp40 - [id number] IMPLANTS Heart J &J:ETHICON 04/03/2024 [id number] / Implanted: Qty: 2 on 10/28/2019 by Gal Chavez MD at [facility] / [id number] Lead Pacemkr Capsur Novus 52cm 5076-52 - [id number] PACEMAKER/I N/A: Heart MEDTRONIC:CARD [id number] 02/22/2021 5076-52 / Implanted: Qty: 1 on 04/29/2019 by Renato Abel i, MD at [facility] CD CHAMBER RHY:DISEASE [id number] / DEVICE MGT Description:PPM lead implanted to R vent ricle. Lead Pacemkr Capsur Novus 45cm 5076-45 - [id number] PACEMAKER/I CD N/A: MEDTRONIC:CARD [id number] 02/21/2021 5076-45 / Implanted: Qty: 1 on 04/29/2019 by Renato Abel i, MD at [facility] CHAMBER DEVICE Heart RHY:DISEASE MGT P [id number] / Description:PPM lead implanted to R atri um. Pacemkr [place] Xtdr Mri Ipg [id number] - [id number] PACEMAKER/ICD Right: MEDTRONIC:CARD [id number] 08/31/2020 [id number] / Implanted: Qty: 1 on 04/29/2019 by Renato Abel i, MD at [facility] CHAMBER DEVICE Chest RHY:PACING SYS RN [id number] / Description:Pacemaker device implanted t o R upper chest. Procedures Procedure Name Priority Date/Time Associated Comments Diagnosis ARRYTHMIA IMPLANT 11/18/2019 5:00 REPORT - SCAN PM CDT ARRYTHMIA IMPLANT 11/14/2019 4:00 REPORT - SCAN PM CDT RHYTHM STRIP - SCAN 11/12/2019 3:20 PM CDT TRANSFUSION SERVICE 11/08/2019 5:50 REPORT - SCAN PM OFFICE MACHINE INSTALLER RHYTHM STRIP - SCAN 11/08/2019 11:02 AM OFFICE MACHINE INSTALLER VASCULAR DIAGRAM 11/08/2019 11:02 -SCAN AM OFFICE MACHINE INSTALLER CARDIAC CATH REPORT - 11/08/2019 11:01 SCAN AM OFFICE MACHINE INSTALLER PREPARE LEUKO-REDUCED Routine 11/07/2019 11:54 Re sults for this RBC PM OFFICE MACHINE INSTALLER procedure are i n the results section. TRANSFUSION SERVICE 11/07/2019 5:50 REPORT - SCAN PM OFFICE MACHINE INSTALLER PREPARE LEUKO-REDUCED Routine 11/06/2019 11:54 Re sults for this RBC PM OFFICE MACHINE INSTALLER procedure are i n the results section. HEMODIALYSIS Routine 11/06/2019 6:10 Results for this INPATIENT PM OFFICE MACHINE INSTALLER procedure are i n the results section. TRANSFUSION SERVICE 11/06/2019 5:51 REPORT - SCAN PM OFFICE MACHINE INSTALLER XR CHEST 1 VIEW Routine 11/06/2019 11:20 Results for this PORTABLE/BEDSIDE AM OFFICE MACHINE INSTALLER procedure a re in the results section. POCT-GLUCOSE METER Routine 11/06/2019 11:19 Resul ts for this AM OFFICE MACHINE INSTALLER procedure are i n the results section. TRANSFUSE Routine 11/06/2019 9:33 LEUKO-REDUCED RED AM OFFICE MACHINE INSTALLER BLOOD CELLS (CELLAVISION MANUAL Routine 11/06/2019 4:40 Resu lts for this DIFF) AM OFFICE MACHINE INSTALLER procedure are i n the results section. CBC W/PLT COUNT & Routine 11/06/2019 4:40 Result s for this AUTO DIFFERENTIAL AM OFFICE MACHINE INSTALLER procedure are in the results section. PHOSPHORUS Routine 11/06/2019 4:40 Results for this AM OFFICE MACHINE INSTALLER procedure are i n the results section. MAGNESIUM Routine 11/06/2019 4:40 Results for this AM OFFICE MACHINE INSTALLER procedure are i n the results section. BASIC METABOLIC PANEL Routine 11/06/2019 4:40 Re sults for this (7) AM OFFICE MACHINE INSTALLER procedure are i n the results section. CBC W/PLT COUNT & Routine 11/06/2019 4:40 Result s for this AUTO DIFFERENTIAL AM OFFICE MACHINE INSTALLER procedure are in the results section. TRANSFUSE Routine 11/06/2019 12:57 LEUKO-REDUCED RED AM OFFICE MACHINE INSTALLER BLOOD CELLS POCT-GLUCOSE METER Routine 11/05/2019 9:56 Resul ts for this PM OFFICE MACHINE INSTALLER procedure are i n the results section. TYPE AND SCREEN, Routine 11/05/2019 6:03 Results for this AUTOMATED PM OFFICE MACHINE INSTALLER procedure are i n the results section. ECG 12-LEAD Routine 11/05/2019 4:53 PM OFFICE MACHINE INSTALLER Procedure Note - Interface, External Ris In - 11/05/2019 5:03 PM OFFICE MACHINE INSTALLER Ventricular Rate 72 BPM Atrial Rate 72 BPM P-R Interval 272 ms QRS Duration 154 ms Q-T Interval 450 ms QTC Calculation(Bazett) 492 ms P [place] 14 degrees R [place] -65 degrees T [place] 97 degrees Sinus rhythm with 1st degree A-V block Right bundle branch block Left anterior fascicular blo ck Bifascicular block Possible Lateral infarct (ci raina on or before 27-OCT-2019) Abnormal ECG When compared with ECG of 06:41, Previous ECG has undetermine d rhythm, needs review (RBBB and left anterior fasc icular block) has replaced RSR' pattern in V1 Questionable change in initi al forces of Anterolateral leads ECG 12-LEAD GLORIA 11/05/2019 4:53 Results for this PM OFFICE MACHINE INSTALLER procedure are i n the results section. TROPONIN I GLORIA 11/05/2019 4:49 Results for this PM OFFICE MACHINE INSTALLER procedure are i n the results section. POCT-GLUCOSE METER Routine 11/05/2019 3:09 Resul ts for this PM OFFICE MACHINE INSTALLER procedure are i n the results section. HEMODIALYSIS Routine 11/05/2019 2:53 INPATIENT PM OFFICE MACHINE INSTALLER POCT-GLUCOSE METER Routine 11/05/2019 11:56 Resul ts for this AM OFFICE MACHINE INSTALLER procedure are i n the results section. POCT-GLUCOSE METER Routine 11/05/2019 7:55 Resul ts for this AM OFFICE MACHINE INSTALLER procedure are i n the results section. CBC W/PLT COUNT & Routine 11/05/2019 5:10 Result s for this AUTO DIFFERENTIAL AM OFFICE MACHINE INSTALLER procedure are in the results section. PHOSPHORUS Routine 11/05/2019 5:10 Results for this AM OFFICE MACHINE INSTALLER procedure are i n the results section. MAGNESIUM Routine 11/05/2019 5:10 Results for this AM OFFICE MACHINE INSTALLER procedure are i n the results section. BASIC METABOLIC Routine 11/05/2019 5:10 Results for this PANEL (7) AM OFFICE MACHINE INSTALLER procedure are i n the results section. CBC W/PLT COUNT & Routine 11/05/2019 5:10 Result s for this AUTO DIFFERENTIAL AM OFFICE MACHINE INSTALLER procedure are in the results section. POCT-GLUCOSE METER Routine 11/04/2019 9:09 Resul ts for this PM OFFICE MACHINE INSTALLER procedure are i n the results section. XR CHEST 1 VIEW Routine 11/04/2019 6:50 Results for this PORTABLE/BEDSIDE PM OFFICE MACHINE INSTALLER procedure a re in the results section. TRANSFUSION SERVICE 11/04/2019 5:50 REPORT - SCAN PM OFFICE MACHINE INSTALLER POCT-GLUCOSE METER Routine 11/04/2019 5:48 Resul ts for this PM OFFICE MACHINE INSTALLER procedure are i n the results section. POCT-GLUCOSE METER Routine 11/04/2019 11:35 Resul ts for this AM OFFICE MACHINE INSTALLER procedure are i n the results section. HEMODIALYSIS Routine 11/04/2019 8:13 INPATIENT AM OFFICE MACHINE INSTALLER POCT-GLUCOSE METER Routine 11/04/2019 7:50 Resul ts for this AM OFFICE MACHINE INSTALLER procedure are i n the results section. (CELLAVISION MANUAL STAT 11/04/2019 7:19 Resu lts for this DIFF) AM OFFICE MACHINE INSTALLER procedure are i n the results section. (CELLAVISION MANUAL Routine 11/04/2019 7:19 Resu lts for this DIFF) AM OFFICE MACHINE INSTALLER procedure are i n the results section. CBC W/PLT COUNT & STAT 11/04/2019 7:19 Result s for this AUTO DIFFERENTIAL AM OFFICE MACHINE INSTALLER procedure are in the results section. CBC W/PLT COUNT & Routine 11/04/2019 7:19 Result s for this AUTO DIFFERENTIAL AM OFFICE MACHINE INSTALLER procedure are in the results section. BASIC METABOLIC STAT 11/04/2019 7:19 Results for this PANEL (7) AM OFFICE MACHINE INSTALLER procedure are i n the results section. CBC W/PLT COUNT & STAT 11/04/2019 7:19 Result s for this AUTO DIFFERENTIAL AM OFFICE MACHINE INSTALLER procedure are in the results section. MAGNESIUM Routine 11/04/2019 7:19 Results for this AM OFFICE MACHINE INSTALLER procedure are i n the results section. CBC W/PLT COUNT & Routine 11/04/2019 7:19 Result s for this AUTO DIFFERENTIAL AM OFFICE MACHINE INSTALLER procedure are in the results section. BASIC METABOLIC Routine 11/04/2019 7:19 Results for this PANEL (7) AM OFFICE MACHINE INSTALLER procedure are i n the results section. PREPARE Routine 11/03/2019 11:54 Results for this LEUKO-REDUCED RBC PM OFFICE MACHINE INSTALLER procedure are in the results section. POCT-GLUCOSE METER Routine 11/03/2019 9:19 Resul ts for this PM OFFICE MACHINE INSTALLER procedure are i n the results section. TRANSFUSION SERVICE 11/03/2019 5:51 REPORT - SCAN PM OFFICE MACHINE INSTALLER POCT-GLUCOSE METER Routine 11/03/2019 4:44 Resul ts for this PM OFFICE MACHINE INSTALLER procedure are i n the results section. POCT-GLUCOSE METER Routine 11/03/2019 12:42 Resul ts for this PM OFFICE MACHINE INSTALLER procedure are i n the results section. POCT-GLUCOSE METER Routine 11/03/2019 7:36 Resul ts for this AM OFFICE MACHINE INSTALLER procedure are i n the results section. XR CHEST 1 VIEW STAT 11/03/2019 6:37 Results for this PORTABLE/BEDSIDE AM OFFICE MACHINE INSTALLER procedure a re in the results section. HEMODIALYSIS Routine 11/03/2019 4:27 Results for this INPATIENT AM OFFICE MACHINE INSTALLER procedure are i n the results section. (CELLAVISION MANUAL Routine 11/03/2019 3:44 Resu lts for this DIFF) AM OFFICE MACHINE INSTALLER procedure are i n the results section. CBC W/PLT COUNT & Routine 11/03/2019 3:44 Result s for this AUTO DIFFERENTIAL AM OFFICE MACHINE INSTALLER procedure are in the results section. CALCIUM, IONIZED Routine 11/03/2019 3:44 Results for this AM OFFICE MACHINE INSTALLER procedure are i n the results section. PHOSPHORUS Routine 11/03/2019 3:44 Results for this AM OFFICE MACHINE INSTALLER procedure are i n the results section. MAGNESIUM Routine 11/03/2019 3:44 Results for this AM OFFICE MACHINE INSTALLER procedure are i n the results section. CBC W/PLT COUNT & Routine 11/03/2019 3:44 Result s for this AUTO DIFFERENTIAL AM OFFICE MACHINE INSTALLER procedure are in the results section. BASIC METABOLIC Routine 11/03/2019 3:44 Results for this PANEL (7) AM OFFICE MACHINE INSTALLER procedure are i n the results section. POCT-GLUCOSE METER Routine 11/02/2019 10:23 Resul ts for this PM OFFICE MACHINE INSTALLER procedure are i n the results section. HEMOGLOBIN AND STAT 11/02/2019 8:52 Results f or this HEMATOCRIT PM OFFICE MACHINE INSTALLER procedure are i n the results section. BLOOD GAS, ARTERIAL STAT 11/02/2019 8:52 Resu lts for this PM OFFICE MACHINE INSTALLER procedure are i n the results section. PHOSPHORUS STAT 11/02/2019 8:52 Results for this PM OFFICE MACHINE INSTALLER procedure are i n the results section. MAGNESIUM STAT 11/02/2019 8:52 Results for this PM OFFICE MACHINE INSTALLER procedure are i n the results section. BASIC METABOLIC STAT 11/02/2019 8:52 Results for this PANEL (7) PM OFFICE MACHINE INSTALLER procedure are i n the results section. XR CHEST 1 VIEW STAT 11/02/2019 8:30 Results for this PORTABLE/BEDSIDE PM OFFICE MACHINE INSTALLER procedure a re in the results section. TRANSFUSE Routine 11/02/2019 6:57 LEUKO-REDUCED RED PM OFFICE MACHINE INSTALLER BLOOD CELLS POCT-GLUCOSE METER Routine 11/02/2019 5:04 Resul ts for this PM OFFICE MACHINE INSTALLER procedure are i n the results section. TYPE AND SCREEN, Routine 11/02/2019 1:30 Results for this AUTOMATED PM OFFICE MACHINE INSTALLER procedure are i n the results section. POCT-GLUCOSE METER Routine 11/02/2019 11:53 Resul ts for this AM OFFICE MACHINE INSTALLER procedure are i n the results section. POCT-GLUCOSE METER Routine 11/02/2019 7:24 Resul ts for this AM OFFICE MACHINE INSTALLER procedure are i n the results section. XR CHEST 1 VIEW Routine 11/02/2019 3:45 Results for this PORTABLE/BEDSIDE AM OFFICE MACHINE INSTALLER procedure a re in the results section. CBC W/PLT COUNT & Routine 11/02/2019 2:36 Result s for this AUTO DIFFERENTIAL AM OFFICE MACHINE INSTALLER procedure are in the results section. CALCIUM, IONIZED Routine 11/02/2019 2:36 Results for this AM OFFICE MACHINE INSTALLER procedure are i n the results section. PHOSPHORUS Routine 11/02/2019 2:36 Results for this AM OFFICE MACHINE INSTALLER procedure are i n the results section. MAGNESIUM Routine 11/02/2019 2:36 Results for this AM OFFICE MACHINE INSTALLER procedure are i n the results section. CBC W/PLT COUNT & Routine 11/02/2019 2:36 Result s for this AUTO DIFFERENTIAL AM OFFICE MACHINE INSTALLER procedure are in the results section. BASIC METABOLIC Routine 11/02/2019 2:36 Results for this PANEL (7) AM OFFICE MACHINE INSTALLER procedure are i n the results section. POCT-GLUCOSE METER Routine 11/01/2019 11:00 Resul ts for this PM OFFICE MACHINE INSTALLER procedure are i n the results section. POCT-GLUCOSE METER Routine 11/01/2019 4:34 Resul ts for this PM OFFICE MACHINE INSTALLER procedure are i n the results section. MAGNESIUM Routine 11/01/2019 4:31 Results for this PM OFFICE MACHINE INSTALLER procedure are i n the results section. PHOSPHORUS Routine 11/01/2019 4:31 Results for this PM OFFICE MACHINE INSTALLER procedure are i n the results section. BASIC METABOLIC Routine 11/01/2019 4:31 Results for this PANEL (7) PM OFFICE MACHINE INSTALLER procedure are i n the results section. MAGNESIUM Routine 11/01/2019 1:09 Results for this PM OFFICE MACHINE INSTALLER procedure are i n the results section. PHOSPHORUS Routine 11/01/2019 1:09 Results for this PM OFFICE MACHINE INSTALLER procedure are i n the results section. BASIC METABOLIC Routine 11/01/2019 1:09 Results for this PANEL (7) PM OFFICE MACHINE INSTALLER procedure are i n the results section. CALCIUM, IONIZED Routine 11/01/2019 12:42 Results for this PM OFFICE MACHINE INSTALLER procedure are i n the results section. POCT-GLUCOSE METER Routine 11/01/2019 12:01 Resul ts for this PM OFFICE MACHINE INSTALLER procedure are i n the results section. SLED (SHIFT THERAPY) Routine 11/01/2019 11:35 Res ults for this AM OFFICE MACHINE INSTALLER procedure are i n the results section. POCT-GLUCOSE METER Routine 11/01/2019 7:26 Resul ts for this AM OFFICE MACHINE INSTALLER procedure are i n the results section. CBC (HEMOGRAM ONLY) Routine 11/01/2019 4:29 Resu lts for this AM OFFICE MACHINE INSTALLER procedure are i n the results section. BLOOD GAS, ARTERIAL Routine 11/01/2019 4:29 Resu lts for this AM OFFICE MACHINE INSTALLER procedure are i n the results section. BASIC METABOLIC Routine 11/01/2019 4:29 Results for this PANEL (7) AM OFFICE MACHINE INSTALLER procedure are i n the results section. PHOSPHORUS Routine 11/01/2019 4:29 Results for this AM OFFICE MACHINE INSTALLER procedure are i n the results section. MAGNESIUM Routine 11/01/2019 4:29 Results for this AM OFFICE MACHINE INSTALLER procedure are i n the results section. XR CHEST 1 VIEW Routine 11/01/2019 2:45 Results for this PORTABLE/BEDSIDE AM OFFICE MACHINE INSTALLER procedure a re in the results section. HEMOGLOBIN AND Routine 10/31/2019 10:54 Results f or this HEMATOCRIT PM OFFICE MACHINE INSTALLER procedure are i n the results section. POTASSIUM STAT 10/31/2019 10:54 Results for this PM OFFICE MACHINE INSTALLER procedure are i n the results section. GLUCOSE STAT 10/31/2019 10:54 Results for this PM OFFICE MACHINE INSTALLER procedure are i n the results section. MAGNESIUM STAT 10/31/2019 10:54 Results for this PM OFFICE MACHINE INSTALLER procedure are i n the results section. BASIC METABOLIC STAT 10/31/2019 10:54 Results for this PANEL (7) PM OFFICE MACHINE INSTALLER procedure are i n the results section. PHOSPHORUS STAT 10/31/2019 10:54 Results for this PM OFFICE MACHINE INSTALLER procedure are i n the results section. POCT-GLUCOSE METER Routine 10/31/2019 6:13 Resul ts for this PM OFFICE MACHINE INSTALLER procedure are i n the results section. POTASSIUM Routine 10/31/2019 4:36 Results for this PM OFFICE MACHINE INSTALLER procedure are i n the results section. POCT-GLUCOSE METER Routine 10/31/2019 12:34 Resul ts for this PM OFFICE MACHINE INSTALLER procedure are i n the results section. POCT-GLUCOSE METER Routine 10/31/2019 9:39 Resul ts for this AM OFFICE MACHINE INSTALLER procedure are i n the results section. PHOSPHORUS Routine 10/31/2019 9:36 Results for this AM OFFICE MACHINE INSTALLER procedure are i n the results section. MAGNESIUM Routine 10/31/2019 9:36 Results for this AM OFFICE MACHINE INSTALLER procedure are i n the results section. POTASSIUM Routine 10/31/2019 9:36 Results for this AM OFFICE MACHINE INSTALLER procedure are i n the results section. XR CHEST 1 VIEW Routine 10/31/2019 5:02 Results for this PORTABLE/BEDSIDE AM OFFICE MACHINE INSTALLER procedure a re in the results section. PROTHROMBIN TIME/INR STAT 10/31/2019 3:31 Res ults for this AM OFFICE MACHINE INSTALLER procedure are i n the results section. PT/APTT STAT 10/31/2019 3:31 Results for this AM OFFICE MACHINE INSTALLER procedure are i n the results section. MAGNESIUM Routine 10/31/2019 3:31 Results for this AM OFFICE MACHINE INSTALLER procedure are i n the results section. PHOSPHORUS Routine 10/31/2019 3:31 Results for this AM OFFICE MACHINE INSTALLER procedure are i n the results section. CBC (HEMOGRAM ONLY) Routine 10/31/2019 3:31 Resu lts for this AM OFFICE MACHINE INSTALLER procedure are i n the results section. BLOOD GAS, ARTERIAL Routine 10/31/2019 3:31 Resu lts for this AM OFFICE MACHINE INSTALLER procedure are i n the results section. BASIC METABOLIC Routine 10/31/2019 3:31 Results for this PANEL (7) AM OFFICE MACHINE INSTALLER procedure are i n the results section. POTASSIUM Routine 10/31/2019 12:46 Results for this AM OFFICE MACHINE INSTALLER procedure are i n the results section. POCT-GLUCOSE METER Routine 10/31/2019 12:42 Resul ts for this AM OFFICE MACHINE INSTALLER procedure are i n the results section. PHOSPHORUS Routine 10/30/2019 7:58 Results for this PM OFFICE MACHINE INSTALLER procedure are i n the results section. MAGNESIUM Routine 10/30/2019 7:58 Results for this PM OFFICE MACHINE INSTALLER procedure are i n the results section. POTASSIUM Routine 10/30/2019 7:58 Results for this PM OFFICE MACHINE INSTALLER procedure are i n the results section. HEMODIALYSIS Routine 10/30/2019 6:33 Results for this INPATIENT PM OFFICE MACHINE INSTALLER procedure are i n the results section. TRANSFUSION SERVICE 10/30/2019 6:05 REPORT - SCAN PM OFFICE MACHINE INSTALLER VASCULAR DIAGRAM 10/30/2019 5:50 -SCAN PM OFFICE MACHINE INSTALLER RHYTHM STRIP - SCAN 10/30/2019 3:20 PM OFFICE MACHINE INSTALLER POCT-GLUCOSE METER Routine 10/30/2019 1:42 Resul ts for this PM OFFICE MACHINE INSTALLER procedure are i n the results section. BLOOD GAS, ARTERIAL Routine 10/30/2019 10:46 Resu lts for this AM OFFICE MACHINE INSTALLER procedure are i n the results section. POCT-GLUCOSE METER Routine 10/30/2019 9:55 Resul ts for this AM OFFICE MACHINE INSTALLER procedure are i n the results section. PHOSPHORUS Routine 10/30/2019 9:37 Results for this AM OFFICE MACHINE INSTALLER procedure are i n the results section. MAGNESIUM Routine 10/30/2019 9:37 Results for this AM OFFICE MACHINE INSTALLER procedure are i n the results section. POTASSIUM Routine 10/30/2019 9:37 Results for this AM OFFICE MACHINE INSTALLER procedure are i n the results section. POCT-GLUCOSE METER Routine 10/30/2019 6:27 Resul ts for this AM OFFICE MACHINE INSTALLER procedure are i n the results section. MAGNESIUM Routine 10/30/2019 4:19 Results for this AM OFFICE MACHINE INSTALLER procedure are i n the results section. CBC (HEMOGRAM ONLY) Routine 10/30/2019 4:19 Resu lts for this AM OFFICE MACHINE INSTALLER procedure are i n the results section. BASIC METABOLIC Routine 10/30/2019 4:19 Results for this PANEL (7) AM OFFICE MACHINE INSTALLER procedure are i n the results section. PHOSPHORUS Routine 10/30/2019 4:19 Results for this AM OFFICE MACHINE INSTALLER procedure are i n the results section. BLOOD GAS, ARTERIAL STAT 10/30/2019 4:19 Resu lts for this AM OFFICE MACHINE INSTALLER procedure are i n the results section. XR CHEST 1 VIEW Routine 10/30/2019 3:29 Results for this PORTABLE/BEDSIDE AM OFFICE MACHINE INSTALLER procedure a re in the results section. POCT-GLUCOSE METER Routine 10/30/2019 3:13 Resul ts for this AM OFFICE MACHINE INSTALLER procedure are i n the results section. POTASSIUM Routine 10/30/2019 1:04 Results for this AM OFFICE MACHINE INSTALLER procedure are i n the results section. POCT-GLUCOSE METER Routine 10/30/2019 1:02 Resul ts for this AM OFFICE MACHINE INSTALLER procedure are i n the results section. PREPARE PLATELETS STAT 10/29/2019 11:54 Result s for this PM OFFICE MACHINE INSTALLER procedure are i n the results section. PREPARE PLATELETS STAT 10/29/2019 11:54 Result s for this PM OFFICE MACHINE INSTALLER procedure are i n the results section. PREPARE RBC STAT 10/29/2019 11:54 Results for this PM OFFICE MACHINE INSTALLER procedure are i n the results section. POCT-GLUCOSE METER Routine 10/29/2019 11:49 Resul ts for this PM OFFICE MACHINE INSTALLER procedure are i n the results section. POCT-GLUCOSE METER Routine 10/29/2019 9:14 Resul ts for this PM OFFICE MACHINE INSTALLER procedure are i n the results section. HGB/HCT (H&H) - STAT STAT 10/29/2019 7:36 Res ults for this LAB PM OFFICE MACHINE INSTALLER procedure are i n the results section. GLUCOSE-STAT LAB STAT 10/29/2019 7:36 Results for this PM OFFICE MACHINE INSTALLER procedure are i n the results section. POTASSIUM-STAT LAB STAT 10/29/2019 7:36 Resul ts for this PM OFFICE MACHINE INSTALLER procedure are i n the results section. SODIUM NA-STAT LAB STAT 10/29/2019 7:36 Resul ts for this PM OFFICE MACHINE INSTALLER procedure are i n the results section. BLOOD GAS, ARTERIAL STAT 10/29/2019 7:36 Resu lts for this PM OFFICE MACHINE INSTALLER procedure are i n the results section. LACTIC ACID, STAT 10/29/2019 7:36 Results for this ARTERIAL PM OFFICE MACHINE INSTALLER procedure are i n the results section. CALCIUM, IONIZED STAT 10/29/2019 7:36 Results for this PM OFFICE MACHINE INSTALLER procedure are i n the results section. RRL CRITICAL LABS STAT 10/29/2019 7:36 Result s for this (ABG,NA,K,H&H,GLUCOS PM OFFICE MACHINE INSTALLER procedu re are in E) the results section. TRANSFUSION SERVICE 10/29/2019 6:56 REPORT - SCAN PM OFFICE MACHINE INSTALLER BLOOD GAS, ARTERIAL Routine 10/29/2019 4:43 Resu lts for this PM OFFICE MACHINE INSTALLER procedure are i n the results section. POTASSIUM Routine 10/29/2019 4:43 Results for this PM OFFICE MACHINE INSTALLER procedure are i n the results section. POCT-GLUCOSE METER Routine 10/29/2019 4:25 Resul ts for this PM OFFICE MACHINE INSTALLER procedure are i n the results section. BLOOD GAS, ARTERIAL STAT 10/29/2019 11:47 Resu lts for this AM OFFICE MACHINE INSTALLER procedure are i n the results section. POTASSIUM Routine 10/29/2019 11:43 Results for this AM OFFICE MACHINE INSTALLER procedure are i n the results section. POCT-GLUCOSE METER Routine 10/29/2019 11:12 Resul ts for this AM OFFICE MACHINE INSTALLER procedure are i n the results section. PHOSPHORUS Routine 10/29/2019 8:17 Results for this AM OFFICE MACHINE INSTALLER procedure are i n the results section. MAGNESIUM Routine 10/29/2019 8:17 Results for this AM OFFICE MACHINE INSTALLER procedure are i n the results section. POTASSIUM Routine 10/29/2019 8:17 Results for this AM OFFICE MACHINE INSTALLER procedure are i n the results section. POCT-GLUCOSE METER Routine 10/29/2019 6:15 Resul ts for this AM OFFICE MACHINE INSTALLER procedure are i n the results section. POCT-GLUCOSE METER Routine 10/29/2019 4:25 Resul ts for this AM OFFICE MACHINE INSTALLER procedure are i n the results section. XR CHEST 1 VIEW Routine 10/29/2019 3:53 Results for this PORTABLE/BEDSIDE AM OFFICE MACHINE INSTALLER procedure a re in the results section. CALCIUM, IONIZED Routine 10/29/2019 2:43 Results for this AM OFFICE MACHINE INSTALLER procedure are i n the results section. PT/APTT Routine 10/29/2019 2:35 Results for this AM OFFICE MACHINE INSTALLER procedure are i n the results section. PROTHROMBIN TIME/INR Routine 10/29/2019 2:35 Res ults for this AM OFFICE MACHINE INSTALLER procedure are i n the results section. BLOOD GAS, ARTERIAL Routine 10/29/2019 2:35 Resu lts for this AM OFFICE MACHINE INSTALLER procedure are i n the results section. GLUCOSE-STAT LAB Routine 10/29/2019 2:35 Results for this AM OFFICE MACHINE INSTALLER procedure are i n the results section. LACTIC ACID, Routine 10/29/2019 2:34 Results for this ARTERIAL AM OFFICE MACHINE INSTALLER procedure are i n the results section. OXYGEN SATURATION, Routine 10/29/2019 2:34 Resul ts for this MEASURED AM OFFICE MACHINE INSTALLER procedure are i n the results section. CBC (HEMOGRAM ONLY) Routine 10/29/2019 2:34 Resu lts for this AM OFFICE MACHINE INSTALLER procedure are i n the results section. PHOSPHORUS Routine 10/29/2019 2:34 Results for this AM OFFICE MACHINE INSTALLER procedure are i n the results section. MAGNESIUM Routine 10/29/2019 2:34 Results for this AM OFFICE MACHINE INSTALLER procedure are i n the results section. BASIC METABOLIC Routine 10/29/2019 2:34 Results for this PANEL (7) AM OFFICE MACHINE INSTALLER procedure are i n the results section. POCT-GLUCOSE METER Routine 10/29/2019 12:17 Resul ts for this AM OFFICE MACHINE INSTALLER procedure are i n the results section. POCT-GLUCOSE METER Routine 10/28/2019 9:52 Resul ts for this PM OFFICE MACHINE INSTALLER procedure are i n the results section. PHOSPHORUS Routine 10/28/2019 9:45 Results for this PM OFFICE MACHINE INSTALLER procedure are i n the results section. MAGNESIUM Routine 10/28/2019 9:45 Results for this PM OFFICE MACHINE INSTALLER procedure are i n the results section. POTASSIUM Routine 10/28/2019 9:45 Results for this PM OFFICE MACHINE INSTALLER procedure are i n the results section. LACTIC ACID, STAT 10/28/2019 9:45 Results for this ARTERIAL PM OFFICE MACHINE INSTALLER procedure are i n the results section. POCT-GLUCOSE METER Routine 10/28/2019 7:30 Resul ts for this PM OFFICE MACHINE INSTALLER procedure are i n the results section. POCT-GLUCOSE METER Routine 10/28/2019 6:21 Resul ts for this PM OFFICE MACHINE INSTALLER procedure are i n the results section. XR CHEST 1 VIEW STAT 10/28/2019 5:21 Results for this PORTABLE/BEDSIDE PM OFFICE MACHINE INSTALLER procedure a re in the results section. CBC W/PLT COUNT & Routine 10/28/2019 4:55 Result s for this AUTO DIFFERENTIAL PM OFFICE MACHINE INSTALLER procedure are in the results section. PREPARE PLASMA STAT 10/28/2019 4:55 Results f or this PM OFFICE MACHINE INSTALLER procedure are i n the results section. CBC W/PLT COUNT & STAT Add-on 10/28/2019 4:55 Result s for this AUTO DIFFERENTIAL PM OFFICE MACHINE INSTALLER procedure are in the results section. PHOSPHORUS STAT Add-on 10/28/2019 4:55 Results for this PM OFFICE MACHINE INSTALLER procedure are i n the results section. HGB/HCT (H&H) - STAT STAT 10/28/2019 4:55 Res ults for this LAB PM OFFICE MACHINE INSTALLER procedure are i n the results section. GLUCOSE-STAT LAB STAT 10/28/2019 4:55 Results for this PM OFFICE MACHINE INSTALLER procedure are i n the results section. POTASSIUM-STAT LAB STAT 10/28/2019 4:55 Resul ts for this PM OFFICE MACHINE INSTALLER procedure are i n the results section. SODIUM NA-STAT LAB STAT 10/28/2019 4:55 Resul ts for this PM OFFICE MACHINE INSTALLER procedure are i n the results section. OXYGEN SATURATION, STAT 10/28/2019 4:55 Resul ts for this MEASURED PM OFFICE MACHINE INSTALLER procedure are i n the results section. BLOOD GAS, ARTERIAL STAT 10/28/2019 4:55 Resu lts for this PM OFFICE MACHINE INSTALLER procedure are i n the results section. RRL CRITICAL LABS STAT 10/28/2019 4:55 Result s for this (ABG,NA,K,H&H,GLUCOS PM OFFICE MACHINE INSTALLER procedu re are in E) the results section. PLATELET COUNT STAT 10/28/2019 4:55 Results f or this PM OFFICE MACHINE INSTALLER procedure are i n the results section. FIBRINOGEN STAT 10/28/2019 4:55 Results for this PM OFFICE MACHINE INSTALLER procedure are i n the results section. APTT STAT 10/28/2019 4:55 Results for this PM OFFICE MACHINE INSTALLER procedure are i n the results section. PROTHROMBIN TIME/INR STAT 10/28/2019 4:55 Res ults for this PM OFFICE MACHINE INSTALLER procedure are i n the results section. LACTIC ACID, STAT 10/28/2019 4:55 Results for this ARTERIAL PM OFFICE MACHINE INSTALLER procedure are i n the results section. CALCIUM, IONIZED STAT 10/28/2019 4:55 Results for this PM OFFICE MACHINE INSTALLER procedure are i n the results section. MAGNESIUM STAT 10/28/2019 4:55 Results for this PM OFFICE MACHINE INSTALLER procedure are i n the results section. BASIC METABOLIC STAT 10/28/2019 4:55 Results for this PANEL (7) PM OFFICE MACHINE INSTALLER procedure are i n the results section. HGB/HCT (H&H) - STAT STAT 10/28/2019 3:34 Res ults for this LAB PM OFFICE MACHINE INSTALLER procedure are i n the results section. GLUCOSE-STAT LAB STAT 10/28/2019 3:34 Results for this PM OFFICE MACHINE INSTALLER procedure are i n the results section. POTASSIUM-STAT LAB STAT 10/28/2019 3:34 Resul ts for this PM OFFICE MACHINE INSTALLER procedure are i n the results section. SODIUM NA-STAT LAB STAT 10/28/2019 3:34 Resul ts for this PM OFFICE MACHINE INSTALLER procedure are i n the results section. BLOOD GAS, ARTERIAL STAT 10/28/2019 3:34 Resu lts for this PM OFFICE MACHINE INSTALLER procedure are i n the results section. CALCIUM, IONIZED STAT 10/28/2019 3:34 Results for this PM OFFICE MACHINE INSTALLER procedure are i n the results section. RRL CRITICAL LABS STAT 10/28/2019 3:34 Result s for this (ABG,NA,K,H&H,GLUCOS PM OFFICE MACHINE INSTALLER procedu re are in E) the results section. TRANSFUSE Routine 10/28/2019 3:21 LEUKO-REDUCED RED PM OFFICE MACHINE INSTALLER BLOOD CELLS TRANSFUSE Routine 10/28/2019 3:03 LEUKO-REDUCED PM OFFICE MACHINE INSTALLER PLATELETS HGB/HCT (H&H) - STAT STAT 10/28/2019 2:58 Res ults for this LAB PM OFFICE MACHINE INSTALLER procedure are i n the results section. GLUCOSE-STAT LAB STAT 10/28/2019 2:58 Results for this PM OFFICE MACHINE INSTALLER procedure are i n the results section. POTASSIUM-STAT LAB STAT 10/28/2019 2:58 Resul ts for this PM OFFICE MACHINE INSTALLER procedure are i n the results section. SODIUM NA-STAT LAB STAT 10/28/2019 2:58 Resul ts for this PM OFFICE MACHINE INSTALLER procedure are i n the results section. BLOOD GAS, ARTERIAL STAT 10/28/2019 2:58 Resu lts for this PM OFFICE MACHINE INSTALLER procedure are i n the results section. CALCIUM, IONIZED STAT 10/28/2019 2:58 Results for this PM OFFICE MACHINE INSTALLER procedure are i n the results section. RRL CRITICAL LABS STAT 10/28/2019 2:58 Result s for this (ABG,NA,K,H&H,GLUCOS PM OFFICE MACHINE INSTALLER procedu re are in E) the results section. TRANSFUSE Routine 10/28/2019 2:48 LEUKO-REDUCED RED PM OFFICE MACHINE INSTALLER BLOOD CELLS POCT-ACT Routine 10/28/2019 2:35 Results for this PM OFFICE MACHINE INSTALLER procedure are i n the results section. TRANSFUSE Routine 10/28/2019 2:33 LEUKO-REDUCED PM OFFICE MACHINE INSTALLER PLATELETS HGB/HCT (H&H) - STAT STAT 10/28/2019 2:26 Res ults for this LAB PM OFFICE MACHINE INSTALLER procedure are i n the results section. GLUCOSE-STAT LAB STAT 10/28/2019 2:26 Results for this PM OFFICE MACHINE INSTALLER procedure are i n the results section. POTASSIUM-STAT LAB STAT 10/28/2019 2:26 Resul ts for this PM OFFICE MACHINE INSTALLER procedure are i n the results section. SODIUM NA-STAT LAB STAT 10/28/2019 2:26 Resul ts for this PM OFFICE MACHINE INSTALLER procedure are i n the results section. BLOOD GAS, ARTERIAL STAT 10/28/2019 2:26 Resu lts for this PM OFFICE MACHINE INSTALLER procedure are i n the results section. PLATELET COUNT STAT 10/28/2019 2:26 Results f or this PM OFFICE MACHINE INSTALLER procedure are i n the results section. FIBRINOGEN STAT 10/28/2019 2:26 Results for this PM OFFICE MACHINE INSTALLER procedure are i n the results section. APTT STAT 10/28/2019 2:26 Results for this PM OFFICE MACHINE INSTALLER procedure are i n the results section. PROTHROMBIN TIME/INR STAT 10/28/2019 2:26 Res ults for this PM OFFICE MACHINE INSTALLER procedure are i n the results section. CALCIUM, IONIZED STAT 10/28/2019 2:26 Results for this PM OFFICE MACHINE INSTALLER procedure are i n the results section. RRL CRITICAL LABS STAT 10/28/2019 2:26 Result s for this (ABG,NA,K,H&H,GLUCOS PM OFFICE MACHINE INSTALLER procedu re are in E) the results section. CBC W/PLT COUNT & Routine 10/28/2019 2:26 Result s for this AUTO DIFFERENTIAL PM OFFICE MACHINE INSTALLER procedure are in the results section. CBC W/PLT COUNT & STAT Add-on 10/28/2019 2:26 Result s for this AUTO DIFFERENTIAL PM OFFICE MACHINE INSTALLER procedure are in the results section. POCT-ACT Routine 10/28/2019 1:55 Results for this PM OFFICE MACHINE INSTALLER procedure are i n the results section. HGB/HCT (H&H) - STAT STAT 10/28/2019 1:53 Res ults for this LAB PM OFFICE MACHINE INSTALLER procedure are i n the results section. GLUCOSE-STAT LAB STAT 10/28/2019 1:53 Results for this PM OFFICE MACHINE INSTALLER procedure are i n the results section. POTASSIUM-STAT LAB STAT 10/28/2019 1:53 Resul ts for this PM OFFICE MACHINE INSTALLER procedure are i n the results section. SODIUM NA-STAT LAB STAT 10/28/2019 1:53 Resul ts for this PM OFFICE MACHINE INSTALLER procedure are i n the results section. BLOOD GAS, ARTERIAL STAT 10/28/2019 1:53 Resu lts for this PM OFFICE MACHINE INSTALLER procedure are i n the results section. RRL CRITICAL LABS STAT 10/28/2019 1:53 Result s for this (ABG,NA,K,H&H,GLUCOS PM OFFICE MACHINE INSTALLER procedu re are in E) the results section. POCT-ACT Routine 10/28/2019 1:26 Results for this PM OFFICE MACHINE INSTALLER procedure are i n the results section. HGB/HCT (H&H) - STAT STAT 10/28/2019 1:21 Res ults for this LAB PM OFFICE MACHINE INSTALLER procedure are i n the results section. GLUCOSE-STAT LAB STAT 10/28/2019 1:21 Results for this PM OFFICE MACHINE INSTALLER procedure are i n the results section. POTASSIUM-STAT LAB STAT 10/28/2019 1:21 Resul ts for this PM OFFICE MACHINE INSTALLER procedure are i n the results section. SODIUM NA-STAT LAB STAT 10/28/2019 1:21 Resul ts for this PM OFFICE MACHINE INSTALLER procedure are i n the results section. BLOOD GAS, ARTERIAL STAT 10/28/2019 1:21 Resu lts for this PM OFFICE MACHINE INSTALLER procedure are i n the results section. RRL CRITICAL LABS STAT 10/28/2019 1:21 Result s for this (ABG,NA,K,H&H,GLUCOS PM OFFICE MACHINE INSTALLER procedu re are in E) the results section. POCT-ACT Routine 10/28/2019 12:54 Results for this PM OFFICE MACHINE INSTALLER procedure are i n the results section. LACTIC ACID, STAT 10/28/2019 12:52 Results for this ARTERIAL PM OFFICE MACHINE INSTALLER procedure are i n the results section. HGB/HCT (H&H) - STAT STAT 10/28/2019 12:51 Res ults for this LAB PM OFFICE MACHINE INSTALLER procedure are i n the results section. GLUCOSE-STAT LAB STAT 10/28/2019 12:51 Results for this PM OFFICE MACHINE INSTALLER procedure are i n the results section. POTASSIUM-STAT LAB STAT 10/28/2019 12:51 Resul ts for this PM OFFICE MACHINE INSTALLER procedure are i n the results section. SODIUM NA-STAT LAB STAT 10/28/2019 12:51 Resul ts for this PM OFFICE MACHINE INSTALLER procedure are i n the results section. BLOOD GAS, ARTERIAL STAT 10/28/2019 12:51 Resu lts for this PM OFFICE MACHINE INSTALLER procedure are i n the results section. RRL CRITICAL LABS STAT 10/28/2019 12:51 Result s for this (ABG,NA,K,H&H,GLUCOS PM OFFICE MACHINE INSTALLER procedu re are in E) the results section. POCT-ACT Routine 10/28/2019 12:33 Results for this PM OFFICE MACHINE INSTALLER procedure are i n the results section. HGB/HCT (H&H) - STAT STAT 10/28/2019 12:31 Res ults for this LAB PM OFFICE MACHINE INSTALLER procedure are i n the results section. GLUCOSE-STAT LAB STAT 10/28/2019 12:31 Results for this PM OFFICE MACHINE INSTALLER procedure are i n the results section. POTASSIUM-STAT LAB STAT 10/28/2019 12:31 Resul ts for this PM OFFICE MACHINE INSTALLER procedure are i n the results section. SODIUM NA-STAT LAB STAT 10/28/2019 12:31 Resul ts for this PM OFFICE MACHINE INSTALLER procedure are i n the results section. BLOOD GAS, ARTERIAL STAT 10/28/2019 12:31 Resu lts for this PM OFFICE MACHINE INSTALLER procedure are i n the results section. RRL CRITICAL LABS STAT 10/28/2019 12:31 Result s for this (ABG,NA,K,H&H,GLUCOS PM OFFICE MACHINE INSTALLER procedu re are in E) the results section. SURGICALLY OBTAINED Routine 10/28/2019 12:13 Resu lts for this CULTURE + GRAM STAIN PM OFFICE MACHINE INSTALLER procedu re are in the results section. FUNGUS CULTURE + Routine 10/28/2019 12:13 Results for this SMEAR PM OFFICE MACHINE INSTALLER procedure are i n the results section. ANAEROBIC CULTURE Routine 10/28/2019 12:13 Result s for this PM OFFICE MACHINE INSTALLER procedure are i n the results section. AFB CULTURE + SMEAR Routine 10/28/2019 12:13 Resu lts for this (NON-SPUTUM) PM OFFICE MACHINE INSTALLER procedure are i n the results section. POCT-ACT Routine 10/28/2019 12:02 Results for this PM OFFICE MACHINE INSTALLER procedure are i n the results section. HGB/HCT (H&H) - STAT STAT 10/28/2019 11:59 Res ults for this LAB AM OFFICE MACHINE INSTALLER procedure are i n the results section. GLUCOSE-STAT LAB STAT 10/28/2019 11:59 Results for this AM OFFICE MACHINE INSTALLER procedure are i n the results section. POTASSIUM-STAT LAB STAT 10/28/2019 11:59 Resul ts for this AM OFFICE MACHINE INSTALLER procedure are i n the results section. SODIUM NA-STAT LAB STAT 10/28/2019 11:59 Resul ts for this AM OFFICE MACHINE INSTALLER procedure are i n the results section. BLOOD GAS, ARTERIAL STAT 10/28/2019 11:59 Resu lts for this AM OFFICE MACHINE INSTALLER procedure are i n the results section. RRL CRITICAL LABS STAT 10/28/2019 11:59 Result s for this (ABG,NA,K,H&H,GLUCOS AM OFFICE MACHINE INSTALLER procedu re are in E) the results section. POCT-ACT Routine 10/28/2019 11:36 Results for this AM OFFICE MACHINE INSTALLER procedure are i n the results section. ANESTHESIA STEPHANIE Routine 10/28/2019 9:31 Results f or this AM OFFICE MACHINE INSTALLER procedure are i n the results section. HGB/HCT (H&H) - STAT STAT 10/28/2019 8:27 Res ults for this LAB AM OFFICE MACHINE INSTALLER procedure are i n the results section. GLUCOSE-STAT LAB STAT 10/28/2019 8:27 Results for this AM OFFICE MACHINE INSTALLER procedure are i n the results section. POTASSIUM-STAT LAB STAT 10/28/2019 8:27 Resul ts for this AM OFFICE MACHINE INSTALLER procedure are i n the results section. SODIUM NA-STAT LAB STAT 10/28/2019 8:27 Resul ts for this AM OFFICE MACHINE INSTALLER procedure are i n the results section. BLOOD GAS, ARTERIAL STAT 10/28/2019 8:27 Resu lts for this AM OFFICE MACHINE INSTALLER procedure are i n the results section. RRL CRITICAL LABS STAT 10/28/2019 8:27 Result s for this (ABG,NA,K,H&H,GLUCOS AM OFFICE MACHINE INSTALLER procedu re are in E) the results section. ENDOSCOPIC 10/28/2019 7:25 Coronary artery HARVEST,VEIN AM OFFICE MACHINE INSTALLER disease, angina presence unspecified, unspecified vessel or lesion type, unspecified whether creek or transplanted heart Case Notes 3 HRS Special Needs (ICU BED) STEPHANIE,3D 10/28/2019 7:25 AM OFFICE MACHINE INSTALLER Coronary artery d isease, angina presence unspecified, unspecified ves janusz or lesion type, unspecified whether creek o r transplanted heart Case Notes 3 HRS Special Needs (ICU BED) BYPASS,AORTO CORONARY DESMOND/SVG 10/28/2019 7:25 AM OFFICE MACHINE INSTALLER Coronary artery disease, angina presence unspecified, unspecified vessel or lesion type, unspecified whether creek or transplanted heart Case Notes 3 HRS Special Needs (ICU BED) STERNOTOMY 10/28/2019 7:25 AM OFFICE MACHINE INSTALLER Coronary artery d isease, angina presence unspecified, unspecified ves janusz or lesion type, unspecified whether na tive or transplanted heart Case Notes 3 HRS Special Needs (ICU BED) ECG 12-LEAD Routine 10/28/2019 6:41 AM OFFICE MACHINE INSTALLER Procedure Note - Interface, External Ris In - 10/28/2019 5:40 AM OFFICE MACHINE INSTALLER Ventricular Rate 64 BPM Atrial Rate 64 BPM P-R Interval 80 ms QRS Duration 122 ms Q-T Interval 434 ms QTC Calculation(Bazett) 447 ms P [place] -81 degrees R [place] -65 degrees T [place] 81 degrees Unusual P axis and short DE, probable junctional rhythm Left axis deviation RSR' or QR pattern in V1 sug gests right ventricular conduction delay Inferior infarct , age undet ermined Anterolateral infarct (cited on or before 27-OCT-2019) Abnormal ECG When compared with ECG of 16:21, Junctional rhythm has replac ed Sinus rhythm RSR' pattern in V1 has repla flor (RBBB and left anterior fascicular block) Inferior infarct is now Pres ent Questionable change in initi al forces of Anterior leads ECG 12-LEAD Routine 10/28/2019 6:41 AM OFFICE MACHINE INSTALLER Resu lts for this procedure are i n the results section . PT/APTT Routine 10/28/2019 6:20 AM OFFICE MACHINE INSTALLER Resu lts for this procedure are i n the results section . CBC W/PLT COUNT & AUTO Routine 10/28/2019 4:27 AM OFFICE MACHINE INSTALLER Results for this DIFFERENTIAL procedure are i n the results section . MAGNESIUM Routine 10/28/2019 4:27 AM OFFICE MACHINE INSTALLER Resu lts for this procedure are i n the results section . CBC W/PLT COUNT & AUTO Routine 10/28/2019 4:27 AM OFFICE MACHINE INSTALLER Results for this DIFFERENTIAL procedure are i n the results section . PROTHROMBIN TIME/INR Routine 10/28/2019 4:27 AM OFFICE MACHINE INSTALLER Results for this procedure are i n the results section . COMPREHENSIVE METABOLIC Routine 10/28/2019 4:27 AM OFFICE MACHINE INSTALLER Results for this PANEL procedure are i n the results section . TYPE AND SCREEN, AUTOMATED GLORIA 10/28/2019 12:15 AM OFFICE MACHINE INSTALLER Results for this procedure are i n the results section . POCT-GLUCOSE METER Routine 10/27/2019 10:10 PM OFFICE MACHINE INSTALLER Results for this procedure are i n the results section . POCT-GLUCOSE METER Routine 10/27/2019 5:06 PM OFFICE MACHINE INSTALLER Results for this procedure are i n the results section . ECG 12-LEAD Routine 10/27/2019 4:21 PM OFFICE MACHINE INSTALLER Procedure Note - Interface, External Ris In - 10/27/2019 3:21 PM OFFICE MACHINE INSTALLER Ventricular Rate 62 BPM Atrial Rate 62 BPM P-R Interval 318 ms QRS Duration 146 ms Q-T Interval 458 ms QTC Calculation(Bazett) 464 ms P [place] 26 degrees R [place] -58 degrees T [place] 85 degrees Sinus rhythm with 1st degree A-V block Right bundle branch block Left anterior fascicular blo ck Bifascicular block Possible Lateral infarct , a ge undetermined Abnormal ECG When compared with ECG of 08:45, No significant change was fo und ECG 12-LEAD Routine 10/27/2019 4:21 PM OFFICE MACHINE INSTALLER Resu lts for this procedure are i n the results section . POCT-GLUCOSE METER Routine 10/27/2019 12:32 PM OFFICE MACHINE INSTALLER Results for this procedure are i n the results section . CTA CHEST GLORIA 10/27/2019 11:23 AM OFFICE MACHINE INSTALLER Resu lts for this procedure are i n the results section . APTT Routine 10/27/2019 8:29 AM OFFICE MACHINE INSTALLER Resu lts for this procedure are i n the results section . POCT-GLUCOSE METER Routine 10/27/2019 7:43 AM OFFICE MACHINE INSTALLER Results for this procedure are i n the results section . CBC (HEMOGRAM ONLY) Routine 10/27/2019 3:44 AM OFFICE MACHINE INSTALLER Results for this procedure are i n the results section . BASIC METABOLIC PANEL (7) Routine 10/27/2019 3:44 AM OFFICE MACHINE INSTALLER Results for this procedure are i n the results section . APTT Routine 10/27/2019 1:35 AM OFFICE MACHINE INSTALLER Resu lts for this procedure are i n the results section . POCT-GLUCOSE METER Routine 10/26/2019 10:22 PM OFFICE MACHINE INSTALLER Results for this procedure are i n the results section . APTT Routine 10/26/2019 5:47 PM OFFICE MACHINE INSTALLER Resu lts for this procedure are i n the results section . POCT-GLUCOSE METER Routine 10/26/2019 4:54 PM OFFICE MACHINE INSTALLER Results for this procedure are i n the results section . APTT Routine 10/26/2019 4:51 PM OFFICE MACHINE INSTALLER Resu lts for this procedure are i n the results section . POCT-GLUCOSE METER Routine 10/26/2019 12:15 PM OFFICE MACHINE INSTALLER Results for this procedure are i n the results section . APTT Routine 10/26/2019 9:58 AM OFFICE MACHINE INSTALLER Resu lts for this procedure are i n the results section . ECG 12-LEAD Routine 10/26/2019 8:45 AM OFFICE MACHINE INSTALLER Procedure Note - Interface, External Ris In - 10/26/2019 7:21 PM OFFICE MACHINE INSTALLER Ventricular Rate 62 BPM Atrial Rate 62 BPM P-R Interval 314 ms QRS Duration 148 ms Q-T Interval 464 ms QTC Calculation(Bazett) 470 ms P [place] 28 degrees R [place] -60 degrees T [place] 80 degrees Sinus rhythm with 1st degree A-V block Right bundle branch block Left anterior fascicular blo ck Bifascicular block Abnormal ECG When compared with ECG of 08:26, No significant change was fo und ECG 12-LEAD Routine 10/26/2019 8:45 AM OFFICE MACHINE INSTALLER Resu lts for this procedure are i n the results section . POCT-GLUCOSE METER Routine 10/26/2019 7:50 AM OFFICE MACHINE INSTALLER Results for this procedure are i n the results section . APTT Routine 10/26/2019 3:16 AM OFFICE MACHINE INSTALLER Resu lts for this procedure are i n the results section . CBC (HEMOGRAM ONLY) Routine 10/26/2019 3:16 AM OFFICE MACHINE INSTALLER Results for this procedure are i n the results section . BASIC METABOLIC PANEL (7) Routine 10/26/2019 3:16 AM OFFICE MACHINE INSTALLER Results for this procedure are i n the results section . POCT-GLUCOSE METER Routine 10/25/2019 9:32 PM OFFICE MACHINE INSTALLER Results for this procedure are i n the results section . ECHOCARDIOGRAM REPORT - SCAN 10/25/2019 9:22 PM OFFICE MACHINE INSTALLER APTT Routine 10/25/2019 7:00 PM OFFICE MACHINE INSTALLER Resu lts for this procedure are i n the results section . POCT-GLUCOSE METER Routine 10/25/2019 4:46 PM OFFICE MACHINE INSTALLER Results for this procedure are i n the results section . APTT Routine 10/25/2019 4:26 PM OFFICE MACHINE INSTALLER Resu lts for this procedure are i n the results section . POCT-GLUCOSE METER Routine 10/25/2019 1:47 PM OFFICE MACHINE INSTALLER Results for this procedure are i n the results section . 2D ECHO W/ DOPPLER STAT 10/25/2019 1:30 PM OFFICE MACHINE INSTALLER Results for this (CW/PW/COLOR) procedure are in the results section . RHYTHM STRIP - SCAN 10/25/2019 10:51 AM OFFICE MACHINE INSTALLER POCT-GLUCOSE METER Routine 10/25/2019 10:04 AM OFFICE MACHINE INSTALLER Results for this procedure are i n the results section . ECG 12-LEAD Routine 10/25/2019 8:26 AM OFFICE MACHINE INSTALLER Procedure Note - Interface, External Ris In - 10/25/2019 8:27 AM OFFICE MACHINE INSTALLER Ventricular Rate 65 BPM Atrial Rate 65 BPM P-R Interval 292 ms QRS Duration 150 ms Q-T Interval 454 ms QTC Calculation(Bazett) 472 ms P [place] 59 degrees R [place] -65 degrees T [place] 103 degrees Sinus rhythm with 1st degree A-V block Right bundle branch block Left anterior fascicular blo ck Bifascicular block T wave abnormality, consider lateral ischemia Abnormal ECG When compared with ECG of 04:48, Borderline criteria for Late ral infarct are no longer Present ECG 12-LEAD STAT 10/25/2019 8:26 AM Results for this OFFICE MACHINE INSTALLER procedure are i n the results section. APTT Routine 10/25/2019 5:01 AM Results for this OFFICE MACHINE INSTALLER procedure are i n the results section. CBC (HEMOGRAM ONLY) Routine 10/25/2019 4:55 AM R esults for this OFFICE MACHINE INSTALLER procedure are i n the results section. BASIC METABOLIC Routine 10/25/2019 4:55 AM Resul ts for this PANEL (7) OFFICE MACHINE INSTALLER procedure are i n the results section. ECG 12-LEAD Routine 10/25/2019 4:48 AM Results for this OFFICE MACHINE INSTALLER procedure are i n the results section. APTT Routine 10/25/2019 12:19 AM Results for this OFFICE MACHINE INSTALLER procedure are i n the results section. POCT-GLUCOSE METER Routine 10/24/2019 11:35 PM Re sults for this OFFICE MACHINE INSTALLER procedure are i n the results section. POCT-GLUCOSE METER Routine 10/24/2019 6:52 PM Re sults for this OFFICE MACHINE INSTALLER procedure are i n the results section. APTT Routine 10/24/2019 5:30 PM Results for this OFFICE MACHINE INSTALLER procedure are i n the results section. VEIN MAPPING LEGS Routine 10/24/2019 4:30 PM Res ults for this BILATERAL OFFICE MACHINE INSTALLER procedure are i n the results section. CAROTID DOPPLER Routine 10/24/2019 4:20 PM Resul ts for this BILATERAL OFFICE MACHINE INSTALLER procedure are i n the results section. APTT Routine 10/24/2019 12:36 PM Results for this OFFICE MACHINE INSTALLER procedure are i n the results section. POCT-GLUCOSE METER Routine 10/24/2019 10:51 AM Re sults for this OFFICE MACHINE INSTALLER procedure are i n the results section. APTT Routine 10/24/2019 5:41 AM Results for this OFFICE MACHINE INSTALLER procedure are i n the results section. BASIC METABOLIC Routine 10/24/2019 5:41 AM Resul ts for this PANEL (7) OFFICE MACHINE INSTALLER procedure are i n the results section. CBC (HEMOGRAM ONLY) Routine 10/24/2019 5:41 AM R esults for this OFFICE MACHINE INSTALLER procedure are i n the results section. APTT Routine 10/24/2019 5:41 AM Results for this OFFICE MACHINE INSTALLER procedure are i n the results section. HEPATITIS B SURFACE Routine 10/24/2019 5:41 AM R esults for this ANTIGEN OFFICE MACHINE INSTALLER procedure are i n the results section. ECG 12-LEAD Routine 10/24/2019 5:33 AM Results for this OFFICE MACHINE INSTALLER procedure are i n the results section. POCT-GLUCOSE METER Routine 10/23/2019 9:37 PM Re sults for this OFFICE MACHINE INSTALLER procedure are i n the results section. POCT-GLUCOSE METER Routine 10/23/2019 7:15 PM Re sults for this OFFICE MACHINE INSTALLER procedure are i n the results section. REPORT OF PROCEDURE 10/23/2019 4:02 PM - ENDOSCOPY SCAN OFFICE MACHINE INSTALLER POCT-ACT Routine 10/23/2019 3:48 PM Results for this OFFICE MACHINE INSTALLER procedure are i n the results section. POCT-ACT Routine 10/23/2019 3:27 PM Results for this OFFICE MACHINE INSTALLER procedure are i n the results section. L CATH & PCI 10/23/2019 1:52 PM NSTEMI (non-ST OFFICE MACHINE INSTALLER elevated myocardial infarction) (HCC) POCT-GLUCOSE METER Routine 10/23/2019 11:53 AM Re sults for this OFFICE MACHINE INSTALLER procedure are i n the results section. ECG 12-LEAD Routine 10/23/2019 7:57 AM Results for this OFFICE MACHINE INSTALLER procedure are i n the results section. POCT-GLUCOSE METER Routine 10/23/2019 7:30 AM Re sults for this OFFICE MACHINE INSTALLER procedure are i n the results section. TROPONIN I Routine 10/23/2019 5:48 AM Results for this OFFICE MACHINE INSTALLER procedure are i n the results section. CBC (HEMOGRAM ONLY) Routine 10/23/2019 5:48 AM R esults for this OFFICE MACHINE INSTALLER procedure are i n the results section. APTT Routine 10/23/2019 5:48 AM Results for this OFFICE MACHINE INSTALLER procedure are i n the results section. ECG 12-LEAD Routine 10/23/2019 12:08 AM OFFICE MACHINE INSTALLER Procedure Note - Interface, External Ris In - 10/23/2019 12:12 AM OFFICE MACHINE INSTALLER Ventricular Rate 62 BPM Atrial Rate 62 BPM QRS Duration 136 ms Q-T Interval 436 ms QTC Calculation(Bazett) 442 ms R [place] -63 degrees T [place] 101 degrees Suspect unspecified pacem carlotta failure Sinus rhythm with 1st degree A-V block with occasional Premature ventricular complexes Right bundle branch block Left anterior fascicular blo ck Bifascicular block T wave abnormality, consider lateral ischemia Abnormal ECG When compared with ECG of 22:00, Premature ventricular comple xes are now Present T wave inversion now evident in Lateral leads ECG 12-LEAD Routine 10/23/2019 12:08 AM OFFICE MACHINE INSTALLER Resu lts for this procedure are in the results sec tion. TROPONIN I Routine 10/23/2019 12:06 AM OFFICE MACHINE INSTALLER Resu lts for this procedure are in the results sec tion. APTT Routine 10/22/2019 10:36 PM OFFICE MACHINE INSTALLER Resu lts for this procedure are in the results sec tion. PLATELET COUNT Routine 10/22/2019 10:36 PM OFFICE MACHINE INSTALLER Re sults for this procedure are in the results sec tion. ECG 12-LEAD Routine 10/22/2019 10:00 PM OFFICE MACHINE INSTALLER Procedure Note - Interface, External Ris In - 10/22/2019 10:03 PM OFFICE MACHINE INSTALLER Ventricular Rate 72 BPM Atrial Rate 72 BPM P-R Interval 280 ms QRS Duration 138 ms Q-T Interval 418 ms QTC Calculation(Bazett) 457 ms P [place] 24 degrees R [place] -65 degrees T [place] 55 degrees Sinus rhythm with 1st degree A-V block Right bundle branch block Left anterior fascicular blo ck Bifascicular block Abnormal ECG When compared with ECG of 10:59, No significant change was fo und ECG 12-LEAD STAT 10/22/2019 10:00 PM OFFICE MACHINE INSTALLER Resu lts for this procedure are i n the results section . POCT-GLUCOSE METER Routine 10/22/2019 8:14 PM OFFICE MACHINE INSTALLER Results for this procedure are i n the results section . TROPONIN I Routine 10/22/2019 8:11 PM OFFICE MACHINE INSTALLER Resu lts for this procedure are i n the results section . CBC W/PLT COUNT & AUTO STAT 10/22/2019 12:30 PM OFFICE MACHINE INSTALLER Results for this DIFFERENTIAL procedure are i n the results section . HEPATIC FUNCTION PANEL STAT 10/22/2019 12:30 PM OFFICE MACHINE INSTALLER Results for this procedure are i n the results section . LIPASE STAT 10/22/2019 12:30 PM OFFICE MACHINE INSTALLER Resu lts for this procedure are i n the results section . CBC W/PLT COUNT & AUTO STAT 10/22/2019 12:30 PM OFFICE MACHINE INSTALLER Results for this DIFFERENTIAL procedure are i n the results section . TROPONIN I STAT 10/22/2019 12:30 PM OFFICE MACHINE INSTALLER Resu lts for this procedure are i n the results section . B-TYPE NATRIURETIC FACTOR STAT 10/22/2019 12:30 PM OFFICE MACHINE INSTALLER Results for this (BNP) procedure are i n the results section . MAGNESIUM STAT 10/22/2019 12:30 PM OFFICE MACHINE INSTALLER Resu lts for this procedure are i n the results section . BASIC METABOLIC PANEL (7) STAT 10/22/2019 12:30 PM OFFICE MACHINE INSTALLER Results for this procedure are i n the results section . XR CHEST 1 VIEW STAT 10/22/2019 12:11 PM OFFICE MACHINE INSTALLER R esults for this PORTABLE/BEDSIDE procedure a re in the results section . ED ECG INTERPRETATION Routine 10/22/2019 11:34 AM OFFICE MACHINE INSTALLER Results for this procedure are i n the results section . ECG 12-LEAD Routine 10/22/2019 10:59 AM OFFICE MACHINE INSTALLER Procedure Note - Interface, External Ris In - 10/22/2019 3:18 PM OFFICE MACHINE INSTALLER Ventricular Rate 69 BPM Atrial Rate 69 BPM P-R Interval 258 ms QRS Duration 144 ms Q-T Interval 424 ms QTC Calculation(Bazett) 454 ms P [place] 28 degrees R [place] -59 degrees T [place] 79 degrees Sinus rhythm with 1st degree A-V block Right bundle branch block Left anterior fascicular blo ck Bifascicular block Abnormal ECG When compared with ECG of 16:41, No significant change was fo und ECG 12-LEAD STAT 10/22/2019 10:59 AM OFFICE MACHINE INSTALLER Resu lts for this procedure are in the results section . after 06/29/2019 Results ARRYTHMIA IMPLANT REPORT - SCAN (11/18/2019 5:00 PM CDT)Only the most recent of 2 resultswithin the time period is included. Narrative Performed At This result has an attachment that is no t available. RHYTHM STRIP - SCAN (11/12/2019 3:20 PM CDT)Only the most recent of4 results within the time period is included. Narrative Performed At This result has an attachment that is no t available. TRANSFUSION SERVICE REPORT - SCAN (11/08/2019 5:50 PM OFFICE MACHINE INSTALLER)Only the most recent of7 resultswithin the time period is included. Narrative Performed At This result has an attachment that is no t available. VASCULAR DIAGRAM -SCAN (11/08/2019 11:02 AM OFFICE MACHINE INSTALLER)Only the most recent of2 results within the time period is included. Narrative Performed At This result has an attachment that is no t available. CARDIAC CATH REPORT - SCAN (11/08/2019 11:01 AM OFFICE MACHINE INSTALLER) Narrative Performed At This result has an attachment that is no t available. Prepare Leuko-Red RBC (11/07/2019 11:54 PM OFFICE MACHINE INSTALLER)Only the most recent of3 results within the time period is included. Pathologist Sig nature CROSSMATCH COMPATIBLE SAFETRACE TX Unit ABO A Pos SAFET[facility]ACE TX UNIT NUMBER [id number] [facility] [place] Status TX_TIMEINCHART [facility] [place] Blood Bank Product RED BLOOD CELLS [place] [place] PRODUCT CODE [id number] [place] [place] Specimen Other Performing Organization Address City/State/Zipcode Phone Number [facility] [place] HEMODIALYSIS INPATIENT (11/06/2019 6:10 PM OFFICE MACHINE INSTALLER) Narrative Performed At Verónica Newby RN 11/06/2019 7:00 PM Procedure tolerated well. Vital signs st able. HD duration 3.5 hours UF 3 L via l eft upper arm AV Fistula. Lab Results Component Value Date WBC 6.2 11/06/2019 HGB 7.8 (L) 11/06/2019 HCT 24.9 (L) 11/06/2019 MCV 97.6 (H) 11/06/2019 PLT 248 11/06/2019 Lab Results Component Value Date GLUCOSE 137 (H) 11/06/2019 CALCIUM 9.4 11/06/2019 NA 141 11/06/2019 K 4.5 11/06/2019 CO2 30 (H) 11/06/2019 CL 105 11/06/2019 BUN 28 (H) 11/06/2019 CREATININE 5.35 (H) 11/06/2019 No components found for: HEPSAG Vitals: 11/06/19 1745 BP: Pulse: 73 Resp: 17 Temp: SpO2: 94% XR chest 1 view portable / bedside (11/06/2019 11:20 AM OFFICE MACHINE INSTALLER)Only the most recent of11 resultswithin the time period is included. Specimen Narrative Performed At FINAL REPORT [facility] RAD, CHEST, 1 VIEW, NON DEPT INDICATION: S/p CT surgery COMPARISON: Prior day's exam FINDINGS: Portable frontal view of the c hest. IMPRESSION: Support Lines: Stable. Lungs and pleura: Unchanged airspace and pleural opacities. No pneumothorax. Heart and mediastinum: Stable contours. Stable surgical changes. Additional findings: None. Signed: Dasia Last MD Report Verified Date/Time: 11/06/2019 11:53:03 Reading Location: [facility] Reading [facility] Procedure Note Interface, External Ris In - 11/06/2019 11:55 AM OFFICE MACHINE INSTALLER FINAL REPORT RAD, CHEST, 1 VIEW, NON DEPT INDICATION: S/p CT surgery COMPARISON: Prior day's exam FINDINGS: Portable frontal view of the c hest. IMPRESSION: Support Lines: Stable. Lungs and pleura: Unchanged airspace and pleural opacities. No pneumothorax. Heart and mediastinum: Stable contours. Stable surgical changes. Additional findings: None. Signed: Dasia Last MD Report Verified Date/Time: 11/06/2019 1 1:53:03 Reading Location: [facility] Reading [facility] Performing Organization Address City/State/Zipcode Phone Number [facility] POC-Glucose meter (11/06/2019 11:19 AM OFFICE MACHINE INSTALLER)Only the most recent of60 results within the time period is included. POC-Glucose Meter 149 (H)Comment: 70 - 110 mg/dL [facility] : TESTED AT [facility] [address] [facility], [id number]: Airbrush Painter/Technic jose luis ID = [id number] for Alfredo Nj Specimen Blood Performing Organization Address City/State/Zipcode Phone Number [facility] [address] [place] [address] CENTER Transfuse Leuko-Red RBC (11/06/2019 9:33 AM OFFICE MACHINE INSTALLER)Only the most recent of5 resultswithin the time period is included.Manual Differential (11/06/2019 4:40 AM OFFICE MACHINE INSTALLER)Only the most recent of4 resultswithin the time period is included. Pathologist Sig nature % Neutros 70 % [facility] % Lymphs 21 % [facility] % Monos 6 % [facility] % Metamyelo 2 (H) 0 - 0 % [facility] % Atypical Lymphs 1 (H) 0 - 0 % [facility] # Neutros 4.34 1.78 - 5.38 K/ul [facility] # Lymphs 1.30 (L) 1.32 - 3.57 K/ul [facility] # Monos 0.37 0.30 - 0.82 K/uL [facility] # Metamyelo 0.12 (H) 0.00 - 0.00 K/uL [facility] # Atypical Lymphs 0.06 (H) 0.00 - 0.00 K/uL [facility] Total Counted 100 [facility] WBC Morphology Normal [facility] Platelet Morphology Normal [facility] Anisocytosis 1+ few [facility] Macrocytes 1+ few [facility] Poikilocytes 1+ few [facility] Artifact Present [facility] Platelet Conc Adequate [facility] Specimen Blood Narrative Performed At Airbrush Painter ID - [email or web address] [facility] User comments: Slide comments: Performing Organization Address City/[facility]/Zipcode Phone Number [facility] [address] [place] [address] CENTER CBC with platelet count + automated diff (11/06/2019 4:40 AM OFFICE MACHINE INSTALLER)Only the most recent of10 resultswithin the time period is included. Pathologist Sig nature WBC 6.2 3.5 - 10.5 K/L [facility] RBC 2.55 (L) 4.63 - 6.08 M/L [facility] Hemoglobin 7.8 (L) 13.7 - 17.5 GM/DL [facility] Hematocrit 24.9 (L) 40.1 - 51.0 % [facility] MCV 97.6 (H) 79.0 - 92.2 fL [facility] MCH 30.6 25.7 - 32.2 pg [facility] MCHC 31.3 (L) 32.3 - 36.5 GM/DL [facility] RDW 16.6 (H) 11.6 - 14.4 % [facility] Platelets 248 150 - 450 K/CU MM [facility] MPV 11.0 9.4 - 12.4 fL [facility] nRBC 0 0 - 0 /100 WBC [facility] Specimen Blood Performing Organization Address City/State/Zipcode Phone Number [facility] [address] [place] [address] CENTER Phosphorus (11/06/2019 4:40 AM OFFICE MACHINE INSTALLER)Only the most recent of18 resultswithin the time period is included. Pathologist Sig nature Phosphorus 3.3 2.3 - 4.7 mg/dL [facility] Specimen Blood Narrative Performed At Airbrush Painter ID - OZZY Aquino [facility] Performing Organization Address City/[facility]/Zipcode Phone Number [facility] [address] [place] [address] CENTER Magnesium (11/06/2019 4:40 AM OFFICE MACHINE INSTALLER)Only the most recent of21 resultswithin the time period is included. Pathologist Sig nature Magnesium 2.2 1.6 - 2.6 mg/dL [facility] Specimen Blood Narrative Performed At Airbrush Painter ID - OZZY Aquino [facility] Performing Organization Address City/[facility]/Zipcode Phone Number [address] [address] CENTER Basic Metabolic Panel (11/06/2019 4:40 AM OFFICE MACHINE INSTALLER)Only the most recent of20 results within the time period is included. Sodium 141 136 - 145 meq/L [facility] Potassium 4.5 3.5 - 5.1 meq/L [facility] Chloride 105 98 - 107 meq/L [facility] CO2 30 (H) 22 - 29 meq/L [facility] BUN 28 (H) 7 - 21 mg/dL [facility] Creatinine 5.35 (H) 0.57 - 1.25 [facility] mg/dL [facility] Glucose 137 (H) 70 - 105 mg/dL [facility] Calcium 9.4 8.4 - 10.2 [facility] mg/dL [facility] EGFR 11Comment: ESTIMATED mL/min/1.73 sq [facility] GFR IS NOT m [facility] ACCURATE [place] CREATININE CLEARANCE IN PREDICTING GLOMERULAR FILTRATION RATE. ESTIMATED GFR IS NOT APPLICABLE FOR DIALYSIS PATIENTS. Specimen Blood Narrative Performed At Airbrush Painter ID - OZZY Aquino [facility] Performing Organization Address City/[facility]/Zipcode Phone Number [address] [phone] CENTER Type and screen, automated (11/05/2019 6:03 PM OFFICE MACHINE INSTALLER)Only the most recent of3 resultswithin the time period is included. Pathologist Sig nature ABO/RH AUTOMATED A POSITIVE [facility] (BEAKER) [facility] Ab Scrn NEGATIVE [facility] Specimen Blood Performing Organization Address City/State/Zipcode Phone Number [facility] [address] [place] [address] ECG 12 lead (11/05/2019 4:53 PM OFFICE MACHINE INSTALLER)Only the most recent of11 resultswithin the time period is included. Specimen Narrative Performed At Ventricular Rate 72 BPM GE MUSE Atrial Rate 72 BPM P-R Interval 272 ms QRS Duration 154 ms Q-T Interval 450 ms QTC Calculation(Bazett) 492 ms P [place] 14 degrees R [place] -65 degrees T [place] 97 degrees Sinus rhythm with 1st degree A-V block Right bundle branch block Left anterior fascicular block Bifascicular block Possible Lateral infarct (cited on or be fore 27-OCT-2019) Abnormal ECG When compared with ECG of 28-OCT-2019 06 :41, Previous ECG has undetermined rhythm, ne eds review (RBBB and left anterior fascicular block) has replaced RSR' pattern in V1 Questionable change in initial forces of Anterolateral leads Confirmed by MD EUGENIO, FANI Harrison ([id number]) on 11/06/2019 6:31:42 AM Procedure Note Interface, External Ris In - 11/06/2019 6:31 AM OFFICE MACHINE INSTALLER Ventricular Rate 72 BPM Atrial Rate 72 BPM P-R Interval 272 ms QRS Duration 154 ms Q-T Interval 450 ms QTC Calculation(Bazett) 492 ms P [place] 14 degrees R [place] -65 degrees T [place] Bend 97 degrees Sinus rhythm with 1st degree A-V block Right bundle branch block Left anterior fascicular block Bifascicular block Possible Lateral infarct (cited on or be fore 27-OCT-2019) Abnormal ECG When compared with ECG of 28-OCT-2019 06 :41, Previous ECG has undetermined rhythm, ne eds review (RBBB and left anterior fascicular block ) has replaced RSR' pattern in V1 Questionable change in initial forces of Anterolateral leads Confirmed by MD EUGENIO, FANI Harrison ([id number]) on 11/06/2019 6:31:42 AM Performing Organization Address City/State/Zipcode Phone Number ANTHONY WALDROP Troponin I (11/05/2019 4:49 PM OFFICE MACHINE INSTALLER)Only the most recent of5 resultswithin the time period is included. Pathologist Sig nature Troponin I 0.42 (HH) 0.00 - 0.03 ng/mL [facility] Specimen Blood Narrative Performed At Troponin I (TnI) levels must be interpreted [facility] in the context of the presenting [...] acidosis, acute neurological disease, and persistent tachyarrhythmia. Airbrush Painter ID - BS Performing Organization Address City/State/Zipcode Phone Number [facility] [address] [place] [address] CENTER HEMODIALYSIS INPATIENT (11/03/2019 4:27 AM OFFICE MACHINE INSTALLER) Narrative Performed At Kanika Cortez RN 11/03/2019 4 :28 AM Patient is awake, alert and oriented X 4 . Here to be dialyzed for 2.5 hours with UF goal of 2-2.5L. The fo llowing most updated labs are as follows: Lab Results Component Value Date HEPBSAG Nonreactive 10/24/2019 Lab Results Component Value Date GLUCOSE 195 (H) 11/02/2019 CALCIUM 9.1 11/02/2019 NA 134 (L) 11/02/2019 K 4.4 11/02/2019 CO2 23 11/02/2019 CL 100 11/02/2019 BUN 62 (H) 11/02/2019 CREATININE 8.15 (H) 11/02/2019 Lab Results Component Value Date WBC 5.4 11/02/2019 HGB 8.1 (L) 11/02/2019 HCT 25.9 (L) 11/02/2019 MCV 100.4 (H) 11/02/2019 PLT 166 11/02/2019 Patient dialyzed for 2.5 hours with Net UF = 2.2 L using the left arm AV fistula access. Report given to Cruz aparicio RN. Kanika Cortez RN Calcium, Ionized (11/03/2019 3:44 AM OFFICE MACHINE INSTALLER)Only the most recent of9 resultswithin the time period is included. Pathologist Sig nature Calcium, Ion 1.19 1.12 - 1.27 mmol/L [facility] pH, Blood 7.34 [facility] Specimen Blood Performing Organization Address City/[facility]/Zipcode Phone Number [facility] [address] [place] [address] CENTER Hemoglobin and hematocrit (11/02/2019 8:52 PM OFFICE MACHINE INSTALLER)Only the most recent of2 resultswithin the time period is included. Pathologist Sig nature Hemoglobin 8.1 (L) 13.7 - 17.5 GM/DL [facility] Hematocrit 25.9 (L) 40.1 - 51.0 % [facility] Specimen Blood Narrative Performed At Airbrush Painter ID - [id number] [facility] Performing Organization Address City/[facility]/Zipcode Phone Number [address] [address] [place] Blood gas, arterial (11/02/2019 8:52 PM OFFICE MACHINE INSTALLER)Only the most recent of19 results within the time period is included. Pathologist Sig nature pH, Arterial 7.35 7.35 - 7.45 [facility] pCO2, Arterial 50 (H) 35 - 45 mmHg [facility] pO2, Arterial 71 (L) 80 - 90 mmHg [facility] O2 Sat, Arterial 93.4 (L) 96.0 - 97.0 % [facility] HCO3, Arterial 27 21 - 29 mmol/L [facility] Base Excess, Arterial 0.8 -2.0 - 3.0 [facility] mmol/L [facility] Patient Temperature 37.0 C [facility] FIO2 36.0 % [facility] Specimen Blood, Arterial Performing Organization Address City/State/Zipcode Phone Number [facility] [address] [place] [address] CENTER SLED (SHIFT THERAPY) (11/01/2019 11:35 AM OFFICE MACHINE INSTALLER) Narrative Performed At Verónica Newby RN 11/01/2019 12:16 PM Patient's left upper arm AV Fistula, wit h good thrill and bruit, cannulated with 17g fistula needles with out difficulty. Good blood return noted. Hooked up to NX stag e machine by Julian Almodovar RN and Shift Therapy started. Nurse Fawn romero instructed to call the Dialysis Unit for any problem or ass istance regarding the AV Fistula access and for fistula needles r emoval after treatment. Patient has shortness of breath noted bu t conversant and in stable condition. CBC (Hemogram only) (11/01/2019 4:29 AM OFFICE MACHINE INSTALLER)Only the most recent of9 results within the time period is included. Pathologist Sig nature WBC 7.0 3.5 - 10.5 K/L [facility] RBC 2.35 (L) 4.63 - 6.08 M/L [facility] Hemoglobin 7.4 (L) 13.7 - 17.5 GM/DL [facility] Hematocrit 23.8 (L) 40.1 - 51.0 % [facility] MCV 101.3 (H) 79.0 - 92.2 fL [facility] MCH 31.5 25.7 - 32.2 pg [facility] MCHC 31.1 (L) 32.3 - 36.5 GM/DL [facility] RDW 16.5 (H) 11.6 - 14.4 % [facility] Platelets 138 (L) 150 - 450 K/CU MM [facility] MPV 12.2 9.4 - 12.4 fL [facility] nRBC 0 0 - 0 /100 WBC [facility] Specimen Blood Performing Organization Address City/[facility]/Zipcode Phone Number [address] [address] CENTER Potassium-STAT (10/31/2019 10:54 PM OFFICE MACHINE INSTALLER)Only the most recent of11 resultswithin the time period is included. Pathologist Sig nature Potassium 4.6 3.5 - 5.1 meq/L [facility] Specimen Blood Narrative Performed At Airbrush Painter ID - PIAYA L [facility] Performing Organization Address [facility]/Zipcode Phone Number [address] [address] CENTER Glucose-STAT (10/31/2019 10:54 PM OFFICE MACHINE INSTALLER) Pathologist Sig nature Glucose 144 (H) 70 - 105 mg/dL [facility] Specimen Blood Narrative Performed At Airbrush Painter ID - PIAYA L [facility] CENTER Performing Organization Address City/[facility]/Zipcode Phone Number [address] [address] CENTER PT/aPTT (10/31/2019 3:31 AM OFFICE MACHINE INSTALLER)Only the most recent of3 resultswithin the time period is included. Pathologist Sig nature Protime 16.0 (H) 11.9 - 14.2 seconds [facility] INR 1.3 <=5.9 [facility] PTT 55.3 (H) 22.5 - 36.0 seconds [facility] Specimen Blood Narrative Performed At Effective 01/30/2019: PT Reference Range [facility] Change New: 11.9-14.2 Previous: 11.7-14.7 RECOMMENDED COUMADIN/WARFARIN INR THERAPY RANGES STANDARD DOSE: 2.0-3.0 Includes: PROPHYLAXIS for venous thrombosis, systemic embolization; TREATMENT for venous thrombosis and/or pulmonary embolus. HIGH RISK: Target INR is 2.5-3.5 for patients wiht mechanical heart valves. Performing Organization Address [facility]/Zipcode Phone Number [place] [phone] [place] [address] CENTER Prothrombin time/INR (10/31/2019 3:31 AM OFFICE MACHINE INSTALLER)Only the most recent of5 results within the time period is included. Pathologist Sig nature Protime 16.0 (H) 11.9 - 14.2 seconds [facility] INR 1.3 <=5.9 [facility] Specimen Blood Narrative Performed At [facility] 01/30/2019: PT Reference Range [facility] Change New: 11.9-14.2 Previous: 11.7-14.7 RECOMMENDED COUMADIN/WARFARIN INR THERAPY RANGES STANDARD DOSE: 2.0-3.0 Includes: PROPHYLAXIS for venous thrombosis, systemic embolization; TREATMENT for venous thrombosis and/or pulmonary embolus. HIGH RISK: Target INR is 2.5-3.5 for patients wiht mechanical heart valves. Performing Organization Address City/[facility]/Zipcode Phone Number [facility] [address] [place] [address] [place] HEMODIALYSIS INPATIENT (10/30/2019 6:33 PM OFFICE MACHINE INSTALLER) Narrative Performed At Jorje Rachel RN 10/30/2019 6: 33 PM HD x 4 hrs. UF net 3L. Treatment tolerat ed well. Lab Results Component Value Date WBC 6.7 10/30/2019 HGB 7.8 (L) 10/30/2019 HCT 24.6 (L) 10/30/2019 MCV 97.6 (H) 10/30/2019 PLT 106 (L) 10/30/2019 Lab Results Component Value Date GLUCOSE 157 (H) 10/30/2019 CALCIUM 9.4 10/30/2019 NA 142 10/30/2019 K 5.2 (H) 10/30/2019 CO2 24 10/30/2019 CL 108 (H) 10/30/2019 BUN 31 (H) 10/30/2019 CREATININE 6.91 (H) 10/30/2019 Lab Results Component Value Date HEPBSAG Nonreactive 10/24/2019 Vitals: 10/30/19 1815 BP: Pulse: 76 Resp: 15 Temp: SpO2: 100% Prepare PLT (10/29/2019 11:54 PM OFFICE MACHINE INSTALLER)Only the most recent of2 resultswithin the time period is included. Pathologist Sig nature Unit ABO A Neg [place]AFET[place]ACE [place] UNIT NUMBER [id number] SAFETRACE [place] Status TX_TIMEINCHART [place]AF[place]ACE [place] Blood Bank Product PLATELETS SAFETRACE [place] PRODUCT CODE [id number] SAFETRACE [place] Performing Organization Address [facility] Phone Number [place] Prepare RBC (10/29/2019 11:54 PM OFFICE MACHINE INSTALLER) Pathologist Sig nature CROSSMATCH COMPATIBLE SAFETRACE TX Unit ABO A Pos SAFETRACE TX UNIT NUMBER [id number] SAFETRACE TX Status RETURNED FROM ISSUE SAFETRACE TX Blood Bank Product RED BLOOD CELLS SAFETRACE TX PRODUCT CODE [id number] SAFETRACE TX CROSSMATCH COMPATIBLE SAFETRACE TX Unit ABO A Pos SAFETRACE TX UNIT NUMBER [id number] SAFETRACE TX Status RETURNED FROM ISSUE SAFETRACE TX Blood Bank Product RED BLOOD CELLS SAFETRACE TX PRODUCT CODE [id number] SAFETRACE TX CROSSMATCH COMPATIBLE SAFETRACE TX Unit ABO A Pos SAFETRACE TX UNIT NUMBER [id number] SAFETRACE TX Status TX_TIMEINCHART SAFETRACE TX Blood Bank Product RED BLOOD CELLS SAFETRACE TX PRODUCT CODE [id number] SAFETRACE TX CROSSMATCH COMPATIBLE SAFETRACE TX Unit ABO A Pos SAFETRACE TX UNIT NUMBER [id number] SAFETRACE TX Status TX_TIMEINCHART SAFETRACE TX Blood Bank Product RED BLOOD CELLS SAFETRACE [place] PRODUCT CODE [id number] SAFETRACE [place] Performing Organization Address City/[facility] Phone Number [place] Potassium-Stat Lab (10/29/2019 7:36 PM OFFICE MACHINE INSTALLER)Only the most recent of11 results within the time period is included. Pathologist Sig nature Potassium 5.2 3.6 - 5.5 meq/L [facility] Specimen Blood, Arterial Performing Organization Address City/[facility]/Zipcode Phone Number [address] [place] [address] CENTER Sodium Na-Stat Lab (10/29/2019 7:36 PM OFFICE MACHINE INSTALLER)Only the most recent of11 results within the time period is included. Pathologist Sig nature Sodium 139 135 - 148 meq/L [facility] Specimen Blood, Arterial Performing Organization Address [facility] [place] Phone Number [address] [address] CENTER Glucose-Stat Lab (10/29/2019 7:36 PM OFFICE MACHINE INSTALLER)Only the most recent of12 results within the time period is included. Pathologist Sig nature Glucose 168 (H) 70 - 110 mg/dL [facility] Specimen Blood, Arterial Performing Organization Address [facility] [place]/[facility] Phone Number [address] [address] CENTER HGB/HCT (H&H)-Stat Lab (10/29/2019 7:36 PM OFFICE MACHINE INSTALLER)Only the most recent of11 resultswithin the time period is included. Pathologist Sig nature Hemoglobin 9.1 (L) 13.0 - 16.8 g/dL [facility] Hematocrit 27.0 (L) 40.0 - 50.0 % [facility] Specimen Blood, Arterial Performing Organization Address [facility] [place]/[facility] Phone Number [address] [address] CENTER Lactic Acid, Arterial (10/29/2019 7:36 PM OFFICE MACHINE INSTALLER)Only the most recent of5 results within the time period is included. Pathologist Sig nature Lactate, Art 2.2 0.5 - 2.2 mmol/L [facility] Specimen Blood, Arterial Narrative Performed At Airbrush Painter ID - DB [facility] Performing Organization Address [facility] Phone Number [address] [address] CENTER Oxygen saturation, measured (10/29/2019 2:34 AM OFFICE MACHINE INSTALLER)Only the most recent of2 resultswithin the time period is included. Pathologist Sig nature O2 Saturation (Measured) 78.1 % [facility] Specimen Blood Performing Organization Address City/[facility] Phone Number [address] [address] [place] Prepare plasma (10/28/2019 4:55 PM OFFICE MACHINE INSTALLER) Pathologist Sig nature Unit ABO A Pos SAFETRACE TX UNIT NUMBER [id number] SAFETRACE TX Status RETURNED FROM ISSUE SAFETRACE TX Blood Bank Product FFP SAFETRACE TX PRODUCT CODE [id number] SAFETRACE TX Unit ABO A Pos SAFETRACE TX UNIT NUMBER [id number] SAFETRACE TX Status RETURNED FROM ISSUE SAFETRACE TX Blood Bank Product FFP SAFETRACE TX PRODUCT CODE [id number] SAFETRACE TX Unit ABO A Pos SAFETRACE TX UNIT NUMBER [id number] SAFETRACE TX Status RETURNED FROM ISSUE SAFETRACE TX Blood Bank Product FFP SAFETRACE TX PRODUCT CODE [id number] SAFETRACE TX Unit ABO A Pos SAFETRACE TX UNIT NUMBER [id number] SAFETRACE TX Status RETURNED FROM ISSUE SAFETRACE TX Blood Bank Product FFP SAFETRACE [place] PRODUCT CODE [id number] SAFETRACE [place] Performing Organization Address [facility] Phone Number S[place]ACE [place] aPTT (10/28/2019 4:55 PM OFFICE MACHINE INSTALLER)Only the most recent of18 resultswithin the time period is included. Pathologist Sig nature PTT 36.5 (H) 22.5 - 36.0 seconds [facility] Specimen Blood Performing Organization Address City/[facility] Phone Number [address] [address] CENTER Fibrinogen (10/28/2019 4:55 PM OFFICE MACHINE INSTALLER)Only the most recent of2 resultswithin the time period is included. Pathologist Sig nature Fibrinogen 343 225 - 434 mg/dl [facility] Specimen Blood Performing Organization Address City/State/Zipcode Phone Number [address] [phone] CENTER Platelet count (10/28/2019 4:55 PM OFFICE MACHINE INSTALLER)Only the most recent of3 resultswithin the time period is included. Pathologist Sig nature Platelets 119 (L) 150 - 450 K/CU MM [facility] Specimen Blood Narrative Performed At Airbrush Painter ID - [id number] [facility] Performing Organization Address City/[facility] Phone Number [address] [address] CENTER Transfuse Leuko-Red PLT (10/28/2019 3:03 PM OFFICE MACHINE INSTALLER)Only the most recent of2 resultswithin the time period is included.POC ACTIVATED CLOTTING TIME (10/28/2019 2:35 PM OFFICE MACHINE INSTALLER)Only the most recent of9 resultswithin the time period is included. Activated Clotting 131Comment: : sec [facility] Time 74-137 seconds, [facility] Baseline: TESTED CENTER AT [address], [address]: Airbrush Painter/Technici an ID = [id number] for ANTHONY MARINO Specimen Blood Performing Organization Address [facility] [place] Phone Number [address] [phone] CENTER AFB culture + smear (non-sputum) (10/28/2019 12:13 PM OFFICE MACHINE INSTALLER) Pathologist Sig nature Result No acid-fast bacilli [facility] isolated in 42 days [facility] AFB Smear No acid fast bacilli [facility] seen [facility] Specimen Tissue - Site of pacemaker (attribute) Performing Organization Address [facility]/Zipcode Phone Number [address] [address] CENTER Anaerobic culture (10/28/2019 12:13 PM OFFICE MACHINE INSTALLER) Pathologist Sig nature Result No anaerobes isolated [facility] Specimen Tissue - Site of pacemaker (attribute) Performing Organization Address City/[facility] Phone Number [facility] [address] [place] [phone] [place] Surgically obtained culture + gram stain (10/28/2019 12:13 PM OFFICE MACHINE INSTALLER) Result No growth [facility] Gram Stain Result <1+ White blood [facility] cells seen [facility] Gram Stain Result No organisms seen [facility] Specimen Tissue - Site of pacemaker (attribute) Performing Organization Address City/[facility] Phone Number [address] [phone] [place] Fungus culture + smear (10/28/2019 12:13 PM OFFICE MACHINE INSTALLER) Pathologist Sig nature Result No fungus isolated [facility] in 28 days [facility] Fungus Smear No fungi seen [facility] Specimen Tissue - Site of pacemaker (attribute) Performing Organization Address City/[facility] Phone Number [address] [address] [place] STEPHANIE (10/28/2019 9:31 AM OFFICE MACHINE INSTALLER) Narrative Performed At Dasha Cortez MD 10/28/19 2:34 PM STEPHANIE Date: 10/28/2019 9:31 AM Sex: Female Loca tion: ICU Requesting Physician: Gal Chavez MD Examiner: Dasha Cortez MD Intubated Sedated Patient screened for esoph disease: Yes Insertion: easy Probe Type: multiplane Modalities: 2D, CFM, CWD and PWD Pre Intervention Summary: Aorta: No aneu rysm, no dissection, no mobile plaques AV: trileaflet morphology, No aortic mala nosis, central trace aortic regurgitation LV: normal chamber size , mild LVH, Mildly reduced s ystolic function (EF 45-50 % by coe's), Diskinetic septal wall due to v entricular pacing, apical hypokinesis. No other RWMA, no th rombus MV: normal morphology, mild mitral regurgitation ( VC .2, EROA 0.1 cm ), No mitral stenosis LA: no AMANDA thrombus, normal size and fun ction PV: limited visualization RV: sized chamber, normal function, no t hrombus TV: normal morphology, trace tricuspid r egurgitation RA: no thrombus PFO by color dopper flow ( L-> R) All findings communicated to surgical te am. Post Intervention Summary: S/p 4v ACB Epi@2, NE@1 LVEF 50-55% by qualitative assessment. N o RWMAs MR remains the same No pericardial effusion No aortic dissection RV function normal Procedure Note Dasha Cortez MD - 10/28/2019 9:31 AM OFFICE MACHINE INSTALLER STEPHANIE Date: 10/28/2019 9:31 AM Sex: Female Loca tion: ICU Requesting Physician: Gal Chavez MD Examiner: Dasha Cortez MD Intubated Sedated Patient screened for esoph disease: Yes Insertion: easy Probe Type: multiplane Modalities: 2D, CFM, CWD and PWD Pre Intervention Summary: Aorta: No aneu rysm, no dissection, no mobile plaques AV: trileaflet morphology, No aortic mala nosis, central trace aortic regurgitation LV: normal chamber size , mild LVH, Mil dly reduced systolic function (EF 45-50 % by coe's), Diskinetic septal wall due to ventricular pacing, apical hypokinesis. No other RWMA, no thrombus MV: normal morphology, mild mitral regur gitation ( VC .2, EROA 0.1 cm ), No mitral stenosis LA: no AMANDA thrombus, normal size and fun ction PV: limited visualization RV: sized chamber, normal function, no t hrombus TV: normal morphology, trace tricuspid r egurgitation RA: no thrombus PFO by color dopper flow ( L-> R) All findings communicated to surgical te am. Post Intervention Summary: S/p 4v ACB Epi@2, NE@1 LVEF 50-55% by qualitative assessment. N o RWMAs MR remains the same No pericardial effusion No aortic dissection RV function normal Comprehensive metabolic panel (10/28/2019 4:27 AM OFFICE MACHINE INSTALLER) Protein, Total 6.0 6.0 - 8.3 [facility] gm/dL [facility] Albumin 3.8 3.5 - 5.0 [facility] g/[facility] Alkaline 147 40 - 150 U/L [facility] Phosphatase [facility] Total Bilirubin 0.4 0.2 - 1.2 [facility] mg/dL [facility] Sodium 137 136 - 145 [facility] meq/L [facility] Potassium 4.7 3.5 - 5.1 [facility] meq/L [facility] Chloride 101 98 - 107 [facility] meq/L [facility] CO2 26 22 - 29 meq/L [facility] BUN 43 (H) 7 - 21 mg/dL [facility] Creatinine 9.57 (H) 0.57 - 1.25 [facility] mg/dL [facility] Glucose 138 (H) 70 - 105 [facility] mg/dL [facility] Calcium 9.1 8.4 - 10.2 [facility] mg/dL [facility] AST 28 5 - 34 U/L [facility] ALT 38 6 - 55 U/L [facility] EGFR 5Comment: mL/min/1.73 [facility] ESTIMATED GFR IS sq [facility] NOT [facility] CREATININE CLEARANCE IN PREDICTING GLOMERULAR FILTRATION RATE. ESTIMATED GFR IS NOT APPLICABLE FOR DIALYSIS PATIENTS. Specimen Blood Narrative Performed At Airbrush Painter ID - OZZY W [facility] Performing Organization Address City/State/Zipcode Phone Number [facility] [address] [place] [address] CENTER CTA chest (10/27/2019 11:23 AM OFFICE MACHINE INSTALLER) Specimen Narrative Performed At Addendum Begins GE RIS REPORT STATUS:A ADDENDUM: I agree with the previously described no n vascular findings. Additional findings: None. Signed: Kevin Ignacio MD Report Verified Date/Time: 10/28/2019 14:28:45 Reading Location: [facility] P048 Angio Body Reading Room Addendum Ends FINAL REPORT CT angiography of the thoracic aorta, November 2019 INDICATION: This is a 69 year old male w ith a diagnosis of coronary artery disease, presents for prevascular surgery assessment TECHNIQUE: Spiral acquisition before and during during intravenous contrast administration using a Tali multidetector CT scanner. Images were obtained before and during t he dynamic passage of intravenous contrast material. Multi-p lanar 3-D volume-rendering reconstruction was performed using an in dependent workstation interactively by the interpreting physic jose luis as well as the 3-D specialist for optimal visualisation of the thoracic aorta and its proximal branches. Please refer to the contrast sheet scann ed in the [employer] system for the amount and route of contrast given. This exam was performed according to our departmental dose-optimisation programme, which inclu jeanne automated exposure control, adjustment of the mA and/or kV according to patient size and/or use of iterative reconstruction t echnique. Dose modulation, iterative reconstruction, and/or weight based adjustment of the mA/kV was utilized to reduce the radiation dos e to as low as reasonably achievable. FINDINGS: VASCULAR: An electronic device is identified in th e right upper chest, with pacing leads identified in the right-juliana ed cardiac chambers. No pericardial effusion is identified. The central pulmonary artery is normal i n calibre. There is no evidence of central pulmonary artery emb olism identified. The cardiac chambers demonstrate normal atrioventricular and ventriculoarterial concordance, and syst emic and pulmonary venous return. In the mid diastolic data set, the left ventricle is enlarged. Mild left atrial prominence is identified. Coronary artery origins are normal and d iffuse calcification is identified in all 3 coronary territories . In fact, there is likely stent versus diffuse calcification ident ified in the proximal and mid LAD for length of approximately 6.7 cm. Thereafter, remainder of the the mid and distal LAD appears to be derik e of calcification of precontrast series, however, patency is difficult to comment upon. The thoracic aorta is normal in course, contour, and calibre. There is no calcification seen in the aortic r oot and ascending thoracic aorta. Minimal calcification is seen sca ttered along the transverse arch and descending thoracic aorta. Th ere is no evidence of acute aortic pathology, specifically, there is no dissection, intramural hematoma, or contained rupture. The arch vessel branching pattern is nor mal and the visualised portion of the arch vessels are widely p atent. There is some scattered focal nonobstructive calcifica tion seen at the takeoff of the left subclavian artery at image 47 t hereafter remainder of the the left subclavian artery including whe re the DESMOND arises of calcification. The left subclavian arter y is widely patent. The left and the right internal mammary arteries are also well seen. Quantitative dimensions of the aorta are as follows: 3.2 cm at the sinuses of Valsalva (the sino-tubular ju nction is preserved); 2.7 cm at the proximal ascending thoracic aorta ; 3.5 cm at the mid ascending aorta; 2.7 cm at the distal ascending aorta; 2.3 cm at the mid transverse arch; 2.5 cm at the proxi mal descending aorta; 2.2 cm at the mid descending aorta; 2.1 cm at t he diaphragmatic hiatus. The left brachycephalic vein is 2.8 cm p osterior to the sternum; the mid ascending thoracic aorta is 5.0 cm p osterior to the sternum; the aortic root is at least 6 cm posterior t o the sternum. The distal LAD, relatively free of contrast, at desmond ge 113, is approximately 1 cm adjacent to the left rib. Please See sna pshot for details. No obvious aortic valve calcification is seen and no mitral annular calcification is appreciated. NON-VASCULAR: The visualised thyroid gland is unremark able. The chest wall and mediastinum appear no rmal. Number of small lymph nodes are seen, less than 1 cm in size, therefore considered nonspecific in nature. In the lung windows, no endobronchial le nakul is seen. Small left basal pleural effusion is identified and associated atelectatic changes are seen. Overall, no pulmonary nodule is appreciated. Limited images of the upper abdomen reve als no gross abnormality. In the AP orientation, the spleen is mildly prominent measure 13.3 cm, of uncertain significance. Correlate cli nically. No acute bony pathology is seen. Some de generative changes is noted. CONCLUSIONS: 1. The thoracic aorta is normal in cours e, contour, and calibre. There ascending thoracic aorta and aorti c root is free of calcification. No ectasia or aneurysmal dilation is seen. There is no evidence of acute aortic pathology, s pecifically, there is no dissection, intramural hematoma, or cont ained rupture. Quantitative dimension of the thoracic a andrés are as described above. Minimal nonobstructive calcification is seen in the takeoff of the left subclavian artery and the left abla tion artery is widely patent. 2. Normal coronary artery origins. Dif fuse calcification is seen in all 3 coronary territories, as specially in the proximal 6.7 cm of the LAD, diffuse calcification versus st ent is present. The left ventricle is enlarged. 3. Pulmonary findings as described above . Small left basal pleural effusion. The central pulmonary artery is normal i n calibre no evidence of central pulmonary artery embolism is kong ntified. 4. Other findings as described above 5. An addendum will be dictated regard ing the non-vascular findings by the Home Health Speech Therapist Radiologist. Signed: Alfonzo Almanza MD Report Verified Date/Time: 10/28/2019 07:41:51 Procedure Note Interface, External Ris In - 10/28/2019 2:31 PM OFFICE MACHINE INSTALLER Addendum Begins REPORT STATUS:A ADDENDUM: I agree with the previously described no n vascular findings. Additional findings: None. Signed: Kevin Ignacio MD Report Verified Date/Time: 10/28/2019 1 4:28:45 Reading Location: [place] [address] Angio Body Reading Room Addendum Ends FINAL REPORT CT angiography of the thoracic aorta, November 2019 INDICATION: This is a 69 year old male w ith a diagnosis of coronary artery disease, presents for prevascular surgery assessment TECHNIQUE: Spiral acquisition before and during during intravenous contrast administration using a Tali multidetector CT scanner. Images were obtained before and during t he dynamic passage of intravenous contrast material. Multi-pl liset 3-D volume-rendering reconstruction was performed using an in dependent workstation interactively by the interpreting physic jose luis as well as the 3-D specialist for optimal visualisation of the thoracic aorta and its proximal branches. Please refer to the contrast sheet scann ed in the [employer] system for the amount and route of contrast given. This exam was performed according to our departmental dose-optimisation programme, which inclu jeanne automated exposure control, adjustment of the mA and/or kV according to patient size and/or use of iterative reconstruction t echnique. Dose modulation, iterative reconstruction, and/or weight based adjustment of the mA/kV was utilized to reduce the radiation dos e to as low as reasonably achievable. FINDINGS: VASCULAR: An electronic device is identified in th e right upper chest, with pacing leads identified in the right-juliana ed cardiac chambers. No pericardial effusion is identified. The central pulmonary artery is normal i n calibre. There is no evidence of central pulmonary artery emb olism identified. The cardiac chambers demonstrate normal atrioventricular and ventriculoarterial concordance, and syst emic and pulmonary venous return. In the mid diastolic data set, the left ventricle is enlarged. Mild left atrial prominence is identified. Coronary artery origins are normal and d iffuse calcification is identified in all 3 coronary territories . In fact, there is likely stent versus diffuse calcification ident ified in the proximal and mid LAD for length of approximately 6.7 cm. Thereafter, remainder of the the mid and distal LAD appears to be derik e of calcification of precontrast series, however, patency is difficult to comment upon. The thoracic aorta is normal in course, contour, and calibre. There is no calcification seen in the aortic r oot and ascending thoracic aorta. Minimal calcification is seen sca ttered along the transverse arch and descending thoracic aorta. The re is no evidence of acute aortic pathology, specifically, there is no dissection, intramural hematoma, or contained rupture. The arch vessel branching pattern is nor mal and the visualised portion of the arch vessels are widely p atent. There is some scattered focal nonobstructive calcifica tion seen at the takeoff of the left subclavian artery at image 47 t hereafter remainder of the the left subclavian artery including whe re the DESMOND arises of calcification. The left subclavian arter y is widely patent. The left and the right internal mammary arteries are also well seen. Quantitative dimensions of the aorta are as follows: 3.2 cm at the sinuses of Valsalva (the sino-tubular ju nction is preserved); 2.7 cm at the proximal ascending thoracic aorta ; 3.5 cm at the mid ascending aorta; 2.7 cm at the distal a scending aorta; 2.3 cm at the mid transverse arch; 2.5 cm at the proxi mal descending aorta; 2.2 cm at the mid descending aorta; 2.1 cm at t he diaphragmatic hiatus. The left brachycephalic vein is 2.8 cm p osterior to the sternum; the mid ascending thoracic aorta is 5.0 cm p osterior to the sternum; the aortic root is at least 6 cm posterior t o the sternum. The distal LAD, relatively free of contrast, at desmond ge 113, is approximately 1 cm adjacent to the left rib. Please See sna pshot for details. No obvious aortic valve calcification is seen and no mitral annular calcification is appreciated. NON-VASCULAR: The visualised thyroid gland is unremark able. The chest wall and mediastinum appear no rmal. Number of small lymph nodes are seen, less than 1 cm in size, therefore considered nonspecific in nature. In the lung windows, no endobronchial le nakul is seen. Small left basal pleural effusion is identified and associated atelectatic changes are seen. Overall, no pulmonary nodule is appreciated. Limited images of the upper abdomen reve als no gross abnormality. In the AP orientation, the spleen is mildly prominent measure 13.3 cm, of uncertain significance. Correlate cli nically. No acute bony pathology is seen. Some de generative changes is noted. CONCLUSIONS: 1. The thoracic aorta is normal in cours e, contour, and calibre. There ascending thoracic aorta and aorti c root is free of calcification. No ectasia or aneurysmal dilation is seen. There is no evidence of acute aortic pathology, s pecifically, there is no dissection, intramural hematoma, or cont ained rupture. Quantitative dimension of the thoracic a andrés are as described above. Minimal nonobstructive calcification is seen in the takeoff of the left subclavian artery and the left abla tion artery is widely patent. 2. Normal coronary artery origins. Diff use calcification is seen in all 3 coronary territories, as specially in the proximal 6.7 cm of the LAD, diffuse calcification versus st ent is present. The left ventricle is enlarged. 3. Pulmonary findings as described above . Small left basal pleural effusion. The central pulmonary artery is normal i n calibre no evidence of central pulmonary artery embolism is kong ntified. 4. Other findings as described above 5. An addendum will be dictated regardi ng the non-vascular findings by the Home Health Speech Therapist Radiologist. Signed: Alfonzo Almanza MD Report Verified Date/Time: 10/28/2019 0 7:41:51 Performing Organization Address City/State/Zipcode Phone Number [facility] ECHOCARDIOGRAM REPORT - SCAN (10/25/2019 9:22 PM OFFICE MACHINE INSTALLER) Narrative Performed At This result has an attachment that is no t available. 2D Echo W/Doppler(CW/PW/Color) (10/25/2019 1:30 PM OFFICE MACHINE INSTALLER) Pathologist Sig nature Ejection Fraction [facility] ECHO HEARTLAB [facility] Specimen Narrative Performed At Transthoracic Echocardiography Report (T TE) [facility] ECHO HEARTLAB [facility] Demographics Patient Name RUCHI, Date of Study 10/25/2019 SHELLI ROSALES Gender Male Visit Number [id number] Race Room Number C832 Number Date of 1950 Referring Cathy Mott NP Age 69 year(s) Claims Assistant Patricia Garcia RD CS Flotation Tank Operator Karthik Rivera Interpreting [facility] Cardiology Physician Melisa harris MD Procedure Type of Study TTE procedure:2DECHO W DOPPLER(CW/PW/COLOR) (STAT) Indications:Pre OP CABG. Clinical History HGB 9.7 HCT 31.0 % PULMONARY EMBOLUS, SYNCOPE/BRADYCARDIA, PPM, CAD, MULTIPLE PCI X3 (MOST RECENT 01/2019), ESRD, NSTEMI, HX TAMPON BERNADETTE Contrast Medium: Definity. Height: 71 inches Weight: 125.65 kg (277 lbs) BSA: 2.42 m^2 BMI: 38.63 kg/m^2 HR: 62 bpm BP: 136/63 mmHg Summary LV endocardium is adequately visualized with IV ultrasound enhancing agent. The left ventricle is chamber size (by vol index) is normal (male - LVED vol - 34-74ml/m2). Global LV systolic function normal . The following segment(s) appear severely hypokinetic: mid to apical anteroseptal . The other segments contract normally. Grade 2 diastolic dysfunction (moderately increased LA pressure). LA size is severely enlarged (>48 ml/m2 ) . RV pacing wire is visualized . Unable to estimate peak systolic PA pressure; inadequate TR velocity signal. The estimated RA pressure by IVC dynamics 11-15 mmHg . Previous Study In comparison with the prior exam 04/27/2019 the following changes are noted: mid to apical anteroseptal severely hypokinetic . Signature Findings Left Ventricle LV endocardium is adequately visualized with IV ultrasound enhancing agent. The left ventricle is chamber size (by vol index) is normal (male - LVED vol - 34-74ml/m2). Normal LV wall thickness. T he following segment(s) appear severely hypokinetic: mid to apical anteroseptal . The other segments contract normally. LVEF by Coe's method of di sk assessment is normal (55-60%) . Global LV systolic function normal . Grade 2 diastolic dysfunction (moderately increa sed LA p ressure). Left Atrium LA size is severely enlarged (>48 ml/m2) . Right Ventricle Normal right ventricle structure and function. RV pacing wire is visualized . Right Atrium Normal righ t atrium. RA pacing wire is visualized . Aortic Valve Mild AoV cusp thickening. Mitral Valve Mild MV leaflet thickening. Tricuspid Valve A trace of tricuspid regurgitation. Unable to estimate peak systolic PA pressure; inadequate TR velocity signal. Pulmonic Valve Normal PV structure and function by limited views and Doppler. Aorta Aortic root size (SInus of Valsalva diameter) is norm al . Pericardium No evidence of pericardial effusion. IVC/SVC/PA/PV/Pleural The estimated RA pressure by IVC dynamics 11-15 mmHg . Chambers/Structures Left Atrium LA Dimension: 4.17 cm LA Area: 32.01 cm^2 LA Volume: 115.77 ml LA Vol. Index: 48 ml/m^2 Left Ventricle LVIDd: 5.64 cm LVEDV:156.12 ml LV Septum Diastolic: 0.91 cm LV PW Diastolic: 0.93 cm LVEDV Coe's:157.15 ml LVESV Coe's:68.31 ml LVEF Coe's: 56.6 % LVEDVI: 65 ml/m^2 LVESVI: 28 ml/m^ 2 LVOT Diameter: 2.42 cm Aorta Ao Root S of Linda.: 3.15 cm Doppler/Quantitative Measurements Mitral Valve MV Peak E-Wave: 1.17 m/s MV Peak A-Wave: 1.01 m/s E/A Ratio: 1.16 Peak Gradient: 5.5 mmHg Deceleration Time: 212.5 msec MV Lang. Peak: Tissue Doppler E' Septal Velocity: 0.05 m/s E/E': 24.91 E' Lateral Velocity: 0.07 m/s Aortic Valve Peak Velocity: 1.84 m/s Mean Velocity: 1.29 m/s Peak Gradient: 13.52 mmHg Mean Gradient: 7.37 mmHg AV Area (continuity): 2.91 cm^2 AV VTI: 37.56 cm AV DVI: 0.63 LVOT Peak Velocity: 1.25 m/s Peak Gradient: 6.24 mmHg Mean Velocity: 0.77 m/s Mean Gradient: 2.94 mmHg LVOT Diameter: 2.42 cm LVOT VTI: 23.76 cm LVOT Area: 4.6 cm^2 LVOT SV:109.23 ml LVOT CO: 6.77 l/min LVOT CI: 2.8 l/min/m^2 Procedure Note Interface, External Ris In - 10/25/2019 5:26 PM OFFICE MACHINE INSTALLER Transthoracic Echocardiography Report (TTE) Demographics Patient Name RUCHI, Date of Study 10/25/2019 SHELLI ROSALES Gende r Male Visit Number [id number] Race Room Number C832 Number Date of 1950 Refer ring Cathy Scherer Physi nuha Mott NP Age 69 year(s) Sonog elizabeth Garcia [facility] Flotation Tank Operator Karthik Bean [facility] Cardiology Physi nuha Meyers MD Procedure Type of Study TTE procedure:2DECHO W ANITRA R(CW/PW/COLOR) (STAT) Indications:Pre OP CABG. Clinical History HGB 9.7 HCT 31.0 % PULMONARY EMBOLUS, SYNCOPE/BRADYCARDIA, PPM, CAD, MULTIPLE PCI X3 (MOST RECENT 01/2019), ESRD, NSTEMI, HX TAMPON BERNADETTE Contrast Medium: Definity. Height: 71 inches Weight: 125.65 kg (277 lbs) BSA: 2.42 m^2 BMI: 38.63 kg/m^2 HR: 62 bpm BP: 136/63 mmHg Summary LV endocardium is adequately visualized with IV ultrasound enhancing agent. The left ventricle is chamber size (by vol index) is normal (male - LVED vol - 34-74ml/m2). Global LV systolic function normal . The following segment(s) appear severel y hypokinetic: mid to apical anteroseptal . The other segments contract normally. Grade 2 diastolic dysfunction (moderate ly increased LA pressure). LA size is severely enlarged (>48 ml/m2 ) . RV pacing wire is visualized . Unable to estimate peak systolic PA pre ssure; inadequate TR velocity signal. The estimated RA pressure by IVC dynami cs 11-15 mmHg . Previous Study In comparison with the prior exam 2018 the following changes are noted: mid to apical anteroseptal sever fallon hypokinetic . Signature Findings Left Ventricle LV endocardium i s adequately visualized with IV ultrasound enhan cing agent. The left ventricle is chamber size (by vol index) is normal (male - LVED vol - 34-74ml/m2 ). Normal LV wall thickness. The following segmen t(s) appear severely hypokinetic: mid to apical an teroseptal . The other segments contract normall y. LVEF by Coe's method of disk assessment is no rmal (55-60%) . Global LV systol ic function normal . Grade 2 diastoli c dysfunction (moderately increased LA pressure). Left Atrium LA size is sever fallon enlarged (>48 ml/m2) . Right Ventricle Normal right char tricle structure and function. RV pacing wire i s visualized . Right Atrium Normal right atr ium. RA pacing wire i s visualized . Aortic Valve Mild AoV cusp th ickening. Mitral Valve Mild MV leaflet thickening. Tricuspid Valve A trace of tricu spid regurgitation. Unable to estima te peak systolic PA pressure; inadequate TR ve locity signal. Pulmonic Valve Normal PV struct ure and function by limited views and Doppler. Aorta Aortic root size (SInus of Valsalva diameter) is normal . Pericardium No evidence of p ericardial effusion. IVC/SVC/PA/PV/Pleural The estimated RA pressure by IVC dynamics 11-15 mmHg . Chambers/Structures Left Atrium LA Dimension: 4.17 cm LA Area: 32.01 cm^2 LA Volume: 115.77 ml LA Vol. Index: 48 ml/m^2 Left Ventricle LVIDd: 5.64 cm LVEDV:156.12 ml LV Septum Diastolic: 0.91 cm LV PW Diastolic: 0.93 cm LVEDV Coe's:157.15 ml LVESV Coe's:68.31 ml LVEF Coe's: 56.6 % LVEDVI: 65 ml/m^2 LVESVI: 28 ml/m^2 LVOT Diameter: 2.42 cm Aorta Ao Root S of Linda.: 3.15 cm Doppler/Quantitative Measurements Mitral Valve MV Peak E-Wave: 1.17 m/s M V Peak A-Wave: 1.01 m/s E /A Ratio: 1.16 P eak Gradient: 5.5 mmHg D eceleration Time: 212.5 msec MV Lang. Peak: Tissue Doppler E' Septal Velocity: 0.05 m/s E /E': 24.91 E' Lateral Velocity: 0.07 m/s Aortic Valve Peak Velocity: 1.84 m/s Mean Velocity: 1.29 m/s Peak Gradient: 13.52 mmHg Mean Gradient: 7.37 mmHg AV Area (continuity): 2.91 cm^2 AV VTI: 37.56 cm AV DVI: 0.63 LVOT Peak Velocity: 1.25 m/s Pea k Gradient: 6.24 mmHg Mean Velocity: 0.77 m/s Lauren n Gradient: 2.94 mmHg LVOT Diameter: 2.42 cm LVO T VTI: 23.76 cm LVOT Area: 4.6 cm^2 LVO T SV:109.23 ml LVOT CO: 6.77 l/min LVO T CI: 2.8 l/min/m^2 Performing Organization Address City/State/Zipcode Phone Number [facility] Vein Mapping Legs Bilateral (10/24/2019 4:30 PM OFFICE MACHINE INSTALLER) [facility] nature Ejection Fraction [facility] ECHO HEARTLAB [facility] Specimen Impressions Performed At Right Impression [facility] ECHO HEARTLAB [employer] 1. There is no deep venous venous obstruction in the common femoral, profunda femoral, femoral, popliteal, posterior tibial or peroneal veins. 2. There is no superficial venous obstruction in the great saphenous vein. Left Impression 1. There is no deep venous venous obstruction in the common femoral, profunda femoral, femoral, popliteal, posterior tibial or peroneal veins. 2. There is no superficial venous obstruction in the great saphenous vein. Conclusions Summary Venous duplex imaging and compression of the bilateral lower extremities was performed. The veins were adequately visualized. The bilateral venous systems were patent and compressible with no evidence of thrombus. Superficial venous measurements are documented below. Signature Velocities are measured in cm/s ; Diameters are measured in cm LE Vein Mapping Superficial - Great Saphenous Vein Right Left + + + + + + + + !Location ! !Diameter !Depth ! !Diameter !Depth ! + + + + + + + + !Sapheno Femoral Junction ! !0.7 ! ! !0.61 ! ! + + + + + + + + !GSV High Thigh ! !0.63 ! ! !0.57 ! ! + + + + + + + + !GSV Mid Thigh ! !0.35 ! ! !0.45 ! ! + + + + + + + + !GSV Low Thigh ! !0.15 ! ! !0.52 ! ! + + + + + + + + !GSV High Calf ! !0.23 ! ! !0.43 ! ! + + + + + + + + !GSV Mid Calf ! !0.22 ! ! !0.42 ! ! + + + + + + + + !GSV Low Calf ! !0.31 ! ! !0.32 ! ! + + + + + + + + !GSV Ankle ! !0.43 ! ! !0.33 ! ! + + + + + + + + Superficial - Lesser Saphenous Vein Right Left + + + + + + + + !Location ! !Diameter !Depth ! !Diameter !Depth ! + + + + + + + + !SSV High Calf ! !0.36 ! ! !0.19 ! ! + + + + + + + + !SSV Mid Calf ! !0.29 ! ! !0.14 ! ! + + + + + + + + !SSV Low Calf ! !0.21 ! ! !0.27 ! ! + + + + + + + + !SSV Ankle ! !0.22 ! ! !0.27 ! ! + + + + + + + + Narrative Performed At [facility] - Lower Extremities Vein Mapping [facility] ECHO HEARTLAB [facility] Demographics Patient Name RUCHI, Date of Study 10/24/2019 SHELLI Paul Age 69 Visit Number [id number] Gender Male Accession Number [id number] Date of 1950 Referring Tavares Corea Room Number C630 Physician Claims Assistant Janet Sewell Interpreting Cathy Bar, FORREST, RVT Physician MD Procedure Type of Study: Veins: Lower Extremity Vein Mapping, VEIN MAPPING, LOWER EXTREMITY, BILATERAL. Indications for Study:Pre OP CABG. Patient Status:TODAY. Study Location:Vascular Lab. Technical Quality:Adequate visualization . Risk Factors History of Disease + +----+ + !Diagnosis !Date!Comments ! + +----+ + !History/Risk ! !Diabetes, CAD, Hypertension, ESRD with Left AVF ! !Factors: ! !and CHF ! + +----+ + Procedure Note Interface, External Ris In - 10/24/2019 5:31 PM OFFICE MACHINE INSTALLER [facility] - Lower Extremities Vein Mapping Demographics Patient Name Paz MIRELES ate of Study 10/24/2019 SHELLI ROSALES A [place] 69 Visit Number [id number] G dena Male Accession Number [id number] D ate of 1950 Referring Tavarse Caicedo oom Number [id number] Physician Claims Assistant Janet Sewell I nterpreting Cathy Bar, RN, RVT P cuca FARR Procedure Type of Study: Veins: Lower Extremity Vein Mapping, VE IN MAPPING, LOWER EXTREMITY, BILATERAL. Indications for Study:Pre OP CABG. Patient Status:TODAY. Study Location:Vascular Lab. Technical Quality:Adequate visualization . Risk Factors History of Disease + +----+ + !Diagnosis !Date!Comments ! + +----+ + !History/Risk ! !Diabetes, CAD, Hypertension, ESRD with Left AVF ! !Factors: ! !and CHF ! + +----+ + Impressions Right Impression 1. There is no deep venous venous obstru ction in the common femoral, profunda femoral, femoral, popliteal, po sterior tibial or peroneal veins. 2. There is no superficial venous obstru ction in the great saphenous vein. Left Impression 1. There is no deep venous venous obstru ction in the common femoral, profunda femoral, femoral, popliteal, po sterior tibial or peroneal veins. 2. There is no superficial venous obstru ction in the great saphenous vein. Conclusions Summary Venous duplex imaging and compression o f the bilateral lower extremities was performed. The veins were adequatel y visualized. The bilateral venous systems were patent and compressible wi th no evidence of thrombus. Superficial venous measurements are doc umented below. Signature Velocities are measured in cm/s ; Diamet ers are measured in cm LE Vein Mapping Superficial - Great Saphenous Vein Right Left + + + + + + + + !Location ! !Diameter !Depth ! !Diameter !Depth ! + + + + + + + + !Sapheno Femoral Junction ! !0.7 ! ! !0.61 ! ! + + + + + + + + !GSV High Thigh ! !0.63 ! ! !0.57 ! ! + + + + + + + + !GSV Mid Thigh ! !0.35 ! ! !0.45 ! ! + + + + + + + + !GSV Low Thigh ! !0.15 ! ! !0.52 ! ! + + + + + + + + !GSV High Calf ! !0.23 ! ! !0.43 ! ! + + + + + + + + !GSV Mid Calf ! !0.22 ! ! !0.42 ! ! + + + + + + + + !GSV Low Calf ! !0.31 ! ! !0.32 ! ! + + + + + + + + !GSV Ankle ! !0.43 ! ! !0.33 ! ! + + + + + + + + Superficial - Lesser Saphenous Vein Right Left + + + + + + + + !Location ! !Diameter !Depth ! !Diameter !Depth ! + + + + + + + + !SSV High Calf ! !0.36 ! ! !0.19 ! ! + + + + + + + + !SSV Mid Calf ! !0.29 ! ! !0.14 ! ! + + + + + + + + !SSV Low Calf ! !0.21 ! ! !0.27 ! ! + + + + + + + + !SSV Ankle ! !0.22 ! ! !0.27 ! ! + + + + + + + + Performing Organization Address City/State/Zipcode Phone Number [facility] Carotid doppler bilateral (10/24/2019 4:20 PM OFFICE MACHINE INSTALLER) [facility] nature Ejection Fraction [facility] Specimen Impressions Performed At [facility] 1. There is <50% diameter reduction (approximately 20% by 2-D measurement) in the internal carotid artery with a peak velocity of 109/34 cm/sec and heterogeneous plaque. 2. There is no stenosis in the external carotid artery. 3. There is non-occluding plaque in the common carotid artery. 4. The vertebral artery flow is antegrad e. 5. The subclavian artery is within normal limits where visualized. Left Impression 1. There is <50% diameter reduction (approximately 25% by 2-D measurement) in the internal carotid artery with a peak velocity of 118/26 cm/sec and heterogeneous plaque. 2. There is no stenosis in the external carotid artery. 3. There is non-occluding plaque in the common carotid artery. 4. The vertebral artery flow is antegrad e. 5. The subclavian artery is within normal limits where visualized. Conclusions Summary Carotid duplex scanning and color flow imaging were performed bilaterally. The arteries were adequately visualized. The bilateral internal carotid arteries had <50% hemodynamically insignificant stenosis (approximately 20% by 2-D measurement on the right, approximately 25% by 2-D measurement on the left) with heterogeneous plaque. The vertebral artery flow was antegrade bilaterally. Signature Velocities are measured in cm/s ; Diameters are measured in cm Carotid Right Measurements + +----+----+-----+ +---- + + !Location !PSV !EDV !Angle!%Stenosis 2D!%Stenosis Doppler!Tortuosity ! + +----+----+-----+ +---- + + !Prox CCA !103 !19.9!60 ! ! ! ! + +----+----+-----+ +---- + + !Dist CCA !88.5!19.9!60 ! ! ! ! + +----+----+-----+ +---- + + !Prox ICA !109 !34.6!60 !20% !<50% ! ! + +----+----+-----+ +---- + + !Dist ICA !88 !24.4!60 ! ! ! ! + +----+----+-----+ +---- + + !Prox ECA !146 !20.6!60 ! ! ! ! + +----+----+-----+ +---- + + !Vertebral !54.5!17 !60 ! ! ! ! + +----+----+-----+ +---- + + !Prox Subclavian!133 ! !60 ! ! ! ! + +----+----+-----+ +---- + + - There is antegrade vertebral flow noted on the right side. - Additional Measurements:ICAPSV/CCAPSV 1.23.ICAEDV/CCAEDV 1.74. Carotid Left Measurements + +----+----+-----+ +---- + + !Location !PSV !EDV !Angle!%Stenosis 2D!%Stenosis Doppler!Tortuosity ! + +----+----+-----+ +---- + + !Prox CCA !116 !24.4!60 ! ! ! ! + +----+----+-----+ +---- + + !Dist CCA !97.4!26.7!60 ! ! ! ! + +----+----+-----+ +---- + + !Prox ICA !118 !26.5!60 !25% !<50% ! ! + +----+----+-----+ +---- + + !Dist ICA !103 !28.5!60 ! ! ! ! + +----+----+-----+ +---- + + !Prox ECA !204 !22.3!60 ! ! ! ! + +----+----+-----+ +---- + + !Vertebral !53.9!16.4!60 ! ! ! ! + +----+----+-----+ +---- + + !Prox Subclavian!181 !39.3!60 ! ! ! ! + +----+----+-----+ +---- + + - There is antegrade vertebral flow noted on the left side. - Additional Measurements:ICAPSV/CCAPSV 1.21.ICAEDV/CCAEDV 1.17. Narrative Performed At [facility] - Carotid Duplex Study [facility]ART[facility] Demographics Patient Name RUCHI, Date of Study 10/24/2019 SHELLI Paul Age 69 Visit Number [id number] Gender Male Accession Number [id number] Date of 1950 Referring Tavares Cantu Corea Room Number C630 Physician Claims Assistant Janet Sewell Interpreting Cathy Bar, FORREST, RVT Physician MD Procedure Type of Study: Cerebral: Carotid, CAROTID DOPPLER, ELISABETH ATERAL. Indications for Study:Pre OP CABG. Patient Status:TODAY. Study Location:Vascular Lab. Technical Quality:Adequate visualization . Risk Factors History of Disease + +----+ + !Diagnosis !Date!Comments ! + +----+ + !History/Risk ! !Diabetes, CAD, Hypertension, ESRD with Left AVF ! !Factors: ! !and CHF ! + +----+ + Procedure Note Interface, External Ris In - 10/24/2019 5:36 PM OFFICE MACHINE INSTALLER [facility] - Carotid Duplex Study Demographics Patient Name Paz MIRELES ate of Study 10/24/2019 SHELLI ROSALES A ge 69 Visit Number [id number] G dena Male Accession Number [id number] D ate of 1950 Referring Tavares Caicedo oom Number [id number] Physician Claims Assistant Janet Sewell I nterpreting Cathy Bar RN, RVT Hunter thurman MD Procedure Type of Study: Cerebral: Carotid, CAROTID DOPPLER, ELISABETH ATERAL. Indications for Study:Pre OP CABG. Patient Status:TODAY. Study Location:Vascular Lab. Technical Quality:Adequate visualization . Risk Factors History of Disease + +----+ + !Diagnosis !Date!Comments ! + +----+ + !History/Risk ! !Diabetes, CAD, Hypertension, ESRD with Left AVF ! !Factors: ! !and CHF ! + +----+ + Impressions Right Impression 1. There is <50% diameter reduction (leonides roximately 20% by 2-D measurement) in the internal carotid artery with a pe ak velocity of 109/34 cm/sec and heterogeneous plaque. 2. There is no stenosis in the external carotid artery. 3. There is non-occluding plaque in the common carotid artery. 4. The vertebral artery flow is antegrad e. 5. The subclavian artery is within rivas l limits where visualized. Left Impression 1. There is <50% diameter reduction (leonides roximately 25% by 2-D measurement) in the internal carotid artery with a pe ak velocity of 118/26 cm/sec and heterogeneous plaque. 2. There is no stenosis in the external carotid artery. 3. There is non-occluding plaque in the common carotid artery. 4. The vertebral artery flow is antegrad e. 5. The subclavian artery is within rivas l limits where visualized. Conclusions Summary Carotid duplex scanning and color flow imaging were performed bilaterally. The arteries were adequately visualized . The bilateral internal carotid arteries had <50% hemodynamically insig nificant stenosis (approximately 20% by 2-D measurement on the right, ap proximately 25% by 2-D measurement on the left) with heterogeneous plaque. The vertebral artery flow was antegrade bilaterally. Signature Velocities are measured in cm/s ; Diamet ers are measured in cm Carotid Right Measurements + +----+----+-----+------- -----+ + + !Location !PSV !EDV !Angle!%Stenos is 2D!%Stenosis Doppler!Tortuosity ! + +----+----+-----+------- -----+ + + !Prox CCA !103 !19.9!60 ! ! ! ! + +----+----+-----+------- -----+ + + !Dist CCA !88.5!19.9!60 ! ! ! ! + +----+----+-----+------- -----+ + + !Prox ICA !109 !34.6!60 !20% !<50% ! ! + +----+----+-----+------- -----+ + + !Dist ICA !88 !24.4!60 ! ! ! ! + +----+----+-----+------- -----+ + + !Prox ECA !146 !20.6!60 ! ! ! ! + +----+----+-----+------- -----+ + + !Vertebral !54.5!17 !60 ! ! ! ! + +----+----+-----+------- -----+ + + !Prox Subclavian!133 ! !60 ! ! ! ! + +----+----+-----+------- -----+ + + - There is antegrade vertebral flow no raina on the right side. - Additional Measurements:ICAPSV/CCAPS V 1.23.ICAEDV/CCAEDV 1.74. Carotid Left Measurements + +----+----+-----+------- -----+ + + !Location !PSV !EDV !Angle!%Stenos is 2D!%Stenosis Doppler!Tortuosity ! + +----+----+-----+------- -----+ + + !Prox CCA !116 !24.4!60 ! ! ! ! + +----+----+-----+------- -----+ + + !Dist CCA !97.4!26.7!60 ! ! ! ! + +----+----+-----+------- -----+ + + !Prox ICA !118 !26.5!60 !25% !<50% ! ! + +----+----+-----+------- -----+ + + !Dist ICA !103 !28.5!60 ! ! ! ! + +----+----+-----+------- -----+ + + !Prox ECA !204 !22.3!60 ! ! ! ! + +----+----+-----+------- -----+ + + !Vertebral !53.9!16.4!60 ! ! ! ! + +----+----+-----+------- -----+ + + !Prox Subclavian!181 !39.3!60 ! ! ! ! + +----+----+-----+------- -----+ + + - There is antegrade vertebral flow no raina on the left side. - Additional Measurements:ICAPSV/CCAPS V 1.21.ICAEDV/CCAEDV 1.17. Performing Organization Address [facility] Phone Number [facility] Hepatitis B surface antigen (10/24/2019 5:41 AM OFFICE MACHINE INSTALLER) Pathologist Sig nature HBsAg Screen Nonreactive Nonreactive [facility] Specimen Blood Narrative Performed At Airbrush Painter ID - [facility] Performing Organization Address [facility] Phone Number [address] [address] CENTER EKG-SCANNED (10/23/2019 4:02 PM OFFICE MACHINE INSTALLER) Narrative Performed At This result has an attachment that is no t available. B-type Natriuretic Factor (BNP) (10/22/2019 12:30 PM OFFICE MACHINE INSTALLER) Pathologist Sig nature BNP 106 (H) 0 - 100 pg/mL [facility] Specimen Blood Narrative Performed At Airbrush Painter ID - [facility] Performing Organization Address [facility] Phone Number [address] [address] CENTER Lipase (10/22/2019 12:30 PM OFFICE MACHINE INSTALLER) Pathologist Sig nature Lipase 49 8 - 78 U/L [facility] Specimen Blood Narrative Performed At Airbrush Painter ID - [facility] Performing Organization Address [facility] Phone Number [address] [address] CENTER Hepatic function panel (10/22/2019 12:30 PM OFFICE MACHINE INSTALLER) Pathologist Sig nature Protein, Total 7.0 6.0 - 8.3 gm/dL [facility] Albumin 4.4 3.5 - 5.0 g/dL [facility] Total Bilirubin 0.8 0.2 - 1.2 mg/dL [facility] Bilirubin, Direct 0.2 0.1 - 0.5 mg/dL [facility] Alkaline Phosphatase 212 (H) 40 - 150 U/L [facility] AST 19 5 - 34 U/L [facility] ALT 28 6 - 55 U/L [facility] Specimen Blood Narrative Performed At Airbrush Painter ID - [facility] Performing Organization Address City/State/Zipcode Phone Number [facility] [address] [place] [address] CENTER ECG/EKG Interpretation (10/22/2019 11:34 AM OFFICE MACHINE INSTALLER) Narrative Performed At Bernardino Jerez MD 10/22/2019 5:58 PM ECG/EKG Interpretation Date/Time: 10/22/2019 5:57 PM Performed by: Bernardino Jerez MD Authorized by: Ritika Clarke MD The ECG was interpreted by ED physician. The ECG is interpreted as A-V block. Rate is normal rate. Abnormal conduction noted: bifascicular block. Clinical Impression: non-specific ECG after 06/29/2019 Insurance Payer Benefit Plan / Subscriber ID Effective Dates Phone Addre ss Type Group MEDICARE MEDICARE A B [id number] 2016-Presen Medicare t MCR [place] [id number] 2018-Present Medigap SUPPLEMENT/[employer] Advance Directives For more information, please contact: [phone] Type Date Recorded Patient Insulation Foreman Explanati on Advance Directives and Living 01/18/2019 12:00 AM Will Code Status Date Activated Date Inactivated Comments Full Code 11/03/2019 4:58 PM 11/06/2019 11:34 PM This code status was determined by: Patient Full Code 10/27/2019 2:33 PM 10/28/2019 5:31 PM This code status was determined by: Patient Full Code 10/23/2019 6:06 PM 10/27/2019 2:33 PM This code status was determined by: Patient Full Code 10/22/2019 4:30 PM 10/23/2019 6:06 PM This code status was determined by: Patient Full Code 04/26/2019 6:34 PM 04/30/2019 4:58 PM This code status was determined by: Patient
--- OUTSIDE RECORDS SUMMARY | 2020-06-29 17:31 | XMS REPORT | Continuity of Care Document ---
:1950 Author Organization [facility] t Address [address] [place] [address] [address]. [address] [place] [address] Care Team Providers Name Role Phone Nicola Byrne Primary Care Physician Gabriel FARR Attending Clinician Yamileth CLAYTON R Attending Clinician Unavailable Zoltan Chavez MD Attending Clinician Toby Boggs RN Attending Clinician Unavailable MARIN DOSS Attending Clinician Unavailable Marin Doss MD Attending Clinician Graham Clarke MD Attending Clinician Be FARR Attending Clinician Monica Bray MD Attending Clinician Dana FARR, Jennifer Attending Clinician Graciela FARR Attending Clinician Unavailable Gabriel FARR Attending Clinician Andie BAIN Attending Clinician Unavailable Omari YEPEZ Attending Clinician Unavailable TESSIE Attending Clinician Unavailable EVARISTO BANUELOS Attending Clinician Unavailable GRAHAM CLARKE Admitting Clinician Unavailable RADAMES LOPEZ Admitting Clinician Unavailable MARIN ESTES Admitting Clinician Unavailable JOSEE Admitting Clinician Unavailable EVARISTO BANUELOS Admitting Clinician Unavailable Payers Payer Name Policy Type Policy Effective Date Expiration Date Sour ce Number MEDICAREMEDICARE A [id number] 2016 TYRON Wagner [id number] 2016- 00:00:00 - Medical PresentMedicare Center MCR [id number] [facility] SUPPLEMENT/INDIVIDUALA 00:00:00 - Medical [id number] -PresentMedigap Problems Condition Condition Condition Status Onset Resolution Last Treating Co mments Source Name Details Category Date Date Treatment Clinician Date S/P CABG x S/P CABG x Disease Active [facility] 3 by 3 by 10-28 [facility] - Scott on Scott on 00:00: Medical 10/28/2019 10/28/2019 00 Ce nter NSTEMI NSTEMI Disease Active [facility] (non-ST (non-ST 2-18 [facility] - elevated elevated 00:00: Medica l myocardial myocardial 00 Ce nter infarction infarction ) ) Syncope, Syncope, Disease Active [facility] unspecifie unspecifie 8-11 Meri kes - d syncope d syncope 00:00: Medi lashaun type type 00 [place] Pleural Pleural Disease Active [facility] effusion effusion 5-17 [facility] - on left on left 00:00: Medical 00 [place] Pericardia Pericardia Disease Active [facility] l l 5-17 [facility] - tamponade tamponade 00:00: Medi lashaun 00 Center Chest pain Chest pain Disease Active [facility] 5-02 [facility] - 00:00: Medical 00 Center ESRD on ESRD on Disease Active [facility] hemodialys hemodialys 5-02 Meri kes - is is 00:00: Medical 00 Center Fever, Fever, Disease Active [facility] unspecifie unspecifie Meri kes - d fever d fever Medical cause cause Center Hypotensio Hypotensio Disease Active [facility] n due to n due to [facility] - hypovolemi hypovolemi Me dical a a Center ESRD (end ESRD (end Disease Active [facility] stage stage [facility] - renal renal Medical disease) disease) Center on on dialysis dialysis Acute Acute Disease Active [facility] respirator respirator Meri kes - y y Medical insufficie insufficie Ce nter ncy ncy Acute Acute Disease Active [facility] blood loss blood loss [facility] anemia anemia [facility] Thrombocyt Thrombocyt Disease Active [facility] openia openia [facility] Hyperglyce Hyperglyce Disease Active [facility] anitha anitha [facility] ESRD (end ESRD (end Disease Active [facility] stage stage [facility] - renal renal Medical disease) disease) Center Allergies, Adverse Reactions, Alerts Allergy Allergy Status Severity Reaction(s) Onset Inactive Treating Comm ents Source Name Type Date Date Clinician Seasonal Propensi Active Other (See Itchy [facility] Allergie ty to Comments) 01-03 eyes, [facility] - s adverse 00:00: runny Medical reaction 00 nose Center s Sulfa Drug Active Hives [facility] (Sulfona Allergy 01-03 [facility] - mide 00:00: Medical Antibiot 00 Center ics) Tetracyc Drug Active Rash welps [facility] lines Allergy 01-03 [facility] - 00:00: Medical 00 Center Family History Family Member Diagnosis Comments Start Date Stop Date Source Natural brother Cancer [facility] Natural father Cancer [facility] Natural mother Heart disease [facility] Social History Social Habit Start Date Stop Date Quantity Comments Source History [facility] Alcohol Std Drinks Medica l Center History [facility] Alcohol Binge Medical [place] [facility] Sex Assigned At [facility] Tobacco use and 2019-10-29 2019-10-29 Never used [facility] exposure 00:00:00 00:00:00 [facility] Alcohol intake 2019-10-29 2019-10-[address] [facility] 00:00:00 00:00:00 non-drinker of Medical Ce nter alcohol (finding) History [facility] 2019-01-03 2019-01-03 1 [facility] - Alcohol Frequency 00:00:00 00:00:00 [facility] Smoking Status Start Date Stop Date Source Never smoker [facility] M edical [place] Medications Ordered Filled Start Stop Current Ordering Indication Dosage Frequency Signature Comments Components Source Medication Medication Date Date Medication? Clinician (SIG) Name Name aspirin 81 2020- No 81mg QD Take [address] [facility] [address] MG chewable 3-05 03-05 tablet (81 L ukes - tablet 00:00: 23:59 mg total) Medic al 00 :00 by mouth Center daily. fexofenadin Yes 180mg QD Take [address] e (JULISSA) 3-04 mg by [facility] - 180 MG 21:34: mouth Medical tablet 09 nightly. Center montelukast 2020-0 Yes 10mg QD Take [address] (SINGULAIR) 3-04 by mouth Luke s - 10 mg 21:34: nightly. Medical tablet 09 Center pantoprazol 2020-0 Yes 40mg Q.5D Take [address] [facility] e 3-04 by mouth 2 [facility] - (PROTONIX) 21:34: (two) Medica l 40 MG 09 times Center tablet daily . omega-3 2020-0 Yes 2g Q.5D Take [address] [facility] fatty 3-04 by mouth 2 [facility] - acids-fish 21:34: (two) Medica l oil 09 times Center 340-1,000 daily . mg Cap per capsule cholecalcif 2020-0 Yes [id number] QD Take [facility] karoline, 3-04 10,000 [facility] - vitamin D3, 21:34: Units by Az dical 5,000 unit 09 mouth Center Tab daily . sevelamer 2020-0 Yes 2400mg Take 2,[address] (RENVELA) 3-04 mg by [facility] - 800 mg 21:34: mouth 3 Medical tablet 09 (three) Center times daily with meals . docusate 2020-0 Yes 100mg Q.5D Take [address] sodium 3-04 mg by [facility] - (COLACE) 21:34: mouth 2 Medica l 100 MG 09 (two) Center capsule times daily. HYDROcodone 2020-0 Yes 1{tbl} Take [address] -acetaminop 3-04 tablet by Heidi es - hen (NORCO 21:34: mouth 2 Medi lashaun 7.5-325) 09 (two) Center 7.5-325 mg times per tablet daily as needed for Pain. polyethylen 2020-0 Yes 17g QD Take [address] e glycol 3-04 by mouth [facility] - (GLYCOLAX) 21:34: daily. Medic al 17 gram 09 [place] packet lidocaine-p 2020-0 Yes Apply [facility] t rilocaine 3-04 topically [facility] - (EMLA) 21:34: as needed. Medic al 2.5-2.5 % 09 [place] cream rosuvastati 2019-0 2020- No 10mg QD Take [address] [facility] n (CRESTOR) 3-04 03-04 by mouth Heidi es - 10 MG 17:42: 00:00 nightly. Medical tablet 36 :00 Center clopidogrel 2020-0 2020- No 75mg QD Take [address] [facility] (PLAVIX) 75 11-05 by mouth Heidi es - mg tablet 17:42: 00:00 daily. Medic al 36 :00 Center insulin 2019- Yes [address] glargine 11-05 in the [facility] - (LANTUS) 00:00: morning Medica l 100 unit/mL 00 and 10 Center injection units at night. atorvastati No 40mg QD Take [address] n (LIPITOR) 11-05 tablet (40 L ukes - 40 MG 00:00: 23:59 mg total) Medica l tablet 00 :00 by mouth Center nightly. metoprolol 2020- No 12.5mg Q.5D Take 0.[address] tartrate 11-05- tablets [facility]ukes - (LOPRESSOR) 00:00: 23:59 (12.5 mg M edical 25 MG 00 :00 total) by Center tablet mouth 2 (two) times daily Hold the morning dose on dialysis days.. midodrine 2019- No 10mg Q.[id number] Take [address] (PROAMATINE 11-05 [id number] tablet (10 [facility] - ) 10 MG 00:00: 23:59 3W mg total) Medi lashaun tablet 00 :00 by mouth 3 Center (three) times a week MON/MON/ I for 30 days Give 30 minutes prior to HD. HYDROmorpho 2019- No 2mg Take [address] [facility] ne 10-22 by mouth [facility] - (DILAUDID) 11:18: 00:00 daily as Me dical 2 MG tablet 32 :00 needed for Ce nter Pain . insulin 2019- No 40 units [facility] t glargine 04-30 in the [facility] - (LANTUS) 00:00: 00:00 morning Medic al 100 unit/mL 00 :00 and 20 Center injection units at night. insulin 2019- No type [address] aspart 04-30 diabetes before [facility] - U-100 00:00: 00:00 mellitus large Medica l (NOVOLOG) 00 :00 meals. Center 100 unit/mL injection predniSONE 2019- No Starting [facility] (DELTASONE) 04-30: Take L ukes - 10 MG 00:00: 00:00 20mg once Medica l tablet 00 :00 per day Center for 3 days, then take 10mg once per day for 3 days, then stop taking. apixaban Yes 2.5mg Q.5D Take [address] (ELIQUIS) 5-07 tablet [facility] - 2.5 mg Tab 00:00: (2.5 mg Medi lashaun tablet 00 total) by Center mouth 2 (two) times daily. gabapentin 2019- No 300mg Q.[id number] Take [address] (NEURONTIN) 5-07 05-06 [id number] capsule [facility] - 300 MG 00:00: 23:59 3D (300 mg Medical capsule 00 :00 total) by Center mouth 3 (three) times daily. ciclopirox 2019- No 1{appli QD [address] [facility] (LOPROX) 326 18 cation} applicatio L ukes - 0.77 % 00:00: 00:00 n daily. Medica l cream 00 :00 [place] Vital Signs Vital Name Observation Time Observation Value Comments Source Systolic blood 2019-11-06 124 mm[Hg] [facility] - pressure 20:38:00 [facility] Diastolic blood 2019-11-06 53 mm[Hg] [facility] - pressure 20:38:00 [facility] Heart rate 2019-11-06 83 /min [facility] - 20:38:00 [facility] Body temperature 2019-11-06 37.17 Ana [facility] - 20:38:00 [facility] Respiratory rate 2019-11-06 18 /min [facility] - 20:38:00 [facility] Oxygen saturation 2019-11-06 100 /min pt removed pulse [facility] - in Arterial blood 20:38:00 ox immediatly and Medic al Center by Pulse oximetry said thats good enough Body weight 2019-11-[address] [facility] - 18:10:00 [facility] BMI 2019-11-06 40.03 kg/m2 [facility] - 18:10:00 [facility] Body height 2019-10-22 180.3 cm [facility] - 11:12:00 Medical Center Procedures Procedure Date / Time Performing Clinician Source Performed ARRYTHMIA IMPLANT REPORT - 2019-11-18 17:00:07 Provider, [facility] ARRYTHMIA IMPLANT REPORT - 2019-11-14 16:00:15 Provider, [facility] RHYTHM STRIP - SCAN 2019-11-12 15:20:26 Provider, [facility] TRANSFUSION SERVICE REPORT 2019-11-08 17:50:28 Provider, [facility] RHYTHM STRIP - SCAN 2019-11-08 11:02:07 Provider, [facility] VASCULAR DIAGRAM -SCAN 2019-11-08 11:02:03 Provider, [facility] CARDIAC CATH REPORT - SCAN 2019-11-08 11:01:54 Provider, [facility] PREPARE LEUKO-REDUCED RBC 2019-11-07 23:54:00 Sandra Bray [facility] TRANSFUSION SERVICE REPORT 2019-11-07 17:50:44 Provider, [facility] PREPARE LEUKO-REDUCED RBC 2019-11-06 23:54:00 Sandra Bray [facility] HEMODIALYSIS INPATIENT 2019-11-06 18:10:00 Katty Murdock [facility] TRANSFUSION SERVICE REPORT 2019-11-06 17:51:35 Provider, [facility] XR CHEST 1 VIEW 2019-11-06 11:20:00 Pepe Corea [facility] - PORTABLE/BEDSIDE Medical Center POCT-GLUCOSE METER 2019-11-06 11:19:00 Sandra Bray [facility] TRANSFUSE LEUKO-REDUCED 2019-11-06 09:33:20 Sandra Bray [facility] - RED BLOOD CELLS [facility] BASIC METABOLIC PANEL (7) 2019-11-06 04:40:00 Sandra Bray [facility] MAGNESIUM 2019-11-06 04:40:00 Asa Sandra [facility] PHOSPHORUS 2019-11-06 04:40:00 Asa [facility] CBC W/PLT COUNT & AUTO 2019-11-06 04:40:00 Asa [facility] (CELLAVISION MANUAL DIFF) 2019-11-06 04:40:00 Sandra Bray [facility] TRANSFUSE LEUKO-REDUCED 2019-11-06 00:57:58 Asa [facility] - RED BLOOD CELLS [facility] POCT-GLUCOSE METER 2019-11-05 21:56:00 Asa [facility] TYPE AND SCREEN, AUTOMATED 2019-11-05 18:03:00 [facility] 12-LEAD 2019-11-05 16:53:32 Unknown, [facility] TROPONIN I 2019-11-05 16:49:00 [facility] POCT-GLUCOSE METER 2019-11-05 15:09:00 Asa [facility] HEMODIALYSIS INPATIENT 2019-11-05 14:53:40 Mathieu [facility] POCT-GLUCOSE METER 2019-11-05 11:56:00 Asa [facility] POCT-GLUCOSE METER 2019-11-05 07:55:00 [facility] BASIC METABOLIC PANEL (7) 2019-11-05 05:10:00 Sandra Bray [facility] MAGNESIUM 2019-11-05 05:10:00 Asa [facility] PHOSPHORUS 2019-11-05 05:10:00 [facility] CBC W/PLT COUNT & AUTO 2019-11-05 05:10:00 Asa [facility] DIFFERENTIAL [facility] POCT-GLUCOSE METER 2019-11-04 21:09:00 [facility] XR CHEST 1 VIEW 2019-11-04 18:50:00 Rebecca Neil [facility]SIDE Medical Center TRANSFUSION SERVICE REPORT 2019-11-04 17:50:15 Provider, Default [facility] POCT-GLUCOSE METER 2019-11-04 17:48:00 Asa [facility] POCT-GLUCOSE METER 2019-11-04 11:35:00 [facility] HEMODIALYSIS INPATIENT 2019-11-04 08:13:15 Jenn Jonas [facility] POCT-GLUCOSE METER 2019-11-04 07:50:00 [facility] 2019-11-04 07:19:00 Nunu Ospina [facility] BASIC METABOLIC PANEL (7) 2019-11-04 07:19:00 Mark Anthony Nagel [facility] CBC W/PLT COUNT & AUTO 2019-11-04 07:19:00 Mark Anthony Nagel [facility] (CELLAVISION MANUAL DIFF) 2019-11-04 07:19:00 Mark Anthony Nagel [facility] PREPARE LEUKO-REDUCED RBC 2019-11-03 23:54:00 Erika Braga ma [facility] POCT-GLUCOSE METER 2019-11-03 21:19:00 [facility] TRANSFUSION SERVICE REPORT 2019-11-03 17:51:29 Provider, Default [facility] POCT-GLUCOSE METER 2019-11-03 16:44:00 [facility] PO[facility]SE METER 2019-11-03 12:42:[facility] PO[facility]-GLUCOSE METER 2019-11-03 07:36:00 [facility] XR CHEST 1 VIEW 2019-11-03 06:37:00 Mark Anthony Nagel [facility] PORTABLE/BEDSIDE [facility] HEMODIALYSIS INPATIENT 2019-11-03 04:27:37 Mitzy Head [facility] BASIC METABOLIC PANEL (7) 2019-11-03 03:44:00 Count Includes [facility], [facility] Countyvictor manuel [facility] MAGNESIUM 2019-11-03 03:44:00 Count Includes [facility], [facility] PHOSPHORUS 2019-11-03 03:44:00 Count Includes [facility], [facility] CALCIUM, IONIZED 2019-11-03 03:44:00 Count Includes [facility], [facility] CBC W/PLT COUNT & AUTO 2019-11-03 03:44:00 Count Includes [facility], [facility]abella[facility] Countynet[facility] (CELLAVISION MANUAL DIFF) 2019-11-03 03:44:00 Count Includes [facility], [facility] POCT-GLUCOSE METER 2019-11-02 22:23:00 Be [facility] BASIC METABOLIC PANEL (7) 2019-11-02 20:52:00 Rebecca Neil [facility] MAGNESIUM 2019-11-02 20:52:00 Rebecca Neil [facility] PHOSPHORUS 2019-11-02 20:52:00 Rashaad [facility] BLOOD GAS, ARTERIAL 2019-11-02 20:52:00 Rashaad [facility] HEMOGLOBIN AND HEMATOCRIT 2019-11-02 20:52:00 Rebecca Neil [facility] XR CHEST 1 VIEW 2019-11-02 20:30:00 [facility] Medical [place] TRANSFUSE LEUKO-REDUCED 2019-11-02 18:57:25 Eriak Braga [facility] RED BLOOD CELLS [facility] POCT-GLUCOSE METER 2019-11-02 17:04:00 Be [facility] TYPE AND SCREEN, AUTOMATED 2019-11-02 13:30:00 Erika Braga fela [facility] POCT-GLUCOSE METER 2019-11-02 11:53:00 Be [facility] POCT-GLUCOSE METER 2019-11-02 07:24:00 Be [facility] XR CHEST 1 VIEW 2019-11-02 03:45:00 [facility]abellaL[facility] Countynet[facility]SIDE Medical [place] BASIC METABOLIC PANEL (7) 2019-11-02 02:36:00 Count Includes [facility], [facility] Ary [facility] MAGNESIUM 2019-11-02 02:36:00 Count Includes [facility], [facility] PHOSPHORUS 2019-11-02 02:36:00 Count Includes [facility], [facility] CALCIUM, IONIZED 2019-11-02 02:36:00 Count Includes [facility], [facility] CBC W/PLT COUNT & AUTO 2019-11-02 02:36:00 Count Includes [facility] Hospital[facility] POCT-GLUCOSE METER 2019-11-01 23:00:00 Be [facility] POCT-GLUCOSE METER 2019-11-01 16:34:00 [facility] BASIC METABOLIC PANEL (7) 2019-11-01 16:31:00 Stacy Oliver [facility] PHOSPHORUS 2019-11-01 16:31:00 [facility] MAGNESIUM 2019-11-01 16:31:00 [facility] BASIC METABOLIC PANEL (7) 2019-11-01 13:09:00 [facility] campusSt[facility] PHOSPHORUS 2019-11-01 13:09:00 [facility] MAGNESIUM 2019-11-01 13:09:00 [facility] CALCIUM, IONIZED 2019-11-01 12:42:00 [facility] POCT-GLUCOSE METER 2019-11-01 12:01:00 [facility] SLED (SHIFT THERAPY) 2019-11-01 11:35:00 [facility] POCT-GLUCOSE METER 2019-11-01 07:26:00 Be [facility] MAGNESIUM 2019-11-01 04:29:00 [facility] PHOSPHORUS 2019-11-01 04:29:00 [facility] BASIC METABOLIC PANEL (7) 2019-11-01 04:29:00 Vivian Wells Polyc lillian [facility] BLOOD GAS, ARTERIAL 2019-11-01 04:29:00 Priscilla Tanwie Polycarp [facility] CBC (HEMOGRAM ONLY) 2019-11-01 04:29:00 Kalina Wellse Polycarp [facility] XR CHEST 1 VIEW 2019-11-01 02:45:00 Kalina Wellse Polycarp [facility] PORTABLE/BEDSIDE Medical Center PHOSPHORUS 2019-10-31 22:54:00 Erika Braga Lucretia [facility] BASIC METABOLIC PANEL (7) 2019-10-31 22:54:00 Mark Anthony Nagel [facility] MAGNESIUM 2019-10-31 22:54:00 Mark Anthony Nagel [facility] GLUCOSE 2019-10-31 22:54:00 Erika Braga Lucretia [facility] POTASSIUM 2019-10-31 22:54:00 Erika Braga [facility] HEMOGLOBIN AND HEMATOCRIT 2019-10-31 22:54:00 Nunu Ospina [facility] POCT-GLUCOSE METER 2019-10-31 18:13:00 Be [facility] POTASSIUM 2019-10-31 16:36:00 [facility] POCT-GLUCOSE METER 2019-10-31 12:34:00 [facility] POCT-GLU[facility]SE METER 2019-10-31 09:39:00 [facility] POTASSIUM 2019-10-31 09:36:00 [facility] MAGNESIUM 2019-10-31 09:36:00 [facility] PHOSPHORUS 2019-10-31 09:36:00 [facility] XR CHEST 1 VIEW 2019-10-31 05:02:00 Priscilla, Tanwie Polycarp [facility] PORTABLE/BEDSIDE Medical Center BASIC METABOLIC PANEL (7) 2019-10-31 03:31:00 Walter Wellswie Polyc lillian [facility] BLOOD GAS, ARTERIAL 2019-10-31 03:31:00 Priscilla, Tanwie Polycarp [facility] CBC (HEMOGRAM ONLY) 2019-10-31 03:31:00 Priscilla, Tanwie Polycarp [facility] PHOSPHORUS 2019-10-31 03:31:00 Priscilla, Tanwie Polycarp [facility] MAGNESIUM 2019-10-31 03:31:00 Priscilla Tanwie Polycarp [facility] PT/APTT 2019-10-31 03:31:00 Priscilla Tanwie Polycarp [facility] PROTHROMBIN TIME/INR 2019-10-31 03:31:00 Kalina Wellse Polycarp C [facility] POTASSIUM 2019-10-31 00:46:00 [facility] POCT-GLUCOSE METER 2019-10-31 00:42:00 Nikky Lr [facility] POTASSIUM 2019-10-30 19:58:00 [facility] MAGNESIUM 2019-10-30 19:58:00 [facility] PHOSPHORUS 2019-10-30 19:58:00 [facility] HEMODIALYSIS INPATIENT 2019-10-30 18:33:00 [facility] TRANSFUSION SERVICE REPORT 2019-10-30 18:05:15 Provider, Huy [facility] - - SCAN Scanning Medical [place] VASCULAR DIAGRAM -SCAN 2019-10-30 17:50:53 Provider, Default [facility] RHYTHM STRIP - SCAN 2019-10-30 15:20:48 Provider, Default [facility] POCT-GLUCOSE METER 2019-10-30 13:42:00 Be [facility] BLOOD GAS, ARTERIAL 2019-10-30 10:46:[address] [facility] POCT-GLUCOSE METER 2019-10-30 09:55:00 Be [facility] POTASSIUM 2019-10-30 09:37:00 [facility] MAGNESIUM 2019-10-30 09:37:00 [facility] PHOSPHORUS 2019-10-30 09:37:00 [facility] POCT-GLUCOSE METER 2019-10-30 06:27:00 Be [facility] BLOOD GAS, ARTERIAL 2019-10-30 04:19:[address] [facility] PHOSPHORUS 2019-10-30 04:19:00 [facility] BASIC METABOLIC PANEL (7) 2019-10-30 04:19:00 Vivian Wells lillian [facility] CBC (HEMOGRAM ONLY) 2019-10-30 04:19:00 Vivian Wells Polycarp [facility] MAGNESIUM 2019-10-30 04:19:00 Priscilla Tanwie Polycarp [facility] XR CHEST 1 VIEW 2019-10-30 03:29:00 Priscilla Tankele Polycarp [facility] PORTABLE/BEDSIDE Medical Center POCT-GLUCOSE METER 2019-10-30 03:13:00 Be [facility] POTASSIUM 2019-10-30 01:04:00 [facility] POCT-GLUCOSE METER 2019-10-30 01:02:00 Be [facility] PREPARE RBC 2019-10-29 23:54:00 Scott [facility] PREPARE PLATELETS 2019-10-29 23:54:00 Scott [facility] POCT-GLUCOSE METER 2019-10-29 23:49:00 Be [facility] POCT-GLUCOSE METER 2019-10-29 21:14:00 eB [facility] CALCIUM, IONIZED 2019-10-29 19:36:00 [facility] LACTIC ACID, ARTERIAL 2019-10-29 19:36:00 Priscilla, Tanpre [facility] BLOOD GAS, ARTERIAL 2019-10-29 19:36:[address] [facility] SODIUM NA-STAT LAB 2019-10-29 19:36:00 PriscillaKalinae Polycarp [facility] POTASSIUM-STAT LAB 2019-10-29 19:36:00 Priscilla Tanwie Polycarp [facility] GLUCOSE-STAT LAB 2019-10-29 19:36:00 [facility] HGB/HCT (H&H) - STAT LAB 2019-10-29 19:36:00 Priscilla Walterfabiana [facility] TRANSFUSION SERVICE REPORT 2019-10-29 18:56:02 Andrew [facility] POTASSIUM 2019-10-29 16:43:00 Benito [facility] BLOOD GAS, ARTERIAL 2019-10-29 16:43:00 Elissa Lee [facility] POCT-GLUCOSE METER 2019-10-29 16:25:00 Be [facility] BLOOD GAS, ARTERIAL 2019-10-29 11:47:00 [facility] POTASSIUM 2019-10-29 11:43:00 Benito [facility] POCT-GLUCOSE METER 2019-10-29 11:12:00 Be [facility] POTASSIUM 2019-10-29 08:17:00 [facility] MAGNESIUM 2019-10-29 08:17:00 [facility] PHOSPHORUS 2019-10-29 08:17:00 [facility] 2019-10-29 06:15:00 [facility] POCT-GLUCOSE METER 2019-10-29 04:25:00 [facility] XR CHEST 1 VIEW 2019-10-29 03:53:00 Mark Anthony Nagel [facility]/BEDSIDE Medical [place] CALCIUM, IONIZED 2019-10-29 02:43:00 Valluri [facility] GLUCOSE-STAT LAB 2019-10-29 02:35:00 Valluri [facility] BLOOD GAS, ARTERIAL 2019-10-29 02:35:00 Valluri, [facility] PROTHROMBIN TIME/INR 2019-10-29 02:35:00 Valluwv, [facility] PT/APTT 2019-10-29 02:35:00 Valluri [facility] BASIC METABOLIC PANEL (7) 2019-10-29 02:34:00 Mark Anthony Nagel [facility] MAGNESIUM 2019-10-29 02:34:00 Mark Anthony Nagel [facility] PHOSPHORUS 2019-10-29 02:34:00 Mark Anthony Nagel [facility] CBC (HEMOGRAM ONLY) 2019-10-29 02:34:00 Mark Anthony Nagel [facility] OXYGEN SATURATION, 2019-10-29 02:34:00 Erika Braga [facility] LACTIC ACID, ARTERIAL 2019-10-29 02:34:00 Erika Bragaoma C [facility] POCT-GLUCOSE METER 2019-10-29 00:17:00 [facility] POCT-GLUCOSE METER 2019-10-28 21:52:00 [facility] LACTIC ACID, ARTERIAL 2019-10-28 21:45:00 Erika Bragaeoma C [facility] POTASSIUM 2019-10-28 21:45:00 [facility] MAGNESIUM 2019-10-28 21:45:00 [facility] PHOSPHORUS 2019-10-28 21:45:00 [facility] POCT-GLUCOSE METER 2019-10-28 19:30:00 [facility] POCT-GLUCOSE METER 2019-10-28 18:21:00 [facility] XR CHEST 1 VIEW 2019-10-28 17:21:00 Eriak Braga [facility] PORTABLE/BEDSIDE Medical Center BASIC METABOLIC PANEL (7) 2019-10-28 16:55:00 Erika Braga ma [facility] MAGNESIUM 2019-10-28 16:55:00 Erika Braga [facility] CALCIUM, IONIZED 2019-10-28 16:55:00 Erika Braga Lucretia [facility] LACTIC ACID, ARTERIAL 2019-10-28 16:55:00 Erika Bragaeoma C [facility] PROTHROMBIN TIME/INR 2019-10-28 16:55:00 Erika Braga [facility] APTT 2019-10-28 16:55:00 Erika Braga [facility] FIBRINOGEN 2019-10-28 16:55:00 Erika Braga [facility] BLOOD GAS, ARTERIAL 2019-10-28 16:55:00 [facility], 2019-10-28 16:55:00 Erika Braga [facility] SODIUM NA-STAT LAB 2019-10-28 16:55:00 Erika Braga [facility] POTASSIUM-STAT LAB 2019-10-28 16:55:00 Erika Braga [facility] GLUCOSE-STAT LAB 2019-10-28 16:55:00 Erika Braga [facility] HGB/HCT (H&H) - STAT LAB 2019-10-28 16:55:00 Erika Braga [facility] PHOSPHORUS 2019-10-28 16:55:00 Mark Anthony Nagel Hernán [facility] PREPARE PLASMA 2019-10-28 16:55:[address] [facility] CBC W/PLT COUNT & AUTO 2019-10-28 16:55:00 Mark Anthony Nagel [facility] CALCIUM, IONIZED 2019-10-28 15:34:07 Dasha Cortez [facility] BLOOD GAS, ARTERIAL 2019-10-28 15:34:07 Dana Dasha [facility] SODIUM NA-STAT LAB 2019-10-28 15:34:07 Dana Dasha [facility] POTASSIUM-STAT LAB 2019-10-28 15:34:07 Dasha Cortez [facility] GLUCOSE-STAT LAB 2019-10-28 15:34:07 Dana Dasha [facility] HGB/HCT (H&H) - STAT LAB 2019-10-28 15:34:07 Dasha Cortez I [facility] TRANSFUSE LEUKO-REDUCED 2019-10-28 15:21:38 Dasha Cortez [facility] - RED BLOOD CELLS [facility] TRANSFUSE LEUKO-REDUCED 2019-10-28 15:03:00 Dasha Cortez [facility] PLATELETS [facility] CALCIUM, IONIZED 2019-10-28 14:58:43 Dana [facility] BLOOD GAS, ARTERIAL 2019-10-28 14:58:[address] [facility] SODIUM NA-STAT LAB 2019-10-28 14:58:[address] [facility] POTASSIUM-STAT LAB 2019-10-28 14:58:[address] [facility] GLUCOSE-STAT LAB 2019-10-28 14:58:43 Dana [facility] HGB/HCT (H&H) - STAT LAB 2019-10-28 14:58:[address] [facility] TRANSFUSE LEUKO-REDUCED 2019-10-28 14:48:16 Dana [facility] RED BLOOD CELLS [facility] POCT-ACT 2019-10-28 14:35:00 Nikky Lr [facility] TRANSFUSE LEUKO-REDUCED 2019-10-28 14:33:36 Dana [facility] PLATELETS [facility] CALCIUM, IONIZED 2019-10-28 14:26:20 Dana [facility] PROTHROMBIN TIME/INR 2019-10-28 14:26:[address] [facility] APTT 2019-10-28 14:26:[address] [facility] FIBRINOGEN 2019-10-28 14:26:[address] [facility] PLATELET COUNT 2019-10-28 14:26:[address] [facility] BLOOD GAS, ARTERIAL 2019-10-28 14:26:[address] [facility] SODIUM NA-STAT LAB 2019-10-28 14:26:[address] [facility] POTASSIUM-STAT LAB 2019-10-28 14:26:[address] [facility] GLUCOSE-STAT LAB 2019-10-28 14:26:20 Dana [facility] HGB/HCT (H&H) - STAT LAB 2019-10-28 14:26:20 DanaDasha [facility] I [facility] CBC W/PLT COUNT & AUTO 2019-10-28 14:26:00 Erika Braga [facility] POCT-ACT 2019-10-28 13:55:00 [facility] BLOOD GAS, ARTERIAL 2019-10-28 13:53:34 Scott [facility] SODIUM NA-STAT LAB 2019-10-28 13:53:34 Scott [facility] POTASSIUM-STAT LAB 2019-10-28 13:53:34 Scott [facility] GLUCOSE-STAT LAB 2019-10-28 13:53:34 Scott [facility] HGB/HCT (H&H) - STAT LAB 2019-10-28 13:53:34 Scott [facility] POCT-ACT 2019-10-28 13:26:00 [facility] BLOOD GAS, ARTERIAL 2019-10-28 13:21:53 Scott [facility] SODIUM NA-STAT LAB 2019-10-28 13:21[facility]53 [facility] 2019-10-28 13:21:53 Scott [facility] GLUCOSE-STAT LAB 2019-10-28 13:21:53 Scott [facility] HGB/HCT (H&H) - STAT LAB 2019-10-28 13:21:53 Scott [facility] POCT-ACT 2019-10-28 12:54:00 [facility] LACTIC ACID, ARTERIAL 2019-10-28 12:52:48 Scott [facility] BLOOD GAS, ARTERIAL 2019-10-28 12:51:[address] [facility] SODIUM NA-STAT LAB 2019-10-28 12:51:53 Scott [facility] POTASSIUM-STAT LAB 2019-10-28 12:51:53 Scott [facility] GLUCOSE-STAT LAB 2019-10-28 12:51:53 Scott [facility] HGB/HCT (H&H) - STAT LAB 2019-10-28 12:51:53 Scott [facility] POCT-ACT 2019-10-28 12:33:00 Be [facility] BLOOD GAS, ARTERIAL 2019-10-28 12:31:33 Scott [facility] SODIUM NA-STAT LAB 2019-10-28 12:31:33 Scott [facility] POTASSIUM-STAT LAB 2019-10-28 12:31:33 Scott [facility] GLUCOSE-STAT LAB 2019-10-28 12:31:33 Scott [facility] HGB/HCT (H&H) - STAT LAB 2019-10-28 12:31:33 Scott [facility] AFB CULTURE + SMEAR 2019-10-28 12:13:25 [facility] ANAEROBIC CULTURE 2019-10-28 12:13:25 Scott [facility] FUNGUS CULTURE + SMEAR 2019-10-28 12:13:25 [facility] SUR[facility] OBTAINED 2019-10-28 12:13:25 [facility] + GRAM STAIN [facility] ter POCT-ACT 2019-10-28 12:02:00 Be [facility] BLOOD GAS, ARTERIAL 2019-10-28 11:59:43 [facility] NA-STAT [facility] 2019-10-28 11:59:43 Scott [facility] POTASSIUM-STAT LAB 2019-10-28 11:59:43 Scott [facility] GLUCOSE-STAT LAB 2019-10-28 11:59:43 Scott [facility] HGB/HCT (H&H) - STAT LAB 2019-10-28 11:59:43 Scott [facility] POCT-ACT 2019-10-28 11:36:00 Be [facility] ANESTHESIA STEPHANIE 2019-10-28 09:31:[address] [facility] BLOOD GAS, ARTERIAL 2019-10-28 08:27:[address] [facility] SODIUM NA-STAT LAB 2019-10-28 08:27:[address] [facility] POTASSIUM-STAT LAB 2019-10-28 08:27:[address] [facility] GLUCOSE-STAT LAB 2019-10-28 08:27:06 Dana [facility] HGB/HCT (H&H) - STAT LAB 2019-10-28 08:27:06 Dasha Cortez I [facility] STERNOTOMY 2019-10-28 07:25:00 Scott [facility] BYPASS,AORTO CORONARY 2019-10-28 07:25:00 Scott [facility] DESMOND/SVG [facility] STEPHANIE,3D 2019-10-28 07:25:00 Scott [facility] ENDOSCOPIC HARVEST,VEIN 2019-10-28 07:25:00 Scott [facility] ECG 12-LEAD 2019-10-28 06:41:02 Unknown, Hl7 [facility] PT/APTT 2019-10-28 06:20:00 Mark Anthony Nagel [facility] COMPREHENSIVE METABOLIC 2019-10-28 04:27:00 Mark Anthony Nagel [facility] PROTHROMBIN TIME/INR 2019-10-28 04:27:00 Mark Anthony Nagel [facility] MAGNESIUM 2019-10-28 04:27:00 Mark Anthony Nagel [facility] CBC W/PLT COUNT & AUTO 2019-10-28 04:27:00 Mark Anthony Nagel [facility] TYPE AND SCREEN, AUTOMATED 2019-10-28 00:15:00 Mark Anthony Nagel [facility] POCT-GLUCOSE METER 2019-10-27 22:10:00 Vince Ritika Graham [facility] POCT-GLUCOSE METER 2019-10-27 17:06:00 Vince Marne Graham [facility] ECG 12-LEAD 2019-10-27 16:21:28 Unknown, Hl7 [facility] POCT-GLUCOSE METER 2019-10-27 12:32:00 Vince Ritika Ann [facility] CTA CHEST 2019-10-27 11:23:00 Pepe Corea [facility] APTT 2019-10-27 08:29:00 Venkata [facility] POCT-GLUCOSE METER 2019-10-27 07:43:00 Vince Ritikamelonie Andrea [facility] BASIC METABOLIC PANEL (7) 2019-10-27 03:44:00 Erik Valencia CH, I [facility] CBC (HEMOGRAM ONLY) 2019-10-27 03:44:00 Venkata [facility] APTT 2019-10-27 01:35:00 Venkata [facility] POCT-GLUCOSE METER 2019-10-26 22:22:00 Vince[facility] 2019-10-26 17:47:00 [facility] POCT-GLUCOSE METER 2019-10-26 16:54:00 [facility] APTT 2019-10-26 16:51:00 VenkataResnick [facility] POCT-GLUCOSE METER 2019-10-26 12:15:00 Vince [facility] APTT 2019-10-26 09:58:00 [facility]ataRes[facility] ECG 12-LEAD 2019-10-26 08:45:18 Unknown, Hl7 [facility] POCT-GLUCOSE METER 2019-10-26 07:50:00 Vince [facility] BASIC METABOLIC PANEL (7) 2019-10-26 03:16:00 [facility] (HE[facility] ONLY[facility] 2019-10-26 03:16:00 [facility] APTT 2019-10-26 03:16:00 [facility] POCT-GLUCOSE METER 2019-10-25 21:32:00 [facility] - 2019-10-25 21:22:23 Provider, Default [facility] APTT 2019-10-25 19:00:00 [facility]ata[facility] POCT-GLUCOSE METER 2019-10-25 16:46:00 Vince [facility] APTT 2019-10-25 16:26:00 [facility]ata[facility] POCT-GLUCOSE METER 2019-10-25 13:47:00 [facility] 2D ECHO W/ DOPPLER 2019-10-25 13:30:50 Cathy Mott [facility] (CW/PW/COLOR) [facility] RHYTHM STRIP - SCAN 2019-10-25 10:51:54 Provider, Default [facility] POCT-GLUCOSE METER 2019-10-25 10:04:00 Ritika Clarke [facility] ECG 12-LEAD 2019-10-25 08:26:24 Unknown, Hl7 [facility] APTT 2019-10-25 05:01:00 VenkataResnick [facility] BASIC METABOLIC PANEL (7) 2019-10-25 04:55:00 [facility] (HEMOGRAM ONLY) 2019-10-25 04:55:00 [facility] ECG 12-LEAD 2019-10-25 04:48:13 [facility]ataRes[facility] APTT 2019-10-25 00:19:00 VenkataResnick [facility] POCT-GLUCOSE METER 2019-10-24 23:35:00 Ritika Clarke [facility] POCT-GLUCOSE METER 2019-10-24 18:52:00 Ritika Clarke [facility] APTT 2019-10-24 17:30:00 Ven[facility]ataResnick [facility] VEIN MAPPING LEGS 2019-10-24 16:30:00 Pepe Corea [facility] CAROTID DOPPLER BILATERAL 2019-10-24 16:20:00 Pepe Corea [facility] APTT 2019-10-24 12:36:00 [facility]ataRes[facility] POCT-GLUCOSE METER 2019-10-24 10:51:00 Ritika Clarke [facility] HEPATITIS B SURFACE 2019-10-24 05:41:00 Stacy [facility] CBC (HEMOGRAM ONLY) 2019-10-24 05:41:00 [facility] BASIC METABOLIC PANEL (7) 2019-10-24 05:41:00 [facility] APTT 2019-10-24 05:41:00 Venkata, [facility] ECG 12-LEAD 2019-10-24 05:33:36 Venkata [facility] POCT-GLUCOSE METER 2019-10-23 21:37:00 Vince [facility] POCT-GLUCOSE METER 2019-10-23 19:15:00 Vince [facility] REPORT OF PROCEDURE - 2019-10-23 16:02:49 Huy Morales [facility] ENDOSCOPY SCAN Scanning [facility] POCT-ACT 2019-10-23 15:48:00 Vince [facility] POCT-ACT 2019-10-23 15:27:00 Vince [facility] L CATH & PCI 2019-10-23 13:52:00 Agustin Rios [facility] POCT-GLUCOSE METER 2019-10-23 11:53:00 Vince [facility] ECG 12-LEAD 2019-10-23 07:57:52 Kade [facility] POCT-GLUCOSE METER 2019-10-23 07:30:00 Vince [facility] APTT 2019-10-23 05:48:00 Vince [facility] CBC (HEMOGRAM ONLY) 2019-10-23 05:48:00 Angélica [facility] TROPONIN I 2019-10-23 05:48:00 Kade [facility] ECG 12-LEAD 2019-10-23 00:08:24 Unknown, Hl7 [facility] TROPONIN I 2019-10-23 00:06:00 Vince [facility] PLATELET COUNT 2019-10-22 22:36:00 Angélica [facility] APTT 2019-10-22 22:36:00 Angélica [facility] ECG 12-LEAD 2019-10-22 22:00:35 Unknown, Hl7 [facility] POCT-GLUCOSE METER 2019-10-22 20:14:00 Ritika Clarke [facility] TROPONIN I 2019-10-22 20:11:00 Vince Ritika [facility] BASIC METABOLIC PANEL (7) 2019-10-22 12:30:00 Abi Lobo Tiana dany [facility] MAGNESIUM 2019-10-22 12:30:00 Lashell [facility] B-TYPE NATRIURETIC FACTOR 2019-10-22 12:30:00 Abi Lobo Tiana [facility] (BNP) [facility] TROPONIN I 2019-10-22 12:30:00 Abi Lobo [facility] LIPASE 2019-10-22 12:30:00 Lashell [facility] HEPATIC FUNCTION PANEL 2019-10-22 12:30:00 Lashell [facility] CBC W/PLT COUNT & AUTO 2019-10-22 12:30:00 [facility] 2019-10-22 12:11:00 Abi Lobo [facility] PORTABLE/BEDSIDE Medical [place] ED ECG INTERPRETATION 2019-10-22 11:34:38 Bernardino Doss [facility] ECG 12-LEAD 2019-10-22 10:59:57 Unknown, Hl7 [facility] Plan of Care Planned Activity Planned Date Details Comments Source Future Scheduled 2020-05-05 INFLUENZA VACCINE (#1) [facility]:00 [code = INFLUENZA Medical Ce nter VACCINE (#1)] Future Scheduled 2019-10-28 Hemoglobin A1c [facility]00 [facility] (procedure) [code = 68516764] Future Scheduled 2017-08-05 MEDICARE ANNUAL [facility] - Test 00:00:00 WELLNESS (YEAR 2 or Medical Center FIRST YEAR if no IPPE) [code = MEDICARE ANNUAL WELLNESS (YEAR 2 or FIRST YEAR if no IPPE)] Future Scheduled 2016 PNEUMOCOCCAL 65+ YRS [facility] 00:00:00 (1 of 1 - Medical Center [id number] PCV13) [code = PNEUMOCOCCAL 65+ YRS (1 of 1 - [id number] PCV13)] Future Scheduled 1961 DIABETIC EYE EXAM [facility] - Test 00:00:00 [code = DIABETIC EYE Medical Center EXAM] Future Scheduled [address] [facility] 00[facility]00 examination [facility] Center (regime/therapy) [code = 956021974] Future Scheduled 1961 Urine screening for [facility] - Test 00:00:00 protein (procedure) [facility] Center [code = 780545965] Future Scheduled [address] [facility] - Test 00:00:00 malignant neoplasm of [facility] colon (procedure) [code = 361030655] Encounters Start End Encounter Admission Attending Care Care Encounter Source Date/Time Date/Time Type Type Clinicians Facility Department ID 2020-06-23 2020-06-23 Office TONI Rios [id number] 13:42:26 16:51:35 Visit Mahboob AMBULATOR [id number] Y 0.2.7.2.686 [id number] 2020-01-30 2020-01-30 Office TONI Rios [id number] 10:49:04 15:06:03 Visit Mahboob AMBULATOR 350.1.13.21 Y 0.2.7.2.686 [id number] 2019-09-17 2019-09-17 Office TONI Rios [id number] 10:55:39 11:56:54 Visit Mahboob AMBULATOR 350.1.13.21 Y 0.2.7.2.686 [id number] 2019-04-09 2019-04-09 Office TONI Rios [id number] 10:59:27 12:19:11 Visit Mahboob AMBULATOR 350.1.13.21 Y 0.2.7.2.686 [id number] Results Test Description Test Time Test Comments Results Result Comments Source AFB culture + smear (non-sputum) 2019-12-09 13:35:00 Test Item Value Reference Range Interpretation Comme nts Result (test code = 6463-4) No acid-fast bacilli isolated in 42 day s AFB Smear (test code = 94514-4) No acid fast bacilli seen [facility] (NON-SPUTUM)2019-12-09 13:35:00 Test Item Value Reference Range Interpretation Comments CULTURE (BEAKER) (test No acid-fast bacilli code = 1095) isolated in 42 days AFB SMEAR (BEAKER) No acid fast bacilli (test code = 994) seen Fungus culture + [id number] 16:48:00 Test Item Value Reference Range Interpretation Comments Result (test code = No fungus isolated in 6463-4) 28 days Fungus Smear (test No fungi seen code = 1406) [facility] + [id number] 16:48:00 Test Item Value Reference Range Interpretation Comments CULTURE (BEAKER) (test No fungus isolated in code = 1095) 28 days FUNGUS SMEAR (BEAKER) No fungi seen (test code = 1406) Prepare Leuko-Red [id number] 23:54:00 Test Item Value Reference Range Interpretation Comments CROSSMATCH (test code = 2264) COMPATIBLE Unit ABO (test code = A Pos 8799712) UNIT NUMBER (test code = [id number] 934-0) Status (test code = 2353718) [place]_TIMEINCHART Blood Bank Product (test code RED BLOOD CELLS = 2263) PRODUCT CODE (test code = [id number] 933-2) [facility]IS [id number] 18:10:00Verónica Newby RN 11/06/2019 7:00 PMProcedure tolerated well. Vital signs stable.HD duration 3.5 hours UF 3 L via left upper arm AV Fistula. Lab Results Component Value Date WBC 6.2 11/06/2019HGB 7.8 (L) 11/06/2019 HCT 24.9 (L) 11/06/2019 MCV 97.6 (H) 11/06/2019 PLT 248 11/06/2019 Lab Results Component Value Date GLUCOSE 137 (H) 11/06/2019 CALCIUM 9.4 11/06/2019 NA 141 11/06/2019 K 4.5 11/06/2019 CO2 30 (H) 11/06/2019 CL 105 11/06/2019 BUN 28 (H) 11/06/2019 CREATININE 5.35 (H) 11/06/2019 No components found for: HEPSAG Vitals: 11/06/19 1745 BP: Pulse: 73 Resp: 17 Temp: SpO2: 94%[facility], 1 VIEW, NON [id number] 11:53:00Reason for exam:- >S/p CT surgeryShould this be performed at the bedside?->YesFINAL REPORT RAD, CHEST, 1 VIEW, NON DEPT INDICATION: S/p CT surgery COMPARISON: Prior day's exam FINDINGS: Portable frontal view of the chest. IMPRESSION: Support Lines: Stable. Lungs and pleura: Unchanged airspace and pleural opacities. No pneumothorax.Heart and mediastinum: Stable contours. Stable surgical changes.Additional findings: None. Signed: Dasia Britt Verified Date/Time: 11/06/2019 11:53:03 Reading Location: [facility] Radiology Reading Room XR chest 1 view portable / [id number] 11:53:00 Interface, External Ris In - 11/06/2019 11:55 AM CSTFINAL REPORT RAD, CHEST, 1 VIEW, NON DEPT INDICATION: S/p CT surgery COMPARISON: Prior day's exam FINDINGS: Portable frontal view of the chest. IMPRESSION: Support Lines: Stable. Lungs and pleura: Unchanged airspace and pleural opacities. No pneumothorax.Heart and mediastinum: Stable contours. Stable surgical changes.Additional findings: None. Signed: Dasia Britt Verified Date/Time: 11/06/2019 11:53:03 Reading Location: [facility] Rad[facility] Reading [facility] [id number] 11:31:00 Test Item Value Reference Range Interpretation Comments POC-Glucose Meter (test 149 mg/dL 70-110 H : TE STED AT [facility] code = 1538) [address] [place], [address]: It Solutions Architect/Techni nuha ID = [id number] for Rudolph [place] on Lab Interpretation (test Abnormal code = 32672-0) [facility] HospitalPOCT[facility]GLUCOSE [id number] 11:31:00 Test Item Value Reference Range Interpretation Comments POC-GLUCOSE METER 149 mg/dL 70-110 H : TESTED A T [facility] 6720 (BEAKER) (test code = [facility]PHON[facility] Caicedo [facility], 1538) [address]: It Solutions Architect/Techni nuha ID = [id number] for Alfredo Aguila CBC with platelet count + automated [id number] 10:58:00 Test Item Value Reference Range Interpretation Comments WBC (test code = 6690-2) 6.2 3.5- 10.5 K/L RBC (test code = 789-8) 2.55 4.63- 6.08 M/L L MCHC (test code = 786-4) 31.3 32.3- 36.5 GM/DL L Hematocrit (test code = 4544-3) 24.9 % 40.1-51 L MCV (test code = 787-2) 97.6 fL 79-92.2 H MCH (test code = 785-6) 30.6 pg 25.7-32.2 RDW (test code = 788-0) 16.6 % 11.6-14.4 H Platelets (test code = 777-3) 248 150- 450 K/CU MM MPV (test code = 01158-0) 11.0 fL 9.4-12.4 nRBC (test code = 413) 0 0- 0 /100 WBC Lab Interpretation (test code = Abnormal 25681-8) [facility] HospitalManual [id number] 10:58:00 Test Item Value Reference Range Interpretation Comments % Neutros (test code 70 % = 2816) % Lymphs (test code = 21 % 2817) % Monos (test code = 6 % 2818) % Metamyelo (test 2 % 0-0 H code = 2821) % Atypical Lymphs 1 % 0-0 H (test code = 2829) # Neutros (test code 4.34 K/ul 1.78-5.38 = 2830) # Lymphs (test code = 1.30 K/ul 1.32-3.57 L 2831) # Monos (test code = 0.37 K/uL 0.3-0.82 2832) # Metamyelo (test 0.12 K/uL 0-0 H code = 2836) # Atypical Lymphs 0.06 K/uL 0-0 H (test code = 2858) Total Counted (test 100 code = 1351) WBC Morphology (test Normal code = 487) Platelet Morphology Normal (test code = 486) Anisocytosis (test 1+ few code = 961) Macrocytes (test code 1+ few = 964) Poikilocytes (test 1+ few code = 966) Artifact (test code = Present 3432) Platelet Conc (test Adequate code = 3438) LIS (test code = LIS) It Solutions Architect ID - [email or web address] comments: Slide comments: Lab Interpretation Abnormal (test code = 06341-2) [facility] W/PLT COUNT & AUTO [id number] 10:58:00 Test Item Value Reference Range Interpretation Comments WHITE BLOOD CELL COUNT (BEAKER) 6.2 K/ L 3.5-10.5 (test code = 775) RED BLOOD CELL COUNT (BEAKER) 2.55 M/ L 4.63-6.08 L (test code = 761) HEMOGLOBIN (BEAKER) (test code = 7.8 GM/DL 13.7-17.5 L 410) HEMATOCRIT (BEAKER) (test code = 24.9 % 40.1-51.0 L 411) MEAN CORPUSCULAR VOLUME (BEAKER) 97.6 fL 79.0-92.2 H (test code = 753) MEAN CORPUSCULAR HEMOGLOBIN 30.6 pg 25.7-32.2 (BEAKER) (test code = 751) MEAN CORPUSCULAR HEMOGLOBIN CONC 31.3 GM/DL 32.3-36.5 L (BEAKER) (test code = 752) RED CELL DISTRIBUTION WIDTH 16.6 % 11.6-14.4 H (BEAKER) (test code = 412) PLATELET COUNT (BEAKER) (test 248 K/CU MM 150-450 code = 756) MEAN PLATELET VOLUME (BEAKER) 11.0 fL 9.4-12.4 (test code = 754) NUCLEATED RED BLOOD CELLS 0 /100 WBC 0-0 (BEAKER) (test code = 413) (CELLAVISION MANUAL DIFF)2019-11-06 10:58:00 Test Item Value Reference Range Interpretation Comments NEUTROPHILS - REL 70 % (CELLAVISION)(BEAKER) (test code = 2816) LYMPHOCYTES - REL 21 % (CELLAVISION)(BEAKER) (test code = 2817) MONOCYTES - REL 6 % (CELLAVISION)(BEAKER) (test code = 2818) METAMYELOCYTES - REL 2 % 0-0 H (CELLAVISION)(BEAKER) (test code = 2821) ATYPICAL LYMPHOCYTES - REL 1 % 0-0 H (CELLAVISION)(BEAKER) (test code = 2829) NEUTROPHILS - ABS 4.34 K/ul 1.78-5.38 (CELLAVISION)(BEAKER) (test code = 2830) LYMPHOCYTES - ABS 1.30 K/ul 1.32-3.57 L (CELLAVISION)(BEAKER) (test code = 2831) MONOCYTES - ABS 0.37 K/uL 0.30-0.82 (CELLAVISION)(BEAKER) (test code = 2832) METAMYELOCYTES - ABS 0.12 K/uL 0.00-0.00 H (CELLAVISION)(BEAKER) (test code = 2836) ATYPICAL LYMPHOCYTES - ABS 0.06 K/uL 0.00-0.00 H (CELLAVISION)(BEAKER) (test code = 2858) TOTAL COUNTED (BEAKER) (test code = 100 1351) WBC MORPHOLOGY (BEAKER) (test code Normal = 487) PLT MORPHOLOGY (BEAKER) (test code Normal = 486) ANISOCYTOSIS (BEAKER) (test code = 1+ few 961) MACROCYTES (BEAKER) (test code = 1+ few 964) POIKILOCYTES (BEAKER) (test code = 1+ few 966) ARTIFACT (CELLAVISION)(BEAKER) Present (test code = 3432) PLATELET CONCENTRATION Adequate (CELLAVISION)(BEAKER) (test code = 3438) It Solutions Architect ID - chimereucheyaUser comments: Slide comments:ECG 12 [id number] 06:31:47Interface, External Ris In - 11/06/2019 6:31 AM CSTVentricular Rate 72 BPMAtrial Rate 72 BPMP-R Interval 272 msQRS Duration 154 msQ-T Interval 450 msQTC Calculation(Bazett) 492 msP [place] 14 degreesR [place] -65 degreesT [place] 97 degreesSinus rhythm with 1st degree A-V blockRight bundle branch blockLeft ant erior fascicular block Bifascicular block Possible Lateral infarct (cited on or before 27-OCT-2019)Abnormal ECGWhen compared with ECG of 28-OCT-2019 06:41,Previous ECG has undetermined rhythm, needs review(RBBB and left anterior fascicular block) has replaced RSR' pattern in M0Wctwxcvwwize change in initial forces of Anterolateral leadsConfirmed by MD EUGENIO, FANI Harrison ([id number]) on 11/06/2019 6:31:42 [facility] Metabolic [id number] 05:32:00 Test Item Value Reference Range Interpretation Comments Sodium (test code = 141 meq/L 863-484 0515-2) Potassium (test code = 4.5 meq/L 3.5-5.1 2823-3) Chloride (test code = 105 meq/L 98-107 2075-0) CO2 (test code = 30 meq/L 22-29 H 2028-9) BUN (test code = 28 mg/dL 7-21 H 3094-0) Creatinine (test code 5.35 mg/dL 0.57-1.25 H = 2160-0) Glucose (test code = 137 mg/dL 70-105 H 2345-7) Calcium (test code = 9.4 mg/dL 8.4-10.2 78684-6) EGFR (test code = 11 mL/min/1.73 [place] [address]-8) NOT ACCURATE CREATININE CLEARANCE IN PREDICTING GLOMERULAR FILTRATION RATE . ESTIMATED GFR I S NOT APPLICABLE FOR DIALYSIS PATIENTS. LIS (test code = LIS) It Solutions Architect ID - OZZY Aquino Lab Interpretation Abnormal (test code = 56728-9) [facility] METABOLIC [id number] 05:32:00 Test Item Value Reference Range Interpretation Comments SODIUM (BEAKER) 141 meq/L 136-145 (test code = 381) POTASSIUM (BEAKER) 4.5 meq/L 3.5-5.1 (test code = 379) CHLORIDE (BEAKER) 105 meq/L 98-107 (test code = 382) CO2 (BEAKER) (test 30 meq/L 22-29 H code = 355) BLOOD UREA NITROGEN 28 mg/dL 7-21 H (BEAKER) (test code = 354) CREATININE (BEAKER) 5.35 mg/dL 0.57-1.25 H (test code = 358) GLUCOSE RANDOM 137 mg/dL 70-105 H (BEAKER) (test code = 652) CALCIUM (BEAKER) 9.4 mg/dL 8.4-10.2 (test code = 697) EGFR (BEAKER) (test 11 mL/min/1.73 ESTIMA ERUM GFR IS code = 1092) sq m NOT ACCURATE CREATININE CLEARANCE IN PREDICTING GLOMERULAR FILTRATION RATE . ESTIMATED GFR I S NOT APPLICABLE FOR DIALYSIS PATIEN TS. It Solutions Architect ID Tac[place] PRECIADO [id number] 05:30:00 Test Item Value Reference Range Interpretation Comments Magnesium (test code = 2.2 mg/dL 1.6-2.6 61477-6) LIS (test code = LIS) It Solutions Architect JOHN PRECIADO W Lab Interpretation (test Normal code = 19834-4) [facility] Test Item Value Reference Range Interpretation Comments Phosphorus (test code = 3.3 mg/dL 2.3-4.7 2777-1) LIS (test code = LIS) It Solutions Architect JOHN PRECIADO W Lab Interpretation (test Normal code = 66155-0) [facility] 05:30:00 Test Item Value Reference Range Interpretation Comments PHOSPHORUS (BEAKER) (test code = 3.3 mg/dL 2.3-4.7 604) It Solutions Architect JOHN [id number] 05:30:00 Test Item Value Reference Range Interpretation Comments MAGNESIUM (BEAKER) (test code = 2.2 mg/dL 1.6-2.6 627) It Solutions Architect JOHN PRECIADO WPOCT-GLUCOSE [id number] 22:07:00 Test Item Value Reference Range Interpretation Comments POC-GLUCOSE METER 142 mg/dL 70-110 H : TESTED A T [facility] 6720 (BEAKER) (test code = ALPHONSO [place]icedo [place], 1538) [address]: It Solutions Architect/Techni nuha ID = [id number] for GO NZALES III, SHAYLA Type and screen, [id number] 18:51:00 Test Item Value Reference Range Interpretation Comments ABO/RH AUTOMATED (BEAKER) (test A POSITIVE code = 2260) Ab Scrn (test code = 890-4) NEGATIVE [facility] [id number] 17:33:00 Test Item Value Reference Range Interpretation Comments Troponin I (test code = 0.42 ng/mL 0-0.03 76482-9) LIS (test code = LIS) Troponin I (TnI) levels must be interpreted [...] failure, acidosis, acute neurological disease, and persistent tachyarrhythmia.Opera tor ID - BS Lab Interpretation (test Abnormal code = 34632-3) [facility] [id number] 17:33:00 Test Item Value Reference Range Interpretation Comments TROPONIN I (BEAKER) (test code = 0.42 ng/mL 0.00-0.03 HH 397) Troponin I (TnI) levels must be interpreted [...] failure, acidosis, acute neurological disease, and persistent tachyarrhythmia.It Solutions Architect ID - BSPOCT-GLUCOSE METER 2019-11-05 15:21:00 Test Item Value Reference Range Interpretation Comments POC-GLUCOSE METER 126 mg/dL 70-110 H : TESTED A T [facility] 6720 (BEAKER) (test code = ALPHONSO Caicedo [place], 1538) [address]: It Solutions Architect/Techni nuha ID = [id number] for WINDY NO POCT-GLUCOSE [id number] 12:15:00 Test Item Value Reference Range Interpretation Comments POC-GLUCOSE METER 226 mg/dL 70-110 H : TESTED A T [facility] 6720 (BEAKER) (test code = [facility], 1538) [address]: It Solutions Architect/Techni nuha ID = [id number] for CHARANJIT MORGAN BASIC METABOLIC [id number] 08:09:00 Test Item Value Reference Range Interpretation Comments SODIUM (BEAKER) 138 meq/L 136-145 (test code = 381) POTASSIUM (BEAKER) 4.8 meq/L 3.5-5.1 (test code = 379) CHLORIDE (BEAKER) 101 meq/L 98-107 (test code = 382) CO2 (BEAKER) (test 28 meq/L 22-29 code = 355) BLOOD UREA NITROGEN 47 mg/dL 7-21 H (BEAKER) (test code = 354) CREATININE (BEAKER) 6.88 mg/dL 0.57-1.25 H (test code = 358) GLUCOSE RANDOM 135 mg/dL 70-105 H (BEAKER) (test code = 652) CALCIUM (BEAKER) 9.5 mg/dL 8.4-10.2 (test code = 697) EGFR (BEAKER) (test 8 mL/min/1.73 ESTIMAT ED GFR IS code = 1092) sq m NOT ACCURATE CREATININE CLEARANCE IN PREDICTING GLOMERULAR FILTRATION RATE . ESTIMATED GFR I S NOT APPLICABLE FOR DIALYSIS PATIEN TS. It Solutions Architect ID - NIMESH CPOCT-GLUCOSE [id number] 08:07:00 Test Item Value Reference Range Interpretation Comments POC-GLUCOSE METER 170 mg/dL 70-110 H : TESTED A T [facility] 6720 (BEAKER) (test code = [facility], 1538) 127[address]: It Solutions Architect/Techni nuha ID = [id number] for CHARANJIT MORGAN [id number] 07:56:00 Test Item Value Reference Range Interpretation Comments PHOSPHORUS (BEAKER) (test code = 4.2 mg/dL 2.3-4.7 604) It Solutions Architect ID - NIMESH [id number] 07:56:00 Test Item Value Reference Range Interpretation Comments MAGNESIUM (BEAKER) (test code = 2.4 mg/dL 1.6-2.6 627) It Solutions Architect ID - NIMESH CCBC W/PLT COUNT & AUTO [id number] 05:48:00 Test Item Value Reference Range Interpretation Comments WHITE BLOOD CELL COUNT (BEAKER) 6.6 K/ L 3.5-10.5 (test code = 775) RED BLOOD CELL COUNT (BEAKER) 2.51 M/ L 4.63-6.08 L (test code = 761) HEMOGLOBIN (BEAKER) (test code = 7.6 GM/DL 13.7-17.5 L 410) HEMATOCRIT (BEAKER) (test code = 24.6 % 40.1-51.0 L 411) MEAN CORPUSCULAR VOLUME (BEAKER) 98.0 fL 79.0-92.2 H (test code = 753) MEAN CORPUSCULAR HEMOGLOBIN 30.3 pg 25.7-32.2 (BEAKER) (test code = 751) MEAN CORPUSCULAR HEMOGLOBIN CONC 30.9 GM/DL 32.3-36.5 L (BEAKER) (test code = 752) RED CELL DISTRIBUTION WIDTH 15.5 % 11.6-14.4 H (BEAKER) (test code = 412) PLATELET COUNT (BEAKER) (test 265 K/CU MM 150-450 code = 756) MEAN PLATELET VOLUME (BEAKER) 10.9 fL 9.4-12.4 (test code = 754) NUCLEATED RED BLOOD CELLS 0 /100 WBC 0-0 (BEAKER) (test code = 413) NEUTROPHILS RELATIVE PERCENT 62 % (BEAKER) (test code = 429) LYMPHOCYTES RELATIVE PERCENT 20 % (BEAKER) (test code = 430) MONOCYTES RELATIVE PERCENT 10 % (BEAKER) (test code = 431) EOSINOPHILS RELATIVE PERCENT 2 % (BEAKER) (test code = 432) BASOPHILS RELATIVE PERCENT 1 % (BEAKER) (test code = 437) NEUTROPHILS ABSOLUTE COUNT 4.09 K/ L 1.78-5.38 (BEAKER) (test code = 670) LYMPHOCYTES ABSOLUTE COUNT 1.33 K/ L 1.32-3.57 (BEAKER) (test code = 414) MONOCYTES ABSOLUTE COUNT (BEAKER) 0.69 K/ L 0.30-0.82 (test code = 415) EOSINOPHILS ABSOLUTE COUNT 0.14 K/ L 0.04-0.54 (BEAKER) (test code = 416) BASOPHILS ABSOLUTE COUNT (BEAKER) 0.04 K/ L 0.01-0.08 (test code = 417) IMMATURE GRANULOCYTES-RELATIVE 5 % 0-1 H PERCENT (BEAKER) (test code = 2801) RAD, CHEST, 1 VIEW, NON [id number] 05:37:00Reason for exam:->Vapotherm, bipapShould this be performed [...] and left axillary vascular stent. Signed: Ladarius Sanchez MDReport Verified Date/Time: 11/05/2019 05:37:42 POCT-GLUCOSE [id number] 21:21:00 Test Item Value Reference Range Interpretation Comments POC-GLUCOSE METER 175 mg/dL 70-110 H : TESTED A T [facility] 6720 (BEAKER) (test code = [facility] Caicedo [facility], 1538) [address]: It Solutions Architect/Techni nuha ID = [id number] for Otilia Eaton POCT-GLUCOSE [id number] 18:00:00 Test Item Value Reference Range Interpretation Comments POC-GLUCOSE METER 170 mg/dL 70-110 H : TESTED A T [facility] 6720 (BEAKER) (test code = [facility], 1538) [address]: It Solutions Architect/Techni nuha ID = [id number] for Alfredo Aguila Anaerobic [id number] 17:27:00 Test Item Value Reference Range Interpretation Comments Result (test code = No anaerobes isolated 6463-4) [facility] [id number] 17:27:00 Test Item Value Reference Range Interpretation Comments CULTURE (BEAKER) (test No anaerobes isolated code = 1095) POCT-GLUCOSE [id number] 11:46:00 Test Item Value Reference Range Interpretation Comments POC-GLUCOSE METER 183 mg/dL 70-110 H : TESTED A T [facility] 6720 (BEAKER) (test code = [place]PHONSO P[place], 1538) [address]: It Solutions Architect/Techni nuha ID = [id number] for Alfredo Aguila CBC W/PLT COUNT & AUTO [id number] 08:59:00 Test Item Value Reference Range Interpretation Comments WHITE BLOOD CELL COUNT (BEAKER) 5.4 K/ L 3.5-10.5 (test code = 775) RED BLOOD CELL COUNT (BEAKER) 2.44 M/ L 4.63-6.08 L (test code = 761) HEMOGLOBIN (BEAKER) (test code = 7.6 GM/DL 13.7-17.5 L 410) HEMATOCRIT (BEAKER) (test code = 23.9 % 40.1-51.0 L 411) MEAN CORPUSCULAR VOLUME (BEAKER) 98.0 fL 79.0-92.2 H (test code = 753) MEAN CORPUSCULAR HEMOGLOBIN 31.1 pg 25.7-32.2 (BEAKER) (test code = 751) MEAN CORPUSCULAR HEMOGLOBIN CONC 31.8 GM/DL 32.3-36.5 L (BEAKER) (test code = 752) RED CELL DISTRIBUTION WIDTH 15.7 % 11.6-14.4 H (BEAKER) (test code = 412) PLATELET COUNT (BEAKER) (test 232 K/CU MM 150-450 code = 756) MEAN PLATELET VOLUME (BEAKER) 10.6 fL 9.4-12.4 (test code = 754) NUCLEATED RED BLOOD CELLS 0 /100 WBC 0-0 (BEAKER) (test code = 413) (CELLAVISION MANUAL DIFF)2019-11-04 08:59:00 Test Item Value Reference Range Interpretation Comments NEUTROPHILS - REL 58 % (CELLAVISION)(BEAKER) (test code = 2816) LYMPHOCYTES - REL 28 % (CELLAVISION)(BEAKER) (test code = 2817) MONOCYTES - REL 2 % (CELLAVISION)(BEAKER) (test code = 2818) EOSINOPHILS - REL 4 % (CELLAVISION)(BEAKER) (test code = 2819) BASOPHILS - REL 2 % (CELLAVISION)(BEAKER) (test code = 2820) METAMYELOCYTES - REL 1 % 0-0 H (CELLAVISION)(BEAKER) (test code = 2821) MYELOCYTES - REL 2 % 0-0 H (CELLAVISION)(BEAKER) (test code = 2822) BANDS - REL (CELLAVISION)(BEAKER) 3 % 0-10 (test code = 2826) NEUTROPHILS - ABS 3.13 K/ul 1.78-5.38 (CELLAVISION)(BEAKER) (test code = 2830) LYMPHOCYTES - ABS 1.51 K/ul 1.32-3.57 (CELLAVISION)(BEAKER) (test code = 2831) MONOCYTES - ABS 0.11 K/uL 0.30-0.82 L (CELLAVISION)(BEAKER) (test code = 2832) EOSINOPHILS - ABS 0.22 K/uL 0.04-0.54 (CELLAVISION)(BEAKER) (test code = 2834) BASOPHILS - ABS 0.11 K/uL 0.01-0.08 H (CELLAVISION)(BEAKER) (test code = 2835) METAMYELOCYTES - ABS 0.05 K/uL 0.00-0.00 H (CELLAVISION)(BEAKER) (test code = 2836) MYELOCYTES-ABS 0.11 K/uL 0.00-0.00 H (CELLAVISION)(BEAKER) (test code = 2837) BANDS - ABS (CELLAVISION)(BEAKER) 0.16 K/uL 0.00-0.80 (test code = 2840) TOTAL COUNTED (BEAKER) (test code 100 = 1351) WBC MORPHOLOGY (BEAKER) (test Normal code = 487) PLT MORPHOLOGY (BEAKER) (test Normal code = 486) POLYCHROMATOPHILLIC RBCS(BEAKER) 1+ few (test code = 478) ANISOCYTOSIS (BEAKER) (test code 2+ moderate = 961) MICROCYTES (BEAKER) (test code = 2+ moderate 965) ARTIFACT (CELLAVISION)(BEAKER) Present (test code = 3432) PLATELET CONCENTRATION Adequate (CELLAVISION)(BEAKER) (test code = 3438) It Solutions Architect ID - Meghna OverholtUser comments: Slide comments:CBC W/PLT COUNT & AUTO [id number] 08:25:00 Test Item Value Reference Range Interpretation Comments WHITE BLOOD CELL COUNT (BEAKER) 5.5 K/ L 3.5-10.5 (test code = 775) RED BLOOD CELL COUNT (BEAKER) 2.44 M/ L 4.63-6.08 L (test code = 761) HEMOGLOBIN (BEAKER) (test code = 7.5 GM/DL 13.7-17.5 L 410) HEMATOCRIT (BEAKER) (test code = 23.8 % 40.1-51.0 L 411) MEAN CORPUSCULAR VOLUME (BEAKER) 97.5 fL 79.0-92.2 H (test code = 753) MEAN CORPUSCULAR HEMOGLOBIN 30.7 pg 25.7-32.2 (BEAKER) (test code = 751) MEAN CORPUSCULAR HEMOGLOBIN CONC 31.5 GM/DL 32.3-36.5 L (BEAKER) (test code = 752) RED CELL DISTRIBUTION WIDTH 15.7 % 11.6-14.4 H (BEAKER) (test code = 412) PLATELET COUNT (BEAKER) (test 226 K/CU MM 150-450 code = 756) MEAN PLATELET VOLUME (BEAKER) 10.6 fL 9.4-12.4 (test code = 754) NUCLEATED RED BLOOD CELLS 0 /100 WBC 0-0 (BEAKER) (test code = 413) (CELLAVISION MANUAL DIFF)2019-11-04 08:25:00 Test Item Value Reference Range Interpretation Comments NEUTROPHILS - REL 46 % (CELLAVISION)(BEAKER) (test code = 2816) LYMPHOCYTES - REL 34 % (CELLAVISION)(BEAKER) (test code = 2817) MONOCYTES - REL 8 % (CELLAVISION)(BEAKER) (test code = 2818) EOSINOPHILS - REL 6 % (CELLAVISION)(BEAKER) (test code = 2819) BASOPHILS - REL 2 % (CELLAVISION)(BEAKER) (test code = 2820) MYELOCYTES - REL 3 % 0-0 H (CELLAVISION)(BEAKER) (test code = 2822) BANDS - REL (CELLAVISION)(BEAKER) 1 % 0-10 (test code = 2826) NEUTROPHILS - ABS 2.53 K/ul 1.78-5.38 (CELLAVISION)(BEAKER) (test code = 2830) LYMPHOCYTES - ABS 1.87 K/ul 1.32-3.57 (CELLAVISION)(BEAKER) (test code = 2831) MONOCYTES - ABS 0.44 K/uL 0.30-0.82 (CELLAVISION)(BEAKER) (test code = 2832) EOSINOPHILS - ABS 0.33 K/uL 0.04-0.54 (CELLAVISION)(BEAKER) (test code = 2834) BASOPHILS - ABS 0.11 K/uL 0.01-0.08 H (CELLAVISION)(BEAKER) (test code = 2835) MYELOCYTES-ABS 0.17 K/uL 0.00-0.00 H (CELLAVISION)(BEAKER) (test code = 2837) BANDS - ABS (CELLAVISION)(BEAKER) 0.06 K/uL 0.00-0.80 (test code = 2840) TOTAL COUNTED (BEAKER) (test code 100 = 1351) WBC MORPHOLOGY (BEAKER) (test Normal code = 487) LARGE PLT(BEAKER) (test code = Present 2156) POLYCHROMATOPHILLIC RBCS(BEAKER) 1+ few (test code = 478) ANISOCYTOSIS (BEAKER) (test code 2+ moderate = 961) MICROCYTES (BEAKER) (test code = 2+ moderate 965) POIKILOCYTES (BEAKER) (test code 1+ few = 966) SCHISTOCYTES (BEAKER) (test code 1+ few = 765) ELLIPTOCYTES (BEAKER) (test code 1+ few = 962) OVALOCYTES (BEAKER) (test code = 1+ few 477) BASOPHILIC STIPPLING (BEAKER) Present (test code = 473) PLATELET CONCENTRATION Adequate (CELLAVISION)(BEAKER) (test code = 3438) It Solutions Architect JOHN Eastman comments: Slide comments:POCT-GLUCOSE [id number] 08:02:00 Test Item Value Reference Range Interpretation Comments POC-GLUCOSE METER 108 mg/dL 70-110 : [facility] ([facility]ER[facility] (test code = [place], 1538) [address]: It Solutions Architect/Techni nuha ID = [id number] for SAMIRA SUAREZ BASIC METABOLIC [id number] 07:44:00 Test Item Value Reference Range Interpretation Comments SODIUM (BEAKER) 138 meq/L 136-145 (test code = 381) POTASSIUM (BEAKER) 4.3 meq/L 3.5-5.1 (test code = 379) CHLORIDE (BEAKER) 102 meq/L 98-107 (test code = 382) CO2 (BEAKER) (test 28 meq/L 22-29 code = 355) BLOOD UREA NITROGEN 56 mg/dL 7-21 H (BEAKER) (test code = 354) CREATININE (BEAKER) 7.05 mg/dL 0.57-1.25 H (test code = 358) GLUCOSE RANDOM 118 mg/dL 70-105 H (BEAKER) (test code = 652) CALCIUM (BEAKER) 9.1 mg/dL 8.4-10.2 (test code = 697) EGFR (BEAKER) (test 8 mL/min/1.73 ESTIMAT ED GFR IS code = 1092) sq m NOT ACCURATE CREATININE CLEARANCE IN PREDICTING GLOMERULAR FILTRATION RATE . ESTIMATED GFR I S NOT APPLICABLE FOR DIALYSIS PATIEN TS. It Solutions Architect ID - GERRY MBASIC METABOLIC [id number] 07:44:00 Test Item Value Reference Range Interpretation Comments SODIUM (BEAKER) 137 meq/L 136-145 (test code = 381) POTASSIUM (BEAKER) 4.3 meq/L 3.5-5.1 (test code = 379) CHLORIDE (BEAKER) 101 meq/L 98-107 (test code = 382) CO2 (BEAKER) (test 28 meq/L 22-29 code = 355) BLOOD UREA NITROGEN 55 mg/dL 7-21 H (BEAKER) (test code = 354) CREATININE (BEAKER) 7.01 mg/dL 0.57-1.25 H (test code = 358) GLUCOSE RANDOM 118 mg/dL 70-105 H (BEAKER) (test code = 652) CALCIUM (BEAKER) 9.1 mg/dL 8.4-10.2 (test code = 697) EGFR ([facility]) (test 8 mL/min/1.73 ESTIMAT ED GFR IS code = 1092) sq m NOT ACCURATE CREATININE CLEARANCE IN PREDICTING GLOMERULAR FILTRATION RATE . ESTIMATED GFR I S NOT APPLICABLE FOR DIALYSIS PATIEN TS. It Solutions Architect ID - GERRY [id number] 07:42:00 Test Item Value Reference Range Interpretation Comments MAGNESIUM ([facility]) (test code = 2.5 mg/dL 1.6-2.6 627) It Solutions Architect ID - GERRY MPOCT-GLUCOSE [id number] 21:32:00 Test Item Value Reference Range Interpretation Comments POC-GLUCOSE METER 196 mg/dL 70-110 H : TESTED A T [facility] 6720 ([facility]) (test code = [facility], 1538) [address]: It Solutions Architect/Techni nuha ID = [id number] for DA BELKYS, NAIMA POCT-GLUCOSE [id number] 16:57:00 Test Item Value Reference Range Interpretation Comments POC-GLUCOSE METER 138 mg/dL 70-110 H : TESTED A T [facility] 6720 ([place]) (test code = [facility], 1538) [address]: It Solutions Architect/Techni nuha ID = [id number] for HI LL, SHAI POCT-GLUCOSE [id number] 12:53:00 Test Item Value Reference Range Interpretation Comments POC-GLUCOSE METER 229 mg/dL 70-110 H : [facility] A T [facility] 6720 [facility] (test code = [facility], 1538) 91120: It Solutions Architect/Techni nuha ID = [id number] for [place] LDIVNIC, LENNOX POCT-GLUCOSE [id number] 07:48:00 Test Item Value Reference Range Interpretation Comments POC-GLUCOSE METER 128 mg/dL 70-110 H : TESTED A T [facility] 6720 ([facility] (test code = [facility], 1538) [address]: It Solutions Architect/Techni nuha ID = [id number] for [facility] [place] CBC W/PLT COUNT & AUTO [id number] 07:38:00 Test Item Value Reference Range Interpretation Comments WHITE BLOOD CELL COUNT ([facility]) 5.7 K/ L 3.5-10.5 (test code = 775) RED BLOOD CELL COUNT (BEAKER) 2.73 M/ L 4.63-6.08 L (test code = 761) HEMOGLOBIN (BEAKER) (test code = 8.4 GM/DL 13.7-17.5 L 410) HEMATOCRIT (BEAKER) (test code = 26.5 % 40.1-51.0 L 411) MEAN CORPUSCULAR VOLUME (BEAKER) 97.1 fL 79.0-92.2 H (test code = 753) MEAN CORPUSCULAR HEMOGLOBIN 30.8 pg 25.7-32.2 (BEAKER) (test code = 751) MEAN CORPUSCULAR HEMOGLOBIN CONC 31.7 GM/DL 32.3-36.5 L (BEAKER) (test code = 752) RED CELL DISTRIBUTION WIDTH 15.9 % 11.6-14.4 H (BEAKER) (test code = 412) PLATELET COUNT (BEAKER) (test 224 K/CU MM 150-450 code = 756) MEAN PLATELET VOLUME (BEAKER) 11.3 fL 9.4-12.4 (test code = 754) NUCLEATED RED BLOOD CELLS 0 /100 WBC 0-0 (BEAKER) (test code = 413) (CELLAVISION MANUAL DIFF)2019-11-03 07:38:00 Test Item Value Reference Range Interpretation Comments NEUTROPHILS - REL 65 % (CELLAVISION)(BEAKER) (test code = 2816) LYMPHOCYTES - REL 16 % (CELLAVISION)(BEAKER) (test code = 2817) MONOCYTES - REL 12 % (CELLAVISION)(BEAKER) (test code = 2818) EOSINOPHILS - REL 1 % (CELLAVISION)(BEAKER) (test code = 2819) MYELOCYTES - REL 3 % 0-0 H (CELLAVISION)(BEAKER) (test code = 2822) BANDS - REL (CELLAVISION)(BEAKER) 2 % 0-10 (test code = 2826) ATYPICAL LYMPHOCYTES - REL 1 % 0-0 H (CELLAVISION)(BEAKER) (test code = 2829) NEUTROPHILS - ABS 3.71 K/ul 1.78-5.38 (CELLAVISION)(BEAKER) (test code = 2830) LYMPHOCYTES - ABS 0.91 K/ul 1.32-3.57 L (CELLAVISION)(BEAKER) (test code = 2831) MONOCYTES - ABS 0.68 K/uL 0.30-0.82 (CELLAVISION)(BEAKER) (test code = 2832) EOSINOPHILS - ABS 0.06 K/uL 0.04-0.54 (CELLAVISION)(BEAKER) (test code = 2834) MYELOCYTES-ABS 0.17 K/uL 0.00-0.00 H (CELLAVISION)(BEAKER) (test code = 2837) BANDS - ABS (CELLAVISION)(BEAKER) 0.11 K/uL 0.00-0.80 (test code = 2840) ATYPICAL LYMPHOCYTES - ABS 0.06 K/uL 0.00-0.00 H (CELLAVISION)(BEAKER) (test code = 2858) TOTAL COUNTED (BEAKER) (test code = 100 1351) RBC MORPHOLOGY (BEAKER) (test code Normal = 762) WBC MORPHOLOGY (BEAKER) (test code Normal = 487) GIANT PLATELETS (BEAKER) (test code Present = 313) ARTIFACT (CELLAVISION)(BEAKER) Present (test code = 3432) PLATELET CONCENTRATION Adequate (CELLAVISION)(BEAKER) (test code = 3438) It Solutions Architect ID - Rachael RodriguezJuve comments: Slide comments:RAD, CHEST, 1 VIEW, NON [id number] 06:47:00Reason for exam:->s/p CABGShould this be performed at the bedside?->YesFINAL REPORT RAD, CHEST, 1 VIEW, NON DEPT INDICATION: s/p CABG COMPARISON: 10hours prior. FINDINGS: Portable frontal view of the chest. IMPRESSION: Support Lines: No significant change. Lungs and pleura: Airspace and pleural opacities , greater on the left, are unchanged. Nopneumothorax.Heart and mediastinum: Stable contours. Additional findings: None. Signed: Ladarius Sanchez MDReport Verified Date/Time: 11/03/2019 06:47:42 Calcium, [id number] 06:20:00 Test Item Value Reference Range Interpretation Comments Calcium, Ion (test code = 1994-) 1.19 mmol/L 1.12-1.27 pH, Blood (test code = 74028-6) 7.34 [facility] [id number] 06:20:00 Test Item Value Reference Range Interpretation Comments CALCIUM IONIZED (BEAKER) (test 1.19 mmol/L 1.12-1.27 code = 698) PH, BLOOD (BEAKER) (test code = 7.34 1810) BASIC METABOLIC [id number] 04:59:00 Test Item Value Reference Range Interpretation Comments SODIUM (BEAKER) 139 meq/L 136-145 (test code = 381) POTASSIUM (BEAKER) 4.0 meq/L 3.5-5.1 (test code = 379) CHLORIDE (BEAKER) 102 meq/L 98-107 (test code = 382) CO2 (BEAKER) (test 27 meq/L 22-29 code = 355) BLOOD UREA NITROGEN 37 mg/dL 7-21 H (BEAKER) (test code = 354) CREATININE (BEAKER) 4.80 mg/dL 0.57-1.25 H (test code = 358) GLUCOSE RANDOM 116 mg/dL 70-105 H (BEAKER) (test code = 652) CALCIUM (BEAKER) 10.1 mg/dL 8.4-10.2 (test code = 697) EGFR (BEAKER) (test 12 mL/min/1.73 ESTIMA ERUM GFR IS code = 1092) sq m NOT ACCURATE CREATININE CLEARANCE IN PREDICTING GLOMERULAR FILTRATION RATE . ESTIMATED GFR I S NOT APPLICABLE FOR DIALYSIS PATIEN TS. It Solutions Architect ID - GERRY [id number] 04:57:00 Test Item Value Reference Range Interpretation Comments PHOSPHORUS (BEAKER) (test code = 3.1 mg/dL 2.3-4.7 604) It Solutions Architect ID - GERRY [id number] 04:57:00 Test Item Value Reference Range Interpretation Comments MAGNESIUM (BEAKER) (test code = 2.2 mg/dL 1.6-2.6 627) It Solutions Architect JOHN - GERRY MHEMODIALYSIS [id number] 04:27:37Kanika Cortez RN 11/03/2019 4:28 AMPatient is awake, alert and oriented X 4. Here to be dialyzed for 2.5 hours with UF goal of 2-2.5L. The following most updated labs are as follows: Lab Results Component Value Date HEPBSAG Nonreactive 10/24/2019 Lab Results Component Value Date GLUCOSE 195(H) 11/02/2019 CALCIUM 9.1 11/02/2019 NA 134 (L) 11/02/2019 K 4.4 11/02/2019 CO2 23 11/02/2019 CL 100 11/02/2019 BUN 62 (H) 11/02/2019 CREATININE 8.15 (H) 11/02/2019 Lab Results Component ValueDate WBC 5.4 11/02/2019 HGB 8.1 (L) 11/02/2019 HCT 25.9 (L) 11/02/2019 MCV 100.4 (H) 11/02/2019PLT 166 11/02/2019 Patient dialyzed for 2.5 hours with Net UF = 2.2 L using the left arm AV fistula access. Report given to Dasha CLAYTON. Kanika Cortez RNPioneers Memorial HospitalPOCT-GLUCOSE [id number] 22:34:00 Test Item Value Reference Range Interpretation Comments POC-GLUCOSE METER 202 mg/dL 70-110 H : TESTED A T [facility] 6720 (BEAKER) (test code = [place]PHONSO [place]ANDYA [place], 1538) [id number]: It Solutions Architect/Techni nuha ID = [id number] for ANJALI AGUILA BASIC METABOLIC [id number] 21:31:00 Test Item Value Reference Range Interpretation Comments SODIUM (BEAKER) 134 meq/L 136-145 L (test code = 381) POTASSIUM (BEAKER) 4.4 meq/L 3.5-5.1 (test code = 379) CHLORIDE (BEAKER) 100 meq/L 98-107 (test code = 382) CO2 (BEAKER) (test 23 meq/L code = 355) BLOOD UREA NITROGEN 62 mg/dL 7-21 H (BEAKER) (test code = 354) CREATININE (BEAKER) 8.15 mg/dL 0.57-1.25 H (test code = 358) GLUCOSE RANDOM 195 mg/dL 70-105 H (BEAKER) (test code = 652) CALCIUM (BEAKER) 9.1 mg/dL 8.4-10.2 (test code = 697) EGFR (BEAKER) (test 7 mL/min/1.73 ESTIMAT ED GFR IS code = 1092) sq m NOT ACCURATE CREATININE CLEARANCE IN PREDICTING GLOMERULAR FILTRATION RATE . ESTIMATED GFR I S NOT APPLICABLE FOR DIALYSIS PATIEN TS. It Solutions Architect ID - [id number] 21:30:00 Test Item Value Reference Range Interpretation Comments PHOSPHORUS (BEAKER) (test code = 4.5 mg/dL 2.3-4.7 604) It Solutions Architect ID - [id number] 21:30:00 Test Item Value Reference Range Interpretation Comments MAGNESIUM (BEAKER) (test code = 2.6 mg/dL 1.6-2.6 627) It Solutions Architect ID - CHAONBlood gas, [id number] 21:10:00 Test Item Value Reference Range Interpretation Comments pH, Arterial (test code = 2744-1) 7.35 7.35-7.45 pCO2, Arterial (test code = 50 35- 45 mmHg H 2019-04) pO2, Arterial (test code = 2703-7) 71 80- 90 mmHg L O2 Sat, Arterial (test code = 93.4 % 96-97 L 8-6) HCO3, Arterial (test code = 27 mmol/L 1959-) Base Excess, Arterial (test code = 0.8 mmol/L -2-3 1924-7) Patient Temperature (test code = 37.0 C 8310-5) FIO2 (test code = 1819) 36 % Lab Interpretation (test code = Abnormal 02201-8) [facility], [id number] 21:10:00 Test Item Value Reference Range Interpretation Comments PH ARTERIAL (BEAKER) (test code = 7.35 7.35-7.45 383) PCO2 ARTERIAL (BEAKER) (test code 50 mmHg 35-45 H = 384) PO2 ARTERIAL (BEAKER) (test code = 71 mmHg 80-90 L 385) O2 SATURATION ARTERIAL (BEAKER) 93.4 % 96.0-97.0 L (test code = 386) HCO3 ARTERIAL (BEAKER) (test code 27 mmol/L = 388) BASE EXCESS ARTERIAL (BEAKER) 0.8 mmol/L -2.0-3.0 (test code = 387) PATIENT TEMPERATURE (BEAKER) (test 37.0 C code = 1818) FIO2 (BEAKER) (test code = 1819) 36.0 % Hemoglobin and [id number] 21:03:00 Test Item Value Reference Range Interpretation Comments Hemoglobin (test code = 8.1 13.7- 17.5 GM/DL L 786-4) Hematocrit (test code = 25.9 % 40.1-51 L 4544-3) LIS (test code = LIS) It Solutions Architect ID - [id number] Lab Interpretation (test Abnormal code = 87376-3) [facility] HospitalHEMOGLOBIN AND [id number] 21:03:00 Test Item Value Reference Range Interpretation Comments HEMOGLOBIN (BEAKER) (test code = 8.1 GM/DL 13.7-17.5 L 410) HEMATOCRIT (BEAKER) (test code = 25.9 % 40.1-51.0 L 411) It Solutions Architect ID - [id number], CHEST, 1 VIEW, NON [id number] 20:50:00Reason for exam:->CoughShould this be performed at the bedside?->YesFINAL REPORT RAD, CHEST, 1 VIEW, NON DEPT INDICATION: Cough COMPARISON: 16 hours prior FINDINGS: Portable frontal view of the chest. IMPRESSION: Support Lines: No significant change. Lungs and pleura: Airspace and pleural opacities are unchanged. No pneumothorax.Heart and mediastinum: Stable contours. Additional findings: None. Signed: Ladarius Sanchez MDReport Verified Date/Time: 11/02/2019 20:50:54 POCT-GLUCOSE [id number] 17:17:00 Test Item Value Reference Range Interpretation Comments POC-GLUCOSE METER 127 mg/dL 70-110 H : TESTED A T [facility] 6720 (BEAKER) (test code = ALPHONSO KILPATRICK, 1538) [id number]: It Solutions Architect/Techni nuha ID = [id number] for MADAI Cornejo JONATHAN POCT-GLUCOSE [id number] 12:05:00 Test Item Value Reference Range Interpretation Comments POC-GLUCOSE METER 208 mg/dL 70-110 H : TESTED A T [facility] 6720 (BEAKER) (test code = ALPHONSO Caicedo [place], 1538) [address]: It Solutions Architect/Techni nuha ID = [id number] for JONATHAN RODRIGEZ POCT-GLUCOSE [id number] 07:38:00 Test Item Value Reference Range Interpretation Comments POC-GLUCOSE METER 104 mg/dL 70-110 : TESTED A T [facility] 6720 (BEAKER) (test code = ALPHONSO Caicedo [place], 1538) [address]: It Solutions Architect/Techni nuha ID = [id number] for JONATHAN RODRIGEZ RAD, CHEST, 1 VIEW, NON [id number] 06:31:00Reason for exam:->Chest congestionShould this be performed at the bedside?->YesFINAL REPORT RAD, CHEST, 1 VIEW, NON DEPT INDICATION: Chest congestion COMPARI SON: Prior day's exam FINDINGS: Portable frontal view of the chest. IMPRESSION: Support Lines: Nosignificant change. Lungs and pleura: Airspace and pleural opacities are unchanged. No pneumothorax.Heart and mediastinum: Stable contours. Additional findings: None. Signed: Ladarius Sanchez MDReport Verified Date/Time: 11/02/2019 06:31:02 BASIC METABOLIC [id number] 03:20:00 Test Item Value Reference Range Interpretation Comments SODIUM (BEAKER) 138 meq/L 136-145 (test code = 381) POTASSIUM (BEAKER) 4.4 meq/L 3.5-5.1 (test code = 379) CHLORIDE (BEAKER) 103 meq/L 98-107 (test code = 382) CO2 (BEAKER) (test 26 meq/L 22-29 code = 355) BLOOD UREA NITROGEN 50 mg/dL 7-21 H (BEAKER) (test code = 354) CREATININE (BEAKER) 6.85 mg/dL 0.57-1.25 H (test code = 358) GLUCOSE RANDOM 136 mg/dL 70-105 H (BEAKER) (test code = 652) CALCIUM (BEAKER) 9.1 mg/dL 8.4-10.2 (test code = 697) EGFR (BEAKER) (test 8 mL/min/1.73 ESTIMAT ED GFR IS code = 1092) sq m NOT ACCURATE CREATININE CLEARANCE IN PREDICTING GLOMERULAR FILTRATION RATE . ESTIMATED GFR I S NOT APPLICABLE FOR DIALYSIS PATIEN TS. It Solutions Architect ID - GERRY [id number] 03:15:00 Test Item Value Reference Range Interpretation Comments PHOSPHORUS (BEAKER) (test code = 3.9 mg/dL 2.3-4.7 604) It Solutions Architect ID - GERRY [id number] 03:15:00 Test Item Value Reference Range Interpretation Comments MAGNESIUM (BEAKER) (test code = 2.5 mg/dL 1.6-2.6 627) It Solutions Architect ID - GERRY [facility] W/PLT COUNT & AUTO [id number] 03:13:00 Test Item Value Reference Range Interpretation Comments WHITE BLOOD CELL COUNT (BEAKER) 5.4 K/ L 3.5-10.5 (test code = 775) RED BLOOD CELL COUNT (BEAKER) 2.28 M/ L 4.63-6.08 L (test code = 761) HEMOGLOBIN (BEAKER) (test code = 7.0 GM/DL 13.7-17.5 L 410) HEMATOCRIT (BEAKER) (test code = 22.9 % 40.1-51.0 L 411) MEAN CORPUSCULAR VOLUME (BEAKER) 100.4 fL 79.0-92.2 H (test code = 753) MEAN CORPUSCULAR HEMOGLOBIN 30.7 pg 25.7-32.2 (BEAKER) (test code = 751) MEAN CORPUSCULAR HEMOGLOBIN CONC 30.6 GM/DL 32.3-36.5 L (BEAKER) (test code = 752) RED CELL DISTRIBUTION WIDTH 15.4 % 11.6-14.4 H (BEAKER) (test code = 412) PLATELET COUNT (BEAKER) (test 166 K/CU MM 150-450 code = 756) MEAN PLATELET VOLUME (BEAKER) 11.3 fL 9.4-12.4 (test code = 754) NUCLEATED RED BLOOD CELLS 0 /100 WBC 0-0 (BEAKER) (test code = 413) NEUTROPHILS RELATIVE PERCENT 69 % (BEAKER) (test code = 429) LYMPHOCYTES RELATIVE PERCENT 14 % (BEAKER) (test code = 430) MONOCYTES RELATIVE PERCENT 11 % (BEAKER) (test code = 431) EOSINOPHILS RELATIVE PERCENT 3 % (BEAKER) (test code = 432) BASOPHILS RELATIVE PERCENT 1 % (BEAKER) (test code = 437) NEUTROPHILS ABSOLUTE COUNT 3.73 K/ L 1.78-5.38 (BEAKER) (test code = 670) LYMPHOCYTES ABSOLUTE COUNT 0.77 K/ L 1.32-3.57 L (BEAKER) (test code = 414) MONOCYTES ABSOLUTE COUNT (BEAKER) 0.60 K/ L 0.30-0.82 (test code = 415) EOSINOPHILS ABSOLUTE COUNT 0.16 K/ L 0.04-0.54 (BEAKER) (test code = 416) BASOPHILS ABSOLUTE COUNT (BEAKER) 0.05 K/ L 0.01-0.08 (test code = 417) IMMATURE GRANULOCYTES-RELATIVE 2 % 0-1 H PERCENT (BEAKER) (test code = 2801) CALCIUM, [id number] 02:49:00 Test Item Value Reference Range Interpretation Comments CALCIUM IONIZED (BEAKER) (test 1.16 mmol/L 1.12-1.27 code = 698) PH, BLOOD (BEAKER) (test code = 7.39 1810) POCT-GLUCOSE [id number] 23:12:00 Test Item Value Reference Range Interpretation Comments POC-GLUCOSE METER 171 mg/dL 70-110 H : TESTED A T [facility] 6720 (BEAKER) (test code = [facility], 153) [address]: It Solutions Architect/Techni nuha ID = [id number] for DO VARGASKEMARLONG ANJALI POCT-GLUCOSE [id number] 17:23:00 Test Item Value Reference Range Interpretation Comments POC-GLUCOSE METER 96 mg/dL 70-110 : TESTED A T [facility] 6720 (BEAKER) (test code = [facility], 153) [address]: It Solutions Architect/Techni nuha ID = [id number] for JONATHAN MACHADO BASIC METABOLIC [id number] 17:18:00 Test Item Value Reference Range Interpretation Comments SODIUM (BEAKER) 139 meq/L 136-145 (test code = 381) POTASSIUM (BEAKER) 4.0 meq/L 3.5-5.1 (test code = 379) CHLORIDE (BEAKER) 103 meq/L 98-107 (test code = 382) CO2 (BEAKER) (test 28 meq/L 22-29 code = 355) BLOOD UREA NITROGEN 40 mg/dL 7-21 H (BEAKER) (test code = 354) CREATININE (BEAKER) 5.46 mg/dL 0.57-1.25 H (test code = 358) GLUCOSE RANDOM 110 mg/dL 70-105 H (BEAKER) (test code = 652) CALCIUM (BEAKER) 9.5 mg/dL 8.4-10.2 (test code = 697) EGFR (BEAKER) (test 10 mL/min/1.73 ESTIMA ERUM GFR IS code = 1092) sq m NOT ACCURATE CREATININE CLEARANCE IN PREDICTING GLOMERULAR FILTRATION RATE . ESTIMATED GFR I S NOT APPLICABLE FOR DIALYSIS PATIEN TS. It Solutions Architect ID - [id number] 17:17:00 Test Item Value Reference Range Interpretation Comments PHOSPHORUS (BEAKER) (test code = 3.4 mg/dL 2.3-4.7 604) It Solutions Architect ID - [id number] 17:17:00 Test Item Value Reference Range Interpretation Comments MAGNESIUM (BEAKER) (test code = 2.4 mg/dL 1.6-2.6 627) It Solutions Architect ID - BSBASIC METABOLIC [id number] 13:42:00 Test Item Value Reference Range Interpretation Comments SODIUM (BEAKER) 139 meq/L 136-145 (test code = 381) POTASSIUM (BEAKER) 4.4 meq/L 3.5-5.1 (test code = 379) CHLORIDE (BEAKER) 103 meq/L 98-107 (test code = 382) CO2 (BEAKER) (test 28 meq/L 22-29 code = 355) BLOOD UREA NITROGEN 49 mg/dL 7-21 H (BEAKER) (test code = 354) CREATININE (BEAKER) 6.94 mg/dL 0.57-1.25 H (test code = 358) GLUCOSE RANDOM 149 mg/dL 70-105 H (BEAKER) (test code = 652) CALCIUM (BEAKER) 9.1 mg/dL 8.4-10.2 (test code = 697) EGFR (BEAKER) (test 8 mL/min/1.73 ESTIMAT ED GFR IS code = 1092) sq m NOT ACCURATE CREATININE CLEARANCE IN PREDICTING GLOMERULAR FILTRATION RATE . ESTIMATED GFR I S NOT APPLICABLE FOR DIALYSIS PATIEN TS. It Solutions Architect ID - LILY [id number] 13:40:00 Test Item Value Reference Range Interpretation Comments PHOSPHORUS (BEAKER) (test code = 3.9 mg/dL 2.3-4.7 604) It Solutions Architect ID - LILY [id number] 13:40:00 Test Item Value Reference Range Interpretation Comments MAGNESIUM (BEAKER) (test code = 2.6 mg/dL 1.6-2.6 627) It Solutions Architect ID - LILY LCALCIUM, [id number] 12:49:00 Test Item Value Reference Range Interpretation Comments CALCIUM IONIZED (BEAKER) (test 1.13 mmol/L 1.12-1.27 code = 698) PH, BLOOD (BEAKER) (test code = 7.38 1810) POCT-GLUCOSE [id number] 12:14:00 Test Item Value Reference Range Interpretation Comments POC-GLUCOSE METER 147 mg/dL 70-110 H : [facility] ([facility] (test code = ALPHONSO PAND[place], 1538) [address]: It Solutions Architect/Techni nuha ID = [id number] for JONATHAN RODRIGEZ (SHIFT THERAPY)2019-11-01 11:35:00Verónica Newby RN 11/01/2019 12:16 PMPatient's left upper arm AV Fistula, with good thrill and bruit, cannulated with 17g fistula needles without difficulty. Good blood return noted. Hooked up to NX stage machine by Isaias Almodovar RN and Shift Therapy started. Nurse Almodovar instructed to call the Dialysis Unit for any problem or assistance regarding the AV Fistula access and for fistula needles removal after treatment. Patient has shortness of breath noted but conversant and in stable condition.[facility] + gram [id number] 10:40:00 Test Item Value Reference Range Interpretation Comments Result (test code = 6463-4) No growth Gram Stain Result (test No organisms seen code = 1123) [facility]UR[facility] + GRAM [id number] 10:40:00 Test Item Value Reference Range Interpretation Comments CULTURE (BEAKER) (test No growth code = 1095) GRAM STAIN RESULT <1+ White blood cells (BEAKER) (test code = seen 1123) GRAM STAIN RESULT No organisms seen (BEAKER) (test code = 92925) POCT-GLUCOSE [id number] 07:39:00 Test Item Value Reference Range Interpretation Comments POC-GLUCOSE METER 134 mg/dL 70-110 H : TESTED A T [facility] 6720 (BEAKER) (test code = ALPHON[place] P[place], 1538) [address]: It Solutions Architect/Techni nuha ID = [id number] for JONATHAN RODRIGEZ BLOOD GAS, [id number] 05:24:00 Test Item Value Reference Range Interpretation Comments PH ARTERIAL (BEAKER) (test code = 7.37 7.35-7.45 383) PCO2 ARTERIAL (BEAKER) (test code 48 mmHg 35-45 H = 384) PO2 ARTERIAL (BEAKER) (test code = 56 mmHg 80-90 L 385) O2 SATURATION ARTERIAL (BEAKER) 87.2 % 96.0-97.0 L (test code = 386) HCO3 ARTERIAL (BEAKER) (test code 27 mmol/L 21-29 = 388) BASE EXCESS ARTERIAL (BEAKER) 1.3 mmol/L -2.0-3.0 (test code = 387) PATIENT TEMPERATURE (BEAKER) (test 37.5 C code = 1818) FIO2 (BEAKER) (test code = 1819) 40.0 % BASIC METABOLIC [id number] 05:23:00 Test Item Value Reference Range Interpretation Comments SODIUM (BEAKER) 140 meq/L 136-145 (test code = 381) POTASSIUM (BEAKER) 4.7 meq/L 3.5-5.1 (test code = 379) CHLORIDE (BEAKER) 104 meq/L 98-107 (test code = 382) CO2 (BEAKER) (test 25 meq/L 22-29 code = 355) BLOOD UREA NITROGEN 51 mg/dL 7-21 H (BEAKER) (test code = 354) CREATININE (BEAKER) 7.86 mg/dL 0.57-1.25 H (test code = 358) GLUCOSE RANDOM 124 mg/dL 70-105 H (BEAKER) (test code = 652) CALCIUM (BEAKER) 9.3 mg/dL 8.4-10.2 (test code = 697) EGFR (BEAKER) (test 7 mL/min/1.73 ESTIMAT ED GFR IS code = 1092) sq m NOT ACCURATE CREATININE CLEARANCE IN PREDICTING GLOMERULAR FILTRATION RATE . ESTIMATED GFR I S NOT APPLICABLE FOR DIALYSIS PATIEN TS. It Solutions Architect ID - LILY [id number] 05:18:00 Test Item Value Reference Range Interpretation Comments PHOSPHORUS (BEAKER) (test code = 4.8 mg/dL 2.3-4.7 H 604) It Solutions Architect ID - LILY [id number] 05:18:00 Test Item Value Reference Range Interpretation Comments MAGNESIUM (BEAKER) (test code = 2.8 mg/dL 1.6-2.6 H 627) It Solutions Architect ID - LILY LCBC (Hemogram only)2019-11-01 04:59:00 Test Item Value Reference Range Interpretation Comments WBC (test code = 6690-2) 7.0 3.5- 10.5 K/L RBC (test code = 789-8) 2.35 4.63- 6.08 M/L L MCHC (test code = 786-4) 31.1 32.3- 36.5 GM/DL L Hematocrit (test code = 4544-3) 23.8 % 40.1-51 L MCV (test code = 787-2) 101.3 fL 79-92.2 H MCH (test code = 785-6) 31.5 pg 25.7-32.2 RDW (test code = 788-0) 16.5 % 11.6-14.4 H Platelets (test code = 777-3) 138 150- 450 K/CU MM L MPV (test code = 72940-5) 12.2 fL 9.4-12.4 nRBC (test code = 413) 0 0- 0 /100 WBC Lab Interpretation (test code = Abnormal 56704-9) [facility]2019-11-01 04:59:00 Test Item Value Reference Range Interpretation Comments WHITE BLOOD CELL COUNT (BEAKER) 7.0 K/ L 3.5-10.5 (test code = 775) RED BLOOD CELL COUNT (BEAKER) 2.35 M/ L 4.63-6.08 L (test code = 761) HEMOGLOBIN (BEAKER) (test code = 7.4 GM/DL 13.7-17.5 L 410) HEMATOCRIT (BEAKER) (test code = 23.8 % 40.1-51.0 L 411) MEAN CORPUSCULAR VOLUME (BEAKER) 101.3 fL 79.0-92.2 H (test code = 753) MEAN CORPUSCULAR HEMOGLOBIN 31.5 pg 25.7-32.2 (BEAKER) (test code = 751) MEAN CORPUSCULAR HEMOGLOBIN CONC 31.1 GM/DL 32.3-36.5 L (BEAKER) (test code = 752) RED CELL DISTRIBUTION WIDTH 16.5 % 11.6-14.4 H (BEAKER) (test code = 412) PLATELET COUNT (BEAKER) (test 138 K/CU MM 150-450 L code = 756) MEAN PLATELET VOLUME (BEAKER) 12.2 fL 9.4-12.4 (test code = 754) NUCLEATED RED BLOOD CELLS 0 /100 WBC 0-0 (BEAKER) (test code = 413) RAD, CHEST, 1 VIEW, NON [id number] 04:16:00Reason for exam:->post cardiac surgeryFINAL REPORT RAD, [...] Stable surgical changes.Additional findings: None. Signed: Sigrid Vieyra [facility] Verified Date/Time: 11/01/2019 04:16:36 BASIC METABOLIC [id number] 23:53:00 Test Item Value Reference Range Interpretation Comments SODIUM (BEAKER) 140 meq/L 136-145 (test code = 381) POTASSIUM (BEAKER) 4.6 meq/L 3.5-5.1 (test code = 379) CHLORIDE (BEAKER) 104 meq/L 98-107 (test code = 382) CO2 (BEAKER) (test 25 meq/L 22-29 code = 355) BLOOD UREA NITROGEN 47 mg/dL 7-21 H (BEAKER) (test code = 354) CREATININE (BEAKER) 7.49 mg/dL 0.57-1.25 H (test code = 358) GLUCOSE RANDOM 144 mg/dL 70-105 H (BEAKER) (test code = 652) CALCIUM (BEAKER) 9.2 mg/dL 8.4-10.2 (test code = 697) EGFR (BEAKER) (test 7 mL/min/1.73 ESTIMAT ED GFR IS code = 1092) sq m NOT ACCURATE CREATININE CLEARANCE IN PREDICTING GLOMERULAR FILTRATION RATE . ESTIMATED GFR I S NOT APPLICABLE FOR DIALYSIS PATIEN TS. It Solutions Architect ID - LILY TKnnjetm-[id number] 23:26:00 Test Item Value Reference Range Interpretation Comments Glucose (test code = 144 mg/dL 70-105 H 2345-7) LIS (test code = LIS) It Solutions Architect ID [place] BAUTISTA L Lab Interpretation (test Abnormal code = 23043-8) [facility] HospitalPotassium-[id number] 23:26:00 Test Item Value Reference Range Interpretation Comments Potassium (test code = 4.6 meq/L 3.5-5.1 2823-3) LIS (test code = LIS) It Solutions Architect ID - LILY L Lab Interpretation (test Normal code = 94157-4) [facility] HospitalPOTASSIUM2020-02-27 23:26:00 Test Item Value Reference Range Interpretation Comments POTASSIUM (BEAKER) (test code = 4.6 meq/L 3.5-5.1 379) It Solutions Architect ID - LILY [id number] 23:26:00 Test Item Value Reference Range Interpretation Comments MAGNESIUM (BEAKER) (test code = 2.7 mg/dL 1.6-2.6 H 627) It Solutions Architect ID - LILY [id number] 23:26:00 Test Item Value Reference Range Interpretation Comments PHOSPHORUS (BEAKER) (test code = 4.6 mg/dL 2.3-4.7 604) It Solutions Architect ID - LILY [id number] 23:26:00 Test Item Value Reference Range Interpretation Comments GLUCOSE RANDOM (BEAKER) (test code 144 mg/dL 70-105 H = 652) It Solutions Architect ID - LILY LHEMOGLOBIN AND [id number] 23:06:00 Test Item Value Reference Range Interpretation Comments HEMOGLOBIN (BEAKER) (test code = 7.2 GM/DL 13.7-17.5 L 410) HEMATOCRIT (BEAKER) (test code = 22.9 % 40.1-51.0 L 411) It Solutions Architect ID - 6000POCT-GLUCOSE [id number] 18:25:00 Test Item Value Reference Range Interpretation Comments POC-GLUCOSE METER 143 mg/dL 70-110 H : TESTED A T [facility] 6720 (BEAKER) (test code = [facility], 1538) [address]: It Solutions Architect/Techni nuha ID = [id number] for MALACHI NASH [id number] 16:52:00 Test Item Value Reference Range Interpretation Comments POTASSIUM (BEAKER) (test code = 4.8 meq/L 3.5-5.1 379) It Solutions Architect ID - ELEAZAR EPOCT-GLUCOSE [id number] 12:46:00 Test Item Value Reference Range Interpretation Comments POC-GLUCOSE METER 142 mg/dL 70-110 H : TESTED A T [facility] 6720 (BEAKER) (test code = [facility], 1538) [address]: It Solutions Architect/Techni nuha ID = [id number] for MALACHI NASH [id number] 10:51:00 Test Item Value Reference Range Interpretation Comments POTASSIUM (BEAKER) (test code = 4.7 meq/L 3.5-5.1 379) [employer] Solutions Architect ID - SALONI [id number] 10:51:00 Test Item Value Reference Range Interpretation Comments PHOSPHORUS (BEAKER) (test code = 4.8 mg/dL 2.3-4.7 H 604) [employer] Architect ID - SALONI [id number] 10:51:00 Test Item Value Reference Range Interpretation Comments MAGNESIUM (BEAKER) (test code = 2.6 mg/dL 1.6-2.6 627) [employer] Architect ID - SALONI FPOCT-GLUCOSE [id number] 09:54:00 Test Item Value Reference Range Interpretation Comments POC-GLUCOSE METER 164 mg/dL 70-110 H : TESTED A T [facility] 6720 (BEAKER) (test code = [facility], 1538) [address]: It Solutions Architect/Techni nuha ID = [id number] for NIMESH SANCHEZ POCT-GLUCOSE [id number] 09:27:00 Test Item Value Reference Range Interpretation Comments POC-GLUCOSE METER 163 mg/dL 70-110 H : TESTED A T [facility] 6720 (BEAKER) (test code = [facility], 1538) 56562: It Solutions Architect/Techni nuha ID = [id number] for DAVID BENNETT RAD, CHEST, 1 VIEW, NON [id number] 07:53:00Reason for exam:->post cardiac surgeryFINAL REPORT RAD, CHEST, 1 VIEW, NON DEPT INDICATION: post cardiac surgery COMPARISON: Prior day's exam FINDINGS: Portable frontal view of the chest. IMPRESSION: Limited by underpenetration.Support Lines: Stable. Lungs and pleura: Unchanged interstitial and pleural opacities. N o pneumothorax.Heart and mediastinum: Stable contours. Stable surgical changes.Additional findings: None. Signed: JR Gracia Robert MDReport Verified Date/Time: 10/31/2019 07:53:55 Reading Location: [facility] Radiology Reading Room BASIC METABOLIC [id number] 04:29:00 Test Item Value Reference Range Interpretation Comments SODIUM (BEAKER) 139 meq/L 136-145 (test code = 381) POTASSIUM (BEAKER) 4.8 meq/L 3.5-5.1 (test code = 379) CHLORIDE (BEAKER) 104 meq/L 98-107 (test code = 382) CO2 (BEAKER) (test 24 meq/L 22-29 code = 355) BLOOD UREA NITROGEN 31 mg/dL 7-21 H (BEAKER) (test code = 354) CREATININE (BEAKER) 6.07 mg/dL 0.57-1.25 H (test code = 358) GLUCOSE RANDOM 177 mg/dL 70-105 H (BEAKER) (test code = 652) CALCIUM (BEAKER) 9.4 mg/dL 8.4-10.2 (test code = 697) EGFR (BEAKER) (test 9 mL/min/1.73 ESTIMAT ED GFR IS code = 1092) sq m NOT ACCURATE CREATININE CLEARANCE IN PREDICTING GLOMERULAR FILTRATION RATE . ESTIMATED GFR I S NOT APPLICABLE FOR DIALYSIS PATIEN TS. It Solutions Architect ID - LILY [id number] 04:26:00 Test Item Value Reference Range Interpretation Comments PHOSPHORUS (BEAKER) (test code = 5.0 mg/dL 2.3-4.7 H 604) It Solutions Architect ID - LILY [id number] 04:26:00 Test Item Value Reference Range Interpretation Comments MAGNESIUM (BEAKER) (test code = 2.5 mg/dL 1.6-2.6 627) It Solutions Architect ID - LILY [id number] 04:01:00 Test Item Value Reference Range Interpretation Comments Protime (test code = 16.0 11.9- 14.2 H 5902-2) seconds INR (test code = 1.3 <=5.9 6301-6) PTT (test code = 55.3 22.5- 36.0 H 22375-8) seconds LIS (test code = LIS) Effective 01/30/2019: PT Reference Range ChangeNew: 11.9-14.2 Previous: 11.7-14.7 RECOMMENDED COUMADIN/WARFARIN INR THERAPY RANGESSTANDARD DOSE: 2.0-3.0 Includes: PROPHYLAXIS for venous thrombosis, systemic embolization; TREATMENT for venous thrombosis and/or pulmonary embolus.HIGH RISK: Target INR is 2.5-3.5 for patients wiht mechanical heart valves. Lab Interpretation Abnormal (test code = 40007-2) [id number] 04:01:00 Test Item Value Reference Range Interpretation Comments PROTIME (BEAKER) (test code = 16.0 seconds 11.9-14.2 H 759) INR (BEAKER) (test code = 370) 1.3 <=5.9 PARTIAL THROMBOPLASTIN TIME 55.3 seconds 22.5-36.0 H (BEAKER) (test code = 760) Effective 01/30/2019: PT Reference Range ChangeNew: 11.9-14.2 Previous: 11.7- 14.7RECOMMENDED COUMADIN/WARFARIN INR THERAPY RANGESSTANDARD DOSE: 2.0-3.0 Includes: PROPHYLAXIS for venous thrombosis, systemic embolization; TREATMENT for venous thrombosis and/or pulmonary embolus.HIGH RISK: Target INR is2.5-3.5 for patients wiht mechanical heart valves.Prothrombin time/[id number] 04:00:00 Test Item Value Reference Range Interpretation Comments Protime (test code = 16.0 11.9- 14.2 H 5902-2) seconds INR (test code = 1.3 <=5.9 6301-6) LIS (test code = LIS) Effective 01/30/2019: PT Reference Range ChangeNew: 11.9-14.2 Previous: 11.7-14.7 RECOMMENDED COUMADIN/WARFARIN INR THERAPY RANGESSTANDARD DOSE: 2.0-3.0 Includes: PROPHYLAXIS for venous thrombosis, systemic embolization; TREATMENT for venous thrombosis and/or pulmonary embolus.HIGH RISK: Target INR is 2.5-3.5 for patients wiht mechanical heart valves. Lab Interpretation Abnormal (test code = 87638-4) [facility] HospitalPROTHROMBIN TIME/[id number] 04:00:00 Test Item Value Reference Range Interpretation Comments PROTIME (BEAKER) (test code = 16.0 seconds 11.9-14.2 H 759) INR (BEAKER) (test code = 370) 1.3 <=5.9 Effective 01/30/2019: PT Reference Range ChangeNew: 11.9-14.2 Previous: 11.7- 14.7RECOMMENDED COUMADIN/WARFARIN INR THERAPY RANGESSTANDARD DOSE: 2.0-3.0 Includes: PROPHYLAXIS for venous thrombosis, systemic embolization; TREATMENT for venous thrombosis and/or pulmonary embolus.HIGH RISK: Target INR is2.5-3.5 for patients wiht mechanical heart valves.CBC (HEMOGRAM ONLY)2019-10-31 03:59:00 Test Item Value Reference Range Interpretation Comments WHITE BLOOD CELL COUNT (BEAKER) 6.5 K/ L 3.5-10.5 (test code = 775) RED BLOOD CELL COUNT (BEAKER) 2.32 M/ L 4.63-6.08 L (test code = 761) HEMOGLOBIN (BEAKER) (test code = 7.4 GM/DL 13.7-17.5 L 410) HEMATOCRIT (BEAKER) (test code = 23.1 % 40.1-51.0 L 411) MEAN CORPUSCULAR VOLUME (BEAKER) 99.6 fL 79.0-92.2 H (test code = 753) MEAN CORPUSCULAR HEMOGLOBIN 31.9 pg 25.7-32.2 (BEAKER) (test code = 751) MEAN CORPUSCULAR HEMOGLOBIN CONC 32.0 GM/DL 32.3-36.5 L (BEAKER) (test code = 752) RED CELL DISTRIBUTION WIDTH 16.8 % 11.6-14.4 H (BEAKER) (test code = 412) PLATELET COUNT (BEAKER) (test code 96 K/CU MM 150-450 L = 756) MEAN PLATELET VOLUME (BEAKER) 12.0 fL 9.4-12.4 (test code = 754) NUCLEATED RED BLOOD CELLS (BEAKER) 0 /100 WBC 0-0 (test code = 413) BLOOD GAS, [id number] 03:46:00 Test Item Value Reference Range Interpretation Comments PH ARTERIAL (BEAKER) (test code = 7.41 7.35-7.45 383) PCO2 ARTERIAL (BEAKER) (test code 44 mmHg 35-45 = 384) PO2 ARTERIAL (BEAKER) (test code = 66 mmHg 80-90 L 385) O2 SATURATION ARTERIAL (BEAKER) 92.8 % 96.0-97.0 L (test code = 386) HCO3 ARTERIAL (BEAKER) (test code 27 mmol/L 21-29 = 388) BASE EXCESS ARTERIAL (BEAKER) 2.3 mmol/L -2.0-3.0 (test code = 387) PATIENT TEMPERATURE (BEAKER) (test 37.3 C code = 1818) FIO2 (BEAKER) (test code = 1819) 40.0 % [id number] 01:25:00 Test Item Value Reference Range Interpretation Comments POTASSIUM (BEAKER) (test code = 4.7 meq/L 3.5-5.1 379) It Solutions Architect ID - PIAYA [id number] 20:33:00 Test Item Value Reference Range Interpretation Comments POTASSIUM (BEAKER) (test code = 4.7 meq/L 3.5-5.1 379) It Solutions Architect ID - [id number] 20:33:00 Test Item Value Reference Range Interpretation Comments MAGNESIUM (BEAKER) (test code = 2.4 mg/dL 1.6-2.6 627) It Solutions Architect ID - [id number] 20:33:00 Test Item Value Reference Range Interpretation Comments PHOSPHORUS (BEAKER) (test code = 4.5 mg/dL 2.3-4.7 604) It Solutions Architect ID - BSHEMODIALYSIS [id number] 18:33:00ChuJorje RN 10/30/2019 6:33 PMHD x 4 hrs. UF net 3L. Treatment tolerated well. Lab Res ults Component Value Date WBC 6.7 10/30/2019 HGB 7.8 (L) 10/30/2019 HCT 24.6 (L) 10/30/2019 MCV 97.6 (H) 10/30/2019 PLT 106 (L) 10/30/2019 Lab Results Component Value Date GLUCOSE 157 (H) 10/30/2019 CALCIUM 9.4 10/30/2019 NA 142 10/30/2019 K 5.2 (H) 10/30/2019 CO2 24 10/30/2019 CL 108 (H)10/30/2019 BUN 31 (H) 10/30/2019 CREATININE 6.91 (H) 10/30/2019 Lab Results Component Value Date HEPBSAG Nonreactive 10/24/2019 Vitals: 10/30/19 1815 BP: Pulse: 76 Resp: 15 Temp: SpO2: 100%[facility] HospitalPOCT[facility] 2019-10-30 13:55:00 Test Item Value Reference Range Interpretation Comments POC-GLUCOSE METER 149 mg/dL 70-110 H : TESTED A T [facility] 6720 (BEAKER) (test code = [place], 1538) [address]: It Solutions Architect/Techni nuha ID = [id number] for NIMESH SANCHEZ BLOOD GAS, [id number] 11:08:00 Test Item Value Reference Range Interpretation Comments PH ARTERIAL (BEAKER) (test code = 7.34 7.35-7.45 L 383) PCO2 ARTERIAL (BEAKER) (test code 47 mmHg 35-45 H = 384) PO2 ARTERIAL (BEAKER) (test code 101 mmHg 80-90 H = 385) O2 SATURATION ARTERIAL (BEAKER) 96.9 % 96.0-97.0 (test code = 386) HCO3 ARTERIAL (BEAKER) (test code 25 mmol/L 21-29 = 388) BASE EXCESS ARTERIAL (BEAKER) -1.1 mmol/L -2.0-3.0 (test code = 387) PATIENT TEMPERATURE (BEAKER) 38.1 C (test code = 1818) FIO2 (BEAKER) (test code = 1819) 40.0 % [id number] 10:23:00 Test Item Value Reference Range Interpretation Comments PHOSPHORUS (BEAKER) (test code = 4.9 mg/dL 2.3-4.7 H 604) It Solutions Architect ID - [id number] 10:23:00 Test Item Value Reference Range Interpretation Comments MAGNESIUM (BEAKER) (test code = 2.7 mg/dL 1.6-2.6 H 627) It Solutions Architect ID - [id number] 10:23:00 Test Item Value Reference Range Interpretation Comments POTASSIUM (BEAKER) (test code = 5.2 meq/L 3.5-5.1 H 379) It Solutions Architect ID - DBPOCT-GLUCOSE [id number] 10:07:00 Test Item Value Reference Range Interpretation Comments POC-GLUCOSE METER 118 mg/dL 70-110 H : [facility] (BE[facility]ER[facility] (test code = ALPHONSO Caicedo [place], 1538) [address]: It Solutions Architect/Techni nuha ID = [id number] for NIMESH SANCHEZ RAD, CHEST, 1 VIEW, NON [id number] 06:52:00Reason for exam:->post cardiac surgeryFINAL REPORT RAD, [...] Hand MDReport Verified Date/Time: 10/30/2019 06:52:57 POCT-GLUCOSE [id number] 06:39:00 Test Item Value Reference Range Interpretation Comments POC-GLUCOSE METER 146 mg/dL 70-110 H : Notified RN/: (BEAKER) (test code = TESTED AT [facility] 6720 1538) [facility], [address]: It Solutions Architect/Techni nuha ID = [id number] for CECILIA CRISOSTOMO BASIC METABOLIC [id number] 05:20:00 Test Item Value Reference Range Interpretation Comments SODIUM (BEAKER) 142 meq/L 136-145 (test code = 381) POTASSIUM (BEAKER) 5.3 meq/L 3.5-5.1 H Specimen slightly (test code = 379) hemolyzed CHLORIDE (BEAKER) 108 meq/L 98-107 H (test code = 382) CO2 (BEAKER) (test 24 meq/L 22-29 code = 355) BLOOD UREA NITROGEN 31 mg/dL 7-21 H (BEAKER) (test code = 354) CREATININE (BEAKER) 6.91 mg/dL 0.57-1.25 H Specimen slightly (test code = 358) hemolyzed GLUCOSE RANDOM 157 mg/dL 70-105 H (BEAKER) (test code = 652) CALCIUM (BEAKER) 9.4 mg/dL 8.4-10.2 (test code = 697) EGFR (BEAKER) (test 8 mL/min/1.73 ESTIMAT ED GFR IS code = 1092) sq m NOT ACCURATE CREATININE CLEARANCE IN PREDICTING GLOMERULAR FILTRATION RATE . ESTIMATED GFR I S NOT APPLICABLE FOR DIALYSIS PATIEN TS. It Solutions Architect ID - GERRY [id number] 05:08:00 Test Item Value Reference Range Interpretation Comments MAGNESIUM (BEAKER) 2.6 mg/dL 1.6-2.6 Specimen slightly (test code = 627) hemolyzed It Solutions Architect ID - GERRY [id number] 05:08:00 Test Item Value Reference Range Interpretation Comments PHOSPHORUS (BEAKER) 5.0 mg/dL 2.3-4.7 H Specimen slightly (test code = 604) hemolyzed It Solutions Architect ID - GERRY MCBC (HEMOGRAM ONLY)2019-10-30 05:00:00 Test Item Value Reference Range Interpretation Comments WHITE BLOOD CELL COUNT (BEAKER) 6.7 K/ L 3.5-10.5 (test code = 775) RED BLOOD CELL COUNT (BEAKER) 2.52 M/ L 4.63-6.08 L (test code = 761) HEMOGLOBIN (BEAKER) (test code = 7.8 GM/DL 13.7-17.5 L 410) HEMATOCRIT (BEAKER) (test code = 24.6 % 40.1-51.0 L 411) MEAN CORPUSCULAR VOLUME (BEAKER) 97.6 fL 79.0-92.2 H (test code = 753) MEAN CORPUSCULAR HEMOGLOBIN 31.0 pg 25.7-32.2 (BEAKER) (test code = 751) MEAN CORPUSCULAR HEMOGLOBIN CONC 31.7 GM/DL 32.3-36.5 L (BEAKER) (test code = 752) RED CELL DISTRIBUTION WIDTH 17.4 % 11.6-14.4 H (BEAKER) (test code = 412) PLATELET COUNT (BEAKER) (test 106 K/CU MM 150-450 L code = 756) MEAN PLATELET VOLUME (BEAKER) 12.3 fL 9.4-12.4 (test code = 754) NUCLEATED RED BLOOD CELLS 0 /100 WBC 0-0 (BEAKER) (test code = 413) BLOOD GAS, [id number] 04:50:00 Test Item Value Reference Range Interpretation Comments PH ARTERIAL (BEAKER) (test code = 7.33 7.35-7.45 L 383) PCO2 ARTERIAL (BEAKER) (test code 48 mmHg 35-45 H = 384) PO2 ARTERIAL (BEAKER) (test code 202 mmHg 80-90 H = 385) O2 SATURATION ARTERIAL (BEAKER) 99.3 % 96.0-97.0 H (test code = 386) HCO3 ARTERIAL (BEAKER) (test code 24 mmol/L 21-29 = 388) BASE EXCESS ARTERIAL (BEAKER) -1.3 mmol/L -2.0-3.0 (test code = 387) PATIENT TEMPERATURE (BEAKER) 38.3 C (test code = 1818) FIO2 (BEAKER) (test code = 1819) 60.0 % POCT-GLUCOSE [id number] 03:25:00 Test Item Value Reference Range Interpretation Comments POC-GLUCOSE METER 136 mg/dL 70-110 H : Notified RN/MD: (EMMA) (test code = TESTED AT [facility] 6720 1538) [facility], [address]: It Solutions Architect/Techni nuha ID = [id number] for CECILIA CRISOSTOMO [id number] 01:23:00 Test Item Value Reference Range Interpretation Comments POTASSIUM ([facility]) (test code = 5.2 meq/L 3.5-5.1 H 379) It Solutions Architect ID - GERRY MPOCT-GLUCOSE [id number] 01:15:00 Test Item Value Reference Range Interpretation Comments POC-GLUCOSE METER 149 mg/dL 70-110 H : [facility] (test code = [facility], 1538) [address]: It Solutions Architect/Techni nuha ID = [id number] for CHARLOTTE MUHAMMAD POCT-GLUCOSE [id number] 00:01:00 Test Item Value Reference Range Interpretation Comments POC-GLUCOSE METER 143 mg/dL 70-110 H : [facility] ([facility]) (test code = [facility], 1538) [address]: It Solutions Architect/Techni nuha ID = [id number] for CHARLOTTE MUHAMMAD Prepare [id number] 23:54:00 Test Item Value Reference Range Interpretation Comments CROSSMATCH (test code = 2264) COMPATIBLE Unit ABO (test code = A Pos 8465456) UNIT NUMBER (test code = [id number] 934-0) Status (test code = 9268902) TX_TIMEINCHART Blood Bank Product (test code RED BLOOD CELLS = 2263) PRODUCT CODE (test code = J2916J79 933-2) [facility] Hospital[facility] [id number] 23:54:00 Test Item Value Reference Range Interpretation Comments Unit ABO (test code = 5370164) A Neg UNIT NUMBER (test code = [id number] 934-0) Status (test code = 6142229) TX_TIMEINCHART Blood Bank Product (test code PLATELETS = 2263) PRODUCT CODE (test code = G5024Z32 933-2) [facility] HospitalPO[facility]UCOSE [id number] 21:28:00 Test Item Value Reference Range Interpretation Comments POC-GLUCOSE METER 157 mg/dL 70-110 H : Notified RN/MD: (BEAKER) (test code = TESTED AT [facility] 6720 1538) [facility], [address]: It Solutions Architect/Techni nuha ID = [id number] for CECILIA CRISOSTOMO POCT-GLUCOSE [id number] 21:21:00 Test Item Value Reference Range Interpretation Comments POC-GLUCOSE METER 178 mg/dL 70-110 H : TESTED A T [facility] 6720 (BEAKER) (test code = [facility] Caiced[facility], 1538) [address]: It Solutions Architect/Techni nuha ID = [id number] for AUDRA EVA GREERGURMEET Lactic Acid, [id number] 20:04:00 Test Item Value Reference Range Interpretation Comments Lactate, Art (test code = 2.2 mmol/L 0.5-2.2 2874) LIS (test code = LIS) It Solutions Architect ID - DB Lab Interpretation (test Normal code = 19323-3) [facility] HospitalBLOOD GAS, [id number] 20:04:00 Test Item Value Reference Range Interpretation Comments PH ARTERIAL (BEAKER) (test code = 7.35 7.35-7.45 383) PCO2 ARTERIAL (BEAKER) (test code 47 mmHg 35-45 H = 384) PO2 ARTERIAL (BEAKER) (test code 177 mmHg 80-90 H = 385) O2 SATURATION ARTERIAL (BEAKER) 99.1 % 96.0-97.0 H (test code = 386) HCO3 ARTERIAL (BEAKER) (test code 25 mmol/L 21-29 = 388) BASE EXCESS ARTERIAL (BEAKER) -0.4 mmol/L -2.0-3.0 (test code = 387) PATIENT TEMPERATURE (BEAKER) 38.1 C (test code = 1818) FIO2 (BEAKER) (test code = 1819) 60.0 % LACTIC ACID, [id number] 20:04:00 Test Item Value Reference Range Interpretation Comments LACTATE BLOOD ARTERIAL (2) 2.2 mmol/L 0.5-2.2 (BEAKER) (test code = 2874) It Solutions Architect ID - DBHGB/HCT (H&H)-Stat [id number] 19:58:00 Test Item Value Reference Range Interpretation Comments Hemoglobin (test code = 786-4) 9.1 g/dL 13-16.8 L Hematocrit (test code = 4544-3) 27.0 % 40-50 L Lab Interpretation (test code = Abnormal 02355-0) [facility] HospitalGlucose-Stat [id number] 19:58:00 Test Item Value Reference Range Interpretation Comments Glucose (test code = 2345-7) 168 mg/dL 70-110 H Lab Interpretation (test code = Abnormal 52889-7) [facility] HospitalCALCIUM, [id number] 19:58:00 Test Item Value Reference Range Interpretation Comments CALCIUM IONIZED (BEAKER) (test 1.19 mmol/L 1.12-1.27 code = 698) PH, BLOOD (BEAKER) (test code = 7.37 1810) GLUCOSE-STAT [id number] 19:58:00 Test Item Value Reference Range Interpretation Comments GLUCOSE RANDOM (BEAKER) (test code 168 mg/dL 70-110 H = 652) HGB/HCT (H&H) - STAT [id number] 19:58:00 Test Item Value Reference Range Interpretation Comments HEMOGLOBIN (BEAKER) (test code = 9.1 g/dL 13.0-16.8 L 410) HEMATOCRIT (BEAKER) (test code = 27.0 % 40.0-50.0 L 411) Sodium Na-Stat [id number] 19:57:00 Test Item Value Reference Range Interpretation Comments Sodium (test code = 2951-2) 139 meq/L 135-148 Lab Interpretation (test code = Normal 60303-8) [facility] HospitalPotassium-Stat [id number] 19:57:00 Test Item Value Reference Range Interpretation Comments Potassium (test code = 2823-3) 5.2 meq/L 3.6-5.5 Lab Interpretation (test code = Normal 89017-6) [facility] [id number] 19:57:00 Test Item Value Reference Range Interpretation Comments SODIUM (BEAKER) (test code = 381) 139 meq/L 135-148 POTASSIUM-STAT [id number] 19:57:00 Test Item Value Reference Range Interpretation Comments POTASSIUM (BEAKER) (test code = 5.2 meq/L 3.6-5.5 379) [id number] 17:10:00 Test Item Value Reference Range Interpretation Comments POTASSIUM (BEAKER) (test code = 5.3 meq/L 3.5-5.1 H 379) It Solutions Architect ID - BSBLOOD GAS, [id number] 16:57:00 Test Item Value Reference Range Interpretation Comments PH ARTERIAL (BEAKER) (test code = 7.36 7.35-7.45 383) PCO2 ARTERIAL (BEAKER) (test code 44 mmHg 35-45 = 384) PO2 ARTERIAL (BEAKER) (test code 173 mmHg 80-90 H = 385) O2 SATURATION ARTERIAL (BEAKER) 99.1 % 96.0-97.0 H (test code = 386) HCO3 ARTERIAL (BEAKER) (test code 24 mmol/L 21-29 = 388) BASE EXCESS ARTERIAL (BEAKER) -0.8 mmol/L -2.0-3.0 (test code = 387) PATIENT TEMPERATURE (BEAKER) 38.4 C (test code = 1818) FIO2 (BEAKER) (test code = 1819) 40.0 % [id number] 12:24:00 Test Item Value Reference Range Interpretation Comments POTASSIUM (BEAKER) (test code = 4.9 meq/L 3.5-5.1 379) It Solutions Architect ID - ODETTE MBLOOD GAS, [id number] 11:53:00 Test Item Value Reference Range Interpretation Comments PH ARTERIAL (BEAKER) (test code = 7.43 7.35-7.45 383) PCO2 ARTERIAL (BEAKER) (test code 36 mmHg 35-45 = 384) PO2 ARTERIAL (BEAKER) (test code 136 mmHg 80-90 H = 385) O2 SATURATION ARTERIAL (BEAKER) 98.8 % 96.0-97.0 H (test code = 386) HCO3 ARTERIAL (BEAKER) (test code 23 mmol/L 21-29 = 388) BASE EXCESS ARTERIAL (BEAKER) -0.8 mmol/L -2.0-3.0 (test code = 387) PATIENT TEMPERATURE (BEAKER) 37.2 C (test code = 1818) FIO2 (BEAKER) (test code = 1819) 40.0 % POCT-GLUCOSE [id number] 11:45:00 Test Item Value Reference Range Interpretation Comments POC-GLUCOSE METER 181 mg/dL 70-110 H : TESTED A T [facility] 6720 (BEAKER) (test code = [facility] Caicedo [facility], 1538) [address]: It Solutions Architect/Techni nuha ID = [id number] for GURMEET QUINTANA JR [id number] 08:48:00 Test Item Value Reference Range Interpretation Comments MAGNESIUM (BEAKER) 2.4 mg/dL 1.6-2.6 Specimen slightly (test code = 627) hemolyzed It Solutions Architect ID - GERRY [id number] 08:48:00 Test Item Value Reference Range Interpretation Comments PHOSPHORUS (BEAKER) 3.4 mg/dL 2.3-4.7 Specimen slightly (test code = 604) hemolyzed It Solutions Architect ID - GERRY [id number] 08:48:00 Test Item Value Reference Range Interpretation Comments POTASSIUM (BEAKER) 4.6 meq/L 3.5-5.1 Specimen slightly (test code = 379) hemolyzed It Solutions Architect ID - GERRY MRAD, CHEST, 1 VIEW, NON [id number] 07:02:00while patient is intubated or has chest tubes.Reason for exam:->Status post CV SurgeryShould thisbe performed at the bedside?->YesFINAL REPORT RAD, CHEST, 1 VIEW, NON DEPT INDICATION: Status post CV Surgery C OMPARISON: Prior day's exam FINDINGS: Portable frontal view of the chest. IMPRESSION: Limited by underpenetration, positioning and rotationSupport Lines: Stable. Lungs and pleura: Unchanged airspace and interstitial opacities. No pneumothorax.Heart and mediastinum: Stable contours. Stable surgical ch anges.Additional findings: None. Signed: JR Gracia Robert MDReport Verified Date/Time: 10/29/2019 07:02:49 Reading Location: [facility] Radiology Reading Room POC ACTIVATED CLOTTING [id number] 06:37:00 Test Item Value Reference Range Interpretation Comments Activated Clotting Time 131 sec : 74 -137 seconds, (test code = 441) Baseline: TESTED AT [address], [facility] [place] [address]: It Solutions Architect/Techni nuha ID = [id number] for ANTHONY RIDLEY [facility] [id number] 06:37:00 Test Item Value Reference Range Interpretation Comments POC-GLUCOSE METER 150 mg/dL 70-110 H : TESTED A T [place] [address] (BEAKER) (test code = [facility] Caicedo [facility], 1538) [address]: It Solutions Architect/Techni nuha ID = [id number] for YASMIN DAVIS [id number] 06:37:00 Test Item Value Reference Range Interpretation Comments ACTIVATED CLOTTING TIME 131 sec : 74 -137 seconds, (BEAKER) (test code = Baseli ne: TESTED AT 441) [address], [facility] 30: It Solutions Architect/Techni nuha ID = [id number] for ANTHONY RIDLEY [id number] 06:36:00 Test Item Value Reference Range Interpretation Comments ACTIVATED CLOTTING TIME 499 sec : 74 -137 seconds, (BEAKER) (test code = Baseli ne: TESTED AT 441) [address], [address]: It Solutions Architect/Techni nuha ID = [id number] for ANTHONY RIDLEY [id number] 06:36:00 Test Item Value Reference Range Interpretation Comments ACTIVATED CLOTTING TIME 516 sec : 74 -137 seconds, (BEAKER) (test code = Baseli ne: TESTED AT 441) [address], [facility] 30: It Solutions Architect/Techni nuha ID = [id number] for ANTHONY RIDLEY [id number] 06:36:00 Test Item Value Reference Range Interpretation Comments ACTIVATED CLOTTING TIME 621 sec : 74 -137 seconds, (BEAKER) (test code = Baseli ne: TESTED AT 441) [address], [facility] 30: It Solutions Architect/Techni nuha ID = [id number] for RON FINK, ANTHONY [id number] 06:36:00 Test Item Value Reference Range Interpretation Comments ACTIVATED CLOTTING TIME 753 sec : 74 -137 seconds, (BEAKER) (test code = Baseli ne: TESTED AT 441) [address], [facility] 30: It Solutions Architect/Techni nuha ID = [id number] for ANTHONY RIDLEY [id number] 06:36:00 Test Item Value Reference Range Interpretation Comments ACTIVATED CLOTTING TIME 505 sec : 74 -137 seconds, (BEAKER) (test code = Baseli ne: TESTED AT 441) [facility] [address] [facility], [address]: It Solutions Architect/Techni nuha ID = [id number] for RON FINK ANTHONY [id number] 06:36:00 Test Item Value Reference Range Interpretation Comments ACTIVATED CLOTTING TIME 516 sec : 74 -137 seconds, (BEAKER) (test code = Baselyohana ne: TESTED AT 441) [facility] [address] [facility], [address]: It Solutions Architect/Techni nuha ID = [id number] for RON FINK, ANTHONY POCT-GLUCOSE [id number] 04:37:00 Test Item Value Reference Range Interpretation Comments POC-GLUCOSE METER 141 mg/dL 70-110 H : TESTED A T [facility] 6720 (BEAKER) (test code = [facility], 1538) [address]: It Solutions Architect/Techni nuha ID = [id number] for YASMIN DAVIS BASIC METABOLIC [id number] 03:19:00 Test Item Value Reference Range Interpretation Comments SODIUM (BEAKER) 141 meq/L 136-145 (test code = 381) POTASSIUM (BEAKER) 4.5 meq/L 3.5-5.1 (test code = 379) CHLORIDE (BEAKER) 109 meq/L 98-107 H (test code = 382) CO2 (BEAKER) (test 21 meq/L 22-29 L code = 355) BLOOD UREA NITROGEN 31 mg/dL 7-21 H (BEAKER) (test code = 354) CREATININE (BEAKER) 6.30 mg/dL 0.57-1.25 H (test code = 358) GLUCOSE RANDOM 156 mg/dL 70-105 H (BEAKER) (test code = 652) CALCIUM (BEAKER) 9.4 mg/dL 8.4-10.2 (test code = 697) EGFR (BEAKER) (test 9 mL/min/1.73 ESTIMAT ED GFR IS code = 1092) sq m NOT ACCURATE CREATININE CLEARANCE IN PREDICTING GLOMERULAR FILTRATION RATE . ESTIMATED GFR I S NOT APPLICABLE FOR DIALYSIS PATIEN TS. [employer] ID - GERRY MPT/[id number] 03:13:00 Test Item Value Reference Range Interpretation Comments PROTIME (BEAKER) (test code = 14.9 seconds 11.9-14.2 H 759) INR (BEAKER) (test code = 370) 1.2 <=5.9 PARTIAL THROMBOPLASTIN TIME 44.8 seconds 22.5-36.0 H (BEAKER) (test code = 760) Effective 01/30/2019: PT Reference Range ChangeNew: 11.9-14.2 Previous: 11.7- 14.7RECOMMENDED COUMADIN/WARFARIN INR THERAPY RANGESSTANDARD DOSE: 2.0-3.0 Includes: PROPHYLAXIS for venous thrombosis, systemic embolization; TREATMENT for venous thrombosis and/or pulmonary embolus.HIGH RISK: Target INR is2.5-3.5 for patients wiht mechanical heart valves.PROTHROMBIN [id number] 03:12:00 Test Item Value Reference Range Interpretation Comments PROTIME (BEAKER) (test code = 14.9 seconds 11.9-14.2 H 759) INR (BEAKER) (test code = 370) 1.2 <=5.9 Effective 01/30/2019: PT Reference Range ChangeNew: 11.9-14.2 Previous: 11.7- 14.7RECOMMENDED COUMADIN/WARFARIN INR THERAPY RANGESSTANDARD DOSE: 2.0-3.0 Includes: PROPHYLAXIS for venous thrombosis, systemic embolization; TREATMENT for venous thrombosis and/or pulmonary embolus.HIGH RISK: Target INR is2.5-3.5 for patients wiht mechanical heart valves.[id number] 03:09:00 Test Item Value Reference Range Interpretation Comments PHOSPHORUS (BEAKER) (test code = 2.4 mg/dL 2.3-4.7 604) [employer] Architect ID - GERRY [id number] 03:09:00 Test Item Value Reference Range Interpretation Comments MAGNESIUM (BEAKER) (test code = 2.8 mg/dL 1.6-2.6 H 627) [employer] Architect ID - GERRY MLACTIC ACID, [id number] 03:02:00 Test Item Value Reference Range Interpretation Comments LACTATE BLOOD ARTERIAL (2) 1.2 mmol/L 0.5-2.2 (BEAKER) (test code = 2874) It Solutions Architect ID - GERRY [facility] (HEMOGRAM ONLY)2019-10-29 02:53:00 Test Item Value Reference Range Interpretation Comments WHITE BLOOD CELL COUNT (BEAKER) 5.6 K/ L 3.5-10.5 (test code = 775) RED BLOOD CELL COUNT (BEAKER) 2.68 M/ L 4.63-6.08 L (test code = 761) HEMOGLOBIN (BEAKER) (test code = 8.4 GM/DL 13.7-17.5 L 410) HEMATOCRIT (BEAKER) (test code = 25.3 % 40.1-51.0 L 411) MEAN CORPUSCULAR VOLUME (BEAKER) 94.4 fL 79.0-92.2 H (test code = 753) MEAN CORPUSCULAR HEMOGLOBIN 31.3 pg 25.7-32.2 (BEAKER) (test code = 751) MEAN CORPUSCULAR HEMOGLOBIN CONC 33.2 GM/DL 32.3-36.5 (BEAKER) (test code = 752) RED CELL DISTRIBUTION WIDTH 16.7 % 11.6-14.4 H (BEAKER) (test code = 412) PLATELET COUNT (BEAKER) (test 118 K/CU MM 150-450 L code = 756) MEAN PLATELET VOLUME (BEAKER) 11.7 fL 9.4-12.4 (test code = 754) NUCLEATED RED BLOOD CELLS 0 /100 WBC 0-0 (BEAKER) (test code = 413) Oxygen saturation, [id number] 02:52:00 Test Item Value Reference Range Interpretation Comments O2 Saturation (Measured) (test code = 78.1 % 16460-6) [facility], [id number] 02:52:00 Test Item Value Reference Range Interpretation Comments O2 SATURATION (MEASURED) (BEAKER) 78.1 % (test code = 1455) BLOOD GAS, [id number] 02:51:00 Test Item Value Reference Range Interpretation Comments PH ARTERIAL (BEAKER) (test code = 7.48 7.35-7.45 H 383) PCO2 ARTERIAL (BEAKER) (test code 32 mmHg 35-45 L = 384) PO2 ARTERIAL (BEAKER) (test code 137 mmHg 80-90 H = 385) O2 SATURATION ARTERIAL (BEAKER) 99.0 % 96.0-97.0 H (test code = 386) HCO3 ARTERIAL (BEAKER) (test code 23 mmol/L 21-29 = 388) BASE EXCESS ARTERIAL (BEAKER) -0.5 mmol/L -2.0-3.0 (test code = 387) PATIENT TEMPERATURE (BEAKER) 35.6 C (test code = 1818) FIO2 (BEAKER) (test code = 1819) 40.0 % GLUCOSE-STAT [id number] 02:51:00 Test Item Value Reference Range Interpretation Comments GLUCOSE RANDOM (BEAKER) (test code 158 mg/dL 70-110 H = 652) CALCIUM, [id number] 02:50:00 Test Item Value Reference Range Interpretation Comments CALCIUM IONIZED (BEAKER) (test 1.20 mmol/L 1.12-1.27 code = 698) PH, BLOOD (BEAKER) (test code = 7.46 1810) POCT-GLUCOSE [id number] 00:29:00 Test Item Value Reference Range Interpretation Comments POC-GLUCOSE METER 156 mg/dL 70-110 H : TESTED A T [facility] 6720 (BEAKER) (test code = [facility], 1538) [id number]: It Solutions Architect/Techni nuha ID = [id number] for ON YASMIN OJRDAN [id number] 22:46:00 Test Item Value Reference Range Interpretation Comments POTASSIUM (BEAKER) (test code = 4.8 meq/L 3.5-5.1 379) It Solutions Architect ID - [id number] 22:46:00 Test Item Value Reference Range Interpretation Comments MAGNESIUM (BEAKER) (test code = 3.3 mg/dL 1.6-2.6 H 627) It Solutions Architect ID - [id number] 22:46:00 Test Item Value Reference Range Interpretation Comments PHOSPHORUS (BEAKER) (test code = 1.8 mg/dL 2.3-4.7 L 604) It Solutions Architect ID - BSLACTIC ACID, [id number] 22:13:00 Test Item Value Reference Range Interpretation Comments LACTATE BLOOD ARTERIAL (2) 1.2 mmol/L 0.5-2.2 (BEAKER) (test code = 2874) It Solutions Architect ID - BSPOCT-GLUCOSE [id number] 22:03:00 Test Item Value Reference Range Interpretation Comments POC-GLUCOSE METER 141 mg/dL 70-110 H : TESTED A T [facility] 6720 (BEAKER) (test code = [facility], 1538) [address]: It Solutions Architect/Techni nuha ID = [id number] for YASMIN DAVIS POCT-GLUCOSE [id number] 19:42:00 Test Item Value Reference Range Interpretation Comments POC-GLUCOSE METER 149 mg/dL 70-110 H : TESTED A T [facility] 6720 (BEAKER) (test code = [facility], 1538) [address]14[address]: It Solutions Architect/Techni nuha ID = [id number] for YA O, KOUAME POCT-GLUCOSE [id number] 18:32:00 Test Item Value Reference Range Interpretation Comments POC-GLUCOSE METER 147 mg/dL 70-110 H : TESTED A T [facility] 6720 (BEAKER) (test code = [facility], 1538) 58047: It Solutions Architect/Techni nuha ID = [id number] for YA O, KOUAME [id number] 18:08:00 Test Item Value Reference Range Interpretation Comments PHOSPHORUS (BEAKER) 3.4 mg/dL 2.3-4.7 Specimen slightly (test code = 604) hemolyzed It Solutions Architect ID - ELEAZAR AYE, CHEST, 1 VIEW, NON [id number] 17:51:00Reason for exam:->ETTShould this be performed at [...] dual-chamber. There is a right IJ route [place] catheter with the tip in the region [...] tube as described above. Signed: Darrius Pan Verified Date/Time: 10/28/2019 17:51:08 Reading Location: [facility] B1 [id number] Consult Reading Room CBC W/PLT COUNT & AUTO [id number] 17:49:00 Test Item Value Reference Range Interpretation Comments WHITE BLOOD CELL COUNT (BEAKER) 6.4 K/ L 3.5-10.5 (test code = 775) RED BLOOD CELL COUNT (BEAKER) 2.66 M/ L 4.63-6.08 L (test code = 761) HEMOGLOBIN (BEAKER) (test code = 8.5 GM/DL 13.7-17.5 L 410) HEMATOCRIT (BEAKER) (test code = 25.1 % 40.1-51.0 L 411) MEAN CORPUSCULAR VOLUME (BEAKER) 94.4 fL 79.0-92.2 H (test code = 753) MEAN CORPUSCULAR HEMOGLOBIN 32.0 pg 25.7-32.2 (BEAKER) (test code = 751) MEAN CORPUSCULAR HEMOGLOBIN CONC 33.9 GM/DL 32.3-36.5 (BEAKER) (test code = 752) RED CELL DISTRIBUTION WIDTH 15.9 % 11.6-14.4 H (BEAKER) (test code = 412) PLATELET COUNT (BEAKER) (test 125 K/CU MM 150-450 L code = 756) MEAN PLATELET VOLUME (BEAKER) 11.4 fL 9.4-12.4 (test code = 754) NUCLEATED RED BLOOD CELLS 0 /100 WBC 0-0 (BEAKER) (test code = 413) NEUTROPHILS RELATIVE PERCENT 78 % (BEAKER) (test code = 429) LYMPHOCYTES RELATIVE PERCENT 8 % (BEAKER) (test code = 430) MONOCYTES RELATIVE PERCENT 11 % (BEAKER) (test code = 431) EOSINOPHILS RELATIVE PERCENT 1 % (BEAKER) (test code = 432) BASOPHILS RELATIVE PERCENT 0 % (BEAKER) (test code = 437) NEUTROPHILS ABSOLUTE COUNT 4.97 K/ L 1.78-5.38 (BEAKER) (test code = 670) LYMPHOCYTES ABSOLUTE COUNT 0.52 K/ L 1.32-3.57 L (BEAKER) (test code = 414) MONOCYTES ABSOLUTE COUNT (BEAKER) 0.72 K/ L 0.30-0.82 (test code = 415) EOSINOPHILS ABSOLUTE COUNT 0.05 K/ L 0.04-0.54 (BEAKER) (test code = 416) BASOPHILS ABSOLUTE COUNT (BEAKER) 0.02 K/ L 0.01-0.08 (test code = 417) IMMATURE GRANULOCYTES-RELATIVE 1 % 0-1 PERCENT (BEAKER) (test code = 2801) BASIC METABOLIC [id number] 17:38:00 Test Item Value Reference Range Interpretation Comments SODIUM (BEAKER) 143 meq/L 136-145 (test code = 381) POTASSIUM (BEAKER) 5.1 meq/L 3.5-5.1 Specimen slightly (test code = 379) hemolyzed CHLORIDE (BEAKER) 107 meq/L 98-107 (test code = 382) CO2 (BEAKER) (test 24 meq/L 22-29 code = 355) BLOOD UREA NITROGEN 37 mg/dL 7-21 H (BEAKER) (test code = 354) CREATININE (BEAKER) 8.08 mg/dL 0.57-1.25 H Specimen slightly (test code = 358) hemolyzed GLUCOSE RANDOM 198 mg/dL 70-105 H (BEAKER) (test code = 652) CALCIUM (BEAKER) 9.1 mg/dL 8.4-10.2 (test code = 697) EGFR (BEAKER) (test 7 mL/min/1.73 ESTIMAT ED GFR IS code = 1092) sq m NOT ACCURATE CREATININE CLEARANCE IN PREDICTING GLOMERULAR FILTRATION RATE . ESTIMATED GFR I S NOT APPLICABLE FOR DIALYSIS PATIEN TS. It Solutions Architect ID - ELEAZAR [id number] 17:31:00 Test Item Value Reference Range Interpretation Comments Fibrinogen (test code = 3255-7) 343 mg/dl 225-434 Lab Interpretation (test code = Normal 67549-3) [id number] 17:31[facility]00 Test Item Value Reference Range Interpretation Comments PTT (test code = 46529-0) 36.5 22.5- 36.0 seconds H Lab Interpretation (test code = Abnormal 61610-2) [facility]PROT[id number] 17:31:00 Test Item Value Reference Range Interpretation Comments PROTIME (BEAKER) (test code = 15.4 seconds 11.9-14.2 H 759) INR (BEAKER) (test code = 370) 1.3 <=5.9 Effective 01/30/2019: PT Reference Range ChangeNew: 11.9-14.2 Previous: 11.7- 14.7RECOMMENDED COUMADIN/WARFARIN INR THERAPY RANGESSTANDARD DOSE: 2.0-3.0 Includes: PROPHYLAXIS for venous thrombosis, systemic embolization; TREATMENT for venous thrombosis and/or pulmonary embolus.HIGH RISK: Target INR is2.5-3.5 for patients wiht mechanical heart valves.[id number] 17:31:00 Test Item Value Reference Range Interpretation Comments FIBRINOGEN LEVEL (BEAKER) (test 343 mg/dl 225-434 code = 658) [id number] 17:31:00 Test Item Value Reference Range Interpretation Comments PARTIAL THROMBOPLASTIN TIME 36.5 seconds 22.5-36.0 H (BEAKER) (test code = 760) [id number] 17:25:00 Test Item Value Reference Range Interpretation Comments MAGNESIUM (BEAKER) 3.4 mg/dL 1.6-2.6 H Specimen slightly (test code = 627) hemolyzed It Solutions Architect ID - ELEAZAR ELACTIC ACID, [id number] 17:20:00 Test Item Value Reference Range Interpretation Comments LACTATE BLOOD 3.0 mmol/L 0.5-2.2 H Specimen sligh tly ARTERIAL (2) (BEAKER) hemoly zed (test code = 2874) It Solutions Architect ID - ELEAZAR EPlatelet [id number] 17:11:00 Test Item Value Reference Range Interpretation Comments Platelets (test code = 119 150- 450 K/CU MM L 777-3) LIS (test code = LIS) It Solutions Architect ID - [id number] Lab Interpretation (test Abnormal code = 98839-0) [facility] [id number] 17:11:00 Test Item Value Reference Range Interpretation Comments PLATELET COUNT (BEAKER) (test 119 K/CU MM 150-450 L code = 756) It Solutions Architect ID - [id number] GAS, [id number] 17:06:00 Test Item Value Reference Range Interpretation Comments PH ARTERIAL (BEAKER) (test code = 7.44 7.35-7.45 383) PCO2 ARTERIAL (BEAKER) (test code 38 mmHg 35-45 = 384) PO2 ARTERIAL (BEAKER) (test code = 85 mmHg 80-90 385) O2 SATURATION ARTERIAL (BEAKER) 97.0 % 96.0-97.0 (test code = 386) HCO3 ARTERIAL (BEAKER) (test code 25 mmol/L 21-29 = 388) BASE EXCESS ARTERIAL (BEAKER) 0.6 mmol/L -2.0-3.0 (test code = 387) PATIENT TEMPERATURE (BEAKER) (test 36.3 C code = 1818) FIO2 (BEAKER) (test code = 1819) 40.0 % SODIUM NA-STAT [id number] 17:06:00 Test Item Value Reference Range Interpretation Comments SODIUM (BEAKER) (test code = 381) 141 meq/L 135-148 POTASSIUM-STAT [id number] 17:06:00 Test Item Value Reference Range Interpretation Comments POTASSIUM (BEAKER) (test code = 5.1 meq/L 3.6-5.5 379) CALCIUM, [id number] 17:06:00 Test Item Value Reference Range Interpretation Comments CALCIUM IONIZED (BEAKER) (test 1.12 mmol/L 1.12-1.27 code = 698) PH, BLOOD (BEAKER) (test code = 7.44 1810) GLUCOSE-STAT [id number] 17:06:00 Test Item Value Reference Range Interpretation Comments GLUCOSE RANDOM (BEAKER) (test code 192 mg/dL 70-110 H = 652) HGB/HCT (H&H) - STAT [id number] 17:06:00 Test Item Value Reference Range Interpretation Comments HEMOGLOBIN (BEAKER) (test code = 8.4 g/dL 13.0-16.8 L 410) HEMATOCRIT (BEAKER) (test code = 25.0 % 40.0-50.0 L 411) OXYGEN SATURATION, [id number] 17:06:00 Test Item Value Reference Range Interpretation Comments O2 SATURATION (MEASURED) (BEAKER) 73.6 % (test code = 1455) Prepare [id number] 16:55:00 Test Item Value Reference Range Interpretation Comments Unit ABO (test code = A Pos 2295360) UNIT NUMBER (test code = [id number] 934-0) Status (test code = RETURNED FROM ISSUE 8743322) Blood Bank Product (test FFP code = 2263) PRODUCT CODE (test code = A1896Y16 933-2) [facility] W/PLT COUNT & AUTO [id number] 16:50:00 Test Item Value Reference Range Interpretation Comments WHITE BLOOD CELL COUNT (BEAKER) 10.3 K/ L 3.5-10.5 (test code = 775) RED BLOOD CELL COUNT (BEAKER) 2.13 M/ L 4.63-6.08 L (test code = 761) HEMOGLOBIN (BEAKER) (test code = 6.8 GM/DL 13.7-17.5 L 410) HEMATOCRIT (BEAKER) (test code = 21.4 % 40.1-51.0 L 411) MEAN CORPUSCULAR VOLUME (BEAKER) 100.5 fL 79.0-92.2 H (test code = 753) MEAN CORPUSCULAR HEMOGLOBIN 31.9 pg 25.7-32.2 (BEAKER) (test code = 751) MEAN CORPUSCULAR HEMOGLOBIN CONC 31.8 GM/DL 32.3-36.5 L (BEAKER) (test code = 752) RED CELL DISTRIBUTION WIDTH 15.5 % 11.6-14.4 H (BEAKER) (test code = 412) PLATELET COUNT (BEAKER) (test code 89 K/CU MM 150-450 L = 756) MEAN PLATELET VOLUME (BEAKER) 12.2 fL 9.4-12.4 (test code = 754) NUCLEATED RED BLOOD CELLS (BEAKER) 0 /100 WBC 0-0 (test code = 413) NEUTROPHILS RELATIVE PERCENT 59 % (BEAKER) (test code = 429) LYMPHOCYTES RELATIVE PERCENT 37 % (BEAKER) (test code = 430) MONOCYTES RELATIVE PERCENT 2 % (BEAKER) (test code = 431) EOSINOPHILS RELATIVE PERCENT 1 % (BEAKER) (test code = 432) BASOPHILS RELATIVE PERCENT 1 % (BEAKER) (test code = 437) NEUTROPHILS ABSOLUTE COUNT 6.01 K/ L 1.78-5.38 H (BEAKER) (test code = 670) LYMPHOCYTES ABSOLUTE COUNT 3.77 K/ L 1.32-3.57 H (BEAKER) (test code = 414) MONOCYTES ABSOLUTE COUNT (BEAKER) 0.21 K/ L 0.30-0.82 L (test code = 415) EOSINOPHILS ABSOLUTE COUNT 0.05 K/ L 0.04-0.54 (BEAKER) (test code = 416) BASOPHILS ABSOLUTE COUNT (BEAKER) 0.05 K/ L 0.01-0.08 (test code = 417) IMMATURE GRANULOCYTES-RELATIVE 2 % 0-1 H PERCENT (BEAKER) (test code = 2801) SODIUM NA-STAT [id number] 15:41:00 Test Item Value Reference Range Interpretation Comments SODIUM (BEAKER) (test code = 381) 141 meq/L 135-148 POTASSIUM-STAT [id number] 15:41:00 Test Item Value Reference Range Interpretation Comments POTASSIUM (BEAKER) (test code = 4.7 meq/L 3.6-5.5 379) CALCIUM, [id number] 15:41:00 Test Item Value Reference Range Interpretation Comments CALCIUM IONIZED (BEAKER) (test 1.15 mmol/L 1.12-1.27 code = 698) PH, BLOOD (BEAKER) (test code = 7.40 1810) BLOOD GAS, [id number] 15:41:00 Test Item Value Reference Range Interpretation Comments PH ARTERIAL (BEAKER) (test code = 7.40 7.35-7.45 383) PCO2 ARTERIAL (BEAKER) (test code 36 mmHg 35-45 = 384) PO2 ARTERIAL (BEAKER) (test code 261 mmHg 80-90 H = 385) O2 SATURATION ARTERIAL (BEAKER) 99.6 % 96.0-97.0 H (test code = 386) HCO3 ARTERIAL (BEAKER) (test code 22 mmol/L 21-29 = 388) BASE EXCESS ARTERIAL (BEAKER) -2.8 mmol/L -2.0-3.0 L (test code = 387) PATIENT TEMPERATURE (BEAKER) 36.0 C (test code = 1818) FIO2 (BEAKER) (test code = 1819) 100.0 % GLUCOSE-STAT [id number] 15:41:00 Test Item Value Reference Range Interpretation Comments GLUCOSE RANDOM (BEAKER) (test code 216 mg/dL 70-110 H = 652) HGB/HCT (H&H) - STAT [id number] 15:41:00 Test Item Value Reference Range Interpretation Comments HEMOGLOBIN (BEAKER) (test code = 8.0 g/dL 13.0-16.8 L 410) HEMATOCRIT (BEAKER) (test code = 24.0 % 40.0-50.0 L 411) SODIUM NA-STAT [id number] 15:17:00 Test Item Value Reference Range Interpretation Comments SODIUM (BEAKER) (test code = 381) 140 meq/L 135-148 POTASSIUM-STAT [id number] 15:17:00 Test Item Value Reference Range Interpretation Comments POTASSIUM (BEAKER) (test code = 4.5 meq/L 3.6-5.5 379) CALCIUM, [id number] 15:17:00 Test Item Value Reference Range Interpretation Comments CALCIUM IONIZED (BEAKER) (test 1.01 mmol/L 1.12-1.27 L code = 698) PH, BLOOD (BEAKER) (test code = 7.38 1810) BLOOD GAS, [id number] 15:17:00 Test Item Value Reference Range Interpretation Comments PH ARTERIAL (BEAKER) (test code = 7.38 7.35-7.45 383) PCO2 ARTERIAL (BEAKER) (test code 37 mmHg 35-45 = 384) PO2 ARTERIAL (BEAKER) (test code 311 mmHg 80-90 H = 385) O2 SATURATION ARTERIAL (BEAKER) 99.7 % 96.0-97.0 H (test code = 386) HCO3 ARTERIAL (BEAKER) (test code 21 mmol/L 21-29 = 388) BASE EXCESS ARTERIAL (BEAKER) -3.7 mmol/L -2.0-3.0 L (test code = 387) PATIENT TEMPERATURE (BEAKER) 36.0 C (test code = 1818) GLUCOSE-STAT [id number] 15:17:00 Test Item Value Reference Range Interpretation Comments GLUCOSE RANDOM (BEAKER) (test code 226 mg/dL 70-110 H = 652) HGB/HCT (H&H) - STAT [id number] 15:17:00 Test Item Value Reference Range Interpretation Comments HEMOGLOBIN (BEAKER) (test code = 7.5 g/dL 13.0-16.8 L 410) HEMATOCRIT (BEAKER) (test code = 22.0 % 40.0-50.0 L 411) [id number] 15:01:00 Test Item Value Reference Range Interpretation Comments FIBRINOGEN LEVEL (BEAKER) (test 314 mg/dl 225-434 code = 658) [id number] 14:57:00 Test Item Value Reference Range Interpretation Comments PARTIAL THROMBOPLASTIN TIME 38.4 seconds 22.5-36.0 H (BEAKER) (test code = 760) PROTHROMBIN [id number] 14:56:00 Test Item Value Reference Range Interpretation Comments PROTIME (BEAKER) (test code = 19.1 seconds 11.9-14.2 H 759) INR (BEAKER) (test code = 370) 1.7 <=5.9 Effective 01/30/2019: PT Reference Range ChangeNew: 11.9-14.2 Previous: 11.7- 14.7RECOMMENDED COUMADIN/WARFARIN INR THERAPY RANGESSTANDARD DOSE: 2.0-3.0 Includes: PROPHYLAXIS for venous thrombosis, systemic embolization; TREATMENT for venous thrombosis and/or pulmonary embolus.HIGH RISK: Target INR is2.5-3.5 for patients wiht mechanical heart valves.BLOOD GAS, [id number] 14:47:00 Test Item Value Reference Range Interpretation Comments PH ARTERIAL (BEAKER) (test code = 7.25 7.35-7.45 L 383) PCO2 ARTERIAL (BEAKER) (test code 52 mmHg 35-45 H = 384) PO2 ARTERIAL (BEAKER) (test code 223 mmHg 80-90 H = 385) O2 SATURATION ARTERIAL (BEAKER) 99.3 % 96.0-97.0 H (test code = 386) HCO3 ARTERIAL (BEAKER) (test code 22 mmol/L 21-29 = 388) BASE EXCESS ARTERIAL (BEAKER) -4.9 mmol/L -2.0-3.0 L (test code = 387) PATIENT TEMPERATURE (BEAKER) 36.3 C (test code = 1818) FIO2 (BEAKER) (test code = 1819) 100.0 % GLUCOSE-STAT [id number] 14:47:00 Test Item Value Reference Range Interpretation Comments GLUCOSE RANDOM (BEAKER) (test code 240 mg/dL 70-110 H = 652) HGB/HCT (H&H) - STAT [id number] 14:47:00 Test Item Value Reference Range Interpretation Comments HEMOGLOBIN (BEAKER) (test code = 7.1 g/dL 13.0-16.8 L 410) HEMATOCRIT (BEAKER) (test code = 21.0 % 40.0-50.0 L 411) PLATELET [id number] 14:46:00 Test Item Value Reference Range Interpretation Comments PLATELET COUNT (BEAKER) (test code 86 K/CU MM 150-450 L = 756) It Solutions Architect ID - [id number], [id number] 14:46:00 Test Item Value Reference Range Interpretation Comments CALCIUM IONIZED (BEAKER) (test 1.22 mmol/L 1.12-1.27 code = 698) PH, BLOOD (BEAKER) (test code = 7.24 1810) SODIUM NA-STAT [id number] 14:45:00 Test Item Value Reference Range Interpretation Comments SODIUM (BEAKER) (test code = 381) 138 meq/L 135-148 POTASSIUM-STAT [id number] 14:45:00 Test Item Value Reference Range Interpretation Comments POTASSIUM (BEAKER) (test code = 4.9 meq/L 3.6-5.5 379) CT, CTA, [id number] 14:28:00Addendum BeginsREPORT STATUS:A ADDENDUM: I agree with the previously described non vascular findings. Additional findings:None. Signed: Kevin Cary MDReport Verified Date/Time: 10/28/2019 14:28:45 Reading Location: [place] [address] Angio Body Reading RoomAddendum EndsFINAL REPORT CT angiography of the thoracic aorta, 25 November 2019 INDICATION: This is a 69year old male with a diagnosis of coronary artery disease, presents for prevascular surgery assessmen t TECHNIQUE: Spiral acquisition before and during during intravenous contrast [facility]. Images were obtained before and during the dynamic passage of intravenous contrast material. Multi- planar 3-D volume-rendering reconstruction was performed using an independent workstation interactively by the interpreting physician as well as the 3-D specialist for optimal visualisation of the thoracic aorta and its proximal branches. Please refer to the contrast sheet scanned in the EPIC system for the amount and route of contrast given. This exam was performed according to our departmental dose-optimisation programme, which includes automated exposure control, adjustment [...] to be free of calcification of precontrast series, however, patency [...] arch vessels are widely patent. There is some scattered focal nonobstructive calcification seen at the takeoff [...] mid transverse arch; 2.5 cm at the proximal descending aorta; 2.2 cm at the mid descending aorta; 2.1 cm at the ed phragmatic hiatus. The left brachycephalic vein is 2.8 [...] dictated regarding the non-vascular findings by the [employer] Kit Assembler Radiologist. Signed: Alfonzo Almanza MDReport Verified Date/Time: 10/28/2019 07:41:51 BLOOD GAS, [id number] 14:00:00 Test Item Value Reference Range Interpretation Comments PH ARTERIAL (BEAKER) (test code = 7.40 7.35-7.45 383) PCO2 ARTERIAL (BEAKER) (test code 37 mmHg 35-45 = 384) PO2 ARTERIAL (BEAKER) (test code 317 mmHg 80-90 H = 385) O2 SATURATION ARTERIAL (BEAKER) 99.7 % 96.0-97.0 H (test code = 386) HCO3 ARTERIAL (BEAKER) (test code 23 mmol/L 21-29 = 388) BASE EXCESS ARTERIAL (BEAKER) -2.2 mmol/L -2.0-3.0 L (test code = 387) PATIENT TEMPERATURE (BEAKER) 35.5 C (test code = 1818) FIO2 (BEAKER) (test code = 1819) 70.0 % POTASSIUM-STAT [id number] 14:00:00 Test Item Value Reference Range Interpretation Comments POTASSIUM (BEAKER) (test code = 5.7 meq/L 3.6-5.5 H 379) GLUCOSE-STAT [id number] 14:00:00 Test Item Value Reference Range Interpretation Comments GLUCOSE RANDOM (BEAKER) (test code 229 mg/dL 70-110 H = 652) HGB/HCT (H&H) - STAT [id number] 14:00:00 Test Item Value Reference Range Interpretation Comments HEMOGLOBIN (BEAKER) (test code = 7.1 g/dL 13.0-16.8 L 410) HEMATOCRIT (BEAKER) (test code = 21.0 % 40.0-50.0 L 411) SODIUM NA-STAT [id number] 13:59:00 Test Item Value Reference Range Interpretation Comments SODIUM (BEAKER) (test code = 381) 138 meq/L 135-148 SODIUM NA-STAT [id number] 13:33:00 Test Item Value Reference Range Interpretation Comments SODIUM (BEAKER) (test code = 381) 138 meq/L 135-148 POTASSIUM-STAT [id number] 13:33:00 Test Item Value Reference Range Interpretation Comments POTASSIUM (BEAKER) (test code = 5.4 meq/L 3.6-5.5 379) BLOOD GAS, [id number] 13:33:00 Test Item Value Reference Range Interpretation Comments PH ARTERIAL (BEAKER) (test code = 7.41 7.35-7.45 383) PCO2 ARTERIAL (BEAKER) (test code 39 mmHg 35-45 = 384) PO2 ARTERIAL (BEAKER) (test code 290 mmHg 80-90 H = 385) O2 SATURATION ARTERIAL (BEAKER) 99.7 % 96.0-97.0 H (test code = 386) HCO3 ARTERIAL (BEAKER) (test code 24 mmol/L 21-29 = 388) BASE EXCESS ARTERIAL (BEAKER) -0.6 mmol/L -2.0-3.0 (test code = 387) PATIENT TEMPERATURE (BEAKER) 35.8 C (test code = 1818) FIO2 (BEAKER) (test code = 1819) 70.0 % GLUCOSE-STAT [id number] 13:33:00 Test Item Value Reference Range Interpretation Comments GLUCOSE RANDOM (BEAKER) (test code 202 mg/dL 70-110 H = 652) HGB/HCT (H&H) - STAT [id number] 13:33:00 Test Item Value Reference Range Interpretation Comments HEMOGLOBIN (BEAKER) (test code = 8.4 g/dL 13.0-16.8 L 410) HEMATOCRIT (BEAKER) (test code = 25.0 % 40.0-50.0 L 411) LACTIC ACID, [id number] 13:10:00 Test Item Value Reference Range Interpretation Comments LACTATE BLOOD ARTERIAL (2) 0.9 mmol/L 0.5-2.2 (BEAKER) (test code = 2874) [employer] ID - SALONI FSODIUM NA-STAT [id number] 13:00:00 Test Item Value Reference Range Interpretation Comments SODIUM (BEAKER) (test code = 381) 135 meq/L 135-148 POTASSIUM-STAT [id number] 13:00:00 Test Item Value Reference Range Interpretation Comments POTASSIUM (BEAKER) (test code = 5.1 meq/L 3.6-5.5 379) BLOOD GAS, [id number] 13:00:00 Test Item Value Reference Range Interpretation Comments PH ARTERIAL (BEAKER) (test code = 7.36 7.35-7.45 383) PCO2 ARTERIAL (BEAKER) (test code 43 mmHg 35-45 = 384) PO2 ARTERIAL (BEAKER) (test code 286 mmHg 80-90 H = 385) O2 SATURATION ARTERIAL (BEAKER) 99.6 % 96.0-97.0 H (test code = 386) HCO3 ARTERIAL (BEAKER) (test code 25 mmol/L 21-29 = 388) BASE EXCESS ARTERIAL (BEAKER) -1.6 mmol/L -2.0-3.0 (test code = 387) PATIENT TEMPERATURE (BEAKER) 32.0 C (test code = 1818) FIO2 (BEAKER) (test code = 1819) 65.0 % GLUCOSE-STAT [id number] 13:00:00 Test Item Value Reference Range Interpretation Comments GLUCOSE RANDOM (BEAKER) (test code 211 mg/dL 70-110 H = 652) HGB/HCT (H&H) - STAT [id number] 13:00:00 Test Item Value Reference Range Interpretation Comments HEMOGLOBIN (BEAKER) (test code = 7.3 g/dL 13.0-16.8 L 410) HEMATOCRIT (BEAKER) (test code = 21.0 % 40.0-50.0 L 411) POTASSIUM-STAT [id number] 12:43:00 Test Item Value Reference Range Interpretation Comments POTASSIUM (BEAKER) (test code = 5.6 meq/L 3.6-5.5 H 379) SODIUM NA-STAT [id number] 12:43:00 Test Item Value Reference Range Interpretation Comments SODIUM (BEAKER) (test code = 381) 133 meq/L 135-148 L BLOOD GAS, [id number] 12:42:00 Test Item Value Reference Range Interpretation Comments PH ARTERIAL (BEAKER) (test code = 7.37 7.35-7.45 383) PCO2 ARTERIAL (BEAKER) (test code 40 mmHg 35-45 = 384) PO2 ARTERIAL (BEAKER) (test code 263 mmHg 80-90 H = 385) O2 SATURATION ARTERIAL (BEAKER) 99.6 % 96.0-97.0 H (test code = 386) HCO3 ARTERIAL (BEAKER) (test code 25 mmol/L 21-29 = 388) BASE EXCESS ARTERIAL (BEAKER) -2.2 mmol/L -2.0-3.0 L (test code = 387) PATIENT TEMPERATURE (BEAKER) 30.8 C (test code = 1818) FIO2 (BEAKER) (test code = 1819) 65.0 % GLUCOSE-STAT [id number] 12:42:00 Test Item Value Reference Range Interpretation Comments GLUCOSE RANDOM (BEAKER) (test code 201 mg/dL 70-110 H = 652) HGB/HCT (H&H) - STAT [id number] 12:42:00 Test Item Value Reference Range Interpretation Comments HEMOGLOBIN (BEAKER) (test code = 7.9 g/dL 13.0-16.8 L 410) HEMATOCRIT (BEAKER) (test code = 23.0 % 40.0-50.0 L 411) BLOOD GAS, [id number] 12:21:00 Test Item Value Reference Range Interpretation Comments PH ARTERIAL (BEAKER) (test code = 7.45 7.35-7.45 383) PCO2 ARTERIAL (BEAKER) (test code 32 mmHg 35-45 L = 384) PO2 ARTERIAL (BEAKER) (test code 364 mmHg 80-90 H = 385) O2 SATURATION ARTERIAL (BEAKER) 99.8 % 96.0-97.0 H (test code = 386) HCO3 ARTERIAL (BEAKER) (test code 23 mmol/L 21-29 = 388) BASE EXCESS ARTERIAL (BEAKER) -2.4 mmol/L -2.0-3.0 L (test code = 387) PATIENT TEMPERATURE (BEAKER) 30.2 C (test code = 1818) FIO2 (BEAKER) (test code = 1819) 80.0 % GLUCOSE-STAT [id number] 12:21:00 Test Item Value Reference Range Interpretation Comments GLUCOSE RANDOM (BEAKER) (test code 197 mg/dL 70-110 H = 652) HGB/HCT (H&H) - STAT [id number] 12:21:00 Test Item Value Reference Range Interpretation Comments HEMOGLOBIN (BEAKER) (test code = 7.2 g/dL 13.0-16.8 L 410) HEMATOCRIT (BEAKER) (test code = 21.0 % 40.0-50.0 L 411) SODIUM NA-STAT [id number] 12:21:00 Test Item Value Reference Range Interpretation Comments SODIUM (BEAKER) (test code = 381) 134 meq/L 135-148 L POTASSIUM-STAT [id number] 12:10:00 Test Item Value Reference Range Interpretation Comments POTASSIUM (BEAKER) (test code = 4.6 meq/L 3.6-5.5 379) [id number] 09:31:Dasha Pink MD - 10/28/2019 9:31 AM CST TEEDate: 10/28/2019 9:31 AM Sex: Female Location: ICU Requesting Physician: Gal Chavez MD Examiner: Dasha Cortez MD Intubated Sedated Patient screened for esoph disease: Yes Insertion: easy Probe Type: multiplane Modalities: 2D, CFM, CWD and PWD Pre InterventionSummary: Aorta: No aneurysm, no dissection, no mobile plaquesAV: trileaflet morphology, No aortic stenosis, central trace aortic regurgitationLV: normal chamber size , mild LVH, Mildly reduced systolic function (EF 45-50 % by ryan's), Diskinetic septal wall due to ventricular pacing, apical hypokinesis. No other RWMA, no thrombusMV: normal morphology, mild mitral regurgitation ( VC .2, EROA 0.1 cm ), No mitral stenosisLA: no AMANDA thrombus, normal size and functionPV: limited visualizationRV: sized chamber, normal function, no thrombusTV: normal morphology, trace tricuspid regurgitationRA: no thrombusPFO by color dopper flow ( L-> R)All findings communicated to surgical team. Post Intervention Summary: S/p 4v ACBEpi@2, NE@1LVEF 50-55% by qualitative assessment. No RWMAsMR remains the sameNopericardial effusionNo aortic dissectionRV function normalCHI [facility] CenterODIUM NA-STAT [id number] 08:36:00 Test Item Value Reference Range Interpretation Comments SODIUM (BEAKER) (test code = 381) 135 meq/L 135-148 POTASSIUM-STAT [id number] 08:36:00 Test Item Value Reference Range Interpretation Comments POTASSIUM (BEAKER) (test code = 4.5 meq/L 3.6-5.5 379) BLOOD GAS, [id number] 08:36:00 Test Item Value Reference Range Interpretation Comments PH ARTERIAL (BEAKER) (test code = 7.37 7.35-7.45 383) PCO2 ARTERIAL (BEAKER) (test code 47 mmHg 35-45 H = 384) PO2 ARTERIAL (BEAKER) (test code = 286 mmHg 80-90 H 385) O2 SATURATION ARTERIAL (BEAKER) 99.6 % 96.0-97.0 H (test code = 386) HCO3 ARTERIAL (BEAKER) (test code 27 mmol/L 21-29 = 388) BASE EXCESS ARTERIAL (BEAKER) 0.9 mmol/L -2.0-3.0 (test code = 387) PATIENT TEMPERATURE (BEAKER) (test 37.0 C code = 1818) FIO2 (BEAKER) (test code = 1819) 87.0 % GLUCOSE-STAT [id number] 08:36:00 Test Item Value Reference Range Interpretation Comments GLUCOSE RANDOM (BEAKER) (test code 138 mg/dL 70-110 H = 652) HGB/HCT (H&H) - STAT [id number] 08:36:00 Test Item Value Reference Range Interpretation Comments HEMOGLOBIN (BEAKER) (test code = 8.9 g/dL 13.0-16.8 L 410) HEMATOCRIT (BEAKER) (test code = 26.0 % 40.0-50.0 L 411) CTA [id number] 07:41:00Interface, External Ris In - 10/28/2019 2:31 PM CSTAddendum BeginsREPORT STATUS:A ADDENDUM: I agree with the previously described non vascular findings. Additional findings:None. Signed: Kevin Cary MDReport Verified Date/Time: 10/28/2019 14:28:45 Reading Location: [facility] P048 Angio Body Reading RoomAddendum EndsFINAL REPORT CT angiography of the thoracic aorta, 25 November 2019 INDICATION: This is a 69 year old male with a diagnosis of coronary artery disease, presents for prevascular surgery assessment TECHNIQUE: Spiral acquisition before and during during intravenous contrast administration using a Tali multidetector CT scanner. Images were obtained before and during the dynamic passage of intravenous contrast material. Multi-planar 3-D volume-rendering reconstruction was performed using an independent workstation interactively by the interpreting physician as well as the 3-D specialist for optimal visualisation of the thoracic aorta and its proximal branches. Please refer to the contrast sheet scanned in the EPIC system for the amount and route of contrast given. This exam was performed according to our departmental dose-optimisation programme, which includes automated exposure control, adjustment [...] identified. Coronary artery origins are normal and diffuse calcification is identified in all 3 coronary territories. In fact, there is likely stentversus diffuse calcification identified in the proximal and mid LAD for length of approximately 6.7 cm. Thereafter, remainder of the the mid and distal LAD appears to be free of calcification of precontrast series, however, patency is difficult to comment upon. The thoracic aorta is normal in course, contour, and calibre. There is no calcification seen in the aortic root and ascending thoracic aorta. Minimal calcification is seen scattered along the transverse arch and descending thoracic aorta. There is no evidence of acute aortic pathology, specifically, there is no dissection, intramural hematoma, or contained rupture. The arch vessel branching pattern is normal and the visualised portion of the arch vessels are widely patent. There is some scattered focal nonobstructive calcification seen at the takeoff of the left subclavian artery at image 47 thereafter remainder of the the left subclavian artery including where the DESMOND arises of calcification. The left subclavian artery is widely patent. The left and the right internal mammary arteries are also well seen. Quantitative dimensions ofthe aorta are as follows: 3.2 cm at the sinuses of Valsalva (the sino-tubular junction is preserved); 2.7 cm at the proximal ascending thoracic aorta; 3.5 cm at the mid ascending aorta; 2.7 cm at thedistal ascending aorta; 2.3 cm at the mid transverse arch; 2.5 cm at the proximal descending aorta; [...] the left rib. Please See snapshot for details.No obvious aortic valve calcification is seen and no mitral annular calcification is appreciated. NON-VASCULAR: The visualised thyroid gland is unremarkable. The chest wall and mediastinum appear normal. Number of small lymph nodes are seen, less than 1 cm in size, therefore considered nonspecific in nature. In the lung windows, no endobronchial lesion is seen. Small left basal pleural effusion is identified and associated atelectatic changes are seen. Overall, no pulmonary nodule is appreciated. Limited images of the upper abdomen reveals no gross abnormality. In the AP orientation, the spleen is m ildly prominent measure 13.3 cm, of uncertain significance. Correlate clinically. No acute bony pathology is seen. Some degenerative changes is noted. CONCLUSIONS: 1. The thoracic aorta is normal in course, contour, and calibre. There ascending thoracic aorta and aortic root is free of calcification.No ectasia or aneurysmal dilation is seen. There is no evidence of acute aortic pathology, specifically, there is no dissection, intramural hematoma, or contained rupture. Quantitative dimension ofthe thoracic aorta are as described above. Minimal nonobstructive calcification is seen in the takeoff of the left subclavian artery and the left ablation artery is widely patent. 2. Normal coronaryartery origins. Diffuse calcification is seen in all 3 coronary territories, as specially in the proximal 6.7 cm of the LAD, diffuse calcification versus stent is present. The left ventricle is enlarged. 3. Pulmonary findings as described above. Small left basal pleural effusion. The central pulmonaryartery is normal in calibre no evidence of central pulmonary artery embolism is identified. 4. Other findings as described above 5. An addendum will be dictated regarding the non-vascular findings bythe De Icer Kit Assembler Radiologist. Signed: Alfonzo Almanza MDReport Verified Date/Time: 10/28/2019 07:41:51 [id number] 07:05:00 Test Item Value Reference Range Interpretation Comments PROTIME (BEAKER) (test code = 14.1 seconds 11.9-14.2 759) INR (BEAKER) (test code = 370) 1.1 <=5.9 PARTIAL THROMBOPLASTIN TIME > seconds 22.5-36.0 HH (BEAKER) (test code = 760) Effective 01/30/2019: PT Reference Range ChangeNew: 11.9-14.2 Previous: 11.7- 14.7RECOMMENDED COUMADIN/WARFARIN INR THERAPY RANGESSTANDARD DOSE: 2.0-3.0 Includes: PROPHYLAXIS for venous thrombosis, systemic embolization; TREATMENT for venous thrombosis and/or pulmonary embolus.HIGH RISK: Target INR is2.5-3.5 for patients wiht mechanical heart valves.Comprehensive metabolic panel 2019-10-28 05:28:00 Test Item Value Reference Range Interpretation Comments Protein, Total (test 6.0 6.0- 8.3 gm/dL code = 2885-2) Albumin (test code = 3.8 g/dL 3.5-5 92913-6) Alkaline Phosphatase 147 U/L 40-150 (test code = 6768-6) Total Bilirubin (test 0.4 mg/dL 0.2-1.2 code = 1975-2) Sodium (test code = 137 meq/L 388-939 7898-2) Potassium (test code = 4.7 meq/L 3.5-5.1 2823-3) Chloride (test code = 101 meq/L 98-107 2075-0) CO2 (test code = 26 meq/L -29 8-9) BUN (test code = 43 mg/dL 7-21 H 3094-0) Creatinine (test code 9.57 mg/dL 0.57-1.25 H = 2160-0) Glucose (test code = 138 mg/dL 70-105 H 2345-7) Calcium (test code = 9.1 mg/dL 8.4-10.2 51935-3) AST (test code = 28 U/L 5-34 1920-8) ALT (test code = 38 U/L 6-55 1742-6) EGFR (test code = 5 mL/min/1.73 [place] [address]-6) NOT ACCURATE CREATININE CLEARANCE IN PREDICTING GLOMERULAR FILTRATION RATE . ESTIMATED GFR I S NOT APPLICABLE FOR DIALYSIS PATIENTS. LIS (test code = LIS) It Solutions Architect ID [place] PRECIADO W Lab Interpretation Abnormal (test code = 87655-9) [facility] [id number] 05:28:00 Test Item Value Reference Range Interpretation Comments TOTAL PROTEIN 6.0 gm/dL 6.0-8.3 (BEAKER) (test code = 770) ALBUMIN (BEAKER) 3.8 g/dL 3.5-5.0 (test code = 1145) ALKALINE PHOSPHATASE 147 U/L 40-150 (BEAKER) (test code = 346) BILIRUBIN TOTAL 0.4 mg/dL 0.2-1.2 (BEAKER) (test code = 377) SODIUM (BEAKER) (test 137 meq/L 136-145 code = 381) POTASSIUM (BEAKER) 4.7 meq/L 3.5-5.1 (test code = 379) CHLORIDE (BEAKER) 101 meq/L 98-107 (test code = 382) CO2 (BEAKER) (test 26 meq/L 22-29 code = 355) BLOOD UREA NITROGEN 43 mg/dL 7-21 H (BEAKER) (test code = 354) CREATININE (BEAKER) 9.57 mg/dL 0.57-1.25 H (test code = 358) GLUCOSE RANDOM 138 mg/dL 70-105 H (BEAKER) (test code = 652) CALCIUM (BEAKER) 9.1 mg/dL 8.4-10.2 (test code = 697) AST (SGOT) (BEAKER) 28 U/L 5-34 (test code = 353) ALT (SGPT) (BEAKER) 38 U/L 6-55 (test code = 347) EGFR (BEAKER) (test 5 mL/min/1.73 ESTIMAT ED GFR IS code = 1092) sq m NOT ACCURATE CREATININE CLEARANCE IN PREDICTING GLOMERULAR FILTRATION RATE . ESTIMATED GFR I S NOT APPLICABLE FOR DIALYSIS PATIEN TS. It Solutions Architect ID [place] PRECIADO [id number] 05:23:00 Test Item Value Reference Range Interpretation Comments MAGNESIUM (BEAKER) (test code = 2.8 mg/dL 1.6-2.6 H 627) It Solutions Architect JOHN PRECIADO WPROTHROMBIN TIME/[id number] 05:03:00 Test Item Value Reference Range Interpretation Comments PROTIME (BEAKER) (test code = 13.7 seconds 11.9-14.2 759) INR (BEAKER) (test code = 370) 1.1 <=5.9 Effective 01/30/2019: PT Reference Range ChangeNew: 11.9-14.2 Previous: 11.7- 14.7RECOMMENDED COUMADIN/WARFARIN INR THERAPY RANGESSTANDARD DOSE: 2.0-3.0 Includes: PROPHYLAXIS for venous thrombosis, systemic embolization; TREATMENT for venous thrombosis and/or pulmonary embolus.HIGH RISK: Target INR is2.5-3.5 for patients wiht mechanical heart valves.CBC W/PLT COUNT & AUTO [id number] 04:41:00 Test Item Value Reference Range Interpretation Comments WHITE BLOOD CELL COUNT (BEAKER) 5.4 K/ L 3.5-10.5 (test code = 775) RED BLOOD CELL COUNT (BEAKER) 2.71 M/ L 4.63-6.08 L (test code = 761) HEMOGLOBIN (BEAKER) (test code = 8.7 GM/DL 13.7-17.5 L 410) HEMATOCRIT (BEAKER) (test code = 26.6 % 40.1-51.0 L 411) MEAN CORPUSCULAR VOLUME (BEAKER) 98.2 fL 79.0-92.2 H (test code = 753) MEAN CORPUSCULAR HEMOGLOBIN 32.1 pg 25.7-32.2 (BEAKER) (test code = 751) MEAN CORPUSCULAR HEMOGLOBIN CONC 32.7 GM/DL 32.3-36.5 (BEAKER) (test code = 752) RED CELL DISTRIBUTION WIDTH 15.3 % 11.6-14.4 H (BEAKER) (test code = 412) PLATELET COUNT (BEAKER) (test 157 K/CU MM 150-450 code = 756) MEAN PLATELET VOLUME (BEAKER) 11.4 fL 9.4-12.4 (test code = 754) NUCLEATED RED BLOOD CELLS 0 /100 WBC 0-0 (BEAKER) (test code = 413) NEUTROPHILS RELATIVE PERCENT 57 % (BEAKER) (test code = 429) LYMPHOCYTES RELATIVE PERCENT 30 % (BEAKER) (test code = 430) MONOCYTES RELATIVE PERCENT 9 % (BEAKER) (test code = 431) EOSINOPHILS RELATIVE PERCENT 2 % (BEAKER) (test code = 432) BASOPHILS RELATIVE PERCENT 1 % (BEAKER) (test code = 437) NEUTROPHILS ABSOLUTE COUNT 3.05 K/ L 1.78-5.38 (BEAKER) (test code = 670) LYMPHOCYTES ABSOLUTE COUNT 1.60 K/ L 1.32-3.57 (BEAKER) (test code = 414) MONOCYTES ABSOLUTE COUNT (BEAKER) 0.50 K/ L 0.30-0.82 (test code = 415) EOSINOPHILS ABSOLUTE COUNT 0.11 K/ L 0.04-0.54 (BEAKER) (test code = 416) BASOPHILS ABSOLUTE COUNT (BEAKER) 0.05 K/ L 0.01-0.08 (test code = 417) IMMATURE GRANULOCYTES-RELATIVE 1 % 0-1 PERCENT (BEAKER) (test code = 2801) POCT-GLUCOSE [id number] 22:22:00 Test Item Value Reference Range Interpretation Comments POC-GLUCOSE METER 153 mg/dL 70-110 H : TESTED A T [facility] 6720 (BEAKER) (test code = [facility], 153) [address]: It Solutions Architect/Techni nuha ID = [id number] for ANJALI AGUILA POCT-GLUCOSE [id number] 17:17:00 Test Item Value Reference Range Interpretation Comments POC-GLUCOSE METER 198 mg/dL 70-110 H : TESTED A T [facility] 6720 (BEAKER) (test code = [facility], 153) 8[address]: It Solutions Architect/Techni nuha ID = [id number] for SAIDA MENDIETA POCT-GLUCOSE [id number] 12:44:00 Test Item Value Reference Range Interpretation Comments POC-GLUCOSE METER 185 mg/dL 70-110 H : TESTED A T [facility] 6720 (BEAKER) (test code = [facility], 153) 283[address]: It Solutions Architect/Techni nuha ID = [id number] for LENNOX MARTINEZ [id number] 09:04:00 Test Item Value Reference Range Interpretation Comments PARTIAL THROMBOPLASTIN TIME 88.4 seconds 22.5-36.0 H (BEAKER) (test code = 760) POCT-GLUCOSE [id number] 07:56:00 Test Item Value Reference Range Interpretation Comments POC-GLUCOSE METER 154 mg/dL 70-110 H : TESTED Toby Acosta [facility] 6720 (BEAKER) (test code = [place], 1538) [address]: It Solutions Architect/Techni nuha ID = [id number] for LENNOX MARTINEZ BASIC METABOLIC [id number] 04:36:00 Test Item Value Reference Range Interpretation Comments SODIUM (BEAKER) 138 meq/L 136-145 (test code = 381) POTASSIUM (BEAKER) 4.6 meq/L 3.5-5.1 (test code = 379) CHLORIDE (BEAKER) 103 meq/L 98-107 (test code = 382) CO2 (BEAKER) (test 26 meq/L 22-29 code = 355) BLOOD UREA NITROGEN 31 mg/dL 7-21 H (BEAKER) (test code = 354) CREATININE (BEAKER) 7.45 mg/dL 0.57-1.25 H (test code = 358) GLUCOSE RANDOM 175 mg/dL 70-105 H (BEAKER) (test code = 652) CALCIUM (BEAKER) 8.9 mg/dL 8.4-10.2 (test code = 697) EGFR (BEAKER) (test 7 mL/min/1.73 ESTIMAT ED GFR IS code = 1092) sq m NOT ACCURATE CREATININE CLEARANCE IN PREDICTING GLOMERULAR FILTRATION RATE . ESTIMATED GFR I S NOT APPLICABLE FOR DIALYSIS PATIEN TS. It Solutions Architect ID - [id number] (HEMOGRAM ONLY)2019-10-27 04:03:00 Test Item Value Reference Range Interpretation Comments WHITE BLOOD CELL COUNT (BEAKER) 4.3 K/ L 3.5-10.5 (test code = 775) RED BLOOD CELL COUNT (BEAKER) 2.72 M/ L 4.63-6.08 L (test code = 761) HEMOGLOBIN (BEAKER) (test code = 8.6 GM/DL 13.7-17.5 L 410) HEMATOCRIT (BEAKER) (test code = 26.8 % 40.1-51.0 L 411) MEAN CORPUSCULAR VOLUME (BEAKER) 98.5 fL 79.0-92.2 H (test code = 753) MEAN CORPUSCULAR HEMOGLOBIN 31.6 pg 25.7-32.2 (BEAKER) (test code = 751) MEAN CORPUSCULAR HEMOGLOBIN CONC 32.1 GM/DL 32.3-36.5 L (BEAKER) (test code = 752) RED CELL DISTRIBUTION WIDTH 15.7 % 11.6-14.4 H (BEAKER) (test code = 412) PLATELET COUNT (BEAKER) (test 150 K/CU MM 150-450 code = 756) MEAN PLATELET VOLUME (BEAKER) 11.5 fL 9.4-12.4 (test code = 754) NUCLEATED RED BLOOD CELLS 0 /100 WBC 0-0 (BEAKER) (test code = 413) [id number] 02:06:00 Test Item Value Reference Range Interpretation Comments PARTIAL THROMBOPLASTIN TIME 65.3 seconds 22.5-36.0 H (BEAKER) (test code = 760) POCT-GLUCOSE [id number] 22:33:00 Test Item Value Reference Range Interpretation Comments POC-GLUCOSE METER 164 mg/dL 70-110 H : TESTED A T [facility] 6720 (BEAKER) (test code = [facility] [employer] [facility], 153) [address]: It Solutions Architect/Techni nuha ID = [id number] for ANJALI AGUILA [id number] 18:06:00 Test Item Value Reference Range Interpretation Comments PARTIAL THROMBOPLASTIN TIME 80.0 seconds 22.5-36.0 H (BEAKER) (test code = 760) [id number] 17:13:00 Test Item Value Reference Range Interpretation Comments PARTIAL THROMBOPLASTIN TIME 186.3 seconds 22.5-36.0 HH (BEAKER) (test code = 760) POCT-GLUCOSE [id number] 17:06:00 Test Item Value Reference Range Interpretation Comments POC-GLUCOSE METER 175 mg/dL 70-110 H : TESTED A T [facility] 6720 (BEAKER) (test code = [employer] [facility], 153) 463[address]: It Solutions Architect/Techni nuha ID = [id number] for JONATHAN RODRIGEZ POCT-GLUCOSE [id number] 12:28:00 Test Item Value Reference Range Interpretation Comments POC-GLUCOSE METER 136 mg/dL 70-110 H : TESTED A T [facility] 6720 (BEAKER) (test code = [facility], 1538) 80[address]: It Solutions Architect/Techni nuha ID = [id number] for JONATHAN RODRIGEZ [id number] 10:47:00 Test Item Value Reference Range Interpretation Comments PARTIAL THROMBOPLASTIN TIME 102.9 seconds 22.5-36.0 H (BEAKER) (test code = 760) POCT-GLUCOSE [id number] 08:02:00 Test Item Value Reference Range Interpretation Comments POC-GLUCOSE METER 133 mg/dL 70-110 H : TESTED A T [facility] 6720 (BEAKER) (test code = [facility] [place], 1538) [address]: It Solutions Architect/Techni nuha ID = [id number] for JONATHAN RODRIGEZ BASIC METABOLIC [id number] 04:18:00 Test Item Value Reference Range Interpretation Comments SODIUM (BEAKER) 134 meq/L 136-145 L (test code = 381) POTASSIUM (BEAKER) 4.4 meq/L 3.5-5.1 (test code = 379) CHLORIDE (BEAKER) 96 meq/L 98-107 L (test code = 382) CO2 (BEAKER) (test 26 meq/L 22-29 code = 355) BLOOD UREA NITROGEN 51 mg/dL 7-21 H (BEAKER) (test code = 354) CREATININE (BEAKER) 10.02 mg/dL 0.57-1.25 H (test code = 358) GLUCOSE RANDOM 148 mg/dL 70-105 H (BEAKER) (test code = 652) CALCIUM (BEAKER) 8.9 mg/dL 8.4-10.2 (test code = 697) EGFR (BEAKER) (test 5 mL/min/1.73 ESTIMAT ED GFR IS code = 1092) sq m NOT ACCURATE CREATININE CLEARANCE IN PREDICTING GLOMERULAR FILTRATION RATE . ESTIMATED GFR I S NOT APPLICABLE FOR DIALYSIS PATIEN TS. It Solutions Architect ID - GERYR [id number] 03:54:00 Test Item Value Reference Range Interpretation Comments PARTIAL THROMBOPLASTIN TIME 76.6 seconds 22.5-36.0 H (BEAKER) (test code = 760) CBC (HEMOGRAM ONLY)2019-10-26 03:50:00 Test Item Value Reference Range Interpretation Comments WHITE BLOOD CELL COUNT (BEAKER) 4.6 K/ L 3.5-10.5 (test code = 775) RED BLOOD CELL COUNT (BEAKER) 2.87 M/ L 4.63-6.08 L (test code = 761) HEMOGLOBIN (BEAKER) (test code = 9.1 GM/DL 13.7-17.5 L 410) HEMATOCRIT (BEAKER) (test code = 27.6 % 40.1-51.0 L 411) MEAN CORPUSCULAR VOLUME (BEAKER) 96.2 fL 79.0-92.2 H (test code = 753) MEAN CORPUSCULAR HEMOGLOBIN 31.7 pg 25.7-32.2 (BEAKER) (test code = 751) MEAN CORPUSCULAR HEMOGLOBIN CONC 33.0 GM/DL 32.3-36.5 (BEAKER) (test code = 752) RED CELL DISTRIBUTION WIDTH 15.5 % 11.6-14.4 H (BEAKER) (test code = 412) PLATELET COUNT (BEAKER) (test 155 K/CU MM 150-450 code = 756) MEAN PLATELET VOLUME (BEAKER) 11.5 fL 9.4-12.4 (test code = 754) NUCLEATED RED BLOOD CELLS 0 /100 WBC 0-0 (BEAKER) (test code = 413) [id number] 22:02:00 Test Item Value Reference Range Interpretation Comments PARTIAL THROMBOPLASTIN TIME 64.5 seconds 22.5-36.0 H (BEAKER) (test code = 760) POCT-GLUCOSE [id number] 21:44:00 Test Item Value Reference Range Interpretation Comments POC-GLUCOSE METER 129 mg/dL 70-110 H : TESTED A T [facility] 6720 (BEAKER) (test code = [facility], 1538) [id number]: It Solutions Architect/Techni nuha ID = [id number] for TERELL MADDEN [id number] 20:43:00 Test Item Value Reference Range Interpretation Comments PARTIAL THROMBOPLASTIN TIME 50.7 seconds 22.5-36.0 H (BEAKER) (test code = 760) 2D Echo W/Doppler(CW/PW/Color)2019-10-25 17:26:21Ejection FractionSLEH ECHO HEARTLAB MKCKESSON CPACSInterface, External Ris In 10/25/2019 5:26 PM C STTransthoracic Echocardiography Report (TTE) Demographics Patient Name [facility], Date of Study 10/25/2019 MARYAM MAGUIRE Gender Male Visit Number [id number] Race Room Number C832 Number Date of 1950 Referring Cathy Scherer Physician LI Mott Age 69 year(s) Cam Milling Machine Operator Patricia Garcia [facility] Male Model Karthik Rivera Interpreting [facility] Cardiology Physician Melisa Meyers MD Procedure Type of Study TTE procedure:2DECHO W DOPPLER(CW/PW/COLOR) (STAT) Indications:Pre OP CABG.Clinical HistoryHGB 9.7HCT 31.0 %PULMONARY EMBOLUS, SYNCOPE/BRADYCARDIA, PPM, CAD, MULTIPLE PCI X3 (MOSTRECENT 01/2019), ESRD, NSTEMI, HX TAMPONADEContrast Medium: Definity.Height: 71 inches Weight: 125.65 kg (277 lbs)BSA: 2.42 m^2 BMI: 38.63kg/m^2HR: 62 bpm BP: 136/63 mmHg Summary LV [...] pressure). LA size is severely enlarged (>48 ml/m2) . RV pacing wire is visualized . [...] vol - 34-74ml/m2). Normal LV wall thickness. The following segment(s) appear severely hypokinetic: mid to apical anteroseptal . The other segments contract normally. LVEF by Ryan's method of disk assessment is normal (55-60%) . Global LV systolic function normal . Grade 2 diastolic dysfunction (moderately increased LA pressure). Left Atrium LAsize is severely enlarged (>48 ml/m2) . Right Ventricle Normal right ventricle structure and function. RV pacing wire is visualized . Right Atrium Normal right atrium. RA pacing wire is visualized . Aortic Valve Mild AoV cusp thickening. Mitral Valve Mild MV leaflet thickening. Tricuspid Valve A trace oftricuspid regurgitation. Unable to estimate peak systolic PA pressure; inadequate TR velocity signal. Pulmonic Valve Normal PV structure and function by limited views and Doppler. Aorta Aortic root size (SInus of Valsalva diameter) is normal . Pericardium No evidence of pericardial effusion. IVC/SVC/PA/PV/Pleural The estimated RA pressure by IVC dynamics 11-15 mmHg . Chambers/Structures Left Atrium LA Dimension: 4.17 cm LA Area: 32.01 cm^2 LA Volume: 115.77 ml LA Vol. Index: 48 ml/m^2 Left Ventricle LVIDd: 5.64 cm LVEDV:156.12 ml LV Septum Diastolic: 0.91 cm LV PW Diastolic: 0.93 cm LVEDV Ryan's:157.15 ml LVESV Ryan's:68.31 ml LVEF Ryan's: 56.6 % LVEDVI: 65 ml/m^2 LVESVI: 28 [...] LVOT CO: 6.77 l/min LVOT CI: 2.8 l/min/m^2[id number]00 Test Item Value Reference Range Interpretation Comments PARTIAL THROMBOPLASTIN TIME 192.2 seconds 22.5-36.0 HH (BEAKER) (test code = 760) POCT-GLUCOSE [id number] 16:58:00 Test Item Value Reference Range Interpretation Comments POC-GLUCOSE METER 131 mg/dL 70-110 H : TESTED A T [facility] 6720 ([place]) (test code = [facility], 153) [address]: It Solutions Architect/Techni nuha ID = [id number] for AP ARECE, ISAIAS POCT-GLUCOSE [id number] 14:57:00 Test Item Value Reference Range Interpretation Comments POC-GLUCOSE METER 170 mg/dL 70-110 H : TESTED A T [facility] 6720 ([place]) (test code = [facility], 153) [address]: It Solutions Architect/Techni nuha ID = [id number] for CO RTEZ, CHULA POCT-GLUCOSE [id number] 10:15:00 Test Item Value Reference Range Interpretation Comments POC-GLUCOSE METER 170 mg/dL 70-110 H : TESTED A T [facility] 6720 ([place]) (test code = [facility], 153) [address]: It Solutions Architect/Techni nuha ID = [id number] for CO RTEZ, CHULA BASIC METABOLIC [id number] 06:17:00 Test Item Value Reference Range Interpretation Comments SODIUM (BEAKER) 134 meq/L 136-145 L (test code = 381) POTASSIUM (BEAKER) 4.4 meq/L 3.5-5.1 (test code = 379) CHLORIDE (BEAKER) 98 meq/L 98-107 (test code = 382) CO2 (BEAKER) (test 23 meq/L 22-29 code = 355) BLOOD UREA NITROGEN 38 mg/dL 7-21 H (BEAKER) (test code = 354) CREATININE (BEAKER) 8.53 mg/dL 0.57-1.25 H (test code = 358) GLUCOSE RANDOM 146 mg/dL 70-105 H (BEAKER) (test code = 652) CALCIUM (BEAKER) 9.4 mg/dL 8.4-10.2 (test code = 697) EGFR (BEAKER) (test 6 mL/min/1.73 ESTIMAT ED GFR IS code = 1092) sq m NOT ACCURATE CREATININE CLEARANCE IN PREDICTING GLOMERULAR FILTRATION RATE . ESTIMATED GFR I S NOT APPLICABLE FOR DIALYSIS PATIEN TS. It Solutions Architect ID - [id number] 06:08:00 Test Item Value Reference Range Interpretation Comments PARTIAL THROMBOPLASTIN TIME 58.6 seconds 22.5-36.0 H (BEAKER) (test code = 760) CBC (HEMOGRAM ONLY)2019-10-25 05:44:00 Test Item Value Reference Range Interpretation Comments WHITE BLOOD CELL COUNT (BEAKER) 4.5 K/ L 3.5-10.5 (test code = 775) RED BLOOD CELL COUNT (BEAKER) 3.12 M/ L 4.63-6.08 L (test code = 761) HEMOGLOBIN (BEAKER) (test code = 9.7 GM/DL 13.7-17.5 L 410) HEMATOCRIT (BEAKER) (test code = 31.0 % 40.1-51.0 L 411) MEAN CORPUSCULAR VOLUME (BEAKER) 99.4 fL 79.0-92.2 H (test code = 753) MEAN CORPUSCULAR HEMOGLOBIN 31.1 pg 25.7-32.2 (BEAKER) (test code = 751) MEAN CORPUSCULAR HEMOGLOBIN CONC 31.3 GM/DL 32.3-36.5 L (BEAKER) (test code = 752) RED CELL DISTRIBUTION WIDTH 15.9 % 11.6-14.4 H (AKER) (test code = 412) PLATELET COUNT (AKER) (test 181 K/CU MM 150-450 code = 756) MEAN PLATELET VOLUME (AKER) 11.2 fL 9.4-12.4 (test code = 754) NUCLEATED RED BLOOD CELLS 0 /100 WBC 0-0 ([facility]) (test code = 413) [id number] 01:00:00 Test Item Value Reference Range Interpretation Comments PARTIAL THROMBOPLASTIN TIME 76.0 seconds 22.5-36.0 H ([facility]) (test code = 760) POCT-GLUCOSE [id number] 23:53:00 Test Item Value Reference Range Interpretation Comments POC-GLUCOSE METER 166 mg/dL 70-110 H : Notified RN/MD: ([facility]) (test code = TESTED AT [place] [address]) [facility], [address]: It Solutions Architect/Techni nuha ID = [id number] for KIAN KAUR POCT-GLUCOSE [id number] 19:04:00 Test Item Value Reference Range Interpretation Comments POC-GLUCOSE METER 191 mg/dL 70-110 H : TESTED A T [facility] 67 ([facility]) (test code = [facility], 1538) [address]: It Solutions Architect/Techni nuha ID = [id number] for ELÍAS BLOOM [id number] 18:02:00 Test Item Value Reference Range Interpretation Comments PARTIAL THROMBOPLASTIN TIME 62.3 seconds 22.5-36.0 H ([facility]) (test code = 760) Carotid doppler [id number] 17:36:00Ejection FractionSLEH ECHO HEARTLAB MKCKESSON CPACSRight Impression1. There is <50% diameter reduction (approximately 20% by 2-D measurement)in the internal carotid artery with a peak velocity of 109/34 cm/sec andheterogeneous plaque.2. There is no stenosis in the external carotid artery.3. There is non-occluding plaque in the common carotid artery.4. The vertebral artery flow is antegrade.5. The subclavian artery is within normal limits where visualized.Left Impression1. There is <50% diameter reduction (approximately 25% by 2-D measurement)in the internal carotid artery with a peak velocityof 118/26 cm/sec andheterogeneous plaque.2. There is no stenosis in the external carotid artery.3. There is non-occluding plaque in the common carotid artery.4. The vertebral artery flow is antegrade.5. The subclavian artery is within normal limits where visualized. Conclusions Summary Carotid duplex scanning and color flow imaging were performed bilaterally. The arteries were adequately visualized. The bilateral internal carotid arteries had <50% hemodynamically insignificant stenosis (approxi mately 20% by 2-D measurement on the right, approximately 25% by 2-D measurement on the left) with heterogeneous plaque. The vertebral artery flow was antegrade bilaterally. Signature Velocities are measured in cm/s ; Diameters are measured in cm Carotid Right Measurements+------- --------+----+----+-----+ + + +!Location !PSV !EDV !Angle!%Stenosis 2D!%Stenosis Doppler!Tortuosity !+ +----+----+-----+ + -----+ +!Prox CCA !103 !19.9!60 ! ! ! !+------ ---------+----+----+-----+ + + +!Dist CCA !88.5!19.9!60! ! ! !+ +----+----+-----+ + ------+ +!Prox ICA !109 !34.6!60 !20% !<50% ! !+-- +----+----+-----+ + + +!Dist ICA !88 !24.4!60 ! ! ! !+ +----+----+-----+ +------- + +!Prox ECA !146 !20.6!60 ! ! ! !+- +----+----+-----+ + + +!Verte bral !54.5!17 !60 ! ! ! !+ +----+----+-----+ +------ + +!Prox Subclavian!133 ! !60 ! ! ! !+ +----+----+-----+ + + + - There is antegrade vertebral flow noted on the right side. - Additional Measurements:ICAPSV/CCAPSV 1.23.ICAEDV/CCAEDV 1.74. Carotid Left Measurements+ +----+----+-----+ + +---- -------+!Location !PSV !EDV !Angle!%Stenosis 2D!%Stenosis Doppler!Tortuosity !+ +---- +----+-----+ + + +!Prox CCA !116 !24.4!60 ! ! ! !+ +----+----+-----+ + +------- ----+!Dist CCA !97.4!26.7!60 ! ! ! !+ +--- -+----+-----+ + + +!Prox ICA !118 !26.5!60 !25%!<50% ! !+ +----+----+-----+ + +--- --------+!Dist ICA !103 !28.5!60 ! ! ! !+ +----+----+-----+ + + +!Prox ECA !204 !22.3!60 ! ! ! !+ +----+----+-----+ + +-- ---------+!Vertebral !53.9!16.4!60 ! ! ! !+ -+----+----+-----+ + + +!Prox Subclavian!181 !39.3!60 ! ! ! !+ +----+----+-----+ + + + - There is antegrade vertebral flow noted on the left side. - Additional Measurements:ICAPSV/CCAPSV 1.21.ICAEDV/CCAEDV 1.17. Interface, External Ris In - 10/24/2019 5:36 PM C[facility] LAB -Carotid Duplex Study Demographics Patient Name CHI, Date of Study 10/24/2019 MARYAM MAGUIRE Age 69 Visit Number [id number] Gender Male Accession Number [id number] Dateof 1950 Referring Tavares Corea Room Number C630 Physician Cam Milling Machine Operator Janet Sewell Interpreting Cathy Bar RN, RVT Physician MD ProcedureType of Study: Cerebral: Carotid, CAROTID DOPPLER, BILATERAL. Indications for Study:Pre OP CABG.Patient Status:TODAY.Study Location:Vascular Lab.Technical Quality:Adequate visualization.Risk FactorsHistory of Disease+ +----+ +!Diagnosis !Date!Comments !+ +----+ +!Hi story/Risk! !Diabetes, CAD, Hypertension, ESRD with Left AVF !!Factors: ! !and CHF !+ +----+ -----+ImpressionsRight Impression1. There is <50% diameter reduction (approximately 20% by 2-D measurement)in the internal carotid artery with a peak velocity of 109/34 cm/sec andheterogeneous plaque.2. There is no stenosis in the external carotid artery.3. There is non-occluding plaque in the common carotid artery.4. The vertebral artery flow is antegrade.5. The subclavian artery is within normallimits where visualized.Left Impression1. There is <50% diameter reduction (approximately 25% by 2-D measurement)in the internal carotid artery with a peak velocity of 118/26 cm/sec andheterogeneousplaque.2. There is no stenosis in the external carotid artery.3. There is non-occluding plaque in the common carotid artery.4. The vertebral artery flow is antegrade.5. The subclavian artery is within normal limits [...] in cm/s ; Diameters are measured in cmCarotid Right Measurements+ +----+----+-----+ -+ + +!Location !PSV !EDV !Angle!%Stenosis 2D!%Stenosis Doppler!Tortuosity !+ +----+----+-----+ + + +!Pr ox CCA !103 !19.9!60 ! ! ! !+ +----+----+-----+ --+ + +!Dist CCA !88.5!19.9!60 ! ! ! !+ +----+----+-----+ + + +!Pr ox ICA !109 !34.6!60 !20% !<50% ! !+ +----+----+-----+------ ------+ + +!Dist ICA !88 !24.4!60 ! ! ! !+ +----+----+-----+ + + +!Pr ox ECA !146 !20.6!60 ! ! ! !+ +----+----+-----+----- -------+ + +!Vertebral !54.5!17 !60 ! !! !+ +----+----+-----+ + + +!Pr ox Subclavian!133 ! !60 ! ! ! !+ +----+----+-----+ + + + - There is antegrade vertebral flow noted on the right side. - Additional Measurements:ICAPSV/CCAPSV 1.23.ICAEDV/CCAEDV 1.74.Carotid Left Measurements+--------- ------+----+----+-----+ + + +!Location !PSV !EDV !Angle!%Stenosis 2D!%Stenosis Doppler!Tortuosity !+ +----+----+-----+ + ---+ +!Prox CCA !116 !24.4!60 ! ! ! !+-------- -------+----+----+-----+ + + +!Dist CCA !97.4!26.7!60 ! ! ! !+ +----+----+-----+ + ----+ +!Prox ICA !118 !26.5!60 !25% !<50% ! !+---- +----+----+-----+ + + +!Dist ICA !103 !28.5!60 ! ! ! !+ +----+----+-----+ +--------- --------+ +!Prox ECA !204 !22.3!60 ! ! ! !+--- +----+----+-----+ + + +!Vertebr al !53.9!16.4!60 ! ! ! !+ +----+----+-----+ +-------- ---------+ +!Prox Subclavian!181 !39.3!60 ! ! ! !+-- +----+----+-----+ + + + - There is antegrade vertebral flow noted on the left side. - Additional Measurements:ICAPSV/CCAPSV 1.21.ICAEDV/CCAEDV 1.17.[facility] Vein Mapping Legs [id number] 17:31:46Ejection FractionSLEH ECHO HEARTLAB MKCKESSON CPACSRight Impression1. There is no deep venous venous obstruction in the common femoral,profunda femoral, femoral, popliteal, posterior tibial or peronealveins.2. There is no superficial venous obstruction in the great saphenous vein.Left Impression1. There is no deep venous venous obstruction in the common femoral,profunda femoral, femoral, popliteal, p osterior tibial or peroneal veins.2. There is no superficial venous obstruction in the great saphenous vein. Conclusions Summary Venous duplex imaging and compression of the bilateral lower extremities was performed. The veins were adequately visualized. The bilateral venous systems were patent andcompressible with no evidence of thrombus. Superficial venous measurements are documented below. Signature Velocities are measured in cm/s ; Diameters are measured in cm LE Vein Mapping Superficial - Great Saphenous Vein Right Left + ----+ + + + + + + !Location ! !Diameter !Depth ! !Diameter !Depth ! + + +------- + + + + + !Sapheno Femoral [...] + + + + + !GSV Low Calf! !0.31 ! ! !0.32 ! ! + + +---- + + + + + !GSV Ankle ! !0.43 ! ! !0.33 ! ! + + + + + + + + Superficial - Lesser Saphenous Vein Right Left + --------+ + + + + + + !Location ! !Diameter !Depth ! !Diameter!Depth ! + + +--- + + + + + !SSV High [...] + + + + + + + Interface, External Ris In - 10/24/2019 5:31 PM [facility] LAB - Lower Extremities Vein Mapping Demographics Patient Name CHI, Date of Study 10/24/2019 MARYAM MAGUIRE Age 69 Visit Number [id number] Gender Male Accession Number [id number] Date of 1950 Referring Tavares Corea Room Number C630 Physician Cam Milling Machine Operator Janet Sewell Interpreting Cathy Bar, RN, RVT Physician ProcedureType of Study: Veins: Lower Extremity Vein Mapping, VEIN MAPPING, LOWER EXTREMITY, BILATERAL. Indications for Study:Pre OP CABG.Patient Status:TODAY.Study Location:Vascular Lab.Technical Quality:Adequate visualization.Risk FactorsHistory of Disease+ +----+ --+!Diagnosis !Date!Comments !+ +--- -+ +!History/Risk ! !Diabetes, CAD, Hypertension, ESRD with Left AVF !!Factors: ! !and CHF !+ +----+ +Imp ressionsRight Impression1. There is no deep venous venous obstruction in the common femoral,profunda femoral, femoral, popliteal, posterior tibial or peroneal veins.2. There is no superficial venous obstruction in the great saphenous vein.Left Impression1. There is no deep venous venous obstruction in the common femoral,profunda femoral, femoral, popliteal, posterior tibial or peroneal veins.2. There is no superficial venous obstruction in the great saphenous vein. Conclusions Summary Venous duplex imaging and compression of the bilateral lower extremities was performed. The veins were adequately visualized. The bilateral venous systems were patent and compressible with no evidence of thrombus. Superficial venous measurements are documented below. Signature Velocities are measured in cm/s ; Diameters are measured in cmLE Vein Mapping Superficial - Great Saphenous Vein Right Left + + + + + + + + !Location ! !Diameter !Depth ! !Diameter !Depth ! + + + + + +-------- + + !Sapheno Femoral Junction ! !0.7 [...] + + + + + + + +!GSV High Calf ! !0.23 ! ! !0.43 ! ! + + + + + + + + !GSV Mid Calf ! !0.22 ! ! !0.42 ! ! + + + + + + + + !GSV Low Calf ! !0.31 ! ! !0.32 ! ! + + + + + +----- + + !GSV Ankle ! !0.43 ! ! !0.33 ! ! + + + + + + + + Superficial - Lesser Saphenous Vein Right Left + + + + + + + + !Location ! !Diameter !Depth! !Diameter !Depth ! + + + + + +---- + + !SSV High Calf ! !0.36 [...] + + + + + + + +[facility] 12:39[facility]00 Test Item Value Reference Range Interpretation Comments PARTIAL THROMBOPLASTIN TIME 47.8 seconds 22.5-36.0 H ([facility]) (test code = 760) Prior to initiating heparinPOCT-GLUCOSE [id number] 11:03:00 Test Item Value Reference Range Interpretation Comments POC-GLUCOSE METER 143 mg/dL 70-110 H : TESTED A Karla [facility] 6720 (BEAKER) (test code = [place], 1538) [address]: It Solutions Architect/Techni nuha ID = [id number] for Vinny Domínguez BASIC METABOLIC [id number] 07:38:00 Test Item Value Reference Range Interpretation Comments SODIUM (BEAKER) 136 meq/L 136-145 (test code = 381) POTASSIUM (BEAKER) 5.3 meq/L 3.5-5.1 H Specimen slightly (test code = 379) hemolyzed CHLORIDE (BEAKER) 100 meq/L 98-107 (test code = 382) CO2 (BEAKER) (test 24 meq/L 22-29 code = 355) BLOOD UREA NITROGEN 60 mg/dL 7-21 H (BEAKER) (test code = 354) CREATININE (BEAKER) 10.94 mg/dL 0.57-1.25 H Specimen slightly (test code = 358) hemolyzed GLUCOSE RANDOM 104 mg/dL 70-105 (BEAKER) (test code = 652) CALCIUM (BEAKER) 9.2 mg/dL 8.4-10.2 (test code = 697) EGFR (BEAKER) (test 5 mL/min/1.73 ESTIMAT ED GFR IS code = 1092) sq m NOT ACCURATE CREATININE CLEARANCE IN PREDICTING GLOMERULAR FILTRATION RATE . ESTIMATED GFR I S NOT APPLICABLE FOR DIALYSIS PATIEN TS. It Solutions Architect ID - GALAPHepatitis B surface [id number] 07:11:00 Test Item Value Reference Range Interpretation Comments HBsAg Screen (test code = Nonreactive Nonreactive 5195-3) LIS (test code = LIS) It Solutions Architect ID - GALAP Lab Interpretation (test Normal code = 48665-2) [facility] [id number] 07:11:00 Test Item Value Reference Range Interpretation Comments HEPATITIS B SURFACE ANTIGEN (2) Nonreactive Nonreactive (BEAKER) (test code = 2585) It Solutions Architect ID - [id number] 06:42:00 Test Item Value Reference Range Interpretation Comments PARTIAL THROMBOPLASTIN TIME 46.7 seconds 22.5-36.0 H (BEAKER) (test code = 760) CBC (HEMOGRAM ONLY)2019-10-24 06:32:00 Test Item Value Reference Range Interpretation Comments WHITE BLOOD CELL COUNT (BEAKER) 6.3 K/ L 3.5-10.5 (test code = 775) RED BLOOD CELL COUNT (BEAKER) 3.04 M/ L 4.63-6.08 L (test code = 761) HEMOGLOBIN (BEAKER) (test code = 9.5 GM/DL 13.7-17.5 L 410) HEMATOCRIT (BEAKER) (test code = 29.5 % 40.1-51.0 L 411) MEAN CORPUSCULAR VOLUME (BEAKER) 97.0 fL 79.0-92.2 H (test code = 753) MEAN CORPUSCULAR HEMOGLOBIN 31.3 pg 25.7-32.2 (BEAKER) (test code = 751) MEAN CORPUSCULAR HEMOGLOBIN CONC 32.2 GM/DL 32.3-36.5 L (BEAKER) (test code = 752) RED CELL DISTRIBUTION WIDTH 16.0 % 11.6-14.4 H (BEAKER) (test code = 412) PLATELET COUNT (BEAKER) (test 156 K/CU MM 150-450 code = 756) MEAN PLATELET VOLUME (BEAKER) 11.8 fL 9.4-12.4 (test code = 754) NUCLEATED RED BLOOD CELLS 0 /100 WBC 0-0 (BEAKER) (test code = 413) POCT-GLUCOSE [id number] 21:49:00 Test Item Value Reference Range Interpretation Comments POC-GLUCOSE METER 136 mg/dL 70-110 H : Notified RN/: ([facility]) (test code = TESTED AT [place] [address]) [facility], [address]: It Solutions Architect/Techni nuha ID = [id number] for SA NCHEZ, KIAN POCT-GLUCOSE [id number] 19:27:00 Test Item Value Reference Range Interpretation Comments POC-GLUCOSE METER 114 mg/dL 70-110 H : Notified RN/: ([facility]) (test code = TESTED AT [place] [address]) [facility], [address]: It Solutions Architect/Techni nuha ID = [id number] for SA NCHEZ, KIAN [id number] 16:15:00 Test Item Value Reference Range Interpretation Comments ACTIVATED CLOTTING TIME 241 sec : 74 -137 seconds, ([facility]) (test code = Baseli ne: TESTED AT 441) [address] [place], [address]: It Solutions Architect/Techni nuha ID = [id number] for TALHA LUND [id number] 15:48:00 Test Item Value Reference Range Interpretation Comments ACTIVATED CLOTTING TIME 147 sec : 74 -137 seconds, ([facility]) (test code = Baselyohana ne: TESTED AT 441) [facility] [address] [facility], [address]: It Solutions Architect/Techni nuha ID = [id number] for TALHA LUND POCT-GLUCOSE [id number] 12:05:00 Test Item Value Reference Range Interpretation Comments POC-GLUCOSE METER 154 mg/dL 70-110 H : TESTED A T [facility] 6720 ([facility]) (test code = [facility], 1538) [address]: It Solutions Architect/Techni nuha ID = [id number] for Do adelinaguKatja gracelon POCT-GLUCOSE [id number] 07:41:00 Test Item Value Reference Range Interpretation Comments POC-GLUCOSE METER 144 mg/dL 70-110 H : TESTED A T [facility] 6720 ([facility]) (test code = [facility], 1538) [address]: It Solutions Architect/Techni nuha ID = [id number] for Do adelinaguKatja gracelon TROPONIN [id number] 07:06:00 Test Item Value Reference Range Interpretation Comments TROPONIN I ([facility]) (test code = 10.76 ng/mL 0.00-0.03 [facility]) Troponin I (TnI) levels must be interpreted [...] failure, acidosis, acute neurological disease, and persistent tachyarrhythmia.It Solutions Architect ID - GERRY [id number] 06:37:00 Test Item Value Reference Range Interpretation Comments PARTIAL THROMBOPLASTIN TIME 54.6 seconds 22.5-36.0 H ([facility]) (test code = 760) CBC (HEMOGRAM ONLY)2019-10-23 06:22:00 Test Item Value Reference Range Interpretation Comments WHITE BLOOD CELL COUNT ([facility]) 7.0 K/ L 3.5-10.5 (test code = 775) RED BLOOD CELL COUNT (BEAKER) 3.06 M/ L 4.63-6.08 L (test code = 761) HEMOGLOBIN (BEAKER) (test code = 9.7 GM/DL 13.7-17.5 L 410) HEMATOCRIT (BEAKER) (test code = 29.9 % 40.1-51.0 L 411) MEAN CORPUSCULAR VOLUME (BEAKER) 97.7 fL 79.0-92.2 H (test code = 753) MEAN CORPUSCULAR HEMOGLOBIN 31.7 pg 25.7-32.2 (BEAKER) (test code = 751) MEAN CORPUSCULAR HEMOGLOBIN CONC 32.4 GM/DL 32.3-36.5 (BEAKER) (test code = 752) RED CELL DISTRIBUTION WIDTH 16.0 % 11.6-14.4 H (BEAKER) (test code = 412) PLATELET COUNT (BEAKER) (test 156 K/CU MM 150-450 code = 756) MEAN PLATELET VOLUME (BEAKER) 11.1 fL 9.4-12.4 (test code = 754) NUCLEATED RED BLOOD CELLS 0 /100 WBC 0-0 (BEAKER) (test code = 413) TROPONIN [id number] 00:49:00 Test Item Value Reference Range Interpretation Comments TROPONIN I (BEAKER) (test code = 6.38 ng/mL 0.00-0.03 HH 397) Troponin I (TnI) levels must be interpreted [...] failure, acidosis, acute neurological disease, and persistent tachyarrhythmia.It Solutions Architect ID - [id number] 22:52:00 Test Item Value Reference Range Interpretation Comments PARTIAL THROMBOPLASTIN TIME 33.8 seconds 22.5-36.0 (BEAKER) (test code = 760) Prior to initiating heparinPLATELET [id number] 22:44:00 Test Item Value Reference Range Interpretation Comments PLATELET COUNT (BEAKER) (test 152 K/CU MM 150-450 code = 756) It Solutions Architect ID - 6000TROPONIN [id number] 20:56:00 Test Item Value Reference Range Interpretation Comments TROPONIN I (BEAKER) (test code = 5.06 ng/mL 0.00-0.03 397) Troponin I (TnI) levels must be interpreted [...] failure, acidosis, acute neurological disease, and persistent tachyarrhythmia.It Solutions Architect ID - MARICHUYOCT-GLUCOSE METER 2019-10-22 20:26:00 Test Item Value Reference Range Interpretation Comments POC-GLUCOSE METER 129 mg/dL 70-110 H : [facility] ([facility]ER[facility] (test code = [facility] [place] [facility], 1538) [address]: It Solutions Architect/Techni nuha ID = [id number] for MINAL YOUSIF TROPONIN [id number] 13:12:00 Test Item Value Reference Range Interpretation Comments TROPONIN I (BEAKER) (test code = 0.36 ng/mL 0.00-0.03 397) Troponin I (TnI) levels must be interpreted [...] failure, acidosis, acute neurological disease, and persistent tachyarrhythmia.It Solutions Architect ID - SALONI FB-type Natriuretic Factor (BNP)2019-10-22 13:06:00 Test Item Value Reference Range Interpretation Comments BNP (test code = 99319-3) 106 pg/mL 0-100 H LIS (test code = LIS) It Solutions Architect ID - SALONI F Lab Interpretation (test Abnormal code = 67237-2) [facility] (BNP)2019-10-22 13:06:00 Test Item Value Reference Range Interpretation Comments B-TYPE NATRIURETIC PEPTIDE (BEAKER) 106 pg/mL 0-100 H (test code = 700) It Solutions Architect ID [place] GU[place]PA FBASIC METABOLIC [id number] 13:05:00 Test Item Value Reference Range Interpretation Comments SODIUM (BEAKER) 138 meq/L 136-145 (test code = 381) POTASSIUM (BEAKER) 4.8 meq/L 3.5-5.1 (test code = 379) CHLORIDE (BEAKER) 100 meq/L 98-107 (test code = 382) CO2 (BEAKER) (test 26 meq/L 22-29 code = 355) BLOOD UREA NITROGEN 38 mg/dL 7-21 H (BEAKER) (test code = 354) CREATININE (BEAKER) 8.23 mg/dL 0.57-1.25 H (test code = 358) GLUCOSE RANDOM 259 mg/dL 70-105 H (BEAKER) (test code = 652) CALCIUM (BEAKER) 10.1 mg/dL 8.4-10.2 (test code = 697) EGFR (BEAKER) (test 7 mL/min/1.73 ESTIMAT ED GFR IS code = 1092) sq m NOT ACCURATE CREATININE CLEARANCE IN PREDICTING GLOMERULAR FILTRATION RATE . ESTIMATED GFR I S NOT APPLICABLE FOR DIALYSIS PATIEN TS. [employer] [place] [facility] epatic function [id number] 13:02:00 Test Item Value Reference Range Interpretation Comments Protein, Total (test code 7.0 6.0- 8.3 gm/dL = 2885-2) Albumin (test code = 4.4 g/dL 3.5-5 87448-9) Total Bilirubin (test code 0.8 mg/dL 0.2-1.2 = 1975-2) Bilirubin, Direct (test 0.2 mg/dL 0.1-0.5 code = 1968-7) Alkaline Phosphatase (test 212 U/L 40-150 H code = 6768-6) AST (test code = 1920-8) 19 U/L 5-34 ALT (test code = 1742-6) 28 U/L 6-55 LIS (test code = LIS) [employer] [facility] Interpretation (test Abnormal code = 95538-4) [facility] Test Item Value Reference Range Interpretation Comments Lipase (test code = 49 U/L 8-78 3040-3) LIS (test code = LIS) [employer] Architect ID - CAROLINA F Lab Interpretation (test Normal code = 64658-2) [facility]00 Test Item Value Reference Range Interpretation Comments MAGNESIUM (BEAKER) (test code = 2.8 mg/dL 1.6-2.6 H 627) [employer] Architect ID - SALONI FHEPATIC FUNCTION [id number] 13:02:00 Test Item Value Reference Range Interpretation Comments TOTAL PROTEIN (BEAKER) (test code = 7.0 gm/dL 6.0-8.3 770) ALBUMIN (BEAKER) (test code = 1145) 4.4 g/dL 3.5-5.0 BILIRUBIN TOTAL (BEAKER) (test code 0.8 mg/dL 0.2-1.2 = 377) BILIRUBIN DIRECT (BEAKER) (test 0.2 mg/dL 0.1-0.5 code = 706) ALKALINE PHOSPHATASE (BEAKER) (test 212 U/L 40-150 H code = 346) AST (SGOT) (BEAKER) (test code = 19 U/L 5-34 353) ALT (SGPT) (BEAKER) (test code = 28 U/L 6-55 347) [employer] ID - SALONI [id number] 13:02:00 Test Item Value Reference Range Interpretation Comments LIPASE (BEAKER) (test code = 749) 49 U/L 8-78 It Solutions Architect ID [place] GUALLPA FCBC W/PLT COUNT & AUTO [id number] 12:45:00 Test Item Value Reference Range Interpretation Comments WHITE BLOOD CELL COUNT (BEAKER) 5.4 K/ L 3.5-10.5 (test code = 775) RED BLOOD CELL COUNT (BEAKER) 3.39 M/ L 4.63-6.08 L (test code = 761) HEMOGLOBIN (BEAKER) (test code = 10.5 GM/DL 13.7-17.5 L 410) HEMATOCRIT (BEAKER) (test code = 33.3 % 40.1-51.0 L 411) MEAN CORPUSCULAR VOLUME (BEAKER) 98.2 fL 79.0-92.2 H (test code = 753) MEAN CORPUSCULAR HEMOGLOBIN 31.0 pg 25.7-32.2 (BEAKER) (test code = 751) MEAN CORPUSCULAR HEMOGLOBIN CONC 31.5 GM/DL 32.3-36.5 L (BEAKER) (test code = 752) RED CELL DISTRIBUTION WIDTH 16.2 % 11.6-14.4 H (BEAKER) (test code = 412) PLATELET COUNT (BEAKER) (test 170 K/CU MM 150-450 code = 756) MEAN PLATELET VOLUME (BEAKER) 11.0 fL 9.4-12.4 (test code = 754) NUCLEATED RED BLOOD CELLS 0 /100 WBC 0-0 (BEAKER) (test code = 413) NEUTROPHILS RELATIVE PERCENT 66 % (BEAKER) (test code = 429) LYMPHOCYTES RELATIVE PERCENT 22 % (BEAKER) (test code = 430) MONOCYTES RELATIVE PERCENT 7 % (BEAKER) (test code = 431) EOSINOPHILS RELATIVE PERCENT 2 % (BEAKER) (test code = 432) BASOPHILS RELATIVE PERCENT 1 % (BEAKER) (test code = 437) NEUTROPHILS ABSOLUTE COUNT 3.60 K/ L 1.78-5.38 (BEAKER) (test code = 670) LYMPHOCYTES ABSOLUTE COUNT 1.22 K/ L 1.32-3.57 L (BEAKER) (test code = 414) MONOCYTES ABSOLUTE COUNT (BEAKER) 0.40 K/ L 0.30-0.82 (test code = 415) EOSINOPHILS ABSOLUTE COUNT 0.13 K/ L 0.04-0.54 (BEAKER) (test code = 416) BASOPHILS ABSOLUTE COUNT (BEAKER) 0.04 K/ L 0.01-0.08 (test code = 417) IMMATURE GRANULOCYTES-RELATIVE 1 % 0-1 PERCENT (BEAKER) (test code = 2801) RAD, CHEST, 1 VIEW, NON [id number] 12:23:00Reason for exam:->CHEST PAIN FINAL REPORT Chest, one view History: chest pain Comparison: 04/30/2019 Findings:Clear lungs. Normal size heart. No pleural effusion or pneumothorax. Cardiac pacer in place. Impression:No acute findings in the chest Signed: Ivan Milan MDReport Verified Date/Time: 10/22/2019 12:23:16 Reading Location: [facility] Radiology Reading Room ECG/EKG Interpretation 2019-10-22 11:34:38Bernardino Doss MD 10/22/2019 5:58 PMECG/EKG InterpretationDate/Time: 10/22/2019 5:57 PMPerformed by: Bernardino Doss MDAuthorized by: Ritika Clarke MD The ECG was interpreted by TUSHAR palma. The ECG is interpreted as A-V block. Rate is normal rate. Abnormal conduction noted: bifascicular block.Clinical Impression: non-specific ECGCHI [facility]ast[facility] HospitalPOCT-GLUCOSE [id number] 11:51:00 Test Item Value Reference Range Interpretation Comments POC-GLUCOSE METER 279 mg/dL 70-110 H TESTED AT [facility] 6720 (BEAKER) (test code = ALPHONSO Caicedo [place] 1538) [address] CBC W/PLT COUNT & AUTO [id number] 11:50:00 Test Item Value Reference Range Interpretation Comments WHITE BLOOD CELL COUNT (BEAKER) 10.1 K/ L 3.5-10.5 (test code = 775) RED BLOOD CELL COUNT (BEAKER) 2.96 M/ L 4.63-6.08 L (test code = 761) HEMOGLOBIN (BEAKER) (test code = 9.3 GM/DL 13.7-17.5 L 410) HEMATOCRIT (BEAKER) (test code = 28.6 % 40.1-51.0 L 411) MEAN CORPUSCULAR VOLUME (BEAKER) 96.6 fL 79.0-92.2 H (test code = 753) MEAN CORPUSCULAR HEMOGLOBIN 31.4 pg 25.7-32.2 (BEAKER) (test code = 751) MEAN CORPUSCULAR HEMOGLOBIN CONC 32.5 GM/DL 32.3-36.5 (BEAKER) (test code = 752) RED CELL DISTRIBUTION WIDTH 15.3 % 11.6-14.4 H (BEAKER) (test code = 412) PLATELET COUNT (BEAKER) (test 130 K/CU MM 150-450 L code = 756) MEAN PLATELET VOLUME (BEAKER) 12.1 fL 9.4-12.4 (test code = 754) NUCLEATED RED BLOOD CELLS 0 /100 WBC 0-0 (BEAKER) (test code = 413) NEUTROPHILS RELATIVE PERCENT 80 % (BEAKER) (test code = 429) LYMPHOCYTES RELATIVE PERCENT 7 % (BEAKER) (test code = 430) MONOCYTES RELATIVE PERCENT 7 % (BEAKER) (test code = 431) EOSINOPHILS RELATIVE PERCENT 2 % (BEAKER) (test code = 432) BASOPHILS RELATIVE PERCENT 0 % (BEAKER) (test code = 437) NEUTROPHILS ABSOLUTE COUNT 8.06 K/ L 1.78-5.38 H (BEAKER) (test code = 670) LYMPHOCYTES ABSOLUTE COUNT 0.70 K/ L 1.32-3.57 L (BEAKER) (test code = 414) MONOCYTES ABSOLUTE COUNT (BEAKER) 0.75 K/ L 0.30-0.82 (test code = 415) EOSINOPHILS ABSOLUTE COUNT 0.15 K/ L 0.04-0.54 (BEAKER) (test code = 416) BASOPHILS ABSOLUTE COUNT (BEAKER) 0.02 K/ L 0.01-0.08 (test code = 417) IMMATURE GRANULOCYTES-RELATIVE 4 % 0-1 H PERCENT (BEAKER) (test code = 2801) BASIC METABOLIC [id number] 10:56:00 Test Item Value Reference Range Interpretation Comments SODIUM (BEAKER) 134 meq/L 136-145 L (test code = 381) POTASSIUM (BEAKER) 5.3 meq/L 3.5-5.1 H (test code = 379) CHLORIDE (BEAKER) 97 meq/L 98-107 L (test code = 382) CO2 (BEAKER) (test 22 meq/L 22-29 code = 355) BLOOD UREA NITROGEN 81 mg/dL 7-21 H (BEAKER) (test code = 354) CREATININE (BEAKER) 8.20 mg/dL 0.57-1.25 H (test code = 358) GLUCOSE RANDOM 365 mg/dL 70-105 H (BEAKER) (test code = 652) CALCIUM (BEAKER) 8.4 mg/dL 8.4-10.2 (test code = 697) EGFR (BEAKER) (test 7 mL/min/1.73 ESTIMAT ED GFR IS code = 1092) sq m NOT ACCURATE CREATININE CLEARANCE IN PREDICTING GLOMERULAR FILTRATION RATE . ESTIMATED GFR I S NOT APPLICABLE FOR DIALYSIS PATIEN TS. RAD, CHEST, 1 VIEW, NON [id number] 08:58:00Reason for exam:->Post device placementShould this be performed at the bedside?->YesFINAL REPORT RAD, CHEST, 1 VIEW, NON DEPT INDICATION: Post device placement CO MPARISON: Prior day's exam FINDINGS: Portable frontal view of the chest. IMPRESSION: Support Lines: Stable. Lungs and pleura: Unchanged airspace and pleural opacities. No pneumothorax.Heart and mediastinum: Stable contours. Stable surgical changes.Additional findings: None. Signed: Dasia Britt Verified Date/Time: 04/30/2019 08:58:17 Reading Location: [facility] Reading Room POCT-GLUCOSE [id number] 08:16:00 Test Item Value Reference Range Interpretation Comments POC-GLUCOSE METER 342 mg/dL 70-110 H TESTED AT [place] [address] ([facility]) (test code = [facility] Sascha [facility] 1538) [address] RAD, CHEST, 1 VIEW, NON [id number] 06:14:00Reason for exam:->post device placementShould this be performed at the bedside?->YesFINAL REPORT RAD, CHEST, 1 VIEW, NON DEPT INDICATION: post device placement CO MPARISON: Prior day's exam FINDINGS: Portable frontal view of the chest. IMPRESSION: Support Lines: Interval placement of a right chest wall pacer device with leads overlying right atrium. Lungs andpleura: Unchanged airspace and pleural opacities. No pneumothorax.Heart and mediastinum: Stable conto urs.Additional findings: Vascular stent over the left axilla. Signed: Sigrid Vieyra Verified Date/Time: 04/30/2019 06:14:19 Reading Location: [address] Reading Room POCT-GLUCOSE [id number] 01:09:00 Test Item Value Reference Range Interpretation Comments POC-GLUCOSE METER 187 mg/dL 70-110 H TESTED AT [place] [address] ([facility]) (test code = ALPHONSO Sascha [facility] 1538) [address] POCT-GLUCOSE [id number] 20:12:00 Test Item Value Reference Range Interpretation Comments POC-GLUCOSE METER 175 mg/dL 70-110 H TESTED AT [facility] 6720 [facility] (test code = ALPHONSO Caicedo [facility] 1538) [address] POCT-GLUCOSE [id number] 17:34:00 Test Item Value Reference Range Interpretation Comments POC-GLUCOSE METER 88 mg/dL 70-110 TESTED AT [place] [id number] ([facility]) (test code = ALPHONSO Caicedo [facility] [address] 1538) POCT-GLUCOSE [id number] 13:28:00 Test Item Value Reference Range Interpretation Comments POC-GLUCOSE METER 131 mg/dL 70-110 H TESTED AT [place] [address] ([facility]) (test code = ALPHONSO Caicedo [facility] 1538) [address] RHEUMATOID FACTOR AB, REFLEX TO [id number] 11:35:00 Test Item Value Reference Range Interpretation Comments RHEUMATOID FACTOR (BEAKER) (test Positive code = 573) RHEUMATOID FACTOR [id number] 11:35:00 Test Item Value Reference Range Interpretation Comments RHEUMATOID FACTOR TITER (BEAKER) (test :4 code = 2285) ANTI-NUCLEAR ANTIBODY (MARIAN)2019-04-29 10:25:00 Test Item Value Reference Range Interpretation Comments ANTI-NUCLEAR ANTIBODY (MARIAN) (BEAKER) Negative Negative (test code = 418) Test performed by IFA method.Test performed by IFA method.BASIC METABOLIC PANEL 2019-04-29 09:43:00 Test Item Value Reference Range Interpretation Comments SODIUM (BEAKER) 132 meq/L 136-145 L (test code = 381) POTASSIUM (BEAKER) 5.1 meq/L 3.5-5.1 (test code = 379) CHLORIDE (BEAKER) 95 meq/L 98-107 L (test code = 382) CO2 (BEAKER) (test 21 meq/L 22-29 L code = 355) BLOOD UREA NITROGEN 111 mg/dL 7-21 H (BEAKER) (test code = 354) CREATININE (BEAKER) 9.82 mg/dL 0.57-1.25 H (test code = 358) GLUCOSE RANDOM 163 mg/dL 70-105 H (BEAKER) (test code = 652) CALCIUM (BEAKER) 8.5 mg/dL 8.4-10.2 (test code = 697) EGFR (BEAKER) (test 5 mL/min/1.73 ESTIMAT ED GFR IS code = 1092) sq m NOT ACCURATE CREATININE CLEARANCE IN PREDICTING GLOMERULAR FILTRATION RATE . ESTIMATED GFR I S NOT APPLICABLE FOR DIALYSIS PATIEN TS. CBC W/PLT COUNT & AUTO [id number] 09:22:00 Test Item Value Reference Range Interpretation Comments WHITE BLOOD CELL COUNT (BEAKER) 12.1 K/ L 3.5-10.5 H (test code = 775) RED BLOOD CELL COUNT (BEAKER) 2.97 M/ L 4.63-6.08 L (test code = 761) HEMOGLOBIN (BEAKER) (test code = 9.2 GM/DL 13.7-17.5 L 410) HEMATOCRIT (BEAKER) (test code = 28.4 % 40.1-51.0 L 411) MEAN CORPUSCULAR VOLUME (BEAKER) 95.6 fL 79.0-92.2 H (test code = 753) MEAN CORPUSCULAR HEMOGLOBIN 31.0 pg 25.7-32.2 (BEAKER) (test code = 751) MEAN CORPUSCULAR HEMOGLOBIN CONC 32.4 GM/DL 32.3-36.5 (BEAKER) (test code = 752) RED CELL DISTRIBUTION WIDTH 14.6 % 11.6-14.4 H (BEAKER) (test code = 412) PLATELET COUNT (BEAKER) (test 168 K/CU MM 150-450 code = 756) MEAN PLATELET VOLUME (BEAKER) 12.1 fL 9.4-12.4 (test code = 754) NUCLEATED RED BLOOD CELLS 0 /100 WBC 0-0 (BEAKER) (test code = 413) NEUTROPHILS RELATIVE PERCENT 77 % (BEAKER) (test code = 429) LYMPHOCYTES RELATIVE PERCENT 10 % (BEAKER) (test code = 430) MONOCYTES RELATIVE PERCENT 6 % (BEAKER) (test code = 431) EOSINOPHILS RELATIVE PERCENT 1 % (BEAKER) (test code = 432) BASOPHILS RELATIVE PERCENT 0 % (BEAKER) (test code = 437) NEUTROPHILS ABSOLUTE COUNT 9.33 K/ L 1.78-5.38 H (BEAKER) (test code = 670) LYMPHOCYTES ABSOLUTE COUNT 1.25 K/ L 1.32-3.57 L (BEAKER) (test code = 414) MONOCYTES ABSOLUTE COUNT (BEAKER) 0.76 K/ L 0.30-0.82 (test code = 415) EOSINOPHILS ABSOLUTE COUNT 0.14 K/ L 0.04-0.54 ([facility]) (test code = 416) BASOPHILS ABSOLUTE COUNT ([facility]) 0.02 K/ L 0.01-0.08 (test code = 417) IMMATURE GRANULOCYTES-RELATIVE 5 % 0-1 H PERCENT ([facility]) (test code = 2801) PROTHROMBIN TIME/[id number] 09:20:00 Test Item Value Reference Range Interpretation Comments PROTIME ([facility]) (test code = 14.9 seconds 11.9-14.2 H 759) INR ([facility]) (test code = 370) 1.2 <=5.9 Effective 01/30/2019: PT Reference Range ChangeNew: 11.9-14.2 Previous: 11.7- 14.7RECOMMENDED COUMADIN/WARFARIN INR THERAPY RANGESSTANDARD DOSE: 2.0-3.0 Includes: PROPHYLAXIS for venous thrombosis, systemic embolization; TREATMENT for venous thrombosis and/or pulmonary embolus.HIGH RISK: Target INR is2.5-3.5 for patients wiht mechanical heart valves.Within 24 hours, if on CoumadinPOCT- GLUCOSE [id number] 07:57:00 Test Item Value Reference Range Interpretation Comments POC-GLUCOSE METER 183 mg/dL 70-110 H TESTED AT [place] [address] ([facility]) (test code = [place] [address]68[address]) [address] POCT-GLUCOSE [id number] 21:30:00 Test Item Value Reference Range Interpretation Comments POC-GLUCOSE METER 326 mg/dL 70-110 H Will Repea t Test/TESTED ([facility]) (test code = AT [place] [address]268) [facility] 7[address] 0 POCT-GLUCOSE [id number] 17:47:00 Test Item Value Reference Range Interpretation Comments POC-GLUCOSE METER 332 mg/dL 70-110 H TESTED AT [place] [address] ([facility]) (test code = [place] [address]68[address]) [address] POCT-GLUCOSE [id number] 11:54:00 Test Item Value Reference Range Interpretation Comments POC-GLUCOSE METER 171 mg/dL 70-110 H TESTED AT [place] [address] ([facility]) (test code = [place] [address]68[address]) [address] POCT-GLUCOSE [id number] 08:21:00 Test Item Value Reference Range Interpretation Comments POC-GLUCOSE METER 171 mg/dL 70-110 H TESTED AT [facility] 6720 (BEAKER) (test code = [place]PH[place] 1538) [address] CBC W/PLT COUNT & AUTO [id number] 07:27:00 Test Item Value Reference Range Interpretation Comments WHITE BLOOD CELL COUNT (BEAKER) 13.7 K/ L 3.5-10.5 H (test code = 775) RED BLOOD CELL COUNT (BEAKER) 2.93 M/ L 4.63-6.08 L (test code = 761) HEMOGLOBIN (BEAKER) (test code = 9.3 GM/DL 13.7-17.5 L 410) HEMATOCRIT (BEAKER) (test code = 28.0 % 40.1-51.0 L 411) MEAN CORPUSCULAR VOLUME (BEAKER) 95.6 fL 79.0-92.2 H (test code = 753) MEAN CORPUSCULAR HEMOGLOBIN 31.7 pg 25.7-32.2 (BEAKER) (test code = 751) MEAN CORPUSCULAR HEMOGLOBIN CONC 33.2 GM/DL 32.3-36.5 (BEAKER) (test code = 752) RED CELL DISTRIBUTION WIDTH 14.6 % 11.6-14.4 H (BEAKER) (test code = 412) PLATELET COUNT (BEAKER) (test 167 K/CU MM 150-450 code = 756) MEAN PLATELET VOLUME (BEAKER) 12.3 fL 9.4-12.4 (test code = 754) NUCLEATED RED BLOOD CELLS 0 /100 WBC 0-0 (BEAKER) (test code = 413) (CELLAVISION MANUAL DIFF)2019-04-28 07:27:00 Test Item Value Reference Range Interpretation Comments NEUTROPHILS - REL 88 % (CELLAVISION)(BEAKER) (test code = 2816) LYMPHOCYTES - REL 7 % (CELLAVISION)(BEAKER) (test code = 2817) MONOCYTES - REL 5 % (CELLAVISION)(BEAKER) (test code = 2818) NEUTROPHILS - ABS 12.06 K/ul 1.78-5.38 H (CELLAVISION)(BEAKER) (test code = 2830) LYMPHOCYTES - ABS 0.96 K/ul 1.32-3.57 L (CELLAVISION)(BEAKER) (test code = 2831) MONOCYTES - ABS 0.69 K/uL 0.30-0.82 (CELLAVISION)(BEAKER) (test code = 2832) TOTAL COUNTED (BEAKER) (test code 100 = 1351) WBC MORPHOLOGY (BEAKER) (test code Normal = 487) LARGE PLT(BEAKER) (test code = Present 2156) POLYCHROMATOPHILLIC RBCS(BEAKER) 1+ few (test code = 478) HYPOCHROMIA (BEAKER) (test code = 1+ few 963) ARTIFACT (CELLAVISION)(BEAKER) Present (test code = 3432) PLATELET CONCENTRATION Adequate (CELLAVISION)(BEAKER) (test code = 3438) Received comment: User comments: Slide comments:BASIC METABOLIC [id number] 05:54:00 Test Item Value Reference Range Interpretation Comments SODIUM (BEAKER) 132 meq/L 136-145 L (test code = 381) POTASSIUM (BEAKER) 4.9 meq/L 3.5-5.1 (test code = 379) CHLORIDE (BEAKER) 96 meq/L 98-107 L (test code = 382) CO2 (BEAKER) (test 22 meq/L 22-29 code = 355) BLOOD UREA NITROGEN 92 mg/dL 7-21 H (BEAKER) (test code = 354) CREATININE (BEAKER) 7.77 mg/dL 0.57-1.25 H (test code = 358) GLUCOSE RANDOM 150 mg/dL 70-105 H (BEAKER) (test code = 652) CALCIUM (BEAKER) 8.7 mg/dL 8.4-10.2 (test code = 697) EGFR (BEAKER) (test 7 mL/min/1.73 ESTIMAT ED GFR IS code = 1092) sq m NOT ACCURATE CREATININE CLEARANCE IN PREDICTING GLOMERULAR FILTRATION RATE . ESTIMATED GFR I S NOT APPLICABLE FOR DIALYSIS PATIEN TS. POCT-GLUCOSE [id number] 21:28:00 Test Item Value Reference Range Interpretation Comments POC-GLUCOSE METER 296 mg/dL 70-110 H TESTED AT [facility] 6720 (BEAKER) (test code = ALPHONSO [place] 1538) [address] POCT-GLUCOSE [id number] 17:32:00 Test Item Value Reference Range Interpretation Comments POC-GLUCOSE METER 330 mg/dL 70-110 H TESTED AT [facility] 6720 (BEAKER) (test code = [place] 1538) [address] CBC W/PLT COUNT & AUTO [id number] 16:02:00 Test Item Value Reference Range Interpretation Comments WHITE BLOOD CELL COUNT (BEAKER) 12.5 K/ L 3.5-10.5 H (test code = 775) RED BLOOD CELL COUNT (BEAKER) 2.91 M/ L 4.63-6.08 L (test code = 761) HEMOGLOBIN (BEAKER) (test code = 9.2 GM/DL 13.7-17.5 L 410) HEMATOCRIT (BEAKER) (test code = 28.4 % 40.1-51.0 L 411) MEAN CORPUSCULAR VOLUME (BEAKER) 97.6 fL 79.0-92.2 H (test code = 753) MEAN CORPUSCULAR HEMOGLOBIN 31.6 pg 25.7-32.2 (BEAKER) (test code = 751) MEAN CORPUSCULAR HEMOGLOBIN CONC 32.4 GM/DL 32.3-36.5 (BEAKER) (test code = 752) RED CELL DISTRIBUTION WIDTH 14.5 % 11.6-14.4 H (BEAKER) (test code = 412) PLATELET COUNT (BEAKER) (test 162 K/CU MM 150-450 code = 756) MEAN PLATELET VOLUME (BEAKER) 12.5 fL 9.4-12.4 H (test code = 754) NUCLEATED RED BLOOD CELLS 0 /100 WBC 0-0 (BEAKER) (test code = 413) (CELLAVISION MANUAL DIFF)2019-04-27 16:02:00 Test Item Value Reference Range Interpretation Comments NEUTROPHILS - REL 87 % (CELLAVISION)(BEAKER) (test code = 2816) LYMPHOCYTES - REL 7 % (CELLAVISION)(BEAKER) (test code = 2817) MONOCYTES - REL 6 % (CELLAVISION)(BEAKER) (test code = 2818) NEUTROPHILS - ABS 10.88 K/ul 1.78-5.38 H (CELLAVISION)(BEAKER) (test code = 2830) LYMPHOCYTES - ABS 0.88 K/ul 1.32-3.57 L (CELLAVISION)(BEAKER) (test code = 2831) MONOCYTES - ABS 0.75 K/uL 0.30-0.82 (CELLAVISION)(BEAKER) (test code = 2832) TOTAL COUNTED (BEAKER) (test code 100 = 1351) WBC MORPHOLOGY (BEAKER) (test Normal code = 487) GIANT PLATELETS (BEAKER) (test Present code = 313) POLYCHROMATOPHILLIC RBCS(BEAKER) 1+ few (test code = 478) HYPOCHROMIA (BEAKER) (test code = 1+ few 963) ANISOCYTOSIS (BEAKER) (test code 1+ few = 961) MACROCYTES (BEAKER) (test code = 1+ few 964) POIKILOCYTES (BEAKER) (test code 2+ moderate = 966) OVALOCYTES (BEAKER) (test code = 2+ moderate 477) TEAR DROP CELLS (BEAKER) (test 1+ few code = 481) TONI CELLS (BEAKER) (test code = 2+ moderate 474) ARTIFACT (CELLAVISION)(BEAKER) Present (test code = 3432) PLATELET CONCENTRATION Adequate (CELLAVISION)(BEAKER) (test code = 3438) Received comment: User comments: Slide comments:POCT-GLUCOSE [id number] 11:35:00 Test Item Value Reference Range Interpretation Comments POC-GLUCOSE METER 248 mg/dL 70-110 H TESTED AT [facility] 6720 (BEAKER) (test code = [place] 1538) [address] T4, [id number] 08:58:00 Test Item Value Reference Range Interpretation Comments FREE T4 (BEAKER) (test code = 655) 1.29 ng/dL 0.70-1.48 HEMOGLOBIN [id number] 08:50:00 Test Item Value Reference Range Interpretation Comments HEMOGLOBIN A1C (BEAKER) (test code = 7.4 % 4.3-6.1 H 368) LIPID [id number] 08:07:00 Test Item Value Reference Range Interpretation Comments TRIGLYCERIDES (BEAKER) (test code = 115 mg/dL 540) CHOLESTEROL (BEAKER) (test code = 114 mg/dL 631) HDL CHOLESTEROL (BEAKER) (test code 56 mg/dL = 976) LDL CHOLESTEROL CALCULATED (BEAKER) 35 mg/dL (test code = 633) Triglyceride Reference Range: Low Risk <150 Borderline 150-199 High Risk 200-499 Very High Risk >=500Cholesterol Reference Range: Low Risk <200 Borderline 200-239 High Risk >240HDL Cholesterol Reference Range: Low Risk >=60 High Risk <40LDL Cholesterol Reference Range: Optimal <100 Near Optimal 100-129 Borderline 130-159 High 160-189 Very High >=190[facility] METABOLIC [id number] 08:07:00 Test Item Value Reference Range Interpretation Comments SODIUM (BEAKER) 131 meq/L 136-145 L (test code = 381) POTASSIUM (BEAKER) 4.9 meq/L 3.5-5.1 (test code = 379) CHLORIDE (BEAKER) 96 meq/L 98-107 L (test code = 382) CO2 (BEAKER) (test 24 meq/L 22-29 code = 355) BLOOD UREA NITROGEN 56 mg/dL 7-21 H (BEAKER) (test code = 354) CREATININE (BEAKER) 6.09 mg/dL 0.57-1.25 H (test code = 358) GLUCOSE RANDOM 282 mg/dL 70-105 H (BEAKER) (test code = 652) CALCIUM (BEAKER) 8.6 mg/dL 8.4-10.2 (test code = 697) EGFR (BEAKER) (test 9 mL/min/1.73 ESTIMAT ED GFR IS code = 1092) sq m NOT ACCURATE CREATININE CLEARANCE IN PREDICTING GLOMERULAR FILTRATION RATE . ESTIMATED GFR I S NOT APPLICABLE FOR DIALYSIS PATIEN TS. TSH/FREE T4 IF [id number] 08:04:00 Test Item Value Reference Range Interpretation Comments THYROID STIMULATING HORMONE 0.06 uIU/mL 0.35-4.94 L (BEAKER) (test code = 772) POCT-GLUCOSE [id number] 07:38:00 Test Item Value Reference Range Interpretation Comments POC-GLUCOSE METER 316 mg/dL 70-110 H TESTED AT [facility] [address] ([facility]) (test code = ALPHONSO PANDYA [place] 1538) [id number] POCT-GLUCOSE [id number] 21:22:00 Test Item Value Reference Range Interpretation Comments POC-GLUCOSE METER 194 mg/dL 70-110 H TESTED AT [facility] [address] (BEAKER) (test code = ALPHONSO KILPATRICK 1538) [id number] CBC W/PLT COUNT & AUTO [id number] 19:30:00 Test Item Value Reference Range Interpretation Comments WHITE BLOOD CELL COUNT (BEAKER) 16.9 K/ L 3.5-10.5 H (test code = 775) RED BLOOD CELL COUNT (BEAKER) 3.08 M/ L 4.63-6.08 L (test code = 761) HEMOGLOBIN (BEAKER) (test code = 9.8 GM/DL 13.7-17.5 L 410) HEMATOCRIT (BEAKER) (test code = 29.5 % 40.1-51.0 L 411) MEAN CORPUSCULAR VOLUME (BEAKER) 95.8 fL 79.0-92.2 H (test code = 753) MEAN CORPUSCULAR HEMOGLOBIN 31.8 pg 25.7-32.2 (BEAKER) (test code = 751) MEAN CORPUSCULAR HEMOGLOBIN CONC 33.2 GM/DL 32.3-36.5 (BEAKER) (test code = 752) RED CELL DISTRIBUTION WIDTH 14.5 % 11.6-14.4 H (BEAKER) (test code = 412) PLATELET COUNT (BEAKER) (test 187 K/CU MM 150-450 code = 756) MEAN PLATELET VOLUME (BEAKER) 11.7 fL 9.4-12.4 (test code = 754) NUCLEATED RED BLOOD CELLS 0 /100 WBC 0-0 (BEAKER) (test code = 413) (CELLAVISION MANUAL DIFF)2019-04-26 19:30:00 Test Item Value Reference Range Interpretation Comments NEUTROPHILS - REL 83 % (CELLAVISION)(BEAKER) (test code = 2816) LYMPHOCYTES - REL 6 % (CELLAVISION)(BEAKER) (test code = 2817) MONOCYTES - REL 4 % (CELLAVISION)(BEAKER) (test code = 2818) METAMYELOCYTES - REL 5 % 0-0 H (CELLAVISION)(BEAKER) (test code = 2821) MYELOCYTES - REL 1 % 0-0 H (CELLAVISION)(BEAKER) (test code = 2822) BANDS - REL (CELLAVISION)(BEAKER) 1 % 0-10 (test code = 2826) NEUTROPHILS - ABS 14.03 K/ul 1.78-5.38 H (CELLAVISION)(BEAKER) (test code = 2830) LYMPHOCYTES - ABS 1.01 K/ul 1.32-3.57 L (CELLAVISION)(BEAKER) (test code = 2831) MONOCYTES - ABS 0.68 K/uL 0.30-0.82 (CELLAVISION)(BEAKER) (test code = 2832) METAMYELOCYTES - ABS 0.85 K/uL 0.00-0.00 H (CELLAVISION)(BEAKER) (test code = 2836) MYELOCYTES-ABS 0.17 K/uL 0.00-0.00 H (CELLAVISION)(BEAKER) (test code = 2837) BANDS - ABS (CELLAVISION)(BEAKER) 0.17 K/uL 0.00-0.80 (test code = 2840) TOTAL COUNTED (BEAKER) (test code 100 = 1351) RBC MORPHOLOGY (BEAKER) (test code Normal = 762) WBC MORPHOLOGY (BEAKER) (test code Normal = 487) PLT MORPHOLOGY (BEAKER) (test code Normal = 486) ARTIFACT (CELLAVISION)(BEAKER) Present (test code = 3432) PLATELET CONCENTRATION Adequate (CELLAVISION)(BEAKER) (test code = 3438) Received comment: User comments: Slide comments:B-TYPE NATRIURETIC FACTOR (BNP) 2019-04-26 19:20:00 Test Item Value Reference Range Interpretation Comments B-TYPE NATRIURETIC PEPTIDE (BEAKER) 144 pg/mL 0-100 H (test code = 700) TROPONIN [id number] 19:20:00 Test Item Value Reference Range Interpretation Comments TROPONIN I (BEAKER) (test code = 0.05 ng/mL 0.00-0.03 H 397) Troponin I (TnI) levels must be interpreted [...] failure, acidosis, acute neurological disease, and persistent tachyarrhythmia.[id number] 19:17:00 Test Item Value Reference Range Interpretation Comments PROTIME (BEAKER) (test code = 13.9 seconds 11.9-14.2 759) INR (BEAKER) (test code = 370) 1.1 <=5.9 PARTIAL THROMBOPLASTIN TIME 25.8 seconds 22.5-36.0 (BEAKER) (test code = 760) Effective 01/30/2019: PT Reference Range ChangeNew: 11.9-14.2 Previous: 11.7- 14.7RECOMMENDED COUMADIN/WARFARIN INR THERAPY RANGESSTANDARD DOSE: 2.0-3.0 Includes: PROPHYLAXIS for venous thrombosis, systemic embolization; TREATMENT for venous thrombosis and/or pulmonary embolus.HIGH RISK: Target INR is2.5-3.5 for patients wiht mechanical heart valves.BASIC METABOLIC [id number] 19:14:00 Test Item Value Reference Range Interpretation Comments SODIUM (BEAKER) 134 meq/L 136-145 L (test code = 381) POTASSIUM (BEAKER) 4.7 meq/L 3.5-5.1 (test code = 379) CHLORIDE (BEAKER) 96 meq/L 98-107 L (test code = 382) CO2 (BEAKER) (test 29 meq/L 22-29 code = 355) BLOOD UREA NITROGEN 39 mg/dL 7-21 H (BEAKER) (test code = 354) CREATININE (BEAKER) 4.65 mg/dL 0.57-1.25 H (test code = 358) GLUCOSE RANDOM 129 mg/dL 70-105 H (BEAKER) (test code = 652) CALCIUM (BEAKER) 8.9 mg/dL 8.4-10.2 (test code = 697) EGFR (BEAKER) (test 13 mL/min/1.73 ESTIMA ERUM GFR IS code = 1092) sq m NOT ACCURATE CREATININE CLEARANCE IN PREDICTING GLOMERULAR FILTRATION RATE . ESTIMATED GFR I S NOT APPLICABLE FOR DIALYSIS PATIEN TS. [id number] 19:13:00 Test Item Value Reference Range Interpretation Comments MAGNESIUM (BEAKER) (test code = 2.4 mg/dL 1.6-2.6 627) RAD, CHEST, 1 VIEW, NON [id number] 17:54:00Reason for exam:->ABNORMAL ECG FINAL REPORT Chest, one view. HISTORY: ABNORMAL ECG COMPARISON: Radiograph from 04/14/2019 IMPRESSION: The left pleural effusion has increased and is now likely moderate volume.Mild left basilar subsegmental atelectasis. The cardiac silhouette is obscured. A stent overlies theleft axillary vasculature. A device overlies the midline chest. No pneumothorax. No acute bony abnormality. Signed: Karon Reynoso MDReport Verified Date/Time: 04/26/2019 17:54:42 Reading Location: [address] Consult Reading Room C-REACTIVE [id number] 17:19:00 Test Item Value Reference Range Interpretation Comments C-REACTIVE PROTEIN (BEAKER) (test 0.22 mg/dL 0.00-0.50 code = 676) POCT-GLUCOSE [id number] 15:56:00 Test Item Value Reference Range Interpretation Comments POC-GLUCOSE METER 283 mg/dL 70-110 H TESTED AT [place] [address] ([facility]) (test code = [facility]iced[facility] 1538) [id number] POCT-GLUCOSE [id number] 11:40:00 Test Item Value Reference Range Interpretation Comments POC-GLUCOSE METER 319 mg/dL 70-110 H TESTED AT [place] [address] ([facility]) (test code = [facility] 1538) [address] CBC W/PLT COUNT & AUTO [id number] 09:52:00 Test Item Value Reference Range Interpretation Comments WHITE BLOOD CELL COUNT (BEAKER) 10.9 K/ L 3.5-10.5 H (test code = 775) RED BLOOD CELL COUNT (BEAKER) 2.73 M/ L 4.63-6.08 L (test code = 761) HEMOGLOBIN (BEAKER) (test code = 8.6 GM/DL 13.7-17.5 L 410) HEMATOCRIT (BEAKER) (test code = 26.5 % 40.1-51.0 L 411) MEAN CORPUSCULAR VOLUME (BEAKER) 97.1 fL 79.0-92.2 H (test code = 753) MEAN CORPUSCULAR HEMOGLOBIN 31.5 pg 25.7-32.2 (BEAKER) (test code = 751) MEAN CORPUSCULAR HEMOGLOBIN CONC 32.5 GM/DL 32.3-36.5 (BEAKER) (test code = 752) RED CELL DISTRIBUTION WIDTH 15.1 % 11.6-14.4 H (BEAKER) (test code = 412) PLATELET COUNT (BEAKER) (test 205 K/CU MM 150-450 code = 756) MEAN PLATELET VOLUME (BEAKER) 11.7 fL 9.4-12.4 (test code = 754) NUCLEATED RED BLOOD CELLS 0 /100 WBC 0-0 (BEAKER) (test code = 413) NEUTROPHILS RELATIVE PERCENT 87 % (BEAKER) (test code = 429) LYMPHOCYTES RELATIVE PERCENT 8 % (BEAKER) (test code = 430) MONOCYTES RELATIVE PERCENT 3 % (BEAKER) (test code = 431) EOSINOPHILS RELATIVE PERCENT 0 % (BEAKER) (test code = 432) BASOPHILS RELATIVE PERCENT 0 % (BEAKER) (test code = 437) NEUTROPHILS ABSOLUTE COUNT 9.40 K/ L 1.78-5.38 H (BEAKER) (test code = 670) LYMPHOCYTES ABSOLUTE COUNT 0.83 K/ L 1.32-3.57 L (BEAKER) (test code = 414) MONOCYTES ABSOLUTE COUNT (BEAKER) 0.36 K/ L 0.30-0.82 (test code = 415) EOSINOPHILS ABSOLUTE COUNT 0.00 K/ L 0.04-0.54 L (BEAKER) (test code = 416) BASOPHILS ABSOLUTE COUNT (BEAKER) 0.01 K/ L 0.01-0.08 (test code = 417) IMMATURE GRANULOCYTES-RELATIVE 2 % 0-1 H PERCENT (BEAKER) (test code = 2801) BASIC METABOLIC [id number] 08:06:00 Test Item Value Reference Range Interpretation Comments SODIUM (BEAKER) 136 meq/L 136-145 (test code = 381) POTASSIUM (BEAKER) 6.3 meq/L 3.5-5.1 HH Specimen slightly (test code = 379) hemolyzed CHLORIDE (BEAKER) 101 meq/L 98-107 (test code = 382) CO2 (BEAKER) (test 24 meq/L 22-29 code = 355) BLOOD UREA NITROGEN 43 mg/dL 7-21 H (BEAKER) (test code = 354) CREATININE (BEAKER) 5.78 mg/dL 0.57-1.25 H Specimen slightly (test code = 358) hemolyzed GLUCOSE RANDOM 329 mg/dL 70-105 H (BEAKER) (test code = 652) CALCIUM (BEAKER) 10.0 mg/dL 8.4-10.2 (test code = 697) EGFR (BEAKER) (test 10 mL/min/1.73 ESTIMA ERUM GFR IS code = 1092) sq m NOT ACCURATE CREATININE CLEARANCE IN PREDICTING GLOMERULAR FILTRATION RATE . ESTIMATED GFR I S NOT APPLICABLE FOR DIALYSIS PATIEN TS. [id number] 07:34:00 Test Item Value Reference Range Interpretation Comments PHOSPHORUS (BEAKER) 5.3 mg/dL 2.3-4.7 H Specimen slightly (test code = 604) hemolyzed POCT-GLUCOSE [id number] 07:18:00 Test Item Value Reference Range Interpretation Comments POC-GLUCOSE METER 364 mg/dL 70-110 H Notified R Jitendra MD/TESTED ([facility]) (test code = AT [place] [address]) [facility] [address] HEPATITIS B SURFACE [id number] 22:01:00 Test Item Value Reference Range Interpretation Comments HEPATITIS B SURFACE ANTIGEN (2) Nonreactive Nonreactive ([facility] (test code = 2585) POCT-GLUCOSE [id number] 21:39:00 Test Item Value Reference Range Interpretation Comments POC-GLUCOSE METER 334 mg/dL 70-110 H Notified R Jitendra FARR/TESTED ([facility]) (test code = AT [place] [address]) [facility] 7[address] POCT-GLUCOSE [id number] 18:23:00 Test Item Value Reference Range Interpretation Comments POC-GLUCOSE METER 299 mg/dL 70-110 H TESTED AT [place] [address] ([facility]) (test code = [facility]SO Caicedo [place] [address]) [address] BASIC METABOLIC [id number] 16:58:00 Test Item Value Reference Range Interpretation Comments SODIUM (BEAKER) 139 meq/L 136-145 (test code = 381) POTASSIUM (BEAKER) 4.8 meq/L 3.5-5.1 (test code = 379) CHLORIDE (BEAKER) 102 meq/L 98-107 (test code = 382) CO2 (BEAKER) (test 28 meq/L 22-29 code = 355) BLOOD UREA NITROGEN 32 mg/dL 7-21 H (BEAKER) (test code = 354) CREATININE (BEAKER) 4.62 mg/dL 0.57-1.25 H (test code = 358) GLUCOSE RANDOM 277 mg/dL 70-105 H (BEAKER) (test code = 652) CALCIUM (BEAKER) 10.0 mg/dL 8.4-10.2 (test code = 697) EGFR (BEAKER) (test 13 mL/min/1.73 ESTIMA ERUM GFR IS code = 1092) sq m NOT ACCURATE CREATININE CLEARANCE IN PREDICTING GLOMERULAR FILTRATION RATE . ESTIMATED GFR I S NOT APPLICABLE FOR DIALYSIS PATIEN TS. CBC W/PLT COUNT & AUTO [id number] 16:41:00 Test Item Value Reference Range Interpretation Comments WHITE BLOOD CELL COUNT (BEAKER) 15.2 K/ L 3.5-10.5 H (test code = 775) RED BLOOD CELL COUNT (BEAKER) 2.86 M/ L 4.63-6.08 L (test code = 761) HEMOGLOBIN (BEAKER) (test code = 8.9 GM/DL 13.7-17.5 L 410) HEMATOCRIT (BEAKER) (test code = 27.1 % 40.1-51.0 L 411) MEAN CORPUSCULAR VOLUME (BEAKER) 94.8 fL 79.0-92.2 H (test code = 753) MEAN CORPUSCULAR HEMOGLOBIN 31.1 pg 25.7-32.2 (BEAKER) (test code = 751) MEAN CORPUSCULAR HEMOGLOBIN CONC 32.8 GM/DL 32.3-36.5 (BEAKER) (test code = 752) RED CELL DISTRIBUTION WIDTH 15.3 % 11.6-14.4 H (BEAKER) (test code = 412) PLATELET COUNT (BEAKER) (test 231 K/CU MM 150-450 code = 756) MEAN PLATELET VOLUME (BEAKER) 11.7 fL 9.4-12.4 (test code = 754) NUCLEATED RED BLOOD CELLS 0 /100 WBC 0-0 (BEAKER) (test code = 413) NEUTROPHILS RELATIVE PERCENT 84 % (BEAKER) (test code = 429) LYMPHOCYTES RELATIVE PERCENT 7 % (BEAKER) (test code = 430) MONOCYTES RELATIVE PERCENT 7 % (BEAKER) (test code = 431) EOSINOPHILS RELATIVE PERCENT 0 % (BEAKER) (test code = 432) BASOPHILS RELATIVE PERCENT 0 % (BEAKER) (test code = 437) NEUTROPHILS ABSOLUTE COUNT 12.77 K/ L 1.78-5.38 H (BEAKER) (test code = 670) LYMPHOCYTES ABSOLUTE COUNT 1.03 K/ L 1.32-3.57 L (BEAKER) (test code = 414) MONOCYTES ABSOLUTE COUNT (BEAKER) 1.12 K/ L 0.30-0.82 H (test code = 415) EOSINOPHILS ABSOLUTE COUNT 0.00 K/ L 0.04-0.54 L (BEAKER) (test code = 416) BASOPHILS ABSOLUTE COUNT (BEAKER) 0.02 K/ L 0.01-0.08 (test code = 417) IMMATURE GRANULOCYTES-RELATIVE 1 % 0-1 PERCENT (BEAKER) (test code = 2801) POCT-GLUCOSE [id number] 16:07:00 Test Item Value Reference Range Interpretation Comments POC-GLUCOSE METER 303 mg/dL 70-110 H TESTED AT [facility] 6720 ([facility]) (test code = [facility] 1538) [address] TROPONIN [id number] 15:56:00 Test Item Value Reference Range Interpretation Comments TROPONIN I (BEAKER) (test code = 0.01 ng/mL 0.00-0.03 397) Troponin I (TnI) levels must be interpreted [...] acidosis, acute neurological disease, and persistent tachyarrhythmia.TROPONIN [id number] 08:07:00 Test Item Value Reference Range Interpretation Comments TROPONIN I (BEAKER) (test code = 397) < ng/mL 0.00-0.03 Troponin I (TnI) levels [...] acute neurological disease, and persistent tachyarrhythmia.BASIC METABOLIC [id number] 08:05:00 Test Item Value Reference Range Interpretation Comments SODIUM (BEAKER) 134 meq/L 136-145 L (test code = 381) POTASSIUM (BEAKER) 6.0 meq/L 3.5-5.1 HH (test code = 379) CHLORIDE (BEAKER) 94 meq/L 98-107 L (test code = 382) CO2 (BEAKER) (test 26 meq/L 22-29 code = 355) BLOOD UREA NITROGEN 46 mg/dL 7-21 H (BEAKER) (test code = 354) CREATININE (BEAKER) 7.49 mg/dL 0.57-1.25 H (test code = 358) GLUCOSE RANDOM 433 mg/dL 70-105 HH (BEAKER) (test code = 652) CALCIUM (BEAKER) 10.7 mg/dL 8.4-10.2 H (test code = 697) EGFR (BEAKER) (test 7 mL/min/1.73 ESTIMAT ED GFR IS code = 1092) sq m NOT ACCURATE CREATININE CLEARANCE IN PREDICTING GLOMERULAR FILTRATION RATE . ESTIMATED GFR I S NOT APPLICABLE FOR DIALYSIS PATIEN TS. POCT-GLUCOSE [id number] 06:48:00 Test Item Value Reference Range Interpretation Comments POC-GLUCOSE METER 378 mg/dL 70-110 H TESTED AT [facility] 6720 (BEAKER) (test code = [facility] [place] 1538) [address] CBC W/PLT COUNT & AUTO [id number] 03:42:00 Test Item Value Reference Range Interpretation Comments WHITE BLOOD CELL COUNT (BEAKER) 13.5 K/ L 3.5-10.5 H (test code = 775) RED BLOOD CELL COUNT (BEAKER) 2.98 M/ L 4.63-6.08 L (test code = 761) HEMOGLOBIN (BEAKER) (test code = 9.5 GM/DL 13.7-17.5 L 410) HEMATOCRIT (BEAKER) (test code = 28.4 % 40.1-51.0 L 411) MEAN CORPUSCULAR VOLUME (BEAKER) 95.3 fL 79.0-92.2 H (test code = 753) MEAN CORPUSCULAR HEMOGLOBIN 31.9 pg 25.7-32.2 (BEAKER) (test code = 751) MEAN CORPUSCULAR HEMOGLOBIN CONC 33.5 GM/DL 32.3-36.5 (BEAKER) (test code = 752) RED CELL DISTRIBUTION WIDTH 15.1 % 11.6-14.4 H (BEAKER) (test code = 412) PLATELET COUNT (BEAKER) (test 203 K/CU MM 150-450 code = 756) MEAN PLATELET VOLUME (BEAKER) 11.9 fL 9.4-12.4 (test code = 754) NUCLEATED RED BLOOD CELLS 0 /100 WBC 0-0 (BEAKER) (test code = 413) NEUTROPHILS RELATIVE PERCENT 85 % (BEAKER) (test code = 429) LYMPHOCYTES RELATIVE PERCENT 9 % (BEAKER) (test code = 430) MONOCYTES RELATIVE PERCENT 4 % (BEAKER) (test code = 431) EOSINOPHILS RELATIVE PERCENT 0 % (BEAKER) (test code = 432) BASOPHILS RELATIVE PERCENT 0 % (BEAKER) (test code = 437) NEUTROPHILS ABSOLUTE COUNT 11.52 K/ L 1.78-5.38 H (BEAKER) (test code = 670) LYMPHOCYTES ABSOLUTE COUNT 1.17 K/ L 1.32-3.57 L (BEAKER) (test code = 414) MONOCYTES ABSOLUTE COUNT (BEAKER) 0.56 K/ L 0.30-0.82 (test code = 415) EOSINOPHILS ABSOLUTE COUNT 0.00 K/ L 0.04-0.54 L (BEAKER) (test code = 416) BASOPHILS ABSOLUTE COUNT (BEAKER) 0.03 K/ L 0.01-0.08 (test code = 417) IMMATURE GRANULOCYTES-RELATIVE 2 % 0-1 H PERCENT (BEAKER) (test code = 2809) BASIC METABOLIC [id number] 03:38:00 Test Item Value Reference Range Interpretation Comments SODIUM (BEAKER) 130 meq/L 136-145 L (test code = 381) POTASSIUM (BEAKER) 6.3 meq/L 3.5-5.1 HH (test code = 379) CHLORIDE (BEAKER) 94 meq/L 98-107 L (test code = 382) CO2 (BEAKER) (test 22 meq/L 22-29 code = 355) BLOOD UREA NITROGEN 42 mg/dL 7-21 H (BEAKER) (test code = 354) CREATININE (BEAKER) 7.08 mg/dL 0.57-1.25 H (test code = 358) GLUCOSE RANDOM 430 mg/dL 70-105 HH (BEAKER) (test code = 652) CALCIUM (BEAKER) 10.6 mg/dL 8.4-10.2 H (test code = 697) EGFR (BEAKER) (test 8 mL/min/1.73 ESTIMAT ED GFR IS code = 1092) sq m NOT ACCURATE CREATININE CLEARANCE IN PREDICTING GLOMERULAR FILTRATION RATE . ESTIMATED GFR I S NOT APPLICABLE FOR DIALYSIS PATIEN TS. TROPONIN [id number] 03:38:00 Test Item Value Reference Range Interpretation Comments TROPONIN I (BEAKER) (test code = 397) < ng/mL 0.00-0.03 Troponin I (TnI) levels [...] neurological disease, and persistent tachyarrhythmia.CT, BRAIN, WITHOUT [id number] 03:13:00Reason for exam:->LOSS OF CONSCIOUSNESSWhat is the patient's sedation requirement?->No SedationFINAL REPORT EXAM: CT head without contrast. CLINICAL HISTORY: LOSS OF CONSCIOUSNESS. BLURRY VISION COMPARISON: None. TECHNIQUE: CT images of the head were obtained without intra venous contrast. This exam was performed according to our departmental dose optimization program which includes automated exposure control, adjustment of the mA and/or kV according to patient's size and/or use of iterative reconstructive technique. FINDINGS:There is mild generalized parenchymal atroph y. There is intracranial calcific atherosclerosis.There is no [...] for acute intracranial pathology persists. Signed: Pia White MDReport Verified Date/Time: 04/14/2019 03:13:43 RAD, CHEST, 1 VIEW, NON [id number] 02:37:00Reason for exam:->LOSS OF CONSCIOUSNESSShould this be performed at the bedside?->Yes FINAL REPORT EXAMINATION: AP PORTABLE CHEST RADIOGRAPH CLINICAL [...] subdiaphragmatic gas collection cannot be excluded on today's limited AP portable study. Cardiac silhouette is enlarged as before. Mediastinal contours are similar to previous. Left-sided pleural effusion and/or pleural thickening is again noted, decreased in size compared with the prior study. A vascular stent is again noted along the expected course of the terminal left cephalic vein. No definite evidence of an acute osseous abnormality or pneumothorax. 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 Signed: Jonathan Centenoort Verified Date/Time: 04/14/2019 02:37:40 Reading Location: [address] Reading Room AFB CULTURE + [id number] 10:35:00 Test Item Value Reference Range Interpretation Comments CULTURE (BEAKER) (test No acid-fast bacilli code = 1095) isolated in 42 days AFB SMEAR (BEAKER) No acid fast bacilli (test code = 994) seen FUNGUS CULTURE + [id number] 19:02:00 Test Item Value Reference Range Interpretation Comments CULTURE (BEAKER) (test No fungus isolated in code = 1095) 28 days FUNGUS SMEAR (BEAKER) No fungi seen (test code = 1406) POCT-GLUCOSE [id number] 12:35:00 Test Item Value Reference Range Interpretation Comments POC-GLUCOSE METER 214 mg/dL 70-110 H TESTED AT [facility] 6720 ([facility] (test code = [facility] 1538) [address] BLOOD [id number] 12:01:00 Test Item Value Reference Range Interpretation Comments CULTURE (BEAKER) (test No growth in 5 days code = 1095) BLOOD [id number] 12:01:00 Test Item Value Reference Range Interpretation Comments CULTURE (BEAKER) (test No growth in 5 days code = 1095) POCT-GLUCOSE [id number] 07:49:00 Test Item Value Reference Range Interpretation Comments POC-GLUCOSE METER 174 mg/dL 70-110 H TESTED AT [facility] 6720 ([facility]) (test code = [facility] 1538) [address] MR, CARDIAC WITHOUT [id number] 07:10:00Reason for exam:->r/o constrictive pericarditisFINAL REPORT Cardiac MRI dated 22 Jan 2019 INDICATION: Is a 68 year-old male with with past medical history of end-stage renal disease, coronary artery disease, PCI, on anticoagulation, there is a concern for underlying constrictive physiology. TECHNIQUE: Tali 3 Shauna efectivoxIA MRI scanner. Morphologic and dynamic cine imaging [...] in appearance. In the presence of the nohemy cardial effusion, the visceral and the parietal pericardium [...] and function. Quantitative values are as follows: EDV = 177 cc; ESV= 73 cc; stroke volume = 105 cc; and ejection fraction = 59%. Calculated absolute cardiac output = 8.5 liters/min. Absolute left ventricular mass = 108 grams. The right ventricle is normal in size and function. Quantitative values are as follows: EDV = 206 cc; ESV = 78 cc; stroke volume = 102 cc; and ejection fraction = 57%. Index RV EDV = 82 cc/sq m that is within normal reference [...] ventricular functional values as described above. 2. Patientis known to have large pericardial effusion, post pericardiocentesis. At the time of this examination, overall mild to moderate circumference of pericardial effusion is seen, and the thickness of the pe ricardial fluid, is approximately 9 to 10 mm [...] attempts was made to demonstrate increased interventricular dependence- however, during deep inspiration, NO significant deviation [...] further physiologic assessment. 2. Other findings as describedabove. Overall mild bibasal pleural effusion, left greater than right, and associated atelectatic changes/consolidation is identified in the left base Signed: Alfonzo Almanza MDRepbothwell regional [facility] center Verified Date/Time: 01/23/2019 07:10:40 Reading Location: [place] [address] Cardiology MRI COMPREHENSIVE METABOLIC [id number] 05:56:00 Test Item Value Reference Range Interpretation Comments TOTAL PROTEIN 5.8 gm/dL 6.0-8.3 L (BEAKER) (test code = 770) ALBUMIN (BEAKER) 3.1 g/dL 3.5-5.0 L (test code = 1145) ALKALINE PHOSPHATASE 99 U/L 40-150 (BEAKER) (test code = 346) BILIRUBIN TOTAL 0.4 mg/dL 0.2-1.2 (BEAKER) (test code = 377) SODIUM (BEAKER) (test 137 meq/L 136-145 code = 381) POTASSIUM (BEAKER) 4.0 meq/L 3.5-5.1 (test code = 379) CHLORIDE (BEAKER) 99 meq/L 98-107 (test code = 382) CO2 (BEAKER) (test 27 meq/L 22-29 code = 355) BLOOD UREA NITROGEN 32 mg/dL 7-21 H (BEAKER) (test code = 354) CREATININE (BEAKER) 7.10 mg/dL 0.57-1.25 H (test code = 358) GLUCOSE RANDOM 170 mg/dL 70-105 H (BEAKER) (test code = 652) CALCIUM (BEAKER) 9.0 mg/dL 8.4-10.2 (test code = 697) AST (SGOT) (BEAKER) 14 U/L 5-34 (test code = 353) ALT (SGPT) (BEAKER) 21 U/L 6-55 (test code = 347) EGFR (BEAKER) (test 8 mL/min/1.73 ESTIMAT ED GFR IS code = 1092) sq m NOT ACCURATE CREATININE CLEARANCE IN PREDICTING GLOMERULAR FILTRATION RATE . ESTIMATED GFR I S NOT APPLICABLE FOR DIALYSIS PATIEN TS. C-REACTIVE [id number] 05:55:00 Test Item Value Reference Range Interpretation Comments C-REACTIVE PROTEIN (BEAKER) (test 9.80 mg/dL 0.00-0.50 H code = 676) CBC W/PLT COUNT & AUTO [id number] 05:20:00 Test Item Value Reference Range Interpretation Comments WHITE BLOOD CELL COUNT (BEAKER) 6.3 K/ L 3.5-10.5 (test code = 775) RED BLOOD CELL COUNT (BEAKER) 2.41 M/ L 4.63-6.08 L (test code = 761) HEMOGLOBIN (BEAKER) (test code = 7.2 GM/DL 13.7-17.5 L 410) HEMATOCRIT (BEAKER) (test code = 23.3 % 40.1-51.0 L 411) MEAN CORPUSCULAR VOLUME (BEAKER) 96.7 fL 79.0-92.2 H (test code = 753) MEAN CORPUSCULAR HEMOGLOBIN 29.9 pg 25.7-32.2 (BEAKER) (test code = 751) MEAN CORPUSCULAR HEMOGLOBIN CONC 30.9 GM/DL 32.3-36.5 L (BEAKER) (test code = 752) RED CELL DISTRIBUTION WIDTH 15.4 % 11.6-14.4 H (BEAKER) (test code = 412) PLATELET COUNT (BEAKER) (test 236 K/CU MM 150-450 code = 756) MEAN PLATELET VOLUME (BEAKER) 11.8 fL 9.4-12.4 (test code = 754) NUCLEATED RED BLOOD CELLS 0 /100 WBC 0-0 (BEAKER) (test code = 413) NEUTROPHILS RELATIVE PERCENT 65 % (BEAKER) (test code = 429) LYMPHOCYTES RELATIVE PERCENT 20 % (BEAKER) (test code = 430) MONOCYTES RELATIVE PERCENT 11 % (BEAKER) (test code = 431) EOSINOPHILS RELATIVE PERCENT 3 % (BEAKER) (test code = 432) BASOPHILS RELATIVE PERCENT 1 % (BEAKER) (test code = 437) NEUTROPHILS ABSOLUTE COUNT 4.11 K/ L 1.78-5.38 (BEAKER) (test code = 670) LYMPHOCYTES ABSOLUTE COUNT 1.25 K/ L 1.32-3.57 L (BEAKER) (test code = 414) MONOCYTES ABSOLUTE COUNT (BEAKER) 0.67 K/ L 0.30-0.82 (test code = 415) EOSINOPHILS ABSOLUTE COUNT 0.20 K/ L 0.04-0.54 (BEAKER) (test code = 416) BASOPHILS ABSOLUTE COUNT (BEAKER) 0.06 K/ L 0.01-0.08 (test code = 417) IMMATURE GRANULOCYTES-RELATIVE 1 % 0-1 PERCENT (BEAKER) (test code = 2801) POCT-GLUCOSE [id number] 22:15:00 Test Item Value Reference Range Interpretation Comments POC-GLUCOSE METER 183 mg/dL 70-110 H TESTED AT [place] [address] ([facility] (test code = [facility] 1538) [address] BODY FLUID CULTURE + GRAM [id number] 13:25:00 Test Item Value Reference Range Interpretation Comments CULTURE (BEAKER) (test No growth code = 1095) GRAM STAIN RESULT <1+ White blood cells (BEAKER) (test code = seen 1123) GRAM STAIN RESULT No organisms seen (BEAKER) (test code = 09896) POCT-GLUCOSE [id number] 12:07:00 Test Item Value Reference Range Interpretation Comments POC-GLUCOSE METER 275 mg/dL 70-110 H TESTED AT [facility] [address] ([facility] (test code = [place] 1538) [address] POCT-GLUCOSE [id number] 07:57:00 Test Item Value Reference Range Interpretation Comments POC-GLUCOSE METER 160 mg/dL 70-110 H TESTED AT [place] [address] ([facility]) (test code = [place] 1538) [address] POCT-GLUCOSE [id number] 21:56:00 Test Item Value Reference Range Interpretation Comments POC-GLUCOSE METER 210 mg/dL 70-110 H TESTED AT [place] [address] ([facility]) (test code = [place] 1538) [address] BODY FLUID [id number] 18:30:00 Test Item Value Reference Range Interpretation Comments CRYSTALS, BODY FLUID No crystals seen. ([facility]) (test code = 2165) [id number] Slade Granados MD ([facility]) (test code = (electronic signature) 9747) POCT-GLUCOSE [id number] 17:51:00 Test Item Value Reference Range Interpretation Comments POC-GLUCOSE METER 152 mg/dL 70-110 H TESTED AT [place] [address] ([facility]) (test code = [place] 1538) [address] [id number] 13:48:00 Test Item Value Reference Range Interpretation Comments PHOSPHORUS (BEAKER) (test code = 4.7 mg/dL 2.3-4.7 604) BODY FLUID CULTURE + GRAM [id number] 12:29:00 Test Item Value Reference Range Interpretation Comments CULTURE (BEAKER) (test No growth code = 1095) GRAM STAIN RESULT <1+ White blood cells ([facility]) (test code = seen 1123) GRAM STAIN RESULT No organisms seen (AKER) (test code = 75897) POCT-GLUCOSE [id number] 11:37:00 Test Item Value Reference Range Interpretation Comments POC-GLUCOSE METER 295 mg/dL 70-110 H TESTED AT [place] [address] ([facility]) (test code = [place] 1538) [address] POCT-GLUCOSE [id number] 07:36:00 Test Item Value Reference Range Interpretation Comments POC-GLUCOSE METER 219 mg/dL 70-110 H TESTED AT [place] [address] ([facility]) (test code = [place]PH[place] Caicedo [place] 1538) [address] [id number] 06:49:00 Test Item Value Reference Range Interpretation Comments MAGNESIUM (BEAKER) (test code = 1.9 mg/dL 1.6-2.6 627) BASIC METABOLIC [id number] 06:49:00 Test Item Value Reference Range Interpretation Comments SODIUM (BEAKER) 135 meq/L 136-145 L (test code = 381) POTASSIUM (BEAKER) 4.2 meq/L 3.5-5.1 (test code = 379) CHLORIDE (BEAKER) 99 meq/L 98-107 (test code = 382) CO2 (BEAKER) (test 25 meq/L 22-29 code = 355) BLOOD UREA NITROGEN 33 mg/dL 7-21 H (BEAKER) (test code = 354) CREATININE (BEAKER) 6.64 mg/dL 0.57-1.25 H (test code = 358) GLUCOSE RANDOM 177 mg/dL 70-105 H (BEAKER) (test code = 652) CALCIUM (BEAKER) 8.9 mg/dL 8.4-10.2 (test code = 697) EGFR (BEAKER) (test 8 mL/min/1.73 ESTIMAT ED GFR IS code = 1092) sq m NOT ACCURATE CREATININE CLEARANCE IN PREDICTING GLOMERULAR FILTRATION RATE . ESTIMATED GFR I S NOT APPLICABLE FOR DIALYSIS PATIEN TS. CBC W/PLT COUNT & AUTO [id number] 05:55:00 Test Item Value Reference Range Interpretation Comments WHITE BLOOD CELL COUNT (BEAKER) 6.3 K/ L 3.5-10.5 (test code = 775) RED BLOOD CELL COUNT (BEAKER) 2.51 M/ L 4.63-6.08 L (test code = 761) HEMOGLOBIN (BEAKER) (test code = 7.7 GM/DL 13.7-17.5 L 410) HEMATOCRIT (BEAKER) (test code = 25.2 % 40.1-51.0 L 411) MEAN CORPUSCULAR VOLUME (BEAKER) 100.4 fL 79.0-92.2 H (test code = 753) MEAN CORPUSCULAR HEMOGLOBIN 30.7 pg 25.7-32.2 (BEAKER) (test code = 751) MEAN CORPUSCULAR HEMOGLOBIN CONC 30.6 GM/DL 32.3-36.5 L (BEAKER) (test code = 752) RED CELL DISTRIBUTION WIDTH 15.7 % 11.6-14.4 H (BEAKER) (test code = 412) PLATELET COUNT (BEAKER) (test 211 K/CU MM 150-450 code = 756) MEAN PLATELET VOLUME (BEAKER) 11.9 fL 9.4-12.4 (test code = 754) NUCLEATED RED BLOOD CELLS 0 /100 WBC 0-0 (BEAKER) (test code = 413) NEUTROPHILS RELATIVE PERCENT 66 % (BEAKER) (test code = 429) LYMPHOCYTES RELATIVE PERCENT 18 % (BEAKER) (test code = 430) MONOCYTES RELATIVE PERCENT 11 % (BEAKER) (test code = 431) EOSINOPHILS RELATIVE PERCENT 3 % (BEAKER) (test code = 432) BASOPHILS RELATIVE PERCENT 1 % (BEAKER) (test code = 437) NEUTROPHILS ABSOLUTE COUNT 4.15 K/ L 1.78-5.38 (BEAKER) (test code = 670) LYMPHOCYTES ABSOLUTE COUNT 1.12 K/ L 1.32-3.57 L (BEAKER) (test code = 414) MONOCYTES ABSOLUTE COUNT (BEAKER) 0.69 K/ L 0.30-0.82 (test code = 415) EOSINOPHILS ABSOLUTE COUNT 0.18 K/ L 0.04-0.54 (BEAKER) (test code = 416) BASOPHILS ABSOLUTE COUNT (BEAKER) 0.07 K/ L 0.01-0.08 (test code = 417) IMMATURE GRANULOCYTES-RELATIVE 2 % 0-1 H PERCENT (BEAKER) (test code = 2801) POCT-GLUCOSE [id number] 21:34:00 Test Item Value Reference Range Interpretation Comments POC-GLUCOSE METER 218 mg/dL 70-110 H TESTED AT [place] [address] ([facility] (test code = [facility] 1538) [address] POCT-GLUCOSE [id number] 17:42:00 Test Item Value Reference Range Interpretation Comments POC-GLUCOSE METER 209 mg/dL 70-110 H TESTED AT [place] [address] ([facility]) (test code = [facility] 1538) [address] POCT-GLUCOSE [id number] 12:00:00 Test Item Value Reference Range Interpretation Comments POC-GLUCOSE METER 256 mg/dL 70-110 H TESTED AT [place] [address] ([facility]) (test code = [facility] 1538) [address] POCT-GLUCOSE [id number] 08:07:00 Test Item Value Reference Range Interpretation Comments POC-GLUCOSE METER 226 mg/dL 70-110 H TESTED AT [facility] 6720 (BEAKER) (test code = [place] 1538) [address] BASIC METABOLIC [id number] 06:16:00 Test Item Value Reference Range Interpretation Comments SODIUM (BEAKER) 141 meq/L 136-145 (test code = 381) POTASSIUM (BEAKER) 4.3 meq/L 3.5-5.1 (test code = 379) CHLORIDE (BEAKER) 102 meq/L 98-107 (test code = 382) CO2 (BEAKER) (test 28 meq/L 22-29 code = 355) BLOOD UREA NITROGEN 20 mg/dL 7-21 (BEAKER) (test code = 354) CREATININE (BEAKER) 4.68 mg/dL 0.57-1.25 H (test code = 358) GLUCOSE RANDOM 181 mg/dL 70-105 H (BEAKER) (test code = 652) CALCIUM (BEAKER) 9.5 mg/dL 8.4-10.2 (test code = 697) EGFR (BEAKER) (test 13 mL/min/1.73 ESTIMA ERUM GFR IS code = 1092) sq m NOT ACCURATE CREATININE CLEARANCE IN PREDICTING GLOMERULAR FILTRATION RATE . ESTIMATED GFR I S NOT APPLICABLE FOR DIALYSIS PATIEN TS. VANCOMYCIN LEVEL, [id number] 06:16:00 Test Item Value Reference Range Interpretation Comments VANCOMYCIN RANDOM (BEAKER) (test 15.3 ug/mL code = 523) Reference Range: No NormalsCBC W/PLT COUNT & AUTO [id number] 06:16:00 Test Item Value Reference Range Interpretation Comments WHITE BLOOD CELL COUNT (BEAKER) 9.2 K/ L 3.5-10.5 (test code = 775) RED BLOOD CELL COUNT (BEAKER) 2.82 M/ L 4.63-6.08 L (test code = 761) HEMOGLOBIN (BEAKER) (test code = 8.7 GM/DL 13.7-17.5 L 410) HEMATOCRIT (BEAKER) (test code = 27.9 % 40.1-51.0 L 411) MEAN CORPUSCULAR VOLUME (BEAKER) 98.9 fL 79.0-92.2 H (test code = 753) MEAN CORPUSCULAR HEMOGLOBIN 30.9 pg 25.7-32.2 (BEAKER) (test code = 751) MEAN CORPUSCULAR HEMOGLOBIN CONC 31.2 GM/DL 32.3-36.5 L (BEAKER) (test code = 752) RED CELL DISTRIBUTION WIDTH 15.7 % 11.6-14.4 H (BEAKER) (test code = 412) PLATELET COUNT (BEAKER) (test 315 K/CU MM 150-450 code = 756) MEAN PLATELET VOLUME (BEAKER) 12.5 fL 9.4-12.4 H (test code = 754) NUCLEATED RED BLOOD CELLS 0 /100 WBC 0-0 (BEAKER) (test code = 413) NEUTROPHILS RELATIVE PERCENT 75 % (BEAKER) (test code = 429) LYMPHOCYTES RELATIVE PERCENT 11 % (BEAKER) (test code = 430) MONOCYTES RELATIVE PERCENT 11 % (BEAKER) (test code = 431) EOSINOPHILS RELATIVE PERCENT 1 % (BEAKER) (test code = 432) BASOPHILS RELATIVE PERCENT 1 % (BEAKER) (test code = 437) NEUTROPHILS ABSOLUTE COUNT 6.89 K/ L 1.78-5.38 H (BEAKER) (test code = 670) LYMPHOCYTES ABSOLUTE COUNT 0.98 K/ L 1.32-3.57 L (BEAKER) (test code = 414) MONOCYTES ABSOLUTE COUNT (BEAKER) 1.00 K/ L 0.30-0.82 H (test code = 415) EOSINOPHILS ABSOLUTE COUNT 0.12 K/ L 0.04-0.54 (BEAKER) (test code = 416) BASOPHILS ABSOLUTE COUNT (BEAKER) 0.06 K/ L 0.01-0.08 (test code = 417) IMMATURE GRANULOCYTES-RELATIVE 1 % 0-1 PERCENT (BEAKER) (test code = 2801) [id number] 06:07:00 Test Item Value Reference Range Interpretation Comments MAGNESIUM (BEAKER) (test code = 2.0 mg/dL 1.6-2.6 627) POCT-GLUCOSE [id number] 21:22:00 Test Item Value Reference Range Interpretation Comments POC-GLUCOSE METER 276 mg/dL 70-110 H TESTED AT [facility] 6720 (BEAKER) (test code = [place]PH[place] 1538) [address] BODY FLUID CELL COUNT WITH [id number] 19:44:00 Test Item Value Reference Range Interpretation Comments APPEARANCE FLUID (BEAKER) Slightly Hazy Clear A (test code = 510) COLOR FLUID (BEAKER) (test Yellow Colorless, Straw A code = 511) RBC FLUID (BEAKER) (test code 15 /cu mm <=1 H = 513) ADJUSTED WBC FLUID (BEAKER) 57 /cu mm <=5 H (test code = 1691) LINING CELLS (BEAKER) (test 6 /cu mm <=1 H code = 1590) NEUTROPHILS FLUID (BEAKER) 35 % (test code = 1656) LYMPHS FLUID (BEAKER) (test 29 % code = 488) MONO/MACROPHAGE FLUID (BEAKER) 36 % (test code = 489) EOSINOPHILS FLUID (BEAKER) 0 % (test code = 491) BASO FLUID (BEAKER) (test code 0 % = 492) CONTAINER BODY FLUID (BEAKER) EDTA Tube (test code = 2873) BODY FLUID CELL COUNT WITH [id number] 19:38:00 Test Item Value Reference Range Interpretation Comments APPEARANCE FLUID (BEAKER) (test Clear Clear code = 510) COLOR FLUID (BEAKER) (test code = Straw Colorless, Straw 511) RBC FLUID (BEAKER) (test code = 28 /cu mm <=1 H 513) ADJUSTED WBC FLUID (BEAKER) (test 54 /cu mm <=5 H code = 1691) LINING CELLS (BEAKER) (test code = 4 /cu mm <=1 H 1590) NEUTROPHILS FLUID (BEAKER) (test 23 % code = 1656) LYMPHS FLUID (BEAKER) (test code = 33 % 488) MONO/MACROPHAGE FLUID (BEAKER) 44 % (test code = 489) EOSINOPHILS FLUID (BEAKER) (test 0 % code = 491) BASO FLUID (BEAKER) (test code = 0 % 492) CONTAINER BODY FLUID (BEAKER) EDTA Tube (test code = 2873) LACTATE DEHYDROGENASE (LDH), BODY [id number] 19:16:00 Test Item Value Reference Range Interpretation Comments LACTATE DEHYDROGENASE FLUID 163 U/L Light's criteria (BEAKER) (test code = 634) identifies effusions if one or more are pre Absence of reference range indicates that normals have not been defined.Assay performance has not been validated for this type of specimen.PROTEIN, BODY FLUID 2019-01-19 19:16:00 Test Item Value Reference Range Interpretation Comments PROTEIN FLUID (BEAKER) 4.2 g/dL Light's criteria identifies (test code = 579) effusions if one or more are pre Absence of reference range indicates that normals have not been defined.Assay performance has not been validated for this type of specimen.RAD, CHEST, PA OR AP, 1 [id number] 19:12:00Reason for exam:->s/p left thoracentesisFINAL REPORT History: Status post left thoracentesis. Comparison: Same [id number] hours Findings: A single view of the [...] region. Signed: Yasmeen Alba MDReport Verified Date/Time: 01/19/2019 19:12:04 Reading Location: [address] Reading Room PH, BODY [id number] 19:06:00 Test Item Value Reference Range Interpretation Comments PH, BODY FLUID (BEAKER) (test code = 8.00 1530) ALBUMIN, BODY [id number] 18:55:00 Test Item Value Reference Range Interpretation Comments ALBUMIN FLUID (BEAKER) (test code = 2.9 gm/dL 501) Reference Range: No Normals Assay performance has not been validated for this type of specimen.AMYLASE, BODY [id number] 18:55:00 Test Item Value Reference Range Interpretation Comments AMYLASE FLUID (BEAKER) (test code = 18 U/L 30-110 L 350) Absence of reference range indicates that normals have not been defined.Assay performance has not been validated for this type of specimen.LACTATE DEHYDROGENASE (LDH), BODY [id number] 18:55:00 Test Item Value Reference Range Interpretation Comments LACTATE DEHYDROGENASE FLUID 161 U/L Light's criteria (BEAKER) (test code = 634) identifies effusions if one or more are pre Absence of reference range indicates that normals have not been defined.Assay performance has not been validated for this type of specimen.PROTEIN, BODY FLUID 2019-01-19 18:55:00 Test Item Value Reference Range Interpretation Comments PROTEIN FLUID (BEAKER) 4.3 g/dL Light's criteria identifies (test code = 579) effusions if one or more are pre Absence of reference range indicates that normals have not been defined.Assay performance has not been validated for this type of specimen.TRIGLYCERIDES, BODY [id number] 18:55:00 Test Item Value Reference Range Interpretation Comments TRIGLYCERIDES FLUID (BEAKER) (test 49 mg/dL code = 539) Reference Range: No Normals Assay performance has not been validated for this type of specimen.CREATININE, BODY [id number] 18:55:00 Test Item Value Reference Range Interpretation Comments CREATININE FLUID (BEAKER) (test 3.31 mg/dL code = 677) Reference Range: No Normals Assay performance has not been validated for this type of specimen.GLUCOSE, BODY [id number] 18:55:00 Test Item Value Reference Range Interpretation Comments GLUCOSE, BODY FLUID (BEAKER) (test 204 mg/dL 70-110 H code = 1528) Absence of reference range indicates that normals have not been defined.Assay performance has not been validated for this type of specimen.SPECIFIC GRAVITY, BODY [id number] 18:49:00 Test Item Value Reference Range Interpretation Comments SP GRAVITY MISCELLANEOUS (BEAKER) (test 1.030 code = 557) Reference Range: No NormalsU/S, [id number] 18:35:00Laterality?- >LeftReason for exam:->pleural effusionFINAL REPORT Ultrasound Guided left Thoracentesis: Modality: Ultrasound Approach: Left Posterior Lateral Intercostal Sedation: None Findings: Informed consent was obtained. After an appropriate site for drainage was found, the skin was prepped and draped, and local anesthesia was given. A 4 Romanian catheter was inserted into the left pleural space under ultrasound guidance,and approximately 1000 cc of yellow pleural fluid was aspirated. The catheter was removed. No immediate complications were noted. A postprocedure chest radiograph revealed no evidence of pneumothorax. Impression: 1. Uncomplicated ultrasound-guided left thoracentesis. Signed: Perfecto Arzate Verified Date/Time: 01/19/2019 18:35:33 Reading Location: [address] Transitional Reading Room El ectronically signed by: PERFECTO ARZATE M.D. on 01/19/2019 06:35 PMPOCT-GLUCOSE [id number] 18:27:00 Test Item Value Reference Range Interpretation Comments POC-GLUCOSE METER 245 mg/dL 70-110 H TESTED AT [place] [address] ([facility]) (test code = [facility] Caiced[facility] 1538) [id number] POCT-GLUCOSE [id number] 13:05:00 Test Item Value Reference Range Interpretation Comments POC-GLUCOSE METER 169 mg/dL 70-110 H TESTED AT [place] [address] ([facility]) (test code = [facility]iced[facility] 1538) [address] RAD, CHEST, 1 VIEW, NON [id number] 10:50:00Reason for exam:->s/p pericardial drainShould this be [...] left arm soft tissues. Signed: Perfecto Arzate Verified Date/Time: 01/19/2019 10:50:13 Reading Location: [address] Transitional Reading Room VANCOMYCIN LEVEL, [id number] 09:24:00 Test Item Value Reference Range Interpretation Comments VANCOMYCIN RANDOM (BEAKER) (test 31.8 ug/mL code = 523) Reference Range: No NormalsBASIC METABOLIC [id number] 05:55:00 Test Item Value Reference Range Interpretation Comments SODIUM (BEAKER) 138 meq/L 136-145 (test code = 381) POTASSIUM (BEAKER) 3.9 meq/L 3.5-5.1 (test code = 379) CHLORIDE (BEAKER) 101 meq/L 98-107 (test code = 382) CO2 (BEAKER) (test 26 meq/L 22-29 code = 355) BLOOD UREA NITROGEN 19 mg/dL 7-21 (BEAKER) (test code = 354) CREATININE (BEAKER) 4.62 mg/dL 0.57-1.25 H (test code = 358) GLUCOSE RANDOM 149 mg/dL 70-105 H (BEAKER) (test code = 652) CALCIUM (BEAKER) 9.3 mg/dL 8.4-10.2 (test code = 697) EGFR (BEAKER) (test 13 mL/min/1.73 ESTIMA ERUM GFR IS code = 1092) sq m NOT ACCURATE CREATININE CLEARANCE IN PREDICTING GLOMERULAR FILTRATION RATE . ESTIMATED GFR I S NOT APPLICABLE FOR DIALYSIS PATIEN TS. CBC W/PLT COUNT & AUTO [id number] 05:07:00 Test Item Value Reference Range Interpretation Comments WHITE BLOOD CELL COUNT (BEAKER) 9.1 K/ L 3.5-10.5 (test code = 775) RED BLOOD CELL COUNT (BEAKER) 2.74 M/ L 4.63-6.08 L (test code = 761) HEMOGLOBIN (BEAKER) (test code = 8.6 GM/DL 13.7-17.5 L 410) HEMATOCRIT (BEAKER) (test code = 26.6 % 40.1-51.0 L 411) MEAN CORPUSCULAR VOLUME (BEAKER) 97.1 fL 79.0-92.2 H (test code = 753) MEAN CORPUSCULAR HEMOGLOBIN 31.4 pg 25.7-32.2 (BEAKER) (test code = 751) MEAN CORPUSCULAR HEMOGLOBIN CONC 32.3 GM/DL 32.3-36.5 (BEAKER) (test code = 752) RED CELL DISTRIBUTION WIDTH 15.4 % 11.6-14.4 H (BEAKER) (test code = 412) PLATELET COUNT (BEAKER) (test 283 K/CU MM 150-450 code = 756) MEAN PLATELET VOLUME (BEAKER) 12.2 fL 9.4-12.4 (test code = 754) NUCLEATED RED BLOOD CELLS 0 /100 WBC 0-0 (BEAKER) (test code = 413) NEUTROPHILS RELATIVE PERCENT 71 % (BEAKER) (test code = 429) LYMPHOCYTES RELATIVE PERCENT 14 % (BEAKER) (test code = 430) MONOCYTES RELATIVE PERCENT 12 % (BEAKER) (test code = 431) EOSINOPHILS RELATIVE PERCENT 1 % (BEAKER) (test code = 432) BASOPHILS RELATIVE PERCENT 1 % (BEAKER) (test code = 437) NEUTROPHILS ABSOLUTE COUNT 6.48 K/ L 1.78-5.38 H (BEAKER) (test code = 670) LYMPHOCYTES ABSOLUTE COUNT 1.25 K/ L 1.32-3.57 L (BEAKER) (test code = 414) MONOCYTES ABSOLUTE COUNT (BEAKER) 1.07 K/ L 0.30-0.82 H (test code = 415) EOSINOPHILS ABSOLUTE COUNT 0.06 K/ L 0.04-0.54 (BEAKER) (test code = 416) BASOPHILS ABSOLUTE COUNT (BEAKER) 0.07 K/ L 0.01-0.08 (test code = 417) IMMATURE GRANULOCYTES-RELATIVE 2 % 0-1 H PERCENT (BEAKER) (test code = 2801) POCT-GLUCOSE [id number] 00:04:00 Test Item Value Reference Range Interpretation Comments POC-GLUCOSE METER 134 mg/dL 70-110 H TESTED AT [place] [address] ([facility] (test code = [facility] 1538) [address] POCT-GLUCOSE [id number] 21:27:00 Test Item Value Reference Range Interpretation Comments POC-GLUCOSE METER 227 mg/dL 70-110 H TESTED AT [place] [address] ([facility]) (test code = [facility] 1538) [address] BODY FLUID CELL COUNT WITH [id number] 19:53:00 Test Item Value Reference Range Interpretation Comments APPEARANCE FLUID (BEAKER) Bloody Clear A (test code = 510) COLOR FLUID (BEAKER) (test Red Colorless, Straw A code = 511) RBC FLUID (BEAKER) (test code 088756 /cu mm <=1 H = 513) ADJUSTED WBC FLUID (BEAKER) 3915 /cu mm <=5 H (test code = 1691) LINING CELLS (BEAKER) (test 0 /cu mm <=1 code = 1590) NEUTROPHILS FLUID (BEAKER) 70 % (test code = 1656) LYMPHS FLUID (BEAKER) (test 15 % code = 488) MONO/MACROPHAGE FLUID (BEAKER) 14 % (test code = 489) EOSINOPHILS FLUID (BEAKER) 1 % (test code = 491) BASO FLUID (BEAKER) (test code 0 % = 492) CONTAINER BODY FLUID (BEAKER) EDTA Tube (test code = 2873) ALBUMIN, BODY [id number] 19:29:00 Test Item Value Reference Range Interpretation Comments ALBUMIN FLUID (BEAKER) (test code = 3.3 gm/dL 501) Reference Range: No Normals Assay performance has not been validated for this type of specimen.[id number] 09:21:00 Test Item Value Reference Range Interpretation Comments PROCALCITONIN (BEAKER) (test code 0.53 ng/mL <0.05 H = 3036) SEPSIS RISK (ng/mL)Low: 0.05-0.50Intermediate: 0.51-2.00High: >=2.01TROPONIN [id number] 08:35:00 Test Item Value Reference Range Interpretation Comments TROPONIN I (BEAKER) (test code = 0.12 ng/mL 0.00-0.03 H 397) Troponin I (TnI) levels must be interpreted [...] disease, and persistent tachyarrhythmia.B-TYPE NATRIURETIC FACTOR (BNP) 2019-01-18 08:34:00 Test Item Value Reference Range Interpretation Comments B-TYPE NATRIURETIC PEPTIDE (BEAKER) 198 pg/mL 0-100 H (test code = 700) BASIC METABOLIC [id number] 08:30:00 Test Item Value Reference Range Interpretation Comments SODIUM (BEAKER) 137 meq/L 136-145 (test code = 381) POTASSIUM (BEAKER) 3.6 meq/L 3.5-5.1 (test code = 379) CHLORIDE (BEAKER) 99 meq/L 98-107 (test code = 382) CO2 (BEAKER) (test 25 meq/L 22-29 code = 355) BLOOD UREA NITROGEN 21 mg/dL 7-21 (BEAKER) (test code = 354) CREATININE (BEAKER) 5.31 mg/dL 0.57-1.25 H (test code = 358) GLUCOSE RANDOM 140 mg/dL 70-105 H (BEAKER) (test code = 652) CALCIUM (BEAKER) 9.5 mg/dL 8.4-10.2 (test code = 697) EGFR (BEAKER) (test 11 mL/min/1.73 ESTIMA ERUM GFR IS code = 1092) sq m NOT ACCURATE CREATININE CLEARANCE IN PREDICTING GLOMERULAR FILTRATION RATE . ESTIMATED GFR I S NOT APPLICABLE FOR DIALYSIS PATIEN TS. HEPATIC FUNCTION [id number] 08:28:00 Test Item Value Reference Range Interpretation Comments TOTAL PROTEIN (BEAKER) (test code = 6.9 gm/dL 6.0-8.3 770) ALBUMIN (BEAKER) (test code = 1145) 3.9 g/dL 3.5-5.0 BILIRUBIN TOTAL (BEAKER) (test code 0.6 mg/dL 0.2-1.2 = 377) BILIRUBIN DIRECT (BEAKER) (test 0.2 mg/dL 0.1-0.5 code = 706) ALKALINE PHOSPHATASE (BEAKER) (test 89 U/L 40-150 code = 346) AST (SGOT) (BEAKER) (test code = 10 U/L 5-34 353) ALT (SGPT) (BEAKER) (test code = 14 U/L 6-55 347) PROTHROMBIN TIME/[id number] 08:25:00 Test Item Value Reference Range Interpretation Comments PROTIME (BEAKER) (test code = 16.7 seconds 11.7-14.7 H 759) INR (BEAKER) (test code = 370) 1.4 <=5.9 RECOMMENDED COUMADIN/WARFARIN INR THERAPY RANGESSTANDARD DOSE: 2.0 - 3.0 Includes: PROPHYLAXIS forvenous thrombosis, systemic embolization; TREATMENT for venous thrombosis and/or pulmonary embolus.HIGH RISK: Target INR is 2.5-3.5 for patients with mechanical heart valves.RAD, CHEST, 1 VIEW, NON [id number] 08:09:00Reason for exam:->feverShould this be performed at the bedside?->YesFINAL REPORT Chest one view. Clinical history: fever Comparison: January 08, 2019, January 07, 2019 Discussion: A frontal chest is provided. Cardiac silhouette is enlarged. There is opacity in the left mid to lower lung, likely reflecting the presence of a moderate to large effusion and a djacent atelectasis/consolidation. Right lung appears clear. No pneumothorax. Signed: Graham Chan Verified Date/Time: 01/18/2019 08:09:08 Reading Location: [facility] Reading Room CBC W/PLT COUNT & AUTO DIFFERENTIAL 2019-01-18 08:08:00 Test Item Value Reference Range Interpretation Comments WHITE BLOOD CELL COUNT (BEAKER) 11.0 K/ L 3.5-10.5 H (test code = 775) RED BLOOD CELL COUNT (BEAKER) 2.51 M/ L 4.63-6.08 L (test code = 761) HEMOGLOBIN (BEAKER) (test code = 7.8 GM/DL 13.7-17.5 L 410) HEMATOCRIT (BEAKER) (test code = 25.0 % 40.1-51.0 L 411) MEAN CORPUSCULAR VOLUME (BEAKER) 99.6 fL 79.0-92.2 H (test code = 753) MEAN CORPUSCULAR HEMOGLOBIN 31.1 pg 25.7-32.2 (BEAKER) (test code = 751) MEAN CORPUSCULAR HEMOGLOBIN CONC 31.2 GM/DL 32.3-36.5 L (BEAKER) (test code = 752) RED CELL DISTRIBUTION WIDTH 15.2 % 11.6-14.4 H (BEAKER) (test code = 412) PLATELET COUNT (BEAKER) (test 294 K/CU MM 150-450 code = 756) MEAN PLATELET VOLUME (BEAKER) 11.7 fL 9.4-12.4 (test code = 754) NUCLEATED RED BLOOD CELLS 0 /100 WBC 0-0 (BEAKER) (test code = 413) NEUTROPHILS RELATIVE PERCENT 71 % (BEAKER) (test code = 429) LYMPHOCYTES RELATIVE PERCENT 15 % (BEAKER) (test code = 430) MONOCYTES RELATIVE PERCENT 11 % (BEAKER) (test code = 431) EOSINOPHILS RELATIVE PERCENT 1 % (BEAKER) (test code = 432) BASOPHILS RELATIVE PERCENT 1 % (BEAKER) (test code = 437) NEUTROPHILS ABSOLUTE COUNT 7.74 K/ L 1.78-5.38 H (BEAKER) (test code = 670) LYMPHOCYTES ABSOLUTE COUNT 1.67 K/ L 1.32-3.57 (BEAKER) (test code = 414) MONOCYTES ABSOLUTE COUNT (BEAKER) 1.19 K/ L 0.30-0.82 H (test code = 415) EOSINOPHILS ABSOLUTE COUNT 0.09 K/ L 0.04-0.54 (BEAKER) (test code = 416) BASOPHILS ABSOLUTE COUNT (BEAKER) 0.09 K/ L 0.01-0.08 H (test code = 417) IMMATURE GRANULOCYTES-RELATIVE 2 % 0-1 H PERCENT (BEAKER) (test code = 2801) POCT-LACTIC ACID, [id number] 08:06:00 Test Item Value Reference Range Interpretation Comments POC-LACTIC ACID, 1.0 mmol/L 0.9-1.7 TESTED AT [facility] [address] (BEAKER) (test [facility] code = 2805) [address] BLOOD [id number] 08:00:00 Test Item Value Reference Range Interpretation Comments CULTURE (BEAKER) (test No growth in 5 days code = 1095) BLOOD [id number] 08:00:00 Test Item Value Reference Range Interpretation Comments CULTURE (BEAKER) (test No growth in 5 days code = 1095) HEMOGLOBIN [id number] 20:14:00 Test Item Value Reference Range Interpretation Comments HEMOGLOBIN A1C (BEAKER) (test code = 6.8 % 4.3-6.1 H 368) RAD, CHEST, 1 VIEW, NON [id number] 16:01:00Reason for exam:->respiratory insufficiencyShould this be performed [...] MDReport Verified Date/Time: 01/08/2019 16:01:59 Reading Location: [facility] [id number] Consult Reading Room Electronically signedby: ACOSTA BECKER M.D. on 01/08/2019 04:01 PMPOCT-GLUCOSE [id number] 12:01:00 Test Item Value Reference Range Interpretation Comments POC-GLUCOSE METER 178 mg/dL 70-110 H TESTED AT [facility] 67[address] (BEAKER) (test code = [place]PHONSO Caicedo [place] 1538) [address] BASIC METABOLIC [id number] 06:13:00 Test Item Value Reference Range Interpretation Comments SODIUM (BEAKER) 138 meq/L 136-145 (test code = 381) POTASSIUM (BEAKER) 4.6 meq/L 3.5-5.1 (test code = 379) CHLORIDE (BEAKER) 101 meq/L 98-107 (test code = 382) CO2 (BEAKER) (test 23 meq/L 22-29 code = 355) BLOOD UREA NITROGEN 36 mg/dL 7-21 H (BEAKER) (test code = 354) CREATININE (BEAKER) 6.83 mg/dL 0.57-1.25 H (test code = 358) GLUCOSE RANDOM 166 mg/dL 70-105 H (BEAKER) (test code = 652) CALCIUM (BEAKER) 9.3 mg/dL 8.4-10.2 (test code = 697) EGFR (BEAKER) (test 8 mL/min/1.73 ESTIMAT ED GFR IS code = 1092) sq m NOT ACCURATE CREATININE CLEARANCE IN PREDICTING GLOMERULAR FILTRATION RATE . ESTIMATED GFR I S NOT APPLICABLE FOR DIALYSIS PATIEN TS. CBC (HEMOGRAM ONLY)2019-01-08 05:22:00 Test Item Value Reference Range Interpretation Comments WHITE BLOOD CELL COUNT (BEAKER) 8.7 K/ L 3.5-10.5 (test code = 775) RED BLOOD CELL COUNT (BEAKER) 2.86 M/ L 4.63-6.08 L (test code = 761) HEMOGLOBIN (BEAKER) (test code = 9.0 GM/DL 13.7-17.5 L 410) HEMATOCRIT (BEAKER) (test code = 29.4 % 40.1-51.0 L 411) MEAN CORPUSCULAR VOLUME (BEAKER) 102.8 fL 79.0-92.2 H (test code = 753) MEAN CORPUSCULAR HEMOGLOBIN 31.5 pg 25.7-32.2 ([facility]) (test code = 751) MEAN CORPUSCULAR HEMOGLOBIN CONC 30.6 GM/DL 32.3-36.5 L ([facility]) (test code = 752) RED CELL DISTRIBUTION WIDTH 14.5 % 11.6-14.4 H ([facility]) (test code = 412) PLATELET COUNT ([facility]) (test 256 K/CU MM 150-450 code = 756) MEAN PLATELET VOLUME ([facility]) 11.9 fL 9.4-12.4 (test code = 754) NUCLEATED RED BLOOD CELLS 0 /100 WBC 0-0 ([facility]) (test code = 413) POCT-GLUCOSE [id number] 21:50:00 Test Item Value Reference Range Interpretation Comments POC-GLUCOSE METER 211 mg/dL 70-110 H TESTED AT [facility] 67 ([facility]) (test code = [facility] 1538) [address] POCT-GLUCOSE [id number] 18:22:00 Test Item Value Reference Range Interpretation Comments POC-GLUCOSE METER 118 mg/dL 70-110 H TESTED AT [facility] 67 ([facility]) (test code = [facility] 1538) [address] POCT-GLUCOSE [id number] 12:04:00 Test Item Value Reference Range Interpretation Comments POC-GLUCOSE METER 158 mg/dL 70-110 H TESTED AT [place] [address] ([facility]) (test code = [facility] 1538) [address] RAD, CHEST, 1 VIEW, NON [id number] 10:43:00Reason for exam:->respiratory insufficiencyShould this be performed at the bedside?->YesFINAL REPORT INDICATION: respiratory insufficiency COMPARISON:January 06 TECHNIQUE: Chest radiograph, single view, portable technique. FINDINGS / IMPRESSION: Enlarged heart shadow andnonspecific left retrocardiac opacity again demonstrated. Pulmonary veins are prominent but no overtpulmonary edema. No pneumothorax. Osseous structures unremarkable. Signed: Franky Mix MDReport Verified Date/Time: 01/07/2019 10:43:17 Reading Location: [facility] Radiology Reading Room POCT-GLUCOSE [id number] 08:09:00 Test Item Value Reference Range Interpretation Comments POC-GLUCOSE METER 145 mg/dL 70-110 H TESTED AT [place] [address] ([facility]) (test code = [facility] 1538) [id number] POCT-GLUCOSE [id number] 21:32:00 Test Item Value Reference Range Interpretation Comments POC-GLUCOSE METER 274 mg/dL 70-110 H TESTED AT [place] [address] ([facility]) (test code = [facility] 1538) [id number] POCT-GLUCOSE [id number] 17:20:00 Test Item Value Reference Range Interpretation Comments POC-GLUCOSE METER 215 mg/dL 70-110 H TESTED AT [place] [address] ([facility]) (test code = [facility] 1538) [id number] POCT-GLUCOSE [id number] 14:33:00 Test Item Value Reference Range Interpretation Comments POC-GLUCOSE METER 200 mg/dL 70-110 H TESTED AT [place] [address] ([facility]) (test code = [facility] 1538) [id number] POCT-GLUCOSE [id number] 11:13:00 Test Item Value Reference Range Interpretation Comments POC-GLUCOSE METER 289 mg/dL 70-110 H TESTED AT [place] [address] ([facility]) (test code = [facility] 1538) [id number] POCT-GLUCOSE [id number] 08:08:00 Test Item Value Reference Range Interpretation Comments POC-GLUCOSE METER 180 mg/dL 70-110 H TESTED AT [place] [address] ([facility]) (test code = [facility] 1538) [address] RAD, CHEST, 1 VIEW, NON [id number] 07:40:00Reason for exam:->respiratory insufficiencyShould this be performed at the bedside?->YesFINAL REPORT Chest dated 01/06/2019 COMPARISON: 01/05/2019 Clinical Information:respiratory insufficiency Comment: Heart is enlarged. Pulmonary vasculature is indistinct. Interstitial disease is seen bilaterally suggestive of vascular congestion unchanged from prior study. There is small left pleural effusion. Signed: Yuridia Wallace MDReport Verified Date/Time: 01/06/2019 07:40:30 Reading Location: [facility] [id number] Consult Reading Room Electronically signed by: YURIDIA WALLACE M.D.on 01/06/2019 07:40 AMBASIC METABOLIC [id number] 07:18:00 Test Item Value Reference Range Interpretation Comments SODIUM (BEAKER) 136 meq/L 136-145 (test code = 381) POTASSIUM (BEAKER) 5.2 meq/L 3.5-5.1 H (test code = 379) CHLORIDE (BEAKER) 100 meq/L 98-107 (test code = 382) CO2 (BEAKER) (test 21 meq/L 22-29 L code = 355) BLOOD UREA NITROGEN 49 mg/dL 7-21 H (BEAKER) (test code = 354) CREATININE (BEAKER) 8.64 mg/dL 0.57-1.25 H (test code = 358) GLUCOSE RANDOM 146 mg/dL 70-105 H (BEAKER) (test code = 652) CALCIUM (BEAKER) 9.6 mg/dL 8.4-10.2 (test code = 697) EGFR (BEAKER) (test 6 mL/min/1.73 ESTIMAT ED GFR IS code = 1092) sq m NOT ACCURATE CREATININE CLEARANCE IN PREDICTING GLOMERULAR FILTRATION RATE . ESTIMATED GFR I S NOT APPLICABLE FOR DIALYSIS PATIEN TS. VANCOMYCIN LEVEL, [id number] 07:13:00 Test Item Value Reference Range Interpretation Comments VANCOMYCIN RANDOM (BEAKER) (test 17.4 ug/mL code = 523) Reference Range: No [id number] 07:09:00 Test Item Value Reference Range Interpretation Comments MAGNESIUM (BEAKER) (test code = 2.1 mg/dL 1.6-2.6 627) POCT-GLUCOSE [id number] 21:46:00 Test Item Value Reference Range Interpretation Comments POC-GLUCOSE METER 173 mg/dL 70-110 H TESTED AT [facility] 6720 (BEAKER) (test code = [facility] 1538) [id number] POCT-GLUCOSE [id number] 16:20:00 Test Item Value Reference Range Interpretation Comments POC-GLUCOSE METER 172 mg/dL 70-110 H TESTED AT [facility] 6720 (BEAKER) (test code = [facility] 1538) [address] POCT-GLUCOSE [id number] 12:21:00 Test Item Value Reference Range Interpretation Comments POC-GLUCOSE METER 260 mg/dL 70-110 H TESTED AT [facility] 6720 [facility] (test code = [facility] 1538) [address] POCT-GLUCOSE [id number] 08:37:00 Test Item Value Reference Range Interpretation Comments POC-GLUCOSE METER 153 mg/dL 70-110 H TESTED AT [facility] 6720 ([facility] (test code = [facility] 1538) [address] RAD, CHEST, 1 VIEW, NON [id number] 07:04:00Reason for exam:->respiratory insufficiencyShould this be performed at the bedside?->YesFINAL REPORT RAD, CHEST, 1 VIEW, NON DEPT INDICATION: respiratory insufficiency COMPARISON: Prior day's exam FINDINGS: Portable frontal view of the chest. IMPRESSION: Support Lines: External leads Lungs and pleura: Bibasilar subsegmental atelectasis No pneumothorax.Heart and mediastinum: Stable contours. Additional findings: None. Signed: Dasia Britt MDReport Verified Date/Time: 01/05/2019 07:04:08 Reading Location: [address] Neuro Reading Room BASIC METABOLIC [id number] 05:47:00 Test Item Value Reference Range Interpretation Comments SODIUM (BEAKER) 133 meq/L 136-145 L (test code = 381) POTASSIUM (BEAKER) 5.1 meq/L 3.5-5.1 (test code = 379) CHLORIDE (BEAKER) 97 meq/L 98-107 L (test code = 382) CO2 (BEAKER) (test 25 meq/L 22-29 code = 355) BLOOD UREA NITROGEN 33 mg/dL 7-21 H (BEAKER) (test code = 354) CREATININE (BEAKER) 6.56 mg/dL 0.57-1.25 H (test code = 358) GLUCOSE RANDOM 156 mg/dL 70-105 H (BEAKER) (test code = 652) CALCIUM (BEAKER) 9.6 mg/dL 8.4-10.2 (test code = 697) EGFR (BEAKER) (test 9 mL/min/1.73 ESTIMAT ED GFR IS code = 1092) sq m NOT ACCURATE CREATININE CLEARANCE IN PREDICTING GLOMERULAR FILTRATION RATE . ESTIMATED GFR I S NOT APPLICABLE FOR DIALYSIS PATIEN TS. [id number] 05:36:00 Test Item Value Reference Range Interpretation Comments MAGNESIUM (BEAKER) (test code = 1.9 mg/dL 1.6-2.6 627) CBC W/PLT COUNT & AUTO [id number] 05:18:00 Test Item Value Reference Range Interpretation Comments WHITE BLOOD CELL COUNT (BEAKER) 10.5 K/ L 3.5-10.5 (test code = 775) RED BLOOD CELL COUNT (BEAKER) 2.73 M/ L 4.63-6.08 L (test code = 761) HEMOGLOBIN (BEAKER) (test code = 8.6 GM/DL 13.7-17.5 L 410) HEMATOCRIT (BEAKER) (test code = 27.1 % 40.1-51.0 L 411) MEAN CORPUSCULAR VOLUME (BEAKER) 99.3 fL 79.0-92.2 H (test code = 753) MEAN CORPUSCULAR HEMOGLOBIN 31.5 pg 25.7-32.2 (BEAKER) (test code = 751) MEAN CORPUSCULAR HEMOGLOBIN CONC 31.7 GM/DL 32.3-36.5 L (BEAKER) (test code = 752) RED CELL DISTRIBUTION WIDTH 14.4 % 11.6-14.4 (BEAKER) (test code = 412) PLATELET COUNT (BEAKER) (test 154 K/CU MM 150-450 code = 756) MEAN PLATELET VOLUME (BEAKER) 12.5 fL 9.4-12.4 H (test code = 754) NUCLEATED RED BLOOD CELLS 0 /100 WBC 0-0 (BEAKER) (test code = 413) NEUTROPHILS RELATIVE PERCENT 78 % (BEAKER) (test code = 429) LYMPHOCYTES RELATIVE PERCENT 11 % (BEAKER) (test code = 430) MONOCYTES RELATIVE PERCENT 10 % (BEAKER) (test code = 431) EOSINOPHILS RELATIVE PERCENT 0 % (BEAKER) (test code = 432) BASOPHILS RELATIVE PERCENT 1 % (BEAKER) (test code = 437) NEUTROPHILS ABSOLUTE COUNT 8.18 K/ L 1.78-5.38 H (BEAKER) (test code = 670) LYMPHOCYTES ABSOLUTE COUNT 1.11 K/ L 1.32-3.57 L (BEAKER) (test code = 414) MONOCYTES ABSOLUTE COUNT (BEAKER) 1.04 K/ L 0.30-0.82 H (test code = 415) EOSINOPHILS ABSOLUTE COUNT 0.03 K/ L 0.04-0.54 L (BEAKER) (test code = 416) BASOPHILS ABSOLUTE COUNT (BEAKER) 0.05 K/ L 0.01-0.08 (test code = 417) IMMATURE GRANULOCYTES-RELATIVE 1 % 0-1 PERCENT (BEAKER) (test code = 2801) BLOOD GAS, [id number] 05:12:00 Test Item Value Reference Range Interpretation Comments PH ARTERIAL (BEAKER) (test code = 7.44 7.35-7.45 383) PCO2 ARTERIAL (BEAKER) (test code 41 mmHg 35-45 = 384) PO2 ARTERIAL (BEAKER) (test code = 118 mmHg 80-90 H 385) O2 SATURATION ARTERIAL (BEAKER) 98.0 % 96.0-97.0 H (test code = 386) HCO3 ARTERIAL (BEAKER) (test code 26 mmol/L 21-29 = 388) BASE EXCESS ARTERIAL (BEAKER) 2.7 mmol/L -2.0-3.0 (test code = 387) PATIENT TEMPERATURE (BEAKER) (test 39.5 C code = 1818) FIO2 (BEAKER) (test code = 1819) 21.0 % LACTIC ACID, [id number] 05:00:00 Test Item Value Reference Range Interpretation Comments LACTATE BLOOD ARTERIAL (2) 1.0 mmol/L 0.5-2.2 (BEAKER) (test code = 2874) BASIC METABOLIC [id number] 23:29:00 Test Item Value Reference Range Interpretation Comments SODIUM (BEAKER) 135 meq/L 136-145 L (test code = 381) POTASSIUM (BEAKER) 4.9 meq/L 3.5-5.1 (test code = 379) CHLORIDE (BEAKER) 98 meq/L 98-107 (test code = 382) CO2 (BEAKER) (test 26 meq/L 22-29 code = 355) BLOOD UREA NITROGEN 29 mg/dL 7-21 H (BEAKER) (test code = 354) CREATININE (BEAKER) 6.08 mg/dL 0.57-1.25 H (test code = 358) GLUCOSE RANDOM 192 mg/dL 70-105 H (BEAKER) (test code = 652) CALCIUM (BEAKER) 9.6 mg/dL 8.4-10.2 (test code = 697) EGFR (BEAKER) (test 9 mL/min/1.73 ESTIMAT ED GFR IS code = 1092) sq m NOT ACCURATE CREATININE CLEARANCE IN PREDICTING GLOMERULAR FILTRATION RATE . ESTIMATED GFR I S NOT APPLICABLE FOR DIALYSIS PATIEN TS. [id number] 23:17:00 Test Item Value Reference Range Interpretation Comments MAGNESIUM (BEAKER) (test code = 1.9 mg/dL 1.6-2.6 627) CBC W/PLT COUNT & AUTO [id number] 22:52:00 Test Item Value Reference Range Interpretation Comments WHITE BLOOD CELL COUNT (BEAKER) 10.4 K/ L 3.5-10.5 (test code = 775) RED BLOOD CELL COUNT (BEAKER) 2.82 M/ L 4.63-6.08 L (test code = 761) HEMOGLOBIN (BEAKER) (test code = 8.8 GM/DL 13.7-17.5 L 410) HEMATOCRIT (BEAKER) (test code = 28.0 % 40.1-51.0 L 411) MEAN CORPUSCULAR VOLUME (BEAKER) 99.3 fL 79.0-92.2 H (test code = 753) MEAN CORPUSCULAR HEMOGLOBIN 31.2 pg 25.7-32.2 (BEAKER) (test code = 751) MEAN CORPUSCULAR HEMOGLOBIN CONC 31.4 GM/DL 32.3-36.5 L (BEAKER) (test code = 752) RED CELL DISTRIBUTION WIDTH 14.1 % 11.6-14.4 (BEAKER) (test code = 412) PLATELET COUNT (BEAKER) (test 152 K/CU MM 150-450 code = 756) MEAN PLATELET VOLUME (BEAKER) 12.5 fL 9.4-12.4 H (test code = 754) NUCLEATED RED BLOOD CELLS 0 /100 WBC 0-0 (BEAKER) (test code = 413) NEUTROPHILS RELATIVE PERCENT 80 % (BEAKER) (test code = 429) LYMPHOCYTES RELATIVE PERCENT 8 % (BEAKER) (test code = 430) MONOCYTES RELATIVE PERCENT 10 % (BEAKER) (test code = 431) EOSINOPHILS RELATIVE PERCENT 0 % (BEAKER) (test code = 432) BASOPHILS RELATIVE PERCENT 0 % (BEAKER) (test code = 437) NEUTROPHILS ABSOLUTE COUNT 8.31 K/ L 1.78-5.38 H (BEAKER) (test code = 670) LYMPHOCYTES ABSOLUTE COUNT 0.87 K/ L 1.32-3.57 L (BEAKER) (test code = 414) MONOCYTES ABSOLUTE COUNT (BEAKER) 1.06 K/ L 0.30-0.82 H (test code = 415) EOSINOPHILS ABSOLUTE COUNT 0.03 K/ L 0.04-0.54 L (BEAKER) (test code = 416) BASOPHILS ABSOLUTE COUNT (BEAKER) 0.04 K/ L 0.01-0.08 (test code = 417) IMMATURE GRANULOCYTES-RELATIVE 1 % 0-1 PERCENT (BEAKER) (test code = 2801) POCT-GLUCOSE [id number] 22:52:00 Test Item Value Reference Range Interpretation Comments POC-GLUCOSE METER 221 mg/dL 70-110 H TESTED AT [place] [address] ([facility]) (test code = [facility] 1538) [id number] POCT-GLUCOSE [id number] 19:02:00 Test Item Value Reference Range Interpretation Comments POC-GLUCOSE METER 182 mg/dL 70-110 H TESTED AT [place] [address] ([facility]) (test code = [facility] 1538) [id number] POCT-GLUCOSE [id number] 15:31:00 Test Item Value Reference Range Interpretation Comments POC-GLUCOSE METER 150 mg/dL 70-110 H TESTED AT [place] [address] ([facility]) (test code = [facility] 1538) [address] POCT-GLUCOSE [id number] 12:07:00 Test Item Value Reference Range Interpretation Comments POC-GLUCOSE METER 284 mg/dL 70-110 H TESTED AT [place] [address] ([facility]) (test code = [facility] 1538) [id number] RAD, CHEST, 1 VIEW, NON [id number] 08:49:00Reason for exam:->respiratory insufficiencyShould this be performed at the bedside?->YesFINAL REPORT Clinical History: Respiratory insufficiency Comparison Study: January 03, 2019 Findings: The cardiac silhouette is enlarged. Mild interstitial markings are seen. The lungs are otherwise within normal limits. The pleural spaces are clear. No significant bony or soft tissue abnormalities are seen. Impression: Cardiomegaly. Signed: Acosta Becker MDReport Verified Date/Time: 01/04/2019 08:49:14 Reading Location: [facility] Radiology Reading Room BASIC METABOLIC [id number] 06:21:00 Test Item Value Reference Range Interpretation Comments SODIUM (BEAKER) 135 meq/L 136-145 L (test code = 381) POTASSIUM (BEAKER) 5.5 meq/L 3.5-5.1 H (test code = 379) CHLORIDE (BEAKER) 99 meq/L 98-107 (test code = 382) CO2 (BEAKER) (test 24 meq/L 22-29 code = 355) BLOOD UREA NITROGEN 36 mg/dL 7-21 H (BEAKER) (test code = 354) CREATININE (BEAKER) 7.37 mg/dL 0.57-1.25 H (test code = 358) GLUCOSE RANDOM 203 mg/dL 70-105 H (BEAKER) (test code = 652) CALCIUM (BEAKER) 9.7 mg/dL 8.4-10.2 (test code = 697) EGFR (BEAKER) (test 7 mL/min/1.73 ESTIMAT ED GFR IS code = 1092) sq m NOT ACCURATE CREATININE CLEARANCE IN PREDICTING GLOMERULAR FILTRATION RATE . ESTIMATED GFR I S NOT APPLICABLE FOR DIALYSIS PATIEN TS. [id number] 06:09:00 Test Item Value Reference Range Interpretation Comments POTASSIUM (BEAKER) (test code = 5.5 meq/L 3.5-5.1 H 379) [id number] 06:09:00 Test Item Value Reference Range Interpretation Comments MAGNESIUM (BEAKER) (test code = 2.2 mg/dL 1.6-2.6 627) [id number] 06:09:00 Test Item Value Reference Range Interpretation Comments PHOSPHORUS (BEAKER) (test code = 5.8 mg/dL 2.3-4.7 H 604) CBC W/PLT COUNT & AUTO [id number] 05:54:00 Test Item Value Reference Range Interpretation Comments WHITE BLOOD CELL COUNT (BEAKER) 11.3 K/ L 3.5-10.5 H (test code = 775) RED BLOOD CELL COUNT (BEAKER) 2.88 M/ L 4.63-6.08 L (test code = 761) HEMOGLOBIN (BEAKER) (test code = 9.1 GM/DL 13.7-17.5 L 410) HEMATOCRIT (BEAKER) (test code = 28.6 % 40.1-51.0 L 411) MEAN CORPUSCULAR VOLUME (BEAKER) 99.3 fL 79.0-92.2 H (test code = 753) MEAN CORPUSCULAR HEMOGLOBIN 31.6 pg 25.7-32.2 (BEAKER) (test code = 751) MEAN CORPUSCULAR HEMOGLOBIN CONC 31.8 GM/DL 32.3-36.5 L (BEAKER) (test code = 752) RED CELL DISTRIBUTION WIDTH 14.4 % 11.6-14.4 (BEAKER) (test code = 412) PLATELET COUNT (BEAKER) (test 165 K/CU MM 150-450 code = 756) MEAN PLATELET VOLUME (BEAKER) 12.4 fL 9.4-12.4 (test code = 754) NUCLEATED RED BLOOD CELLS 0 /100 WBC 0-0 (BEAKER) (test code = 413) NEUTROPHILS RELATIVE PERCENT 76 % (BEAKER) (test code = 429) LYMPHOCYTES RELATIVE PERCENT 11 % (BEAKER) (test code = 430) MONOCYTES RELATIVE PERCENT 11 % (BEAKER) (test code = 431) EOSINOPHILS RELATIVE PERCENT 0 % (BEAKER) (test code = 432) BASOPHILS RELATIVE PERCENT 0 % (BEAKER) (test code = 437) NEUTROPHILS ABSOLUTE COUNT 8.59 K/ L 1.78-5.38 H (BEAKER) (test code = 670) LYMPHOCYTES ABSOLUTE COUNT 1.28 K/ L 1.32-3.57 L (BEAKER) (test code = 414) MONOCYTES ABSOLUTE COUNT (BEAKER) 1.26 K/ L 0.30-0.82 H (test code = 415) EOSINOPHILS ABSOLUTE COUNT 0.04 K/ L 0.04-0.54 (BEAKER) (test code = 416) BASOPHILS ABSOLUTE COUNT (BEAKER) 0.05 K/ L 0.01-0.08 (test code = 417) IMMATURE GRANULOCYTES-RELATIVE 1 % 0-1 PERCENT (BEAKER) (test code = 2801) BLOOD GAS, [id number] 05:34:00 Test Item Value Reference Range Interpretation Comments PH ARTERIAL (BEAKER) (test code = 7.41 7.35-7.45 383) PCO2 ARTERIAL (BEAKER) (test code 42 mmHg 35-45 = 384) PO2 ARTERIAL (BEAKER) (test code = 105 mmHg 80-90 H 385) O2 SATURATION ARTERIAL (BEAKER) 97.7 % 96.0-97.0 H (test code = 386) HCO3 ARTERIAL (BEAKER) (test code 26 mmol/L 21-29 = 388) BASE EXCESS ARTERIAL (BEAKER) 0.9 mmol/L -2.0-3.0 (test code = 387) PATIENT TEMPERATURE (BEAKER) (test 37.5 C code = 1818) FIO2 (BEAKER) (test code = 1819) 21.0 % HEPATITIS B SURFACE [id number] 03:29:00 Test Item Value Reference Range Interpretation Comments HEPATITIS B SURFACE ANTIGEN (2) Nonreactive Nonreactive (BEAKER) (test code = 2585) TROPONIN [id number] 03:04:00 Test Item Value Reference Range Interpretation Comments TROPONIN I (BEAKER) (test code = 2.70 ng/mL 0.00-0.03 HH 397) Troponin I (TnI) levels must be interpreted [...] (CK)[id number] 02:48:00 Test Item Value Reference Range Interpretation Comments CREATINE KINASE TOTAL (BEAKER) (test 340 U/L 29-200 H code = 380) [id number] 02:42:00 Test Item Value Reference Range Interpretation Comments PROTIME (BEAKER) (test code = 22.0 seconds 11.7-14.7 H 759) INR (BEAKER) (test code = 370) 2.0 <=5.9 PARTIAL THROMBOPLASTIN TIME 114.6 seconds 22.5-36.0 H (BEAKER) (test code = 760) RECOMMENDED COUMADIN/WARFARIN INR THERAPY RANGESSTANDARD DOSE: 2.0 - 3.0 Includes: PROPHYLAXIS forvenous thrombosis, systemic embolization; TREATMENT for venous thrombosis and/or pulmonary embolus.HIGH RISK: Target INR is 2.5-3.5 for patients with mechanical heart valves.BLOOD GAS, [id number] 02:15:00 Test Item Value Reference Range Interpretation Comments PH ARTERIAL (BEAKER) (test code = 7.35 7.35-7.45 383) PCO2 ARTERIAL (BEAKER) (test code 47 mmHg 35-45 H = 384) PO2 ARTERIAL (BEAKER) (test code 78 mmHg 80-90 L = 385) O2 SATURATION ARTERIAL (BEAKER) 94.6 % 96.0-97.0 L (test code = 386) HCO3 ARTERIAL (BEAKER) (test code 25 mmol/L 21-29 = 388) BASE EXCESS ARTERIAL (BEAKER) -0.5 mmol/L -2.0-3.0 (test code = 387) PATIENT TEMPERATURE (BEAKER) 37.5 C (test code = 1818) FIO2 (BEAKER) (test code = 1819) 21.0 % POCT-GLUCOSE [id number] 00:41:00 Test Item Value Reference Range Interpretation Comments POC-GLUCOSE METER 237 mg/dL 70-110 H TESTED AT [facility] 6720 ([facility]) (test code = [facility] [place] 1538) [id number] TROPONIN [id number] 00:28:00 Test Item Value Reference Range Interpretation Comments TROPONIN I (BEAKER) (test code = 1.65 ng/mL 0.00-0.03 HH 397) Troponin I (TnI) levels must be interpreted [...] acute neurological disease, and persistent tachyarrhythmia.COMPREHENSIVE METABOLIC [id number] 00:24:00 Test Item Value Reference Range Interpretation Comments TOTAL PROTEIN 6.4 gm/dL 6.0-8.3 (BEAKER) (test code = 770) ALBUMIN (BEAKER) 3.6 g/dL 3.5-5.0 (test code = 1145) ALKALINE PHOSPHATASE 75 U/L 40-150 (BEAKER) (test code = 346) BILIRUBIN TOTAL 0.5 mg/dL 0.2-1.2 (BEAKER) (test code = 377) SODIUM (BEAKER) (test 133 meq/L 136-145 L code = 381) POTASSIUM (BEAKER) 5.7 meq/L 3.5-5.1 H (test code = 379) CHLORIDE (BEAKER) 99 meq/L 98-107 (test code = 382) CO2 (BEAKER) (test 25 meq/L 22-29 code = 355) BLOOD UREA NITROGEN 33 mg/dL 7-21 H (BEAKER) (test code = 354) CREATININE (BEAKER) 6.92 mg/dL 0.57-1.25 H (test code = 358) GLUCOSE RANDOM 234 mg/dL 70-105 H (BEAKER) (test code = 652) CALCIUM (BEAKER) 9.1 mg/dL 8.4-10.2 (test code = 697) AST (SGOT) (BEAKER) 15 U/L 5-34 (test code = 353) ALT (SGPT) (BEAKER) 17 U/L 6-55 (test code = 347) EGFR (BEAKER) (test 8 mL/min/1.73 ESTIMAT ED GFR IS code = 1092) sq m NOT ACCURATE CREATININE CLEARANCE IN PREDICTING GLOMERULAR FILTRATION RATE . ESTIMATED GFR I S NOT APPLICABLE FOR DIALYSIS PATIEN TS. [id number] 00:21:00 Test Item Value Reference Range Interpretation Comments MAGNESIUM (BEAKER) (test code = 2.0 mg/dL 1.6-2.6 627) LACTIC ACID, [id number] 00:16:00 Test Item Value Reference Range Interpretation Comments LACTATE BLOOD ARTERIAL (2) 1.3 mmol/L 0.5-2.2 (BEAKER) (test code = 2874) BLOOD GAS, [id number] 23:54:00 Test Item Value Reference Range Interpretation Comments PH ARTERIAL (BEAKER) (test code = 7.32 7.35-7.45 L 383) PCO2 ARTERIAL (BEAKER) (test code 51 mmHg 35-45 H = 384) PO2 ARTERIAL (BEAKER) (test code 133 mmHg 80-90 H = 385) O2 SATURATION ARTERIAL (BEAKER) 98.4 % 96.0-97.0 H (test code = 386) HCO3 ARTERIAL (BEAKER) (test code 26 mmol/L 21-29 = 388) BASE EXCESS ARTERIAL (BEAKER) -0.3 mmol/L -2.0-3.0 (test code = 387) PATIENT TEMPERATURE (BEAKER) 37.0 C (test code = 1818) FIO2 (BEAKER) (test code = 1819) 40.0 % RAD, CHEST, 1 VIEW, NON [id number] 22:24:00Reason for exam:- >hypotensionShould this be performed at the bedside?->YesFINAL REPORT Chest dated 01/03/2019 Clinical Information: hypotension Comment:Heart is enlarged. Pulmonary vasculature is indistinct. Interstitial disease is seen bilaterally suggestive of vascular congestion. Endotracheal tube is present. A curvilinear radiopaque density is seen in the mid upper chest. Please correlate clinically. Signed: Yuridia Wallace MDReport Verified Date/Time: 01/03/2019 22:24:07 Reading Location: [address] Consult Reading Room BASI METABOLIC [id number] 22:08:00 Test Item Value Reference Range Interpretation Comments SODIUM (BEAKER) 136 meq/L 136-145 (test code = 381) POTASSIUM (BEAKER) 5.2 meq/L 3.5-5.1 H Specimen slightly (test code = 379) hemolyzed CHLORIDE (BEAKER) 104 meq/L 98-107 (test code = 382) CO2 (BEAKER) (test 22 meq/L 22-29 code = 355) BLOOD UREA NITROGEN 27 mg/dL 7-21 H (BEAKER) (test code = 354) CREATININE (BEAKER) 5.82 mg/dL 0.57-1.25 H Specimen slightly (test code = 358) hemolyzed GLUCOSE RANDOM 220 mg/dL 70-105 H (BEAKER) (test code = 652) CALCIUM (BEAKER) 8.0 mg/dL 8.4-10.2 L (test code = 697) EGFR (BEAKER) (test 10 mL/min/1.73 ESTIMA ERUM GFR IS code = 1092) sq m NOT ACCURATE CREATININE CLEARANCE IN PREDICTING GLOMERULAR FILTRATION RATE . ESTIMATED GFR I S NOT APPLICABLE FOR DIALYSIS PATIEN TS. [id number] 22:07:00 Test Item Value Reference Range Interpretation Comments MAGNESIUM (BEAKER) 2.0 mg/dL 1.6-2.6 Specimen slightly (test code = 627) hemolyzed [id number] 22:07:00 Test Item Value Reference Range Interpretation Comments PHOSPHORUS (BEAKER) 5.1 mg/dL 2.3-4.7 H Specimen slightly (test code = 604) hemolyzed POTASSIUM-STAT [id number] 21:42:00 Test Item Value Reference Range Interpretation Comments POTASSIUM (BEAKER) (test code = 4.7 meq/L 3.6-5.5 379) GLUCOSE-STAT [id number] 21:42:00 Test Item Value Reference Range Interpretation Comments GLUCOSE RANDOM (BEAKER) (test code 205 mg/dL 70-110 H = 652) SODIUM NA-STAT [id number] 21:42:00 Test Item Value Reference Range Interpretation Comments SODIUM (BEAKER) (test code = 381) 134 meq/L 135-148 L HGB/HCT (H&H) - STAT [id number] 21:42:00 Test Item Value Reference Range Interpretation Comments HEMOGLOBIN (BEAKER) (test code = 8.3 g/dL 13.0-16.8 L 410) HEMATOCRIT (BEAKER) (test code = 24.0 % 40.0-50.0 L 411) [id number] 21:34:00 Test Item Value Reference Range Interpretation Comments PROTIME (BEAKER) (test code = 54.5 seconds 11.7-14.7 H 759) INR (BEAKER) (test code = 370) 6.6 <=5.9 HH PARTIAL THROMBOPLASTIN TIME 116.0 seconds 22.5-36.0 H (BEAKER) (test code = 760) RECOMMENDED COUMADIN/WARFARIN INR THERAPY RANGESSTANDARD DOSE: 2.0 - 3.0 Includes: PROPHYLAXIS forvenous thrombosis, systemic embolization; TREATMENT for venous thrombosis and/or pulmonary embolus.HIGH RISK: Target INR is 2.5-3.5 for patients with mechanical heart valves.LACTIC ACID, [id number] 21:27:00 Test Item Value Reference Range Interpretation Comments LACTATE BLOOD VENOUS 1.7 mmol/L 0.5-2.2 Specime n moderately (2) (BEAKER) (test hemolyzed code = 6968) CBC W/PLT COUNT & AUTO [id number] 21:16:00 Test Item Value Reference Range Interpretation Comments WHITE BLOOD CELL COUNT (BEAKER) 13.2 K/ L 3.5-10.5 H (test code = 775) RED BLOOD CELL COUNT (BEAKER) 2.96 M/ L 4.63-6.08 L (test code = 761) HEMOGLOBIN (BEAKER) (test code = 9.5 GM/DL 13.7-17.5 L 410) HEMATOCRIT (BEAKER) (test code = 29.8 % 40.1-51.0 L 411) MEAN CORPUSCULAR VOLUME (BEAKER) 100.7 fL 79.0-92.2 H (test code = 753) MEAN CORPUSCULAR HEMOGLOBIN 32.1 pg 25.7-32.2 (BEAKER) (test code = 751) MEAN CORPUSCULAR HEMOGLOBIN CONC 31.9 GM/DL 32.3-36.5 L (BEAKER) (test code = 752) RED CELL DISTRIBUTION WIDTH 14.6 % 11.6-14.4 H (BEAKER) (test code = 412) PLATELET COUNT (BEAKER) (test 188 K/CU MM 150-450 code = 756) MEAN PLATELET VOLUME (BEAKER) 12.2 fL 9.4-12.4 (test code = 754) NUCLEATED RED BLOOD CELLS 0 /100 WBC 0-0 (BEAKER) (test code = 413) NEUTROPHILS RELATIVE PERCENT 74 % (BEAKER) (test code = 429) LYMPHOCYTES RELATIVE PERCENT 14 % (BEAKER) (test code = 430) MONOCYTES RELATIVE PERCENT 11 % (BEAKER) (test code = 431) EOSINOPHILS RELATIVE PERCENT 0 % (BEAKER) (test code = 432) BASOPHILS RELATIVE PERCENT 0 % (BEAKER) (test code = 437) NEUTROPHILS ABSOLUTE COUNT 9.78 K/ L 1.78-5.38 H (BEAKER) (test code = 670) LYMPHOCYTES ABSOLUTE COUNT 1.81 K/ L 1.32-3.57 (BEAKER) (test code = 414) MONOCYTES ABSOLUTE COUNT (BEAKER) 1.46 K/ L 0.30-0.82 H (test code = 415) EOSINOPHILS ABSOLUTE COUNT 0.01 K/ L 0.04-0.54 L (BEAKER) (test code = 416) BASOPHILS ABSOLUTE COUNT (BEAKER) 0.04 K/ L 0.01-0.08 (test code = 417) IMMATURE GRANULOCYTES-RELATIVE 1 % 0-1 PERCENT (BEAKER) (test code = 2801) BLOOD GAS, [id number] 21:03:00 Test Item Value Reference Range Interpretation Comments PH ARTERIAL (BEAKER) (test code = 7.34 7.35-7.45 L 383) PCO2 ARTERIAL (BEAKER) (test code 49 mmHg 35-45 H = 384) PO2 ARTERIAL (BEAKER) (test code 102 mmHg 80-90 H = 385) O2 SATURATION ARTERIAL (BEAKER) 97.3 % 96.0-97.0 H (test code = 386) HCO3 ARTERIAL (BEAKER) (test code 25 mmol/L 21-29 = 388) BASE EXCESS ARTERIAL (BEAKER) -0.8 mmol/L -2.0-3.0 (test code = 387) PATIENT TEMPERATURE (BEAKER) 37.0 C (test code = 1818) FIO2 (BEAKER) (test code = 1819) 40.0 % [id number] 18:33:00 Test Item Value Reference Range Interpretation Comments ACTIVATED CLOTTING TIME 384 sec TEST ED AT [facility] 6720 (BEAKER) (test code = [place] [address]) [id number] PROTHROMBIN [id number] 14:04:00 Test Item Value Reference Range Interpretation Comments PROTIME (BEAKER) (test code = 14.3 seconds 11.7-14.7 759) INR (BEAKER) (test code = 370) 1.2 <=5.9 RECOMMENDED COUMADIN/WARFARIN INR THERAPY RANGESSTANDARD DOSE: 2.0 - 3.0 Includes: PROPHYLAXIS forvenous thrombosis, systemic embolization; TREATMENT for venous thrombosis and/or pulmonary embolus.HIGH RISK: Target INR is 2.5-3.5 for patients with mechanical heart valves.CBC W/PLT COUNT & AUTO DIFFERENTIAL 2019-01-03 14:00:00 Test Item Value Reference Range Interpretation Comments WHITE BLOOD CELL COUNT (BEAKER) 15.0 K/ L 3.5-10.5 H (test code = 775) RED BLOOD CELL COUNT (BEAKER) 3.01 M/ L 4.63-6.08 L (test code = 761) HEMOGLOBIN (BEAKER) (test code = 9.7 GM/DL 13.7-17.5 L 410) HEMATOCRIT (BEAKER) (test code = 30.3 % 40.1-51.0 L 411) MEAN CORPUSCULAR VOLUME (BEAKER) 100.7 fL 79.0-92.2 H (test code = 753) MEAN CORPUSCULAR HEMOGLOBIN 32.2 pg 25.7-32.2 (BEAKER) (test code = 751) MEAN CORPUSCULAR HEMOGLOBIN CONC 32.0 GM/DL 32.3-36.5 L (BEAKER) (test code = 752) RED CELL DISTRIBUTION WIDTH 14.6 % 11.6-14.4 H (BEAKER) (test code = 412) PLATELET COUNT (BEAKER) (test 196 K/CU MM 150-450 code = 756) MEAN PLATELET VOLUME (BEAKER) 12.4 fL 9.4-12.4 (test code = 754) NUCLEATED RED BLOOD CELLS 0 /100 WBC 0-0 (BEAKER) (test code = 413) NEUTROPHILS RELATIVE PERCENT 82 % (BEAKER) (test code = 429) LYMPHOCYTES RELATIVE PERCENT 7 % (BEAKER) (test code = 430) MONOCYTES RELATIVE PERCENT 10 % (BEAKER) (test code = 431) EOSINOPHILS RELATIVE PERCENT 0 % (BEAKER) (test code = 432) BASOPHILS RELATIVE PERCENT 0 % (BEAKER) (test code = 437) NEUTROPHILS ABSOLUTE COUNT 12.24 K/ L 1.78-5.38 H (BEAKER) (test code = 670) LYMPHOCYTES ABSOLUTE COUNT 1.10 K/ L 1.32-3.57 L (BEAKER) (test code = 414) MONOCYTES ABSOLUTE COUNT (BEAKER) 1.43 K/ L 0.30-0.82 H (test code = 415) EOSINOPHILS ABSOLUTE COUNT 0.01 K/ L 0.04-0.54 L (BEAKER) (test code = 416) BASOPHILS ABSOLUTE COUNT (BEAKER) 0.06 K/ L 0.01-0.08 (test code = 417) IMMATURE GRANULOCYTES-RELATIVE 1 % 0-1 PERCENT (BEAKER) (test code = 2801) TROPONIN [id number] 12:20:00 Test Item Value Reference Range Interpretation Comments TROPONIN I (BEAKER) (test code = 397) < ng/mL 0.00-0.03 Troponin I (TnI) levels [...] acute neurological disease, and persistent tachyarrhythmia.COMPREHENSIVE METABOLIC [id number] 12:15:00 Test Item Value Reference Range Interpretation Comments TOTAL PROTEIN 7.0 gm/dL 6.0-8.3 (BEAKER) (test code = 770) ALBUMIN (BEAKER) 4.1 g/dL 3.5-5.0 (test code = 1145) ALKALINE PHOSPHATASE 85 U/L 40-150 (BEAKER) (test code = 346) BILIRUBIN TOTAL 0.5 mg/dL 0.2-1.2 (BEAKER) (test code = 377) SODIUM (BEAKER) (test 138 meq/L 136-145 code = 381) POTASSIUM (BEAKER) 5.4 meq/L 3.5-5.1 H (test code = 379) CHLORIDE (BEAKER) 101 meq/L 98-107 (test code = 382) CO2 (BEAKER) (test 24 meq/L 22-29 code = 355) BLOOD UREA NITROGEN 24 mg/dL 7-21 H (BEAKER) (test code = 354) CREATININE (BEAKER) 5.83 mg/dL 0.57-1.25 H (test code = 358) GLUCOSE RANDOM 213 mg/dL 70-105 H (BEAKER) (test code = 652) CALCIUM (BEAKER) 9.4 mg/dL 8.4-10.2 (test code = 697) AST (SGOT) (BEAKER) 16 U/L 5-34 (test code = 353) ALT (SGPT) ([facility]) 23 U/L 6-55 (test code = 347) EGFR ([facility]) (test 10 mL/min/1.73 ESTIMA ERUM GFR IS code = 1092) sq m NOT ACCURATE CREATININE CLEARANCE IN PREDICTING GLOMERULAR FILTRATION RATE . ESTIMATED GFR I S NOT APPLICABLE FOR DIALYSIS PATIEN TS. LIPID [id number] 12:13:00 Test Item Value Reference Range Interpretation Comments TR[facility]IDES [facility] (test code = 158 mg/dL 540) CHOLESTEROL ([facility]) (test code = 113 mg/dL 631) HDL CHOLESTEROL ([facility]) (test code 34 mg/dL = 976) LDL CHOLESTEROL CALCULATED ([facility]) 47 mg/dL (test code = 633) Triglyceride Reference Range: Low Risk <150 Borderline 150-199 High Risk 200-499 Very High Risk >=500Cholesterol Reference Range: Low Risk <200 Borderline 200-239 High Risk >240HDL Cholesterol Reference Range: Low Risk >=60 High Risk <40LDL Cholesterol Reference Range: Optimal <100 Near Optimal 100-129 Borderline 130-159 High 160-189 Very High >=190POCT-GLUCOSE [id number] 11:26:00 Test Item Value Reference Range Interpretation Comments POC-GLUCOSE METER 291 mg/dL 70-110 H TESTED AT [facility] 67[address] ([facility]) (test code = [place] [address]38) [id number]
--- OUTSIDE RECORDS SUMMARY | 2020-06-29 17:31 | XMS REPORT | Summary of Care ---
:1950 Author Organization [facility] [place] [address] Care Team Providers Name Role Phone MD Gabriel Unavailable Reason for Referral Radiology Services (Emergency) Status Reason Specialty Diagnoses / Referred By Contact Refe rred To Procedures Contact Pending Cardiology Diagnoses Pericardial effusion Gabbie Copeland PA-C Procedures ECHO LIMITED [address] [phone] Phone: Reason for Visit Reason Comments Cardiology Follow-up Encounter Details Date Type Department Care Team Description 06/23/2020 Office Visit [facility] Agustin Rios MD Cardiology Follow-up Medicine Cardiology [id number] [place] [address] 6th Floor, [address] [phone] [place] [address] Allergies Active Allergy Reactions Severity Noted Date Comments Sulfamethoxazole-Trimethopri Dermatitis Low 01/30/2020 m Tetracyclines & Related Dermatitis High 01/30/2020 whel ps on his back N/V, hospitalized documented as of this encounter (statuses as of 06/23/2020) Medications Medication Sig Dispensed Refills Start Date End Date Status insulin glargine Inject 40 Units 0 Active (LANTUS) 100 UNIT/ML into the skin injection nightly. [place]-3 Fatty Acids Take 1 mg by 0 Active (OMEGA-3 FISH OIL OR) mouth daily. montelukast Take 10 mg by 0 Acti ve (SINGULAIR) 10 MG mouth daily. tablet gabapentin (NEURONTIN) Take 300 mg by 0 Active 300 MG capsule mouth 3 times daily. Cholecalciferol Take 50,000 mg by 0 Active (VITAMIN D3) 01961 mouth daily. units CAPS Sevelamer Carbonate Take 800 mg by 0 Active 800 MG TABS mouth daily. docusate sodium Take 100 mg by 0 Active (COLACE) 100 MG mouth two times capsule daily. linaCLOtide (LINZESS) Take 72 mg by 0 Active 72 MCG CAPS mouth daily. Polyethylene Glycol Take 17 mg by 0 Active 3350 (MIRALAX OR) mouth daily. baclofen (LIORESAL) 10 Take 10 mg by 0 Active MG tablet mouth 3 times daily. hydrocodone-acetaminop Take 15 mL by 0 Active hen (HYCET) 7.5-325 mouth 4 times MG/15ML solution daily as needed. pantoprazole Take 40 mg by 0 Act meaghan (PROTONIX) 40 MG mouth daily. tablet Melatonin 3 MG TABS Take 3 mg by 0 Active mouth nightly. aspirin EC 81 MG Take 81 mg by 0 11/07/2019 11/07/19 21 Active tablet mouth. B Pfjdyjf-A-Qcatl Acid TAKE 1 TABLET BY 0 11/28/2019 Active (CARMEN-MARJORIE) TABS MOUTH ONCE DAILY lidocaine-prilocaine APPLY A SMALL 0 11/04/2019 Active (EMLA) 2.5-2.5 % cream AMOUNT TO SKIN THREE TIMES A WEEK BD INSULIN SYRINGE U/F 0 12/01/2019 Active 30G X 1/2" 0.5 ML MISC fexofenadine (JULISSA) Take 180 mg by 0 Active 180 MG tablet mouth. NOVOLOG 100 UNIT/ML 0 11/27/2019 Active injection warfarin (COUMADIN) 5 Take 1 Tab by 90 Tab 3 01/30/2020 Active MG tabletIndications: mouth daily. Atrial fibrillation, unspecified type (HCCode), S/P CABG (coronary artery bypass graft), Coronary artery disease involving curyung coronary artery of curyung heart with angina pectoris (HCCode) amitriptyline (ELAVIL) Take 1 Tab by 0 06/05/2018 Active 25 MG tablet mouth daily. rosuvastatin (CRESTOR) Take 10 mg by 0 Active 10 MG tablet mouth daily. warfarin (COUMADIN) Take one tablet 90 Tab 3 02/14/2020 Active 7.5 MG by mouth daily or tabletIndications: as directed by Atrial fibrillation, physician unspecified type (HCCode) midodrine (PROAMATINE) Take 1 tablet by 90 Tab 3 06/23/2020 Active 5 MG mouth before tabletIndications: dialysis. You may Syncope, unspecified take an syncope type, Dizzy additional dose in the evenings (total twice a day) also. documented as of this encounter (statuses as of 06/23/2020) Active Problems Not on filedocumented as of this encounter (statuses as of 06/23/2020) Social History Tobacco Use Types Packs/Day Years Used Date Never Smoker Smokeless Tobacco: Never Used Sex Assigned at Date Recorded Not on file COVID-19 Exposure Response Date Recorded In the last month, have you been in contact with No / Unsure 06/19/2020 11:28 PM CDT someone who was confirmed or suspected to have Coronavirus / COVID-19? documented as of this encounter Last Filed Vital Signs Vital Sign Reading Time Taken Comments Blood Pressure 110/66 06/23/2020 1:50 PM CDT Pulse 94 06/23/2020 1:50 PM CDT Temperature - - Respiratory Rate 16 06/23/2020 1:50 PM CDT Oxygen Saturation 97% 06/23/2020 1:50 PM CDT Inhaled Oxygen Concentration - - Weight 132.5 kg (292 lb) 06/23/2020 1:50 PM CDT Height 182.9 cm (6') 06/23/2020 1:50 PM CDT Body Mass Index 39.6 06/23/2020 1:50 PM CDT documented in this encounter Patient Instructions Patient InstructionsGabbie Copeland PA-C - 06/23/2020 1:40 PM CDTGood to see you today in clinic with Dr. Agustin Rios. Thank you for choosing [facility]. As discussed with Dr Rios, here is our plan for further testing and medications: 1. Script for Midodrine 5 mg has been sent. You may take this before dialysis days. You may also take one extra tablet in the evenings as needed. 2. Schedule limited echo at your convenience. 3. We will transfer your [employer] pacemaker reports to our device clinic. We will refer you to one of our electrophysiologists as well. Follow up with Dr Rios in clinic in 3 months. Please call me/ send me a message via my chart if you have any further questions. If you are needinga sooner appointment with Dr. Rios for urgent issues please give me a call or ask to speak to me if needed. Tracy Rosenberg [facility] String Cutter and Gabbie Copeland PA-C (Cece) Physician Hotel Recreational Facilities Manager to Agustin Rios MD, F.A.C.C, [email or web address] Fleet Director, [facility] Department of Medicine Section of Cardiology Interventional Concrete Rubber Director, Cardiovascular Disease Fellowship Program Office contact information: P: or P: [employer] website & Phone # [email or web address] documented in this encounter Progress Notes Agustin Rios MD - 06/23/2020 1:40 PM CDT Interventional Cardiology Clinic Note Chief Complaint Cardiology Follow-up History of Presenting Illness Shelli Mireles is a 69 y.o. male here for his hospital follow up. He has a PMH of ESRD dialyzes QM/W/F, had recent unstable angina with PCI on 01/03/2019 CARROLL x3 to LAD, Chronic Afib on Eliquis, H/o PE, DM Type II, HTN, HLD, and CHRIS on CPAP. He came back to the ER with dyspnea and hypotensionwith echo showing enlarged pericardial effusion with tamponade physiology vs large left sided pleural effusion. S/p pericardiocentesis on 01/18 with 650cc removed. S/p thoracentesis on 01/19 with 1L removed. Doing better now. He does notice some elevated blood pressures at home. Most numbers are stable.Compliant with medications. No bleeding or bruising on Plavix and low dose Eliquis. No chest pain. Limited Echo done 02/14/19 showed resolution of pericardial effusion. He has no chest pain. Clinic Visit 01/30/2020: Here for follow up after recent admission 10/22/2019 to [facility] for chest pain.He was found to have multivessel CAD, now S/p CABG x3 and PFO closure on 10/28/2019 that was complicated by difficult intubation where he remained in CV ICU post ACB for post operative respiratory failure. Intra-op notable for severe pericardial adhesions, clots vs vegetations attached to PPM leads while on Eliquis 2.5mg BID. Clots removed, sent for culture and negative for growth. Today in clinic, patient reports persistent and constant numbness, tension and "stretching" of his left chest. He is concerned about the clots attached to PPM while on Eliquis and wonders if there is natalie aggressive therapy. He continues to take Eliquis 2.5mg BID and ASA 81mg. No bleeding or bruising issues. Home blood pressures have been stable, roughly 120s to 130s systolic and 80s to 90s diastolic. He continues to increase his spirometer use at home up to 2L volume. Recent trauma of left leg hitting against bed frame led to formation of three small superficial wounds. This visit 06/23/2020: Here for follow up. No chest pain, dyspnea - stable. He still feels chest neuropathic/ chest tightness over the incision site. This is stable. He has been using Midodrine prior to dialysis days. He makes a little amount of urine, ~ 4oz. Tolerating the Warfarin, his access will bleed slightly more on dialysis days. Requesting refill of Midodrine. The previous distal small superficial leg wounds healed. Dark pigmentation suggestive of venous stasis is seen, LLE > RLE. Review of Systems Review of Systems Neurological: Positive for numbness. All other systems reviewed and are negative. Past Medical History Past Medical History: Diagnosis Date CAD (coronary artery disease) Hypertension Past Surgical History No past surgical history on file. Family History No family history on file. Current Outpatient Medications Current Outpatient Medications Medication Sig Dispense Refill amitriptyline (ELAVIL) 25 MG tablet Take 1 Tab by mouth daily. aspirin EC 81 MG tablet Take 81 mg by mouth. B Truljoy-X-Zqxfz Acid (CARMEN-MARJORIE) TABS TAKE 1 TABLET BY MOUTH ONCE DAILY baclofen (LIORESAL) 10 MG tablet Take 10 mg by mouth 3 times daily. BD INSULIN SYRINGE U/F 30G X 1/2" 0.5 ML MISC Cholecalciferol (VITAMIN D3) 57128 units CAPS Take 50,000 mg by mouth daily. docusate sodium (COLACE) 100 MG capsule Take 100 mg by mouth two times daily. fexofenadine (JULISSA) 180 MG tablet Take 180 mg by mouth. gabapentin (NEURONTIN) 300 MG capsule Take 300 mg by mouth 3 times daily. hydrocodone-acetaminophen (HYCET) 7.5-325 MG/15ML solution Take 15 mL by mouth 4 times daily as needed. insulin glargine (LANTUS) 100 UNIT/ML injection Inject 40 Units into the skin nightly. lidocaine-prilocaine (EMLA) 2.5-2.5 % cream APPLY A SMALL AMOUNT TO SKIN THREE TIMES A WEEK linaCLOtide (LINZESS) 72 MCG CAPS Take 72 mg by mouth daily. Melatonin 3 MG TABS Take 3 mg by mouth nightly. midodrine (PROAMATINE) 5 MG tablet Take 1 tablet by mouth before dialysis. You may take an additional dose in the evenings (total twice a day) also. 90 Tab 3 montelukast (SINGULAIR) 10 MG tablet Take 10 mg by mouth daily. NOVOLOG 100 UNIT/ML injection [place]-3 Fatty Acids (OMEGA-3 FISH OIL OR) Take 1 mg by mouth daily. pantoprazole (PROTONIX) 40 MG tablet Take 40 mg by mouth daily. Polyethylene Glycol 3350 (MIRALAX OR) Take 17 mg by mouth daily. rosuvastatin (CRESTOR) 10 MG tablet Take 10 mg by mouth daily. Sevelamer Carbonate 800 MG TABS Take 800 mg by mouth daily. warfarin (COUMADIN) 5 MG tablet Take 1 Tab by mouth daily. 90 Tab 3 warfarin (COUMADIN) 7.5 MG tablet Take one tablet by mouth daily or as directed by physician 90 Tab 3 No current facility-administered medications for this visit. Allergies Allergies Allergen Reactions Tetracyclines & Related Dermatitis whelps on his back N/V, hospitalized Bactrim [Sulfamethoxazole-Trimethoprim] Dermatitis Social History Social History Tobacco Use Smoking Status Never Smoker Smokeless Tobacco Never Used Social History Substance and Sexual Activity Alcohol Use None Social History Substance and Sexual Activity Drug Use Not on file Social History Substance and Sexual Activity Sexual Activity Not on file Physical Examination Vitals: Vital Signs Height: 6' (182.9 cm) Weight - Scale: 292 lb (132.5 kg) Pulse: 94 Respirations: 16 BP: 110/66 BP Location: right arm Height and Weight BSA (Calculated - sq m): 2.59 sq meters BMI (Calculated): 39.7 Predicted Body Weight: 171.08 Layin/50 HR 77 Sittin/58 HR 80 Standin/40 HR 81 Physical Exam Constitutional: He appears healthy. No distress. HENT: Mouth/Throat: Oropharynx is clear. Eyes: Pupils are equal, round, and reactive to light. Neck: Normal range of motion and thyroid normal. Cardiovascular: Normal rate, regular rhythm, S1 normal, S2 normal, normal heart sounds and normal pulses. Exam reveals no S3 and no S4. No murmur heard. Pulmonary/Chest: Effort normal and breath sounds normal. He has no wheezes. He has no rales. He exhibits no tenderness. Sternotomy scar healed well; no surrounding erythema or pain elicited upon palpation. Abdominal: Soft. Bowel sounds are normal. Musculoskeletal: Normal range of motion. Neurological: He is alert and oriented to person, place, and time. He has normal motor skills. Gait normal. Skin: Skin is warm and dry. No jaundice. Three circular, superficial wounds with clear drainage and the fatty layer exposed present over the distal anterior left tibia. Surrounding diffuse erythema present. Laboratory Data Lab Results Component Value Date WBC 10.9 (H) 04/15/2019 HGB 9.1 (L) 10/29/2019 HCT 27.0 (L) 10/29/2019 MCV 97.1 (H) 04/15/2019 PLT 205 04/15/2019 Lab Results Component Value Date NA 136 04/15/2019 Lab Results Component Value Date K 6.3 (HH) 04/15/2019 Lab Results Component Value Date BUN 43 (H) 04/15/2019 Lab Results Component Value Date CREATININE 5.78 (H) 04/15/2019 Lab Results Component Value Date ALT 17 01/03/2019 AST 15 01/03/2019 ALKPHOS 75 01/03/2019 BILITOT 0.5 01/03/2019 Lab Results Component Value Date CHOL 113 01/03/2019 HDL 34 01/03/2019 TRIG 158 01/03/2019 EKG (01/30/2020): Sinus Rhythm -First degree A-V block Ozzy = 262 -Right bundle branch block with left axis -bifascicular block. ABNORMAL Op Note by Agustin Rios MD at 01/03/2019 6:56 PM Author: Agustin Rios MD Author Type: Physician Filed: 01/03/2019 7:08 PM Note Status: Signed Cosign: Cosign Not Required Dairy Technician: Agustin Rios MD (Physician) Left Heart Catheterization with PCI PATIENT: Ritika Mireles, MR#: [id number], : 1950 Date of procedure: 01/03/2019 Pre-Procedure Diagnosis: Unstable Angina Post-Procedure Diagnosis: Critical Proximal and Mid-LAD stenosis, PCI LAD with CARROLL x3 Procedure performed: 1) Left Heart Catheterization (LHC) 2) Selective Coronary Angiography (SCA) 3) LV pressures without Ventriculogram. 4) Percutaneous coronary intervention of the left anterior descending 5) Insertion of Closure Device Fine Dining Server: Agustin Rios MD Hotel Recreational Facilities Manager: none Anesthesia Used: local 2% lidocaine and conscious sedation Estimated Blood Loss: <30 mL Condition: stable IV Contrast Used: 325 mL Complications: none Implants/grafts: see procedure summary Specimens: None Classification: Urgent CAD presentation: Unstable angina Chest pain classification: CCS lV: Angina with any minimal activity or at rest Last ejection fraction: >60pct HF Classification: ll Antianginal Therapy: Beta Blockers and Nitrates Non-invasive stress test available in chart: None Duration of Symptoms: 12 - 24 hours Thrombolytics: No Evidence of Failed Reperfusion: No ACS Symptoms: persistent ischemic symptoms SEFERINO Risk Factors: age > 65, Aspirin use within 7 days and severe angina Procedure (Diagnostic): The procedure was described to the patient including benefits, risks, and alternatives to the procedure. The patient confirmed understanding. The patient signed the informed consent. He was brought into the collaborating supervising physician. The bilateral groins were prepped in a sterile fashion, and asterile drape was placed over the patient. The right common femoral artery (CLASSROOM INSTRUCTIONAL AIDE) was palpated and the region above the artery was anesthetized with 2% local lidocaine. Using the modified Seldinger Technique vascular access was obtained to the right CLASSROOM INSTRUCTIONAL AIDE whereby a 5 Estonian sheath was placed without difficulty. A 5 Fr diagnostic JL4 was advanced over a J-tipped wire to the ascending aorta. The J wire was removed, the catheter aspirated to ensure no air was in the system and flushed in the usual fashion. The diagnostic catheter engaged the left main coronary artery without difficulty. Pictures of the left coronary system were taken in several various orthogonal angles. The diagnostic catheter used for the left coronary was subsequently removed over the J wire and a 5 Fr diagnostic 3DRC was advanced over a J-tipped wire to the ascending aorta.The J wire was removed, the catheter aspirated to ensure no air was in the system and flushed in the usual fashion. The diagnostic catheter engaged the right coronary artery without difficulty. Pictures of the right coronary system were taken in several various orthogonal angles. The diagnostic RCA catheter was removed from the descending aorta over a J wire. A ventriculogram was not performed. A 5 pigtail catheter was placed over the wire and guided into the left ventricle. The J wire was removed, the catheter aspirated to ensure no air was in the system and flushed in the usual fashion. Left ventricular pressures were 100/18 with an LVEDP of 24. The catheter was then pulled back across theaortic valve and there was not a significant gradient across the valve. The pigtail catheter was then removed from the descending aorta over a J wire. After Reviewing the images, coronary intervention was deemed necessary. Procedure (Intervention): The 5 Fr. Sheath was exchanged out for a 6 Fr. Sheath. Anticoagulation with bivalirudin was initiated. An ACT was performed to ensure adminstration of the Bivalirdin. ACTs were performed and adjustments in anticoagulation were made as necessary. A 6 Fr guiding catheter XB 3.5 was advanced over a J-tipped wired to the ascending aorta. The J-tipped wire was removed and the catheter was aspirated to ensure no air was in the system. The catheter was then flushed in the usual manner. The guiding catheterwas then seated into the ostium of the left main A 0.014" Whisper wire was inserted into the guidingcatheter and advanced into the coronary artery and passed the target lesion. A second Whisper wire was advanced and positioned in the diagonal branch. Angiography revealed no significant trauma or complication from wire crossing. A Emerge 2.5 x 15mm balloon was advanced over the wire to the target lesion and inflated. Post dilation angiograms were taken to access patency and residual stenosis. Stent advancement was difficult despite of a Guideliner and serial ballooning with 2.5 x 20mm balloon. At this time, patient was restless and was moving all extremities. We decided to secure airway and intubated the patient with the help of CV anesthesia. At this time, we exchanged the XB 3.5Fr guide over the coronary wire with an AL1 6Fr guide. At this time, we were subsequently three coronary stents (SYNERGY 2.75 x 16mm, 3.0 x 28mm and 3.5 x 12mm) were deployed in overlapping fashion. At this time, diagonal wire was removed (earlier) and re-crossed. A 2.0 x 12mm balloon (SYNERGY) was used to dilate the ostium of the Diagonal branch that was jailed. Final Angiography revealed adequate stent expansion with no evidence of dissection or distal embolization. There was SEFERINO III flow distally. At this point the intervention was deemed successful and the procedure completed. The wire and balloon were removed from the coronary artery. The guiding catheter was disengaged from the coronary artery and removed from the body over the J-tip guidewire. Angiography of the CLASSROOM INSTRUCTIONAL AIDE was performed without evidence of dissection, thrombus or perforation. Therefore the access was deemed acceptable for a closure device. A AngioSeal was subsequently deployed without complication. The patient was sent to the holding area in stable condition. The patient was hemodynamically stable throughout the entirety of the procedure. Post OP Findings: Hemodynamics LVEDP - 24mmHg Left Main Minimal diffuse plaquing in the left main. LAD Proximal to mid-LAD has 80-90% diffuse stenosis. Successful PCI with CARROLL x 3. Pre-PCI SEFERINO III, 90%, Type C Post-PCI SEFERINO III, 0% residual LCx No angiographic CAD RCA 30-40% proximal RCA stenosis, large vessel. Ramus No angiographic CAD Plan: 1. Transfer the patient to ICU overnight for ventilator management. 2. Plan to extubate in the morning. 3. Antiplatelet therapy will be initiatedin the form of Brilinta and aspirin. 4. Patient was offered single vessel QIU to LAD, however, he did not want to pursue CABG at this time. Given single vessel disease, proceed with PCI of LAD. Agustin Rios MD 01/03/2019 6:56 PM [facility] 10/28/2019: AV: trileaflet morphology, No aortic stenosis, central trace aortic regurgitation LV: normal chamber size , mild LVH,Mildly reduced systolic function (EF 45-50 % by ryan's), Diskinetic septal wall due to ventricular pacing, apical hypokinesis. No other RWMA, no thrombus MV: normal morphology, mild mitral regurgitation ( VC .2, EROA 0.1 cm ), No mitral stenosis LA: no AMANDA thrombus, normal size and function PV: limited visualization RV: sized chamber, normal function, no thrombus TV: normal morphology, trace tricuspid regurgitation RA: no thrombus PFO by color dopper flow ( L-> R) All findings communicated to surgical team. ASSESSMENT AND PLAN Ritika Mireles is a 69 y.o. male here for his hospital follow up. He has a PMH of ESRD dialyzesQM/W/F, had recent unstable angina with PCI on 01/03/2019 CARROLL x3 to LAD, Chronic Afib on Eliquis, H/o PE, DM Type II, HTN, HLD, and CHRIS on CPAP. He came back to the ER with dyspnea and hypotension with echo showing enlarged pericardial effusion with tamponade physiology vs large left sided pleural effusion. S/p pericardiocentesis on 01/18 with 650cc removed. S/p thoracentesis on 01/19 with 1L removed. Doing better now. He does notice some elevated blood pressures at home. Most numbers are stable. Compliant with medications. No bleeding or bruising on Plavix and low dose Eliquis. No chest pain. LimitedEcho done 02/14/19 showed resolution of pericardial effusion. He has no chest pain. Clinic Visit 01/30/2020: Here for follow up after recent admission 10/22/2019 to [facility] for chest pain.He was found to have multivessel CAD, now S/p CABG x3 and PFO closure on 10/28/2019 that was complicated by difficult intubation where he remained in CV ICU post ACB for post operative respiratory failure. Intra-op notable for severe pericardial adhesions, clots vs vegetations attached to PPM leads while on Eliquis 2.5mg BID. Clots removed, sent for culture and negative for growth. Today in clinic, patient reports persistent and constant numbness, tension and "stretching" of his left chest. He is concerned about the clots attached to PPM while on Eliquis and wonders if there is natalie aggressive therapy. He continues to take Eliquis 2.5mg BID and ASA 81mg. No bleeding or bruising issues. Home blood pressures have been stable, roughly 120s to 130s systolic and 80s to 90s diastolic. He continues to increase his spirometer use at home up to 2L volume. Recent trauma of left leg hitting against bed frame led to formation of three small superficial wounds. This visit 06/23/2020: Here for follow up. No chest pain, dyspnea - stable. He still feels chest neuropathic/ chest tightness over the incision site. This is stable. He has been using Midodrine prior to dialysis days. He makes a little amount of urine, ~ 4oz. Tolerating the Warfarin, his access will bleed slightly more on dialysis days. Requesting refill of Midodrine. The previous distal small superficial leg wounds healed. Dark pigmentation suggestive of venous stasis is seen, LLE > RLE. 1. CAD S/p PCI LAD x3 CARROLL 01/03/19; S/p CABG x3 and PFO closure 10/28/2019. -Discussed options for alternative anticoagulant therapy such as Eliquis (Hx Afib) vs. Coumadin as patient experienced intra-op severe pericardial adhesions and clots attached to PPM leads while takingEliquis. -On Warfarin, INR 2.2 on 06/19/2020. Goal 2.0 - 2.5. Following with Hanane CLAYTON. -Continue ASA 81mg daily. 2. TTE 10/2019 - All of the LV segments contract normally . Estimated LVEF by qualitative assessment is normal (>60%) 3. HTN - Continue daily blood pressure monitoring and logs. 4. HLD - Continue Crestor 10mg. 5. S/p MDT dual chamber PPM 04/29/2019 - transfer to our device clinic. Refer to EP; they prefer - Dr Perry. RTC in 3-6 months. I have seen, examined the patient, and reviewed all collected findings such as EKGs, labs, echocardiogram reports, hospital records with my supervising physician Dr. Agustin Rios. Dr. Agustin Rios has also seen, examined and spent >50% of this 50 minute appointment discussing all collected findings, providing activities counselor and coordination of care with the patient in appropriate detail. Shelli Mireles declared understanding. Gabbie (Frankie Copeland PA-C Physician [employer] Manager [facility] Dept - Medicine | [facility] ICD-10-CM 1. 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 Syncope, unspecified syncope type R55 3. Dizzy R42 4. Pericardial effusion I31.3 5. Cardiac pacemaker in situ Z95.0 6. S/P CABG (coronary artery bypass graft) Z95.1 7. Essential hypertension I10 I was present for this entire encounter and have interviewed and examined the patient, Shelli Mireles . I concur with the assessment and recommendations as per MARTINE Copeland. documented in this encounter Plan of Treatment Date Type Specialty Care Team Description 07/09/2020 Ancillary Procedure Cardiology Name Type Priority Associated Diagnoses Order S chedule ECHO LIMITED Cardiac Services STAT Pericardial effusion Exp ected: 06/23/2020, Expires: 2020 Health Maintenance Due Date Last Done Comments COLON CANCER SCREENING: COLONOSCOPY 1950 TETANUS SHOT (ADULT) 1966 BMI FOLLOW UP PLAN 1969 HEPATITIS C SCREENING 1969 ZOSTER VACCINE (1 of 2) 2001 MEDICARE AWV (Initial) 08/04/2016 FALL SCREEN 2016 PNEUMOVAX >=65 (PPSV23) 2016 FLU VACCINE > 6 MONTHS 04/04/2020 documented as of this encounter Results Not on filedocumented in this encounter Visit Diagnoses Diagnosis Atherosclerosis of curyung coronary arter y of curyung heart with angina pectoris (HCCode) - Primary Syncope, unspecified syncope type Dizzy Dizziness and giddiness Pericardial effusion Unspecified disease of pericardium Cardiac pacemaker in situ S/P CABG (coronary artery bypass graft) Postsurgical aortocoronary bypass status Essential hypertension Unspecified essential hypertension documented in this encounter Insurance Payer Benefit Plan / Subscriber ID Effective Phone Address T ype Group Dates MEDICARE MEDICARE PART A [id number] 2016-Pres [address] - MEDICARE ent [id number] [place] [address] [place] [employer] MEDICARE [id number] 2018-Prese [address] [address] Medicare [place] [address] documented as of this encounter
[2020-06-29] MEDS ORDERED: LIDOCAINE 1% 20 ML MDV ONE (17:40)
[2020-06-29 18:29] LABS: Absolute Lymphocytes (CBC) 1.9 K/uL (0.7-4.9); Basophils % 1.3 % (0-1.3); Hematocrit 32.7 % (39.6-49.0); MPV 9.4 fL (7.6-11.3); RBC Red Blood Cell Count 3.16 M/uL (4.33-5.43)
[2020-06-29 18:38] LABS: Protime INR 2.05
[2020-06-29] MEDS ORDERED: NA CHLORIDE 0.9% 250 ML ONE (18:47)
[2020-06-29 18:50] LABS: Potassium 4.5 mmol/L (3.5-5.1)
--- NOTE | 2020-06-29 18:51 | EDPHYS ---
Physician Documentation [facility] Name: Shelli Mireles Age: 69 yrs Sex: Male : 1950 Arrival Date: 06/29/2020 Time: 17:18 Bed 20 Private MD: TUSHAR Physician Alf Munguia HPI: 06/29 17:29 This 69 yrs old Male presents to ER via Unassigned with complaints of jr8 bleeding from fistula in L arm. 17:29 The patient c/o bleeding from fistula in L upper arm. The patient states that after his jr8 dialysis today, he believes that the nurse cut his artery when removing the needle. Reports that they could not stop the bleeding post dialysis after attempting to for an hour. His dialysis finished at 2:30. He has kept a clamp with pressure on it since. The patient takes Coumadin daily, but has not taken a dose today. Denies pain, dizziness, syncope, or any other symptoms.. Historical: - Allergies: 17:34 Bactrim; bp 17:34 Demerol; bp 17:34 Ibuprofen; bp 17:34 Sulfa (Sulfonamide Antibiotics); bp 17:34 TETRACYCLINES; bp - PMHx: 17:34 Cardiac Stents x3; Diabetes - IDDM; diabetic retinopathy; Dialysis (started 03/20/17); bp High Cholesterol; Hypertension; PE; RENAL FAILURE; - Immunization history:: Adult Immunizations up to date. - Social history:: Smoking status: Patient denies any tobacco usage or history of. ROS: 18:45 Eyes: Negative for injury, pain, redness, and discharge, ENT: Negative for injury, jr8 pain, and discharge, Neck: Negative for injury, pain, and swelling, Cardiovascular: Negative for chest pain, palpitations, and edema, Respiratory: Negative for shortness of breath, cough, wheezing, and pleuritic chest pain, Abdomen/GI: Negative for abdominal pain, nausea, vomiting, diarrhea, and constipation, Back: Negative for injury and pain, MS/Extremity: Negative for injury and deformity, Skin: Negative for injury, rash, and discoloration, Neuro: Negative for headache, weakness, numbness, tingling, and seizure. Exam: 18:45 Constitutional: This is a well developed, well nourished patient who is awake, alert, jr8 and in no acute distress. Cardiovascular: Regular rate and rhythm with a normal S1 and S2. No gallops, murmurs, or rubs. Normal PMI, no JVD. No pulse deficits. Respiratory: Lungs have equal breath sounds bilaterally, clear to auscultation and percussion. No rales, rhonchi or wheezes noted. No increased work of breathing, no retractions or nasal flaring. Abdomen/GI: Soft, non-tender, with normal bowel sounds. No distension or tympany. No guarding or rebound. No evidence of tenderness throughout. Back: No spinal tenderness. No costovertebral tenderness. Full range of motion. Skin: Warm, dry with normal turgor. Normal color with no rashes, no lesions, and no evidence of cellulitis. Arterial fistula bleeding noted to left AV fistula Neuro: Awake and alert, GCS 15, oriented to person, place, time, and situation. Cranial nerves II-XII grossly intact. Motor strength 5/5 in all extremities. Sensory grossly intact. Cerebellar exam normal. Normal gait. 18:45 MS/ Extremity: Pulses equal, no cyanosis. Neurovascular intact. Full, normal range of motion. Vital Signs: 17:32 Pulse 98; Resp 16; Temp 98; Pulse Ox 98% ; bp 18:18 BP 86 / 46; Pulse 84; Resp 17; Pulse Ox 95% ; bp 18:45 BP 126 / 57; Pulse 81; Resp 16; Pulse Ox 97% ; bp 19:09 BP 123 / 57; Pulse 84; Resp 18; Pulse Ox 98% on R/A; mg2 20:20 BP 140 / 55; Pulse 83; Resp 18; Pulse Ox 96% on R/A; mg2 Laceration: 18:45 Wound Repair of .2cm ( 0.1in ) subcutaneous laceration to left bicep. Arterial bleeding jr8 noted.. Distal neuro/vascular/tendon intact. Wound prep: Simple cleansing with betadine. Skin closed with 1 4-0 Prolene using Figure of eight suture . Patient tolerated well. MDM: 17:25 Patient medically screened. pm1 18:45 Data reviewed: vital signs, nurses notes, lab test result(s). Data interpreted: Pulse jr8 oximetry: on room air is 97 %. Interpretation: normal. Counseling: I had a detailed discussion with the patient and/or guardian regarding: the historical points, exam findings, and any diagnostic results supporting the discharge/admit diagnosis, lab results, the need to transfer to another facility, [facility] does not immediately have the required specialist. ED course: Talked with Dr. Woo with patients vascular team. Agreed fistula needed to be looked at and observed overnight. Accepted by a Dr. Boland at [facility]. Dr. Clement to see him with [facility]. 06/29 17:50 Order name: CBC with Diff; Complete Time: 18:37 jr8 06/29 17:50 Order name: Basic Metabolic Panel; Complete Time: 18:53 jr8 06/29 17:50 Order name: Protime (+inr); Complete Time: 18:50 jr8 06/29 17:50 Order name: Ptt, Activated; Complete Time: 18:50 jr8 Administered Medications: 19:09 Not Given (Physician Discretion): NS 0.9% 250 ml IV at bolus once mg2 Disposition: 06/30 08:01 Co-signature as Attending Physician, Alf Munguia MD I agree with the assessment and whitney plan of care. Disposition: 06/29/20 18:50 Transfer ordered to Other Acute Care Facility. Diagnosis is Arterial Dialysis Fistula Bleed . - Reason for transfer: Higher level of care. - Accepting physician is Dr. Boland . - Condition is Stable. - Problem is new. - Symptoms have improved. Signatures: Dispatcher [employer] EDAlf Loving MD MD cha Roszak, Josh, PA PA jr8 Vu Bhat, MAILS SUPERVISOR MAILS SUPERVISOR pm1 Jonathan Correa RN RN Gilbert Giles RN RN mg2 Corrections: (The following items were deleted from the chart) 06/29 20:46 18:50 06/29/2020 18:50 Transfer ordered to Other Acute Care Facility. Diagnosis is mg2 Arterial Dialysis Fistula Bleed . Reason for transfer: Higher level of care. Accepting physician is Dr. Boland . Condition is Stable. Problem is new. Symptoms have improved. jr8
--- NOTE | 2020-06-29 18:51 | ER ---
Nurse's Notes [facility] Name: Shelli Mireles Age: 69 yrs Sex: Male : 1950 Arrival Date: 06/29/2020 Time: 17:18 Bed 20 Private MD: Diagnosis: Arterial Dialysis Fistula Bleed Presentation: 06/29 17:32 Chief complaint: Patient states: SENT FROM [facility] FOR FISTULA BLEEDING. Coronavirus bp screen: At this time, the client does not indicate any symptoms associated with coronavirus-19. Ebola Screen: No symptoms or risks identified at this time. Initial Sepsis Screen: Does the patient meet any 2 criteria? HR > 90 bpm. No. Patient's initial sepsis screen is negative. Does the patient have a suspected source of infection? No. Patient's initial sepsis screen is negative. Risk Assessment: Do you want to hurt yourself or someone else? Patient reports no desire to harm self or others. Onset of symptoms is unknown. 17:32 Method Of Arrival: Ambulatory bp 17:32 Acuity: MICHELLE 2 bp Triage Assessment: 17:34 General: Appears distressed, uncomfortable, obese, Behavior is cooperative, appropriate bp for age, anxious. Pain: Complains of pain in left bicep. EENT: No deficits noted. Neuro: Level of Consciousness is awake, alert, obeys commands, Oriented to person, place, time, situation, Appropriate for age. Cardiovascular: Rhythm is sinus rhythm. Respiratory: No deficits noted. GI: No signs and/or symptoms were reported involving the gastrointestinal system. : No signs and/or symptoms were reported regarding the genitourinary system. Derm: No deficits noted. Musculoskeletal: No deficits noted. Injury Description: Puncture sustained to left bicep is ARTERIAL. Historical: - Allergies: 17:34 Bactrim; bp 17:34 Demerol; bp 17:34 Ibuprofen; bp 17:34 Sulfa (Sulfonamide Antibiotics); bp 17:34 TETRACYCLINES; bp - PMHx: 17:34 Cardiac Stents x3; Diabetes - IDDM; diabetic retinopathy; Dialysis (started 03/20/17); bp High Cholesterol; Hypertension; PE; RENAL FAILURE; - Immunization history:: Adult Immunizations up to date. - Social history:: Smoking status: Patient denies any tobacco usage or history of. Screenin:36 Abuse screen: Denies threats or abuse. Denies injuries from another. Nutritional bp screening: No deficits noted. Tuberculosis screening: No symptoms or risk factors identified. Fall Risk None identified. Assessment: 17:36 General: SEE TRIAGE NOTE. bp 17:37 Reassessment: PROVIDER AT B/S FOR LIGATION OF BLEED. bp 18:22 Reassessment: Patient appears in no apparent distress at this time. BLEEDING CONTROLLED bp WITH SUTURE LIGATION. AWAITING RESPONSE FROM PT NEPHROLOGY Patient states feeling better. Patient states symptoms have improved. 18:45 Reassessment: PT NOW NORMO-TENSIVE, PROVIDER NOTIFIED AND IVF HELD. bp 19:05 Reassessment: REPORT TO [facility], TRANSPORT PENDING. bp 19:17 Reassessment: patient has 1 stitch made by the provider in the AV fistula. mg2 19:51 Reassessment: patient awaiting for ambulance transfer. mg2 20:20 Reassessment: Patient appears in no apparent distress at this time. Patient is alert, mg2 oriented x 3, equal unlabored respirations, skin warm/dry/pink. 20:45 Reassessment: report given to [facility]. patient in good condition. IV intact. mg2 Vital Signs: 17:32 Pulse 98; Resp 16; Temp 98; Pulse Ox 98% ; bp 18:18 BP 86 / 46; Pulse 84; Resp 17; Pulse Ox 95% ; bp 18:45 BP 126 / 57; Pulse 81; Resp 16; Pulse Ox 97% ; bp 19:09 BP 123 / 57; Pulse 84; Resp 18; Pulse Ox 98% on R/A; mg2 20:20 BP 140 / 55; Pulse 83; Resp 18; Pulse Ox 96% on R/A; mg2 ED Course: 17:18 Patient arrived in ED. as 17:24 Vu Bhat NP is PHCP. pm1 17:25 Alf Munguia MD is Attending Physician. pm1 17:26 PHCP role handed off by Vu Bhat NP jr8 17:26 Ignacio Gonsalves PA is PHCP. jr8 17:32 Jonathan Correa, FORREST is Primary Nurse. bp 17:33 Triage completed. bp 17:34 Arm band placed on. bp 17:36 Patient has correct armband on for positive identification. Bed in low position. Call bp light in reach. Side rails up X2. Adult w/ patient. 18:15 Inserted saline lock: 22 gauge in right forearm, using aseptic technique. Blood bp collected. 18:54 initiated transfer to [facility], accepted by Dr Santos, admin approval bd give by Ang. 19:09 No provider procedures requiring assistance completed. Patient transferred, IV remains mg2 in place. 19:30 Primary Nurse role handed off by Jonathan Correa, RN mw2 19:51 Gilbert Grey, RN is Primary Nurse. mg2 Administered Medications: 19:09 Not Given (Physician Discretion): NS 0.9% 250 ml IV at bolus once mg2 Outcome: 18:50 ER care complete, transfer ordered by MD. millan 20:45 Transferred by ground EMS to other acute care facility: [place] . X-rays sent w/ mg2 patient. 20:45 Condition: stable 20:45 Instructed on the need for transfer, Demonstrated understanding of instructions. 20:46 Patient left the ED. mg2 Signatures: Magnolia Mccray Amelia as Roszak, Josh, PA PA jr8 Vu Bhat, LI TELEGRAPH INSTALLER pm1 Jonathan Correa, RN RN Italia Becerra mw2 Gilbert Grey, RN RN mg2
[2020-06-29 21:20] VITALS: TEMP 98
[2020-06-29 22:59] VITALS: BP 140/55; O2SAT 96
== END 2020-06-29 20:46 ==
LOC: ER 17:17
PROC: 0JQF0ZZ Repair Left Upper Arm Subcutaneous Tissue and Fascia, Open Approach (ICD-10-PCS; principal; 2020-06-29)
DX: T82.838A Hemorrhage due to vascular prosthetic devices, implants and grafts, initial encounter (principal); I12.0 Hypertensive chronic kidney disease with stage 5 chronic kidney disease or end stage renal disease; N18.6 End stage renal disease; Z95.818 Presence of other cardiac implants and grafts; Z88.2 Allergy status to sulfonamides; Z88.3 Allergy status to other anti-infective agents; Z88.5 Allergy status to narcotic agent; Z88.6 Allergy status to analgesic agent
CPT/HCPCS: 85025; 80048; 36415; 85610; 85730; 99285; 12001; J7050

== ENCOUNTER 2022-01-15 00:32 | Emergency (ER) | payer OTHER, MEDICARE ==
--- OUTSIDE RECORDS SUMMARY | 2022-01-15 00:46 | XMS REPORT | Continuity of Care Document ---
:1950 Author Organization [facility] t Address [address] [place] [address] Care Team Providers Name Role Phone Nicola MAURICE Primary Care Physician Unavailable JORGE Attending Clinician Unavailable Jorge FARR Attending Clinician JORGE Attending Clinician Unavailable KEV Attending Clinician Unavailable JOSE DAVID DOSS Attending Clinician Unavailable Andie BAIN Attending Clinician Unavailable Omari YEPEZ Attending Clinician Unavailable TESSIE Attending Clinician Unavailable EVARISTO BANUELOS Attending Clinician Unavailable AYAZ Admitting Clinician Unavailable GRAHAM CORDON Admitting Clinician Unavailable RADAMES LOPEZ Admitting Clinician Unavailable JOSE DAVID ESTES Admitting Clinician Unavailable JOSEE Admitting Clinician Unavailable EVARISTO BANUELOS Admitting Clinician Unavailable Payers Payer Name Policy Type Policy Number Effective Date Expiration Date S peri MEDICARE PART A \\[id number]\\ [id number] 2016 B - MEDICARE 00:00:00 [facility] MEDIC[facility] [id number] 2018 SUPPLEMENT PLAN - 00:00:00 [facility] Problems This patient has no known problems. Allergies, Adverse Reactions, Alerts Allergy Allergy Status Severity Reaction(s) Onset Inactive Treating Comm ents Source Name Type Date Date Clinician Sulfa DA Active U 2019-1 [facility] (Sulfona 0-27 [facility] HIVES 2019-1 [facility] (Sulfona 0-27 Clear mide 00:00: [facility] tetracyc DA Active U 2019-09 [facility] line 0-26 Clear 00:00: Gibson 00 [facility] tetracyc DA Active U HIVES 2019-09 [facility] line 0-26 Clear 00:00: Gibson 00 [facility] Sulfamet Propensi Active Dermatitis [facility] hoxazole ty to 01-29 [facility] -[employer] adverse 00:00: of oprim reaction 00 Medicin s to e drug Tetracyc Propensi Active Dermatitis 2019- whelps on [facility] lines & ty to 01-29 his back College Related adverse 00:00: N/V, of reaction 00 hospitali Medic in s to zed e drug SEASONAL Allergy Active Other [facility] SULFA Allergy Active Hives [facility] ANTIBIOT 00 Center ICS) TETRACYC Allergy Active Low Rash [facility] Social History Social Habit Start Date Stop Date Quantity Comments Source Exposure to Not sure [facility] SARS-CoV-2 of Medicine (event) Tobacco use and 2019-02-14 2019-02-14 Smokeless tobacco [facility] or [facility] exposure 00:00:00 00:00:00 non-user of Medicine Sex Ass[birth year] [facility] 00:00:00 00:00:00 of Medicine Smoking Status Start Date Stop Date Source Never smoked tobacco [facility] of Medicine Medications Ordered Filled Start Stop Current Ordering Indication Dosage Frequency Signature Comments Components Source Medication Medication Date Date Medication? Clinician (SIG) Name Name sertraline Yes 25mg Take 25 mg [facility] (ZOLOFT) 25 2-15 by mouth [facility] MG tablet 09:52: daily. of 04 Medicin e insulin Yes 40U Inject 40 [facility] glargine 2-15 Units into Colle ge (LANTUS) 09:46: the skin of 100 UNIT/ML 56 nightly. Medi darci injection e [place]-3 Yes 1mg Take 1 mg [facility] Fatty Acids 2-15 by mouth [facility] (OMEGA-3 09:46: daily. of FISH OIL 56 Medicin OR) e gabapentin 0 Yes 300mg Take 300 [facility] (NEURONTIN) 2-15 mg by [place] 300 MG 09:46: mouth 3 of capsule 56 times Medicin daily. e Cholecalcif 0 Yes [id number] Take [place] radha karoline 2-15 50,000 mg [place] (VITAMIN 09:46: by mouth of D3) [id number] 56 daily. Medicin units CAPS e Sevelamer 0 Yes 800mg Take 800 [place] rad[facility] Carbonate 2-15 mg by [place] 800 MG TABS 09:46: mouth of 56 daily. Medicin e Polyethylen 0 Yes 17mg Take 17 mg [facility] e Glycol 2-15 by mouth [place] 3350 09:46: daily. of (MIRALAX 56 Medicin OR) e docusate 0 Yes 100mg Take 100 [facility]l or sodium 2-15 mg by [place] (COLACE) 09:46: mouth two of 100 MG 56 times Medicin capsule daily. e Aspirin 81 0 Yes 81mg Take 81 mg [facility] MG tablet 2-15 by mouth Colleg e 09:46: once. of 56 Medicin e Cyanocobala 0 Yes Take by [facility] min (B-12) 2-15 mouth [place] 1000 MCG 09:46: daily. of TABS 56 Medicin e promethazin 0 Yes 25mg Take 25 mg [facility] e 2-15 by mouth [place] (PHENERGAN) 09:46: every 6 of 25 MG 56 hours as Medicin tablet needed. e Fluticasone 0 Yes by Nasal [facility] Propionate 2-15 route. [place] (FLONASE 09:46: of ALLERGY 56 Medicin RELIEF NA) e warfarin 0 Yes [id number] 5mg Take 1 [facility] (COUMADIN) 2-15 Tablet by [facility] 5 MG tablet 00:00: mouth of 00 daily. Medicin e Ranolazine 0 Yes 500mg Take 500 [facility] (RANEXA) 2-15 mg by [place] 500 MG TB12 00:00: mouth two o f 00 times Medicin daily. e Ranolazine 2021-0 2021- No 500mg Take 500 [facility] (RANEXA) 215 02-15 mg by [place] 500 MG TB12 00:00: 00:00 mouth two of 00 :00 times Medicin daily. e rosuvastati 2020-09 No 10mg Take 10 mg [facility] n (CRESTOR) 10-06 by mouth [facility] 10 MG 12:36: 00:00 daily. of tablet 59 :00 Medicin e carvedilol 2020-09- No 25mg Take 25 mg [facility] (COREG) 25 10-06 by mouth 2 Co llege MG tablet 12:36: 00:00 times of 59 :00 daily Medicin (with e meals). isosorbide 2020-09 No 60mg Take 60 mg [facility] mononitrate 10-06 by mouth [facility] (IMDUR) 60 12:36: 00:00 every of MG CR 59 :00 morning. Medicin tablet e Fluticasone 2020-09 Yes by Nasal ylor Propionate 10-06 route. [place] (FLONASE 12:05: of ALLERGY 57 Medicin RELIEF NA) e Polyethylen 2020-09 Yes 17mg Take 17 mg [facility] e Glycol 10-06 by mouth [place] 3350 12:05: daily. of (MIRALAX 07 Medicin OR) e Aspirin 81 2020-09 Yes 81mg Take 81 mg [facility] MG tablet 10-06 by mouth Colleg e 12:05: once. of 07 Medicin e Cyanocobala 2020-09 Yes Take by Ba surjitor min (B-12) 10-06 mouth [place] 1000 MCG 12:05: daily. of TABS 07 Medicin e promethazin 2020-09 Yes 25mg Take 25 mg [facility] e 10-06 by mouth [place] (PHENERGAN) 12:05: every 6 of 25 MG 07 hours as Medicin tablet needed. e fexofenadin 2020-09 No 180mg Take 180 [facility] e (JULISSA) 10-06 1202 mg by Colleg e 180 MG 12:04: 00:00 mouth. of tablet 47 :00 Medicin e montelukast 2020-09 No 10mg Take 10 mg [facility] (SINGULAIR) 10-06 by mouth [facility] 10 MG 12:04: 00:00 daily. of tablet 41 :00 Medicin e insulin 2020-09 Yes 40U Inject 40 [facility] glargine 2-02 Units into [facility] (LANTUS) 12:01: the skin of 100 UNIT/ML 38 nightly. Medi darci injection e [place]-3 2020-09 Yes 1mg Take 1 mg [facility] Fatty Acids 2-02 by mouth [facility] (OMEGA-3 12:01: daily. of FISH OIL 38 Medicin OR) e gabapentin 2020-09 Yes 300mg Take 300 [facility] (NEURONTIN) 2-02 mg by [place] 300 MG 12:01: mouth 3 of capsule 38 times Medicin daily. e Cholecalcif 2020-09 Yes [id number] Take [place] radha karoline 2-02 50,000 mg [place] (VITAMIN 12:01: by mouth of D3) [id number] 38 daily. Medicin units CAPS e Sevelamer 2020-09 Yes 800mg Take 800 [place] rad[facility] Carbonate 2-02 mg by [place] 800 MG TABS 12:01: mouth of 38 daily. Medicin e docusate 2020-09 Yes 100mg Take 100 [facility] or sodium 2-02 mg by [place] (COLACE) 12:01: mouth two of 100 MG 38 times Medicin capsule daily. e hydrocodone 2020-09- 15mL Take 15 mL [facility] -acetaminop 2-02 12-02 by mouth 4 [facility] hen (HYCET) 12:01: 00:00 times of 7.5-325 21 :00 daily as Medicin MG/15ML needed. e solution carvedilol 2020-09 Yes [id number] 25mg Take 1 [facility] (COREG) 25 2-02 Tablet by [facility] MG tablet 00:00: mouth 2 of 00 times Medicin daily e (with meals). isosorbide 2020-09 Yes [id number] 60mg Take 1 [facility] mononitrate 2-02 Tablet by [facility] (IMDUR) 60 00:00: mouth of MG CR 00 every Medicin tablet morning. e losartan 2020-09 Yes [id number] 50mg Take 1 [facility] (COZAAR) 50 2-02 Tablet by [facility] MG tablet 00:00: mouth of 00 daily. Medicin e rosuvastati 2020-09 Yes [id number] 10mg Take 1 [facility] n (CRESTOR) 2-02 Tablet by [facility] 10 MG 00:00: mouth of tablet 00 daily. Medicin e warfarin 2020-09 Yes [id number] 5mg Take 1 [facility] (COUMADIN) 2-02 Tablet by [facility] 5 MG tablet 00:00: mouth of 00 daily. Medicin e warfarin 2020-09 Yes [id number] Take one [facility] (COUMADIN) 2-02 tablet by [facility] 7.5 MG 00:00: mouth of tablet 00 daily or Medicin as e directed by physician carvedilol 2020-09 Yes [id number] 25mg Take 1 [facility] (COREG) 25 2-02 Tablet by [facility] MG tablet 00:00: mouth 2 of 00 times Medicin daily e (with meals). isosorbide 2020-09 Yes [id number] 60mg Take 1 [facility] mononitrate 2-02 Tablet by [facility] (IMDUR) 60 00:00: mouth of MG CR 00 every Medicin tablet morning. e losartan 2020-09 Yes [id number] 50mg Take 1 [facility] (COZAAR) 50 2-02 Tablet by [facility] MG tablet 00:00: mouth of 00 daily. Medicin e rosuvastati 2020-09 Yes [id number] 10mg Take 1 [facility] n (CRESTOR) 2-02 Tablet by [facility] 10 MG 00:00: mouth of tablet 00 daily. Medicin e warfarin 2020-09 Yes [id number] Take one [facility] (COUMADIN) 2-02 tablet by [facility] 7.5 MG 00:00: mouth of tablet 00 daily or Medicin as e directed by physician warfarin 2020-09- No [id number] 5mg Take 1 [facility] (COUMADIN) 2-02 02-15 Tablet by [facility] 5 MG tablet 00:00: 00:00 mouth of 00 :00 daily. Medicin e hydrocodone 2020-09 Yes [facility] -acetaminop 09-12 [place] hen (NORCO) 00:00: of 7.5-325 MG 00 Medicin per tablet e hydrocodone 2020-09 Yes [place] -acetaminop 09-12 [place] hen (NORCO) 00:00: of 7.5-325 MG 00 Medicin per tablet e losartan 2020- No [id number] 100mg Take 1 [facility] (COZAAR) 06-03 Tablet by [facility]le [facility] 100 MG 00:00: 00:00 mouth of tablet 00 :00 daily. Medicin e warfarin 2020- No [id number] 5mg Take 1 [facility] (COUMADIN) 04-02 Tablet by [facility] 5 MG tablet 00:00: 00:00 mouth of 00 :00 daily. Medicin e Enoxaparin 2020- No [id number] Inject [facility] Sodium 03-03 once every Colleg e (LOVENOX) 00:00: 00:00 12 hours of 120 00 :00 subcutaneo Medicin MG/0.8ML usly for 3 e N days while off warfarin for planned procedure. metoprolol 2020- No 25mg Take 25 mg [facility] (TOPROL-XL) 4-15 04-15 by mouth [facility] 25 MG XL 18:10: 00:00 daily. of tablet 12 :00 Medicin e insulin Yes 40U Inject 40 [facility] glargine 4-15 Units into [facility]le [facility] (LANTUS) 17:24: the skin of 100 UNIT/ML 39 nightly. Medi darci injection e [place]-3 Yes 1mg Take 1 mg [facility] Fatty Acids 4-15 by mouth [facility] (OMEGA-3 17:24: daily. of FISH OIL 39 Medicin OR) e montelukast Yes 10mg Take 10 mg [facility] (SINGULAIR) 4-15 by mouth [facility] 10 MG 17:24: daily. of tablet 39 Medicin e gabapentin Yes 300mg Take 300 [facility] (NEURONTIN) 4-15 mg by [place] 300 MG 17:24: mouth 3 of capsule 39 times Medicin daily. e Cholecalcif Yes [id number] Take [place] radha karoline 4-15 50,000 mg College (VITAMIN 17:24: by mouth of D3) [id number] 39 daily. Medicin units CAPS e Sevelamer Yes 800mg Take 800 [place] [facility] Carbonate 4-15 mg by [facility] 800 MG TABS 17:24: mouth of 39 daily. Medicin e Polyethylen Yes 17mg Take 17 mg [facility] e Glycol 4-15 by mouth [place] 3350 17:24: daily. of (MIRALAX 39 Medicin OR) e hydrocodone Yes 15mL Take 15 mL [facility] -acetaminop 4-15 by mouth 4 Co [facility] hen (HYCET) 17:24: times of 7.5-325 39 daily as Medicin MG/15ML needed. e solution fexofenadin Yes 180mg Take 180 [facility] e (JULISSA) 4-15 mg by [place] 180 MG 17:24: mouth. of tablet 39 Medicin e rosuvastati Yes 10mg Take 10 mg [facility] n (CRESTOR) 4-15 by mouth [facility] 10 MG 17:24: daily. of tablet 39 Medicin e insulin Yes 40U Inject 40 [facility] r glargine 4-15 Units into [facility] (LANTUS) 17:24: the skin of 100 UNIT/ML 39 nightly. Medi darci injection e [place]-3 Yes 1mg Take 1 mg [facility] Fatty Acids 4-15 by mouth [facility] (OMEGA-3 17:24: daily. of FISH OIL 39 Medicin OR) e montelukast Yes 10mg Take 10 mg [facility] (SINGULAIR) 4-15 by mouth [facility] 10 MG 17:24: daily. of tablet 39 Medicin e gabapentin Yes 300mg Take 300 [facility] (NEURONTIN) 4-15 mg by [place] 300 MG 17:24: mouth 3 of capsule 39 times Medicin daily. e Cholecalcif Yes [id number] Take [place] radha karoline 4-15 50,000 mg [place] (VITAMIN 17:24: by mouth of D3) [id number] 39 daily. Medicin units CAPS e Sevelamer Yes 800mg Take 800 [place] rad[facility] Carbonate 4-15 mg by [place] 800 MG TABS 17:24: mouth of 39 daily. Medicin e Polyethylen Yes 17mg Take 17 mg [facility] e Glycol 4-15 by mouth [place] 3350 17:24: daily. of (MIRALAX 39 Medicin OR) e hydrocodone 2021-0 Yes 15mL Take 15 mL [facility] -acetaminop 4-15 by mouth 4 Co [facility]lege hen (HYCET) 17:24: times of 7.5-325 39 daily as Medicin MG/15ML needed. e solution fexofenadin Yes 180mg Take 180 [facility] e (JULISSA) 4-15 mg by [place] 180 MG 17:24: mouth. of tablet 39 Medicin e rosuvastati Yes 10mg Take 10 mg [facility] n (CRESTOR) 4-15 by mouth [facility] 10 MG 17:24: daily. of tablet 39 Medicin e docusate Yes 100mg Take 100 [facility] or sodium 4-15 mg by [place] (COLACE) 17:24: mouth two of 100 MG 39 times Medicin capsule daily. e Aspirin 81 Yes 81mg Take 81 mg [facility] MG tablet 4-15 by mouth Colleg e 17:24: once. of 39 Medicin e Cyanocobala Yes Take by Ender conklin min (B-12) 4-15 mouth [place] 1000 MCG 17:24: daily. of TABS 39 Medicin e promethazin Yes 25mg Take 25 mg [facility] e 4-15 by mouth [place] (PHENERGAN) 17:24: every 6 of 25 MG 39 hours as Medicin tablet needed. e metoprolol Yes [id number] 25mg Take 1 [facility] (TOPROL-XL) 4-[address] [facility] leg 25 MG XL 00:00: mouth of tablet 00 daily. Medicin e Ranolazine Yes [id number] 500mg Take 500 [facility] (RANEXA) 4-15 mg by [place] 500 MG TB12 00:00: mouth two o f 00 times Medicin daily. e insulin 2019-09 Yes 40U Inject 40 [facility] glargine 0-20 Units into [facility] (LANTUS) 18:55: the skin of 100 UNIT/ML 09 nightly. Medi darci injection e [place]-3 2019-09 Yes 1mg Take 1 mg [facility] Fatty Acids 0-20 by mouth [facility] (OMEGA-3 18:55: daily. of FISH OIL 09 Medicin OR) e montelukast 2019-09 Yes 10mg Take 10 mg [facility] (SINGULAIR) 0-20 by mouth [facility] 10 MG 18:55: daily. of tablet 09 Medicin e gabapentin 2019-09 Yes 300mg Take 300 [facility] (NEURONTIN) 0-20 mg by [place] 300 MG 18:55: mouth 3 of capsule 09 times Medicin daily. e Cholecalcif 2019-09 Yes [id number] Take [place] radha karoline 0-20 50,000 mg [place] (VITAMIN 18:55: by mouth of D3) [id number] 09 daily. Medicin units CAPS e Sevelamer 2019-09 Yes 800mg Take 800 [place] rad[facility] Carbonate 0-20 mg by [place] 800 MG TABS 18:55: mouth of 09 daily. Medicin e Polyethylen 2019-09 Yes 17mg Take 17 mg [facility] e Glycol 0-20 by mouth [place] 3350 18:55: daily. of (MIRALAX 09 Medicin OR) e hydrocodone 2019-09 Yes 15mL Take 15 mL [facility] -acetaminop 0-20 by mouth 4 Co [facility] hen (HYCET) 18:55: times of 7.5-325 09 daily as Medicin MG/15ML needed. e solution fexofenadin 2019-09 Yes 180mg Take 180 [facility] e (JULISSA) 0-20 mg by [place] 180 MG 18:55: mouth. of tablet 09 Medicin e rosuvastati 2019-09 Yes 10mg Take 10 mg [facility] n (CRESTOR) 0-20 by mouth [facility] 10 MG 18:55: daily. of tablet 09 Medicin e midodrine 2019-09 Yes [id number] Take 1 [facility] (PROAMATINE 0-20 tablet by [facility] ) 5 MG 00:00: mouth of tablet 00 before Medicin dialysis. e You may take an additional dose in the evenings (total twice a day) also. midodrine 2019-09 Yes [id number] Take 1 [facility] (PROAMATINE 0-20 tablet by [facility] ) 5 MG 00:00: mouth of tablet 00 before Medicin dialysis. e You may take an additional dose in the evenings (total twice a day) also. midodrine 2019-09 Yes [id number] Take 1 [facility] (PROAMATINE 0-20 tablet by [facility] ) 5 MG 00:00: mouth of tablet 00 before Medicin dialysis. e You may take an additional dose in the evenings (total twice a day) also. midodrine 2019-09 Yes [id number] Take 1 [facility] (PROAMATINE 0-20 tablet by [facility] ) 5 MG 00:00: mouth of tablet 00 before Medicin dialysis. e You may take an additional dose in the evenings (total twice a day) also. midodrine 2019-09 Yes [id number] Take 1 [facility] (PROAMATINE 0-20 tablet by [facility] ) 5 MG 00:00: mouth of tablet 00 before Medicin dialysis. e You may take an additional dose in the evenings (total twice a day) also. warfarin 2019- Yes [id number] Take one [facility] (COUMADIN) 6-12 tablet by [facility] 7.5 MG 00:00: mouth of tablet 00 daily or Medicin as e directed by physician warfarin 2019- Yes [id number] Take one [facility] (COUMADIN) 6-12 tablet by [facility] 7.5 MG 00:00: mouth of tablet 00 daily or Medicin as e directed by physician warfarin 2019-0 Yes [id number] Take one [facility] (COUMADIN) 6-12 tablet by [facility] 7.5 MG 00:00: mouth of tablet 00 daily or Medicin as e directed by physician warfarin 2019-0 2020- No [id number] Take one [facility] (COUMADIN) 6-12 12-02 tablet by Col [facility] 7.5 MG 00:00: 00:00 mouth of tablet 00 :00 daily or Medicin as e directed by physician rosuvastati 2019-0 Yes 10mg Take 10 mg [facility] n (CRESTOR) 5-28 by mouth [facility] 10 MG 19:20: daily. of tablet 22 Medicin e insulin 2019-0 Yes 40U Inject 40 [facility] glargine 5-28 Units into [facility] (LANTUS) 16:02: the skin of 100 UNIT/ML 32 nightly. Medi darci injection e montelukast 2020-0 Yes 10mg Take 10 mg [facility] (SINGULAIR) 5-28 by mouth [facility] 10 MG 16:02: daily. of tablet 32 Medicin e gabapentin 2019-0 Yes 300mg Take 300 [facility] (NEURONTIN) 5-28 mg by [place] 300 MG 16:02: mouth 3 of capsule 32 times Medicin daily. e Polyethylen 2020-0 Yes 17mg Take 17 mg [facility] e Glycol 5-28 by mouth [facility] 3350 16:02: daily. of (MIRALAX 32 Medicin OR) e pantoprazol 2020-0 Yes 40mg Take 40 mg [facility] e 5-28 by mouth [facility] (PROTONIX) 16:02: daily. of 40 MG 32 Medicin tablet e fexofenadin 2020-0 Yes 180mg Take 180 [facility] e (JULISSA) 5-28 mg by [facility] 180 MG 16:02: mouth. of tablet 32 Medicin e pantoprazol 2020-0 Yes 40mg Take 40 mg [facility] e 5-28 by mouth [facility] (PROTONIX) 16:02: daily. of 40 MG 32 Medicin tablet e pantoprazol 2020-0 Yes 40mg Take 40 mg [facility] e 5-28 by mouth [facility] (PROTONIX) 16:02: daily. of 40 MG 32 Medicin tablet e pantoprazol 2020-0 Yes 40mg Take 40 mg [facility] e 5-28 by mouth [facility] (PROTONIX) 16:02: daily. of 40 MG 32 Medicin tablet e pantoprazol 2020-0 Yes 40mg Take 40 mg [facility] e 5-28 by mouth [facility] (PROTONIX) 11:02: daily. of 40 MG 32 Medicin tablet e pantoprazol 2020-0 Yes 40mg Take 40 mg [facility] e 5-28 by mouth College (PROTONIX) 11:02: daily. of 40 MG 32 Medicin tablet e warfarin 2020-0 Yes [id number] 5mg Take 1 Tab [facility] (COUMADIN) 5-28 07 by mouth [facility]le [facility] 5 MG tablet 00:00: daily. of 00 Medicin e warfarin 2020-0 Yes [id number] 5mg Take 1 Tab [facility] (COUMADIN) 5-28 by mouth [facility]le [facility] 5 MG tablet 00:00: daily. of 00 Medicin e warfarin 2020-0 Yes [id number] 5mg Take 1 Tab [facility] (COUMADIN) 5-28 by mouth Colle [facility] 5 MG tablet 00:00: daily. of 00 Medicin e warfarin 2020-0 Yes [id number] 5mg Take 1 Tab [facility] (COUMADIN) 5-28 by mouth [facility]le [facility] 5 MG tablet 00:00: daily. of 00 Medicin e amoxicillin 2020-0 2020- No [id number] 1{tbl} Take 1 Tab [facility] -clavulanat 5-28 06-03 by mouth [facility] e 00:00: 04:59 every 8 of (AUGMENTIN) 00 :00 hours for Med icin 500-125 MG 5 days. e per tablet BD INSULIN 2020-0 Yes [facility] SYRINGE U/F 3-29 [place] 30G X 1/2" 00:00: of 0.5 ML MISC 00 Medicin e BD INSULIN 2020-0 Yes [facility] SYRINGE U/F 3-29 [place] 30G X 1/2" 00:00: of 0.5 ML MISC 00 Medicin e BD INSULIN 2020-0 Yes [facility] SYRINGE U/F 329 [place] 30G X 1/2" 00:00: of 0.5 ML MISC 00 Medicin e BD INSULIN 2020-0 Yes [facility] SYRINGE U/F 329 [place] 30G X 1/2" 00:00: of 0.5 ML MISC 00 Medicin e BD INSULIN 2020-0 Yes [facility] SYRINGE U/F 329 [place] 30G X 1/2" 00:00: of 0.5 ML MISC 00 Medicin e BD INSULIN 2020-0 Yes [facility] SYRINGE U/F 3-29 [place] 30G X 1/2" 00:00: of 0.5 ML MISC 00 Medicin e B 2020-0 Yes TAKE 1 [facility] Complex-C-F 3-26 TABLET BY [facility] olic Acid 00:00: MOUTH ONCE of (CARMEN-MARJORIE) 00 DAILY Medicin TABS e B 2020-0 Yes TAKE 1 [facility] Complex-C-F 3-26 TABLET BY Col [facility] olic Acid 00:00: MOUTH ONCE of (CARMEN-MARJORIE) 00 DAILY Medicin TABS e B 2020-0 Yes TAKE 1 [facility] Complex-C-F 3-26 TABLET BY Col [facility] olic Acid 00:00: MOUTH ONCE of (CARMEN-MARJORIE) 00 DAILY Medicin TABS e B 2020-0 Yes TAKE 1 [facility] Complex-C-F 3-26 TABLET BY [facility] olic Acid 00:00: MOUTH ONCE of (CARMEN-MARJORIE) 00 DAILY Medicin TABS e B 2020-0 Yes TAKE 1 [facility] Complex-C-F 3-26 TABLET BY [facility] olic Acid 00:00: MOUTH ONCE of (CARMEN-MARJORIE) 00 DAILY Medicin TABS e B 2020-0 Yes TAKE 1 [facility] Complex-C-F 3-26 TABLET BY Col [facility]ge olic Acid 00:00: MOUTH ONCE of (CARMEN-MARJORIE) 00 DAILY Medicin TABS e NOVOLOG 100 2020-0 Yes [facility] UNIT/ML 3-25 College injection 00:00: of 00 Medicin e NOVOLOG 100 2020-0 Yes [facility] UNIT/ML 3-25 College injection 00:00: of 00 Medicin e NOVOLOG 100 2020-0 Yes [facility] UNIT/ML 3-25 College injection 00:00: of 00 Medicin e NOVOLOG 100 2020-0 Yes [facility] UNIT/ML 3-25 College injection 00:00: of 00 Medicin e NOVOLOG 100 2020-0 Yes [place] UNIT/ML 3-25 College injection 00:00: of 00 Medicin e NOVOLOG 100 2020-0 Yes [place] UNIT/ML 3-25 College injection 00:00: of 00 Medicin e midodrine 2019- 2020- No TAKE 2 [facility] (PROAMATINE 11-18 05-28 TABLETS BY Mae flanagan ) 5 MG 00:00: 00:00 MOUTH 30 of tablet 00 :00 MINS PRIOR Medicin TO e HEMODIALYS IS aspirin EC 2020- No 81mg Take 81 mg [facility] 81 MG 11-06-06 by mouth. [place] tablet 00:00: 05:59 of 00 :00 Medicin e aspirin EC 2019-0 2020- No 81mg Take 81 mg [facility] 81 MG 11-06-06 by mouth. [place] tablet 00:00: 05:59 of 00 :00 Medicin e atorvastati 2019-0 2020- No 40mg Take 40 mg [facility] n (LIPITOR) - 05-28 by mouth. [facility]lege 40 MG 00:00: 00:00 of tablet 00 :00 Medicin e metoprolol 2019- 2020- No 12.5mg Take 12.5 [facility] (LOPRESSOR) 3- 05-28 mg by Colleg e 25 MG 00:00: 00:00 mouth two of tablet 00 :00 times Medicin daily. e lidocaine-p 2019-0 Yes APPLY A [place] [facility] rilocaine 11-03 [facility] ([facility]) 00:00: AMOUNT TO of 2.5-2.5 % 00 SKIN THREE Medi darci cream TIMES A e WEEK lidocaine-p 2020-0 Yes APPLY A [place] [facility] rilocaine 3-02 [facility] ([facility]) 00:00: AMOUNT TO of 2.5-2.5 % 00 SKIN THREE Medi darci cream TIMES A e WEEK lidocaine-p 2020-0 Yes APPLY A [place] [facility] rilocaine 3-02 [facility] ([facility]) 00:00: AMOUNT TO of 2.5-2.5 % 00 SKIN THREE Medi darci cream TIMES A e WEEK lidocaine-p 2020-0 Yes APPLY A [place] [facility] rilocaine 3-02 [facility] ([facility]) 00:00: AMOUNT TO of 2.5-2.5 % 00 SKIN THREE Medi darci cream TIMES A e WEEK lidocaine-p 2020-0 Yes APPLY A [place] [facility] rilocaine 3-02 [facility] ([facility] [facility]) 00:00: AMOUNT TO of 2.5-2.5 % 00 SKIN THREE Medi darci cream TIMES A e WEEK lidocaine-p 2020-0 Yes APPLY A [facility] rilocaine 3-02 [facility] ([facility]) 00:00: AMOUNT TO of 2.5-2.5 % 00 SKIN THREE Medi darci cream TIMES A e WEEK Cholecalcif 2020-0 2020- No Take by [facility] karoline 1-14 01-14 mouth. [place] (VITAMIN 17:51: 00:00 of D3) 5000 10 :00 Medicin units TABS e clopidogrel 2020-0 2020- No 75mg Take 75 mg [facility]helet (PLAVIX) 75 1-14 01-14 by mouth [facility] MG tablet 17:50: 00:00 daily. of 00 :00 Medicin e Apixaban 2020-0 Yes 2.5mg Take 2.5 [facility] (ELIQUIS) 1-14 mg by [place] 2.5 MG TABS 17:04: mouth of 14 daily. Medicin e [place]-3 2020-0 Yes 1mg Take 1 mg [facility] r Fatty Acids 1-14 by mouth [facility] (OMEGA-3 17:04: daily. of FISH OIL 14 Medicin OR) e Cholecalcif 2020-0 Yes [id number] Take [place] [facility] karoline 1-14 50,000 mg [place] (VITAMIN 17:04: by mouth of D3) 51961 14 daily. Medicin units CAPS e Sevelamer 2020-0 Yes 800mg Take 800 [place] [facility] Carbonate 1-14 mg by [place] 800 MG TABS 17:04: mouth of 14 daily. Medicin e docusate 2020-0 Yes 100mg Take 100 [facility] sodium 1-14 mg by [place] (COLACE) 17:04: mouth two of 100 MG 14 times Medicin capsule daily. e linaCLOtide 2020-0 Yes 72mg Take 72 mg [facility] (LINZESS) 1-14 by mouth [facility] e 72 MCG CAPS 17:04: daily. of 14 Medicin e baclofen 2020-0 Yes 10mg Take 10 mg [facility] (LIORESAL) 1-14 by mouth 3 [facility] 10 MG 17:04: times of tablet 14 daily. Medicin e hydrocodone 2020-0 Yes 15mL Take 15 mL [facility] -acetaminop 1-14 by mouth 4 [facility] hen (HYCET) 17:04: times of 7.5-325 14 daily as Medicin MG/15ML needed. e solution Melatonin 3 2020-0 Yes 3mg Take 3 mg [facility] MG TABS 1-14 by mouth [place] 17:04: nightly. of 14 Medicin e docusate 2020-0 Yes 100mg Take 100 [facility] sodium 1-14 mg by [place] (COLACE) 17:04: mouth two of 100 MG 14 times Medicin capsule daily. e linaCLOtide 2020-0 Yes 72mg Take 72 mg [facility] (LINZESS) 1-14 by mouth Colleg e 72 MCG CAPS 17:04: daily. of 14 Medicin e baclofen 2020-0 Yes 10mg Take 10 mg [facility] [facility] (LIORESAL) 1-14 by mouth 3 [facility] 10 MG 17:04: times of tablet 14 daily. Medicin e Melatonin 3 2020-0 Yes 3mg Take 3 mg [facility] MG TABS 1-14 by mouth [place] 17:04: nightly. of 14 Medicin e docusate 2020-0 Yes 100mg Take 100 [facility] sodium 1-14 mg by [place] (COLACE) 17:04: mouth two of 100 MG 14 times Medicin capsule daily. e linaCLOtide 2020-0 Yes 72mg Take 72 mg [facility] (LINZESS) 1-14 by mouth [facility] e 72 MCG CAPS 17:04: daily. of 14 Medicin e baclofen 2020-0 Yes 10mg Take 10 mg [facility] [facility] (LIORESAL) 1-14 by mouth 3 [facility] 10 MG 17:04: times of tablet 14 daily. Medicin e Melatonin 3 2020-0 Yes 3mg Take 3 mg [facility] MG TABS 1-14 by mouth [place] 17:04: nightly. of 14 Medicin e docusate 2020-0 Yes 100mg Take 100 [facility] sodium 1-14 mg by [place] (COLACE) 17:04: mouth two of 100 MG 14 times Medicin capsule daily. e linaCLOtide 2020-0 Yes 72mg Take 72 mg [facility] (LINZESS) 1-14 by mouth [facility] e 72 MCG CAPS 17:04: daily. of 14 Medicin e baclofen 2020-0 Yes 10mg Take 10 mg [facility] [facility] (LIORESAL) 1-14 by mouth 3 [facility] 10 MG 17:04: times of tablet 14 daily. Medicin e Melatonin 3 2020-0 Yes 3mg Take 3 mg [facility] MG TABS 1-14 by mouth [place] 17:04: nightly. of 14 Medicin e insulin 2020-0 Yes 40U Inject 40 Bay[facility] r glargine 1-14 Units into [facility] (LANTUS) 17:04: the skin of 100 UNIT/ML 14 nightly. Medi darci injection e rosuvastati 2020-0 Yes 10mg Take 10 mg Michelet n (CRESTOR) 1-14 by mouth [facility] e[facility] 10 MG 17:04: daily. of tablet 14 Medicin e Apixaban 2020-0 Yes 2.5mg Take 2.5 [facility] (ELIQUIS) 1-14 mg by [place] 2.5 MG TABS 17:04: mouth of 14 daily. Medicin e [place]-3 2020-0 Yes 1mg Take 1 mg [facility] Fatty Acids 1-14 by mouth [facility] (OMEGA-3 17:04: daily. of FISH OIL 14 Medicin OR) e montelukast 2020-0 Yes 10mg Take 10 mg [facility] (SINGULAIR) 1-14 by mouth [facility] 10 MG 17:04: daily. of tablet 14 Medicin e fexofenadin 2020-0 Yes 1{tbl} Take 1 Tab [facility] e-pseudoeph 1-14 by mouth [facility] edrine 17:04: daily. of (JULISSA-D 14 Medicin ALLERGY & e CONGESTION) 180-240 MG per tablet gabapentin 2020-0 Yes 300mg Take 300 [facility] (NEURONTIN) 1-14 mg by [place] 300 MG 17:04: mouth 3 of capsule 14 times Medicin daily. e Cholecalcif 2020-0 Yes [id number] Take [place] [facility]ha karoline 1-14 50,000 mg [place] (VITAMIN 17:04: by mouth of D3) 30552 14 daily. Medicin units CAPS e Sevelamer 2020-0 Yes 800mg Take 800 [place] [facility] Carbonate 1-14 mg by [place] 800 MG TABS 17:04: mouth of 14 daily. Medicin e docusate 2020-0 Yes 100mg Take 100 [facility] sodium 1-14 mg by [place] (COLACE) 17:04: mouth two of 100 MG 14 times Medicin capsule daily. e linaCLOtide 2020-0 Yes 72mg Take 72 mg [facility] (LINZESS) 1-14 by mouth Colleg e 72 MCG CAPS 17:04: daily. of 14 Medicin e Polyethylen 2020-0 Yes 17mg Take 17 mg [facility]helet e Glycol 1-14 by mouth [place] 3350 17:04: daily. of (MIRALAX 14 Medicin OR) e baclofen 2020-0 Yes 10mg Take 10 mg [facility] [facility] (LIORESAL) 1-14 by mouth 3 [facility] 10 MG 17:04: times of tablet 14 daily. Medicin e hydrocodone 2020-0 Yes 15mL Take 15 mL [facility] -acetaminop 1-14 by mouth 4 [facility] hen (HYCET) 17:04: times of 7.5-325 14 daily as Medicin MG/15ML needed. e solution pantoprazol 2020-0 Yes 40mg Take 40 mg Michelet e 1-14 by mouth [place] (PROTONIX) 17:04: daily. of 40 MG 14 Medicin tablet e Melatonin 3 2020-0 Yes 3mg Take 3 mg [facility] MG TABS 1-14 by mouth [place] 17:04: nightly. of 14 Medicin e Insulin 2020-0 Yes 100ug Inject 100 [place] [facility] Aspart 1-14 mcg into [facility] (NOVOLOG 17:04: the skin of PENFILL) 14 daily. Medicin 100 UNIT/ML e SOCT docusate 2020-0 Yes 100mg Take 100 [facility] sodium 1-14 mg by [place] (COLACE) 11:04: mouth two of 100 MG 14 times Medicin capsule daily. e linaCLOtide 2020-0 Yes 72mg Take 72 mg [facility] (LINZESS) 1-14 by mouth [facility] 72 MCG CAPS 11:04: daily. of 14 Medicin e baclofen 2020-0 Yes 10mg Take 10 mg [facility] [facility] (LIORESAL) 1-14 by mouth 3 [facility] 10 MG 11:04: times of tablet 14 daily. Medicin e Melatonin 3 2020-0 Yes 3mg Take 3 mg [facility] MG TABS 1-14 by mouth [place] 11:04: nightly. of 14 Medicin e docusate 2020-0 Yes 100mg Take 100 [facility] or sodium 1-14 mg by [place] (COLACE) 11:04: mouth two of 100 MG 14 times Medicin capsule daily. e linaCLOtide 2020-0 Yes 72mg Take 72 mg [facility] (LINZESS) 1-14 by mouth [facility] 72 MCG CAPS 11:04: daily. of 14 Medicin e baclofen 2020-0 Yes 10mg Take 10 mg [place] [facility] (LIORESAL) 1-14 by mouth 3 [facility] 10 MG 11:04: times of tablet 14 daily. Medicin e Melatonin 3 2020-0 Yes 3mg Take 3 mg [facility] MG TABS 1-14 by mouth [place] 11:04: nightly. of 14 Medicin e clopidogrel 2020-0 Yes 75mg Take 1 Tab [facility] (PLAVIX) 75 1-14 by mouth [facility] MG Tablet 00:00: daily. of 00 Medicin e metoprolol 2020-0 Yes 25mg Take 1 Tab [facility] (TOPROL XL) 1-14 by mouth [facility] 25 MG XL 00:00: daily. of tablet 00 Medicin e metoprolol 2019-0 2020- No 25mg Take 25 mg [facility] (TOPROL-XL) 1-14 12-02 by mouth [facility] 25 MG XL 00:00: 00:00 two times of tablet 00 :00 daily. Medicin e metoprolol 2020-0 2020- No 25mg Take 1 Tab [facility] (TOPROL XL) 1-14 -28 by mouth [facility] 25 MG XL 00:00: 00:00 daily. of tablet 00 :00 Medicin e Colchicine 2019-0 2019- No .6mg Take 0.6 [facility] 0.6 MG CAPS 8-06 08-06 mg by Colleg e 16:59: 00:00 mouth of 55 :00 daily. Medicin e amiodarone 2019-0 2019- No 200mg Take 200 [facility] (PACERONE) 8-06 08-06 mg by [facility] 200 MG 16:59: 00:00 mouth of tablet 49 :00 daily. Medicin e Insulin 2019-0 Yes 100ug Inject 100 [place] [facility] Aspart 8-06 mcg into [facility] (NOVOLOG 16:50: the skin of PENFILL) 46 daily. Medicin 100 UNIT/ML e SOCT Apixaban 2019-0 Yes 2.5mg Take 2.5 [facility] (ELIQUIS) 8-06 mg by [facility] 2.5 MG TABS 16:37: mouth of 05 daily. Medicin e [place]-3 2019- Yes 1mg Take 1 mg [facility] Fatty Acids 8-06 by mouth [facility] (OMEGA-3 16:37: daily. of FISH OIL 05 Medicin OR) e montelukast 2018-0 Yes 10mg Take 10 mg [facility] (SINGULAIR) 8-06 by mouth [facility] 10 MG 16:37: daily. of tablet 05 Medicin e fexofenadin 2018- Yes 1{tbl} Take 1 Tab [facility] e-pseudoeph 8-06 by mouth [facility] e[facility] edrine 16:37: daily. of (JULISSA-D 05 Medicin ALLERGY & e CONGESTION) 180-240 MG per tablet gabapentin 2018-0 Yes 300mg Take 300 [facility] (NEURONTIN) 8-06 mg by [place] 300 MG 16:37: mouth 3 of capsule 05 times Medicin daily. e Cholecalcif 0 Yes Take by [facility] karoline 8-06 mouth. [place] (VITAMIN 16:37: of D3) 5000 05 Medicin units TABS e Cholecalcif 2019-0 Yes [id number] Take [place] [facility] karoline 8-06 50,000 mg [place] (VITAMIN 16:37: by mouth of D3) 82227 05 daily. Medicin units CAPS e Sevelamer 2018-0 Yes 800mg Take 800 [place] [facility] Carbonate 8-06 mg by [place] 800 MG TABS 16:37: mouth of 05 daily. Medicin e docusate 2019-0 Yes 100mg Take 100 [facility] sodium 8-06 mg by [place] (COLACE) 16:37: mouth two of 100 MG 05 times Medicin capsule daily. e linaCLOtide 2019-0 Yes 72mg Take 72 mg [facility] (LINZESS) 8-06 by mouth Colleg [facility] 72 MCG CAPS 16:37: daily. of 05 Medicin e Polyethylen Yes 17mg Take 17 mg [facility]helet e Glycol 8-06 by mouth [place] 3350 16:37: daily. of (MIRALAX 05 Medicin OR) e baclofen Yes 10mg Take 10 mg [place] [facility] (LIORESAL) 8-06 by mouth 3 [facility] 10 MG 16:37: times of tablet 05 daily. Medicin e hydrocodone Yes 15mL Take 15 mL [facility] -acetaminop 8-06 by mouth 4 [facility]lege hen (HYCET) 16:37: times of 7.5-325 05 daily as Medicin MG/15ML needed. e solution pantoprazol Yes 40mg Take 40 mg Michelet e 8-06 by mouth [place] (PROTONIX) 16:37: daily. of 40 MG 05 Medicin tablet e clopidogrel Yes 75mg Take 75 mg [facility] (PLAVIX) 75 8-06 by mouth [facility] e[facility] MG tablet 16:37: daily. of 05 Medicin e Melatonin 3 Yes 3mg Take 3 mg [facility] MG TABS 8-06 by mouth [place] 16:37: nightly. of 05 Medicin e insulin Yes 40U Inject 40 Baylo r glargine 8-06 Units into [facility] (LANTUS) 16:37: the skin of 100 UNIT/ML 05 nightly. Medi darci injection e rosuvastati Yes 10mg Take 10 mg [facility] n (CRESTOR) 8-06 by mouth [facility] 10 MG 16:37: daily. of tablet 05 Medicin e amitriptyli 2017-09 Yes 1{tbl} Take 1 Tab [facility] ne (ELAVIL) 0-02 by mouth [facility] 25 MG 00:00: daily. of tablet 00 Medicin e amitriptyli 2017-09 Yes 1{tbl} Take 1 Tab Michelet ne (ELAVIL) 0-02 by mouth [facility] 25 MG 00:00: daily. of tablet 00 Medicin e amitriptyli 2017-09- No 1{tbl} Take 1 Tab [facility] ne (ELAVIL) 0-02 04-15 by mouth [facility] 25 MG 00:00: 00:00 daily. of tablet 00 :00 Medicin e Immunizations Ordered Immunization Filled Immunization Date Status Commen ts Source Name Name Pfizer SARS-CoV-2 2020-11-07 Completed [facility] Vaccination 00:00:00 of Medicine Pfizer SARS-CoV-2 2020-11-07 Completed [facility] Vaccination 00:00:00 of Medicine Pfizer SARS-CoV-2 2020-11-07 Completed [facility] Vaccination 00:00:00 of Medicine Pfizer SARS-CoV-2 2020-11-07 Completed [facility] Vaccination 00:00:00 of Medicine Pfizer SARS-CoV-2 2020-10-17 Completed [facility] Vaccination 00:00:00 of Medicine Pfizer SARS-CoV-2 2020-10-17 Completed [facility] Vaccination 00:00:00 of Medicine Pfizer SARS-CoV-2 2020-10-17 Completed [facility] Vaccination 00:00:00 of Medicine Pfizer SARS-CoV-2 2020-10-17 Completed [facility] Vaccination 00:00:00 of Medicine Vital Signs Vital Name Observation Time Observation Value Comments Source Systolic blood 2021-10-19 15:37:00 117 mm[Hg] [facility] Medicine Diastolic blood 2021-10-19 15:37:00 66 mm[Hg] [facility] Medicine Heart rate 2021-10-19 15:37:00 61 /min [facility] Respiratory rate 2021-10-19 15:37:00 16 /min [facility] Body height 2021-10-19 15:37:00 182.9 cm [facility] Body weight 2021-10-19 15:37:00 131.09 kg [facility] BMI 2021-10-19 15:37:00 39.20 kg/m2 [facility] Oxygen saturation in 2021-10-19 15:37:00 97 /min [facility] Arterial blood by [facility] Pulse oximetry Systolic blood 2021-08-05 18:36:00 124 mm[Hg] [facility] pressure Medicine Diastolic blood 2021-08-05 18:36:00 50 mm[Hg] [facility] Medicine Heart rate 2021-08-05 17:58:00 62 /min [facility] ollege of Medicine Respiratory rate 2021-08-05 17:58:00 16 /min [facility] Body height 2021-08-05 17:58:00 182.9 cm [facility] ollege of [facility] Body weight 2021-08-05 17:58:00 131.543 kg [facility] ollege [facility] BMI 2021-08-05 17:58:00 39.33 [facility]m2 [facility] in 2021-08-05 17:58:00 97 /min [facility] Arterial blood by [facility] Pulse oximetry WEIGHT 2021-06-18 08:29:00 128.3 kg WEIGHT 2021-06-18 07:15:00 128.3 kg WEIGHT 2021-06-17 22:00:00 128.4 kg WEIGHT 2021-06-17 20:00:00 129.4 kg HEIGHT 2021-06-17 10:31:00 180.3 cm WEIGHT 2021-06-17 10:31:00 129.366 kg WEIGHT 2021-06-18 08:29:00 128.3 kg WEIGHT 2021-06-18 07:15:00 128.3 kg WEIGHT 2021-06-17 22:00:00 128.4 kg WEIGHT 2021-06-17 20:00:00 129.4 kg HEIGHT 2021-06-17 10:31:00 180.3 cm WEIGHT 2021-06-17 10:31:00 129.366 kg Systolic blood 2020-12-17 17:45:00 142 mm[Hg] [facility] pressure Medicine Diastolic blood 2020-12-17 17:45:00 71 mm[Hg] [facility] Medicine Heart rate 2020-12-17 17:45:00 60 /min [facility] ollege of [facility] Respiratory rate 2020-12-17 17:45:00 16 /min [facility] Body height 2020-12-17 17:45:00 182.9 cm [facility] ollege of [facility] Body weight 2020-12-17 17:45:00 [facility]09 [facility] BMI 2020-12-17 17:45:00 39.20 kg/m2 [facility] C ollege of Medicine Oxygen saturation in 2020-12-17 17:45:00 99 /min [facility] of Arterial blood by Medicine Pulse oximetry Systolic blood 2020-12-17 17:13:00 142 mm[Hg] [facility] of pressure Medicine Diastolic blood 2020-12-17 17:13:00 71 mm[Hg] [facility] Medicine Heart rate 2020-12-17 17:13:00 60 /min [facility] ol[facility] of Medicine Respiratory rate 2020-12-17 17:13:00 16 /min [facility] Body height 2020-12-17 17:13:00 182.9 cm [facility] ollege of [facility] Body weight 2020-12-17 17:13:00 131.09 kg [facility] ol[facility] of Medicine BMI 2020-12-17 17:13:00 39.20 kg/m2 [facility] ollege of [facility] Oxygen saturation in 2020-12-17 17:13:00 99 /min [facility] of Arterial blood by Medicine Pulse oximetry Systolic blood 2020-06-23 18:50:00 110 mm[Hg] [facility] of pressure Medicine Diastolic blood 2020-06-23 18:50:00 66 mm[Hg] [facility] Medicine Heart rate 2020-06-23 18:50:00 94 /min [facility] of Medicine Respiratory rate 2020-06-23 18:50:00 16 /min [facility] Body height 2020-06-23 18:50:00 182.9 cm [facility] ollege of [facility] Body weight 2020-06-23 18:50:00 132.45 kg [facility] of Medicine BMI 2020-06-23 18:50:00 39.60 kg/m2 [facility] ollege of [facility] Oxygen saturation in 2020-06-23 18:50:00 97 /min [facility] of Arterial blood by Medicine Pulse oximetry Systolic blood 2020-06-23 18:50:00 110 mm[Hg] [facility] College of pressure Medicine Diastolic blood 2020-06-23 18:50:00 66 mm[Hg] [facility] pressure Medicine Heart rate 2020-06-23 18:50:00 94 /min [facility] ol[facility] of Medicine Respiratory rate 2020-06-23 18:50:00 16 /min [facility] Body height 2020-06-23 18:50:00 182.9 cm [facility] C ollege of Medicine Body weight 2020-06-23 18:50:00 132.45 kg [facility] C ol[facility] of Medicine BMI 2020-06-23 18:50:00 39.60 kg/m2 [facility] ol[facility] of Medicine Oxygen saturation in 2020-06-23 18:50:00 97 /min [facility] of Arterial blood by Medicine Pulse oximetry Systolic blood 2020-01-30 16:00:00 149 mm[Hg] [facility] of pressure Medicine Diastolic blood 2020-01-30 16:00:00 79 mm[Hg] [facility] of pressure Medicine Heart rate 2020-01-30 16:00:00 87 /min [facility] of Medicine Respiratory rate 2020-01-30 16:00:00 16 /min [facility] Body height 2020-01-30 16:00:00 182.9 cm [facility] of Medicine Body weight 2020-01-30 16:00:00 129.729 kg [facility] of Medicine BMI 2020-01-30 16:00:00 38.79 kg/m2 [facility] ollege of [facility] Oxygen saturation in 2020-01-30 16:00:00 99 /min [facility] of Arterial blood by Medicine Pulse oximetry Systolic blood 2020-01-30 16:00:00 149 mm[Hg] [facility] of pressure Medicine Diastolic blood 2020-01-30 16:00:00 79 mm[Hg] [facility] of pressure Medicine Heart rate 2020-01-30 16:00:00 87 /min [facility] ol[facility] of Medicine Respiratory rate 2020-01-30 16:00:00 16 /min [facility] Body height 2020-01-30 16:00:00 182.9 cm [facility] of Medicine Body weight 2020-01-30 16:00:00 129.729 kg [facility] of Medicine BMI 2020-01-30 16:00:00 38.79 kg/m2 [facility] ol[facility] of Medicine Oxygen saturation in 2020-01-30 16:00:00 99 /min [facility] of Arterial blood by Medicine Pulse oximetry Systolic blood 2019-09-17 16:58:00 152 mm[Hg] [facility] pressure Medicine Diastolic blood 2019-09-17 16:58:00 65 mm[Hg] [facility] of pressure Medicine Heart rate 2019-09-17 16:58:00 83 /min [facility] ol[facility] of Medicine Respiratory rate 2019-09-17 16:58:00 16 /min [facility] Body height 2019-09-17 16:58:00 182.9 cm [facility] ollege of [facility] Body weight 2019-09-17 16:58:00 129.729 kg [facility] of Medicine BMI 2019-09-17 16:58:00 38.79 kg/m2 [facility] ollege of [facility] Oxygen saturation in 2019-09-17 16:58:00 98 /min [facility] of Arterial blood by Medicine Pulse oximetry Systolic blood 2019-09-17 16:58:00 152 mm[Hg] [facility] Medicine Diastolic blood 2019-09-17 16:58:00 65 mm[Hg] [facility] of [facility] Medicine Heart rate 2019-09-17 16:58:00 83 /min [facility] ol[facility] of Medicine Respiratory rate 2019-09-17 16:58:00 16 /min [facility] Body height 2019-09-17 16:58:00 182.9 cm [facility] ollege of [facility] Body weight 2019-09-17 16:58:00 129.729 [facility] BMI 2019-09-17 16:58:00 38.79 [facility]2 [facility] Oxygen saturation in 2019-09-17 16:58:00 98 /min [facility] of Arterial blood by Medicine Pulse oximetry Systolic blood 2019-04-09 16:33:00 129 mm[Hg] [facility] of pressure Medicine Diastolic blood 2019-04-09 16:33:00 56 mm[Hg] [facility] of pressure Medicine Heart rate 2019-04-09 16:33:00 77 /min [facility] ol[facility] of Medicine Respiratory rate 2019-04-09 16:33:00 16 /min [facility] Body height 2019-04-09 16:33:00 182.9 [facility] 2019-04-09 16:33:00 131.09 kg [facility] BMI 2019-04-09 16:33:00 39.20 kg/m2 [facility] Oxygen saturation in 2019-04-09 16:33:00 95 /min [facility] Arterial blood by Medicine Pulse oximetry Systolic blood 2019-04-09 16:33:00 129 mm[Hg] [facility] pressure Medicine Diastolic blood 2019-04-09 16:33:00 56 mm[Hg] [facility] pressure Medicine Heart rate 2019-04-09 16:33:00 77 /min [facility] Respiratory rate 2019-04-09 16:33:00 16 /min [facility] Body height 2019-04-09 16:33:00 182.9 cm [facility] Body weight 2019-04-09 16:33:00 131.09 kg [facility] BMI 2019-04-09 16:33:00 39.20 kg/m2 [facility] Oxygen saturation in 2019-04-09 16:33:00 95 /min [facility] Arterial blood by Medicine Pulse oximetry Procedures Procedure Date / Time Performing Clinician Source Performed ELECTROCARDIOGRAM COMPLETE 2021-10-19 15:50:00 Agustin Patel [facility] ELECTROCARDIOGRAM COMPLETE 2020-01-30 16:08:00 Agustin Patel [facility] ELECTROCARDIOGRAM COMPLETE 2019-09-17 17:06:00 Agustin Patel [facility] ELECTROCARDIOGRAM COMPLETE 2019-04-09 16:37:00 Agustin Patel [facility] ([facility]) HEART CATH 2019-04-09 15:59:27 Agustin Patel [facility] Plan of Care Planned Activity Planned Date Details Comments Source Future Scheduled 2022-04-18 US CAROTID [code = Expected: [facility] [employer] Test 00:00:00 [id number]] 04/18/2022, of Medicine Expires: 10/19/2022 Future Scheduled 2021-10-26 Screening for malignant [facility] Test 01:06:11 neoplasm of colon of Medicin e (procedure) [code = 546558488] Future Scheduled 2021-10-26 TETANUS SHOT (ADULT) [facility] Test 01:06:11 [code = TETANUS SHOT of Medi cine (ADULT)] Future Scheduled 2021-10-26 BMI FOLLOW UP PLAN [code [facility] Test 01:06:11 = BMI FOLLOW UP PLAN] of Med icine Future Scheduled 2021-10-26 Hepatitis C screening [facility] Test 01:06:11 (procedure) [code = of Medic ine [id number]] Future Scheduled 2021-10-26 ZOSTER VACCINE (1 of 2) [facility] Test 01:06:11 [code = ZOSTER VACCINE of Me dicine (1 of 2)] Future Scheduled 2021-10-26 MEDICARE AWV (Initial) [facility] Test 01:06:11 [code = MEDICARE AWV of Medi cine (Initial)] Future Scheduled 2021-10-26 FALL SCREEN [code = FALL [facility] Test 01:06:11 SCREEN] of Medicine Future Scheduled 2021-10-26 Pneumococcal 65+ (1 of 1 [facility] Test 01:06:11 - PPSV23) [code = of Medicin e Pneumococcal 65+ (1 of 1 - PPSV23)] Future Scheduled 2021-10-26 FLU VACCINE > 6 MONTHS [facility] [employer] Test 01:06:11 [code = FLU VACCINE > 6 of M edicine MONTHS] Future Scheduled 2021-10-26 COVID-19 Vaccine (3 - [facility] Test 01:06:11 Booster for Pfizer of Medici ne series) [code = COVID-19 Vaccine (3 - Booster for Pfizer series)] Future Scheduled 2021-10-19 ELECTROCARDIOGRAM [facility] College Test 09:50:30 COMPLETE [code = 43731] of M edicine Diagnostic Test 2021-10-19 ECHO, COMPLETE [code = Expected: [facility] Pending 00:00:00 [id number]] 10/19/2021, of Medicine Expires: 04/18/2022 Future Scheduled 2021-08-05 Screening for malignant [facility] Test 11:59:26 neoplasm of colon of Medicin e (procedure) [code = [id number]] Future Scheduled 2021-08-05 TETANUS SHOT (ADULT) [facility] [employer] Test 11:59:26 [code = TETANUS SHOT of Medi cine (ADULT)] Future Scheduled 2021-08-05 BMI FOLLOW UP PLAN [code [facility] [employer] Test 11:59:26 = BMI FOLLOW UP PLAN] of Med icine Future Scheduled 2021-08-05 Hepatitis C screening [facility] [place] Test 11:59:26 (procedure) [code = of Medic ine [id number]] Future Scheduled 2021-08-05 ZOSTER VACCINE (1 of 2) [facility] [employer] Test 11:59:26 [code = ZOSTER VACCINE of Me dicine (1 of 2)] Future Scheduled 2021-08-05 MEDICARE AWV (Initial) [facility] Test 11:59:26 [code = MEDICARE AWV of Medi cine (Initial)] Future Scheduled 2021-08-05 FALL SCREEN [code = FALL [facility] Test 11:59:26 SCREEN] of Medicine Future Scheduled 2021-08-05 Pneumococcal 65+ (1 of 1 [facility] Test 11:59:26 - PPSV23) [code = of Medicin e Pneumococcal 65+ (1 of 1 - PPSV23)] Future Scheduled 2021-08-05 FLU VACCINE > 6 MONTHS [facility] [employer] Test 11:59:26 [code = FLU VACCINE > 6 of M edicine MONTHS] Future Scheduled 2021-08-05 COVID-19 Vaccine (3 - Ba [facility] Test 11:59:26 Booster for Pfizer of Medici ne series) [code = COVID-19 Vaccine (3 - Booster for Pfizer series)] Diagnostic Test 2020-12-17 ECHO, COMPLETE [code = Expected: [employer] Pending 00:00:00 [id number]] 12/17/2020, of Medicine Expires: 06/18/2021 Diagnostic Test 2020-06-23 ECHO LIMITED [code = Expected: [employer] Pending 00:00:00 [id number]] 06/23/2020, of Medicine Expires: 06/23/2021 Future Scheduled ELECTROCARDIOGRAM [facility] Test COMPLETE [code = 54667] of M edicine Future Scheduled COLON CANCER SCREENING: [facility] Test COLONOSCOPY [code = of Medic ine COLON CANCER SCREENING: COLONOSCOPY] Future Scheduled TETANUS SHOT (ADULT) [place] [facility] [employer] Test [code = TETANUS SHOT of Medi cine (ADULT)] Future Scheduled Diabetic foot [facility] Col lege Test examination of Medicine (regime/therapy) [code = [id number]] Future Scheduled ANNUAL DIABETIC [facility] C ollege Test RETINOPATHY SCREENING of Med icine [code = ANNUAL DIABETIC RETINOPATHY SCREENING] Future Scheduled BMI FOLLOW UP PLAN [code [facility] [employer] Test = BMI FOLLOW UP PLAN] of Med icine Future Scheduled HEPATITIS C SCREENING [employer] Test [code = HEPATITIS C of Medic ine SCREENING] Future Scheduled MEDICARE AWV (Initial) [employer] Test [code = MEDICARE AWV of Medi cine (Initial)] Future Scheduled FALL SCREEN [code = FALL [employer] Test SCREEN] of Medicine Future Scheduled PNEUMOVAX >=65 (PPSV23) [facility] [employer] Test [code = PNEUMOVAX >=65 of Me dicine (PPSV23)] Future Scheduled PREVNAR >= 65 (PCV13) [employer] Test [code = PREVNAR >= 65 of Med icine (PCV13)] Future Scheduled FLU VACCINE > 6 MONTHS [employer] Test [code = FLU VACCINE > 6 of M edicine MONTHS] Future Scheduled COLON CANCER SCREENING: [facility] [employer] Test COLONOSCOPY [code = of Medic ine COLON CANCER SCREENING: COLONOSCOPY] Future Scheduled TETANUS SHOT (ADULT) [place] [facility] [employer] Test [code = TETANUS SHOT of Medi cine (ADULT)] Future Scheduled BMI FOLLOW UP PLAN [code [facility] [employer] Test = BMI FOLLOW UP PLAN] of Med icine Future Scheduled HEPATITIS C SCREENING [employer] Test [code = HEPATITIS C of Medic ine SCREENING] Future Scheduled ZOSTER VACCINE (1 of 2) [employer] Test [code = ZOSTER VACCINE of Me dicine (1 of 2)] Future Scheduled MEDICARE AWV (Initial) [employer] Test [code = MEDICARE AWV of Medi cine (Initial)] Future Scheduled FALL SCREEN [code = FALL [employer] Test SCREEN] of Medicine Future Scheduled PNEUMOVAX >=65 (PPSV23) [employer] Test [code = PNEUMOVAX >=65 of Me dicine (PPSV23)] Future Scheduled FLU VACCINE > 6 MONTHS [employer] Test [code = FLU VACCINE > 6 of M edicine MONTHS] Future Scheduled Screening for malignant [facility] [employer] Test neoplasm of colon of Medicin e (procedure) [code = [id number]] Future Scheduled TETANUS SHOT (ADULT) [place] [facility] [employer] Test [code = TETANUS SHOT of Medi cine (ADULT)] Future Scheduled BMI FOLLOW UP PLAN [code [employer] Test = BMI FOLLOW UP PLAN] of Med icine Future Scheduled Hepatitis C screening [employer] Test (procedure) [code = of Medic ine [id number]] Future Scheduled ZOSTER VACCINE (1 of 2) [facility] [employer] Test [code = ZOSTER VACCINE of Me dicine (1 of 2)] Future Scheduled MEDICARE AWV (Initial) [employer] Test [code = MEDICARE AWV of Medi cine (Initial)] Future Scheduled FALL SCREEN [code = FALL [facility] [employer] Test SCREEN] of Medicine Future Scheduled PNEUMOVAX >=65 (PPSV23) [facility] [employer] Test [code = PNEUMOVAX >=65 of Me dicine (PPSV23)] Future Scheduled FLU VACCINE > 6 MONTHS [employer] Test [code = FLU VACCINE > 6 of M edicine MONTHS] Future Scheduled Screening for malignant [facility] Test neoplasm of colon of Medicin e (procedure) [code = [id number]] Future Scheduled TETANUS SHOT (ADULT) [place] [facility] [employer] Test [code = TETANUS SHOT of Medi cine (ADULT)] Future Scheduled BMI FOLLOW UP PLAN [code [facility] Test = BMI FOLLOW UP PLAN] of Med icine Future Scheduled Hepatitis C screening [facility] Test (procedure) [code = of Medic ine [id number]] Future Scheduled ZOSTER VACCINE (1 of 2) [facility] [employer] Test [code = ZOSTER VACCINE of Me dicine (1 of 2)] Future Scheduled MEDICARE AWV (Initial) [facility] [employer] Test [code = MEDICARE AWV of Medi cine (Initial)] Future Scheduled FALL SCREEN [code = FALL [facility] Test SCREEN] of Medicine Future Scheduled PNEUMOVAX >=65 (PPSV23) [facility] Test [code = PNEUMOVAX >=65 of Me dicine (PPSV23)] Future Scheduled FLU VACCINE > 6 MONTHS [facility] Test [code = FLU VACCINE > 6 of M edicine MONTHS] Future Scheduled ELECTROCARDIOGRAM [facility] Test COMPLETE [code = 57847] of M edicine Future Scheduled COLON CANCER SCREENING: [facility] Test COLONOSCOPY [code = of Medic ine COLON CANCER SCREENING: COLONOSCOPY] Future Scheduled MEDICARE AWV [code = [place] [facility] MEDICARE AWV] of Medicine Future Scheduled TETANUS SHOT (ADULT) [place] [employer] [employer] Test [code = TETANUS SHOT of Medi cine (ADULT)] Future Scheduled Diabetic foot [facility] [employer]ge Test examination of Medicine (regime/therapy) [code = [id number]] Future Scheduled ANNUAL DIABETIC [facility] [employer] Test RETINOPATHY SCREENING of Med icine [code = ANNUAL DIABETIC RETINOPATHY SCREENING] Future Scheduled BMI FOLLOW UP PLAN [code [employer] Test = BMI FOLLOW UP PLAN] of Med icine Future Scheduled HEPATITIS C SCREENING [employer] Test [code = HEPATITIS C of Medic ine SCREENING] Future Scheduled FALL SCREEN [code = FALL [facility] Test SCREEN] of Medicine Future Scheduled PNEUMOVAX >=65 (PPSV23) [facility] Test [code = PNEUMOVAX >=65 of Me dicine (PPSV23)] Future Scheduled PREVNAR >= 65 (PCV13) [employer] Test [code = PREVNAR >= 65 of Med icine (PCV13)] Future Scheduled FLU VACCINE > 6 MONTHS [employer] Test [code = FLU VACCINE > 6 of M edicine MONTHS] Future Scheduled ELECTROCARDIOGRAM [facility] Test COMPLETE [code = 88143] of M edicine Future Scheduled COLON CANCER SCREENING: [facility] Test COLONOSCOPY [code = of Medic ine COLON CANCER SCREENING: COLONOSCOPY] Future Scheduled TETANUS SHOT (ADULT) [facility] [employer] Test [code = TETANUS SHOT of Medi cine (ADULT)] Future Scheduled Diabetic foot [facility] Col [employer]ge Test examination of Medicine (regime/therapy) [code = [id number]] Future Scheduled ANNUAL DIABETIC [facility] [employer] Test RETINOPATHY SCREENING of Med icine [code = ANNUAL DIABETIC RETINOPATHY SCREENING] Future Scheduled BMI FOLLOW UP PLAN [code [facility] [employer] Test = BMI FOLLOW UP PLAN] of Med icine Future Scheduled HEPATITIS C SCREENING [employer] Test [code = HEPATITIS C of Medic ine SCREENING] Future Scheduled MEDICARE AWV (Initial) [employer] Test [code = MEDICARE AWV of Medi cine (Initial)] Future Scheduled FALL SCREEN [code = FALL [facility] Test SCREEN] of Medicine Future Scheduled PNEUMOVAX >=65 (PPSV23) [facility] [employer] Test [code = PNEUMOVAX >=65 of Me dicine (PPSV23)] Future Scheduled PREVNAR >= 65 (PCV13) [employer] Test [code = PREVNAR >= 65 of Med icine (PCV13)] Future Scheduled FLU VACCINE > 6 MONTHS [employer] Test [code = FLU VACCINE > 6 of M edicine MONTHS] Encounters Start End Encounter Admission Attending Care Care Encounter Source Date/Time Date/Time Type Type Clinicians Facility Department ID 2020-06-29 Inpatient [facility] [id number] [facility] 22:07:00 [id number] [facility] 2019-10-22 Inpatient SLE SLE [id number] [facility] 11:26:20 [id number] 2021-10-19 2021-10-19 Office JORGE, BCM 1.2.840.114 [id number] [facility] 09:17:10 11:20:44 Visit MAHBOOB AMBULATOR 350.1.13.21 College Y 0.2.7.2.686 of [id number] Medi darci 375 e 2021-08-05 2021-08-05 Office Alagilbert, BCM 1.2.840.114 [id number] [facility] 12:20:00 13:10:48 Visit Mahboob AMBULATOR 350.1.13.21 College Y 0.2.7.2.686 of [id number] Medi darci 375 e 2021-06-17 2021-06-18 Inpatient SYEDA PATEL Surgery [id number] [facility] 10:18:00 14:10:00 [facility] 2021-06-17 2021-06-17 Outpatient BCM BCM [id number] [facility] 00:00:00 23:59:00 Colleg e of Medicin e 2020-12-17 2020-12-17 Office STEFANOALEXANDRO BCM 1.2.840.114 [id number] [facility] 11:35:22 17:02:09 Visit AGHAN, AMBULATOR 350.1.13.21 College HAMID Y 0.2.7.2.686 of [id number] Medi darci 375 e 2020-12-17 2020-12-17 Office ALAGilbert, BCM 1.2.840.114 [id number] [facility] 11:34:58 16:33:34 Visit MAHBOOB AMBULATOR 350.1.13.21 College Y 0.2.7.2.686 of [id number] Medi darci 375 e 2020-06-23 2020-06-23 Office Alagilbert, BCM 1.2.840.[id number] [place] [address] 13:42:26 16:51:35 Visit Mahboob AMBULATOR 350.1.13.21 College Y 0.2.7.2.686 of [id number] Medi darci 375 e 2020-06-23 2020-06-23 Office Alagilbert, BCM 1.2.840.114 [id number] 13:42:26 16:51:35 Visit Mahboob AMBULATOR 350.1.13.21 Y 0.2.7.2.686 [id number] 2020-01-30 2020-01-30 Office Jorge BCM 1.2.840.114 [id number] [facility] 10:49:04 15:06:03 Visit Mahboob AMBULATOR 350.1.13.21 College Y 0.2.7.2.686 of [id number] [facility] 375 e 2020-01-30 2020-01-30 Office Alagilbert, BCM 1.2.840.114 [id number] 10:49:04 15:06:03 Visit Mahboob AMBULATOR 350.1.13.21 Y 0.2.7.2.686 [id number] 2019-12-16 2019-12-16 Outpatient SLEH SLEH [id number] SLE 00:00:00 00:00:00 [id number] 2019-09-17 2019-09-17 Office Jorge BCM 1.2.840.114 [id number] [facility] 10:55:39 11:56:54 Visit Mahboob AMBULATOR 350.1.13.21 College Y 0.2.7.2.686 of [id number] [facility] 315 e 2019-09-17 2019-09-17 Office Alagilbert, BCM 1.2.840.114 [id number] 10:55:39 11:56:54 Visit Mahboob AMBULATOR 350.1.13.21 Y 0.2.7.2.686 [id number] 315 2019-04-09 2019-04-09 Office Alagilbert, BCM 1.2.840.114 [id number] [facility] 10:59:27 12:19:11 Visit Mahboob AMBULATOR 350.1.13.21 College Y 0.2.7.2.686 of [id number] [facility] 315 e 2019-04-09 2019-04-09 Office Alagilbert, BCM 1.2.840.114 [id number] 10:59:27 12:19:11 Visit Mahboob AMBULATOR 350.1.13.21 Y 0.2.7.2.686 [id number] 315 Results Test Description Test Time Test Comments Results Result Comments Source POCT-GLUCOSE METER 2021-06-18 12:20:51 Test Item Value Reference Range Interpretation Comme nts POC-GLUCOSE METER (BEAKER) 144 mg/dL 70-110 H : TESTED AT [facility] [address] (test code = 1538) [place], [address]: Assistant Store Manager Sales/Techni nuha ID = [id number] for ABELARDO KEYES POCT-GLUCOSE [id number] 10:19:44 Test Item Value Reference Range Interpretation Comments POC-GLUCOSE METER 130 mg/dL 70-110 H : TESTED A T [facility] [address] (BEAKER) (test code = [place], 1538) [address]: Assistant Store Manager Sales/Techni nuha ID = [id number] for Khoi Maguire BASIC METABOLIC [id number] 09:21:46 Test Item Value Reference Range Interpretation Comments SODIUM (BEAKER) 141 meq/L 136-145 (test code = 381) POTASSIUM (BEAKER) 5.0 meq/L 3.5-5.1 (test code = 379) CHLORIDE (BEAKER) 105 meq/L 98-107 (test code = 382) CO2 (BEAKER) (test 28 meq/L 22-29 code = 355) BLOOD UREA NITROGEN 25 mg/dL 7-21 H (BEAKER) (test code = 354) CREATININE (BEAKER) 6.46 mg/dL 0.57-1.25 H (test code = 358) GLUCOSE RANDOM 105 mg/dL 70-105 (BEAKER) (test code = 652) CALCIUM (BEAKER) 9.5 mg/dL 8.4-10.2 (test code = 697) EGFR (BEAKER) (test 9 mL/min/1.73 ESTIMAT ED GFR IS code = 1092) sq m NOT ACCURATE CREATININE CLEARANCE IN PREDICTING GLOMERULAR FILTRATION RATE . ESTIMATED GFR I S NOT APPLICABLE FOR DIALYSIS PATIEN TS. Assistant Store Manager Sales ID - EMERSONPROTHROMBIN TIME/[id number] 08:51:30 Test Item Value Reference Range Interpretation Comments PROTIME (BEAKER) 19.2 seconds 11.9-14.2 H (test code = 759) INR (BEAKER) (test 1.64 See_Comment [Automat ed message] code = 370) The system [employer] generated this result transmitted ref erence range: <=5.90. The reference range was not used to int erpret this result as normal/abnormal . RECOMMENDED COUMADIN/WARFARIN INR THERAPY RANGESSTANDARD DOSE: 2.0 - 3.0 Includes: PROPHYLAXIS forvenous thrombosis, systemic embolization; TREATMENT for venous thrombosis and/or pulmonary embolus.HIGH RISK: Target INR is 2.5-3.5 for patients with mechanical heart valves.CBC W/PLT COUNT & AUTO DIFFERENTIAL 2021-06-18 08:39:28 Test Item Value Reference Range Interpretation Comments WHITE BLOOD CELL COUNT (BEAKER) 5.9 K/ L 3.5-10.5 (test code = 775) RED BLOOD CELL COUNT (BEAKER) 2.76 M/ L 4.63-6.08 L (test code = 761) HEMOGLOBIN (BEAKER) (test code = 9.4 GM/DL 13.7-17.5 L 410) HEMATOCRIT (BEAKER) (test code = 28.6 % 40.1-51.0 L 411) MEAN CORPUSCULAR VOLUME (BEAKER) 103.6 fL 79.0-92.2 H (test code = 753) MEAN CORPUSCULAR HEMOGLOBIN 34.1 pg 25.7-32.2 H (BEAKER) (test code = 751) MEAN CORPUSCULAR HEMOGLOBIN CONC 32.9 GM/DL 32.3-36.5 (BEAKER) (test code = 752) RED CELL DISTRIBUTION WIDTH 14.9 % 11.6-14.4 H (BEAKER) (test code = 412) PLATELET COUNT (BEAKER) (test 166 K/CU MM 150-450 code = 756) MEAN PLATELET VOLUME (BEAKER) 11.2 fL 9.4-12.4 (test code = 754) NUCLEATED RED BLOOD CELLS 0 /100 WBC 0-0 (BEAKER) (test code = 413) NEUTROPHILS RELATIVE PERCENT 56 % (BEAKER) (test code = 429) LYMPHOCYTES RELATIVE PERCENT 29 % (BEAKER) (test code = 430) MONOCYTES RELATIVE PERCENT 11 % (BEAKER) (test code = 431) EOSINOPHILS RELATIVE PERCENT 3 % (BEAKER) (test code = 432) BASOPHILS RELATIVE PERCENT 1 % (BEAKER) (test code = 437) NEUTROPHILS ABSOLUTE COUNT 3.33 K/ L 1.78-5.38 (BEAKER) (test code = 670) LYMPHOCYTES ABSOLUTE COUNT 1.72 K/ L 1.32-3.57 (BEAKER) (test code = 414) MONOCYTES ABSOLUTE COUNT (BEAKER) 0.64 K/ L 0.30-0.82 (test code = 415) EOSINOPHILS ABSOLUTE COUNT 0.15 K/ L 0.04-0.54 (BEAKER) (test code = 416) BASOPHILS ABSOLUTE COUNT (BEAKER) 0.04 K/ L 0.01-0.08 (test code = 417) IMMATURE GRANULOCYTES-RELATIVE 1 % 0-1 PERCENT (BEAKER) (test code = 2801) POCT-GLUCOSE [id number] 07:29:31 Test Item Value Reference Range Interpretation Comments POC-GLUCOSE METER 111 mg/dL 70-110 H : TESTED A T [facility] [address] (BEAKER) (test code [facility], = 1538) [address]: Assistant Store Manager Sales/Techni nuha ID = [id number] for RANDI Sanches RADHA POCT-GLUCOSE [id number] 21:54:10 Test Item Value Reference Range Interpretation Comments POC-GLUCOSE METER 159 mg/dL 70-110 H : Notified RN/MD: (AKER) (test code = TESTED AT [facility] 6720 1538) [facility], [address]: Assistant Store Manager Sales/Techni nuha ID = [id number] for DORIE REBOLLEDO HEPATITIS B SURFACE [id number] 21:30:30 Test Item Value Reference Range Interpretation Comments HEPATITIS B SURFACE ANTIGEN (2) Nonreactive Nonreactive (BEAKER) (test code = 2585) Specimen is considered negative for HBsAg.BASIC METABOLIC [id number] 21:16:23 Test Item Value Reference Range Interpretation Comments SODIUM (BEAKER) 140 meq/L 136-145 (test code = 381) POTASSIUM (BEAKER) 4.3 meq/L 3.5-5.1 (test code = 379) CHLORIDE (BEAKER) 101 meq/L 98-107 (test code = 382) CO2 (BEAKER) (test 28 meq/L 22-29 code = 355) BLOOD UREA NITROGEN 24 mg/dL 7-21 H (BEAKER) (test code = 354) CREATININE (BEAKER) 5.48 mg/dL 0.57-1.25 H (test code = 358) GLUCOSE RANDOM 178 mg/dL 70-105 H (BEAKER) (test code = 652) CALCIUM (BEAKER) 9.2 mg/dL 8.4-10.2 (test code = 697) EGFR (BEAKER) (test 10 mL/min/1.73 ESTIMA ERUM GFR IS code = 1092) sq m NOT ACCURATE CREATININE CLEARANCE IN PREDICTING GLOMERULAR FILTRATION RATE . ESTIMATED GFR I S NOT APPLICABLE FOR DIALYSIS PATIEN TS. Assistant Store Manager Sales ID - [id number] (HEMOGRAM ONLY)2021-06-17 20:44:18 Test Item Value Reference Range Interpretation Comments WHITE BLOOD CELL COUNT (BEAKER) 4.6 K/ L 3.5-10.5 (test code = 775) RED BLOOD CELL COUNT (BEAKER) 2.78 M/ L 4.63-6.08 L (test code = 761) HEMOGLOBIN (BEAKER) (test code = 9.4 GM/DL 13.7-17.5 L 410) HEMATOCRIT (BEAKER) (test code = 29.0 % 40.1-51.0 L 411) MEAN CORPUSCULAR VOLUME (BEAKER) 104.3 fL 79.0-92.2 H (test code = 753) MEAN CORPUSCULAR HEMOGLOBIN 33.8 pg 25.7-32.2 H (BEAKER) (test code = 751) MEAN CORPUSCULAR HEMOGLOBIN CONC 32.4 GM/DL 32.3-36.5 (BEAKER) (test code = 752) RED CELL DISTRIBUTION WIDTH 14.6 % 11.6-14.4 H (BEAKER) (test code = 412) PLATELET COUNT (BEAKER) (test 159 K/CU MM 150-450 code = 756) MEAN PLATELET VOLUME (BEAKER) 11.2 fL 9.4-12.4 (test code = 754) NUCLEATED RED BLOOD CELLS 0 /100 WBC 0-0 (BEAKER) (test code = 413) POCT-GLUCOSE [id number] 17:31:27 Test Item Value Reference Range Interpretation Comments POC-GLUCOSE METER 121 mg/dL 70-110 H : TESTED A T [facility] [address] (BEAKER) (test code = [place], 1538) [address]: Assistant Store Manager Sales/Techni nuha ID = [id number] for CHRISTIANO DAMON (CELLAVISION MANUAL DIFF)2021-06-17 14:46:13 Test Item Value Reference Range Interpretation Comments NEUTROPHILS - REL 54 % (CELLAVISION)(BEAKER) (test code = 2816) LYMPHOCYTES - REL 36 % (CELLAVISION)(BEAKER) (test code = 2817) MONOCYTES - REL 6 % (CELLAVISION)(BEAKER) (test code = 2818) EOSINOPHILS - REL 2 % (CELLAVISION)(BEAKER) (test code = 2819) BASOPHILS - REL 1 % (CELLAVISION)(BEAKER) (test code = 2820) BANDS - REL (CELLAVISION)(BEAKER) 1 % 0-10 (test code = 2826) NEUTROPHILS - ABS 3.19 K/ul 1.78-5.38 (CELLAVISION)(BEAKER) (test code = 2830) LYMPHOCYTES - ABS 2.12 K/ul 1.32-3.57 (CELLAVISION)(BEAKER) (test code = 2831) MONOCYTES - ABS 0.35 K/uL 0.30-0.82 (CELLAVISION)(BEAKER) (test code = 2832) EOSINOPHILS - ABS 0.12 K/uL 0.04-0.54 (CELLAVISION)(BEAKER) (test code = 2834) BASOPHILS - ABS 0.06 K/uL 0.01-0.08 (CELLAVISION)(BEAKER) (test code = 2835) BANDS - ABS (CELLAVISION)(BEAKER) 0.06 K/uL 0.00-0.80 (test code = 2840) TOTAL COUNTED (BEAKER) (test code = 100 1351) WBC MORPHOLOGY (BEAKER) (test code Normal = 487) PLT MORPHOLOGY (BEAKER) (test code Normal = 486) POLYCHROMATOPHILLIC RBCS(BEAKER) 1+ few (test code = 478) ANISOCYTOSIS (BEAKER) (test code = 1+ few 961) MICROCYTES (BEAKER) (test code = 1+ few 965) POIKILOCYTES (BEAKER) (test code = 1+ few 966) OVALOCYTES (BEAKER) (test code = 1+ few 477) ARTIFACT (CELLAVISION)(BEAKER) Present (test code = 3432) PLATELET CONCENTRATION Adequate (CELLAVISION)(BEAKER) (test code = 3438) Assistant Store Manager Sales ID - Yi Afshin comments: Slide comments:BASIC METABOLIC [id number] 11:59:33 Test Item Value Reference Range Interpretation Comments SODIUM (BEAKER) 138 meq/L 136-145 (test code = 381) POTASSIUM (BEAKER) 5.2 meq/L 3.5-5.1 H Specimen slightly (test code = 379) hemolyzed CHLORIDE (BEAKER) 98 meq/L 98-107 (test code = 382) CO2 (BEAKER) (test 30 meq/L 22-29 H code = 355) BLOOD UREA NITROGEN 26 mg/dL 7-21 H (BEAKER) (test code = 354) CREATININE (BEAKER) 6.69 mg/dL 0.57-1.25 H Specimen slightly (test code = 358) hemolyzed GLUCOSE RANDOM 160 mg/dL 70-105 H (BEAKER) (test code = 652) CALCIUM (BEAKER) 9.5 mg/dL 8.4-10.2 (test code = 697) EGFR (BEAKER) (test 8 mL/min/1.73 ESTIMAT ED GFR IS code = 1092) sq m NOT ACCURATE CREATININE CLEARANCE IN PREDICTING GLOMERULAR FILTRATION RATE . ESTIMATED GFR I S NOT APPLICABLE FOR DIALYSIS PATIEN TS. Assistant Store Manager Sales ID - LILY LPROTHROMBIN TIME/[id number] 11:44:26 Test Item Value Reference Range Interpretation Comments PROTIME (BEAKER) 22.6 seconds 11.9-14.2 H (test code = 759) INR (BEAKER) (test 2.02 See_Comment [Automat ed message] code = 370) The system [employer] generated this result transmitted ref erence range: <=5.90. The reference range was not used to int erpret this result as normal/abnormal . RECOMMENDED COUMADIN/WARFARIN INR THERAPY RANGESSTANDARD DOSE: 2.0 - 3.0 Includes: PROPHYLAXIS forvenous thrombosis, systemic embolization; TREATMENT for venous thrombosis and/or pulmonary embolus.HIGH RISK: Target INR is 2.5-3.5 for patients with mechanical heart valves.CBC WITH PLATELET COUNT + MANUAL DIFF 2021-06-17 11:39:27 Test Item Value Reference Range Interpretation Comments WHITE BLOOD CELL COUNT (BEAKER) 5.9 K/ L 3.5-10.5 (test code = 775) RED BLOOD CELL COUNT (BEAKER) 3.07 M/ L 4.63-6.08 L (test code = 761) HEMOGLOBIN (BEAKER) (test code = 10.3 GM/DL 13.7-17.5 L 410) HEMATOCRIT (BEAKER) (test code = 31.7 % 40.1-51.0 L 411) MEAN CORPUSCULAR VOLUME (BEAKER) 103.3 fL 79.0-92.2 H (test code = 753) MEAN CORPUSCULAR HEMOGLOBIN 33.6 pg 25.7-32.2 H (BEAKER) (test code = 751) MEAN CORPUSCULAR HEMOGLOBIN CONC 32.5 GM/DL 32.3-36.5 (BEAKER) (test code = 752) RED CELL DISTRIBUTION WIDTH 14.8 % 11.6-14.4 H (BEAKER) (test code = 412) PLATELET COUNT (BEAKER) (test 163 K/CU MM 150-450 code = 756) MEAN PLATELET VOLUME (BEAKER) 11.2 fL 9.4-12.4 (test code = 754) NUCLEATED RED BLOOD CELLS 0 /100 WBC 0-0 (BEAKER) (test code = 413) [id number] 17:33:00 Test Item Value Reference Range Interpretation Comments GLUBED (test code = 176 MG/DL 70-110 H Performe d by 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 GLUBED) 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 [facility] [id number] 12:22:00 Test Item Value Reference Range Interpretation Comments GLUBED (test code = 272 MG/DL 70-110 H Performe d by certified GLUBED) 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 [facility] BASIC METABOLIC [id number] 08:28:00 Test Item Value Reference Range Interpretation Comments SODIUM (test code = NA) 135 mEq/L 134-147 N POTASSIUM (test code = 4.4 mEq/L 3.4-5.0 N K) CHLORIDE (test code = 99 mEq/L 100-108 L CL) CARBON DIOXIDE (test 28 mEq/L 21-33 N code = CO2) ANION GAP (test code = 13 0-20 N GAP) GLUCOSE (test code = 140 mg/dL 70-110 H GLU) BLOOD UREA NITROGEN 34 mg/dL 7-18 H (test code = BUN) GLOMERULAR FILTRATION 7.3 80-90 L Units of measure = RATE (test code = GFR) ml/mi n/1.73 m2 CREATININE (test code = 7.5 mg/dL 0.6-1.3 H CREAT) CALCIUM (test code = 9.5 mg/dL 8.0-10.5 N CA) [id number] 08:28:00 Test Item Value Reference Range Interpretation Comments MAGNESIUM (test code = MAG) 2.39 mg/dL 1.8-2.4 N CBC W/O [id number] 07:47:00 Test Item Value Reference Range Interpretation Comments WHITE BLOOD CELL (test code = 7.0 x10 3/uL 4.5-11.0 N WBC) RED BLOOD CELL (test code = 2.99 x10 6/uL 4.00-5.60 L RBC) HEMOGLOBIN (test code = HGB) 10.4 g/dL 12.5-16.9 L HEMATOCRIT (test code = HCT) 32.3 % 37.5-50.7 L MEAN CELL VOLUME (test code = 108.0 fL 81.0-99.0 H MCV) MEAN CELL HGB (test code = MCH) 34.8 pg 27.0-33.0 H MEAN CELL HGB CONCETRATION 32.2 g/dL 33.0-37.0 L (test code = MCHC) RED CELL DISTRIBUTION WIDTH CV 15.2 % 11.5-14.5 H (test code = RDW) RED CELL DISTRIBUTION WIDTH SD 60.4 fL 37.0-54.0 H (test code = RDW-SD) PLATELET COUNT (test code = 193 x10 3/uL 150-400 N PLT) MEAN PLATELET VOLUME (test code 11.3 fL 7.0-9.0 H = MPV) CBC W/O [id number] 07:38:00 Test Item Value Reference Range Interpretation Comments WHITE BLOOD CELL (test code = x10 3/uL 4.5-11.0 WBC) RED BLOOD CELL (test code = RBC) x10 6/uL 4.00-5.60 HEMOGLOBIN (test code = HGB) g/dL 12.5-16.9 HEMATOCRIT (test code = HCT) % 37.5-50.7 MEAN CELL VOLUME (test code = fL 81.0-99.0 MCV) MEAN CELL HGB (test code = MCH) pg 27.0-33.0 MEAN CELL HGB CONCETRATION (test g/dL 33.0-37.0 code = MCHC) RED CELL DISTRIBUTION WIDTH CV % 11.5-14.5 (test code = RDW) PLATELET COUNT (test code = PLT) 193 x10 3/uL 150-400 N [id number] 06:25:00 Test Item Value Reference Range Interpretation Comments GLUBED (test code = 138 MG/DL 70-110 H Performe d by certified GLUBED) 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 [facility] TSH REFLEX TO [id number] 02:17:00 Test Item Value Reference Range Interpretation Comments TSH REFLEX TO FT4 (test code = 1.44 IU/mL 0.42-5.47 N TSHREFLEX) HGBA1C%2020-06-30 02:13:00 Test Item Value Reference Range Interpretation Comments HGBA1C% (test code = HGBA1C%) 5.9 %A1C 4.8-6.0 N CBC W/AUTO [id number] 00:49:00 Test Item Value Reference Range Interpretation Comments WHITE BLOOD CELL (test code = 6.8 x10 3/uL 4.5-11.0 N WBC) RED BLOOD CELL (test code = 3.06 x10 6/uL 4.00-5.60 L RBC) HEMOGLOBIN (test code = HGB) 10.8 g/dL 12.5-16.9 L HEMATOCRIT (test code = HCT) 33.5 % 37.5-50.7 L MEAN CELL VOLUME (test code = 109.5 fL 81.0-99.0 H MCV) MEAN CELL HGB (test code = MCH) 35.3 pg 27.0-33.0 H MEAN CELL HGB CONCETRATION 32.2 g/dL 33.0-37.0 L (test code = MCHC) RED CELL DISTRIBUTION WIDTH CV 14.9 % 11.5-14.5 H (test code = RDW) RED CELL DISTRIBUTION WIDTH SD 59.3 fL 37.0-54.0 H (test code = RDW-SD) PLATELET COUNT (test code = 177 x10 3/uL 150-400 N PLT) MEAN PLATELET VOLUME (test code 10.7 fL 7.0-9.0 H = MPV) NEUTROPHIL % (test code = NT%) 62.8 % 56.0-77.0 N IMMATURE GRANULOCYTE % (test 0.9 % 0.0-2.0 N code = IG%) LYMPHOCYTE % (test code = LY%) 25.0 % 14.0-32.0 N MONOCYTE % (test code = MO%) 7.7 % 4.8-9.0 N EOSINOPHIL % (test code = EO%) 2.6 % 0.3-3.7 N BASOPHIL % (test code = BA%) 1.0 % 0.0-2.0 N NUCLEATED RBC % (test code = 0.0 % 0-0 N NRBC%) NEUTROPHIL # (test code = NT#) 4.29 x10 3/uL 2.0-7.6 N IMMATURE GRANULOCYTE # (test 0.06 x10 3/uL 0.00-0.03 H code = IG#) LYMPHOCYTE # (test code = LY#) 1.71 x10 3/uL 1.0-3.8 N MONOCYTE # (test code = MO#) 0.53 x10 3/uL 0.1-0.8 N EOSINOPHIL # (test code = EO#) 0.18 x10 3/uL 0.0-0.2 N BASOPHIL # (test code = BA#) 0.07 x10 3/uL 0.0-0.2 N NUCLEATED RBC # (test code = 0.00 x10 3/uL 0.0-0.1 N NRBC#) MANUAL DIFF REQUIRED (test code NO = MDIFF) RBC [id number] 00:49:00 Test Item Value Reference Range Interpretation Comments POLYCHROMASIA (test code = POLC) SLIGHT POIKILOCYTOSIS (test code = POIK) SLIGHT ANISOCYTOSIS (test code = ANISO) 1+ MACROCYTOSIS (test code = MACR) 1+ TEAR DROP CELLS (test code = TEAR) FEW BASIC METABOLIC [id number] 00:25:00 Test Item Value Reference Range Interpretation Comments SODIUM (test code = NA) 134 mEq/L 134-147 N POTASSIUM (test code = 4.7 mEq/L 3.4-5.0 N K) CHLORIDE (test code = 100 mEq/L 100-108 N CL) CARBON DIOXIDE (test 26 mEq/L 21-33 N code = CO2) ANION GAP (test code = 13 0-20 N GAP) GLUCOSE (test code = 147 mg/dL 70-110 H GLU) BLOOD UREA NITROGEN 25 mg/dL 7-18 H (test code = BUN) GLOMERULAR FILTRATION 7.9 80-90 L Units of measure = RATE (test code = GFR) ml/mi n/1.73 m2 CREATININE (test code = 7.0 mg/dL 0.6-1.3 H CREAT) CALCIUM (test code = 9.3 mg/dL 8.0-10.5 N CA) CBC W/AUTO [id number] 00:16:00 Test Item Value Reference Range Interpretation Comments WHITE BLOOD CELL (test code = 6.8 x10 3/uL 4.5-11.0 N WBC) RED BLOOD CELL (test code = 3.06 x10 6/uL 4.00-5.60 L RBC) HEMOGLOBIN (test code = HGB) 10.8 g/dL 12.5-16.9 L HEMATOCRIT (test code = HCT) 33.5 % 37.5-50.7 L MEAN CELL VOLUME (test code = 109.5 fL 81.0-99.0 H MCV) MEAN CELL HGB (test code = MCH) 35.3 pg 27.0-33.0 H MEAN CELL HGB CONCETRATION 32.2 g/dL 33.0-37.0 L (test code = MCHC) RED CELL DISTRIBUTION WIDTH CV 14.9 % 11.5-14.5 H (test code = RDW) RED CELL DISTRIBUTION WIDTH SD 59.3 fL 37.0-54.0 H (test code = RDW-SD) PLATELET COUNT (test code = 177 x10 3/uL 150-400 N PLT) MEAN PLATELET VOLUME (test code 10.7 fL 7.0-9.0 H = MPV) NEUTROPHIL % (test code = NT%) 62.8 % 56.0-77.0 N IMMATURE GRANULOCYTE % (test 0.9 % 0.0-2.0 N code = IG%) LYMPHOCYTE % (test code = LY%) 25.0 % 14.0-32.0 N MONOCYTE % (test code = MO%) 7.7 % 4.8-9.0 N EOSINOPHIL % (test code = EO%) 2.6 % 0.3-3.7 N BASOPHIL % (test code = BA%) 1.0 % 0.0-2.0 N NUCLEATED RBC % (test code = 0.0 % 0-0 N NRBC%) NEUTROPHIL # (test code = NT#) 4.29 x10 3/uL 2.0-7.6 N IMMATURE GRANULOCYTE # (test 0.06 x10 3/uL 0.00-0.03 H code = IG#) LYMPHOCYTE # (test code = LY#) 1.71 x10 3/uL 1.0-3.8 N MONOCYTE # (test code = MO#) 0.53 x10 3/uL 0.1-0.8 N EOSINOPHIL # (test code = EO#) 0.18 x10 3/uL 0.0-0.2 N BASOPHIL # (test code = BA#) 0.07 x10 3/uL 0.0-0.2 N NUCLEATED RBC # (test code = 0.00 x10 3/uL 0.0-0.1 N NRBC#) MANUAL DIFF REQUIRED (test code NO = MDIFF) RBC [id number] 00:16:00 Test Item Value Reference Range Interpretation Comments ANISOCYTOSIS (test code = ANISO) CBC W/AUTO [id number] 00:13:00 Test Item Value Reference Range Interpretation Comments WHITE BLOOD CELL (test code = 6.8 x10 3/uL 4.5-11.0 N WBC) RED BLOOD CELL (test code = 3.06 x10 6/uL 4.00-5.60 L RBC) HEMOGLOBIN (test code = HGB) 10.8 g/dL 12.5-16.9 L HEMATOCRIT (test code = HCT) 33.5 % 37.5-50.7 L MEAN CELL VOLUME (test code = 109.5 fL 81.0-99.0 H MCV) MEAN CELL HGB (test code = MCH) 35.3 pg 27.0-33.0 H MEAN CELL HGB CONCETRATION 32.2 g/dL 33.0-37.0 L (test code = MCHC) RED CELL DISTRIBUTION WIDTH CV 14.9 % 11.5-14.5 H (test code = RDW) RED CELL DISTRIBUTION WIDTH SD 59.3 fL 37.0-54.0 H (test code = RDW-SD) PLATELET COUNT (test code = 177 x10 3/uL 150-400 N PLT) MEAN PLATELET VOLUME (test code 10.7 fL 7.0-9.0 H = MPV) NEUTROPHIL % (test code = NT%) 62.8 % 56.0-77.0 N IMMATURE GRANULOCYTE % (test 0.9 % 0.0-2.0 N code = IG%) LYMPHOCYTE % (test code = LY%) 25.0 % 14.0-32.0 N MONOCYTE % (test code = MO%) 7.7 % 4.8-9.0 N EOSINOPHIL % (test code = EO%) 2.6 % 0.3-3.7 N BASOPHIL % (test code = BA%) 1.0 % 0.0-2.0 N NUCLEATED RBC % (test code = 0.0 % 0-0 N NRBC%) NEUTROPHIL # (test code = NT#) 4.29 x10 3/uL 2.0-7.6 N IMMATURE GRANULOCYTE # (test 0.06 x10 3/uL 0.00-0.03 H code = IG#) LYMPHOCYTE # (test code = LY#) 1.71 x10 3/uL 1.0-3.8 N MONOCYTE # (test code = MO#) 0.53 x10 3/uL 0.1-0.8 N EOSINOPHIL # (test code = EO#) 0.18 x10 3/uL 0.0-0.2 N BASOPHIL # (test code = BA#) 0.07 x10 3/uL 0.0-0.2 N NUCLEATED RBC # (test code = 0.00 x10 3/uL 0.0-0.1 N NRBC#) MANUAL DIFF REQUIRED (test code NO = MDIFF) RBC [id number] 00:13:00 Test Item Value Reference Range Interpretation Comments ANISOCYTOSIS (test code = ANISO) AFB CULTURE + SMEAR (NON-SPUTUM)2019-12-09 13:35:00 Test Item Value Reference Range Interpretation Comments CULTURE (BEAKER) (test No acid-fast bacilli code = 1095) isolated in 42 days AFB SMEAR (BEAKER) No acid fast bacilli (test code = 994) seen FUNGUS CULTURE + [id number] 16:48:00 Test Item Value Reference Range Interpretation Comments CULTURE (BEAKER) (test No fungus isolated in code = 1095) 28 days FUNGUS SMEAR (BEAKER) No fungi seen (test code = 1406) RAD, CHEST, 1 VIEW, NON [id number] 11:53:00Reason for exam:->S/p CT surgeryShould this be performed at the bedside?->YesFINAL REPORT RAD, CHEST, 1 VIEW, NON DEPT INDICATION: S/p CT surgery COMPARISON: Prior day's exam FINDINGS: Portable frontal view of the chest. IMPRESSION: Support Lines: Stable. Lungs and pleura: Unchanged airspace and pleural opacities. No pneumothorax.Heart and mediastinum: Stable contours. Stable surgical changes.Additional findings: None. Signed: Dasia Britt Verified Date/Time: 11/06/2019 11:53:03 Reading Location: [facility] Radiology Reading Room POCT-GLUCOSE [id number] 11:31:00 Test Item Value Reference Range Interpretation Comments POC-GLUCOSE METER 149 mg/dL 70-110 H : TESTED A T [facility] 6720 (BEAKER) (test code = [place], 1538) 78097: Assistant Store Manager Sales/Techni nuha ID = [id number] for ines Alfredo CBC W/PLT COUNT & AUTO [id number] 10:58:00 Test Item Value Reference Range Interpretation [...] CONCENTRATION Adequate (CELLAVISION)(BEAKER) (test code = 3438) Assistant Store Manager Sales ID - ektayumikokinaRaysashca comments: Slide comments:BASIC METABOLIC PANEL 2019-11-06 05:32:00 Test Item Value Reference Range Interpretation [...] S NOT APPLICABLE FOR DIALYSIS PATIEN TS. Assistant Store Manager Sales ID - OZZY [id number] 05:30:00 Test Item Value Reference Range Interpretation Comments PHOSPHORUS (BEAKER) (test code = 3.3 mg/dL 2.3-4.7 604) Assistant Store Manager Sales ID - OZZY [id number] 05:30:00 Test Item Value Reference Range Interpretation Comments MAGNESIUM (BEAKER) (test code = 2.2 mg/dL 1.6-2.6 627) Assistant Store Manager Sales ID - OZZY OCT-GLUCOSE [id number] 22:07:00 Test Item Value Reference Range Interpretation Comments POC-GLUCOSE METER 142 mg/dL 70-110 H : TESTED A T [facility] 6720 (BEAKER) (test code = [facility], 1538) 66973: Assistant Store Manager Sales/Techni nuha ID = [id number] for SHAYLA HAMMONDS III TROPONIN [id number] 17:33:00 Test Item Value Reference Range Interpretation Comments TROPONIN I (BEAKER) (test code = 0.42 ng/mL 0.00-0.03 397) Troponin I (TnI) levels [...] failure, acidosis, acute neurological disease, and persistent tachyarrhythmia.Assistant Store Manager Sales ID - BSPOCT-GLUCOSE METER 2019-11-05 15:21:00 Test Item Value Reference Range Interpretation Comments POC-GLUCOSE METER 126 mg/dL 70-110 H : TESTED A T [facility] 6720 (BEAKER) (test code = [facility], 153) 41347: Assistant Store Manager Sales/Techni nuha ID = [id number] for ELDA KEBEDE WINDY POCT-GLUCOSE [id number] 12:15:00 Test Item Value Reference Range Interpretation Comments POC-GLUCOSE METER 226 mg/dL 70-110 H : TESTED A T [facility] 6720 (BEAKER) (test code = [facility], 153) 86374: Assistant Store Manager Sales/Techni nuha ID = [id number] for CHARANJIT MORGAN BASIC METABOLIC [id number] 08:09:00 Test Item Value Reference Range Interpretation [...] S NOT APPLICABLE FOR DIALYSIS PATIEN TS. Assistant Store Manager Sales ID - NIMESH CPOCT-GLUCOSE [id number] 08:07:00 Test Item Value Reference Range Interpretation Comments POC-GLUCOSE METER 170 mg/dL 70-110 H : TESTED A T [facility] 6720 (BEAKER) (test code = [place], 1538) 79892: Assistant Store Manager Sales/Techni nuha ID = [id number] for CHARANJIT MORGAN [id number] 07:56:00 Test Item Value Reference Range Interpretation Comments PHOSPHORUS (BEAKER) (test code = 4.2 mg/dL 2.3-4.7 604) Assistant Store Manager Sales ID - NIMESH [id number] 07:56:00 Test Item Value Reference Range Interpretation Comments MAGNESIUM (BEAKER) (test code = 2.4 mg/dL 1.6-2.6 627) Assistant Store Manager Sales ID - NIMESH CCBC W/PLT COUNT & AUTO [id number] 05:48:00 Test Item Value Reference Range Interpretation [...] = 2801) RAD, CHEST, 1 VIEW, NON [id number] 05:37:00Reason for exam:->Vapotherm, bipapShould this be performed [...] Sanchez MDReport Verified Date/Time: 11/05/2019 05:37:42 POCT-GLUCOSE [id number] 21:21:00 Test Item Value Reference Range Interpretation Comments POC-GLUCOSE METER 175 mg/dL 70-110 H : TESTED A T [facility] 6720 (BEAKER) (test code = [facility], 1538) 05608: Assistant Store Manager Sales/Techni nuha ID = [id number] for Otilia Eaton POCT-GLUCOSE [id number] 18:00:00 Test Item Value Reference Range Interpretation Comments POC-GLUCOSE METER 170 mg/dL 70-110 H : TESTED A T [facility] 6720 (BEAKER) (test code = [facility], 1538) 43958: Assistant Store Manager Sales/Techni nuha ID = [id number] for Alfredo Aguila ANAEROBIC [id number] 17:27:00 Test Item Value Reference Range Interpretation Comments CULTURE (BEAKER) (test No anaerobes isolated code = 1095) POCT-GLUCOSE [id number] 11:46:00 Test Item Value Reference Range Interpretation Comments POC-GLUCOSE METER 183 mg/dL 70-110 H : TESTED A T [facility] 6720 (BEAKER) (test code = [facility], 1538) 07046: Assistant Store Manager Sales/Techni nuha ID = [id number] for Alfredo Aguila CBC W/PLT COUNT & AUTO [id number] 08:59:00 Test Item Value Reference Range Interpretation [...] CONCENTRATION Adequate (CELLAVISION)(BEAKER) (test code = 3438) Assistant Store Manager Sales ID - Meghna OverholtUser comments: Slide comments:CBC W/PLT COUNT & AUTO [id number] 08:25:00 Test Item Value Reference Range Interpretation [...] CONCENTRATION Adequate (CELLAVISION)(BEAKER) (test code = 3438) Assistant Store Manager Sales ID - Jaren comments: Slide comments:POCT-GLUCOSE [id number] 08:02:00 Test Item Value Reference Range Interpretation Comments POC-GLUCOSE METER 108 mg/dL 70-110 : TESTED A T [facility] 6720 (BEAKER) (test code = [place], 1538) 65492: Assistant Store Manager Sales/Techni nuha ID = [id number] for TE SAMIRA STROUD BASIC METABOLIC [id number] 07:44:00 Test Item Value Reference Range Interpretation [...] S NOT APPLICABLE FOR DIALYSIS PATIEN TS. Assistant Store Manager Sales ID - GERRY MBASIC METABOLIC [id number] 07:44:00 Test Item Value Reference Range Interpretation [...] S NOT APPLICABLE FOR DIALYSIS PATIEN TS. Assistant Store Manager Sales ID - GERRY [id number] 07:42:00 Test Item Value Reference Range Interpretation Comments MAGNESIUM (BEAKER) (test code = 2.5 mg/dL 1.6-2.6 627) Assistant Store Manager Sales ID - GERRY MPOCT-GLUCOSE [id number] 21:32:00 Test Item Value Reference Range Interpretation Comments POC-GLUCOSE METER 196 mg/dL 70-110 H : TESTED A T [facility] 6720 (BEAKER) (test code = [facility], 1538) 24757: Assistant Store Manager Sales/Techni nuha ID = [id number] for DA VIS, NAIMA POCT-GLUCOSE [id number] 16:57:00 Test Item Value Reference Range Interpretation Comments POC-GLUCOSE METER 138 mg/dL 70-110 H : TESTED A T [facility] 6720 (BEAKER) (test code = [facility], 1538) 53993: Assistant Store Manager Sales/Techni nuha ID = [id number] for HI LL, SHAI POCT-GLUCOSE [id number] 12:53:00 Test Item Value Reference Range Interpretation Comments POC-GLUCOSE METER 229 mg/dL 70-110 H : TESTED A T [facility] 6720 (BEAKER) (test code = ALPHONSO Caiced[place], 1538) 79662: Assistant Store Manager Sales/Techni nuha ID = [id number] for LENNOX MARTINEZ POCT-GLUCOSE [id number] 07:48:00 Test Item Value Reference Range Interpretation Comments POC-GLUCOSE METER 128 mg/dL 70-110 H : TESTED A T [facility] 6720 (BEAKER) (test code = ALPHONSO Caiced[place], 1538) 58138: Assistant Store Manager Sales/Techni nuha ID = [id number] for LENNOX MARTINEZ CBC W/PLT COUNT & AUTO [id number] 07:38:00 Test Item Value Reference Range Interpretation Comments WHITE BLOOD CELL COUNT (BEAKER) 5.7 K/ L 3.5-10.5 (test code = [...] CONCENTRATION Adequate (CELLAVISION)(BEAKER) (test code = 3438) Assistant Store Manager Sales ID - Rachael Bello comments: Slide comments:RAD, CHEST, 1 VIEW, NON [id number] 06:47:00Reason for exam:->s/p CABGShould this be performed [...] Ladarius Sanchez MDReport Verified Date/Time: 11/03/2019 06:47:42 IUM, [id number] 06:20:00 Test Item Value Reference Range Interpretation Comments CALCIUM IONIZED (BEAKER) (test 1.19 mmol/L 1.12-1.27 code = 698) PH, BLOOD (BEAKER) (test code = 7.34 1810) BASIC METABOLIC [id number] 04:59:00 Test Item Value Reference Range Interpretation [...] S NOT APPLICABLE FOR DIALYSIS PATIEN TS. Assistant Store Manager Sales ID - GERRY [id number] 04:57:00 Test Item Value Reference Range Interpretation Comments PHOSPHORUS (BEAKER) (test code = 3.1 mg/dL 2.3-4.7 604) Assistant Store Manager Sales ID - GERRY [id number] 04:57:00 Test Item Value Reference Range Interpretation Comments MAGNESIUM (BEAKER) (test code = 2.2 mg/dL 1.6-2.6 627) Assistant Store Manager Sales ID - GERRY MPOCT-GLUCOSE [id number] 22:34:00 Test Item Value Reference Range Interpretation Comments POC-GLUCOSE METER 202 mg/dL 70-110 H : [facility] (BEAKER) (test code = [place], 1538) 07881: Assistant Store Manager Sales/Techni nuha ID = [id number] for ANJALI AGUILA BASIC METABOLIC [id number] 21:31:00 Test Item Value Reference Range Interpretation Comments SODIUM (BEAKER) 134 meq/L 136-145 L (test code = 381) POTASSIUM (BEAKER) 4.4 meq/L 3.5-5.1 (test code = 379) CHLORIDE (BEAKER) 100 meq/L 98-107 (test code = 382) CO2 (BEAKER) (test 23 meq/L 22-29 code = 355) BLOOD UREA NITROGEN 62 [...] S NOT APPLICABLE FOR DIALYSIS PATIEN TS. Assistant Store Manager Sales ID - [id number] 21:30:00 Test Item Value Reference Range Interpretation Comments PHOSPHORUS (BEAKER) (test code = 4.5 mg/dL 2.3-4.7 604) Assistant Store Manager Sales ID - [id number] 21:30:00 Test Item Value Reference Range Interpretation Comments MAGNESIUM (BEAKER) (test code = 2.6 mg/dL 1.6-2.6 627) Assistant Store Manager Sales ID - ARTEM GAS, [id number] 21:10:00 Test Item Value Reference Range Interpretation Comments PH ARTERIAL (BEAKER) (test code = 7.35 7.35-7.45 383) PCO2 ARTERIAL (BEAKER) (test code 50 mmHg 35-45 H = 384) PO2 ARTERIAL (BEAKER) (test code = 71 mmHg 80-90 L 385) O2 SATURATION ARTERIAL (BEAKER) 93.4 % 96.0-97.0 L (test code = 386) HCO3 ARTERIAL (BEAKER) (test code 27 mmol/L - = 388) BASE EXCESS ARTERIAL (BEAKER) 0.8 mmol/L -2.0-3.0 (test code = 387) PATIENT TEMPERATURE (BEAKER) (test 37.0 C code = 1818) FIO2 (BEAKER) (test code = 1819) 36.0 % HEMOGLOBIN AND [id number] 21:03:00 Test Item Value Reference Range Interpretation Comments HEMOGLOBIN (BEAKER) (test code = 8.1 GM/DL 13.7-17.5 L 410) HEMATOCRIT (BEAKER) (test code = 25.9 % 40.1-51.0 L 411) Assistant Store Manager Sales ID - [id number], CHEST, 1 VIEW, NON [id number] 20:50:00Reason for exam:->CoughShould this be performed at the bedside?->YesFINAL REPORT RAD, CHEST, 1 VIEW, NON DEPT INDICATION: Cough COMPARISON: 16 hours prior FINDINGS: Portable frontal view of the chest. IMPRESSION: Support Lines: No significant change. Lungs and pleura: Airspace and pleural opacities are unchanged. No pneumothorax.Heart and mediastinum: Stable contours. Additional findings: None. Signed: Ladarius Sanchez Verified Date/Time: 11/02/2019 20:50:54 POCT-GLUCOSE [id number] 17:17:00 Test Item Value Reference Range Interpretation Comments POC-GLUCOSE METER 127 mg/dL 70-110 H : TESTED A T [facility] 6720 (BEAKER) (test code = [place], 1538) 88084: Assistant Store Manager Sales/Techni nuha ID = [id number] for JONATHAN RODRIGEZ POCT-GLUCOSE [id number] 12:05:00 Test Item Value Reference Range Interpretation Comments POC-GLUCOSE METER 208 mg/dL 70-110 H : TESTED A T [facility] 6720 (BEAKER) (test code = ALPHONSO Caicedo [facility], 1538) 28786: Assistant Store Manager Sales/Techni nuha ID = [id number] for JONATHAN RODRIGEZ POCT-GLUCOSE [id number] 07:38:00 Test Item Value Reference Range Interpretation Comments POC-GLUCOSE METER 104 mg/dL 70-110 : TESTED A T [facility] 6720 (BEAKER) ([facility], 1538) 26565: Assistant Store Manager Sales/Techni nuha ID = [id number] for JONATHAN RODRIGEZ RAD, CHEST, 1 VIEW, NON [id number] 06:31:00Reason for exam:->Chest congestionShould this be performed [...] MDReport Verified Date/Time: 11/02/2019 06:31:02 BASIC METABOLIC [id number] 03:20:00 Test Item Value Reference Range Interpretation Comments SODIUM (BEAKER) 138 meq/L 136-145 (test code = 381) POTASSIUM (BEAKER) 4.4 meq/L 3.5-5.1 (test code = 379) CHLORIDE (BEAKER) 103 meq/L 98-107 (test code = 382) CO2 (BEAKER) (test 26 meq/L -29 code = 355) BLOOD UREA NITROGEN 50 [...] S NOT APPLICABLE FOR DIALYSIS PATIEN TS. Assistant Store Manager Sales ID - GERRY [id number] 03:15:00 Test Item Value Reference Range Interpretation Comments PHOSPHORUS (BEAKER) (test code = 3.9 mg/dL 2.3-4.7 604) Assistant Store Manager Sales ID - GERRY [id number] 03:15:00 Test Item Value Reference Range Interpretation Comments MAGNESIUM (BEAKER) (test code = 2.5 mg/dL 1.6-2.6 627) Assistant Store Manager Sales ID - GERRY [facility] W/PLT COUNT & AUTO [id number] 03:13:00 Test Item Value Reference Range Interpretation [...] PERCENT (BEAKER) (test code = 2801) CALCIUM, [id number] 02:49:00 Test Item Value Reference Range Interpretation Comments CALCIUM IONIZED (BEAKER) (test 1.16 mmol/L 1.12-1.27 code = 698) PH, BLOOD (BEAKER) (test code = 7.39 1810) POCT-GLUCOSE [id number] 23:12:00 Test Item Value Reference Range Interpretation Comments POC-GLUCOSE METER 171 mg/dL 70-110 H : TESTED A T [facility] 6720 (BEAKER) (test code = [facility], 153) [id number]: Assistant Store Manager Sales/Techni nuha ID = [id number] for DO JONH LONDONSY POCT-GLUCOSE [id number] 17:23:00 Test Item Value Reference Range Interpretation Comments POC-GLUCOSE METER 96 mg/dL 70-110 : TESTED A T [facility] 6720 (BEAKER) (test code = [facility], 1538) [id number]: Assistant Store Manager Sales/Techni nuha ID = [id number] for JONATHAN MACHADO BASIC METABOLIC [id number] 17:18:00 Test Item Value Reference Range Interpretation [...] S NOT APPLICABLE FOR DIALYSIS PATIEN TS. Assistant Store Manager Sales ID - [id number] 17:17:00 Test Item Value Reference Range Interpretation Comments PHOSPHORUS (BEAKER) (test code = 3.4 mg/dL 2.3-4.7 604) Assistant Store Manager Sales ID - [id number] 17:17:00 Test Item Value Reference Range Interpretation Comments MAGNESIUM (BEAKER) (test code = 2.4 mg/dL 1.6-2.6 627) Assistant Store Manager Sales ID - BSBASIC METABOLIC [id number] 13:42:00 Test Item Value Reference Range Interpretation [...] S NOT APPLICABLE FOR DIALYSIS PATIEN TS. Assistant Store Manager Sales ID - PIBLANE [id number] 13:40:00 Test Item Value Reference Range Interpretation Comments PHOSPHORUS (BEAKER) (test code = 3.9 mg/dL 2.3-4.7 604) Assistant Store Manager Sales ID - PIBLANE [id number] 13:40:00 Test Item Value Reference Range Interpretation Comments MAGNESIUM (BEAKER) (test code = 2.6 mg/dL 1.6-2.6 627) Assistant Store Manager Sales ID - LILY LCALCIUM, [id number] 12:49:00 Test Item Value Reference Range Interpretation Comments CALCIUM IONIZED (BEAKER) (test 1.13 mmol/L 1.12-1.27 code = 698) PH, BLOOD (BEAKER) (test code = 7.38 1810) POCT-GLUCOSE [id number] 12:14:00 Test Item Value Reference Range Interpretation Comments POC-GLUCOSE METER 147 mg/dL 70-110 H : TESTED A T [facility] 6720 (BEAKER) (test code = [facility] [employer] [facility], 1538) [id number]: Assistant Store Manager Sales/Techni nuha ID = [id number] for JONATHAN RODRIGEZ SURGICALLY OBTAINED CULTURE + GRAM [id number] 10:40:00 Test Item Value Reference Range Interpretation Comments CULTURE (BEAKER) (test No growth code = 1095) GRAM STAIN RESULT <1+ White blood cells (BEAKER) (test code = seen 1123) GRAM STAIN RESULT No organisms seen (BEAKER) (test code = 23338) POCT-GLUCOSE [id number] 07:39:00 Test Item Value Reference Range Interpretation Comments POC-GLUCOSE METER 134 mg/dL 70-110 H : TESTED A T [facility] 6720 (BEAKER) (test code = [facility] Open Utility [facility], 1538) [address]: Assistant Store Manager Sales/Techni nuha ID = [id number] for JONATHAN RODRIGEZ BLOOD GAS, [id number] 05:24:00 Test Item Value Reference Range Interpretation [...] code = 1819) 40.0 % BASIC METABOLIC [id number] 05:23:00 Test Item Value Reference Range Interpretation [...] S NOT APPLICABLE FOR DIALYSIS PATIEN TS. Assistant Store Manager Sales ID - PIBLANE [id number] 05:18:00 Test Item Value Reference Range Interpretation Comments PHOSPHORUS (BEAKER) (test code = 4.8 mg/dL 2.3-4.7 H 604) Assistant Store Manager Sales ID - LILY [id number] 05:18:00 Test Item Value Reference Range Interpretation Comments MAGNESIUM (BEAKER) (test code = 2.8 mg/dL 1.6-2.6 H 627) Assistant Store Manager Sales ID - PIAYA LCBC (HEMOGRAM ONLY)2019-11-01 04:59:00 Test Item Value [...] = 413) RAD, CHEST, 1 VIEW, NON [id number] 04:16:00Reason for exam:->post cardiac surgeryFINAL REPORT RAD, [...] Stable surgical changes.Additional findings: None. Signed: Sigrid Vieyraort Verified Date/Time: 11/01/2019 04:16:36 BASIC METABOLIC [id number] 23:53:00 Test Item Value Reference Range Interpretation [...] S NOT APPLICABLE FOR DIALYSIS PATIEN TS. Assistant Store Manager Sales ID - LILY [id number] 23:26:00 Test Item Value Reference Range Interpretation Comments POTASSIUM (BEAKER) (test code = 4.6 meq/L 3.5-5.1 379) Assistant Store Manager Sales ID - LILY [id number] 23:26:00 Test Item Value Reference Range Interpretation Comments MAGNESIUM (BEAKER) (test code = 2.7 mg/dL 1.6-2.6 H 627) Assistant Store Manager Sales ID - LILY [id number] 23:26:00 Test Item Value Reference Range Interpretation Comments PHOSPHORUS (BEAKER) (test code = 4.6 mg/dL 2.3-4.7 604) Assistant Store Manager Sales ID - LILY [id number] 23:26:00 Test Item Value Reference Range Interpretation Comments GLUCOSE RANDOM (BEAKER) (test code 144 mg/dL 70-105 H = 652) Assistant Store Manager Sales ID - LILY LHEMOGLOBIN AND [id number] 23:06:00 Test Item Value Reference Range Interpretation Comments HEMOGLOBIN (BEAKER) (test code = 7.2 GM/DL 13.7-17.5 L 410) HEMATOCRIT (BEAKER) (test code = 22.9 % 40.1-51.0 L 411) Assistant Store Manager Sales ID - ShaanPOCT-GLUCOSE [id number] 18:25:00 Test Item Value Reference Range Interpretation Comments POC-GLUCOSE METER 143 mg/dL 70-110 H : TESTED A T [facility] 6720 (BEAKER) (test code = [facility], 1538) [address]: Assistant Store Manager Sales/Techni nuha ID = [id number] for MALACHI NASH [id number] 16:52:00 Test Item Value Reference Range Interpretation Comments POTASSIUM (BEAKER) (test code = 4.8 meq/L 3.5-5.1 379) Assistant Store Manager Sales ID - ELEAZAR EPOCT-GLUCOSE [id number] 12:46:00 Test Item Value Reference Range Interpretation Comments POC-GLUCOSE METER 142 mg/dL 70-110 H : TESTED A T [facility] 6720 (BEAKER) (test code = [facility], 1538) [address]: Assistant Store Manager Sales/Techni nuha ID = [id number] for MALACHI NASH [id number] 10:51:00 Test Item Value Reference Range Interpretation Comments POTASSIUM (BEAKER) (test code = 4.7 meq/L 3.5-5.1 379) Assistant Store Manager Sales ID - SALONI [id number] 10:51:00 Test Item Value Reference Range Interpretation Comments PHOSPHORUS (BEAKER) (test code = 4.8 mg/dL 2.3-4.7 H 604) Assistant Store Manager Sales ID - SALONI [id number] 10:51:00 Test Item Value Reference Range Interpretation Comments MAGNESIUM (BEAKER) (test code = 2.6 mg/dL 1.6-2.6 627) Assistant Store Manager Sales ID - SALONI FPOCT-GLUCOSE [id number] 09:54:00 Test Item Value Reference Range Interpretation Comments POC-GLUCOSE METER 164 mg/dL 70-110 H : TESTED A T [facility] 6720 (BEAKER) (test code = [facility], 1538) [address]: Assistant Store Manager Sales/Techni nuha ID = [id number] for NIMESH SANCHEZ POCT-GLUCOSE [id number] 09:27:00 Test Item Value Reference Range Interpretation Comments POC-GLUCOSE METER 163 mg/dL 70-110 H : TESTED A T [facility] 6720 (BEAKER) (test code = [facility] [place], 1538) [address]: Assistant Store Manager Sales/Techni nuha ID = [id number] for DAVID BENNETT RAD, CHEST, 1 VIEW, NON [id number] 07:53:00Reason for exam:->post cardiac surgeryFINAL REPORT RAD, [...] MDReport Verified Date/Time: 10/31/2019 07:53:55 Reading Location: [facility] Radiology Reading Room BASIC METABOLIC [id number] 04:29:00 Test Item Value Reference Range Interpretation [...] S NOT APPLICABLE FOR DIALYSIS PATIEN TS. Assistant Store Manager Sales ID - LILY [id number] 04:26:00 Test Item Value Reference Range Interpretation Comments PHOSPHORUS (BEAKER) (test code = 5.0 mg/dL 2.3-4.7 H 604) Assistant Store Manager Sales ID - LILY [id number] 04:26:00 Test Item Value Reference Range Interpretation Comments MAGNESIUM (BEAKER) (test code = 2.5 mg/dL 1.6-2.6 627) Assistant Store Manager Sales ID - LILY [id number] 04:01:00 Test Item Value Reference Range Interpretation [...] is2.5-3.5 for patients wiht mechanical heart valves.PROTHROMBIN TIME/[id number] 04:00:00 Test Item Value Reference Range Interpretation [...] 0-0 (test code = 413) BLOOD GAS, [id number] 03:46:00 Test Item Value Reference Range Interpretation [...] (BEAKER) (test code = 1819) 40.0 % [id number] 01:25:00 Test Item Value Reference Range Interpretation Comments POTASSIUM (BEAKER) (test code = 4.7 meq/L 3.5-5.1 379) Assistant Store Manager Sales ID - PIAYA [id number] 20:33:00 Test Item Value Reference Range Interpretation Comments POTASSIUM (BEAKER) (test code = 4.7 meq/L 3.5-5.1 379) Assistant Store Manager Sales ID - [id number] 20:33:00 Test Item Value Reference Range Interpretation Comments MAGNESIUM (BEAKER) (test code = 2.4 mg/dL 1.6-2.6 627) Assistant Store Manager Sales ID - [id number] 20:33:00 Test Item Value Reference Range Interpretation Comments PHOSPHORUS (BEAKER) (test code = 4.5 mg/dL 2.3-4.7 604) Assistant Store Manager Sales ID - BSPOCT-GLUCOSE [id number] 13:55:00 Test Item Value Reference Range Interpretation Comments POC-GLUCOSE METER 149 mg/dL 70-110 H : TESTED A T [facility] 6720 (BEAKER) (test code = [facility] [place], 1538) [address]: Assistant Store Manager Sales/Techni nuha ID = [id number] for NIMESH SANCHEZ BLOOD GAS, [id number] 11:08:00 Test Item Value Reference Range Interpretation [...] (BEAKER) (test code = 1819) 40.0 % [id number] 10:23:00 Test Item Value Reference Range Interpretation Comments PHOSPHORUS (BEAKER) (test code = 4.9 mg/dL 2.3-4.7 H 604) Assistant Store Manager Sales ID - [id number] 10:23:00 Test Item Value Reference Range Interpretation Comments MAGNESIUM (BEAKER) (test code = 2.7 mg/dL 1.6-2.6 H 627) Assistant Store Manager Sales ID - [id number] 10:23:00 Test Item Value Reference Range Interpretation Comments POTASSIUM (BEAKER) (test code = 5.2 meq/L 3.5-5.1 H 379) Assistant Store Manager Sales ID - DBPOCT-GLUCOSE [id number] 10:07:00 Test Item Value Reference Range Interpretation Comments POC-GLUCOSE METER 118 mg/dL 70-110 H : TESTED A T [facility] 6720 (BEAKER) (test code = [facility]PHON[facility] Caicedo [facility], 1538) [address]: Assistant Store Manager Sales/Techni nuha ID = [id number] for NIMESH SANCHEZ RAD, CHEST, 1 VIEW, NON [id number] 06:52:00Reason for exam:->post cardiac surgeryFINAL REPORT RAD, [...] surgical changes.Additional findings: None. Signed: Yuridia Hand [facility] Verified Date/Time: 10/30/2019 06:52:57 POCT-GLUCOSE [id number] 06:39:00 Test Item Value Reference Range Interpretation Comments POC-GLUCOSE METER 146 mg/dL 70-110 H : Notified RN/MD: (EMMA) (test code = TESTED AT [facility] 6720 1538) [facility], [address]: Assistant Store Manager Sales/Techni nuha ID = [id number] for SOPHIA MOY CECILIA BASIC METABOLIC [id number] 05:20:00 Test Item Value Reference Range Interpretation [...] S NOT APPLICABLE FOR DIALYSIS PATIEN TS. Assistant Store Manager Sales ID - GERRY [id number] 05:08:00 Test Item Value Reference Range Interpretation Comments MAGNESIUM (BEAKER) 2.6 mg/dL 1.6-2.6 Specimen slightly (test code = 627) hemolyzed Assistant Store Manager Sales ID - GERRY [id number] 05:08:00 Test Item Value Reference Range Interpretation Comments PHOSPHORUS (BEAKER) 5.0 mg/dL 2.3-4.7 H Specimen slightly (test code = 604) hemolyzed Assistant Store Manager Sales ID - GERRY MCBC (HEMOGRAM ONLY)2019-10-30 05:00:00 [...] (BEAKER) (test code = 413) BLOOD GAS, [id number] 04:50:00 Test Item Value Reference Range Interpretation [...] (test code = 1819) 60.0 % POCT-GLUCOSE [id number] 03:25:00 Test Item Value Reference Range Interpretation Comments POC-GLUCOSE METER 136 mg/dL 70-110 H : Notified RN/MD: (ANSHULHÉCTOR) (test code = TESTED AT [place] [address] 6625) [facility], [address]: Assistant Store Manager Sales/Techni nuha ID = [id number] for CECILIA CRISOSTOMO [id number] 01:23:00 Test Item Value Reference Range Interpretation Comments POTASSIUM (BEAKER) (test code = 5.2 meq/L 3.5-5.1 H 379) Assistant Store Manager Sales ID - GERRY MPOCT-GLUCOSE [id number] 01:15:00 Test Item Value Reference Range Interpretation Comments POC-GLUCOSE METER 149 mg/dL 70-110 H : TESTED A T [facility] 6720 (BEAKER) (test code = [facility], 153) [address]: Assistant Store Manager Sales/Techni nuha ID = [id number] for CHARLOTTE MUHAMMAD POCT-GLUCOSE [id number] 00:01:00 Test Item Value Reference Range Interpretation Comments POC-GLUCOSE METER 143 mg/dL 70-110 H : TESTED A T [facility] 6720 ([facility]) (test code = [facility], 153) [address]: Assistant Store Manager Sales/Techni nuha ID = [id number] for CHARLOTTE MUHAMMAD POCT-GLUCOSE [id number] 21:28:00 Test Item Value Reference Range Interpretation Comments POC-GLUCOSE METER 157 mg/dL 70-110 H : Notified RN/MD: ([facility]) (test code = TESTED AT [place] [address]) [facility], [address]: Assistant Store Manager Sales/Techni nuha ID = [id number] for SOPHIA RADHACECILIA HARRINGTON POCT-GLUCOSE [id number] 21:21:00 Test Item Value Reference Range Interpretation Comments POC-GLUCOSE METER 178 mg/dL 70-110 H : TESTED A [place] [address] ([facility]) (test code = [facility], 153) [address]: Assistant Store Manager Sales/Techni nuha ID = [id number] for GURMEET QUINTANA JR BLOOD GAS, [id number] 20:04:00 Test Item Value Reference Range Interpretation [...] code = 1819) 60.0 % LACTIC ACID, [id number] 20:04:00 Test Item Value Reference Range Interpretation Comments LACTATE BLOOD ARTERIAL (2) 2.2 mmol/L 0.5-2.2 (BEAKER) (test code = 2874) Assistant Store Manager Sales ID - DBCALCIUM, [id number] 19:58:00 Test Item Value Reference Range Interpretation Comments CALCIUM IONIZED (BEAKER) (test 1.19 mmol/L 1.12-1.27 code = 698) PH, BLOOD (BEAKER) (test code = 7.37 1810) GLUCOSE-STAT [id number] 19:58:00 Test Item Value Reference Range Interpretation Comments GLUCOSE RANDOM (BEAKER) (test code 168 mg/dL 70-110 H = 652) HGB/HCT (H&H) - STAT [id number] 19:58:00 Test Item Value Reference Range Interpretation Comments HEMOGLOBIN (BEAKER) (test code = 9.1 g/dL 13.0-16.8 L 410) HEMATOCRIT (BEAKER) (test code = 27.0 % 40.0-50.0 L 411) SODIUM NA-STAT [id number] 19:57:00 Test Item Value Reference Range Interpretation Comments SODIUM (BEAKER) (test code = 381) 139 meq/L 135-148 POTASSIUM-STAT [id number] 19:57:00 Test Item Value Reference Range Interpretation Comments POTASSIUM (BEAKER) (test code = 5.2 meq/L 3.6-5.5 379) [id number] 17:10:00 Test Item Value Reference Range Interpretation Comments POTASSIUM (BEAKER) (test code = 5.3 meq/L 3.5-5.1 H 379) Assistant Store Manager Sales ID - BSBLOOD GAS, [id number] 16:57:00 Test Item Value Reference Range Interpretation [...] (BEAKER) (test code = 1819) 40.0 % [id number] 12:24:00 Test Item Value Reference Range Interpretation Comments POTASSIUM (BEAKER) (test code = 4.9 meq/L 3.5-5.1 379) Assistant Store Manager Sales ID - ODETTE MBLOOD GAS, [id number] 11:53:00 Test Item Value Reference Range Interpretation [...] (test code = 1819) 40.0 % POCT-GLUCOSE [id number] 11:45:00 Test Item Value Reference Range Interpretation Comments POC-GLUCOSE METER 181 mg/dL 70-110 H : TESTED A T [facility] 6720 (BEAKER) (test code = [facility] Caicedo [place], 1538) [address]: Assistant Store Manager Sales/Techni nuha ID = [id number] for GURMEET QUINTANA JR [id number] 08:48:00 Test Item Value Reference Range Interpretation Comments MAGNESIUM (BEAKER) 2.4 mg/dL 1.6-2.6 Specimen slightly (test code = 627) hemolyzed Assistant Store Manager Sales ID - GERRY [id number] 08:48:00 Test Item Value Reference Range Interpretation Comments PHOSPHORUS (BEAKER) 3.4 mg/dL 2.3-4.7 Specimen slightly (test code = 604) hemolyzed Assistant Store Manager Sales ID - GERRY [id number] 08:48:00 Test Item Value Reference Range Interpretation Comments POTASSIUM (BEAKER) 4.6 meq/L 3.5-5.1 Specimen slightly (test code = 379) hemolyzed Assistant Store Manager Sales ID - GERRY MRAD, CHEST, 1 VIEW, NON [id number] 07:02:00while patient is intubated or has chest [...] MDReport Verified Date/Time: 10/29/2019 07:02:49 Reading Location: [facility] Radiology Reading Room POCT-GLUCOSE [id number] 06:37:00 Test Item Value Reference Range Interpretation Comments POC-GLUCOSE METER 150 mg/dL 70-110 H : TESTED A T [place] [address] ([facility]) (test code = [facility], 1538) [address]: Assistant Store Manager Sales/Techni nuha ID = [id number] for YASMIN DAVIS [id number] 06:37:00 Test Item Value Reference Range Interpretation Comments ACTIVATED CLOTTING TIME 131 sec : 74 -137 seconds, (BEAKER) (test code = Baseli ne: TESTED AT 441) [place] [id number] [facility], [address]: Assistant Store Manager Sales/Techni nuha ID = [id number] for GO RMAN, ANTHONY [id number] 06:36:00 Test Item Value Reference Range Interpretation Comments ACTIVATED CLOTTING TIME 499 sec : 74 -137 seconds, (BEAKER) (test code = Baseli ne: TESTED AT 441) [facility] [address] [facility], [address]: Assistant Store Manager Sales/Techni nuha ID = [id number] for GO RMAN, ANTHONY [id number] 06:36:00 Test Item Value Reference Range Interpretation Comments ACTIVATED CLOTTING TIME 516 sec : 74 -137 seconds, (BEAKER) (test code = Baseli ne: TESTED AT 441) [address], [address]: Assistant Store Manager Sales/Techni nuha ID = [id number] for GO RMAN, ANTHONY [id number] 06:36:00 Test Item Value Reference Range Interpretation Comments ACTIVATED CLOTTING TIME 621 sec : 74 -137 seconds, (BEAKER) (test code = Baseli ne: TESTED AT 441) [address], [address]: Assistant Store Manager Sales/Techni nuha ID = [id number] for GO RMAN, ANTHONY [id number] 06:36:00 Test Item Value Reference Range Interpretation Comments ACTIVATED CLOTTING TIME 753 sec : 74 -137 seconds, (BEAKER) (test code = Baseli ne: TESTED AT 441) [address], [address]: Assistant Store Manager Sales/Techni nuha ID = [id number] for GO RMAN, ANTHONY [id number] 06:36:00 Test Item Value Reference Range Interpretation Comments ACTIVATED CLOTTING TIME 505 sec : 74 -137 seconds, (BEAKER) (test code = Baseli ne: TESTED AT 441) [address], [address]: Assistant Store Manager Sales/Techni nuha ID = [id number] for GO RMAN, ANTHONY [id number] 06:36:00 Test Item Value Reference Range Interpretation Comments ACTIVATED CLOTTING TIME 516 sec : 74 -137 seconds, (BEAKER) (test code = Baseli ne: TESTED AT 441) [address], [address]: Assistant Store Manager Sales/Techni nuha ID = [id number] for GO RMAN, ANTHONY POCT-GLUCOSE [id number] 04:37:00 Test Item Value Reference Range Interpretation Comments POC-GLUCOSE METER 141 mg/dL 70-110 H : TESTED A T [place] [address] (BEAKER) (test code = [facility], 1538) [address]: Assistant Store Manager Sales/Techni nuha ID = [id number] for ON YASMIN JORDAN BASIC METABOLIC [id number] 03:19:00 Test Item Value Reference Range Interpretation [...] S NOT APPLICABLE FOR DIALYSIS PATIEN TS. Assistant Store Manager Sales ID - GERRY [id number] 03:13:00 Test Item Value Reference Range Interpretation [...] is2.5-3.5 for patients wiht mechanical heart valves.PROTHROMBIN [id number] 03:12:00 Test Item Value Reference Range Interpretation [...] INR is2.5-3.5 for patients wiht mechanical heart valves.[id number] 03:09:00 Test Item Value Reference Range Interpretation Comments PHOSPHORUS (BEAKER) (test code = 2.4 mg/dL 2.3-4.7 604) Assistant Store Manager Sales ID - GERRY [id number] 03:09:00 Test Item Value Reference Range Interpretation Comments MAGNESIUM (BEAKER) (test code = 2.8 mg/dL 1.6-2.6 H 627) Assistant Store Manager Sales ID - GERRY MLACTIC ACID, [id number] 03:02:00 Test Item Value Reference Range Interpretation Comments LACTATE BLOOD ARTERIAL (2) 1.2 mmol/L 0.5-2.2 (BEAKER) (test code = 2874) Assistant Store Manager Sales ID - GERRY MCBC (HEMOGRAM ONLY)2019-10-29 02:53:00 [...] WBC 0-0 (BEAKER) (test code = 413) OXYGEN SATURATION, [id number] 02:52:00 Test Item Value Reference Range Interpretation Comments O2 SATURATION (MEASURED) (BEAKER) 78.1 % (test code = 1455) BLOOD GAS, [id number] 02:51:00 Test Item Value Reference Range Interpretation [...] (test code = 1819) 40.0 % GLUCOSE-STAT [id number] 02:51:00 Test Item Value Reference Range Interpretation Comments GLUCOSE RANDOM (BEAKER) (test code 158 mg/dL 70-110 H = 652) CALCIUM, [id number] 02:50:00 Test Item Value Reference Range Interpretation Comments CALCIUM IONIZED (BEAKER) (test 1.20 mmol/L 1.12-1.27 code = 698) PH, BLOOD (BEAKER) (test code = 7.46 1810) POCT-GLUCOSE [id number] 00:29:00 Test Item Value Reference Range Interpretation Comments POC-GLUCOSE METER 156 mg/dL 70-110 H : TESTED A T [facility] 6720 (BEAKER) (test code = [place] [place], 1538) [address]: Assistant Store Manager Sales/Techni nuha ID = [id number] for ON YASMIN JORDAN [id number] 22:46:00 Test Item Value Reference Range Interpretation Comments POTASSIUM (BEAKER) (test code = 4.8 meq/L 3.5-5.1 379) Assistant Store Manager Sales ID - [id number] 22:46:00 Test Item Value Reference Range Interpretation Comments MAGNESIUM (BEAKER) (test code = 3.3 mg/dL 1.6-2.6 H 627) Assistant Store Manager Sales ID - [id number] 22:46:00 Test Item Value Reference Range Interpretation Comments PHOSPHORUS (BEAKER) (test code = 1.8 mg/dL 2.3-4.7 L 604) Assistant Store Manager Sales ID - BSLACTIC ACID, [id number] 22:13:00 Test Item Value Reference Range Interpretation Comments LACTATE BLOOD ARTERIAL (2) 1.2 mmol/L 0.5-2.2 (BEAKER) (test code = 2874) Assistant Store Manager Sales ID - BSPOCT-GLUCOSE [id number] 22:03:00 Test Item Value Reference Range Interpretation Comments POC-GLUCOSE METER 141 mg/dL 70-110 H : TESTED A T [facility] 6720 (BEAKER) (test code = [facility], 1538) [address]: Assistant Store Manager Sales/Techni nuha ID = [id number] for ON NIMESH JORDANINE POCT-GLUCOSE [id number] 19:42:00 Test Item Value Reference Range Interpretation Comments POC-GLUCOSE METER 149 mg/dL 70-110 H : TESTED A T [facility] 6720 (BEAKER) (test code = [facility], 1538) [address]: Assistant Store Manager Sales/Techni nuha ID = [id number] for YA O, KOUAME POCT-GLUCOSE [id number] 18:32:00 Test Item Value Reference Range Interpretation Comments POC-GLUCOSE METER 147 mg/dL 70-110 H : TESTED A T [facility] 6720 (BEAKER) (test code = [facility], 1538) [address]: Assistant Store Manager Sales/Techni nuha ID = [id number] for YA O, KOUAME [id number] 18:08:00 Test Item Value Reference Range Interpretation Comments PHOSPHORUS (BEAKER) 3.4 mg/dL 2.3-4.7 Specimen slightly (test code = 604) hemolyzed Assistant Store Manager Sales ID - ELEAZAR ERAD, CHEST, 1 VIEW, NON [id number] 17:51:00Reason for exam:->ETTShould this be performed at [...] dual-chamber. There is a right IJ route Trumbull-Pepe catheter with the tip in the region [...] MDReport Verified Date/Time: 10/28/2019 17:51:08 Reading Location: [facility] C013W Consult Reading Room CBC W/PLT COUNT & AUTO [id number] 17:49:00 Test Item Value Reference Range Interpretation [...] (BEAKER) (test code = 2801) BASIC METABOLIC [id number] 17:38:00 Test Item Value Reference Range Interpretation [...] S NOT APPLICABLE FOR DIALYSIS PATIEN TS. Assistant Store Manager Sales JOHN BUSH EPROTHROMBIN [id number] 17:31:00 Test Item Value Reference Range Interpretation [...] INR is2.5-3.5 for patients wiht mechanical heart valves.[id number] 17:31:00 Test Item Value Reference Range Interpretation Comments FIBRINOGEN LEVEL (BEAKER) (test 343 mg/dl 225-434 code = 658) [id number] 17:31:00 Test Item Value Reference Range Interpretation Comments PARTIAL THROMBOPLASTIN TIME 36.5 seconds 22.5-36.0 H (BEAKER) (test code = 760) [id number] 17:25:00 Test Item Value Reference Range Interpretation Comments MAGNESIUM (BEAKER) 3.4 mg/dL 1.6-2.6 H Specimen slightly (test code = 627) hemolyzed Assistant Store Manager Sales ID - ELEAZAR ELACTIC ACID, [id number] 17:20:00 Test Item Value Reference Range Interpretation Comments LACTATE BLOOD 3.0 mmol/L 0.5-2.2 H Specimen sligh tly ARTERIAL (2) (BEAKER) hemoly zed (test code = 2874) Assistant Store Manager Sales ID - ELEAZAR EPLATELET [id number] 17:11:00 Test Item Value Reference Range Interpretation Comments PLATELET COUNT (BEAKER) (test 119 K/CU MM 150-450 L code = 756) Assistant Store Manager Sales ID - ShaanBLOOD GAS, [id number] 17:06:00 Test Item Value Reference Range Interpretation [...] code = 1819) 40.0 % SODIUM NA-STAT [id number] 17:06:00 Test Item Value Reference Range Interpretation Comments SODIUM (BEAKER) (test code = 381) 141 meq/L 135-148 POTASSIUM-STAT [id number] 17:06:00 Test Item Value Reference Range Interpretation Comments POTASSIUM (BEAKER) (test code = 5.1 meq/L 3.6-5.5 379) CALCIUM, [id number] 17:06:00 Test Item Value Reference Range Interpretation Comments CALCIUM IONIZED (BEAKER) (test 1.12 mmol/L 1.12-1.27 code = 698) PH, BLOOD (BEAKER) (test code = 7.44 1810) GLUCOSE-STAT [id number] 17:06:00 Test Item Value Reference Range Interpretation Comments GLUCOSE RANDOM (BEAKER) (test code 192 mg/dL 70-110 H = 652) HGB/HCT (H&H) - STAT [id number] 17:06:00 Test Item Value Reference Range Interpretation Comments HEMOGLOBIN (BEAKER) (test code = 8.4 g/dL 13.0-16.8 L 410) HEMATOCRIT (BEAKER) (test code = 25.0 % 40.0-50.0 L 411) OXYGEN SATURATION, [id number] 17:06:00 Test Item Value Reference Range Interpretation Comments O2 SATURATION (MEASURED) (BEAKER) 73.6 % (test code = 1455) CBC W/PLT COUNT & AUTO [id number] 16:50:00 Test Item Value Reference Range Interpretation [...] (BEAKER) (test code = 2801) SODIUM NA-STAT [id number] 15:41:00 Test Item Value Reference Range Interpretation Comments SODIUM (BEAKER) (test code = 381) 141 meq/L 135-148 POTASSIUM-STAT [id number] 15:41:00 Test Item Value Reference Range Interpretation Comments POTASSIUM (BEAKER) (test code = 4.7 meq/L 3.6-5.5 379) CALCIUM, [id number] 15:41:00 Test Item Value Reference Range Interpretation Comments CALCIUM IONIZED (BEAKER) (test 1.15 mmol/L 1.12-1.27 code = 698) PH, BLOOD (BEAKER) (test code = 7.40 1810) BLOOD GAS, [id number] 15:41:00 Test Item Value Reference Range Interpretation [...] (test code = 1819) 100.0 % GLUCOSE-STAT [id number] 15:41:00 Test Item Value Reference Range Interpretation Comments GLUCOSE RANDOM (BEAKER) (test code 216 mg/dL 70-110 H = 652) HGB/HCT (H&H) - STAT [id number] 15:41:00 Test Item Value Reference Range Interpretation Comments HEMOGLOBIN (BEAKER) (test code = 8.0 g/dL 13.0-16.8 L 410) HEMATOCRIT (BEAKER) (test code = 24.0 % 40.0-50.0 L 411) SODIUM NA-STAT [id number] 15:17:00 Test Item Value Reference Range Interpretation Comments SODIUM (BEAKER) (test code = 381) 140 meq/L 135-148 POTASSIUM-STAT [id number] 15:17:00 Test Item Value Reference Range Interpretation Comments POTASSIUM (BEAKER) (test code = 4.5 meq/L 3.6-5.5 379) CALCIUM, [id number] 15:17:00 Test Item Value Reference Range Interpretation Comments CALCIUM IONIZED (BEAKER) (test 1.01 mmol/L 1.12-1.27 L code = 698) PH, BLOOD (BEAKER) (test code = 7.38 1810) BLOOD GAS, [id number] 15:17:00 Test Item Value Reference Range Interpretation [...] 36.0 C (test code = 1818) GLUCOSE-STAT [id number] 15:17:00 Test Item Value Reference Range Interpretation Comments GLUCOSE RANDOM (BEAKER) (test code 226 mg/dL 70-110 H = 652) HGB/HCT (H&H) - STAT [id number] 15:17:00 Test Item Value Reference Range Interpretation Comments HEMOGLOBIN (BEAKER) (test code = 7.5 g/dL 13.0-16.8 L 410) HEMATOCRIT (BEAKER) (test code = 22.0 % 40.0-50.0 L 411) [id number] 15:01:00 Test Item Value Reference Range Interpretation Comments FIBRINOGEN LEVEL (BEAKER) (test 314 mg/dl 225-434 code = 658) [id number] 14:57:00 Test Item Value Reference Range Interpretation Comments PARTIAL THROMBOPLASTIN TIME 38.4 seconds 22.5-36.0 H (BEAKER) (test code = 760) PROTHROMBIN [id number] 14:56:00 Test Item Value Reference Range Interpretation [...] for patients wiht mechanical heart valves.BLOOD GAS, [id number] 14:47:00 Test Item Value Reference Range Interpretation [...] (test code = 1819) 100.0 % GLUCOSE-STAT [id number] 14:47:00 Test Item Value Reference Range Interpretation Comments GLUCOSE RANDOM (BEAKER) (test code 240 mg/dL 70-110 H = 652) HGB/HCT (H&H) - STAT [id number] 14:47:00 Test Item Value Reference Range Interpretation Comments HEMOGLOBIN (BEAKER) (test code = 7.1 g/dL 13.0-16.8 L 410) HEMATOCRIT (BEAKER) (test code = 21.0 % 40.0-50.0 L 411) PLATELET [id number] 14:46:00 Test Item Value Reference Range Interpretation Comments PLATELET COUNT (BEAKER) (test code 86 K/CU MM 150-450 L = 756) Assistant Store Manager Sales ID - [id number], [id number] 14:46:00 Test Item Value Reference Range Interpretation Comments CALCIUM IONIZED (BEAKER) (test 1.22 mmol/L 1.12-1.27 code = 698) PH, BLOOD (BEAKER) (test code = 7.24 1810) SODIUM NA-STAT [id number] 14:45:00 Test Item Value Reference Range Interpretation Comments SODIUM (BEAKER) (test code = 381) 138 meq/L 135-148 POTASSIUM-STAT [id number] 14:45:00 Test Item Value Reference Range Interpretation Comments POTASSIUM (BEAKER) (test code = 4.9 meq/L 3.6-5.5 379) CT, CTA, [id number] 14:28:00Addendum BeginsREPORT STATUS:A ADDENDUM: I agree with the previously described non vascular findings. Additional findings:None. Signed: Kevin Cary MDReport Verified Date/Time: 10/28/2019 14:28:45 Reading Location: [place] [address] Angio Body Reading RoomAddendum EndsFINAL REPORT CT angiography of the thoracic aorta, 25 November 2019 INDICATION: This is a 69year old male with a diagnosis of coronary artery disease, presents for prevascular surgery assessmen t TECHNIQUE: Spiral acquisition before and during during intravenous contrast administration using aPhilips multidetector CT scanner. Images were obtained before [...] dictated regarding the non-vascular findings by the Load Haul Dump Operator Radiologist. Signed: Alfonzo Almanza [facility] Verified Date/Time: 10/28/2019 07:41:51 BLOOD GAS, [id number] 14:00:00 Test Item Value Reference Range Interpretation Comments PH ARTERIAL (BEAKER) (test code = 7.40 7.35-7.45 383) PCO2 ARTERIAL (BEAKER) (test code 37 mmHg 35-45 = 384) PO2 ARTERIAL (BEAKER) (test code 317 mmHg 80-90 H = 385) O2 SATURATION ARTERIAL (BEAKER) 99.7 % 96.0-97.0 H (test code = 386) HCO3 ARTERIAL (BEAKER) (test code 23 mmol/L - = 388) BASE EXCESS ARTERIAL (BEAKER) -2.2 mmol/L -2.0-3.0 L (test code = 387) PATIENT TEMPERATURE (BEAKER) 35.5 C (test code = 1818) FIO2 (BEAKER) (test code = 1819) 70.0 % POTASSIUM-STAT [id number] 14:00:00 Test Item Value Reference Range Interpretation Comments POTASSIUM (BEAKER) (test code = 5.7 meq/L 3.6-5.5 H 379) GLUCOSE-STAT [id number] 14:00:00 Test Item Value Reference Range Interpretation Comments GLUCOSE RANDOM (BEAKER) (test code 229 mg/dL 70-110 H = 652) HGB/HCT (H&H) - STAT [id number] 14:00:00 Test Item Value Reference Range Interpretation Comments HEMOGLOBIN (BEAKER) (test code = 7.1 g/dL 13.0-16.8 L 410) HEMATOCRIT (BEAKER) (test code = 21.0 % 40.0-50.0 L 411) SODIUM NA-STAT [id number] 13:59:00 Test Item Value Reference Range Interpretation Comments SODIUM (BEAKER) (test code = 381) 138 meq/L 135-148 SODIUM NA-STAT [id number] 13:33:00 Test Item Value Reference Range Interpretation Comments SODIUM (BEAKER) (test code = 381) 138 meq/L 135-148 POTASSIUM-STAT [id number] 13:33:00 Test Item Value Reference Range Interpretation Comments POTASSIUM (BEAKER) (test code = 5.4 meq/L 3.6-5.5 379) BLOOD GAS, [id number] 13:33:00 Test Item Value Reference Range Interpretation [...] (test code = 1819) 70.0 % GLUCOSE-STAT [id number] 13:33:00 Test Item Value Reference Range Interpretation Comments GLUCOSE RANDOM (BEAKER) (test code 202 mg/dL 70-110 H = 652) HGB/HCT (H&H) - STAT [id number] 13:33:00 Test Item Value Reference Range Interpretation Comments HEMOGLOBIN (BEAKER) (test code = 8.4 g/dL 13.0-16.8 L 410) HEMATOCRIT (BEAKER) (test code = 25.0 % 40.0-50.0 L 411) LACTIC ACID, [id number] 13:10:00 Test Item Value Reference Range Interpretation Comments LACTATE BLOOD ARTERIAL (2) 0.9 mmol/L 0.5-2.2 (BEAKER) (test code = 2874) Assistant Store Manager Sales ID - SALONI FSODIUM NA-STAT [id number] 13:00:00 Test Item Value Reference Range Interpretation Comments SODIUM (BEAKER) (test code = 381) 135 meq/L 135-148 POTASSIUM-STAT [id number] 13:00:00 Test Item Value Reference Range Interpretation Comments POTASSIUM (BEAKER) (test code = 5.1 meq/L 3.6-5.5 379) BLOOD GAS, [id number] 13:00:00 Test Item Value Reference Range Interpretation [...] (test code = 1819) 65.0 % GLUCOSE-STAT [id number] 13:00:00 Test Item Value Reference Range Interpretation Comments GLUCOSE RANDOM (BEAKER) (test code 211 mg/dL 70-110 H = 652) HGB/HCT (H&H) - STAT [id number] 13:00:00 Test Item Value Reference Range Interpretation Comments HEMOGLOBIN (BEAKER) (test code = 7.3 g/dL 13.0-16.8 L 410) HEMATOCRIT (BEAKER) (test code = 21.0 % 40.0-50.0 L 411) POTASSIUM-STAT [id number] 12:43:00 Test Item Value Reference Range Interpretation Comments POTASSIUM (BEAKER) (test code = 5.6 meq/L 3.6-5.5 H 379) SODIUM NA-STAT [id number] 12:43:00 Test Item Value Reference Range Interpretation Comments SODIUM (BEAKER) (test code = 381) 133 meq/L 135-148 L BLOOD GAS, [id number] 12:42:00 Test Item Value Reference Range Interpretation [...] (test code = 1819) 65.0 % GLUCOSE-STAT [id number] 12:42:00 Test Item Value Reference Range Interpretation Comments GLUCOSE RANDOM (BEAKER) (test code 201 mg/dL 70-110 H = 652) HGB/HCT (H&H) - STAT [id number] 12:42:00 Test Item Value Reference Range Interpretation Comments HEMOGLOBIN (BEAKER) (test code = 7.9 g/dL 13.0-16.8 L 410) HEMATOCRIT (BEAKER) (test code = 23.0 % 40.0-50.0 L 411) BLOOD GAS, [id number] 12:21:00 Test Item Value Reference Range Interpretation [...] (test code = 1819) 80.0 % GLUCOSE-STAT [id number] 12:21:00 Test Item Value Reference Range Interpretation Comments GLUCOSE RANDOM (BEAKER) (test code 197 mg/dL 70-110 H = 652) HGB/HCT (H&H) - STAT [id number] 12:21:00 Test Item Value Reference Range Interpretation Comments HEMOGLOBIN (BEAKER) (test code = 7.2 g/dL 13.0-16.8 L 410) HEMATOCRIT (BEAKER) (test code = 21.0 % 40.0-50.0 L 411) SODIUM NA-STAT [id number] 12:21:00 Test Item Value Reference Range Interpretation Comments SODIUM (BEAKER) (test code = 381) 134 meq/L 135-148 L POTASSIUM-STAT [id number] 12:10:00 Test Item Value Reference Range Interpretation Comments POTASSIUM (BEAKER) (test code = 4.6 meq/L 3.6-5.5 379) SODIUM NA-STAT [id number] 08:36:00 Test Item Value Reference Range Interpretation Comments SODIUM (BEAKER) (test code = 381) 135 meq/L 135-148 POTASSIUM-STAT [id number] 08:36:00 Test Item Value Reference Range Interpretation Comments POTASSIUM (BEAKER) (test code = 4.5 meq/L 3.6-5.5 379) BLOOD GAS, [id number] 08:36:00 Test Item Value Reference Range Interpretation [...] (test code = 1819) 87.0 % GLUCOSE-STAT [id number] 08:36:00 Test Item Value Reference Range Interpretation Comments GLUCOSE RANDOM (BEAKER) (test code 138 mg/dL 70-110 H = 652) HGB/HCT (H&H) - STAT [id number] 08:36:00 Test Item Value Reference Range Interpretation Comments HEMOGLOBIN (BEAKER) (test code = 8.9 g/dL 13.0-16.8 L 410) HEMATOCRIT (BEAKER) (test code = 26.0 % 40.0-50.0 L 411) [id number] 07:05:00 Test Item Value Reference Range Interpretation [...] for patients wiht mechanical heart valves.COMPREHENSIVE METABOLIC PANEL 2019-10-28 05:28:00 Test Item Value Reference Range [...] S NOT APPLICABLE FOR DIALYSIS PATIEN TS. Assistant Store Manager Sales ID - OZZY [id number] 05:23:00 Test Item Value Reference Range Interpretation Comments MAGNESIUM (BEAKER) (test code = 2.8 mg/dL 1.6-2.6 H 627) Assistant Store Manager Sales ID - OZZY WPROTHROMBIN TIME/[id number] 05:03:00 Test Item Value Reference Range Interpretation [...] mechanical heart valves.CBC W/PLT COUNT & AUTO [id number] 04:41:00 Test Item Value Reference Range Interpretation [...] PERCENT (BEAKER) (test code = 2801) POCT-GLUCOSE [id number] 22:22:00 Test Item Value Reference Range Interpretation Comments POC-GLUCOSE METER 153 mg/dL 70-110 H : TESTED A T [facility] 6720 (BEAKER) (test code = [facility] [employer] [facility], 153) [address]: Assistant Store Manager Sales/Techni nuha ID = [id number] for DO OSULLIVANLONGJONHSY POCT-GLUCOSE [id number] 17:17:00 Test Item Value Reference Range Interpretation Comments POC-GLUCOSE METER 198 mg/dL 70-110 H : TESTED A T [facility] 6720 (BEAKER) (test code = [facility] [employer] [facility], 1538) [address]: Assistant Store Manager Sales/Techni nuha ID = [id number] for NATALY WILLIAMS SAIDA POCT-GLUCOSE [id number] 12:44:00 Test Item Value Reference Range Interpretation Comments POC-GLUCOSE METER 185 mg/dL 70-110 H : TESTED A T [facility] 6720 (BEAKER) (test code = [facility] [employer] [facility], 153) [address]: Assistant Store Manager Sales/Techni nuha ID = [id number] for LENNOX MARTINEZ [id number] 09:04:00 Test Item Value Reference Range Interpretation Comments PARTIAL THROMBOPLASTIN TIME 88.4 seconds 22.5-36.0 H (BEAKER) (test code = 760) POCT-GLUCOSE [id number] 07:56:00 Test Item Value Reference Range Interpretation Comments POC-GLUCOSE METER 154 mg/dL 70-110 H : TESTED A T [facility] 6720 (BEAKER) (test code = [facility] [employer] [facility], 153) [address]: Assistant Store Manager Sales/Techni nuha ID = [id number] for LENNOX MARTINEZ BASIC METABOLIC [id number] 04:36:00 Test Item Value Reference Range Interpretation [...] S NOT APPLICABLE FOR DIALYSIS PATIEN TS. Assistant Store Manager Sales ID - [id number] (HEMOGRAM ONLY)2019-10-27 04:03:00 Test [...] WBC 0-0 (BEAKER) (test code = 413) [id number] 02:06:00 Test Item Value Reference Range Interpretation Comments PARTIAL THROMBOPLASTIN TIME 65.3 seconds 22.5-36.0 H (BEAKER) (test code = 760) POCT-GLUCOSE [id number] 22:33:00 Test Item Value Reference Range Interpretation Comments POC-GLUCOSE METER 164 mg/dL 70-110 H : TESTED A T [facility] 6720 ([facility]) (test code = [facility], 1538) [address]: Assistant Store Manager Sales/Techni nuha ID = [id number] for ANJALI AGUILA [id number] 18:06:00 Test Item Value Reference Range Interpretation Comments PARTIAL THROMBOPLASTIN TIME 80.0 seconds 22.5-36.0 H (BEAKER) (test code = 760) [id number] 17:13:00 Test Item Value Reference Range Interpretation Comments PARTIAL THROMBOPLASTIN TIME 186.3 seconds 22.5-36.0 HH (BEAKER) (test code = 760) POCT-GLUCOSE [id number] 17:06:00 Test Item Value Reference Range Interpretation Comments POC-GLUCOSE METER 175 mg/dL 70-110 H : TESTED A T [facility] 6720 ([facility]) (test code = [facility], 1538) [address]: Assistant Store Manager Sales/Techni nuha ID = [id number] for MADAI Clemente JONATHAN POCT-GLUCOSE [id number] 12:28:00 Test Item Value Reference Range Interpretation Comments POC-GLUCOSE METER 136 mg/dL 70-110 H : TESTED A T [facility] 6720 ([facility]) (test code = [facility], 1538) [address]: Assistant Store Manager Sales/Techni nuha ID = [id number] for MADAI Y, JONATHAN [id number] 10:47:00 Test Item Value Reference Range Interpretation Comments PARTIAL THROMBOPLASTIN TIME 102.9 seconds 22.5-36.0 H (BEAKER) (test code = 760) POCT-GLUCOSE [id number] 08:02:00 Test Item Value Reference Range Interpretation Comments POC-GLUCOSE METER 133 mg/dL 70-110 H : TESTED A T [facility] 6720 (BEAKER) (test code = [facility] [place], 1538) [address]: Assistant Store Manager Sales/Techni nuha ID = [id number] for JONATHAN RODRIGEZ BASIC METABOLIC [id number] 04:18:00 Test Item Value Reference Range Interpretation [...] S NOT APPLICABLE FOR DIALYSIS PATIEN TS. Assistant Store Manager Sales ID - GERRY [id number] 03:54:00 Test Item Value Reference Range Interpretation [...] WBC 0-0 (BEAKER) (test code = 413) [id number] 22:02:00 Test Item Value Reference Range Interpretation Comments PARTIAL THROMBOPLASTIN TIME 64.5 seconds 22.5-36.0 H (BEAKER) (test code = 760) POCT-GLUCOSE [id number] 21:44:00 Test Item Value Reference Range Interpretation Comments POC-GLUCOSE METER 129 mg/dL 70-110 H : TESTED A T [facility] 6720 ([facility]) (test code = [facility] [employer] [facility], 153) [address]: Assistant Store Manager Sales/Techni nuha ID = [id number] for CH U, LI [id number] 20:43:00 Test Item Value Reference Range Interpretation Comments PARTIAL THROMBOPLASTIN TIME 50.7 seconds 22.5-36.0 H (BEAKER) (test code = 760) [id number] 17:02:00 Test Item Value Reference Range Interpretation Comments PARTIAL THROMBOPLASTIN TIME 192.2 seconds 22.5-36.0 HH (BEAKER) (test code = 760) POCT-GLUCOSE [id number] 16:58:00 Test Item Value Reference Range Interpretation Comments POC-GLUCOSE METER 131 mg/dL 70-110 H : TESTED A T [facility] 6720 (BEAKER) (test code = [facility] [employer] [facility], 153) [address]: Assistant Store Manager Sales/Techni nuha ID = [id number] for AP ARECE, ISAIAS POCT-GLUCOSE [id number] 14:57:00 Test Item Value Reference Range Interpretation Comments POC-GLUCOSE METER 170 mg/dL 70-110 H : TESTED A T [facility] 6720 (BEAKER) (test code = JIGNESHNM Sascha [facility], 1538) [address]: Assistant Store Manager Sales/Techni nuha ID = [id number] for CO RTEZ, CHULA POCT-GLUCOSE [id number] 10:15:00 Test Item Value Reference Range Interpretation Comments POC-GLUCOSE METER 170 mg/dL 70-110 H : TESTED A T [facility] 6720 (BEAKER) (test code = [facility] Sascha [facility], 1538) 06[address]: Assistant Store Manager Sales/Techni nuha ID = [id number] for CO RTEZ, CHULA BASIC METABOLIC [id number] 06:17:00 Test Item Value Reference Range Interpretation [...] S NOT APPLICABLE FOR DIALYSIS PATIEN TS. Assistant Store Manager Sales ID - [id number] 06:08:00 Test Item Value Reference Range Interpretation [...] code = 412) PLATELET COUNT (BEAKER) (test 181 K/CU MM 150-450 code = 756) MEAN PLATELET VOLUME (BEAKER) 11.2 fL 9.4-12.4 (test code = 754) NUCLEATED RED BLOOD CELLS 0 /100 WBC 0-0 (BEAKER) (test code = 413) [id number] 01:00:00 Test Item Value Reference Range Interpretation Comments PARTIAL THROMBOPLASTIN TIME 76.0 seconds 22.5-36.0 H ([facility]) (test code = 760) POCT-GLUCOSE [id number] 23:53:00 Test Item Value Reference Range Interpretation Comments POC-GLUCOSE METER 166 mg/dL 70-110 H : Notified RN/MD: ([facility]) (test code = TESTED AT [place] [address]) [facility], [address]: Assistant Store Manager Sales/Techni nuha ID = [id number] for KIAN KAUR POCT-GLUCOSE [id number] 19:04:00 Test Item Value Reference Range Interpretation Comments POC-GLUCOSE METER 191 mg/dL 70-110 H : TESTED A T [facility] 67 ([facility]) ([facility], 1538) [address]: Assistant Store Manager Sales/Techni nuha ID = [id number] for ELÍAS BLOOM [id number] 18:02:00 Test Item Value Reference Range Interpretation Comments PARTIAL THROMBOPLASTIN TIME 62.3 seconds 22.5-36.0 H (BEAKER) (test code = 760) [id number] 12:39:00 Test Item Value Reference Range Interpretation Comments PARTIAL THROMBOPLASTIN TIME 47.8 seconds 22.5-36.0 H (BEAKER) (test code = 760) Prior to initiating heparinPOCT-GLUCOSE [id number] 11:03:00 Test Item Value Reference Range Interpretation Comments POC-GLUCOSE METER 143 mg/dL 70-110 H : TESTED A T [facility] (BEAKER) (test code = [facility] [place], 1538) [address]: Assistant Store Manager Sales/Techni nuha ID = [id number] for Vinny Domínguez BASIC METABOLIC [id number] 07:38:00 Test Item Value Reference Range Interpretation [...] S NOT APPLICABLE FOR DIALYSIS PATIEN TS. Assistant Store Manager Sales ID - GALAPHEPATITIS B SURFACE [id number] 07:11:00 Test Item Value Reference Range Interpretation Comments HEPATITIS B SURFACE ANTIGEN (2) Nonreactive Nonreactive (BEAKER) (test code = 2585) Assistant Store Manager Sales ID - [id number] 06:42:00 Test Item Value Reference Range Interpretation [...] 0-0 (BEAKER) (test code = 413) POCT-GLUCOSE [id number] 21:49:00 Test Item Value Reference Range Interpretation Comments POC-GLUCOSE METER 136 mg/dL 70-110 H : Notified RN/: ([facility]) (test code = TESTED AT [place] [address]) [facility], [address]: Assistant Store Manager Sales/Techni nuha ID = [id number] for SA NCHEZ, KIAN POCT-GLUCOSE [id number] 19:27:00 Test Item Value Reference Range Interpretation Comments POC-GLUCOSE METER 114 mg/dL 70-110 H : Notified RN/: ([facility]) (test code = TESTED AT [place] [address]) [facility], [address]: Assistant Store Manager Sales/Techni nuha ID = [id number] for SA NCHEZ, KIAN [id number] 16:15:00 Test Item Value Reference Range Interpretation Comments ACTIVATED CLOTTING TIME 241 sec : 74 -137 seconds, (BEAKER) (test code = Baseli ne: TESTED AT 441) [facility] [address] [facility], [address]: Assistant Store Manager Sales/Techni nuha ID = [id number] for TALHA LUND [id number] 15:48:00 Test Item Value Reference Range Interpretation Comments ACTIVATED CLOTTING TIME 147 sec : 74 -137 seconds, (BEAKER) (test code = Baseli ne: TESTED AT 441) [facility] [address] [facility], [address]: Assistant Store Manager Sales/Techni nuha ID = [id number] for TALHA LUND POCT-GLUCOSE [id number] 12:05:00 Test Item Value Reference Range Interpretation Comments POC-GLUCOSE METER 154 mg/dL 70-110 H : TESTED A T [facility] ([facility]) (test code = [facility], 1538) [address]: Assistant Store Manager Sales/Techni nuha ID = [id number] for Do minguez, Alfredo POCT-GLUCOSE [id number] 07:41:00 Test Item Value Reference Range Interpretation Comments POC-GLUCOSE METER 144 mg/dL 70-110 H : TESTED A T [facility] 6720 ([facility]) (test code = [facility], 1538) [address]: Assistant Store Manager Sales/Techni nuha ID = [id number] for Do minguez, Alfredo TROPONIN [id number] 07:06:00 Test Item Value Reference Range Interpretation Comments TROPONIN I ([facility]) (test code = 10.76 ng/mL 0.00-0.03 [facility]) Troponin I (TnI) levels must [...] failure, acidosis, acute neurological disease, and persistent tachyarrhythmia.Assistant Store Manager Sales ID - GERRY [id number] 06:37:00 Test Item Value Reference Range Interpretation Comments PARTIAL THROMBOPLASTIN TIME 54.6 seconds 22.5-36.0 H (BEAKER) (test code = 760) CBC (HEMOGRAM ONLY)2019-10-23 [...] 0-0 (BEAKER) (test code = 413) TROPONIN [id number] 00:49:00 Test Item Value Reference Range Interpretation Comments TROPONIN I (BEAKER) (test code = 6.38 ng/mL 0.00-0.03 397) Troponin I (TnI) levels [...] failure, acidosis, acute neurological disease, and persistent tachyarrhythmia.Assistant Store Manager Sales ID - [id number] 22:52:00 Test Item Value Reference Range Interpretation Comments PARTIAL THROMBOPLASTIN TIME 33.8 seconds 22.5-36.0 (EM[facility]) (test code = 760) Prior to initiating heparinPLATELET [id number] 22:44:00 Test Item Value Reference Range Interpretation Comments PLATELET COUNT ([facility]) (test 152 K/CU MM 150-450 code = 756) Assistant Store Manager Sales ID - 6000TROPONIN [id number] 20:56:00 Test Item Value Reference Range Interpretation Comments TROPONIN I ([facility]) (test code = 5.06 ng/mL 0.00-0.03 397) [...] failure, acidosis, acute neurological disease, and persistent tachyarrhythmia.Assistant Store Manager Sales ID - MARICHUYOCT-GLUCOSE METER 2019-10-22 20:26:00 Test Item Value Reference Range Interpretation Comments POC-GLUCOSE METER 129 mg/dL 70-110 H : TESTED A T [facility] 6720 ([facility]) (test code = ALPHON[facility] Caicedo [facility], 1538) [address]: Assistant Store Manager Sales/Techni nuha ID = [id number] for MINAL YOUSIF TROPONIN [id number] 13:12:00 Test Item Value Reference Range Interpretation Comments TROPONIN I ([facility]) (test code = 0.36 ng/mL 0.00-0.03 397) [...] failure, acidosis, acute neurological disease, and persistent tachyarrhythmia.Assistant Store Manager Sales ID - SALONI FB-TYPE NATRIURETIC FACTOR (BNP)2019-10-22 13:06:00 Test Item Value Reference Range Interpretation Comments B-TYPE NATRIURETIC PEPTIDE ([facility]MA) 106 pg/mL 0-100 H (test code = 700) Assistant Store Manager Sales ID - SALONI BERNALASIC METABOLIC [id number] 13:05:00 Test Item Value Reference Range Interpretation [...] S NOT APPLICABLE FOR DIALYSIS PATIEN TS. Assistant Store Manager Sales ID [place] GUALLPA [id number] 13:02:00 Test Item Value Reference Range Interpretation Comments MAGNESIUM (BEAKER) (test code = 2.8 mg/dL 1.6-2.6 H 627) Assistant Store Manager Sales ID [employer] FHEPATIC FUNCTION [id number] 13:02:00 Test Item Value Reference Range Interpretation [...] (test code = 28 U/L 6-55 347) Assistant Store Manager Sales ID [employer] [facility] [id number] 13:02:00 Test Item Value Reference Range Interpretation Comments LIPASE (BEAKER) (test code = 749) 49 U/L 8-78 Assistant Store Manager Sales [facility] W/PLT COUNT & AUTO [id number] 12:45:00 Test Item Value Reference Range Interpretation [...] = 2801) RAD, CHEST, 1 VIEW, NON [id number] 12:23:00Reason for exam:->CHEST PAIN FINAL REPORT Chest, one view History: chest pain Comparison: 04/30/2019 Findings:Clear lungs. Normal size heart. No pleural effusion or pneumothorax. Cardiac pacer in place. Impression:No acute findings in the chest Signed: Ivan Milan Verified Date/Time: 10/22/2019 12:23:16 Reading Location: [facility] Radiology Reading Room POCT-GLUCOSE [id number] 11:51:00 Test Item Value Reference Range Interpretation Comments POC-GLUCOSE METER 279 mg/dL 70-[address] [facility] 6720 ([facility]) (test code = ALPHONSO Caicedo [facility] 1538) [address] CBC W/PLT COUNT & AUTO [id number] 11:50:00 Test Item Value Reference Range Interpretation [...] (BEAKER) (test code = 2801) BASIC METABOLIC [id number] 10:56:00 Test Item Value Reference Range Interpretation [...] PATIEN TS. RAD, CHEST, 1 VIEW, NON [id number] 08:58:00Reason for exam:->Post device placementShould this be [...] Britt Verified Date/Time: 04/30/2019 08:58:17 Reading Location: [facility] Reading Room POCT-GLUCOSE [id number] 08:16:00 Test Item Value Reference Range Interpretation Comments POC-GLUCOSE METER 342 mg/dL 70-[address] [facility] 67 ([facility]) (test code = ALPHONSO [place] 1538) [address] RAD, CHEST, 1 VIEW, NON [id number] 06:14:00Reason for exam:->post device placementShould this be [...] over the left axilla. Signed: Sigrid Vieyra MDReport Verified Date/Time: 04/30/2019 06:14:19 Reading Location: [address] Reading Room POCT-GLUCOSE [id number] 01:09:00 Test Item Value Reference Range Interpretation Comments POC-GLUCOSE METER 187 mg/dL 70-110 H TESTED AT [place] [address] ([facility]) (test code = [facility] 1538) [address] POCT-GLUCOSE [id number] 20:12:00 Test Item Value Reference Range Interpretation Comments POC-GLUCOSE METER 175 mg/dL 70-110 H TESTED AT [place] [address] ([facility]) (test code = [facility] 1538) [address] POCT-GLUCOSE [id number] 17:34:00 Test Item Value Reference Range Interpretation Comments POC-GLUCOSE METER 88 mg/dL 70-110 TESTED AT [place] [address] ([facility]) (test code = [facility] [address] 1538) POCT-GLUCOSE [id number] 13:28:00 Test Item Value Reference Range Interpretation Comments POC-GLUCOSE METER 131 mg/dL 70-110 H TESTED AT [place] [address] ([facility]) (test code = [facility] 1538) [address] RHEUMATOID FACTOR AB, REFLEX TO [id number] 11:35:00 Test Item Value Reference Range Interpretation Comments RHEUMATOID FACTOR ([facility]) (test Positive code = 573) RHEUMATOID FACTOR [id number] 11:35:00 Test Item Value Reference Range Interpretation Comments RHEUMATOID FACTOR TITER ([facility]) (test :4 code = 2285) ANTI-NUCLEAR ANTIBODY [...] PATIEN TS. CBC W/PLT COUNT & AUTO [id number] 09:22:00 Test Item Value Reference Range Interpretation [...] H PERCENT (BEAKER) (test code = 2801) PROTHROMBIN TIME/[id number] 09:20:00 Test Item Value Reference Range Interpretation [...] valves.Within 24 hours, if on CoumadinPOCT- GLUCOSE [id number] 07:57:00 Test Item Value Reference Range Interpretation Comments POC-GLUCOSE METER 183 mg/dL 70-[address] [facility] 6720 ([facility]) (test code = ALPHONSO Caicedo [facility] 1538) [address] POCT-GLUCOSE [id number] 21:30:00 Test Item Value Reference Range Interpretation Comments POC-GLUCOSE METER 326 mg/dL 70-110 H Will Repea t Test/TESTED ([facility]) (test code = AT [facility] 6720 [place] 1538) [facility] 7703 0 POCT-GLUCOSE [id number] 17:47:00 Test Item Value Reference Range Interpretation Comments POC-GLUCOSE METER 332 mg/dL 70-110 H TESTED AT [place] [address] (BEAKER) (test code = ALPHONSO Caicedo [place] 1538) [address] POCT-GLUCOSE [id number] 11:54:00 Test Item Value Reference Range Interpretation Comments POC-GLUCOSE METER 171 mg/dL 70-110 H TESTED AT [place] [address] (BEAKER) (test code = ALPHONSO Caicedo [place] 1538) [address] POCT-GLUCOSE [id number] 08:21:00 Test Item Value Reference Range Interpretation Comments POC-GLUCOSE METER 171 mg/dL 70-110 H TESTED AT [place] [address] (BEAKER) (test code = ALPHONSO Caicedo [facility] 1538) [address] CBC W/PLT COUNT & AUTO [id number] 07:27:00 Test Item Value Reference Range Interpretation [...] Received comment: User comments: Slide comments:BASIC METABOLIC [id number] 05:54:00 Test Item Value Reference Range Interpretation [...] NOT APPLICABLE FOR DIALYSIS PATIEN TS. POCT-GLUCOSE [id number] 21:28:00 Test Item Value Reference Range Interpretation Comments POC-GLUCOSE METER 296 mg/dL 70-[address] [facility] 6720 (BEAKER) (test code = ALPHONSO Caicedo [place] 1538) [address] POCT-GLUCOSE [id number] 17:32:00 Test Item Value Reference Range Interpretation Comments POC-GLUCOSE METER 330 mg/dL 70-[address] [facility] 6720 (BEAKER) (test code = ALPHONSO Caicedo [place] 1538) [address] CBC W/PLT COUNT & AUTO [id number] 16:02:00 Test Item Value Reference Range Interpretation [...] 3438) Received comment: User comments: Slide comments:POCT-GLUCOSE [id number] 11:35:00 Test Item Value Reference Range Interpretation Comments POC-GLUCOSE METER 248 mg/dL 70-[address] [facility] 6720 (BEAKER) (test code = ALPHONSO [place] 1538) [address] T4, [id number] 08:58:00 Test Item Value Reference Range Interpretation Comments FREE T4 (BEAKER) (test code = 655) 1.29 ng/dL 0.70-1.48 HEMOGLOBIN [id number] 08:50:00 Test Item Value Reference Range Interpretation Comments HEMOGLOBIN A1C (BEAKER) (test code = 7.4 % 4.3-6.1 H 368) LIPID [id number] 08:07:00 Test Item Value Reference Range Interpretation [...] 130-159 High 160-189 Very High >=190BASIC METABOLIC [id number] 08:07:00 Test Item Value Reference Range Interpretation [...] FOR DIALYSIS PATIEN TS. TSH/FREE T4 IF [id number] 08:04:00 Test Item Value Reference Range Interpretation Comments THYROID STIMULATING HORMONE 0.06 uIU/mL 0.35-4.94 L (BEAKER) (test code = 772) POCT-GLUCOSE [id number] 07:38:00 Test Item Value Reference Range Interpretation Comments POC-GLUCOSE METER 316 mg/dL 70-[address] [facility] 67 ([facility]) (test code = ALPHONSO Caicedo [facility] 1538) [address] POCT-GLUCOSE [id number] 21:22:00 Test Item Value Reference Range Interpretation Comments POC-GLUCOSE METER 194 mg/dL 70-110 H TESTED AT [place] [address] ([facility]) (test code = ALPHONSO Caicedo [facility] 1538) [address] CBC W/PLT COUNT & AUTO [id number] 19:30:00 Test Item Value Reference Range Interpretation [...] 0-100 H (test code = 700) TROPONIN [id number] 19:20:00 Test Item Value Reference Range Interpretation [...] failure, acidosis, acute neurological disease, and persistent tachyarrhythmia.PT/[id number] 19:17:00 Test Item Value Reference Range Interpretation [...] for patients wiht mechanical heart valves.BASIC METABOLIC [id number] 19:14:00 Test Item Value Reference Range Interpretation [...] S NOT APPLICABLE FOR DIALYSIS PATIEN TS. [id number] 19:13:00 Test Item Value Reference Range Interpretation Comments MAGNESIUM ([facility]) (test code = 2.4 mg/dL 1.6-2.6 627) RAD, CHEST, 1 VIEW, NON [id number] 17:54:00Reason for exam:->ABNORMAL ECG FINAL REPORT Chest, [...] MDReport Verified Date/Time: 04/26/2019 17:54:42 Reading Location: [address] Consult Reading Room C-REACTIVE [id number] 17:19:00 Test Item Value Reference Range Interpretation Comments C-REACTIVE PROTEIN ([facility]) (test 0.22 mg/dL 0.00-0.50 code = 676) POCT-GLUCOSE [id number] 15:56:00 Test Item Value Reference Range Interpretation Comments POC-GLUCOSE METER 283 mg/dL 70-110 H TESTED AT [place] [address] ([facility]) (test code = [facility] 1538) [address] POCT-GLUCOSE [id number] 11:40:00 Test Item Value Reference Range Interpretation Comments POC-GLUCOSE METER 319 mg/dL 70-[address] [facility] 6720 ([facility]) (test code = [facility] 1538) [address] CBC W/PLT COUNT & AUTO [id number] 09:52:00 Test Item Value Reference Range Interpretation Comments WHITE BLOOD CELL COUNT ([facility]) 10.9 K/ L 3.5-10.5 H (test code [...] (BEAKER) (test code = 2801) BASIC METABOLIC [id number] 08:06:00 Test Item Value Reference Range Interpretation [...] S NOT APPLICABLE FOR DIALYSIS PATIEN TS. [id number] 07:34:00 Test Item Value Reference Range Interpretation Comments PHOSPHORUS (BEAKER) 5.3 mg/dL 2.3-4.7 H Specimen slightly (test code = 604) hemolyzed POCT-GLUCOSE [id number] 07:18:00 Test Item Value Reference Range Interpretation Comments POC-GLUCOSE METER 364 mg/dL 70-110 H Notified R Jitendra MD/TESTED ([facility]) (test code = AT [place] [address]) [facility] 7703 0 HEPATITIS B SURFACE [id number] 22:01:00 Test Item Value Reference Range Interpretation Comments HEPATITIS B SURFACE ANTIGEN (2) Nonreactive Nonreactive (BEAKER) (test code = 2585) POCT-GLUCOSE [id number] 21:39:00 Test Item Value Reference Range Interpretation Comments POC-GLUCOSE METER 334 mg/dL 70-110 H Notified R Jitendra MD/TESTED (BEAKER) (test code = AT [address] 1538) [facility] 7703 0 POCT-GLUCOSE [id number] 18:23:00 Test Item Value Reference Range Interpretation Comments POC-GLUCOSE METER 299 mg/dL 70-110 H TESTED AT [facility] 6720 (BEAKER) (test code = [place] 1538) [address] BASIC METABOLIC [id number] 16:58:00 Test Item Value Reference Range Interpretation [...] PATIEN TS. CBC W/PLT COUNT & AUTO [id number] 16:41:00 Test Item Value Reference Range Interpretation [...] PERCENT (BEAKER) (test code = 2801) POCT-GLUCOSE [id number] 16:07:00 Test Item Value Reference Range Interpretation Comments POC-GLUCOSE METER 303 mg/dL 70-[address] [facility] 6720 ([facility]) (test code = ALPHONSO Caicedo [facility] 1538) [address] TROPONIN [id number] 15:56:00 Test Item Value Reference Range Interpretation Comments TROPONIN I ([facility]) (test code = 0.01 ng/mL 0.00-0.03 397) [...] acidosis, acute neurological disease, and persistent tachyarrhythmia.TROPONIN [id number] 08:07:00 Test Item Value Reference Range Interpretation [...] acute neurological disease, and persistent tachyarrhythmia.BASIC METABOLIC [id number] 08:05:00 Test Item Value Reference Range Interpretation [...] NOT APPLICABLE FOR DIALYSIS PATIEN TS. POCT-GLUCOSE [id number] 06:48:00 Test Item Value Reference Range Interpretation Comments POC-GLUCOSE METER 378 mg/dL 70-[address] [facility] 6720 (BEAKER) (test code = [place] 1538) [address] CBC W/PLT COUNT & AUTO [id number] 03:42:00 Test Item Value Reference Range Interpretation [...] (BEAKER) (test code = 2801) BASIC METABOLIC [id number] 03:38:00 Test Item Value Reference Range Interpretation [...] NOT APPLICABLE FOR DIALYSIS PATIEN TS. TROPONIN [id number] 03:38:00 Test Item Value Reference Range Interpretation [...] neurological disease, and persistent tachyarrhythmia.CT, BRAIN, WITHOUT [id number] 03:13:00Reason for exam:->LOSS OF CONSCIOUSNESSWhat is the [...] acute intracranial pathology persists. Signed: Pia White Verified Date/Time: 04/14/2019 03:13:43 RAD, CHEST, 1 VIEW, NON [id number] 02:37:00Reason for exam:->LOSS OF CONSCIOUSNESSShould this be [...] an acute osseous abnormality or pneumothorax. 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 Signed: Jonathan Centeno Verified Date/Time: 04/14/2019 02:37:40 Reading Location: [address] Reading Room AFB CULTURE + [id number] 10:35:00 Test Item Value Reference Range Interpretation Comments CULTURE (BEAKER) (test No acid-fast bacilli code = 1095) isolated in 42 days AFB SMEAR (BEAKER) No acid fast bacilli (test code = 994) seen FUNGUS CULTURE + [id number] 19:02:00 Test Item Value Reference Range Interpretation Comments CULTURE (BEAKER) (test No fungus isolated in code = 1095) 28 days FUNGUS SMEAR (BEAKER) No fungi seen (test code = 1406) POCT-GLUCOSE [id number] 12:35:00 Test Item Value Reference Range Interpretation Comments POC-GLUCOSE METER 214 mg/dL 70-[address] [facility] 6720 (BEAKER) (test code = ALPHONSO Caicedo [place] 1538) [address] BLOOD [id number] 12:01:00 Test Item Value Reference Range Interpretation Comments CULTURE (BEAKER) (test No growth in 5 days code = 1095) BLOOD [id number] 12:01:00 Test Item Value Reference Range Interpretation Comments CULTURE (BEAKER) (test No growth in 5 days code = 1095) POCT-GLUCOSE [id number] 07:49:00 Test Item Value Reference Range Interpretation Comments POC-GLUCOSE METER 174 mg/dL 70-[address] [facility] 6720 (BEAKER) (test code = ALPHONSO Caicedo [facility] 1538) [address] MR, CARDIAC WITHOUT [id number] 07:10:00Reason for exam:->r/o constrictive pericarditisFINAL REPORT Cardiac [...] in the left base Signed: Alfonzo Almanza [facility] Verified Date/Time: 01/23/2019 07:10:40 Reading Location: [place] [address] Cardiology MRI COMPREHENSIVE METABOLIC [id number] 05:56:00 Test Item Value Reference Range Interpretation [...] NOT APPLICABLE FOR DIALYSIS PATIEN TS. C-REACTIVE [id number] 05:55:00 Test Item Value Reference Range Interpretation Comments C-REACTIVE PROTEIN (BEAKER) (test 9.80 mg/dL 0.00-0.50 H code = 676) CBC W/PLT COUNT & AUTO [id number] 05:20:00 Test Item Value Reference Range Interpretation [...] PERCENT (BEAKER) (test code = 2801) POCT-GLUCOSE [id number] 22:15:00 Test Item Value Reference Range Interpretation Comments POC-GLUCOSE METER 183 mg/dL 70-[address] [facility] 6720 (BEAKER) (test code = ALPHONSO [place] 1538) [address] BODY FLUID CULTURE + GRAM [id number] 13:25:00 Test Item Value Reference Range Interpretation Comments CULTURE (BEAKER) (test No growth code = 1095) GRAM STAIN RESULT <1+ White blood cells (BEAKER) (test code = seen 1123) GRAM STAIN RESULT No organisms seen (BEAKER) (test code = 09156) POCT-GLUCOSE [id number] 12:07:00 Test Item Value Reference Range Interpretation Comments POC-GLUCOSE METER 275 mg/dL 70-110 H TESTED AT [place] [address] (BEAKER) [facility] 1538) [address] POCT-GLUCOSE [id number] 07:57:00 Test Item Value Reference Range Interpretation Comments POC-GLUCOSE METER 160 mg/dL 70-110 H TESTED AT [place] [address] (BEAKER) (test code = [facility] 1538) [address] POCT-GLUCOSE [id number] 21:56:00 Test Item Value Reference Range Interpretation Comments POC-GLUCOSE METER 210 mg/dL 70-110 H TESTED AT [place] [address] ([facility]) (test code = [facility] 1538) [address] BODY FLUID [id number] 18:30:00 Test Item Value Reference Range Interpretation Comments CRYSTALS, BODY FLUID No crystals seen. (BEAKER) (test code = 2165) [id number] Slade Granados MD (BEAKER) (test code = (electronic signature) 2514) POCT-GLUCOSE [id number] 17:51:00 Test Item Value Reference Range Interpretation Comments POC-GLUCOSE METER 152 mg/dL 70-110 H TESTED AT [place] [address] (BEAKER) (test code = [facility] 1538) [address] [id number] 13:48:00 Test Item Value Reference Range Interpretation Comments PHOSPHORUS (BEAKER) (test code = 4.7 mg/dL 2.3-4.7 604) BODY FLUID CULTURE + GRAM [id number] 12:29:00 Test Item Value Reference Range Interpretation Comments CULTURE (BEAKER) (test No growth code = 1095) GRAM STAIN RESULT <1+ White blood cells (BEAKER) (test code = seen 1123) GRAM STAIN RESULT No organisms seen (BEAKER) (test code = 95942) POCT-GLUCOSE [id number] 11:37:00 Test Item Value Reference Range Interpretation Comments POC-GLUCOSE METER 295 mg/dL 70-110 H TESTED AT [place] [address] (BEAKER) (test code = ALPHONSO Caicedo [facility] 1538) [address] POCT-GLUCOSE [id number] 07:36:00 Test Item Value Reference Range Interpretation Comments POC-GLUCOSE METER 219 mg/dL 70-[address] [facility] 6720 (BEAKER) (test code = ALPHONSO Caicedo [facility] 1538) [address] [id number] 06:49:00 Test Item Value Reference Range Interpretation Comments MAGNESIUM (BEAKER) (test code = 1.9 mg/dL 1.6-2.6 627) BASIC METABOLIC [id number] 06:49:00 Test Item Value Reference Range Interpretation [...] PATIEN TS. CBC W/PLT COUNT & AUTO [id number] 05:55:00 Test Item Value Reference Range Interpretation [...] PERCENT (BEAKER) (test code = 2801) POCT-GLUCOSE [id number] 21:34:00 Test Item Value Reference Range Interpretation Comments POC-GLUCOSE METER 218 mg/dL 70-110 H TESTED AT [place] [address] (BEAKER) (test code = ALPHONSO [place] 1538) [address] POCT-GLUCOSE [id number] 17:42:00 Test Item Value Reference Range Interpretation Comments POC-GLUCOSE METER 209 mg/dL 70-110 H TESTED AT [place] [address] ([facility]) (test code = ALPHONSO Caicedo [facility] 1538) [address] POCT-GLUCOSE [id number] 12:00:00 Test Item Value Reference Range Interpretation Comments POC-GLUCOSE METER 256 mg/dL 70-110 H TESTED AT [place] [address] (BEAKER) (test code = ALPHONSO Caicedo [facility] 1538) [address] POCT-GLUCOSE [id number] 08:07:00 Test Item Value Reference Range Interpretation Comments POC-GLUCOSE METER 226 mg/dL 70-110 H TESTED AT [place] [address] (BEAKER) (test code = ALPHONSO Caicedo [facility] 1538) [address] BASIC METABOLIC [id number] 06:16:00 Test Item Value Reference Range Interpretation [...] APPLICABLE FOR DIALYSIS PATIEN TS. VANCOMYCIN LEVEL, [id number] 06:16:00 Test Item Value Reference Range Interpretation Comments VANCOMYCIN RANDOM (BEAKER) (test 15.3 ug/mL code = 523) Reference Range: No NormalsCBC W/PLT COUNT & AUTO [id number] 06:16:00 Test Item Value Reference Range Interpretation [...] 0-1 PERCENT (BEAKER) (test code = 2801) [id number] 06:07:00 Test Item Value Reference Range Interpretation Comments MAGNESIUM (BEAKER) (test code = 2.0 mg/dL 1.6-2.6 627) POCT-GLUCOSE [id number] 21:22:00 Test Item Value Reference Range Interpretation Comments POC-GLUCOSE METER 276 mg/dL 70-[address] [facility] 6720 (BEAKER) (test code = ALPHONSO [place] 1538) [address] BODY FLUID CELL COUNT WITH [id number] 19:44:00 Test Item Value Reference Range Interpretation [...] = 2873) BODY FLUID CELL COUNT WITH [id number] 19:38:00 Test Item Value Reference Range Interpretation [...] code = 2873) LACTATE DEHYDROGENASE (LDH), BODY [id number] 19:16:00 Test Item Value Reference Range Interpretation [...] of specimen.RAD, CHEST, PA OR AP, 1 [id number] 19:12:00Reason for exam:->s/p left thoracentesisFINAL REPORT History: Status post left thoracentesis. Comparison: Same qitrs6939 hours Findings: A single view of the [...] MDReport Verified Date/Time: 01/19/2019 19:12:04 Reading Location: [address] Reading Room PH, BODY [id number] 19:06:00 Test Item Value Reference Range Interpretation Comments PH, BODY FLUID (BEAKER) (test code = 8.00 1530) ALBUMIN, BODY [id number] 18:55:00 Test Item Value Reference Range Interpretation Comments ALBUMIN FLUID (BEAKER) (test code = 2.9 gm/dL 501) Reference Range: No Normals Assay performance has not been validated for this type of specimen.AMYLASE, BODY [id number] 18:55:00 Test Item Value Reference Range Interpretation Comments AMYLASE FLUID (BEAKER) (test code = 18 U/L 30-110 L 350) Absence of reference range indicates that normals have not been defined.Assay performance has not been validated for this type of specimen.LACTATE DEHYDROGENASE (LDH), BODY [id number] 18:55:00 Test Item Value Reference Range Interpretation [...] validated for this type of specimen.TRIGLYCERIDES, BODY [id number] 18:55:00 Test Item Value Reference Range Interpretation Comments TRIGLYCERIDES FLUID (BEAKER) (test 49 mg/dL code = 539) Reference Range: No Normals Assay performance has not been validated for this type of specimen.CREATININE, BODY [id number] 18:55:00 Test Item Value Reference Range Interpretation Comments CREATININE FLUID (BEAKER) (test 3.31 mg/dL code = 677) Reference Range: No Normals Assay performance has not been validated for this type of specimen.GLUCOSE, BODY [id number] 18:55:00 Test Item Value Reference Range Interpretation Comments GLUCOSE, BODY FLUID (BEAKER) (test 204 mg/dL 70-110 H code = 1528) Absence of reference range indicates that normals have not been defined.Assay performance has not been validated for this type of specimen.SPECIFIC GRAVITY, BODY [id number] 18:49:00 Test Item Value Reference Range Interpretation Comments SP GRAVITY MISCELLANEOUS (BEAKER) (test 1.030 code = 557) Reference Range: No NormalsU/S, [id number] 18:35:00Laterality?- >LeftReason for exam:->pleural effusionFINAL REPORT Ultrasound Guided left Thoracentesis: Modality: Ultrasound Approach: Left Posterior Lateral Intercostal Sedation: None Findings: Informed consent was obtained. After an appropriate site for drainage was found, the skin was prepped and draped, and local anesthesia was given. A 4 Maldivian catheter was inserted into the left pleural space under ultrasound guidance,and approximately 1000 cc of yellow pleural fluid was aspirated. The catheter was removed. No immediate complications were noted. A postprocedure chest radiograph revealed no evidence of pneumothorax. Impression: 1. Uncomplicated ultrasound-guided left thoracentesis. Signed: Perfecto Arzate Verified Date/Time: 01/19/2019 18:35:33 Reading Location: [address] Transitional Reading Room El ectronically signed by: PERFECTO ARZATE M.D. on 01/19/2019 06:35 PMPOCT-GLUCOSE [id number] 18:27:00 Test Item Value Reference Range Interpretation Comments POC-GLUCOSE METER 245 mg/dL 70-110 H TESTED AT [place] [address] ([facility]) (test code = [facility] 1538) [address] POCT-GLUCOSE [id number] 13:05:00 Test Item Value Reference Range Interpretation Comments POC-GLUCOSE METER 169 mg/dL 70-110 H TESTED AT [place] [address] ([facility]) (test code = [facility] 1538) [address] RAD, CHEST, 1 VIEW, NON [id number] 10:50:00Reason for exam:->s/p pericardial drainShould this be [...] Arzate Verified Date/Time: 01/19/2019 10:50:13 Reading Location: [address] Transitional Reading Room VANCOMYCIN LEVEL, [id number] 09:24:00 Test Item Value Reference Range Interpretation Comments VANCOMYCIN RANDOM (BEAKER) (test 31.8 ug/mL code = 523) Reference Range: No NormalsBASIC METABOLIC [id number] 05:55:00 Test Item Value Reference Range Interpretation [...] PATIEN TS. CBC W/PLT COUNT & AUTO [id number] 05:07:00 Test Item Value Reference Range Interpretation [...] PERCENT (BEAKER) (test code = 2801) POCT-GLUCOSE [id number] 00:04:00 Test Item Value Reference Range Interpretation Comments POC-GLUCOSE METER 134 mg/dL 70-[address] [facility] 6720 (BEAKER) (test code = [facility] 1538) [id number] POCT-GLUCOSE [id number] 21:27:00 Test Item Value Reference Range Interpretation Comments POC-GLUCOSE METER 227 mg/dL 70-[address] [facility] 6720 (BEAKER) (test code = [facility] 1538) [id number] BODY FLUID CELL COUNT WITH [id number] 19:53:00 Test Item Value Reference Range Interpretation Comments APPEARANCE FLUID (BEAKER) Bloody Clear A (test code = 510) COLOR FLUID (BEAKER) (test Red Colorless, Straw A code = 511) RBC FLUID (BEAKER) (test code 203264 /cu mm <=1 H = 513) ADJUSTED [...] Tube (test code = 2873) ALBUMIN, BODY [id number] 19:29:00 Test Item Value Reference Range Interpretation Comments ALBUMIN FLUID (BEAKER) (test code = 3.3 gm/dL 501) Reference Range: No Normals Assay performance has not been validated for this type of specimen.[id number] 09:21:00 Test Item Value Reference Range Interpretation Comments PROCALCITONIN (BEAKER) (test code 0.53 ng/mL <0.05 H = 3036) SEPSIS RISK (ng/mL)Low: 0.05-0.50Intermediate: 0.51-2.00High: >=2.01TROPONIN [id number] 08:35:00 Test Item Value Reference Range Interpretation [...] H (test code = 700) BASIC METABOLIC [id number] 08:30:00 Test Item Value Reference Range Interpretation [...] APPLICABLE FOR DIALYSIS PATIEN TS. HEPATIC FUNCTION [id number] 08:28:00 Test Item Value Reference Range Interpretation [...] code = 14 U/L 6-55 347) PROTHROMBIN [id number] 08:25:00 Test Item Value Reference Range Interpretation Comments PROTIME (BEAKER) (test code = 16.7 seconds 11.7-14.7 H 759) INR (BEAKER) (test code = 370) 1.4 <=5.9 RECOMMENDED COUMADIN/WARFARIN INR THERAPY RANGESSTANDARD DOSE: 2.0 - 3.0 Includes: PROPHYLAXIS forvenous thrombosis, systemic embolization; TREATMENT for venous thrombosis and/or pulmonary embolus.HIGH RISK: Target INR is 2.5-3.5 for patients with mechanical heart valves.RAD, CHEST, 1 VIEW, NON [id number] 08:09:00Reason for exam:->feverShould this be performed at [...] Chan Verified Date/Time: 01/18/2019 08:09:08 Reading Location: [facility] Radiology Reading Room CBC W/PLT COUNT [...] (BEAKER) (test code = 2801) POCT-LACTIC ACID, [id number] 08:06:00 Test Item Value Reference Range Interpretation Comments POC-LACTIC ACID, 1.0 mmol/L 0.9-1.7 TESTED AT [facility] [address] VENOUS (BEAKER) (test [facility] code = 2805) [address]010 BLOOD [id number] 08:00:00 Test Item Value Reference Range Interpretation Comments CULTURE (BEAKER) (test No growth in 5 days code = 1095) BLOOD [id number] 08:00:00 Test Item Value Reference Range Interpretation Comments CULTURE (BEAKER) (test No growth in 5 days code = 1095) HEMOGLOBIN [id number] 20:14:00 Test Item Value Reference Range Interpretation Comments HEMOGLOBIN A1C (BEAKER) (test code = 6.8 % 4.3-6.1 H 368) RAD, CHEST, 1 VIEW, NON [id number] 16:01:00Reason for exam:->respiratory insufficiencyShould this be performed [...] MDReport Verified Date/Time: 01/08/2019 16:01:59 Reading Location: [address] Consult Reading Room Electronically signedby: ACOSTA BECKER M.D. on 01/08/2019 04:01 PMPOCT-GLUCOSE [id number] 12:01:00 Test Item Value Reference Range Interpretation Comments POC-GLUCOSE METER 178 mg/dL 70-[address] [facility] 6720 (BEAKER) (test code = [place] 1538) [address] BASIC METABOLIC [id number] 06:13:00 Test Item Value Reference Range Interpretation [...] (BEAKER) (test code = 412) PLATELET COUNT ([facility]) (test 256 K/CU MM 150-450 code = 756) MEAN PLATELET VOLUME (AKER) 11.9 fL 9.4-12.4 (test code = 754) NUCLEATED RED BLOOD CELLS 0 /100 WBC 0-0 ([facility]) (test code = 413) POCT-GLUCOSE [id number] 21:50:00 Test Item Value Reference Range Interpretation Comments POC-GLUCOSE METER 211 mg/dL 70-110 H TESTED AT [place] [address] ([facility]) (test code = ALPHONSO Caicedo [facility] 1538) [address] POCT-GLUCOSE [id number] 18:22:00 Test Item Value Reference Range Interpretation Comments POC-GLUCOSE METER 118 mg/dL 70-110 H TESTED AT [place] [address] ([facility]) (test code = JIGNESHMARK Caicedo [facility] 1538) [address] POCT-GLUCOSE [id number] 12:04:00 Test Item Value Reference Range Interpretation Comments POC-GLUCOSE METER 158 mg/dL 70-110 H TESTED AT [place] [address] ([facility]) (test code = [facility] Sascha [facility] 1538) [address] RAD, CHEST, 1 VIEW, NON [id number] 10:43:00Reason for exam:->respiratory insufficiencyShould this be performed at the bedside?->YesFINAL REPORT INDICATION: respiratory insufficiency COMPARISON:January 06 TECHNIQUE: Chest radiograph, single view, portable technique. FINDINGS / IMPRESSION: Enlarged heart shadow andnonspecific left retrocardiac opacity again demonstrated. Pulmonary veins are prominent but no overtpulmonary edema. No pneumothorax. Osseous structures unremarkable. Signed: Franky Mix MDReport Verified Date/Time: 01/07/2019 10:43:17 Reading Location: [facility] Radiology Reading Room POCT-GLUCOSE [id number] 08:09:00 Test Item Value Reference Range Interpretation Comments POC-GLUCOSE METER 145 mg/dL 70-[address] [facility] 6720 ([facility]) (test code = ALPHONSO R [place] 1538) [address] POCT-GLUCOSE [id number] 21:32:00 Test Item Value Reference Range Interpretation Comments POC-GLUCOSE METER 274 mg/dL 70-110 H TESTED AT [place] [address] ([facility]) (test code = ALPHONSO R [place] 1538) [address] POCT-GLUCOSE [id number] 17:20:00 Test Item Value Reference Range Interpretation Comments POC-GLUCOSE METER 215 mg/dL 70-[address] [facility] 6720 ([facility]) (test code = BERTNE R [place] 1538) [address] POCT-GLUCOSE [id number] 14:33:00 Test Item Value Reference Range Interpretation Comments POC-GLUCOSE METER 200 mg/dL 70-[address] [facility] 6720 ([facility]) (test code = JIGNESHNE R [place] 1538) [address] POCT-GLUCOSE [id number] 11:13:00 Test Item Value Reference Range Interpretation Comments POC-GLUCOSE METER 289 mg/dL 70-110 H TESTED AT [place] [id number] ([facility]) (test code = JIGNESHNE R [place] 1538) [address] POCT-GLUCOSE [id number] 08:08:00 Test Item Value Reference Range Interpretation Comments POC-GLUCOSE METER 180 mg/dL 70-110 H TESTED AT [place] [id number] ([facility]) (test code = BERTNE R [place] 1538) [address] RAD, CHEST, 1 VIEW, NON [id number] 07:40:00Reason for exam:->respiratory insufficiencyShould this be performed at the bedside?->YesFINAL REPORT Chest dated 01/06/2019 COMPARISON: 01/05/2019 Clinical Information:respiratory insufficiency Comment: Heart is enlarged. Pulmonary vasculature is indistinct. Interstitial disease is seen bilaterally suggestive of vascular congestion unchanged from prior study. There is small left pleural effusion. Signed: Yuridia Wallace MDReport Verified Date/Time: 01/06/2019 07:40:30 Reading Location: [address] Consult Reading Room Electronically signed by: YURIDIA WALLACE M.D.on 01/06/2019 07:40 AMBASIC METABOLIC [id number] 07:18:00 Test Item Value Reference Range Interpretation [...] APPLICABLE FOR DIALYSIS PATIEN TS. VANCOMYCIN LEVEL, [id number] 07:13:00 Test Item Value Reference Range Interpretation Comments VANCOMYCIN RANDOM (BEAKER) (test 17.4 ug/mL code = 523) Reference Range: No [id number] 07:09:00 Test Item Value Reference Range Interpretation Comments MAGNESIUM (BEAKER) (test code = 2.1 mg/dL 1.6-2.6 627) POCT-GLUCOSE [id number] 21:46:00 Test Item Value Reference Range Interpretation Comments POC-GLUCOSE METER 173 mg/dL 70-110 H TESTED AT [place] [address] ([facility]) (test code = ALPHONSO Caicedo [facility] 1538) [address] POCT-GLUCOSE [id number] 16:20:00 Test Item Value Reference Range Interpretation Comments POC-GLUCOSE METER 172 mg/dL 70-110 H TESTED AT [place] [address] ([facility]) (test code = [place]PH[place] 1538) [address] POCT-GLUCOSE [id number] 12:21:00 Test Item Value Reference Range Interpretation Comments POC-GLUCOSE METER 260 mg/dL 70-110 H TESTED AT [place] [address] ([facility]) (test code = ALPHONSO Caicedo [facility] 1538) [address] POCT-GLUCOSE [id number] 08:37:00 Test Item Value Reference Range Interpretation Comments POC-GLUCOSE METER 153 mg/dL 70-110 H TESTED AT [place] [address] ([facility]) (test code = ALPHONSO Caicedo [facility] 1538) [address] RAD, CHEST, 1 VIEW, NON [id number] 07:04:00Reason for exam:->respiratory insufficiencyShould this be performed at the bedside?->YesFINAL REPORT RAD, CHEST, 1 VIEW, NON DEPT INDICATION: respiratory insufficiency COMPARISON: Prior day's exam FINDINGS: Portable frontal view of the chest. IMPRESSION: Support Lines: External leads Lungs and pleura: Bibasilar subsegmental atelectasis No pneumothorax.Heart and mediastinum: Stable contours. Additional findings: None. Signed: Dsaia Britt MDReport Verified Date/Time: 01/05/2019 07:04:08 Reading Location: [facility] C0V Neuro Reading Room BASIC METABOLIC [id number] 05:47:00 Test Item Value Reference Range Interpretation [...] S NOT APPLICABLE FOR DIALYSIS PATIEN TS. [id number] 05:36:00 Test Item Value Reference Range Interpretation Comments MAGNESIUM (BEAKER) (test code = 1.9 mg/dL 1.6-2.6 627) CBC W/PLT COUNT & AUTO [id number] 05:18:00 Test Item Value Reference Range Interpretation [...] (BEAKER) (test code = 2801) BLOOD GAS, [id number] 05:12:00 Test Item Value Reference Range Interpretation [...] code = 1819) 21.0 % LACTIC ACID, [id number] 05:00:00 Test Item Value Reference Range Interpretation Comments LACTATE BLOOD ARTERIAL (2) 1.0 mmol/L 0.5-2.2 (BEAKER) (test code = 2874) BASIC METABOLIC [id number] 23:29:00 Test Item Value Reference Range Interpretation [...] S NOT APPLICABLE FOR DIALYSIS PATIEN TS. [id number] 23:17:00 Test Item Value Reference Range Interpretation Comments MAGNESIUM (BEAKER) (test code = 1.9 mg/dL 1.6-2.6 627) CBC W/PLT COUNT & AUTO [id number] 22:52:00 Test Item Value Reference Range Interpretation [...] PERCENT (BEAKER) (test code = 2801) POCT-GLUCOSE [id number] 22:52:00 Test Item Value Reference Range Interpretation Comments POC-GLUCOSE METER 221 mg/dL 70-110 H TESTED AT [place] [address] ([facility]) (test code = ALPHONSO Caicedo [facility] 1538) [address] POCT-GLUCOSE [id number] 19:02:00 Test Item Value Reference Range Interpretation Comments POC-GLUCOSE METER 182 mg/dL 70-110 H TESTED AT [place] [address] ([facility]) (test code = ALPHONSO Caicedo [facility] 1538) [address] POCT-GLUCOSE [id number] 15:31:00 Test Item Value Reference Range Interpretation Comments POC-GLUCOSE METER 150 mg/dL 70-110 H TESTED AT [place] [address] ([facility]) (test code = ALPHONSO Caicedo [facility] 1538) [address] POCT-GLUCOSE [id number] 12:07:00 Test Item Value Reference Range Interpretation Comments POC-GLUCOSE METER 284 mg/dL 70-[address] [facility] 6720 (BEAKER) (test code = [place] 1538) [address] RAD, CHEST, 1 VIEW, NON [id number] 08:49:00Reason for exam:->respiratory insufficiencyShould this be performed [...] MDReport Verified Date/Time: 01/04/2019 08:49:14 Reading Location: [facility] Radiology Reading Room BASIC METABOLIC [id number] 06:21:00 Test Item Value Reference Range Interpretation [...] S NOT APPLICABLE FOR DIALYSIS PATIEN TS. [id number] 06:09:00 Test Item Value Reference Range Interpretation Comments POTASSIUM (BEAKER) (test code = 5.5 meq/L 3.5-5.1 H 379) [id number] 06:09:00 Test Item Value Reference Range Interpretation Comments MAGNESIUM (BEAKER) (test code = 2.2 mg/dL 1.6-2.6 627) [id number] 06:09:00 Test Item Value Reference Range Interpretation Comments PHOSPHORUS (BEAKER) (test code = 5.8 mg/dL 2.3-4.7 H 604) CBC W/PLT COUNT & AUTO [id number] 05:54:00 Test Item Value Reference Range Interpretation [...] (BEAKER) (test code = 2801) BLOOD GAS, [id number] 05:34:00 Test Item Value Reference Range Interpretation [...] = 1819) 21.0 % HEPATITIS B SURFACE [id number] 03:29:00 Test Item Value Reference Range Interpretation Comments HEPATITIS B SURFACE ANTIGEN (2) Nonreactive Nonreactive (BEAKER) (test code = 2585) TROPONIN [id number] 03:04:00 Test Item Value Reference Range Interpretation [...] 340 U/L 29-200 H code = 380) [id number] 02:42:00 Test Item Value Reference Range Interpretation [...] for patients with mechanical heart valves.BLOOD GAS, [id number] 02:15:00 Test Item Value Reference Range Interpretation [...] (test code = 1819) 21.0 % POCT-GLUCOSE [id number] 00:41:00 Test Item Value Reference Range Interpretation Comments POC-GLUCOSE METER 237 mg/dL 70-[address] [facility] 6720 (BEAKER) (test code = ALPHONSO [place] 1538) [address] TROPONIN [id number] 00:28:00 Test Item Value Reference Range Interpretation [...] acute neurological disease, and persistent tachyarrhythmia.COMPREHENSIVE METABOLIC [id number] 00:24:00 Test Item Value Reference Range Interpretation [...] S NOT APPLICABLE FOR DIALYSIS PATIEN TS. [id number] 00:21:00 Test Item Value Reference Range Interpretation Comments MAGNESIUM (BEAKER) (test code = 2.0 mg/dL 1.6-2.6 627) LACTIC ACID, [id number] 00:16:00 Test Item Value Reference Range Interpretation Comments LACTATE BLOOD ARTERIAL (2) 1.3 mmol/L 0.5-2.2 (BEAKER) (test code = 2874) BLOOD GAS, [id number] 23:54:00 Test Item Value Reference Range Interpretation [...] 40.0 % RAD, CHEST, 1 VIEW, NON [id number] 22:24:00Reason for exam:- >hypotensionShould this be performed at the bedside?->YesFINAL REPORT Chest dated 01/03/2019 Clinical Information: hypotension Comment:Heart is enlarged. Pulmonary vasculature is indistinct. Interstitial disease is seen bilaterally suggestive of vascular congestion. Endotracheal tube is present. A curvilinear radiopaque density is seen in the mid upper chest. Please correlate clinically. Signed: Yuridia Wallace MDReport Verified Date/Time: 01/03/2019 22:24:07 Reading Location: [address] Consult [facility] MET[facility]OL[facility] [id number] 22:08:00 Test Item Value Reference Range Interpretation [...] S NOT APPLICABLE FOR DIALYSIS PATIEN TS. [id number] 22:07:00 Test Item Value Reference Range Interpretation Comments MAGNESIUM (BEAKER) 2.0 mg/dL 1.6-2.6 Specimen slightly (test code = 627) hemolyzed [id number] 22:07:00 Test Item Value Reference Range Interpretation Comments PHOSPHORUS (BEAKER) 5.1 mg/dL 2.3-4.7 H Specimen slightly (test code = 604) hemolyzed POTASSIUM-STAT [id number] 21:42:00 Test Item Value Reference Range Interpretation Comments POTASSIUM (BEAKER) (test code = 4.7 meq/L 3.6-5.5 379) GLUCOSE-STAT [id number] 21:42:00 Test Item Value Reference Range Interpretation Comments GLUCOSE RANDOM (BEAKER) (test code 205 mg/dL 70-110 H = 652) SODIUM NA-STAT [id number] 21:42:00 Test Item Value Reference Range Interpretation Comments SODIUM (BEAKER) (test code = 381) 134 meq/L 135-148 L HGB/HCT (H&H) - STAT [id number] 21:42:00 Test Item Value Reference Range Interpretation Comments HEMOGLOBIN (BEAKER) (test code = 8.3 g/dL 13.0-16.8 L 410) HEMATOCRIT (BEAKER) (test code = 24.0 % 40.0-50.0 L 411) [id number] 21:34:00 Test Item Value Reference Range Interpretation [...] for patients with mechanical heart valves.LACTIC ACID, [id number] 21:27:00 Test Item Value Reference Range Interpretation Comments LACTATE BLOOD VENOUS 1.7 mmol/L 0.5-2.2 Specime n moderately (2) (BEAKER) (test hemolyzed code = 2872) CBC W/PLT COUNT & AUTO [id number] 21:16:00 Test Item Value Reference Range Interpretation [...] (BEAKER) (test code = 2801) BLOOD GAS, [id number] 21:03:00 Test Item Value Reference Range Interpretation [...] (BEAKER) (test code = 1819) 40.0 % [id number] 18:33:00 Test Item Value Reference Range Interpretation Comments ACTIVATED CLOTTING TIME 384 sec TEST ED AT [facility] 6720 (BEAKER) (test code = [place] 441) [id number] PROTHROMBIN [id number] 14:04:00 Test Item Value Reference Range Interpretation [...] PERCENT (BEAKER) (test code = 2801) TROPONIN [id number] 12:20:00 Test Item Value Reference Range Interpretation [...] acute neurological disease, and persistent tachyarrhythmia.COMPREHENSIVE METABOLIC [id number] 12:15:00 Test Item Value Reference Range Interpretation [...] (test code = 353) ALT (SGPT) (BEAKER) 23 U/L 6-55 (test code = 347) EGFR (BEAKER) (test 10 mL/min/1.73 ESTIMA ERUM GFR IS code = 1092) sq m NOT ACCURATE CREATININE CLEARANCE IN PREDICTING GLOMERULAR FILTRATION RATE . ESTIMATED GFR I S NOT APPLICABLE FOR DIALYSIS PATILADY TS. LIPID [id number] 12:13:00 Test Item Value Reference Range Interpretation Comments TRIGLYCERIDES (Diavibe) (test code = 158 mg/dL 540) CHOLESTEROL (Diavibe) (test code = 113 mg/dL 631) HDL CHOLESTEROL (UXPinAKER) (test code 34 mg/dL = 976) LDL CHOLESTEROL CALCULATED (UXPinAKER) 47 mg/dL (test code = 633) Triglyceride Reference Range: Low Risk <150 Borderline 150-199 High Risk 200-499 Very High Risk >=500Cholesterol Reference Range: Low Risk <200 Borderline 200-239 High Risk >240HDL Cholesterol Reference Range: Low Risk >=60 High Risk <40LDL Cholesterol Reference Range: Optimal <100 Near Optimal 100-129 Borderline 130-159 High 160-189 Very High >=190POCT-GLUCOSE [id number] 11:26:00 Test Item Value Reference Range Interpretation Comments POC-GLUCOSE METER 291 mg/dL 70-[address] [facility] 6720 ([facility]) (test code = [place] 2756) [address]
[2022-01-15] MEDS ORDERED: TETANUS & DIPHTHERIA TOX,ADULT 0.5 ML VIAL ONE (01:21)
[2022-01-15] MEDS ORDERED: LIDOCAINE 1% W/EPI 1:100,000 MDV 20 ML VIAL ONE (01:21)
--- NOTE | 2022-01-15 03:15 | ER ---
Nurse's Notes [facility] Name: Shelli Mireles Age: 71 yrs Sex: Male : 1950 Arrival Date: 01/15/2022 Time: 00:35 Bed 6 Private MD: Diagnosis: Laceration without foreign body of right hand, initial encounter Presentation: 01/15 01:09 Chief complaint: Patient states: "I cut my hand around 8 PM on some fiberglass for the tw5 shower. I was moving some stuff around. It just wont stop bleeding.". Coronavirus screen: Vaccine status: Patient reports receiving the 2nd dose of the covid vaccine. Ebola Screen: Patient negative for fever greater than or equal to 101.5 degrees Fahrenheit, and additional compatible Ebola Virus Disease symptoms Patient denies exposure to infectious person. Patient denies travel to an Ebola-affected area in the 21 days before illness onset. Complicating Factors: "I don't know if there is something still in my hand or not.". Initial Sepsis Screen: Does the patient meet any 2 criteria? No. Patient's initial sepsis screen is negative. Does the patient have a suspected source of infection? No. Patient's initial sepsis screen is negative. Risk Assessment: Do you want to hurt yourself or someone else? Patient reports no desire to harm self or others. Onset of symptoms was January 14, 2022 at 20:00. 01:09 Method Of Arrival: Ambulatory tw5 01:09 Acuity: MICHELLE 4 tw5 Triage Assessment: 01:14 General: Appears in no apparent distress. Behavior is calm, cooperative, appropriate tw5 for age. Pain: Pain currently is 0 out of 10 on a pain scale. Injury Description: Laceration sustained to palm of right hand. Historical: - Allergies: 01:14 Bactrim; tw 01:14 Demerol; tw01 02:14 Ibuprofen; :14 Sulfa (Sulfonamide Antibiotics); :14 TETRACYCLINES; tw5 - PMHx: 01:14 Cardiac Stents x3; Diabetes - IDDM; diabetic retinopathy; Dialysis (started 03/20/17); tw5 High Cholesterol; Hypertension; PE; RENAL FAILURE; - Immunization history:: Flu vaccine is up to date. - Social history:: Smoking status: Patient denies any tobacco usage or history of. Screenin:54 Abuse screen: Denies threats or abuse. Nutritional screening: No deficits noted. ke1 Tuberculosis screening: No symptoms or risk factors identified. 01:55 Fall Risk No fall in past 12 months (0 pts). No secondary diagnosis (0 pts). No IV (0 ke1 pts). Ambulatory Aid- None/Bed Rest/Nurse Assist (0 pts). Gait- Normal/Bed Rest/Wheelchair (0 pts) Mental Status- Oriented to own ability (0 pts). Total Anguiano Fall Scale indicates No Risk (0-24 pts). Assessment: 01:54 Reassessment: No changes from previously documented assessment. Patient is alert, ke1 oriented x 3, equal unlabored respirations, skin warm/dry/pink. 02:00 Injury Description: Laceration sustained to palm of right hand is not bleeding. ke1 03:43 Musculoskeletal: Capillary refill < 3 seconds, in left fingers. Range of motion: intact ke1 in all extremities. Vital Signs: 01:09 BP 173 / 58; Pulse 76; Resp 18; Temp 98.8; Pulse Ox 98% on R/A; Weight 125 kg; Height 5 tw5 ft. 11 in. (180.34 cm); Pain 0/10; 03:45 BP 158 / 62; Pulse 74; Resp 18; Pulse Ox 100% on R/A; ke1 01:09 Body Mass Index 38.43 (125.00 kg, 180.34 cm) tw5 ED Course: 00:35 Patient arrived in ED. bp1 00:58 Jaime Choi DO is Attending Physician. ms3 01:14 Triage completed. tw5 01:14 Arm band placed on right wrist. Patient placed in an exam room, on a stretcher. tw5 01:37 Contreras Saleh, FORREST is Primary Nurse. ke1 01:55 Bed in low position. Call light in reach. ke1 02:18 Hand Right 3 View XRAY In Process Unspecified. EDMS 03:42 No provider procedures requiring assistance completed. Patient did not have IV access ke1 during this emergency room visit. 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 Exp: jb4 11/13/2023. Lot #: [id number]. } Route: IM; Site: right deltoid; 03:00 Drug: Lidocaine-Epinephrine -1%: (1:100,000) 10 ml {Note: by MD choi.} Volume: 20 ml; ke1 Route: Infiltration; Medication: 01:25 Vaccine Information Statement (VIS) provided today. Questions and/or concerns jb4 addressed. VIS edition date: April 09, 2021. Outcome: 03:14 Discharge ordered by . ms3 03:43 Discharged to home ambulatory. ke1 03:43 Condition: good 03:43 Discharge instructions given to patient. 03:45 Patient left the ED. ke1 Signatures: Dispatcher [employer] EDMS Luiz Lui, RN RN jb4 Jaime Choi DO DO ms3 Lisa Aquino Tiffany 5 Contreras Saleh, RN RN ke1
--- NOTE | 2022-01-15 03:46 | EDPHYS ---
Physician Documentation [facility] Name: Shelli Mireles Age: 71 yrs Sex: Male : 1950 Arrival Date: 01/15/2022 Time: 00:35 Bed 6 Private MD: ED Physician Jaime Choi HPI: 01/15 03:14 This 71 yrs old Male presents to ER via Ambulatory with complaints of Laceration To ms3 Hand. 03:14 The patient has a laceration related to: Fiberglass shower. The laceration(s) is(are) ms3 located on the right hand. Onset: The symptoms/episode began/occurred 5 hour(s) ago. Associated signs and symptoms: Pertinent negatives: dizziness, heavy bleeding. Historical: - Allergies: 01:14 Bactrim; tw5 01:14 Demerol; tw 01:14 Ibuprofen; tw 01:14 Sulfa (Sulfonamide Antibiotics); tw 01:14 TETRACYCLINES; tw - PMHx: 01:14 Cardiac Stents x3; Diabetes - IDDM; diabetic retinopathy; Dialysis (started 03/20/17); tw High Cholesterol; Hypertension; PE; RENAL FAILURE; - Immunization history:: Flu vaccine is up to date. - Social history:: Smoking status: Patient denies any tobacco usage or history of. ROS: 03:14 Constitutional: Negative for fever, and chills. Neck: Negative for injury, pain, and ms3 swelling, Cardiovascular: Negative for chest pain, and palpitations. Respiratory: Negative for shortness of breath, cough, wheezing, and pleuritic chest pain, Abdomen/GI: Negative for abdominal pain, nausea, vomiting, diarrhea, and constipation, MS/Extremity: Negative for injury and deformity. 03:14 Skin: Positive for laceration(s). 03:14 All other systems are negative. Exam: 03:14 Constitutional: This is a well developed, well nourished patient who is awake, alert, ms3 and in no acute distress. Head/Face: Normocephalic, atraumatic. Neck: Trachea midline, no cervical lymphadenopathy. Supple, full range of motion without nuchal rigidity, or vertebral point tenderness. No Meningismus. Chest/axilla: Normal chest wall appearance and motion. Nontender with no deformity. Cardiovascular: Regular rate and rhythm with a normal S1 and S2. No gallops, murmurs, or rubs. Normal PMI, no JVD. No pulse deficits. Respiratory: Lungs have equal breath sounds bilaterally, clear to auscultation and percussion. No rales, rhonchi or wheezes noted. No increased work of breathing, no retractions or nasal flaring. Abdomen/GI: Soft, non-tender, with normal bowel sounds. No distension or tympany. No guarding or rebound. No evidence of tenderness throughout. Psych: Awake, alert, with orientation to person, place and time. Behavior, mood, and affect are within normal limits. 03:14 Musculoskeletal/extremity: Extremities: noted in the right hand: laceration. Vital Signs: 01:09 BP 173 / 58; Pulse 76; Resp 18; Temp 98.8; Pulse Ox 98% on R/A; Weight 125 kg; Height 5 tw5 ft. 11 in. (180.34 cm); Pain 0/10; 03:45 BP 158 / 62; Pulse 74; Resp 18; Pulse Ox 100% on R/A; ke1 01:09 Body Mass Index 38.43 (125.00 kg, 180.34 cm) tw5 Laceration: 03:14 Wound Repair of 2cm ( 0.8in ) subcutaneous laceration to right hand. Skin/tissue flap ms3 noted.. Minimal bleeding noted.. Distal neuro/vascular/tendon intact. Anesthesia: Wound infiltrated with 3 mls of 1% lidocaine w/ Epi. Wound prep: Simple cleansing by me. Skin closed with 3 5-0 Prolene using simple sutures and sterile technique. Dressed with 4x4's. Patient tolerated well. MDM: 01:11 Patient medically screened. ms3 03:14 Differential diagnosis: superficial laceration. Data reviewed: vital signs, nurses ms3 notes, radiologic studies. Data interpreted: Pulse oximetry: on room air is 98 %. Interpretation: normal. ED course: Discussed xray, physical exam findings with patient. Patient to follow-up with primary care physician in 2 to 3 days. Patient understands and agrees with plan. All questions were answered. Return precautions discussed include worsening symptoms, or any other concerns. On reevaluation patient is alert and oriented x4, in no apparent distress, nontoxic-appearing, speaking full sentences, ambulatory in emergency department, wound hemostatic.. 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 Exp: jb4 11/13/2023. Lot #: [id number]. } Route: IM; Site: right deltoid; 03:00 Drug: Lidocaine-Epinephrine -1%: (1:100,000) 10 ml {Note: by MD choi.} Volume: 20 ml; ke1 Route: Infiltration; Disposition Summary: 01/15/22 03:14 Discharge Ordered Location: Home ms3 Condition: Stable ms3 Diagnosis - Laceration without foreign body of right hand, initial encounter ms3 Followup: ms3 - With: Private Physician - When: 2 - 3 days - Reason: Recheck today's complaints Discharge Instructions: - Discharge Summary Sheet ms3 - Laceration Care, Adult ms3 Forms: - Medication Reconciliation Form ms3 - Thank You Letter ms3 - Antibiotic Education ms3 - Prescription Opioid Use ms3 Signatures: Dispatcher [employer] EDLuiz Bhandari, RN RN jb4 Jaime Choi DO DO ms3 Meoldy Lei tw5 Contreras Saleh, RN RN ke1
--- NOTE | 2022-01-15 15:33 | RAD REPORT ---
EXAM DESCRIPTION: RAD - Hand Right 3 View - 01/15/2022 2:16 am CLINICAL HISTORY: 71 years, Male, laceration COMPARISON: None. FINDINGS: 3 X-ray views of the right hand (Frontal, lateral and oblique views) were performed. No acute bony injuries were demonstrated. No gross articular or soft tissue abnormality is identifi ed. There are no gross intraosseous lesions. No periosteal reaction were seen. There are vascul ar ossifications of a radial and ulnar artery as well as interdigital arteries. No evidence for right opaque foreign body. IMPRESSION: No acute bony injuries were demonstrated. Electronically signed by: Kennedy Broderick MD 01/15/2022 2:48 AM CDT Due to temporary technical issues with the PACS/Fluency reporting system, reports are being signed by the in house radiologists without review as a courtesy to insure prompt reporting. The interpreting radiologist is fully responsible for the content of the report.
[2022-01-15 17:04] VITALS: TEMP 98.8
[2022-01-15 17:06] VITALS: BP 158/62; O2SAT 100
== END 2022-01-15 03:45 | disposition home or self-care (01) ==
LOC: ER 00:32
PROC: 0JQJ0ZZ Repair Right Hand Subcutaneous Tissue and Fascia, Open Approach (ICD-10-PCS; principal; 2022-01-15)
DX: S61.411A Laceration without foreign body of right hand, initial encounter (principal); W45.8XXA Other foreign body or object entering through skin, initial encounter; E11.22 Type 2 diabetes mellitus with diabetic chronic kidney disease; N18.9 Chronic kidney disease, unspecified; I12.9 Hypertensive chronic kidney disease with stage 1 through stage 4 chronic kidney disease, or unspecified chronic kidney disease; Z23 Encounter for immunization; Z99.2 Dependence on renal dialysis; Z95.818 Presence of other cardiac implants and grafts; Z88.1 Allergy status to other antibiotic agents; Z88.2 Allergy status to sulfonamides; Z88.5 Allergy status to narcotic agent; Z88.6 Allergy status to analgesic agent
CPT/HCPCS: 90471; 90714; 99283

== ENCOUNTER 2022-10-18 00:37 | Emergency (ER) | payer OTHER, MEDICARE ==
--- OUTSIDE RECORDS SUMMARY | 2022-10-18 00:54 | XMS REPORT | Continuity of Care Document ---
:1950 Author Organization [facility] t Address [address] [place] [address] Care Team Providers Name Role Phone OSCAR MAURICE Primary Care Physician Unavailable AGUSTIN PATEL Attending Clinician Unavailable Coby Polanco MD Attending Clinician COBY POLANCO Attending Clinician Unavailable Tiara Cuellar MD Attending Clinician Jamel Peralta Attending Clinician [phone] COBY POLANCO Attending Clinician Unavailable ARRON MERCEDES Attending Clinician Unavailable Arron Mercedes MD Attending Clinician Arron Mercedes Attending Clinician ARRON MERCEDES Attending Clinician Unavailable Shady Tena MD Attending Clinician Jim Oscar Attending Clinician [phone] Alexandra Sylvester MD Attending Clinician Pati Piña MD Attending Clinician Ellen FARR, Ludmila De Jesus Attending Clinician Shiv Multani MD Attending Clinician SHIV MULTANI Attending Clinician Unavailable ALEXANDRA SYLVESTER Attending Clinician Unavailable Agustin Patel MD Attending Clinician AGUSTIN PATEL Attending Clinician Unavailable CHAYITO ANGULO Attending Clinician Unavailable LEANDER DOSS Attending Clinician Unavailable MALCOLM BAIN Attending Clinician Unavailable MALENA YEPEZ Attending Clinician Unavailable JOSEE KURTZ Attending Clinician Unavailable JEANETTE BANUELOS Attending Clinician Unavail able Pepe Ta Attending Clinician COBY POLANCO Admitting Clinician Unavailable ARRON MERCEDES Admitting Clinician Unavailable LUDMILA HUGHES Admitting Clinician Unavailable NEVIN RODRIGUEZ Admitting Clinician Unavailable ONEAL CORDON Admitting Clinician Unavailable CARROLL LOPEZ Admitting Clinician Unavailable AIMEE ESTES Admitting Clinician Unavailable FRENCH TRIPP Admitting Clinician Unavailable LEONORA BANUELOS-JANETH LOERA Admitting Clinician Unavail able Payers Payer Name Policy Type Policy Number Effective Date Expiration Date [facility] MEDICARE PART A \\[id number] 2016 B - MEDICARE 00:00:00 [facility] MEDICARE [id number] 2018 SUPPLEMENT PLAN - 00:00:00 [facility] Problems Condition Condition Condition Status Onset Resolution Last Treating Co mments Source Name Details Category Date Date Treatment Clinician Date Pacemaker Pacemaker Disease Active [facility] malfunctio malfunctio 5-25 Meri kes n n 00:00: Medical 00 Center HFrEF HFrEF Disease Active [facility] (heart (heart 5-24 [facility] failure failure 00:00: Medical with with 00 Center reduced reduced ejection ejection fraction) fraction) Atheroscle Atheroscle Disease Active 2020-[address] rosis of rosis of 0-14 [facility] Medical coronary coronary 00 Center artery artery S/P CABG x S/P CABG x Disease Active [facility] 3 by 3 by 2-24 Kristy Scott on Scott on 00:00: Medical 10/28/2019 10/28/2019 00 Ce nter NSTEMI NSTEMI Disease Active [facility] (non-ST (non-ST 2-18 [facility] elevated elevated 00:00: Medica l myocardial myocardial 00 Ce nter infarction infarction ) ) Pericardia Pericardia Disease Active [facility] l l 5-17 [facility] tamponade tamponade 00:00: Medi lashaun 00 [place] Chest pain Chest pain Disease Active [facility] 5[facility]02 [facility] 00:00: Medical 00 Center R31.2 - R31.2 - Diagnosis Active 2016-03-08 Memoria OTHER OTHER 02-24 08:54:00 l MICROSCOPI MICROSCOPI 00:01: He rmgraham C C 00 HEMATURIA HEMATURIA Active 02/25/2016 OPID Sylva Fever, Fever, Disease Active [facility] unspecifie unspecifie Meri kes d fever d fever Medical cause cause Center ESRD on ESRD on Disease Active [facility] dialysis dialysis [facility] No known No known Disease [facility] active active College problems problems of Medicin e Morbid Morbid Problem Active 2016-03-11 Silas taylor obesity obesity 00:49:31 l (disorder) (disorder) He rmann Active Problem 03/11/2016 OPID Sylva Hyperkalem Hyperkalem Disease Resolve 2020-092022-01-20 2022-01-[address] [facility] ia ia d 0-15 00:00:00 22:47:23 [facility] 00:00: Medical 00 [place] Syncope, Syncope, Disease Resolve 2022-01-20 2022-01-[address] unspecifie unspecifie d 8-11 00:00:00 22:47:44 [facility] d syncope d syncope 00:00: Medi lashaun type type 00 Center Pleural Pleural Disease Resolve 2022-01-20 2022-01-[address] [facility] [address] effusion effusion d 5-17 00:00:00 22:47:47 Meri kes on left on left 00:00: Medical 00 [place] Hypotensio Hypotensio Disease Resolve 2022-01-20 2022-01-[address] [facility] n due to n due to d 00:00:00 22:47:53 Meri kes hypovolemi hypovolemi Me dical a a Center Acute Acute Disease Resolve 2022-01-202022-01-[address] [facility] respirator respirator d 00:00:00 22:47:30 [facility] y y Medical insufficie insufficie Ce nter ncy ncy Acute Acute Disease Resolve 2022-01-20 2022-01-[address] [facility] blood loss blood loss d 00:00:00 22:47:26 [facility] anemia anemia [facility] Thrombocyt Thrombocyt Disease Resolve 2022-01-20 2022-01-[address] [facility] openia openia d 00:00:00 22:47:32 [facility] Hyperglyce Hyperglyce Disease Resolve 2022-01-20 2022-01-[address] [facility] anitha anitha d 00:00:00 22:47:33 [facility] Allergies, Adverse Reactions, Alerts Allergy Allergy Status Severity Reaction(s) Onset Inactive Treating Comm ents Source Name Type Date Date Clinician Bactrim Propensi Active Hives Michelet Ds ty to 3-16 College adverse 00:00: of reaction 00 Medicin s to e drug Sulfa DA Active U 2019- [facility] (Sulfona 0-27 Clear mide 00:00: [place] Antibiot 00 Regiona ics) [facility] Sulfa DA Active U HIVES 2019- [facility] (Sulfona 0-27 Clear mide 00:00: [place] Antibiot 00 Regiona ics) [facility] tetracyc DA Active U 2019-1 [facility] line 0-26 Clear 00:00: [place] 00 [facility] tetracyc DA Active U HIVES 2019-1 [facility] line 0-26 Clear 00:00: Gibson 00 [facility] Sulfamet Propensi Active Dermatitis 2019-0 [facility] hoxazole ty to 528 College -[facility] adverse 00:00: of oprim reaction 00 Medicin s to e drug Tetracyc Propensi Active Dermatitis 2019-0 whelps on [facility] lines & ty to 5 his back College Related adverse 00:00: N/V, of reaction 00 hospitali Medic in s to zed e drug Seasonal Allergy Active Other (See Itchy [facility] Allergie to Comments) 01-03 eyes, [facility] s substanc 00:00: runny Medical e 00 nose Center Sulfa Drug Active Hives [facility] (Sulfona Allergy 01-03 [facility] mide 00:00: Medical Antibiot 00 Center ics) Tetracyc Drug Active Rash 2018- welps [facility] lines Allergy 5-02 [facility] 00:00: Medical 00 Center SEASONAL Allergy Active Low Other 2018- [facility] ALLERGIE 5-02 [facility] S 00:00: Medical 00 Center SULFA Allergy Active High Hives 2018- [facility] (SULFONA 5-02 [facility] MIDE 00:00: Medical ANTIBIOT 00 Center ICS) TETRACYC Allergy Active Low Rash 2018- [facility] LINES 5-02 [facility] 00:00: Medical 00 Center tetracyc tetracyc Active Memori a lines lines l [place] Family History Family Member Diagnosis Comments Start Date Stop Date Source Natural brother Cancer [facility] Natural father Cancer [facility] Natural mother Heart disease [facility] Social History Social Habit Start Date Stop Date Quantity Comments Source History SDOH [facility] Alcohol Std Drinks Medica l Center History SDOH [facility] Alcohol Binge Medical [place] History SDOH [facility] Alcohol Comment Medical C enter History SDNC [facility] Transport Non-Med Medical Center History SDNC [facility] Housing Places Medical Ce nter Lived Exposure to Not sure [facility] e SARS-CoV-2 (event) of Med icine Alcohol intake 2022-07-20 2022-07-20 Current [facility] St Heidi es 00:00:00 00:00:00 non-drinker of Medical Ce nter alcohol (finding) History [facility] 2022-01-20 2022-01-[address] [facility] Transport Med 00:00:00 00:00:[address] History SDNC 2022-01-20 2022-01-[address] [facility] Housing Unable to 00:00:00 00:00:00 Medical Center Pay History [facility] 2022-01-20 2022-01-[address] [facility] Housing Homeless 00:00:00 00:00:00 Medical Center Last Year History SDNC 2022-01-17 2022-01-17 0 [facility] careersmore ge Physical Activity 00:00:00 00:00:00 of Medi cine DPW History [facility] 2022-01-17 2022-01-17 0 [facility] [place] Medical Physical Activity 00:00:00 00:00:00 of Medi cine MPS Tobacco use and 2019-01-03 2019-01-[address] Meri kes exposure 00:00:00 00:00:00 Medical Center History SDOH 2019-01-03 2019-01-[address] [facility] Alcohol Frequency 00:00:00 00:00:00 Medical Center Sex Assigned At [address] Meri chaney 00:00:00 00:00:00 Medical Center Smoking Status Start Date Stop Date Source Social History [facility] Medications Ordered Filled Start Stop Current Ordering Indication Dosage Frequency Signature Comments Components Source Medication Medication Date Date Medication? Clinician (SIG) Name Name Missing or 2021-09 Yes 2.5mg Q.5D Use as [facility] Non-Formula 1-16 directed Luke s ry 15:54: 2.5 mg in Medical Medication 02 the mouth Cent er or throat 2 (two) times daily Eliquis 2.5mg . omega-3 2021-09 Yes 2g Q.5D Take [address] fatty 1-15 by mouth 2 [facility] acids-fish 15:56: (two) Medica l oil 32 times Center 340-1,000 daily . mg Cap per capsule cholecalcif 2021-09 Yes [id number] QD Take [facility] karoline, 1-15 10,000 [facility] vitamin D3, 15:56: Units by Sd dical 5,000 unit 32 mouth Center Tab daily . sevelamer 2021-09 Yes 2400mg Take 2,[address] (RENVELA) 1-15 mg by [facility] 800 mg 15:56: mouth 3 Medical tablet 32 (three) Center times daily with meals . docusate 2021-09 Yes 100mg Q.5D Take [address] sodium 1-15 mg by [facility]ukes (COLACE) 15:56: mouth 2 Medica l 100 MG 32 (two) Center capsule times daily. HYDROcodone 2021-09 Yes 1{tbl} Take [address] -acetaminop 1-15 tablet by Heidi spaulding (NORCO 15:56: mouth 2 Medi lashaun 7.5-325) 32 (two) Center 7.5-325 mg times per tablet daily as needed for Pain. losartan 2021-09 Yes 50mg QD Take [address] (COZAAR) 50 1-15 by mouth Luke s MG tablet 15:56: daily. Medica l 32 Center insulin 2021-09 Yes 30U QD Inject 30 [facility] glargine 1-15 Units [facility]ukes (LANTUS, 15:56: subcutaneo Med ical SEMGLEE) 32 us Center 100 unit/mL nightly injection Use as directed . insulin 2021-[address] [facility] aspart 1-15 subcutaneo Lukes U-100 15:56: usly 3 Medical (NovoLOG) 32 (three) Center 100 unit/mL times (3 mL) InPn daily before meals Per sliding scale. rosuvastati 2021-09 Yes 10mg QD Take [address] [facility] n (CRESTOR) 1-15 by mouth Luke s 10 MG 15:56: daily. Medical tablet [address] [place] [address] gabapentin 2021-09 Yes 300mg Take [address] (NEURONTIN) 1-15 mg by [facility]ukes 300 MG 15:56: mouth 3 Medical capsule 32 (three) Center times daily as needed . aspirin 81 2021-09 Yes 81mg QD Take [address] MG EC 1-15 by mouth [facility] tablet 15:56: daily. Medical Center warfarin 2021-09 Yes 7.5mg Take 7.[address] (COUMADIN, 1-15 mg by [facility]ukes JANTOVEN) 15:56: mouth , Med ical 7.5 MG ,, Haji Center tablet . warfarin 2021-09 Yes 10mg Take [address] (COUMADIN, 1-15 by mouth [facility]ukes JANTOVEN) 15:56: M, W, F, . Me dical [address] [place] [address] tablet midodrine 2021-09 Yes 5mg Take [address] [facility] (PROAMATINE 1-15 by mouth Luke s ) 5 MG 15:56: every Medical tablet 32 Monday, Center Monday, Monday. NIFEdipine 2021-09 Yes 30mg QD Take [address] (ADALAT CC) 1-15 by mouth Luke s 30 MG 24 hr 15:56: daily. Medi lashaun tablet [address] [place] [address] pantoprazol 2021-09 Yes 40mg QD Take [address] [facility] e 1-15 by mouth [facility]ukes (PROTONIX) 15:56: daily. Medic al [address] [place] [address] tablet ranolazine 2021-09 Yes 500mg Q.5D Take [address] (RANEXA) 1-15 mg by [facility] 500 MG 12 15:56: mouth 2 Medic al hr tablet 32 (two) Center times daily. insulin 0 Yes 40U Inject 40 [facility] glargine 9-14 Units into [facility] (LANTUS) 15:44: the skin of 100 UNIT/ML 49 nightly. Medi darci injection e [place]-3 Yes 1mg Take 1 mg [facility] Fatty Acids 9-14 by mouth [facility] eg (OMEGA-3 15:44: daily. of FISH OIL 49 Medicin OR) e gabapentin 0 Yes 300mg Take 300 [facility] (NEURONTIN) 9-14 mg by [place] 300 MG 15:44: mouth 3 of capsule 49 times Medicin daily. e Cholecalcif Yes [id number] Take [place] rad[place] karoline 9-14 50,000 mg [place] (VITAMIN 15:44: by mouth of D3) [id number] 49 daily. Medicin units CAPS e Sevelamer Yes 800mg Take 800 [place] rad[place] Carbonate 9-14 mg by [place] 800 MG TABS 15:44: mouth of 49 daily. Medicin e Polyethylen Yes 17mg Take 17 mg [facility] e Glycol 9-14 by mouth [place] 3350 15:44: daily. of (MIRALAX 49 Medicin OR) e Aspirin 81 0 Yes 81mg Take 81 mg [facility] MG tablet -14 by mouth [facility] e 15:44: once. of 49 Medicin e Cyanocobala Yes Take by [place] radha min (B-12) 9-14 mouth [place] 1000 MCG 15:44: daily. of TABS 49 Medicin e promethazin Yes 25mg Take 25 mg [facility] e 9-14 by mouth [place] (PHENERGAN) 15:44: every 6 of 25 MG 49 hours as Medicin tablet needed. e Fluticasone Yes by Nasal [facility] Propionate 9-14 route. [place] (FLONASE 15:44: of ALLERGY 49 Medicin RELIEF NA) e pantoprazol Yes TAKE 1 [facility] or e 8-31 TABLET BY [place] (PROTONIX) 00:00: MOUTH 1 of 40 MG 00 TIME EACH Medicin tablet DAY BEFORE e BREAKFAST. ACCU-CHEK Yes USE TO [facility] LILLIE PLUS 8-11 CHECK College 00:00: BLOOD of 00 GLUCOSE IN Medicin THE e MORNING, AT NOON AND IN THE EVENING INSTRUCTED Ranolazine 0 Yes 500mg Take 500 [facility] (RANEXA) 7-28 mg by [place] 500 MG TB12 00:00: mouth two o f 00 times Medicin daily. e NIFEdipine 0 Yes [id number] 60mg Take 1 [facility] (ADALAT CC) 7-14 Tablet by Col lege 60 MG CR 00:00: mouth two of tablet 00 times Medicin daily. e insulin 0 Yes 40U Inject 40 [facility] glargine 6-29 Units into [facility] (LANTUS) 15:56: the skin of 100 UNIT/ML 01 nightly. Medi darci injection e [place]-3 Yes 1mg Take 1 mg [facility] Fatty Acids 6-29 by mouth [facility] eg (OMEGA-3 15:56: daily. of FISH OIL Medicin OR) e gabapentin Yes 300mg Take 300 [facility] (NEURONTIN) 6-29 mg by [place] 300 MG 15:56: mouth 3 of capsule 01 times Medicin daily. e Cholecalcif Yes [id number] Take [place] radha karoline 6-29 50,000 mg [place] (VITAMIN 15:56: by mouth of D3) [id number] 01 daily. Medicin units CAPS e Sevelamer Yes 800mg Take 800 [place] rad[place] Carbonate 6-29 mg by [place] 800 MG TABS 15:56: mouth of 01 daily. Medicin e Polyethylen 0 Yes 17mg Take 17 mg [facility] e Glycol 6-29 by mouth [place] 3350 15:56: daily. of (MIRALAX Medicin OR) e Aspirin 81 0 Yes 81mg Take 81 mg [facility] MG tablet 6-29 [facility]: once. of Medicin e Cyanocobala Yes Take by [place] radha min (B-12) 6-29 mouth [place] 1000 MCG 15:56: daily. of TABS Medicin e promethazin Yes 25mg Take 25 mg Michelet e 6-29 by mouth [place] (PHENERGAN) 15:56: every 6 of 25 MG 01 hours as Medicin tablet needed. e Fluticasone 2022-0 Yes by Nasal [facility] Propionate 6-29 route. [place] (FLONASE 15:56: of ALLERGY 01 Medicin RELIEF NA) e NIFEdipine Yes [id number] 60mg Take 1 [facility] (ADALAT CC) 6-20 Tablet by Col lege 60 MG CR 00:00: mouth of tablet 00 daily. Medicin e famotidine Yes 20mg QD Take 1 [facility] (PEPCID) 20 5-21 tablet (20 Meri kes MG tablet 00:00: mg total) Med ical 00 by mouth Center daily. polyethylen 2021- No 17g QD Take [address] e glycol 5-21 05-25 by mouth [facility] (GLYCOLAX) 00:00: 00:00 daily for rCuz martinez 17 gram 00 :00 3 days. Center packet insulin Yes 40U Inject 40 [facility] glargine 5-16 Units into [facility] (LANTUS) 16:17: the skin of 100 UNIT/ML 20 nightly. Medi darci injection e [place]-3 Yes 1mg Take 1 mg [facility] Fatty Acids 5-16 by mouth [facility] ege (OMEGA-3 16:17: daily. of FISH OIL 20 Medicin OR) e gabapentin Yes 300mg Take 300 [facility] (NEURONTIN) 5-16 mg by [place] 300 MG 16:17: mouth 3 of capsule 20 times Medicin daily. e Cholecalcif Yes [id number] Take [place] radha karoline 5-16 50,000 mg [place] (VITAMIN 16:17: by mouth of D3) [id number] 20 daily. Medicin units CAPS e Sevelamer Yes 800mg Take 800 [place] radha Carbonate 5-16 mg by [place] 800 MG TABS 16:17: mouth of 20 daily. Medicin e Polyethylen Yes 17mg Take 17 mg Michelet e Glycol 5-16 by mouth [place] 3350 16:17: daily. of (MIRALAX 20 Medicin OR) e Aspirin 81 0 Yes 81mg Take 81 mg [facility] MG tablet 5-16 by mouth Colleg e 16:17: once. of 20 Medicin e Cyanocobala Yes Take by [place] radha min (B-12) 5-16 mouth College 1000 MCG 16:17: daily. of TABS 20 Medicin e promethazin Yes 25mg Take 25 mg [facility] e 5-16 by mouth [place] (PHENERGAN) 16:17: every 6 of 25 MG 20 hours as Medicin tablet needed. e Fluticasone Yes by Nasal [facility] Propionate 5-16 route. [place] (FLONASE 16:17: of ALLERGY 20 Medicin RELIEF NA) e docusate 2021- No 100mg Take 100 [place] radha sodium 5-16 05-16 mg by [place] (COLACE) 16:17: 00:00 mouth two of 100 MG 19 :00 times Medicin capsule daily. e docusate 2021- No 100mg Take 100 [place] rad[facility] sodium 5-16 05-16 mg by [place] (COLACE) 16:16: 00:00 mouth two of 100 MG 55 :00 times Medicin capsule daily. e sertraline 2021- No 25mg Take 25 mg [facility]he[facility] (ZOLOFT) 25 5-16 05-16 by mouth Col lege MG tablet 16:15: 00:00 daily. of 49 :00 Medicin e NIFEdipine 2021- No [id number] 30mg Take 1 [facility] (ADALAT CC) 5-05 05-16 Tablet by Co llege 30 MG CR 00:00: 00:00 mouth of tablet 00 :00 daily. Medicin e warfarin Yes [id number] Take one [facility] (COUMADIN) 3-17 tablet by Avelino ege 7.5 MG 00:00: mouth of tablet 00 daily or Medicin as e directed by physician warfarin 2021- Yes [id number] Take one [facility] (COUMADIN) 3-17 tablet by Avelino ege 7.5 MG 00:00: mouth of tablet 00 daily or Medicin as e directed by physician warfarin 2021-0 Yes [id number] Take one [facility] (COUMADIN) 3-17 tablet by Avelino ege 7.5 MG 00:00: mouth of tablet 00 daily or Medicin as e directed by physician sertraline Yes 25mg Take 25 mg [facility] (ZOLOFT) 25 2-15 by mouth Avelino ege MG tablet 09:52: daily. of 04 Medicin e insulin 2022-0 Yes 40U Inject 40 [facility] glargine 2-15 Units into [facility] ge (LANTUS) 09:46: the skin of 100 UNIT/ML 56 nightly. Medi darci injection e [place]-3 0 Yes 1mg Take 1 mg [facility] Fatty Acids 2-15 by mouth [facility] (OMEGA-3 09:46: daily. of FISH OIL 56 Medicin OR) e gabapentin 0 Yes 300mg Take 300 [facility] (NEURONTIN) 2-15 mg by [place] 300 MG 09:46: mouth 3 of capsule 56 times Medicin daily. e Cholecalcif 0 Yes [id number] Take [place] radha karoline 2-15 50,000 mg [place] (VITAMIN 09:46: by mouth of D3) [id number] 56 daily. Medicin units CAPS e Sevelamer 0 Yes 800mg Take 800 [place] rad[place] Carbonate 2-15 mg by [place] 800 MG TABS 09:46: mouth of 56 daily. Medicin e Polyethylen 0 Yes 17mg Take 17 mg [facility] e Glycol 2-15 by mouth [place] 3350 09:46: daily. of (MIRALAX 56 Medicin OR) e docusate 0 Yes 100mg Take 100 [facility] sodium 2-15 mg by [place] (COLACE) 09:46: mouth two of 100 MG 56 times Medicin capsule daily. e Aspirin 81 0 Yes 81mg Take 81 mg [facility] MG tablet 2-15 [facility] 09:[facility]: once. of 56 Medicin e Cyanocobala 0 Yes Take by [place] radha min (B-12) 2-15 mouth [place] 1000 MCG 09:46: daily. of TABS 56 Medicin e promethazin 0 Yes 25mg Take 25 mg Michelet e 2-15 by mouth [place] (PHENERGAN) 09:46: every 6 of 25 MG 56 hours as Medicin tablet needed. e Fluticasone 0 Yes by Nasal [facility] Propionate 2-15 route. [place] (FLONASE 09:46: of ALLERGY 56 Medicin RELIEF NA) e warfarin 2021-0 Yes [id number] 5mg Take 1 [facility] (COUMADIN) 2-[address] [facility] 5 MG tablet 00:00: mouth of 00 daily. Medicin e Ranolazine 2021-0 Yes 500mg Take 500 [facility] (RANEXA) 2-15 mg by [place] 500 MG TB12 00:00: mouth two o f 00 times Medicin daily. e warfarin 2021-0 Yes [id number] 5mg Take 1 [facility] (COUMADIN) 2-15 Tablet by Avelino ege 5 MG tablet 00:00: mouth of 00 daily. Medicin e Ranolazine 2021-0 Yes 500mg Take 500 [facility] (RANEXA) 2-15 mg by [place] 500 MG TB12 00:00: mouth two o f 00 times Medicin daily. e warfarin 2021-0 Yes [id number] 5mg Take 1 [facility] (COUMADIN) 2-15 Tablet by Avelino ege 5 MG tablet 00:00: mouth of 00 daily. Medicin e Ranolazine 2021-0 Yes 500mg Take 500 [facility] (RANEXA) 2-15 mg by [place] 500 MG TB 00:00: mouth two o f 00 times Medicin daily. e warfarin 0 Yes [id number] 5mg Take 1 [facility] (COUMADIN) 2-15 Tablet by Avelino ege 5 MG tablet 00:00: mouth of 00 daily. Medicin e Ranolazine 0 2021- No 500mg Take 500 [facility] (RANEXA) 2-15 02-15 mg by [place] 500 MG TB12 00:00: 00:00 mouth two of 00 :00 times Medicin daily. e rosuvastati 2020-09- No 10mg Take 10 mg Michelet n (CRESTOR) 10-06 by mouth Col lege 10 MG 12:36: 00:00 daily. of tablet 59 :00 Medicin e carvedilol 2020-09- No 25mg Take 25 mg Miche[facility] (COREG) 25 10-06 by mouth 2 Co llege MG tablet 12:36: 00:00 times of 59 :00 daily Medicin (with e meals). isosorbide 2020-09- No 60mg Take 60 mg [facility] mononitrate 10-06 by mouth Col lege (IMDUR) 60 12:36: 00:00 every of MG CR 59 :00 morning. Medicin tablet e Fluticasone 2020-09 Yes by Nasal [facility] Propionate 2-02 route. [place] (FLONASE 12:05: of ALLERGY 57 Medicin RELIEF NA) e Polyethylen 2020-09 Yes 17mg Take 17 mg Michelet e Glycol 2-02 by mouth [place] 3350 12:05: daily. of (MIRALAX 07 Medicin OR) e Aspirin 81 2020-09 Yes 81mg Take 81 mg [facility] MG tablet 2-02 by mouth Colleg e 12:05: once. of 07 Medicin e Cyanocobala 2020-09 Yes Take by [place] radha min (B-12) 2- mouth [place] 1000 MCG 12:05: daily. of TABS 07 Medicin e promethazin 2020-09 Yes 25mg Take 25 mg [facility] e 2- by mouth [place] (PHENERGAN) 12:05: every 6 of 25 MG 07 hours as Medicin tablet needed. e fexofenadin 2020-09- No 180mg Take 180 Michelet e (JULISSA) 10-06 1202 mg by [facility] e 180 MG 12:04: 00:00 mouth. of tablet 47 :00 Medicin e montelukast 2020-09- No 10mg Take 10 mg Mic[facility]let (SINGULAIR) 2- 12-02 by mouth Col lege 10 MG 12:04: 00:00 daily. of tablet 41 :00 Medicin e insulin 2020-09 Yes 40U Inject 40 [facility] glargine 2-02 Units into [facility] (LANTUS) 12:01: the skin of 100 UNIT/ML 38 nightly. Medi darci injection e [place]-3 2020-09 Yes 1mg Take 1 mg [facility] Fatty Acids 2-02 by mouth [facility]ino ege (OMEGA-3 12:01: daily. of FISH OIL 38 Medicin OR) e gabapentin 2020-09 Yes 300mg Take 300 [facility] (NEURONTIN) 2-02 mg by [place] 300 MG 12:01: mouth 3 of capsule 38 times Medicin daily. e Cholecalcif 2020-09 Yes [id number] Take [place] radha karoline 2- 50,000 mg [place] (VITAMIN 12:01: by mouth of D3) [id number] 38 daily. Medicin units CAPS e Sevelamer 2020-09 Yes 800mg Take 800 [place] rad[place] Carbonate 2-02 mg by [place] 800 MG TABS 12:01: mouth of 38 daily. Medicin e docusate 2020-09 Yes 100mg Take 100 [facility] sodium 2-02 mg by [place] (COLACE) 12:01: mouth two of 100 MG 38 times Medicin capsule daily. e hydrocodone 2020-09- No 15mL Take 15 mL [facility] -acetaminop 2-02 1202 by mouth 4 C olanabella hen (HYCET) 12:01: 00:00 times of 7.5-325 21 :00 daily as Medicin MG/15ML needed. e solution carvedilol 2020-09 Yes [id number] 25mg Take 1 [facility] (COREG) 25 2-02 Tablet by Avelino ege MG tablet 00:00: mouth 2 of 00 times Medicin daily e (with meals). isosorbide 2020-09 Yes [id number] 60mg Take 1 [facility] mononitrate 2-02 Tablet by Col lege (IMDUR) 60 00:00: mouth of MG CR 00 every Medicin tablet morning. e losartan 2020-09 Yes [id number] 50mg Take 1 [facility] (COZAAR) 50 2-02 Tablet by Col lege MG tablet 00:00: mouth of 00 daily. Medicin e rosuvastati 2020-09 Yes [id number] 10mg Take 1 [facility] n (CRESTOR) 2-02 Tablet by Col lege 10 MG 00:00: mouth of tablet 00 daily. Medicin e warfarin 2020-09 Yes [id number] 5mg Take 1 [facility] (COUMADIN) 2-02 Tablet by [place] ege 5 MG tablet 00:00: mouth of 00 daily. Medicin e warfarin 2020-09 Yes [id number] Take one [facility] (COUMADIN) 2-02 tablet by [place] ege 7.5 MG 00:00: mouth of tablet 00 daily or Medicin as e directed by physician carvedilol 2020-09 Yes [id number] 25mg Take 1 [facility] (COREG) 25 2-02 Tablet by [facility] e[facility] MG tablet 00:00: mouth 2 of 00 times Medicin daily e (with meals). isosorbide 2020-09 Yes [id number] 60mg Take 1 [facility] mononitrate 2-02 Tablet by [facility] (IMDUR) 60 00:00: mouth of MG CR 00 every Medicin tablet morning. e losartan 2020-09 Yes [id number] 50mg Take 1 [facility] (COZAAR) 50 2-02 Tablet by [facility] MG tablet 00:00: mouth of 00 daily. Medicin e rosuvastati 2020-09 Yes [id number] 10mg Take 1 [facility] n (CRESTOR) 2-02 Tablet by [facility] 10 MG 00:00: mouth of tablet 00 daily. Medicin e warfarin 2020-09 Yes [id number] Take one [facility] (COUMADIN) 2-02 tablet by [facility] ege 7.5 MG 00:00: mouth of tablet 00 daily or Medicin as e directed by physician carvedilol 2020-09 Yes [id number] 25mg Take 1 [facility] (COREG) 25 2-02 Tablet by [facility] e[facility] MG tablet 00:00: mouth 2 of 00 times Medicin daily e (with meals). isosorbide 2020-09 Yes [id number] 60mg Take 1 [facility] mononitrate 2-02 Tablet by [facility] (IMDUR) 60 00:00: mouth of MG CR 00 every Medicin tablet morning. e losartan 2020-09 Yes [id number] 50mg Take 1 [facility] (COZAAR) 50 2-02 Tablet by [facility] MG tablet 00:00: mouth of 00 daily. Medicin e rosuvastati 2020-09 Yes [id number] 10mg Take 1 [facility] n (CRESTOR) 2-02 Tablet by [facility] 10 MG 00:00: mouth of tablet 00 daily. Medicin e carvedilol 2020-09 Yes [id number] 25mg Take 1 [facility] (COREG) 25 2-02 Tablet by [facility] e[facility] MG tablet 00:00: mouth 2 of 00 times Medicin daily e (with meals). isosorbide 2020-09 Yes [id number] 60mg Take 1 [facility] mononitrate 2-02 Tablet by [facility] (IMDUR) 60 00:00: mouth of MG CR 00 every Medicin tablet morning. e losartan 2020-09 Yes [id number] 50mg Take 1 [facility] (COZAAR) 50 2-02 Tablet by [facility] MG tablet 00:00: mouth of 00 daily. Medicin e rosuvastati 2020-09 Yes [id number] 10mg Take 1 [facility] n (CRESTOR) 2-02 Tablet by [facility] 10 MG 00:00: mouth of tablet 00 daily. Medicin e carvedilol 2020-09 Yes [id number] 25mg Take 1 [facility] (COREG) 25 2-02 Tablet by [facility] e[facility] MG tablet 00:00: mouth 2 of 00 times Medicin daily e (with meals). isosorbide 2020-09 Yes [id number] 60mg Take 1 [facility] mononitrate 2-02 Tablet by [facility] (IMDUR) 60 00:00: mouth of MG CR 00 every Medicin tablet morning. e losartan 2020-09 Yes [id number] 50mg Take 1 [facility] (COZAAR) 50 2-02 Tablet by [facility] MG tablet 00:00: mouth of 00 daily. Medicin e rosuvastati 2020-09 Yes [id number] 10mg Take 1 [facility] n (CRESTOR) 2-02 Tablet by [facility] 10 MG 00:00: mouth of tablet 00 daily. Medicin e warfarin 2020-09- No [id number] 5mg Take 1 [facility] (COUMADIN) 2-02 02-15 Tablet by [facility] 5 MG tablet 00:00: 00:00 mouth of 00 :00 daily. Medicin e hydrocodone 2020-09 Yes [facility] -acetaminop 1-09 [place] [facility] (KIMBALL) 00:00: of 7.5-325 MG 00 Medicin per tablet e hydrocodone 2020-09 Yes [facility] -acetaminop 1-09 [place] [facility] (Scoot & DoodleAR) 00:00: of 7.5-325 MG 00 Medicin per tablet e hydrocodone 2020-09 Yes [facility] -acetaminop 1-09 [place] [facility] (LendAmend) 00:00: of 7.5-325 MG 00 Medicin per tablet e hydrocodone 2020-09 Yes [facility] -acetaminop 1-09 [place] [facility] (Scoot & DoodleAR) 00:00: of 7.5-325 MG 00 Medicin per tablet e hydrocodone 2020-09 Yes [facility] -acetaminop 1-09 [place] [facility] (Scoot & DoodleAR) 00:00: of 7.5-325 MG 00 Medicin per tablet e carvediloL 2020-09 Yes 25mg Take 1 [facility] ([facility] 25 0-15 tablet (25 Heidi es MG tablet 00:00: mg total) Med ical 00 by mouth 2 Center (two) times daily with breakfast and dinner. isosorbide 2020-09 Yes 60mg QD Take 1 [facility] mononitrate 0-15 tablet (60 Meri kes (IMDUR) 60 00:00: mg total) Me dical MG 24 hr 00 by mouth Center tablet daily. losartan 2020- No [id number] 100mg Take 1 [facility] (COZAAR) 06-03 Tablet by [facility]le [facility] 100 MG 00:00: 00:00 mouth of tablet 00 :00 daily. Medicin e warfarin 2020- No [id number] 5mg Take 1 [facility] (COUMADIN) 04-02 Tablet by [facility] 5 MG tablet 00:00: 00:00 mouth of 00 :00 daily. Medicin e Enoxaparin 2020- No [id number] Inject [facility] Sodium 03-03 once every Colleg e (LOVENOX) 00:00: 00:00 12 hours of 120 00 :00 subcutaneo Medicin MG/0.8ML usly for 3 N days while off warfarin for planned procedure. metoprolol 2020- No 25mg Take 25 mg [facility] (TOPROL-XL) 4-15 04-15 by mouth [facility] 25 MG XL 18:10: 00:00 daily. of tablet 12 :00 Medicin e insulin Yes 40U Inject 40 [facility] glargine 4-15 Units into [facility]le [facility] (LANTUS) 17:24: the skin of 100 UNIT/ML 39 nightly. Medi darci injection e [place]-3 Yes 1mg Take 1 mg [facility] Fatty Acids 4-15 by mouth [facility] e[facility] (OMEGA-3 17:24: daily. of FISH OIL 39 Medicin OR) e montelukast Yes 10mg Take 10 mg [facility] (SINGULAIR) 4-15 by mouth [facility] 10 MG 17:24: daily. of tablet 39 Medicin e gabapentin Yes 300mg Take 300 [facility] (NEURONTIN) 4-15 mg by [place] 300 MG 17:24: mouth 3 of capsule 39 times Medicin daily. e Cholecalcif Yes [id number] Take [place] [facility] karoline 4-15 50,000 mg [place] (VITAMIN 17:24: by mouth of D3) [id number] 39 daily. Medicin units CAPS e Sevelamer Yes 800mg Take 800 [place] [facility] Carbonate 4-15 mg by [facility] 800 MG TABS 17:24: mouth of 39 daily. Medicin e Polyethylen Yes 17mg Take 17 mg [facility] e Glycol 4-15 by mouth [facility] 3350 17:24: daily. of (MIRALAX 39 Medicin OR) e hydrocodone Yes 15mL Take 15 mL [facility] -acetaminop 4-15 by mouth 4 [facility] hen (HYCET) 17:24: times of 7.5-325 39 daily as Medicin MG/15ML needed. e solution fexofenadin Yes 180mg Take 180 [facility] (JULISSA) 4-15 mg by [facility] 180 MG 17:24: mouth. of tablet 39 Medicin e rosuvastati Yes 10mg Take 10 mg [facility] n (CRESTOR) 4-15 by mouth [facility] 10 MG 17:24: daily. of tablet 39 Medicin e insulin Yes 40U Inject 40 [facility] glargine 4-15 Units into [facility]le [facility] (LANTUS) 17:24: the skin of 100 UNIT/ML 39 nightly. Medi darci injection e [place]-3 Yes 1mg Take 1 mg [facility] Fatty Acids 4-15 by mouth [facility] (OMEGA-3 17:24: daily. of FISH OIL 39 Medicin OR) e montelukast Yes 10mg Take 10 mg [facility] (SINGULAIR) 4-15 by mouth [facility] e[facility] 10 MG 17:24: daily. of tablet 39 Medicin e gabapentin Yes 300mg Take 300 [facility] (NEURONTIN) 4-15 mg by [place] 300 MG 17:24: mouth 3 of capsule 39 times Medicin daily. e Cholecalcif Yes [id number] Take [place] [facility] karoline 4-15 50,000 mg [place] (VITAMIN 17:24: by mouth of D3) [id number] 39 daily. Medicin units CAPS e Sevelamer Yes 800mg Take 800 [place] [facility] Carbonate 4-15 mg by [place] 800 MG TABS 17:24: mouth of 39 daily. Medicin e Polyethylen Yes 17mg Take 17 mg [facility] e Glycol 4-15 by mouth [place] 3350 17:24: daily. of (MIRALAX 39 Medicin OR) e hydrocodone Yes 15mL Take 15 mL [facility] -acetaminop 4-15 by mouth 4 [facility] hen (HYCET) 17:24: times of 7.5-325 39 daily as Medicin MG/15ML needed. e solution fexofenadin Yes 180mg Take 180 [facility] (JULISSA) 4-15 mg by [place] 180 MG 17:24: mouth. of tablet 39 Medicin e rosuvastati Yes 10mg Take 10 mg [facility] n (CRESTOR) 4-15 by mouth [facility] 10 MG 17:24: daily. of tablet 39 Medicin e docusate Yes 100mg Take 100 [facility] sodium 4-15 mg by [place] (COLACE) 17:24: mouth two of 100 MG 39 times Medicin capsule daily. e Aspirin 81 Yes 81mg Take 81 mg [facility] MG tablet 4-15 by mouth [facility] e 17:24: once. of 39 Medicin e Cyanocobala Yes Take by [place] [facility] min (B-12) 4-15 mouth [place] 1000 MCG 17:24: daily. of TABS 39 Medicin e promethazin Yes 25mg Take 25 mg [facility] e 4-15 by mouth [place] (PHENERGAN) 17:24: every 6 of 25 MG 39 hours as Medicin tablet needed. e metoprolol Yes [id number] 25mg Take 1 [facility] (TOPROL-XL) 4-15 Tablet by [facility] leg 25 MG XL 00:00: mouth of tablet 00 daily. Medicin e Ranolazine Yes [id number] 500mg Take 500 [facility] (RANEXA) 4-15 mg by [place] 500 MG TB12 00:00: mouth two o f 00 times Medicin daily. e insulin 2019-09 Yes 40U Inject 40 [facility] glargine 0-20 Units into [facility]le [facility] (LANTUS) 18:55: the skin of 100 UNIT/ML 09 nightly. Medi darci injection e [place]-3 2019-09 Yes 1mg Take 1 mg [facility] Fatty Acids 0-20 by mouth [facility] e[facility] (OMEGA-3 18:55: daily. of FISH OIL 09 Medicin OR) e montelukast 2019-09 Yes 10mg Take 10 mg [facility] (SINGULAIR) 0-20 by mouth [facility] 10 MG 18:55: daily. of tablet 09 Medicin e gabapentin 2019-09 Yes 300mg Take 300 [facility] (NEURONTIN) 0-20 mg by [place] 300 MG 18:55: mouth 3 of capsule 09 times Medicin daily. e Cholecalcif 2019-09 Yes [id number] Take [place] [facility] karoline 0-20 50,000 mg [place] (VITAMIN 18:55: by mouth of D3) [id number] 09 daily. Medicin units CAPS e Sevelamer 2019-09 Yes 800mg Take 800 [place] [facility] Carbonate 0-20 mg by [place] 800 MG TABS 18:55: mouth of 09 daily. Medicin e Polyethylen 2019-09 Yes 17mg Take 17 mg [facility] e Glycol 0-20 by mouth [place] 3350 18:55: daily. of (MIRALAX 09 Medicin OR) e hydrocodone 2019-09 Yes 15mL Take 15 mL [facility] -acetaminop 0-20 by mouth 4 [facility] (HYCET) 18:55: times of 7.5-325 09 daily as Medicin MG/15ML needed. e solution fexofenadin 2019-09 Yes 180mg Take 180 [facility] (JULISSA) 0-20 mg by [place] 180 MG 18:55: mouth. of tablet 09 Medicin e rosuvastati 2019-09 Yes 10mg Take 10 mg [facility] n (CRESTOR) 0-20 by mouth [facility] e[facility] 10 MG 18:55: daily. of tablet 09 Medicin e midodrine 2019-09 Yes [id number] Take 1 [facility] (PROAMATINE 0-20 tablet by [facility] ) 5 MG 00:00: mouth of tablet 00 before Medicin dialysis. e You may take an additional dose in the evenings (total twice a day) also. midodrine 2019-09 Yes [id number] Take 1 [facility] (PROAMATINE 0-20 tablet by [facility] ) 5 MG 00:00: mouth of tablet 00 before Medicin dialysis. e You may take an additional dose in the evenings (total twice a day) also. midodrine 2019-09 Yes [id number] Take 1 [facility] (PROAMATINE 0-20 tablet by [facility] ) 5 MG 00:00: mouth of tablet 00 before Medicin dialysis. e You may take an additional dose in the evenings (total twice a day) also. midodrine 2019-09 Yes [id number] Take 1 [facility] (PROAMATINE 0-20 tablet by [facility] ) 5 MG 00:00: mouth of tablet 00 before Medicin dialysis. e You may take an additional dose in the evenings (total twice a day) also. midodrine 2019-09 Yes [id number] Take 1 [facility] (PROAMATINE 0-20 tablet by [facility] ) 5 MG 00:00: mouth of tablet 00 before Medicin dialysis. e You may take an additional dose in the evenings (total twice a day) also. warfarin 2019- Yes [id number] Take one [facility] (COUMADIN) 6-12 tablet by [facility] ege 7.5 MG 00:00: mouth of tablet 00 daily or Medicin as e directed by physician warfarin 2020-0 Yes [id number] Take one [facility] (COUMADIN) 6-12 tablet by [facility] ege 7.5 MG 00:00: mouth of tablet 00 daily or Medicin as e directed by physician warfarin 2020-0 Yes [id number] Take one [facility] (COUMADIN) 6-12 tablet by [facility] ege 7.5 MG 00:00: mouth of tablet 00 daily or Medicin as e directed by physician warfarin 2020-0 2020- No [id number] Take one [facility] (COUMADIN) 6-12 12-02 tablet by [facility] 7.5 MG 00:00: 00:00 mouth of tablet 00 :00 daily or Medicin as e directed by physician rosuvastati 2019- Yes 10mg Take 10 mg [facility] n (CRESTOR) 5-28 by mouth [facility] e[facility] 10 MG 19:20: daily. of tablet 22 Medicin e insulin 2019-0 Yes 40U Inject 40 [facility] glargine 5-28 Units into [facility]le [facility] (LANTUS) 16:02: the skin of 100 UNIT/ML 32 nightly. Medi darci injection e montelukast 2020-0 Yes 10mg Take 10 mg [facility] (SINGULAIR) 5-28 by mouth [facility] 10 MG 16:02: daily. of tablet 32 Medicin e gabapentin 2020-0 Yes 300mg Take 300 [facility] (NEURONTIN) 5-28 mg by [facility] 300 MG 16:02: mouth 3 of capsule [...] pantoprazol 2020-0 Yes 40mg Take 40 mg [facility] e 5-28 by mouth College (PROTONIX) 16:02: daily. of 40 MG 32 Medicin tablet e pantoprazol 2020-0 Yes 40mg Take 40 mg [facility] e 5-28 by mouth [facility] (PROTONIX) 16:02: daily. of 40 MG 32 Medicin tablet e pantoprazol 2020-0 Yes 40mg Take 40 mg [facility] e 5-28 by mouth [facility] (PROTONIX) 16:02: daily. of 40 MG 32 Medicin tablet e pantoprazol 2020-0 Yes 40mg Take 40 mg [facility] e 5-28 by mouth [facility] (PROTONIX) 11:02: daily. of 40 MG 32 Medicin tablet e pantoprazol 2020-0 Yes 40mg Take 40 mg [facility] e 5-28 by mouth [facility] (PROTONIX) 11:02: daily. of 40 MG 32 Medicin tablet e warfarin 2020-0 Yes [id number] 5mg Take 1 Tab [facility] (COUMADIN) 5-28 07 by mouth [facility] 5 MG tablet 00:00: daily. of 00 Medicin e warfarin 2020-0 Yes [id number] 5mg Take 1 Tab [facility] (COUMADIN) 5-28 by mouth [facility] 5 MG tablet 00:00: daily. of 00 Medicin e warfarin 2020-0 Yes [id number] 5mg Take 1 Tab [facility] (COUMADIN) 5-28 by mouth [facility] 5 MG tablet 00:00: daily. of Medicin e warfarin 2020-0 Yes [id number] 5mg Take 1 Tab [facility] (COUMADIN) 5-28 by mouth [facility] 5 MG tablet 00:00: daily. of Medicin e amoxicillin 2020-0 2020- No [id number] 1{tbl} Take 1 Tab [facility] -clavulanat 5-28 06-03 by mouth [facility] e 00:00: 04:59 every 8 of (AUGMENTIN) 00 :00 hours for Med icin 500-125 MG 5 days. e per tablet BD INSULIN 2020-0 Yes [facility] SYRINGE U/F [address] [place] [address] 30G X 1/2" 00:00: of 0.5 ML MISC 00 Medicin e BD INSULIN 2020-0 Yes [facility] SYRINGE U/F [address] [place] [address] 30G X 1/2" 00:00: of 0.5 ML MISC 00 Medicin e BD INSULIN 2020-0 Yes [facility] [address] [place] [address] 30G X 1/2" 00:00: of 0.5 ML MISC 00 Medicin e BD INSULIN 2020-0 Yes [facility] SYRINGE U/F [address] [place] [address] 30G X 1/2" 00:00: of 0.5 ML MISC 00 Medicin e BD INSULIN 2020-0 Yes [facility] SYRINGE U/F [address] [place] [address] 30G X 1/2" 00:00: of 0.5 ML MISC 00 Medicin e BD INSULIN 2020-0 Yes [facility] SYRINGE U/F [address] [place] [address] 30G X 1/2" 00:00: of 0.5 ML MISC 00 Medicin e BD INSULIN 2020-0 Yes [facility] SYRINGE U/F [address] [place] [address] 30G X 1/2" 00:00: of 0.5 ML MISC 00 Medicin e BD INSULIN 2020-0 Yes [facility] SYRINGE U/F [address] [place] [address] 30G X 1/2" 00:00: of 0.5 ML MISC 00 Medicin e BD INSULIN 2020-0 Yes [facility] SYRINGE U/F [address] [place] [address] 30G X 1/2" 00:00: of 0.5 ML MISC 00 Medicin e B 2020-0 Yes TAKE 1 [facility] Complex-C-F 3-26 TABLET BY [facility] olic Acid 00:00: MOUTH ONCE of (CARMEN-MARJORIE) 00 DAILY Medicin TABS e B 2020-0 Yes TAKE 1 [facility] Complex-C-F 3-26 TABLET BY [facility] olic Acid 00:00: MOUTH ONCE of (CARMEN-MARJORIE) 00 DAILY Medicin TABS e B 2019-0 Yes TAKE 1 [facility] Complex-C-F 3-26 TABLET BY [facility] olic Acid 00:00: MOUTH ONCE of (CARMEN-MARJORIE) 00 DAILY Medicin TABS e B 2019-0 Yes TAKE 1 [facility] Complex-C-F 3-26 TABLET BY [facility] olic Acid 00:00: MOUTH ONCE of (CARMEN-MARJORIE) 00 DAILY Medicin TABS e B 2019-0 Yes TAKE 1 [facility] Complex-C-F 3-26 TABLET BY [facility] olic Acid 00:00: MOUTH ONCE of (CARMEN-MARJORIE) 00 DAILY Medicin TABS e B 2019-0 Yes TAKE 1 [facility] Complex-C-F 3-26 TABLET BY [facility] olic Acid 00:00: MOUTH ONCE of (CARMEN-MARJORIE) 00 DAILY Medicin TABS e B 2019-0 Yes TAKE 1 [facility] Complex-C-F 3-26 TABLET BY [facility] olic [...] 00 Medicin e NOVOLOG 100 2020-0 Yes [facility] UNIT/ML 3-25 College injection 00:00: of 00 Medicin e NOVOLOG 100 2020-0 Yes [facility] UNIT/ML 3-25 [facility] injection 00:00: of 00 Medicin e NOVOLOG 100 2020-0 Yes [facility] UNIT/ML 3-25 College injection 00:00: of 00 Medicin e NOVOLOG 100 2020-0 Yes [facility] UNIT/ML 3-25 [facility] injection 00:00: of 00 Medicin e NOVOLOG 100 2020-0 Yes [facility] UNIT/ML 3-25 College injection 00:00: of 00 Medicin e NOVOLOG 100 2020-0 Yes [facility] UNIT/ML 3-25 College injection 00:00: of 00 Medicin e NOVOLOG 100 2020-0 Yes [facility] UNIT/ML 3-25 College injection 00:00: of 00 Medicin e NOVOLOG 100 2020-0 Yes [facility] UNIT/ML 3-25 College injection 00:00: of 00 Medicin e midodrine 2019-0 2020- No TAKE 2 [facility] (PROAMATINE 3 05-28 TABLETS BY Mae flanagan ) 5 MG 00:00: 00:00 MOUTH 30 of tablet 00 :00 MINS PRIOR Medicin TO e HEMODIALYS IS aspirin EC 2019-2020- No 81mg Take 81 mg [facility] 81 MG 11-06-06 by mouth. College tablet 00:00: 05:59 of 00 :00 Medicin e aspirin EC 2019-2020- No 81mg Take 81 mg [facility] 81 MG 11-06-06 by mouth. College tablet 00:00: 05:59 of 00 :00 Medicin e atorvastati 2019-0 2020- No 40mg Take 40 mg [facility] n (LIPITOR) - 05-28 by mouth. Co llege 40 MG 00:00: 00:00 of tablet 00 :00 Medicin e metoprolol 2020- No 12.5mg Take 12.5 [facility] (LOPRESSOR) 3- 05-28 mg by Colleg [facility] 25 MG 00:00: 00:00 mouth two of tablet 00 :00 times Medicin daily. e lidocaine-p 2020-0 Yes APPLY A [place] [facility] rilocaine 3- [facility] 00:00: AMOUNT TO of 2.5-2.5 % 00 SKIN THREE Medi darci cream TIMES A e WEEK lidocaine-p 2020-0 Yes APPLY A [place] [facility] rilocaine 3- [facility] ([facility]) 00:00: AMOUNT TO of 2.5-2.5 % 00 SKIN THREE Medi darci cream TIMES A e WEEK lidocaine-p 2020-0 Yes APPLY A [place] [facility] rilocaine 3-02 [facility] ([facility] 00:00: AMOUNT TO of 2.5-2.5 % 00 SKIN THREE Medi darci cream TIMES A e WEEK lidocaine-p 2020-0 Yes APPLY A [place] [facility] rilocaine 3-02 [facility] ([facility] 00:00: AMOUNT TO of 2.5-2.5 % 00 SKIN THREE Medi darci cream TIMES A e WEEK lidocaine-p 2020-0 Yes APPLY A [place] [facility] rilocaine 3-02 [facility] ([facility] 00:00: AMOUNT TO of 2.5-2.5 % 00 SKIN THREE Medi darci cream TIMES A e WEEK lidocaine-p 2020-0 Yes APPLY A [place] [facility] rilocaine 3-02 [facility] ([facility] 00:00: AMOUNT TO of 2.5-2.5 % 00 SKIN THREE Medi darci cream TIMES A e WEEK lidocaine-p 2020-0 Yes APPLY A [place] [facility] rilocaine 3- [facility] ([facility]) 00:00: AMOUNT TO of 2.5-2.5 % 00 SKIN THREE Medi darci cream TIMES A e WEEK lidocaine-p 2020-0 Yes APPLY A [place] [facility] rilocaine 3-02 [facility] ([facility]) 00:00: AMOUNT TO of 2.5-2.5 % 00 SKIN THREE Medi darci cream TIMES A e WEEK lidocaine-p 2020-0 Yes APPLY A [place] [facility] rilocaine 3-02 [facility] ([facility]) 00:00: AMOUNT TO of 2.5-2.5 % 00 SKIN THREE Medi darci cream TIMES A e WEEK Cholecalcif 2019-0 2020- No Take by Ender ramey 09-17 mouth. [place] (VITAMIN 17:51: 00:00 of D3) 5000 10 :00 Medicin units TABS e clopidogrel 2020-0 2020- No 75mg Take 75 mg [facility] (PLAVIX) 75 -09-17 by mouth [facility] MG tablet 17:50: 00:00 daily. of 00 :00 Medicin e Apixaban 2020-0 Yes 2.5mg Take 2.5 [facility] (ELIQUIS) 1-14 mg by [facility] 2.5 MG TABS 17:04: mouth of 14 daily. Medicin e [place]-3 2020-0 Yes 1mg Take 1 mg [facility] Fatty Acids 1-14 by mouth [facility] (OMEGA-3 17:04: daily. of FISH OIL 14 Medicin OR) e Cholecalcif 2020-0 Yes [id number] Take [place] [facility] karoline 1-14 50,000 mg [place] (VITAMIN 17:04: by mouth of D3) [id number] 14 daily. Medicin units CAPS e Sevelamer 2020-0 Yes 800mg Take 800 [place] [facility] Carbonate 1-14 mg by [place] 800 MG TABS 17:04: mouth of 14 daily. Medicin e docusate 2020-0 Yes 100mg Take 100 [facility] sodium 1-14 mg by [place] (COLACE) 17:04: mouth two of 100 MG 14 times Medicin capsule daily. e linaCLOtide 2020-0 Yes 72mg Take 72 mg [facility] (LINZESS) 1-14 by mouth [facility] 72 MCG CAPS 17:04: daily. of 14 Medicin e baclofen 2020-0 Yes 10mg Take 10 mg [place] [facility] (LIORESAL) 1-14 by mouth 3 [facility] 10 MG 17:04: times of tablet 14 daily. Medicin e hydrocodone 2020-0 Yes 15mL Take 15 mL [facility] -acetaminop 1-14 by mouth 4 [facility] hen (HYCET) 17:04: times of 7.5-325 14 daily as Medicin MG/15ML needed. e solution Melatonin 3 2020-0 Yes 3mg Take 3 mg [facility] MG TABS 1-14 by mouth [place] 17:04: nightly. of 14 Medicin e docusate 2020-0 Yes 100mg Take 100 [facility] sodium 1-14 mg by [place] (COLACE) 17:04: mouth two of 100 MG 14 times Medicin capsule daily. e linaCLOtide 2020-0 Yes 72mg Take 72 mg [facility] (LINZESS) 1-14 by mouth [facility] 72 MCG CAPS 17:04: daily. of 14 Medicin e baclofen 2020-0 Yes 10mg Take 10 mg [place] [facility] (LIORESAL) 1-14 by mouth 3 [facility] 10 MG 17:04: times of tablet 14 daily. Medicin e Melatonin 3 2020-0 Yes 3mg Take 3 mg [facility] MG TABS 1-14 by mouth [place] 17:04: nightly. of 14 Medicin e docusate 2020-0 Yes 100mg Take 100 [facility] sodium 1-14 mg by [place] (COLACE) 17:04: mouth two of 100 MG 14 times Medicin capsule daily. e linaCLOtide 2020-0 Yes 72mg Take 72 mg [facility] (LINZESS) 1-14 by mouth [facility] e 72 MCG CAPS 17:04: daily. of 14 Medicin e baclofen 2020-0 Yes 10mg Take 10 mg [place] [facility] (LIORESAL) 1-14 by mouth 3 [facility] 10 MG 17:04: times of tablet 14 daily. Medicin e Melatonin 3 2020-0 Yes 3mg Take 3 mg [facility] MG TABS 1-14 by mouth [place] 17:04: nightly. of 14 Medicin e docusate 2020-0 Yes 100mg Take 100 [facility] sodium 1-14 mg by [place] (COLACE) 17:04: mouth two of 100 MG 14 times Medicin capsule daily. e linaCLOtide 2020-0 Yes 72mg Take 72 mg [facility] (LINZESS) 1-14 by mouth [facility] e 72 MCG CAPS 17:04: daily. of 14 Medicin e baclofen 2020-0 Yes 10mg Take 10 mg [place] [facility] (LIORESAL) 1-14 by mouth 3 [facility] 10 MG 17:04: times of tablet 14 daily. Medicin e Melatonin 3 2020-0 Yes 3mg Take 3 mg [facility] MG TABS 1-14 by mouth [place] 17:04: nightly. of 14 Medicin e insulin 2020-0 Yes 40U Inject 40 [facility] glargine 1-14 Units into [facility]le [facility] (LANTUS) 17:04: the skin of 100 UNIT/ML 14 nightly. Medi darci injection e rosuvastati 2020-0 Yes 10mg Take 10 mg [facility] n (CRESTOR) 1-14 by mouth [facility] 10 MG 17:04: daily. of tablet 14 Medicin e Apixaban 2020-0 Yes 2.5mg Take 2.5 [facility] (ELIQUIS) 1-14 mg by [place] 2.5 MG TABS 17:04: mouth of 14 daily. Medicin e [place]-3 2020-0 Yes 1mg Take 1 mg [facility] Fatty Acids 1-14 by mouth [facility] (OMEGA-3 17:04: daily. of FISH OIL 14 Medicin OR) e montelukast 2020-0 Yes 10mg Take 10 mg [facility] (SINGULAIR) 1-14 by mouth [facility] 10 MG 17:04: daily. of tablet 14 Medicin e fexofenadin 2020-0 Yes 1{tbl} Take 1 Tab [facility] e-pseudoeph 1-14 by mouth [facility] k[facility] edrine 17:04: daily. of (JULISSA-D 14 Medicin ALLERGY & e CONGESTION) 180-240 MG per tablet gabapentin 2020-0 Yes 300mg Take 300 [facility] (NEURONTIN) 1-14 mg by [place] 300 MG 17:04: mouth 3 of capsule 14 times Medicin daily. e Cholecalcif 2020-0 Yes [id number] Take [place] [facility] karoline 1-14 50,000 mg [place] (VITAMIN 17:04: by mouth of D3) [id number] 14 daily. Medicin units CAPS e Sevelamer 2020-0 Yes 800mg Take 800 [place] [facility] Carbonate 1-14 mg by [place] 800 MG TABS 17:04: mouth of 14 daily. Medicin e docusate 2020-0 Yes 100mg Take 100 [facility] sodium 1-14 mg by [place] (COLACE) 17:04: mouth two of 100 MG 14 times Medicin capsule daily. e linaCLOtide 2020-0 Yes 72mg Take 72 mg [facility] (LINZESS) 1-14 by mouth [facility] 72 MCG CAPS 17:04: daily. of 14 Medicin e Polyethylen 2020-0 Yes 17mg Take 17 mg [facility] e Glycol 1-14 by mouth [place] 3350 17:04: daily. of (MIRALAX 14 Medicin OR) e baclofen 2020-0 Yes 10mg Take 10 mg [place] [facility] (LIORESAL) 1-14 by mouth 3 [facility] 10 MG 17:04: times of tablet 14 daily. Medicin e hydrocodone 2020-0 Yes 15mL Take 15 mL [facility] -acetaminop 1-14 by mouth 4 [facility] hen (HYCET) 17:04: times of 7.5-325 14 daily as Medicin MG/15ML needed. e solution pantoprazol 2020-0 Yes 40mg Take 40 mg [facility] e 1-14 by mouth [place] (PROTONIX) 17:04: daily. of 40 MG 14 Medicin tablet e Melatonin 3 2020-0 Yes 3mg Take 3 mg B [place] MG TABS 1-14 by mouth [place] 17:04: nightly. of 14 Medicin e Insulin 2020-0 Yes 100ug Inject 100 [place] radha Aspart 1-14 mcg into [facility] (NOVOLOG 17:04: the skin of PENFILL) 14 daily. Medicin 100 UNIT/ML e SOCT docusate 2020-0 Yes 100mg Take 100 [place] or sodium 1-14 mg by [place] (COLACE) 11:04: mouth two of 100 MG 14 times Medicin capsule daily. e linaCLOtide 2020-0 Yes 72mg Take 72 mg [place] (LINZESS) 1-14 by mouth [facility] e 72 MCG CAPS 11:04: daily. of 14 Medicin e baclofen 2020-0 Yes 10mg Take 10 mg [place] [facility] (LIORESAL) 1-14 by mouth 3 [facility] 10 MG 11:04: times of tablet 14 daily. Medicin e Melatonin 3 2020-0 Yes 3mg Take 3 mg B a[facility] MG TABS 1-14 by mouth [place] 11:04: nightly. of 14 Medicin e docusate 2020-0 Yes 100mg Take 100 [facility] or sodium 1-14 mg by [place] (COLACE) 11:04: mouth two of 100 MG 14 times Medicin capsule daily. e linaCLOtide 2020-0 Yes 72mg Take 72 mg [facility] (LINZESS) 1-14 by mouth [facility] e 72 MCG CAPS 11:04: daily. of 14 Medicin e baclofen 2020-0 Yes 10mg Take 10 mg [place] [facility] (LIORESAL) 1-14 by mouth 3 [facility] 10 MG 11:04: times of tablet 14 daily. Medicin e Melatonin 3 2020-0 Yes 3mg Take 3 mg [facility] MG TABS 1-14 by mouth [place] 11:04: nightly. of 14 Medicin e clopidogrel 2020-0 Yes 75mg Take 1 Tab [facility] (PLAVIX) 75 1-14 by mouth [facility] MG Tablet 00:00: daily. of 00 Medicin e metoprolol 2020-0 Yes 25mg Take 1 Tab [facility] (TOPROL XL) 1-14 by mouth [facility] ege 25 MG XL 00:00: daily. of tablet 00 Medicin e metoprolol 2020-0 2020- No 25mg Take 25 mg [facility] (TOPROL-XL) 1-14 12-02 by mouth [facility] 25 MG XL 00:00: 00:00 two times of tablet 00 :00 daily. Medicin e metoprolol 2020-0 2019- No 25mg Take 1 Tab [facility] (TOPROL XL) 1-14 -28 by mouth [facility] 25 MG XL 00:00: 00:00 daily. of tablet 00 :00 Medicin e Colchicine 2019- 2019- No .6mg Take 0.6 Ba ylor 0.6 MG CAPS 8-06 08-06 mg by Colleg e 16:59: 00:00 mouth of 55 :00 daily. Medicin e amiodarone 2018- 2019- No 200mg Take 200 [facility] (PACERONE) 8-06 08-06 mg by [place] 200 MG 16:59: 00:00 mouth of tablet 49 :00 daily. Medicin e Insulin 0 Yes 100ug Inject 100 [place] [facility] Aspart 8-06 mcg into [facility] (NOVOLOG 16:50: the skin of PENFILL) 46 daily. Medicin 100 UNIT/ML e SOCT Apixaban 0 Yes 2.5mg Take 2.5 [facility] (ELIQUIS) 8-06 mg by [place] 2.5 MG TABS 16:37: mouth of 05 daily. Medicin e [place]-3 Yes 1mg Take 1 mg [facility] r Fatty Acids 8-06 by mouth [facility] e[facility] (OMEGA-3 16:37: daily. of FISH OIL 05 Medicin OR) e montelukast Yes 10mg Take 10 mg [facility] (SINGULAIR) 8-06 by mouth [facility] e[facility] 10 MG 16:37: daily. of tablet 05 Medicin e fexofenadin 0 Yes 1{tbl} Take 1 Tab [facility] e-pseudoeph 8-06 by mouth [facility] edrine 16:37: daily. of (JULISSA-D 05 Medicin ALLERGY & e CONGESTION) 180-240 MG per tablet gabapentin 0 Yes 300mg Take 300 [facility] (NEURONTIN) 8-06 mg by [place] 300 MG 16:37: mouth 3 of capsule 05 times Medicin daily. e Cholecalcif Yes Take by [place] [facility] karoline 8-06 mouth. College (VITAMIN 16:37: of D3) 5000 05 Medicin units TABS e Cholecalcif 2018-0 Yes [id number] Take [place] [facility] karoline 8-06 50,000 mg [place] (VITAMIN 16:37: by mouth of D3) 00742 05 daily. Medicin units CAPS e Sevelamer 2019-0 Yes 800mg Take 800 [place] [facility] Carbonate 8-06 mg by [place] 800 MG TABS 16:37: mouth of 05 daily. Medicin e docusate 2019- Yes 100mg Take 100 [facility] or sodium 8-06 mg by [place] (COLACE) 16:37: mouth two of 100 MG 05 times Medicin capsule daily. e linaCLOtide Yes 72mg Take 72 mg [facility] (LINZESS) 8-06 by mouth [facility] e 72 MCG CAPS 16:37: daily. of 05 Medicin e Polyethylen Yes 17mg Take 17 mg [facility] e Glycol 8-06 by mouth [place] 3350 16:37: daily. of (MIRALAX 05 Medicin OR) e baclofen Yes 10mg Take 10 mg [place] [facility] (LIORESAL) 8-06 by mouth 3 [facility] 10 MG 16:37: times of tablet 05 daily. Medicin e hydrocodone Yes 15mL Take 15 mL [facility] -acetaminop 8-06 by mouth 4 [facility] hen (HYCET) 16:37: times of 7.5-325 05 daily as Medicin MG/15ML needed. e solution pantoprazol Yes 40mg Take 40 mg [facility] e 8-06 by mouth [place] (PROTONIX) 16:37: daily. of 40 MG 05 Medicin tablet e clopidogrel Yes 75mg Take 75 mg [facility] (PLAVIX) 75 8-06 by mouth [facility] ege MG tablet 16:37: daily. of 05 Medicin e Melatonin 3 Yes 3mg Take 3 mg B a[facility] MG TABS 8-06 by mouth [place] 16:37: nightly. of 05 Medicin e insulin Yes 40U Inject 40 [facility] r glargine 8-06 Units into [facility]le [facility] (LANTUS) 16:37: the skin of 100 UNIT/ML 05 nightly. Medi darci injection e rosuvastati Yes 10mg Take 10 mg [facility] n (CRESTOR) 8-06 by mouth [facility] ege 10 MG 16:37: daily. of tablet 05 Medicin e amitriptyli 2017-09 Yes 1{tbl} Take 1 Tab [facility] ne (ELAVIL) 0-02 by mouth [facility] ege 25 MG 00:00: daily. of tablet 00 Medicin e amitriptyli 2017-09 Yes 1{tbl} Take 1 Tab [facility] ne (ELAVIL) 0-02 by mouth [facility] e[facility] 25 MG 00:00: daily. of tablet 00 Medicin e amitriptyli 2017-09- No 1{tbl} Take 1 Tab [facility] ne (ELAVIL) 0-02 04-15 by mouth [facility] 25 MG 00:00: 00:00 daily. of tablet 00 :00 Medicin e Immunizations Ordered Immunization Filled Immunization Date Status Commen ts Source Name Name Pfizer SARS-CoV-2 2020-11-07 Completed [facility] Vaccination 00:00:00 of Medicine Pfizer SARS-CoV-2 2020-11-07 Completed [facility] [employer] Vaccination 00:00:00 of Medicine Pfizer SARS-CoV-2 2020-11-07 [facility] Medicine Pfizer SARS-CoV-2 2020-11-07 Completed [facility] Vaccination 00:00:00 of Medicine Pfizer SARS-CoV-2 2020-11-07 Completed [facility] [employer] Vaccination 00:00:00 of Medicine Pfizer SARS-CoV-2 2020-11-07 Completed [facility] Vaccination 00:00:00 of Medicine Pfizer SARS-CoV-2 2020-11-07 Completed [facility] [employer] Vaccination 00:00:00 of Medicine Pfizer SARS-CoV-2 2020-10-17 Completed [facility] Vaccination 00:00:00 of Medicine Pfizer SARS-CoV-2 2020-10-17 Completed [facility] [employer] Vaccination 00:00:00 of Medicine Pfizer SARS-CoV-2 2020-10-17 Completed [facility] Vaccination 00:00:00 of Medicine Pfizer SARS-CoV-2 2020-10-17 Completed [facility] [employer] Vaccination 00:00:00 of Medicine Pfizer SARS-CoV-2 2020-10-17 Completed [facility] [employer] Vaccination 00:00:00 of Medicine Pfizer SARS-CoV-2 2020-10-17 Completed [facility] Vaccination 00:00:00 of Medicine Pfizer SARS-CoV-2 2020-10-17 Completed [facility] Vaccination 00:00:00 of Medicine Vital Signs Vital Name Observation Time Observation Value Comments Source HEIGHT 2022-07-19 12:00:00 180.3 cm WEIGHT 2022-07-19 12:00:00 125.4 kg HEIGHT 2022-07-13 12:07:00 180.3 cm WEIGHT 2022-07-13 12:07:00 124.5 kg HEIGHT 2022-07-19 12:00:00 180.3 cm WEIGHT 2022-07-19 12:00:00 125.4 kg HEIGHT 2022-07-13 12:07:00 180.3 cm WEIGHT 2022-07-13 12:07:00 124.5 kg HEIGHT 2022-07-19 12:00:00 180.3 cm WEIGHT 2022-07-19 12:00:00 125.4 kg HEIGHT 2022-07-13 12:07:00 180.3 cm WEIGHT 2022-07-13 12:07:00 124.5 kg Systolic blood 2022-05-18 20:42:00 106 mm[Hg] [facility] pressure Medicine Diastolic blood 2022-05-18 20:42:00 54 mm[Hg] [facility] Medicine Heart rate 2022-05-18 20:42:00 89 /min [facility] of [facility] Body height 2022-05-18 20:42:00 185.4 cm [facility] of [facility] Body weight 2022-05-18 20:42:00 129.275 kg [facility] BMI 2022-05-18 20:42:00 37.60 kg[facility]m2 [facility] Systolic blood 2022-03-02 20:56:00 118 mm[Hg] [facility] Medicine Diastolic blood 2022-03-02 20:56:00 62 mm[Hg] [facility] Medicine Heart rate 2022-03-02 20:56:00 69 /min [facility] of Medicine Respiratory rate 2022-03-02 20:56:00 16 /min [facility] Body height 2022-03-02 20:56:00 185.4 cm [facility] Body weight 2022-03-02 20:56:00 128.822 kg [facility] of Medicine BMI 2022-03-02 20:56:00 37.47 kg/m2 [facility] Oxygen saturation in 2022-03-02 20:56:00 98 /min [facility] of Arterial blood by Medicine Pulse oximetry WEIGHT 2022-01-26 20:00:00 125.5 kg HEIGHT 2022-01-25 10:31:00 180.3 cm WEIGHT 2022-01-25 10:31:00 127.914 kg WEIGHT 2022-01-26 20:00:00 125.5 kg HEIGHT 2022-01-25 10:31:00 180.3 cm WEIGHT 2022-01-25 10:31:00 127.914 kg WEIGHT 2022-01-26 20:00:00 125.5 kg HEIGHT 2022-01-25 10:31:00 180.3 cm WEIGHT 2022-01-25 10:31:00 127.914 kg WEIGHT 2022-01-21 18:00:00 132 kg HEIGHT 2022-01-19 10:56:00 180.3 cm WEIGHT 2022-01-19 10:56:00 125 kg WEIGHT 2022-01-21 18:00:00 132 kg HEIGHT 2022-01-19 10:56:00 180.3 cm WEIGHT 2022-01-19 10:56:00 125 kg WEIGHT 2022-01-21 18:00:00 132 kg HEIGHT 2022-01-19 10:56:00 180.3 cm WEIGHT 2022-01-19 10:56:00 125 kg Systolic blood 2022-01-17 21:17:00 137 mm[Hg] [facility] pressure Medicine Diastolic blood 2022-01-17 21:17:00 54 mm[Hg] [facility] Medicine Heart rate 2022-01-17 21:17:00 63 /min [facility] Body height 2022-01-17 21:17:00 182.9 cm [facility] Body weight 2022-01-17 21:17:00 129 kg [facility] BMI 2022-01-17 21:17:00 38.57 kg/m2 [facility] Oxygen saturation in 2022-01-17 21:17:00 97 /min [facility] of Arterial blood by Medicine Pulse oximetry Systolic blood 2021-10-19 15:37:00 117 mm[Hg] [facility] of pressure Medicine Diastolic blood 2021-10-19 15:37:00 66 mm[Hg] [facility] Medicine Heart rate 2021-10-19 15:37:00 61 /min [facility] Respiratory rate 2021-10-19 15:37:00 16 /min [facility] Body height 2021-10-19 15:37:00 182.9 cm [facility] Body weight 2021-10-19 15:37:00 131.09 kg [facility] Medicine BMI 2021-10-19 15:37:00 39.20 kg/m2 [facility] Oxygen saturation in 2021-10-19 15:37:00 97 /min [facility] of Arterial blood by Medicine Pulse oximetry Systolic blood 2021-08-05 18:36:00 124 mm[Hg] [facility] Medicine Diastolic blood 2021-08-05 18:36:00 50 mm[Hg] [facility] Medicine Heart rate 2021-08-05 17:58:00 62 /min [facility] Respiratory rate 2021-08-05 17:58:00 16 /min [facility] Body height 2021-08-05 17:58:00 182.9 cm [facility] Body weight 2021-08-05 17:58:00 131.543 kg [facility] BMI 2021-08-05 17:58:00 39.33 kg/m2 [facility] Oxygen saturation in 2021-08-05 17:58:00 97 /min [facility] Arterial blood by Medicine Pulse oximetry WEIGHT 2021-06-18 08:29:00 128.3 kg [...] kg Systolic blood 2020-12-17 17:45:00 142 mm[Hg] [facility] of pressure Medicine Diastolic blood 2020-12-17 17:45:00 71 mm[Hg] [facility] Medicine Heart rate 2020-12-17 17:45:00 60 /min [facility] Respiratory rate 2020-12-17 17:45:00 16 /min [facility] Body height 2020-12-17 17:45:00 182.9 cm [facility] Body weight 2020-12-17 17:45:00 131.09 kg [facility] BMI 2020-12-17 17:45:00 39.20 kg/m2 [facility] Oxygen saturation in 2020-12-17 17:45:00 99 /min [facility] of Arterial blood by Medicine Pulse oximetry Systolic blood 2020-12-17 17:13:00 142 mm[Hg] [facility] pressure Medicine Diastolic blood 2020-12-17 17:13:00 71 mm[Hg] [facility] Medicine Heart rate 2020-12-17 17:13:00 60 /min [facility] Respiratory rate 2020-12-17 17:13:00 16 /min [facility] Body height 2020-12-17 17:13:00 182.9 cm [facility] Body weight 2020-12-17 17:13:00 131.09 kg [facility] BMI 2020-12-17 17:13:00 39.20 kg/m2 [facility] Oxygen saturation in 2020-12-17 17:13:00 99 /min [facility] of Arterial blood by Medicine Pulse oximetry Systolic blood 2020-06-23 18:50:00 110 mm[Hg] [facility] of pressure Medicine Diastolic blood 2020-06-23 18:50:00 66 mm[Hg] [facility] pressure Medicine Heart rate 2020-06-23 18:50:00 94 /min [facility] ol[facility] of Medicine Respiratory rate 2020-06-23 18:50:00 16 /min [facility] Body height 2020-06-23 18:50:00 182.9 cm [facility] ol[facility] of Medicine Body weight 2020-06-23 18:50:00 132.45 kg [facility] ol[facility] of Medicine BMI 2020-06-23 18:50:00 39.60 kg/m2 [facility] ol[facility] of Medicine Oxygen saturation in 2020-06-23 18:50:00 97 /min [facility] of Arterial blood by Medicine Pulse oximetry Systolic blood 2020-06-23 18:50:00 110 mm[Hg] [facility] pressure Medicine Diastolic blood 2020-06-23 18:50:00 66 mm[Hg] [facility] pressure Medicine Heart rate 2020-06-23 18:50:00 94 /min [facility] Medicine Respiratory rate 2020-06-23 18:50:00 16 /min [facility] Body height 2020-06-23 18:50:00 182.9 cm [facility] Body weight 2020-06-23 18:50:00 132.45 kg [facility] BMI 2020-06-23 18:50:00 39.60 kg/m2 [facility] Oxygen saturation in 2020-06-23 18:50:00 97 /min [facility] of Arterial blood by Medicine Pulse oximetry Systolic blood 2020-01-30 16:00:00 149 mm[Hg] [facility] pressure Medicine Diastolic blood 2020-01-30 16:00:00 79 mm[Hg] [facility] of pressure Medicine Heart rate 2020-01-30 16:00:00 87 /min [facility] Medicine Respiratory rate 2020-01-30 16:00:00 16 /min [facility] Body height 2020-01-30 16:00:00 182.9 cm [facility] of Medicine Body weight 2020-01-30 16:00:00 129.729 kg [facility] ol[facility] of Medicine BMI 2020-01-30 16:00:00 38.79 kg/m2 [facility] Medicine Oxygen saturation in 2020-01-30 16:00:00 99 /min [facility] of Arterial blood by Medicine Pulse oximetry Systolic blood 2020-01-30 16:00:00 149 mm[Hg] [facility] of pressure Medicine Diastolic blood 2020-01-30 16:00:00 79 mm[Hg] [facility] of pressure Medicine Heart rate 2020-01-30 16:00:00 87 /min [facility] Medicine Respiratory rate 2020-01-30 16:00:00 16 /min [facility] Body height 2020-01-30 16:00:00 182.9 cm [facility] Body weight 2020-01-30 16:00:00 129.729 kg [facility] BMI 2020-01-30 16:00:00 38.79 kg/m2 [facility] Oxygen saturation in 2020-01-30 16:00:00 99 /min [facility] of Arterial blood by Medicine Pulse oximetry Systolic blood 2019-09-17 16:58:00 152 mm[Hg] [facility] Medicine Diastolic blood 2019-09-17 16:58:00 65 mm[Hg] [facility] Medicine Heart rate 2019-09-17 16:58:00 83 /min [facility] Medicine Respiratory rate 2019-09-17 16:58:00 16 /min [facility] Body height 2019-09-17 16:58:00 182.9 cm [facility] Body weight 2019-09-17 16:58:00 129.729 kg [facility] BMI 2019-09-17 16:58:00 38.79 kg/m2 [facility] Oxygen saturation in 2019-09-17 16:58:00 98 /min [facility] of Arterial blood by Medicine Pulse oximetry Systolic blood 2019-09-17 16:58:00 152 mm[Hg] [facility] of pressure Medicine Diastolic blood 2019-09-17 16:58:00 65 mm[Hg] [facility] pressure Medicine Heart rate 2019-09-17 16:58:00 83 /min [facility] Medicine Respiratory rate 2019-09-17 16:58:00 16 /min [facility] Body height 2019-09-17 16:58:00 182.9 cm [facility] Body weight 2019-09-17 16:58:00 129.729 kg [facility] BMI 2019-09-17 16:58:00 38.79 kg/m2 [facility] Medicine Oxygen saturation in 2019-09-17 16:58:00 98 /min [facility] of Arterial blood by Medicine Pulse oximetry Systolic blood 2019-04-09 16:33:00 129 mm[Hg] [facility] of pressure Medicine Diastolic blood 2019-04-09 16:33:00 56 mm[Hg] [facility] pressure Medicine Heart rate 2019-04-09 16:33:00 77 /min [facility] Medicine Respiratory rate 2019-04-09 16:33:00 16 /min [facility] Body height 2019-04-09 16:33:00 182.9 cm [facility] Body weight 2019-04-09 16:33:00 131.09 kg [facility] Medicine BMI 2019-04-09 16:33:00 39.20 kg/m2 [facility] Oxygen saturation in 2019-04-09 16:33:00 95 /min [facility] of Arterial blood by Medicine Pulse oximetry Systolic blood 2019-04-09 16:33:00 129 mm[Hg] [facility] of pressure Medicine Diastolic blood 2019-04-09 16:33:00 56 mm[Hg] [facility] Medicine Heart rate 2019-04-09 16:33:00 77 /min [facility] Medicine Respiratory rate 2019-04-09 16:33:00 16 /min [facility] Body height 2019-04-09 16:33:00 182.9 cm [facility] Body weight 2019-04-09 16:33:00 131.09 kg [facility] BMI 2019-04-09 16:33:00 39.20 kg/m2 [facility] Medicine Oxygen saturation in 2019-04-09 16:33:00 95 /min [facility] of Arterial blood by Medicine Pulse oximetry Systolic blood 2022-07-19 15:10:00 146 mm[Hg] [facility] Diastolic blood 2022-07-19 15:10:00 67 mm[Hg] [facility] Heart rate 2022-07-19 15:10:00 76 /min [facility] Body temperature 2022-07-19 15:10:00 36.72 Ana [facility] Respiratory rate 2022-07-19 15:10:00 16 /min [facility] Oxygen saturation in 2022-07-19 15:10:00 98 /min [facility] Arterial blood by Medical Ce nter Pulse oximetry Body height 2022-07-19 12:00:00 180.3 cm [facility] Body weight 2022-07-19 12:00:00 125.4 kg [facility] BMI 2022-07-19 12:00:00 38.56 kg/m2 [facility] Procedures Procedure Date / Time Performing Clinician Source Performed REPORT OF PROCEDURE - 2022-07-19 14:25:11 Coby Polanco [facility] ENDOSCOPY [facility] REPORT OF PROCEDURE - 2022-07-19 14:22:12 Sheikh Coby [facility] TISSUE EXAM 2022-07-19 13:33:00 Coby Poalnco [facility] COLONOSCOPY 2022-07-19 13:04:00 Sheikh [facility] ENDOSCOPY, UPPER GI TRACT, 2022-07-19 13:04:00 Coby Polanco i [facility] WITH BIOPSY [facility] EGD, WITH GASTRIC 2022-07-19 13:04:00 Coby Polanco [facility] POLYPECTOMY [facility] POCT-GLUCOSE METER 2022-07-19 12:21:00 Sheikh Coby [facility] BASIC METABOLIC PANEL 2022-07-19 12:19:00 Alex Wolff [facility] HEMOGLOBIN 2022-07-19 12:19:00 Alex Wolff [facility] POTASSIUM-STAT LAB 2022-07-19 12:19:00 Alex Wolff [facility] PROTHROMBIN TIME/INR 2022-07-19 12:19:00 Alex Wolff [facility] ELECTROCARDIOGRAM COMPLETE 2022-05-18 21:51:00 Arron Mercedes [facility] ELECTROCARDIOGRAM COMPLETE 2022-05-18 16:51:00 Asha [facility] HEMODIALYSIS INPATIENT 2022-01-26 16:00:10 Jenn Jonas [facility] POCT-GLUCOSE METER 2022-01-26 11:46:00 Chelsie [facility] CBC W/PLT+MANUAL DIFF 2022-01-26 08:07[facility] 2022-01-26 08:07:00 [facility] CBC WITH PLATELET COUNT + 2022-01-26 08:07:00 Arron [facility] MANUAL DIFF [facility] (MANUAL DIFFERENTIAL) 2022-01-26 08:07:00 Jenn Jonas [facility] POCT-GLUCOSE METER 2022-01-26 07:23:00 Chelsie [facility] XR CHEST 1 VIEW PORTABLE / 2022-01-26 05:52:00 Praful Rodriguez [facility] ECG 12-LEAD 2022-01-26 04:49:24 Jennifer Praful [facility] BASIC METABOLIC PANEL 2022-01-26 04:40:00 Chelsie [facility] XR CHEST 1 VIEW PORTABLE / 2022-01-26 00:05:00 Praful Rodriguez [facility] ECG 12-LEAD 2022-01-25 23:28:33 Jennifer Praful [facility] POCT-GLUCOSE METER 2022-01-25 21:49:00 Chelsie [facility] AICD GENERATOR - REMOVE & 2022-01-25 16:46:00 Chelsie [facility] REPLACE W/ MAC ANESTHESIA [facility] (SING/DUAL/MULT) POCT-GLUCOSE METER 2022-01-25 16:07:00 Chelsie [facility] POCT-GLUCOSE METER 2022-01-25 14:11:00 [facility] PROTHROMBIN TIME/INR 2022-01-25 11:29:00 Keiramolina [facility] BASIC METABOLIC PANEL 2022-01-25 11:29:00 [facility] ECG 12-LEAD 2022-01-25 11:15:29 [facility] CARDIAC CATH REPORT - SCAN 2022-01-25 00:00:00 Provider [facility] ARRYTHMIA IMPLANT REPORT - 2022-01-25 00:00:00 ProviderHuy [facility] HEMODIALYSIS INPATIENT 2022-01-21 19:14:08 Jenn Jonas [facility] POCT-GLUCOSE METER 2022-01-21 17:37:[facility] 2022-01-21 11:55[facility]SE [facility] 2022-01-21 10:20:00 [facility]SE METER 2022-01-21 07:26:00 [facility] A1C 2022-01-21 04:58:00 [facility] 2022-01-21 04:58[facility] 2022-01-21 04:57:00 Bari Jacinto [facility] COMPREHENSIVE METABOLIC 2022-01-21 04:57:00 [facility] TSH/FREE T4 IF INDICATED 2022-01-21 04:57:00 Cathy Mott [facility] POCT-GLUCOSE METER 2022-01-20 21:12:00 [facility] 2022-01-20 18:09:00 Cesar [facility] CBC W/PLT COUNT & AUTO 2022-01-20 14:05:00 Sumi Jenn CH I [facility] CBC W/PLT COUNT & AUTO 2022-01-20 14:05:00 Jenn Jonas CH I [facility] PACEMAKER CHECK 2022-01-20 12:17:58 [facility] SENSITIVITY TROPONIN I 2022-01-20 12:14:00 Jose Mott [facility] HEMOGLOBIN A1C 2022-01-20 12:14:00 [facility] ANTIGEN 2022-01-20 12:14:00 Elsa Jonas [facility] POCT-GLUCOSE METER 2022-01-20 10:23:00 Cesar [facility] BASIC METABOLIC PANEL 2022-01-20 04:15:00 Ellen [facility] PROTHROMBIN TIME/INR 2022-01-20 04:15:00 Bari Jacinto [facility] LIPID PANEL 2022-01-20 04:15:00 Cathy Mott [facility] POCT-GLUCOSE METER 2022-01-19 21:15:00 Marcy Hugheskha [facility] POTASSIUM 2022-01-19 19:29:00 Pati Piña [facility] POCT-GLUCOSE METER 2022-01-19 18:39:[address] [facility] 2D ECHO W/ DOPPLER 2022-01-19 17:30:39 Alexandra Sylvester [facility] (CW/PW/COLOR) [facility] CBC W/PLT COUNT & AUTO 2022-01-19 15:18:00 Harrison Rodriguez [facility] BASIC METABOLIC PANEL 2022-01-19 15:18:00 Michael [facility] CBC W/PLT COUNT & AUTO 2022-01-19 15:18:00 Harrison Rodriguez [facility] HIGH SENSITIVITY TROPONIN I 2022-01-19 15:18:00 [place] [facility] PT/APTT 2022-01-19 15:18:00 Michael [facility] XR CHEST 1 VIEW PORTABLE / 2022-01-19 11:30:00 MichaelHarrison [facility] ECG 12-LEAD 2022-01-19 10:57:45 Michael [facility] ECG 12-LEAD 2022-01-19 10:57:45 Unknown, H[facility] ED ECG INTERPRETATION 2022-01-19 10:57:00 Alexandra Sylvester [facility] EKG-SCANNED 2022-01-19 00:00:00 Provider, [facility] ARRYTHMIA IMPLANT REPORT - 2022-01-19 00:00:00 Provider, [facility] ELECTROCARDIOGRAM COMPLETE 2021-10-19 15:50:00 Agustin Patel [facility] ELECTROCARDIOGRAM COMPLETE 2020-01-30 16:08:00 Agustin Patel [facility] ELECTROCARDIOGRAM COMPLETE 2019-09-17 17:06:00 Agustin Patel [facility] ELECTROCARDIOGRAM COMPLETE 2019-04-09 16:37:00 Agustin Patel [facility] ([facility]) HEART CATH 2019-04-09 15:59:27 Agustin Patel [facility] Miscellaneous [facility] operations<sup>1</sup> Plan of Care Planned Activity Planned Date Details Comments Source Future Scheduled 2032-07-19 Screening for malignant [facility] Test 00:00:00 neoplasm of colon Medical Ce nter (procedure) [code = 090612136] Future Scheduled 2032-07-19 Screening for malignant [facility] Test 00:00:00 neoplasm of colon Medical Ce nter (procedure) [code = 654045683] Future Scheduled 2023-07-[address] [facility] Test 00:00:00 Counseling and Screening Med ical Center (12+) [code = Tobacco Cessation Counseling and Screening (12+)] Future Scheduled 2022-09-[address] [facility] Test 00:00:00 (12+) [code = DEPRESSION Med ical Center SCREENING (12+)] Future Scheduled 2022-09-04 FALLS RISK SCREENING [facility] Test 00:00:00 [code = FALLS RISK Medical C enter SCREENING] Future Scheduled 2022-05-22 Screening for malignant [facility] Test 11:34:30 neoplasm of colon of Medicin e (procedure) [code = 290466836] Future Scheduled 2022-05-22 Pneumococcal 65+ (1 - [facility] 11:34:30 PCV) [code = of Medicine Pneumococcal 65+ (1 - PCV)] Future Scheduled 2022-05-22 TETANUS SHOT (ADULT) [facility] [employer] Test 11:34:30 [code = TETANUS SHOT of Medi cine (ADULT)] Future Scheduled 2022-05-22 BMI FOLLOW UP PLAN [code [facility] Test 11:34:30 = BMI FOLLOW UP PLAN] of Med icine Future Scheduled 2022-05-22 Hepatitis C screening [facility] Test 11:34:30 (procedure) [code = of Medic ine 980044029] Future Scheduled 2022-05-22 ZOSTER VACCINE (1 of 2) [facility] Test 11:34:30 [code = ZOSTER VACCINE of Me dicine (1 of 2)] Future Scheduled 2022-05-22 MEDICARE AWV (Initial) [facility] Test 11:34:30 [code = MEDICARE AWV of Medi cine (Initial)] Future Scheduled 2022-05-22 FALL SCREEN [code = FALL [facility] Test 11:34:30 SCREEN] of Medicine Future Scheduled 2022-05-22 COVID-19 Vaccine (3 - [facility] Test 11:34:30 Booster for Pfizer of Medici ne series) [code = COVID-19 Vaccine (3 - Booster for Pfizer series)] Future Scheduled 2022-05-22 FLU VACCINE > 6 MONTHS [employer] Test 11:34:30 [code = FLU VACCINE > 6 of M edicine MONTHS] Future Scheduled 2022-05-18 ELECTROCARDIOGRAM [facility] Test 16:49:35 COMPLETE [code = 31023] of M edicine Future Scheduled 2022-05-05 INFLUENZA VACCINE (#1) [facility] 00:[facility]00 [code = INFLUENZA Medical Ce nter VACCINE (#1)] Future Scheduled 2022-04-18 US CAROTID [code = Expected: [facility] [employer] [facility] 00:00:00 07202] 04/18/2022, of Medicine Expires: 10/19/2022 Future Scheduled 2022-03-14 Screening for malignant [facility] Test 08:58:03 neoplasm of colon of Medicin e (procedure) [code = 366913974] Future Scheduled 2022-03-14 Pneumococcal 65+ (1 - [employer] [employer] Test 08:58:03 PCV) [code = of Medicine Pneumococcal 65+ (1 - PCV)] Future Scheduled 2022-03-14 TETANUS SHOT (ADULT) [place] [facility] Test 08:58:03 [code = TETANUS SHOT of Medi cine (ADULT)] Future Scheduled 2022-03-14 BMI FOLLOW UP PLAN [code [facility] Test 08:58:03 = BMI FOLLOW UP PLAN] of Med icine Future Scheduled 2022-03-14 Hepatitis C screening [facility] Test 08:58:03 (procedure) [code = of Medic ine 467843507] Future Scheduled 2022-03-14 ZOSTER VACCINE (1 of 2) [facility] Test 08:58:03 [code = ZOSTER VACCINE of Me dicine (1 of 2)] Future Scheduled 2022-03-14 MEDICARE AWV (Initial) [facility] Test 08:58:03 [code = MEDICARE AWV of Medi cine (Initial)] Future Scheduled 2022-03-14 FALL SCREEN [code = FALL [facility] Test 08:58:03 SCREEN] of Medicine Future Scheduled 2022-03-14 COVID-19 Vaccine (3 - [employer] [employer] [facility] 08:58:03 Booster for Pfizer of Medici ne series) [code = COVID-19 Vaccine (3 - Booster for Pfizer series)] Future Scheduled 2022-03-14 FLU VACCINE > 6 MONTHS [facility] Test 08:58:03 [code = FLU VACCINE > 6 of M edicine MONTHS] Future Scheduled 2022-03-02 ELECTROCARDIOGRAM Ordered: [facility] Test 16:34:57 COMPLETE [code = 84886] 03/02/2022 of M edicine Future Scheduled 2022-01-19 Screening for malignant [facility] Test 08:45:09 neoplasm of colon of Medicin e (procedure) [code = 882532100] Future Scheduled 2022-01-19 TETANUS SHOT (ADULT) [place] [facility] [employer] Test 08:45:09 [code = TETANUS SHOT of Medi cine (ADULT)] Future Scheduled 2022-01-19 BMI FOLLOW UP PLAN [code [employer] Test 08:45:09 = BMI FOLLOW UP PLAN] of Med icine Future Scheduled 2022-01-19 Hepatitis C screening [employer] Test 08:45:09 (procedure) [code = of Medic ine 305012325] Future Scheduled 2022-01-19 ZOSTER VACCINE (1 of 2) [facility] Test 08:45:09 [code = ZOSTER VACCINE of Me dicine (1 of 2)] Future Scheduled 2022-01-19 MEDICARE AWV (Initial) [facility] [employer] [facility] 08:45:09 [code = MEDICARE AWV of Medi cine (Initial)] Future Scheduled 2022-01-19 FALL SCREEN [code = FALL [facility] Test 08:45:09 SCREEN] of Medicine Future Scheduled 2022-01-19 Pneumococcal 65+ (1 of 1 [facility] Test 08:45:09 - PPSV23) [code = of Medicin e Pneumococcal 65+ (1 of 1 - PPSV23)] Future Scheduled 2022-01-19 COVID-19 Vaccine (3 - Ba [facility] Test 08:45:09 Booster for Pfizer of Medici ne series) [code = COVID-19 Vaccine (3 - Booster for Pfizer series)] Future Scheduled 2022-01-19 FLU VACCINE > 6 MONTHS [employer] Test 08:45:09 [code = FLU VACCINE > 6 of edicine MONTHS] Diagnostic Test 2022-01-17 ECHO, COMPLETE [code = Expected: [facility] Pending 00:00:00 94348] 01/17/2022, of Medicine Expires: 07/20/2022 Future Scheduled 2021-10-26 Screening for malignant [facility] Test 01:06:11 neoplasm of colon of Medicin e (procedure) [code = 578655047] Future Scheduled 2021-10-26 TETANUS SHOT (ADULT) [place] [facility] [employer] Test 01:06:11 [code = TETANUS SHOT of Medi cine (ADULT)] Future Scheduled 2021-10-26 BMI FOLLOW UP PLAN [code [facility] Test 01:06:11 = BMI FOLLOW UP PLAN] of Med icine Future Scheduled 2021-10-26 Hepatitis C screening [facility] Test 01:06:11 (procedure) [code = of Medic ine 360467821] Future Scheduled 2021-10-26 ZOSTER VACCINE (1 of 2) [facility] Test 01:06:11 [code = ZOSTER VACCINE of dicine (1 of 2)] Future Scheduled 2021-10-26 MEDICARE AWV (Initial) [facility] Test 01:06:11 [code = MEDICARE AWV of Medi cine (Initial)] Future Scheduled 2021-10-26 FALL SCREEN [code = FALL [facility] Test 01:06:11 SCREEN] of Medicine Future Scheduled 2021-10-26 Pneumococcal 65+ (1 of 1 [facility] Test 01:06:11 - PPSV23) [code = of Medicin e Pneumococcal 65+ (1 of 1 - PPSV23)] Future Scheduled 2021-10-26 FLU VACCINE > 6 MONTHS [facility] Test 01:06:11 [code = FLU VACCINE > 6 of M edicine MONTHS] Future Scheduled 2021-10-26 COVID-19 Vaccine (3 - [facility] Test 01:06:11 Booster for Pfizer of Medici ne series) [code = COVID-19 Vaccine (3 - Booster for Pfizer series)] Future Scheduled 2021-10-19 ELECTROCARDIOGRAM [facility] Test 09:50:30 COMPLETE [code = 64609] of M edicine Diagnostic Test 2021-10-19 ECHO, COMPLETE [code = Expected: [facility] Pending 00:00:00 65106] 10/19/2021, of Medicine Expires: 04/18/2022 Future Scheduled 2021-08-05 Screening for malignant [facility] Test 11:59:26 neoplasm of colon of Medicin e (procedure) [code = 139180955] Future Scheduled 2021-08-05 TETANUS SHOT (ADULT) [facility] [employer] Test 11:59:26 [code = TETANUS SHOT of Medi cine (ADULT)] Future Scheduled 2021-08-05 BMI FOLLOW UP PLAN [code [facility] Test 11:59:26 = BMI FOLLOW UP PLAN] of Med icine Future Scheduled 2021-08-05 Hepatitis C screening [employer] [facility] 11:59:26 (procedure) [code = of Medic ine 470031609] Future Scheduled 2021-08-05 ZOSTER VACCINE (1 of 2) [facility] Test 11:59:26 [code = ZOSTER VACCINE of Me dicine (1 of 2)] Future Scheduled 2021-08-05 MEDICARE AWV (Initial) [facility] Test 11:59:26 [code = MEDICARE AWV of Medi [facility] (Initial)] Future Scheduled 2021-08-05 FALL SCREEN [code = FALL [facility] Test 11:59:26 SCREEN] of Medicine Future Scheduled 2021-08-05 Pneumococcal 65+ (1 of 1 [facility] Test 11:59:26 - PPSV23) [code = of Medicin e Pneumococcal 65+ (1 of 1 - PPSV23)] Future Scheduled 2021-08-05 FLU VACCINE > 6 MONTHS [facility] Test 11:59:26 [code = FLU VACCINE > 6 of M edicine MONTHS] Future Scheduled 2021-08-05 COVID-19 Vaccine (3 - [employer] [facility] 11:59:26 Booster for Pfizer of Medici ne series) [code = COVID-19 Vaccine (3 - Booster for Pfizer series)] Future Scheduled 2021-04-09 COVID-19 VACCINE (3 - [facility] Booster for Pfizer Medical C enter series) [code = COVID-19 VACCINE (3 - Booster for Pfizer series)] Diagnostic Test 2020-12-17 ECHO, COMPLETE [code = Expected: [employer] Pending 00:00:00 [id number]] 12/17/2020, of Medicine Expires: 06/18/2021 Diagnostic Test 2020-06-23 ECHO LIMITED [code = Expected: [employer] Pending 00:00:00 02887-0] 06/23/2020, of Medicine Expires: 06/23/2021 Future Scheduled 2019-10-[address] [facility] 00:[facility]00 measurement (procedure) [facility] [code = 72785436] Future Scheduled 2017-08-05 MEDICARE ANNUAL WELLNESS [facility] Test 00:00:00 (YEAR 2 or FIRST YEAR if [facility] no IPPE) [code = MEDICARE ANNUAL WELLNESS (YEAR 2 or FIRST YEAR if no IPPE)] Future Scheduled 2001 SHINGLES VACCINES ([address] [facility] Test 00:00:00 2) [code = SHINGLES [facility] Center VACCINES (1 of 2)] Future Scheduled 1970 DTAP/TDAP/TD VACCINES ([address] [facility] Test 00:00:00 - Tdap) [code = Medical Cent er DTAP/TDAP/TD VACCINES (1 - Tdap)] Future Scheduled 1969 HEPATITIS C [facility]CRE[facility]ING [facility] 00:00[facility]00 [code = HEPATITIS C Medical Center SCREENING] Future Scheduled 1961 DIABETIC EYE EXAM [code [facility] Test 00:00:00 = DIABETIC EYE EXAM] Medical Center Future Scheduled 1961 Urine screening for [facility] Test 00:00:00 protein (procedure) [facility] Center [code = 831543963] Future Scheduled 1957 PNEUMOCOCCAL 65+ YRS ([address] [facility] Test 00:00:00 - PCV) [code = Medical Cente r PNEUMOCOCCAL 65+ YRS (1 - PCV)] Future Scheduled 1951 CT Colonography (combo) [facility] Test 00:00:00 [code = CT Colonography [facility] (combo)] Future Scheduled 1951 Screening for malignant [facility] Test 00:00:00 neoplasm of colon Medical Ce nter (procedure) [code = 548843437] Future Scheduled 1951 Screening for malignant [facility] Test 00:00:00 neoplasm of colon Medical Ce nter (procedure) [code = 138976517] Future Scheduled 1951 Sigmoidoscopy [code [facility] ELECTROCARDIOGRAM [facility] Test COMPLETE [code = 00891] of M edicine Future Scheduled COLON CANCER SCREENING: [facility] Test COLONOSCOPY [code = of Medic ine COLON CANCER SCREENING: COLONOSCOPY] Future Scheduled TETANUS SHOT (ADULT) [place] [facility] Test [code = TETANUS SHOT of Medi cine (ADULT)] Future Scheduled Diabetic foot [facility] Test examination of Medicine (regime/therapy) [code = 989238714] Future Scheduled ANNUAL DIABETIC [facility] Test RETINOPATHY SCREENING of Med icine [code = ANNUAL DIABETIC RETINOPATHY SCREENING] Future Scheduled BMI FOLLOW UP PLAN [code [facility] Test = BMI FOLLOW UP PLAN] of Med icine Future Scheduled HEPATITIS C SCREENING [employer] [facility] [code = HEPATITIS C of Medic ine SCREENING] Future Scheduled MEDICARE AWV (Initial) [employer] [facility] [code = MEDICARE AWV of Medi cine (Initial)] Future Scheduled FALL SCREEN [code = FALL [employer] [facility] SCREEN] of Medicine Future Scheduled PNEUMOVAX >=65 (PPSV23) [facility] Test [code = PNEUMOVAX >=65 of Me dicine (PPSV23)] Future Scheduled PREVNAR >= 65 (PCV13) [employer] Test [code = PREVNAR >= 65 of Med icine (PCV13)] Future Scheduled FLU VACCINE > 6 MONTHS [employer] [facility] [code = FLU VACCINE > 6 of M edicine MONTHS] Future Scheduled COLON CANCER SCREENING: [facility] Test COLONOSCOPY [code = of Medic ine COLON CANCER SCREENING: COLONOSCOPY] Future Scheduled TETANUS SHOT (ADULT) [place] [employer] Test [code = TETANUS SHOT of Medi cine (ADULT)] Future Scheduled BMI FOLLOW UP PLAN [code [facility] Test = BMI FOLLOW UP PLAN] of Med icine Future Scheduled HEPATITIS C SCREENING [employer] [facility] [code = HEPATITIS C of Medic ine SCREENING] Future Scheduled ZOSTER VACCINE (1 of 2) [facility] Test [code = ZOSTER VACCINE of Me dicine (1 of 2)] Future Scheduled MEDICARE AWV (Initial) [employer] [facility] [code = MEDICARE AWV of Medi cine (Initial)] Future Scheduled FALL SCREEN [code = FALL [facility] Test SCREEN] of Medicine Future Scheduled PNEUMOVAX >=65 (PPSV23) [facility] Test [code = PNEUMOVAX >=65 of Me dicine (PPSV23)] Future Scheduled FLU VACCINE > 6 MONTHS [employer] [facility] [code = FLU VACCINE > 6 of M edicine MONTHS] Future Scheduled Screening for malignant [facility] Test neoplasm of colon of Medicin e (procedure) [code = 943127602] Future Scheduled TETANUS SHOT (ADULT) [place] [employer] Test [code = TETANUS SHOT of Medi cine (ADULT)] Future Scheduled BMI FOLLOW UP PLAN [code [facility] Test = BMI FOLLOW UP PLAN] of Med icine Future Scheduled Hepatitis C screening [employer] [facility] (procedure) [code = of Medic ine 042029912] Future Scheduled ZOSTER VACCINE (1 of 2) [employer] Test [code = ZOSTER VACCINE of Me dicine (1 of 2)] Future Scheduled MEDICARE AWV (Initial) [employer] [facility] [code = MEDICARE AWV of Medi cine (Initial)] Future Scheduled FALL SCREEN [code = FALL [facility] Test SCREEN] of Medicine Future Scheduled PNEUMOVAX >=65 (PPSV23) [facility] Test [code = PNEUMOVAX >=65 of Me dicine (PPSV23)] Future Scheduled FLU VACCINE > 6 MONTHS [employer] [facility] [code = FLU VACCINE > 6 of M edicine MONTHS] Future Scheduled Screening for malignant [facility] Test neoplasm of colon of Medicin e (procedure) [code = 698989096] Future Scheduled TETANUS SHOT (ADULT) [place] [employer] Test [code = TETANUS SHOT of Medi cine (ADULT)] Future Scheduled BMI FOLLOW UP PLAN [code [facility] Test = BMI FOLLOW UP PLAN] of Med icine Future Scheduled Hepatitis C screening [facility] Test (procedure) [code = of Medic ine 293627884] Future Scheduled ZOSTER VACCINE (1 of 2) [facility] Test [code = ZOSTER VACCINE of Me dicine (1 of 2)] Future Scheduled MEDICARE AWV (Initial) [facility] Test [code = MEDICARE AWV of Medi cine (Initial)] Future Scheduled FALL SCREEN [code = FALL [facility] Test SCREEN] of Medicine Future Scheduled PNEUMOVAX >=65 (PPSV23) [facility] Test [code = PNEUMOVAX >=65 of Me dicine (PPSV23)] Future Scheduled FLU VACCINE > 6 MONTHS [facility] Test [code = FLU VACCINE > 6 of M edicine MONTHS] Future Scheduled ELECTROCARDIOGRAM [facility] Test COMPLETE [code = 59274] of M edicine Future Scheduled COLON CANCER SCREENING: [facility] Test COLONOSCOPY [code = of Medic ine COLON CANCER SCREENING: COLONOSCOPY] Future Scheduled MEDICARE AWV [code = [place] [employer] [facility] MEDICARE AWV] of Medicine Future Scheduled TETANUS SHOT (ADULT) [place] [employer] Test [code = TETANUS SHOT of Medi cine (ADULT)] Future Scheduled Diabetic foot [facility] Test examination of Medicine (regime/therapy) [code = 119046522] Future Scheduled ANNUAL DIABETIC [facility] Test RETINOPATHY SCREENING of Med icine [code = ANNUAL DIABETIC RETINOPATHY SCREENING] Future Scheduled BMI FOLLOW UP PLAN [code [facility] Test = BMI FOLLOW UP PLAN] of Med icine Future Scheduled HEPATITIS C SCREENING [employer] [facility] [code = HEPATITIS C of Medic ine SCREENING] Future Scheduled FALL SCREEN [code = FALL [facility] Test SCREEN] of Medicine Future Scheduled PNEUMOVAX >=65 (PPSV23) [facility] Test [code = PNEUMOVAX >=65 of Me dicine (PPSV23)] Future Scheduled PREVNAR >= 65 (PCV13) [employer] Test [code = PREVNAR >= 65 of Med icine (PCV13)] Future Scheduled FLU VACCINE > 6 MONTHS [employer] Test [code = FLU VACCINE > 6 of M edicine MONTHS] Future Scheduled ELECTROCARDIOGRAM [facility] Test COMPLETE [code = 40319] of M edicine Future Scheduled COLON CANCER SCREENING: [facility] Test COLONOSCOPY [code = of Medic ine COLON CANCER SCREENING: COLONOSCOPY] Future Scheduled TETANUS SHOT (ADULT) [place] [facility] Test [code = TETANUS SHOT of Medi cine (ADULT)] Future Scheduled Diabetic foot [facility] Test examination of Medicine (regime/therapy) [code = 647693280] Future Scheduled ANNUAL DIABETIC [facility] Test RETINOPATHY SCREENING of Med icine [code = ANNUAL DIABETIC RETINOPATHY SCREENING] Future Scheduled BMI FOLLOW UP PLAN [code [employer] Test = BMI FOLLOW UP PLAN] of Med icine Future Scheduled HEPATITIS C SCREENING [facility] [code = HEPATITIS C of Medic ine SCREENING] Future Scheduled MEDICARE AWV (Initial) [employer] [facility] [code = MEDICARE AWV of Medi cine (Initial)] Future Scheduled FALL SCREEN [code = FALL [facility] Test SCREEN] of Medicine Future Scheduled PNEUMOVAX >=65 (PPSV23) [facility] Test [code = PNEUMOVAX >=65 of [...] Clinicians Facility Department ID 2020-06-29 Inpatient [facility] [id number] [facility] 22:07:00 77 [facility] 2019-10-22 Inpatient SLE SLE [id number] SLE 11:26:20 [id number] 2023-04-13 2023-04-13 Outpatient TONI PATEL [facility] [id number] [facility] 00:00:00 00:00:00 [facility] 2022-07-19 2022-07-19 Outpatient [facility] [id number] [facility] 11:04:00 23:59:00 [facility] 2022-07-19 2022-07-19 [facility] [id number] 11:04:00 15:54:00 Encounter [facility] 2022-07-19 2022-07-19 Outpatient SYEDA SANDHU Surgery [id number] SLE 11:04:00 15:54:00 [facility] 2022-07-19 2022-07-[address] [facility] [id number] 13:14:00 14:31:00 Event Jamel Griffin [facility] 2022-07-19 2022-07-[address] Surgery , [facility] [id number] 13:00:00 14:00:00 [facility] 2022-07-19 2022-07-19 Outpatient TONI POLANCO [facility] [id number] [facility] 11:04:48 11:04:48 [facility] [employer] [employer] 2022-07-19 2022-07-19 [facility] [id number] [facility] 11:01:47 11:01:47 [facility] [employer] [employer] 2022-07-19 2022-07-19 Travel [facility] [id number] [facility] 00:[facility] 00:00:00 [facility] 2022-07-13 2022-07-13 Outpatient SYEDA SANDHU [facility] [id number] SLE 00:00:00 00:00:00 [facility] 2022-07-13 2022-07-13 Travel [facility] [id number] [facility] 00:[facility]:00 00:00:00 [facility] 2022-05-18 2022-05-18 Office TONI MERCEDES [id number] [facility] 15:34:33 15:34:33 Visit MIHAIL AMBULATOR [id number] College Y [id number] of [id number] Medi darci 375 e 2022-04-19 2022-04-19 Outpatient BCM [facility] [id number] [facility] 08:51:56 16:16:25 [facility] 2022-04-19 2022-04-19 Outpatient BCM [facility] [id number] [facility] 08:45:35 13:54:04 [facility] [employer] [facility] [employer] 2022-04-19 2022-04-19 Outpatient JORGE BC BC [id number] [facility] 10:39:13 11:21:15 [facility] [employer] 2022-03-02 2022-03-02 Office DANILO Mercedes [id number] [facility] 15:20:00 15:40:00 Visit Mihail AMBULATOR [id number] College [place] Y [id number] of [id number] [facility] darci 375 e 2022-01-25 2022-01-26 Hospital [facility] [id number] 10:23:00 21:22:00 Encounter [facility] 2022-01-25 2022-01-26 Outpatient KEIRA, [facility] Surgery [id number] [facility] 10:23:00 21:22:00 [facility] 2022-01-25 2022-01-25 Outpatient [facility] [id number] [facility] 10:23:00 23:59:00 [facility] 2022-01-25 2022-01-[address] [facility] [id number] 17:11:00 20:51:00 Event Jim Hernandez [facility] 2022-01-25 2022-01-25 Surgery [facility] [id number] 16:03:00 18:24:00 [facility] 2022-01-25 2022-01-25 Outpatient BCM BCM [id number] [facility] 00:00:00 10:22:00 [facility] 2022-01-19 2022-01-21 [facility] Alexandra Sylvester [facility] [id number] 15:19:00 20:40:00 [facility]22-[facility]-19 2022-01-21 Inpatient ER [facility] Emergency [id number] [facility] 15:19:00 20:40:00 [facility] 2022-01-19 2022-01-19 Outpatient BCM BCM [id number] [facility] 00:00:00 23:59:00 [facility] 2022-01-19 2022-01-[address] [facility] [id number] 00:00:00 00:00:00 Only [facility] 2022-01-19 2022-01-19 Travel [facility] [id number] [facility] 00:00:00 00:00:00 [facility] 2022-01-17 2022-01-17 Office TONI Mercedes [id number] [facility] 16:00:00 16:40:00 Visit Mihail AMBULATOR 350.1.13.21 [employer] [place] Y 0.2.7.2.686 of [id number] [facility] darci 375 e 2021-12-23 2021-12-23 Outpatient MHIE IE [id number] [facility] 13:45:00 13:45:00 16 arline Teixeira 2021-10-19 2021-10-19 Office TONI PATEL 1.2.840.114 [id number] [facility] 09:17:10 11:20:44 Visit MAHBOOB AMBULATOR 350.1.13.21 College Y 0.2.7.2.686 of [id number] Medi darci 375 e 2021-08-05 2021-08-05 Office TONI Patel 1.2.840.114 [id number] [facility] 12:20:00 13:10:48 Visit Mahboob AMBULATOR 350.1.13.21 College Y 0.2.7.2.686 of [id number] Medi darci 375 e 2021-06-29 2021-06-29 Outpatient MHIE MHIE [id number] [facility] 09:00:00 09:00:00 15 l Puneet 2021-06-17 2021-06-18 Inpatient ALA, SLE Surgery [id number] SLE 10:18:00 14:10:00 MAHBOOB 2021-06-17 2021-06-17 Outpatient [facility] [id number] [facility] 00:00:00 23:59:00 Zoya harris of Medicin e 2021-06-17 2021-06-17 Outpatient MHIE MHIE [id number] [facility] 13:15:00 13:15:00 13 arline Teixeira 2021-06-02 2021-06-02 Outpatient MHIE MHIE [id number] [facility] 14:45:00 14:45:00 14 l Puneet 2021-05-06 2021-05-06 Outpatient MHIE MHIE [id number] [facility] 14:45:00 14:45:00 12 l Puneet 2021-03-25 2021-03-25 Outpatient MHIE MHIE [id number] [facility] 10:30:00 10:30:00 11 l Puneet 2021-03-09 2021-03-09 Outpatient MHIE MHIE [id number] [facility] 13:00:00 13:00:00 10 l Puneet 2021-02-25 2021-02-25 Outpatient MHIE MHIE [id number] [facility] 14:45:00 14:45:00 08 l Puneet 2021-02-25 2021-02-25 Outpatient MHIE MHIE [id number] 165 [facility] 11:00:00 11:00:00 09 l Puneet 2020-12-17 2020-12-17 Office [facility] 1.2.840.114 [id number] [facility] 11:35:22 17:02:09 Visit AGHAN, AMBULATOR 350.1.13.21 College HAMID Y 0.2.7.2.686 of [id number] [facility] 375 e 2020-12-17 2020-12-17 Office ALAM, BCM 1.2.840.[id number] [place] [address] 11:34:58 16:33:34 Visit MAHBOOB AMBULATOR 350.1.13.21 College Y 0.2.7.2.686 of [id number] [facility] 375 e 2020-06-23 2020-06-23 Office Alam, BCM 1.2.840.[id number] [place] [address] 13:42:26 16:51:35 Visit Mahboob AMBULATOR 350.1.13.21 College Y 0.2.7.2.686 of [id number] [facility] 375 e 2020-06-23 2020-06-23 Office Alam, BCM 1.2.840.114 [id number] 13:42:26 16:51:35 Visit Mahboob AMBULATOR 350.1.13.21 Y 0.2.7.2.686 [id number] [facility] 2020-01-30 2020-01-30 Office Alam, BCM 1.2.840.114 [id number] [facility] 10:49:04 15:06:03 Visit Mahboob AMBULATOR 350.1.13.21 College Y 0.2.7.2.686 of [id number] [facility] 375 e 2020-01-30 2020-01-30 Office Alam, BCM 1.2.840.114 [id number] 10:49:04 15:06:03 Visit Mahboob AMBULATOR 350.1.13.21 Y 0.2.7.2.686 [id number] [facility] 2019-12-16 2019-12-16 Outpatient SLEH SLEH [id number] 7-2 [facility] 00:00:00 00:00:00 [id number] 2019-09-17 2019-09-17 Office Alam, BCM 1.2.840.114 [id number] [facility] 10:55:39 11:56:54 Visit Mahboob AMBULATOR 350.1.13.21 College Y 0.2.7.2.686 of [id number] [facility] 315 e 2019-09-17 2019-09-17 Office Alam, BCM 1.2.840.114 [id number] 10:55:39 11:56:54 Visit Mahboob AMBULATOR 350.1.13.21 Y 0.2.7.2.686 [id number] 315 2019-07-25 2019-07-25 Outpatient MHIE MHIE [id number] 165 [facility] 10:15:00 10:15:00 07 arline Teixeira 2019-04-09 2019-04-09 Office TONI Patel 1.2.840.114 [id number] [facility] 10:59:27 12:19:11 Visit Mahboob AMBULATOR 350.1.13.21 College Y 0.2.7.2.686 of [id number] [facility] 315 e 2019-04-09 2019-04-09 Office TONI Patel 1.2.840.114 [id number] 10:59:27 12:19:11 Visit Mahboob AMBULATOR 350.1.13.21 Y 0.2.7.2.686 [id number] 315 2017-06-29 2017-06-29 Outpatient MHIE MHIE [id number] [facility] 13:45:00 13:45:00 06 arline Teixeira 2017-04-27 2017-04-27 Outpatient MHIE MHIE [id number] [facility] 14:15:00 14:15:00 05 arline Teixeira 2016-11-23 2016-11-23 Outpatient MHIE MHIE [id number] [facility] 15:00:00 15:00:00 04 arline Teixeira 2016-10-05 2016-10-05 Outpatient MHIE MHIE [id number] 15:30:00 15:30:00 03 arline Teixeira 2016-03-18 2016-03-18 Outpatient MHIE MHIE [id number] 10:30:00 10:30:00 02 arline Teixeira 2016-03-08 2016-03-09 Outpt Diag nullFlavo [facility] [id number] [facility] 13:40:00 04:59:00 Services r Outpatient 00 arline Teixeira Sylva 2016-03-08 2016-03-08 Outpatient Cely, MH29 MH29 [id number] 08:40:00 23:59:00 Pepe Gordillo 2016-02-25 2016-02-25 Outpatient MHIE MHIE [id number] 165 [facility] 15:15:00 15:15:00 01 arline [place] Results Test Description Test Time Test Comments Results Result Comments Source Tissue Exam 2022-07-21 18:34:08 Test Item Value Reference Range Interpretation Comme nts Case Report (test code = 104) Surgical Pathology Report Case: [id number] Authorizing Provider: Coby Polanco MD Collected: 07/19/2022 01:33 PM Ordering Location: [facility] Received: 07/19/2022 03:44 PM Pathologist: Carlos Keating MD Specimens: A) - Biopsy, Gastric, bx random r/o H-Pylori B) - Polyp, Gastric, polyp taken with standard forcep C) - Distal Esophagus, bx r/o EOE D) - Proximal Esophagus, bx r/o EOE DIAGNOSIS (test code = 3220) g4djcBKwFRIva3zrPUUwiAMzTsBmCuSbLcBsAa pc dWMxIHtccnRmMVxlcGljOTYwMlxhbnNpXHNwbHRw K0PpxqtuONxqNG5qAU2pySuvdZDggLOtLJBcQoBy c7qnb517dOAqa6klABCMjlesiYs0cHwgA50xi2E1 JduvT0arOJYvQCbrGMOwVSntbDMrWBn2LRCmvKOr wwEkMuLkGQJilUWmiOJ8GTGoSC1sevvkNWyhOGll NCLboaS1QNQmnBBpM8NyGOGrUD5wtwqtAEM3GRsh MZTwHFM1LxZnNFOqq7Ktvbe2NgGdoQIqHEfgmTEg xeqothPpGTIbSAbbQdHiI6VQEXECOCxzTGUhLGFF XF9KH61mQHMpLGIGRR8GP8lwRtZtJZECOXSkIEA1 REUtkkZwHMIfXA7TAxPCEA5YN32OSGZCRWMRBWMJ KZKIUJUOOKfNC5ZZN8PRGGlUHQuuEEBwI3VzOPCt HQOSMYnALJdHGN6AA14VMDVBARCRGI2YPRZCO33B YnhFOK3EAZXASXxKI0FKSTTzSHRIY9EKQCsZIYoa aSXoOGUnESHjYTPhJoWKUWGGSzBmXe5OIMlNQGjV O6ULV7GYJcWHZWtKQpjrY9CDYI3DP72EJQMRVXnu XWETRLQPSpbuXCMfEO8uRS7CQ7LLYIQCQBUCJvAN CsCFE6NEPtXDXK8GFKXOEUAOZNKsBFSYO7GSNPLP MOswQZXDQBrNEW0DWWruXNSnlITrQYXhFQVDY47M Y7dcOMHANTnCKDLBPX9UJ4i2IZWxxpHmJJIcOhNC OAbSCIlUJU5SXYOXYYlDHLUfjpfcPRDdA8UsMCZm LHQGQ5SFKNjKAbtzGLgVRGNSRZRPUX8DH7u4YRLp ozMyBAXnWyAXLFMESRUWG5IPCGyQPXxROIXtzfIb EBArBvRCLOPSFjYuQz2ZWHOGI6rRH4FNCAfCIOrd UPPqpHEtUGVyNYTNE4BYUReYKupwDIEZTQlXHRnt PWBFR0DTYAgwlPWwZBBmOTWLDPTSLFbjRLEPQFwG R6zXYGHrxYHkUSBfZVKYUCmFGMsNJRTWW8OhYZ5G ZZ9LSHrTKFyXXDUdvc44WGL4ScNtd3D2QCX2HZNz VNIdu4gbCQUcjHGhPrRmHnYqHyDpGvbcgQApLWUq KePdd5wty521fOGjp3eyTKOgUnA5oTKsPRFneJYa I318TZMhNDoaz6ffe7JsBSTenGJtn0M8XTMNyufp wAq3tZbrW68ts6Y0LrceL5xjFMVrZOLiV7IlCY6m OHUwBij4OQC4ARM4NSFaORDaJ8LxJX2mNDVceQHt LSi7j9vetQfmROXkRQG5s3cpWIgfrjGnGX1dtw1d cCb8n1ysyfLnIKNgIBBtnGFUIYSfL0JvdYzcZh2n fQg4mTwbCywjIXY5Phb9MJ7wtp23ssb9ePbbMGXy cmkqOzP5HChhGXWkrcepFRe2FPjiNAScaFA2WAAo vYOjG8ElRICpDK4yodw8CTP5SSwuPMHvAkW1UALk bHJhYTEwyQfxZFwga117LET4AzSnEU3lS3Mkt4E6 lA7sgPWjDIGscZLbXqEcPOQueh7ccMMwZUhmt3Os GSU9fyX0tNFitMVmQMUrEoU0OLaoSU6rkq38XINq ACW7to9buRXsxWdhkxWnxIHiLSihN4CmCLAze645 VDJpU6GlZIBnn9J4vmSyXmNgQCHcgAK5qmP1ITBb FR5mphksl1bfAGwdNHyuLCEyruC0dzF5VWRitPYp N9MckE4dEJLqPF1fzcwgz7zrZRY5LAnxYIPxEKH9 NjYxLLDpk1Gleao5MaLog9IpuPDdQKywN52pr122 HWUhyjVdJ8bboANsgavtlTUqmveaCUpgapC5XZEx NXbguykbCGLaGTnyX9xgBeHvHDWgfGebIEojz6Xa APEtTXAdZdQwfVLoAGNbIbp8QGFcuYCcHEJrOhPr T7qgeepmTkPTNRInn4drE1pxjQKPyAJkX4UkLHks hiKkKBfjPOrxXLQ9SDO9Vu01OnB4AAWvkq04 CPT Code(s) (test code = 3357) m5zvtDNmXDSkqBQ9LpPkDNMqh0uci7SnyPDb cGFy WNfjaSLvclJxdb17zEX4yV24UJ6uKREfAgQ0YYTo bvM7Alt1GMFcBDPvmGSuI322f8isj1avmqXwlPW1 bKnzUPCnzcwrDxB7VEmdKDPydfwcNLo7MBdwTYFk rSC0YXYpxXTaN3BzPNScEB0iden0FJU7ITccYDOx HrI1TWAbdMZtZJEftZxbOTcil073MAV1UwWfOGRz ezSfsMtnhC7zEbMfDKW0HQVdGJr2GZMohu6= CLINICAL HISTORY (test code = 3356) z0dqmMChULQbtVQ8ZlAtVTZnw4xfa8I sdHBncGFy HXgobJLonfWrgu88gQW7jK42PQ7wLPOfVnJ7CGKi kvJ7Tmc4PDBrYPHkzCDhZ405b3ymr9hilhNnzXX4 QJAwSGVpG0AtQL9zCIDoxAFcW55zbZPbPUV2VIIy PMOosIXlPVStNRW7MMWlkRHxU9zkDFHdSR0yvjsi KRqyRDynCCHurCU6YVZwtVBsP3MtVYGiFFqtTMYj iwk9OqCyUe9vrOWueEjsGYefADOaTIYfLCjvhMRz dhbmibQqDXGyCKUNCSY7zq9mf48zlIAxXQXuCCLv Acu7lIExsXIcWHOjJFNah5anvwIsSJ8jEGPpm7Ys RDJkaX1cUONtbv3= GROSS DESCRIPTION (test code = t0hurUIdZMYpiQRDVGMzV6xcbpDoCWTobEAe [facility] [id number]) hdhgCXjmUB3tXJ5mqGymvKBaxQFmZG5VHZGbEvYz KHLqiYIvfmEgGzDiLLDrfZWvyUE3UEItFF4fqwca RQywSBtlJWXuajV1PICyvRFqE8FhCWSuFU2vnqid JLT2SAicwN0smdHKRatlZu0ovTRjtWbpUiMuOiBl DUTgAGMwTEXrpRjcWPSwFMu8tB6WKwvuR44ms8S0 Snd0GGRpGGNyY5PeEN9sTJBfdJFzR37PMthfXJX4 MPEYRtusEDMhIP2Fm4veIHCxnTWjALY6MZoccPSb JOSfHWRxVUp7UAFwOTslxDLcMF0bdIhuYnducZqm t5LenNZzSPqoEOBxBJLhVJnsRURiJE1CXmZaUWT7 EVZwFLZjUYp3SIb4IF7WXjWnPUXuBDbgEPs1MYPl VMf3TCapAW4BBZNgPjErEiD7FeC7GYLyYiXnKJJv XaDlONFgGOKbAWsuBKmmpAXjAE3leKoobMPlasBE PjXSbS1mi4pxCLchk8DidINaHBRfgeDEBzxzySlg TmVzdERvYzEgDQpcbHRycGFyXGxpbjBccmluMCAN ClxsdHJjaFxjZjFcZnMyMCBSZWNlaXZlZCBpbiBm z5NcCWpqslKvESGonNItJQmiiHhzqYrzPBQvbXtl tuZrD3Z6kcUtLT6lSMHnGAGtX3CuMNRlZ86uZDAz gC2rYNWbCP5oYMi6FQEdYZQxNnvcS6ZgdYYrQaGm EWZcXO05vWMklNohGDTddiLmq1N7RQZwj1S1ZEOl cvVoiFNriOSicMHtj0TlvI8wUQOtMBEaKUPgXcKe cDGvzvQiolClbHQtdGDukD5gsjFou08cGYjitCOv IHYzZPTpaSAjiUW5DCUbfK1rgG73qlEhjbPPMY2o aOTfMH7YNLVmtjVZYnngKpDtQySyOfMWRgahgMYg wrqhnUdkAhKaiHCtRcAjsGythA47MXYwsBKlFKA3 BI4tCFXbzjkeEUYvXHMeTLK5NNphlV12aYAfMILm QQHrbZJmwL0Sa2kcZLCruUSeHED9SDyrtHYtYHCk UJZjHWjcDbGwD0HQEFAzURvbPKWjBeMdJJz5PKsg S8ZLYCBnDQAhDOO8KiVeSkH5JRv2ITDUQr3nTjYv TDKsEcNxSFR1OSXkQXnxqNTjOMgdEmAMavxqcJCh ADYtNFfdscI1KHLwTUFetXqohA8uEb3mWY9euKBs GQjqo9KuhCXdIIKnwdQNLtlpaNliJbVizLBkOkEb DQpcbHRycGFyXGxpbjBccmluMCANClxsdHJjaFxj GgNsZtIeGESBYSDylWZhXBRxuiCtz8KhJMnzqrIb IZXjxZVzFUeycYixwZexOJGccNwyosZaZ9H5aaYw YA7gGAAaCGSrW4AuNNArN87kJELedI9fJDXyVL1v WKq5HYFpNCIjObhzC1TubQYrEwLxg9h0sQZcvVPv LIIrMqCgsJVkRwUquHFiJoIeV09diZViJSLbKwTj yUwxx0CcEZOxHOrvKN87YRU5wOcrfAGcknGsbKJh hOH9KAWkiX8kcU73ezChfvSZON6nnHTlQU3RZZKz ciANClxjZjBcZnMyMiANClxwbGFpblxlcGljTmVz [file] VCAoQVNDUCkNClxwbGFpblxlcGljTmVzdERvYzBc sAhfnI45NBWmoTEfNQU3XH8dUJBddnzjVSRiPIGe HXL9TVllpD50uHGfDZHcYTVdsDHwnF7CYNTwFBV0 IKbysD56oCRlCP2MJCQhXNN5TUJmxYFaBLH3UT8b fQ0KfQ== MICROSCOPIC DESCRIPTION (test code = p1jwoVLiYRKvdLK9DfPzMFVer4yvj0 BsdHBncGFy 3371) IOahtGVbldAicx01zCH1sG58WJ2sQMQsAfK5JSTh ogR1Imb2HGTxRSCkiGGjU999q6xxe2imsxZuhWO2 dZghEIDzavbzUdA9ZByyKZProyemRUn5USykNNYw ySK4TQFyvMZxA8WkBUVcZU7stvh7YSM6PBawUETu NwH8WJVosOYuINUtiKzbQWrzw134IKU2LrVkIEWv npTskDuptO3qCfPcACHMYYNju4GkHPMvPZMhdaki YXJkXHBhcn0= [facility]ISS[facility] [id number] 18:34:08Surgical Pathology Report Case: [id number] Authorizing Provider: Coby Polanco MD Collected: 07/19/2022 01:33 PM Ordering Location: [facility] Received: 07/19/2022 03:44 PM Pathologist: Carlos Keating MD Specimens: A) - Biopsy, Gastric, bx random r/o H-Pylori B) - Polyp, Gastric, polyp taken with standard forcep C) - Distal Esophagus, bx r/o EOE D) - Proximal Esophagus, bx r/o EOE A. STOMACH, RANDOM BIOPSIES: - ANTRAL MUCOSA WITH REACTIVE GASTROPATHY - OXYNTIC MUCOSA WITH NOSIGNIFICANT DIAGNOSTIC ABNORMALITY - NEGATIVE FOR HELICOBACTER PYLORI ORGANISMS BY H&E STAIN - NEGATIVE FOR INTESTINAL METAPLASIA, DYSPLASIA, MALIGNANCYB. STOMACH, POLYP, BIOPSY: - FUNDIC GLAND POLYPC. ESOPHAGUS, DISTAL, BIOPSY: - REFLUX ESOPHAGITIS - NEGATIVE FOR EOSINOPHILIAD. ESOPHAGUS, PROXIMAL, BIOPSY: - REFLUX ESOPHAGITIS - NEGATIVE FOR EOSINOPHILIA Signing Pathologist Direct Phone Line: [phone] signed by Carlos Keating MD on 07/21/2022 at 6:34 [id number] reflux disease, colon cancer screeningA. Biopsy, Gastric.Received in formalin labeled with the patient's name, medical record number and "gastric" are multiple infante soft tissue fragments measuring up to 0.3 cm in greatest dimension, which are submitted in toto in A1.B. Polyp, Gastric.Received in formalin labeled with the patient's name, medical record number and "gastric polyp" is a 0.2 x 0.2 x 0.2 cm infante soft tissue fragment, which is submitted in toto in B1.C. Distal Esophagus.Received in formalin labeled with the patient's name, medical record number and "distal esophagus" are 2 infante soft tissue fragments measuring up to 0.3 cm in greatest dimension, which are submitted in toto in C1.D. Proximal Esophagus.Received in formalin labeled with the patient's name, medical record number and "proximal esophagus" are 2 infante soft tissue fragments measuring up to 0.2 cm in greatest dimension, which are submitted in toto in D1.BRIJESH Landry, HT (ASCP)Performed.BASIC METABOLIC [id number] 13:05:41 Test Item Value Reference Range Interpretation Comments SODIUM (BEAKER) 136 meq/L 136-145 (test code = 381) POTASSIUM 5.6 meq/L 3.5-5.1 H Specimen modera tely (BEAKER) (test hemolyzed code = 379) CHLORIDE (BEAKER) 96 meq/L 98-107 L (test code = 382) CO2 (BEAKER) 24 meq/L 22-29 (test code = 355) BLOOD UREA 24 mg/dL 7-21 H NITROGEN (BEAKER) (test code = 354) CREATININE 6.66 mg/dL 0.57-1.25 H Specimen modera tely (BEAKER) (test hemolyzed code = 358) GLUCOSE RANDOM 190 mg/dL 70-105 H (BEAKER) (test code = 652) CALCIUM (BEAKER) 10.3 mg/dL 8.4-10.2 H (test code = 697) EGFR (BEAKER) 8 Interpretatio n of eGFR (test code = mL/min/1.73 values Stage De scription 1092) sq m Result G1 Lulú l or high >=90 G2 Mildly decreased 60-89 G3a Mild ly to moderately 45-5 9 G3b Moderately to s everely 30-44 G4 Severl y decreased 15-29 G5 Kidney failure <15Reported eGF R is based on the CKD-EPI 2020 equation that d oes not use a race coefficientEsti mated GFR is not as accur ate as Creatinine Damaris olivia in predicting glom erular filtration rate . Estimated GFR is not appl icable for dialysis patien ts Title I Assistant ID - GERRY MPROTHROMBIN TIME/[id number] 12:44:32 Test Item Value Reference Range Interpretation Comments PROTIME (BEAKER) 15.6 seconds 11.9-14.2 H (test code = 759) INR (BEAKER) (test 1.32 See_Comment [Automat ed message] code = 370) The system [employer] generated this result transmitted ref erence range: <=5.90. The reference range was not used to int erpret this result as normal/abnormal . RECOMMENDED COUMADIN/WARFARIN INR THERAPY RANGESSTANDARD DOSE: 2.0 - 3.0 Includes: PROPHYLAXIS for venous thrombosis, systemic embolization; TREATMENT for venous thrombosis and/or pulmonary embolus.HIGH RISK: Target INR is 2.5-3.5 for patients with mechanical heart valves.POC-Glucose [id number] 12:33:07 Test Item Value Reference Range Interpretation Comments POC-Glucose Meter (test 193 mg/dL 70-110 H : TE STED AT [facility] code = 1538) [address] [facility], 770 30: Title I Assistant/Techni nuha ID = [id number] for Shellie King a Lab Interpretation (test Abnormal code = 20063-1) [facility] [id number] 12:33:07 Test Item Value Reference Range Interpretation Comments POC-GLUCOSE METER 193 mg/dL 70-110 H : TESTED A T [facility] [address] (BEAKER) (test code [facility], = 1538) [address]: Title I Assistant/Techni nuha ID = [id number] for Corina guzman Harlanmili Potassium-Stat [id number] 12:29:14 Test Item Value Reference Range Interpretation Comments Potassium (test code = 2823-3) 5.6 meq/L 3.6-5.5 H Lab Interpretation (test code = Abnormal 70445-7) [facility] [id number] 12:29:14 Test Item Value Reference Range Interpretation Comments POTASSIUM (BEAKER) (test code = 5.6 meq/L 3.6-5.5 H 379) [id number] 12:28:40 Test Item Value Reference Range Interpretation Comments HEMOGLOBIN (BEAKER) (test code = 10.1 GM/DL 13.7-17.5 L 410) Title I Assistant ID - [id number]-GLUCOSE [id number] 12:02:55 Test Item Value Reference Range Interpretation Comments POC-GLUCOSE METER 184 mg/dL 70-110 H : TESTED A T [facility] 6720 (BEAKER) (test code = ALPHONSO PANDYA DE, 1538) [address]: Title I Assistant/Techni nuha ID = [id number] for MATTYTacosSTONEELÍAS (MANUAL DIFFERENTIAL)2022-01-26 10:20:54 Test Item Value Reference Range Interpretation Comments NEUTROPHILS - REL (DIFF) (BEAKER) 49 % (test code = 1359) LYMPHOCYTES - REL (DIFF) (BEAKER) 38 % (test code = 1360) MONOCYTES - REL (DIFF) (BEAKER) 6 % (test code = 1361) EOSINOPHILS - REL (DIFF) (BEAKER) 4 % (test code = 1362) BASOPHILS - REL (DIFF) (BEAKER) 1 % (test code = 1363) MYELOCYTES-REL (DIFF) (BEAKER) 1 % 0-0 H (test code = 1594) BANDS - REL (DIFF) (BEAKER) (test 1 % 0-10 code = 1348) NEUTROPHILS - ABS (DIFF) (BEAKER) 2.99 K/ L 1.80-8.00 (test code = 1365) LYMPHOCYTES - ABS (DIFF) (BEAKER) 2.32 K/ L 1.48-4.50 (test code = 1366) MONOCYTES - ABS (DIFF) (BEAKER) 0.37 K/ L 0.00-1.30 (test code = 1367) EOSINOPHILS - ABS (DIFF) (BEAKER) 0.24 K/ L 0.00-0.50 (test code = 1368) BASOPHILS - ABS (DIFF) (BEAKER) 0.06 K/ L 0.00-0.20 (test code = 1369) BANDS-ABS (DIFF) (BEAKER) (test 0.1 K/ L 0.0-0.8 code = 1349) MYELOCYTES-ABS (DIFF) (BEAKER) 0.06 K/ L 0.00-0.00 H (test code = 1593) TOTAL COUNTED (BEAKER) (test code = 100 1351) BANDS + SEGMENTED NEUTROPHILS 3.05 (BEAKER) (test code = 1352) WBC MORPHOLOGY (BEAKER) (test code Normal = 487) PLT MORPHOLOGY (BEAKER) (test code Normal = 486) RBC MORPHOLOGY (BEAKER) (test code Normal = 762) HEMOGLOBIN AND [id number] 08:16:51 Test Item Value Reference Range Interpretation Comments HEMOGLOBIN (BEAKER) (test code = 8.7 GM/DL 13.7-17.5 L 410) HEMATOCRIT (BEAKER) (test code = 28.5 % 40.1-51.0 L 411) CBC WITH PLATELET COUNT + MANUAL [id number] 08:16:51 Test Item Value Reference Range Interpretation Comments WHITE BLOOD CELL COUNT (BEAKER) 6.1 K/ L 3.5-10.5 (test code = 775) RED BLOOD CELL COUNT (BEAKER) 2.75 M/ L 4.63-6.08 L (test code = 761) HEMOGLOBIN (BEAKER) (test code = 8.7 GM/DL 13.7-17.5 L 410) HEMATOCRIT (BEAKER) (test code = 28.5 % 40.1-51.0 L 411) MEAN CORPUSCULAR VOLUME (BEAKER) 103.6 fL 79.0-92.2 H (test code = 753) MEAN CORPUSCULAR HEMOGLOBIN 31.6 pg 25.7-32.2 (BEAKER) (test code = 751) MEAN CORPUSCULAR HEMOGLOBIN CONC 30.5 GM/DL 32.3-36.5 L (BEAKER) (test code = 752) RED CELL DISTRIBUTION WIDTH 13.9 % 11.6-14.4 (BEAKER) (test code = 412) PLATELET COUNT (BEAKER) (test 176 K/CU MM 150-450 code = 756) MEAN PLATELET VOLUME (BEAKER) 11.1 fL 9.4-12.4 (test code = 754) NUCLEATED RED BLOOD CELLS 0 /100 WBC 0-0 (BEAKER) (test code = 413) RAD, CHEST, 1 VIEW, NON [id number] 07:40:00Reason for exam:->post deviceShould this be performed at the bedside?->Yes [facility] 1950 Sex: MFINAL REPORT TECHNIQUE: Frontal view of the chest. INDICATION: post device COMPARISON:Prior day. DISCUSSION:Limited evaluation due to portable technique. Lines and hardware: Stable.Heart and mediastinum: Stable.Lungs and pleura: Stable small to moderate left effusion/basilar consolidation. No pneumothorax. Trace right effusion. Mild vascular prominence.Soft tissues and bones: No acute abnormality. IMPRESSION:Stable exam Signed: Lexa Carvajal Verified Date/Time: 01/26/2022 07:40:01 Reading Location: [facility] Radiology Reading Room POCT-GLUCOSE [id number] 07:35:30 Test Item Value Reference Range Interpretation Comments POC-GLUCOSE METER 124 mg/dL 70-110 H : TESTED A T [facility] 6720 (BEAKER) (test code = [place], 1538) [id number]: Title I Assistant/Techni nuha ID = [id number] for ELÍAS BLOOM BASIC METABOLIC [id number] 05:25:26 Test Item Value Reference Range Interpretation Comments SODIUM (BEAKER) 140 meq/L 136-145 (test code = 381) POTASSIUM (BEAKER) 5.3 meq/L 3.5-5.1 H (test code = 379) CHLORIDE (BEAKER) 99 meq/L 98-107 (test code = 382) CO2 (BEAKER) (test 30 meq/L 22-29 H code = 355) BLOOD UREA NITROGEN 31 mg/dL 7-21 H (BEAKER) (test code = 354) CREATININE (BEAKER) 8.06 mg/dL 0.57-1.25 H (test code = 358) GLUCOSE RANDOM 125 mg/dL 70-105 H (BEAKER) (test code = 652) CALCIUM (BEAKER) 9.9 mg/dL 8.4-10.2 (test code = 697) EGFR (BEAKER) (test 7 mL/min/1.73 ESTIMAT ED GFR IS code = 1092) sq m NOT ACCURATE CREATININE CLEARANCE IN PREDICTING GLOMERULAR FILTRATION RATE . ESTIMATED GFR I S NOT APPLICABLE FOR DIALYSIS PATIEN TS. Title I Assistant ID - GERRY MRAD, CHEST, 1 VIEW, NON [id number] 03:24:00Reason for exam:->post deviceShould this be performed at the bedside?->Yes [facility] 1950 Sex: MFINAL REPORT RAD, CHEST, 1 VIEW, NON DEPT CLINICAL HISTORY: post device TECHNIQUE: Single view of the chest. COMPARISON: January 19, 2022 IMPRESSION:Right chest multiple lead AICD devices has been revised. Left lung base opacity compatible with consolidation and moderate pleural effusion. Suspect trace right pleural effusion. Right lung aeration is stable. Stable osseous structures. No pneumothorax. Left subclavian stent. Signed: Julio, Ladarius MDReport Verified Date/Time: 01/26/2022 03:24:25 POCT-GLUCOSE [id number] 22:00:57 Test Item Value Reference Range Interpretation Comments POC-GLUCOSE METER 102 mg/dL 70-110 : Notified RN/MD: ([facility]) (test code = TESTED AT [place] [id number]) [facility], [id number]: Title I Assistant/Techni nuha ID = [id number] for SA KIAN PACHECO POCT-GLUCOSE [id number] 16:18:42 Test Item Value Reference Range Interpretation Comments POC-GLUCOSE METER 117 mg/dL 70-110 H : TESTED A T [facility] 6720 ([facility]) (test code = [facility], 1538) [id number]: Title I Assistant/Techni nuha ID = [id number] for Me aparnaHailee bhaktaody POCT-GLUCOSE [id number] 14:22:36 Test Item Value Reference Range Interpretation Comments POC-GLUCOSE METER 120 mg/dL 70-110 H : TESTED A T [facility] 6720 ([facility]) (test code = [facility], 1538) [address]: Title I Assistant/Techni nuha ID = [id number] for CA Myron PETER BASIC METABOLIC [id number] 12:15:22 Test Item Value Reference Range Interpretation Comments SODIUM (BEAKER) 136 meq/L 136-145 (test code = 381) POTASSIUM (BEAKER) 5.0 meq/L 3.5-5.1 (test code = 379) CHLORIDE (BEAKER) 96 meq/L 98-107 L (test code = 382) CO2 (BEAKER) (test 29 meq/L 22-29 code = 355) BLOOD UREA NITROGEN 26 mg/dL 7-21 H (BEAKER) (test code = 354) CREATININE (BEAKER) 7.08 mg/dL 0.57-1.25 H (test code = 358) GLUCOSE RANDOM 136 mg/dL 70-105 H (BEAKER) (test code = 652) CALCIUM (BEAKER) 9.8 mg/dL 8.4-10.2 (test code = 697) EGFR (BEAKER) (test 8 mL/min/1.73 ESTIMAT ED GFR IS code = 1092) sq m NOT ACCURATE CREATININE CLEARANCE IN PREDICTING GLOMERULAR FILTRATION RATE . ESTIMATED GFR I S NOT APPLICABLE FOR DIALYSIS PATIEN TS. Title I Assistant ID - [id number] TIME/[id number] 11:46:20 Test Item Value Reference Range Interpretation Comments PROTIME (BEAKER) 18.5 seconds 11.9-14.2 H (test code = 759) INR (BEAKER) (test 1.57 See_Comment [Automat ed message] code = 370) The system [employer] generated this result transmitted ref erence range: <=5.90. The reference range was not used to int erpret this result as normal/abnormal . RECOMMENDED COUMADIN/WARFARIN INR THERAPY RANGESSTANDARD DOSE: 2.0 - 3.0 Includes: PROPHYLAXIS for venous thrombosis, systemic embolization; TREATMENT for venous thrombosis and/or pulmonary embolus.HIGH RISK: Target INR is 2.5-3.5 for patients with mechanical heart valves.POCT-GLUCOSE [id number] 17:48:28 Test Item Value Reference Range Interpretation Comments POC-GLUCOSE METER 92 mg/dL 70-110 : TESTED A T [facility] 6720 ([employer]) (test code = [facility] [employer] [facility], 1538) [address]: Title I Assistant/Techni nuha ID = [id number] for Vinny Bar POCT-GLUCOSE [id number] 12:06:44 Test Item Value Reference Range Interpretation Comments POC-GLUCOSE METER 170 mg/dL 70-110 H : TESTED A T [facility] 6720 ([employer]) (test code = [facility] [employer] [facility], 1538) [address]: Title I Assistant/Techni nuha ID = [id number] for ZA VALA, ERANDY POCT-GLUCOSE [id number] 10:31:17 Test Item Value Reference Range Interpretation Comments POC-GLUCOSE METER 183 mg/dL 70-110 H : TESTED A T [facility] 6720 ([employer]) (test code = [facility] [employer] [facility], 1538) [id number]: Title I Assistant/Techni nuha ID = [id number] for ZA VALA, ERANDY HEMOGLOBIN [id number] 09:56:41 Test Item Value Reference Range Interpretation Comments HEMOGLOBIN A1C 5.4 % See_Comment [Automated m essage] ELECTROPHORESIS (BEAKER) The system which (test code = 3811) generated this result transmitted ref erence range: <=5.6%. The reference range was not used to int erpret this result as normal/abnormal . "The A1c is measured using a [facility] method. HbA1c value equal to or greater than 6.5% as thediagnosis cutoff for diabetes. An HbA1c value of 5.7- 6.4% indicates increased risk for diabetes (prediabetes)."Title I Assistant ID - ADMPOCT- GLUCOSE [id number] 07:37:27 Test Item Value Reference Range Interpretation Comments POC-GLUCOSE METER 91 mg/dL 70-110 : TESTED A T [facility] 6720 (BEAKER) (test code = [place], 1538) [address]: Title I Assistant/Techni nuha ID = [id number] for AURELIA MOSLEY CBC (HEMOGRAM ONLY)2022-01-21 06:44:48 Test Item Value Reference Range Interpretation Comments WHITE BLOOD CELL COUNT (BEAKER) 5.0 K/ L 3.5-10.5 (test code = 775) RED BLOOD CELL COUNT (BEAKER) 2.61 M/ L 4.63-6.08 L (test code = 761) HEMOGLOBIN (BEAKER) (test code = 8.4 GM/DL 13.7-17.5 L 410) HEMATOCRIT (BEAKER) (test code = 27.5 % 40.1-51.0 L 411) MEAN CORPUSCULAR VOLUME (BEAKER) 105.4 fL 79.0-92.2 H (test code = 753) MEAN CORPUSCULAR HEMOGLOBIN 32.2 pg 25.7-32.2 (BEAKER) (test code = 751) MEAN CORPUSCULAR HEMOGLOBIN CONC 30.5 GM/DL 32.3-36.5 L (BEAKER) (test code = 752) RED CELL DISTRIBUTION WIDTH 14.3 % 11.6-14.4 (BEAKER) (test code = 412) PLATELET COUNT (BEAKER) (test 168 K/CU MM 150-450 code = 756) MEAN PLATELET VOLUME (BEAKER) 11.6 fL 9.4-12.4 (test code = 754) NUCLEATED RED BLOOD CELLS 0 /100 WBC 0-0 (BEAKER) (test code = 413) TSH/FREE T4 IF [id number] 06:40:29 Test Item Value Reference Range Interpretation Comments THYROID STIMULATING HORMONE 2.427 uIU/mL 0.350-4.940 (BEAKER) (test code = 772) Title I Assistant ID - GERRY MCOMPREHENSIVE METABOLIC [id number] 06:39:40 Test Item Value Reference Range Interpretation Comments TOTAL PROTEIN 6.2 gm/dL 6.0-8.3 (BEAKER) (test code = 770) ALBUMIN (BEAKER) 3.8 g/dL 3.5-5.0 (test code = 1145) ALKALINE PHOSPHATASE 49 U/L 40-150 (BEAKER) (test code = 346) BILIRUBIN TOTAL 0.5 mg/dL 0.2-1.2 (BEAKER) (test code = 377) SODIUM (BEAKER) (test 140 meq/L 136-145 code = 381) POTASSIUM (BEAKER) 5.1 meq/L 3.5-5.1 (test code = 379) CHLORIDE (BEAKER) 99 meq/L 98-107 (test code = 382) CO2 (BEAKER) (test 30 meq/L 22-29 H code = 355) BLOOD UREA NITROGEN 27 mg/dL 7-21 H (BEAKER) (test code = 354) CREATININE (BEAKER) 6.70 mg/dL 0.57-1.25 H (test code = 358) GLUCOSE RANDOM 98 mg/dL 70-105 (BEAKER) (test code = 652) CALCIUM (BEAKER) 9.6 mg/dL 8.4-10.2 (test code = 697) AST (SGOT) (BEAKER) 16 U/L 5-34 (test code = 353) ALT (SGPT) (BEAKER) 13 U/L 6-55 (test code = 347) EGFR (BEAKER) (test 8 mL/min/1.73 ESTIMAT ED GFR IS code = 1092) sq m NOT ACCURATE CREATININE CLEARANCE IN PREDICTING GLOMERULAR FILTRATION RATE . ESTIMATED GFR I S NOT APPLICABLE FOR DIALYSIS PATIEN TS. Title I Assistant ID - GERRY MPROTHROMBIN TIME/[id number] 06:09:35 Test Item Value Reference Range Interpretation Comments PROTIME (BEAKER) 31.4 seconds 11.9-14.2 H (test code = 759) INR (BEAKER) (test 3.07 See_Comment [Automat ed message] code = 370) The system [employer] generated this result transmitted ref erence range: <=5.90. The reference range was not used to int erpret this result as normal/abnormal . RECOMMENDED COUMADIN/WARFARIN INR THERAPY RANGESSTANDARD DOSE: 2.0 - 3.0 Includes: PROPHYLAXIS for venous thrombosis, systemic embolization; TREATMENT for venous thrombosis and/or pulmonary embolus.HIGH RISK: Target INR is 2.5-3.5 for patients with mechanical heart valves.POCT-GLUCOSE [id number] 21:26:30 Test Item Value Reference Range Interpretation Comments POC-GLUCOSE METER 167 mg/dL 70-110 H : TESTED A T [facility] 6720 (BEAKER) (test code = [facility], 1538) [address]: Title I Assistant/Techni nuha ID = [id number] for WISAM BAI POCT-GLUCOSE [id number] 18:20:34 Test Item Value Reference Range Interpretation Comments POC-GLUCOSE METER 133 mg/dL 70-110 H : TESTED A T [facility] 6720 (BEAKER) (test code = [facility], 1538) [address]: Title I Assistant/Techni nuha ID = [id number] for BETTE TOLBERT CBC W/PLT COUNT & AUTO [id number] 14:32:12 Test Item Value Reference Range Interpretation Comments WHITE BLOOD CELL COUNT (BEAKER) 5.4 K/ L 3.5-10.5 (test code = 775) RED BLOOD CELL COUNT (BEAKER) 2.55 M/ L 4.63-6.08 L (test code = 761) HEMOGLOBIN (BEAKER) (test code = 8.1 GM/DL 13.7-17.5 L 410) HEMATOCRIT (BEAKER) (test code = 26.2 % 40.1-51.0 L 411) MEAN CORPUSCULAR VOLUME (BEAKER) 102.7 fL 79.0-92.2 H (test code = 753) MEAN CORPUSCULAR HEMOGLOBIN 31.8 pg 25.7-32.2 (BEAKER) (test code = 751) MEAN CORPUSCULAR HEMOGLOBIN CONC 30.9 GM/DL 32.3-36.5 L (BEAKER) (test code = 752) RED CELL DISTRIBUTION WIDTH 14.2 % 11.6-14.4 (BEAKER) (test code = 412) PLATELET COUNT (BEAKER) (test 158 K/CU MM 150-450 code = 756) MEAN PLATELET VOLUME (BEAKER) 10.8 fL 9.4-12.4 (test code = 754) NUCLEATED RED BLOOD CELLS 0 /100 WBC 0-0 (BEAKER) (test code = 413) NEUTROPHILS RELATIVE PERCENT 62 % (BEAKER) (test code = 429) LYMPHOCYTES RELATIVE PERCENT 24 % (BEAKER) (test code = 430) MONOCYTES RELATIVE PERCENT 9 % (BEAKER) (test code = 431) EOSINOPHILS RELATIVE PERCENT 3 % (BEAKER) (test code = 432) BASOPHILS RELATIVE PERCENT 1 % (BEAKER) (test code = 437) NEUTROPHILS ABSOLUTE COUNT 3.39 K/ L 1.78-5.38 (BEAKER) (test code = 670) LYMPHOCYTES ABSOLUTE COUNT 1.33 K/ L 1.32-3.57 (BEAKER) (test code = 414) MONOCYTES ABSOLUTE COUNT (BEAKER) 0.49 K/ L 0.30-0.82 (test code = 415) EOSINOPHILS ABSOLUTE COUNT 0.17 K/ L 0.04-0.54 (BEAKER) (test code = 416) BASOPHILS ABSOLUTE COUNT (BEAKER) 0.03 K/ L 0.01-0.08 (test code = 417) IMMATURE GRANULOCYTES-RELATIVE 1 % 0-1 PERCENT (BEAKER) (test code = 2801) HEPATITIS B SURFACE [id number] 13:05:05 Test Item Value Reference Range Interpretation Comments HEPATITIS B SURFACE ANTIGEN (2) Nonreactive Nonreactive (BEAKER) (test code = 2585) Specimen is considered negative for HBsAg.HEMOGLOBIN [id number] 12:58:20 Test Item Value Reference Range Interpretation Comments HEMOGLOBIN A1C 5.4 % See_Comment [Automated m essage] ELECTROPHORESIS (BEAKER) The system which (test code = 3811) generated this result transmitted ref erence range: <=5.6%. The reference range was not used to int erpret this result as normal/abnormal . "The A1c is measured using a [facility]-certified method. HbA1c value equal to or greater than 6.5% as thediagnosis cutoff for diabetes. An HbA1c value of 5.7- 6.4% indicates increased risk for diabetes (prediabetes)."Title I Assistant ID - ADMHIGH SENSITIVITY TROPONIN [id number] 12:49:22 Test Item Value Reference Range Interpretation Comments HIGH SENSITIVITY 7 pg/ml See_Comment [Automated message] TROPONIN I (test code = The system which [id number]) generated this result transmitted ref erence range: <=35. Th e reference range was not used to interpr et this result as normal/abnormal . Title I Assistant ID - BSThe PERFORMANCE REPORTER STAT High Sensitivity Troponin-I results should be used in conjunctionwith other diagnostic information such as ECG, clinical observations and information, and patient symptoms to aid in the diagnosis of [facility].POCT-GLUCOSE [id number] 10:34:43 Test Item Value Reference Range Interpretation Comments POC-GLUCOSE METER 116 mg/dL 70-110 H : TESTED A T [facility] 6720 (BEAKER) (test code = ALPHONSO Caicedo [place], 1538) [address]: Title I Assistant/Techni nuha ID = [id number] for MAGNUS TOMAS AURELIA 2D Echo W/Doppler(CW/PW/Color)2022-01-20 10:19:28Ejection FractionSLEH ECHO HEARTLAB MKCKESSON [facility] [id number] 08:15:45 Test Item Value Reference Range Interpretation Comments TRIGLYCERIDES (BEAKER) (test code = 116 mg/dL 540) CHOLESTEROL (BEAKER) (test code = 68 mg/dL 631) HDL CHOLESTEROL (BEAKER) (test code 22 mg/dL = 976) LDL CHOLESTEROL CALCULATED (BEAKER) 23 mg/dL (test code = 633) Triglyceride Reference Range: Low Risk <150 Borderline 150-199 High Risk 200- 499 Very High Risk >=500Cholesterol Reference Range: Low Risk <200 Borderline 200-239 High Risk >240HDL Cholesterol Reference Range: Low Risk >=60 High Risk <40LDL Cholesterol Reference Range: Optimal <100 Near Optimal 100-129 Borderline 130-159 High 160-189 Very High >=190 Title I Assistant ID - BSBASIC METABOLIC [id number] 05:26:52 Test Item Value Reference Range Interpretation Comments SODIUM (BEAKER) 140 meq/L 136-145 (test code = 381) POTASSIUM (BEAKER) 5.8 meq/L 3.5-5.1 H (test code = 379) CHLORIDE (BEAKER) 98 meq/L 98-107 (test code = 382) CO2 (BEAKER) (test 28 meq/L 22-29 code = 355) BLOOD UREA NITROGEN 46 mg/dL 7-21 H (BEAKER) (test code = 354) CREATININE (BEAKER) 9.42 mg/dL 0.57-1.25 H (test code = 358) GLUCOSE RANDOM 120 mg/dL 70-105 H (BEAKER) (test code = 652) CALCIUM (BEAKER) 10.1 mg/dL 8.4-10.2 (test code = 697) EGFR (BEAKER) (test 6 mL/min/1.73 ESTIMAT ED GFR IS code = 1092) sq m NOT ACCURATE CREATININE CLEARANCE IN PREDICTING GLOMERULAR FILTRATION RATE . ESTIMATED GFR I S NOT APPLICABLE FOR DIALYSIS PATIEN TS. Title I Assistant ID - LILY LPROTHROMBIN TIME/[id number] 04:50:31 Test Item Value Reference Range Interpretation Comments PROTIME (BEAKER) 33.8 seconds 11.9-14.2 H (test code = 759) INR (BEAKER) (test 3.37 See_Comment [Automat ed message] code = 370) The system [employer] generated this result transmitted ref erence range: <=5.90. The reference range was not used to int erpret this result as normal/abnormal . RECOMMENDED COUMADIN/WARFARIN INR THERAPY RANGESSTANDARD DOSE: 2.0 - 3.0 Includes: PROPHYLAXIS for venous thrombosis, systemic embolization; TREATMENT for venous thrombosis and/or pulmonary embolus.HIGH RISK: Target INR is 2.5-3.5 for patients with mechanical heart valves.POCT-GLUCOSE [id number] 21:28:24 Test Item Value Reference Range Interpretation Comments POC-GLUCOSE METER 178 mg/dL 70-110 H : TESTED A T [facility] 6720 (BEAKER) (test code = [place], 1538) [address]: Title I Assistant/Techni nuha ID = [id number] for FrankyEmiliayvonne (contract) Ali chucho [id number] 20:02:18 Test Item Value Reference Range Interpretation Comments POTASSIUM (BEAKER) (test code = 3.7 meq/L 3.5-5.1 379) Title I Assistant ID - DAVIDEOCT-GLUCOSE [id number] 18:51:19 Test Item Value Reference Range Interpretation Comments POC-GLUCOSE METER 161 mg/dL 70-110 H : Notified RN/MD: TESTED (BEAKER) (test code AT [facility] [address] [place] = 1538) [place], [address]: Title I Assistant/Techni nuha ID = [id number] for DESTINEE MCMANUS HIGH SENSITIVITY TROPONIN [id number] 15:49:27 Test Item Value Reference Range Interpretation Comments HIGH SENSITIVITY 9 pg/ml See_Comment [Automated message] TROPONIN I (test code = The system which [id number]) generated this result transmitted ref erence range: <=35. Th e reference range was not used to interpr et this result as normal/abnormal . Title I Assistant ID - BSThe PERFORMANCE REPORTER STAT High Sensitivity Troponin-I results should be used in conjunctionwith other diagnostic information such as ECG, clinical observations and information, and patient symptoms to aid in the diagnosis of [facility].BASIC METABOLIC [id number] 15:47:28 Test Item Value Reference Range Interpretation Comments SODIUM (BEAKER) 141 meq/L 136-145 (test code = 381) POTASSIUM (BEAKER) 6.5 meq/L 3.5-5.1 HH (test code = 379) CHLORIDE (BEAKER) 99 meq/L 98-107 (test code = 382) CO2 (BEAKER) (test 30 meq/L 22-29 H code = 355) BLOOD UREA NITROGEN 42 mg/dL 7-21 H (BEAKER) (test code = 354) CREATININE (BEAKER) 8.60 mg/dL 0.57-1.25 H (test code = 358) GLUCOSE RANDOM 131 mg/dL 70-105 H (BEAKER) (test code = 652) CALCIUM (BEAKER) 10.1 mg/dL 8.4-10.2 (test code = 697) EGFR (BEAKER) (test 6 mL/min/1.73 ESTIMAT ED GFR IS code = 1092) sq m NOT ACCURATE CREATININE CLEARANCE IN PREDICTING GLOMERULAR FILTRATION RATE . ESTIMATED GFR I S NOT APPLICABLE FOR DIALYSIS PATIEN TS. Title I Assistant ID - [id number] 15:34:01 Test Item Value Reference Range Interpretation Comments PROTIME (BEAKER) (test 34.4 seconds 11.9-14.2 H code = 759) INR (BEAKER) (test 3.44 See_Comment [Automat ed code = 370) message] The sy stem which generated this result transmitted reference range : <=5.90. The reference range was not used to interpret this result as normal/abnormal . PARTIAL THROMBOPLASTIN 65.7 seconds 22.5-36.0 H TIME (BEAKER) (test code = 760) RECOMMENDED COUMADIN/WARFARIN INR THERAPY RANGESSTANDARD DOSE: 2.0 - 3.0 Includes: PROPHYLAXIS for venous thrombosis, systemic embolization; TREATMENT for venous thrombosis and/or pulmonary embolus.HIGH RISK: Target INR is 2.5-3.5 for patients with mechanical heart valves.CBC W/PLT COUNT & AUTO [id number] 15:25:01 Test Item Value Reference Range Interpretation Comments WHITE BLOOD CELL COUNT (BEAKER) 7.6 K/ L 3.5-10.5 (test code = 775) RED BLOOD CELL COUNT (BEAKER) 2.89 M/ L 4.63-6.08 L (test code = 761) HEMOGLOBIN (BEAKER) (test code = 9.4 GM/DL 13.7-17.5 L 410) HEMATOCRIT (BEAKER) (test code = 30.0 % 40.1-51.0 L 411) MEAN CORPUSCULAR VOLUME (BEAKER) 103.8 fL 79.0-92.2 H (test code = 753) MEAN CORPUSCULAR HEMOGLOBIN 32.5 pg 25.7-32.2 H (BEAKER) (test code = 751) MEAN CORPUSCULAR HEMOGLOBIN CONC 31.3 GM/DL 32.3-36.5 L (BEAKER) (test code = 752) RED CELL DISTRIBUTION WIDTH 14.3 % 11.6-14.4 (BEAKER) (test code = 412) PLATELET COUNT (BEAKER) (test 191 K/CU MM 150-450 code = 756) MEAN PLATELET VOLUME (BEAKER) 11.6 fL 9.4-12.4 (test code = 754) NUCLEATED RED BLOOD CELLS 0 /100 WBC 0-0 (BEAKER) (test code = 413) NEUTROPHILS RELATIVE PERCENT 64 % (BEAKER) (test code = 429) LYMPHOCYTES RELATIVE PERCENT 23 % (BEAKER) (test code = 430) MONOCYTES RELATIVE PERCENT 8 % (BEAKER) (test code = 431) EOSINOPHILS RELATIVE PERCENT 4 % (BEAKER) (test code = 432) BASOPHILS RELATIVE PERCENT 1 % (BEAKER) (test code = 437) NEUTROPHILS ABSOLUTE COUNT 4.84 K/ L 1.78-5.38 (BEAKER) (test code = 670) LYMPHOCYTES ABSOLUTE COUNT 1.71 K/ L 1.32-3.57 (BEAKER) (test code = 414) MONOCYTES ABSOLUTE COUNT (BEAKER) 0.63 K/ L 0.30-0.82 (test code = 415) EOSINOPHILS ABSOLUTE COUNT 0.29 K/ L 0.04-0.54 (BEAKER) (test code = 416) BASOPHILS ABSOLUTE COUNT (BEAKER) 0.04 K/ L 0.01-0.08 (test code = 417) IMMATURE GRANULOCYTES-RELATIVE 1 % 0-1 PERCENT (BEAKER) (test code = 2801) RAD, CHEST, 1 VIEW, NON [id number] 11:42:00Reason for exam:->chest painShould this be performed at the bedside?->Yes [facility] 1950 Sex: MFINAL REPORT TECHNIQUE: Frontal view of the chest. INDICATION: chest pain COMPARISON:11/06/2019 DISCUSSION:Limited evaluation due to portable technique. Lines and hardware: StableHeart and mediastinum: Stable.Lungs and pleura: Moderate left effusion. Trace right effusion. Vascularprominence. No pneumothorax.Soft tissues and bones: No acute abnormality. IMPRESSION:Moderate left and trace right effusions. Overlying atelectasis. Findings have not significantly changed compared to 11/06/2019. Signed: Lexa Carvajal MDReport Verified Date/Time: 01/19/2022 11:42:07 Reading Location: [facility] Radiology Reading Room ECG/EKG [id number] 10:57:00 Test Item Value Reference Range Interpretation Comments LIS (test code = LIS) Alexandra Sylvester MD 01/25/2022 9:28 AMECG/EKG Interpretation Date/Time: 01/19/2022 10:57 AMPerformed by: Alexandra Sylvester MDAuthorized by: Alexandra Sylvester MD The ECG was interpreted by ED physician. This ECG was not compared with previous ECG(s).The ECG is interpreted as paced. Heart rate is 60 BPM.Abnormal conduction noted: left bundle branch block.Cardwell is left. Clinical Impression: abnormal ECGECG reviewed and does not meet STEMI criteria. Lab Interpretation Abnormal (test code = 76892-8) [facility] [id number] 12:20:51 Test Item Value Reference Range Interpretation Comments POC-GLUCOSE METER 144 mg/dL 70-110 H : TESTED A T [facility] 6720 (BEAKER) (test code [facility], = 1538) [address]: Title I Assistant/Techni nuha ID = [id number] for BASIM LUNDY POCT-GLUCOSE [id number] 10:19:44 Test Item Value Reference Range Interpretation Comments POC-GLUCOSE METER 130 mg/dL 70-110 H : TESTED A T [facility] 6720 (BEAKER) (test code = ALPHONSO Caicedo [facility], 1538) [address]: Title I Assistant/Techni nuha ID = [id number] for Mely ceballosKhoi BASIC METABOLIC [id number] 09:21:46 Test Item Value Reference Range Interpretation [...] S NOT APPLICABLE FOR DIALYSIS PATIEN TS. Title I Assistant ID - EMERSONPROTHROMBIN TIME/[id number] 08:51:30 Test Item Value Reference Range Interpretation Comments PROTIME (BEAKER) 19.2 seconds 11.9-14.2 H (test code = 759) INR (BEAKER) (test 1.64 See_Comment [Automat ed message] code = 370) The system [employer] generated this result transmitted ref erence range: <=5.90. The reference range was not used to int erpret this result as normal/abnormal . RECOMMENDED COUMADIN/WARFARIN INR THERAPY RANGESSTANDARD DOSE: 2.0 - 3.0 Includes: PROPHYLAXIS for venous thrombosis, systemic embolization; TREATMENT for venous thrombosis and/or pulmonary embolus.HIGH RISK: Target INR is 2.5-3.5 for patients with mechanical heart valves.CBC W/PLT COUNT & AUTO [id number] 08:39:28 Test Item Value Reference Range Interpretation [...] PERCENT (BEAKER) (test code = 2801) POCT-GLUCOSE [id number] 07:29:31 Test Item Value Reference Range Interpretation Comments POC-GLUCOSE METER 111 mg/dL 70-110 H : TESTED A T [facility] 67 ([facility]) (test code [facility], = 1538) [address]: Title I Assistant/Techni nuha ID = [id number] for OCHO O, ROSEBELLA POCT-GLUCOSE [id number] 21:54:10 Test Item Value Reference Range Interpretation Comments POC-GLUCOSE METER 159 mg/dL 70-110 H : Notified RN/MD: ([facility]) (test code = TESTED AT [facility] 6720 1538) [facility], [address]: Title I Assistant/Techni nuha ID = [id number] for DORIE REBOLLEDO HEPATITIS B SURFACE [id number] 21:30:30 Test Item Value Reference Range Interpretation Comments HEPATITIS B SURFACE ANTIGEN (2) Nonreactive Nonreactive (BEAKER) (test code = 2585) Specimen is considered negative for HBsAg.BASIC METABOLIC [id number] 21:16:23 Test Item Value Reference Range Interpretation [...] S NOT APPLICABLE FOR DIALYSIS PATIEN TS. Title I Assistant ID - DBCBC (HEMOGRAM ONLY)2021-06-17 20:44:18 Test [...] 0-0 (BEAKER) (test code = 413) POCT-GLUCOSE [id number] 17:31:27 Test Item Value Reference Range Interpretation Comments POC-GLUCOSE METER 121 mg/dL 70-110 H : TESTED Toby T [facility] 6720 (BEAKER) (test code = [place], 1538) [address]: Title I Assistant/Techni nuha ID = [id number] for CHRISTIANO DAMON (CELLAVISION MANUAL DIFF)2021-06-17 14:46:13 [...] CONCENTRATION Adequate (CELLAVISION)(BEAKER) (test code = 3438) Title I Assistant ID - Yi Pepe comments: Slide comments:BASIC METABOLIC [id number] 11:59:33 Test Item Value Reference Range Interpretation [...] S NOT APPLICABLE FOR DIALYSIS PATIEN TS. Title I Assistant ID - PIAYA LPROTHROMBIN TIME/[id number] 11:44:26 Test Item Value Reference Range Interpretation Comments PROTIME (BEAKER) 22.6 seconds 11.9-14.2 H (test code = 759) INR (BEAKER) (test 2.02 See_Comment [Automat ed message] code = 370) The system [employer] generated this result transmitted ref erence range: <=5.90. The reference range was not used to int erpret this result as normal/abnormal . 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 [facility] BASIC METABOLIC [id number] 08:28:00 Test Item Value Reference Range Interpretation [...] code = 9.5 mg/dL 8.0-10.5 N CA) [id number] 08:28:00 Test Item Value Reference Range Interpretation Comments MAGNESIUM (test code = MAG) 2.39 mg/dL 1.8-2.4 N CBC W/O [id number] 07:47:00 Test Item Value Reference Range Interpretation [...] fL 7.0-9.0 H = MPV) CBC W/O [id number] 07:38:00 Test Item Value Reference Range Interpretation [...] = PLT) 193 x10 3/uL 150-400 N [id number] 06:25:00 Test Item Value Reference Range Interpretation Comments GLUBED (test code = 138 MG/DL 70-110 H Performe d by certified GLUBED) 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 [facility] TSH REFLEX TO [id number] 02:17:00 Test Item Value Reference Range Interpretation Comments TSH REFLEX TO FT4 (test code = 1.44 IU/mL 0.42-5.47 N TSHREFLEX) HGBA1C%2020-06-30 02:13:00 Test Item Value Reference Range Interpretation Comments HGBA1C% (test code = HGBA1C%) 5.9 %A1C 4.8-6.0 N CBC W/AUTO [id number] 00:49:00 Test Item Value Reference Range Interpretation [...] REQUIRED (test code NO = MDIFF) RBC [id number] 00:49:00 Test Item Value Reference Range Interpretation Comments POLYCHROMASIA (test code = POLC) SLIGHT POIKILOCYTOSIS (test code = POIK) SLIGHT ANISOCYTOSIS (test code = ANISO) 1+ MACROCYTOSIS (test code = MACR) 1+ TEAR DROP CELLS (test code = TEAR) FEW BASIC METABOLIC [id number] 00:25:00 Test Item Value Reference Range Interpretation [...] 9.3 mg/dL 8.0-10.5 N CA) CBC W/AUTO [id number] 00:16:00 Test Item Value Reference Range Interpretation [...] REQUIRED (test code NO = MDIFF) RBC [id number] 00:16:00 Test Item Value Reference Range Interpretation Comments ANISOCYTOSIS (test code = ANISO) CBC W/AUTO [id number] 00:13:00 Test Item Value Reference Range Interpretation [...] REQUIRED (test code NO = MDIFF) RBC [id number] 00:13:00 Test Item Value Reference Range Interpretation Comments ANISOCYTOSIS (test code = ANISO) AFB CULTURE + SMEAR (NON-SPUTUM)2019-12-09 13:35:00 Test Item Value Reference Range Interpretation Comments CULTURE (BEAKER) (test No acid-fast bacilli code = 1095) isolated in 42 days AFB SMEAR (BEAKER) No acid fast bacilli (test code = 994) seen FUNGUS CULTURE + [id number] 16:48:00 Test Item Value Reference Range Interpretation Comments CULTURE (BEAKER) (test No fungus isolated in code = 1095) 28 days FUNGUS SMEAR (BEAKER) No fungi seen (test code = 1406) RAD, CHEST, 1 VIEW, NON [id number] 11:53:00Reason for exam:->S/p CT surgeryShould this be performed at the bedside?->YesFINAL REPORT RAD, CHEST, 1 VIEW, NON DEPT INDICATION: S/p CT surgery COMPARISON: Prior day's exam FINDINGS: Portable frontal view of the chest. IMPRESSION: Support Lines: Stable. Lungs and pleura: Unchanged airspace and pleural opacities. No pneumothorax.Heart and mediastinum: Stable contours. Stable surgical changes.Additional findings: None. Signed: Dasia Britt MDReport Verified Date/Time: 11/06/2019 11:53:03 Reading Location: [facility] Radiology Reading Room POCT-GLUCOSE [id number] 11:31:00 Test Item Value Reference Range Interpretation Comments POC-GLUCOSE METER 149 mg/dL 70-110 H : TESTED A [facility] 6720 (BEAKER) (test code = ALPHONSO PANDYA DE, 1538) [id number]: Title I Assistant/Techni nuha ID = [id number] for Alrfedo Aguial CBC W/PLT COUNT & AUTO [id number] 10:58:00 Test Item Value Reference Range Interpretation [...] CONCENTRATION Adequate (CELLAVISION)(BEAKER) (test code = 3438) Title I Assistant ID - [email or web address] comments: Slide comments:BASIC METABOLIC PANEL 2019-11-06 05:32:00 [...] S NOT APPLICABLE FOR DIALYSIS PATIEN TS. Title I Assistant ID - OZZY [id number] 05:30:00 Test Item Value Reference Range Interpretation Comments PHOSPHORUS (BEAKER) (test code = 3.3 mg/dL 2.3-4.7 604) Title I Assistant ID - OZZY [id number] 05:30:00 Test Item Value Reference Range Interpretation Comments MAGNESIUM (BEAKER) (test code = 2.2 mg/dL 1.6-2.6 627) Title I Assistant ID - OZZY WPOCT-GLUCOSE [id number] 22:07:00 Test Item Value Reference Range Interpretation Comments POC-GLUCOSE METER 142 mg/dL 70-110 H : TESTED A T [facility] 6720 (BEAKER) (test code = [facility], 1538) 67504: Title I Assistant/Techni nuha ID = [id number] for GO NZALES III, SHAYLA TROPONIN [id number] 17:33:00 Test Item Value Reference Range Interpretation [...] failure, acidosis, acute neurological disease, and persistent tachyarrhythmia.Title I Assistant ID - BSPOCT-GLUCOSE METER 2019-11-05 15:21:00 Test Item Value Reference Range Interpretation Comments POC-GLUCOSE METER 126 mg/dL 70-110 H : TESTED A T [facility] 6720 (BEAKER) (test code = [facility], 1538) 11696: Title I Assistant/Techni nuha ID = [id number] for ELDA DELIO WINDY POCT-GLUCOSE [id number] 12:15:00 Test Item Value Reference Range Interpretation Comments POC-GLUCOSE METER 226 mg/dL 70-110 H : TESTED A T [facility] 6720 (BEAKER) (test code = [facility], 1538) 89902: Title I Assistant/Techni nuha ID = [id number] for CHARANJIT MORGAN BASIC METABOLIC [id number] 08:09:00 Test Item Value Reference Range Interpretation [...] S NOT APPLICABLE FOR DIALYSIS PATIEN TS. Title I Assistant ID - NIMESH CPOCT-GLUCOSE [id number] 08:07:00 Test Item Value Reference Range Interpretation Comments POC-GLUCOSE METER 170 mg/dL 70-110 H : TESTED A T [facility] 6720 (BEAKER) (test code = [facility], 1538) 07791: Title I Assistant/Techni nuha ID = [id number] for CHARANJIT MORGAN [id number] 07:56:00 Test Item Value Reference Range Interpretation Comments PHOSPHORUS (BEAKER) (test code = 4.2 mg/dL 2.3-4.7 604) Title I Assistant ID - NIMESH [id number] 07:56:00 Test Item Value Reference Range Interpretation Comments MAGNESIUM (BEAKER) (test code = 2.4 mg/dL 1.6-2.6 627) Title I Assistant ID - NIMESH CCBC W/PLT COUNT & AUTO [id number] 05:48:00 Test Item Value Reference Range Interpretation [...] 0-1 H PERCENT (BEAKER) (test code = 1711) RAD, CHEST, 1 VIEW, NON [id number] 05:37:00Reason for exam:->Vapotherm, bipapShould this be performed at the bedside?->YesFINAL REPORT RAD, CHEST, 1 VIEW, NON DEPT INDICATION: Vapotherm, bipap COMPARISON: November 03, 2019 FINDINGS: Portable frontal view of the chest. IMPRESSION: Support Lines: Interval removal of right IJ sheath.Lungs and pleura: Airspace and pleural opacities, greater on the left, are unchanged. No pneumothorax.Heart and mediastinum: Stable contours. Additional findings: Right ICD device and left axillary vascular stent. Signed: Ladarius Sanchezeport Verified Date/Time: 11/05/201905:37:42 POCT-GLUCOSE [id number] 21:21:00 Test Item Value Reference Range Interpretation Comments POC-GLUCOSE METER 175 mg/dL 70-110 H : TESTED A T [facility] 6720 (BEAKER) (test code = [facility], 1538) 46350: Title I Assistant/Techni nuha ID = [id number] for Joycelyn tammy Otilia POCT-GLUCOSE [id number] 18:00:00 Test Item Value Reference Range Interpretation Comments POC-GLUCOSE METER 170 mg/dL 70-110 H : TESTED A T [facility] 6720 (BEAKER) (test code = [facility], 1538) 39046: Title I Assistant/Techni nuha ID = [id number] for Do Alfredo chacon ANAEROBIC [id number] 17:27:00 Test Item Value Reference Range Interpretation Comments CULTURE (BEAKER) (test No anaerobes isolated code = 1095) POCT-GLUCOSE [id number] 11:46:00 Test Item Value Reference Range Interpretation Comments POC-GLUCOSE METER 183 mg/dL 70-110 H : TESTED A T [facility] 6720 (BEAKER) (test code = [facility], 1538) 37849: Title I Assistant/Techni nuha ID = [id number] for Do Daniel chaconn CBC W/PLT COUNT & AUTO [id number] 08:59:00 Test Item Value Reference Range Interpretation [...] CONCENTRATION Adequate (CELLAVISION)(BEAKER) (test code = 3438) Title I Assistant ID - Meghna OverholtUser comments: Slide comments:CBC W/PLT COUNT & AUTO [id number] 08:25:00 Test Item Value Reference Range Interpretation [...] CONCENTRATION Adequate (CELLAVISION)(BEAKER) (test code = 3438) Title I Assistant ID - Jaren comments: Slide comments:POCT-GLUCOSE [id number] 08:02:00 Test Item Value Reference Range Interpretation Comments POC-GLUCOSE METER 108 mg/dL 70-110 : TESTED A T [facility] 6720 (BEAKER) (test code = [facility], 1538) 61589: Title I Assistant/Techni nuha ID = [id number] for SAMIRA SUAREZ BASIC METABOLIC [id number] 07:44:00 Test Item Value Reference Range Interpretation [...] S NOT APPLICABLE FOR DIALYSIS PATIEN TS. Title I Assistant ID - GERRY MBASIC METABOLIC [id number] 07:44:00 Test Item Value Reference Range Interpretation [...] S NOT APPLICABLE FOR DIALYSIS PATIEN TS. Title I Assistant ID - GERRY [id number] 07:42:00 Test Item Value Reference Range Interpretation Comments MAGNESIUM (BEAKER) (test code = 2.5 mg/dL 1.6-2.6 627) Title I Assistant ID - GERRY MPOCT-GLUCOSE [id number] 21:32:00 Test Item Value Reference Range Interpretation Comments POC-GLUCOSE METER 196 mg/dL 70-110 H : TESTED A T [facility] 6720 (BEAKER) (test code = [facility]) 50963: Title I Assistant/Techni nuha ID = [id number] for DA CR RIZVIO POCT-GLUCOSE [id number] 16:57:00 Test Item Value Reference Range Interpretation Comments POC-GLUCOSE METER 138 mg/dL 70-110 H : TESTED A T [facility] 6720 (BEAKER) (test code = [facility]) 97740: Title I Assistant/Techni nuha ID = [id number] for HI LL, SHAI POCT-GLUCOSE [id number] 12:53:00 Test Item Value Reference Range Interpretation Comments POC-GLUCOSE METER 229 mg/dL 70-110 H : TESTED A T [facility] 6720 (BEAKER) (test code = [facility]) 89006: Title I Assistant/Techni nuha ID = [id number] for VA PINO, LENNOX POCT-GLUCOSE [id number] 07:48:00 Test Item Value Reference Range Interpretation Comments POC-GLUCOSE METER 128 mg/dL 70-110 H : TESTED A T [facility] 6720 (BEAKER) (test code = [facility]) 40373: Title I Assistant/Techni nuha ID = [id number] for VA LDIVIEZ, LENNOX CBC W/PLT COUNT & AUTO [id number] 07:38:00 Test Item Value Reference Range Interpretation [...] CONCENTRATION Adequate (CELLAVISION)(BEAKER) (test code = 3438) Title I Assistant ID - Rachael Bello comments: Slide comments:RAD, CHEST, 1 VIEW, NON [id number] 06:47:00Reason for exam:->s/p CABGShould this be performed at the bedside?->YesFINAL REPORT RAD, CHEST, 1 VIEW, NON DEPT INDICATION: s/p CABG COMPARISON: 10 hours prior. FINDINGS: Portable frontal view of the chest. IMPRESSION: Support Lines: No significant change. Lungs and pleura: Airspace and pleural opacities , greater on the left, are unchanged. No pneumothorax.Heart and mediastinum: Stable contours. Additional findings: None. Signed: Ladarius Sanchez MDReport Verified Date/Time: 11/03/2019 06:47:42 Electronically signed by: LADARIUS SANCHEZ MD on11/03/2019 06:47 AMCALCIUM, [id number] 06:20:00 Test Item Value Reference Range Interpretation Comments CALCIUM IONIZED (BEAKER) (test 1.19 mmol/L 1.12-1.27 code = 698) PH, BLOOD (BEAKER) (test code = 7.34 1810) BASIC METABOLIC [id number] 04:59:00 Test Item Value Reference Range Interpretation [...] S NOT APPLICABLE FOR DIALYSIS PATIEN TS. Title I Assistant ID - GERRY [id number] 04:57:00 Test Item Value Reference Range Interpretation Comments PHOSPHORUS (BEAKER) (test code = 3.1 mg/dL 2.3-4.7 604) Title I Assistant ID - GERRY [id number] 04:57:00 Test Item Value Reference Range Interpretation Comments MAGNESIUM (BEAKER) (test code = 2.2 mg/dL 1.6-2.6 627) Title I Assistant ID - GERRY MPOCT-GLUCOSE [id number] 22:34:00 Test Item Value Reference Range Interpretation Comments POC-GLUCOSE METER 202 mg/dL 70-110 H : TESTED A T [facility] 6720 (BEAKER) (test code = [facility], 1538) 23925: Title I Assistant/Techni nuha ID = [id number] for ANJALI AGUILA BASIC METABOLIC [id number] 21:31:00 Test Item Value Reference Range Interpretation [...] S NOT APPLICABLE FOR DIALYSIS PATIEN TS. Title I Assistant ID - [id number] 21:30:00 Test Item Value Reference Range Interpretation Comments PHOSPHORUS (BEAKER) (test code = 4.5 mg/dL 2.3-4.7 604) Title I Assistant ID - [id number] 21:30:00 Test Item Value Reference Range Interpretation Comments MAGNESIUM (BEAKER) (test code = 2.6 mg/dL 1.6-2.6 627) Title I Assistant ID - JASSOD GAS, [id number] 21:10:00 Test Item Value Reference Range Interpretation [...] code = 1819) 36.0 % HEMOGLOBIN AND [id number] 21:03:00 Test Item Value Reference Range Interpretation Comments HEMOGLOBIN (BEAKER) (test code = 8.1 GM/DL 13.7-17.5 L 410) HEMATOCRIT (BEAKER) (test code = 25.9 % 40.1-51.0 L 411) Title I Assistant ID - ShaanRAD, CHEST, 1 VIEW, NON [id number] 20:50:00Reason for exam:->CoughShould this be performed at the bedside?->YesFINAL REPORT RAD, CHEST, 1 VIEW, NON DEPT INDICATION: Cough COMPARISON: 16 hours prior FINDINGS: Portable frontal view of the chest. IMPRESSION: Support Lines: No significant change. Lungs and pleura: Airspace and pleural opacities are unchanged. No pneumothorax.Heart and mediastinum: Stable contours. Additional findings: None. Signed: Ladarius Sanchezeport Verified Date/Time: 11/02/2019 20:50:54 POCT-GLUCOSE [id number] 17:17:00 Test Item Value Reference Range Interpretation Comments POC-GLUCOSE METER 127 mg/dL 70-110 H : TESTED A T [facility] 6720 (BEAKER) (test code = [facility], 1538) 07355: Title I Assistant/Techni nuha ID = [id number] for JONATHAN RODRIGEZ POCT-GLUCOSE [id number] 12:05:00 Test Item Value Reference Range Interpretation Comments POC-GLUCOSE METER 208 mg/dL 70-110 H : TESTED A T [facility] 6720 (BEAKER) (test code = [facility], 1538) 50815: Title I Assistant/Techni nuha ID = [id number] for JONATHAN RODRIGEZ POCT-GLUCOSE [id number] 07:38:00 Test Item Value Reference Range Interpretation Comments POC-GLUCOSE METER 104 mg/dL 70-110 : TESTED A T [facility] 6720 (BEAKER) (test code = [facility], 1538) 97048: Title I Assistant/Techni nuha ID = [id number] for JONATHAN RODRIGEZ RAD, CHEST, 1 VIEW, NON [id number] 06:31:00Reason for exam:->Chest congestionShould this be performed at the bedside?->YesFINAL REPORT RAD, CHEST, 1 VIEW, NON DEPT INDICATION: Chest congestion COMPARISO N: Prior day's exam FINDINGS: Portable frontal view of the chest. IMPRESSION: Support Lines: No significant change. Lungs and pleura: Airspace and pleural opacities are unchanged. No pneumothorax.Heartand mediastinum: Stable contours. Additional findings: None. Signed: Ladarius Sanchez MDReport Verified Date/Time: 11/02/2019 06:31:02 BASIC METABOLIC [id number] 03:20:00 Test Item Value Reference Range Interpretation [...] S NOT APPLICABLE FOR DIALYSIS PATIEN TS. Title I Assistant ID - GERRY [id number] 03:15:00 Test Item Value Reference Range Interpretation Comments PHOSPHORUS (BEAKER) (test code = 3.9 mg/dL 2.3-4.7 604) Title I Assistant ID - GERRY [id number] 03:15:00 Test Item Value Reference Range Interpretation Comments MAGNESIUM (BEAKER) (test code = 2.5 mg/dL 1.6-2.6 627) Title I Assistant ID - GERRY MCBC W/PLT COUNT & AUTO [id number] 03:13:00 Test Item Value Reference Range Interpretation [...] PERCENT (BEAKER) (test code = 2801) CALCIUM, [id number] 02:49:00 Test Item Value Reference Range Interpretation Comments CALCIUM IONIZED (BEAKER) (test 1.16 mmol/L 1.12-1.27 code = 698) PH, BLOOD (BEAKER) (test code = 7.39 1810) POCT-GLUCOSE [id number] 23:12:00 Test Item Value Reference Range Interpretation Comments POC-GLUCOSE METER 171 mg/dL 70-110 H : TESTED A T [facility] 6720 (BEAKER) (test code = [facility], 1538) 33318: Title I Assistant/Techni nuha ID = [id number] for ANJALI AGUILA POCT-GLUCOSE [id number] 17:23:00 Test Item Value Reference Range Interpretation Comments POC-GLUCOSE METER 96 mg/dL 70-110 : TESTED A T [facility] 6720 (BEAKER) (test code = [facility], 1538) 70637: Title I Assistant/Techni nuha ID = [id number] for JONATHAN MACHADO BASIC METABOLIC [id number] 17:18:00 Test Item Value Reference Range Interpretation [...] S NOT APPLICABLE FOR DIALYSIS PATIEN TS. Title I Assistant ID - [id number] 17:17:00 Test Item Value Reference Range Interpretation Comments PHOSPHORUS (BEAKER) (test code = 3.4 mg/dL 2.3-4.7 604) Title I Assistant ID - [id number] 17:17:00 Test Item Value Reference Range Interpretation Comments MAGNESIUM (BEAKER) (test code = 2.4 mg/dL 1.6-2.6 627) Title I Assistant ID - BSBASIC METABOLIC [id number] 13:42:00 Test Item Value Reference Range Interpretation [...] S NOT APPLICABLE FOR DIALYSIS PATIEN TS. Title I Assistant ID - PIAYA [id number] 13:40:00 Test Item Value Reference Range Interpretation Comments PHOSPHORUS (BEAKER) (test code = 3.9 mg/dL 2.3-4.7 604) Title I Assistant ID - PIAYA [id number] 13:40:00 Test Item Value Reference Range Interpretation Comments MAGNESIUM (BEAKER) (test code = 2.6 mg/dL 1.6-2.6 627) Title I Assistant ID - PIAYA LCALCIUM, [id number] 12:49:00 Test Item Value Reference Range Interpretation Comments CALCIUM IONIZED (BEAKER) (test 1.13 mmol/L 1.12-1.27 code = 698) PH, BLOOD (BEAKER) (test code = 7.38 1810) POCT-GLUCOSE [id number] 12:14:00 Test Item Value Reference Range Interpretation Comments POC-GLUCOSE METER 147 mg/dL 70-110 H : TESTED A T [facility] 6720 (BEAKER) (test code = [facility], 1538) 71563: Title I Assistant/Techni nuha ID = [id number] for JONATHAN RODRIGEZ SURGICALLY OBTAINED CULTURE + GRAM [id number] 10:40:00 Test Item Value Reference Range Interpretation Comments CULTURE (BEAKER) (test No growth code = 1095) GRAM STAIN RESULT <1+ White blood cells (BEAKER) (test code = seen 1123) GRAM STAIN RESULT No organisms seen (BEAKER) (test code = 86949) POCT-GLUCOSE [id number] 07:39:00 Test Item Value Reference Range Interpretation Comments POC-GLUCOSE METER 134 mg/dL 70-110 H : TESTED A T [facility] 6720 (BEAKER) (test code = [facility] Caicedo [facility], 1538) 53768: Title I Assistant/Techni nuha ID = [id number] for JONATHAN RODRIGEZ BLOOD GAS, [id number] 05:24:00 Test Item Value Reference Range Interpretation [...] code = 1819) 40.0 % BASIC METABOLIC [id number] 05:23:00 Test Item Value Reference Range Interpretation [...] S NOT APPLICABLE FOR DIALYSIS PATIEN TS. Title I Assistant ID - LILY [id number] 05:18:00 Test Item Value Reference Range Interpretation Comments PHOSPHORUS (BEAKER) (test code = 4.8 mg/dL 2.3-4.7 H 604) Title I Assistant ID - LILY [id number] 05:18:00 Test Item Value Reference Range Interpretation Comments MAGNESIUM (BEAKER) (test code = 2.8 mg/dL 1.6-2.6 H 627) Title I Assistant ID - LILY LCBC (HEMOGRAM ONLY)2019-11-01 04:59:00 [...] = 413) RAD, CHEST, 1 VIEW, NON [id number] 04:16:00Reason for exam:->post cardiac surgeryFINAL REPORT RAD, CHEST, 1 VIEW, NON DEPT INDICATION: post cardiac surgery COMPARISON: Prior day's exam FINDINGS: Portable frontal view of the chest. IMPRESSION: Support Lines: Interval removal of the previously seen mediastinal drain and left-sided chest tube. Otherwise unchanged support apparatus. Lungs and pleura: Increased left retrocardiac airspace opacity favored representpartial left lower lobe collapse. Persistent small bilateral pleural effusions. No pneumothorax.Heart and mediastinum: Stable contours. Stable surgical changes.Additional findings: None. Signed: Sigrid Vieyra MDReport Verified Date/Time: 11/01/2019 04:16:36 BASIC METABOLIC PANEL 2019-10-31 23:53:00 Test Item Value Reference Range Interpretation [...] S NOT APPLICABLE FOR DIALYSIS PATIEN TS. Title I Assistant ID - PIAYA [id number] 23:26:00 Test Item Value Reference Range Interpretation Comments POTASSIUM (BEAKER) (test code = 4.6 meq/L 3.5-5.1 379) Title I Assistant ID - LILY [id number] 23:26:00 Test Item Value Reference Range Interpretation Comments MAGNESIUM (BEAKER) (test code = 2.7 mg/dL 1.6-2.6 H 627) Title I Assistant ID - LILY [id number] 23:26:00 Test Item Value Reference Range Interpretation Comments PHOSPHORUS (BEAKER) (test code = 4.6 mg/dL 2.3-4.7 604) Title I Assistant ID - LILY [id number] 23:26:00 Test Item Value Reference Range Interpretation Comments GLUCOSE RANDOM (BEAKER) (test code 144 mg/dL 70-105 H = 652) Title I Assistant ID - LILY LHEMOGLOBIN AND [id number] 23:06:00 Test Item Value Reference Range Interpretation Comments HEMOGLOBIN (BEAKER) (test code = 7.2 GM/DL 13.7-17.5 L 410) HEMATOCRIT (BEAKER) (test code = 22.9 % 40.1-51.0 L 411) Title I Assistant ID - 6000POCT-GLUCOSE [id number] 18:25:00 Test Item Value Reference Range Interpretation Comments POC-GLUCOSE METER 143 mg/dL 70-110 H : TESTED A T [facility] 6720 (BEAKER) (test code = [facility], 1538) 85353: Title I Assistant/Techni nuha ID = [id number] for MALACHI NASH [id number] 16:52:00 Test Item Value Reference Range Interpretation Comments POTASSIUM (BEAKER) (test code = 4.8 meq/L 3.5-5.1 379) Title I Assistant ID - ELEAZAR EPOCT-GLUCOSE [id number] 12:46:00 Test Item Value Reference Range Interpretation Comments POC-GLUCOSE METER 142 mg/dL 70-110 H : TESTED A T [facility] 6720 (BEAKER) (test code = [facility], 1538) 84865: Title I Assistant/Techni nuha ID = [id number] for MALACHI NASH [id number] 10:51:00 Test Item Value Reference Range Interpretation Comments POTASSIUM (BEAKER) (test code = 4.7 meq/L 3.5-5.1 379) Title I Assistant ID - SALONI [id number] 10:51:00 Test Item Value Reference Range Interpretation Comments PHOSPHORUS (BEAKER) (test code = 4.8 mg/dL 2.3-4.7 H 604) Title I Assistant ID Tacos GUALLPA [id number] 10:51:00 Test Item Value Reference Range Interpretation Comments MAGNESIUM (BEAKER) (test code = 2.6 mg/dL 1.6-2.6 627) Title I Assistant ID - SALONI FPOCT-GLUCOSE [id number] 09:54:00 Test Item Value Reference Range Interpretation Comments POC-GLUCOSE METER 164 mg/dL 70-110 H : TESTED A T [facility] 6720 (BEAKER) ([facility], 1538) 84782: Title I Assistant/Techni nuha ID = [id number] for NIMESH SANCHEZ POCT-GLUCOSE [id number] 09:27:00 Test Item Value Reference Range Interpretation Comments POC-GLUCOSE METER 163 mg/dL 70-110 H : TESTED A T [facility] 6720 (BEAKER) (test code = [facility] Sascha [facility], 1538) 44104: Title I Assistant/Techni nuha ID = [id number] for DAVID BENNETT RAD, CHEST, 1 VIEW, NON [id number] 07:53:00Reason for exam:->post cardiac surgeryFINAL REPORT RAD, CHEST, 1 VIEW, NON DEPT INDICATION: post cardiac surgery COMPARISON: Prior day's exam FINDINGS: Portable frontal view of the chest. IMPRESSION: Limited by underpenetration.Support Lines: Stable. Lungs and pleura: Unchanged interstitial and pleural opacities. No pneumothorax.Heart and mediastinum: Stable contours. Stable surgical changes.Additional findings: None. Signed: JR Gracia Robert MDReport Verified Date/Time: 10/31/2019 07:53:55 Reading Location:[facility] Radiology Reading Room 0 7:53 AMBASIC METABOLIC [id number] 04:29:00 Test Item Value Reference Range Interpretation [...] S NOT APPLICABLE FOR DIALYSIS PATIEN TS. Title I Assistant ID - LILY [id number] 04:26:00 Test Item Value Reference Range Interpretation Comments PHOSPHORUS (BEAKER) (test code = 5.0 mg/dL 2.3-4.7 H 604) Title I Assistant ID - PIBLANE [id number] 04:26:00 Test Item Value Reference Range Interpretation Comments MAGNESIUM (BEAKER) (test code = 2.5 mg/dL 1.6-2.6 627) Title I Assistant ID - LILY [id number] 04:01:00 Test Item Value Reference Range Interpretation [...] is 2.5-3.5 for patients wiht mechanical heart valves.PROTHROMBIN TIME/[id number] 04:00:00 Test Item Value Reference Range Interpretation [...] is 2.5-3.5 for patients wiht mechanical heart valves.CBC (HEMOGRAM [...] 0-0 (test code = 413) BLOOD GAS, [id number] 03:46:00 Test Item Value Reference Range Interpretation [...] (BEAKER) (test code = 1819) 40.0 % [id number] 01:25:00 Test Item Value Reference Range Interpretation Comments POTASSIUM (BEAKER) (test code = 4.7 meq/L 3.5-5.1 379) Title I Assistant ID - PIAYA [id number] 20:33:00 Test Item Value Reference Range Interpretation Comments POTASSIUM (BEAKER) (test code = 4.7 meq/L 3.5-5.1 379) Title I Assistant ID - [id number] 20:33:00 Test Item Value Reference Range Interpretation Comments MAGNESIUM (BEAKER) (test code = 2.4 mg/dL 1.6-2.6 627) Title I Assistant ID - [id number] 20:33:00 Test Item Value Reference Range Interpretation Comments PHOSPHORUS (BEAKER) (test code = 4.5 mg/dL 2.3-4.7 604) Title I Assistant ID - BSPOCT-GLUCOSE [id number] 13:55:00 Test Item Value Reference Range Interpretation Comments POC-GLUCOSE METER 149 mg/dL 70-110 H : TESTED A T [facility] 6720 (BEAKER) (test code = [facility], 1538) 92958: Title I Assistant/Techni nuha ID = [id number] for NIMESH SANCHEZ BLOOD GAS, [id number] 11:08:00 Test Item Value Reference Range Interpretation [...] (BEAKER) (test code = 1819) 40.0 % [id number] 10:23:00 Test Item Value Reference Range Interpretation Comments PHOSPHORUS (BEAKER) (test code = 4.9 mg/dL 2.3-4.7 H 604) Title I Assistant ID - [id number] 10:23:00 Test Item Value Reference Range Interpretation Comments MAGNESIUM (BEAKER) (test code = 2.7 mg/dL 1.6-2.6 H 627) Title I Assistant ID - [id number] 10:23:00 Test Item Value Reference Range Interpretation Comments POTASSIUM (BEAKER) (test code = 5.2 meq/L 3.5-5.1 H 379) Title I Assistant ID - DBPOCT-GLUCOSE [id number] 10:07:00 Test Item Value Reference Range Interpretation Comments POC-GLUCOSE METER 118 mg/dL 70-110 H : TESTED A T [facility] 6720 (BEAKER) (test code = [facility] Caicedo [facility], 1538) 40988: Title I Assistant/Techni nuha ID = [id number] for NIMESH SANCHEZ RAD, CHEST, 1 VIEW, NON [id number] 06:52:00Reason for exam:->post cardiac surgeryFINAL REPORT RAD, CHEST, 1 VIEW, NON DEPT INDICATION: post cardiac surgery COMPARISON: Prior day's exam FINDINGS: Portable frontal view of the chest. IMPRESSION: Support Lines: Interval extubation and removal of the enteric tube. Other support lines and tubes are stable.Lungs and pleura: No new airspace consolidation post extubation. Lungs remain hypoinflated with bronchovascularcrowding and left basilar hazy opacity is unchanged. No pneumothorax.Heart and mediastinum: Stable contours. Stable surgical changes.Additional findings: None. Signed: Yuridia Hand MDReport Verified J Carlos e/Time: 10/30/2019 06:52:57 POCT-GLUCOSE [id number] 06:39:00 Test Item Value Reference Range Interpretation Comments POC-GLUCOSE METER 146 mg/dL 70-110 H : Notified RN/MD: (BEAKER) (test code = TESTED AT [facility] 2584 2386) [facility], [address]: Title I Assistant/Techni nuha ID = [id number] for CECILIA CRISOSTOMO BASIC METABOLIC [id number] 05:20:00 Test Item Value Reference Range Interpretation [...] S NOT APPLICABLE FOR DIALYSIS PATIEN TS. Title I Assistant ID - GERRY [id number] 05:08:00 Test Item Value Reference Range Interpretation Comments MAGNESIUM (BEAKER) 2.6 mg/dL 1.6-2.6 Specimen slightly (test code = 627) hemolyzed Title I Assistant ID - GERRY [id number] 05:08:00 Test Item Value Reference Range Interpretation Comments PHOSPHORUS (BEAKER) 5.0 mg/dL 2.3-4.7 H Specimen slightly (test code = 604) hemolyzed Title I Assistant ID - GERRY [facility] (HEMOGRAM ONLY)2019-10-30 05:00:00 [...] (BEAKER) (test code = 413) BLOOD GAS, [id number] 04:50:00 Test Item Value Reference Range Interpretation [...] 38.3 C (test code = 1818) FIO2 ([facility]) (test code = 1819) 60.0 % POCT-GLUCOSE [id number] 03:25:00 Test Item Value Reference Range Interpretation Comments POC-GLUCOSE METER 136 mg/dL 70-110 H : Notified RN/MD: ([facility]) (test code = TESTED AT [place] [address]) [facility], [address]: Title I Assistant/Techni nuha ID = [id number] for DE CKER, CCEILIA [id number] 01:23:00 Test Item Value Reference Range Interpretation Comments POTASSIUM ([facility]) (test code = 5.2 meq/L 3.5-5.1 H 379) Title I Assistant ID - GERRY MPOCT-GLUCOSE [id number] 01:15:00 Test Item Value Reference Range Interpretation Comments POC-GLUCOSE METER 149 mg/dL 70-110 H : [facility] (test code = [facility]) [address]: Title I Assistant/Techni nuha ID = [id number] for PA ALANIBU, CHARLOTTE POCT-GLUCOSE [id number] 00:01:00 Test Item Value Reference Range Interpretation Comments POC-GLUCOSE METER 143 mg/dL 70-110 H : [facility] ([facility]) (test code = [facility], 153) [address]: Title I Assistant/Techni nuha ID = [id number] for PA ALANIBU, CHARLOTTE POCT-GLUCOSE [id number] 21:28:00 Test Item Value Reference Range Interpretation Comments POC-GLUCOSE METER 157 mg/dL 70-110 H : Notified RN/MD: ([facility]) (test code = TESTED AT [place] [address] 1538) [facility], [address]: Title I Assistant/Techni nuha ID = [id number] for DE CKER, CECILIA POCT-GLUCOSE [id number] 21:21:00 Test Item Value Reference Range Interpretation Comments POC-GLUCOSE METER 178 mg/dL 70-110 H : [facility]) (test code = [facility], 153) [address]: Title I Assistant/Techni nuha ID = [id number] for GURMEET QUINTANA JR BLOOD GAS, [id number] 20:04:00 Test Item Value Reference Range Interpretation [...] code = 1819) 60.0 % LACTIC ACID, [id number] 20:04:00 Test Item Value Reference Range Interpretation Comments LACTATE BLOOD ARTERIAL (2) 2.2 mmol/L 0.5-2.2 (BEAKER) (test code = 2874) Title I Assistant ID - DBCALCIUM, [id number] 19:58:00 Test Item Value Reference Range Interpretation Comments CALCIUM IONIZED (BEAKER) (test 1.19 mmol/L 1.12-1.27 code = 698) PH, BLOOD (BEAKER) (test code = 7.37 1810) GLUCOSE-STAT [id number] 19:58:00 Test Item Value Reference Range Interpretation Comments GLUCOSE RANDOM (BEAKER) (test code 168 mg/dL 70-110 H = 652) HGB/HCT (H&H) - STAT [id number] 19:58:00 Test Item Value Reference Range Interpretation Comments HEMOGLOBIN (BEAKER) (test code = 9.1 g/dL 13.0-16.8 L 410) HEMATOCRIT (BEAKER) (test code = 27.0 % 40.0-50.0 L 411) SODIUM NA-STAT [id number] 19:57:00 Test Item Value Reference Range Interpretation Comments SODIUM (BEAKER) (test code = 381) 139 meq/L 135-148 POTASSIUM-STAT [id number] 19:57:00 Test Item Value Reference Range Interpretation Comments POTASSIUM (BEAKER) (test code = 5.2 meq/L 3.6-5.5 379) [id number] 17:10:00 Test Item Value Reference Range Interpretation Comments POTASSIUM (BEAKER) (test code = 5.3 meq/L 3.5-5.1 H 379) Title I Assistant ID - BSBLOOD GAS, [id number] 16:57:00 Test Item Value Reference Range Interpretation [...] (BEAKER) (test code = 1819) 40.0 % [id number] 12:24:00 Test Item Value Reference Range Interpretation Comments POTASSIUM (BEAKER) (test code = 4.9 meq/L 3.5-5.1 379) Title I Assistant ID - ODETTE MBLOOD GAS, [id number] 11:53:00 Test Item Value Reference Range Interpretation [...] (test code = 1819) 40.0 % POCT-GLUCOSE [id number] 11:45:00 Test Item Value Reference Range Interpretation Comments POC-GLUCOSE METER 181 mg/dL 70-110 H : TESTED A T [facility] 6720 (BEAKER) (test code = JIGNESHPR Sascha [facility], 1538) [address]: Title I Assistant/Techni nuha ID = [id number] for GURMEET QUINTANA JR [id number] 08:48:00 Test Item Value Reference Range Interpretation Comments MAGNESIUM (BEAKER) 2.4 mg/dL 1.6-2.6 Specimen slightly (test code = 627) hemolyzed Title I Assistant ID - GERRY [id number] 08:48:00 Test Item Value Reference Range Interpretation Comments PHOSPHORUS (BEAKER) 3.4 mg/dL 2.3-4.7 Specimen slightly (test code = 604) hemolyzed Title I Assistant ID - GERRY [id number] 08:48:00 Test Item Value Reference Range Interpretation Comments POTASSIUM (BEAKER) 4.6 meq/L 3.5-5.1 Specimen slightly (test code = 379) hemolyzed Title I Assistant ID - GERRY MRAD, CHEST, 1 VIEW, NON [id number] 07:02:00while patient is intubated or has chest tubes.Reason for exam:->Status post CV SurgeryShould thisbe performed at the bedside?->YesFINAL REPORT RAD, CHEST, 1 VIEW, NON DEPT INDICATION: Status post CV Surgery COM PARISON: Prior day's exam FINDINGS: Portable frontal view of the chest. IMPRESSION: Limited by underpenetration, positioning and rotationSupport Lines: Stable. Lungs and pleura: Unchanged airspace and interstitial opacities. No pneumothorax.Heart and mediastinum: Stable contours. Stable surgical change s.Additional findings: None. Signed: JR Gracia Robert MDReport Verified Date/Time: 10/29/2019 07:02:49 Reading Location: [facility] Radiology Reading Room POCT- GLUCOSE [id number] 06:37:00 Test Item Value Reference Range Interpretation Comments POC-GLUCOSE METER 150 mg/dL 70-110 H : TESTED A T [facility] 6720 (BEAKER) (test code = ALPHONSO Caicedo [facility], 1538) [address]: Title I Assistant/Techni nuha ID = [id number] for YASMIN DAVIS [id number] 06:37:00 Test Item Value Reference Range Interpretation Comments ACTIVATED CLOTTING TIME 131 sec : 74 -137 seconds, (BEAKER) (test code = Baseli ne: TESTED AT 441) [address], [address]: Title I Assistant/Techni nuha ID = [id number] for GO RMAN, ANTHONY [id number] 06:36:00 Test Item Value Reference Range Interpretation Comments ACTIVATED CLOTTING TIME 499 sec : 74 -137 seconds, (BEAKER) (test code = Baseli ne: TESTED AT 441) [address], [address]: Title I Assistant/Techni nuha ID = [id number] for GO RMAN, ANTHONY [id number] 06:36:00 Test Item Value Reference Range Interpretation Comments ACTIVATED CLOTTING TIME 516 sec : 74 -137 seconds, (BEAKER) (test code = Baseli ne: TESTED AT 441) [address], [address]: Title I Assistant/Techni nuha ID = [id number] for GO RMAN, ANTHNOY [id number] 06:36:00 Test Item Value Reference Range Interpretation Comments ACTIVATED CLOTTING TIME 621 sec : 74 -137 seconds, (BEAKER) (test code = Baseli ne: TESTED AT 441) [address], [address]: Title I Assistant/Techni nuha ID = [id number] for GO RMAN, ANTHONY [id number] 06:36:00 Test Item Value Reference Range Interpretation Comments ACTIVATED CLOTTING TIME 753 sec : 74 -137 seconds, (BEAKER) (test code = Baseli ne: TESTED AT 441) [address], [address]: Title I Assistant/Techni nuha ID = [id number] for GO RMAN, ANTHONY [id number] 06:36:00 Test Item Value Reference Range Interpretation Comments ACTIVATED CLOTTING TIME 505 sec : 74 -137 seconds, (BEAKER) (test code = Baseli ne: TESTED AT 441) [address], [facility] 30: Title I Assistant/Techni nuha ID = [id number] for GO RMAN, ANTHONY [id number] 06:36:00 Test Item Value Reference Range Interpretation Comments ACTIVATED CLOTTING TIME 516 sec : 74 -137 seconds, (BEAKER) (test code = [place] ne: TESTED AT 441) [facility] 6720 [facility] [place], [address]: Title I Assistant/Techni nuha ID = [id number] for ANTHONY RIDLEY POCT-GLUCOSE [id number] 04:37:00 Test Item Value Reference Range Interpretation Comments POC-GLUCOSE METER 141 mg/dL 70-110 H : TESTED A T [facility] 6720 (BEAKER) (test code = [facility] [place], 1538) [address]: Title I Assistant/Techni nuha ID = [id number] for ON YASMIN JORDAN BASIC METABOLIC [id number] 03:19:00 Test Item Value Reference Range Interpretation [...] S NOT APPLICABLE FOR DIALYSIS PATIEN TS. Title I Assistant ID - GERRY [id number] 03:13:00 Test Item Value Reference Range Interpretation [...] is 2.5-3.5 for patients wiht mechanical heart valves.PROTHROMBIN [id number] 03:12:00 Test Item Value Reference Range Interpretation [...] is 2.5-3.5 for patients wiht mechanical heart valves.[id number] 03:09:00 Test Item Value Reference Range Interpretation Comments PHOSPHORUS (BEAKER) (test code = 2.4 mg/dL 2.3-4.7 604) Title I Assistant ID - GERRY [id number] 03:09:00 Test Item Value Reference Range Interpretation Comments MAGNESIUM (BEAKER) (test code = 2.8 mg/dL 1.6-2.6 H 627) Title I Assistant ID - GERRY MLACTIC ACID, [id number] 03:02:00 Test Item Value Reference Range Interpretation Comments LACTATE BLOOD ARTERIAL (2) 1.2 mmol/L 0.5-2.2 (BEAKER) (test code = 2874) Title I Assistant ID - GERRY MCBC (HEMOGRAM ONLY)2019-10-29 02:53:00 [...] (BEAKER) (test code = 413) OXYGEN SATURATION, [id number] 02:52:00 Test Item Value Reference Range Interpretation Comments O2 SATURATION (MEASURED) (BEAKER) 78.1 % (test code = 1455) BLOOD GAS, [id number] 02:51:00 Test Item Value Reference Range Interpretation [...] (test code = 1819) 40.0 % GLUCOSE-STAT [id number] 02:51:00 Test Item Value Reference Range Interpretation Comments GLUCOSE RANDOM (BEAKER) (test code 158 mg/dL 70-110 H = 652) CALCIUM, [id number] 02:50:00 Test Item Value Reference Range Interpretation Comments CALCIUM IONIZED (BEAKER) (test 1.20 mmol/L 1.12-1.27 code = 698) PH, BLOOD (BEAKER) (test code = 7.46 1810) POCT-GLUCOSE [id number] 00:29:00 Test Item Value Reference Range Interpretation Comments POC-GLUCOSE METER 156 mg/dL 70-110 H : TESTED A T [facility] 6720 (BEAKER) (test code = [facility], 1538) [address]: Title I Assistant/Techni nuha ID = [id number] for ON AMBNOLVIA YASMIN [id number] 22:46:00 Test Item Value Reference Range Interpretation Comments POTASSIUM (BEAKER) (test code = 4.8 meq/L 3.5-5.1 379) Title I Assistant ID - [id number] 22:46:00 Test Item Value Reference Range Interpretation Comments MAGNESIUM (BEAKER) (test code = 3.3 mg/dL 1.6-2.6 H 627) Title I Assistant ID - [id number] 22:46:00 Test Item Value Reference Range Interpretation Comments PHOSPHORUS (BEAKER) (test code = 1.8 mg/dL 2.3-4.7 L 604) Title I Assistant ID - BSLACTIC ACID, [id number] 22:13:00 Test Item Value Reference Range Interpretation Comments LACTATE BLOOD ARTERIAL (2) 1.2 mmol/L 0.5-2.2 (BEAKER) (test code = 2874) Title I Assistant ID - BSPOCT-GLUCOSE [id number] 22:03:00 Test Item Value Reference Range Interpretation Comments POC-GLUCOSE METER 141 mg/dL 70-110 H : TESTED A T [facility] 6720 (BEAKER) (test code = [facility], 1538) [address]: Title I Assistant/Techni nuha ID = [id number] for ON AMBELE, YASMIN POCT-GLUCOSE [id number] 19:42:00 Test Item Value Reference Range Interpretation Comments POC-GLUCOSE METER 149 mg/dL 70-110 H : TESTED A T [facility] 6720 (BEAKER) (test code = [facility], 1538) [address]: Title I Assistant/Techni nuha ID = [id number] for CANDICE FOSTER POCT-GLUCOSE [id number] 18:32:00 Test Item Value Reference Range Interpretation Comments POC-GLUCOSE METER 147 mg/dL 70-110 H : [facility] ([facility] (test code = [place], 1538) [address]: Title I Assistant/Techni nuha ID = [id number] for CANDICE FOSTER [id number] 18:08:00 Test Item Value Reference Range Interpretation Comments PHOSPHORUS (BEAKER) 3.4 mg/dL 2.3-4.7 Specimen slightly (test code = 604) hemolyzed Title I Assistant ID - ELEAZAR ERAD, CHEST, 1 VIEW, NON [id number] 17:51:00Reason for exam:->ETTShould this be performed at [...] dual-chamber. There is a right IJ route Brainard-Pepe catheter with the tip in the region of the main probably artery. There is presence of oneleft pleural drain. There is dense opacification of the left lower lung zone that could represent atelectasis with or without effusion. There is possibly a trace right pleural effusion gravitating to the right lung apex. There is no pneumothorax. There is cardiomegaly. The patient is status post median sternotomy and CABG. Incidentally noted is a left axillary area vascular stent. Upper abdomen is unremarkable. IMPRESSION: The endotracheal tube as described above. Signed: Darrius Pan MDReport Verified Date/Time: 10/28/2019 17:51:08 Reading Location: [facility] C013W Consult Reading Room CBC W/PLT COUNT & AUTO [id number] 17:49:00 Test Item Value Reference Range Interpretation [...] (BEAKER) (test code = 2801) BASIC METABOLIC [id number] 17:38:00 Test Item Value Reference Range Interpretation [...] S NOT APPLICABLE FOR DIALYSIS PATIEN TS. Title I Assistant ID - ELEAZAR EPROTHROMBIN [id number] 17:31:00 Test Item Value Reference Range Interpretation [...] is 2.5-3.5 for patients wiht mechanical heart valves.[id number] 17:31:00 Test Item Value Reference Range Interpretation Comments FIBRINOGEN LEVEL (BEAKER) (test 343 mg/dl 225-434 code = 658) [id number] 17:31:00 Test Item Value Reference Range Interpretation Comments PARTIAL THROMBOPLASTIN TIME 36.5 seconds 22.5-36.0 H (BEAKER) (test code = 247) [id number] 17:25:00 Test Item Value Reference Range Interpretation Comments MAGNESIUM (BEAKER) 3.4 mg/dL 1.6-2.6 H Specimen slightly (test code = 627) hemolyzed Title I Assistant ID - ELEAZAR ELACTIC ACID, [id number] 17:20:00 Test Item Value Reference Range Interpretation Comments LACTATE BLOOD 3.0 mmol/L 0.5-2.2 H Specimen sligh tly ARTERIAL (2) (BEAKER) hemoly zed (test code = 2874) Title I Assistant ID - ELEAZAR EPLATELET [id number] 17:11:00 Test Item Value Reference Range Interpretation Comments PLATELET COUNT (BEAKER) (test 119 K/CU MM 150-450 L code = 756) Title I Assistant ID - ShaanBLOOD GAS, [id number] 17:06:00 Test Item Value Reference Range Interpretation [...] code = 1819) 40.0 % SODIUM NA-STAT [id number] 17:06:00 Test Item Value Reference Range Interpretation Comments SODIUM (BEAKER) (test code = 381) 141 meq/L 135-148 POTASSIUM-STAT [id number] 17:06:00 Test Item Value Reference Range Interpretation Comments POTASSIUM (BEAKER) (test code = 5.1 meq/L 3.6-5.5 379) CALCIUM, [id number] 17:06:00 Test Item Value Reference Range Interpretation Comments CALCIUM IONIZED (BEAKER) (test 1.12 mmol/L 1.12-1.27 code = 698) PH, BLOOD (BEAKER) (test code = 7.44 1810) GLUCOSE-STAT [id number] 17:06:00 Test Item Value Reference Range Interpretation Comments GLUCOSE RANDOM (BEAKER) (test code 192 mg/dL 70-110 H = 652) HGB/HCT (H&H) - STAT [id number] 17:06:00 Test Item Value Reference Range Interpretation Comments HEMOGLOBIN (BEAKER) (test code = 8.4 g/dL 13.0-16.8 L 410) HEMATOCRIT (BEAKER) (test code = 25.0 % 40.0-50.0 L 411) OXYGEN SATURATION, [id number] 17:06:00 Test Item Value Reference Range Interpretation Comments O2 SATURATION (MEASURED) (BEAKER) 73.6 % (test code = 1455) CBC W/PLT COUNT & AUTO [id number] 16:50:00 Test Item Value Reference Range Interpretation [...] (BEAKER) (test code = 2801) SODIUM NA-STAT [id number] 15:41:00 Test Item Value Reference Range Interpretation Comments SODIUM (BEAKER) (test code = 381) 141 meq/L 135-148 POTASSIUM-STAT [id number] 15:41:00 Test Item Value Reference Range Interpretation Comments POTASSIUM (BEAKER) (test code = 4.7 meq/L 3.6-5.5 379) CALCIUM, [id number] 15:41:00 Test Item Value Reference Range Interpretation Comments CALCIUM IONIZED (BEAKER) (test 1.15 mmol/L 1.12-1.27 code = 698) PH, BLOOD (BEAKER) (test code = 7.40 1810) BLOOD GAS, [id number] 15:41:00 Test Item Value Reference Range Interpretation [...] (test code = 1819) 100.0 % GLUCOSE-STAT [id number] 15:41:00 Test Item Value Reference Range Interpretation Comments GLUCOSE RANDOM (BEAKER) (test code 216 mg/dL 70-110 H = 652) HGB/HCT (H&H) - STAT [id number] 15:41:00 Test Item Value Reference Range Interpretation Comments HEMOGLOBIN (BEAKER) (test code = 8.0 g/dL 13.0-16.8 L 410) HEMATOCRIT (BEAKER) (test code = 24.0 % 40.0-50.0 L 411) SODIUM NA-STAT [id number] 15:17:00 Test Item Value Reference Range Interpretation Comments SODIUM (BEAKER) (test code = 381) 140 meq/L 135-148 POTASSIUM-STAT [id number] 15:17:00 Test Item Value Reference Range Interpretation Comments POTASSIUM (BEAKER) (test code = 4.5 meq/L 3.6-5.5 379) CALCIUM, [id number] 15:17:00 Test Item Value Reference Range Interpretation Comments CALCIUM IONIZED (BEAKER) (test 1.01 mmol/L 1.12-1.27 L code = 698) PH, BLOOD (BEAKER) (test code = 7.38 1810) BLOOD GAS, [id number] 15:17:00 Test Item Value Reference Range Interpretation [...] 36.0 C (test code = 1818) GLUCOSE-STAT [id number] 15:17:00 Test Item Value Reference Range Interpretation Comments GLUCOSE RANDOM (BEAKER) (test code 226 mg/dL 70-110 H = 652) HGB/HCT (H&H) - STAT [id number] 15:17:00 Test Item Value Reference Range Interpretation Comments HEMOGLOBIN (BEAKER) (test code = 7.5 g/dL 13.0-16.8 L 410) HEMATOCRIT (BEAKER) (test code = 22.0 % 40.0-50.0 L 411) [id number] 15:01:00 Test Item Value Reference Range Interpretation Comments FIBRINOGEN LEVEL (BEAKER) (test 314 mg/dl 225-434 code = 658) [id number] 14:57:00 Test Item Value Reference Range Interpretation Comments PARTIAL THROMBOPLASTIN TIME 38.4 seconds 22.5-36.0 H (BEAKER) (test code = 760) PROTHROMBIN [id number] 14:56:00 Test Item Value Reference Range Interpretation [...] is 2.5-3.5 for patients wiht mechanical heart valves.BLOOD GAS, [id number] 14:47:00 Test Item Value Reference Range Interpretation [...] (test code = 1819) 100.0 % GLUCOSE-STAT [id number] 14:47:00 Test Item Value Reference Range Interpretation Comments GLUCOSE RANDOM (BEAKER) (test code 240 mg/dL 70-110 H = 652) HGB/HCT (H&H) - STAT [id number] 14:47:00 Test Item Value Reference Range Interpretation Comments HEMOGLOBIN (BEAKER) (test code = 7.1 g/dL 13.0-16.8 L 410) HEMATOCRIT (BEAKER) (test code = 21.0 % 40.0-50.0 L 411) PLATELET [id number] 14:46:00 Test Item Value Reference Range Interpretation Comments PLATELET COUNT (BEAKER) (test code 86 K/CU MM 150-450 L = 756) Title I Assistant ID - [id number], [id number] 14:46:00 Test Item Value Reference Range Interpretation Comments CALCIUM IONIZED (BEAKER) (test 1.22 mmol/L 1.12-1.27 code = 698) PH, BLOOD (BEAKER) (test code = 7.24 1810) SODIUM NA-STAT [id number] 14:45:00 Test Item Value Reference Range Interpretation Comments SODIUM (BEAKER) (test code = 381) 138 meq/L 135-148 POTASSIUM-STAT [id number] 14:45:00 Test Item Value Reference Range Interpretation Comments POTASSIUM (BEAKER) (test code = 4.9 meq/L 3.6-5.5 379) CT, CTA, [id number] 14:28:00Addendum BeginsREPORT STATUS:A ADDENDUM: I agree with the previously described non vascular findings. Additional findings:None. Signed: Aziza Cary MDReport Verified Date/Time: 14:28:45 Reading Location: [place] [address] Angio Body Reading RoomAddendum EndsFINAL REPORT CT angiography of the thoracic aorta, 25 November 2019 INDICATION: This is a 69 yearold male with a diagnosis of coronary artery [...] chest, with pacing leads identified in the right- sided cardiac chambers. No pericardial effusion is identified. The central pulmonary artery is normal in calibre. There is no evidence of central pulmonary artery embolism identified. The cardiac chambers demonstrate normal atrioventricular and ventriculoarterial concordance, and systemic and pulmonary venous return.In the mid diastolic data set, the left ventricle is enlarged. Mild left atrial prominence is identified. Coronary artery origins are normal and diffuse calcification is identified in all 3 coronary territories. In fact, there is likely stent versus diffuse calcification identified in the proximal andmid LAD for length of approximately 6.7 cm. Thereafter, remainder of the the mid and distal LAD appears to be free of calcification of precontrast series, however, patency is difficult to comment upon.The thoracic aorta is normal in course, contour, [...] including where the DESMOND arises of calcification. Theleft subclavian artery is widely patent. The left and the right internal mammary arteries are also well seen. Quantitative dimensions of the aorta are as follows: 3.2 cm at the sinuses of Valsalva (thesino-tubular junction is preserved); 2.7 cm at the [...] The visualised thyroid gland is unremarkable. The chestwall and mediastinum appear normal. Number of small lymph nodes are seen, less than 1 cm in size, therefore considered nonspecific in nature. In the lung windows, no endobronchial lesion is seen. Smallleft basal pleural effusion is identified and associated [...] intramural hematoma, or contained rupture. Quantitative dimension of the thoracic aorta are as described above. Minimal nonobstructive calcification is seen in the takeoff of the left subclavian artery and the left ablation artery is widely patent. 2. Normal coronary artery origins. Diffuse calcification is seen in all 3 coronary territories, as specially in the proximal 6.7 cm of the LAD, diffuse calcification versus stent is present. Theleft ventricle is enlarged. 3. Pulmonary findings as described above. Small left basal pleural effusion. The central pulmonary artery is normal in calibre no evidence of central pulmonary artery embolism is identified. 4. Other findings as described above 5. An addendum will be dictated regarding the non-vascular findings by the [employer] Consultant Radiologist. Signed: Alfonzo Almanza Verified Date/Time: 10/28/2019 07:41:51 BLOOD GAS, [id number] 14:00:00 Test Item Value Reference Range Interpretation [...] (test code = 1819) 70.0 % POTASSIUM-STAT [id number] 14:00:00 Test Item Value Reference Range Interpretation Comments POTASSIUM (BEAKER) (test code = 5.7 meq/L 3.6-5.5 H 379) GLUCOSE-STAT [id number] 14:00:00 Test Item Value Reference Range Interpretation Comments GLUCOSE RANDOM (BEAKER) (test code 229 mg/dL 70-110 H = 652) HGB/HCT (H&H) - STAT [id number] 14:00:00 Test Item Value Reference Range Interpretation Comments HEMOGLOBIN (BEAKER) (test code = 7.1 g/dL 13.0-16.8 L 410) HEMATOCRIT (BEAKER) (test code = 21.0 % 40.0-50.0 L 411) SODIUM NA-STAT [id number] 13:59:00 Test Item Value Reference Range Interpretation Comments SODIUM (BEAKER) (test code = 381) 138 meq/L 135-148 SODIUM NA-STAT [id number] 13:33:00 Test Item Value Reference Range Interpretation Comments SODIUM (BEAKER) (test code = 381) 138 meq/L 135-148 POTASSIUM-STAT [id number] 13:33:00 Test Item Value Reference Range Interpretation Comments POTASSIUM (BEAKER) (test code = 5.4 meq/L 3.6-5.5 379) BLOOD GAS, [id number] 13:33:00 Test Item Value Reference Range Interpretation [...] (test code = 1819) 70.0 % GLUCOSE-STAT [id number] 13:33:00 Test Item Value Reference Range Interpretation Comments GLUCOSE RANDOM (BEAKER) (test code 202 mg/dL 70-110 H = 652) HGB/HCT (H&H) - STAT [id number] 13:33:00 Test Item Value Reference Range Interpretation Comments HEMOGLOBIN (BEAKER) (test code = 8.4 g/dL 13.0-16.8 L 410) HEMATOCRIT (BEAKER) (test code = 25.0 % 40.0-50.0 L 411) LACTIC ACID, [id number] 13:10:00 Test Item Value Reference Range Interpretation Comments LACTATE BLOOD ARTERIAL (2) 0.9 mmol/L 0.5-2.2 (BEAKER) (test code = 2874) Title I Assistant ID - SALONI FSODIUM NA-STAT [id number] 13:00:00 Test Item Value Reference Range Interpretation Comments SODIUM (BEAKER) (test code = 381) 135 meq/L 135-148 POTASSIUM-STAT [id number] 13:00:00 Test Item Value Reference Range Interpretation Comments POTASSIUM (BEAKER) (test code = 5.1 meq/L 3.6-5.5 379) BLOOD GAS, [id number] 13:00:00 Test Item Value Reference Range Interpretation [...] (test code = 1819) 65.0 % GLUCOSE-STAT [id number] 13:00:00 Test Item Value Reference Range Interpretation Comments GLUCOSE RANDOM (BEAKER) (test code 211 mg/dL 70-110 H = 652) HGB/HCT (H&H) - STAT [id number] 13:00:00 Test Item Value Reference Range Interpretation Comments HEMOGLOBIN (BEAKER) (test code = 7.3 g/dL 13.0-16.8 L 410) HEMATOCRIT (BEAKER) (test code = 21.0 % 40.0-50.0 L 411) POTASSIUM-STAT [id number] 12:43:00 Test Item Value Reference Range Interpretation Comments POTASSIUM (BEAKER) (test code = 5.6 meq/L 3.6-5.5 H 379) SODIUM NA-STAT [id number] 12:43:00 Test Item Value Reference Range Interpretation Comments SODIUM (BEAKER) (test code = 381) 133 meq/L 135-148 L BLOOD GAS, [id number] 12:42:00 Test Item Value Reference Range Interpretation [...] (test code = 1819) 65.0 % GLUCOSE-STAT [id number] 12:42:00 Test Item Value Reference Range Interpretation Comments GLUCOSE RANDOM (BEAKER) (test code 201 mg/dL 70-110 H = 652) HGB/HCT (H&H) - STAT [id number] 12:42:00 Test Item Value Reference Range Interpretation Comments HEMOGLOBIN (BEAKER) (test code = 7.9 g/dL 13.0-16.8 L 410) HEMATOCRIT (BEAKER) (test code = 23.0 % 40.0-50.0 L 411) BLOOD GAS, [id number] 12:21:00 Test Item Value Reference Range Interpretation [...] (test code = 1819) 80.0 % GLUCOSE-STAT [id number] 12:21:00 Test Item Value Reference Range Interpretation Comments GLUCOSE RANDOM (BEAKER) (test code 197 mg/dL 70-110 H = 652) HGB/HCT (H&H) - STAT [id number] 12:21:00 Test Item Value Reference Range Interpretation Comments HEMOGLOBIN (BEAKER) (test code = 7.2 g/dL 13.0-16.8 L 410) HEMATOCRIT (BEAKER) (test code = 21.0 % 40.0-50.0 L 411) SODIUM NA-STAT [id number] 12:21:00 Test Item Value Reference Range Interpretation Comments SODIUM (BEAKER) (test code = 381) 134 meq/L 135-148 L POTASSIUM-STAT [id number] 12:10:00 Test Item Value Reference Range Interpretation Comments POTASSIUM (BEAKER) (test code = 4.6 meq/L 3.6-5.5 379) SODIUM NA-STAT [id number] 08:36:00 Test Item Value Reference Range Interpretation Comments SODIUM (BEAKER) (test code = 381) 135 meq/L 135-148 POTASSIUM-STAT [id number] 08:36:00 Test Item Value Reference Range Interpretation Comments POTASSIUM (BEAKER) (test code = 4.5 meq/L 3.6-5.5 379) BLOOD GAS, [id number] 08:36:00 Test Item Value Reference Range Interpretation [...] (test code = 1819) 87.0 % GLUCOSE-STAT [id number] 08:36:00 Test Item Value Reference Range Interpretation Comments GLUCOSE RANDOM (BEAKER) (test code 138 mg/dL 70-110 H = 652) HGB/HCT (H&H) - STAT [id number] 08:36:00 Test Item Value Reference Range Interpretation Comments HEMOGLOBIN (BEAKER) (test code = 8.9 g/dL 13.0-16.8 L 410) HEMATOCRIT (BEAKER) (test code = 26.0 % 40.0-50.0 L 411) [id number] 07:05:00 Test Item Value Reference Range Interpretation [...] is 2.5-3.5 for patients wiht mechanical heart valves.COMPREHENSIVE METABOLIC [...] S NOT APPLICABLE FOR DIALYSIS PATIEN TS. Title I Assistant ID - OZZY [id number] 05:23:00 Test Item Value Reference Range Interpretation Comments MAGNESIUM (BEAKER) (test code = 2.8 mg/dL 1.6-2.6 H 627) Title I Assistant ID - OZZY WPROTHROMBIN [id number] 05:03:00 Test Item Value Reference Range Interpretation [...] is 2.5-3.5 for patients wiht mechanical heart valves.CBC W/PLT COUNT & AUTO [id number] 04:41:00 Test Item Value Reference Range Interpretation [...] PERCENT (BEAKER) (test code = 2801) POCT-GLUCOSE [id number] 22:22:00 Test Item Value Reference Range Interpretation Comments POC-GLUCOSE METER 153 mg/dL 70-110 H : TESTED A T [facility] 6720 (BEAKER) (test code = [facility], 1538) [address]: Title I Assistant/Techni nuha ID = [id number] for ANJALI AGUILA POCT-GLUCOSE [id number] 17:17:00 Test Item Value Reference Range Interpretation Comments POC-GLUCOSE METER 198 mg/dL 70-110 H : TESTED A T [facility] 6720 (BEAKER) (test code = [facility] [employer] [facility], 1538) [address]: Title I Assistant/Techni nuha ID = [id number] for SAIDA MENDIETA POCT-GLUCOSE [id number] 12:44:00 Test Item Value Reference Range Interpretation Comments POC-GLUCOSE METER 185 mg/dL 70-110 H : TESTED A T [facility] 6720 (BEAKER) (test code = [facility] Caicedo [facility], 1538) [address]: Title I Assistant/Techni nuha ID = [id number] for LENNOX MARTINEZ [id number] 09:04:00 Test Item Value Reference Range Interpretation Comments PARTIAL THROMBOPLASTIN TIME 88.4 seconds 22.5-36.0 H (BEAKER) (test code = 760) POCT-GLUCOSE [id number] 07:56:00 Test Item Value Reference Range Interpretation Comments POC-GLUCOSE METER 154 mg/dL 70-110 H : TESTED A T [facility] 6720 (BEAKER) (test code = [facility], 1538) [address]: Title I Assistant/Techni nuha ID = [id number] for LENNOX MARTINEZ BASIC METABOLIC [id number] 04:36:00 Test Item Value Reference Range Interpretation [...] S NOT APPLICABLE FOR DIALYSIS PATIEN TS. Title I Assistant ID - DBCBC (HEMOGRAM ONLY)2019-10-27 04:03:00 Test [...] WBC 0-0 (BEAKER) (test code = 413) [id number] 02:06:00 Test Item Value Reference Range Interpretation Comments PARTIAL THROMBOPLASTIN TIME 65.3 seconds 22.5-36.0 H (BEAKER) (test code = 760) POCT-GLUCOSE [id number] 22:33:00 Test Item Value Reference Range Interpretation Comments POC-GLUCOSE METER 164 mg/dL 70-110 H : TESTED A T [facility] 6720 (BEAKER) (test code = [facility] Caicedo [facility], 1538) [address]: Title I Assistant/Techni nuha ID = [id number] for ANJALI AGUILA [id number] 18:06:00 Test Item Value Reference Range Interpretation Comments PARTIAL THROMBOPLASTIN TIME 80.0 seconds 22.5-36.0 H (BEAKER) (test code = 760) [id number] 17:13:00 Test Item Value Reference Range Interpretation Comments PARTIAL THROMBOPLASTIN TIME 186.3 seconds 22.5-36.0 HH (BEAKER) (test code = 760) POCT-GLUCOSE [id number] 17:06:00 Test Item Value Reference Range Interpretation Comments POC-GLUCOSE METER 175 mg/dL 70-110 H : TESTED A T [facility] 6720 (BEAKER) (test code = [facility], 1538) 739[address]: Title I Assistant/Techni nuha ID = [id number] for JONATHAN RODRIGEZ POCT-GLUCOSE [id number] 12:28:00 Test Item Value Reference Range Interpretation Comments POC-GLUCOSE METER 136 mg/dL 70-110 H : TESTED A T [facility] 6720 (BEAKER) (test code = [facility], 1538) [address]80[address]: Title I Assistant/Techni nuha ID = [id number] for JONATHAN RODRIGEZ [id number] 10:47:00 Test Item Value Reference Range Interpretation Comments PARTIAL THROMBOPLASTIN TIME 102.9 seconds 22.5-36.0 H (BEAKER) (test code = 760) POCT-GLUCOSE [id number] 08:02:00 Test Item Value Reference Range Interpretation Comments POC-GLUCOSE METER 133 mg/dL 70-110 H : TESTED A T [facility] 6720 (BEAKER) (test code = [facility], 1538) 36996: Title I Assistant/Techni nuha ID = [id number] for JONATHAN RODRIGEZ BASIC METABOLIC [id number] 04:18:00 Test Item Value Reference Range Interpretation [...] S NOT APPLICABLE FOR DIALYSIS PATIEN TS. Title I Assistant ID - GERRY [id number] 03:54:00 Test Item Value Reference Range Interpretation [...] WBC 0-0 (BEAKER) (test code = 413) [id number] 22:02:00 Test Item Value Reference Range Interpretation Comments PARTIAL THROMBOPLASTIN TIME 64.5 seconds 22.5-36.0 H (BEAKER) (test code = 760) POCT-GLUCOSE [id number] 21:44:00 Test Item Value Reference Range Interpretation Comments POC-GLUCOSE METER 129 mg/dL 70-110 H : TESTED A T [facility] 6720 (BEAKER) (test code = [place] [place], 1538) [address]: Title I Assistant/Techni nuha ID = [id number] for CH U, LI [id number] 20:43:00 Test Item Value Reference Range Interpretation Comments PARTIAL THROMBOPLASTIN TIME 50.7 seconds 22.5-36.0 H (BEAKER) (test code = 760) [id number] 17:02:00 Test Item Value Reference Range Interpretation Comments PARTIAL THROMBOPLASTIN TIME 192.2 seconds 22.5-36.0 HH (BEAKER) (test code = 760) POCT-GLUCOSE [id number] 16:58:00 Test Item Value Reference Range Interpretation Comments POC-GLUCOSE METER 131 mg/dL 70-110 H : TESTED A T [facility] 6720 (BEAKER) (test code = [facility], 1538) 21694: Title I Assistant/Techni nuha ID = [id number] for AP ARECE, ISAIAS POCT-GLUCOSE [id number] 14:57:00 Test Item Value Reference Range Interpretation Comments POC-GLUCOSE METER 170 mg/dL 70-110 H : TESTED A T [facility] 6720 (BEAKER) (test code = [facility], 1538) 63376: Title I Assistant/Techni nuha ID = [id number] for CO RTEZ, CHULA POCT-GLUCOSE [id number] 10:15:00 Test Item Value Reference Range Interpretation Comments POC-GLUCOSE METER 170 mg/dL 70-110 H : TESTED A T [facility] 6720 (BEAKER) (test code = [facility], 1538) 638[address]: Title I Assistant/Techni nuha ID = [id number] for CO RTEZ, CHULA BASIC METABOLIC [id number] 06:17:00 Test Item Value Reference Range Interpretation [...] S NOT APPLICABLE FOR DIALYSIS PATIEN TS. Title I Assistant ID - [id number] 06:08:00 Test Item Value Reference Range Interpretation [...] WBC 0-0 (BEAKER) (test code = 413) [id number] 01:00:00 Test Item Value Reference Range Interpretation Comments PARTIAL THROMBOPLASTIN TIME 76.0 seconds 22.5-36.0 H (BEAKER) (test code = 760) POCT-GLUCOSE [id number] 23:53:00 Test Item Value Reference Range Interpretation Comments POC-GLUCOSE METER 166 mg/dL 70-110 H : Notified RN/MD: ([facility]) (test code = TESTED AT [place] [address] 1538) [facility], [address]: Title I Assistant/Techni nuha ID = [id number] for KIAN KAUR POCT-GLUCOSE [id number] 19:04:00 Test Item Value Reference Range Interpretation Comments POC-GLUCOSE METER 191 mg/dL 70-110 H : TESTED A T [facility] 6720 ([facility]) (test code = [facility], 1538) [address]: Title I Assistant/Techni nuha ID = [id number] for STARRELÍAS ZAIDI [id number] 18:02:00 Test Item Value Reference Range Interpretation Comments PARTIAL THROMBOPLASTIN TIME 62.3 seconds 22.5-36.0 H ([facility]) (test code = 760) [id number] 12:39:00 Test Item Value Reference Range Interpretation Comments PARTIAL THROMBOPLASTIN TIME 47.8 seconds 22.5-36.0 H ([facility]) (test code = 760) Prior to initiating heparinPOCT-GLUCOSE [id number] 11:03:00 Test Item Value Reference Range Interpretation Comments POC-GLUCOSE METER 143 mg/dL 70-110 H : TESTED A T [facility] 6720 ([facility]) (test code = [facility], 1538) [address]: Title I Assistant/Techni nuha ID = [id number] for Vinny Domínguez BASIC METABOLIC [id number] 07:38:00 Test Item Value Reference Range Interpretation [...] S NOT APPLICABLE FOR DIALYSIS PATIEN TS. Title I Assistant ID - GALAPHEPATITIS B SURFACE [id number] 07:11:00 Test Item Value Reference Range Interpretation Comments HEPATITIS B SURFACE ANTIGEN (2) Nonreactive Nonreactive (BEAKER) (test code = 2585) Title I Assistant ID - [id number] 06:42:00 Test Item Value Reference Range Interpretation [...] RED BLOOD CELLS 0 /100 WBC 0-0 ([facility]) (test code = 413) POCT-GLUCOSE [id number] 21:49:00 Test Item Value Reference Range Interpretation Comments POC-GLUCOSE METER 136 mg/dL 70-110 H : Notified RN/MD: ([facility]) (test code = TESTED AT [place] [address] 1538) [facility], [address]: Title I Assistant/Techni nuha ID = [id number] for SA NCHEZ, KIAN POCT-GLUCOSE [id number] 19:27:00 Test Item Value Reference Range Interpretation Comments POC-GLUCOSE METER 114 mg/dL 70-110 H : Notified RN/MD: ([facility]) (test code = TESTED AT [place] [address] 1538) [facility], [address]: Title I Assistant/Techni nuha ID = [id number] for SA NCHEZ, KIAN [id number] 16:15:00 Test Item Value Reference Range Interpretation Comments ACTIVATED CLOTTING TIME 241 sec : 74 -137 seconds, ([facility]) (test code = Baseli ne: TESTED AT 441) [address], [address]: Title I Assistant/Techni nuha ID = [id number] for KEMAR IDLORETA, TALHA [id number] 15:48:00 Test Item Value Reference Range Interpretation Comments ACTIVATED CLOTTING TIME 147 sec : 74 -137 seconds, ([facility]) (test code = Baseli ne: TESTED AT 441) [address], [address]: Title I Assistant/Techni nuha ID = [id number] for KEMAR IDLORETA, TALHA POCT-GLUCOSE [id number] 12:05:00 Test Item Value Reference Range Interpretation Comments POC-GLUCOSE METER 154 mg/dL 70-110 H : TESTED A T [facility] 6720 ([facility]) (test code = [facility], 153) [address]: Title I Assistant/Techni nuha ID = [id number] for Do Alfredo chacon POCT-GLUCOSE [id number] 07:41:00 Test Item Value Reference Range Interpretation Comments POC-GLUCOSE METER 144 mg/dL 70-110 H : [facility] (test code = [facility], 1538) [address]: Title I Assistant/Techni nuha ID = [id number] for Alfredo Aguila TROPONIN [id number] 07:06:00 Test Item Value Reference Range Interpretation Comments TROPONIN I (BEAKER) (test code = 10.76 ng/mL 0.00-0.03 HH 397) Troponin I (TnI) [...] failure, acidosis, acute neurological disease, and persistent tachyarrhythmia.Title I Assistant ID - GERRY [id number] 06:37:00 Test Item Value Reference Range Interpretation [...] RED BLOOD CELLS 0 /100 WBC 0-0 (ANSHULAKER) (test code = 413) TROPONIN [id number] 00:49:00 Test Item Value Reference Range Interpretation Comments TROPONIN I (ANSHULAKER) (test code = 6.38 ng/mL 0.00-0.03 397) [...] failure, acidosis, acute neurological disease, and persistent tachyarrhythmia.Title I Assistant ID - [id number] 22:52:00 Test Item Value Reference Range Interpretation Comments PARTIAL THROMBOPLASTIN TIME 33.8 seconds 22.5-36.0 ([facility]) (test code = 760) Prior to initiating heparinPLATELET [id number] 22:44:00 Test Item Value Reference Range Interpretation Comments PLATELET COUNT ([facility]) (test 152 K/CU MM 150-450 code = 756) Title I Assistant ID - [id number] [id number] 20:56:00 Test Item Value Reference Range Interpretation Comments TROPONIN I (ANSHULAKER) (test code = 5.06 ng/mL 0.00-0.03 397) [...] failure, acidosis, acute neurological disease, and persistent tachyarrhythmia.Title I Assistant ID - DBPOCT-GLUCOSE METER 2019-10-22 20:26:00 Test Item Value Reference Range Interpretation Comments POC-GLUCOSE METER 129 mg/dL 70-110 H : TESTED A T [facility] 6720 (BEAKER) (test code = [place], 1538) [address]: Title I Assistant/Techni nuha ID = [id number] for MINAL YOUSIF TROPONIN [id number] 13:12:00 Test Item Value Reference Range Interpretation Comments TROPONIN I (BEAKER) (test code = 0.36 ng/mL 0.00-0.03 HH 397) Troponin I (TnI) [...] failure, acidosis, acute neurological disease, and persistent tachyarrhythmia.Title I Assistant ID Tacos GUALLPA FB-TYPE NATRIURETIC FACTOR (BNP)2019-10-22 13:06:00 Test Item Value Reference Range Interpretation Comments B-TYPE NATRIURETIC PEPTIDE (BEAKER) 106 pg/mL 0-100 H (test code = 700) Title I Assistant ID Tacos GUALLPA ASIC METABOLIC [id number] 13:05:00 Test Item Value Reference Range Interpretation [...] S NOT APPLICABLE FOR DIALYSIS PATIEN TS. Title I Assistant ID Tacos GUALLPA [id number] 13:02:00 Test Item Value Reference Range Interpretation Comments MAGNESIUM (BEAKER) (test code = 2.8 mg/dL 1.6-2.6 H 627) Title I Assistant ID Tacos GUALLPA FHEPATIC FUNCTION [id number] 13:02:00 Test Item Value Reference Range Interpretation [...] (test code = 28 U/L 6-55 347) Title I Assistant ID Tacos GUALLPA [id number] 13:02:00 Test Item Value Reference Range Interpretation Comments LIPASE (BEAKER) (test code = 749) 49 U/L 8-78 Title I Assistant ID Tacos GUALLPA FCBC W/PLT COUNT & AUTO [id number] 12:45:00 Test Item Value Reference Range Interpretation [...] = 2801) RAD, CHEST, 1 VIEW, NON [id number] 12:23:00Reason for exam:->CHEST PAIN FINAL REPORT Chest, one view History: chest pain Comparison: 04/30/2019 Findings:Clear lungs. Normal size heart. No pleural effusion or pneumothorax. Cardiac pacer in place. Impression:No acute findings in the chest Signed: Ivan Milan [facility] Verified Date/Time: 10/22/2019 12 :23:16 Reading Location: [facility] Radiology Reading Room Electronically signed by: IVAN MILAN MD on10/22/2019 12:23 PMPOCT-GLUCOSE [id number] 11:51:00 Test Item Value Reference Range Interpretation Comments POC-GLUCOSE METER 279 mg/dL 70-[address] [facility] 5717 (BEAKER) (test code = [facility] [place] 1538) [address] CBC W/PLT COUNT & AUTO [id number] 11:50:00 Test Item Value Reference Range Interpretation [...] 0-1 H PERCENT (BEAKER) (test code = 1341) BASIC METABOLIC [id number] 10:56:00 Test Item Value Reference Range Interpretation [...] PATIEN TS. RAD, CHEST, 1 VIEW, NON [id number] 08:58:00Reason for exam:->Post device placementShould this be performed at the bedside?->YesFINAL REPORT RAD, CHEST, 1 VIEW, NON DEPT INDICATION: Post device placement COMP ARISON: Prior day's exam FINDINGS: Portable frontal view of the chest. IMPRESSION: Support Lines: Stable. Lungs and pleura: Unchanged airspace and pleural opacities. No pneumothorax.Heart and mediastinum: Stable contours. Stable surgical changes.Additional findings: None. Signed: Dasia Britteport Verified Date/Time: 04/30/2019 08:58:17 Reading Location: [facility] Radiology Reading Room POCT-GLUCOSE [id number] 08:16:00 Test Item Value Reference Range Interpretation Comments POC-GLUCOSE METER 342 mg/dL 70-[address] [facility] 6720 (BEAKER) (test code = [place] 1538) [address] RAD, CHEST, 1 VIEW, NON [id number] 06:14:00Reason for exam:->post device placementShould this be performed at the bedside?->YesFINAL REPORT RAD, CHEST, 1 VIEW, NON DEPT INDICATION: post device placement COMP ARISON: Prior day's exam FINDINGS: Portable frontal view of the chest. IMPRESSION: Support Lines: Interval placement of a right chest wall pacer device with leads overlying right atrium. Lungs and pleura: Unchanged airspace and pleural opacities. No pneumothorax.Heart and mediastinum: Stable contours. Additional findings: Vascular stent over the left axilla. Signed: Sigrid Vieyra Verified Date/Time: 04/30/2019 06:14:19 Reading Location: [address] Reading Room POCT-GLUCOSE [id number] 01:09:00 Test Item Value Reference Range Interpretation Comments POC-GLUCOSE METER 187 mg/dL 70-110 H TESTED AT [place] [address] ([facility]) (test code = [facility] 1538) [address] POCT-GLUCOSE [id number] 20:12:00 Test Item Value Reference Range Interpretation Comments POC-GLUCOSE METER 175 mg/dL 70-110 H TESTED AT [place] [address] ([facility]) (test code = [facility] 1538) [address] POCT-GLUCOSE [id number] 17:34:00 Test Item Value Reference Range Interpretation Comments POC-GLUCOSE METER 88 mg/dL 70-110 TESTED AT [place] [address] ([facility]) (test code = [facility] [address] 1538) POCT-GLUCOSE [id number] 13:28:00 Test Item Value Reference Range Interpretation Comments POC-GLUCOSE METER 131 mg/dL 70-110 H TESTED AT [place] [address] ([facility]) (test code = [facility] 1538) [address] RHEUMATOID FACTOR AB, REFLEX TO [id number] 11:35:00 Test Item Value Reference Range Interpretation Comments RHEUMATOID FACTOR ([facility]) (test Positive code = 573) RHEUMATOID FACTOR [id number] 11:35:00 Test Item Value Reference Range Interpretation [...] PATIEN TS. CBC W/PLT COUNT & AUTO [id number] 09:22:00 Test Item Value Reference Range Interpretation [...] PERCENT (BEAKER) (test code = 2801) PROTHROMBIN [id number] 09:20:00 Test Item Value Reference Range Interpretation [...] is 2.5-3.5 for patients wiht mechanical heart valves.Within 24 hours, if on CoumadinPOCT- GLUCOSE [id number] 07:57:00 Test Item Value Reference Range Interpretation Comments POC-GLUCOSE METER 183 mg/dL 70-110 H TESTED AT [place] [address] ([facility]) (test code = [facility]iced[facility] 1538) [address] POCT-GLUCOSE [id number] 21:30:00 Test Item Value Reference Range Interpretation Comments POC-GLUCOSE METER 326 mg/dL 70-110 H Will Repea t Test/TESTED ([facility]) (test code = AT [address] 1538) [facility] [address] POCT-GLUCOSE [id number] 17:47:00 Test Item Value Reference Range Interpretation Comments POC-GLUCOSE METER 332 mg/dL 70-110 H TESTED AT [place] [address] ([facility]) (test code = [facility]iced[facility] 1538) [address] POCT-GLUCOSE [id number] 11:54:00 Test Item Value Reference Range Interpretation Comments POC-GLUCOSE METER 171 mg/dL 70-110 H TESTED AT [place] [address] ([facility]) (test code = [facility] 1538) [address] POCT-GLUCOSE [id number] 08:21:00 Test Item Value Reference Range Interpretation Comments POC-GLUCOSE METER 171 mg/dL 70-110 H TESTED AT [place] [address] ([facility]) (test code = [facility] [place] [address]) [address] CBC W/PLT COUNT & AUTO [id number] 07:27:00 Test Item Value Reference Range Interpretation Comments WHITE BLOOD CELL COUNT ([facility]) 13.7 K/ L 3.5-10.5 H (test code = 775) RED BLOOD CELL COUNT ([facility]) 2.93 M/ L 4.63-6.08 L (test code = 761) HEMOGLOBIN (BEAKER) (test code = 9.3 GM/DL 13.7-17.5 L 410) HEMATOCRIT ([facility]) (test code = 28.0 % 40.1-51.0 L 411) MEAN CORPUSCULAR VOLUME ([facility]) 95.6 fL 79.0-92.2 H (test code = [...] Received comment: User comments: Slide comments:BASIC METABOLIC [id number] 05:54:00 Test Item Value Reference Range Interpretation [...] NOT APPLICABLE FOR DIALYSIS PATIEN TS. POCT-GLUCOSE [id number] 21:28:00 Test Item Value Reference Range Interpretation Comments POC-GLUCOSE METER 296 mg/dL 70-110 H TESTED AT [place] [address] ([facility]) (test code = [facility] 1538) [address] POCT-GLUCOSE [id number] 17:32:00 Test Item Value Reference Range Interpretation Comments POC-GLUCOSE METER 330 mg/dL 70-110 H TESTED AT [place] [address] ([facility]) (test code = [facility] 1538) [address] CBC W/PLT COUNT & AUTO [id number] 16:02:00 Test Item Value Reference Range Interpretation [...] 474) ARTIFACT (CELLAVISION)(BEAKER) Present (test code = 2062) PLATELET CONCENTRATION Adequate (CELLAVISION)(BEAKER) (test code = 9528) Received comment: User comments: Slide comments:POCT-GLUCOSE [id number] 11:35:00 Test Item Value Reference Range Interpretation Comments POC-GLUCOSE METER 248 mg/dL 70-[address] [facility] 6720 (BEAKER) (test code = [place]iced[place] 1538) [address] T4, [id number] 08:58:00 Test Item Value Reference Range Interpretation Comments FREE T4 (BEAKER) (test code = 655) 1.29 ng/dL 0.70-1.48 HEMOGLOBIN [id number] 08:50:00 Test Item Value Reference Range Interpretation Comments HEMOGLOBIN A1C (BEAKER) (test code = 7.4 % 4.3-6.1 H 368) LIPID [id number] 08:07:00 Test Item Value Reference Range Interpretation Comments TRIGLYCERIDES (BEAKER) (test code = 115 mg/dL 540) CHOLESTEROL (BEAKER) (test code = 114 mg/dL 631) HDL CHOLESTEROL (BEAKER) (test code 56 mg/dL = 976) LDL CHOLESTEROL CALCULATED (BEAKER) 35 mg/dL (test code = 633) Triglyceride Reference Range: Low Risk <150 Borderline 150-199 High Risk 200- 499 Very High Risk >=500Cholesterol Reference Range: Low Risk <200 Borderline 200-239 High Risk >240HDL Cholesterol Reference Range: Low Risk >=60 High Risk <40LDL Cholesterol Reference Range: Optimal <100 Near Optimal 100-129 Borderline 130-159 High 160-189 Very High >=190BASIC METABOLIC [id number] 08:07:00 Test Item Value Reference Range Interpretation Comments SODIUM (BEAKER) 131 meq/L 136-145 L (test code = 381) POTASSIUM (BEAKER) 4.9 meq/L 3.5-5.1 (test code = 379) CHLORIDE (BEAKER) 96 meq/L 98-107 L (test code = 382) CO2 (BEAKER) (test 24 meq/L 22-29 code = 355) BLOOD UREA NITROGEN 56 mg/dL 7-21 H ([facility]) (test code = 354) CREATININE ([facility]) 6.09 mg/dL 0.57-1.25 H (test code = 358) GLUCOSE RANDOM 282 mg/dL 70-105 H ([facility]) (test code = 652) CALCIUM (AKER) 8.6 mg/dL 8.4-10.2 (test code = 697) EGFR ([facility]) (test 9 mL/min/1.73 ESTIMAT ED GFR IS code = 1092) sq m NOT ACCURATE CREATININE CLEARANCE IN PREDICTING GLOMERULAR FILTRATION RATE . ESTIMATED GFR I S NOT APPLICABLE FOR DIALYSIS PATIEN TS. TSH/FREE T4 IF [id number] 08:04:00 Test Item Value Reference Range Interpretation Comments THYROID STIMULATING HORMONE 0.06 uIU/mL 0.35-4.94 L ([facility]) (test code = 772) POCT-GLUCOSE [id number] 07:38:00 Test Item Value Reference Range Interpretation Comments POC-GLUCOSE METER 316 mg/dL 70-110 H TESTED AT [place] [address] ([facility]) (test code = ALPHONSO Caicedo [facility] 1538) [address] POCT-GLUCOSE [id number] 21:22:00 Test Item Value Reference Range Interpretation Comments POC-GLUCOSE METER 194 mg/dL 70-110 H TESTED AT [place] [address] ([facility]) (test code = ALPHONSO Caicedo [facility] 1538) [address] CBC W/PLT COUNT & AUTO [id number] 19:30:00 Test Item Value Reference Range Interpretation Comments WHITE BLOOD CELL COUNT ([facility]) 16.9 K/ L 3.5-10.5 H (test code = 775) RED BLOOD CELL COUNT ([facility]) 3.08 M/ L 4.63-6.08 L (test code = 761) HEMOGLOBIN (BEAKER) (test code = 9.8 GM/DL 13.7-17.5 L 410) HEMATOCRIT ([facility]) (test code = 29.5 % 40.1-51.0 L 411) MEAN CORPUSCULAR VOLUME ([facility]) 95.8 fL 79.0-92.2 H (test code = [...] = 3438) Received comment: User comments: Slide comments:TROPONIN [id number] 19:20:00 Test Item Value Reference Range Interpretation [...] disease, and persistent tachyarrhythmia.B-TYPE NATRIURETIC FACTOR (BNP) 2019-04-26 19:20:00 Test Item Value Reference Range Interpretation Comments B-TYPE NATRIURETIC PEPTIDE (BEAKER) 144 pg/mL 0-100 H (test code = 700) [id number] 19:17:00 Test Item Value Reference Range Interpretation [...] is 2.5-3.5 for patients wiht mechanical heart valves.BASIC METABOLIC [id number] 19:14:00 Test Item Value Reference Range Interpretation [...] S NOT APPLICABLE FOR DIALYSIS PATIEN TS. [id number] 19:13:00 Test Item Value Reference Range Interpretation Comments MAGNESIUM (BEAKER) (test code = 2.4 mg/dL 1.6-2.6 627) RAD, CHEST, 1 VIEW, NON [id number] 17:54:00Reason for exam:->ABNORMAL ECG FINAL REPORT Chest, one view. HISTORY: ABNORMAL ECG COMPARISON: Radiograph from04/14/2019 IMPRESSION: The left pleural effusion has increased and is now likely moderate volume. Mild left basilar subsegmental atelectasis. The cardiac silhouette is obscured. A stent overlies the left axillary vasculature. A device overlies the midline chest. No pneumothorax. No acute bony abnormality. Signed: Karon Reynoso MDReport Verified Date/Time: 04/26/2019 17:54:42 Reading Location: [facility] [id number] Consult Reading Room C-REACTIVE [id number] 17:19:00 Test Item Value Reference Range Interpretation Comments C-REACTIVE PROTEIN (BEAKER) (test 0.22 mg/dL 0.00-0.50 code = 676) POCT-GLUCOSE [id number] 15:56:00 Test Item Value Reference Range Interpretation Comments POC-GLUCOSE METER 283 mg/dL 70-[address] [facility] 6720 (BEAKER) (test code = ALPHONSO Caicedo [place] 1538) [address] POCT-GLUCOSE [id number] 11:40:00 Test Item Value Reference Range Interpretation Comments POC-GLUCOSE METER 319 mg/dL 70-[address] [facility] 6720 (BEAKER) (test code = ALPHONSO Caicedo [place] 1538) [address] CBC W/PLT COUNT & AUTO [id number] 09:52:00 Test Item Value Reference Range Interpretation [...] (BEAKER) (test code = 2801) BASIC METABOLIC [id number] 08:06:00 Test Item Value Reference Range Interpretation [...] S NOT APPLICABLE FOR DIALYSIS PATIEN TS. [id number] 07:34:00 Test Item Value Reference Range Interpretation Comments PHOSPHORUS (BEAKER) 5.3 mg/dL 2.3-4.7 H Specimen slightly (test code = 604) hemolyzed POCT-GLUCOSE [id number] 07:18:00 Test Item Value Reference Range Interpretation Comments POC-GLUCOSE METER 364 mg/dL 70-110 H Notified R N MD/TESTED (BEAKER) (test code = AT [facility] 6720 [facility] 1538) [facility] 7703 0 HEPATITIS B SURFACE [id number] 22:01:00 Test Item Value Reference Range Interpretation Comments HEPATITIS B SURFACE ANTIGEN (2) Nonreactive Nonreactive (BEAKER) (test code = 2585) POCT-GLUCOSE [id number] 21:39:00 Test Item Value Reference Range Interpretation Comments POC-GLUCOSE METER 334 mg/dL 70-110 H Notified R N MD/TESTED (BEAKER) (test code = AT [facility] 6720 [facility] 1538) [facility] 7[address] 0 POCT-GLUCOSE [id number] 18:23:00 Test Item Value Reference Range Interpretation Comments POC-GLUCOSE METER 299 mg/dL 70-[address] [facility] 6720 ([facility]) (test code = ALPHONSO R [place] [address]) [address] BASIC METABOLIC [id number] 16:58:00 Test Item Value Reference Range Interpretation [...] PATIEN TS. CBC W/PLT COUNT & AUTO [id number] 16:41:00 Test Item Value Reference Range Interpretation [...] PERCENT (BEAKER) (test code = 2801) POCT-GLUCOSE [id number] 16:07:00 Test Item Value Reference Range Interpretation Comments POC-GLUCOSE METER 303 mg/dL 70-[address] [facility] 6720 (BEAKER) (test code = ALPHONSO [place] 1538) [address] TROPONIN [id number] 15:56:00 Test Item Value Reference Range Interpretation [...] acidosis, acute neurological disease, and persistent tachyarrhythmia.TROPONIN [id number] 08:07:00 Test Item Value Reference Range Interpretation [...] acute neurological disease, and persistent tachyarrhythmia.BASIC METABOLIC [id number] 08:05:00 Test Item Value Reference Range Interpretation [...] NOT APPLICABLE FOR DIALYSIS PATIEN TS. POCT-GLUCOSE [id number] 06:48:00 Test Item Value Reference Range Interpretation Comments POC-GLUCOSE METER 378 mg/dL 70-[address] [facility] 6720 (BEAKER) (test code = ALPHONSO [place] 1538) [address] CBC W/PLT COUNT & AUTO [id number] 03:42:00 Test Item Value Reference Range Interpretation [...] (BEAKER) (test code = 2801) BASIC METABOLIC [id number] 03:38:00 Test Item Value Reference Range Interpretation [...] NOT APPLICABLE FOR DIALYSIS PATIEN TS. TROPONIN [id number] 03:38:00 Test Item Value Reference Range Interpretation [...] neurological disease, and persistent tachyarrhythmia.CT, BRAIN, WITHOUT [id number] 03:13:00Reason for exam:->LOSS OF CONSCIOUSNESSWhat is the patient's sedation requirement?->No SedationFINAL REPORT EXAM: CT head without contrast. CLINICAL HISTORY: LOSS OF CONSCIOUSNESS. BLURRY VISION COMPARISON: None. TECHNIQUE: CT images of the head were obtained without intrave nous contrast. This exam was performed according to our departmental dose optimization program whichincludes automated exposure control, adjustment of the mA and/or kV according to patient's size and/or use of iterative reconstructive technique. FINDINGS:There is mild generalized parenchymal atrophy.There is intracranial calcific atherosclerosis.There is no acute [...] persists. Signed: Pia White MDReport Verified Date/Time: 0 04/14/2019 03:13:43 RAD, CHEST, 1 VIEW, NON [id number] 02:37:00Reason for exam:->LOSS OF CONSCIOUSNESSShould this be performed at the bedside?->Yes FINAL REPORT EXAMINATION: AP PORTABLE CHEST RADIOGRAPH CLINICAL INDICATION: Loss of consciousness IMPRESSION: Compared with 01/19/2019. Asymmetric curvilinear and patchy opacities persist at the left lung base, nonspecific but possibly reflecting atelectasis or scarring given the mo rphology, distribution and appearance of the prior study. New subtle radiolucency is noted at the left lung base with a smooth margin which [...] characterization if clinically warranted. Signed: Jonathan Centeno MDReport Verified Date/Time: 04/14/2019 02:37:40 Reading Location: [address] Reading Room AFB CULTURE + [id number] 10:35:00 Test Item Value Reference Range Interpretation Comments CULTURE (BEAKER) (test No acid-fast bacilli code = 1095) isolated in 42 days AFB SMEAR ([facility]) No acid fast bacilli (test code = 994) seen FUNGUS CULTURE + [id number] 19:02:00 Test Item Value Reference Range Interpretation Comments CULTURE (BEAKER) (test No fungus isolated in code = 1095) 28 days FUNGUS SMEAR ([facility]) No fungi seen (test code = 1406) POCT-GLUCOSE [id number] 12:35:00 Test Item Value Reference Range Interpretation Comments POC-GLUCOSE METER 214 mg/dL 70-110 H TESTED AT [place] [address] ([facility]) (test code = ALPHONSO [place] 1538) [address] BLOOD [id number] 12:01:00 Test Item Value Reference Range Interpretation Comments CULTURE (BEAKER) (test No growth in 5 days code = 1095) BLOOD [id number] 12:01:00 Test Item Value Reference Range Interpretation Comments CULTURE (BEAKER) (test No growth in 5 days code = 1095) POCT-GLUCOSE [id number] 07:49:00 Test Item Value Reference Range Interpretation Comments POC-GLUCOSE METER 174 mg/dL 70-110 H TESTED AT [place] [address] ([facility]) (test code = [place]SO [place] 1538) [address] MR, CARDIAC WITHOUT [id number] 07:10:00Reason for exam:->r/o constrictive pericarditisFINAL REPORT Cardiac MRI dated 22 Jan 2019 INDICATION: Is a 68 year-old male with with past medical history of end-stage renal disease, coronary artery disease, PCI, on anticoagulation, there is a concern for underlying constrictive physiology. TECHNIQUE: Tali 3 Shauna INGENIAMRI scanner. Morphologic and dynamic cine imaging were performed in multiple projections without theadministration. Finally, flow quantification sequences were performed to [...] In the four-chamber orientation, circumferential pericardial effusion isseen, overall mild to moderate in nature. In the four-chamber orientation, and during end diastole, the maximum thickness of the pericardial effusion adjacent to the free wall of the left ventricle is a pproximately 9 to 10 mm. Intermediate signal intensity [...] are as follows: EDV = 177 cc; ESV = 73 cc; strokevolume = 105 cc; and ejection fraction = 59%. Calculated absolute cardiac output = 8.5 liters/min. Absolute left ventricular mass = 108 grams. The right ventricle is normal in size and function. Quantit ative values are as follows: EDV = 206 cc; ESV = 78 cc; stroke volume = 102 cc; and ejection fraction = 57%. Index RV EDV = 82 cc/sq m that is within normal reference range. Cine imaging and flow quantification reveals no gross abnormality of the mitral, aortic and tricuspid valve function. Gadoliniumwas not administered. Ventricular thrombus is not present. [...] underlying constrictive physiology. Note, multiple real-time imaging wasperformed, with adequate patient education, however, there was only limited movement of the diaphragm during inspiration, and therefore the result could be limited by patient factor. In summary, whilstsome pericardial effusion is seen and septal bounce [...] MDReport Verified Date/Time: 01/23/2019 07:10:40 Reading Location: [place] [address] Cardiology MRI COMPREHENSIVE METABOLIC [id number] 05:56:00 Test Item Value Reference Range Interpretation [...] NOT APPLICABLE FOR DIALYSIS PATIEN TS. C-REACTIVE [id number] 05:55:00 Test Item Value Reference Range Interpretation Comments C-REACTIVE PROTEIN (BEAKER) (test 9.80 mg/dL 0.00-0.50 H code = 676) CBC W/PLT COUNT & AUTO [id number] 05:20:00 Test Item Value Reference Range Interpretation [...] PERCENT (BEAKER) (test code = 2801) POCT-GLUCOSE [id number] 22:15:00 Test Item Value Reference Range Interpretation Comments POC-GLUCOSE METER 183 mg/dL 70-[address] [facility] 6720 ([facility]) (test code = [facility] [place] 1538) [address] BODY FLUID CULTURE + GRAM [id number] 13:25:00 Test Item Value Reference Range Interpretation Comments CULTURE (BEAKER) (test No growth code = 1095) GRAM STAIN RESULT <1+ White blood cells (BEAKER) (test code = seen 1123) GRAM STAIN RESULT No organisms seen (BEAKER) (test code = 89814) POCT-GLUCOSE [id number] 12:07:00 Test Item Value Reference Range Interpretation Comments POC-GLUCOSE METER 275 mg/dL 70-[address] [facility] 6720 ([facility]) (test code = [facility] [place] 1538) [address] POCT-GLUCOSE [id number] 07:57:00 Test Item Value Reference Range Interpretation Comments POC-GLUCOSE METER 160 mg/dL 70-[address] [facility] 6720 ([facility]) (test code = [facility] [place] 1538) [address] POCT-GLUCOSE [id number] 21:56:00 Test Item Value Reference Range Interpretation Comments POC-GLUCOSE METER 210 mg/dL 70-[address] [facility] 6720 ([facility]) (test code = [facility] [place] 1538) [address] BODY FLUID [id number] 18:30:00 Test Item Value Reference Range Interpretation Comments CRYSTALS, BODY FLUID No crystals seen. (BEAKER) (test code = 2165) [id number] Slade Granados MD ([facility]) (test code = (electronic signature) 6955) POCT-GLUCOSE [id number] 17:51:00 Test Item Value Reference Range Interpretation Comments POC-GLUCOSE METER 152 mg/dL 70-[address] [facility] 6720 (BEAKER) (test code = ALPHONSO Caicedo [facility] 1538) [address] [id number] 13:48:00 Test Item Value Reference Range Interpretation Comments PHOSPHORUS (BEAKER) (test code = 4.7 mg/dL 2.3-4.7 604) BODY FLUID CULTURE + GRAM [id number] 12:29:00 Test Item Value Reference Range Interpretation Comments CULTURE (BEAKER) (test No growth code = 1095) GRAM STAIN RESULT <1+ White blood cells (BEAKER) (test code = seen 1123) GRAM STAIN RESULT No organisms seen (BEAKER) (test code = 75270) POCT-GLUCOSE [id number] 11:37:00 Test Item Value Reference Range Interpretation Comments POC-GLUCOSE METER 295 mg/dL 70-110 H TESTED AT [place] [address] (BEAKER) (test code = ALPHONSO Caicedo [facility] 1538) [address] POCT-GLUCOSE [id number] 07:36:00 Test Item Value Reference Range Interpretation Comments POC-GLUCOSE METER 219 mg/dL 70-110 H TESTED AT [place] [address] (BEAKER) (test code = [facility] Sascha [facility] 1538) [address] [id number] 06:49:00 Test Item Value Reference Range Interpretation Comments MAGNESIUM (BEAKER) (test code = 1.9 mg/dL 1.6-2.6 627) BASIC METABOLIC [id number] 06:49:00 Test Item Value Reference Range Interpretation [...] PATIEN TS. CBC W/PLT COUNT & AUTO [id number] 05:55:00 Test Item Value Reference Range Interpretation [...] PERCENT (BEAKER) (test code = 2801) POCT-GLUCOSE [id number] 21:34:00 Test Item Value Reference Range Interpretation Comments POC-GLUCOSE METER 218 mg/dL 70-[address] [facility] 67 ([facility]) (test code = [facility] 1538) [address] POCT-GLUCOSE [id number] 17:42:00 Test Item Value Reference Range Interpretation Comments POC-GLUCOSE METER 209 mg/dL 70-110 H TESTED AT [place] [address] ([facility]) (test code = [facility] 1538) [address] POCT-GLUCOSE [id number] 12:00:00 Test Item Value Reference Range Interpretation Comments POC-GLUCOSE METER 256 mg/dL 70-110 H TESTED AT [place] [address] ([facility]) (test code = [facility] 1538) [address] POCT-GLUCOSE [id number] 08:07:00 Test Item Value Reference Range Interpretation Comments POC-GLUCOSE METER 226 mg/dL 70-110 H TESTED AT [place] [address] ([facility]) (test code = [facility] 1538) [address] BASIC METABOLIC [id number] 06:16:00 Test Item Value Reference Range Interpretation [...] APPLICABLE FOR DIALYSIS PATIEN TS. VANCOMYCIN LEVEL, [id number] 06:16:00 Test Item Value Reference Range Interpretation Comments VANCOMYCIN RANDOM (BEAKER) (test 15.3 ug/mL code = 523) Reference Range: No NormalsCBC W/PLT COUNT & AUTO [id number] 06:16:00 Test Item Value Reference Range Interpretation [...] 0-1 PERCENT (BEAKER) (test code = 2801) [id number] 06:07:00 Test Item Value Reference Range Interpretation Comments MAGNESIUM (BEAKER) (test code = 2.0 mg/dL 1.6-2.6 627) POCT-GLUCOSE [id number] 21:22:00 Test Item Value Reference Range Interpretation Comments POC-GLUCOSE METER 276 mg/dL 70-[address] [facility] 6720 (BEAKER) (test code = [place] 1538) [address] BODY FLUID CELL COUNT WITH [id number] 19:44:00 Test Item Value Reference Range Interpretation [...] = 2873) BODY FLUID CELL COUNT WITH [id number] 19:38:00 Test Item Value Reference Range Interpretation [...] code = 2873) LACTATE DEHYDROGENASE (LDH), BODY [id number] 19:16:00 Test Item Value Reference Range Interpretation [...] of specimen.RAD, CHEST, PA OR AP, 1 [id number] 19:12:00Reason for exam:->s/p left thoracentesisFINAL REPORT History: [...] stent overlies the right subclavian region. Signed: Yasmeen Alba MDReport Verified Date/Time: 01/19/2019 19:12:04 Reading Location: [address] Reading Room 07:12 PMPH, BODY [id number] 19:06:00 Test Item Value Reference Range Interpretation Comments PH, BODY FLUID (BEAKER) (test code = 8.00 1530) ALBUMIN, BODY [id number] 18:55:00 Test Item Value Reference Range Interpretation Comments ALBUMIN FLUID (BEAKER) (test code = 2.9 gm/dL 501) Reference Range: No Normals Assay performance has not been validated for this type of specimen.AMYLASE, BODY [id number] 18:55:00 Test Item Value Reference Range Interpretation Comments AMYLASE FLUID (BEAKER) (test code = 18 U/L 30-110 L 350) Absence of reference range indicates that normals have not been defined.Assay performance has not been validated for this type of specimen.LACTATE DEHYDROGENASE (LDH), BODY [id number] 18:55:00 Test Item Value Reference Range Interpretation [...] validated for this type of specimen.TRIGLYCERIDES, BODY [id number] 18:55:00 Test Item Value Reference Range Interpretation Comments TRIGLYCERIDES FLUID (BEAKER) (test 49 mg/dL code = 539) Reference Range: No Normals Assay performance has not been validated for this type of specimen.CREATININE, BODY [id number] 18:55:00 Test Item Value Reference Range Interpretation Comments CREATININE FLUID (BEAKER) (test 3.31 mg/dL code = 677) Reference Range: No Normals Assay performance has not been validated for this type of specimen.GLUCOSE, BODY [id number] 18:55:00 Test Item Value Reference Range Interpretation Comments GLUCOSE, BODY FLUID (BEAKER) (test 204 mg/dL 70-110 H code = 1528) Absence of reference range indicates that normals have not been defined.Assay performance has not been validated for this type of specimen.SPECIFIC GRAVITY, BODY [id number] 18:49:00 Test Item Value Reference Range Interpretation Comments SP GRAVITY MISCELLANEOUS (BEAKER) (test 1.030 code = 557) Reference Range: No NormalsU/S, [id number] 18:35:00Laterality?- >LeftReason for exam:->pleural effusionFINAL REPORT Ultrasound Guided left Thoracentesis: Modality: Ultrasound Approach: Left Posterior Lateral Intercostal Sedation: None Findings: Informed consent was obtained. After an appropriate site for drainage was found, the skin was prepped and draped, and local anesthesia was given. A 4 Lao catheter was inserted into the left pleural space under ultrasound guidance, and approximately 1000 cc of yellow pleural fluid was aspirated. The catheter was removed. No immediate complications were noted. A postprocedure chest radiograph revealed no evidence of pneumothorax. Impression: 1. Uncomplicated ultrasound-guided left thoracentesis. Signed: Perfecto Arzate Verified Date/Time: 01/19/2019 18:35:33 Reading Location: [address] Reading Room POCT-GLUCOSE [id number] 18:27:00 Test Item Value Reference Range Interpretation Comments POC-GLUCOSE METER 245 mg/dL 70-110 H TESTED AT [place] [address] ([facility]) (test code = ALPHONSO Caicedo [facility] 1538) [address] POCT-GLUCOSE [id number] 13:05:00 Test Item Value Reference Range Interpretation Comments POC-GLUCOSE METER 169 mg/dL 70-[address] [facility] 6720 ([facility]) (test code = [facility] 1538) [address] RAD, CHEST, 1 VIEW, NON [id number] 10:50:00Reason for exam:->s/p pericardial drainShould this be [...] MDReport Verified Date/Time: 01/19/2019 10:50:13 Reading Location: [address] Transitional Reading Room VANCOMYCIN LEVEL, [id number] 09:24:00 Test Item Value Reference Range Interpretation Comments VANCOMYCIN RANDOM (BEAKER) (test 31.8 ug/mL code = 523) Reference Range: No NormalsBASIC METABOLIC [id number] 05:55:00 Test Item Value Reference Range Interpretation [...] PATIEN TS. CBC W/PLT COUNT & AUTO [id number] 05:07:00 Test Item Value Reference Range Interpretation [...] PERCENT (BEAKER) (test code = 2801) POCT-GLUCOSE [id number] 00:04:00 Test Item Value Reference Range Interpretation Comments POC-GLUCOSE METER 134 mg/dL 70-[address] [facility] 6720 (BEAKER) (test code = [facility] 1538) [address] POCT-GLUCOSE [id number] 21:27:00 Test Item Value Reference Range Interpretation Comments POC-GLUCOSE METER 227 mg/dL 70-110 H TESTED AT [place] [address] ([facility]) (test code = [facility] 1538) [address] BODY FLUID CELL COUNT WITH [id number] 19:53:00 Test Item Value Reference Range Interpretation Comments APPEARANCE FLUID (BEAKER) Bloody Clear A (test code = 510) COLOR FLUID (BEAKER) (test Red Colorless, Straw A code = 511) RBC FLUID (BEAKER) (test code 570626 /cu mm <=1 H = 513) ADJUSTED [...] Tube (test code = 2873) ALBUMIN, BODY [id number] 19:29:00 Test Item Value Reference Range Interpretation Comments ALBUMIN FLUID (BEAKER) (test code = 3.3 gm/dL 501) Reference Range: No Normals Assay performance has not been validated for this type of specimen.[id number] 09:21:00 Test Item Value Reference Range Interpretation Comments PROCALCITONIN (BEAKER) (test code 0.53 ng/mL <0.05 H = 3036) SEPSIS RISK (ng/mL)Low: 0.05-0.50Intermediate: 0.51-2.00High: >=2.01TROPONIN [id number] 08:35:00 Test Item Value Reference Range Interpretation [...] H (test code = 700) BASIC METABOLIC [id number] 08:30:00 Test Item Value Reference Range Interpretation [...] APPLICABLE FOR DIALYSIS PATIEN TS. HEPATIC FUNCTION [id number] 08:28:00 Test Item Value Reference Range Interpretation [...] code = 14 U/L 6-55 347) PROTHROMBIN [id number] 08:25:00 Test Item Value Reference Range Interpretation Comments PROTIME (BEAKER) (test code = 16.7 seconds 11.7-14.7 H 759) INR (BEAKER) (test code = 370) 1.4 <=5.9 RECOMMENDED COUMADIN/WARFARIN INR THERAPY RANGESSTANDARD DOSE: 2.0 - 3.0 Includes: PROPHYLAXIS for venous thrombosis, systemic embolization; TREATMENT for venous thrombosis and/or pulmonary embolus.HIGH RISK: Target INR is 2.5-3.5 for patients with mechanical heart valves.RAD, CHEST, 1 VIEW, NON [id number] 08:09:00Reason for exam:->feverShould this be performed at [...] appears clear. No pneumothorax. Signed: Graham Chan MDReportVerified Date/Time: 01/18/2019 08:09:08 Reading Location: [facility] Radiology Reading Room CBC W/PLT [...] (BEAKER) (test code = 2801) POCT-LACTIC ACID, [id number] 08:06:00 Test Item Value Reference Range Interpretation Comments POC-LACTIC ACID, 1.0 mmol/L 0.9-1.7 TESTED AT [facility] 6720 VENOUS (BEAKER) (test [place] code = 2805) [address] BLOOD [id number] 08:00:00 Test Item Value Reference Range Interpretation Comments CULTURE (BEAKER) (test No growth in 5 days code = 1095) BLOOD [id number] 08:00:00 Test Item Value Reference Range Interpretation Comments CULTURE (BEAKER) (test No growth in 5 days code = 1095) HEMOGLOBIN [id number] 20:14:00 Test Item Value Reference Range Interpretation Comments HEMOGLOBIN A1C (BEAKER) (test code = 6.8 % 4.3-6.1 H 368) RAD, CHEST, 1 VIEW, NON [id number] 16:01:00Reason for exam:->respiratory insufficiencyShould this be performed at the bedside?->YesFINAL REPORT Clinical History: Respiratory insufficiency Comparison Study: January 07, 2019 Findings: The cardiac silhouette is enlarged. The lungs are within normal limits. The pleuralspaces are clear. No significant bony or soft tissue abnormalities are seen. A stent projects over the left shoulder. Impression: Cardiomegaly. Signed: Acosta Beckereport Verified Date/Time: 01/08/2019 16:01:59 Reading Location: [address] Consult Reading Room POCT- GLUCOSE [id number] 12:01:00 Test Item Value Reference Range Interpretation Comments POC-GLUCOSE METER 178 mg/dL 70-[address] [facility] 6720 (BEAKER) (test code = ALPHONSO Caicedo [facility] 1538) [id number] BASIC METABOLIC [id number] 06:13:00 Test Item Value Reference Range Interpretation [...] code = 412) PLATELET COUNT (BEAKER) (test 256 K/CU MM 150-450 code = 756) MEAN PLATELET VOLUME (BEAKER) 11.9 fL 9.4-12.4 (test code = 754) NUCLEATED RED BLOOD CELLS 0 /100 WBC 0-0 (BEAKER) (test code = 413) POCT-GLUCOSE [id number] 21:50:00 Test Item Value Reference Range Interpretation Comments POC-GLUCOSE METER 211 mg/dL 70-[address] [facility] 6720 (BEAKER) (test code = ALPHONSO KILPATRICK 1538) [id number] POCT-GLUCOSE [id number] 18:22:00 Test Item Value Reference Range Interpretation Comments POC-GLUCOSE METER 118 mg/dL 70-110 H TESTED AT [place] [address] ([facility]) (test code = ALPHONSO [place] 1538) [address] POCT-GLUCOSE [id number] 12:04:00 Test Item Value Reference Range Interpretation Comments POC-GLUCOSE METER 158 mg/dL 70-110 H TESTED AT [place] [address] ([facility]) (test code = ALPHONSO Caicedo [facility] 1538) [address] RAD, CHEST, 1 VIEW, NON [id number] 10:43:00Reason for exam:->respiratory insufficiencyShould this be performed at the bedside?->YesFINAL REPORT INDICATION: respiratory insufficiency COMPARISON:January 06 TECHNIQUE: Chest radiograph, single view, portable technique. FINDINGS / IMPRESSION: Enlarged heart shadow and nonspecific left retrocardiac opacity again demonstrated. Pulmonary veins are prominent but no overt pulmonary edema. No pneumothorax. Osseous structures unremarkable. Signed: Franky Mix MDReport Verified Date/Time: 01/07/2019 10:43:17 Reading Location: [facility] Radiology Reading Room POCT-GLUCOSE [id number] 08:09:00 Test Item Value Reference Range Interpretation Comments POC-GLUCOSE METER 145 mg/dL 70-110 H TESTED AT [place] [address] ([facility]) (test code = ALPHONSO Caicedo [facility] 1538) [id number] POCT-GLUCOSE [id number] 21:32:00 Test Item Value Reference Range Interpretation Comments POC-GLUCOSE METER 274 mg/dL 70-110 H TESTED AT [place] [address] ([facility]) (test code = ALPHONSO Caicedo [facility] 1538) [address] POCT-GLUCOSE [id number] 17:20:00 Test Item Value Reference Range Interpretation Comments POC-GLUCOSE METER 215 mg/dL 70-110 H TESTED AT [place] [address] ([facility]) (test code = ALPHONSO Caicedo [facility] 1538) [address] POCT-GLUCOSE [id number] 14:33:00 Test Item Value Reference Range Interpretation Comments POC-GLUCOSE METER 200 mg/dL 70-[address] [facility] 6720 (BEAKER) (test code = ALPHONSO Caicedo [place] 1538) [address] POCT-GLUCOSE [id number] 11:13:00 Test Item Value Reference Range Interpretation Comments POC-GLUCOSE METER 289 mg/dL 70-[address] [facility] 6720 (BEAKER) (test code = ALPHONSO Caicedo [facility] 1538) [address] POCT-GLUCOSE [id number] 08:08:00 Test Item Value Reference Range Interpretation Comments POC-GLUCOSE METER 180 mg/dL 70-[address] [facility] 6720 (BEAKER) (test code = ALPHONSO Caicedo [facility] 1538) [address] RAD, CHEST, 1 VIEW, NON [id number] 07:40:00Reason for exam:->respiratory insufficiencyShould this be performed at the bedside?->YesFINAL REPORT Chest dated 01/06/2019 COMPARISON: 01/05/2019 Clinical Information: respiratory insufficiency Comment: Heart is enlarged. Pulmonary vasculature is indistinct. Interstitialdisease is seen bilaterally suggestive of vascular congestion unchanged from prior study. There is small left pleural effusion. Signed: Yuridia Wallace MDReport Verified Date/Time: 01/06/2019 07:40:30 Reading Location: [facility] C013W Consult Reading Room BASIC METABOLIC [id number] 07:18:00 Test Item Value Reference Range Interpretation [...] mg/dL 8.4-10.2 (test code = 697) EGFR ([facility]) (test 6 mL/min/1.73 ESTIMAT ED GFR IS code = 1092) sq m NOT ACCURATE CREATININE CLEARANCE IN PREDICTING GLOMERULAR FILTRATION RATE . ESTIMATED GFR I S NOT APPLICABLE FOR DIALYSIS PATIEN TS. VANCOMYCIN LEVEL, [id number] 07:13:00 Test Item Value Reference Range Interpretation Comments VANCOMYCIN RANDOM ([facility]) (test 17.4 ug/mL code = 523) Reference Range: No [id number] 07:09:00 Test Item Value Reference Range Interpretation Comments MAGNESIUM ([facility]) (test code = 2.1 mg/dL 1.6-2.6 627) POCT-GLUCOSE [id number] 21:46:00 Test Item Value Reference Range Interpretation Comments POC-GLUCOSE METER 173 mg/dL 70-[address] [facility] 6720 ([facility]) (test code = [employer] [facility] 1538) [address] POCT-GLUCOSE [id number] 16:20:00 Test Item Value Reference Range Interpretation Comments POC-GLUCOSE METER 172 mg/dL 70-[address] [facility] 67 ([facility]) (test code = [facility] [employer] [facility] 1538) [address] POCT-GLUCOSE [id number] 12:21:00 Test Item Value Reference Range Interpretation Comments POC-GLUCOSE METER 260 mg/dL 70-110 H TESTED AT [place] [address] ([facility]) (test code = [employer] [facility] 1538) [address] POCT-GLUCOSE [id number] 08:37:00 Test Item Value Reference Range Interpretation Comments POC-GLUCOSE METER 153 mg/dL 70-110 H TESTED AT [place] [address] ([facility]) (test code = [employer] [facility] 1538) [address] RAD, CHEST, 1 VIEW, NON [id number] 07:04:00Reason for exam:->respiratory insufficiencyShould this be performed at the bedside?->YesFINAL REPORT RAD, CHEST, 1 VIEW, NON DEPT INDICATION: respiratory insufficiencyCOMPARISON: Prior day's exam FINDINGS: Portable frontal view of the chest. IMPRESSION: Support Lines: External leads Lungs and pleura: Bibasilar subsegmental atelectasis No pneumothorax.Heart and mediastinum: Stable contours. Additional findings: None. Signed: Dasia Britteport Verified Date/Time: 01/05/2019 07:04:08 Reading Location: [facility] C013V Neuro Reading Room C METABOLIC [id number] 05:47:00 Test Item Value Reference Range Interpretation [...] S NOT APPLICABLE FOR DIALYSIS PATIEN TS. [id number] 05:36:00 Test Item Value Reference Range Interpretation Comments MAGNESIUM (BEAKER) (test code = 1.9 mg/dL 1.6-2.6 627) CBC W/PLT COUNT & AUTO [id number] 05:18:00 Test Item Value Reference Range Interpretation [...] (BEAKER) (test code = 2801) BLOOD GAS, [id number] 05:12:00 Test Item Value Reference Range Interpretation [...] code = 1819) 21.0 % LACTIC ACID, [id number] 05:00:00 Test Item Value Reference Range Interpretation Comments LACTATE BLOOD ARTERIAL (2) 1.0 mmol/L 0.5-2.2 (BEAKER) (test code = 2874) BASIC METABOLIC [id number] 23:29:00 Test Item Value Reference Range Interpretation [...] S NOT APPLICABLE FOR DIALYSIS PATIEN TS. [id number] 23:17:00 Test Item Value Reference Range Interpretation Comments MAGNESIUM (BEAKER) (test code = 1.9 mg/dL 1.6-2.6 627) CBC W/PLT COUNT & AUTO [id number] 22:52:00 Test Item Value Reference Range Interpretation [...] PERCENT (BEAKER) (test code = 2801) POCT-GLUCOSE [id number] 22:52:00 Test Item Value Reference Range Interpretation Comments POC-GLUCOSE METER 221 mg/dL 70-[address] [facility] 6720 [facility] (test code = ALPHONSO Caicedo [facility] 1538) [address] POCT-GLUCOSE [id number] 19:02:00 Test Item Value Reference Range Interpretation Comments POC-GLUCOSE METER 182 mg/dL 70-110 H TESTED AT [place] [address] ([facility]) (test code = ALPHONSO Caicedo [facility] 1538) [address] POCT-GLUCOSE [id number] 15:31:00 Test Item Value Reference Range Interpretation Comments POC-GLUCOSE METER 150 mg/dL 70-110 H TESTED AT [place] [address] ([facility]) (test code = ALPHONSO Caicedo [facility] 1538) [address] POCT-GLUCOSE [id number] 12:07:00 Test Item Value Reference Range Interpretation Comments POC-GLUCOSE METER 284 mg/dL 70-110 H TESTED AT [place] [address] ([facility]) (test code = ALPHONSO Caicedo [facility] 1538) [address] RAD, CHEST, 1 VIEW, NON [id number] 08:49:00Reason for exam:->respiratory insufficiencyShould this be performed at the bedside?->YesFINAL REPORT Clinical History: Respiratory insufficiency Comparison Study: January 03, 2019 Findings: The cardiac silhouette is enlarged. Mild interstitial markings are seen. The lungs are otherwise within normal limits. The pleural spaces are clear. No significant bony or soft tissue abnormalities are seen. Impression: Cardiomegaly. Signed: Acosta Becker [facility] Verified Date/Time: 01/04/2019 08:49:14 Reading Location: [facility] Radiology Reading Room BASIC METABOLIC [id number] 06:21:00 Test Item Value Reference Range Interpretation [...] S NOT APPLICABLE FOR DIALYSIS PATIEN TS. [id number] 06:09:00 Test Item Value Reference Range Interpretation Comments POTASSIUM (BEAKER) (test code = 5.5 meq/L 3.5-5.1 H 379) [id number] 06:09:00 Test Item Value Reference Range Interpretation Comments MAGNESIUM (BEAKER) (test code = 2.2 mg/dL 1.6-2.6 627) [id number] 06:09:00 Test Item Value Reference Range Interpretation Comments PHOSPHORUS (BEAKER) (test code = 5.8 mg/dL 2.3-4.7 H 604) CBC W/PLT COUNT & AUTO [id number] 05:54:00 Test Item Value Reference Range Interpretation [...] (BEAKER) (test code = 2801) BLOOD GAS, [id number] 05:34:00 Test Item Value Reference Range Interpretation [...] = 1819) 21.0 % HEPATITIS B SURFACE [id number] 03:29:00 Test Item Value Reference Range Interpretation Comments HEPATITIS B SURFACE ANTIGEN (2) Nonreactive Nonreactive (BEAKER) (test code = 2585) TROPONIN [id number] 03:04:00 Test Item Value Reference Range Interpretation [...] 340 U/L 29-200 H code = 380) [id number] 02:42:00 Test Item Value Reference Range Interpretation Comments PROTIME (BEAKER) (test code = 22.0 seconds 11.7-14.7 H 759) INR (BEAKER) (test code = 370) 2.0 <=5.9 PARTIAL THROMBOPLASTIN TIME 114.6 seconds 22.5-36.0 H (BEAKER) (test code = 760) RECOMMENDED COUMADIN/WARFARIN INR THERAPY RANGESSTANDARD DOSE: 2.0 - 3.0 Includes: PROPHYLAXIS for venous thrombosis, systemic embolization; TREATMENT for venous thrombosis and/or pulmonary embolus.HIGH RISK: Target INR is 2.5-3.5 for patients with mechanical heart valves.BLOOD GAS, [id number] 02:15:00 Test Item Value Reference Range Interpretation [...] (test code = 1819) 21.0 % POCT-GLUCOSE [id number] 00:41:00 Test Item Value Reference Range Interpretation Comments POC-GLUCOSE METER 237 mg/dL 70-[address] [facility] 6720 (BEAKER) (test code = ALPHONSO [place] 1538) [address] TROPONIN [id number] 00:28:00 Test Item Value Reference Range Interpretation [...] acute neurological disease, and persistent tachyarrhythmia.COMPREHENSIVE METABOLIC [id number] 00:24:00 Test Item Value Reference Range Interpretation [...] S NOT APPLICABLE FOR DIALYSIS PATIEN TS. [id number] 00:21:00 Test Item Value Reference Range Interpretation Comments MAGNESIUM (BEAKER) (test code = 2.0 mg/dL 1.6-2.6 627) LACTIC ACID, [id number] 00:16:00 Test Item Value Reference Range Interpretation Comments LACTATE BLOOD ARTERIAL (2) 1.3 mmol/L 0.5-2.2 (BEAKER) (test code = 2874) BLOOD GAS, [id number] 23:54:00 Test Item Value Reference Range Interpretation [...] 40.0 % RAD, CHEST, 1 VIEW, NON [id number] 22:24:00Reason for exam:- >hypotensionShould this be performed at the bedside?->YesFINAL REPORT Chest dated 01/03/2019 Clinical Information: hypotension Comment: Heart is enlarged. Pulmonary vasculature is indistinct. Interstitial disease is seen bilaterally suggestive of vascular congestion. Endotracheal tube is present. A curvilinear radiopaque density is seen in the mid upper chest. Please correlate clinically. Signed: Yuridia Wallace MDReport Verified Date/Time: 0 01/03/2019 22:24:07 Reading Location: [address] Consult Reading Room BASIC METABOLIC [id number] 22:08:00 Test Item Value Reference Range Interpretation [...] S NOT APPLICABLE FOR DIALYSIS PATIEN TS. [id number] 22:07:00 Test Item Value Reference Range Interpretation Comments MAGNESIUM (BEAKER) 2.0 mg/dL 1.6-2.6 Specimen slightly (test code = 627) hemolyzed [id number] 22:07:00 Test Item Value Reference Range Interpretation Comments PHOSPHORUS (BEAKER) 5.1 mg/dL 2.3-4.7 H Specimen slightly (test code = 604) hemolyzed POTASSIUM-STAT [id number] 21:42:00 Test Item Value Reference Range Interpretation Comments POTASSIUM (BEAKER) (test code = 4.7 meq/L 3.6-5.5 379) GLUCOSE-STAT [id number] 21:42:00 Test Item Value Reference Range Interpretation Comments GLUCOSE RANDOM (BEAKER) (test code 205 mg/dL 70-110 H = 652) SODIUM NA-STAT [id number] 21:42:00 Test Item Value Reference Range Interpretation Comments SODIUM (BEAKER) (test code = 381) 134 meq/L 135-148 L HGB/HCT (H&H) - STAT [id number] 21:42:00 Test Item Value Reference Range Interpretation Comments HEMOGLOBIN (BEAKER) (test code = 8.3 g/dL 13.0-16.8 L 410) HEMATOCRIT (BEAKER) (test code = 24.0 % 40.0-50.0 L 411) [id number] 21:34:00 Test Item Value Reference Range Interpretation Comments PROTIME (BEAKER) (test code = 54.5 seconds 11.7-14.7 H 759) INR (BEAKER) (test code = 370) 6.6 <=5.9 HH PARTIAL THROMBOPLASTIN TIME 116.0 seconds 22.5-36.0 H (BEAKER) (test code = 760) RECOMMENDED COUMADIN/WARFARIN INR THERAPY RANGESSTANDARD DOSE: 2.0 - 3.0 Includes: PROPHYLAXIS for venous thrombosis, systemic embolization; TREATMENT for venous thrombosis and/or pulmonary embolus.HIGH RISK: Target INR is 2.5-3.5 for patients with mechanical heart valves.LACTIC ACID, [id number] 21:27:00 Test Item Value Reference Range Interpretation Comments LACTATE BLOOD VENOUS 1.7 mmol/L 0.5-2.2 Specime n moderately (2) (BEAKER) (test hemolyzed code = 2872) CBC W/PLT COUNT & AUTO [id number] 21:16:00 Test Item Value Reference Range Interpretation [...] (BEAKER) (test code = 2801) BLOOD GAS, [id number] 21:03:00 Test Item Value Reference Range Interpretation [...] (BEAKER) (test code = 1819) 40.0 % [id number] 18:33:00 Test Item Value Reference Range Interpretation Comments ACTIVATED CLOTTING TIME 384 sec TEST ED AT [facility] 6720 (BEAKER) (test code = ALPHONSO Caicedo [place] 441) [address] PROTHROMBIN [id number] 14:04:00 Test Item Value Reference Range Interpretation Comments PROTIME (BEAKER) (test code = 14.3 seconds 11.7-14.7 759) INR (BEAKER) (test code = 370) 1.2 <=5.9 RECOMMENDED COUMADIN/WARFARIN INR THERAPY RANGESSTANDARD DOSE: 2.0 - 3.0 Includes: PROPHYLAXIS for venous thrombosis, systemic embolization; TREATMENT for venous thrombosis and/or pulmonary embolus.HIGH RISK: Target INR is 2.5-3.5 for patients with mechanical heart valves.CBC W/PLT COUNT & AUTO [id number] 14:00:00 Test Item Value Reference Range Interpretation [...] PERCENT (BEAKER) (test code = 2801) TROPONIN [id number] 12:20:00 Test Item Value Reference Range Interpretation [...] acute neurological disease, and persistent tachyarrhythmia.COMPREHENSIVE METABOLIC [id number] 12:15:00 Test Item Value Reference Range Interpretation [...] NOT APPLICABLE FOR DIALYSIS PATIEN TS. LIPID [id number] 12:13:00 Test Item Value Reference Range Interpretation Comments TRIGLYCERIDES (BEAKER) (test code = 158 mg/dL 540) CHOLESTEROL (BEAKER) (test code = 113 mg/dL 631) HDL CHOLESTEROL (BEAKER) (test code 34 mg/dL = 976) LDL CHOLESTEROL CALCULATED (BEAKER) 47 mg/dL (test code = 633) Triglyceride Reference Range: Low Risk <150 Borderline 150-199 High Risk 200- 499 Very High Risk >=500Cholesterol Reference Range: Low Risk <200 Borderline 200-239 High Risk >240HDL Cholesterol Reference Range: Low Risk >=60 High Risk <40LDL Cholesterol Reference Range: Optimal <100 Near Optimal 100-129 Borderline 130-159 High 160-189 Very High >=190POCT-GLUCOSE [id number] 11:26:00 Test Item Value Reference Range Interpretation Comments POC-GLUCOSE METER 291 mg/dL 70-110 H TESTED AT [place] [address] ([facility]) (test code = ALPHONSO KILPATRICK 6768) [address]
--- NOTE | 2022-10-18 01:15 | EDPHYS ---
Physician Documentation [facility] Name: Shelli Mireles Age: 72 yrs Sex: Male : 1950 Arrival Date: 10/18/2022 Time: 00:40 Bed IW2 Private MD: ED Physician Alf Munguia HPI: 10/18 01:10 This 72 yrs old Male presents to ER via Ambulatory with complaints of Abscess, Fever. cp 01:10 Patient presents to ED with c/o pain to right ear that started this past weekend. cp Patient reports fever using home ear thermometer. Historical: - Allergies: 00:59 Bactrim; kl 00:59 TETRACYCLINES; kl 00:59 Sulfa (Sulfonamide Antibiotics); kl - PMHx: 00:59 Cardiac Stents x3; Diabetes - IDDM; diabetic retinopathy; Dialysis (started 03/20/17); kl High Cholesterol; Hypertension; PE; RENAL FAILURE; - PSHx: 00:59 bypass x 3; Stented artery; pacemaker; kl - Immunization history:: Adult Immunizations up to date. - Social history:: Smoking status: Patient reports the use of cigarette tobacco products, Patient denies any tobacco usage or history of. ROS: 01:12 ENT: Positive for pain, swelling right ear. cp 01:12 Constitutional: Negative for fever. cp 01:12 All other systems are negative. Exam: 01:15 Constitutional: The patient appears in no acute distress, alert, awake, non-toxic, well cp developed, well nourished. 01:15 Head/Face: Normocephalic, atraumatic. cp 01:15 ENT: External ear(s): mild swelling, erythema and tenderness noted to external canal right ear, TM's: dullness, bilaterally, Nose: is normal, Mouth: Lips: moist. Vital Signs: 00:54 BP 146 / 54; Pulse 82; Resp 20; Temp 98.7(O); Pulse Ox 95% on R/A; Weight 123.5 kg (R); kl Height 5 ft. 10 in. (177.80 cm); Pain 5/10; 00:54 Body Mass Index 39.07 (123.50 kg, 177.80 cm) kl MDM: 01:07 Patient medically screened. cp 01:15 Data reviewed: vital signs, nurses notes, and as a result, I will discharge patient. cp 01:15 Differential diagnosis: abscess, cellulitis, insect bite. cp Administered Medications: No medications were administered Disposition Summary: 10/18/22 01:15 Discharge Ordered Location: Home cp Problem: new cp Symptoms: are unchanged cp Condition: Stable cp Diagnosis - Cellulitis of right external ear cp Followup: cp - With: Private Physician - When: 1 - 2 days - Reason: Worsening of condition Discharge Instructions: - Discharge Summary Sheet cp - Cellulitis, Adult cp Forms: - Medication Reconciliation Form cp - Thank You Letter cp - Antibiotic Education cp - Prescription Opioid Use cp Prescriptions: - Cephalexin 500 mg Oral Capsule - take 1 capsule by ORAL route every 6 hours for 7 days; 28 capsule; Refills: 0, cp Product Selection Permitted Signatures: Ritika Tucker RN RN Alf Malik PA PA cp
--- NOTE | 2022-10-18 01:15 | ER ---
Nurse's Notes [facility] Name: Shelli Mireles Age: 72 yrs Sex: Male : 1950 Arrival Date: 10/18/2022 Time: 00:40 Bed IW2 Private MD: Diagnosis: Cellulitis of right external ear Presentation: 10/18 00:54 Chief complaint: Patient states: felt pain in right ear thought it was a pimple reports kl felt he had a fever. Coronavirus screen: Vaccine status: Patient reports receiving the 2nd dose of the covid vaccine. Ebola Screen: Patient negative for fever greater than or equal to 101.5 degrees Fahrenheit, and additional compatible Ebola Virus Disease symptoms. Initial Sepsis Screen: Does the patient meet any 2 criteria? No. Patient's initial sepsis screen is negative. Does the patient have a suspected source of infection? No. Patient's initial sepsis screen is negative. Risk Assessment: Do you want to hurt yourself or someone else? Patient reports no desire to harm self or others. Onset of symptoms was October 18, 2022. 00:54 Method Of Arrival: Ambulatory 00:54 Acuity: MICHELLE 4 kl Triage Assessment: 01:01 General: Appears in no apparent distress. comfortable, Behavior is calm, cooperative. kl Pain: Complains of pain in right ear canal. Historical: - Allergies: 00:59 Bactrim; kl 00:59 TETRACYCLINES; kl 00:59 Sulfa (Sulfonamide Antibiotics); kl - PMHx: 00:59 Cardiac Stents x3; Diabetes - IDDM; diabetic retinopathy; Dialysis (started 03/20/17); kl High Cholesterol; Hypertension; PE; RENAL FAILURE; - PSHx: 00:59 bypass x 3; Stented artery; pacemaker; kl - Immunization history:: Adult Immunizations up to date. - Social history:: Smoking status: Patient reports the use of cigarette tobacco products, Patient denies any tobacco usage or history of. Screenin:19 [facility] ED Fall Risk Assessment (Adult) History of falling in the last 3 months, kl including since admission No falls in past 3 months (0 pts) Confusion or Disorientation No (0 pts) Intoxicated or Sedated No (0 pts) Impaired Gait No (0 pts) Mobility Assist Device Used No (0 pt) Altered Elimination No (0 pt) Score/Fall Risk Level 0 - 2 = Low Risk Oriented to surroundings, Maintained a safe environment. Abuse screen: Denies threats or abuse. 01:19 Nutritional screening: No deficits noted. Tuberculosis screening: No symptoms or risk kl factors identified. Assessment: 01:19 Reassessment: Patient appears in no apparent distress at this time. No changes from previously documented assessment. Vital Signs: 00:54 BP 146 / 54; Pulse 82; Resp 20; Temp 98.7(O); Pulse Ox 95% on R/A; Weight 123.5 kg (R); kl Height 5 ft. 10 in. (177.80 cm); Pain 5/10; 00:54 Body Mass Index 39.07 (123.50 kg, 177.80 cm) ED Course: 00:40 Patient arrived in ED. [id number] 00:59 Triage completed. kl 01:07 Alf Ghotra PA is PHCP. cp 01:07 Alf Munguia MD is Attending Physician. cp 01:20 Patient has correct armband on for positive identification. kl 01:20 No provider procedures requiring assistance completed. Patient did not have IV access kl during this emergency room visit. Administered Medications: No medications were administered Medication: 01:19 VIS not applicable for this client. Outcome: 01:15 Discharge ordered by . cp 01:20 Discharged to home ambulatory, with family. kl 01:20 Condition: stable 01:20 Discharge instructions given to patient, family, Instructed on discharge instructions, follow up and referral plans. medication usage, Demonstrated understanding of instructions, follow-up care, medications, Prescriptions given X 1. 01:20 Patient left the ED. Signatures: Ritika Tucker, RN RN Alf Malik PA PA cp Jeffries, Jennifer [email or web address]
[2022-10-18 01:35] VITALS: BP 146/54; TEMP 98.7; O2SAT 95
== END 2022-10-18 01:20 | disposition home or self-care (01) ==
LOC: ER 00:37
DX: H60.11 Cellulitis of right external ear (principal); E11.22 Type 2 diabetes mellitus with diabetic chronic kidney disease; N18.6 End stage renal disease; Z99.2 Dependence on renal dialysis; Z72.0 Tobacco use; Z95.0 Presence of cardiac pacemaker; Z95.1 Presence of aortocoronary bypass graft; Z95.818 Presence of other cardiac implants and grafts; Z88.1 Allergy status to other antibiotic agents; Z88.2 Allergy status to sulfonamides

== ENCOUNTER 2022-12-31 14:44 | Emergency (ER) | payer OTHER, MEDICARE ==
--- OUTSIDE RECORDS SUMMARY | 2022-12-31 15:00 | XMS REPORT | Continuity of Care Document ---
:1950 Author Organization [facility] t Address [address] [place] [address] [address] [place] [address] Care Team Providers Name Role Phone OSCAR MAURICE Primary Care Physician Unavailable AGUSTIN PATEL Attending Clinician Unavailable Coby Polanco MD Attending Clinician COBY POLANCO Attending Clinician Unavailable Tiara Cuellar MD Attending Clinician Jamel Peralta Attending Clinician [phone] COBY POLANCO Attending Clinician Unavailable ARRON MERCEDES Attending Clinician Unavailable Arron Mercedes MD Attending Clinician Arron Mercedes Attending Clinician ARRON MERCEDES Attending Clinician Unavailable Sahdy Tena MD Attending Clinician Jim Oscar Attending Clinician [phone] Alexandra Garcia MD Attending Clinician Pati Piña MD Attending Clinician Ellen FARR, Ludmila De Jesus Attending Clinician Shiv Multani MD Attending Clinician SHIV MULTANI Attending Clinician Unavailable Agustin Patel MD Attending [...] Clinician Unavailable FRENCH TRIPP Admitting Clinician Unavailable JEANETTE BANUELOS Admitting Clinician Unavail able Payers Payer Name Policy Type Policy Number Effective Date [facility] Date [facility] A \\T\\ [id number] 2016 B - MEDICARE 00:00:00 [facility] MEDICARE [id number] 2018 SUPPLEMENT PLAN - 00:00:00 [facility] Problems Condition Condition Condition Status Onset Resolution Last Treating Co mments Source Name Details Category Date Date Treatment Clinician Date Pacemaker Pacemaker Disease Active [facility] malfunctio malfunctio 5-25 Meri kes n n 00:00: Medical 00 Center HFrEF HFrEF Disease Recurre [facility] (heart (heart nce 5-24 [facility] failure failure 00:00: Medical with with 00 Center reduced reduced ejection ejection fraction) fraction) Atheroscle Atheroscle Disease Active 2020-[address] rosis of rosis of 0-14 [facility] viejas viejas 00:00: Medical coronary coronary 00 Center artery artery S/P CABG x S/P CABG x Disease Active [facility] 3 by 3 by 2-24 Kristy Scott on Scott on 00:00: Medical 10/28/2019 10/28/2019 00 Ce nter NSTEMI NSTEMI Disease Recurre [facility] (non-ST (non-ST nce 2-18 [facility] elevated elevated 00:00: Medica l myocardial myocardial 00 Ce nter infarction infarction ) ) Pericardia Pericardia Disease Active [facility] l l 5-17 [facility] tamponade tamponade 00:00: Medi lashaun 00 Center Chest pain Chest pain Disease Active [facility] 5[facility]02 [facility] 00:00: Medical 00 Center R31.2 - R31.2 - Diagnosis Active 2016-03-08 Memoria OTHER OTHER 02-24 08:54:00 l MICROSCOPI MICROSCOPI 00:01: He jennifer Wall 00 HEMATURIA HEMATURIA Active 02/25/2016 MH OPID [place] ESRD on ESRD on Disease Recurre [facility] dialysis dialysis [facility] Fever, Fever, Disease Active [facility] unspecifie unspecifie Meri kes d fever d fever Medical cause cause Center Morbid Morbid Problem Active 2016-03-11 Silas taylor obesity obesity 00:49:31 l (disorder) (disorder) He rmann Active Problem 03/11/2016 MH OPID [place] No known No known Disease Baylo r active active [place] problems problems of Medicin e Hyperkalem Hyperkalem Disease Resolve 2020-092022-01-20 2022-01-[address] [facility] [address] ia ia d 0-15 00:00:00 22:47:23 [facility] 00:00: Medical 00 [place] Syncope, Syncope, Disease Resolve 2022-01-20 2022-01-[address] unspecifie unspecifie d 8-11 00:00:00 22:47:44 [facility] d syncope d syncope 00:00: Medi lashaun type type 00 Center Pleural Pleural Disease Resolve 2022-01-20 2022-01-[address] [facility] [address] effusion effusion d 5-17 00:00:00 22:47:47 Meri kes on left on left 00:00: Medical 00 [place] Hypotensio Hypotensio Disease Resolve 2022-01-20 2022-01-[address] [facility] n due to n due to d 00:00:00 22:47:53 Meri kes hypovolemi hypovolemi Me dical a a Center Acute Acute Disease Resolve 2022-01-20 2022-01-[address] [facility] respirator respirator d 00:00:00 22:47:30 [facility] y y Medical insufficie insufficie Ce nter ncy ncy Acute Acute Disease Resolve 2022-01-20 2022-01-[address] [facility] [facility] blood loss blood loss d 00:00:00 22:47:26 [facility] anemia anemia [facility] Thrombocyt Thrombocyt Disease Resolve 2022-01-20 2022-01-[address] openia openia d 00:00:00 22:47:32 [facility] Hyperglyce Hyperglyce Disease Resolve 2022-01-20 2022-01-[address] anitha anitha d 00:00:00 22:47:33 [facility] Allergies, Adverse Reactions, Alerts Allergy Allergy Status Severity Reaction(s) Onset Inactive Treating Comm ents Source Name Type Date Date Clinician Bactrim Propensi Active Hives Michelet Ds ty to 3-16 College adverse 00:00: of reaction 00 Medicin s to e drug Sulfa DA Active U 2019- [facility] (Sulfona 0-27 Clear mide 00:00: [place] Antibiot 00 Regiona ics) [facility] Sulfa DA Active U HIVES 2019-09 [facility] (Sulfona 0-27 Clear mide 00:00: [place] Antibiot 00 Regiona ics) [facility] tetracyc DA Active U 2019-1 [facility] line 0-26 Clear 00:00: [place] 00 [facility] tetracyc DA Active U HIVES 2019- [facility] line 0-26 Clear 00:00: [place] 00 [facility] Sulfamet Propensi Active Dermatitis 2019-0 [facility] hoxazole ty to 5-28 College -[facility] adverse 00:00: of oprim reaction 00 Medicin s to e drug Tetracyc Propensi Active Dermatitis 2019-0 whelps on Michelet lines & ty to 5-28 his back College Related adverse 00:00: N/V, [...] 00 Center SEASONAL Allergy Active Low Other 2018-[address] [facility] ALLERGIE 5-02 [facility] S 00:00: [...] Date Stop Date Source Natural brother Cancer [facility] Natural father Cancer [facility] Natural mother Heart disease [facility] Social History Social Habit Start Date Stop Date Quantity Comments Source History SDOH [facility] Alcohol Comment Medical C enter History SDOH [facility] Alcohol Std Drinks Medica l Center History SDOH [facility] Alcohol Binge Medical [place] [facility] History [facility] Transport Non-Med [facility] Places Medical Ce nter Lived Exposure to Not sure [facility] e SARS-CoV-2 (event) of Med icine Alcohol intake 2022-07-20 2022-07-20 Current [facility] St Heidi es 00:00:00 00:00:00 non-drinker of Medical Ce nter alcohol (finding) History [facility] 2022-01-20 2022-01-[address] [facility] Transport Med 00:00:00 00:00:[address] History SDAL 2022-01-20 2022-01-[address] [facility] Housing Unable to 00:00:00 00:00:00 Medical Center Pay History [facility] 2022-01-20 2022-01-[address] [facility] Housing Homeless 00:00:00 00:00:00 Medical Center Last Year History SDAL 2022-01-17 2022-01-17 0 Michelet [employer] ge Physical Activity 00:00:00 00:00:00 of Medi cine DPW History [facility] 2022-01-17 2022-01-17 0 Michelet [employer] Physical Activity 00:00:00 00:00:00 of Medi cine MPS Tobacco use and 2019-01-03 2019-01-[address] Meri [place] exposure 00:00:00 00:00:00 Medical Center History SDOH 2019-01-03 2019-01-[address] [facility] Alcohol Frequency 00:00:00 00:00:00 Medical Center Sex [birth year] TYRON Morales 00:00:00 00:00:00 Medical Center Smoking Status Start Date Stop Date Source Social History [facility] Medications Ordered Filled Start Stop Current Ordering Indication Dosage Frequency Signature Comments Components Source Medication Medication Date Date Medication? Clinician (SIG) Name Name Missing or 2021-09 Yes 2.5mg Q.5D Use as [facility] Non-Formula 1-16 directed Luke s ry 15:54: 2.5 mg in Medical Medication 02 the mouth Cent er or throat 2 (two) times daily Eliquis 2.5mg . Missing or 2021-09 Yes 2.5mg Q.5D Use [...] mg Cap per capsule cholecalcif 2021-09 Yes [id number] QD Take [facility] karoline, 1-15 10,000 [facility] vitamin D3, 15:56: Units by Az dical 5,000 unit 32 mouth Center Tab [...] s MG tablet 15:56: daily. Medica l [address] [place] [address] insulin 2021-09 Yes 30U QD Inject 30 [facility] t glargine 1-15 Units [facility]ukes (LANTUS, 15:56: subcutaneo Med ical SEMGLEE) [address] [place] [address] Center 100 unit/mL nightly injection Use as directed . insulin 2021-[address] aspart 1-15 subcutaneo [facility]ukes U-100 15:56: usly 3 Medical (NovoLOG) (three) [place] 100 unit/mL times (3 mL) InPn daily before meals Per sliding scale. rosuvastati 2021-09 Yes 10mg QD Take [address] n (CRESTOR) 1-15 by mouth Luke s 10 MG 15:56: daily. Medical tablet [address] [place] [address] gabapentin 2021-09 Yes 300mg Take 300 CH [...] mouth , Med ical 7.5 MG ,, Center tablet . warfarin 2021-09 Yes 10mg Take [address] (COUMADIN, 1-15 by mouth [facility] JANTOVEN) 15:56: M, W, F, . Me dical [address] [place] [address] tablet midodrine 2021-09 Yes 5mg Take [address] (PROAMATINE 1-15 by mouth Luke s ) 5 MG 15:56: every Medical tablet 32 Monday, Center Monday, Monday. NIFEdipine 2021-09 Yes 30mg QD Take [address] (ADALAT CC) 1-15 by mouth Luke s 30 MG 24 hr 15:56: daily. Medi lashaun tablet Center pantoprazol 2021-09 Yes 40mg QD Take [address] e 1-15 by mouth [facility] (PROTONIX) 15:56: daily. Medic al 40 MG 32 Center tablet ranolazine 2021-09 Yes 500mg Q.5D Take [address] (RANEXA) 1-15 mg by [facility] 500 MG 12 15:56: mouth 2 Medic al hr tablet 32 (two) Center times daily. omega-3 2021-09 Yes 2g Q.5D Take [address] [facility] fatty 1-15 by mouth 2 [facility]ukes acids-fish 15:56: (two) Medica l oil 32 times Center 340-1,000 daily . mg Cap per capsule cholecalcif 2021-09 Yes [id number] QD Take [facility] karoline, 1-15 10,000 [facility] vitamin D3, 15:56: Units by Az dical 5,000 unit 32 mouth Center Tab [...] I St -acetaminop 1-15 tablet by Heidi es jasson (NORCO 15:56: mouth 2 Medi lashaun 7.5-325) [...] (LANTUS, 15:56: subcutaneo Med ical SEMGLEE) 32 usly Center 100 unit/mL nightly injection Use as directed . insulin 2021-[address] aspart 1-15 subcutaneo Lukes U-100 15:56: usly 3 Medical (NovoLOG) 32 (three) Center 100 unit/mL times (3 mL) InPn daily before meals Per sliding scale. rosuvastati 2021-09 Yes 10mg QD Take [address] n (CRESTOR) 1-15 by mouth Luke s 10 MG 15:56: daily. Medical tablet 32 Center gabapentin 2021-09 Yes 300mg Take [address] (NEURONTIN) 1-15 mg by [facility] 300 MG 15:56: mouth 3 Medical capsule 32 (three) Center times daily as needed . aspirin 81 2021-09 Yes 81mg QD Take [address] MG EC 1-15 by mouth [facility] tablet 15:56: daily. Medical 32 Center warfarin 2021-09 Yes 7.5mg Take 7.[address] (COUMADIN, 1-15 mg by [facility]ukes JANTOVEN) 15:56: mouth , Med ical 7.5 MG ,, Haji Center tablet . warfarin 2021-09 Yes 10mg Take [address] (COUMADIN, 1-15 by mouth [facility] JANTOVEN) 15:56: M, W, F, . Me dical 10 MG 32 Center tablet midodrine 2021-09 Yes 5mg Take [address] (PROAMATINE 1-15 by mouth Luke s ) 5 MG 15:56: every Medical tablet 32 Monday, Center Monday, Monday. NIFEdipine 2021-09 Yes 30mg QD Take [address] (ADALAT CC) 1-15 by mouth Luke s 30 MG 24 hr 15:56: daily. Medi lashaun tablet 32 Center pantoprazol 2021-09 Yes 40mg QD Take [address] [facility] e 1-15 by mouth [facility] (PROTONIX) 15:56: daily. Medic al 40 MG 32 Center tablet ranolazine 2021-09 Yes 500mg Q.5D Take [address] (RANEXA) 1-15 mg by [facility] 500 MG 12 15:56: mouth 2 Medic al hr tablet 32 (two) Center times daily. insulin Yes 40U Inject 40 [facility] glargine 9-14 Units into Colle ge (LANTUS) 15:44: the skin of 100 UNIT/ML 49 nightly. Medi darci injection e [place]-3 Yes 1mg Take 1 mg [facility] Fatty Acids 9-14 by mouth [place] ege (OMEGA-3 15:44: daily. of FISH OIL 49 Medicin OR) e gabapentin Yes 300mg Take 300 [facility] (NEURONTIN) 9-14 mg by [place] 300 MG 15:44: mouth 3 of capsule 49 times Medicin daily. e Cholecalcif Yes [id number] Take [place] radha karoline -14 50,000 mg [place] (VITAMIN 15:44: by mouth of D3) [id number] 49 daily. Medicin units CAPS e Sevelamer Yes 800mg Take 800 [place] radha Carbonate 9-14 mg by [place] 800 MG TABS 15:44: mouth of 49 daily. Medicin e Polyethylen Yes 17mg Take 17 mg Michelet e Glycol 9-14 by mouth [place] 3350 15:44: daily. of (MIRALAX 49 Medicin OR) e Aspirin 81 Yes 81mg Take 81 mg [facility] MG tablet -14 by mouth Colleg e 15:44: once. of 49 Medicin e Cyanocobala Yes Take by [place] radha min (B-12) -14 mouth [place] 1000 MCG 15:44: daily. of TABS 49 Medicin e promethazin Yes 25mg Take 25 mg [facility] e 9-14 by mouth [place] (PHENERGAN) 15:44: every 6 of 25 MG 49 hours as Medicin tablet needed. e Fluticasone Yes by Nasal [facility] Propionate -14 route. [place] (FLONASE 15:44: of ALLERGY 49 Medicin RELIEF NA) e pantoprazol Yes TAKE 1 [facility] or e 8-31 TABLET BY [place] (PROTONIX) 00:00: MOUTH 1 of 40 MG 00 TIME EACH Medicin tablet DAY BEFORE e BREAKFAST. ACCU-CHEK Yes USE TO [facility] LILLIE PLUS 8-11 CHECK [place] 00:00: BLOOD of 00 GLUCOSE IN Medicin THE e MORNING, AT NOON AND IN THE EVENING INSTRUCTED Ranolazine Yes 500mg Take 500 [facility] (RANEXA) 7-28 mg by [place] 500 MG TB12 00:00: mouth two o f 00 times Medicin daily. e NIFEdipine Yes [id number] 60mg Take 1 [facility] (ADALAT CC) 7-14 Tablet by Col lege 60 MG CR 00:00: mouth two of tablet 00 times Medicin daily. e insulin 0 Yes 40U Inject 40 [facility] glargine 6-29 Units into [facility] (LANTUS) 15:56: the skin of 100 UNIT/ML 01 nightly. Medi darci injection e [place]-3 0 Yes 1mg Take 1 mg [facility] Fatty Acids 6-29 by mouth [facility] ege (OMEGA-3 15:56: daily. of FISH OIL Medicin OR) e gabapentin 0 Yes 300mg Take 300 [facility] (NEURONTIN) 6-29 mg by [place] 300 MG 15:56: mouth 3 of capsule 01 times Medicin daily. e Cholecalcif 0 Yes [id number] Take [place] radha karoline 6-29 50,000 mg [place] (VITAMIN 15:56: by mouth of D3) [id number] 01 daily. Medicin units CAPS e Sevelamer 0 Yes 800mg Take 800 [place] radha Carbonate 6-29 mg by [place] 800 MG TABS 15:56: mouth of 01 daily. Medicin e Polyethylen 0 Yes 17mg Take 17 mg [facility] e Glycol 6-29 by mouth [place] 3350 15:56: daily. of (MIRALAX 01 Medicin OR) e Aspirin 81 0 Yes 81mg Take 81 mg [facility] MG tablet 6-29 by mouth [facility] 15:56: once. of 01 Medicin e Cyanocobala 0 Yes Take by [place] radha min (B-12) 6-29 mouth [place] 1000 MCG 15:56: daily. of TABS Medicin e promethazin Yes 25mg Take 25 mg [facility] e 6-29 by mouth [place] (PHENERGAN) 15:56: every 6 of 25 MG 01 hours as Medicin tablet needed. e Fluticasone 0 Yes by Nasal [facility] Propionate 6-29 route. [place] (FLONASE 15:56: of ALLERGY Medicin RELIEF NA) e NIFEdipine 2021-0 Yes [id number] 60mg Take 1 [facility] (ADALAT CC) 6-20 Tablet by Col lege 60 MG CR 00:00: mouth of tablet 00 daily. Medicin e famotidine 0 Yes 20mg QD Take 1 [facility] (PEPCID) 20 5-21 tablet (20 Meri kes MG tablet 00:00: mg total) Med ical 00 by mouth Center daily. famotidine Yes 20mg QD Take 1 [facility] (PEPCID) 20 5-21 tablet (20 Meri kes MG tablet 00:00: mg total) Med ical 00 by mouth Center daily. polyethylen 2021-0 2021- No 17g QD Take [address] [facility] e glycol 5-21 05-25 by mouth [facility] (GLYCOLAX) 00:00: 00:00 daily for M edical 17 gram 00 :00 3 days. Center packet polyethylen 2021-0 2021- No 17g QD Take [address] e glycol 5-21 05-25 by mouth [facility] (GLYCOLAX) 00:00: 00:00 daily for M edical 17 gram 00 :00 3 days. Center packet insulin Yes 40U Inject 40 [facility] glargine 5-16 Units into Colle (LANTUS) 16:17: the skin of 100 UNIT/ML 20 nightly. Medi darci injection e [place]-3 Yes 1mg Take 1 mg [facility] Fatty Acids 5-16 by mouth [facility] ege (OMEGA-3 16:17: daily. of FISH OIL 20 Medicin OR) e gabapentin Yes 300mg Take 300 [facility] (NEURONTIN) 5-16 mg by [place] 300 MG 16:17: mouth 3 of capsule 20 times Medicin daily. e Cholecalcif 0 Yes [id number] Take [place] radha karoline 5-16 50,000 mg [place] (VITAMIN 16:17: by mouth of D3) [id number] 20 daily. Medicin units CAPS e Sevelamer Yes 800mg Take 800 [place] radha Carbonate 5-16 mg by [place] 800 MG TABS 16:17: mouth of 20 daily. Medicin e Polyethylen Yes 17mg Take 17 mg Michelet e Glycol 5-16 by mouth [place] 3350 16:17: daily. of (MIRALAX 20 Medicin OR) e Aspirin 81 0 Yes 81mg Take 81 mg [facility] MG tablet 5-16 by mouth Colleg e 16:17: once. of 20 Medicin e Cyanocobala Yes Take by [place] radha min (B-12) 5-16 mouth [place] 1000 MCG 16:17: daily. of TABS 20 Medicin e promethazin Yes 25mg Take 25 mg [facility] e 5-16 by mouth [place] (PHENERGAN) 16:17: every 6 of 25 MG 20 hours as Medicin tablet needed. e Fluticasone Yes by Nasal [facility] Propionate 5-16 route. [place] (FLONASE 16:17: of ALLERGY 20 Medicin RELIEF NA) e docusate 2021- No 100mg Take 100 [place] radha sodium 5-16 05-16 mg by [place] (COLACE) 16:17: 00:00 mouth two of 100 MG 19 :00 times Medicin capsule daily. e docusate 2021- No 100mg Take 100 [place] radha sodium 5-16 05-16 mg by [place] (COLACE) 16:16: 00:00 mouth two of 100 MG 55 :00 times Medicin capsule daily. e sertraline 2021- No 25mg Take 25 mg [facility]let (ZOLOFT) 25 5-16 05-16 by mouth Col [facility]ge MG tablet 16:15: 00:00 daily. of 49 :00 Medicin e NIFEdipine 2021- No [id number] 30mg Take 1 [facility] (ADALAT CC) 5-05 05-16 Tablet by Co llege 30 MG CR 00:00: 00:00 mouth of tablet 00 :00 daily. Medicin e warfarin Yes [id number] Take one [facility] (COUMADIN) 3-17 tablet by [place] ege 7.5 MG 00:00: mouth of tablet 00 daily or Medicin as e directed by physician warfarin 2021- Yes [id number] Take one [facility] (COUMADIN) 3-17 tablet by [facility] ege 7.5 MG 00:00: mouth of tablet 00 daily or Medicin as e directed by physician warfarin 2021-0 Yes [id number] Take one [facility] (COUMADIN) 3-17 tablet by [place]ino ege 7.5 MG 00:00: mouth of tablet 00 daily or Medicin as e directed by physician sertraline Yes 25mg Take 25 mg [facility] (ZOLOFT) 25 2-15 by mouth [facility] ege MG tablet 09:52: daily. of 04 Medicin e insulin 2022-0 Yes 40U Inject 40 [facility] glargine 2-15 Units into [facility] ge (LANTUS) 09:46: the skin of 100 UNIT/ML 56 nightly. Medi darci injection e [place]-3 0 Yes 1mg Take 1 mg [facility] Fatty Acids 2-15 by mouth [facility] ege (OMEGA-3 09:46: daily. of FISH OIL 56 Medicin OR) e gabapentin 0 Yes 300mg Take 300 [facility] (NEURONTIN) 2-15 mg by [place] 300 MG 09:46: mouth 3 of capsule 56 times Medicin daily. e Cholecalcif 0 Yes [id number] Take [place] radha karoline 2-15 50,000 mg [place] (VITAMIN 09:46: by mouth of D3) [id number] 56 daily. Medicin units CAPS e Sevelamer 0 Yes 800mg Take 800 [place] radha Carbonate 2-15 mg by [place] 800 MG TABS 09:46: mouth of 56 daily. Medicin e Polyethylen Yes 17mg Take 17 mg [facility] e Glycol 2-15 by mouth [place] 3350 09:46: daily. of (MIRALAX 56 Medicin OR) e docusate Yes 100mg Take 100 [facility] or sodium 2-15 mg by [place] (COLACE) 09:46: mouth two of 100 MG 56 times Medicin capsule daily. e Aspirin 81 0 Yes 81mg Take 81 mg [facility] 2-[facility]: once. of 56 Medicin e Cyanocobala Yes Take by [place] radha min (B-12) 2-15 mouth [place] 1000 MCG 09:46: daily. of TABS 56 Medicin e promethazin Yes 25mg Take 25 mg Michelet e 2-15 by mouth [place] (PHENERGAN) 09:46: every 6 of 25 MG 56 hours as Medicin tablet needed. e Fluticasone 0 Yes by Nasal [facility] Propionate 2-15 route. [place] (FLONASE 09:46: of ALLERGY 56 Medicin RELIEF NA) e warfarin 0 Yes [id number] 5mg Take 1 [facility] (COUMADIN) 2-15 Tablet by [facility] 5 MG tablet 00:00: mouth of 00 daily. Medicin e Ranolazine 2021-0 Yes 500mg Take 500 [facility] (RANEXA) 2-15 mg by [place] 500 MG TB12 00:00: mouth two o f 00 times Medicin daily. e warfarin 2021-0 Yes [id number] 5mg Take 1 [facility] (COUMADIN) 2-15 Tablet by [place] ege 5 MG tablet 00:00: mouth of 00 daily. Medicin e Ranolazine 2021-0 Yes 500mg Take 500 [facility] (RANEXA) 2-15 mg by [place] 500 MG TB12 00:00: mouth two o f 00 times Medicin daily. e warfarin 2021-0 Yes [id number] 5mg Take 1 [facility] (COUMADIN) 2-15 Tablet by [place] ege 5 MG tablet 00:00: mouth of 00 daily. Medicin e Ranolazine 2021-0 Yes 500mg Take 500 [facility] (RANEXA) 2-15 mg by [place] 500 MG TB 00:00: mouth two o f 00 times Medicin daily. e warfarin 0 Yes [id number] 5mg Take 1 [facility] (COUMADIN) 2-15 Tablet by [place] ege 5 MG tablet 00:00: mouth of 00 daily. Medicin e Ranolazine 0 2021- No 500mg Take 500 [facility] (RANEXA) 2-15 02-15 mg by [place] 500 MG TB12 00:00: 00:00 mouth two of 00 :00 times Medicin daily. e rosuvastati 2020-09- No 10mg Take 10 mg [facility] n (CRESTOR) 10-06 by mouth Col lege 10 MG 12:36: 00:00 daily. of tablet 59 :00 Medicin e carvedilol 2020-09- No 25mg Take 25 mg [facility] (COREG) 25 10-06 by mouth 2 Co llege MG tablet 12:36: 00:00 times of 59 :00 daily Medicin (with e meals). isosorbide 2020-09- No 60mg Take 60 mg Michelet mononitrate 10-06 by mouth Col [facility]ge (IMDUR) 60 12:36: 00:00 every of MG CR 59 :00 morning. Medicin tablet e Fluticasone 2020-09 Yes by Nasal [facility] Propionate 2-02 route. [place] (FLONASE 12:05: of ALLERGY 57 Medicin RELIEF NA) e Polyethylen 2020-09 Yes 17mg Take 17 mg Michelet e Glycol 2-02 by mouth [place] 3350 12:05: daily. of (MIRALAX 07 Medicin OR) e Aspirin 81 2020-09 Yes 81mg Take 81 mg [facility] 2-02 [facility]: once. of 07 Medicin e Cyanocobala 2020-09 Yes Take by [place] radha min (B-12) 2- mouth [place] 1000 MCG 12:05: daily. of TABS 07 Medicin e promethazin 2020-09 Yes 25mg Take 25 mg [facility] e 2- by mouth [place] (PHENERGAN) 12:05: every 6 of 25 MG 07 hours as Medicin tablet needed. e fexofenadin 2020-09- No 180mg Take 180 [facility] e (JULISSA) 10-06 1202 mg by [facility] e 180 MG 12:04: 00:00 mouth. of tablet 47 :00 Medicin e montelukast 2020-09- No 10mg Take 10 mg [facility] (SINGULAIR) 2- 12-02 by mouth Col lege 10 MG 12:04: 00:00 daily. of tablet 41 :00 Medicin e insulin 2020-09 Yes 40U Inject 40 [facility] glargine 2-02 Units into [facility] (LANTUS) 12:01: the skin of 100 UNIT/ML 38 nightly. Medi darci injection e [place]-3 2020-09 Yes 1mg Take 1 mg [facility] Fatty Acids 2-02 by mouth [facility] ege (OMEGA-3 12:01: daily. of FISH OIL 38 Medicin OR) e gabapentin 2020-09 Yes 300mg Take 300 [facility] (NEURONTIN) 2-02 mg by [place] 300 MG 12:01: mouth 3 of capsule 38 times Medicin daily. e Cholecalcif 2020-09 Yes [id number] Take [place] radha karoline 2- 50,000 mg [place] (VITAMIN 12:01: by mouth of D3) [id number] 38 daily. Medicin units CAPS e Sevelamer 2020-09 Yes 800mg Take 800 [place] radha Carbonate 2-02 mg by [place] 800 MG TABS 12:01: mouth of 38 daily. Medicin e docusate 2020-09 Yes 100mg Take 100 [facility] or sodium 2-02 mg by [place] (COLACE) 12:01: mouth two of 100 MG 38 times Medicin capsule daily. e hydrocodone 2020-09- No 15mL Take 15 mL [facility] -acetaminop 2-02 1202 by mouth 4 C ollege hen (HYCET) 12:01: 00:00 times of 7.5-325 21 :00 daily as Medicin MG/15ML needed. e solution carvedilol 2020-09 Yes [id number] 25mg Take 1 [facility] (COREG) 25 2-02 Tablet by [facility] ege MG tablet 00:00: mouth 2 of 00 times Medicin daily e (with meals). isosorbide 2020-09 Yes [id number] 60mg Take 1 [facility] mononitrate 2-02 Tablet by Col [facility]ge (IMDUR) 60 00:00: mouth of MG CR 00 every Medicin tablet morning. e losartan 2020-09 Yes [id number] 50mg Take 1 [facility] (COZAAR) 50 2-02 Tablet by Col lege MG tablet 00:00: mouth of 00 daily. Medicin e rosuvastati 2020-09 Yes [id number] 10mg Take 1 Michelet n (CRESTOR) 2-02 Tablet by Col lege 10 MG 00:00: mouth of tablet 00 daily. Medicin e warfarin 2020-09 Yes [id number] 5mg Take 1 [facility] (COUMADIN) 2-02 Tablet by [facility] ege 5 MG tablet 00:00: mouth of 00 daily. Medicin e warfarin 2020-09 Yes [id number] Take one [facility] (COUMADIN) 2-02 tablet by [facility] ege 7.5 MG 00:00: mouth of tablet 00 daily or Medicin as e directed by physician carvedilol 2020-09 Yes [id number] 25mg Take 1 [facility] (COREG) 25 2-02 Tablet by [facility] ege MG tablet 00:00: mouth 2 of 00 times Medicin daily e (with meals). isosorbide 2020-09 Yes [id number] 60mg Take 1 [facility] mononitrate 2-02 Tablet by Col [facility]ge (IMDUR) 60 00:00: mouth of MG CR 00 every Medicin tablet morning. e losartan 2020-09 Yes [id number] 50mg Take 1 [facility] (COZAAR) 50 2-02 Tablet by [facility] MG tablet 00:00: mouth of 00 daily. Medicin e rosuvastati 2020-09 Yes [id number] 10mg Take 1 [facility] n (CRESTOR) 2-02 Tablet by [facility] 10 MG 00:00: mouth of tablet 00 daily. Medicin e warfarin 2020-09 Yes [id number] Take one [facility] (COUMADIN) 2-02 tablet by [facility] 7.5 MG 00:00: mouth of tablet 00 daily or Medicin as e directed by physician carvedilol 2020-09 Yes [id number] 25mg Take 1 [facility] (COREG) 25 2-02 Tablet by [facility] MG tablet 00:00: mouth 2 of 00 times Medicin daily e (with meals). isosorbide 2020-09 Yes [id number] 60mg Take 1 [facility] mononitrate 2-02 Tablet by [facility] (IMDUR) 60 00:00: mouth of MG CR 00 every Medicin tablet morning. e losartan 2020-09 Yes [id number] 50mg Take 1 [facility] (COZAAR) 50 2-02 Tablet by [facility] MG tablet 00:00: mouth of 00 daily. Medicin e rosuvastati 2020-09 Yes [id number] 10mg Take 1 [facility] (CRESTOR) 2-02 Tablet by [facility] 10 MG 00:00: mouth of tablet 00 daily. Medicin e carvedilol 2020-09 Yes [id number] 25mg Take 1 [facility] (COREG) 25 2-02 Tablet by [facility] MG tablet 00:00: mouth 2 of 00 times Medicin daily e (with meals). isosorbide 2020-09 Yes [id number] 60mg Take 1 [facility] mononitrate 2-02 Tablet by [facility] (IMDUR) 60 00:00: mouth of MG CR 00 every Medicin tablet morning. e losartan 2020-09 Yes [id number] 50mg Take 1 [facility] (COZAAR) 50 2-02 Tablet by [facility] MG tablet 00:00: mouth of 00 daily. Medicin e rosuvastati 2020-09 Yes [id number] 10mg Take 1 [facility] (CRESTOR) 2-02 Tablet by [facility] 10 MG 00:00: mouth of tablet 00 daily. Medicin e carvedilol 2020-09 Yes [id number] 25mg Take 1 [facility] (COREG) 25 2-02 Tablet by [facility] MG tablet 00:00: mouth 2 of 00 times Medicin daily e (with meals). isosorbide 2020-09 Yes [id number] 60mg Take 1 [facility] mononitrate 2-02 Tablet by [facility] (IMDUR) 60 00:00: mouth of MG CR 00 every Medicin tablet morning. e losartan 2020-09 Yes [id number] 50mg Take 1 [facility] (COZAAR) 50 2-02 Tablet by [facility] MG tablet 00:00: mouth of 00 daily. Medicin e rosuvastati 2020-09 Yes [id number] 10mg Take 1 [facility] (CRESTOR) 2-02 Tablet by [facility] 10 MG 00:00: mouth of tablet 00 daily. Medicin e warfarin 2020-09- No [id number] 5mg Take 1 [facility] (COUMADIN) 2-02 02-15 Tablet by [facility] 5 MG tablet 00:00: 00:00 mouth of 00 :00 daily. Medicin e hydrocodone 2020-09 Yes [facility] -acetaminop 1-09 [place] hen (Bright Pattern) 00:00: of 7.5-325 MG 00 Medicin per tablet e hydrocodone 2020-09 Yes [facility] -acetaminop 1-09 [place] hen (Bright Pattern) 00:00: of 7.5-325 MG 00 Medicin per tablet e hydrocodone 2020-09 Yes [facility] -acetaminop 1-09 [place] hen (Bright Pattern) 00:00: of 7.5-325 MG 00 Medicin per tablet e hydrocodone 2020-09 Yes [facility] -acetaminop 1-09 [place] hen (Bright Pattern) 00:00: of 7.5-325 MG 00 Medicin per tablet e hydrocodone 2020-09 Yes [facility] -acetaminop 1-09 [place] hen (Bright Pattern) 00:00: of 7.5-325 MG 00 Medicin per [...] hr 00 by mouth [facility] tablet daily. carvediloL 2020-09 Yes 25mg Take 1 [facility] [...] mouth [facility] tablet daily. losartan 2020- No [id number] 100mg Take 1 [facility] (COZAAR) 06-03 Tablet by [facility] 100 MG 00:00: 00:00 mouth of tablet 00 :00 daily. Medicin e warfarin 2020- No [id number] 5mg Take 1 [facility] (COUMADIN) 04-02 Tablet by [facility] 5 MG tablet 00:00: 00:00 mouth of 00 :00 daily. Medicin e Enoxaparin 2020- No [id number] Inject [facility] Sodium 03-03 once every [facility] (LOVENOX) 00:00: 00:00 12 hours of 120 00 :00 subcutaneo Medicin MG/0.8ML usly for 3 e SOLN days while off warfarin for planned procedure. metoprolol 2020- No 25mg Take 25 mg [facility] (TOPROL-XL) 4-15 04-15 by mouth [facility] 25 MG XL 18:10: 00:00 daily. of tablet 12 :00 Medicin e insulin Yes 40U Inject 40 [facility] glargine 4-15 Units into [facility] (LANTUS) 17:24: the skin of 100 UNIT/ML 39 nightly. Medi darci injection e [place]-3 Yes 1mg Take 1 mg [facility] Fatty Acids 4-15 by mouth [facility] (OMEGA-3 17:24: daily. of FISH OIL 39 Medicin OR) e montelukast Yes 10mg Take 10 mg [facility] (SINGULAIR) 4-15 by mouth [facility] 10 MG 17:24: daily. of tablet 39 Medicin e gabapentin Yes 300mg Take 300 [facility] (NEURONTIN) 4-15 mg by [place] 300 MG 17:24: mouth 3 of capsule 39 times Medicin daily. e Cholecalcif Yes [id number] Take [place] [facility] karoline 4-15 50,000 mg [place] (VITAMIN 17:24: by mouth of D3) [id number] 39 daily. Medicin units CAPS e Sevelamer Yes 800mg Take 800 [place] [facility] Carbonate 4-15 mg by [place] 800 MG TABS 17:24: mouth of 39 daily. Medicin e Polyethylen Yes 17mg Take 17 mg [facility] e Glycol 4-15 by mouth [place] 3350 17:24: daily. of (MIRALAX 39 Medicin OR) e hydrocodone Yes 15mL Take 15 mL [facility] -acetaminop 4-15 by mouth 4 [facility] (HYCET) 17:24: times of 7.5-325 39 daily as Medicin MG/15ML needed. e solution fexofenadin Yes 180mg Take 180 [facility] e (JULISSA) 4-15 mg by [place] 180 MG 17:24: mouth. of tablet 39 Medicin e rosuvastati Yes 10mg Take 10 mg [facility] n (CRESTOR) 4-15 by mouth [facility] 10 MG 17:24: daily. of tablet 39 Medicin e insulin Yes 40U Inject 40 [facility] glargine 4-15 Units into [facility] (LANTUS) 17:24: the skin of 100 UNIT/ML 39 nightly. Medi darci injection e [place]-3 Yes 1mg Take 1 mg [facility] Fatty Acids 4-15 by mouth [facility] (OMEGA-3 17:24: daily. of FISH OIL 39 Medicin OR) e montelukast Yes 10mg Take 10 mg [facility] (SINGULAIR) 4-15 by mouth [facility] 10 MG 17:24: daily. of tablet 39 Medicin e gabapentin Yes 300mg Take 300 [facility] (NEURONTIN) 4-15 mg by [place] 300 MG 17:24: mouth 3 of capsule 39 times Medicin daily. e Cholecalcif Yes [id number] Take [place] [facility] karoline 4-15 50,000 mg [place] (VITAMIN 17:24: by mouth of D3) [id number] 39 daily. Medicin units CAPS e Sevelamer Yes 800mg Take 800 [place] [facility] Carbonate 4-15 mg by [place] 800 MG TABS 17:24: mouth of 39 daily. Medicin e Polyethylen Yes 17mg Take 17 mg [facility] Glycol 4-15 by mouth [facility] 3350 17:24: daily. of (MIRALAX 39 Medicin OR) e hydrocodone Yes 15mL Take 15 mL [facility] -acetaminop 4-15 by mouth 4 [facility] (HYCET) 17:24: times of 7.5-325 39 daily as Medicin MG/15ML needed. e solution fexofenadin Yes 180mg Take 180 [facility] e (JULISSA) 4-15 mg by [place] 180 MG 17:24: mouth. of tablet 39 Medicin e rosuvastati Yes 10mg Take 10 mg [facility] (CRESTOR) 4-15 by mouth [facility] 10 MG 17:24: daily. of tablet 39 Medicin e docusate Yes 100mg Take 100 [facility] sodium 4-15 mg by [place] (COLACE) 17:24: mouth two of 100 MG 39 times Medicin capsule daily. e Aspirin 81 Yes 81mg Take 81 mg [facility] MG tablet 4-15 by mouth [facility] 17:24: once. of 39 Medicin e Cyanocobala Yes Take by [place] [facility] min (B-12) 4-15 mouth [facility] 1000 MCG 17:24: daily. of TABS 39 Medicin e promethazin Yes 25mg Take 25 mg [facility] e 4-15 by mouth [place] (PHENERGAN) 17:24: every 6 of 25 MG 39 hours as Medicin tablet needed. e metoprolol Yes [id number] 25mg Take 1 [facility] (TOPROL-XL) 4-15 Tablet by [facility] 25 MG XL 00:00: mouth of tablet 00 daily. Medicin e Ranolazine Yes [id number] 500mg Take 500 [facility] (RANEXA) 4-15 mg by [place] 500 MG TB12 00:00: mouth two o f 00 times Medicin daily. e insulin 2019-09 Yes 40U Inject 40 [facility] glargine 0-20 Units into [facility] (LANTUS) 18:55: the skin of 100 UNIT/ML 09 nightly. Medi darci injection e [place]-3 2019-09 Yes 1mg Take 1 mg [facility] Fatty Acids 0-20 by mouth [facility] (OMEGA-3 18:55: daily. of FISH OIL 09 Medicin OR) e montelukast 2019-09 Yes 10mg Take 10 mg [facility] (SINGULAIR) 0-20 by mouth [facility] 10 MG 18:55: daily. of tablet 09 Medicin e gabapentin 2019-09 Yes 300mg Take 300 [facility] (NEURONTIN) 0-20 mg by [place] 300 MG 18:55: mouth 3 of capsule 09 times Medicin daily. e Cholecalcif 2019-09 Yes [id number] Take [place] [facility] karoline 0-20 50,000 mg [place] (VITAMIN 18:55: by mouth of D3) [id number] 09 daily. Medicin units CAPS e Sevelamer 2019-09 Yes 800mg Take 800 [place] [facility] Carbonate 0-20 mg by [place] 800 MG TABS 18:55: mouth of 09 daily. Medicin e Polyethylen 2019-09 Yes 17mg Take 17 mg [facility] Glycol 0-20 by mouth [place] 3350 18:55: daily. of (MIRALAX 09 Medicin OR) e hydrocodone 2019-09 Yes 15mL Take 15 mL [facility] -acetaminop 0-20 by mouth 4 [facility] (HYCET) 18:55: times of 7.5-325 09 daily as Medicin MG/15ML needed. e solution fexofenadin 2019-09 Yes 180mg Take 180 [facility] e (JULISSA) 0-20 mg by [place] 180 MG 18:55: mouth. of tablet 09 Medicin e rosuvastati 2019-09 Yes 10mg Take 10 mg [facility] n (CRESTOR) 0-20 by mouth [facility] 10 MG 18:55: daily. of tablet 09 Medicin e midodrine 2019-09 Yes [id number] Take 1 [facility] (PROAMATINE 0-20 tablet by [facility] ) 5 MG 00:00: mouth of tablet 00 before Medicin dialysis. e You may take an additional dose in the evenings (total twice a day) also. midodrine 2019-09 Yes [id number] Take 1 [facility] (PROAMATINE 0-20 tablet by [facility] ) 5 MG 00:00: mouth of tablet 00 before Medicin dialysis. e You may take an additional dose in the evenings (total twice a day) also. midodrine 2019-09 Yes [id number] Take 1 [facility] (PROAMATINE 0-20 tablet by [facility] ) 5 MG 00:00: mouth of tablet 00 before Medicin dialysis. e You may take an additional dose in the evenings (total twice a day) also. midodrine 2019-09 Yes [id number] Take 1 [facility] (PROAMATINE 0-20 tablet by [facility] ) 5 MG 00:00: mouth of tablet 00 before Medicin dialysis. e You may take an additional dose in the evenings (total twice a day) also. midodrine 2019-09 Yes [id number] Take 1 [facility] (PROAMATINE 0-20 tablet by [facility] ) 5 MG 00:00: mouth of tablet 00 before Medicin dialysis. e You may take an additional dose in the evenings (total twice a day) also. warfarin 2020-0 Yes [id number] Take one [facility] (COUMADIN) 6-12 tablet by [facility] 7.5 MG 00:00: mouth of tablet 00 daily or Medicin as e directed by physician warfarin 2020-0 Yes [id number] Take one [facility] (COUMADIN) 6-12 tablet by [facility] 7.5 MG 00:00: mouth of tablet 00 daily or Medicin as e directed by physician warfarin 2020-0 Yes [id number] Take one [facility] (COUMADIN) 6-12 tablet by [facility] 7.5 MG 00:00: mouth of tablet 00 daily or Medicin as e directed by physician warfarin 2020-0 202- No [id number] Take one [facility] (COUMADIN) 6-12 12 tablet by [facility] 7.5 MG 00:00: 00:00 mouth of tablet 00 :00 daily or Medicin as e directed by physician rosuvastati 2020-0 Yes 10mg Take 10 mg [facility] (CRESTOR) 5-28 by mouth [facility] 10 MG 19:20: daily. of tablet 22 Medicin e insulin 2020-0 Yes 40U Inject [...] pantoprazol 2020-0 Yes 40mg Take 40 mg [facility] e 5-28 by mouth [facility] (PROTONIX) 16:02: daily. of 40 MG 32 Medicin tablet e fexofenadin 2020-0 Yes 180mg Take 180 [facility] (JULISSA) 5-28 mg by [facility] 180 MG 16:02: mouth. of tablet 32 Medicin e pantoprazol 2020-0 Yes 40mg Take 40 mg [facility] e 5-28 by mouth [facility] (PROTONIX) 16:02: [...] 32 Medicin tablet e warfarin 2020-0 Yes [id number] 5mg Take 1 Tab [facility] (COUMADIN) 5-28 07 by mouth [facility] 5 MG tablet 00:00: daily. of 00 Medicin e warfarin 2020-0 Yes [id number] 5mg Take 1 Tab [facility] (COUMADIN) 5-28 by mouth [facility] 5 MG tablet 00:00: daily. of 00 Medicin e warfarin 2020-0 Yes [id number] 5mg Take 1 Tab [facility] (COUMADIN) 5-28 by mouth [facility] 5 MG tablet 00:00: daily. of 00 Medicin e warfarin 2020-0 Yes [id number] 5mg Take 1 Tab [facility] (COUMADIN) 5-28 by mouth [facility] 5 MG tablet 00:00: daily. of 00 Medicin e amoxicillin 2020-0 2020- No [id number] 1{tbl} Take 1 Tab [facility] -clavulanat 5-28 06-03 by mouth [facility] e 00:00: 04:59 every 8 of (AUGMENTIN) 00 :00 hours for Med icin 500-125 MG 5 days. e per tablet BD INSULIN 2020-0 Yes [facility] SYRINGE U/F 11-30 [place] 30G X 1/2" 00:00: of 0.5 ML MISC 00 Medicin e BD INSULIN 2020-0 Yes [facility] SYRINGE U/F 11-30 [place] 30G X 1/2" 00:00: of 0.5 ML MISC 00 Medicin e BD INSULIN 2020-0 Yes [facility] SYRINGE U/F 11-30 [place] 30G X 1/2" 00:00: of 0.5 ML MISC 00 Medicin e BD INSULIN 2020-0 Yes [facility] SYRINGE U/F 11-30 [place] 30G X 1/2" 00:00: of 0.5 ML MISC 00 Medicin e BD INSULIN 2020-0 Yes [facility] SYRINGE U/F 11-30 [place] 30G X 1/2" 00:00: of 0.5 ML MISC 00 Medicin e BD INSULIN 2020-0 Yes [facility] SYRINGE U/F 11-30 [place] 30G X 1/2" 00:00: of 0.5 ML MISC 00 Medicin e BD INSULIN 2020-0 Yes [facility] SYRINGE U/F 3-29 [place] 30G X 1/2" 00:00: of 0.5 ML MISC 00 Medicin e BD INSULIN 2020-0 Yes [facility] SYRINGE U/F 3-29 [place] 30G X 1/2" 00:00: of 0.5 ML MISC 00 Medicin e BD INSULIN 2020-0 Yes [facility] SYRINGE U/F 3-29 [place] 30G X 1/2" 00:00: of 0.5 ML MISC 00 Medicin e B 2019-0 Yes TAKE 1 [facility] Complex-C-F 3-26 TABLET BY [facility] olic Acid 00:00: MOUTH ONCE of (CARMEN-MARJORIE) 00 DAILY Medicin TABS e B 2019-0 Yes TAKE 1 [facility] Complex-C-F 3-26 TABLET BY [facility] olic Acid 00:00: MOUTH ONCE of (CARMEN-MARJORIE) 00 DAILY Medicin TABS e B 2019-0 Yes TAKE 1 [facility] Complex-C-F 3-26 TABLET BY [facility] olic Acid 00:00: MOUTH ONCE of (CARMEN-MARJORIE) 00 DAILY Medicin TABS e B 2019-0 Yes TAKE 1 [facility] Complex-C-F 3-26 TABLET BY [facility] olic Acid 00:00: MOUTH ONCE of (CARMEN-MARJORIE) 00 DAILY Medicin TABS e B 2019-0 Yes TAKE 1 [facility] Complex-C-F 3-26 TABLET BY [facility] olic Acid 00:00: MOUTH ONCE of (CARMEN-MARJORIE) 00 DAILY Medicin TABS e B 2020-0 Yes TAKE 1 [facility] Complex-C-F 3-26 TABLET BY [facility] olic [...] TABS e B 2020-0 Yes TAKE 1 [facility] Complex-C-F 3-26 TABLET BY [facility] olic Acid 00:00: MOUTH ONCE of (CARMEN-MARJORIE) 00 DAILY Medicin TABS e NOVOLOG 100 2020-0 Yes [facility] UNIT/ML 3-25 [facility] injection 00:00: of 00 Medicin e NOVOLOG 100 2020-0 Yes [facility] UNIT/ML 3-25 [facility] injection 00:00: of 00 Medicin e NOVOLOG 100 2020-0 Yes [facility] UNIT/ML 3-25 [facility] injection 00:00: of 00 Medicin e NOVOLOG 100 2020-0 Yes [facility] UNIT/ML 3-25 [facility] injection 00:00: of 00 Medicin e NOVOLOG 100 2020-0 Yes [facility] UNIT/ML 3-25 [facility] injection 00:00: of 00 [...] 2020- No TAKE 2 [facility] (PROAMATINE 11-18- TABLETS BY Mae flanagan ) 5 MG 00:00: 00:00 MOUTH 30 of tablet 00 :00 MINS PRIOR Medicin TO e HEMODIALYS IS aspirin EC 2020- No 81mg Take 81 mg [facility] 81 MG 11-06-06 by mouth. College tablet 00:00: 05:59 of 00 :00 Medicin e aspirin EC 2020- No 81mg Take 81 mg [facility] 81 MG 11-06-06 by mouth. College tablet 00:00: 05:59 of 00 :00 Medicin e atorvastati 2019-2019- No 40mg Take 40 mg [facility] n (LIPITOR) 11-05-28 by mouth. [facility] 40 MG 00:00: 00:00 of tablet 00 :00 Medicin e metoprolol 2019-0 2020- No 12.5mg Take 12.5 [facility] (LOPRESSOR) - 05-28 mg by [facility] 25 MG 00:00: 00:00 mouth two of tablet 00 :00 times Medicin daily. e lidocaine-p 2020-0 Yes APPLY A [place] [facility] rilocaine 3-02 [facility] ([facility]) 00:00: AMOUNT TO of 2.5-2.5 % 00 SKIN THREE Medi darci cream TIMES A e WEEK lidocaine-p 2020-0 Yes APPLY A [place] [facility] rilocaine 3-02 [facility] ([facility]) 00:00: AMOUNT TO of 2.5-2.5 % 00 SKIN THREE Medi darci cream TIMES A e WEEK lidocaine-p 2020-0 Yes APPLY A [place] [facility] rilocaine 3-02 [facility] ([facility]) 00:00: AMOUNT TO of 2.5-2.5 % 00 SKIN THREE Medi darci cream TIMES A e WEEK lidocaine-p 2020-0 Yes APPLY A [place] [facility] rilocaine 3-02 [facility] ([facility]) 00:00: AMOUNT TO of 2.5-2.5 % 00 SKIN THREE Medi darci cream TIMES A e WEEK lidocaine-p 2020-0 Yes APPLY A [place] [facility] rilocaine 3-02 [facility] ([facility]) 00:00: AMOUNT TO of 2.5-2.5 % 00 SKIN THREE Medi darci cream TIMES A e WEEK lidocaine-p 2020-0 Yes APPLY A [place] [facility] rilocaine 3-02 [facility] ([facility]) 00:00: AMOUNT TO of 2.5-2.5 % 00 SKIN THREE Medi darci cream TIMES A e WEEK lidocaine-p 2020-0 Yes APPLY A [place] [facility] rilocaine 3-02 [facility] ([facility]) 00:00: AMOUNT TO of 2.5-2.5 % 00 SKIN THREE Medi darci cream TIMES A e WEEK lidocaine-p 2020-0 Yes APPLY A [place] [facility] rilocaine 3-02 [facility] ([facility]) 00:00: AMOUNT TO of 2.5-2.5 % 00 SKIN THREE Medi darci cream TIMES A e WEEK lidocaine-p 2020-0 Yes APPLY A [place] [facility] rilocaine 3-02 [facility] ([facility]) 00:00: AMOUNT TO of 2.5-2.5 % 00 SKIN THREE Medi darci cream TIMES A e WEEK Cholecalcif 2019-0 2020- No Take by Ender ramey 09-17 mouth. [place] (VITAMIN 17:51: 00:00 of D3) 5000 10 :00 Medicin units TABS e clopidogrel 2019-0 2020- No 75mg Take 75 mg [facility] (PLAVIX) 75 1-14 01-14 by mouth [facility] MG tablet 17:50: 00:00 daily. of 00 :00 Medicin e Apixaban 2020-0 Yes 2.5mg Take 2.5 [facility] (ELIQUIS) 1-14 mg by [place] 2.5 MG TABS 17:04: mouth of 14 daily. Medicin e [place]-3 2020-0 Yes 1mg Take 1 mg [facility] Fatty Acids 1-14 by mouth [facility] (OMEGA-3 17:04: daily. of FISH OIL 14 Medicin OR) e Cholecalcif 2020-0 Yes [id number] Take [place] [facility] karoline 1-14 50,000 mg [place] (VITAMIN 17:04: by mouth of D3) [id number] 14 daily. Medicin units CAPS e Sevelamer 2020-0 Yes 800mg Take 800 [place] [facility] Carbonate 1-14 mg by [place] 800 MG TABS 17:04: mouth of 14 daily. Medicin e docusate 2020-0 Yes 100mg Take 100 [facility] sodium 1-14 mg by [place] (COLACE) 17:04: mouth two of 100 MG 14 times Medicin capsule daily. e linaCLOtide 2020-0 Yes 72mg Take 72 mg [facility] (LINZESS) 1-14 by mouth Colleg e 72 MCG CAPS 17:04: daily. of 14 Medicin e baclofen 2020-0 Yes 10mg Take 10 mg [place] [facility] (LIORESAL) 1-14 by mouth 3 [facility] 10 MG 17:04: times of tablet 14 daily. Medicin e hydrocodone 2020-0 Yes 15mL Take 15 mL [facility] -acetaminop 1-14 by mouth 4 [facility] hen (HYCET) 17:04: times of 7.5-325 14 daily as Medicin MG/15ML needed. e solution Melatonin 3 2020-0 Yes 3mg Take 3 mg [facility] MG TABS 1-14 by mouth [place] 17:04: nightly. of 14 Medicin e docusate 2020-0 Yes 100mg Take 100 [facility] sodium 1-14 mg by [place] (COLACE) 17:04: mouth two of 100 MG 14 times Medicin capsule daily. e linaCLOtide 2020-0 Yes 72mg Take 72 mg [facility] (LINZESS) 1-14 by mouth [facility] e 72 MCG CAPS 17:04: daily. of 14 Medicin e baclofen 2020-0 Yes 10mg Take 10 mg [place] [facility] (LIORESAL) 1-14 by mouth 3 [facility] 10 MG 17:04: times of tablet 14 daily. Medicin e Melatonin 3 2020-0 Yes 3mg Take 3 mg [facility] MG TABS 1-14 by mouth [place] 17:04: nightly. of 14 Medicin e docusate 2020-0 Yes 100mg Take 100 [facility] sodium 1-14 mg by [place] ([facility]) 17:04: mouth two of 100 MG 14 times Medicin capsule daily. e linaCLOtide 2020-0 Yes 72mg Take 72 mg [facility] (LINZESS) 1-14 by mouth Colleg e 72 MCG CAPS 17:04: daily. of 14 Medicin e baclofen 2020-0 Yes 10mg Take 10 mg [place] [facility] (LIORESAL) 1-14 by mouth 3 [facility] 10 MG 17:04: times of tablet 14 daily. Medicin e Melatonin 3 2020-0 Yes 3mg Take 3 mg [facility] MG TABS 1-14 by mouth [place] 17:04: nightly. of 14 Medicin e docusate 2020-0 Yes 100mg Take 100 [facility] sodium 1-14 mg by [place] ([facility]) 17:04: mouth two of 100 MG 14 times Medicin capsule daily. e linaCLOtide 2020-0 Yes 72mg Take 72 mg [facility] (LINZESS) 1-14 by mouth [facility] 72 MCG CAPS 17:04: daily. of 14 Medicin e baclofen 2020-0 Yes 10mg Take 10 mg [place] [facility] (LIORESAL) 1-14 by mouth 3 [facility] 10 MG 17:04: times of tablet 14 daily. Medicin e Melatonin 3 2020-0 Yes 3mg Take 3 mg [facility] MG TABS 1-14 by mouth [place] 17:04: nightly. of 14 Medicin e insulin [...] 2.5 [facility] (ELIQUIS) 1-14 mg by [place] 2.5 MG TABS 17:04: mouth of 14 daily. Medicin e [place]-3 2020-0 Yes 1mg Take 1 mg [facility] Fatty Acids 1-14 by mouth [facility] (OMEGA-3 17:04: daily. of FISH OIL 14 Medicin OR) e montelukast 2020-0 Yes 10mg Take 10 mg [facility] (SINGULAIR) 1-14 by mouth [facility] 10 MG 17:04: daily. of tablet 14 Medicin e fexofenadin 2020-0 Yes 1{tbl} Take 1 Tab [facility] e-pseudoeph 1-14 by mouth [facility] edrine 17:04: daily. of (JULISSA-D 14 Medicin ALLERGY & e CONGESTION) 180-240 MG per tablet gabapentin 2020-0 Yes 300mg Take 300 [facility] (NEURONTIN) 1-14 mg by [place] 300 MG 17:04: mouth 3 of capsule 14 times Medicin daily. e Cholecalcif 2020-0 Yes [id number] Take [place] [facility] karoline 1-14 50,000 mg [place] (VITAMIN 17:04: by mouth of D3) 46047 14 daily. Medicin units CAPS e Sevelamer 2020-0 Yes 800mg Take 800 [place] [facility] Carbonate 1-14 mg by [place] 800 MG TABS 17:04: mouth of 14 daily. Medicin e docusate 2020-0 Yes 100mg Take 100 [facility] sodium 1-14 mg by [place] (COLACE) 17:04: mouth two of 100 MG 14 times Medicin capsule daily. e linaCLOtide 2020-0 Yes 72mg Take 72 mg [facility] (LINZESS) 1-14 by mouth [facility] 72 MCG CAPS 17:04: daily. of 14 Medicin e Polyethylen 2020-0 Yes 17mg Take 17 mg [facility] e Glycol 1-14 by mouth [place] 3350 17:04: daily. of (MIRALAX 14 Medicin OR) e baclofen 2020-0 Yes 10mg Take 10 mg [place] [facility] (LIORESAL) 1-14 by mouth 3 [facility] 10 MG 17:04: times of tablet 14 daily. Medicin e hydrocodone 2020-0 Yes 15mL Take 15 mL [facility] -acetaminop 1-14 by mouth 4 [facility] hen (HYCET) 17:04: times of 7.5-325 14 daily as Medicin MG/15ML needed. e solution pantoprazol 2020-0 Yes 40mg Take 40 mg [facility] e 1-14 by mouth [place] (PROTONIX) 17:04: daily. of 40 MG 14 Medicin tablet e Melatonin 3 2020-0 Yes 3mg Take 3 mg [facility] MG TABS 1-14 by mouth [place] 17:04: nightly. of 14 Medicin e Insulin 2020-0 Yes 100ug Inject 100 [place] [facility] Aspart 1-14 mcg into [place] (NOVOLOG 17:04: the skin of PENFILL) 14 daily. Medicin 100 UNIT/ML e SOCT docusate 2020-0 Yes 100mg Take 100 [facility] sodium 1-14 mg by [place] (COLACE) 11:04: mouth two of 100 MG 14 times Medicin capsule daily. e linaCLOtide 2020-0 Yes 72mg Take 72 mg [facility] (LINZESS) 1-14 by mouth [facility] e 72 MCG CAPS 11:04: daily. of 14 Medicin e baclofen 2020-0 Yes 10mg Take 10 mg [place] [facility] (LIORESAL) 1-14 by mouth 3 [facility] 10 MG 11:04: times of tablet 14 daily. Medicin e Melatonin 3 2020-0 Yes 3mg Take 3 mg [facility] MG TABS 1-14 by mouth [place] 11:04: nightly. of 14 Medicin e docusate 2020-0 Yes 100mg Take 100 [facility] sodium 1-14 mg by [place] (COLACE) 11:04: mouth two of 100 MG 14 times Medicin capsule daily. e linaCLOtide 2020-0 Yes 72mg Take 72 mg [facility] (LINZESS) 1-14 by mouth [facility] e 72 MCG CAPS 11:04: daily. of 14 Medicin e baclofen 2020-0 Yes 10mg Take 10 mg [place] [facility] (LIORESAL) 1-14 by mouth 3 [facility] 10 MG 11:04: times of tablet 14 daily. Medicin e Melatonin 3 2020-0 Yes 3mg Take 3 mg [facility] MG TABS 1-14 by mouth [place] 11:04: nightly. of 14 Medicin e clopidogrel 2020-0 Yes 75mg Take 1 Tab [facility] (PLAVIX) 75 1-14 by mouth [facility] MG Tablet 00:00: daily. of 00 Medicin e metoprolol 2020-0 Yes 25mg Take 1 Tab [facility] (TOPROL XL) -14 by mouth [facility] 25 MG XL 00:00: daily. of tablet 00 Medicin e metoprolol 2020- No 25mg Take 25 mg [facility] (TOPROL-XL) -14 12-02 by mouth [facility] 25 MG XL 00:00: 00:00 two times of tablet 00 :00 daily. Medicin e metoprolol 2019- No 25mg Take 1 Tab [facility] (TOPROL XL) 09-17- by mouth [facility] 25 MG XL 00:00: 00:00 daily. of tablet 00 :00 Medicin e Colchicine 2019- No .6mg Take 0.6 [facility] 0.6 MG CAPS [facility] of 55 :00 daily. Medicin e amiodarone 2019- No 200mg Take 200 [facility] (PACERONE) 8-06 08-06 mg by [place] 200 MG 16:59: 00:00 mouth of tablet 49 :00 daily. Medicin e Insulin Yes 100ug Inject 100 [place] radha Aspart 8-06 mcg into [facility] (NOVOLOG 16:50: the skin of PENFILL) 46 daily. Medicin 100 UNIT/ML e SOCT Apixaban Yes 2.5mg Take 2.5 [place] (ELIQUIS) 8-06 mg by [place] 2.5 MG TABS 16:37: mouth of 05 daily. Medicin e [place]-3 Yes 1mg Take 1 mg Baylo r Fatty Acids 8-06 by mouth [place] e[facility] (OMEGA-3 16:37: daily. of FISH OIL 05 Medicin OR) e montelukast Yes 10mg Take 10 mg [facility] (SINGULAIR) 8-06 by mouth [place] e[facility] 10 MG 16:37: daily. of tablet 05 Medicin e fexofenadin Yes 1{tbl} Take 1 Tab [facility] e-pseudoeph 8-06 by mouth [place] e[facility] edrine 16:37: daily. of (JULISSA-D 05 Medicin ALLERGY & e CONGESTION) 180-240 MG per tablet gabapentin Yes 300mg Take 300 Ba [facility] (NEURONTIN) 8-06 mg by [place] 300 MG 16:37: mouth 3 of capsule 05 times Medicin daily. e Cholecalcif 2019- Yes Take by [place] rad[place] karoline 8-06 mouth. [place] (VITAMIN 16:37: of D3) 5000 05 Medicin units TABS e Cholecalcif 2019-0 Yes [id number] Take [place] [facility] karoline 8-06 50,000 mg [place] (VITAMIN 16:37: by mouth of D3) 17039 05 daily. Medicin units CAPS e Sevelamer Yes 800mg Take 800 [place] rad[facility] Carbonate 8-06 mg by [place] 800 MG TABS 16:37: mouth of 05 daily. Medicin e docusate Yes 100mg Take 100 Bayl or sodium 8-06 mg by [place] (COLACE) 16:37: mouth two of 100 MG 05 times Medicin capsule daily. e linaCLOtide 2018- Yes 72mg Take 72 mg [facility] (LINZESS) 8-06 by mouth Colle e 72 MCG CAPS 16:37: daily. of 05 Medicin e Polyethylen Yes 17mg Take 17 mg [facility] Glycol 8-06 by mouth [place] 3350 16:37: daily. of (MIRALAX 05 Medicin OR) e baclofen Yes 10mg Take 10 mg [place] [facility] (LIORESAL) 8-06 by mouth 3 [facility] lege 10 MG 16:37: times of tablet 05 daily. Medicin e hydrocodone 0 Yes 15mL Take 15 mL [facility] -acetaminop 06 by mouth 4 [facility] hen (HYCET) 16:37: times of 7.5-325 05 daily as Medicin MG/15ML needed. e solution pantoprazol Yes 40mg Take 40 mg [facility] e 8-06 by mouth [place] (PROTONIX) 16:37: daily. of 40 MG 05 Medicin tablet e clopidogrel 2018- Yes 75mg Take 75 mg [facility] (PLAVIX) 75 8-06 by mouth A[facility]ino ege MG tablet 16:37: daily. of 05 Medicin e Melatonin 3 2018-0 Yes 3mg Take 3 mg B aylor MG TABS 8-06 by mouth [place] 16:37: nightly. of 05 Medicin e insulin 2018- Yes 40U Inject 40 Baylo r glargine 8-06 Units into [facility] (LANTUS) 16:37: the skin of 100 UNIT/ML 05 nightly. Medi darci injection e rosuvastati Yes 10mg Take 10 mg [facility] (CRESTOR) 8-06 by mouth [place] ege 10 MG 16:37: daily. of tablet 05 Medicin e amitriptyli 2017-09 Yes 1{tbl} Take 1 Tab [facility] ne (ELAVIL) 0-02 by mouth [place] ege 25 MG 00:00: daily. of tablet 00 Medicin e amitriptyli 2017-09 Yes 1{tbl} Take 1 Tab [facility] (ELAVIL) 0-02 by mouth [facility] ege 25 MG 00:00: daily. of tablet 00 Medicin e amitriptyli 2017-09- No 1{tbl} Take 1 Tab [facility] (ELAVIL) 0-02 04-15 by mouth [facility] 25 MG 00:00: 00:00 daily. of tablet 00 :00 Medicin e Immunizations Ordered Immunization Filled Immunization Date Status Commen ts Source Name Name Pfizer SARS-CoV-2 2020-11-07 Completed [facility] [employer] [facility] 00:00:00 of Medicine Pfizer SARS-CoV-2 2020-11-07 Completed [employer] [facility]ination 00:00:00 of Medicine Pfizer SARS-CoV-2 2020-11-07 Completed [employer] [facility]ination 00:00:00 of Medicine Pfizer SARS-CoV-2 2020-11-07 Completed [employer] Vaccination 00:00:00 of Medicine Pfizer SARS-CoV-2 2020-11-07 Completed [employer] Vaccination 00:00:00 of Medicine Pfizer SARS-CoV-2 2020-11-07 Completed [facility] Vaccination 00:00:00 of Medicine Pfizer SARS-CoV-2 2020-11-07 Completed [employer] Vaccination 00:00:00 of Medicine Pfizer SARS-CoV-2 2020-10-17 Completed [employer] Vaccination 00:00:00 of Medicine Pfizer SARS-CoV-2 2020-10-17 Completed [employer] Vaccination 00:00:00 of Medicine Pfizer SARS-CoV-2 2020-10-17 Completed [employer] Vaccination 00:00:00 of Medicine Pfizer SARS-CoV-2 2020-10-17 Completed [employer] Vaccination 00:00:00 of Medicine Pfizer SARS-CoV-2 2020-10-17 Completed [facility] Vaccination 00:00:00 of Medicine Pfizer SARS-CoV-2 2020-10-17 Completed [facility] Vaccination 00:00:00 of Medicine Pfizer SARS-CoV-2 2020-10-17 Completed [facility] Vaccination 00:00:00 of Medicine Vital Signs [...] kg Systolic blood 2022-05-18 20:42:00 106 mm[Hg] [facility] pressure Medicine Diastolic blood 2022-05-18 20:42:00 54 mm[Hg] [facility] pressure Medicine Heart rate 2022-05-18 20:42:00 89 /min [facility] Body height 2022-05-18 20:42:00 185.4 cm [facility] Body weight 2022-05-18 20:42:00 129.275 kg [facility] BMI 2022-05-18 20:42:00 37.60 kg/m2 [facility] Systolic blood 2022-03-02 20:56:00 118 mm[Hg] [facility] Medicine Diastolic blood 2022-03-02 20:56:00 62 mm[Hg] [facility] Medicine Heart rate 2022-03-02 20:56:00 69 /min [facility] Respiratory rate 2022-03-02 20:56:00 16 /min [facility] Body height 2022-03-02 20:56:00 185.4 cm [facility] Body weight 2022-03-02 20:56:00 128.822 kg [facility] BMI 2022-03-02 20:56:00 37.47 kg/m2 [facility] Oxygen saturation in 2022-03-02 20:56:00 98 /min [facility] Arterial blood by Medicine Pulse [...] kg Systolic blood 2022-01-17 21:17:00 137 mm[Hg] [facility] pressure Medicine Diastolic blood 2022-01-17 21:17:00 54 mm[Hg] [facility] pressure Medicine Heart rate 2022-01-17 21:17:00 63 /min [facility] Body height 2022-01-17 21:17:00 182.9 cm [facility] Body weight 2022-01-17 21:17:00 129 kg [facility] BMI 2022-01-17 21:17:00 38.57 kg/m2 [facility] of Medicine Oxygen saturation in 2022-01-17 21:17:00 97 /min [employer] of Arterial blood by Medicine Pulse oximetry Systolic blood 2021-10-19 15:37:00 117 mm[Hg] [facility] of pressure Medicine Diastolic blood 2021-10-19 15:37:00 66 mm[Hg] [facility] Medicine Heart rate 2021-10-19 15:37:00 61 /min [facility] Respiratory rate 2021-10-19 15:37:00 16 /min [facility] Body height 2021-10-19 15:37:00 182.9 cm [facility] Body weight 2021-10-19 15:37:00 131.09 kg [facility] BMI 2021-10-19 15:37:00 39.20 kg/m2 [facility] Oxygen saturation in 2021-10-19 15:37:00 97 /min [facility] of Arterial blood by Medicine Pulse oximetry Systolic blood 2021-08-05 18:36:00 124 mm[Hg] [facility] of pressure Medicine Diastolic blood 2021-08-05 18:36:00 50 mm[Hg] [facility] pressure Medicine Heart rate 2021-08-05 17:58:00 62 /min [facility] Respiratory rate 2021-08-05 17:58:00 16 /min [facility] Body height 2021-08-05 17:58:00 182.9 cm [facility] Body weight 2021-08-05 17:58:00 131.543 kg [facility] BMI 2021-08-05 17:58:00 39.33 kg/m2 [facility] Oxygen saturation in 2021-08-05 17:58:00 97 /min [facility] of Arterial blood by Medicine Pulse [...] kg Systolic blood 2020-12-17 17:45:00 142 mm[Hg] [facility] pressure Medicine Diastolic blood 2020-12-17 17:45:00 71 mm[Hg] [facility] Medicine Heart rate 2020-12-17 17:45:00 60 /min [facility] Respiratory rate 2020-12-17 17:45:00 16 /min [facility] Body height 2020-12-17 17:45:00 182.9 cm [facility] Body weight 2020-12-17 17:45:00 131.09 kg [facility] BMI 2020-12-17 17:45:00 39.20 kg/m2 [facility] Oxygen saturation in 2020-12-17 17:45:00 99 /min [facility] Arterial blood by Medicine Pulse oximetry Systolic blood 2020-12-17 17:13:00 142 mm[Hg] [facility] pressure Medicine Diastolic blood 2020-12-17 17:13:00 71 mm[Hg] [facility] Medicine Heart rate 2020-12-17 17:13:00 60 /min [facility] Respiratory rate 2020-12-17 17:13:00 16 /min [facility] Body height 2020-12-17 17:13:00 182.9 cm [facility] Body weight 2020-12-17 17:13:00 131.09 kg [facility] BMI 2020-12-17 17:13:00 39.20 kg/m2 [facility] Oxygen saturation in 2020-12-17 17:13:00 99 /min [facility] of Arterial blood by Medicine Pulse oximetry Systolic blood 2020-06-23 18:50:00 110 mm[Hg] [facility] of pressure Medicine Diastolic blood 2020-06-23 18:50:00 66 mm[Hg] [facility] Medicine Heart rate 2020-06-23 18:50:00 94 /min [facility] Respiratory rate 2020-06-23 18:50:00 16 /min [facility] Body height 2020-06-23 18:50:00 182.9 cm [facility] Body weight 2020-06-23 18:50:00 132.45 kg [facility] BMI 2020-06-23 18:50:00 39.60 kg/m2 [facility] Oxygen saturation in 2020-06-23 18:50:00 97 /min [facility] of Arterial blood by Medicine Pulse oximetry Systolic blood 2020-06-23 18:50:00 110 mm[Hg] [facility] of pressure Medicine Diastolic blood 2020-06-23 18:50:00 66 mm[Hg] [facility] Medicine Heart rate 2020-06-23 18:50:00 94 /min [facility] Respiratory rate 2020-06-23 18:50:00 16 /min [facility] Body height 2020-06-23 18:50:00 182.9 cm [facility] Body weight 2020-06-23 18:50:00 132.45 kg [facility] BMI 2020-06-23 18:50:00 39.60 kg/m2 [facility] Oxygen saturation in 2020-06-23 18:50:00 97 /min [facility] of Arterial blood by Medicine Pulse oximetry Systolic blood 2020-01-30 16:00:00 149 mm[Hg] [facility] of pressure Medicine Diastolic blood 2020-01-30 16:00:00 79 mm[Hg] [facility] pressure Medicine Heart rate 2020-01-30 16:00:00 87 /min [facility] Respiratory rate 2020-01-30 16:00:00 16 /min [facility] Body height 2020-01-30 16:00:00 182.9 cm [facility] Body weight 2020-01-30 16:00:00 129.729 kg [facility] BMI 2020-01-30 16:00:00 38.79 kg/m2 [facility] Oxygen saturation in 2020-01-30 16:00:00 99 /min [facility] of Arterial blood by Medicine Pulse oximetry Systolic blood 2020-01-30 16:00:00 149 mm[Hg] [facility] pressure Medicine Diastolic blood 2020-01-30 16:00:00 79 mm[Hg] [facility] pressure Medicine Heart rate 2020-01-30 16:00:00 87 /min [facility] Respiratory rate 2020-01-30 16:00:00 16 /min [facility] Body height 2020-01-30 16:00:00 182.9 cm [facility] Body weight 2020-01-30 16:00:00 129.729 kg [facility] BMI 2020-01-30 16:00:00 38.79 kg/m2 [facility] Oxygen saturation in 2020-01-30 16:00:00 99 /min [facility] of Arterial blood by Medicine Pulse oximetry Systolic blood 2019-09-17 16:58:00 152 mm[Hg] [facility] pressure Medicine Diastolic blood 2019-09-17 16:58:00 65 mm[Hg] [facility] pressure Medicine Heart rate 2019-09-17 16:58:00 83 /min [facility] Respiratory rate 2019-09-17 16:58:00 16 /min [facility] Body height 2019-09-17 16:58:00 182.9 cm [facility] Body weight 2019-09-17 16:58:00 129.729 kg [facility] BMI 2019-09-17 16:58:00 38.79 kg/m2 [facility] Oxygen saturation in 2019-09-17 16:58:00 98 /min [facility] of Arterial blood by Medicine Pulse oximetry Systolic blood 2019-09-17 16:58:00 152 mm[Hg] [facility] pressure Medicine Diastolic blood 2019-09-17 16:58:00 65 mm[Hg] [facility] pressure Medicine Heart rate 2019-09-17 16:58:00 83 /min [facility] Respiratory rate 2019-09-17 16:58:00 16 /min [facility] Body height 2019-09-17 16:58:00 182.9 cm [facility] Body weight 2019-09-17 16:58:00 129.729 kg [facility] BMI 2019-09-17 16:58:00 38.79 [facility]/m2 [facility] Oxygen saturation in 2019-09-17 16:58:00 98 /min [facility] of Arterial blood by Medicine Pulse oximetry Systolic blood 2019-04-09 16:33:00 129 mm[Hg] [facility] Medicine Diastolic blood 2019-04-09 16:33:00 56 mm[Hg] [facility] Medicine Heart rate 2019-04-09 16:33:00 77 /min [facility] Respiratory rate 2019-04-09 16:33:00 16 /min [facility] Body height 2019-04-09 16:33:00 182.9 cm [facility] Body weight 2019-04-09 16:33:00 131.09 kg [facility] BMI 2019-04-09 16:33:00 39.20 kg/m2 [facility] Oxygen saturation in 2019-04-09 16:33:00 95 /min [facility] of Arterial blood by Medicine Pulse oximetry Systolic blood 2019-04-09 16:33:00 129 mm[Hg] [facility] of pressure Medicine Diastolic blood 2019-04-09 16:33:00 56 mm[Hg] [facility] Medicine Heart rate 2019-04-09 16:33:00 77 /min [facility] Respiratory rate 2019-04-09 16:33:00 16 /min [facility] Body height 2019-04-09 16:33:00 182.9 cm [facility] Body weight 2019-04-09 16:33:00 131.09 kg [facility] BMI 2019-04-09 16:33:00 39.20 kg/m2 [facility] Oxygen saturation in 2019-04-09 16:33:00 95 /min [facility] Arterial blood by Medicine Pulse oximetry Systolic blood 2022-07-19 15:10:00 146 mm[Hg] [facility] Diastolic blood 2022-07-19 15:10:00 67 mm[Hg] [facility] Heart rate 2022-07-19 15:10:00 76 /min [facility] Body temperature 2022-07-19 15:10:00 36.72 [facility] Respiratory rate 2022-07-19 15:10:00 16 /min [facility] Oxygen saturation in 2022-07-19 15:10:00 98 /min [facility] Arterial blood by Medical Ce nter Pulse oximetry Body height 2022-07-19 12:00:00 180.3 cm [facility] Body weight 2022-07-19 12:00:00 125.4 kg [facility] BMI 2022-07-19 12:00:00 38.56 kg/m2 [facility] Procedures Procedure Date / Time Performing Clinician Source Performed REPORT OF PROCEDURE - 2022-07-19 14:25:11 Coby Polanco [facility] REPORT OF PROCEDURE - 2022-07-19 14:22:12 Coby Polanco [facility] ENDOSCOPY [facility] TISSUE EXAM 2022-07-19 13:33:00 Coby Polanco [facility] COLONOSCOPY 2022-07-19 13:04:00 Coby Polanco [facility] ENDOSCOPY, UPPER GI TRACT, 2022-07-19 13:04:00 Coby Polanco i [facility] WITH BIOPSY [facility] EGD, WITH GASTRIC 2022-07-19 13:04:00 Coby Polanco [facility] POCT-GLUCOSE METER 2022-07-19 12:21:00 Coby Polanco [facility] BASIC METABOLIC PANEL 2022-07-19 12:19:00 Alex Wolff [facility] HEMOGLOBIN 2022-07-19 12:19:00 Alex Wolff [facility] POTASSIUM-STAT LAB 2022-07-19 12:19:00 Alex Wolff [facility] PROTHROMBIN TIME/INR 2022-07-19 12:19:00 Alex Wolff [facility] ELECTROCARDIOGRAM COMPLETE 2022-05-18 21:51:00 Arron Mercedes [facility] ELECTROCARDIOGRAM COMPLETE 2022-05-18 16:51:00 Asha [facility] HEMODIALYSIS INPATIENT 2022-01-26 16:00:10 Jenn Jonas [facility] POCT-GLUCOSE METER 2022-01-26 11:46:00 Chelsie [facility] CBC W/PLT+MANUAL DIFF 2022-01-26 08:07:[address] Keira [facility] HEMOGLOBIN AND HEMATOCRIT 2022-01-26 08:07:00 Chelsie [facility] CBC WITH PLATELET COUNT + 2022-01-26 08:07:00 Chelsie [facility] MANUAL DIFF [facility] (MANUAL DIFFERENTIAL) 2022-01-26 08:07:00 Jenn Jonas [facility] POCT-GLUCOSE METER 2022-01-26 07:23:00 Chelsie [facility] XR CHEST 1 VIEW PORTABLE / 2022-01-26 05:52:00 Praful Rodriguez [facility] ECG 12-LEAD 2022-01-26 04:49:24 Praful Rodriguez [facility] BASIC METABOLIC PANEL 2022-01-26 04:40:00 Chelsie [facility] XR CHEST 1 VIEW PORTABLE / 2022-01-26 00:05:00 Praful Rodriguez [facility] ECG 12-LEAD 2022-01-25 23:28:33 Praful Rodriguez [facility] POCT-GLUCOSE METER 2022-01-25 21:49:00 Chelsie [facility] AICD GENERATOR - REMOVE & 2022-01-25 16:46:00 Chelsie Gashlomo [facility] REPLACE W/ MAC ANESTHESIA [facility] (SING/DUAL/MULT) POCT-GLUCOSE METER 2022-01-25 16:07:00 Chelsie [facility] POCT-GLUCOSE METER 2022-01-25 14:11:00 Chelsie [facility] PROTHROMBIN TIME/INR 2022-01-25 11:29:00 [facility] 2022-01-25 11:29:00 [facility] 12-[facility]AD 2022-01-25 11:15:29 [facility] ARRYTHMIA IMPLANT REPORT - 2022-01-25 00:00:00 ProviderHuy [facility] CARDIAC CATH REPORT - SCAN 2022-01-25 00:00:00 ProviderHuy [facility] HEMODIALYSIS INPATIENT 2022-01-21 19:14:08 Jenn Jonas I [facility] POCT-GLUCOSE METER 2022-01-21 17:37:00 [facility] POCT-GLUCOSE METER 2022-01-21 11:55:00 [facility] POCT-GLUCOSE METER 2022-01-21 10:20:00 [facility] POCT-GLUCOSE METER 2022-01-21 07:26:00 [facility] CBC (HEMOGRAM ONLY) 2022-01-21 04:58[facility]00 [facility] 2022-01-21 04:58[facility]INR 2022-01-21 04:57:00 Bari Jacinto [facility] COMPREHENSIVE METABOLIC 2022-01-21 04:57[facility] T4 IF INDICATED 2022-01-21 04:57:00 [facility]SE [facility] 2022-01-20 21:12:00 [facility] POCT-GLUCOSE METER 2022-01-20 18:09:00 [facility] CBC W/PLT COUNT & AUTO 2022-01-20 14:05:00 Jenn Jonas CH I [facility] CBC W/PLT COUNT & AUTO 2022-01-20 14:05:00 Jenn Jonas CH I [facility] PACEMAKER CHECK 2022-01-20 12:17:58 [address] [facility] HIGH SENSITIVITY TROPONIN I 2022-01-20 12:14:00 Jose Mott [facility] HEMOGLOBIN A1C 2022-01-20 12:14:00 Pantera [facility] HEPATITIS B SURFACE ANTIGEN 2022-01-20 12:14:00 Elsa Jonas [facility] POCT-GLUCOSE METER 2022-01-20 10:23:00 [facility] BASIC METABOLIC PANEL 2022-01-20 04:15:00 [facility] PROTHROMBIN TIME/INR 2022-01-20 04:15:00 Bari Jacinto [facility] LIPID PANEL 2022-01-20 04:15:00 [facility]SE [facility] 2022-01-19 21:15:00 [facility] POT[facility]SIUM 2022-01-19 19:29:00 Pati Piña [facility] POCT-GLUCOSE METER 2022-01-19 18:39:00 Ludmila Hughes [facility] 2D ECHO W/ DOPPLER 2022-01-19 17:30:39 Alexandra Sylvester [facility] (CW[facility]PW/COLOR) [facility] BASIC METABOLIC PANEL 2022-01-19 15:18[facility]00 [facility] AUTO 2022-01-19 15:18:00 [facility] HIGH SENSITIVITY TROPONIN I 2022-01-19 15:18:00 [facility] PT/APTT 2022-01-19 15:18:00 [facility] CBC W/PLT COUNT & AUTO 2022-01-19 15:18:00 [facility] XR CHEST 1 VIEW PORTABLE / 2022-01-19 11:30:[address] [facility] BEDSIDE [facility] ECG 12-LEAD 2022-01-19 10:57:45 Michael [facility] ECG 12-LEAD 2022-01-19 10:57:45 Unknown, H[facility]7 [facility] ECG 12-LEAD 2022-01-19 10:57:45 Unknown, Hl7 [facility] ED ECG INTERPRETATION 2022-01-19 10:57:00 Alexandra Sylvester [facility] ARRYTHMIA IMPLANT REPORT - 2022-01-19 00:00:00 Provider, Default [facility] EKG-SCANNED 2022-01-19 00:00:00 Provider, Default [facility] ELECTROCARDIOGRAM COMPLETE 2021-10-19 15:50:00 Agustin Patel [facility] ELECTROCARDIOGRAM COMPLETE 2020-01-30 16:08:00 Agustin Patel [facility] ELECTROCARDIOGRAM COMPLETE 2019-09-17 17:06:00 Agustin Patel [facility] ELECTROCARDIOGRAM COMPLETE 2019-04-09 16:37:00 Alam, Mahboob B [facility] ([facility]) HEART CATH 2019-04-09 15:59:[address] [facility] Miscellaneous [facility] operations<sup>2</sup> Plan of Care Planned Activity Planned Date Details Comments Source Future Scheduled 2032-07-19 Screening for malignant [facility] Test 00:00:00 neoplasm of colon Medical Ce nter (procedure) [code = 108074239] Future Scheduled 2032-07-19 Screening for malignant [facility] Test 00:00:00 neoplasm of colon Medical Ce nter (procedure) [code = 982915557] Future Scheduled 2032-07-19 Screening for malignant [facility] Test 00:00:00 neoplasm of colon Medical Ce nter (procedure) [code = 724677800] Future Scheduled 2032-07-19 Screening for malignant [facility] Test 00:00:00 neoplasm of colon Medical Ce nter (procedure) [code = 326541879] Future Scheduled 2023-07-[address] [facility] Test 00:00:00 Counseling and Screening Med ical Center (12+) [code = Tobacco Cessation Counseling and Screening (12+)] Future Scheduled 2023-07-[address] [facility] Test 00:00:00 Counseling and Screening Med ical Center (12+) [code = Tobacco Cessation Counseling and Screening (12+)] Future Scheduled 2023-05-[address] [facility] Test 00:00:00 (Season Ended) [code = Medic al Center INFLUENZA VACCINE (Season Ended)] Future Scheduled 2022-09-[address] [facility] Test 00:00:00 (12+) [code = DEPRESSION Med ical Center SCREENING (12+)] Future Scheduled 2022-09-04 FALLS RISK SCREENING [facility] Test 00:00:00 [code = FALLS RISK Medical C enter SCREENING] Future Scheduled 2022-09-[address] [facility] Test 00:00:00 (12+) [code = DEPRESSION Med ical Center SCREENING (12+)] Future Scheduled 2022-09-04 FALLS RISK SCREENING [facility] Test 00:00:00 [code = FALLS RISK Medical C enter SCREENING] Future Scheduled 2022-05-22 Screening for malignant [employer] Test 11:34:30 neoplasm of colon of Medicin e (procedure) [code = 124359722] Future Scheduled 2022-05-22 Pneumococcal 65+ (1 - [facility] 11:[facility] PCV) [code = of Medicine Pneumococcal 65+ (1 - PCV)] Future Scheduled 2022-05-22 TETANUS SHOT (ADULT) [facility] Test 11:34:30 [code = TETANUS SHOT of Medi cine (ADULT)] Future Scheduled 2022-05-22 BMI FOLLOW UP PLAN [code [facility] Test 11:34:30 = BMI FOLLOW UP PLAN] of Med icine Future Scheduled 2022-05-22 Hepatitis C screening Ba [facility] Test 11:34:30 (procedure) [code = of Medic ine 618138706] Future Scheduled 2022-05-22 ZOSTER VACCINE (1 of 2) [facility] Test 11:34:30 [code = ZOSTER VACCINE of Me dicine (1 of 2)] Future Scheduled 2022-05-22 MEDICARE AWV (Initial) [facility] Test 11:34:30 [code = MEDICARE AWV of Medi cine (Initial)] Future Scheduled 2022-05-22 FALL SCREEN [code = FALL [facility] Test 11:34:30 SCREEN] of Medicine Future Scheduled 2022-05-22 COVID-19 Vaccine (3 - Ba [facility] Test 11:34:30 Booster for Pfizer of Medici ne series) [code = COVID-19 Vaccine (3 - Booster for Pfizer series)] Future Scheduled 2022-05-22 FLU VACCINE > 6 MONTHS B [facility] Test 11:34:30 [code = FLU VACCINE > 6 of M edicine MONTHS] Future Scheduled 2022-05-18 ELECTROCARDIOGRAM [facility] Test 16:49:35 COMPLETE [code = 27965] of M edicine Future Scheduled 2022-05-05 INFLUENZA VACCINE (#1) [facility]00 [code = INFLUENZA Medical Ce nter VACCINE (#1)] Future Scheduled 2022-04-18 US CAROTID [code = Expected: [employer] [facility] 00:00:00 17011] 04/18/2022, of Medicine Expires: 10/19/2022 Future Scheduled 2022-03-14 Screening for malignant [facility] Test 08:58:03 neoplasm of colon of Medicin e (procedure) [code = 711847413] Future Scheduled 2022-03-14 Pneumococcal 65+ (1 - [employer] [facility] 08:58:03 PCV) [code = of Medicine Pneumococcal 65+ (1 - PCV)] Future Scheduled 2022-03-14 TETANUS SHOT (ADULT) [employer] [facility] 08:58:03 [code = TETANUS SHOT of Medi cine (ADULT)] Future Scheduled 2022-03-14 BMI FOLLOW UP PLAN [code [employer] [facility] 08:58:03 = BMI FOLLOW UP PLAN] of Med icine Future Scheduled 2022-03-14 Hepatitis C screening [employer] [facility] 08:58:03 (procedure) [code = of Medic ine 539881625] Future Scheduled 2022-03-14 ZOSTER VACCINE (1 of 2) [employer] [facility] 08:58:03 [code = ZOSTER VACCINE of Me dicine (1 of 2)] Future Scheduled 2022-03-14 MEDICARE AWV (Initial) [employer] [facility] 08:58:03 [code = MEDICARE AWV of Medi cine (Initial)] Future Scheduled 2022-03-14 FALL SCREEN [code = FALL [employer] [facility] 08:58:03 SCREEN] of Medicine Future Scheduled 2022-03-14 COVID-19 Vaccine (3 - [employer] [facility] 08:58:03 Booster for Pfizer of Medici ne series) [code = COVID-19 Vaccine (3 - Booster for Pfizer series)] Future Scheduled 2022-03-14 FLU VACCINE > 6 MONTHS [employer] [facility] 08:58:03 [code = FLU VACCINE > 6 of M edicine MONTHS] Future Scheduled 2022-03-02 ELECTROCARDIOGRAM Ordered: [employer] [facility] 16:34:57 COMPLETE [code = 32243] 03/02/2022 of M edicine Future Scheduled 2022-01-19 Screening for malignant [employer] Test 08:45:09 neoplasm of colon of Medicin e (procedure) [code = 502444417] Future Scheduled 2022-01-19 TETANUS SHOT (ADULT) [employer] Test 08:45:09 [code = TETANUS SHOT of Medi cine (ADULT)] Future Scheduled 2022-01-19 BMI FOLLOW UP PLAN [code [employer] [facility] 08:45:09 = BMI FOLLOW UP PLAN] of Med icine Future Scheduled 2022-01-19 Hepatitis C screening [employer] [facility] 08:45:09 (procedure) [code = of Medic ine 582061711] Future Scheduled 2022-01-19 ZOSTER VACCINE (1 of 2) [employer] [facility] 08:45:09 [code = ZOSTER VACCINE of Me dicine (1 of 2)] Future Scheduled 2022-01-19 [facility] 08:45:09 [code = MEDICARE AWV of Medi cine (Initial)] Future Scheduled 2022-01-19 FALL SCREEN [code = FALL [employer] [facility] 08:45:09 SCREEN] of Medicine Future Scheduled 2022-01-19 Pneumococcal 65+ (1 of 1 [employer] Test 08:45:09 - PPSV23) [code = of Medicin e Pneumococcal 65+ (1 of 1 - PPSV23)] Future Scheduled 2022-01-19 COVID-19 Vaccine (3 - Ba [facility] Test 08:45:09 Booster for Pfizer of Medici ne series) [code = COVID-19 Vaccine (3 - Booster for Pfizer series)] Future Scheduled 2022-01-19 FLU VACCINE > 6 MONTHS [facility] 08:45:09 [code = FLU VACCINE > 6 of M edicine MONTHS] Diagnostic Test 2022-01-17 ECHO, COMPLETE [code = Expected: [facility] Pending 00:00:00 24534] 01/17/2022, of Medicine Expires: 07/20/2022 Future Scheduled 2021-10-26 Screening for malignant [facility] Test 01:06:11 neoplasm of colon of Medicin e (procedure) [code = 466218987] Future Scheduled 2021-10-26 TETANUS SHOT (ADULT) [facility] [employer] Test 01:06:11 [code = TETANUS SHOT of Medi cine (ADULT)] Future Scheduled 2021-10-26 BMI FOLLOW UP PLAN [code [employer] Test 01:06:11 = BMI FOLLOW UP PLAN] of Med icine Future Scheduled 2021-10-26 Hepatitis C screening Ba [facility] Test 01:06:11 (procedure) [code = of Medic ine 973867565] Future Scheduled 2021-10-26 ZOSTER VACCINE (1 of 2) [employer] [facility] 01:06:11 [code = ZOSTER VACCINE of Me dicine (1 of 2)] Future Scheduled 2021-10-26 [facility] 01:06:11 [code = MEDICARE AWV of Medi cine (Initial)] Future Scheduled 2021-10-26 FALL SCREEN [code = FALL [facility] Test 01:06:11 SCREEN] of Medicine Future Scheduled 2021-10-26 Pneumococcal 65+ (1 of 1 [employer] Test 01:06:11 - PPSV23) [code = of Medicin e Pneumococcal 65+ (1 of 1 - PPSV23)] Future Scheduled 2021-10-26 FLU VACCINE > 6 MONTHS B [facility] Test 01:06:11 [code = FLU VACCINE > 6 of M edicine MONTHS] Future Scheduled 2021-10-26 COVID-19 Vaccine (3 - Ba [facility] Test 01:06:11 Booster for Pfizer of Medici ne series) [code = COVID-19 Vaccine (3 - Booster for Pfizer series)] Future Scheduled 2021-10-19 ELECTROCARDIOGRAM [employer] Test 09:50:30 COMPLETE [code = 57433] of M edicine Diagnostic Test 2021-10-19 ECHO, COMPLETE [code = Expected: Ba [facility] Pending 00:00:00 08032] 10/19/2021, of Medicine Expires: 04/18/2022 Future Scheduled 2021-08-05 Screening for malignant [facility] Test 11:59:26 neoplasm of colon of Medicin e (procedure) [code = 358839345] Future Scheduled 2021-08-05 TETANUS SHOT (ADULT) [facility] Test 11:59:26 [code = TETANUS SHOT of Medi cine (ADULT)] Future Scheduled 2021-08-05 BMI FOLLOW UP PLAN [code [facility] Test 11:59:26 = BMI FOLLOW UP PLAN] of Med icine Future Scheduled 2021-08-05 Hepatitis C screening [facility] Test 11:59:26 (procedure) [code = of Medic ine 267379467] Future Scheduled 2021-08-05 ZOSTER VACCINE (1 of 2) [employer] [facility] 11:59:26 [code = ZOSTER VACCINE of Me dicine (1 of 2)] Future Scheduled 2021-08-05 [facility]IC[facility] 11:59:26 [code = MEDICARE AWV of Medi cine (Initial)] Future Scheduled 2021-08-05 FALL SCREEN [code = FALL [facility] Test 11:59:26 SCREEN] of Medicine Future Scheduled 2021-08-05 Pneumococcal 65+ (1 of 1 [facility] Test 11:59:26 - PPSV23) [code = of Medicin e Pneumococcal 65+ (1 of 1 - PPSV23)] Future Scheduled 2021-08-05 FLU VACCINE > 6 MONTHS B [facility] Test 11:59:26 [code = FLU VACCINE > [...] VACCINE (3 - Booster for Pfizer series)] Future Scheduled 2021-01-02 COVID-19 VACCINE (3 - [facility]00 Booster for Pfizer Medical C enter series) [code = COVID-19 VACCINE (3 - Booster for Pfizer series)] Diagnostic Test 2020-12-17 ECHO, COMPLETE [code = Expected: [employer] Pending 00:00:00 99539] 12/17/2020, of Medicine Expires: 06/18/2021 Diagnostic Test 2020-06-23 ECHO LIMITED [code = Expected: [employer] [place] Pending 00:00:00 16316-3] 06/23/2020, of Medicine Expires: 06/23/2021 Future Scheduled 2019-10-[address] [facility] 00[facility]00 measurement (procedure) [facility] [code = 84909928] Future Scheduled 2017-08-05 MEDICARE ANNUAL WELLNESS [facility] Test 00:00:00 (YEAR 2 or FIRST YEAR if [facility]) [code = MEDICARE ANNUAL WELLNESS (YEAR 2 or FIRST YEAR if no IPPE)] Future Scheduled 2017-08-05 MEDICARE ANNUAL WELLNESS [facility] Test 00:00:00 (YEAR 2 or FIRST YEAR if [facility] no IPPE) [code = MEDICARE ANNUAL WELLNESS (YEAR 2 or FIRST YEAR if no IPPE)] Future Scheduled 2001 SHINGLES VACCINES ([address] [facility] Test 00:00:00 2) [code = SHINGLES [facility] VACCINES (1 of 2)] Future Scheduled 2001 SHINGLES VACCINES ([address] [facility] Test 00:00:00 2) [code = SHINGLES [facility] VACCINES (1 of 2)] Future Scheduled 1970 DTAP/TDAP/TD VACCINES ([address] [facility] Test 00:00:00 - Tdap) [code = Medical Cent er DTAP/TDAP/TD VACCINES (1 - Tdap)] Future Scheduled 1970 DTAP/TDAP/TD VACCINES ([address] [facility] Test 00:00:00 - Tdap) [code = Medical Cent er DTAP/TDAP/TD VACCINES (1 - Tdap)] Future Scheduled 1969 HEPATITIS C [facility]CRE[facility]ING [facility]:00[facility] [code = HEPATITIS C Medical Center SCREENING] Future Scheduled 1969 HEPATITIS C [facility]CRE[facility]ING [facility] 00:00:00 [code = HEPATITIS C Medical Center SCREENING] Future Scheduled 1961 DIABETIC EYE EXAM [code [facility] 00:00:00 = DIABETIC EYE EXAM] Medical Center Future Scheduled 1961 Urine screening for [facility] Test 00:00:00 protein (procedure) [facility] [code = 151301357] Future Scheduled 1957 PNEUMOCOCCAL 65+ YRS ([address] [facility] Test 00:00:00 - PCV) [code = Medical Cente r PNEUMOCOCCAL 65+ YRS (1 - PCV)] Future Scheduled 1957 PNEUMOCOCCAL 65+ YRS ([address] [facility] Test 00:00:00 - PCV) [code = Medical Cente r PNEUMOCOCCAL 65+ YRS (1 - PCV)] Future Scheduled 1951 CT Colonography (combo) [facility] Test 00:00:00 [code = CT Colonography [facility] (combo)] Future Scheduled 1951 Screening for malignant [facility] Test 00:00:00 neoplasm of colon Medical Ce nter (procedure) [code = 292584602] Future Scheduled 1951 Screening for malignant [facility] Test 00:00:00 neoplasm of colon Medical Ce nter (procedure) [code = 886670375] Future Scheduled 1951 Sigmoidoscopy [code = [facility] 00:[facility] Sigmoidoscopy] Medical [place] r Future Scheduled 1951 CT Colonography (combo) [facility] Test 00:00:00 [code = CT Colonography [facility] (combo)] Future Scheduled 1951 Screening for malignant [facility] Test 00:00:00 neoplasm of colon Medical Ce nter (procedure) [code = 441322826] Future Scheduled 1951 Screening for malignant [facility] Test 00:00:00 neoplasm of colon Medical Ce nter (procedure) [code = 669461084] Future Scheduled 1951 Sigmoidoscopy [code [facility] Sigmoidoscopy] Medical Cente r Future Scheduled ELECTROCARDIOGRAM [employer] [facility] COMPLETE [code = 73769] of M edicine Future Scheduled COLON CANCER SCREENING: [facility] Test COLONOSCOPY [code = of Medic ine COLON CANCER SCREENING: COLONOSCOPY] Future Scheduled TETANUS SHOT (ADULT) [employer] [facility] [code = TETANUS SHOT of Medi cine (ADULT)] Future Scheduled Diabetic foot [employer] [facility] examination of Medicine (regime/therapy) [code = 771174181] Future Scheduled ANNUAL DIABETIC [employer] [facility] RETINOPATHY SCREENING of Med icine [code = ANNUAL DIABETIC RETINOPATHY SCREENING] Future Scheduled BMI FOLLOW UP PLAN [code [employer] [facility] = BMI FOLLOW UP PLAN] of Med icine Future Scheduled HEPATITIS C SCREENING [employer] [facility] [employer] [facility] [code = HEPATITIS C of Medic ine SCREENING] Future Scheduled MEDICARE AWV (Initial) [employer] [facility] [code = MEDICARE AWV of Medi cine (Initial)] Future Scheduled FALL SCREEN [code = FALL [employer] [facility] SCREEN] of Medicine Future Scheduled PNEUMOVAX >=65 (PPSV23) [employer] [facility] [code = PNEUMOVAX >=65 of Me dicine (PPSV23)] Future Scheduled PREVNAR >= 65 (PCV13) [employer] [facility] [code = PREVNAR >= 65 of Med icine (PCV13)] Future Scheduled FLU VACCINE > 6 MONTHS [employer] [facility] [code = FLU VACCINE > 6 of M edicine MONTHS] Future Scheduled COLON CANCER SCREENING: [facility] Test COLONOSCOPY [code = of Medic ine COLON CANCER SCREENING: COLONOSCOPY] Future Scheduled TETANUS SHOT (ADULT) [employer] [facility] [code = TETANUS SHOT [...] Future Scheduled FALL SCREEN [code = FALL [employer] [facility] SCREEN] of Medicine Future Scheduled PNEUMOVAX >=65 (PPSV23) [employer] [facility] [code = PNEUMOVAX >=65 of Me dicine (PPSV23)] Future Scheduled FLU VACCINE > 6 MONTHS [employer] [facility] [code = FLU VACCINE > 6 of M edicine MONTHS] Future Scheduled Screening for malignant [employer] [facility] neoplasm of colon of Medicin e (procedure) [code = 107642371] Future Scheduled TETANUS SHOT (ADULT) [employer] [facility] [code = TETANUS SHOT of Medi cine (ADULT)] Future Scheduled BMI FOLLOW UP PLAN [code [employer] [facility] = BMI FOLLOW UP PLAN] of Med icine Future Scheduled Hepatitis C screening [employer] [facility] (procedure) [code = of Medic ine 418711368] Future Scheduled ZOSTER VACCINE (1 of 2) [employer] [facility] [code = ZOSTER VACCINE of Me dicine (1 of 2)] Future Scheduled MEDICARE AWV (Initial) [employer] [facility] [code = MEDICARE AWV of Medi cine (Initial)] Future Scheduled FALL SCREEN [code = FALL [employer] [facility] SCREEN] of Medicine Future Scheduled PNEUMOVAX >=65 (PPSV23) [employer] [facility] [code = PNEUMOVAX >=65 of Me dicine (PPSV23)] Future Scheduled FLU VACCINE > 6 MONTHS [employer] [facility] [code = FLU VACCINE > 6 of M edicine MONTHS] Future Scheduled Screening for malignant [employer] [facility] neoplasm of colon of Medicin e (procedure) [code = 386328801] Future Scheduled TETANUS SHOT (ADULT) [employer] [facility] [code = TETANUS SHOT of Medi cine (ADULT)] Future Scheduled BMI FOLLOW UP PLAN [code [employer] [facility] = BMI FOLLOW UP PLAN] of Med icine Future Scheduled Hepatitis C screening [employer] [facility] (procedure) [code = of Medic ine 164888751] Future Scheduled ZOSTER VACCINE (1 of 2) [employer] [facility] [code = ZOSTER VACCINE of Me dicine (1 of 2)] Future Scheduled MEDICARE AWV (Initial) [employer] [facility] [code = MEDICARE AWV of Medi cine (Initial)] Future Scheduled FALL SCREEN [code = FALL [employer] [facility] SCREEN] of Medicine Future Scheduled PNEUMOVAX >=65 (PPSV23) [employer] [facility] [code = PNEUMOVAX >=65 of Me dicine (PPSV23)] Future Scheduled FLU VACCINE > 6 MONTHS [employer] [facility] [code = FLU VACCINE > 6 of M edicine MONTHS] Future Scheduled ELECTROCARDIOGRAM [facility] Test COMPLETE [code = 71175] [facility] COLON CANCER SCREENING: [facility] Test COLONOSCOPY [code = of Medic ine COLON CANCER SCREENING: COLONOSCOPY] Future Scheduled MEDICARE AWV [code = [employer] [facility] MEDICARE AWV] of Medicine Future Scheduled TETANUS SHOT (ADULT) [employer] [facility] [code = TETANUS SHOT of Medi cine (ADULT)] Future Scheduled Diabetic foot [employer] examination of Medicine (regime/therapy) [code = 551909259] Future Scheduled ANNUAL DIABETIC [employer] [facility] RETINOPATHY SCREENING of Med icine [code = ANNUAL DIABETIC RETINOPATHY SCREENING] Future Scheduled BMI FOLLOW UP PLAN [code [employer] [facility] = BMI FOLLOW UP PLAN] of Med icine Future Scheduled HEPATITIS C SCREENING [facility] Test [code = HEPATITIS C of Medic ine SCREENING] Future Scheduled FALL SCREEN [code = FALL [facility] Test SCREEN] of Medicine Future Scheduled PNEUMOVAX >=65 (PPSV23) [employer] [facility] [code = PNEUMOVAX >=65 of Me dicine (PPSV23)] Future Scheduled PREVNAR >= 65 (PCV13) [employer] [facility] [code = PREVNAR >= 65 of Med icine (PCV13)] Future Scheduled FLU VACCINE > 6 MONTHS [employer] [facility] [code = FLU VACCINE > 6 of M edicine MONTHS] Future Scheduled ELECTROCARDIOGRAM [facility] Test COMPLETE [code = 65010] [facility] Scheduled COLON CANCER SCREENING: [facility] Test COLONOSCOPY [code = of Medic ine COLON CANCER SCREENING: COLONOSCOPY] Future Scheduled TETANUS SHOT (ADULT) [employer] [facility] [code = TETANUS SHOT of Medi cine (ADULT)] Future Scheduled Diabetic foot [employer] examination of Medicine (regime/therapy) [code = 711285902] Future Scheduled ANNUAL DIABETIC [employer] [facility] RETINOPATHY SCREENING of Med icine [code = ANNUAL DIABETIC RETINOPATHY SCREENING] Future Scheduled BMI FOLLOW UP PLAN [code [employer] [facility] = BMI FOLLOW UP PLAN] of Med icine Future Scheduled HEPATITIS C SCREENING [employer] [facility] [code = HEPATITIS C of Medic ine SCREENING] Future Scheduled MEDICARE AWV (Initial) [facility] Test [code = MEDICARE AWV of Medi cine (Initial)] Future Scheduled FALL SCREEN [code = FALL [facility] Test SCREEN] of Medicine Future Scheduled PNEUMOVAX >=65 (PPSV23) [facility] Test [code = PNEUMOVAX >=65 of Me dicine (PPSV23)] Future Scheduled PREVNAR >= 65 (PCV13) [facility] Test [code = PREVNAR >= 65 of Med icine (PCV13)] Future Scheduled FLU VACCINE > 6 MONTHS [facility] [code = FLU VACCINE > 6 of M edicine MONTHS] Encounters Start End Encounter Admission Attending Care Care Encounter Source Date/Time Date/Time Type Type Clinicians Facility Department ID 2020-06-29 Inpatient [facility] [id number] [facility] 22:07:00 77 [facility] 2019-10-22 Inpatient [facility] [id number] SLE 11:26:20 [id number] 2023-04-13 2023-04-13 Outpatient TONI PATEL [facility] [id number] [facility] 00:[facility]:00 00:00:00 [facility] 2022-07-19 2022-07-19 Outpatient [facility] [id number] [facility] 11:04:00 23:59:00 [facility] 2022-07-19 2022-07-19 [facility] [id number] 11:04:00 15:54:00 Encounter [facility] 2022-07-19 2022-07-19 Outpatient LUIS M POLANCO [facility] Surgery [id number] [facility] 11:04:00 15:54:00 [facility] 2022-07-19 2022-07-19 [facility] Sheikh [facility] [id number] 11:04:00 15:54:00 Encounter Cobylamine [facility] 2022-07-19 2022-07-19 Anesthesia Tiara Cuellar [facility] [id number] 13:14:00 14:31:00 Event Elias [facility] 2022-07-19 2022-07-19 Anesthesia Tiara Cuellar [facility] [id number] 13:14:00 14:31:00 Event Elias [facility] 2022-07-19 2022-07-19 Surgery , [facility] [id number] 13:00:00 14:00:00 [facility] 2022-07-19 2022-07-19 Surgery , [facility] [id number] 13:00:00 14:00:00 [facility] 2022-07-19 2022-07-19 Outpatient TONI POLANCO [facility] [id number] [facility] 11:04:48 11:04:48 [facility] [employer] 2022-07-19 2022-07-19 Outpatient SHEIKH [facility] [id number] [facility] 11:01:47 11:01:47 [facility] [employer] 2022-07-19 2022-07-19 Travel [facility] [id number] [facility] 00:[facility] 00:00:00 [facility] 2022-07-19 2022-07-19 Travel [facility] [id number] [facility] 00:[facility] 00:00:00 [facility] 2022-07-13 2022-07-13 Outpatient SYEDA SANDHU [facility] [id number] [facility] 00:00:00 00:00:00 [facility] 2022-07-13 2022-07-13 Travel [facility] [id number] [facility] 00:[facility] 00:00:00 [facility] 2022-07-13 2022-07-13 Travel [facility] [id number] [facility] 00:00:00 00:00:00 [facility] 2022-05-18 2022-05-18 Office TONI MERCEDES 1.2.840.114 [id number] [facility] 15:34:33 15:34:33 Visit MIHAIL AMBULATOR 350.1.13.21 College Y 0.2.7.2.686 of [id number] Medi darci 375 e 2022-04-19 2022-04-19 Outpatient [facility] [id number] [facility] 08:51:56 16:16:25 [facility] [employer] [facility] [employer] 2022-04-19 2022-04-19 Outpatient BCM [facility] [id number] [facility] 08:45:35 13:54:04 [facility] [employer] 2022-04-19 2022-04-19 Outpatient JORGE [facility] [id number] [facility] 10:39:13 11:21:15 [facility] [employer] 2022-03-02 2022-03-02 Office DANILO Mercedes 1.2.840.114 [id number] [facility] 15:20:00 15:40:00 Visit Mihail AMBULATOR 350.1.13.21 College Marino Y 0.2.7.2.686 of [id number] [facility] darci 375 e 2022-01-25 2022-01-26 [facility] [id number] 10:23:00 21:22:00 Encounter [facility] 2022-01-25 2022-01-26 Outpatient [facility] Surgery [id number] [facility] 10:23:00 21:22:00 [facility] 2022-01-25 2022-01-26 [facility] [id number] 10:23:00 21:22:00 Encounter [facility] 2022-01-25 2022-01-25 Outpatient [facility] [id number] [facility] 10:23:00 23:59:00 [facility] 2022-01-25 2022-01-25 Anesthesia Shady Tena [facility] [id number] 17:11:00 20:51:00 Event Mary Jim [facility] 2022-01-25 2022-01-25 Anesthesia Shady Tena [facility] [id number] 17:11:00 20:51:00 Event Mary Jim [facility] 2022-01-25 2022-01-25 Surgery Chelu, [facility] [id number] 16:03:00 18:24:00 [facility] 2022-01-25 2022-01-25 Surgery Chelu, [facility] [id number] 16:03:00 18:24:00 [facility] 2022-01-25 2022-01-25 Outpatient [facility] [id number] [facility] 00:00:00 10:22:00 [facility] 2022-01-19 2022-01-21 [facility] [id number] 15:19:00 20:40:00 Encounter Pati Piña shiv [facility] 2022-01-19 2022-01-21 Inpatient ER [facility] Emergency [id number] [facility] 15:19:00 20:40:00 [facility] 2022-01-19 2022-01-21 [facility] [id number] 15:19:00 20:40:00 Encounter [facility] 2022-01-19 Outpatient [facility] [id number] [facility] 00:00:00 23:59:00 [facility] 2022-01-19 2022-01-19 Orders [facility] [id number] 00:00:00 00:00:00 [facility] 2022-01-19 2022-01-19 Travel [facility] [id number] [facility] 00:00:00 00:00:00 [facility] 2022-01-19 2022-01-19 Orders [facility] [id number] 00:00:00 00:00:00 Only [facility] 2022-01-19 2022-01-19 Travel [facility] [id number] [facility] 00:00:00 00:00:00 [facility] 2022-01-17 2022-01-17 Office Chelsie, BCM 1.2.840.114 [id number] [facility] 16:00:00 16:40:00 Visit Mihail AMBULATOR 350.1.13.21 College Marino Y 0.2.7.2.686 of [id number] [facility] darci 375 e 2021-12-23 2021-12-23 Outpatient MHIE DARIN [id number] [facility] 13:45:00 13:45:00 16 l [place] 2021-12-23 2021-12-23 Outpatient MHIE DARIN [id number] [facility] 13:45:00 13:45:00 16 l [place] 2021-10-19 2021-10-19 Office ALAM, B[facility] 1.2.840.114 [id number] [facility] 09:17:10 11:20:44 Visit MAHBOOB AMBULATOR 350.1.13.21 College Y 0.2.7.2.686 of [id number] [facility] darci 375 e 2021-08-05 2021-08-05 Office Alam, BCM 1.2.840.114 [id number] [facility] 12:20:00 13:10:48 Visit Mahboob AMBULATOR 350.1.13.21 College Y 0.2.7.2.686 of [id number] Medi darci 375 e 2021-06-29 2021-06-29 Outpatient MHIE MHIE [id number] [facility] 09:00:00 09:00:00 15 l Puneet 2021-06-29 2021-06-29 Outpatient MHIE LANDONIE [id number] [facility] 09:00:00 09:00:00 15 l Puneet 2021-06-17 2021-06-18 Inpatient EL ALAM, [facility] Surgery [id number] [facility] 10:18:00 14:10:00 MAHBOOB 2021-06-17 2021-06-17 Outpatient [facility] [id number] [facility] 00:00:00 23:59:00 [facility] Medicin steven 2021-06-17 2021-06-17 Outpatient MHIE MHIE [id number] [facility] 13:15:00 13:15:00 13 arline Teixeira 2021-06-17 2021-06-17 Outpatient MHIE MHIE [id number] [facility] 13:15:00 13:15:00 13 arline Teixeira 2021-06-02 2021-06-02 Outpatient MHIE MHIE [id number] [facility] 14:45:00 14:45:00 14 arline Teixeira 2021-06-02 2021-06-02 Outpatient MHIE MHIE [id number] [facility] 14:45:00 14:45:00 14 arline Teixeira 2021-05-06 2021-05-06 Outpatient MHIE MHIE [id number] [facility] 14:45:00 14:45:00 12 arline Teixeira 2021-05-06 2021-05-06 Outpatient MHIE MHIE [id number] [facility] 14:45:00 14:45:00 12 arline Teixeira 2021-03-25 2021-03-25 Outpatient MHIE MHIE [id number] Memoria 10:30:00 10:30:00 11 arline Teixeira 2021-03-25 2021-03-25 Outpatient MHIE MHIE [id number] Memoria 10:30:00 10:30:00 11 arline Teixeira 2021-03-09 2021-03-09 Outpatient MHIE MHIE [id number] Memoria 13:00:00 13:00:00 10 arline Teixeira 2021-03-09 2021-03-09 Outpatient MHIE MHIE [id number] Memoria 13:00:00 13:00:00 10 arline Teixeira 2021-02-25 2021-02-25 Outpatient MHIE MHIE [id number] [facility] 14:45:00 14:45:00 08 arline Teixeira 2021-02-25 2021-02-25 Outpatient MHIE MHIE [id number] [facility] 14:45:00 14:45:00 08 arline Teixeira 2021-02-25 2021-02-25 Outpatient IE IE [id number] [facility] 11:00:00 11:00:00 09 arline Teixeira 2021-02-25 2021-02-25 Outpatient MHIE IE [id number] [facility] 11:00:00 11:00:00 09 arline [place] 2020-12-17 2020-12-17 Office GALILEA BCM 1.2.840.114 [id number] [place] 11:35:22 17:02:09 Visit AGHAN, AMBULATOR 350.1.13.21 College HAMID Y 0.2.7.2.686 of [id number] [facility] 375 e 2020-12-17 2020-12-17 Office ALAM, BCM 1.2.840.114 [id number] [place] 11:34:58 16:33:34 Visit MAHBOOB AMBULATOR 350.1.13.21 College Y 0.2.7.2.686 of [id number] [facility] 375 e 2020-06-23 2020-06-23 Office Alam, BCM 1.2.840.114 [id number] [place] 13:42:26 16:51:35 Visit Mahboob AMBULATOR 350.1.13.21 College Y 0.2.7.2.686 of [id number] [facility] 375 e 2020-06-23 2020-06-23 Office Alam, BCM 1.2.840.114 [id number] 13:42:26 16:51:35 Visit Mahboob AMBULATOR 350.1.13.21 Y 0.2.7.2.686 [id number] [facility] 2020-01-30 2020-01-30 Office Alam, BCM 1.2.840.114 [id number] 10:49:04 15:06:03 Visit Mahboob AMBULATOR 350.1.13.21 Y 0.2.7.2.686 [id number] [facility] 2020-01-30 2020-01-30 Office Alam, BCM 1.2.840.114 [id number] [place] 10:49:04 15:06:03 Visit Mahboob AMBULATOR 350.1.13.21 College Y 0.2.7.2.686 of [id number] [facility] darci 375 e 2019-12-16 2019-12-16 Outpatient SLEH SLEH [id number] 7-2 SLEH 00:00:00 00:00:00 [id number] 2019-09-17 2019-09-17 Office Alagilbert, BCM 1.2.840.114 [id number] 10:55:39 11:56:54 Visit Mahboob AMBULATOR 350.1.13.21 Y 0.2.7.2.686 [id number] 315 2019-09-17 2019-09-17 Office Alam, BCM 1.2.840.[id number] [place] [address] 10:55:39 11:56:54 Visit Mahboob AMBULATOR 350.1.13.21 College Y 0.2.7.2.686 of [id number] [facility] 315 e 2019-07-25 2019-07-25 Outpatient MHIE MHIE [id number] [facility] 10:15:00 10:15:00 07 arline Teixeira 2019-07-25 2019-07-25 Outpatient MHIE MHIE [id number] [facility] 10:15:00 10:15:00 07 arline Teixeira 2019-04-09 2019-04-09 Office Alagilbert, BCM 1.2.840.114 [id number] 10:59:27 12:19:11 Visit Mahboob AMBULATOR 350.1.13.21 Y 0.2.7.2.686 [id number] 315 2019-04-09 2019-04-09 Office Alam, BCM 1.2.840.114 [id number] [place] 10:59:27 12:19:11 Visit Mahboob AMBULATOR 350.1.13.21 College Y 0.2.7.2.686 of [id number] [facility] 315 e 2017-06-29 2017-06-29 Outpatient MHIE MHIE [id number] [facility] 13:45:00 13:45:00 06 arline Teixeira 2017-06-29 2017-06-29 Outpatient MHIE MHIE [id number] [facility] 13:45:00 13:45:00 06 arline Teixeira 2017-04-27 2017-04-27 Outpatient MHIE IE [id number] [facility] 14:15:00 14:15:00 05 l Puneet 2017-04-27 2017-04-27 Outpatient MHIE IE [id number] [facility] 14:15:00 14:15:00 05 arline Hemet 2016-11-23 2016-11-23 Outpatient MHIE IE [id number] [facility] 15:00:00 15:00:00 04 arline Teixeira 2016-11-23 2016-11-23 Outpatient MHIE IE [id number] 165 [facility] 15:00:00 15:00:00 04 arline Teixeira 2016-10-05 2016-10-05 Outpatient MHIE MHIE [id number] [facility] 15:30:00 15:30:00 03 arline Teixeira 2016-10-05 2016-10-05 Outpatient MHIE IE [id number] 165 [facility] 15:30:00 15:30:00 03 arline Teixeira 2016-03-18 2016-03-18 Outpatient MHIE IE [id number] 165 [facility] 10:30:00 10:30:00 02 arline Teixeira 2016-03-18 2016-03-18 Outpatient MHIE IE [id number] [facility] 10:30:00 10:30:00 02 arline SanchezHemet 2016-03-08 2016-03-09 Outpt Diag nullFlavo [facility] [id number] [id number] Memoria 13:40:00 04:59:00 Services r Outpatient 00 l Imaging [place] [facility] 2016-03-08 2016-03-09 Outpt Diag nullFlavo [facility] [id number] Memoria 13:40:00 04:59:00 Services r Outpatient 00 l Imaging [place] 2016-03-08 2016-03-08 Outpatient [facility] 29 29 [id number] 08:40:00 23:59:00 Pepe Gordillo 2016-02-25 2016-02-25 Outpatient IE IE [id number] [facility] 15:15:00 15:15:00 01 arline Teixeira 2016-02-25 2016-02-25 Outpatient MHIE IE [id number] 165 [facility] 15:15:00 15:15:00 01 arline Teixeira Results Test Description Test Time Test Comments Results Result Comments Source Tissue Exam 2022-07-21 18:34:08 Test Item Value Reference Range Interpretation Comme nts Case Report (test code = 104) Surgical Pathology Report Case: [id number] Authorizing Provider: Coby Polanco MD Collected: 07/19/2022 01:33 PM Ordering Location: [facility] Received: 07/19/2022 03:44 PM Pathologist: Carlos Keating MD Specimens: A) - Biopsy, Gastric, bx random r/o H-Pylori B) - Polyp, Gastric, polyp taken with standard forcep C) - Distal Esophagus, bx r/o EOE D) - Proximal Esophagus, bx r/o EOE DIAGNOSIS (test code = 3220) g3yvjRNqQGJax6xjFIYghPNxCtGcHoHyTaNhUn p cdWMxIHtccnRmMVxlcGljOTYwMlxhbnNpXHNwbH JbP5IyrhkpPUnbOF0bCN2jxTeygFYedDIyQGTeX lTky2dvs152zHDel5vfYISLooiyjXd2gEfcC87e z1D4UcsfZ5wrXECcGHwySFEgJGervXVbUQh3XKM pzQGnitUcQhQsUEXstWMraKV4RMVfLT9csdqiLU wnRRelPDFqcfB7HOMccKDtM9SwXSReVN4wlvaeF NO8YWinGUUpUDX0EfHaEWRaa9Vsjuo4IbXbiQRd AJwwqELgjdttuyTzDOOpQCqrWgNmF4BXLJRUDSk yJBWxLWRLDV4KG10uVCRaXVCJWF4AI0nlMmGaGT ELZONoFWH2MGOpeoEuWEPvPB1DQdOFHX6ZL85JS ZQQVMIICKXCZLEHWBBHCYiCB8YMS6CLRKaXLMbv BPXbL4CdCSFtNKASYFcFDEhGBT2BE31BLZPQLMI TGK9KELFSA51VCxuCZM4DJXONQNiZD7OSQYLqXA LHE9VWYQaYCVbjlFGkXAWjTDRqTUFoXeBNOMTRN pCuCl2IOMxGKOcPE6UFD4YBFvASAWvYJcplO1VH SF3GW56ABEOIYBwiFOKJFAHUTkoaROWyVH5eTD5 FS0QBKIFPYIQKYhSJHpKBK5PVNlGUGM7OOACXME MCDOCkZVENA6CXIMVCMCnwZNRFINoGOU1HXOhzC WJodFDuVREeOFMUU27ES6xgDEFOYJfWOVRGPD6S P7r0EIZwyiCdEYGsYzEMRTvGQUnHXR8XXBOYAZd OCTEibzwkGVBwW7TwETLkHTRPF5DMVZaFYmnqUU xRPYFCKMMGQJ8QZ2t0EPUnzaHnNVGmCeFNFVMNY HOLC9OFGMwJADcGXDTorrPkNTIqGmBLCUVUHxBu Ux3LIQSZM1nEJ0FFOIrTJUscUFVxfBDbYPYxSJH ZD6IXFTiJTxosXTOSXAtGYYdjTTDGY2GGNBbgcT TuGTSiCJEVYFFIZRndQRZGESnKP6bLIDTyiCMoS QUcJBMZDKrRBVmRIOTUR6MqFK3CVV7UXBiFFSlP UTRpxg05BHI7BtMmn1T2WOR6HOFkKEFyv8evANI pdLEiYiVjSbQcInFeHqpjbTYcFRYdSpDqx1pru0 35wBKqg7erBVLjCcC0zORqGXJyoZZaM387NTHsG Gsja5mbi8XlRLMbySZuh3M3KXNMdauboCf4wSxf U60bf7A5EhplA2kaLFOlRZZrU8JrRD2zCTCvZhj 3IWR8OZX8DCUrMKYvC7DyDW1tPAFsvNRoXSp5x8 iscXkhMHZrBVP2e4ceRNnrubEdQI6ouk3lpMn5o 8pujhVeRTXuCDFluTOVIVZtF5RzlDszXx5tiSx1 mHiuHfoiBZC4Rsj8WV9blu38izc6bAhpETOweop zGnY5VJqxLNKmypveOAu9PJwgSAWuyQB2MNMleP PdG3RpJDRnFZ3amir5CPA9RHlqUUXxSdQ8ULOrv SIbZJSqrXdlQGuyb384INE4TsKwDI5mK3Mvh0U4 pR4jcMCoCZSgrHAxHtCkOPNtem3erKFeXDghp6K zRTF7ehK8zVMtwGNdXVNdFeN1YTrnZC5agt15ZI AlHDD7ll1kbIXkvGiyryDjjMDeTTurP9YpPPGom 365SIIgF0HvEYQec3M2weSlRnNvQVTilHN9qxP1 MVVrBK0kbmhvb8yaUVngABgkOYPbkzI1gkB3WXE fmTEeS6ZtrL4jRQZpAD8gyzxhl0naESC1WDqzNO LyMZY4YhPdFECpg5Jrdmn4KcJui0FiaEIwNBznQ 46ai938OYFiorNrK4gbjMXeitxryZXtkfewIVse caP5VXRvPOuhjnmeCDCxKHyqT3efMfAnRYQypVc fEValz3OwGYMyOEIaCzXzvBAzJMUtAcj2UKFmiN OnGSWsDcSqC2qhhuhkPfQSOBLut5irK3kriWNSn PLdT7BpFGzqfsUpGRnrPEhqGJL0GAS9En26DjG3 GPPdpm11 CPT Code(s) (test code = 3357) k8mncMNrAWEkdYQ0EjBfMKYlg0xwr3MxiLXq cGF kLRrivDRsjlNugj97qUX0oV55UO1nTCYbMqV5BG EcyjW5Uei7QKGkSTEneVYbT325q7eyd0ssdtTaw AN4qGjwEJJeypfoLrN8CGeyCSFbeczoKTi3BRmx SGZdfHX4SNMwkPDgT8CnUMNvYZ9lwof5RSF4TFb jIKJoPxT7ORBgmQEgTDPkeSsvXDvbl108UHC6Ok PkKYWxfpKolDnkdP1kXzRmYMB8GWDxFBw1ZKQgt n0= CLINICAL HISTORY (test code = 3356) d8hjlGBoKHIsoCB2NjPsWHGbc8cxc3Z sdHBncGF tKJoteHKvvgKmlm08uWS6hB66YU5hPUTvJrH5QH FddrX6Huq2YDBfRJGahXKxF537w2ikr4lnssTqa OL7MBLqCZDyK0AtHQ5gRPYffCGqM13xvMUqGGG9 IIBzHPNhfIIjIMSePDU5EKUsiMYiH1htUJEiGV8 dkponMWcpQHxlNOQuhDC6KTSuqAYzH2KgBFFhZM qkONKjsbc3XgNeKn4yxEDcxSnhLGmiDQCjDQFoR EkhvYIagpceziRuFIGlSNMFHYV8zr0rz29pjRHn HHObDLFrRyc8sDRpsGWrWXYrHTAho3xujeJyWC5 vNELop4FhUNYkjJ5uQIWahd4= GROSS DESCRIPTION (test code = g5eyoBWrHYFakEGROZXjA8hvqiTyMSGbhZZj Z3B [id number]) wtudlYJsrED8sPX3avKwqyCCxjEEjOA4CITNfUa KdQROtkXKdvmBwEpLdJKEwgZWrnBF2LSCkAH8yt lfpICkqLXdgBHMiyaF5QWXaiSWmB0OdOGAyHL2s bhqcWTL5CEouuC6rebJNLaskLe6stNZlhNsgLuT yJnAdQAYzIUYsDQHtfEwiSGReLHp4nW1ZMuttG8 7ee9I4Hkz0OPVlDGEeP6UyTC4yHJOcvAJkT80LC auiTEJ7YOVJAgztYHRsLS5Tt1muTEJppRRzERA7 LEswsGReATUsVKRzGAa7UFWdEWmleZUcYC1ajYm kSostsHaqv1XozNKaFIqsXSDcMCTpVQpeFCGfLM 0VQlCkODM8VNPdHPYjPLa2BAo5YG2ITbOyYNGfD BiuSJw6BRYjFNj6QOpeJX8PKKYbBmTmJsN5AtY5 NTEwMyBcXHQgMiBcXGYgQXJpYWwgXFxmbCBcXG5 rtEddoYUwppNPIzVCyE6sp8ylHTqbb4AfcTKoKK BhciANClxlcGljTmVzdERvYzEgDQpcbHRycGFyX GxpbjBccmluMCANClxsdHJjaFxjZjFcZnMyMCBS JYAqaDYlFFJgykUbi1EhGZzehbAsJGRzvWUuBSq uiHdrxUahASZloCkipsDcJ6R4ceMoUE7pFXPuCB OgG2NjLLWfC63lKCZfjO6dAYDfYN4dSAm3KGRpY POxEdwuF4RrbAOhQsAfOBSnQJ30sZRdcKhuGRTn mzThq3E3PUPek0C5FQWbwfRurPBnmGLblASzt5S cxP0nRWQyZLFxQAYxOqUavBGmbnMeolUopHHeoA WpwM2cidGdk85rERkfkRExUPDkEHMgiFJyxCJ7A CObuM2atN06gePwumTMYE7urYMmEQ4JZSTqvuBV ClxjZjBcZnMyMiANClxwbGFpblxlcGljTmVzdER eLsWaeTxqlK50OVDdjKKqXDK5EU2bSBGqqalvDL CyRLUeZOX3RHmtyX71hFHhQLYeIRTelWKlsH3Lx 4aoQDEymQIgURI1OGalvYWuDZQrBVCrWZucIdBa W6WEMRRgKFcsFBFiRdZtOZb0DYtyC6SIFGMrGNR pJCY0WaSvJlW0SUo2YVCEYl8nCdXoEGJaSqRaXA R3NWVpCPytkNPuOHnnIuZYdrnfyEXgAOTeLSqvd wU5AKUqBYXlgXycwB3cJw5gQL9brKQtLFqes2Ye aWMuXHBhciANClxlcGljTmVzdERvYzEgDQpcbHR ycGFyXGxpbjBccmluMCANClxsdHJjaFxjZjFcZn FaLWLBUWPclTRcOHBnqxRra4BsLBlgprCgJHZxr GZpOBrvmWeamKvoOTNhgTwsfeKiT9B7utUwLN5h OVGuHFRtO3UqZKRaD85aFEIjkW9dYWWkSW1mEUe 1OSAlIDRvTjvhJ4WvlXTmVbObi4j4sQGeoIWlTJ LjTfZhwGWzTnJxuREeNsGfV35vzLAiQESvUtIqh Jaid9SzOTLiXIgcMV36EXB1aFlxpEPfzrKypIMw rNH6GHDwhF8lxJ18koIddxBTOA0nfHTmHR3CMPD hciANClxjZjBcZnMyMiANClxwbGFpblxlcGljTm YnyJIiHmRgzBthbC41QAZkzAKxJHB7RR8dNWBqu npdKPToERCxFJR4HEkqgO73wRSrROIlNLKatZKm aH1Cd6yoZMTrsSHyZZX5CWhdqOZpBMNiDVWrWWq yRoHbS0ADRNShOKvwJHTlJnZqMSx3OMqyK4AVKV UtHFPuTOQ8VlXkLyA2QJo5BOWOJq2jVwZsXLWsU aB4ALA2ZEBwSVafyTNdYBudCrGQixutzMScJSCs NVnmrtM7WNQiBZZfzPpkaC5gJw1nRDbbxCLaDEE nk5PbXNh4ro0sdDWcDP6KILSfgVUBMBO6RA0aWF KOEbxonKTiPMZvzYrdIJqinR9gUP5AQOs3gmVzQ QVfRLbmgmFrYYToC4PewhJtVHupOOMzxa3wjVae UXgqOoTvVZXpv0n2tNT5kHIeqZV2kMIldAfbDiX zIH7guMJdCF9uMOidLFzsclFot1GxLE71oLLwgn KwgfVbNLV1TvCxMHwmMBCuhPK4SXtwUXYsiDdlV 2LjRnCkotTmPnY5VC9oi51hyTD2yWUyvJRjGvCj K12zanUkGP3oTSI8asliDtU4cHR4gaXxLvSiW77 vgM7fU2CsNRAgt2IyLZugDO3sfD5pRZH8eWqpoM QzizYsv1XgfTr8nHOfXLhfUOGcmT5ssE4vQpGpY IGrltUUVarrDIBvZVshE3TaRWKtKgTpDIjlsPet rE6fRBYrL65pa6WHl2FuWVWiRVimb5xfyVoou5F uwIMxZAmhKNGnaWFoNPujxX4aDuEbc5nqsIy9YE vjdqK9SCXhsu4TBnojLxdcvNdvu3IytMCzUSnqU IHoOYQqTArkOCFqKC5JQoQhSNC5TXUfKWMcWKy5 EUq1ST9TPmDuJNUfZRerCZi7JzOyCKs5UGuoKO6 NDNEyXvOxMpEuYTW4SDLdBvVoOCLeTnXkARNrGT ZoYKhyMHkjaUKiGD2jrGosemT7EMMmZEznCURbV XGjd0fnqZBqXHBmx0BfHNc0as9jwUPfNQ8YFALc yYPQAYO3FX0nGLFVXrrmdHRyMFElkVrkFVuzyB7 qQQ6OQEw2icEyLMKlNIvgrwBaGXTyD1PnbvOaNX reWIEbjk0hlZudBSgzWwDwCZJfc0l9cJH5aGNbf SS2lVLxfTzvDkPsSO5ikDDpKG9fJIuqIVznoiAv d3CfMI61kFCaqnEwdrJzQHP5ZrLpMNovGUMsvq3 9dW1mkBPhb17pqUEltFApHZSbHXKwKMVshtLco4 I8HTWlw5V2LQNamgFzcOYmaRGnxFCnh2JrnM1nV ELkHFXmWEHaWtPeiCEkliUbxoRraWEnyUJipX8r erApm90gOLvsuMCtZTDgSTDjhNZhvYD8HHAdcW1 ovK46geAztnJWQW2diJJkCL7XTCWrypUZTonkPz DbUeTmMuJNuTjcxkBYont0AVsnKFOrYNUSBFNBM CAoQVNDUCkNClxwbGFpblxlcGljTmVzdERvYzBc kFiygI44JTLdnJYwDVE0TX6lKJEkjpovFSUrTPM oENC4NAtqtS10wYAwZBZgAYHtfNBmxX1RVGCfYR X1DEeamY11yGHoWA0SLPKwVHE2EYMmiVGsWBV4R T9mpD2ZxO== MICROSCOPIC DESCRIPTION (test code = t1zaxYIbOXQwmWY0AxWmOOWom4xaj1 [facility] yDXxaqFDvmyQujo84gAQ1rP92MM8rMRYvLoU4KA QxvwS4Jse1CJJeOBQvuNFuS846b6ecz5ceboIjx BD6gAoiKZYlohrnSrM7HHryDEDwhgkkWDo0WLfj MDIziZL7XUFphPCdW5XfYPMyGG9rmkr0PEJ7AQy vSCCiPfO7YXLjoDJbOJHfhFfcLDbix097GIN6Zy TnOKIohdGfoHydjM1mCwRoXWMRTPMyf2DvFZLkV HBhclxwYXJkXHBhcn0= [facility] H[facility]09[facility]72[facility]23 18:34:08 Test Item Value Reference Range Interpretation Comments Case Report (test code Surgical Pathology = 104) Report Case: [id number] Authorizing Provider: Coby Polanco MD Collected: 07/19/2022 01:33 PM Ordering Location: [facility] Received: 07/19/2022 03:44 PM Pathologist: Carlos Keating MD Specimens: A) - Biopsy, Gastric, bx random r/o H-Pylori B) - Polyp, Gastric, polyp taken with standard forcep C) - Distal Esophagus, bx r/o EOE D) - Proximal Esophagus, bx r/o EOE DIAGNOSIS (test code = f8uzbBSjXLXio8ciNTJmaP 3220) FuZzEwMzNcZnRuYmpcdWMx IHtccnRmMVxlcGljOTYwMl mibcVhGKZsrHKwB6Gjlocm FIjtEE5bSI0txAgcgSToqI QdIKLyEyCwm8gly796sHJr x9pxKMKKcssjcHr5lKwuA4 1pv9I1RttzM6hfUDItLHjm RETcWGzinQOgFPk9ROCsgA VydzEyMjQwXHBhcGVyaDE1 FYNuSY4rpohhKCcmEFaaHL PqkqY7JKYqvIQzT0RjLYVp LD8ujwzbWSB2BYaqKYGpID W1VeHlEJClj5Rrpsd7AbWn cGFyZFxwbGFpblxmczIwIE IhXJfaQfPmT5MNGGGDSHhg QXUzWTDRRL8GZ55vMJLvJP GWQG5VI8ebUlPjQRSBBJNh SSV3JLOotiGlRGNqLJ2XQz JCNF3FR42MLSEPBSRLANQW TZBBHCIZGAmXO5DEZ6SBDS yFXWzrZMNqS9BcQEKrMWMU JHfZGSnWMB2AZ29GQHZPSE RYRC9KNXEBS27QTgpMHJ2P TPCIWNeWY6ELWFHcFXZQD1 JNQUxJVFlccGFyXGNmMSAg GBVvBlAQRGRXDcMtTs2PLT mBWIrUG3VIC4EFQvVIBTcU YyazK8KNIV0UP06SKAYEXR kqKCJDCHRREpvaRIPaHO7k IQ3HL4HHHCAIBGXRKyWWSg QGO8YWPiIXVQ2JKBEGKCEX PHGtUAXNG1KVHQYEQNhgNE TPBPoXXB9WNVpsGICxgGOf JCRaWBTEK93KV4xjMMTGIL wZMHHFEY2MO6g5KAElkvXg CDRuEzZZHWsKPFjNEF8ICY WSBZaSWXBkeihaAXToP0La QYRdIALSN7NWTOcGAgrsXA bBZQHSYRKWHS6QU2u2UDGk ciAgLSAgUkVGTFVYIEVTT1 BIQUdJVElTXHBhciAgLSAg LxRHSOOBOoAxKc8NYPQDN7 zIH9PMWCqVCNmrLIIqgROm ZMIsEQBFG4IINJlBBntxQX VTIUvXQIjxFPBQX0VBJMgb cGFyICAtICBSRUZMVVggRV MWNAaTV0zCYHKgcGQpQKFn JNSVIWzSNQaVPMWDA3KpBM 6QHB8LTLiPPPlCXWFulx03 EDS5LaSbt9J9RAB6NUOwNC Fzi7mfUWZgxLCwSbDoEjAx ZnRuYmpcdWMxXGRlZmYwe1 ifh188gVOga0cwGEAyDkL3 uTElQSZnlYPfO986AEZqIV ucm8tdv3GmQVBcoTVft0P6 NQGImhpsdMl0sKfvJ66tf6 G8SnafQ4ngPBXaFJTbO2Sr MQ2xOUDdGil8UVQ3UNV5JR QyOLAyQ7QtHF1xSRNuyVDe CMx4m3bbbBdeQIOiXHK0l3 kdXMfixhCnSX3olr8geWg8 r3kmwcQgIRHjYAOjoPLOST GvM5LuuPtgDa4yyNz4uKnt UkerXZV0Bcu6DI8wfk60rx j4nQdnFWXvhqmsFgS7SDqu VKSmbegbSSd4EIvoNYNgdY E9YGIgcBDuO3NqHOTjVU7z tsc6KPO6SFuaJNGzRwT6XT ZqmBPdRXJocYnbGToyy906 KIZ1MyZlFH0xL2Phg3Y6vW 9maXRcZGVmdGFiNzIwXGZv wu2irIAlMBmhk6ZyIZB6bw R1cBIhlFDnTEMyHrD3OPko CL3ggq26RDHaDEM3az7rsX OlvEkbeiUveTNlNHsdE5Nn HNMwh739BNWhE6TyBRIey4 X0isQtVgXtRLCcnCE8ubX7 FPNlHX0jaztiv3hzQAmxVP qfKLQgmwE2vsA6XBMliVLh C8KhrH9vNHMcDA1oowkme7 uaMMF8RUdrJRUqAJH9FsTq VEPed1Mykce5TmIhb0QgyT UwYUtgC26aj505OQQqztFh C0vsiBEcjpeuxQKifphmSI hgmrS5ITLiSBwksviwJYBr AMgyK6ayLtZuAMUpoComHP rpp2EwEWOwRZQaScAsvZWa VPOkVtl2TNIopDAvXSNtFt ZxN4dpzdvvKkSSWBQio2rl S9uncQKOjDXeW0VrMYaahc WrVRbtNEjtZWA0BAG6Fx41 FcK8OFUwte49 CPT Code(s) (test code h1ajkSLhIUWytWX6LiZbCE = 3357) Pqi6kss2KoaGXpgBIvBQet rEWpzgMzxk23tBX6hV14YH 7wYULzXwC4ZZNblyT1Nfv8 XXSzBXBykQOdI037t1vfp5 tyssMwzGL1rUurGWCdifmo EsV9MQuiNSYubscvSQv6MY whPKAokJN8LUHqxCNbF6Cu YKMnBW1fwgj7QCQ1VOjjLO WhQoK2DQAnxGYdXFPdiXlm VNiod213EES6EmKwMDPzjt AhaKqscN3nBzYxFOL7YPXj YXg1FMWdwk6= CLINICAL HISTORY (test u1etmDTrHYTocEQ9RwPtLF code = 3356) Pkf6bea7ZhcAAlrWGnFZch mBQggjCsho30qVT5xF83XX 9zQMEyVrV3REVswqD1Tkf5 EVRsVBNzeFEnH945u7ncj4 thnpBzdWS3HXAyJDFiH8Ah OK7cZNGcyBZlK20pgMFkUZ E6AVXoLZCfrZJrKFZyAOK6 NAOqqFVoJ2hsZIIhUS8czr enGEtoEXbeILSetRT7GYRe hNXzK4UoNOWeHHttZLIfgo o9AkPzIu5hsAQaeVtrFLjn YXJkXHJpMVxwbGFpblxmcz SiIHWbNXBFFGH5je9bd47h rXCfPGLhSSJbUxz7bUWsxP UfIGMrLTCvs8oxwaIaLI2w HCIxh6MfXDNzbM2vRAFfrk 0= GROSS DESCRIPTION (test m1pjhDGmEJUfyFXXRFVvD9 code = [id number]) kzwcRlVIJqwNNgJ8Iatgve WZfdEC6eKO2joRltoWAkvV YxIQ6IIQCxWeYqSDTolPFa yvDgEmXhWWZipDPyuHQ1BZ MvNC3ydwdpRVkhBBcoSMMl gyN0XUZmsCLyH7FaRJCtNZ 9ymadzEFP4SRqbpW9umeRB DhjnTe6nqWGuqJeaTiAzYp NoYXJzZXQwXGZuaWwgQXJp PHo0xE7DIxcfT91db9N6Nc a7ZZQsNOCxP1VxHL3tTIJn iRIpG53EGzmrNAD9LOTMEk fkAPHqVI5Hf9oqWBJaoSUw KHT8GTwusNXxBPRcJLHoLF t4OQZnABuwvFInHS9lyZcs OucutUsqq8XhxEKgEZsqSY WyPEEhBNfjGDPxSL6ATnJx IBK7HQElXKKbMNx3PYn3JY 6GElVaNWJtKEfnBIs7FDOj BNs2OWycHK0XZIBcJxEpAt Y7QhJ2YFQpHgZiGIYgLbNa XGYgQXJpYWwgXFxmbCBcXG 6dxMaggRNticFMCmBBbF8n t8loAUryo7ZwvNMvPNGlys ANClxlcGljTmVzdERvYzEg DQpcbHRycGFyXGxpbjBccm luMCANClxsdHJjaFxjZjFc ZnMyMCBSZWNlaXZlZCBpbi Lfj2ZoMBnrrdDmETMbxGNf IHdpdGggdGhlIHBhdGllbn SmA0C9koPiBO6qHOPuEHEw E0SmDRZmI28bKFIdiD1bLH WoTD2eTOd0JSRzLIMbHewb I6AiiLYwVfQeCGQbPE78fI CnxGmlIZUhcjMkj6Z3MJWt b1E4GMZvzdUbjZCknFBwyP Jbx9NpjZ8zOANmEQVwQECt MyBjbSBpbiBncmVhdGVzdC BoeT2qukBvl49uSPkyaLZm HYPaKHSdtKIyrOS8GFKjwB 5bvV21flXbnmSARM8fnMHe MW2DEBXfbzJONozgLyMdPn MyMiANClxwbGFpblxlcGlj BhFemKHwRcMiqSluvT21QD EcfUQcGZZ2OP5sDHVnctug ABTnZUGkWYW4IOauoX92mU EzSUNsNUEcjAFfjN7Jj0up SHWlaESuBGO1BPbbgDOeRG MpFYPfZQbjMvDxT9ULHMGx UJtvMMZoVhVtEWh3EVvbN7 KEPRDhCFQmXWJ4LfUeZjM8 HXj9QYOFSw6rArMtIKIjBf RfEOT4WCUqMGfqaIMmDOfl ZiBBcmlhbCBcXGZsIFxcbm A9ZXInMMLjfHnsgN2bGe6g HC5auWIcGLkcn6WasLIqAL BhciANClxlcGljTmVzdERv YzEgDQpcbHRycGFyXGxpbj BccmluMCANClxsdHJjaFxj ZjFcZnMyMCBSZWNlaXZlZC WdyoBlf7SqEIiqyhMqUZYf bGVkIHdpdGggdGhlIHBhdG ngusUuY1T5ziKbHH2kDCGk RLQjY1GaKLLfD45fSPVbzU 0cHCLcYN5aRRz6YQOeGOOa VsnaG5WdzICpWdOew0w8rD IgaXMgYSAwLjIgeCAwLjIg wWRkPcUuB03qyOJxDNDqQt UeyZpvy4QrMQXhQGukUK99 TEV3fBrcwCShvmEdgIPguC Z3XYSivI0tqK98wdYtlgJD JV7uvNXcIV3YMFTzfqOEYa xjZjBcZnMyMiANClxwbGFp blxlcGljTmVzdERvYzBccG zbkE02NGCikPUbPQD4JG1m MBVdgkeeIJExLRDtMPL2SX zkfP55jEGfAYKmXYHtbRBh nX5Ic0wwNGMtzFCgMGX7PC xcaWQgNTEwMDIgXFxkYiAg T5VCZCIdRAjjEXAqOiOuMH y7OFxqE8AYYMCrWTLkFKT2 KwMiKiX9YIq8BCWUTg4fXr DbPFAnYbB5XWZ4HGAcSYls dCAyIFxcZiBBcmlhbCBcXG KtVBcmfjP2FADlFFFszEib tJ4yPr4kHOcuiSOaHRCqt9 JhXHt3hg5loLXwKA2LKBIm bUZZNIE7QX3hMZTCDzljqE AnQCFseXapOZgeuO3gLY3O GAy3daIuQFMwCPephcYxHO FaQ2VgweCaZYapYHQfne5t xWdkASezUvKtRWSpk3d9vX I8oKSswVI0eAMrkUzeScMn PH6vwHZsGP7rBXabWQwyin Uuu8ViXG60hYYprhSeicMm PVM0CuUzIMxhSWAefUY4FE leGQNorMhyB0SeZfOqgvWe JfG7ZL0nl22vpVF5qHIrsK JjWeIeX22avtViUL5dJJW3 oeuyHdH5oBN8gsMaMfRsE3 5fjN0lU2UcJGGys5IvFEpl HC7fzS6gFOA5rWhiaYNzot But4PttZl1gZGfDQisQXJg lH0bnK2sBoSxBBDhfuNXUe gxWPQsLYrdP6XvBBFrZiTy YXxcoPkovS1xUAZvI51tc0 FHr2KlWSYaCFsvq3msfEvx l4FupVAtMRcsQSBtoZEvXM hiaF7zJcRgu5dglZi1MSsr wpS3MHCdie4WNkjjOtdyyX ckt9KgqJLwNNstTPBkEPHk MWmtREFyJH4YEvKuXOR7WC DkRNFfCXp6AKw4GM2GUbAc XBIaLQwcHXj7ZlMzUIa6QS dgJX5HLPXkVnJjEkYrEHH3 NTEwMyBcXHQgMiBcXGYgQX BzVRpvOQiuvSQcGZ2tcXtr btI1ELIsGUqqMKSnCGCyx8 kmgABpACPzl7IhIRs4ao5n xPWyDW5DZFOidTJGPTQ5FO 9jMSANClxsdHJwYXJcbGlu PPpznD3nCN0XTIa6idIcNR JsZCdpxpTnCKUtQ6EzmlVu TLndVAIkrh1uiYwtDFnlQs SjEBIog0v1sFA4kSZfrCR4 gUOioTutLaOnKO7eyMQcSH 3fIHoaAGwgvvViq5HyTS81 aZPvrbOztaOkHHL9NyQeQC pdEQHcom62bB8pePHou50l aGFndXMiIGFyZSAyIHRhbi Zla8C2EGFhm3J1AFRsvkUc oLKwcKKwdRByf2BevF6cGN VwIHRvIDAuMiBjbSBpbiBn ltJelJSecDUgwS2zkoFkn0 4sIHdoaWNoIGFyZSBzdWJt uQQ5TCErnB5dtI50pqFhjy MJRH7sfVWtHS0VRCJopvBZ ClxjZjBcZnMyMiBQaWxhci UYyzy9VRuaDJKoCADSJRKI VCAoQVNDUCkNClxwbGFpbl xlcGljTmVzdERvYzBccGxh yS90MFPdlCJjFHS6TY5oHL MmelavWITrXEFfASD3XIat xL43tLLkRRTcLTKcrLQhwN 0CAUGmAPO1LWlxfX61wGIr PJ3XAHAeEJG9VUWryBZuBQ X8HN4mpB5AuG== MICROSCOPIC DESCRIPTION j6pgkCUxIHDxeZH9YgIoPK (test code = 3371) Jyh9uzf5TrnEIhvNUjDXqn gFHgvfHywm64fOE7qT34AN 8rEJDrZyH7CBQvnkP5Bpm8 ZTKrGQMybDNsK369l4fjz5 eomaWfbUT1dFqnACFyawqq SeH5NXgfQTVdicvfTYb5YU crONTkuXK6AGNmnAXlY8Dg FILbNA8nftv5ZTA7XGcpOJ WvVeN3DVNimNEwIKWmmHqu DIrpk596QTV1QiQsXQMtrj BpzJtjsC2jTeAqRZWLSAYh r2DfFWKzISRiktuoMBXzNE Bhcn0= [facility] [id number] 18:34:08Surgical Pathology Report Case: [id number] Authorizing Provider: Coby Polanco MD Collected: 07/19/2022 01:33 PM Ordering Location: [facility] Received: 07/19/2022 03:44 PM Pathologist: Carlos Keating MD Specimens: A) - Biopsy, Gastric, bx random r/o H-Pylori B) - Polyp, Gastric, polyp taken with standard forcep C) - Distal Esophagus, bx r/o EOE D) - Proximal Esophagus, bx r/o EOE A. STOMACH, RANDOM BIOPSIES: - ANTRAL MUCOSA WITH REACTIVE GASTROPATHY - OXYNTIC MUCOSA WITH NO SIGNIFICANT DIAGNOSTIC ABNORMALITY - NEGATIVE FOR HELICOBACTER PYLORI ORGANISMS BY H&E STAIN -NEGATIVE FOR INTESTINAL METAPLASIA, DYSPLASIA, MALIGNANCYB. STOMACH, POLYP, BIOPSY: - FUNDIC GLAND PO LYPC. ESOPHAGUS, DISTAL, BIOPSY: - REFLUX ESOPHAGITIS - NEGATIVE FOR EOSINOPHILIAD. ESOPHAGUS, PROXIMAL, BIOPSY: - REFLUX ESOPHAGITIS - NEGATIVE FOR EOSINOPHILIA Signing Pathologist Direct Phone Line: [phone] signed by Carlos Keating MD on 07/21/2022 at 6:34 [id number] hageal reflux disease, colon cancer screeningA. Biopsy, Gastric.Received in formalin labeled with the patient's name, medical record number and "gastric" are multiple infante soft tissue fragments measuring up to 0.3 cm in greatest dimension, which are submitted in toto in A1.B. Polyp, Gastric.Received in formalin labeled with the patient's name, medical record number and "gastric polyp" is a 0.2 x 0.2 x0.2 cm infante soft tissue fragment, which is [...] toto in D1.BRIJESH Landry, HT (ASCP)Performed.BASIC METABOLIC PANEL 2022-07-19 13:05:41 Test Item Value Reference Range Interpretation [...] high >=90 G2 Mildly decreased 60-89 G3a Mildl y to moderately 45-5 9 G3b Moderately to [...] not appl icable for dialysis patien ts Die Cast Supervisor ID - GERRY MPROTHROMBIN TIME/[id number] 12:44:32 Test Item Value Reference Range Interpretation Comments PROTIME (BEAKER) 15.6 seconds 11.9-14.2 H (test code = 759) INR (BEAKER) (test 1.32 See_Comment [Automat ed message] code = 370) The system [employer] generated this result transmitted ref erence range: <=5.90. The reference range was not used to int erpret this result as normal/abnormal . RECOMMENDED COUMADIN/WARFARIN INR THERAPY RANGESSTANDARD DOSE: 2.0 - 3.0 Includes: PROPHYLAXIS for venous thrombosis, systemic embolization; TREATMENT for venous thrombosis and/or pulmonary embolus.HIGH RISK: Target INR is 2.5-3.5 for patients with mechanical heart valves.POC-Glucose [id number] 12:33:07 Test Item Value Reference Range Interpretation Comments POC-Glucose Meter (test 193 mg/dL 70-110 H : TE STED AT [facility] code = 1538) [address] [facility], [address]: Die Cast Supervisor/Techni nuha ID = [id number] for Shellie King Lab Interpretation (test Abnormal code = 72931-0) [facility] [id number] 12:33:07 Test Item Value Reference Range Interpretation Comments POC-Glucose Meter (test 193 mg/dL 70-110 H : TE STED AT [facility] code = 1538) [address] [facility], 770 30: Die Cast Supervisor/Techni nuha ID = [id number] for Shellie King a Lab Interpretation (test Abnormal code = 27095-0) [facility] [id number] 12:33:07 Test Item Value Reference Range Interpretation Comments POC-GLUCOSE METER 193 mg/dL 70-110 H : TESTED A T [facility]SC 6720 (BEAKER) (test code [facility], = 1538) [address]: Die Cast Supervisor/Techni nuha ID = [id number] for Sonya Abad Potassium-Stat [id number] 12:29:14 Test Item Value Reference Range Interpretation Comments Potassium (test code = 2823-3) 5.6 meq/L 3.6-5.5 H Lab Interpretation (test code = Abnormal 02694-3) [facility] [id number] 12:29:14 Test Item Value Reference Range Interpretation Comments Potassium (test code = 2823-3) 5.6 meq/L 3.6-5.5 H Lab Interpretation (test code = Abnormal 19035-0) [facility]OT[facility] [id number] 12:29:14 Test Item Value Reference Range Interpretation Comments POTASSIUM (BEAKER) (test code = 5.6 meq/L 3.6-5.5 H 379) [id number] 12:28:40 Test Item Value Reference Range Interpretation Comments HEMOGLOBIN (BEAKER) (test code = 10.1 GM/DL 13.7-17.5 L 410) Die Cast Supervisor ID - 6000POCT-GLUCOSE [id number] 12:02:55 Test Item Value Reference Range Interpretation Comments POC-GLUCOSE METER 184 mg/dL 70-110 H : TESTED A T [facility]SC 6720 (BEAKER) (test code = [facility] [address]: Die Cast Supervisor/Techni nuha ID = [id number] for ELÍAS BLOOM (MANUAL DIFFERENTIAL)2022-01-26 10:20:54 Test Item Value Reference [...] (test code Normal = 762) HEMOGLOBIN AND [id number] 08:16:51 Test Item Value Reference Range Interpretation Comments HEMOGLOBIN (BEAKER) (test code = 8.7 GM/DL 13.7-17.5 L 410) HEMATOCRIT (BEAKER) (test code = 28.5 % 40.1-51.0 L 411) CBC WITH PLATELET COUNT + MANUAL [id number] 08:16:51 Test Item Value Reference Range Interpretation [...] = 413) RAD, CHEST, 1 VIEW, NON [id number] 07:40:00Reason for exam:->post deviceShould this be performed at the bedside?->Yes [facility] Paul : 1950 Sex: MFINAL REPORT TECHNIQUE: Frontal view of the chest. INDICATION: post device COMPARISON:Prior day. DISCUSSION:Limited evaluation due to portable technique. Lines and hardware: Stable.Heart and mediastinum: Stable.Lungs and pleura: Stable small to moderate left effusion/basilar consolidation. No pneumothorax. Trace right effusion. Mild vascular prominence.Soft tissues and bones: No acute abnormality. IMPRESSION:Stable exam Signed: Lexa Carvajal MDReport Verified Date/Time: 01/26/2022 07:40:01 Reading Location: [facility] Radiology Reading Room POCT-GLUCOSE [id number] 07:35:30 Test Item Value Reference Range Interpretation Comments POC-GLUCOSE METER 124 mg/dL 70-110 H : TESTED A T [facility] 6720 (BEAKER) (test code = [facility], 1538) [address]: Die Cast Supervisor/Techni nuha ID = [id number] for ELÍAS BLOOM BASIC METABOLIC [id number] 05:25:26 Test Item Value Reference Range Interpretation [...] S NOT APPLICABLE FOR DIALYSIS PATIEN TS. Die Cast Supervisor ID - GERRY TRIMBLED, CHEST, 1 VIEW, NON [id number] 03:24:00Reason for exam:->post deviceShould this be performed at the bedside?->Yes [facility] 1950 Sex: MFINAL REPORT [...] structures. No pneumothorax. Left subclavian stent. Signed: Ladarius Sanchez MDReport Verified Date/Time: 01/26/2022 03:24:25 POCT-GLUCOSE [id number] 22:00:57 Test Item Value Reference Range Interpretation Comments POC-GLUCOSE METER 102 mg/dL 70-110 : Notified RN/: (EMMA) (test code = TESTED AT [facility] 6720 1538) [facility], [address]: Die Cast Supervisor/Techni nuha ID = [id number] for KIAN KAUR POCT-GLUCOSE [id number] 16:18:42 Test Item Value Reference Range Interpretation Comments POC-GLUCOSE METER 117 mg/dL 70-110 H : TESTED A T [facility] 6720 (EMMA) (test code = [facility]PHONSO Caicedo [facility], 1538) [address]: Die Cast Supervisor/Techni nuha ID = [id number] for Erika Storm POCT-GLUCOSE [id number] 14:22:36 Test Item Value Reference Range Interpretation Comments POC-GLUCOSE METER 120 mg/dL 70-110 H : TESTED A T [facility] 6720 (BEAKER) (test code = ALPHONSO Caicedo [facility], 1538) [address]: Die Cast Supervisor/Techni nuha ID = [id number] for RUCHI Sanches PETER BASIC METABOLIC [id number] 12:15:22 Test Item Value Reference Range Interpretation [...] S NOT APPLICABLE FOR DIALYSIS PATIEN TS. Die Cast Supervisor ID - DBPROTHROMBIN TIME/[id number] 11:46:20 Test Item Value Reference Range Interpretation Comments PROTIME (BEAKER) 18.5 seconds 11.9-14.2 H (test code = 759) INR (BEAKER) (test 1.57 See_Comment [Automat ed message] code = 370) The system Triangulate generated this result transmitted ref erence range: <=5.90. The reference range was not used to int erpret this result as normal/abnormal . RECOMMENDED COUMADIN/WARFARIN INR THERAPY RANGESSTANDARD DOSE: 2.0 - 3.0 Includes: PROPHYLAXIS for venous thrombosis, systemic embolization; TREATMENT for venous thrombosis and/or pulmonary embolus.HIGH RISK: Target INR is 2.5-3.5 for patients with mechanical heart valves.POCT-GLUCOSE [id number] 17:48:28 Test Item Value Reference Range Interpretation Comments POC-GLUCOSE METER 92 mg/dL 70-110 : TESTED A T [facility] 6720 ([email or web address]) (test code = [facility] [employer] [facility], 1538) [address]: Die Cast Supervisor/Techni nuha ID = [id number] for Vinny Bar POCT-GLUCOSE [id number] 12:06:44 Test Item Value Reference Range Interpretation Comments POC-GLUCOSE METER 170 mg/dL 70-110 H : TESTED A T [facility] 6720 ([email or web address]) (test code = [facility], 1538) [address]: Die Cast Supervisor/Techni nuha ID = [id number] for AURELIA NATH POCT-GLUCOSE [id number] 10:31:17 Test Item Value Reference Range Interpretation Comments POC-GLUCOSE METER 183 mg/dL 70-110 H : TESTED A T [facility] 6720 ([email or web address]) (test code = [facility] [employer] [facility], 1538) [address]: Die Cast Supervisor/Techni nuha ID = [id number] for MAGNUS MALAGONAMERNANDClemente HEMOGLOBIN [id number] 09:56:41 Test Item Value Reference Range Interpretation Comments HEMOGLOBIN A1C 5.4 % See_Comment [Automated m essage] ELECTROPHORESIS ([email or web address]) The system which (test code = 3811) generated this result transmitted ref erence range: <=5.6%. The reference range was not used to int erpret this result as normal/abnormal . "The A1c is measured using a NGSP-certified method. HbA1c value equal to or greater than 6.5% as thediagnosis cutoff for diabetes. An HbA1c value of 5.7- 6.4% indicates increased risk for diabetes (prediabetes)."Die Cast Supervisor ID - ADMPOCT- GLUCOSE [id number] 07:37:27 Test Item Value Reference Range Interpretation Comments POC-GLUCOSE METER 91 mg/dL 70-110 : TESTED A T [facility] 6720 ([email or web address]) (test code = [facility] [employer] [facility], 1538) [address]: Die Cast Supervisor/Techni nuha ID = [id number] for ZAABELARDO LA, ERANDY CBC (HEMOGRAM ONLY)2022-01-21 06:44:48 Test Item Value [...] (test code = 413) TSH/FREE T4 IF [id number] 06:40:29 Test Item Value Reference Range Interpretation Comments THYROID STIMULATING HORMONE 2.427 uIU/mL 0.350-4.940 (BEAKER) (test code = 772) Die Cast Supervisor ID - GERRY OMPREHENSIVE METABOLIC [id number] 06:39:40 Test Item Value Reference Range Interpretation [...] S NOT APPLICABLE FOR DIALYSIS PATIEN TS. Die Cast Supervisor ID - GERRY MPROTHROMBIN TIME/[id number] 06:09:35 Test Item Value Reference Range Interpretation Comments PROTIME (BEAKER) 31.4 seconds 11.9-14.2 H (test code = 759) INR (BEAKER) (test 3.07 See_Comment [Automat ed message] code = 370) The system Triangulate generated this result transmitted ref erence range: <=5.90. The reference range was not used to int erpret this result as normal/abnormal . RECOMMENDED COUMADIN/WARFARIN INR THERAPY RANGESSTANDARD DOSE: 2.0 - 3.0 Includes: PROPHYLAXIS for venous thrombosis, systemic embolization; TREATMENT for venous thrombosis and/or pulmonary embolus.HIGH RISK: Target INR is 2.5-3.5 for patients with mechanical heart valves.POCT-GLUCOSE [id number] 21:26:30 Test Item Value Reference Range Interpretation Comments POC-GLUCOSE METER 167 mg/dL 70-110 H : TESTED A T [facility] 6720 (BEAKER) (test code = [facility] [place], 1538) [address]: Die Cast Supervisor/Techni nuha ID = [id number] for WISAM BAI POCT-GLUCOSE [id number] 18:20:34 Test Item Value Reference Range Interpretation Comments POC-GLUCOSE METER 133 mg/dL 70-110 H : TESTED A T [facility] 6720 (BEAKER) (test code = [facility] Caiced[facility], 1538) [address]: Die Cast Supervisor/Techni nuha ID = [id number] for BETTE TOLBERT CBC W/PLT COUNT & AUTO [id number] 14:32:12 Test Item Value Reference Range Interpretation [...] (test code = 2801) HEPATITIS B SURFACE [id number] 13:05:05 Test Item Value Reference Range Interpretation Comments HEPATITIS B SURFACE ANTIGEN (2) Nonreactive Nonreactive (BEAKER) (test code = 2585) Specimen is considered negative for HBsAg.HEMOGLOBIN [id number] 12:58:20 Test Item Value Reference Range Interpretation Comments HEMOGLOBIN A1C 5.4 % See_Comment [Automated m essage] ELECTROPHORESIS ([employer]) The system which (test code = 3811) generated this result transmitted ref erence range: <=5.6%. The reference range was not used to int erpret this result as normal/abnormal . "The A1c is measured using a NGSP-certified method. HbA1c value equal to or greater than 6.5% as thediagnosis cutoff for diabetes. An HbA1c value of 5.7- 6.4% indicates increased risk for diabetes (prediabetes)."Die Cast Supervisor ID - ADMHIGH SENSITIVITY TROPONIN [id number] 12:49:22 Test Item Value Reference Range Interpretation Comments HIGH SENSITIVITY 7 pg/ml See_Comment [Automated message] TROPONIN I (test code = The system which [id number]) generated this result transmitted ref erence range: <=35. Th e reference range was not used to interpr et this result as normal/abnormal . Die Cast Supervisor ID - BSThe PATIENT PLACEMENT COORDINATOR STAT High Sensitivity Troponin-I results should be used in conjunctionwith other diagnostic information such as ECG, clinical observations and information, and patient symptoms to aid in the diagnosis of MO.POCT-GLUCOSE [id number] 10:34:43 Test Item Value Reference Range Interpretation Comments POC-GLUCOSE METER 116 mg/dL 70-110 H : TESTED A T [facility] 6720 ([email or web address]) (test code = ALPHONSO [facility]PATR[facility] 1538) [address]: Die Cast Supervisor/Techni nuha ID = [id number] for AURELIA NATH 2D Echo W/Doppler(CW/PW/Color)2022-01-20 10:19:28Ejection FractionSLEH ECHO [facility] Echo W/Doppler(CW/PW/Color)2022-01-20 10:19:28Ejection FractionSLEH [facility] [id number] 08:15:45 Test Item Value Reference Range Interpretation [...] Borderline 130-159 High 160-189 Very High >=190 Die Cast Supervisor ID - BSBASIC METABOLIC [id number] 05:26:52 Test Item Value Reference Range Interpretation [...] S NOT APPLICABLE FOR DIALYSIS PATIEN TS. Die Cast Supervisor ID - PIAYA LPROTHROMBIN TIME/[id number] 04:50:31 Test Item Value Reference Range Interpretation Comments PROTIME (BEHÉCTOR) 33.8 seconds 11.9-14.2 H (test code = 759) INR (BEAKER) (test 3.37 See_Comment [Automat ed message] code = 370) The system Triangulate generated this result transmitted ref erence range: <=5.90. The reference range was not used to int erpret this result as normal/abnormal . RECOMMENDED COUMADIN/WARFARIN INR THERAPY RANGESSTANDARD DOSE: 2.0 - 3.0 Includes: PROPHYLAXIS for venous thrombosis, systemic embolization; TREATMENT for venous thrombosis and/or pulmonary embolus.HIGH RISK: Target INR is 2.5-3.5 for patients with mechanical heart valves.POCT-GLUCOSE [id number] 21:28:24 Test Item Value Reference Range Interpretation Comments POC-GLUCOSE METER 178 mg/dL 70-110 H : TESTED A T [facility] 6720 (EMMA) (test code = [facility]ON[facility] Caicedo [facility], 1538) [address]: Die Cast Supervisor/Techni nuha ID = [id number] for Melly (contract)Ciera [id number] 20:02:18 Test Item Value Reference Range Interpretation Comments POTASSIUM (EMMA) (test code = 3.7 meq/L 3.5-5.1 379) Die Cast Supervisor ID - BSPOCT-GLUCOSE [id number] 18:51:19 Test Item Value Reference Range Interpretation Comments POC-GLUCOSE METER 161 mg/dL 70-110 H : Notified RN/MD: TESTED (EMMA) (test code AT [facility] 6720 [facility] 1538[facility], [address]: Die Cast Supervisor/Techni nuha ID = [id number] for DESTINEE MCMANUS HIGH SENSITIVITY TROPONIN [id number] 15:49:27 Test Item Value Reference Range Interpretation Comments HIGH SENSITIVITY 9 pg/ml See_Comment [Automated message] TROPONIN I (test code = The system which [id number]) generated this result transmitted ref erence range: <=35. Th e reference range was not used to interpr et this result as normal/abnormal . Die Cast Supervisor ID - BSThe PATIENT PLACEMENT COORDINATOR STAT High Sensitivity Troponin-I results should be used in conjunctionwith other diagnostic information such as ECG, clinical observations and information, and patient symptoms to aid in the diagnosis of MO.BASIC METABOLIC [id number] 15:47:28 Test Item Value Reference Range Interpretation [...] S NOT APPLICABLE FOR DIALYSIS PATIEN TS. Die Cast Supervisor ID - BSPT/[id number] 15:34:01 Test Item Value Reference Range Interpretation [...] mechanical heart valves.CBC W/PLT COUNT & AUTO [id number] 15:25:01 Test Item Value Reference Range Interpretation [...] = 2801) RAD, CHEST, 1 VIEW, NON [id number] 11:42:00Reason for exam:->chest painShould this be performed at the bedside?->Yes [facility] : 1950 Sex: MFINAL REPORT [...] MDReport Verified Date/Time: 01/19/2022 11:42:07 Reading Location: [facility] Radiology Reading Room ECG/EKG [id number] 10:57:00 Test Item Value Reference Range Interpretation Comments LIS (test code = LIS) Alexandra Sylvester MD 01/25/2022 9:28 AMECG/EKG Interpretation Date/Time: 01/19/2022 10:57 AMPerformed by: Alexandra Sylvester MDAuthorized by: Alexandra Sylvester MD The ECG was interpreted by ED physician. This ECG was not compared with previous ECG(s).The ECG is interpreted as paced. Heart rate is 60 BPM.Abnormal conduction noted: left bundle branch block.[place] is left. Clinical Impression: abnormal ECGECG reviewed and does not meet STEMI criteria. Lab Interpretation Abnormal (test code = 17646-6) [facility] [id number] 10:57:00 Test Item Value Reference Range Interpretation Comments LIS (test code = LIS) Alexandra Sylvester MD 01/25/2022 9:28 AMECG/EKG Interpretation Date/Time: 01/19/2022 10:57 AMPerformed by: Alexandra Sylvester MDAuthorized by: Alexandra Sylvester MD The ECG was interpreted by ED physician. This ECG was not compared with previous ECG(s).The ECG is interpreted as paced. Heart rate is 60 BPM.Abnormal conduction noted: left bundle branch block.[place] is left. Clinical Impression: abnormal ECGECG reviewed and does not meet STEMI criteria. Lab Interpretation Abnormal (test code = 19435-6) [facility] [id number] 12:20:51 Test Item Value Reference Range Interpretation Comments POC-GLUCOSE METER 144 mg/dL 70-110 H : TESTED A T [facility] 6720 (BEAKER) (test code [facility], = 1538) [address]: Die Cast Supervisor/Techni nuha ID = [id number] for BASIM LUNDY POCT-GLUCOSE [id number] 10:19:44 Test Item Value Reference Range Interpretation Comments POC-GLUCOSE METER 130 mg/dL 70-110 H : TESTED A T [facility] 6720 (BEAKER) (test code = [facility] Caicedo [facility], 1538) [address]: Die Cast Supervisor/Techni nuha ID = [id number] for Khoi Maguire BASIC METABOLIC [id number] 09:21:46 Test Item Value Reference Range Interpretation [...] S NOT APPLICABLE FOR DIALYSIS PATIEN TS. Die Cast Supervisor ID - EMERSONPROTHROMBIN TIME/[id number] 08:51:30 Test Item Value Reference Range Interpretation Comments PROTIME (BEAKER) 19.2 seconds 11.9-14.2 H (test code = 759) INR (BEAKER) (test 1.64 See_Comment [Automat ed message] code = 370) The system Triangulate generated this result transmitted ref erence range: <=5.90. The reference range was not used to int erpret this result as normal/abnormal . RECOMMENDED COUMADIN/WARFARIN INR THERAPY RANGESSTANDARD DOSE: 2.0 - 3.0 Includes: PROPHYLAXIS for venous thrombosis, systemic embolization; TREATMENT for venous thrombosis and/or pulmonary embolus.HIGH RISK: Target INR is 2.5-3.5 for patients with mechanical heart valves.CBC W/PLT COUNT & AUTO [id number] 08:39:28 Test Item Value Reference Range Interpretation [...] PERCENT (BEAKER) (test code = 2801) POCT-GLUCOSE [id number] 07:29:31 Test Item Value Reference Range Interpretation Comments POC-GLUCOSE METER 111 mg/dL 70-110 H : TESTED A T [facility] 6720 (BEAKER) (test code [facility], = 1538) [address]: Die Cast Supervisor/Techni nuha ID = [id number] for OCHO O, ROSEBELLA POCT-GLUCOSE [id number] 21:54:10 Test Item Value Reference Range Interpretation Comments POC-GLUCOSE METER 159 mg/dL 70-110 H : Notified RN/MD: (BEAKER) (test code = TESTED AT [facility] 2747 4979) [facility], [address]: Die Cast Supervisor/Techni nuha ID = [id number] for DORIE REBOLLEDO HEPATITIS B SURFACE [id number] 21:30:30 Test Item Value Reference Range Interpretation Comments HEPATITIS B SURFACE ANTIGEN (2) Nonreactive Nonreactive (BEAKER) (test code = 2585) Specimen is considered negative for HBsAg.BASIC METABOLIC [id number] 21:16:23 Test Item Value Reference Range Interpretation [...] S NOT APPLICABLE FOR DIALYSIS PATIEN TS. Die Cast Supervisor ID - DBCBC (HEMOGRAM ONLY)2021-06-17 20:44:18 Test [...] 0-0 (BEAKER) (test code = 413) POCT-GLUCOSE [id number] 17:31:27 Test Item Value Reference Range Interpretation Comments POC-GLUCOSE METER 121 mg/dL 70-110 H : TESTED A T [facility] 6720 (BEAKER) (test code = [facility] [place], 1538) [address]: Die Cast Supervisor/Techni nuha ID = [id number] for CHRISTIANO DAMON (CELLAVISION MANUAL DIFF)2021-06-17 14:46:13 [...] CONCENTRATION Adequate (CELLAVISION)(BEAKER) (test code = 3438) Die Cast Supervisor ID - Yi Pepe comments: Slide comments:BASIC METABOLIC [id number] 11:59:33 Test Item Value Reference Range Interpretation [...] S NOT APPLICABLE FOR DIALYSIS PATIEN TS. Die Cast Supervisor ID - PIAYA LPROTHROMBIN TIME/[id number] 11:44:26 Test Item Value Reference Range Interpretation Comments PROTIME (BEAKER) 22.6 seconds 11.9-14.2 H (test code = 759) INR (BEAKER) (test 2.02 See_Comment [Automat ed message] code = 370) The system Triang[employer] generated this result transmitted ref erence range: [...] WBC 0-0 (BEAKER) (test code = 413) [id number] 17:33:00 Test Item Value Reference Range Interpretation Comments GLUBED (test code = 176 MG/DL 70-110 H Performe d by certified GLUBED) core winding operator at [facility] [id number] 12:22:00 Test Item Value Reference Range Interpretation Comments GLUBED (test code = 272 MG/DL 70-110 H Performe d by certified GLUBED) core winding operator at [facility] BASIC METABOLIC [id number] 08:28:00 Test Item Value Reference Range Interpretation [...] code = 9.5 mg/dL 8.0-10.5 N CA) [id number] 08:28:00 Test Item Value Reference Range Interpretation Comments MAGNESIUM (test code = MAG) 2.39 mg/dL 1.8-2.4 N CBC W/O [id number] 07:47:00 Test Item Value Reference Range Interpretation [...] fL 7.0-9.0 H = MPV) CBC W/O [id number] 07:38:00 Test Item Value Reference Range Interpretation [...] = PLT) 193 x10 3/uL 150-400 N [id number] 06:25:00 Test Item Value Reference Range Interpretation Comments GLUBED (test code = 138 MG/DL 70-110 H Performe d by certified GLUBED) core winding operator at [facility] TSH REFLEX TO [id number] 02:17:00 Test Item Value Reference Range Interpretation Comments TSH REFLEX TO FT4 (test code = 1.44 IU/mL 0.42-5.47 N TSHREFLEX) HGBA1C%2020-06-30 02:13:00 Test Item Value Reference Range Interpretation Comments HGBA1C% (test code = HGBA1C%) 5.9 %A1C 4.8-6.0 N CBC W/AUTO [id number] 00:49:00 Test Item Value Reference Range Interpretation [...] REQUIRED (test code NO = MDIFF) RBC [id number] 00:49:00 Test Item Value Reference Range Interpretation Comments POLYCHROMASIA (test code = POLC) SLIGHT POIKILOCYTOSIS (test code = POIK) SLIGHT ANISOCYTOSIS (test code = ANISO) 1+ MACROCYTOSIS (test code = MACR) 1+ TEAR DROP CELLS (test code = TEAR) FEW BASIC METABOLIC [id number] 00:25:00 Test Item Value Reference Range Interpretation [...] 9.3 mg/dL 8.0-10.5 N CA) CBC W/AUTO [id number] 00:16:00 Test Item Value Reference Range Interpretation [...] REQUIRED (test code NO = MDIFF) RBC [id number] 00:16:00 Test Item Value Reference Range Interpretation Comments ANISOCYTOSIS (test code = ANISO) CBC W/AUTO [id number] 00:13:00 Test Item Value Reference Range Interpretation [...] REQUIRED (test code NO = MDIFF) RBC [id number] 00:13:00 Test Item Value Reference Range Interpretation Comments ANISOCYTOSIS (test code = ANISO) AFB CULTURE + SMEAR (NON-SPUTUM)2019-12-09 13:35:00 Test Item Value Reference Range Interpretation Comments CULTURE (BEAKER) (test No acid-fast bacilli code = 1095) isolated in 42 days AFB SMEAR (BEAKER) No acid fast bacilli (test code = 994) seen FUNGUS CULTURE + [id number] 16:48:00 Test Item Value Reference Range Interpretation Comments CULTURE (BEAKER) (test No fungus isolated in code = 1095) 28 days FUNGUS SMEAR (BEAKER) No fungi seen (test code = 1406) RAD, CHEST, 1 VIEW, NON [id number] 11:53:00Reason for exam:->S/p CT surgeryShould this be performed at the bedside?->YesFINAL REPORT RAD, CHEST, 1 VIEW, NON DEPT INDICATION: S/p CT surgery COMPARISON: Prior day's exam FINDINGS: Portable frontal view of the chest. IMPRESSION: Support Lines: Stable. Lungs and pleura: Unchanged airspace and pleural opacities. No pneumothorax.Heart and mediastinum: Stable contours. Stable surgical changes.Additional findings: None. Signed: Dasia Britt MDRkareemort Verified Date/Time: 11/06/2019 11:53:03 Reading Location: [facility] Radiology Reading Room POCT-GLUCOSE [id number] 11:31:00 Test Item Value Reference Range Interpretation Comments POC-GLUCOSE METER 149 mg/dL 70-110 H : TESTED A T [facility] 6720 (BEAKER) (test code = [facility], 1538) [address]: Die Cast Supervisor/Techni nuha ID = [id number] for Alfredo Aguila CBC W/PLT COUNT & AUTO [id number] 10:58:00 Test Item Value Reference Range Interpretation [...] CONCENTRATION Adequate (CELLAVISION)(BEAKER) (test code = 3438) Die Cast Supervisor ID - chimereucheyaUser comments: Slide comments:BASIC METABOLIC [...] S NOT APPLICABLE FOR DIALYSIS PATIEN TS. Die Cast Supervisor ID - OZZY [id number] 05:30:00 Test Item Value Reference Range Interpretation Comments PHOSPHORUS (BEAKER) (test code = 3.3 mg/dL 2.3-4.7 604) Die Cast Supervisor ID - OZZY [id number] 05:30:00 Test Item Value Reference Range Interpretation Comments MAGNESIUM (BEAKER) (test code = 2.2 mg/dL 1.6-2.6 627) Die Cast Supervisor ID - OZZY WPOCT-GLUCOSE [id number] 22:07:00 Test Item Value Reference Range Interpretation Comments POC-GLUCOSE METER 142 mg/dL 70-110 H : TESTED A T [facility] 6720 ([email or web address]) (test code = [facility], 1538) [address]: Die Cast Supervisor/Techni nuha ID = [id number] for GO NZALES III, SHAYLA TROPONIN [id number] 17:33:00 Test Item Value Reference Range Interpretation [...] failure, acidosis, acute neurological disease, and persistent tachyarrhythmia.Die Cast Supervisor ID - BSPOCT-GLUCOSE METER 2019-11-05 15:21:00 Test Item Value Reference Range Interpretation Comments POC-GLUCOSE METER 126 mg/dL 70-110 H : TESTED A T [facility] 6720 ([employer]) (test code = [facility], 1538) [address]: Die Cast Supervisor/Techni nuha ID = [id number] for WINDY NO POCT-GLUCOSE [id number] 12:15:00 Test Item Value Reference Range Interpretation Comments POC-GLUCOSE METER 226 mg/dL 70-110 H : TESTED A T [facility] 6720 (BEAKER) (test code = [facility], 1538) [address]: Die Cast Supervisor/Techni nuha ID = [id number] for CHARANJIT MORGAN BASIC METABOLIC [id number] 08:09:00 Test Item Value Reference Range Interpretation [...] S NOT APPLICABLE FOR DIALYSIS PATIEN TS. Die Cast Supervisor ID - NIMESH CPOCT-GLUCOSE [id number] 08:07:00 Test Item Value Reference Range Interpretation Comments POC-GLUCOSE METER 170 mg/dL 70-110 H : TESTED A T [facility] 6720 (BEAKER) (test code = [facility], 1538) [address]: Die Cast Supervisor/Techni nuha ID = [id number] for CHARANJIT MORGAN [id number] 07:56:00 Test Item Value Reference Range Interpretation Comments PHOSPHORUS (BEAKER) (test code = 4.2 mg/dL 2.3-4.7 604) Die Cast Supervisor ID - NIMESH [id number] 07:56:00 Test Item Value Reference Range Interpretation Comments MAGNESIUM (BEAKER) (test code = 2.4 mg/dL 1.6-2.6 627) Die Cast Supervisor ID - NIMESH CCBC W/PLT COUNT & AUTO [id number] 05:48:00 Test Item Value Reference Range Interpretation [...] = 2801) RAD, CHEST, 1 VIEW, NON [id number] 05:37:00Reason for exam:->Vapotherm, bipapShould this be performed [...] stent. Signed: Ladarius Sanchez MDReport Verified Date/Time: 11/05/201905:37:42 POCT-GLUCOSE [id number] 21:21:00 Test Item Value Reference Range Interpretation Comments POC-GLUCOSE METER 175 mg/dL 70-110 H : TESTED A T [facility] 67[facility] ([email or web address]) (test code = [facility], 153) 09736: Die Cast Supervisor/Techni nuha ID = [id number] for Otilia Eaton POCT-GLUCOSE [id number] 18:00:00 Test Item Value Reference Range Interpretation Comments POC-GLUCOSE METER 170 mg/dL 70-110 H : TESTED A T [facility] 6720 ([employer]) (test code = [facility] [employer] [facility], 1538) 48889: Die Cast Supervisor/Techni nuha ID = [id number] for Alfredo Aguila ANAEROBIC [id number] 17:27:00 Test Item Value Reference Range Interpretation Comments CULTURE ([employer]) (test No anaerobes isolated code = 1095) POCT-GLUCOSE [id number] 11:46:00 Test Item Value Reference Range Interpretation Comments POC-GLUCOSE METER 183 mg/dL 70-110 H : TESTED A T [facility] 67[facility] ([email or web address]) (test code = [facility], 1538) 20170: Die Cast Supervisor/Techni nuha ID = [id number] for Alfredo Aguila CBC W/PLT COUNT & AUTO [id number] 08:59:00 Test Item Value Reference Range Interpretation [...] CONCENTRATION Adequate (CELLAVISION)(BEAKER) (test code = 3438) Die Cast Supervisor ID - Meghna OverholtUser comments: Slide comments:CBC W/PLT COUNT & AUTO [id number] 08:25:00 Test Item Value Reference Range Interpretation [...] CONCENTRATION Adequate (CELLAVISION)(BEAKER) (test code = 3438) Die Cast Supervisor ID - Jaren comments: Slide comments:POCT-GLUCOSE [id number] 08:02:00 Test Item Value Reference Range Interpretation Comments POC-GLUCOSE METER 108 mg/dL 70-110 : [facility] (BEAKER) (test code = [facility] [place], 1538) 13689: Die Cast Supervisor/Techni nuha ID = [id number] for TE SAMIRA STROUD BASIC METABOLIC [id number] 07:44:00 Test Item Value Reference Range Interpretation [...] S NOT APPLICABLE FOR DIALYSIS PATIEN TS. Die Cast Supervisor ID - GERRY MBASIC METABOLIC [id number] 07:44:00 Test Item Value Reference Range Interpretation [...] S NOT APPLICABLE FOR DIALYSIS PATIEN TS. Die Cast Supervisor ID - GERRY [id number] 07:42:00 Test Item Value Reference Range Interpretation Comments MAGNESIUM (BEAKER) (test code = 2.5 mg/dL 1.6-2.6 627) Die Cast Supervisor ID - GERRY MPOCT-GLUCOSE [id number] 21:32:00 Test Item Value Reference Range Interpretation Comments POC-GLUCOSE METER 196 mg/dL 70-110 H : TESTED A T [facility] 67[facility] (BEAKER) (test code = [facility], 1538) 30587: Die Cast Supervisor/Techni nuha ID = [id number] for NAIMA SOOT POCT-GLUCOSE [id number] 16:57:00 Test Item Value Reference Range Interpretation Comments POC-GLUCOSE METER 138 mg/dL 70-110 H : TESTED A T [facility] 6720 (BEAKER) (test code = [facility], 1538) 51145: Die Cast Supervisor/Techni nuha ID = [id number] for SHAI MEYERS POCT-GLUCOSE [id number] 12:53:00 Test Item Value Reference Range Interpretation Comments POC-GLUCOSE METER 229 mg/dL 70-110 H : TESTED A T [facility] 6720 (BEAKER) (test code = [facility], 1538) 38910: Die Cast Supervisor/Techni nuha ID = [id number] for VA LENNOX PRINGLE POCT-GLUCOSE [id number] 07:48:00 Test Item Value Reference Range Interpretation Comments POC-GLUCOSE METER 128 mg/dL 70-110 H : TESTED A T [facility] 6720 (BEAKER) (test code = [facility], 1538) 29558: Die Cast Supervisor/Techni nuha ID = [id number] for VA LDIVIEZ, LENNOX CBC W/PLT COUNT & AUTO [id number] 07:38:00 Test Item Value Reference Range Interpretation [...] CONCENTRATION Adequate (CELLAVISION)(BEAKER) (test code = 3438) Die Cast Supervisor ID - Rachael RodriguezJuve comments: Slide comments:RAD, CHEST, 1 VIEW, NON [id number] 06:47:00Reason for exam:->s/p CABGShould this be performed [...] Sanchez MDReport Verified Date/Time: 11/03/2019 06:47:42 IUM, [id number] 06:20:00 Test Item Value Reference Range Interpretation Comments CALCIUM IONIZED (BEAKER) (test 1.19 mmol/L 1.12-1.27 code = 698) PH, BLOOD (BEAKER) (test code = 7.34 1810) BASIC METABOLIC [id number] 04:59:00 Test Item Value Reference Range Interpretation [...] S NOT APPLICABLE FOR DIALYSIS PATIEN TS. Die Cast Supervisor ID - GERRY [id number] 04:57:00 Test Item Value Reference Range Interpretation Comments PHOSPHORUS (BEAKER) (test code = 3.1 mg/dL 2.3-4.7 604) Die Cast Supervisor ID - GERRY [id number] 04:57:00 Test Item Value Reference Range Interpretation Comments MAGNESIUM (BEAKER) (test code = 2.2 mg/dL 1.6-2.6 627) Die Cast Supervisor ID - GERRY MPOCT-GLUCOSE [id number] 22:34:00 Test Item Value Reference Range Interpretation Comments POC-GLUCOSE METER 202 mg/dL 70-110 H : TESTED A T [facility] 6720 (BEAKER) (test code = [facility] Caiced[facility], 1538) 15833: Die Cast Supervisor/Techni nuha ID = [id number] for ANJALI AGUILA BASIC METABOLIC [id number] 21:31:00 Test Item Value Reference Range Interpretation Comments SODIUM (BEAKER) 134 meq/L 136-145 L (test code = 381) POTASSIUM (BEAKER) 4.4 meq/L 3.5-5.1 (test code = 379) CHLORIDE (BEAKER) 100 meq/L 98-107 (test code = 382) CO2 (BEAKER) (test 23 meq/L -29 code = 355) BLOOD UREA NITROGEN 62 [...] S NOT APPLICABLE FOR DIALYSIS PATIEN TS. Die Cast Supervisor ID - [id number] 21:30:00 Test Item Value Reference Range Interpretation Comments PHOSPHORUS (BEAKER) (test code = 4.5 mg/dL 2.3-4.7 604) Die Cast Supervisor ID - [id number] 21:30:00 Test Item Value Reference Range Interpretation Comments MAGNESIUM (BEAKER) (test code = 2.6 mg/dL 1.6-2.6 627) Die Cast Supervisor ID - KENBETITOLOOD GAS, [id number] 21:10:00 Test Item Value Reference Range Interpretation [...] code = 1819) 36.0 % HEMOGLOBIN AND [id number] 21:03:00 Test Item Value Reference Range Interpretation Comments HEMOGLOBIN (BEAKER) (test code = 8.1 GM/DL 13.7-17.5 L 410) HEMATOCRIT (BEAKER) (test code = 25.9 % 40.1-51.0 L 411) Die Cast Supervisor ID - [id number], CHEST, 1 VIEW, NON [id number] 20:50:00Reason for exam:->CoughShould this be performed at the bedside?->YesFINAL REPORT RAD, CHEST, 1 VIEW, NON DEPT INDICATION: Cough COMPARISON: 16 hours prior FINDINGS: Portable frontal view of the chest. IMPRESSION: Support Lines: No significant change. Lungs and pleura: Airspace and pleural opacities are unchanged. No pneumothorax.Heart and mediastinum: Stable contours. Additional findings: None. Signed: Ladarius Sanchez MDReport Verified Date/Time: 11/02/2019 20:50:54 POCT-GLUCOSE [id number] 17:17:00 Test Item Value Reference Range Interpretation Comments POC-GLUCOSE METER 127 mg/dL 70-110 H : TESTED A T [facility] 6720 (BEAKER) (test code = [employer] [facility], 1538) 83340: Die Cast Supervisor/Techni nuha ID = [id number] for JONATHAN RODRIGEZ POCT-GLUCOSE [id number] 12:05:00 Test Item Value Reference Range Interpretation Comments POC-GLUCOSE METER 208 mg/dL 70-110 H : TESTED A T [facility] 6720 (BEAKER) (test code = [employer] [facility], 1538) 68611: Die Cast Supervisor/Techni nuha ID = [id number] for JONATHAN RODRIGEZ POCT-GLUCOSE [id number] 07:38:00 Test Item Value Reference Range Interpretation Comments POC-GLUCOSE METER 104 mg/dL 70-110 : TESTED A T [facility] 6720 (BEAKER) (test code = [employer] [facility], 1538) 23006: Die Cast Supervisor/Techni nuha ID = [id number] for JONATHAN RODRIGEZ RAD, CHEST, 1 VIEW, NON [id number] 06:31:00Reason for exam:->Chest congestionShould this be performed [...] MDReport Verified Date/Time: 11/02/2019 06:31:02 BASIC METABOLIC [id number] 03:20:00 Test Item Value Reference Range Interpretation [...] S NOT APPLICABLE FOR DIALYSIS PATIEN TS. Die Cast Supervisor ID - GERRY [id number] 03:15:00 Test Item Value Reference Range Interpretation Comments PHOSPHORUS (BEAKER) (test code = 3.9 mg/dL 2.3-4.7 604) Die Cast Supervisor ID - GERRY [id number] 03:15:00 Test Item Value Reference Range Interpretation Comments MAGNESIUM (BEAKER) (test code = 2.5 mg/dL 1.6-2.6 627) Die Cast Supervisor ID - GERRY MCBC W/PLT COUNT & AUTO [id number] 03:13:00 Test Item Value Reference Range Interpretation [...] 0-1 H PERCENT (BEAKER) (test code = 2807) CALCIUM, [id number] 02:49:00 Test Item Value Reference Range Interpretation Comments CALCIUM IONIZED (BEAKER) (test 1.16 mmol/L 1.12-1.27 code = 698) PH, BLOOD (BEAKER) (test code = 7.39 1810) POCT-GLUCOSE [id number] 23:12:00 Test Item Value Reference Range Interpretation Comments POC-GLUCOSE METER 171 mg/dL 70-110 H : TESTED A T [facility] 6720 (BEAKER) (test code = [facility], 1538) 87334: Die Cast Supervisor/Techni nuha ID = [id number] for ANJALI AGUILA POCT-GLUCOSE [id number] 17:23:00 Test Item Value Reference Range Interpretation Comments POC-GLUCOSE METER 96 mg/dL 70-110 : TESTED A T [facility] 6720 (BEAKER) (test code = [facility], 1538) 19579: Die Cast Supervisor/Techni nuha ID = [id number] for JONATHAN MACHADO BASIC METABOLIC [id number] 17:18:00 Test Item Value Reference Range Interpretation [...] S NOT APPLICABLE FOR DIALYSIS PATIEN TS. Die Cast Supervisor ID - [id number] 17:17:00 Test Item Value Reference Range Interpretation Comments PHOSPHORUS (BEAKER) (test code = 3.4 mg/dL 2.3-4.7 604) Die Cast Supervisor ID - [id number] 17:17:00 Test Item Value Reference Range Interpretation Comments MAGNESIUM (BEAKER) (test code = 2.4 mg/dL 1.6-2.6 627) Die Cast Supervisor ID - BSBASIC METABOLIC [id number] 13:42:00 Test Item Value Reference Range Interpretation [...] S NOT APPLICABLE FOR DIALYSIS PATIEN TS. Die Cast Supervisor ID - PIAYA [id number] 13:40:00 Test Item Value Reference Range Interpretation Comments PHOSPHORUS (BEAKER) (test code = 3.9 mg/dL 2.3-4.7 604) Die Cast Supervisor ID - PIAYA [id number] 13:40:00 Test Item Value Reference Range Interpretation Comments MAGNESIUM (BEAKER) (test code = 2.6 mg/dL 1.6-2.6 627) Die Cast Supervisor ID - PIAYA LCALCIUM, [id number] 12:49:00 Test Item Value Reference Range Interpretation Comments CALCIUM IONIZED (BEAKER) (test 1.13 mmol/L 1.12-1.27 code = 698) PH, BLOOD (BEAKER) (test code = 7.38 1810) POCT-GLUCOSE [id number] 12:14:00 Test Item Value Reference Range Interpretation Comments POC-GLUCOSE METER 147 mg/dL 70-110 H : TESTED A T [facility] 6720 (BEAKER) (test code = [facility]PH[facility]SO Caicedo [place], 1538) 69349: Die Cast Supervisor/Techni nuha ID = [id number] for JONATHAN RODRIGEZ SURGICALLY OBTAINED CULTURE + GRAM [id number] 10:40:00 Test Item Value Reference Range Interpretation Comments CULTURE (BEAKER) (test No growth code = 1095) GRAM STAIN RESULT <1+ White blood cells (BEAKER) (test code = seen 1123) GRAM STAIN RESULT No organisms seen (BEAKER) (test code = 94042) POCT-GLUCOSE [id number] 07:39:00 Test Item Value Reference Range Interpretation Comments POC-GLUCOSE METER 134 mg/dL 70-110 H : TESTED A T [facility] 6720 (BEAKER) (test code = [facility]iced[facility] [place], 1538) 35445: Die Cast Supervisor/Techni nuha ID = [id number] for JONATHAN RODRIGEZ BLOOD GAS, [id number] 05:24:00 Test Item Value Reference Range Interpretation [...] code = 1819) 40.0 % BASIC METABOLIC [id number] 05:23:00 Test Item Value Reference Range Interpretation [...] S NOT APPLICABLE FOR DIALYSIS PATIEN TS. Die Cast Supervisor ID - PIBLANE [id number] 05:18:00 Test Item Value Reference Range Interpretation Comments PHOSPHORUS (BEAKER) (test code = 4.8 mg/dL 2.3-4.7 H 604) Die Cast Supervisor ID - PIBLANE [id number] 05:18:00 Test Item Value Reference Range Interpretation Comments MAGNESIUM (BEAKER) (test code = 2.8 mg/dL 1.6-2.6 H 627) Die Cast Supervisor ID - LILY LCBC (HEMOGRAM ONLY)2019-11-01 04:59:00 [...] = 413) RAD, CHEST, 1 VIEW, NON [id number] 04:16:00Reason for exam:->post cardiac surgeryFINAL REPORT RAD, [...] collapse. Persistent small bilateral pleural effusions. No pneumothorax.Heartand mediastinum: Stable contours. Stable surgical changes.Additional findings: None. Signed: Sigrid Vieyraeport Verified Date/Time: 11/01/2019 04:16:36 BASIC METABOLIC PANEL [...] S NOT APPLICABLE FOR DIALYSIS PATIEN TS. Die Cast Supervisor ID - LILY [id number] 23:26:00 Test Item Value Reference Range Interpretation Comments POTASSIUM (BEAKER) (test code = 4.6 meq/L 3.5-5.1 379) Die Cast Supervisor ID - LILY [id number] 23:26:00 Test Item Value Reference Range Interpretation Comments MAGNESIUM (BEAKER) (test code = 2.7 mg/dL 1.6-2.6 H 627) Die Cast Supervisor ID - LILY [id number] 23:26:00 Test Item Value Reference Range Interpretation Comments PHOSPHORUS (BEAKER) (test code = 4.6 mg/dL 2.3-4.7 604) Die Cast Supervisor ID - LILY [id number] 23:26:00 Test Item Value Reference Range Interpretation Comments GLUCOSE RANDOM (BEAKER) (test code 144 mg/dL 70-105 H = 652) Die Cast Supervisor ID - LILY LHEMOGLOBIN AND [id number] 23:06:00 Test Item Value Reference Range Interpretation Comments HEMOGLOBIN (BEAKER) (test code = 7.2 GM/DL 13.7-17.5 L 410) HEMATOCRIT (BEAKER) (test code = 22.9 % 40.1-51.0 L 411) Die Cast Supervisor ID - 6000POCT-GLUCOSE [id number] 18:25:00 Test Item Value Reference Range Interpretation Comments POC-GLUCOSE METER 143 mg/dL 70-110 H : TESTED A T [facility] 6720 (BEAKER) (test code = [employer] [facility], 1538) 02494: Die Cast Supervisor/Techni nuha ID = [id number] for MALACHI NASH [id number] 16:52:00 Test Item Value Reference Range Interpretation Comments POTASSIUM (BEAKER) (test code = 4.8 meq/L 3.5-5.1 379) Die Cast Supervisor ID - ELEAZAR EPOCT-GLUCOSE [id number] 12:46:00 Test Item Value Reference Range Interpretation Comments POC-GLUCOSE METER 142 mg/dL 70-110 H : TESTED A T [facility] 6720 (BEAKER) (test code = [facility], 1538) 90068: Die Cast Supervisor/Techni nuha ID = [id number] for MALACHI NASH [id number] 10:51:00 Test Item Value Reference Range Interpretation Comments POTASSIUM (BEAKER) (test code = 4.7 meq/L 3.5-5.1 379) Die Cast Supervisor ID - SALONI [id number] 10:51:00 Test Item Value Reference Range Interpretation Comments PHOSPHORUS (BEAKER) (test code = 4.8 mg/dL 2.3-4.7 H 604) Die Cast Supervisor ID - SALONI [id number] 10:51:00 Test Item Value Reference Range Interpretation Comments MAGNESIUM (BEAKER) (test code = 2.6 mg/dL 1.6-2.6 627) Die Cast Supervisor ID - SALONI FPOCT-GLUCOSE [id number] 09:54:00 Test Item Value Reference Range Interpretation Comments POC-GLUCOSE METER 164 mg/dL 70-110 H : TESTED A T [facility] 6720 (BEAKER) (test code = [facility] [employer] [facility], 1538) 73648: Die Cast Supervisor/Techni nuha ID = [id number] for NIMESH SANCHEZ POCT-GLUCOSE [id number] 09:27:00 Test Item Value Reference Range Interpretation Comments POC-GLUCOSE METER 163 mg/dL 70-110 H : TESTED A T [facility] 6720 (BEAKER) (test code = [facility] [employer] [facility], 1538) 82934: Die Cast Supervisor/Techni nuha ID = [id number] for DAVID BENNETT RAD, CHEST, 1 VIEW, NON [id number] 07:53:00Reason for exam:->post cardiac surgeryFINAL REPORT RAD, CHEST, 1 VIEW, NON DEPT INDICATION: post cardiac surgery COMPARISON: Prior day's exam FINDINGS: Portable frontal view of the chest. IMPRESSION: Limited by underpenetration.Support Lines: Stable. Lungs and pleura: Unchanged interstitial and pleural opacities. No pneumothorax.Heart and mediastinum: Stable contours. Stable surgical changes.Additional findings: None. Signed: JR Gracia Robert MDReport Verified Date/Time: 10/31/2019 07:53:55 Reading Location: [facility] Radiology Reading Room 07:53 AMBASIC METABOLIC [id number] 04:29:00 Test Item Value Reference Range Interpretation [...] S NOT APPLICABLE FOR DIALYSIS PATIEN TS. Die Cast Supervisor ID - LILY [id number] 04:26:00 Test Item Value Reference Range Interpretation Comments PHOSPHORUS (BEAKER) (test code = 5.0 mg/dL 2.3-4.7 H 604) Die Cast Supervisor ID - FARIDEHBLANE [id number] 04:26:00 Test Item Value Reference Range Interpretation Comments MAGNESIUM (BEAKER) (test code = 2.5 mg/dL 1.6-2.6 627) Die Cast Supervisor ID - FARIDEHBLANE [id number] 04:01:00 Test Item Value Reference Range Interpretation [...] 2.5-3.5 for patients wiht mechanical heart valves.PROTHROMBIN TIME/[id number] 04:00:00 Test Item Value Reference Range Interpretation [...] 0-0 (test code = 413) BLOOD GAS, [id number] 03:46:00 Test Item Value Reference Range Interpretation [...] (BEAKER) (test code = 1819) 40.0 % [id number] 01:25:00 Test Item Value Reference Range Interpretation Comments POTASSIUM (BEAKER) (test code = 4.7 meq/L 3.5-5.1 379) Die Cast Supervisor ID - PIAYA [id number] 20:33:00 Test Item Value Reference Range Interpretation Comments POTASSIUM (BEAKER) (test code = 4.7 meq/L 3.5-5.1 379) Die Cast Supervisor ID - [id number] 20:33:00 Test Item Value Reference Range Interpretation Comments MAGNESIUM (BEAKER) (test code = 2.4 mg/dL 1.6-2.6 627) Die Cast Supervisor ID - [id number] 20:33:00 Test Item Value Reference Range Interpretation Comments PHOSPHORUS (BEAKER) (test code = 4.5 mg/dL 2.3-4.7 604) Die Cast Supervisor ID - BSPOCT-GLUCOSE [id number] 13:55:00 Test Item Value Reference Range Interpretation Comments POC-GLUCOSE METER 149 mg/dL 70-110 H : [facility] (BEAKER[facility] (test code = [place], 1538) 96192: Die Cast Supervisor/Techni nuha ID = [id number] for NIMESH SANCHEZ BLOOD GAS, [id number] 11:08:00 Test Item Value Reference Range Interpretation [...] (BEAKER) (test code = 1819) 40.0 % [id number] 10:23:00 Test Item Value Reference Range Interpretation Comments PHOSPHORUS (BEAKER) (test code = 4.9 mg/dL 2.3-4.7 H 604) Die Cast Supervisor ID - [id number] 10:23:00 Test Item Value Reference Range Interpretation Comments MAGNESIUM (BEAKER) (test code = 2.7 mg/dL 1.6-2.6 H 627) Die Cast Supervisor ID - [id number] 10:23:00 Test Item Value Reference Range Interpretation Comments POTASSIUM (BEAKER) (test code = 5.2 meq/L 3.5-5.1 H 379) Die Cast Supervisor ID - DBPOCT-GLUCOSE [id number] 10:07:00 Test Item Value Reference Range Interpretation Comments POC-GLUCOSE METER 118 mg/dL 70-110 H : TESTED A T [facility] 6720 (BEAKER) (test code = ALPHONSO Caicedo [place], 1538) 52569: Die Cast Supervisor/Techni nuha ID = [id number] for NIMESH SANCHEZ RAD, CHEST, 1 VIEW, NON [id number] 06:52:00Reason for exam:->post cardiac surgeryFINAL REPORT RAD, [...] findings: None. Signed: Yuridia Hand MDReport Verified Da te/Time: 10/30/2019 06:52:57 POCT-GLUCOSE [id number] 06:39:00 Test Item Value Reference Range Interpretation Comments POC-GLUCOSE METER 146 mg/dL 70-110 H : Notified RN/MD: (BEAKER) (test code = TESTED AT [facility] 8707 9737) [facility], [address]: Die Cast Supervisor/Techni nuha ID = [id number] for CECILIA CRISOSTOMO BASIC METABOLIC [id number] 05:20:00 Test Item Value Reference Range Interpretation [...] S NOT APPLICABLE FOR DIALYSIS PATIEN TS. Die Cast Supervisor ID - GERRY [id number] 05:08:00 Test Item Value Reference Range Interpretation Comments MAGNESIUM (BEAKER) 2.6 mg/dL 1.6-2.6 Specimen slightly (test code = 627) hemolyzed Die Cast Supervisor ID - GERRY [id number] 05:08:00 Test Item Value Reference Range Interpretation Comments PHOSPHORUS (BEAKER) 5.0 mg/dL 2.3-4.7 H Specimen slightly (test code = 604) hemolyzed Die Cast Supervisor JOHN GARRETT MCBC (HEMOGRAM ONLY)2019-10-30 05:00:00 Test Item Value [...] (BEAKER) (test code = 413) BLOOD GAS, [id number] 04:50:00 Test Item Value Reference Range Interpretation [...] -2.0-3.0 (test code = 387) PATIENT TEMPERATURE ([facility]) 38.3 C (test code = 1818) FIO2 ([facility]) (test code = 1819) 60.0 % POCT-GLUCOSE [id number] 03:25:00 Test Item Value Reference Range Interpretation Comments POC-GLUCOSE METER 136 mg/dL 70-110 H : Notified RN/MD: ([facility]) (test code = TESTED AT [place] [address]) [facility], [address]: Die Cast Supervisor/Techni nuha ID = [id number] for CECILIA CRISOSTOMO [id number] 01:23:00 Test Item Value Reference Range Interpretation Comments POTASSIUM ([facility]) (test code = 5.2 meq/L 3.5-5.1 H 379) Die Cast Supervisor ID - GERRY MPOCT-GLUCOSE [id number] 01:15:00 Test Item Value Reference Range Interpretation Comments POC-GLUCOSE METER 149 mg/dL 70-110 H : [facility] ([facility]) (test code = [facility], [facility]) [address]: Die Cast Supervisor/Techni nuha ID = [id number] for PA DARIOU, [place] POCT-GLUCOSE [id number] 00:01:00 Test Item Value Reference Range Interpretation Comments POC-GLUCOSE METER 143 mg/dL 70-110 H : [facility] ([facility]) (test code = [facility], 153) [address]: Die Cast Supervisor/Techni nuha ID = [id number] for PA ALANIBU, [place] POCT-GLUCOSE [id number] 21:28:00 Test Item Value Reference Range Interpretation Comments POC-GLUCOSE METER 157 mg/dL 70-110 H : Notified RN/MD: ([facility]) (test code = TESTED AT [place] [address] 1538) [facility], [address]: Die Cast Supervisor/Techni nuha ID = [id number] for DE CKER, CECILIA POCT-GLUCOSE [id number] 21:21:00 Test Item Value Reference Range Interpretation Comments POC-GLUCOSE METER 178 mg/dL 70-110 H : [facility] ([facility]) (test code = [facility], 1538) 179[address]: Die Cast Supervisor/Techni nuha ID = [id number] for GURMEET QUINTANA JR BLOOD GAS, [id number] 20:04:00 Test Item Value Reference Range Interpretation [...] code = 1819) 60.0 % LACTIC ACID, [id number] 20:04:00 Test Item Value Reference Range Interpretation Comments LACTATE BLOOD ARTERIAL (2) 2.2 mmol/L 0.5-2.2 (BEAKER) (test code = 2874) Die Cast Supervisor ID - DBCALCIUM, [id number] 19:58:00 Test Item Value Reference Range Interpretation Comments CALCIUM IONIZED (BEAKER) (test 1.19 mmol/L 1.12-1.27 code = 698) PH, BLOOD (BEAKER) (test code = 7.37 1810) GLUCOSE-STAT [id number] 19:58:00 Test Item Value Reference Range Interpretation Comments GLUCOSE RANDOM (BEAKER) (test code 168 mg/dL 70-110 H = 652) HGB/HCT (H&H) - STAT [id number] 19:58:00 Test Item Value Reference Range Interpretation Comments HEMOGLOBIN (BEAKER) (test code = 9.1 g/dL 13.0-16.8 L 410) HEMATOCRIT (BEAKER) (test code = 27.0 % 40.0-50.0 L 411) SODIUM NA-STAT [id number] 19:57:00 Test Item Value Reference Range Interpretation Comments SODIUM (BEAKER) (test code = 381) 139 meq/L 135-148 POTASSIUM-STAT [id number] 19:57:00 Test Item Value Reference Range Interpretation Comments POTASSIUM (BEAKER) (test code = 5.2 meq/L 3.6-5.5 379) [id number] 17:10:00 Test Item Value Reference Range Interpretation Comments POTASSIUM (BEAKER) (test code = 5.3 meq/L 3.5-5.1 H 379) Die Cast Supervisor ID - BSBLOOD GAS, [id number] 16:57:00 Test Item Value Reference Range Interpretation [...] (BEAKER) (test code = 1819) 40.0 % [id number] 12:24:00 Test Item Value Reference Range Interpretation Comments POTASSIUM (BEAKER) (test code = 4.9 meq/L 3.5-5.1 379) Die Cast Supervisor ID - ODETTE MBLOOD GAS, [id number] 11:53:00 Test Item Value Reference Range Interpretation [...] (test code = 1819) 40.0 % POCT-GLUCOSE [id number] 11:45:00 Test Item Value Reference Range Interpretation Comments POC-GLUCOSE METER 181 mg/dL 70-110 H : TESTED A T [facility] 6720 (BEAKER) (test code = [place], 1538) [address]: Die Cast Supervisor/Techni nuha ID = [id number] for GURMEET QUINTANA JR [id number] 08:48:00 Test Item Value Reference Range Interpretation Comments MAGNESIUM (BEAKER) 2.4 mg/dL 1.6-2.6 Specimen slightly (test code = 627) hemolyzed Die Cast Supervisor ID - GERRY [id number] 08:48:00 Test Item Value Reference Range Interpretation Comments PHOSPHORUS (BEAKER) 3.4 mg/dL 2.3-4.7 Specimen slightly (test code = 604) hemolyzed Die Cast Supervisor ID - GERRY [id number] 08:48:00 Test Item Value Reference Range Interpretation Comments POTASSIUM (BEAKER) 4.6 meq/L 3.5-5.1 Specimen slightly (test code = 379) hemolyzed Die Cast Supervisor ID - GERRY MRAD, CHEST, 1 VIEW, NON [id number] 07:02:00while patient is intubated or has chest [...] MDReport Verified Date/Time: 10/29/2019 07:02:49 Reading Location: [facility] Radiology Reading Room POCT- GLUCOSE [id number] 06:37:00 Test Item Value Reference Range Interpretation Comments POC-GLUCOSE METER 150 mg/dL 70-110 H : TESTED A T [place] [address] (BEAKER) (test code = ALPHONSO Caicedo [facility], 1538) [address]: Die Cast Supervisor/Techni nuha ID = [id number] for YASMIN DAVIS [id number] 06:37:00 Test Item Value Reference Range Interpretation Comments ACTIVATED CLOTTING TIME 131 sec : 74 -137 seconds, (BEAKER) (test code = Baseli ne: TESTED AT 441) [address], [address]: Die Cast Supervisor/Techni nuha ID = [id number] for GO RMAN, ANTHONY [id number] 06:36:00 Test Item Value Reference Range Interpretation Comments ACTIVATED CLOTTING TIME 499 sec : 74 -137 seconds, (BEAKER) (test code = Baseli ne: TESTED AT 441) [address], [address]: Die Cast Supervisor/Techni nuha ID = [id number] for GO RMAN, ANTHONY [id number] 06:36:00 Test Item Value Reference Range Interpretation Comments ACTIVATED CLOTTING TIME 516 sec : 74 -137 seconds, (BEAKER) (test code = Baseli ne: TESTED AT 441) [address], [address]: Die Cast Supervisor/Techni nuha ID = [id number] for GO RMAN, ANTHONY [id number] 06:36:00 Test Item Value Reference Range Interpretation Comments ACTIVATED CLOTTING TIME 621 sec : 74 -137 seconds, (BEAKER) (test code = Baseli ne: TESTED AT 441) [address], [facility] 30: Die Cast Supervisor/Techni nuha ID = [id number] for GO RMAN, ANTHONY [id number] 06:36:00 Test Item Value Reference Range Interpretation Comments ACTIVATED CLOTTING TIME 753 sec : 74 -137 seconds, (BEAKER) (test code = Baseli ne: TESTED AT 441) [address], [facility] 30: Die Cast Supervisor/Techni nuha ID = [id number] for GO RMAN, ANTHONY [id number] 06:36:00 Test Item Value Reference Range Interpretation Comments ACTIVATED CLOTTING TIME 505 sec : 74 -137 seconds, (BEAKER) (test code = Baseli ne: TESTED AT 441) [address] [place], [address]: Die Cast Supervisor/Techni nuha ID = [id number] for ANTHONY RIDLEY [id number] 06:36:00 Test Item Value Reference Range Interpretation Comments ACTIVATED CLOTTING TIME 516 sec : 74 -137 seconds, (BEAKER) (test code = [place] ne: TESTED AT 441) [facility] 6720 [facility], 770 30: Die Cast Supervisor/Techni nuha ID = [id number] for ANTHONY RIDLEY POCT-GLUCOSE [id number] 04:37:00 Test Item Value Reference Range Interpretation Comments POC-GLUCOSE METER 141 mg/dL 70-110 H : TESTED A T [facility] 6720 (BEAKER) (test code = [facility], 1538) [address]: Die Cast Supervisor/Techni nuha ID = [id number] for YASMIN DAVIS BASIC METABOLIC [id number] 03:19:00 Test Item Value Reference Range Interpretation [...] S NOT APPLICABLE FOR DIALYSIS PATIEN TS. Die Cast Supervisor ID - GERRY [id number] 03:13:00 Test Item Value Reference Range Interpretation [...] 2.5-3.5 for patients wiht mechanical heart valves.PROTHROMBIN [id number] 03:12:00 Test Item Value Reference Range Interpretation [...] is 2.5-3.5 for patients wiht mechanical heart valves.[id number] 03:09:00 Test Item Value Reference Range Interpretation Comments PHOSPHORUS (BEAKER) (test code = 2.4 mg/dL 2.3-4.7 604) Die Cast Supervisor ID - GERRY [id number] 03:09:00 Test Item Value Reference Range Interpretation Comments MAGNESIUM (BEAKER) (test code = 2.8 mg/dL 1.6-2.6 H 627) Die Cast Supervisor ID - GERRY MLACTIC ACID, [id number] 03:02:00 Test Item Value Reference Range Interpretation Comments LACTATE BLOOD ARTERIAL (2) 1.2 mmol/L 0.5-2.2 (BEAKER) (test code = 2874) Die Cast Supervisor ID - GERRY MCBC (HEMOGRAM ONLY)2019-10-29 02:53:00 [...] (BEAKER) (test code = 413) OXYGEN SATURATION, [id number] 02:52:00 Test Item Value Reference Range Interpretation Comments O2 SATURATION (MEASURED) (BEAKER) 78.1 % (test code = 1455) BLOOD GAS, [id number] 02:51:00 Test Item Value Reference Range Interpretation [...] (test code = 1819) 40.0 % GLUCOSE-STAT [id number] 02:51:00 Test Item Value Reference Range Interpretation Comments GLUCOSE RANDOM (BEAKER) (test code 158 mg/dL 70-110 H = 652) CALCIUM, [id number] 02:50:00 Test Item Value Reference Range Interpretation Comments CALCIUM IONIZED (BEAKER) (test 1.20 mmol/L 1.12-1.27 code = 698) PH, BLOOD (BEAKER) (test code = 7.46 1810) POCT-GLUCOSE [id number] 00:29:00 Test Item Value Reference Range Interpretation Comments POC-GLUCOSE METER 156 mg/dL 70-110 H : TESTED A T [facility] 6720 (BEAKER) (test code = [facility], 1538) [address]: Die Cast Supervisor/Techni nuha ID = [id number] for ON YASMIN JORDAN [id number] 22:46:00 Test Item Value Reference Range Interpretation Comments POTASSIUM (BEAKER) (test code = 4.8 meq/L 3.5-5.1 379) Die Cast Supervisor ID - [id number] 22:46:00 Test Item Value Reference Range Interpretation Comments MAGNESIUM (BEAKER) (test code = 3.3 mg/dL 1.6-2.6 H 627) Die Cast Supervisor ID - [id number] 22:46:00 Test Item Value Reference Range Interpretation Comments PHOSPHORUS (BEAKER) (test code = 1.8 mg/dL 2.3-4.7 L 604) Die Cast Supervisor ID - BSLACTIC ACID, [id number] 22:13:00 Test Item Value Reference Range Interpretation Comments LACTATE BLOOD ARTERIAL (2) 1.2 mmol/L 0.5-2.2 (BEAKER) (test code = 2874) Die Cast Supervisor ID - BSPOCT-GLUCOSE [id number] 22:03:00 Test Item Value Reference Range Interpretation Comments POC-GLUCOSE METER 141 mg/dL 70-110 H : TESTED A T [facility] 6720 (BEAKER) (test code = [facility], 1538) [address]: Die Cast Supervisor/Techni nuha ID = [id number] for ON NIMESH JORDANINE POCT-GLUCOSE [id number] 19:42:00 Test Item Value Reference Range Interpretation Comments POC-GLUCOSE METER 149 mg/dL 70-110 H : TESTED A T [facility] 6720 (BEAKER) (test code = ALPHONSO Caicedo [place], 1538) [address]: Die Cast Supervisor/Techni nuha ID = [id number] for CANDICE FOSTER POCT-GLUCOSE [id number] 18:32:00 Test Item Value Reference Range Interpretation Comments POC-GLUCOSE METER 147 mg/dL 70-110 H : TESTED A T [facility] 6720 (BEAKER) (test code = [place], 1538) [address]: Die Cast Supervisor/Techni nuha ID = [id number] for CANDICE FOSTER [id number] 18:08:00 Test Item Value Reference Range Interpretation Comments PHOSPHORUS (BEAKER) 3.4 mg/dL 2.3-4.7 Specimen slightly (test code = 604) hemolyzed Die Cast Supervisor ID - ELEAZAR GRIFFITHS, CHEST, 1 VIEW, NON [id number] 17:51:00Reason for exam:->ETTShould this be performed at [...] dual-chamber. There is a right IJ route [place] catheter with the tip in the region [...] Pan Verified Date/Time: 10/28/2019 17:51:08 Reading Location: [address] Consult Reading Room CBC W/PLT COUNT & AUTO [id number] 17:49:00 Test Item Value Reference Range Interpretation [...] (BEAKER) (test code = 2801) BASIC METABOLIC [id number] 17:38:00 Test Item Value Reference Range Interpretation [...] S NOT APPLICABLE FOR DIALYSIS PATIEN TS. Die Cast Supervisor ID - ELEAZAR EPROTHROMBIN [id number] 17:31:00 Test Item Value Reference Range Interpretation [...] is 2.5-3.5 for patients wiht mechanical heart valves.[id number] 17:31:00 Test Item Value Reference Range Interpretation Comments FIBRINOGEN LEVEL (BEAKER) (test 343 mg/dl 225-434 code = 658) [id number] 17:31:00 Test Item Value Reference Range Interpretation Comments PARTIAL THROMBOPLASTIN TIME 36.5 seconds 22.5-36.0 H (BEAKER) (test code = 760) [id number] 17:25:00 Test Item Value Reference Range Interpretation Comments MAGNESIUM (BEAKER) 3.4 mg/dL 1.6-2.6 H Specimen slightly (test code = 627) hemolyzed Die Cast Supervisor ID - ELEAZAR ELACTIC ACID, [id number] 17:20:00 Test Item Value Reference Range Interpretation Comments LACTATE BLOOD 3.0 mmol/L 0.5-2.2 H Specimen sligh tly ARTERIAL (2) (BEAKER) hemoly zed (test code = 2874) Die Cast Supervisor ID - ELEAZAR EPLATELET [id number] 17:11:00 Test Item Value Reference Range Interpretation Comments PLATELET COUNT (BEAKER) (test 119 K/CU MM 150-450 L code = 756) Die Cast Supervisor ID - [id number] GAS, [id number] 17:06:00 Test Item Value Reference Range Interpretation [...] code = 1819) 40.0 % SODIUM NA-STAT [id number] 17:06:00 Test Item Value Reference Range Interpretation Comments SODIUM (BEAKER) (test code = 381) 141 meq/L 135-148 POTASSIUM-STAT [id number] 17:06:00 Test Item Value Reference Range Interpretation Comments POTASSIUM (BEAKER) (test code = 5.1 meq/L 3.6-5.5 379) CALCIUM, [id number] 17:06:00 Test Item Value Reference Range Interpretation Comments CALCIUM IONIZED (BEAKER) (test 1.12 mmol/L 1.12-1.27 code = 698) PH, BLOOD (BEAKER) (test code = 7.44 1810) GLUCOSE-STAT [id number] 17:06:00 Test Item Value Reference Range Interpretation Comments GLUCOSE RANDOM (BEAKER) (test code 192 mg/dL 70-110 H = 652) HGB/HCT (H&H) - STAT [id number] 17:06:00 Test Item Value Reference Range Interpretation Comments HEMOGLOBIN (BEAKER) (test code = 8.4 g/dL 13.0-16.8 L 410) HEMATOCRIT (BEAKER) (test code = 25.0 % 40.0-50.0 L 411) OXYGEN SATURATION, [id number] 17:06:00 Test Item Value Reference Range Interpretation Comments O2 SATURATION (MEASURED) (BEAKER) 73.6 % (test code = 1455) CBC W/PLT COUNT & AUTO [id number] 16:50:00 Test Item Value Reference Range Interpretation [...] (BEAKER) (test code = 2801) SODIUM NA-STAT [id number] 15:41:00 Test Item Value Reference Range Interpretation Comments SODIUM (BEAKER) (test code = 381) 141 meq/L 135-148 POTASSIUM-STAT [id number] 15:41:00 Test Item Value Reference Range Interpretation Comments POTASSIUM (BEAKER) (test code = 4.7 meq/L 3.6-5.5 379) CALCIUM, [id number] 15:41:00 Test Item Value Reference Range Interpretation Comments CALCIUM IONIZED (BEAKER) (test 1.15 mmol/L 1.12-1.27 code = 698) PH, BLOOD (BEAKER) (test code = 7.40 1810) BLOOD GAS, [id number] 15:41:00 Test Item Value Reference Range Interpretation [...] (test code = 1819) 100.0 % GLUCOSE-STAT [id number] 15:41:00 Test Item Value Reference Range Interpretation Comments GLUCOSE RANDOM (BEAKER) (test code 216 mg/dL 70-110 H = 652) HGB/HCT (H&H) - STAT [id number] 15:41:00 Test Item Value Reference Range Interpretation Comments HEMOGLOBIN (BEAKER) (test code = 8.0 g/dL 13.0-16.8 L 410) HEMATOCRIT (BEAKER) (test code = 24.0 % 40.0-50.0 L 411) SODIUM NA-STAT [id number] 15:17:00 Test Item Value Reference Range Interpretation Comments SODIUM (BEAKER) (test code = 381) 140 meq/L 135-148 POTASSIUM-STAT [id number] 15:17:00 Test Item Value Reference Range Interpretation Comments POTASSIUM (BEAKER) (test code = 4.5 meq/L 3.6-5.5 379) CALCIUM, [id number] 15:17:00 Test Item Value Reference Range Interpretation Comments CALCIUM IONIZED (BEAKER) (test 1.01 mmol/L 1.12-1.27 L code = 698) PH, BLOOD (BEAKER) (test code = 7.38 1810) BLOOD GAS, [id number] 15:17:00 Test Item Value Reference Range Interpretation [...] 36.0 C (test code = 1818) GLUCOSE-STAT [id number] 15:17:00 Test Item Value Reference Range Interpretation Comments GLUCOSE RANDOM (BEAKER) (test code 226 mg/dL 70-110 H = 652) HGB/HCT (H&H) - STAT [id number] 15:17:00 Test Item Value Reference Range Interpretation Comments HEMOGLOBIN (BEAKER) (test code = 7.5 g/dL 13.0-16.8 L 410) HEMATOCRIT (BEAKER) (test code = 22.0 % 40.0-50.0 L 411) [id number] 15:01:00 Test Item Value Reference Range Interpretation Comments FIBRINOGEN LEVEL (BEAKER) (test 314 mg/dl 225-434 code = 658) [id number] 14:57:00 Test Item Value Reference Range Interpretation Comments PARTIAL THROMBOPLASTIN TIME 38.4 seconds 22.5-36.0 H (BEAKER) (test code = 760) PROTHROMBIN [id number] 14:56:00 Test Item Value Reference Range Interpretation [...] for patients wiht mechanical heart valves.BLOOD GAS, [id number] 14:47:00 Test Item Value Reference Range Interpretation [...] (test code = 1819) 100.0 % GLUCOSE-STAT [id number] 14:47:00 Test Item Value Reference Range Interpretation Comments GLUCOSE RANDOM (BEAKER) (test code 240 mg/dL 70-110 H = 652) HGB/HCT (H&H) - STAT [id number] 14:47:00 Test Item Value Reference Range Interpretation Comments HEMOGLOBIN (BEAKER) (test code = 7.1 g/dL 13.0-16.8 L 410) HEMATOCRIT (BEAKER) (test code = 21.0 % 40.0-50.0 L 411) PLATELET [id number] 14:46:00 Test Item Value Reference Range Interpretation Comments PLATELET COUNT (BEAKER) (test code 86 K/CU MM 150-450 L = 756) Die Cast Supervisor ID - [id number], [id number] 14:46:00 Test Item Value Reference Range Interpretation Comments CALCIUM IONIZED (BEAKER) (test 1.22 mmol/L 1.12-1.27 code = 698) PH, BLOOD (BEAKER) (test code = 7.24 1810) SODIUM NA-STAT [id number] 14:45:00 Test Item Value Reference Range Interpretation Comments SODIUM (BEAKER) (test code = 381) 138 meq/L 135-148 POTASSIUM-STAT [id number] 14:45:00 Test Item Value Reference Range Interpretation Comments POTASSIUM (BEAKER) (test code = 4.9 meq/L 3.6-5.5 379) CT, CTA, [id number] 14:28:00Addendum BeginsREPORT STATUS:A ADDENDUM: I agree with the previously described non vascular findings. Additional findings:None. Signed: Aziza Cary MDReport Verified Date/Time: 14:28:45 Reading Location: [place] [address] Angio Body Reading RoomAddendum EndsFINAL REPORT CT [...] artery and the left ablation artery is widelypatent. 2. Normal coronary artery origins. Diffuse calcification [...] 5. An addendum will be dictated regarding thenon-vascular findings by the Accounting Representative Radiologist. Signed: Alfonzo Almanzaeport Verified Date/Time: 10/28/2019 07:41:51 BLOOD GAS, [id number] 14:00:00 Test Item Value Reference Range Interpretation [...] (test code = 1819) 70.0 % POTASSIUM-STAT [id number] 14:00:00 Test Item Value Reference Range Interpretation Comments POTASSIUM (BEAKER) (test code = 5.7 meq/L 3.6-5.5 H 379) GLUCOSE-STAT [id number] 14:00:00 Test Item Value Reference Range Interpretation Comments GLUCOSE RANDOM (BEAKER) (test code 229 mg/dL 70-110 H = 652) HGB/HCT (H&H) - STAT [id number] 14:00:00 Test Item Value Reference Range Interpretation Comments HEMOGLOBIN (BEAKER) (test code = 7.1 g/dL 13.0-16.8 L 410) HEMATOCRIT (BEAKER) (test code = 21.0 % 40.0-50.0 L 411) SODIUM NA-STAT [id number] 13:59:00 Test Item Value Reference Range Interpretation Comments SODIUM (BEAKER) (test code = 381) 138 meq/L 135-148 SODIUM NA-STAT [id number] 13:33:00 Test Item Value Reference Range Interpretation Comments SODIUM (BEAKER) (test code = 381) 138 meq/L 135-148 POTASSIUM-STAT [id number] 13:33:00 Test Item Value Reference Range Interpretation Comments POTASSIUM (BEAKER) (test code = 5.4 meq/L 3.6-5.5 379) BLOOD GAS, [id number] 13:33:00 Test Item Value Reference Range Interpretation [...] (test code = 1819) 70.0 % GLUCOSE-STAT [id number] 13:33:00 Test Item Value Reference Range Interpretation Comments GLUCOSE RANDOM (BEAKER) (test code 202 mg/dL 70-110 H = 652) HGB/HCT (H&H) - STAT [id number] 13:33:00 Test Item Value Reference Range Interpretation Comments HEMOGLOBIN (BEAKER) (test code = 8.4 g/dL 13.0-16.8 L 410) HEMATOCRIT (BEAKER) (test code = 25.0 % 40.0-50.0 L 411) LACTIC ACID, [id number] 13:10:00 Test Item Value Reference Range Interpretation Comments LACTATE BLOOD ARTERIAL (2) 0.9 mmol/L 0.5-2.2 (BEAKER) (test code = 2874) Die Cast Supervisor ID - SALONI FSODIUM NA-STAT [id number] 13:00:00 Test Item Value Reference Range Interpretation Comments SODIUM (BEAKER) (test code = 381) 135 meq/L 135-148 POTASSIUM-STAT [id number] 13:00:00 Test Item Value Reference Range Interpretation Comments POTASSIUM (BEAKER) (test code = 5.1 meq/L 3.6-5.5 379) BLOOD GAS, [id number] 13:00:00 Test Item Value Reference Range Interpretation [...] (test code = 1819) 65.0 % GLUCOSE-STAT [id number] 13:00:00 Test Item Value Reference Range Interpretation Comments GLUCOSE RANDOM (BEAKER) (test code 211 mg/dL 70-110 H = 652) HGB/HCT (H&H) - STAT [id number] 13:00:00 Test Item Value Reference Range Interpretation Comments HEMOGLOBIN (BEAKER) (test code = 7.3 g/dL 13.0-16.8 L 410) HEMATOCRIT (BEAKER) (test code = 21.0 % 40.0-50.0 L 411) POTASSIUM-STAT [id number] 12:43:00 Test Item Value Reference Range Interpretation Comments POTASSIUM (BEAKER) (test code = 5.6 meq/L 3.6-5.5 H 379) SODIUM NA-STAT [id number] 12:43:00 Test Item Value Reference Range Interpretation Comments SODIUM (BEAKER) (test code = 381) 133 meq/L 135-148 L BLOOD GAS, [id number] 12:42:00 Test Item Value Reference Range Interpretation [...] (test code = 1819) 65.0 % GLUCOSE-STAT [id number] 12:42:00 Test Item Value Reference Range Interpretation Comments GLUCOSE RANDOM (BEAKER) (test code 201 mg/dL 70-110 H = 652) HGB/HCT (H&H) - STAT [id number] 12:42:00 Test Item Value Reference Range Interpretation Comments HEMOGLOBIN (BEAKER) (test code = 7.9 g/dL 13.0-16.8 L 410) HEMATOCRIT (BEAKER) (test code = 23.0 % 40.0-50.0 L 411) BLOOD GAS, [id number] 12:21:00 Test Item Value Reference Range Interpretation [...] (test code = 1819) 80.0 % GLUCOSE-STAT [id number] 12:21:00 Test Item Value Reference Range Interpretation Comments GLUCOSE RANDOM (BEAKER) (test code 197 mg/dL 70-110 H = 652) HGB/HCT (H&H) - STAT [id number] 12:21:00 Test Item Value Reference Range Interpretation Comments HEMOGLOBIN (BEAKER) (test code = 7.2 g/dL 13.0-16.8 L 410) HEMATOCRIT (BEAKER) (test code = 21.0 % 40.0-50.0 L 411) SODIUM NA-STAT [id number] 12:21:00 Test Item Value Reference Range Interpretation Comments SODIUM (BEAKER) (test code = 381) 134 meq/L 135-148 L POTASSIUM-STAT [id number] 12:10:00 Test Item Value Reference Range Interpretation Comments POTASSIUM (BEAKER) (test code = 4.6 meq/L 3.6-5.5 379) SODIUM NA-STAT [id number] 08:36:00 Test Item Value Reference Range Interpretation Comments SODIUM (BEAKER) (test code = 381) 135 meq/L 135-148 POTASSIUM-STAT [id number] 08:36:00 Test Item Value Reference Range Interpretation Comments POTASSIUM (BEAKER) (test code = 4.5 meq/L 3.6-5.5 379) BLOOD GAS, [id number] 08:36:00 Test Item Value Reference Range Interpretation [...] (test code = 1819) 87.0 % GLUCOSE-STAT [id number] 08:36:00 Test Item Value Reference Range Interpretation Comments GLUCOSE RANDOM (BEAKER) (test code 138 mg/dL 70-110 H = 652) HGB/HCT (H&H) - STAT [id number] 08:36:00 Test Item Value Reference Range Interpretation Comments HEMOGLOBIN (BEAKER) (test code = 8.9 g/dL 13.0-16.8 L 410) HEMATOCRIT (BEAKER) (test code = 26.0 % 40.0-50.0 L 411) [id number] 07:05:00 Test Item Value Reference Range Interpretation [...] S NOT APPLICABLE FOR DIALYSIS PATIEN TS. Die Cast Supervisor ID - OZZY [id number] 05:23:00 Test Item Value Reference Range Interpretation Comments MAGNESIUM (BEAKER) (test code = 2.8 mg/dL 1.6-2.6 H 627) Die Cast Supervisor ID - OZZY WPROTHROMBIN TIME/[id number] 05:03:00 Test Item Value Reference Range Interpretation [...] mechanical heart valves.CBC W/PLT COUNT & AUTO [id number] 04:41:00 Test Item Value Reference Range Interpretation [...] PERCENT (BEAKER) (test code = 2801) POCT-GLUCOSE [id number] 22:22:00 Test Item Value Reference Range Interpretation Comments POC-GLUCOSE METER 153 mg/dL 70-110 H : TESTED A T [facility] 6720 (BEAKER) (test code = [place]PH[place]SO [place], 1538) [address]: Die Cast Supervisor/Techni nuha ID = [id number] for DO [place] ANJALI POCT-GLUCOSE [id number] 17:17:00 Test Item Value Reference Range Interpretation Comments POC-GLUCOSE METER 198 mg/dL 70-110 H : TESTED A T [facility] 6720 (BEAKER) (test code = [facility], 1538) [id number]: Die Cast Supervisor/Techni nuha ID = [id number] for SAIDA MENDIETA POCT-GLUCOSE [id number] 12:44:00 Test Item Value Reference Range Interpretation Comments POC-GLUCOSE METER 185 mg/dL 70-110 H : TESTED A T [facility] 6720 (BEAKER) (test code = [facility], 1538) [address]: Die Cast Supervisor/Techni nuha ID = [id number] for NM LENNOX PRINGLE [id number] 09:04:00 Test Item Value Reference Range Interpretation Comments PARTIAL THROMBOPLASTIN TIME 88.4 seconds 22.5-36.0 H (BEAKER) (test code = 760) POCT-GLUCOSE [id number] 07:56:00 Test Item Value Reference Range Interpretation Comments POC-GLUCOSE METER 154 mg/dL 70-110 H : TESTED A T [facility] 6720 (BEAKER) (test code = [facility], 1538) [address]: Die Cast Supervisor/Techni nuha ID = [id number] for LENNOX MARTINEZ BASIC METABOLIC [id number] 04:36:00 Test Item Value Reference Range Interpretation [...] S NOT APPLICABLE FOR DIALYSIS PATIEN TS. Die Cast Supervisor ID - DBCBC (HEMOGRAM ONLY)2019-10-27 04:03:00 Test [...] WBC 0-0 (BEAKER) (test code = 413) [id number] 02:06:00 Test Item Value Reference Range Interpretation Comments PARTIAL THROMBOPLASTIN TIME 65.3 seconds 22.5-36.0 H (BEAKER) (test code = 760) POCT-GLUCOSE [id number] 22:33:00 Test Item Value Reference Range Interpretation Comments POC-GLUCOSE METER 164 mg/dL 70-110 H : TESTED A T [facility] 6720 (BEAKER) (test code = [place], 1538) [address]: Die Cast Supervisor/Techni nuha ID = [id number] for ANJALI AGUILA [id number] 18:06:00 Test Item Value Reference Range Interpretation Comments PARTIAL THROMBOPLASTIN TIME 80.0 seconds 22.5-36.0 H (BEAKER) (test code = 760) [id number] 17:13:00 Test Item Value Reference Range Interpretation Comments PARTIAL THROMBOPLASTIN TIME 186.3 seconds 22.5-36.0 HH (BEAKER) (test code = 760) POCT-GLUCOSE [id number] 17:06:00 Test Item Value Reference Range Interpretation Comments POC-GLUCOSE METER 175 mg/dL 70-110 H : TESTED A T [facility] 6720 (BEAKER) (test code = [facility], 1538) 25439: Die Cast Supervisor/Techni nuha ID = [id number] for JONATHAN RODRIGEZ POCT-GLUCOSE [id number] 12:28:00 Test Item Value Reference Range Interpretation Comments POC-GLUCOSE METER 136 mg/dL 70-110 H : TESTED A T [facility] 6720 (BEAKER) (test code = [facility], 1538) 30833: Die Cast Supervisor/Techni nuha ID = [id number] for JONATHAN RODRIGEZ [id number] 10:47:00 Test Item Value Reference Range Interpretation Comments PARTIAL THROMBOPLASTIN TIME 102.9 seconds 22.5-36.0 H (BEAKER) (test code = 760) POCT-GLUCOSE [id number] 08:02:00 Test Item Value Reference Range Interpretation Comments POC-GLUCOSE METER 133 mg/dL 70-110 H : TESTED A T [facility] 6720 (BEAKER) (test code = [facility], 1538) 89237: Die Cast Supervisor/Techni nuha ID = [id number] for JONATHAN RODRIGEZ BASIC METABOLIC [id number] 04:18:00 Test Item Value Reference Range Interpretation [...] S NOT APPLICABLE FOR DIALYSIS PATIEN TS. Die Cast Supervisor ID - GERRY [id number] 03:54:00 Test Item Value Reference Range Interpretation [...] WBC 0-0 (BEAKER) (test code = 413) [id number] 22:02:00 Test Item Value Reference Range Interpretation Comments PARTIAL THROMBOPLASTIN TIME 64.5 seconds 22.5-36.0 H (BEAKER) (test code = 760) POCT-GLUCOSE [id number] 21:44:00 Test Item Value Reference Range Interpretation Comments POC-GLUCOSE METER 129 mg/dL 70-110 H : TESTED A T [facility] 6720 (BEAKER) (test code = [facility], 1538) [address]: Die Cast Supervisor/Techni nuha ID = [id number] for CH U, LI [id number] 20:43:00 Test Item Value Reference Range Interpretation Comments PARTIAL THROMBOPLASTIN TIME 50.7 seconds 22.5-36.0 H (BEAKER) (test code = 760) [id number] 17:02:00 Test Item Value Reference Range Interpretation Comments PARTIAL THROMBOPLASTIN TIME 192.2 seconds 22.5-36.0 HH (BEAKER) (test code = 760) POCT-GLUCOSE [id number] 16:58:00 Test Item Value Reference Range Interpretation Comments POC-GLUCOSE METER 131 mg/dL 70-110 H : TESTED A T [facility] 6720 (BEAKER) (test code = [facility], 1538) 49742: Die Cast Supervisor/Techni nuha ID = [id number] for AP ARECE, ISAIAS POCT-GLUCOSE [id number] 14:57:00 Test Item Value Reference Range Interpretation Comments POC-GLUCOSE METER 170 mg/dL 70-110 H : TESTED A T [facility] 6720 (BEAKER) (test code = [facility], 1538) 50880: Die Cast Supervisor/Techni nuha ID = [id number] for CO RTEZ, CHULA POCT-GLUCOSE [id number] 10:15:00 Test Item Value Reference Range Interpretation Comments POC-GLUCOSE METER 170 mg/dL 70-110 H : TESTED A T [facility] 6720 (BEAKER) (test code = [facility], 1538) 70274: Die Cast Supervisor/Techni nuha ID = [id number] for CO RTEZ, CHULA BASIC METABOLIC [id number] 06:17:00 Test Item Value Reference Range Interpretation [...] S NOT APPLICABLE FOR DIALYSIS PATIEN TS. Die Cast Supervisor ID - [id number] 06:08:00 Test Item Value Reference Range Interpretation [...] WBC 0-0 (BEAKER) (test code = 413) [id number] 01:00:00 Test Item Value Reference Range Interpretation Comments PARTIAL THROMBOPLASTIN TIME 76.0 seconds 22.5-36.0 H ([facility]) (test code = 760) POCT-GLUCOSE [id number] 23:53:00 Test Item Value Reference Range Interpretation Comments POC-GLUCOSE METER 166 mg/dL 70-110 H : Notified RN/MD: ([facility]) (test code = TESTED AT [place] [address] 1538) [facility], [address]: Die Cast Supervisor/Techni nuha ID = [id number] for KIAN KAUR POCT-GLUCOSE [id number] 19:04:00 Test Item Value Reference Range Interpretation Comments POC-GLUCOSE METER 191 mg/dL 70-110 H : TESTED A T [place] [address] ([facility]) (test code = [facility], 1538) 83261: Die Cast Supervisor/Techni nuha ID = [id number] for ELÍAS BLOOM [id number] 18:02:00 Test Item Value Reference Range Interpretation Comments PARTIAL THROMBOPLASTIN TIME 62.3 seconds 22.5-36.0 H ([facility]) (test code = 760) [id number] 12:39:00 Test Item Value Reference Range Interpretation Comments PARTIAL THROMBOPLASTIN TIME 47.8 seconds 22.5-36.0 H ([facility]) (test code = 760) Prior to initiating heparinPOCT-GLUCOSE [id number] 11:03:00 Test Item Value Reference Range Interpretation Comments POC-GLUCOSE METER 143 mg/dL 70-110 H : TESTED A T [place] [address] ([facility]) (test code = [facility], 1538) 09342: Die Cast Supervisor/Techni nuha ID = [id number] for Vinny Domínguez BASIC METABOLIC [id number] 07:38:00 Test Item Value Reference Range Interpretation [...] S NOT APPLICABLE FOR DIALYSIS PATIEN TS. Die Cast Supervisor ID - GALAPHEPATITIS B SURFACE [id number] 07:11:00 Test Item Value Reference Range Interpretation Comments HEPATITIS B SURFACE ANTIGEN (2) Nonreactive Nonreactive (BEAKER) (test code = 2585) Die Cast Supervisor ID - [id number] 06:42:00 Test Item Value Reference Range Interpretation [...] 150-450 code = 756) MEAN PLATELET VOLUME ([facility]) 11.8 fL 9.4-12.4 (test code = 754) NUCLEATED RED BLOOD CELLS 0 /100 WBC 0-0 ([facility]) (test code = 413) POCT-GLUCOSE [id number] 21:49:00 Test Item Value Reference Range Interpretation Comments POC-GLUCOSE METER 136 mg/dL 70-110 H : Notified RN/MD: ([facility]) (test code = TESTED AT [place] [address] 1538) [facility], [address]: Die Cast Supervisor/Techni nuha ID = [id number] for SA NCHEZ, KIAN POCT-GLUCOSE [id number] 19:27:00 Test Item Value Reference Range Interpretation Comments POC-GLUCOSE METER 114 mg/dL 70-110 H : Notified RN/MD: ([facility]) (test code = TESTED AT [place] [address] 1538) [facility], [address]: Die Cast Supervisor/Techni nuha ID = [id number] for SA NCHEZ, KIAN [id number] 16:15:00 Test Item Value Reference Range Interpretation Comments ACTIVATED CLOTTING TIME 241 sec : 74 -137 seconds, ([facility]) (test code = Baseli ne: TESTED AT 441) [address], [address]: Die Cast Supervisor/Techni nuha ID = [id number] for IDLORETA, TALHA [id number] 15:48:00 Test Item Value Reference Range Interpretation Comments ACTIVATED CLOTTING TIME 147 sec : 74 -137 seconds, ([facility]) (test code = Baseli ne: TESTED AT 441) [address], [address]: Die Cast Supervisor/Techni nuha ID = [id number] for IDRY, TALHA POCT-GLUCOSE [id number] 12:05:00 Test Item Value Reference Range Interpretation Comments POC-GLUCOSE METER 154 mg/dL 70-110 H : TESTED A T [place] [address] ([facility]) (test code = [facility], 153) 8[address]: Die Cast Supervisor/Techni nuha ID = [id number] for Do Alfredo london POCT-GLUCOSE [id number] 07:41:00 Test Item Value Reference Range Interpretation Comments POC-GLUCOSE METER 144 mg/dL 70-110 H : TESTED A T [facility] 6720 (BEAKER) (test code = [place], 1538) [address]: Die Cast Supervisor/Techni nuha ID = [id number] for Alfredo Aguila TROPONIN [id number] 07:06:00 Test Item Value Reference Range Interpretation [...] failure, acidosis, acute neurological disease, and persistent tachyarrhythmia.Die Cast Supervisor ID - GERRY [id number] 06:37:00 Test Item Value Reference Range Interpretation [...] 0-0 (BEAKER) (test code = 413) TROPONIN [id number] 00:49:00 Test Item Value Reference Range Interpretation [...] failure, acidosis, acute neurological disease, and persistent tachyarrhythmia.Die Cast Supervisor ID - [id number] 22:52:00 Test Item Value Reference Range Interpretation Comments PARTIAL THROMBOPLASTIN TIME 33.8 seconds 22.5-36.0 (BEAKER) (test code = 760) Prior to initiating heparinPLATELET [id number] 22:44:00 Test Item Value Reference Range Interpretation Comments PLATELET COUNT (BEAKER) (test 152 K/CU MM 150-450 code = 756) Die Cast Supervisor ID - [id number] 20:56:00 Test Item Value Reference Range Interpretation [...] failure, acidosis, acute neurological disease, and persistent tachyarrhythmia.Die Cast Supervisor ID - DBPOCT-GLUCOSE METER 2019-10-22 20:26:00 Test Item Value Reference Range Interpretation Comments POC-GLUCOSE METER 129 mg/dL 70-110 H : TESTED A T [facility] 6720 ([facility]) (test code = [place], 1538) [address]: Die Cast Supervisor/Techni nuha ID = [id number] for MINAL YOUSIF TROPONIN [id number] 13:12:00 Test Item Value Reference Range Interpretation [...] failure, acidosis, acute neurological disease, and persistent tachyarrhythmia.Die Cast Supervisor ID - SALONI FB-TYPE NATRIURETIC FACTOR (BNP)2019-10-22 13:06:00 Test Item Value Reference Range Interpretation Comments B-TYPE NATRIURETIC PEPTIDE (BEAKER) 106 pg/mL 0-100 H (test code = 700) Die Cast Supervisor ID - SALONI BERNALASIC METABOLIC [id number] 13:05:00 Test Item Value Reference Range Interpretation [...] S NOT APPLICABLE FOR DIALYSIS PATIEN TS. Die Cast Supervisor ID Tacos SALONI [id number] 13:02:00 Test Item Value Reference Range Interpretation Comments MAGNESIUM (BEAKER) (test code = 2.8 mg/dL 1.6-2.6 H 627) Die Cast Supervisor ID Tacos GUALLPA FHEPATIC FUNCTION [id number] 13:02:00 Test Item Value Reference Range Interpretation [...] (test code = 28 U/L 6-55 347) Die Cast Supervisor ID Tacos GUALLPA [id number] 13:02:00 Test Item Value Reference Range Interpretation Comments LIPASE (BEAKER) (test code = 749) 49 U/L 8-78 Die Cast Supervisor ID Tacos GUALLPA FCBC W/PLT COUNT & AUTO [id number] 12:45:00 Test Item Value Reference Range Interpretation [...] = 2801) RAD, CHEST, 1 VIEW, NON [id number] 12:23:00Reason for exam:->CHEST PAIN FINAL REPORT Chest, one view History: chest pain Comparison: 04/30/2019 Findings:Clear lungs. Normal size heart. No pleural effusion or pneumothorax. Cardiac pacer in place. Impression:No acute findings in the chest Signed: Ivan Milan MDReport Verified Date/Time: 10/22/2019 12: 23:16 Reading Location: [facility] Radiology Reading Room POCT-GLUCOSE [id number] 11:51:00 Test Item Value Reference Range Interpretation Comments POC-GLUCOSE METER 279 mg/dL 70-110 H TESTED AT [facility] 1673 (BEAKER) (test code = [place] 5408) [address] CBC W/PLT COUNT & AUTO [id number] 11:50:00 Test Item Value Reference Range Interpretation [...] (BEAKER) (test code = 2801) BASIC METABOLIC [id number] 10:56:00 Test Item Value Reference Range Interpretation [...] PATIEN TS. RAD, CHEST, 1 VIEW, NON [id number] 08:58:00Reason for exam:->Post device placementShould this be [...] Britt Verified Date/Time: 04/30/2019 08:58:17 Reading Location: [facility] Radiology Reading Room POCT-GLUCOSE [id number] 08:16:00 Test Item Value Reference Range Interpretation Comments POC-GLUCOSE METER 342 mg/dL 70-110 H TESTED AT [place] [address] ([facility]) (test code = ALPHONSO Caicedo [facility] 1538) [address] RAD, CHEST, 1 VIEW, NON [id number] 06:14:00Reason for exam:->post device placementShould this be [...] pleural opacities. No pneumothorax.Heart and mediastinum: Stable contours.A dditional findings: Vascular stent over the left axilla. Signed: Sigrid Vieyra Verified Date/Time: 04/30/2019 06:14:19 Reading Location: [address] Reading Room POCT-GLUCOSE [id number] 01:09:00 Test Item Value Reference Range Interpretation Comments POC-GLUCOSE METER 187 mg/dL 70-110 H TESTED AT [place] [address] ([facility]) (test code = ALPHONSO Caicedo [facility] 1538) [address] POCT-GLUCOSE [id number] 20:12:00 Test Item Value Reference Range Interpretation Comments POC-GLUCOSE METER 175 mg/dL 70-110 H TESTED AT [place] [address] ([facility]) (test code = ALPHONSO Caicedo [facility] 1538) [address] POCT-GLUCOSE [id number] 17:34:00 Test Item Value Reference Range Interpretation Comments POC-GLUCOSE METER 88 mg/dL 70-110 TESTED AT [place] [address] ([facility]) [facility] [address] 1538) POCT-GLUCOSE [id number] 13:28:00 Test Item Value Reference Range Interpretation Comments POC-GLUCOSE METER 131 mg/dL 70-110 H TESTED AT [place] [address] ([facility]) (test code = ALPHONSO Caicedo [facility] 1538) [address] RHEUMATOID FACTOR AB, REFLEX TO [id number] 11:35:00 Test Item Value Reference Range Interpretation Comments RHEUMATOID FACTOR (BEAKER) (test Positive code = 573) RHEUMATOID FACTOR [id number] 11:35:00 Test Item Value Reference Range Interpretation [...] PATIEN TS. CBC W/PLT COUNT & AUTO [id number] 09:22:00 Test Item Value Reference Range Interpretation [...] PERCENT (BEAKER) (test code = 2801) PROTHROMBIN [id number] 09:20:00 Test Item Value Reference Range Interpretation [...] valves.Within 24 hours, if on CoumadinPOCT- GLUCOSE [id number] 07:57:00 Test Item Value Reference Range Interpretation Comments POC-GLUCOSE METER 183 mg/dL 70-110 H TESTED AT [place] [address] ([facility]) (test code = ALPHONSO Caicedo [facility] 1538) [address] POCT-GLUCOSE [id number] 21:30:00 Test Item Value Reference Range Interpretation Comments POC-GLUCOSE METER 326 mg/dL 70-110 H Will Repea t Test/TESTED ([facility]) (test code = AT [address] 1538) [facility] 7703 0 POCT-GLUCOSE [id number] 17:47:00 Test Item Value Reference Range Interpretation Comments POC-GLUCOSE METER 332 mg/dL 70-110 H TESTED AT [place] [address] ([facility]) (test code = [place] Caicedo [place] [address]) [address] POCT-GLUCOSE [id number] 11:54:00 Test Item Value Reference Range Interpretation Comments POC-GLUCOSE METER 171 mg/dL 70-110 H TESTED AT [place] [address] ([facility]) (test code = ALPHONSO Caicedo [facility] 1538) [address] POCT-GLUCOSE [id number] 08:21:00 Test Item Value Reference Range Interpretation Comments POC-GLUCOSE METER 171 mg/dL 70-110 H TESTED AT [place] [address] ([facility]) (test code = JIGNESHCA Sascha [place] 29[address]) [address] CBC W/PLT COUNT & AUTO [id number] 07:27:00 Test Item Value Reference Range Interpretation Comments WHITE BLOOD CELL COUNT ([facility]) 13.7 K/ L 3.5-10.5 H (test code = 775) RED BLOOD CELL COUNT ([facility]) 2.93 M/ L 4.63-6.08 L (test code = 761) HEMOGLOBIN ([facility]) (test code = 9.3 GM/DL 13.7-17.5 L [...] Received comment: User comments: Slide comments:BASIC METABOLIC [id number] 05:54:00 Test Item Value Reference Range Interpretation [...] NOT APPLICABLE FOR DIALYSIS PATIEN TS. POCT-GLUCOSE [id number] 21:28:00 Test Item Value Reference Range Interpretation Comments POC-GLUCOSE METER 296 mg/dL 70-110 H TESTED AT [facility] 6720 [facility] (test code = [place] 1538) [address] POCT-GLUCOSE [id number] 17:32:00 Test Item Value Reference Range Interpretation Comments POC-GLUCOSE METER 330 mg/dL 70-110 H TESTED AT [facility] 6720 ([facility]) (test code = [place] 1538) [address] CBC W/PLT COUNT & AUTO [id number] 16:02:00 Test Item Value Reference Range Interpretation [...] 3438) Received comment: User comments: Slide comments:POCT-GLUCOSE [id number] 11:35:00 Test Item Value Reference Range Interpretation Comments POC-GLUCOSE METER 248 mg/dL 70-110 H TESTED AT [facility] 6720 (BEAKER) (test code = [place] 1538) [address] T4, [id number] 08:58:00 Test Item Value Reference Range Interpretation Comments FREE T4 (BEAKER) (test code = 655) 1.29 ng/dL 0.70-1.48 HEMOGLOBIN [id number] 08:50:00 Test Item Value Reference Range Interpretation Comments HEMOGLOBIN A1C (BEAKER) (test code = 7.4 % 4.3-6.1 H 368) LIPID [id number] 08:07:00 Test Item Value Reference Range Interpretation [...] 130-159 High 160-189 Very High >=190BASIC METABOLIC [id number] 08:07:00 Test Item Value Reference Range Interpretation [...] FOR DIALYSIS PATIEN TS. TSH/FREE T4 IF [id number] 08:04:00 Test Item Value Reference Range Interpretation Comments THYROID STIMULATING HORMONE 0.06 uIU/mL 0.35-4.94 L (BEAKER) (test code = 772) POCT-GLUCOSE [id number] 07:38:00 Test Item Value Reference Range Interpretation Comments POC-GLUCOSE METER 316 mg/dL 70-110 H TESTED AT [place] [address] ([facility]) (test code = [facility] Sascha [facility] 1538) [address] POCT-GLUCOSE [id number] 21:22:00 Test Item Value Reference Range Interpretation Comments POC-GLUCOSE METER 194 mg/dL 70-110 H TESTED AT [place] [address] ([facility]) (test code = [facility] 1538) [address] CBC W/PLT COUNT & AUTO [id number] 19:30:00 Test Item Value Reference Range Interpretation [...] 0-100 H (test code = 700) TROPONIN [id number] 19:20:00 Test Item Value Reference Range Interpretation [...] failure, acidosis, acute neurological disease, and persistent tachyarrhythmia.[id number] 19:17:00 Test Item Value Reference Range Interpretation [...] for patients wiht mechanical heart valves.BASIC METABOLIC [id number] 19:14:00 Test Item Value Reference Range Interpretation [...] S NOT APPLICABLE FOR DIALYSIS PATIEN TS. [id number] 19:13:00 Test Item Value Reference Range Interpretation Comments MAGNESIUM (BEAKER) (test code = 2.4 mg/dL 1.6-2.6 627) RAD, CHEST, 1 VIEW, NON [id number] 17:54:00Reason for exam:->ABNORMAL ECG FINAL REPORT Chest, [...] MDReport Verified Date/Time: 04/26/2019 17:54:42 Reading Location: [address] Consult Reading Room C-REACTIVE [id number] 17:19:00 Test Item Value Reference Range Interpretation Comments C-REACTIVE PROTEIN (BEAKER) (test 0.22 mg/dL 0.00-0.50 code = 676) POCT-GLUCOSE [id number] 15:56:00 Test Item Value Reference Range Interpretation Comments POC-GLUCOSE METER 283 mg/dL 70-110 H TESTED AT [facility] 6720 (BEAKER) (test code = ALPHONSO Caicedo [place] 1538) [address] POCT-GLUCOSE [id number] 11:40:00 Test Item Value Reference Range Interpretation Comments POC-GLUCOSE METER 319 mg/dL 70-110 H TESTED AT [facility] 6720 (BEAKER) (test code = [facility] Sascha [place] 1538) [address] CBC W/PLT COUNT & AUTO [id number] 09:52:00 Test Item Value Reference Range Interpretation [...] (BEAKER) (test code = 2801) BASIC METABOLIC [id number] 08:06:00 Test Item Value Reference Range Interpretation [...] S NOT APPLICABLE FOR DIALYSIS PATIEN TS. [id number] 07:34:00 Test Item Value Reference Range Interpretation Comments PHOSPHORUS (BEAKER) 5.3 mg/dL 2.3-4.7 H Specimen slightly (test code = 604) hemolyzed POCT-GLUCOSE [id number] 07:18:00 Test Item Value Reference Range Interpretation Comments POC-GLUCOSE METER 364 mg/dL 70-110 H Notified R N MD/TESTED [facility] (test code = AT [place] [address]) [facility] 7703 0 HEPATITIS B SURFACE [id number] 22:01:00 Test Item Value Reference Range Interpretation Comments HEPATITIS B SURFACE ANTIGEN (2) Nonreactive Nonreactive (BEAKER) (test code = 2585) POCT-GLUCOSE [id number] 21:39:00 Test Item Value Reference Range Interpretation Comments POC-GLUCOSE METER 334 mg/dL 70-110 H Notified R N MD/TESTED ([facility]) (test code = AT [place] [address]) [facility] 7703 0 POCT-GLUCOSE [id number] 18:23:00 Test Item Value Reference Range Interpretation Comments POC-GLUCOSE METER 299 mg/dL 70-110 H TESTED AT [facility] 67 ([facility]) (test code = ALPHONSO Caicedo [place] [address]) [address] BASIC METABOLIC [id number] 16:58:00 Test Item Value Reference Range Interpretation [...] PATIEN TS. CBC W/PLT COUNT & AUTO [id number] 16:41:00 Test Item Value Reference Range Interpretation [...] PERCENT (BEAKER) (test code = 2801) POCT-GLUCOSE [id number] 16:07:00 Test Item Value Reference Range Interpretation Comments POC-GLUCOSE METER 303 mg/dL 70-110 H TESTED AT [facility] 6720 (BEAKER) (test code = [place] 1538) [address] TROPONIN [id number] 15:56:00 Test Item Value Reference Range Interpretation [...] acidosis, acute neurological disease, and persistent tachyarrhythmia.TROPONIN [id number] 08:07:00 Test Item Value Reference Range Interpretation [...] acute neurological disease, and persistent tachyarrhythmia.BASIC METABOLIC [id number] 08:05:00 Test Item Value Reference Range Interpretation [...] NOT APPLICABLE FOR DIALYSIS PATIEN TS. POCT-GLUCOSE [id number] 06:48:00 Test Item Value Reference Range Interpretation Comments POC-GLUCOSE METER 378 mg/dL 70-110 H TESTED AT [facility] 6720 (BEAKER) (test code = ALPHONSO Caicedo [place] 1538) [address] CBC W/PLT COUNT & AUTO [id number] 03:42:00 Test Item Value Reference Range Interpretation [...] (BEAKER) (test code = 2801) BASIC METABOLIC [id number] 03:38:00 Test Item Value Reference Range Interpretation [...] NOT APPLICABLE FOR DIALYSIS PATIEN TS. TROPONIN [id number] 03:38:00 Test Item Value Reference Range Interpretation [...] neurological disease, and persistent tachyarrhythmia.CT, BRAIN, WITHOUT [id number] 03:13:00Reason for exam:->LOSS OF CONSCIOUSNESSWhat is the [...] calcific atherosclerosis.There is no acute intracranial hemorrhage, extra-axialfluid collection, mass effect, herniation, hydrocephalus or large [...] persists. Signed: Pia White MDReport Verified Date/Time: 03:13:43 RAD, CHEST, 1 VIEW, NON [id number] 02:37:00Reason for exam:->LOSS OF CONSCIOUSNESSShould this be [...] MDReport Verified Date/Time: 04/14/2019 02:37:40 Reading Location: [address] Reading Room AFB CULTURE + [id number] 10:35:00 Test Item Value Reference Range Interpretation Comments CULTURE ([facility] (test No acid-fast bacilli code = 1095) isolated in 42 days AFB SMEAR ([facility]) No acid fast bacilli (test code = 994) seen FUNGUS CULTURE + [id number] 19:02:00 Test Item Value Reference Range Interpretation Comments CULTURE (BEAKER) (test No fungus isolated in code = 1095) 28 days FUNGUS SMEAR ([facility]) No fungi seen (test code = 1406) POCT-GLUCOSE [id number] 12:35:00 Test Item Value Reference Range Interpretation Comments POC-GLUCOSE METER 214 mg/dL 70-110 H TESTED AT [place] [address] ([facility]) (test code = [place] 1538) [address] BLOOD [id number] 12:01:00 Test Item Value Reference Range Interpretation Comments CULTURE (BEAKER) (test No growth in 5 days code = 1095) BLOOD [id number] 12:01:00 Test Item Value Reference Range Interpretation Comments CULTURE (BEAKER) (test No growth in 5 days code = 1095) POCT-GLUCOSE [id number] 07:49:00 Test Item Value Reference Range Interpretation Comments POC-GLUCOSE METER 174 mg/dL 70-110 H TESTED AT [place] [address] IVY) (test code = [place] 1538) [address] MR, CARDIAC WITHOUT [id number] 07:10:00Reason for exam:->r/o constrictive pericarditisFINAL REPORT Cardiac MRI dated 22 Jan 2019 INDICATION: Is a 68 year-old male with with past medical history of end-stage renal disease, coronary artery disease, PCI, on anticoagulation, there is a concern for underlying constrictive physiology. TECHNIQUE: Tali 3 Shauna CloudHashingIAMRI scanner. Morphologic and dynamic cine imaging were [...] MDReport Verified Date/Time: 01/23/2019 07:10:40 Reading Location: [place] [address] [facility]iology [facility] [id number] 05:56:00 Test Item Value Reference Range Interpretation [...] NOT APPLICABLE FOR DIALYSIS PATIEN TS. C-REACTIVE [id number] 05:55:00 Test Item Value Reference Range Interpretation Comments C-REACTIVE PROTEIN (BEAKER) (test 9.80 mg/dL 0.00-0.50 H code = 676) CBC W/PLT COUNT & AUTO [id number] 05:20:00 Test Item Value Reference Range Interpretation [...] 417) IMMATURE GRANULOCYTES-RELATIVE 1 % 0-1 PERCENT (AKER) (test code = 2801) POCT-GLUCOSE [id number] 22:15:00 Test Item Value Reference Range Interpretation Comments POC-GLUCOSE METER 183 mg/dL 70-110 H TESTED AT [facility] ([facility]) (test code = [facility] 1538) [address]381 BODY FLUID CULTURE + GRAM [id number] 13:25:00 Test Item Value Reference Range Interpretation Comments CULTURE ([facility]) (test No growth code = 1095) GRAM STAIN RESULT <1+ White blood cells ([facility]) (test code = seen 1123) GRAM STAIN RESULT No organisms seen ([facility]) (test code = 73729) POCT-GLUCOSE [id number] 12:07:00 Test Item Value Reference Range Interpretation Comments POC-GLUCOSE METER 275 mg/dL 70-110 H TESTED AT [facility] 67 ([facility]) (test code = [facility] 1538) [address]393 POCT-GLUCOSE [id number] 07:57:00 Test Item Value Reference Range Interpretation Comments POC-GLUCOSE METER 160 mg/dL 70-110 H TESTED AT [facility] 6720 ([facility]) (test code = [facility] 1538) 32717 POCT-GLUCOSE [id number] 21:56:00 Test Item Value Reference Range Interpretation Comments POC-GLUCOSE METER 210 mg/dL 70-110 H TESTED AT [facility] 67 ([facility]) (test code = [facility] 1538) 50536 BODY FLUID [id number] 18:30:00 Test Item Value Reference Range Interpretation Comments CRYSTALS, BODY FLUID No crystals seen. ([facility]) (test code = 2165) [id number] Slade Granados MD ([facility]) (test code = (electronic signature) 2607) POCT-GLUCOSE [id number] 17:51:00 Test Item Value Reference Range Interpretation Comments POC-GLUCOSE METER 152 mg/dL 70-110 H TESTED AT [facility] 6720 (BEAKER) [facility] 1538) 360[address] [id number] 13:48:00 Test Item Value Reference Range Interpretation Comments PHOSPHORUS (BEAKER) (test code = 4.7 mg/dL 2.3-4.7 604) BODY FLUID CULTURE + GRAM [id number] 12:29:00 Test Item Value Reference Range Interpretation Comments CULTURE (BEAKER) (test No growth code = 1095) GRAM STAIN RESULT <1+ White blood cells (BEAKER) (test code = seen 1123) GRAM STAIN RESULT No organisms seen (BEAKER) (test code = 11739) POCT-GLUCOSE [id number] 11:37:00 Test Item Value Reference Range Interpretation Comments POC-GLUCOSE METER 295 mg/dL 70-110 H TESTED AT [place] [address] (BEAKER) (test code = [facility] 1538) [address] POCT-GLUCOSE [id number] 07:36:00 Test Item Value Reference Range Interpretation Comments POC-GLUCOSE METER 219 mg/dL 70-110 H TESTED AT [facility] 67 (BEAKER) (test code = [facility] 1538) 048[address] [id number] 06:49:00 Test Item Value Reference Range Interpretation Comments MAGNESIUM (BEAKER) (test code = 1.9 mg/dL 1.6-2.6 627) BASIC METABOLIC [id number] 06:49:00 Test Item Value Reference Range Interpretation [...] PATIEN TS. CBC W/PLT COUNT & AUTO [id number] 05:55:00 Test Item Value Reference Range Interpretation [...] ABSOLUTE COUNT 1.12 K/ L 1.32-3.57 L ([facility]) (test code = 414) MONOCYTES ABSOLUTE COUNT (AKER) 0.69 K/ L 0.30-0.82 (test code = 415) EOSINOPHILS ABSOLUTE COUNT 0.18 K/ L 0.04-0.54 ([facility]) (test code = 416) BASOPHILS ABSOLUTE COUNT ([facility]) 0.07 K/ L 0.01-0.08 (test code = 417) IMMATURE GRANULOCYTES-RELATIVE 2 % 0-1 H PERCENT ([facility]) (test code = 2801) POCT-GLUCOSE [id number] 21:34:00 Test Item Value Reference Range Interpretation Comments POC-GLUCOSE METER 218 mg/dL 70-110 H TESTED AT [place] [address] ([facility]) (test [facility] = [facility] 1538) [address] POCT-GLUCOSE [id number] 17:42:00 Test Item Value Reference Range Interpretation Comments POC-GLUCOSE METER 209 mg/dL 70-110 H TESTED AT [place] [address] ([facility]) (test code = [facility] Sascha [facility] 1538) [address] POCT-GLUCOSE [id number] 12:00:00 Test Item Value Reference Range Interpretation Comments POC-GLUCOSE METER 256 mg/dL 70-110 H TESTED AT [place] [address] ([facility]) (test code = [facility] Sascha [facility] 1538) [address] POCT-GLUCOSE [id number] 08:07:00 Test Item Value Reference Range Interpretation Comments POC-GLUCOSE METER 226 mg/dL 70-110 H TESTED AT [place] [address] ([facility]) (test code = [facility] 1538) 70341 CBC W/PLT COUNT & AUTO [id number] 06:16:00 Test Item Value Reference Range Interpretation Comments WHITE BLOOD CELL COUNT ([facility]) 9.2 K/ L 3.5-10.5 (test code = 775) RED BLOOD CELL COUNT ([facility]) 2.82 M/ L 4.63-6.08 L (test code = 761) HEMOGLOBIN ([facility]) (test code = 8.7 GM/DL 13.7-17.5 L 410) HEMATOCRIT ([facility]) (test code = 27.9 % 40.1-51.0 L [...] (BEAKER) (test code = 2801) BASIC METABOLIC [id number] 06:16:00 Test Item Value Reference Range Interpretation [...] APPLICABLE FOR DIALYSIS PATIEN TS. VANCOMYCIN LEVEL, [id number] 06:16:00 Test Item Value Reference Range Interpretation Comments VANCOMYCIN RANDOM (BEAKER) (test 15.3 ug/mL code = 523) Reference Range: No [id number] 06:07:00 Test Item Value Reference Range Interpretation Comments MAGNESIUM (BEAKER) (test code = 2.0 mg/dL 1.6-2.6 627) POCT-GLUCOSE [id number] 21:22:00 Test Item Value Reference Range Interpretation Comments POC-GLUCOSE METER 276 mg/dL 70-110 H TESTED AT [facility] 6720 (BEAKER) (test code = [place] Caicedo [place] 1538) [address] BODY FLUID CELL COUNT WITH [id number] 19:44:00 Test Item Value Reference Range Interpretation [...] = 2873) BODY FLUID CELL COUNT WITH [id number] 19:38:00 Test Item Value Reference Range Interpretation [...] code = 2873) LACTATE DEHYDROGENASE (LDH), BODY [id number] 19:16:00 Test Item Value Reference Range Interpretation [...] of specimen.RAD, CHEST, PA OR AP, 1 [id number] 19:12:00Reason for exam:->s/p left thoracentesisFINAL REPORT History: [...] MDReport Verified Date/Time: 01/19/2019 19:12:04 Reading Location: [address] Reading Room 07:12 PMPH, BODY [id number] 19:06:00 Test Item Value Reference Range Interpretation Comments PH, BODY FLUID (BEAKER) (test code = 8.00 1530) ALBUMIN, BODY [id number] 18:55:00 Test Item Value Reference Range Interpretation Comments ALBUMIN FLUID (BEAKER) (test code = 2.9 gm/dL 501) Reference Range: No Normals Assay performance has not been validated for this type of specimen.AMYLASE, BODY [id number] 18:55:00 Test Item Value Reference Range Interpretation Comments AMYLASE FLUID (BEAKER) (test code = 18 U/L 30-110 L 350) Absence of reference range indicates that normals have not been defined.Assay performance has not been validated for this type of specimen.LACTATE DEHYDROGENASE (LDH), BODY [id number] 18:55:00 Test Item Value Reference Range Interpretation [...] validated for this type of specimen.TRIGLYCERIDES, BODY [id number] 18:55:00 Test Item Value Reference Range Interpretation Comments TRIGLYCERIDES FLUID (BEAKER) (test 49 mg/dL code = 539) Reference Range: No Normals Assay performance has not been validated for this type of specimen.CREATININE, BODY [id number] 18:55:00 Test Item Value Reference Range Interpretation Comments CREATININE FLUID (BEAKER) (test 3.31 mg/dL code = 677) Reference Range: No Normals Assay performance has not been validated for this type of specimen.GLUCOSE, BODY [id number] 18:55:00 Test Item Value Reference Range Interpretation Comments GLUCOSE, BODY FLUID (BEAKER) (test 204 mg/dL 70-110 H code = 1528) Absence of reference range indicates that normals have not been defined.Assay performance has not been validated for this type of specimen.SPECIFIC GRAVITY, BODY [id number] 18:49:00 Test Item Value Reference Range Interpretation Comments SP GRAVITY MISCELLANEOUS (BEAKER) (test 1.030 code = 557) Reference Range: No NormalsU/S, [id number] 18:35:00Laterality?- >LeftReason for exam:->pleural effusionFINAL REPORT Ultrasound Guided left Thoracentesis: Modality: Ultrasound Approach: Left Posterior Lateral Intercostal Sedation: None Findings: Informed consent was obtained. After an appropriate site for drainage was found, the skin was prepped and draped, and local anesthesia was given. A 4 [place] catheter was inserted into the left pleural space under ultrasound guidance, and approximately 1000 cc of yellow pleural fluid was aspirated. The catheter was removed. No immediate complications were noted. A postprocedure chest radiograph revealed no evidence of pneumothorax. Impression: 1. Uncomplicated ultrasound-guided left thoracentesis. Signed: Perfecto Arzate MDReport Verified Date/Time: 01/19/2019 18:35:33 Reading Location: [address] Reading Room POCT-GLUCOSE [id number] 18:27:00 Test Item Value Reference Range Interpretation Comments POC-GLUCOSE METER 245 mg/dL 70-110 H TESTED AT [place] [address] ([facility]) (test code = [place] 1538) [address] POCT-GLUCOSE [id number] 13:05:00 Test Item Value Reference Range Interpretation Comments POC-GLUCOSE METER 169 mg/dL 70-110 H TESTED AT [facility] 6720 (BEAKER) (test code = [place]PH[place] 1538) [address] RAD, CHEST, 1 VIEW, NON [id number] 10:50:00Reason for exam:->s/p pericardial drainShould this be [...] MDReport Verified Date/Time: 01/19/2019 10:50:13 Reading Location: [address] Transitional Reading Room VANCOMYCIN LEVEL, [id number] 09:24:00 Test Item Value Reference Range Interpretation Comments VANCOMYCIN RANDOM (BEAKER) (test 31.8 ug/mL code = 523) Reference Range: No NormalsBASIC METABOLIC [id number] 05:55:00 Test Item Value Reference Range Interpretation [...] PATIEN TS. CBC W/PLT COUNT & AUTO [id number] 05:07:00 Test Item Value Reference Range Interpretation [...] PERCENT (BEAKER) (test code = 2801) POCT-GLUCOSE [id number] 00:04:00 Test Item Value Reference Range Interpretation Comments POC-GLUCOSE METER 134 mg/dL 70-110 H TESTED AT [facility] 6720 (BEAKER) (test code = ALPHONSO Caicedo [place] 1538) [address] POCT-GLUCOSE [id number] 21:27:00 Test Item Value Reference Range Interpretation Comments POC-GLUCOSE METER 227 mg/dL 70-110 H TESTED AT [facility] 6720 (BEAKER) (test code = ALPHONSO Caicedo [place] 1538) [address] BODY FLUID CELL COUNT WITH [id number] 19:53:00 Test Item Value Reference Range Interpretation Comments APPEARANCE FLUID (BEAKER) Bloody Clear A (test code = 510) COLOR FLUID (BEAKER) (test Red Colorless, Straw A code = 511) RBC FLUID (BEAKER) (test code 167387 /cu mm <=1 H = 513) ADJUSTED [...] Tube (test code = 2873) ALBUMIN, BODY [id number] 19:29:00 Test Item Value Reference Range Interpretation Comments ALBUMIN FLUID (BEAKER) (test code = 3.3 gm/dL 501) Reference Range: No Normals Assay performance has not been validated for this type of specimen.[id number] 09:21:00 Test Item Value Reference Range Interpretation Comments PROCALCITONIN (BEAKER) (test code 0.53 ng/mL <0.05 H = 3036) SEPSIS RISK (ng/mL)Low: 0.05-0.50Intermediate: 0.51-2.00High: >=2.01TROPONIN [id number] 08:35:00 Test Item Value Reference Range Interpretation [...] H (test code = 700) BASIC METABOLIC [id number] 08:30:00 Test Item Value Reference Range Interpretation [...] APPLICABLE FOR DIALYSIS PATIEN TS. HEPATIC FUNCTION [id number] 08:28:00 Test Item Value Reference Range Interpretation [...] code = 14 U/L 6-55 347) PROTHROMBIN [id number] 08:25:00 Test Item Value Reference Range Interpretation [...] mechanical heart valves.RAD, CHEST, 1 VIEW, NON [id number] 08:09:00Reason for exam:->feverShould this be performed at [...] Chan MDReportVerified Date/Time: 01/18/2019 08:09:08 Reading Location: [facility] Radiology Reading Room CBC W/PLT COUNT & [...] (BEAKER) (test code = 2801) POCT-LACTIC ACID, [id number] 08:06:00 Test Item Value Reference Range Interpretation Comments POC-LACTIC ACID, 1.0 mmol/L 0.9-1.7 TESTED AT [facility] 6720 VENOUS (BEAKER) (test [place] code = 2805) [address] BLOOD [id number] 08:00:00 Test Item Value Reference Range Interpretation Comments CULTURE (BEAKER) (test No growth in 5 days code = 1095) BLOOD [id number] 08:00:00 Test Item Value Reference Range Interpretation Comments CULTURE (BEAKER) (test No growth in 5 days code = 1095) HEMOGLOBIN [id number] 20:14:00 Test Item Value Reference Range Interpretation Comments HEMOGLOBIN A1C (BEAKER) (test code = 6.8 % 4.3-6.1 H 368) RAD, CHEST, 1 VIEW, NON [id number] 16:01:00Reason for exam:->respiratory insufficiencyShould this be performed at the bedside?->YesFINAL REPORT Clinical History: Respiratory insufficiency Comparison Study: January 07, 2019 Findings: The cardiac silhouette is enlarged. The lungs are within normal limits. The pleuralspaces are clear. No significant bony or soft tissue abnormalities are seen. A stent projects over the left shoulder. Impression: Cardiomegaly. Signed: Acosta Becker Verified Date/Time: 01/08/2019 16:01:59 Reading Location: [address] Consult Reading Room POCT- GLUCOSE [id number] 12:01:00 Test Item Value Reference Range Interpretation Comments POC-GLUCOSE METER 178 mg/dL 70-110 H TESTED AT [facility] 6720 (BEAKER) (test code = [place] 1538) [address] BASIC METABOLIC [id number] 06:13:00 Test Item Value Reference Range Interpretation [...] 0-0 (BEAKER) (test code = 413) POCT-GLUCOSE [id number] 21:50:00 Test Item Value Reference Range Interpretation Comments POC-GLUCOSE METER 211 mg/dL 70-110 H TESTED AT [place] [address] ([facility]) (test code = ALPHONSO Caicedo [place] 1538) [address] POCT-GLUCOSE [id number] 18:22:00 Test Item Value Reference Range Interpretation Comments POC-GLUCOSE METER 118 mg/dL 70-110 H TESTED AT [place] [address] ([facility]) (test code = [place] 1538) [address] POCT-GLUCOSE [id number] 12:04:00 Test Item Value Reference Range Interpretation Comments POC-GLUCOSE METER 158 mg/dL 70-110 H TESTED AT [place] [address] ([facility]) (test code = ALPHONSO Caicedo [facility] 1538) [address] RAD, CHEST, 1 VIEW, NON [id number] 10:43:00Reason for exam:->respiratory insufficiencyShould this be performed at the bedside?->YesFINAL REPORT INDICATION: respiratory insufficiency COMPARISON:January 06 TECHNIQUE: Chest radiograph, single view, portable technique. FINDINGS / IMPRESSION: Enlarged heart shadow and nonspecific left retrocardiac opacity again demonstrated. Pulmonary veins are prominent but no overt pulmonary edema. No pneumothorax. Osseous structures unremarkable. Signed: Franky Mix MDReport Verified Date/Time: 01/07/2019 10:43:17 Reading Location: [facility] Radiology Reading Room POCT-GLUCOSE [id number] 08:09:00 Test Item Value Reference Range Interpretation Comments POC-GLUCOSE METER 145 mg/dL 70-110 H TESTED AT [place] [address] ([facility]) (test code = ALPHONSO Caicedo [facility] 1538) 48953 POCT-GLUCOSE [id number] 21:32:00 Test Item Value Reference Range Interpretation Comments POC-GLUCOSE METER 274 mg/dL 70-110 H TESTED AT [place] [address] ([facility]) (test code = [place]PHONSO Caicedo [place] 1538) [address] POCT-GLUCOSE [id number] 17:20:00 Test Item Value Reference Range Interpretation Comments POC-GLUCOSE METER 215 mg/dL 70-110 H TESTED AT [place] [address] ([facility]) (test code = ALPHONSO Caicedo [place] 1538) [address] POCT-GLUCOSE [id number] 14:33:00 Test Item Value Reference Range Interpretation Comments POC-GLUCOSE METER 200 mg/dL 70-110 H TESTED AT [facility] 6720 [facility] (test code = ALPHONSO Caicedo [facility] 1538) 41452 POCT-GLUCOSE [id number] 11:13:00 Test Item Value Reference Range Interpretation Comments POC-GLUCOSE METER 289 mg/dL 70-110 H TESTED AT [facility] 6720 ([facility]) (test code = ALPHONSO Caicedo [facility] 1538) 99345 POCT-GLUCOSE [id number] 08:08:00 Test Item Value Reference Range Interpretation Comments POC-GLUCOSE METER 180 mg/dL 70-110 H TESTED AT [facility] 67 ([facility]) (test code = ALPHONSO Caicedo [facility] 1538) [address] RAD, CHEST, 1 VIEW, NON [id number] 07:40:00Reason for exam:->respiratory insufficiencyShould this be performed at the bedside?->YesFINAL REPORT Chest dated 01/06/2019 COMPARISON: 01/05/2019 Clinical Information: respiratory insufficiency Comment: Heart is enlarged. Pulmonary vasculature is indistinct. Interstitialdisease is seen bilaterally suggestive of vascular congestion unchanged from prior study. There is small left pleural effusion. Signed: [facility] Verified Date/Time: 01/06/2019 07:40:30 Reading Location: [address] Consult Reading Room BASIC METABOLIC [id number] 07:18:00 Test Item Value Reference Range Interpretation [...] 358) GLUCOSE RANDOM 146 mg/dL 70-105 H ([facility]) (test code = 652) CALCIUM (AKER) 9.6 mg/dL 8.4-10.2 (test code = 697) EGFR ([facility]) (test 6 mL/min/1.73 ESTIMAT ED GFR IS code = 1092) sq m NOT ACCURATE CREATININE CLEARANCE IN PREDICTING GLOMERULAR FILTRATION RATE . ESTIMATED GFR I S NOT APPLICABLE FOR DIALYSIS PATIEN TS. VANCOMYCIN LEVEL, [id number] 07:13:00 Test Item Value Reference Range Interpretation Comments VANCOMYCIN RANDOM ([facility]) (test 17.4 ug/mL code = 523) Reference Range: No [id number] 07:09:00 Test Item Value Reference Range Interpretation Comments MAGNESIUM ([facility]) (test code = 2.1 mg/dL 1.6-2.6 627) POCT-GLUCOSE [id number] 21:46:00 Test Item Value Reference Range Interpretation Comments POC-GLUCOSE METER 173 mg/dL 70-110 H TESTED AT [place] [address] ([facility]) (test code = ALPHONSO Caicedo [facility] 1538) [address]498 POCT-GLUCOSE [id number] 16:20:00 Test Item Value Reference Range Interpretation Comments POC-GLUCOSE METER 172 mg/dL 70-110 H TESTED AT [place] [address] ([facility]) (test code = ALPHONSO Caicedo [facility] 1538) 818[address] POCT-GLUCOSE [id number] 12:21:00 Test Item Value Reference Range Interpretation Comments POC-GLUCOSE METER 260 mg/dL 70-110 H TESTED AT [place] [address] ([facility]) (test code = ALPHONSO Caicedo [facility] 1538) 99779 POCT-GLUCOSE [id number] 08:37:00 Test Item Value Reference Range Interpretation Comments POC-GLUCOSE METER 153 mg/dL 70-110 H TESTED AT [place] [address] ([facility]) (test code = [facility] Sascha [facility] 1538) [address] RAD, CHEST, 1 VIEW, NON [id number] 07:04:00Reason for exam:->respiratory insufficiencyShould this be performed at the bedside?->YesFINAL REPORT RAD, CHEST, 1 VIEW, NON DEPT INDICATION: respiratory insufficiencyCOMPARISON: Prior day's exam FINDINGS: Portable frontal view of the chest. IMPRESSION: Support Lines: External leads Lungs and pleura: Bibasilar subsegmental atelectasis No pneumothorax.Heart and mediastinum: Stable contours. Additional findings: None. Signed: Dasia Britt Verified Date/Time: 01/05/2019 07:04:08 Reading Location: [address] Neuro Reading Room C METABOLIC [id number] 05:47:00 Test Item Value Reference Range Interpretation [...] S NOT APPLICABLE FOR DIALYSIS PATIEN TS. [id number] 05:36:00 Test Item Value Reference Range Interpretation Comments MAGNESIUM (BEAKER) (test code = 1.9 mg/dL 1.6-2.6 627) CBC W/PLT COUNT & AUTO [id number] 05:18:00 Test Item Value Reference Range Interpretation [...] (BEAKER) (test code = 2801) BLOOD GAS, [id number] 05:12:00 Test Item Value Reference Range Interpretation [...] code = 1819) 21.0 % LACTIC ACID, [id number] 05:00:00 Test Item Value Reference Range Interpretation Comments LACTATE BLOOD ARTERIAL (2) 1.0 mmol/L 0.5-2.2 (BEAKER) (test code = 2874) BASIC METABOLIC [id number] 23:29:00 Test Item Value Reference Range Interpretation [...] S NOT APPLICABLE FOR DIALYSIS PATIEN TS. [id number] 23:17:00 Test Item Value Reference Range Interpretation Comments MAGNESIUM (BEAKER) (test code = 1.9 mg/dL 1.6-2.6 627) CBC W/PLT COUNT & AUTO [id number] 22:52:00 Test Item Value Reference Range Interpretation [...] 417) IMMATURE GRANULOCYTES-RELATIVE 1 % 0-1 PERCENT ([facility]) (test code = 2801) POCT-GLUCOSE [id number] 22:52:00 Test Item Value Reference Range Interpretation Comments POC-GLUCOSE METER 221 mg/dL 70-110 H TESTED AT [place] [address] ([facility]) (test code = [facility] 1538) [address] POCT-GLUCOSE [id number] 19:02:00 Test Item Value Reference Range Interpretation Comments POC-GLUCOSE METER 182 mg/dL 70-110 H TESTED AT [place] [address] ([facility]) (test code = [facility] 1538) 24406 POCT-GLUCOSE [id number] 15:31:00 Test Item Value Reference Range Interpretation Comments POC-GLUCOSE METER 150 mg/dL 70-110 H TESTED AT [place] [address] ([facility]) (test code = [facility] 1538) 29182 POCT-GLUCOSE [id number] 12:07:00 Test Item Value Reference Range Interpretation Comments POC-GLUCOSE METER 284 mg/dL 70-110 H TESTED AT [place] [address] ([facility]) (test code = [facility] 1538) [address] RAD, CHEST, 1 VIEW, NON [id number] 08:49:00Reason for exam:->respiratory insufficiencyShould this be performed [...] MDReport Verified Date/Time: 01/04/2019 08:49:14 Reading Location: [facility] Radiology Reading Room BASIC METABOLIC [id number] 06:21:00 Test Item Value Reference Range Interpretation [...] S NOT APPLICABLE FOR DIALYSIS PATIEN TS. [id number] 06:09:00 Test Item Value Reference Range Interpretation Comments POTASSIUM (BEAKER) (test code = 5.5 meq/L 3.5-5.1 H 379) [id number] 06:09:00 Test Item Value Reference Range Interpretation Comments MAGNESIUM (BEAKER) (test code = 2.2 mg/dL 1.6-2.6 627) [id number] 06:09:00 Test Item Value Reference Range Interpretation Comments PHOSPHORUS (BEAKER) (test code = 5.8 mg/dL 2.3-4.7 H 604) CBC W/PLT COUNT & AUTO [id number] 05:54:00 Test Item Value Reference Range Interpretation [...] (BEAKER) (test code = 2801) BLOOD GAS, [id number] 05:34:00 Test Item Value Reference Range Interpretation [...] = 1819) 21.0 % HEPATITIS B SURFACE [id number] 03:29:00 Test Item Value Reference Range Interpretation Comments HEPATITIS B SURFACE ANTIGEN (2) Nonreactive Nonreactive (BEAKER) (test code = 2585) TROPONIN [id number] 03:04:00 Test Item Value Reference Range Interpretation [...] 340 U/L 29-200 H code = 380) [id number] 02:42:00 Test Item Value Reference Range Interpretation [...] for patients with mechanical heart valves.BLOOD GAS, [id number] 02:15:00 Test Item Value Reference Range Interpretation [...] (test code = 1819) 21.0 % POCT-GLUCOSE [id number] 00:41:00 Test Item Value Reference Range Interpretation Comments POC-GLUCOSE METER 237 mg/dL 70-110 H TESTED AT [facility] 6720 (BEAKER) (test code = [place]PH[place] 1538) [address] TROPONIN [id number] 00:28:00 Test Item Value Reference Range Interpretation [...] acute neurological disease, and persistent tachyarrhythmia.COMPREHENSIVE METABOLIC [id number] 00:24:00 Test Item Value Reference Range Interpretation [...] S NOT APPLICABLE FOR DIALYSIS PATIEN TS. [id number] 00:21:00 Test Item Value Reference Range Interpretation Comments MAGNESIUM (BEAKER) (test code = 2.0 mg/dL 1.6-2.6 627) LACTIC ACID, [id number] 00:16:00 Test Item Value Reference Range Interpretation Comments LACTATE BLOOD ARTERIAL (2) 1.3 mmol/L 0.5-2.2 (BEAKER) (test code = 2874) BLOOD GAS, [id number] 23:54:00 Test Item Value Reference Range Interpretation [...] 40.0 % RAD, CHEST, 1 VIEW, NON [id number] 22:24:00Reason for exam:- >hypotensionShould this be performed at the bedside?->YesFINAL REPORT Chest dated 01/03/2019 Clinical Information: hypotension Comment: Heart is enlarged. Pulmonary vasculature is indistinct. Interstitial disease is seen bilaterally suggestive of vascular congestion. Endotracheal tube is present. A curvilinear radiopaque density is seen in the mid upper chest. Please correlate clinically. Signed: Yuridia Wallace MDReport Verified Date/Time: 0 01/03/2019 22:24:07 Reading Location: [facility] C013W Consult Reading Room BASI METABOLIC [id number] 22:08:00 Test Item Value Reference Range Interpretation [...] S NOT APPLICABLE FOR DIALYSIS PATIEN TS. [id number] 22:07:00 Test Item Value Reference Range Interpretation Comments MAGNESIUM (BEAKER) 2.0 mg/dL 1.6-2.6 Specimen slightly (test code = 627) hemolyzed [id number] 22:07:00 Test Item Value Reference Range Interpretation Comments PHOSPHORUS (BEAKER) 5.1 mg/dL 2.3-4.7 H Specimen slightly (test code = 604) hemolyzed POTASSIUM-STAT [id number] 21:42:00 Test Item Value Reference Range Interpretation Comments POTASSIUM (BEAKER) (test code = 4.7 meq/L 3.6-5.5 379) GLUCOSE-STAT [id number] 21:42:00 Test Item Value Reference Range Interpretation Comments GLUCOSE RANDOM (BEAKER) (test code 205 mg/dL 70-110 H = 652) SODIUM NA-STAT [id number] 21:42:00 Test Item Value Reference Range Interpretation Comments SODIUM (BEAKER) (test code = 381) 134 meq/L 135-148 L HGB/HCT (H&H) - STAT [id number] 21:42:00 Test Item Value Reference Range Interpretation Comments HEMOGLOBIN (BEAKER) (test code = 8.3 g/dL 13.0-16.8 L 410) HEMATOCRIT (BEAKER) (test code = 24.0 % 40.0-50.0 L 411) [id number] 21:34:00 Test Item Value Reference Range Interpretation [...] for patients with mechanical heart valves.LACTIC ACID, [id number] 21:27:00 Test Item Value Reference Range Interpretation Comments LACTATE BLOOD VENOUS 1.7 mmol/L 0.5-2.2 Specime n moderately (2) (BEAKER) (test hemolyzed code = 9108) CBC W/PLT COUNT & AUTO [id number] 21:16:00 Test Item Value Reference Range Interpretation [...] (BEAKER) (test code = 2801) BLOOD GAS, [id number] 21:03:00 Test Item Value Reference Range Interpretation [...] (BEAKER) (test code = 1819) 40.0 % [id number] 18:33:00 Test Item Value Reference Range Interpretation Comments ACTIVATED CLOTTING TIME 384 sec TEST ED AT [facility] 6720 (BEAKER) (test code = [place] [address]) [address] PROTHROMBIN [id number] 14:04:00 Test Item Value Reference Range Interpretation Comments PROTIME (BEAKER) (test code = 14.3 seconds 11.7-14.7 759) INR (BEAKER) (test code = 370) 1.2 <=5.9 RECOMMENDED COUMADIN/WARFARIN INR THERAPY RANGESSTANDARD DOSE: 2.0 - 3.0 Includes: PROPHYLAXIS for venous thrombosis, systemic embolization; TREATMENT for venous thrombosis and/or pulmonary embolus.HIGH RISK: Target INR is 2.5-3.5 for patients with mechanical heart valves.CBC W/PLT COUNT & AUTO [id number] 14:00:00 Test Item Value Reference Range Interpretation [...] PERCENT (BEAKER) (test code = 2801) TROPONIN [id number] 12:20:00 Test Item Value Reference Range Interpretation [...] acute neurological disease, and persistent tachyarrhythmia.COMPREHENSIVE METABOLIC [id number] 12:15:00 Test Item Value Reference Range Interpretation [...] NOT APPLICABLE FOR DIALYSIS PATIEN TS. LIPID [id number] 12:13:00 Test Item Value Reference Range Interpretation [...] Borderline 130-159 High 160-189 Very High >=190POCT-GLUCOSE [id number] 11:26:00 Test Item Value Reference Range Interpretation Comments POC-GLUCOSE METER 291 mg/dL 70-110 H TESTED AT [place] [address] ([facility]) (test code = [place] 1538) [address]
[2022-12-31] MEDS ORDERED: LIDOCAINE VISCOUS 2% SOLN 15 ML UDC ONE (15:17)
[2022-12-31] MEDS ORDERED: MAGNES/ALUMIN/SIMET 30ML UCUP ONE (15:17)
--- NOTE | 2022-12-31 15:17 | EDPHYS ---
Physician Documentation [facility] Name: Shelli Mireles Age: 72 yrs Sex: Male : 1950 Arrival Date: 12/31/2022 Time: 14:44 Bed IW4 Private MD: ED Physician Jaime Dickerson HPI: 12/31 15:10 This 72 yrs old Male presents to ER via Ambulatory with complaints of Mouth Problem. cp 15:11 The patient presents with a lesion, pain, ulceration. The problem is located in the cp mouth. Onset: The symptoms/episode began/occurred 2 week(s) ago. Duration: The symptoms are continuous, and are steadily getting worse. Associated signs and symptoms: Pertinent positives: pain, redness in area, Pertinent negatives: dysphagia, fever, inability to eat. Severity of symptoms: in the emergency department the symptoms are unchanged. 15:11 Patient reports he is currently taking prescribed Amoxicillin and was taking Augmentin cp previously but symptoms have worsened. Reports he recently was seen by a dentist due to tooth pain but was told he needs to see his pcp. Historical: - Allergies: 15:04 Bactrim; hb 15:04 TETRACYCLINES; hb 15:04 Sulfa (Sulfonamide Antibiotics); hb - PMHx: 15:04 Cardiac Stents x3; Diabetes - IDDM; diabetic retinopathy; Dialysis (started 03/20/17); hb High Cholesterol; Hypertension; PE; RENAL FAILURE; - PSHx: 15:04 bypass x 3; pacemaker; Stented artery; hb - Immunization history:: Adult Immunizations up to date. - Social history:: Smoking status: Patient denies any tobacco usage or history of. ROS: 15:12 Eyes: Negative for injury, pain, redness, and discharge. cp 15:12 Constitutional: Negative for body aches, chills, fever, poor PO intake. 15:12 ENT: Positive for sore throat, Negative for drainage from ear(s), ear pain, difficulty swallowing, difficulty handling secretions. 15:12 Respiratory: Negative for cough, shortness of breath, wheezing. 15:12 Abdomen/GI: Negative for abdominal pain, vomiting, diarrhea, constipation. 15:12 Skin: Negative for rash. 15:12 Neuro: Negative for altered mental status, dizziness, headache, weakness. 15:12 All other systems are negative. Exam: 15:15 Constitutional: The patient appears in no acute distress, alert, awake, non-toxic, well cp developed, well nourished, obese. 15:15 Head/Face: Normocephalic, atraumatic. cp 15:15 Eyes: Periorbital structures: appear normal, Conjunctiva: normal, no exudate, no cp injection, Sclera: no appreciated abnormality, Lids and lashes: appear normal, bilaterally. 15:15 ENT: External ear(s): are unremarkable, Ear canal(s): are normal, clear, TM's: dullness, bilaterally, Nose: is normal, Mouth: Lips: moist, Oral mucosa: moist, Gums: swollen, Tongue: displays stomatitis, abscess, is not appreciated, Posterior pharynx: Airway: no evidence of obstruction, patent, erythema, is not appreciated, exudate, is not appreciated, Dental exam: abscess, is not appreciated, dental caries, that is severe, diffusely, gum swelling, not appreciated, Voice: is normal. 15:15 Neck: ROM/movement: is normal, is supple, without pain, no range of motions limitations, Lymph nodes: no appreciated lymphadenopathy. 15:15 Chest/axilla: Inspection: normal. 15:15 Cardiovascular: Rate: normal. 15:15 Respiratory: the patient does not display signs of respiratory distress, Respirations: normal, no use of accessory muscles, no retractions, labored breathing, is not present. Vital Signs: 15:02 BP 127 / 66; Pulse 84; Resp 16; Temp 98; Pulse Ox 97% on R/A; Pain 2/10; hb 15:02 Pain Scale: Adult hb MDM: 15:15 Differential diagnosis: dental caries, gingivitis, dental abscess, pericoronitis, cp aphthous ulcers, gingivostomatitis. 15:17 Patient medically screened. cp 15:17 Data reviewed: vital signs, nurses notes. cp 15:17 Care significantly affected by the following chronic conditions: Diabetes, cp Hypertension, Chronic Kidney Disease, dental disease. Counseling: I had a detailed discussion with the patient and/or guardian regarding: the historical points, exam findings, and any diagnostic results supporting the discharge/admit diagnosis, the need for outpatient follow up, for definitive care, an ENT specialist, to return to the emergency department if symptoms worsen or persist or if there are any questions or concerns that arise at home. Response to treatment: the patient's symptoms have mildly improved after treatment, and as a result, I will discharge patient. Administered Medications: 15:25 Drug: GI Cocktail without - (Maalox PO Suspension 30 ml, Lidocaine Mucous hb Membrane Liquid 2 % 15 ml) Route: PO; Disposition: 20:14 Co-signature as Attending Physician, Jaime Dickerson DO I was immediately available on-site ms3 in the Emergency Department for consultation in the care of the patient. Disposition Summary: 12/31/22 15:17 Discharge Ordered Location: Home cp Problem: new cp Symptoms: have improved cp Condition: Stable cp Diagnosis - Other forms of stomatitis cp Followup: cp - With: Alyssa Taylor MD - When: 2 - 3 days - Reason: Recheck today's complaints Discharge Instructions: - Discharge Summary Sheet cp - Stomatitis cp Forms: - Medication Reconciliation Form cp - Thank You Letter cp - Antibiotic Education cp - Prescription Opioid Use cp Prescriptions: - Lidocaine Viscous - take 5 milliliter by ORAL route every 4-6 hours As needed mix with 1 tsp liquid cp bnadryl and 2 tsp Maalox as prior to swish, gargle and swallow; 1 unit; Refills: 0, Product Selection Permitted Signatures: Alf Ghotra PA PA cp Baxter, Heather, RN RN Jaime Gonzalez DO DO ms3
--- NOTE | 2022-12-31 15:17 | ER ---
Nurse's Notes [facility] Name: Shelli Mireles Age: 72 yrs Sex: Male : 1950 Arrival Date: 12/31/2022 Time: 14:44 Bed IW4 Private MD: Diagnosis: Other forms of stomatitis Presentation: 12/31 15:02 Chief complaint: Sores in mouth x 2 weeks, recently completed Augmentin and hb amoxicillin. Coronavirus screen: At this time, the client does not indicate any symptoms associated with coronavirus-19. Ebola Screen: No symptoms or risks identified at this time. 15:02 Method Of Arrival: Ambulatory hb 15:04 Initial Sepsis Screen: Does the patient meet any 2 criteria? No. Patient's initial hb sepsis screen is negative. Does the patient have a suspected source of infection? No. Patient's initial sepsis screen is negative. Risk Assessment: Do you want to hurt yourself or someone else? Patient reports no desire to harm self or others. Onset of symptoms was December 17, 2022. 15:04 Acuity: MICHELLE 4 hb Triage Assessment: 15:05 General: Appears in no apparent distress. Behavior is calm, cooperative. Pain: Pain hb currently is 2 out of 10 on a pain scale. Neuro: Level of Consciousness is awake, alert, obeys commands, Oriented to person, place, time, situation. Cardiovascular: Patient's skin is warm and dry. Respiratory: Respiratory effort is even, unlabored, Respiratory pattern is regular, symmetrical. Historical: - Allergies: 15:04 Bactrim; hb 15:04 TETRACYCLINES; hb 15:04 Sulfa (Sulfonamide Antibiotics); hb - PMHx: 15:04 Cardiac Stents x3; Diabetes - IDDM; diabetic retinopathy; Dialysis (started 03/20/17); hb High Cholesterol; Hypertension; PE; RENAL FAILURE; - PSHx: 15:04 bypass x 3; pacemaker; Stented artery; hb - Immunization history:: Adult Immunizations up to date. - Social history:: Smoking status: Patient denies any tobacco usage or history of. Screenin:05 [facility] ED Fall Risk Assessment (Adult) Score/Fall Risk Level 0 - 2 = Low Risk hb Oriented to surroundings, Maintained a safe environment, Educated pt \T\ family on fall prevention, incl call for assistance when getting out of bed. Abuse screen: Denies threats or abuse. Denies injuries from another. Nutritional screening: No deficits noted. Tuberculosis screening: No symptoms or risk factors identified. Assessment: 15:05 General: See triage assessment . hb Vital Signs: 15:02 BP 127 / 66; Pulse 84; Resp 16; Temp 98; Pulse Ox 97% on R/A; Pain 2/10; hb 15:02 Pain Scale: Adult hb ED Course: 14:47 Patient arrived in ED. ts1 14:54 Alf Ghotra PA is PHCP. cp 14:54 Jaime Dickerson DO is Attending Physician. cp 15:04 Triage completed. hb 15:05 Arm band placed on. hb 15:05 Patient has correct armband on for positive identification. hb 15:06 No provider procedures requiring assistance completed. Patient did not have IV access hb during this emergency room visit. 15:15 Alyssa Taylor MD is Referral Physician. cp Administered Medications: 15:25 Drug: GI Cocktail without - (Maalox PO Suspension 30 ml, Lidocaine Mucous hb Membrane Liquid 2 % 15 ml) Route: PO; Medication: 15:05 VIS not applicable for this client. hb Outcome: 15:17 Discharge ordered by . cp 15:25 Discharged to home ambulatory, with significant other. hb 15:25 Condition: stable 15:25 Discharge instructions given to patient, significant other, Instructed on discharge instructions, follow up and referral plans. medication usage, Demonstrated understanding of instructions, follow-up care, medications, Prescriptions given X 1. 15:25 Patient left the ED. hb Signatures: Alf Ghotra PA PA cp Baxter, Heather, RN RN Isabelle Cameron PAS PAS ts1
[2022-12-31 15:30] VITALS: BP 127/66; TEMP 98; O2SAT 97
== END 2022-12-31 15:25 | disposition home or self-care (01) ==
LOC: ER 14:44
DX: K12.1 Other forms of stomatitis (principal); E11.22 Type 2 diabetes mellitus with diabetic chronic kidney disease; N18.6 End stage renal disease; Z99.2 Dependence on renal dialysis; Z88.1 Allergy status to other antibiotic agents; Z88.2 Allergy status to sulfonamides; Z95.0 Presence of cardiac pacemaker; Z95.1 Presence of aortocoronary bypass graft
CPT/HCPCS: 99283

== ENCOUNTER 2023-06-19 10:28 | Observation (INO) | payer OTHER, MEDICARE ==
--- OUTSIDE RECORDS SUMMARY | 2023-06-19 10:41 | XMS REPORT | Continuity of Care Document ---
:1950 Author Organization [facility] t Address [address] [place] [address] [address] [place] [address] Care Team Providers Name Role Phone OSCAR MAURICE Primary Care Physician Unavailable Coby Polanco MD Attending Clinician COBY POLANCO Attending Clinician Unavailable Tiara Cuellar MD Attending Clinician Jamel Peralta Attending Clinician [phone] Arron Mercedes Attending Clinician ARRON MERCEDES Attending Clinician Unavailable Shady Tena MD Attending Clinician Jim Oscar Attending Clinician [phone] Alexandra Garcia MD Attending Clinician Pati Piña MD Attending Clinician Ellen FARR, Ludmila De Jesus Attending Clinician Shiv Multani MD Attending Clinician SHIV MULTANI Attending Clinician Unavailable EVANGELIST PATEL Attending Clinician Unavailable LEANDER DOSS Attending Clinician Unavailable MALCOLM BAIN Attending Clinician Unavailable MALENA YEPEZ Attending Clinician Unavailable JOSEE KURTZ Attending Clinician Unavailable SHAMSEE, LEONORA-JANETH BHATT-AHMED Attending Clinician Unavail able Pepe Ta Attending Clinician COBY POLANCO Admitting Clinician Unavailable ARRON MERCEDES Admitting Clinician Unavailable LUDMILA HUGHES Admitting Clinician Unavailable NEVIN RODRIGUEZ Admitting Clinician Unavailable ONEAL CORDON Admitting Clinician Unavailable CARROLL LOPEZ Admitting Clinician Unavailable AIMEE ESTES Admitting Clinician Unavailable FRENCH TRIPP Admitting Clinician Unavailable SHAMROSS, LEONORA-JANETH BHATT-AHMED Admitting Clinician Unavail able Payers Payer Name Policy Type Policy Number Effective Date Expiration Date S ource Problems Condition Condition Condition Status Onset Resolution [...] [facility] coronary coronary 00 Center artery artery S/P CABG x S/P CABG x Disease Active C [facility] 3 by 3 by 24 [facility] [place] on [place] on 00:00: Medical 10/28/2019 [...] 02-24 08:54:00 l MICROSCOPI MICROSCOPI 00:01: He rmann C C 00 HEMATURIA HEMATURIA Active 02/25/2016 [facility] [place] ESRD on ESRD on Disease Recurre [facility] dialysis dialysis mee [facility] Fever, Fever, Disease Active [facility] unspecifie unspecifie Meri kes d fever d fever Medical cause cause Center Morbid Morbid Problem Active 2016-03-11 Silas vazquez obesity obesity 00:49:31 l (disorder) (disorder) He rmann Active Problem 03/11/2016 [facility] [place] Hyperkalem Hyperkalem Disease Resolve 2020-092022-01-20 2022-01-[address] ia ia d 0-15 00:00:00 22:47:23 [facility]: Medical 00 [place] Syncope, Syncope, Disease Resolve 2022-01-20 2022-01-[address] unspecifie unspecifie d 8-11 00:00:00 22:47:44 [facility] syncope d syncope 00:00: Medi lashaun type type 00 Center Pleural Pleural Disease Resolve 2022-01-20 2022-01-[address] effusion effusion d 5-17 00:00:00 22:47:47 Meri kes on left on left 00:00: Medical 00 [place] Hypotensio Hypotensio Disease Resolve 2022-01-20 2022-01-[address] n due to n due to d 00:00:00 22:47:53 Meri kes hypovolemi hypovolemi Me dical a a Center Acute Acute Disease Resolve 2022-01-20 2022-01-[address] respirator respirator d 00:00:00 22:47:30 [facility] y y Medical insufficie insufficie Ce nter ncy ncy Acute Acute Disease Resolve 2022-01-20 2022-01-[address] blood loss blood loss d 00:00:00 22:47:26 [facility] anemia anemia [facility] Thrombocyt Thrombocyt Disease Resolve 2022-01-20 2022-01-[address] openia openia d 00:00:00 22:47:32 [facility] Hyperglyce Hyperglyce Disease Resolve 2022-01-20 2022-01-[address] anitha anitha d 00:00:00 22:47:33 [facility] Allergies, Adverse Reactions, Alerts Allergy Allergy Status Severity Reaction(s) Onset Inactive Treating Comm ents Source Name Type Date Date Clinician Sulfa DA Active U 2019-09 [facility] (Sulfona 0-27 Clear mide 00:00: Gibson Antibiot 00 [facility] ics) Medical [place] Sulfa DA Active U HIVES 2019-09 [facility] (Sulfona 0-27 Clear mide 00:00: [place] Antibiot 00 [facility] ics) [facility] tetracyc DA Active U 2019-09 [facility] line 0-26 Clear 00:00: Gibson 00 [facility] tetracyc DA Active U HIVES 2019-09 [facility] line 0-26 Clear 00:00: Gibson 00 [facility] Seasonal Allergy Active Other (See 2019- Itchy [facility] Allergie to Comments) 01-03 eyes, [facility] e 00 nose Center Sulfa Drug Active Hives 2018- [facility] (Sulfona Allergy 5 [facility] mide 00:00: Medical Antibiot 00 Center ics) Tetracyc Drug Active Rash 2018- welps [facility] lines Allergy 01-03 [facility] 00:00: Medical 00 Center SEASONAL Allergy Active Low Other 2019-[address] [facility] ALLERGIE - [facility] S 00:00: Medical 00 Center SULFA Allergy Active High Hives 2018-[address] [facility] (SULFONA 5-02 [facility] MIDE 00:00: Medical ANTIBIOT 00 Center ICS) TETRACYC Allergy Active Low Rash 2018-[address] [facility] LINES -02 [facility] 00:00: Medical 00 Center tetracyc tetracyc Active Memori a lines lines l [place] Family History Family Member Diagnosis Comments Start Date Stop Date Source Natural brother Cancer [facility] Natural father Cancer [facility] Natural mother Heart disease [facility] Social History Social Habit Start Date Stop Date Quantity Comments Source History SDOH [facility] Alcohol Comment Medical C enter History SDOH [facility] Alcohol Std Drinks Medica l Center History SDOH [facility] Alcohol Binge Medical [place] History SDNM [facility] Transport Non-Med Medical Center History SDOH [facility] Housing Places Medical Ce nter Lived Alcohol intake 2022-07-20 2022-07-[address] Heidi es 00:00:00 00:00:00 non-drinker of Medical Ce nter alcohol (finding) History SDOH 2022-01-20 2022-01-[address] [facility] Transport Med 00:00:00 00:00:[address] History [facility] 2022-01-20 2022-01-[address] [facility] Housing Unable to 00:00:00 00:00:00 Medical Center Pay History [facility] 2022-01-20 2022-01-[address] [facility] Housing Homeless 00:00:00 00:00:00 Medical Center Last Year Tobacco use and 2019-01-03 2019-01-[address] [facility] exposure 00:00:00 00:00:00 non-user Medical Center History [facility] 2019-01-03 2019-01-[address] [facility] Alcohol Frequency 00:00:00 00:00:00 Medical Center Sex [birth year] TYRON Lays 00:00:00 00:00:00 Medical Center Smoking Status Start Date Stop Date Source Social History [facility] Medications Ordered Filled Start Stop Current Ordering Indication Dosage Frequency Signature Comments Components Source Medication Medication Date Date Medication? Clinician (SIG) Name Name Missing or 2021-09 Yes 2.5mg Q.5D Use as [facility] Non-Formula 1-16 directed Luke s ry 15:54: 2.5 mg in Medical Medication 02 the mouth Cent er or throat 2 (two) times daily Eliquis 2.5mg . or 2021-09 Yes 2.5mg Q.5D Use as [...] mg Cap per capsule cholecalcif 2021-09 Yes [id number] QD Take [facility] karoline, 1-15 10,000 [facility] vitamin D3, 15:56: Units by Md dical 5,000 unit 32 mouth Center Tab [...] I St -acetaminop 1-15 tablet by Heidi ritu spaulding (NORCO 15:56: mouth 2 Medi lashaun [...] 1-15 mg by [facility] JANTOVEN) 15:56: mouth Tu, Med ical 7.5 MG 32 ,Sa, [facility] Center tablet . warfarin 2021-09 Yes [...] mg Cap per capsule cholecalcif 2021-09 Yes [id number] QD Take [facility], 1-15 10,000 [facility] vitamin D3, 15:56: Units by Md dical 5,000 unit 32 mouth Center Tab [...] (LANTUS, 15:56: subcutaneo Med ical SEMGLEE) [facility] 100 unit/mL nightly injection Use as [...] mg Cap per capsule cholecalcif 2021-09 Yes [id number] QD Take [facility], 1-15 10,000 [facility] vitamin D3, 15:56: Units by Md dical 5,000 unit 32 mouth Center Tab [...] I St -acetaminop 1-15 tablet by Heidi ritu spaulding (NORCO 15:56: mouth 2 Medi lashaun [...] hr tablet 32 (two) Center times daily. famotidine Yes 20mg QD Take 1 [...] 00 :00 3 days. Center packet polyethylen 2021- No 17g QD Take [address] e glycol 5-21 05-25 by mouth [facility] (GLYCOLAX) 00:00: 00:00 daily for M edical 17 gram 00 :00 3 days. Center packet carvediloL 2020-09 Yes 25mg Take 1 CHI [...] hr 00 by mouth Center tablet daily. Vital Signs Vital Name Observation Time Observation [...] 180.3 cm WEIGHT 2022-07-13 12:07:00 124.5 kg WEIGHT 2022-01-26 20:00:00 125.5 kg HEIGHT 2022-01-25 10:31:00 180.3 cm WEIGHT 2022-01-25 10:31:00 127.914 kg WEIGHT 2022-01-26 20:00:00 125.5 kg HEIGHT 2022-01-25 10:31:00 180.3 cm WEIGHT 2022-01-25 10:31:00 127.914 kg WEIGHT 2022-01-21 18:00:00 132 kg HEIGHT 2022-01-19 10:56:00 180.3 cm WEIGHT 2022-01-19 10:56:00 125 kg WEIGHT 2022-01-21 18:00:00 132 kg HEIGHT 2022-01-19 10:56:00 180.3 cm WEIGHT 2022-01-19 10:56:00 125 kg WEIGHT 2021-06-18 08:29:00 128.3 kg WEIGHT 2021-06-18 07:15:00 128.3 kg WEIGHT 2021-06-17 22:00:00 128.4 kg WEIGHT 2021-06-17 20:00:00 129.4 kg HEIGHT 2021-06-17 10:31:00 180.3 cm WEIGHT 2021-06-17 10:31:00 129.366 kg WEIGHT 2021-06-18 08:29:00 128.3 kg WEIGHT 2021-06-18 07:15:00 128.3 kg WEIGHT 2021-06-17 22:00:00 128.4 kg WEIGHT 2021-06-17 20:00:00 129.4 kg HEIGHT 2021-06-17 10:31:00 180.3 cm WEIGHT 2021-06-17 10:31:00 129.366 kg Systolic blood 2022-07-19 15:10:00 146 mm[Hg] [facility] Diastolic blood 2022-07-19 15:10:00 67 mm[Hg] [facility] Heart rate 2022-07-19 15:10:00 76 /min [facility] Body temperature 2022-07-19 15:10:00 36.72 Ana [facility] Respiratory rate 2022-07-19 15:10:00 16 /min [facility] Oxygen saturation in 2022-07-19 15:10:00 98 /min [facility] Arterial blood by Medical Ce nter Pulse oximetry Body height 2022-07-19 12:00:00 180.3 cm [facility] Body weight 2022-07-19 12:00:00 125.4 kg [facility] BMI 2022-07-19 12:00:00 38.56 kg/m2 [facility] Procedures Procedure Date / Time Performing Clinician Source Performed REPORT OF PROCEDURE - 2022-07-19 14:25:11 Sheikh Coby [facility] REPORT OF PROCEDURE - 2022-07-19 14:22:12 Sheikh Coby [facility] TISSUE EXAM 2022-07-19 13:33:00 Sheikh Coby [facility] COLONOSCOPY 2022-07-19 13:04:00 Sheikh Coby [facility] ENDOSCOPY, UPPER GI 2022-07-19 13:04:00 Coby Polanco [facility] TRACT, WITH BIOPSY [facility], WITH GASTRIC 2022-07-19 13:04:00 Coby Polanco [facility]SE MET[facility] 2022-07-19 12:21:00 Coby Polanco [facility] BASIC METABOLIC PANEL 2022-07-19 12:19:00 Lyudmila Wolffshine Funes [facility] HEMOGLOBIN 2022-07-19 12:19:00 Alex Wolff [facility] POTASSIUM-STAT LAB 2022-07-19 12:19:00 Alex Wolff [facility] PROTHROMBIN TIME/INR 2022-07-19 12:19:00 Alex Wolff [facility] HEMODIALYSIS INPATIENT 2022-01-26 16:00:10 Gomezivett Jenn [facility] POCT-GLUCOSE METER 2022-01-26 11:46:00 [facility]sie [facility] CBC W/PLT+MANUAL DIFF 2022-01-26 08:07:00 Chelsie [facility] HEMOGLOBIN AND HEMATOCRIT 2022-01-26 08:07:00 [facility] CBC WITH PLATELET COUNT + 2022-01-26 08:07:00 Chelsie Inshlomo Mejias [facility] MANUAL DIFF [facility] (MANUAL DIFFERENTIAL) 2022-01-26 08:07:00 Sumi Jenn [facility] POCT-GLUCOSE METER 2022-01-26 07:23:00 Chelsie[facility]elissaarline [facility] CHEST 1 VIEW PORTABLE 2022-01-26 05:52:00 Praful Rodriguez [facility] ECG 12-LEAD 2022-01-26 04:49:24 Praful Rodriguez [facility] BASIC METABOLIC PANEL 2022-01-26 04:40:00 Chelsie [facility] CHEST 1 VIEW PORTABLE 2022-01-26 00:05:00 Praful Rodriguez [facility] ECG 12-LEAD 2022-01-25 23:28:33 Praful Rodriguez [facility] POCT-GLUCOSE METER 2022-01-25 21:49:00 Chelsie [facility] A[facility] GENERATOR - REMOVE & 2022-01-25 16:46:00 Arron Mercedes [facility] REPLACE W/ MAC ANESTHESIA Medica l Center (SING/DUAL/MULT) POCT-GLUCOSE METER 2022-01-25 16:07:00 Chelsie [facility] POCT-GLUCOSE METER 2022-01-25 14:11:00 Chelsie [facility] PROTHROMBIN TIME/INR 2022-01-25 11:29:00 Chelsie [facility] BASIC METABOLIC PANEL 2022-01-25 11:29:00 Chelsie [facility] ECG 12-LEAD 2022-01-25 11:15:29 Chelsie [facility] ARRYTHMIA IMPLANT REPORT 2022-01-25 00:00:00 ProviderHuy [facility] CARDIAC CATH REPORT - 2022-01-25 00:00:00 ProviderHuy [facility] HEMODIALYSIS INPATIENT 2022-01-21 19:14:08 Jenn Jonas [facility], [facility] POCT-GLUCOSE METER 2022-01-21 17:37:00 Cesar [facility] POCT-GLUCOSE METER 2022-01-21 11:55:00 Cesar [facility] POCT-GLUCOSE METER 2022-01-21 10:20[facility]00 [facility] 2022-01-21 07:26:00 [facility] CBC (HEMOGRAM ONLY) 2022-01-21 04:58:00 [facility] HEMO[facility] A1C 2022-01-21 04:58:00 [facility] PROT[facility]/INR 2022-01-21 04:57:00 Ophelia Bari [facility] COMPREHENSIVE METABOLIC 2022-01-21 04:57:00 Cesar [facility] TSH/FREE T4 IF INDICATED 2022-01-21 04:57:00 [facility] POCT-[facility]UCOSE METER 2022-01-20 21:12:00 Jackieblayne [facility] POCT-GLUCOSE METER 2022-01-20 18:09:00 Cesar [facility] CBC W/PLT COUNT & AUTO 2022-01-20 14:05:00 GomezJenn [facility] CBC W/PLT COUNT & AUTO 2022-01-20 14:05:[address] [facility] PACEMAKER CHECK 2022-01-20 12:17:58 Pantera [facility] HIGH SENSITIVITY TROPONIN 2022-01-20 12:14:00 [facility] HEM[facility] A1C 2022-01-20 12:14:00 [facility] HEPATITIS B SURFACE 2022-01-20 12:14:00 Jenn Jonas [facility] POCT-GLUCOSE METER 2022-01-20 10:23:00 Cesar [facility] BASIC METABOLIC PANEL 2022-01-20 04:15:[address] [facility] [facility] PROTHROMBIN TIME/INR 2022-01-20 04:15:00 Ophelia Bari [facility] LIPID PANEL 2022-01-20 04:15:00 Pantera [facility] POCT-GLUCOSE METER 2022-01-19 21:15:00 Ludmila Hughes [facility] POTASSIUM 2022-01-19 19:29:00 Pati Piña [facility] POCT-GLUCOSE METER 2022-01-19 18:39:00 Ludmila Hughes [facility] 2D ECHO W/ DOPPLER 2022-01-19 17:30:39 Alexandra Sylvester [facility] (CW/PW/COLOR) [facility] BASIC METABOLIC PANEL 2022-01-19 15:18:00 [place] [facility] CBC W/PLT COUNT & AUTO 2022-01-19 15:18:00 [place] [facility] HIGH SENSITIVITY TROPONIN 2022-01-19 15:18:00 [place] [facility] I [facility] PT/APTT 2022-01-19 15:18:00 [facility] CBC W/PLT COUNT & AUTO 2022-01-19 15:18:00 [place] [facility] XR CHEST 1 VIEW PORTABLE 2022-01-19 11:30:00 Michael Harrison [facility] / BEDSIDE [facility] Center ECG 12-LEAD 2022-01-19 10:57:45 [place] [facility] ECG 12-LEAD 2022-01-19 10:57:45 Unknown, Hl7 Doctor [facility] ED ECG INTERPRETATION 2022-01-19 10:57:00 Alexandra Sylvester [facility] ARRYTHMIA IMPLANT REPORT 2022-01-19 00:00:00 Provider, Default Mae Kelly [facility] EKG-SCANNED 2022-01-19 00:00:00 Provider, Default [facility] Miscellaneous [facility] operations<sup>2</sup> Plan of Care Planned Activity Planned Date Details Comments Source Future Scheduled 2032-07-19 Screening for malignant [facility] Test 00:00:00 neoplasm of colon Medical Ce nter (procedure) [code = 037537643] Future Scheduled 2032-07-19 Screening for malignant [facility] Test 00:00:00 neoplasm of colon Medical Ce nter (procedure) [code = 152918215] Future Scheduled 2032-07-19 Screening for malignant [facility] Test 00:00:00 neoplasm of colon Medical Ce nter (procedure) [code = 530075150] Future Scheduled 2032-07-19 Screening for malignant [facility] Test 00:00:00 neoplasm of colon Medical Ce nter (procedure) [code = 279613984] Future Scheduled 2032-07-19 Screening for malignant [facility] Test 00:00:00 neoplasm of colon Medical Ce nter (procedure) [code = 996416287] Future Scheduled 2032-07-19 Screening for malignant [facility] Test 00:00:00 neoplasm of colon Medical Ce nter (procedure) [code = 752475397] Future Scheduled 2023-07-[address] [facility] Test 00:00:00 Counseling and Medical Cente r Screening (12+) [code = Tobacco Cessation Counseling and Screening (12+)] Future Scheduled 2023-07-[address] [facility] Test 00:00:00 Counseling and Medical Cente r Screening (12+) [code = Tobacco Cessation Counseling and Screening (12+)] Future Scheduled 2023-07-[address] [facility] Test 00:00:00 Counseling and Medical Cente r Screening (12+) [code = Tobacco Cessation Counseling and Screening (12+)] Future Scheduled 2023-05-05 Influenza Vaccine (#1) [facility] 00:00[facility]00 [code = Influenza Medical Ce nter Vaccine (#1)] Future Scheduled 2023-05-[address] [facility] Test 00:00:00 (Season Ended) [code = Medic tx Center INFLUENZA VACCINE (Season Ended)] Future Scheduled 2022-09-[address] [facility] Test 00:00:00 (12+) [code = Medical Center DEPRESSION SCREENING (12+)] Future Scheduled 2022-09-04 FALLS RISK SCREENING [facility] Test 00:00:00 [code = FALLS RISK Medical C enter SCREENING] Future Scheduled 2022-09-[address] [facility] Test 00:00:00 (12+) [code = Medical Center DEPRESSION SCREENING (12+)] Future Scheduled 2022-09-04 FALLS RISK SCREENING [facility] Test 00:00:00 [code = FALLS RISK Medical C enter SCREENING] Future Scheduled 2022-09-[address] [facility] Test 00:00:00 (12+) [code = Medical Center DEPRESSION SCREENING (12+)] Future Scheduled 2022-09-04 FALLS RISK SCREENING [facility] Test 00:00:00 [code = FALLS RISK Medical C enter SCREENING] Future Scheduled 2022-05-05 INFLUENZA VACCINE (#1) [facility] 00:00:00 [code = INFLUENZA Medical Ce nter VACCINE (#1)] Future Scheduled 2021-04-09 COVID-19 VACCINE (3 - [...] - Booster for Pfizer series)] Future Scheduled 2019-10-[address] [facility] 00:00:00 measurement (procedure) [facility] [code = 27810542] Future Scheduled 2017-08-[address] [facility] 00:00:00 WELLNESS (YEAR 2 or Medical Center FIRST YEAR if no IPPE) [code = MEDICARE ANNUAL WELLNESS (YEAR 2 or FIRST YEAR if no IPPE)] Future Scheduled 2017-08-[address] [facility] 00:00:00 WELLNESS (YEAR 2 or Medical Center FIRST YEAR if no IPPE) [code = MEDICARE ANNUAL WELLNESS (YEAR 2 or FIRST YEAR if no IPPE)] Future Scheduled 2017-08-[address] [facility] 00:00:00 WELLNESS (YEAR 2 or Medical Center FIRST YEAR if no IPPE) [code = MEDICARE ANNUAL WELLNESS (YEAR 2 or FIRST YEAR if no IPPE)] Future Scheduled 2001 SHINGLES VACCINES ([address] [facility] 00:00:00 2) [code = SHINGLES Medical Center VACCINES (1 of 2)] Future Scheduled 2001 SHINGLES VACCINES ([address] [facility] 00:00:00 2) [code = SHINGLES Medical Center VACCINES (1 of 2)] Future Scheduled 2001 SHINGLES VACCINES ([address] [facility] Test 00:00:00 2) [code = [facility] VACCINES (1 of 2)] Future Scheduled 1970 DTAP/TDAP/TD VACCINES [facility] 00:00:00 (1 - Tdap) [code = Medical C enter DTAP/TDAP/TD VACCINES (1 - Tdap)] Future Scheduled 1970 DTAP/TDAP/TD VACCINES [facility] 00:00:00 (1 - Tdap) [code = Medical C enter DTAP/TDAP/TD VACCINES (1 - Tdap)] Future Scheduled 1970 DTAP/TDAP/TD VACCINES [facility] 00:00:00 (1 - Tdap) [code = Medical C enter DTAP/TDAP/TD VACCINES (1 - Tdap)] Future Scheduled [...] [facility] 00:[facility]:00 protein (procedure) [facility] Center [code = 385930202] Future Scheduled 1957 PNEUMOCOCCAL 65+ YRS (1 [...] [facility]ukes Test 00:00:00 [code = CT Colonography Medi lashaun Center (combo)] Future Scheduled 1950 Screening for malignant [facility] Test 00:00:00 neoplasm of colon Medical Ce nter (procedure) [code = 669986882] Future Scheduled 1950 Screening for malignant [facility] Test 00:00:00 neoplasm of colon Medical Ce nter (procedure) [code = 561224927] Future Scheduled 1950 Sigmoidoscopy [code = [facility] Sigmoidoscopy] Medical Cente r Future Scheduled 1951 CT Colonography (combo) [facility] 00:00:00 [code = CT Colonography [facility] Center (combo)] Future Scheduled 1950 Screening for malignant [facility] Test 00:00:00 neoplasm of colon Medical Ce nter (procedure) [code = 147511649] Future Scheduled 1951 Screening for malignant [facility] Test 00:00:00 neoplasm of colon Medical Ce nter (procedure) [code = 024962242] Future Scheduled 1950 Sigmoidoscopy [code = [facility] 00:00:00 Sigmoidoscopy] Medical Cente r Future Scheduled 1951 CT Colonography (combo) [facility] Test 00:00:00 [code = CT Colonography [facility] Center (combo)] Future Scheduled 1950 Screening for malignant [facility] Test 00:00:00 neoplasm of colon Medical Ce nter (procedure) [code = 438631152] Future Scheduled 1950 Screening for malignant [facility] Test 00:00:00 neoplasm of colon Medical Ce nter (procedure) [code = 067118101] Future Scheduled 1950 Sigmoidoscopy [code = [facility] 00:[facility]:00 Sigmoidoscopy] Medical Cente r Encounters Start End Encounter Admission Attending Care Care Encounter Source Date/Time Date/Time Type Type Clinicians Facility Department ID 2020-06-29 Inpatient [facility] [id number] [facility] 22:07:00 77 [facility] 2019-10-22 Inpatient [facility] [id number] [facility] 11:26:20 [id number] 2022-07-19 2022-07-19 [facility] [id number] 11:04:00 15:54:00 Encounter [facility] 2022-07-19 2022-07-19 [facility] LUIS M Polanco [facility] [id number] 11:04:00 15:54:00 Encounter Coby Ciera [facility] 2022-07-19 2022-07-19 Outpatient SYEDA SANDHU Surgery [id number] [facility] 11:04:00 15:54:00 COBY 2022-07-19 2022-07-19 Anesthesia [place] [facility] [id number] 13:14[facility]00 14:31[facility] 2022-07-19 [facility] [id number] 13:14[facility]00 14:31[facility] 2022-07-[facility] 2022-07-[address] [facility] [id number] 13:00:00 14:00:00 [facility] 2022-07-19 2022-07-[address] [facility] [id number] 13:00:00 14:00:00 [facility] 2022-07-19 2022-07-19 Travel [facility] [id number] [facility] 00:00:00 [facility] 2022-07-19 2022-07-19 Travel [facility] [id number] [facility] 00:[facility]:00 00:00:00 [facility] 2022-07-13 2022-07-13 Outpatient SYEDA SANDHU SLE [id number] [facility] 00:00:00 00:00:00 COBY 2022-07-13 2022-07-13 Travel [facility] [id number] [facility] 00:[facility]:00 [facility] 2022-07-13 2022-07-13 Travel [facility] [id number] [facility] 00:[facility]:00 [facility] 2022-01-25 2022-01-26 Hospital LUIS M Mercedes, [facility] [id number] 10:23:00 21:22:[address] [facility] 2022-01-25 2022-01-26 Outpatient [facility] Surgery [id number] SLE 10:23:00 21:22:00 [facility] 2022-01-25 2022-01-[address] [facility] [id number] [facility] 17:11:00 20:51:00 Event Jim Hernandez [facility] 2022-01-25 2022-01-25 Surgery Chelsie, [facility] [id number] 16:03:00 18:24:00 [facility] 2022-01-19 2022-01-21 Hospital ER Alexandra Sylvester [facility] [id number] 15:19:00 20:40:00 Encounter Pati Piña [facility] 2022-01-19 2022-01-21 Inpatient ER [facility] Emergency [id number] SLE 15:19:00 20:40:[address] [facility] 2022-01-19 2022-01-[address] [facility] [id number] 00:00:00 00:00:00 Only [facility] 2022-01-19 2022-01-19 Travel [facility] [id number] [facility] 00:[facility]00 00:00:00 [facility] 2021-12-23 2021-12-23 Outpatient MHIE MHIE [id number] [facility] 13:45:00 13:45:00 16 arline SanchezClay 2021-12-23 2021-12-23 Outpatient MHIE MHIE [id number] [facility] 13:45:00 13:45:00 16 arline Teixeira 2021-06-29 2021-06-29 Outpatient MHIE MHIE [id number] [facility] 09:00:00 09:00:00 15 l Puneet 2021-06-29 2021-06-29 Outpatient MHIE MHIE [id number] [facility] 09:00:00 09:00:00 15 l Puneet 2021-06-17 2021-06-18 Inpatient EL ALA, [facility] Surgery [id number] [facility] 10:18:00 14:10:00 MAHBOOB 2021-06-17 2021-06-17 Outpatient MHIE MHIE [id number] [facility] 13:15:00 13:15:00 13 l Puneet 2021-06-17 2021-06-17 Outpatient MHIE MHIE [id number] [facility] 13:15:00 13:15:00 13 l Clay 2021-06-02 2021-06-02 Outpatient MHIE MHIE [id number] [facility] 14:45:00 14:45:00 14 arline Teixeira 2021-06-02 2021-06-02 Outpatient MHIE MHIE [id number] [facility] 14:45:00 14:45:00 14 arline Teixeira 2021-05-06 2021-05-06 Outpatient MHIE MHIE [id number] [facility] 14:45:00 14:45:00 12 arline Teixeira 2021-05-06 2021-05-06 Outpatient MHIE MHIE [id number] [facility] 14:45:00 14:45:00 12 arline Teixeira 2021-03-25 2021-03-25 Outpatient MHIE MHIE [id number] [facility] 10:30:00 10:30:00 11 l Puneet 2021-03-25 2021-03-25 Outpatient MHIE MHIE [id number] [facility] 10:30:00 10:30:00 11 l Puneet 2021-03-09 2021-03-09 Outpatient MHIE MHIE [id number] [facility] 13:00:00 13:00:00 10 l Puneet 2021-03-09 2021-03-09 Outpatient MHIE MHIE [id number] [facility] 13:00:00 13:00:00 10 l Puneet 2021-02-25 2021-02-25 Outpatient MHIE MHIE [id number] [facility] 14:45:00 14:45:00 08 l Clay 2021-02-25 2021-02-25 Outpatient MHIE MHIE [id number] [facility] 14:45:00 14:45:00 08 l Puneet 2021-02-25 2021-02-25 Outpatient MHIE MHIE [id number] [facility] 11:00:00 11:00:00 09 arline Puneet 2021-02-25 2021-02-25 Outpatient MHIE MHIE [id number] [facility] 11:00:00 11:00:00 09 arline Puneet 2019-12-16 2019-12-16 Outpatient [facility] [id number] [facility] 00:00:00 00:00:00 [id number] 2019-07-25 2019-07-25 Outpatient MHIE MHIE [id number] [facility] 10:15:00 10:15:00 07 arline Teixeira 2019-07-25 2019-07-25 Outpatient MHIE MHIE [id number] [facility] 10:15:00 10:15:00 07 arline Teixeira 2017-06-29 2017-06-29 Outpatient MHIE MHIE [id number] [facility] 13:45:00 13:45:00 06 arline Teixeira 2017-06-29 2017-06-29 Outpatient MHIE MHIE [id number] [facility] 13:45:00 13:45:00 06 arline Teixeira 2017-04-27 2017-04-27 Outpatient MHIE MHIE [id number] [facility] 14:15:00 14:15:00 05 arline Teixeira 2017-04-27 2017-04-27 Outpatient MHIE MHIE [id number] [facility] 14:15:00 14:15:00 05 arline Teixeira 2016-11-23 2016-11-23 Outpatient MHIE MHIE [id number] [facility] 15:00:00 15:00:00 04 arline Teixeira 2016-11-23 2016-11-23 Outpatient MHIE MHIE [id number] [facility] 15:00:00 15:00:00 04 arline Teixeira 2016-10-05 2016-10-05 Outpatient MHIE MHIE [id number] [facility] 15:30:00 15:30:00 03 arline Teixeira 2016-10-05 2016-10-05 Outpatient MHIE MHIE [id number] [facility] 15:30:00 15:30:00 03 arline Teixeira 2016-03-18 2016-03-18 Outpatient FARIBA FARIBA [id number] [facility] 10:30:00 10:30:00 02 arline Teixeira 2016-03-18 2016-03-18 Outpatient DARIN FARIBA [id number] [facility] 10:30:00 10:30:00 02 arline Teixeira 2016-03-08 2016-03-09 Outpt Diag nullFlavo [facility] [id number] Memoria 13:40:00 04:59:00 Services r Outpatient 00 l Imaging Puneet [place] 2016-03-08 2016-03-09 Outpt Diag nullFlavo [facility] [id number] Memoria 13:40:00 04:59:00 Services r Outpatient 00 l Imaging Puneet Almanza 2016-03-08 2016-03-08 Outpatient Cely, [address] [id number] 08:40:00 23:59:00 Pepe Edwardo Gordillo 2016-02-25 2016-02-25 Outpatient FARIBA FARIBA [id number] [facility] 15:15:00 15:15:00 01 arline Teixeira 2016-02-25 2016-02-25 Outpatient FARIBA FARIBA [id number] [facility] 15:15:00 15:15:00 01 arline Teixeira Results Test Description Test Time Test Comments Results Result Comments Source Tissue Exam 2022-07-21 18:34:08 Test Item Value Reference Range Interpretation Comme nts Case Report (test code = 104) Surgical Pathology Report Case: [id number] Authorizing Provider: Coby Polanco MD Collected: 07/19/2022 01:33 PM Ordering Location: [facility] Received: 07/19/2022 03:44 PM Pathologist: Carlos Keating MD Specimens: A) - Biopsy, Gastric, bx random r/o H-Pylori B) - Polyp, Gastric, polyp taken with standard forcep C) - Distal Esophagus, bx r/o EOE D) - Proximal Esophagus, bx r/o EOE DIAGNOSIS (test code = 3220) j2hpeXEySNXgi2tkKRGueIHhHgViIxVhMbNwSj dWMxIHtccnRmMVxlcGljOTYwMlxhbnNpXHNwbHRw N2PxtnrjXHmiYY6oAX3woUpxiANvrSJeVPKlEyCr e2wsm174bUGjz5faVASTbnvmiOw7kKmkO47do1S1 MmudV3omMSFkMNvuKEKeHJdjmYLkRKo8SMGxgXIv jlKvTeXoHTVptIGvnAG1WTQbFI8lgqxfIDmjCAkm OOGvdbZ9YXGcaYLyK7FrZGXwVW0uhojeDHE9CRac FCDcXBU1CmBvCSEys0Ougcl9PiZllSXbLGjptNIq shrtseGmKVZkTHhhGmUrZ2PTRIITNRavRJJsGXDP RF4SS27aUUNbDIYJAH1WL3ijBsJpFLETKVEsZBQ3 DVQjydIbOGBrKX5NIgJRCW7EK08GCGWWWHMSPKQR YGTVIBTPTCjMT7LRW8FVIBvYYKbvDQXcU9FiYHVj WXSUVWmRATwUKT0ZC21FVEWQRQSKZN2ZBYFZO42A SgfGIF9MHGLTRNrJB6VFOIWfYOOVJ8CMIGoDDGuq wSRnHEAkSTJaCBDkHpSVTLRWApOiGa8THVjSJRnN F4PZK1FTFsHGLLsVMhubW7UDSV9ER42ENHLFJWpa TSHRUPNZWoemHPMrVD5cZV3LR3YISZLCEPEXSgHB IfWYA4UTMiLVDG0KHSXWHYFPKMDfIPOEU3ZXUJFT ZSraSJVLLHvHPH8USCogXWFiyFYoGFGrVKDGF60E F6zgOPDTAOhFRCLPNR9IR0s0VHRvogAiBHRrZtTG GDsAFFvOBY0HAHQHITwRQZLkhvbrPVCeC2NeUJSi SDQLY7SINTnLUynkIYlVAAADSKKYKD4XI6b6ZBXm wjJbVHLrAuQTJSXNMYZOJ1QXUFaPIBsXVYHrbgHl OKBtHwVLKRNWRpXqLi9VCJSTD5kQK1LYGAwIIMcp BULwiLRdEINlNWHJX4PQONyOAcxoQYNTHQnYGAtn JTATW3CYRLhpaFZtQLAbEWUVOTZMSYbfRNWHMBlO V6tEBVKqrDJdLBTuVCDUKGpZHUdDLWAJJ6YiFT8H XT7WJClHNRdPSMOczx98PBX4MbWfe4F2USF3RUIj QJCyu5rdDTZuzVQfZoArKcPvVmStOfjoxFXeKBJr YfDag9hel127vMVhf7rzSHLiOpG6cLVjAHVnjQIf D063WIKnYKzko3iyg6HuINVctPJzm6M3CBFOyrxs dSa3qXzfV55jc1I0XiafN8icYTJkIMYtJ1IcEH0t XLGmVfa6AYM1PWR2WFNcRPNyA5ZbGI3oZWZzuKEv TRv7d5orzFlkLTLiRMY1z6wgRVarriWoMF4fjx0b oAi7m6skhyUuQNYxEVHkvQTIUBKqM5XzdCdaWe1n aXt5dVfsTwtpHGD1Umc2WM0vvo93atg7dKawMEFp hpsqUtR6PMpsYOJjdjhpDCm2WFtyKNVhbEH8OCOi eEGjO1OsIZSySV2obtr2JCE6ZUleGZIbAhP5AHIb nFDiQYVdnOwySBhus561DVT3GbRiNS0wZ5Pkr5T3 lS8ndJTqMMVacHMuQdNcSNSefg6krVZyDZrlp5Rf JXC0gjX4sVFkzTAqAJZxGdY4BYbjJM8iix32ZUYh BQR2qj5igHGbvHrtbbItdHGiJIzhY5VuKWFsr795 IJTjO3PjDRPto9F8ieGgWzKfOJHzvYW1kjG6LTHc NY1uxomkw8djZVdcTPovAKWsjnE9baH2WTOggGVj X3TubN1bQRUdDZ5ulocno1znXFT6YCdaIZDzEVA3 LqDiWDBtz2Ssvbe8DbQso6DamXBkCKahZ17ok463 IYXujzUgU1wptIOvbesjuQRqoyxlEPvoylS0DCFe MKvuirfxXSXmHQwxU0ylRxReVLLdxZeiNEhth7Zg QOAiDWThNrQbsKVuWWAoMwe1GDMtwWMnYSFmRzFm J7colizrQpFELMNgl4xcZ5lmnDJUrVNqE7GeOPxa psRxDNvdACtjCVH4IOZ8Nb76VqK0HRKkzz52 CPT Code(s) (test code = 7097) q0xpnVFxTLBydOK6AhLaPXHxs3yor2OdaHNj cGFy FGaqhBYtgtEoil01tEC9zH14YV7yCSYtExD9WJXg ruP2Bxl4BNMpJXNpgOZjP927z5jnm8dibfVpkJK1 hWmfZLYggtraAqZ1MMxbXQOonqmsXPq5DClqKDEu vZP0CCKuhKHbI6XsOJWoYB3szbo9QOS2KSfwEECc DyK5YPOwtHBnTIWiqHguYGwkg181PHW3PtXbERHi vsZgcJlmhV4eHlCmGEY9GJCqDEa1GVCdvo8= CLINICAL HISTORY (test code = 4726) r5pooUErMHEqaOW7IyNyKQPxp5pab1P sdHBncGFy XLpxtLOwwpTtjt03zIV6xX64RK1pTTMnIzY7KBRv ceC2Gmt7BKHdRCYrlAJfN752e1por2ldxyNsbOM5 EVPnYBWkN6JwBF7gZQSnoBZtH05vbMFhLOW2TLVj UYOopCNeXLJbRMP7KTChuOHqJ2oxCCPzVC8dqvoj UQztATjsAFCddSQ6ZAPxsOSwV2LwJNEuGCobQWJh ppr9WzQyTt6xaTYgdWwaHIkoPSGtMDIrLZzhpZBx aghhigRaZEZrLOTXKNY2sk2oa16yqRVtAGAeIFUq Exa5tOCvrQLtZTIoMTWiz2yykiMxKM5pRUZbw4Aa JZHnaE0gZDOoko7= GROSS DESCRIPTION (test code = n5kzpESgEEMirSAZOAVaK6figfJuRWBaaNAe [facility] [id number]) szixBMzyLZ8fNH3jiOyqpWPjsNXsGU9GJAPpOeQw LNCyxWPbzxXrCeBlIXPeeHAffAM3THDmYV5zweef ZGukZFjqDQUuauN0OYGiiTRsJ1CcJUEyWA8azdwe CZE2GBkfqC4opnQZXtudBc9upZLgvCxcDbVcNlXo NYHrZDFhDVZlzPsxPZLjUQy3cU4GZubqC01bk7Z2 Oex6SOTyCYDbA3UeBI5bHAFwwYAtS51MWlzlSTW0 IWCAJebaVMXuNG6Oz2mtIKYexEDnQMM9PVkmkQTf XQXjQNAgVMf4GXCcCFasbBVbSZ8wyMvoSexuuKpf y0MqwCUuBMspTGHuIQWuHHlsSMDaGA5HOhOfMSN1 MBYwSJOaXBk8MHr5JJ8HYrKuEKNsAUuxDOf0XOSb AOx7QKfpZV2TNUCcDcGgEsQ6YiE0VZNsItJpRINw KeSjUYDrEVWrWXjjPOxzeETiAI9xkJsepSUhqqLO XoLMeK4fx1ghPOhag5CttJLrHIPmvmHADyfwoOah TmVzdERvYzEgDQpcbHRycGFyXGxpbjBccmluMCAN ClxsdHJjaFxjZjFcZnMyMCBSZWNlaXZlZCBpbiBm d7HmNDytdqLvFRAayNMsHBsgvUwlwSshVPPtxHlz eeWnO3X4qyMlDS1zQYRgVOXnY7TpLWEfL79tGEYy lU9vZIEkHX6sOGn8HJIfMEDjRvhkS1BitAIvQpXr ZMBrYC93oTPdlBhxDXCsfuPfb1S6QHBav0J1UNSk etWfrYMmwHVuqHRyz6BsyH8vFRFnDQJhILWsBtSw rIMnavMfmxTlfPWvbULmgT0wpbCdz23fMVbylRJu MWMrFEKriIAbrYN2BUIqcU2tsV93ovOxdbJZEP7s wPPbRC1VATCtvfDHCmyjHjHcUbPmEbPKLatbaIBr mobdvLzxWiPlpPEyMkSzzGivgT06BSXrlQKqKTK0 KB5nAIWixsqcBIDhGTSgSZL7XHunhS95kMKwLCNa HAJbsVHtdN6Uz4ymSFLnwPLhFUG3LZuykRXpYXXm ZZVdXIwuGmIaU1MKBHWqFJfeZFLoBbWqYQn5DKcj M4QWLSFkCBYvPWC5GvRyPpH5PUj6MTFDUz5zRwKr ZLMyJeZyANI3PADtKFyvaWJsYDcmHeXJfkqujWDt STTlERoygzE0IGXxABYdbGlvhF5fAp1bBI0bvGDr DAmni5BjeNAvGXMoitARWkityXeoPqJauWVgRiJl DQpcbHRycGFyXGxpbjBccmluMCANClxsdHJjaFxj LwQcDrKoEPSDWMXneXNaNTXwcaJye7BvICepciKt LIRhqPUpTWzyyRhszFohGHZqnDcygnKdE0N5stWr FI2bKQPjAGEkZ5HrRPVdP79yKDTmqP9yBTMzJO2j PQj4MJXzKMHtYaiyF1PxdKNkDpHum5m1jITadSSf OGPwBbKyrQHgLpPtfQSgDkFtG04bvSVaMVBrTyMq dTfjp9UxTBUeTUiyXY20ABX9jFjhzZTsnqZthEZe xPJ9RVTkpR1dhC68duBamaPWPR1zcUHgXF5JZYVj ciANClxjZjBcZnMyMiANClxwbGFpblxlcGljTmVz [file] VCAoQVNDUCkNClxwbGFpblxlcGljTmVzdERvYzBc mPpfqR09TBMznPPiPST4NF8mUVRublbyOBIgIRWr IBL1HBjbiI89xMPkBAQqPFQkcKQsyT3NOJQzLHX9 EPiuoQ61kILqZC0BWHWiEMM6XDRywBZhDVH5SQ6d fQ0KfQ== MICROSCOPIC DESCRIPTION (test code = l6wtbKFlHJOykCM9MbOzIDTcd2frc0 BsdHBncGFy 3371) VVqgkGOxaqSgyn21tKQ2lS86GF3sXBHaWlZ5FIQs ekJ6Tam2GAMnOWQcbZQfZ536l1dyk6qxmcTyrXG9 aHzuAXAawgcmEiF3XTghUZWkzrhfEJa0AHhwRCAi uLP8BQHoqONnF4PvWSYnDL0sswh5EFC4XTxbMDAs KgA8GFHuoDUzRWVdwCnkLAymu931RLG6HyTyRZOe eiXwcInqiS6cAzUsVHZPZTUqa3WyOGEeQSPkirhs YXJkXHBhcn0= [facility] 18:34:08 Test Item Value Reference Range Interpretation Comments Case Report (test code Surgical Pathology = 104) Report Case: [id number] Authorizing Provider: Coby Polanco MD Collected: 07/19/2022 01:33 PM Ordering Location: [facility] Received: 07/19/2022 03:44 PM Pathologist: Carlos Keating MD Specimens: A) - Biopsy, Gastric, bx random r/o H-Pylori B) - Polyp, Gastric, polyp taken with standard forcep C) - Distal Esophagus, bx r/o EOE D) - Proximal Esophagus, bx r/o EOE DIAGNOSIS (test code = d3spqRQwFHVlg6irXYVviR 3220) FuZzEwMzNcZnRuYmpcdWMx IHtccnRmMVxlcGljOTYwMl gegkZvNAZxbRXsY0Rnbnki VKigGY2qOY5okJdkiCKguT QfSANvLyEzm6abg404uEKj p4bmGWIMomoeiWr1nQadW3 5vi9O4SdjgO6fgEPTeWZyt IKPcTPvxcXOeNTt1VDRikB VydzEyMjQwXHBhcGVyaDE1 VTHgKT2glxxaOGmeLIevPF UllzQ9FUPzcNIlQ2IyLBBo KX7heiqcVQZ9IThnCMZeBE Q7AlUaJSBvp0Fxihm9YfNb cGFyZFxwbGFpblxmczIwIE EaLAibDqPkV8QWQCRFDTei RAEkITVLJD7ZT60aGKQaAU ULHH3EC7emDtRbKFJUAZZa ZAK7OJCulxHhCQQsNJ8WAv CZMS4JX92IANYLMHKLRHUZ UVYUJTAWRPvNN3EWC0HHHL mAJIyhVSUnL0FbDXNkSGJZ FQiLRBrRCY7TI19CVXYGKO MPQC2YGTOYU11AXdrACW0D JXJNWLyHP8PBNKYpJJEKH9 JNQUxJVFlccGFyXGNmMSAg IIVtDhLVUVRXYyUmDv2XGS vETHuFQ6XET8TNXdZKHXdC SqgiM9XZQN8GL69ZJGSQNF fzZZFUWFYGWooeSHTaDP7j QH4LJ4VRMMHKJNUMReGDNo WER9NYGrGCPS4UYXPGXCOM HUEeSMTJX0OYSGGUCVrvYY XAPGcIUM0DPYuqRRKfnWAr DVRtJJNBD81JX4fdQIPVBV aQCWFPJF0WI2e6AEHukcKn QQRxCvKAXFjFHSyMZB3QHV NTSLvIDOPmfccrLJAyT6Gm ZJPdRIJWJ3SHIJyTVtcsTE cVTNGTOFMQHK9FK2r8EDTp ciAgLSAgUkVGTFVYIEVTT1 BIQUdJVElTXHBhciAgLSAg EzJYMMYOMhAbHp0HCYUUT3 qZS8WTHEvCDJfvTNNzdINf TXMiGFLDX2SLOHvGNaogYQ ZJONxPILnuDUJQT0DTICup cGFyICAtICBSRUZMVVggRV AKDWqJM8lYYKQvuURvCRTz VLKNFAjEVMbKBDKKR3TdZY 5HJC6FYOoPAKcIERTqkk53 EOO3HzUmr4D7SEP9BRNeGB Evn8kuKJAteTZxIjLcAyXj ZnRuYmpcdWMxXGRlZmYwe1 ryi390iTYug4lnLSPqJzP6 sMXjZTToePMvT197UQAlTT ove1blu9WlZXTfoMJdl6A1 TLAAsayfvRf5xMsyC02xq2 D7KbxgL6meQDLiTGJyC3Tl KM3dMVEwLmk0IIL0SUQ2WX WxOKZyI6HnAN5rKWNikQTc BVa6c3aveZhzVFHkKOE9g4 apAZgwncOtHA7rmo0hdRn8 i1jraoOeUFXtXSMqhFGPNM AaB4YxjCxdGj7dmKn9cAmg CwncRJF1Eis3KN5wln60it y7tWqrJFQexswcUkT3RDzs YPLgwxdnFJs0RQoaHLHvjW W9SCRdpCTaM0XcMFEyLW3l ntc1SJW5FTnqOCPtVxH3MR VriFTpPLIwlMawNEuvz941 CAZ8GqBhPM6rX7Ezi2P2kN 9maXRcZGVmdGFiNzIwXGZv ll0jeNPeRJjwg8MmSBM0tc U1uNTreJAmPSBtLoV3CVnr AO5pqp21WIBiNMN1zb3jmH DleBngjyEkyQBaYJvgN3Qf JNMok246TIGcW3RpWXWgo9 J2htOdXiBfVFPdtEP8haK0 BVOeCO6novbeb2hlECnoJH onDFEttsX8peT2BRBamVXe S6HngG5dAOLzLR3hrqwzz8 kbNZU8WVjvTPDyWHP9AmUc FVEvo4Nvpdw8ZnPio9BtcV ZvUPooC53sb227LCAkdbOw Q3huoXErqqyaiRMzckshOL wdvyX5ZILtUGqhzjliWKSo OArbH0wuTnJpFTTbhLztBG ahp2JdYDHbGDMaPkVdjOOh SCRwGue3DXEvwRGkIBSaHp SpA9kvzgmlNfOEBLNsk4ig K0upkWXXdGVfA3LmDLhtyd JzILfkQKjdSZM3BVP4Ot63 MdB7OMXows14 CPT Code(s) (test code d8tojYAoHIQgkTH8SkZmLH = 3357) Vqd4dby1BkkSVoxTMgEAya iRHqrtAfrt12yNY8oP09OJ 6zLIEzYfU8DAKwoqU0Dra8 XIYnHSWasADgI362w1bek0 okzzStqQM3nItaMEGdjbhq DpO5QFizMAFgcgdkPTf0VD jaHCOumML6GTTchNKiX2Vk EXCtUQ7zpfb5OFF9UAoxFL JaEtN1OJThfNZnZEMtcIar CEqzx634TFS2TjPlGNCuqn LryVcppB5hErLzZKE3JOOb UHm9ZDCren3= CLINICAL HISTORY (test i4fdfTLrFZRlfCO6XiNnKZ code = 3356) Vfj3kzo6VryVSyfPRoLNbl bQCwmsTvqo50gUZ2hB27XU 2qUSBfQyB0MGYnnxT4Vrr2 ASEnPHRxiZZgW150w2lvc7 zodgCpmDK4RQSjMWCwV5Mb FK2qYMFieTNzO88vsHEfSC Z8PFQnVBGeoZEfCQWsUBG1 EQAjuMEnG8udKLInAU9moo buQOojZLvwVKVmkYU9ABPt rLCgW3NqDYDiZUznFGWrfl p3DxPkFu7bfOVzmJnvJHcf YXJkXHJpMVxwbGFpblxmcz GaPFOnMJPZJWJ1ec0ng31v cCFqUQGsPCVtLov6iMTinG RjTKDhZWScl0qxdoNvTV8l SMLyo4SgHZEqaR5fCIUhid 0= GROSS DESCRIPTION (test h7xuhLZvEJSozKICJAGjQ9 code = [id number]) nkxhYyXKDtyVIpE9Lhgoqy RWtvLV0xZO6fvGmbjIDubV WxUM0PQLLkXxYjJYYveVBp hrWtNnLsLWEteRPhxHW3HM QxMB8lvllmYHztUFkdHCLb ksC2EGXcyCCtR9HbKIPrSD 7kdnzyUCZ6SKvpmQ6jwfES XvoqPx3inZTccMpzCjYxOz NoYXJzZXQwXGZuaWwgQXJp XVi6cL5CUtjyP55jx1N3Il x1TYDrSAOpS1IsTQ3fXHAc tTRkH15PPxxrFOU8VKHLPp uzAIPxEE1Pw8qyVOCdnKCs NKU7RVnhtNWnPYToVISuLV n2LTAjETqzvHJtAL2loWve IbrasYvlu7LbyQMeSUetSL VfSQReXZbgFEIcGT5LPwZl HGL9BGAsFCAbMTd9QMo5EQ 2EEjIbKHFtXPbeHFe0GTIi FMw5AXyvZK1ARSEnWpNgDv Q7HeQ8TDVaFlKcLPIbOdVx XGYgQXJpYWwgXFxmbCBcXG 3ubYoosOLxyyVOKgORrL8d g8rkFXwjb6SkrENoDJExbz ANClxlcGljTmVzdERvYzEg DQpcbHRycGFyXGxpbjBccm luMCANClxsdHJjaFxjZjFc ZnMyMCBSZWNlaXZlZCBpbi Qek0AsDTulbzXtJQHqsQZc IHdpdGggdGhlIHBhdGllbn SqE8J6vdMsPT7nAEQxUYTu V8VlROStM83bVGKvvK7kSH ItYF5uOVn8YTCdKYHaEsww T1BwsVTrPySxATUuCQ28bE NltJvaHYXdkxDsp1F2OKLd m5O0LMBpsiDsrCLcaLLyuJ Kjh6TicB5mFKQiTPKfJQOy MyBjbSBpbiBncmVhdGVzdC SbpL5pjuGcg66jTQymzCVt KHHsPKQipYHorUO4EGCiaI 7ftJ40zyRjypNXFK8qqGUg HT8IYSTswyELIziwHhJaLj MyMiANClxwbGFpblxlcGlj QhXjjFUxFiWybYgaeH71YL LgwJDjCYY0UO9vEXQfpzej ZHSoCLNzURU5TMiyjE55mZ CkWTPuFYHdtEYwgJ7Uj1hm NHNgcEZjDUB6ZEcslFGsYQ XwEPLaJZwhEdBrI1RONPEm BUrjTVNgQmYfPHq8YEayV6 ZDALOqEWBdMOT5KqNoBdC2 MBv3UILXFd6cFcFuISOuOj YdDHW7UDAdXJulyFYxKBid ZiBBcmlhbCBcXGZsIFxcbm I9NCDyMRRooWygeU6nMq0x GC7vqTImBCzqk9ThlOOlND BhciANClxlcGljTmVzdERv YzEgDQpcbHRycGFyXGxpbj BccmluMCANClxsdHJjaFxj ZjFcZnMyMCBSZWNlaXZlZC SrrcZkr4PqHHfhwmMlRBMz bGVkIHdpdGggdGhlIHBhdG gkizCkP9D8drUbFS5aALXz AUCbA2TsNVIhS84zTPRuzL 2sWPEjLV1nDKj5IAAhEJWt OyzdZ0FdtIOuPuTvc9v4jX IgaXMgYSAwLjIgeCAwLjIg oHCxGyHeG84wyZFnTBWdJw DirMbkm1OkLTXwVQriMB09 BBI1wIeusYKbhcRqjPVbdL K7TUFhdY3bjL23hhPrmzNJ YB5nyWLuQT9LEWSnutGFPe xjZjBcZnMyMiANClxwbGFp blxlcGljTmVzdERvYzBccG rmmY48KGGefDZiERS0RW7y OZYbhiisYROjICUzKKY2PQ idcB27cLFgHMQrXQTzvKVi tW0Lo7poKUZfyAMvEIQ5SO xcaWQgNTEwMDIgXFxkYiAg P3AJHUBrQUtxOIXlZsKqWA w8IAxoS7RGBPXsKABuWJT6 HqItSsP2GLj3FUPDUi4fIm HzHSMzGmI7FSX4PAHqDQet dCAyIFxcZiBBcmlhbCBcXG HiLInwghC9USBrKPWmnQfu lN7hLi7tYSxsuBAwZRRnw1 CrFNp3vg7qmALjYD5ADPPu gVSVQKE4DA4vHNEMRextvQ BdJGHthNlcPKrghO5bKD3O WNy5wsFhZZQdWUnurvRxEB CkU7IkkwTkDVhpJXNght8l wKnzINykIbHaOQTok9i1dX G8iBIekFG9aMKhiOlyWpPh CM0etOHbAC9dUWpkAGwcrt Ddj4NjRC28qRDansFplfPb VYM9RrHoDTjuEGWoxOI7US anBZVeaVyhF5ZsDzAnkjLq EwT3GE3xk88ytLF3mMRojG NfMzSlU28cxuPnRR1cTPK4 kmjoLjT3xLO8xeEvNcRvR3 8ymY2gM0LwOTPqs5FoYEqj BI2ruG0oAIN3wIaecASpbp Thq9DaxLu4lTVrTZfbPJFw gE3bxT1sFgQlWDRsmcANYu ddKUYiDGpiE3HnKRBgImHh SBfcdIcmpB3vICDwP81ou5 ADs9JlAVAgUPjjp2pbwDug q7LcrDCwBUguLNIkdEQeXW dskQ7yOhQyw0oklYr5ALjx cnD4DWNieo4CDzkqHnubbE prw3NjaDUaFJfuREYeGQUl KQqzQDJnIE6MBoPeKHE0KG WnHHIrFLy9BSn4GA2STfAt RXBlWMmfLDn5CrVsLSz8FT nuNG7OVSZeNgCzYyGyGFF3 NTEwMyBcXHQgMiBcXGYgQX LpHKasPGwsqOOpSG1zxZva dfP5RQIlWZvzEQWaKZRjc6 qddTQnMWYwb8HjKUd8nh8h iWCrNH2EIVGroLUQLBU1ZK 9jMSANClxsdHJwYXJcbGlu HJgaeU4dCZ0XAMk8cjSpMN RwAEuyzqOvXWQqQ6TgvqPw CPejFVFxtv7hlLmzANprDm LeBCQxx0o7rLM6gDIsrAV7 iCPixRjsZsFpKZ0keILaMA 0zVRjxUDokfaQdk0LlCZ11 qPTvtpOeznBbKLA0ZjUhGU omJDVqkz90zQ4bgUUtk44d aGFndXMiIGFyZSAyIHRhbi Pjl8Z2MIZns8Y0APGexfWn dKIufAXxyGZwq8DpfA4yOO VwIHRvIDAuMiBjbSBpbiBn vuEyvBYbqSYesX2nbaFix5 4sIHdoaWNoIGFyZSBzdWJt kGJ4QERnqX7kxK85ppWirb MYKD6noGUvGH4YRMBlriJV ClxjZjBcZnMyMiBQaWxhci WQyzw9OQwmGLJpDYRHIVPF VCAoQVNDUCkNClxwbGFpbl xlcGljTmVzdERvYzBccGxh kA33EPLyvRIuNUW2GV9kCN LiqlvqYDUlZRUnYWA3IJit cB65hOSeDKGoXSSxtIRtvC 6JRSRpITG9PCvyhN16vNAc KN8LQDJeKLY8LLKadRYfKS C9DM2xdR9CuE== MICROSCOPIC DESCRIPTION x0wmvQToYHDpgYX5RuLsBE (test code = 3371) Ymp4vru8JolYTsiBCsODel nHHxfqQrrc72bCM8qL83CO 8vRMSwNeP9JDFrbwI5Smj8 BJUjQGLwxAVgT237e5dbm9 tmbpXewQV6hKuwEVBxmgli OaM0XYywHBNhlvyzUHf1VO kqZCEavEI5NSFtrYCcZ6Kw LAQdFK5dhue8MET4GNunPX KxDkO5ZUWrsZZbWSCwxFbo EVngm963INZ3VjUnVOFwam EtbRtfeO1wMrKlQPGDQNXi f2IoWBJbVJRgjiehRRHlBO Bhcn0= [id number] 18:34:08 Test Item Value Reference Range Interpretation Comments Case Report (test code Surgical Pathology = 104) Report Case: [id number] Authorizing Provider: Coby Polanco MD Collected: 07/19/2022 01:33 PM Ordering Location: [facility] Received: 07/19/2022 03:44 PM Pathologist: Carlos Keating MD Specimens: A) - Biopsy, Gastric, bx random r/o H-Pylori B) - Polyp, Gastric, polyp taken with standard forcep C) - Distal Esophagus, bx r/o EOE D) - Proximal Esophagus, bx r/o EOE DIAGNOSIS (test code = r3pknRCzNPNzy3ldTWZliM 3220) FuZzEwMzNcZnRuYmpcdWMx IHtccnRmMVxlcGljOTYwMl rynzJbXEAkrGZoO2Sffyxw URnqUC5eLH4yqXlnsFYkbE IgPGWvWwUyq6qno622tWYb h1ljMCKSitvkfVc4yBvxP2 2pq7N9WbmfT9ksNPJxCRyk QTItPBlqcJHxRVt3XJZdfB VydzEyMjQwXHBhcGVyaDE1 EUEuYZ2mpnvhKCtuYAufJP JnriK7ITUziOEzZ9OwOLRl YC3vqpyyRGS6PHeiESVjGU C7HsQtBURjp6Fieih3BmYk cGFyZFxwbGFpblxmczIwIE TjQQhfWzMxI2HDQINNEZyq MCEjEOSAJH5TI68lTZJvOT OAEX0LR7uoGmTlODAFHEUq NDC6FRYarhYdHDCgOX2AAn DMMC2RG51TIOVLLWGCOBJY TPXJJCLEQRqGD8KPC0ZHXE pDYFlsHYDfE4SaBVKzOFOM BCwJGAxUBQ1DG91OFIZQMF EGHL7ADRQSW57QWgsVJX9A PQZYEMvZS6PQYGKiZZIRG8 JNQUxJVFlccGFyXGNmMSAg OALmImZKWAENUgKlIj7JZD bTYObVF7MZI8PSIuDBIJaJ KapzZ4XVIQ8YP79WKFQAHQ mpGWMMPDVANxxiFPGaCT1i RV2NZ1TYEWILGVODTlWUOy XUR9SEDvPQON0KKPKVDAZM CPGaQAKDC6NGSNOYEWjiPU MMLBhVVJ3UDTtdNWFjhNUl KZZoPNBJH51OZ9kaFDRKGP iPXTZNGH9VT5u9FCBdrfTe CDItRdJOMBhOYHzURI8TTY ICOZoWKVTqmnnfBUOlS9Fy PCKbSGWDJ4RDQXbYInbuJV tFYYZFPEDUSW2RI3m3EZPe ciAgLSAgUkVGTFVYIEVTT1 BIQUdJVElTXHBhciAgLSAg TvOGQCQWXzYmTa9NGBSRN9 uIW8PWLAsXDUjiTFQyaNIc MDWnTBNPJ3QGJVhMIyefCJ MVBNlWVChtTZJIS1QTHAqm cGFyICAtICBSRUZMVVggRV HKVCgMD3nCFGYgkECwJKDx QZKUFVnQONwBYMAFS7HmVQ 8OKU2OXQwLIEwUZHBzin30 NWB8BdSww7G8VBI4QPAePW Xlf2anTPTfgIKaEwXzJoFh ZnRuYmpcdWMxXGRlZmYwe1 vhu111kWDje3kaRHJbPiJ6 dYMzTDJvxREsL804LWOaDX lrt7atu9SuQJUazRWbe8H9 JGLYcphpiSw7kLadL74ys0 A6CwgxM0tjVOZtFSVjU2Zy IN1bKJLpIry6KIK5QSF7AA KwHTGtI6DbVE4gOEKlpHQk ZYi8s6qgjTljTDUrKIJ2e5 qpBSdoiyNuJK6nnh9tqKt3 g7rlgeFbPPKmSXOcwXGURB IaH4KkaQzqWf3nwYo2gRuw UtnvDWS2Tgz0EX4cns44iy n5nRmyVNKfctmdTnX7UNez RHNpwhkxODz7TCojFHDtlW J3EPZtbUXgW8QeTZGcIX1s pyl4EPX1NNqkKOEgCmK1VH ZdeTJnCSRviCyvGEbbn752 FGF5XcLpFJ6yJ4Rir9H7fN 9maXRcZGVmdGFiNzIwXGZv me5ppZRoKOfkx3IsFBE6fm N6kHJmyIJmQUKqIyT9MYiu UB8nos17BEZpQPY4ym6ohE OckUbgvrHlgNVnOEtdV9Ei IHRoe959FUUuN6JoPEBlo7 Y4xaDtUmNyTKKfzCA5jaU3 VKYyYG8jqopux8hiFJbqYU jvIWIajfD1adA3ZJLmmERe F3EacV0zVRVvHE3rwvvhe0 smFZH3RByjAFGlVBJ9NaMe NMBfh5Ahhql8PhMfg1IvzW CoVQndJ14jb157MFMzkiVa T1avaRMhwwuteJYfasonQW fcwpN9HTRlTAzttyukLXSr ADcoQ6lkIaHcXPSiiTtpSL kzw4DnEJZtVSPbMvXifDLf QGKeCre2MARkrPBiIGBbMu RmN1ikwgnkRmFTIETje0fr D8uzsAPVtSTzD5VzSMyvzn EnZMvbGAocCFF0ZJJ0Ia65 TiS5VRJzbb93 CPT Code(s) (test code l8mcmNGnUQFljVD1HuYmBM = 3357) Mnn7cpk3DosQMarKVeYHfd vEFbsxFtjl06bPB5iK94IK 1gLOVxDnF3XENyrfS7Ndc0 ZRErFQUoiXGpG965c4ifc8 aowcFkgPW0pKmrRTZnzuvk YeK4GZwxUSHhvokyODy6DW kzKYNptPD8ZFKvgVDvM9Kt UCXjZO4dqjh3WLQ2XBuyGV NqGzA6EBWtuLBdZIHrnWyj VJbau365RYF3RaMyQHAmda VklEjbzS2eVjQbJYV0FLGl QDm7PETxhe4= CLINICAL HISTORY (test w1tsbMMsTUHdqSW1KbXwNW code = 3356) Mns9imp9XgzPKciMOsDWav mXFebbTvbj48eDZ2yY01ZQ 6fBYLhFjL9BKOyiaH5Asp1 QOYxKPRqfRCiX765f5bgq1 srycEzoEM3XBUjWWAyU7Yy UH7dYYPueNVbB09jnGDwAU S4IYGxWNTfeTPfSKMhCMO9 LIJjvNMfE2eySYGxMY8iuo dxKQvxANccGFZrlZY1LNCm oVTvJ5MmXQEtCPqeSGQque c8KhAxTn4khUNoxKarHQwv YXJkXHJpMVxwbGFpblxmcz JfTLFwMQJIXED6rh5ym28r qBNaYWEsMRBjZwb8zKNeeN JgFESwKFDye2lbxzSiLJ1n YDDfh1TdHSZayD1xCQUsyw 0= GROSS DESCRIPTION (test d6zntANxUWYjnAUCWZKfY3 code = [id number]) glxzFtMXBllSYtT2Jwjoeb JZovSA0zMA6gaLtubHTdgE BnBN2MWEEnDaSrDQGboNFe npSdAfXiOZHcwTCowQL7RH IqSN2tpwxqYJshBSzjDTUr cpE9OXVseFLeR5JfWYRwYV 6qaivmKTS2RByzzY0lijSV KisqEh7adRVjaDeaLjUpVh NoYXJzZXQwXGZuaWwgQXJp SKe0gA9XWemrX50gb1V8Py s5WTIhESBxU2LrIZ7cKJEc lDEqF59TJywqXWV7CQPLPi beJPLyLB5Tw2nsTPDrwDPq XKC6SHgzyFAiISIeGKCqAA z6NCAtFJtgcIUuVT4uwWdt HcrauXhys4VejLHtTOvjJG KzNFAuEJxdXKFyIA9YDnRe LWQ1KJZhBTZlIVt4KTa6CS 8PCrJvUSCtXWvgQMg2CDJo DZd7HYlaJE5LHZKzSeChDr Y9ZcB4CWLlMnFlBZWrWaYp XGYgQXJpYWwgXFxmbCBcXG 0sgJgjaKFlbqNPRgNIpO0i p2xiGRthy7FwrLKzBAVoif ANClxlcGljTmVzdERvYzEg DQpcbHRycGFyXGxpbjBccm luMCANClxsdHJjaFxjZjFc ZnMyMCBSZWNlaXZlZCBpbi Dvg6RmROibutLmJNVqrECl IHdpdGggdGhlIHBhdGllbn NwX6H0toKpNY7eQIXpWMYo D1TbYZLkH56rCLYnoB1mRR DeKA1xLFb7ZHVuHVTzRhqu E6SkuUHvHzDdIRZlSW41tS TnpEsgESJqkbJae1X0UUJm d3A0HRSuerEvuPMaiKAqnV Yus7CaqC0xQJFzZWIiEQUv MyBjbSBpbiBncmVhdGVzdC RtsE9dpvFgt31nKHvxhWQp MPWyPOGmxOGvfNS2DARrrM 0dmE53koVspaWRJZ6zbVBm GQ3BRFZmacXYLxhtDdIwCw MyMiANClxwbGFpblxlcGlj VjGtbEKnVwUieIlkvD21JV RgvKFeMWG7TC3rCRCvlcaq QSHxHTBxJMW5PWglrP50aQ VaEVZfTWPmvJQhbB2Kl3ii DPSbzWCoIEA4GXqrtXXuWA YnUUUeUSyjOoIsT7IHVWOg DYfbYOSkAsSjPVl4PZadC5 OXVIKqGLFrPII6BxIqMiX8 UAb7KDZBHe5qWqGyZAVvDi JfSQJ5BBDzESraeDCwTTfl ZiBBcmlhbCBcXGZsIFxcbm O6YDMeSCXqbLnmhB3jAp7m YP5zkHUvNLkyc9SkrUYmMX BhciANClxlcGljTmVzdERv YzEgDQpcbHRycGFyXGxpbj BccmluMCANClxsdHJjaFxj ZjFcZnMyMCBSZWNlaXZlZC ShtsQyd0GgHQzdkdUlBTFa bGVkIHdpdGggdGhlIHBhdG xebsEuN6A2eyJnZQ6wSCKe RHIoU2WqVJHvB73vAXMgqO 8zNZTvQB7pHBa0TVNjOSHy VydoZ6SxnMMrXhIfv4i4uO IgaXMgYSAwLjIgeCAwLjIg aEUkWfAeH20blOYqXGJdAs IppSjdd0WnISHuZYrkVR59 NWS7wGprxDAclkBzkMTpvL N7XWSnhA3myH78pqOrgcAM BU5ltTZhAG2CFYWrtwWTSd xjZjBcZnMyMiANClxwbGFp blxlcGljTmVzdERvYzBccG xmbV12TCSgiYZhIEA4MP5j KYWqcnliWUWbVTNrTDX0HD aoxG79kIVhDPWvNMPkbZLf sL5Dy0giVXLmtZNmYCO9OT xcaWQgNTEwMDIgXFxkYiAg A3YDJWAkHAqwIEMqLdXlIY q2AGgbC1XFOJQuSWAiIIE2 RtMbTuS5RSf1QRNKMf9yLi ZeTTKvYlL3LRL6GCDbTOrg dCAyIFxcZiBBcmlhbCBcXG GyQBlelcV7DRHbBGGagSfc eV2kFh4vJJslsZXxMDQba4 KpHOb3og7vhHPyPH9BCBKj cTLMVME5LS5hQNIYXtilaR DhEBIchRkdFFurmT4bYE8K SXt0eeXdXURcQOhwkbNmQH FxC3HcxwUlHEumAEMikb7u yYibJKfxJhGyTRVqa3e8tB O8uZImdPL7sUWeuHhsQwWp YL0awKBmYK7nIAusLRqfsx Kwf4LcHK72mVLeptBjtwSc SLF3WyAnDAtkVUImjPD5CO ruBOHrcRdwY0LgSgFqtoXk XlL3LQ5dq90imYI6uEVmbO MkWfYwF02jlcEeJC5eGFN5 kzggIcO8jOT5nvPfBzEoG2 6jyA9yI0DoCKItl6OvTCtf SC9iaA4vSUA4xLyvrFZdli Xnq9WwzVj3nNQyNXbdUZGy sB5sdC8rSdGsQUNujbLWKh akXJLsEGkhM9EdRHYbCoIb HCobfSdiwH1vRKOpG02en6 UPy8YnKSArNIvgf9cmlWrj p0TcfPRdGWuqFPWkxFFqVT iibG3nXzZrw1biiLt9SGpz ofD9CNEuyg5PLqzdQnjjyL nmo3LglEPlOKhlQIHiXDEc XWloCRBaGI5SVbNbSCY3PU NaNDCeJPq6WNc5VP9GRcDk BOHyFZglVUw7YkEvBMz6KX kwKO4OFMZvNrPkKjZtLZK1 NTEwMyBcXHQgMiBcXGYgQX FvQJhbBEzavSSzHA6hhOvc szM3IKQfKMviCMCuKAZdd9 svrJDvDACsz6QoYGh7oe3l dJJmVN0ELURvaDVVRNL8XC 9jMSANClxsdHJwYXJcbGlu DEiriQ6bUT6LRMr1kvIsSO NuKTkgmrRsORQxX7UetqAl RIwvKVMjfc4qkNxwQWdhRv AwICJmb5n7bAQ7gJYrzMQ5 eWMtcMwhRoWrWF4lrPHdFC 6wBRvkQRejwvEkr4PeEN25 jFIpveLjchZxLIS3OoPbHJ lzSCQdyp74sV0pbSUmg55n aGFndXMiIGFyZSAyIHRhbi Pug6W5PKDfl4Z9BDZfapIw vKJzrWAynTEaj1DgpT8cCK VwIHRvIDAuMiBjbSBpbiBn daSavVHqpEJbgU9okiFrl7 4sIHdoaWNoIGFyZSBzdWJt eZD4HZKgtN3sgD85coGocf FZIO2okAYxMA2YEAQkolPA ClxjZjBcZnMyMiBQaWxhci SOtoz9WUlrVZEsQYRIJHXA VCAoQVNDUCkNClxwbGFpbl xlcGljTmVzdERvYzBccGxh jJ96FQBbfTDlOBC6UM1iLY SzovffZSFyEXMcZTB4UYgv fY06vRBpNEBqVZAfhUZpfG 6AEQEtEAE8SUyqrA47dJQo ZN8ZASEdZPS3ZWDaaPMcLA I0ZQ2uyE0WjV== MICROSCOPIC DESCRIPTION n4xshQLkVOGncHK5OlWlCW (test code = 3371) Enh5tiz8BovLUwdYHlFIei dRCovtMifx32xCL6dJ88WJ 5fSAKtEuK1JCPzcqU0Pik9 HTYrJFIosQOnI773f4tfn3 hpqxHphTJ0hPmePTIhfasp DiF9IUykRCJgstpyCVw5MI vpNKZvgHS3BQKjlIMbD6Uk QDQwLL0qkfd9TSH8MPdwQD MtUuS7QGVkdROdGVKrdLds UAaiz502BWC3TqSxAKDgxy VoyXfvfX6nIxIdVETHTDUf z8XhBCHhTVOaxyqgPRTcGB Bhcn0= [facility] [id number] 18:34:08Surgical Pathology Report Case: [id number] Authorizing Provider: Coby Polanco MD Collected: 07/19/2022 01:33 PM Ordering Location: [facility] END[facility] Received: 07/19/2022 03:44 PM Pathologist: Carlos Keating MD Specimens: A) - Biopsy, Gastric, bx random r/o H-Pylori B) - Polyp, Gastric, polyp taken with standard forcep C) - Distal Esophagus, bx r/o EOE D) - Proximal Esophagus, bx r/oEOE A. STOMACH, RANDOM BIOPSIES: - ANTRAL MUCOSA [...] FOR EOSINOPHILIA Signing Pathologist Direct Phone Line: [phone] signed by Carlos Keating MD on 07/21/2022 at 6:34 [id number] reflux disease, colon cancer screeningA. Biopsy, Gastric.Received [...] to 0.2 cm in greatest dimension, which aresubmitted in toto in D1.BRIJESH Landry, HT (ASCP)Performed.BASIC METABOLIC [id number] 13:05:41 Test Item Value Reference Range Interpretation [...] (test code = 697) EGFR (BEAKER) 8 Interpretati on of eGFR (test code = mL/min/1.73 values [...] not appl icable for dialysis patien ts Financial Sales Consultant ID - GERRY MPROTHROMBIN TIME/[id number] 12:44:32 Test Item Value Reference Range Interpretation Comments PROTIME (BEAKER) 15.6 seconds 11.9-14.2 H (test code = 759) INR (BEAKER) (test 1.32 See_Comment [Automat ed message] code = 370) The system Carbonated Content generated this result transmitted ref erence range: <=5.90. The reference range was not used to int erpret this result as normal/abnormal . RECOMMENDED COUMADIN/WARFARIN INR THERAPY RANGESSTANDARD DOSE: 2.0 - 3.0 Includes: PROPHYLAXIS for venous thrombosis, systemic embolization; TREATMENT for venous thrombosis and/or pulmonary embolus.HIGH RISK: Target INR is 2.5-3.5 for patients with mechanical heart valves.POC-Glucose [id number] 12:33:07 Test Item Value Reference Range Interpretation Comments POC-Glucose Meter (test 193 mg/dL 70-110 H : TE STED AT [facility] code = 1538) [address] [place], [address]: Financial Sales Consultant/Techni nuha ID = [id number] for FernandoShellie raman a Lab Interpretation (test Abnormal code = 19726-0) [facility] [id number] 12:33:07 Test Item Value Reference Range Interpretation Comments POC-Glucose Meter (test 193 mg/dL 70-110 H : TE STED AT [facility] code = 1538) [address] [facility], [address]: Financial Sales Consultant/Techni nuha ID = [id number] for ElmaShellie raman a Lab Interpretation (test Abnormal code = 68761-5) [facility] [id number] 12:33:07 Test Item Value Reference Range Interpretation Comments POC-Glucose Meter (test 193 mg/dL 70-110 H : TE STED AT [facility] code = 1538) [address] [facility], [address]: Financial Sales Consultant/Techni nuha ID = [id number] for FernandoShellie raman a Lab Interpretation (test Abnormal code = 69694-2) [facility] [id number] 12:33:07 Test Item Value Reference Range Interpretation Comments POC-GLUCOSE METER 193 mg/dL 70-110 H : TESTED A T [facility] 6720 (BEAKER) (test code [facility], = 1538) [address]: Financial Sales Consultant/Techni nuha ID = [id number] for InShellie evangelistaa Potassium-Stat [id number] 12:29:14 Test Item Value Reference Range Interpretation Comments Potassium (test code = 2823-3) 5.6 meq/L 3.6-5.5 H Lab Interpretation (test code = Abnormal 69377-3) [facility] [id number] 12:29:14 Test Item Value Reference Range Interpretation Comments Potassium (test code = 2823-3) 5.6 meq/L 3.6-5.5 H Lab Interpretation (test code = Abnormal 50729-2) [facility] [id number] 12:29:14 Test Item Value Reference Range Interpretation Comments Potassium (test code = 2823-3) 5.6 meq/L 3.6-5.5 H Lab Interpretation (test code = Abnormal 35735-8) [facility] HospitalPOT[facility]SIUM-STAT [id number] 12:29:14 Test Item Value Reference Range Interpretation Comments POTASSIUM (BEAKER) (test code = 5.6 meq/L 3.6-5.5 H 379) [id number] 12:28:40 Test Item Value Reference Range Interpretation Comments HEMOGLOBIN (BEAKER) (test code = 10.1 GM/DL 13.7-17.5 L 410) Financial Sales Consultant ID - [id number]-GLUCOSE [id number] 12:02:55 Test Item Value Reference Range Interpretation Comments POC-GLUCOSE METER 184 mg/dL 70-110 H : TESTED A T [facility] 6720 (BEAKER) (test code = [place], 1538) [address]: Financial Sales Consultant/Techni nuha ID = [id number] for STARRELÍAS ZAIDI (MANUAL DIFFERENTIAL)2022-01-26 10:20:54 Test Item Value Reference [...] (test code Normal = 762) HEMOGLOBIN AND [id number] 08:16:51 Test Item Value Reference Range Interpretation Comments HEMOGLOBIN (BEAKER) (test code = 8.7 GM/DL 13.7-17.5 L 410) HEMATOCRIT (BEAKER) (test code = 28.5 % 40.1-51.0 L 411) CBC WITH PLATELET COUNT + MANUAL [id number] 08:16:51 Test Item Value Reference Range Interpretation [...] = 413) RAD, CHEST, 1 VIEW, NON [id number] 07:40:00Reason for exam:->post deviceShould this be performed at the bedside?->Yes [facility] 1950 Sex: MFINAL REPORT TECHNIQUE: Frontal view of the chest. INDICATION: post device COMPARISON:Prior day. DISCUSSION:Limited evaluation due to portable technique. Lines and hardware: Stable.Heart and mediastinum: Stable.Lungs and pleura: Stable small to moderate left effusion/basilar consolidation. No pneumothorax. Trace right effusion. Mild vascular prominence.Soft tissues and bones: No acute abnormality. IMPRESSION:Stable exam Signed: Lexa Carvajalort Verified Date/Time: 01/26/2022 07:40:01 Reading Location: [facility] Radiology Reading Room POCT-GLUCOSE [id number] 07:35:30 Test Item Value Reference Range Interpretation Comments POC-GLUCOSE METER 124 mg/dL 70-110 H : TESTED A T [facility] 6720 (BEAKER) (test code = [place], 1538) [address]: Financial Sales Consultant/Techni nuha ID = [id number] for STARRELÍAS ZAIDI BASIC METABOLIC [id number] 05:25:26 Test Item Value Reference Range Interpretation [...] S NOT APPLICABLE FOR DIALYSIS PATIEN TS. Financial Sales Consultant ID - GERRY MRAD, CHEST, 1 VIEW, NON [id number] 03:24:00Reason for exam:->post deviceShould this be performed at the bedside?->Yes [facility] 1950 Sex: MFINAL REPORT RAD, CHEST, [...] Sanchez MDReport Verified Date/Time: 01/26/2022 03:24:25 POCT-GLUCOSE [id number] 22:00:57 Test Item Value Reference Range Interpretation Comments POC-GLUCOSE METER 102 mg/dL 70-110 : Notified RN/MD: ([facility]) (test code = TESTED AT [place] [address] 1538) [facility], [address]: Financial Sales Consultant/Techni nuha ID = [id number] for SA KIAN PACHECO POCT-GLUCOSE [id number] 16:18:42 Test Item Value Reference Range Interpretation Comments POC-GLUCOSE METER 117 mg/dL 70-110 H : TESTED A T [facility] 6720 ([facility]) (test code = [facility], 1538) [address]: Financial Sales Consultant/Techni nuha ID = [id number] for Me aparnaHailee bhaktaody POCT-GLUCOSE [id number] 14:22:36 Test Item Value Reference Range Interpretation Comments POC-GLUCOSE METER 120 mg/dL 70-110 H : TESTED A T [facility] 6720 ([facility]) (test code = [facility], 1538) [address]: Financial Sales Consultant/Techni nuha ID = [id number] for CA Myron PETER BASIC METABOLIC [id number] 12:15:22 Test Item Value Reference Range Interpretation [...] S NOT APPLICABLE FOR DIALYSIS PATIEN TS. Financial Sales Consultant ID - DBPROTHROMBIN TIME/[id number] 11:46:20 Test Item Value Reference Range Interpretation Comments PROTIME (BEAKER) 18.5 seconds 11.9-14.2 H (test code = 759) INR (BEAKER) (test 1.57 See_Comment [Automat ed message] code = 370) The system [employer] h generated this result transmitted ref erence range: <=5.90. The reference range was not used to int erpret this result as normal/abnormal . RECOMMENDED COUMADIN/WARFARIN INR THERAPY RANGESSTANDARD DOSE: 2.0 - 3.0 Includes: PROPHYLAXIS for venous thrombosis, systemic embolization; TREATMENT for venous thrombosis and/or pulmonary embolus.HIGH RISK: Target INR is 2.5-3.5 for patients with mechanical heart valves.POCT-GLUCOSE [id number] 17:48:28 Test Item Value Reference Range Interpretation Comments POC-GLUCOSE METER 92 mg/dL 70-110 : TESTED A T [facility] 6720 (BEocto[employer]) (test code = [facility] DutyCalculator [facility], 1538) [address]: Financial Sales Consultant/Techni nuha ID = [id number] for Vinny Bar POCT-GLUCOSE [id number] 12:06:44 Test Item Value Reference Range Interpretation Comments POC-GLUCOSE METER 170 mg/dL 70-110 H : TESTED A T [facility] 6720 ([employer]oct[employer]) (test code = [facility] [employer] [facility], 1538) [address]: Financial Sales Consultant/Techni nuha ID = [id number] for ZA VALA, ERANDY POCT-GLUCOSE [id number] 10:31:17 Test Item Value Reference Range Interpretation Comments POC-GLUCOSE METER 183 mg/dL 70-110 H : TESTED A T [facility] 6720 ([employer]) (test code = [facility] [employer] [facility], 1538) [address]: Financial Sales Consultant/Techni nuha ID = [id number] for ZA VALA, ERANDY HEMOGLOBIN [id number] 09:56:41 Test Item Value Reference Range Interpretation Comments HEMOGLOBIN A1C 5.4 % See_Comment [Automated m essage] ELECTROPHORESIS (BEAKER) The system which (test code = 3811) generated this result transmitted ref erence range: <=5.6%. The reference range was not used to int erpret this result as normal/abnormal . "The A1c is measured using a NGS-certified method. HbA1c value equal to or greater than 6.5% as thediagnosis cutoff for diabetes. An HbA1c value of 5.7- 6.4% indicates increased risk for diabetes (prediabetes)."Financial Sales Consultant ID - ADMPOCT- GLUCOSE [id number] 07:37:27 Test Item Value Reference Range Interpretation Comments POC-GLUCOSE METER 91 mg/dL 70-110 : TESTED A T [facility] 67[address] (BEAKER) (test code = [address] [place], 1538) [address]: Financial Sales Consultant/Techni nuha ID = [id number] for AURELIA MOSLEY CBC (HEMOGRAM ONLY)2022-01-21 06:44:48 [...] (test code = 413) TSH/FREE T4 IF [id number] 06:40:29 Test Item Value Reference Range Interpretation Comments THYROID STIMULATING HORMONE 2.427 uIU/mL 0.350-4.940 (BEAKER) (test code = 772) Financial Sales Consultant ID - GERRY MCOMPREHENSIVE METABOLIC [id number] 06:39:40 Test Item Value Reference Range Interpretation [...] S NOT APPLICABLE FOR DIALYSIS PATIEN TS. Financial Sales Consultant ID Tacos GARRETT MPROTHROMBIN TIME/[id number] 06:09:35 Test Item Value Reference Range Interpretation Comments PROTIME (BEAKER) 31.4 seconds 11.9-14.2 H (test code = 759) INR (BEAKER) (test 3.07 See_Comment [Automat ed message] code = 370) The system Carbonated Content generated this result transmitted ref erence range: <=5.90. The reference range was not used to int erpret this result as normal/abnormal . RECOMMENDED COUMADIN/WARFARIN INR THERAPY RANGESSTANDARD DOSE: 2.0 - 3.0 Includes: PROPHYLAXIS for venous thrombosis, systemic embolization; TREATMENT for venous thrombosis and/or pulmonary embolus.HIGH RISK: Target INR is 2.5-3.5 for patients with mechanical heart valves.POCT-GLUCOSE [id number] 21:26:30 Test Item Value Reference Range Interpretation Comments POC-GLUCOSE METER 167 mg/dL 70-110 H : TESTED A T [facility] 6720 (BEAKER) (test code = [facility], 1538) [address]: Financial Sales Consultant/Techni nuha ID = [id number] for WISAM BAI POCT-GLUCOSE [id number] 18:20:34 Test Item Value Reference Range Interpretation Comments POC-GLUCOSE METER 133 mg/dL 70-110 H : TESTED A T [facility] 6720 (BEAKER) (test code = [facility] [employer] [facility], 1538) [address]: Financial Sales Consultant/Techni nuha ID = [id number] for BETTE TOLBERT CBC W/PLT COUNT & AUTO [id number] 14:32:12 Test Item Value Reference Range Interpretation [...] (test code = 2801) HEPATITIS B SURFACE [id number] 13:05:05 Test Item Value Reference Range Interpretation Comments HEPATITIS B SURFACE ANTIGEN (2) Nonreactive Nonreactive (BEAKER) (test code = 2585) Specimen is considered negative for HBsAg.HEMOGLOBIN [id number] 12:58:20 Test Item Value Reference Range Interpretation [...] 5.7- 6.4% indicates increased risk for diabetes (prediabetes)."Financial Sales Consultant ID - ADMHIGH SENSITIVITY TROPONIN [id number] 12:49:22 Test Item Value Reference Range Interpretation Comments HIGH SENSITIVITY 7 pg/ml See_Comment [Automated message] TROPONIN I (test code = The system which 1091281) generated this result transmitted ref erence range: <=35. Th e reference range was not used to interpr et this result as normal/abnormal . Financial Sales Consultant ID - BSThe HANDBAG OPERATOR STAT High Sensitivity Troponin-I results should be used in conjunctionwith other diagnostic information such as ECG, clinical observations and information, and patient symptoms to aid in the diagnosis of AR.POCT-GLUCOSE [id number] 10:34:43 Test Item Value Reference Range Interpretation Comments POC-GLUCOSE METER 116 mg/dL 70-110 H : TESTED Toby T [facility] 6720 [facility] (test code = [place], 1538) [address]: Financial Sales Consultant/Techni nuha ID = [id number] for AURELIA NATH 2D Echo W/Doppler(CW/PW/Color)2022-01-20 10:19:28Ejection FractionSLEH ECHO HEARTLAB [facility] Echo W/Doppler(CW/PW/Color)2022-01-20 10:19:28Ejection FractionSLE ECHO HEARTLAB [facility] HospitalLIPID [id number] 08:15:45 Test Item Value Reference Range Interpretation Comments TRIGLYCERIDES (BEAKER) (test code = 116 mg/dL 540) CHOLESTEROL (BEAKER) (test code = 68 mg/dL 631) HDL CHOLESTEROL (BEAKER) (test code 22 mg/dL = 976) LDL CHOLESTEROL CALCULATED ([facility]) 23 mg/dL (test code = 633) Triglyceride Reference Range: Low Risk <150 Borderline 150-199 High Risk 200- 499 Very High Risk >=500Cholesterol Reference Range: Low Risk <200 Borderline 200-239 High Risk >240HDL Cholesterol Reference Range: Low Risk >=60 High Risk <40LDL Cholesterol Reference Range: Optimal <100 Near Optimal 100-129 Borderline 130-159 High 160-189 Very High >=190 Financial Sales Consultant ID - BSBASIC METABOLIC [id number] 05:26:52 Test Item Value Reference Range Interpretation [...] S NOT APPLICABLE FOR DIALYSIS PATIEN TS. Financial Sales Consultant ID - PIAYA LPROTHROMBIN TIME/[id number] 04:50:31 Test Item Value Reference Range Interpretation Comments PROTIME (BEAKER) 33.8 seconds 11.9-14.2 H (test code = 759) INR (BEAKER) (test 3.37 See_Comment [Automat ed message] code = 370) The system Carbonated Content generated this result transmitted ref erence range: <=5.90. The reference range was not used to int erpret this result as normal/abnormal . RECOMMENDED COUMADIN/WARFARIN INR THERAPY RANGESSTANDARD DOSE: 2.0 - 3.0 Includes: PROPHYLAXIS for venous thrombosis, systemic embolization; TREATMENT for venous thrombosis and/or pulmonary embolus.HIGH RISK: Target INR is 2.5-3.5 for patients with mechanical heart valves.POCT-GLUCOSE [id number] 21:28:24 Test Item Value Reference Range Interpretation Comments POC-GLUCOSE METER 178 mg/dL 70-110 H : TESTED Toby T [facility] 6720 (BEAKER) (test code = [place], 1538) [address]: Financial Sales Consultant/Techni nuha ID = [id number] for Melly (contract)Ciera chucho [id number] 20:02:18 Test Item Value Reference Range Interpretation Comments POTASSIUM (BEAKER) (test code = 3.7 meq/L 3.5-5.1 379) Financial Sales Consultant ID - BSPOCT-GLUCOSE [id number] 18:51:19 Test Item Value Reference Range Interpretation Comments POC-GLUCOSE METER 161 mg/dL 70-110 H : Notified RN/MD: TESTED (BEAKER) (test code AT [facility] [address] = 1538) [place], [address]: Financial Sales Consultant/Techni nuha ID = [id number] for DESTINEE MCMANUS HIGH SENSITIVITY TROPONIN [id number] 15:49:27 Test Item Value Reference Range Interpretation Comments HIGH SENSITIVITY 9 pg/ml See_Comment [Automated message] TROPONIN I (test code = The system which 6034855) generated this result transmitted ref erence range: <=35. Th e reference range was not used to interpr et this result as normal/abnormal . Financial Sales Consultant ID - BSThe HANDBAG OPERATOR STAT High Sensitivity Troponin-I results should be used in conjunctionwith other diagnostic information such as ECG, clinical observations and information, and patient symptoms to aid in the diagnosis of AR.BASIC METABOLIC [id number] 15:47:28 Test Item Value Reference Range Interpretation [...] S NOT APPLICABLE FOR DIALYSIS PATIEN TS. Financial Sales Consultant ID - BSPT/[id number] 15:34:01 Test Item Value Reference Range Interpretation [...] mechanical heart valves.CBC W/PLT COUNT & AUTO [id number] 15:25:01 Test Item Value Reference Range Interpretation [...] = 2801) RAD, CHEST, 1 VIEW, NON [id number] 11:42:00Reason for exam:->chest painShould this be performed at the bedside?->Yes [facility] 1950 Sex: MFINAL REPORT TECHNIQUE: Frontal [...] MDReport Verified Date/Time: 01/19/2022 11:42:07 [facility] ECG/EKG [id number] 10:57:00 Test Item Value Reference Range Interpretation Comments LIS (test code = LIS) Alexandra Sylvester MD 01/25/2022 9:28 AMECG/EKG Interpretation Date/Time: 01/19/2022 10:57 AMPerformed by: Alexandra Sylvester MDAuthorized by: Alexandra Sylvester MD The ECG was interpreted by ED physician. This ECG was not compared with previous ECG(s).The ECG is interpreted as paced. Heart rate is 60 BPM.Abnormal conduction noted: left bundle branch block.[place] is left. Clinical Impression: abnormal ECGECG reviewed and does not meet STEMI criteria. Lab Interpretation Abnormal (test code = 70077-7) [facility] [id number] 10:57:00 Test Item Value Reference Range Interpretation Comments LIS (test code = LIS) Alexandra Sylvester MD 01/25/2022 9:28 AMECG/EKG Interpretation Date/Time: 01/19/2022 10:57 AMPerformed by: Alexandra Sylvester, MDAuthorized by: Alexandra Sylvester MD The ECG was interpreted by ED physician. This ECG was not compared with previous ECG(s).The ECG is interpreted as paced. Heart rate is 60 BPM.Abnormal conduction noted: left bundle branch block.[place] is left. Clinical Impression: abnormal ECGECG reviewed and does not meet STEMI criteria. Lab Interpretation Abnormal (test code = 00173-7) [facility]PO[facility] [id number] 12:20:51 Test Item Value Reference Range Interpretation Comments POC-GLUCOSE METER 144 mg/dL 70-110 H : TESTED A T [facility] 6720 (BEAKER) (test code [facility], = 1538) [address]: Financial Sales Consultant/Techni nuha ID = [id number] for BASIM LUNDY POCT-GLUCOSE [id number] 10:19:44 Test Item Value Reference Range Interpretation Comments POC-GLUCOSE METER 130 mg/dL 70-110 H : TESTED A T [facility] [address] (BEAKER) (test code = [place], 1538) [address]: Financial Sales Consultant/Techni nuha ID = [id number] for Khoi Maguire BASIC METABOLIC [id number] 09:21:46 Test Item Value Reference Range Interpretation [...] S NOT APPLICABLE FOR DIALYSIS PATIEN TS. Financial Sales Consultant ID - EMERSONPROTHROMBIN TIME/[id number] 08:51:30 Test Item Value Reference Range Interpretation Comments PROTIME (BEAKER) 19.2 seconds 11.9-14.2 H (test code = 759) INR (BEAKER) (test 1.64 See_Comment [Automat ed message] code = 370) The system Carbonated Content generated this result transmitted ref erence range: <=5.90. The reference range was not used to int erpret this result as normal/abnormal . RECOMMENDED COUMADIN/WARFARIN INR THERAPY RANGESSTANDARD DOSE: 2.0 - 3.0 Includes: PROPHYLAXIS for venous thrombosis, systemic embolization; TREATMENT for venous thrombosis and/or pulmonary embolus.HIGH RISK: Target INR is 2.5-3.5 for patients with mechanical heart valves.CBC W/PLT COUNT & AUTO [id number] 08:39:28 Test Item Value Reference Range Interpretation [...] PERCENT (BEAKER) (test code = 2801) POCT-GLUCOSE [id number] 07:29:31 Test Item Value Reference Range Interpretation Comments POC-GLUCOSE METER 111 mg/dL 70-110 H : TESTED A T [facility] 6720 ([facility]) (test code [facility], = 1538) [address]: Financial Sales Consultant/Techni nuha ID = [id number] for RADHA MURRY POCT-GLUCOSE [id number] 21:54:10 Test Item Value Reference Range Interpretation Comments POC-GLUCOSE METER 159 mg/dL 70-110 H : Notified RN/MD: ([facility]) (test code = TESTED AT [facility] 67[address] 1538) [facility], [address]: Financial Sales Consultant/Techni nuha ID = [id number] for DORIE REBOLLEDO HEPATITIS B SURFACE [id number] 21:30:30 Test Item Value Reference Range Interpretation Comments HEPATITIS B SURFACE ANTIGEN (2) Nonreactive Nonreactive (AKER) (test code = 2585) Specimen is considered negative for HBsAg.BASIC METABOLIC [id number] 21:16:23 Test Item Value Reference Range Interpretation [...] S NOT APPLICABLE FOR DIALYSIS PATIEN TS. Financial Sales Consultant ID - DBCBC (HEMOGRAM ONLY)2021-06-17 20:44:18 Test [...] 0-0 (BEAKER) (test code = 413) POCT-GLUCOSE [id number] 17:31:27 Test Item Value Reference Range Interpretation Comments POC-GLUCOSE METER 121 mg/dL 70-110 H : TESTED A T [facility] 6720 (BEAKER) (test code = ALPHONSO PANDYA MD, 1538) [id number]: Financial Sales Consultant/Techni nuha ID = [id number] for CARRIE CHRISTIANO RANGEL (CELLAVISION MANUAL DIFF)2021-06-17 14:46:13 Test Item Value [...] CONCENTRATION Adequate (CELLAVISION)(BEAKER) (test code = 3438) Financial Sales Consultant ID - Yi Pepe comments: Slide comments:BASIC METABOLIC [id number] 11:59:33 Test Item Value Reference Range Interpretation [...] S NOT APPLICABLE FOR DIALYSIS PATIEN TS. Financial Sales Consultant ID - PIAYA LPROTHROMBIN TIME/[id number] 11:44:26 Test Item Value Reference Range Interpretation Comments PROTIME (BEAKER) 22.6 seconds 11.9-14.2 H (test code = 759) INR (BEAKER) (test 2.02 See_Comment [Automat ed message] code = 370) The system Carbonated Content generated this result transmitted ref erence range: [...] WBC 0-0 (BEAKER) (test code = 413) [id number] 17:33:00 Test Item Value Reference Range Interpretation Comments GLUBED (test code = 176 MG/DL 70-110 H Performe d by certified GLUBED) self propelled dredge operator at [facility] [id number] 12:22:00 Test Item Value Reference Range Interpretation Comments GLUBED (test code = 272 MG/DL 70-110 H Performe d by certified GLUBED) self propelled dredge operator at [facility] BASIC METABOLIC [id number] 08:28:00 Test Item Value Reference Range Interpretation [...] code = 9.5 mg/dL 8.0-10.5 N CA) [id number] 08:28:00 Test Item Value Reference Range Interpretation Comments MAGNESIUM (test code = MAG) 2.39 mg/dL 1.8-2.4 N CBC W/O [id number] 07:47:00 Test Item Value Reference Range Interpretation [...] fL 7.0-9.0 H = MPV) CBC W/O [id number] 07:38:00 Test Item Value Reference Range Interpretation [...] = PLT) 193 x10 3/uL 150-400 N [id number] 06:25:00 Test Item Value Reference Range Interpretation Comments GLUBED (test code = 138 MG/DL 70-110 H Performe d by certified GLUBED) self propelled dredge operator at [facility] TSH REFLEX TO [id number] 02:17:00 Test Item Value Reference Range Interpretation Comments TSH REFLEX TO FT4 (test code = 1.44 IU/mL 0.42-5.47 N TSHREFLEX) HGBA1C%2020-06-30 02:13:00 Test Item Value Reference Range Interpretation Comments HGBA1C% (test code = HGBA1C%) 5.9 %A1C 4.8-6.0 N CBC W/AUTO [id number] 00:49:00 Test Item Value Reference Range Interpretation [...] REQUIRED (test code NO = MDIFF) RBC [id number] 00:49:00 Test Item Value Reference Range Interpretation Comments POLYCHROMASIA (test code = POLC) SLIGHT POIKILOCYTOSIS (test code = POIK) SLIGHT ANISOCYTOSIS (test code = ANISO) 1+ MACROCYTOSIS (test code = MACR) 1+ TEAR DROP CELLS (test code = TEAR) FEW BASIC METABOLIC [id number] 00:25:00 Test Item Value Reference Range Interpretation [...] 9.3 mg/dL 8.0-10.5 N CA) CBC W/AUTO [id number] 00:16:00 Test Item Value Reference Range Interpretation [...] REQUIRED (test code NO = MDIFF) RBC [id number] 00:16:00 Test Item Value Reference Range Interpretation Comments ANISOCYTOSIS (test code = ANISO) CBC W/AUTO [id number] 00:13:00 Test Item Value Reference Range Interpretation [...] REQUIRED (test code NO = MDIFF) RBC [id number] 00:13:00 Test Item Value Reference Range Interpretation Comments ANISOCYTOSIS (test code = ANISO) AFB CULTURE + SMEAR (NON-SPUTUM)2019-12-09 13:35:00 Test Item Value Reference Range Interpretation Comments CULTURE (BEAKER) (test No acid-fast bacilli code = 1095) isolated in 42 days AFB SMEAR (BEAKER) No acid fast bacilli (test code = 994) seen FUNGUS CULTURE + [id number] 16:48:00 Test Item Value Reference Range Interpretation Comments CULTURE (BEAKER) (test No fungus isolated in code = 1095) 28 days FUNGUS SMEAR (BEAKER) No fungi seen (test code = 1406) RAD, CHEST, 1 VIEW, NON [id number] 11:53:00Reason for exam:->S/p CT surgeryShould this be [...] Britt Verified Date/Time: 11/06/2019 11:53:03 Reading Location: [facility] Radiology Reading Room POCT-GLUCOSE [id number] 11:31:00 Test Item Value Reference Range Interpretation Comments POC-GLUCOSE METER 149 mg/dL 70-110 H : TESTED A T [facility] 6720 (BEAKER) (test code = ALPHONSO PANDYA MD, 1538) 81583: Financial Sales Consultant/Techni nuha ID = [id number] for Alfredo Aguila CBC W/PLT COUNT & AUTO [id number] 10:58:00 Test Item Value Reference Range Interpretation [...] CONCENTRATION Adequate (CELLAVISION)(BEAKER) (test code = 3438) Financial Sales Consultant ID - chimereucheyaUser comments: Slide comments:BASIC METABOLIC [...] S NOT APPLICABLE FOR DIALYSIS PATIEN TS. Financial Sales Consultant ID [employer] PRECIADO [id number] 05:30:00 Test Item Value Reference Range Interpretation Comments PHOSPHORUS (BEAKER) (test code = 3.3 mg/dL 2.3-4.7 604) Financial Sales Consultant ID [employer] PRECIADO [id number] 05:30:00 Test Item Value Reference Range Interpretation Comments MAGNESIUM (BEAKER) (test code = 2.2 mg/dL 1.6-2.6 627) Financial Sales Consultant ID [employer] PRECIADO WPOCT-GLUCOSE [id number] 22:07:00 Test Item Value Reference Range Interpretation Comments POC-GLUCOSE METER 142 mg/dL 70-110 H : TESTED A T [facility] 6720 (BEAKER) (test code = ALPHONSO PANDYA MD, 1538) 21503: Financial Sales Consultant/Techni nuha ID = [id number] for GO NZALES III, SHAYLA TROPONIN [id number] 17:33:00 Test Item Value Reference Range Interpretation [...] failure, acidosis, acute neurological disease, and persistent tachyarrhythmia.Financial Sales Consultant ID - BSPOCT-GLUCOSE METER 2019-11-05 15:21:00 Test Item Value Reference Range Interpretation Comments POC-GLUCOSE METER 126 mg/dL 70-110 H : TESTED A T [facility] 6720 (BEAKER) (test code = [facility], 1538) 91134: Financial Sales Consultant/Techni nuha ID = [id number] for WINDY NO POCT-GLUCOSE [id number] 12:15:00 Test Item Value Reference Range Interpretation Comments POC-GLUCOSE METER 226 mg/dL 70-110 H : TESTED A T [facility] 6720 (BEAKER) (test code = [facility], 1538) 09103: Financial Sales Consultant/Techni nuha ID = [id number] for CHARANJIT MORGAN BASIC METABOLIC [id number] 08:09:00 Test Item Value Reference Range Interpretation [...] S NOT APPLICABLE FOR DIALYSIS PATIEN TS. Financial Sales Consultant ID - NIMESH CPOCT-GLUCOSE [id number] 08:07:00 Test Item Value Reference Range Interpretation Comments POC-GLUCOSE METER 170 mg/dL 70-110 H : [facility] (BE[facility]ER[facility] (test code = ALPHONSO PANDYA MD, 1538) 37354: Financial Sales Consultant/Techni nuha ID = [id number] for CHARANJIT MORGAN [id number] 07:56:00 Test Item Value Reference Range Interpretation Comments PHOSPHORUS (BEAKER) (test code = 4.2 mg/dL 2.3-4.7 604) Financial Sales Consultant ID - NIMESH [id number] 07:56:00 Test Item Value Reference Range Interpretation Comments MAGNESIUM (BEAKER) (test code = 2.4 mg/dL 1.6-2.6 627) Financial Sales Consultant ID - NIMESH CCBC W/PLT COUNT & AUTO [id number] 05:48:00 Test Item Value Reference Range Interpretation [...] = 2801) RAD, CHEST, 1 VIEW, NON [id number] 05:37:00Reason for exam:->Vapotherm, bipapShould this be performed [...] Ladarius Sanchez MDReport Verified Date/Time: 11/05/201905:37:42 POCT-GLUCOSE [id number] 21:21:00 Test Item Value Reference Range Interpretation Comments POC-GLUCOSE METER 175 mg/dL 70-110 H : TESTED A T [facility] 6720 (BEAKER) (test code = ALPHONSO Caicedo PANDYA MD, 1538) 41767: Financial Sales Consultant/Techni nuha ID = [id number] for Otilia Eaton POCT-GLUCOSE [id number] 18:00:00 Test Item Value Reference Range Interpretation Comments POC-GLUCOSE METER 170 mg/dL 70-110 H : TESTED A T [facility] 6720 (BEAKER) (test code = ALPHONSO PANDYA [place], 1538) 21264: Financial Sales Consultant/Techni nuha ID = [id number] for Alfredo Aguila ANAEROBIC [id number] 17:27:00 Test Item Value Reference Range Interpretation Comments CULTURE (BEAKER) (test No anaerobes isolated code = 1095) POCT-GLUCOSE [id number] 11:46:00 Test Item Value Reference Range Interpretation Comments POC-GLUCOSE METER 183 mg/dL 70-110 H : TESTED A T [facility] 6720 (BEAKER) (test code = ALPHONSO Caicedo PANDYA [place], 1538) 05640: Financial Sales Consultant/Techni nuha ID = [id number] for Alfredo Aguila CBC W/PLT COUNT & AUTO [id number] 08:59:00 Test Item Value Reference Range Interpretation [...] CONCENTRATION Adequate (CELLAVISION)(BEAKER) (test code = 3438) Financial Sales Consultant ID - Meghna OverholtUser comments: Slide comments:CBC W/PLT COUNT & AUTO [id number] 08:25:00 Test Item Value Reference Range Interpretation [...] CONCENTRATION Adequate (CELLAVISION)(BEAKER) (test code = 3438) Financial Sales Consultant ID - Jaren comments: Slide comments:POCT-GLUCOSE [id number] 08:02:00 Test Item Value Reference Range Interpretation Comments POC-GLUCOSE METER 108 mg/dL 70-110 : TESTED A T [facility] 6720 (BEAKER) (test code = ALPHONSO Caicedo PANDYA [place], 1538) 21899: Financial Sales Consultant/Techni nuha ID = [id number] for SAMIRA SUAREZ BASIC METABOLIC [id number] 07:44:00 Test Item Value Reference Range Interpretation [...] S NOT APPLICABLE FOR DIALYSIS PATIEN TS. Financial Sales Consultant ID - GERRY MBASIC METABOLIC [id number] 07:44:00 Test Item Value Reference Range Interpretation [...] S NOT APPLICABLE FOR DIALYSIS PATIEN TS. Financial Sales Consultant ID - GERRY [id number] 07:42:00 Test Item Value Reference Range Interpretation Comments MAGNESIUM (BEAKER) (test code = 2.5 mg/dL 1.6-2.6 627) Financial Sales Consultant ID - GERRY MPOCT-GLUCOSE [id number] 21:32:00 Test Item Value Reference Range Interpretation Comments POC-GLUCOSE METER 196 mg/dL 70-110 H : TESTED A T [facility] 6720 (BEAKER) (test code = [facility], 1538) 03708: Financial Sales Consultant/Techni nuha ID = [id number] for DA VIS, NAIMA POCT-GLUCOSE [id number] 16:57:00 Test Item Value Reference Range Interpretation Comments POC-GLUCOSE METER 138 mg/dL 70-110 H : TESTED A T [facility] 6720 (BEAKER) (test code = [facility], 1538) 34606: Financial Sales Consultant/Techni nuha ID = [id number] for HI LL, SHAI POCT-GLUCOSE [id number] 12:53:00 Test Item Value Reference Range Interpretation Comments POC-GLUCOSE METER 229 mg/dL 70-110 H : TESTED A T [facility] 6720 (BEAKER) (test code = [facility], 1538) 40788: Financial Sales Consultant/Techni nuha ID = [id number] for LENNOX MARTINEZ POCT-GLUCOSE [id number] 07:48:00 Test Item Value Reference Range Interpretation Comments POC-GLUCOSE METER 128 mg/dL 70-110 H : TESTED A T [facility] 6720 (BEAKER) (test code = ALPHONSO PANDYA [place], 1538) 41656: Financial Sales Consultant/Techni nuha ID = [id number] for LENNOX MARTINEZ CBC W/PLT COUNT & AUTO [id number] 07:38:00 Test Item Value Reference Range Interpretation [...] CONCENTRATION Adequate (CELLAVISION)(BEAKER) (test code = 3438) Financial Sales Consultant ID - Rachael Eugenia comments: Slide comments:RAD, CHEST, 1 VIEW, NON [id number] 06:47:00Reason for exam:->s/p CABGShould this be performed [...] by: LADARIUS SANCHEZ MD on11/03/2019 06:47 AMCALCIUM, [id number] 06:20:00 Test Item Value Reference Range Interpretation Comments CALCIUM IONIZED (BEAKER) (test 1.19 mmol/L 1.12-1.27 code = 698) PH, BLOOD (BEAKER) (test code = 7.34 1810) BASIC METABOLIC [id number] 04:59:00 Test Item Value Reference Range Interpretation [...] S NOT APPLICABLE FOR DIALYSIS PATIEN TS. Financial Sales Consultant ID - GERRY [id number] 04:57:00 Test Item Value Reference Range Interpretation Comments PHOSPHORUS (BEAKER) (test code = 3.1 mg/dL 2.3-4.7 604) Financial Sales Consultant ID - GERRY [id number] 04:57:00 Test Item Value Reference Range Interpretation Comments MAGNESIUM (BEAKER) (test code = 2.2 mg/dL 1.6-2.6 627) Financial Sales Consultant ID - GERRY MPOCT-GLUCOSE [id number] 22:34:00 Test Item Value Reference Range Interpretation Comments POC-GLUCOSE METER 202 mg/dL 70-110 H : TESTED A T [facility] 6720 (BEAKER) (test code = ALPHONSO PANDYA MD, 1538) 96988: Financial Sales Consultant/Techni nuha ID = [id number] for ANJALI AGUILA BASIC METABOLIC [id number] 21:31:00 Test Item Value Reference Range Interpretation [...] S NOT APPLICABLE FOR DIALYSIS PATIEN TS. Financial Sales Consultant ID - [id number] 21:30:00 Test Item Value Reference Range Interpretation Comments PHOSPHORUS (BEAKER) (test code = 4.5 mg/dL 2.3-4.7 604) Financial Sales Consultant ID - [id number] 21:30:00 Test Item Value Reference Range Interpretation Comments MAGNESIUM (BEAKER) (test code = 2.6 mg/dL 1.6-2.6 627) Financial Sales Consultant ID - VELMANBLOOD GAS, [id number] 21:10:00 Test Item Value Reference Range Interpretation [...] code = 1819) 36.0 % HEMOGLOBIN AND [id number] 21:03:00 Test Item Value Reference Range Interpretation Comments HEMOGLOBIN (BEAKER) (test code = 8.1 GM/DL 13.7-17.5 L 410) HEMATOCRIT (BEAKER) (test code = 25.9 % 40.1-51.0 L 411) Financial Sales Consultant ID - [id number], CHEST, 1 VIEW, NON [id number] 20:50:00Reason for exam:->CoughShould this be performed at the bedside?->YesFINAL REPORT RAD, CHEST, 1 VIEW, NON DEPT INDICATION: Cough COMPARISON: 16 hours prior FINDINGS: Portable frontal view of the chest. IMPRESSION: Support Lines: No significant change. Lungs and pleura: Airspace and pleural opacities are unchanged. No pneumothorax.Heart and mediastinum: Stable contours. Additional findings: None. Signed: Ladarius Sanchezeport Verified Date/Time: 11/02/2019 20:50:54 POCT-GLUCOSE [id number] 17:17:00 Test Item Value Reference Range Interpretation Comments POC-GLUCOSE METER 127 mg/dL 70-110 H : TESTED A T [facility] 6720 (BEAKER) (test code = ALPHONSO Caicedo [facility], 1538) 66741: Financial Sales Consultant/Techni nuha ID = [id number] for LYUDMILA Cornejo JONATHAN POCT-GLUCOSE [id number] 12:05:00 Test Item Value Reference Range Interpretation Comments POC-GLUCOSE METER 208 mg/dL 70-110 H : TESTED A T [facility] 6720 (BEAKER) (test code = ALPHONSO Caicedo [facility], 1538) 01787: Financial Sales Consultant/Techni nuha ID = [id number] for JONATHAN RODRIGEZ POCT-GLUCOSE [id number] 07:38:00 Test Item Value Reference Range Interpretation Comments POC-GLUCOSE METER 104 mg/dL 70-110 : TESTED A T [facility] 6720 (BEAKER) (test code = ALPHONSO PANDYA MD, 1538) 66123: Financial Sales Consultant/Techni nuha ID = [id number] for JONATHAN RODRIGEZ RAD, CHEST, 1 VIEW, NON [id number] 06:31:00Reason for exam:->Chest congestionShould this be performed [...] MDReport Verified Date/Time: 11/02/2019 06:31:02 BASIC METABOLIC [id number] 03:20:00 Test Item Value Reference Range Interpretation [...] S NOT APPLICABLE FOR DIALYSIS PATIEN TS. Financial Sales Consultant ID - GERRY [id number] 03:15:00 Test Item Value Reference Range Interpretation Comments PHOSPHORUS (BEAKER) (test code = 3.9 mg/dL 2.3-4.7 604) Financial Sales Consultant ID - GERRY [id number] 03:15:00 Test Item Value Reference Range Interpretation Comments MAGNESIUM (BEAKER) (test code = 2.5 mg/dL 1.6-2.6 627) Financial Sales Consultant ID - GERRY MCBC W/PLT COUNT & AUTO [id number] 03:13:00 Test Item Value Reference Range Interpretation [...] PERCENT (BEAKER) (test code = 2801) CALCIUM, [id number] 02:49:00 Test Item Value Reference Range Interpretation Comments CALCIUM IONIZED (BEAKER) (test 1.16 mmol/L 1.12-1.27 code = 698) PH, BLOOD (BEAKER) (test code = 7.39 1810) POCT-GLUCOSE [id number] 23:12:00 Test Item Value Reference Range Interpretation Comments POC-GLUCOSE METER 171 mg/dL 70-110 H : TESTED A T [facility] 6720 (BEAKER) (test code = [facility] [employer] [facility], 1538) 97542: Financial Sales Consultant/Techni nuha ID = [id number] for ANJALI AGUILA POCT-GLUCOSE [id number] 17:23:00 Test Item Value Reference Range Interpretation Comments POC-GLUCOSE METER 96 mg/dL 70-110 : TESTED A T [facility] 6720 (BEAKER) (test code = [facility] [employer] [facility], 1538) 14929: Financial Sales Consultant/Techni nuha ID = [id number] for JONATHAN MACHADO BASIC METABOLIC [id number] 17:18:00 Test Item Value Reference Range Interpretation [...] S NOT APPLICABLE FOR DIALYSIS PATIEN TS. Financial Sales Consultant ID - [id number] 17:17:00 Test Item Value Reference Range Interpretation Comments PHOSPHORUS (BEAKER) (test code = 3.4 mg/dL 2.3-4.7 604) Financial Sales Consultant ID - [id number] 17:17:00 Test Item Value Reference Range Interpretation Comments MAGNESIUM (BEAKER) (test code = 2.4 mg/dL 1.6-2.6 627) Financial Sales Consultant ID - BSBASIC METABOLIC [id number] 13:42:00 Test Item Value Reference Range Interpretation [...] S NOT APPLICABLE FOR DIALYSIS PATIEN TS. Financial Sales Consultant ID - PIAYA [id number] 13:40:00 Test Item Value Reference Range Interpretation Comments PHOSPHORUS (BEAKER) (test code = 3.9 mg/dL 2.3-4.7 604) Financial Sales Consultant ID - LILY [id number] 13:40:00 Test Item Value Reference Range Interpretation Comments MAGNESIUM (BEAKER) (test code = 2.6 mg/dL 1.6-2.6 627) Financial Sales Consultant ID - LILY LCALCIUM, [id number] 12:49:00 Test Item Value Reference Range Interpretation Comments CALCIUM IONIZED (BEAKER) (test 1.13 mmol/L 1.12-1.27 code = 698) PH, BLOOD (BEAKER) (test code = 7.38 1810) POCT-GLUCOSE [id number] 12:14:00 Test Item Value Reference Range Interpretation Comments POC-GLUCOSE METER 147 mg/dL 70-110 H : TESTED A T [facility] 6720 (BEAKER) (test code = [facility] [employer] [facility], 1538) 03822: Financial Sales Consultant/Techni nuha ID = [id number] for JONATHAN RODRIGEZ SURGICALLY OBTAINED CULTURE + GRAM [id number] 10:40:00 Test Item Value Reference Range Interpretation Comments CULTURE (BEAKER) (test No growth code = 1095) GRAM STAIN RESULT <1+ White blood cells (BEAKER) (test code = seen 1123) GRAM STAIN RESULT No organisms seen (BEAKER) (test code = 07019) POCT-GLUCOSE [id number] 07:39:00 Test Item Value Reference Range Interpretation Comments POC-GLUCOSE METER 134 mg/dL 70-110 H : TESTED A T [facility] 6720 (BEAKER) (test code = [employer] [facility], 1538) 98123: Financial Sales Consultant/Techni nuha ID = [id number] for JONATHAN RODRIGEZ BLOOD GAS, [id number] 05:24:00 Test Item Value Reference Range Interpretation Comments PH ARTERIAL (BEAKER) (test code = 7.37 7.35-7.45 383) PCO2 ARTERIAL (BEAKER) (test code 48 mmHg 35-45 H = 384) PO2 ARTERIAL (BEAKER) (test code = 56 mmHg 80-90 L 385) O2 SATURATION ARTERIAL (BEAKER) 87.2 % 96.0-97.0 L (test code = 386) HCO3 ARTERIAL (BEAKER) (test code 27 mmol/L -29 = 388) BASE EXCESS ARTERIAL (BEAKER) 1.3 mmol/L -2.0-3.0 (test code = 387) PATIENT TEMPERATURE (BEAKER) (test 37.5 C code = 1818) FIO2 (BEAKER) (test code = 1819) 40.0 % BASIC METABOLIC [id number] 05:23:00 Test Item Value Reference Range Interpretation Comments SODIUM (BEAKER) 140 meq/L 136-145 (test code = 381) POTASSIUM (BEAKER) 4.7 meq/L 3.5-5.1 (test code = 379) CHLORIDE (BEAKER) 104 meq/L 98-107 (test code = 382) CO2 (BEAKER) (test 25 meq/L 22- code = 355) BLOOD UREA NITROGEN 51 [...] S NOT APPLICABLE FOR DIALYSIS PATIEN TS. Financial Sales Consultant ID - LILY [id number] 05:18:00 Test Item Value Reference Range Interpretation Comments PHOSPHORUS (BEAKER) (test code = 4.8 mg/dL 2.3-4.7 H 604) Financial Sales Consultant ID - LILY [id number] 05:18:00 Test Item Value Reference Range Interpretation Comments MAGNESIUM (BEAKER) (test code = 2.8 mg/dL 1.6-2.6 H 627) Financial Sales Consultant ID - LILY LCBC (HEMOGRAM ONLY)2019-11-01 04:59:00 [...] = 413) RAD, CHEST, 1 VIEW, NON [id number] 04:16:00Reason for exam:->post cardiac surgeryFINAL REPORT RAD, [...] surgical changes.Additional findings: None. Signed: Sigrid Vieyra Verified Date/Time: 11/01/2019 04:16:36 BASIC METABOLIC PANEL [...] S NOT APPLICABLE FOR DIALYSIS PATIEN TS. Financial Sales Consultant ID - LILY [id number] 23:26:00 Test Item Value Reference Range Interpretation Comments POTASSIUM (BEAKER) (test code = 4.6 meq/L 3.5-5.1 379) Financial Sales Consultant ID - LILY [id number] 23:26:00 Test Item Value Reference Range Interpretation Comments MAGNESIUM (BEAKER) (test code = 2.7 mg/dL 1.6-2.6 H 627) Financial Sales Consultant ID - LILY [id number] 23:26:00 Test Item Value Reference Range Interpretation Comments PHOSPHORUS (BEAKER) (test code = 4.6 mg/dL 2.3-4.7 604) Financial Sales Consultant ID - LILY [id number] 23:26:00 Test Item Value Reference Range Interpretation Comments GLUCOSE RANDOM (BEAKER) (test code 144 mg/dL 70-105 H = 652) Financial Sales Consultant ID - LILY LHEMOGLOBIN AND [id number] 23:06:00 Test Item Value Reference Range Interpretation Comments HEMOGLOBIN (BEAKER) (test code = 7.2 GM/DL 13.7-17.5 L 410) HEMATOCRIT (BEAKER) (test code = 22.9 % 40.1-51.0 L 411) Financial Sales Consultant ID - 6000POCT-GLUCOSE [id number] 18:25:00 Test Item Value Reference Range Interpretation Comments POC-GLUCOSE METER 143 mg/dL 70-110 H : TESTED A T [facility] 6720 (BEAKER) (test code = [facility], 1538) 99721: Financial Sales Consultant/Techni nuha ID = [id number] for MALACHI NASH [id number] 16:52:00 Test Item Value Reference Range Interpretation Comments POTASSIUM (BEAKER) (test code = 4.8 meq/L 3.5-5.1 379) Financial Sales Consultant ID - ELEAZAR EPOCT-GLUCOSE [id number] 12:46:00 Test Item Value Reference Range Interpretation Comments POC-GLUCOSE METER 142 mg/dL 70-110 H : TESTED A T [facility] 6720 (BEAKER) (test code = [facility], 153) 64817: Financial Sales Consultant/Techni nuha ID = [id number] for MALACHI NASH [id number] 10:51:00 Test Item Value Reference Range Interpretation Comments POTASSIUM (BEAKER) (test code = 4.7 meq/L 3.5-5.1 379) Financial Sales Consultant ID - SALONI [id number] 10:51:00 Test Item Value Reference Range Interpretation Comments PHOSPHORUS (BEAKER) (test code = 4.8 mg/dL 2.3-4.7 H 604) Financial Sales Consultant ID - SALONI [id number] 10:51:00 Test Item Value Reference Range Interpretation Comments MAGNESIUM (BEAKER) (test code = 2.6 mg/dL 1.6-2.6 627) Financial Sales Consultant ID - SALONI FPOCT-GLUCOSE [id number] 09:54:00 Test Item Value Reference Range Interpretation Comments POC-GLUCOSE METER 164 mg/dL 70-110 H : TESTED A T [facility] 6720 (BEAKER) (test code = [facility], 153) 09030: Financial Sales Consultant/Techni nuha ID = [id number] for NIMESH SANCHEZ POCT-GLUCOSE [id number] 09:27:00 Test Item Value Reference Range Interpretation Comments POC-GLUCOSE METER 163 mg/dL 70-110 H : TESTED A T [facility] 6720 (BEAKER) (test code = [facility], 1538) 15805: Financial Sales Consultant/Techni nuha ID = [id number] for KU HLWEIN, DAVID RAD, CHEST, 1 VIEW, NON [id number] 07:53:00Reason for exam:->post cardiac surgeryFINAL REPORT RAD, CHEST, 1 VIEW, NON DEPT INDICATION: post cardiac surgery COMPARISON: Prior day's exam FINDINGS: Portable frontal view of the chest. IMPRESSION: Limited by underpenetration.Support Lines: Stable. Lungs and pleura: Unchanged interstitial and pleural opacities. No pneumothorax.Heart and mediastinum: Stable contours. Stable surgical changes.Additional findings: None. Signed: JR Samia, Veronica TAYepgil Verified Date/Time: 10/31/2019 07:53:55 Reading Location:[facility] Radiology Reading Room 0 7:53 AMBASIC METABOLIC [id number] 04:29:00 Test Item Value Reference Range Interpretation [...] S NOT APPLICABLE FOR DIALYSIS PATIEN TS. Financial Sales Consultant ID - LILY [id number] 04:26:00 Test Item Value Reference Range Interpretation Comments PHOSPHORUS (BEAKER) (test code = 5.0 mg/dL 2.3-4.7 H 604) Financial Sales Consultant ID - LILY [id number] 04:26:00 Test Item Value Reference Range Interpretation Comments MAGNESIUM (BEAKER) (test code = 2.5 mg/dL 1.6-2.6 627) Financial Sales Consultant ID - PIAYA [id number] 04:01:00 Test Item Value Reference Range Interpretation [...] 2.5-3.5 for patients wiht mechanical heart valves.PROTHROMBIN [id number] 04:00:00 Test Item Value Reference Range Interpretation [...] 0-0 (test code = 413) BLOOD GAS, [id number] 03:46:00 Test Item Value Reference Range Interpretation [...] (BEAKER) (test code = 1819) 40.0 % [id number] 01:25:00 Test Item Value Reference Range Interpretation Comments POTASSIUM (BEAKER) (test code = 4.7 meq/L 3.5-5.1 379) Financial Sales Consultant ID - PIAYA [id number] 20:33:00 Test Item Value Reference Range Interpretation Comments POTASSIUM (BEAKER) (test code = 4.7 meq/L 3.5-5.1 379) Financial Sales Consultant ID - [id number] 20:33:00 Test Item Value Reference Range Interpretation Comments MAGNESIUM (BEAKER) (test code = 2.4 mg/dL 1.6-2.6 627) Financial Sales Consultant ID - [id number] 20:33:00 Test Item Value Reference Range Interpretation Comments PHOSPHORUS (BEAKER) (test code = 4.5 mg/dL 2.3-4.7 604) Financial Sales Consultant ID - BSPOCT-GLUCOSE [id number] 13:55:00 Test Item Value Reference Range Interpretation Comments POC-GLUCOSE METER 149 mg/dL 70-110 H : TESTED A T [facility] 6720 (BEAKER) (test code = ALPHONSO PANDYA MD, 1538) [address]: Financial Sales Consultant/Techni nuha ID = [id number] for NIMESH SNACHEZ BLOOD GAS, [id number] 11:08:00 Test Item Value Reference Range Interpretation [...] (BEAKER) (test code = 1819) 40.0 % [id number] 10:23:00 Test Item Value Reference Range Interpretation Comments PHOSPHORUS (BEAKER) (test code = 4.9 mg/dL 2.3-4.7 H 604) Financial Sales Consultant ID - [id number] 10:23:00 Test Item Value Reference Range Interpretation Comments MAGNESIUM (BEAKER) (test code = 2.7 mg/dL 1.6-2.6 H 627) Financial Sales Consultant ID - [id number] 10:23:00 Test Item Value Reference Range Interpretation Comments POTASSIUM (BEAKER) (test code = 5.2 meq/L 3.5-5.1 H 379) Financial Sales Consultant ID - DBPOCT-GLUCOSE [id number] 10:07:00 Test Item Value Reference Range Interpretation Comments POC-GLUCOSE METER 118 mg/dL 70-110 H : TESTED A T [facility] 6720 (EMMA) (test code = ALPHONSO Caicedo [facility], 1538) [address]: Financial Sales Consultant/Techni nuha ID = [id number] for NIMESH SANCHEZ RAD, CHEST, 1 VIEW, NON [id number] 06:52:00Reason for exam:->post cardiac surgeryFINAL REPORT RAD, [...] Verified J Carlos e/Time: 10/30/2019 06:52:57 POCT-GLUCOSE [id number] 06:39:00 Test Item Value Reference Range Interpretation Comments POC-GLUCOSE METER 146 mg/dL 70-110 H : Notified RN/MD: ([facility]MA) (test code = TESTED AT [facility] 6720 1538) [place] [facility], [address]: Financial Sales Consultant/Techni nuha ID = [id number] for CECILIA CRISOSTOMO BASIC METABOLIC [id number] 05:20:00 Test Item Value Reference Range Interpretation [...] S NOT APPLICABLE FOR DIALYSIS PATIEN TS. Financial Sales Consultant ID - GERRY [id number] 05:08:00 Test Item Value Reference Range Interpretation Comments MAGNESIUM (BEAKER) 2.6 mg/dL 1.6-2.6 Specimen slightly (test code = 627) hemolyzed Financial Sales Consultant ID - GERRY [id number] 05:08:00 Test Item Value Reference Range Interpretation Comments PHOSPHORUS (BEAKER) 5.0 mg/dL 2.3-4.7 H Specimen slightly (test code = 604) hemolyzed Financial Sales Consultant ID - GERRY MCBC (HEMOGRAM ONLY)2019-10-30 05:00:00 [...] (BEAKER) (test code = 413) BLOOD GAS, [id number] 04:50:00 Test Item Value Reference Range Interpretation [...] (test code = 1819) 60.0 % POCT-GLUCOSE [id number] 03:25:00 Test Item Value Reference Range Interpretation Comments POC-GLUCOSE METER 136 mg/dL 70-110 H : Notified RN/MD: ([facility]) (test code = TESTED AT [place] [address] 153) [facility], [address]: Financial Sales Consultant/Techni nuha ID = [id number] for CECILIA CRISOSTOMO [id number] 01:23:00 Test Item Value Reference Range Interpretation Comments POTASSIUM (BEAKER) (test code = 5.2 meq/L 3.5-5.1 H 379) Financial Sales Consultant ID - GERRY MPOCT-GLUCOSE [id number] 01:15:00 Test Item Value Reference Range Interpretation Comments POC-GLUCOSE METER 149 mg/dL 70-110 H : TESTED A T [facility] 6720 ([facility]) (test code = [facility], 1538) [address]: Financial Sales Consultant/Techni nuha ID = [id number] for CHARLOTTE MUHAMMAD POCT-GLUCOSE [id number] 00:01:00 Test Item Value Reference Range Interpretation Comments POC-GLUCOSE METER 143 mg/dL 70-110 H : [facility] (test code = [facility], 153) [address]: Financial Sales Consultant/Techni nuha ID = [id number] for CHARLOTTE MUHAMMAD POCT-GLUCOSE [id number] 21:28:00 Test Item Value Reference Range Interpretation Comments POC-GLUCOSE METER 157 mg/dL 70-110 H : Notified RN/MD: ([facility]) (test code = TESTED AT [facility] 6720 1538) [facility], [address]: Financial Sales Consultant/Techni nuha ID = [id number] for CECILIA CRISOSTOMO POCT-GLUCOSE [id number] 21:21:00 Test Item Value Reference Range Interpretation Comments POC-GLUCOSE METER 178 mg/dL 70-110 H : TESTED A T [facility] 6720 ([facility]) (test code = [facility], 153) [address]: Financial Sales Consultant/Techni nuha ID = [id number] for GURMEET QUINTANA JR BLOOD GAS, [id number] 20:04:00 Test Item Value Reference Range Interpretation [...] code = 1819) 60.0 % LACTIC ACID, [id number] 20:04:00 Test Item Value Reference Range Interpretation Comments LACTATE BLOOD ARTERIAL (2) 2.2 mmol/L 0.5-2.2 (BEAKER) (test code = 2874) Financial Sales Consultant ID - DBCALCIUM, [id number] 19:58:00 Test Item Value Reference Range Interpretation Comments CALCIUM IONIZED (BEAKER) (test 1.19 mmol/L 1.12-1.27 code = 698) PH, BLOOD (BEAKER) (test code = 7.37 1810) GLUCOSE-STAT [id number] 19:58:00 Test Item Value Reference Range Interpretation Comments GLUCOSE RANDOM (BEAKER) (test code 168 mg/dL 70-110 H = 652) HGB/HCT (H&H) - STAT [id number] 19:58:00 Test Item Value Reference Range Interpretation Comments HEMOGLOBIN (BEAKER) (test code = 9.1 g/dL 13.0-16.8 L 410) HEMATOCRIT (BEAKER) (test code = 27.0 % 40.0-50.0 L 411) SODIUM NA-STAT [id number] 19:57:00 Test Item Value Reference Range Interpretation Comments SODIUM (BEAKER) (test code = 381) 139 meq/L 135-148 POTASSIUM-STAT [id number] 19:57:00 Test Item Value Reference Range Interpretation Comments POTASSIUM (BEAKER) (test code = 5.2 meq/L 3.6-5.5 379) [id number] 17:10:00 Test Item Value Reference Range Interpretation Comments POTASSIUM (BEAKER) (test code = 5.3 meq/L 3.5-5.1 H 379) Financial Sales Consultant ID - BSBLOOD GAS, [id number] 16:57:00 Test Item Value Reference Range Interpretation [...] (BEAKER) (test code = 1819) 40.0 % [id number] 12:24:00 Test Item Value Reference Range Interpretation Comments POTASSIUM (BEAKER) (test code = 4.9 meq/L 3.5-5.1 379) Financial Sales Consultant ID - ODETTE MBLOOD GAS, [id number] 11:53:00 Test Item Value Reference Range Interpretation [...] (test code = 1819) 40.0 % POCT-GLUCOSE [id number] 11:45:00 Test Item Value Reference Range Interpretation Comments POC-GLUCOSE METER 181 mg/dL 70-110 H : TESTED A T [facility] 6720 (BEAKER) (test code = ALPHONSO PANDYA MD, 1538) [address]: Financial Sales Consultant/Techni nuha ID = [id number] for GURMEET QUINTANA JR [id number] 08:48:00 Test Item Value Reference Range Interpretation Comments MAGNESIUM (BEAKER) 2.4 mg/dL 1.6-2.6 Specimen slightly (test code = 627) hemolyzed Financial Sales Consultant ID - GERRY [id number] 08:48:00 Test Item Value Reference Range Interpretation Comments PHOSPHORUS (BEAKER) 3.4 mg/dL 2.3-4.7 Specimen slightly (test code = 604) hemolyzed Financial Sales Consultant ID - GERRY [id number] 08:48:00 Test Item Value Reference Range Interpretation Comments POTASSIUM (BEAKER) 4.6 meq/L 3.5-5.1 Specimen slightly (test code = 379) hemolyzed Financial Sales Consultant ID - GERRY MRAD, CHEST, 1 VIEW, NON [id number] 07:02:00while patient is intubated or has chest [...] MDReport Verified Date/Time: 10/29/2019 07:02:49 Reading Location: [facility] Radiology Reading Room POCT- GLUCOSE [id number] 06:37:00 Test Item Value Reference Range Interpretation Comments POC-GLUCOSE METER 150 mg/dL 70-110 H : TESTED A T [place] [address] (BEAKER) (test code = [facility], 1538) [address]: Financial Sales Consultant/Techni nuha ID = [id number] for YASMIN DAVIS [id number] 06:37:00 Test Item Value Reference Range Interpretation Comments ACTIVATED CLOTTING TIME 131 sec : 74 -137 seconds, (BEAKER) (test code = Baseli ne: TESTED AT 441) [address], [facility] 30: Financial Sales Consultant/Techni nuha ID = [id number] for GO RMAN, ANTHONY [id number] 06:36:00 Test Item Value Reference Range Interpretation Comments ACTIVATED CLOTTING TIME 499 sec : 74 -137 seconds, (BEAKER) (test code = Baseli ne: TESTED AT 441) [address], [address]70 [address]: Financial Sales Consultant/Techni nuha ID = [id number] for GO RMAN, ANTHONY [id number] 06:36:00 Test Item Value Reference Range Interpretation Comments ACTIVATED CLOTTING TIME 516 sec : 74 -137 seconds, (BEAKER) (test code = Baseli ne: TESTED AT 441) [address], [address]: Financial Sales Consultant/Techni nuha ID = [id number] for GO RMAN, ANTHONY [id number] 06:36:00 Test Item Value Reference Range Interpretation Comments ACTIVATED CLOTTING TIME 621 sec : 74 -137 seconds, (BEAKER) (test code = Baseli ne: TESTED AT 441) [address], [address]: Financial Sales Consultant/Techni nuha ID = [id number] for GO RMAN, ANTHONY [id number] 06:36:00 Test Item Value Reference Range Interpretation Comments ACTIVATED CLOTTING TIME 753 sec : 74 -137 seconds, (BEAKER) (test code = Baseli ne: TESTED AT 441) [address], [address]: Financial Sales Consultant/Techni nuha ID = [id number] for GO RMAN, ANTHONY [id number] 06:36:00 Test Item Value Reference Range Interpretation Comments ACTIVATED CLOTTING TIME 505 sec : 74 -137 seconds, (BEAKER) (test code = Baseli ne: TESTED AT 441) [address], [address]: Financial Sales Consultant/Techni nuha ID = [id number] for GO RMAN, ANTHONY [id number] 06:36:00 Test Item Value Reference Range Interpretation Comments ACTIVATED CLOTTING TIME 516 sec : 74 -137 seconds, (BEAKER) (test code = Baseli ne: TESTED AT 441) [address], [address]70 30: Financial Sales Consultant/Techni nuha ID = [id number] for GO RMTALHA, ANTHONY POCT-GLUCOSE [id number] 04:37:00 Test Item Value Reference Range Interpretation Comments POC-GLUCOSE METER 141 mg/dL 70-110 H : TESTED A T [place] [address] (BEAKER) (test code = [facility], 1538) [address]: Financial Sales Consultant/Techni nuha ID = [id number] for NIMESH DAVISINE BASIC METABOLIC [id number] 03:19:00 Test Item Value Reference Range Interpretation [...] S NOT APPLICABLE FOR DIALYSIS PATIEN TS. Financial Sales Consultant ID - GERRY [id number] 03:13:00 Test Item Value Reference Range Interpretation [...] 2.5-3.5 for patients wiht mechanical heart valves.PROTHROMBIN [id number] 03:12:00 Test Item Value Reference Range Interpretation [...] is 2.5-3.5 for patients wiht mechanical heart valves.[id number] 03:09:00 Test Item Value Reference Range Interpretation Comments PHOSPHORUS (BEAKER) (test code = 2.4 mg/dL 2.3-4.7 604) Financial Sales Consultant ID - GERRY [id number] 03:09:00 Test Item Value Reference Range Interpretation Comments MAGNESIUM (BEAKER) (test code = 2.8 mg/dL 1.6-2.6 H 627) Financial Sales Consultant ID - GERRY MLACTIC ACID, [id number] 03:02:00 Test Item Value Reference Range Interpretation Comments LACTATE BLOOD ARTERIAL (2) 1.2 mmol/L 0.5-2.2 (BEAKER) (test code = 2874) Financial Sales Consultant ID - GERRY MCBC (HEMOGRAM ONLY)2019-10-29 02:53:00 [...] (BEAKER) (test code = 413) OXYGEN SATURATION, [id number] 02:52:00 Test Item Value Reference Range Interpretation Comments O2 SATURATION (MEASURED) (BEAKER) 78.1 % (test code = 1455) BLOOD GAS, [id number] 02:51:00 Test Item Value Reference Range Interpretation [...] (test code = 1819) 40.0 % GLUCOSE-STAT [id number] 02:51:00 Test Item Value Reference Range Interpretation Comments GLUCOSE RANDOM (BEAKER) (test code 158 mg/dL 70-110 H = 652) CALCIUM, [id number] 02:50:00 Test Item Value Reference Range Interpretation Comments CALCIUM IONIZED (BEAKER) (test 1.20 mmol/L 1.12-1.27 code = 698) PH, BLOOD (BEAKER) (test code = 7.46 1810) POCT-GLUCOSE [id number] 00:29:00 Test Item Value Reference Range Interpretation Comments POC-GLUCOSE METER 156 mg/dL 70-110 H : [facility] (BEAKER) (test code = ALPHONSO PANDYA MD, 1538) [address]: Financial Sales Consultant/Techni unha ID = [id number] for ON YASMIN JORDAN [id number] 22:46:00 Test Item Value Reference Range Interpretation Comments POTASSIUM (BEAKER) (test code = 4.8 meq/L 3.5-5.1 379) Financial Sales Consultant ID - [id number] 22:46:00 Test Item Value Reference Range Interpretation Comments MAGNESIUM (BEAKER) (test code = 3.3 mg/dL 1.6-2.6 H 627) Financial Sales Consultant ID - [id number] 22:46:00 Test Item Value Reference Range Interpretation Comments PHOSPHORUS (BEAKER) (test code = 1.8 mg/dL 2.3-4.7 L 604) Financial Sales Consultant ID - BSLACTIC ACID, [id number] 22:13:00 Test Item Value Reference Range Interpretation Comments LACTATE BLOOD ARTERIAL (2) 1.2 mmol/L 0.5-2.2 (BEAKER) (test code = 2874) Financial Sales Consultant ID - BSPOCT-GLUCOSE [id number] 22:03:00 Test Item Value Reference Range Interpretation Comments POC-GLUCOSE METER 141 mg/dL 70-110 H : TESTED A T [facility] 6720 (BEAKER) (test code = [facility], 1538) [address]: Financial Sales Consultant/Techni nuha ID = [id number] for ON YASMIN JORDAN POCT-GLUCOSE [id number] 19:42:00 Test Item Value Reference Range Interpretation Comments POC-GLUCOSE METER 149 mg/dL 70-110 H : TESTED A T [facility] 6720 (BEAKER) (test code = [facility], 1538) [address]: Financial Sales Consultant/Techni nuha ID = [id number] for YA O, KOUAME POCT-GLUCOSE [id number] 18:32:00 Test Item Value Reference Range Interpretation Comments POC-GLUCOSE METER 147 mg/dL 70-110 H : TESTED A T [facility] 6720 (BEAKER) (test code = [facility], 1538) [address]: Financial Sales Consultant/Techni nuha ID = [id number] for YA O, KOUAME [id number] 18:08:00 Test Item Value Reference Range Interpretation Comments PHOSPHORUS (BEAKER) 3.4 mg/dL 2.3-4.7 Specimen slightly (test code = 604) hemolyzed Financial Sales Consultant ID - ELEAZAR ERAD, CHEST, 1 VIEW, NON [id number] 17:51:00Reason for exam:->ETTShould this be performed at [...] dual-chamber. There is a right IJ route Pearce-Pepe catheter with the tip in the region [...] endotracheal tube as described above. Signed: Darrius Paneport Verified Date/Time: 10/28/2019 17:51:08 Reading Location: [facility] B1 C013W Consult Reading Room CBC W/PLT COUNT & AUTO [id number] 17:49:00 Test Item Value Reference Range Interpretation [...] (BEAKER) (test code = 2801) BASIC METABOLIC [id number] 17:38:00 Test Item Value Reference Range Interpretation [...] S NOT APPLICABLE FOR DIALYSIS PATIEN TS. Financial Sales Consultant ID - ELEAZAR EPROTHROMBIN [id number] 17:31:00 Test Item Value Reference Range Interpretation [...] is 2.5-3.5 for patients wiht mechanical heart valves.[id number] 17:31:00 Test Item Value Reference Range Interpretation Comments FIBRINOGEN LEVEL (BEAKER) (test 343 mg/dl 225-434 code = 658) [id number] 17:31:00 Test Item Value Reference Range Interpretation Comments PARTIAL THROMBOPLASTIN TIME 36.5 seconds 22.5-36.0 H (BEAKER) (test code = 760) [id number] 17:25:00 Test Item Value Reference Range Interpretation Comments MAGNESIUM (BEAKER) 3.4 mg/dL 1.6-2.6 H Specimen slightly (test code = 627) hemolyzed Financial Sales Consultant ID - ELEAZAR ELACTIC ACID, [id number] 17:20:00 Test Item Value Reference Range Interpretation Comments LACTATE BLOOD 3.0 mmol/L 0.5-2.2 H Specimen sligh tly ARTERIAL (2) (BEAKER) hemoly zed (test code = 2874) Financial Sales Consultant ID - ELEAZAR EPLATELET [id number] 17:11:00 Test Item Value Reference Range Interpretation Comments PLATELET COUNT (BEAKER) (test 119 K/CU MM 150-450 L code = 756) Financial Sales Consultant ID - [id number] GAS, [id number] 17:06:00 Test Item Value Reference Range Interpretation [...] code = 1819) 40.0 % SODIUM NA-STAT [id number] 17:06:00 Test Item Value Reference Range Interpretation Comments SODIUM (BEAKER) (test code = 381) 141 meq/L 135-148 POTASSIUM-STAT [id number] 17:06:00 Test Item Value Reference Range Interpretation Comments POTASSIUM (BEAKER) (test code = 5.1 meq/L 3.6-5.5 379) CALCIUM, [id number] 17:06:00 Test Item Value Reference Range Interpretation Comments CALCIUM IONIZED (BEAKER) (test 1.12 mmol/L 1.12-1.27 code = 698) PH, BLOOD (BEAKER) (test code = 7.44 1810) GLUCOSE-STAT [id number] 17:06:00 Test Item Value Reference Range Interpretation Comments GLUCOSE RANDOM (BEAKER) (test code 192 mg/dL 70-110 H = 652) HGB/HCT (H&H) - STAT [id number] 17:06:00 Test Item Value Reference Range Interpretation Comments HEMOGLOBIN (BEAKER) (test code = 8.4 g/dL 13.0-16.8 L 410) HEMATOCRIT (BEAKER) (test code = 25.0 % 40.0-50.0 L 411) OXYGEN SATURATION, [id number] 17:06:00 Test Item Value Reference Range Interpretation Comments O2 SATURATION (MEASURED) (BEAKER) 73.6 % (test code = 1455) CBC W/PLT COUNT & AUTO [id number] 16:50:00 Test Item Value Reference Range Interpretation [...] 0-1 H PERCENT (BEAKER) (test code = 2806) SODIUM NA-STAT [id number] 15:41:00 Test Item Value Reference Range Interpretation Comments SODIUM (BEAKER) (test code = 381) 141 meq/L 135-148 POTASSIUM-STAT [id number] 15:41:00 Test Item Value Reference Range Interpretation Comments POTASSIUM (BEAKER) (test code = 4.7 meq/L 3.6-5.5 379) CALCIUM, [id number] 15:41:00 Test Item Value Reference Range Interpretation Comments CALCIUM IONIZED (BEAKER) (test 1.15 mmol/L 1.12-1.27 code = 698) PH, BLOOD (BEAKER) (test code = 7.40 1810) BLOOD GAS, [id number] 15:41:00 Test Item Value Reference Range Interpretation [...] (test code = 1819) 100.0 % GLUCOSE-STAT [id number] 15:41:00 Test Item Value Reference Range Interpretation Comments GLUCOSE RANDOM (BEAKER) (test code 216 mg/dL 70-110 H = 652) HGB/HCT (H&H) - STAT [id number] 15:41:00 Test Item Value Reference Range Interpretation Comments HEMOGLOBIN (BEAKER) (test code = 8.0 g/dL 13.0-16.8 L 410) HEMATOCRIT (BEAKER) (test code = 24.0 % 40.0-50.0 L 411) SODIUM NA-STAT [id number] 15:17:00 Test Item Value Reference Range Interpretation Comments SODIUM (BEAKER) (test code = 381) 140 meq/L 135-148 POTASSIUM-STAT [id number] 15:17:00 Test Item Value Reference Range Interpretation Comments POTASSIUM (BEAKER) (test code = 4.5 meq/L 3.6-5.5 379) CALCIUM, [id number] 15:17:00 Test Item Value Reference Range Interpretation Comments CALCIUM IONIZED (BEAKER) (test 1.01 mmol/L 1.12-1.27 L code = 698) PH, BLOOD (BEAKER) (test code = 7.38 1810) BLOOD GAS, [id number] 15:17:00 Test Item Value Reference Range Interpretation [...] 36.0 C (test code = 1818) GLUCOSE-STAT [id number] 15:17:00 Test Item Value Reference Range Interpretation Comments GLUCOSE RANDOM (BEAKER) (test code 226 mg/dL 70-110 H = 652) HGB/HCT (H&H) - STAT [id number] 15:17:00 Test Item Value Reference Range Interpretation Comments HEMOGLOBIN (BEAKER) (test code = 7.5 g/dL 13.0-16.8 L 410) HEMATOCRIT (BEAKER) (test code = 22.0 % 40.0-50.0 L 411) [id number] 15:01:00 Test Item Value Reference Range Interpretation Comments FIBRINOGEN LEVEL (BEAKER) (test 314 mg/dl 225-434 code = 658) [id number] 14:57:00 Test Item Value Reference Range Interpretation Comments PARTIAL THROMBOPLASTIN TIME 38.4 seconds 22.5-36.0 H (BEAKER) (test code = 760) PROTHROMBIN [id number] 14:56:00 Test Item Value Reference Range Interpretation [...] for patients wiht mechanical heart valves.BLOOD GAS, [id number] 14:47:00 Test Item Value Reference Range Interpretation [...] (test code = 1819) 100.0 % GLUCOSE-STAT [id number] 14:47:00 Test Item Value Reference Range Interpretation Comments GLUCOSE RANDOM (BEAKER) (test code 240 mg/dL 70-110 H = 652) HGB/HCT (H&H) - STAT [id number] 14:47:00 Test Item Value Reference Range Interpretation Comments HEMOGLOBIN (BEAKER) (test code = 7.1 g/dL 13.0-16.8 L 410) HEMATOCRIT (BEAKER) (test code = 21.0 % 40.0-50.0 L 411) PLATELET [id number] 14:46:00 Test Item Value Reference Range Interpretation Comments PLATELET COUNT (BEAKER) (test code 86 K/CU MM 150-450 L = 756) Financial Sales Consultant ID - [id number], [id number] 14:46:00 Test Item Value Reference Range Interpretation Comments CALCIUM IONIZED (BEAKER) (test 1.22 mmol/L 1.12-1.27 code = 698) PH, BLOOD (BEAKER) (test code = 7.24 1810) SODIUM NA-STAT [id number] 14:45:00 Test Item Value Reference Range Interpretation Comments SODIUM (BEAKER) (test code = 381) 138 meq/L 135-148 POTASSIUM-STAT [id number] 14:45:00 Test Item Value Reference Range Interpretation Comments POTASSIUM (BEAKER) (test code = 4.9 meq/L 3.6-5.5 379) CT, CTA, [id number] 14:28:00Addendum BeginsREPORT STATUS:A ADDENDUM: I agree with the previously described non vascular findings. Additional findings:None. Signed: Kevin Cary MDReport Verified Date/Time: 14:28:45 Reading Location: [place] [address] Angio Body Reading RoomAddendum EndsFINAL REPORT CT [...] proximal ascending thoracic aorta; 3.5 cm at themid ascending aorta; 2.7 cm at the distal ascending aorta; 2.3 cm at the mid transverse arch; 2.5 cmat the proximal descending aorta; 2.2 cm at the mid descending aorta; 2.1 cm at the diaphragmatic hiatus. The left brachycephalic vein is 2.8 cm posterior to the sternum; the mid ascending thoracic aorta is 5.0 cm posterior to the sternum; the aortic root is at least 6 cm posterior to the sternum. Thedistal LAD, relatively free of contrast, at image [...] the upper abdomen reveals no gross abnormality. Inthe AP orientation, the spleen is mildly prominent measure 13.3 cm, of uncertain significance. Correlate clinically. No acute bony pathology is seen. Some degenerative changes is noted. CONCLUSIONS: 1.The thoracic aorta is normal in course, contour, and calibre. There ascending thoracic aorta and aortic root is free of calcification. No ectasia or aneurysmal dilation is seen. There is no evidence ofacute aortic pathology, specifically, there is no dissection, [...] be dictated regarding thenon-vascular findings by the Stone [employer] Marker Radiologist. Signed: Alfonzo Almanza MDReport Verified Date/Time: 10/28/2019 07:41:51 BLOOD GAS, [id number] 14:00:00 Test Item Value Reference Range Interpretation [...] (test code = 1819) 70.0 % POTASSIUM-STAT [id number] 14:00:00 Test Item Value Reference Range Interpretation Comments POTASSIUM (BEAKER) (test code = 5.7 meq/L 3.6-5.5 H 379) GLUCOSE-STAT [id number] 14:00:00 Test Item Value Reference Range Interpretation Comments GLUCOSE RANDOM (BEAKER) (test code 229 mg/dL 70-110 H = 652) HGB/HCT (H&H) - STAT [id number] 14:00:00 Test Item Value Reference Range Interpretation Comments HEMOGLOBIN (BEAKER) (test code = 7.1 g/dL 13.0-16.8 L 410) HEMATOCRIT (BEAKER) (test code = 21.0 % 40.0-50.0 L 411) SODIUM NA-STAT [id number] 13:59:00 Test Item Value Reference Range Interpretation Comments SODIUM (BEAKER) (test code = 381) 138 meq/L 135-148 SODIUM NA-STAT [id number] 13:33:00 Test Item Value Reference Range Interpretation Comments SODIUM (BEAKER) (test code = 381) 138 meq/L 135-148 POTASSIUM-STAT [id number] 13:33:00 Test Item Value Reference Range Interpretation Comments POTASSIUM (BEAKER) (test code = 5.4 meq/L 3.6-5.5 379) BLOOD GAS, [id number] 13:33:00 Test Item Value Reference Range Interpretation [...] (test code = 1819) 70.0 % GLUCOSE-STAT [id number] 13:33:00 Test Item Value Reference Range Interpretation Comments GLUCOSE RANDOM (BEAKER) (test code 202 mg/dL 70-110 H = 652) HGB/HCT (H&H) - STAT [id number] 13:33:00 Test Item Value Reference Range Interpretation Comments HEMOGLOBIN (BEAKER) (test code = 8.4 g/dL 13.0-16.8 L 410) HEMATOCRIT (BEAKER) (test code = 25.0 % 40.0-50.0 L 411) LACTIC ACID, [id number] 13:10:00 Test Item Value Reference Range Interpretation Comments LACTATE BLOOD ARTERIAL (2) 0.9 mmol/L 0.5-2.2 (BEAKER) (test code = 2874) Financial Sales Consultant ID - SALONI FSCICI NA-STAT [id number] 13:00:00 Test Item Value Reference Range Interpretation Comments SODIUM (BEAKER) (test code = 381) 135 meq/L 135-148 POTASSIUM-STAT [id number] 13:00:00 Test Item Value Reference Range Interpretation Comments POTASSIUM (BEAKER) (test code = 5.1 meq/L 3.6-5.5 379) BLOOD GAS, [id number] 13:00:00 Test Item Value Reference Range Interpretation [...] (test code = 1819) 65.0 % GLUCOSE-STAT [id number] 13:00:00 Test Item Value Reference Range Interpretation Comments GLUCOSE RANDOM (BEAKER) (test code 211 mg/dL 70-110 H = 652) HGB/HCT (H&H) - STAT [id number] 13:00:00 Test Item Value Reference Range Interpretation Comments HEMOGLOBIN (BEAKER) (test code = 7.3 g/dL 13.0-16.8 L 410) HEMATOCRIT (BEAKER) (test code = 21.0 % 40.0-50.0 L 411) POTASSIUM-STAT [id number] 12:43:00 Test Item Value Reference Range Interpretation Comments POTASSIUM (BEAKER) (test code = 5.6 meq/L 3.6-5.5 H 379) SODIUM NA-STAT [id number] 12:43:00 Test Item Value Reference Range Interpretation Comments SODIUM (BEAKER) (test code = 381) 133 meq/L 135-148 L BLOOD GAS, [id number] 12:42:00 Test Item Value Reference Range Interpretation [...] (test code = 1819) 65.0 % GLUCOSE-STAT [id number] 12:42:00 Test Item Value Reference Range Interpretation Comments GLUCOSE RANDOM (BEAKER) (test code 201 mg/dL 70-110 H = 652) HGB/HCT (H&H) - STAT [id number] 12:42:00 Test Item Value Reference Range Interpretation Comments HEMOGLOBIN (BEAKER) (test code = 7.9 g/dL 13.0-16.8 L 410) HEMATOCRIT (BEAKER) (test code = 23.0 % 40.0-50.0 L 411) BLOOD GAS, [id number] 12:21:00 Test Item Value Reference Range Interpretation [...] (test code = 1819) 80.0 % GLUCOSE-STAT [id number] 12:21:00 Test Item Value Reference Range Interpretation Comments GLUCOSE RANDOM (BEAKER) (test code 197 mg/dL 70-110 H = 652) HGB/HCT (H&H) - STAT [id number] 12:21:00 Test Item Value Reference Range Interpretation Comments HEMOGLOBIN (BEAKER) (test code = 7.2 g/dL 13.0-16.8 L 410) HEMATOCRIT (BEAKER) (test code = 21.0 % 40.0-50.0 L 411) SODIUM NA-STAT [id number] 12:21:00 Test Item Value Reference Range Interpretation Comments SODIUM (BEAKER) (test code = 381) 134 meq/L 135-148 L POTASSIUM-STAT [id number] 12:10:00 Test Item Value Reference Range Interpretation Comments POTASSIUM (BEAKER) (test code = 4.6 meq/L 3.6-5.5 379) SODIUM NA-STAT [id number] 08:36:00 Test Item Value Reference Range Interpretation Comments SODIUM (BEAKER) (test code = 381) 135 meq/L 135-148 POTASSIUM-STAT [id number] 08:36:00 Test Item Value Reference Range Interpretation Comments POTASSIUM (BEAKER) (test code = 4.5 meq/L 3.6-5.5 379) BLOOD GAS, [id number] 08:36:00 Test Item Value Reference Range Interpretation [...] (test code = 1819) 87.0 % GLUCOSE-STAT [id number] 08:36:00 Test Item Value Reference Range Interpretation Comments GLUCOSE RANDOM (BEAKER) (test code 138 mg/dL 70-110 H = 652) HGB/HCT (H&H) - STAT [id number] 08:36:00 Test Item Value Reference Range Interpretation Comments HEMOGLOBIN (BEAKER) (test code = 8.9 g/dL 13.0-16.8 L 410) HEMATOCRIT (BEAKER) (test code = 26.0 % 40.0-50.0 L 411) [id number] 07:05:00 Test Item Value Reference Range Interpretation [...] S NOT APPLICABLE FOR DIALYSIS PATIEN TS. Financial Sales Consultant ID - OZZY [id number] 05:23:00 Test Item Value Reference Range Interpretation Comments MAGNESIUM (BEAKER) (test code = 2.8 mg/dL 1.6-2.6 H 627) Financial Sales Consultant ID Tacos PRECIADO WPROTHROMBIN [id number] 05:03:00 Test Item Value Reference Range Interpretation [...] mechanical heart valves.CBC W/PLT COUNT & AUTO [id number] 04:41:00 Test Item Value Reference Range Interpretation [...] PERCENT (BEAKER) (test code = 2801) POCT-GLUCOSE [id number] 22:22:00 Test Item Value Reference Range Interpretation Comments POC-GLUCOSE METER 153 mg/dL 70-110 H : TESTED A T [facility] 6720 (BEAKER) (test code = [facility], 1538) 7[address]: Financial Sales Consultant/Techni nuha ID = [id number] for ANJALI AGUILA POCT-GLUCOSE [id number] 17:17:00 Test Item Value Reference Range Interpretation Comments POC-GLUCOSE METER 198 mg/dL 70-110 H : TESTED A T [facility] 6720 (BEAKER) (test code = [facility], 1538) 17109: Financial Sales Consultant/Techni nuha ID = [id number] for SAIDA MENDIETA POCT-GLUCOSE [id number] 12:44:00 Test Item Value Reference Range Interpretation Comments POC-GLUCOSE METER 185 mg/dL 70-110 H : TESTED A T [facility] 6720 (BEAKER) (test code = [facility], 1538) 68089: Financial Sales Consultant/Techni nuha ID = [id number] for JONATHAN MARTINEZNA [id number] 09:04:00 Test Item Value Reference Range Interpretation Comments PARTIAL THROMBOPLASTIN TIME 88.4 seconds 22.5-36.0 H (BEAKER) (test code = 760) POCT-GLUCOSE [id number] 07:56:00 Test Item Value Reference Range Interpretation Comments POC-GLUCOSE METER 154 mg/dL 70-110 H : TESTED A T [facility] 6720 (BEAKER) (test code = [facility], 1538) 71186: Financial Sales Consultant/Techni nuha ID = [id number] for LENNOX MARTINEZ BASIC METABOLIC [id number] 04:36:00 Test Item Value Reference Range Interpretation [...] S NOT APPLICABLE FOR DIALYSIS PATIEN TS. Financial Sales Consultant ID - [id number] (HEMOGRAM ONLY)2019-10-27 04:03:00 Test [...] WBC 0-0 (BEAKER) (test code = 413) [id number] 02:06:00 Test Item Value Reference Range Interpretation Comments PARTIAL THROMBOPLASTIN TIME 65.3 seconds 22.5-36.0 H (BEAKER) (test code = 760) POCT-GLUCOSE [id number] 22:33:00 Test Item Value Reference Range Interpretation Comments POC-GLUCOSE METER 164 mg/dL 70-110 H : TESTED A T [facility] 6720 (BEAKER) (test code = [facility] [employer] [facility], 1538) 18522: Financial Sales Consultant/Techni nuha ID = [id number] for ANJALI AGUILA [id number] 18:06:00 Test Item Value Reference Range Interpretation Comments PARTIAL THROMBOPLASTIN TIME 80.0 seconds 22.5-36.0 H (BEAKER) (test code = 760) [id number] 17:13:00 Test Item Value Reference Range Interpretation Comments PARTIAL THROMBOPLASTIN TIME 186.3 seconds 22.5-36.0 HH (BEAKER) (test code = 760) POCT-GLUCOSE [id number] 17:06:00 Test Item Value Reference Range Interpretation Comments POC-GLUCOSE METER 175 mg/dL 70-110 H : TESTED A T [facility] 6720 (BEAKER) (test code = [facility] [employer] [facility], 1538) 07913: Financial Sales Consultant/Techni nuha ID = [id number] for LYUDMILA Clemente JONATHAN POCT-GLUCOSE [id number] 12:28:00 Test Item Value Reference Range Interpretation Comments POC-GLUCOSE METER 136 mg/dL 70-110 H : TESTED A T [facility] 6720 (BEAKER) (test code = [facility] [employer] [facility], 1538) 40319: Financial Sales Consultant/Techni nuha ID = [id number] for LYUDMILA JONATHAN Cornejo [id number] 10:47:00 Test Item Value Reference Range Interpretation Comments PARTIAL THROMBOPLASTIN TIME 102.9 seconds 22.5-36.0 H (BEAKER) (test code = 760) POCT-GLUCOSE [id number] 08:02:00 Test Item Value Reference Range Interpretation Comments POC-GLUCOSE METER 133 mg/dL 70-110 H : TESTED A T [facility] 6720 (BEAKER) (test code = [facility] [employer] [facility], 1538) 78290: Financial Sales Consultant/Techni nuha ID = [id number] for LYUDMILA [place] JONATHAN BASIC METABOLIC [id number] 04:18:00 Test Item Value Reference Range Interpretation [...] S NOT APPLICABLE FOR DIALYSIS PATIEN TS. Financial Sales Consultant ID - GERRY [id number] 03:54:00 Test Item Value Reference Range Interpretation [...] WBC 0-0 (BEAKER) (test code = 413) [id number] 22:02:00 Test Item Value Reference Range Interpretation Comments PARTIAL THROMBOPLASTIN TIME 64.5 seconds 22.5-36.0 H (BEAKER) (test code = 760) POCT-GLUCOSE [id number] 21:44:00 Test Item Value Reference Range Interpretation Comments POC-GLUCOSE METER 129 mg/dL 70-110 H : TESTED A T [facility] 6720 (BEAKER) (test code = [facility], 153) 22322: Financial Sales Consultant/Techni nuha ID = [id number] for CH U, LI [id number] 20:43:00 Test Item Value Reference Range Interpretation Comments PARTIAL THROMBOPLASTIN TIME 50.7 seconds 22.5-36.0 H (BEAKER) (test code = 760) [id number] 17:02:00 Test Item Value Reference Range Interpretation Comments PARTIAL THROMBOPLASTIN TIME 192.2 seconds 22.5-36.0 HH (BEAKER) (test code = 760) POCT-GLUCOSE [id number] 16:58:00 Test Item Value Reference Range Interpretation Comments POC-GLUCOSE METER 131 mg/dL 70-110 H : TESTED A T [facility] 6720 (BEAKER) (test code = [facility], 1538) 83524: Financial Sales Consultant/Techni nuha ID = [id number] for AP ARECE, ISAIAS POCT-GLUCOSE [id number] 14:57:00 Test Item Value Reference Range Interpretation Comments POC-GLUCOSE METER 170 mg/dL 70-110 H : TESTED A T [facility] 6720 (BEAKER) (test code = [facility], 1538) 40850: Financial Sales Consultant/Techni nuha ID = [id number] for CO RTEZ, CHULA POCT-GLUCOSE [id number] 10:15:00 Test Item Value Reference Range Interpretation Comments POC-GLUCOSE METER 170 mg/dL 70-110 H : TESTED A T [facility] 6720 (BEAKER) (test code = [place], 1538) [address]: Financial Sales Consultant/Techni nuha ID = [id number] for CHULA NASCIMENTO BASIC METABOLIC [id number] 06:17:00 Test Item Value Reference Range Interpretation [...] S NOT APPLICABLE FOR DIALYSIS PATIEN TS. Financial Sales Consultant ID - [id number] 06:08:00 Test Item Value Reference Range Interpretation [...] 753) MEAN CORPUSCULAR HEMOGLOBIN 31.1 pg 25.7-32.2 (AKER) (test code = 751) MEAN CORPUSCULAR HEMOGLOBIN CONC 31.3 GM/DL 32.3-36.5 L (AKER) (test code = 752) RED CELL DISTRIBUTION WIDTH 15.9 % 11.6-14.4 H ([facility]) (test code = 412) PLATELET COUNT ([facility]) (test 181 K/CU MM 150-450 code = 756) MEAN PLATELET VOLUME (AKER) 11.2 fL 9.4-12.4 (test code = 754) NUCLEATED RED BLOOD CELLS 0 /100 WBC 0-0 ([facility]) (test code = 413) [id number] 01:00:00 Test Item Value Reference Range Interpretation Comments PARTIAL THROMBOPLASTIN TIME 76.0 seconds 22.5-36.0 H ([facility]) (test code = 760) POCT-GLUCOSE [id number] 23:53:00 Test Item Value Reference Range Interpretation Comments POC-GLUCOSE METER 166 mg/dL 70-110 H : Notified RN/MD: ([facility]) (test code = TESTED AT [place] [address] 1538) [facility], [address]: Financial Sales Consultant/Techni nuha ID = [id number] for KIAN KAUR POCT-GLUCOSE [id number] 19:04:00 Test Item Value Reference Range Interpretation Comments POC-GLUCOSE METER 191 mg/dL 70-110 H : TESTED A T [place] [address] ([facility]) (test code = BANNERMARK Caicedo [facility], 1538) [address]: Financial Sales Consultant/Techni nuha ID = [id number] for ELÍAS BLOOM [id number] 18:02:00 Test Item Value Reference Range Interpretation Comments PARTIAL THROMBOPLASTIN TIME 62.3 seconds 22.5-36.0 H ([facility]) (test code = 760) [id number] 12:39:00 Test Item Value Reference Range Interpretation Comments PARTIAL THROMBOPLASTIN TIME 47.8 seconds 22.5-36.0 H ([facility]) (test code = 760) Prior to initiating heparinPOCT-GLUCOSE [id number] 11:03:00 Test Item Value Reference Range Interpretation Comments POC-GLUCOSE METER 143 mg/dL 70-110 H : TESTED A T [facility] 6720 (BEAKER) (test code = ALPHONSO Caicedo [place], 1538) [address]: Financial Sales Consultant/Techni nuha ID = [id number] for Vinny Domínguez BASIC METABOLIC [id number] 07:38:00 Test Item Value Reference Range Interpretation [...] S NOT APPLICABLE FOR DIALYSIS PATIEN TS. Financial Sales Consultant ID - GALAPHEPATITIS B SURFACE [id number] 07:11:00 Test Item Value Reference Range Interpretation Comments HEPATITIS B SURFACE ANTIGEN (2) Nonreactive Nonreactive (BEAKER) (test code = 2585) Financial Sales Consultant ID - [id number] 06:42:00 Test Item Value Reference Range Interpretation [...] RED BLOOD CELLS 0 /100 WBC 0-0 (AKER) (test code = 413) POCT-GLUCOSE [id number] 21:49:00 Test Item Value Reference Range Interpretation Comments POC-GLUCOSE METER 136 mg/dL 70-110 H : Notified RN/MD: ([facility]) (test code = TESTED AT [place] [address]) [facility], [address]: Financial Sales Consultant/Techni nuha ID = [id number] for SA NCHEZ, KIAN POCT-GLUCOSE [id number] 19:27:00 Test Item Value Reference Range Interpretation Comments POC-GLUCOSE METER 114 mg/dL 70-110 H : Notified RN/MD: ([facility]A) (test code = TESTED AT [place] [address]) [facility], [address]: Financial Sales Consultant/Techni nuha ID = [id number] for SA NCHEZ, KIAN [id number] 16:15:00 Test Item Value Reference Range Interpretation Comments ACTIVATED CLOTTING TIME 241 sec : 74 -137 seconds, ([facility]) (test code = Baseli ne: TESTED AT 441) [address], [address]: Financial Sales Consultant/Techni nuha ID = [id number] for TALHA LUND [id number] 15:48:00 Test Item Value Reference Range Interpretation Comments ACTIVATED CLOTTING TIME 147 sec : 74 -137 seconds, (BEAKER) (test code = Baseli ne: TESTED AT 441) [facility] [address] [facility], [address]: Financial Sales Consultant/Techni nuha ID = [id number] for TALHA LUND POCT-GLUCOSE [id number] 12:05:00 Test Item Value Reference Range Interpretation Comments POC-GLUCOSE METER 154 mg/dL 70-110 H : TESTED A T [facility] 6720 (BEAKER) (test code = [facility], 1538) [address]: Financial Sales Consultant/Techni nuha ID = [id number] for Do Daniel chaconn POCT-GLUCOSE [id number] 07:41:00 Test Item Value Reference Range Interpretation Comments POC-GLUCOSE METER 144 mg/dL 70-110 H : TESTED A T [facility] 6720 (BEAKER) (test code = [facility], 1538) [address]: Financial Sales Consultant/Techni nuha ID = [id number] for Do adelinaguKatja gracelon TROPONIN [id number] 07:06:00 Test Item Value Reference Range Interpretation Comments TROPONIN I (BEAKER) (test code = 10.76 ng/mL 0.00-0.03 [facility]) Troponin I (TnI) levels must be interpreted [...] failure, acidosis, acute neurological disease, and persistent tachyarrhythmia.Financial Sales Consultant ID - GERRY [id number] 06:37:00 Test Item Value Reference Range Interpretation [...] 0-0 (BEAKER) (test code = 413) TROPONIN [id number] 00:49:00 Test Item Value Reference Range Interpretation [...] failure, acidosis, acute neurological disease, and persistent tachyarrhythmia.Financial Sales Consultant ID - [id number] 22:52:00 Test Item Value Reference Range Interpretation Comments PARTIAL THROMBOPLASTIN TIME 33.8 seconds 22.5-36.0 (BEAKER) (test code = 760) Prior to initiating heparinPLATELET [id number] 22:44:00 Test Item Value Reference Range Interpretation Comments PLATELET COUNT (BEAKER) (test 152 K/CU MM 150-450 code = 756) Financial Sales Consultant ID - [id number] [id number] 20:56:00 Test Item Value Reference Range Interpretation [...] failure, acidosis, acute neurological disease, and persistent tachyarrhythmia.Financial Sales Consultant ID - MARICHUYOCT-GLUCOSE METER 2019-10-22 20:26:00 Test Item Value Reference Range Interpretation Comments POC-GLUCOSE METER 129 mg/dL 70-110 H : TESTED A T [facility] 6720 (BEAKER) (test code = JIGNESHMARK Sascha [place], 1538) [address]: Financial Sales Consultant/Techni nuha ID = [id number] for MINAL YOUSIF TROPONIN [id number] 13:12:00 Test Item Value Reference Range Interpretation [...] failure, acidosis, acute neurological disease, and persistent tachyarrhythmia.Financial Sales Consultant ID - SALONI FB-TYPE NATRIURETIC FACTOR (BNP)2019-10-22 13:06:00 Test Item Value Reference Range Interpretation Comments B-TYPE NATRIURETIC PEPTIDE (BEAKER) 106 pg/mL 0-100 H (test code = 700) Financial Sales Consultant ID - SALONI FBASIC METABOLIC [id number] 13:05:00 Test Item Value Reference Range Interpretation [...] S NOT APPLICABLE FOR DIALYSIS PATIEN TS. Financial Sales Consultant ID - SALONI [id number] 13:02:00 Test Item Value Reference Range Interpretation Comments MAGNESIUM (BEAKER) (test code = 2.8 mg/dL 1.6-2.6 H 627) Financial Sales Consultant ID [employer] SALONI FHEPATIC FUNCTION [id number] 13:02:00 Test Item Value Reference Range Interpretation [...] (test code = 28 U/L 6-55 347) Financial Sales Consultant ID [employer] SALONI [id number] 13:02:00 Test Item Value Reference Range Interpretation Comments LIPASE (BEAKER) (test code = 749) 49 U/L 8-78 Financial Sales Consultant ID [place] SALONI FCBC W/PLT COUNT & AUTO [id number] 12:45:00 Test Item Value Reference Range Interpretation [...] = 2801) RAD, CHEST, 1 VIEW, NON [id number] 12:23:00Reason for exam:->CHEST PAIN FINAL REPORT Chest, one view History: chest pain Comparison: 04/30/2019 Findings:Clear lungs. Normal size heart. No pleural effusion or pneumothorax. Cardiac pacer in place. Impression:No acute findings in the chest Signed: Ivan Milan Verified Date/Time: 10/22/2019 12: 23:16 Reading Location: [facility] Radiology Reading Room POCT-GLUCOSE [id number] 11:51:00 Test Item Value Reference Range Interpretation Comments POC-GLUCOSE METER 279 mg/dL 70-110 H TESTED AT [facility] 6720 (BEAKER) (test code = JIGNEHSMARK Sascha [place] 1538) [address] CBC W/PLT COUNT & AUTO [id number] 11:50:00 Test Item Value Reference Range Interpretation [...] (BEAKER) (test code = 2801) BASIC METABOLIC [id number] 10:56:00 Test Item Value Reference Range Interpretation [...] PATIEN TS. RAD, CHEST, 1 VIEW, NON [id number] 08:58:00Reason for exam:->Post device placementShould this be [...] Britt Verified Date/Time: 04/30/2019 08:58:17 Reading Location: [facility] Reading Room POCT-GLUCOSE [id number] 08:16:00 Test Item Value Reference Range Interpretation Comments POC-GLUCOSE METER 342 mg/dL 70-110 H TESTED AT [address] (test code = [facility] Sascha [place] [address]) [address] RAD, CHEST, 1 VIEW, NON [id number] 06:14:00Reason for exam:->post device placementShould this be [...] Vieyra Verified Date/Time: 04/30/2019 06:14:19 Reading Location: [address] Reading Room POCT-GLUCOSE [id number] 01:09:00 Test Item Value Reference Range Interpretation Comments POC-GLUCOSE METER 187 mg/dL 70-110 H TESTED AT [place] [address] ([facility]) (test code = [facility] Sascha [facility] 1538) [address] POCT-GLUCOSE [id number] 20:12:00 Test Item Value Reference Range Interpretation Comments POC-GLUCOSE METER 175 mg/dL 70-110 H TESTED AT [facility] 6720 ([facility]) (test code = ALPHONSO Caicedo [facility] 1538) [address] POCT-GLUCOSE [id number] 17:34:00 Test Item Value Reference Range Interpretation Comments POC-GLUCOSE METER 88 mg/dL 70-110 TESTED AT [place] [address] ([facility]) (test code = ALPHONSO Caicedo [facility] [address] 1538) POCT-GLUCOSE [id number] 13:28:00 Test Item Value Reference Range Interpretation Comments POC-GLUCOSE METER 131 mg/dL 70-110 H TESTED AT [place] [address] ([facility]) (test code = ALPHONSO Caicedo [facility] 1538) [address] RHEUMATOID FACTOR AB, REFLEX TO [id number] 11:35:00 Test Item Value Reference Range Interpretation Comments RHEUMATOID FACTOR (BEAKER) (test Positive code = 573) RHEUMATOID FACTOR [id number] 11:35:00 Test Item Value Reference Range Interpretation [...] PATIEN TS. CBC W/PLT COUNT & AUTO [id number] 09:22:00 Test Item Value Reference Range Interpretation [...] EOSINOPHILS ABSOLUTE COUNT 0.14 K/ L 0.04-0.54 ([facility]) (test code = 416) BASOPHILS ABSOLUTE COUNT ([facility]) 0.02 K/ L 0.01-0.08 (test code = 417) IMMATURE GRANULOCYTES-RELATIVE 5 % 0-1 H PERCENT ([facility]) (test code = 2801) PROTHROMBIN [id number] 09:20:00 Test Item Value Reference Range Interpretation Comments PROTIME ([facility]) (test code = 14.9 seconds 11.9-14.2 H 759) INR ([facility]) (test code = 370) 1.2 <=5.9 Effective 01/30/2019: PT Reference Range ChangeNew: 11.9-14.2 Previous: 11.7- 14.7RECOMMENDED COUMADIN/WARFARIN INR THERAPY RANGESSTANDARD DOSE: 2.0-3.0 Includes: PROPHYLAXIS for venous thrombosis, systemic embolization; TREATMENT for venous thrombosis and/or pulmonary embolus.HIGH RISK: Target INR is 2.5-3.5 for patients wiht mechanical heart valves.Within 24 hours, if on CoumadinPOCT- GLUCOSE [id number] 07:57:00 Test Item Value Reference Range Interpretation Comments POC-GLUCOSE METER 183 mg/dL 70-110 H TESTED AT [place] [address] ([facility]) (test code = ALPHONSO Caicedo [facility] 1538) [address] POCT-GLUCOSE [id number] 21:30:00 Test Item Value Reference Range Interpretation Comments POC-GLUCOSE METER 326 mg/dL 70-110 H Will Repea t Test/TESTED ([facility]) (test code = AT [place] [address] NOELLE [facility]8) [facility] [address] POCT-GLUCOSE [id number] 17:47:00 Test Item Value Reference Range Interpretation Comments POC-GLUCOSE METER 332 mg/dL 70-110 H TESTED AT [place] [address] ([facility]) (test code = ALPHONSO Caicedo [facility] 1538) [address] POCT-GLUCOSE [id number] 11:54:00 Test Item Value Reference Range Interpretation Comments POC-GLUCOSE METER 171 mg/dL 70-110 H TESTED AT [place] [address] ([facility]) (test code = ALPHONSO Caicedo [facility] 1538) [address] POCT-GLUCOSE [id number] 08:21:00 Test Item Value Reference Range Interpretation Comments POC-GLUCOSE METER 171 mg/dL 70-110 H TESTED AT [facility] 6720 (BEAKER) (test code = ALPHONSO [place] 1532) [address] CBC W/PLT COUNT & AUTO [id number] 07:27:00 Test Item Value Reference Range Interpretation [...] Received comment: User comments: Slide comments:BASIC METABOLIC [id number] 05:54:00 Test Item Value Reference Range Interpretation [...] NOT APPLICABLE FOR DIALYSIS PATIEN TS. POCT-GLUCOSE [id number] 21:28:00 Test Item Value Reference Range Interpretation Comments POC-GLUCOSE METER 296 mg/dL 70-110 H TESTED AT [facility] 6720 (BEAKER) (test code = [place] 1538) [address] POCT-GLUCOSE [id number] 17:32:00 Test Item Value Reference Range Interpretation Comments POC-GLUCOSE METER 330 mg/dL 70-110 H TESTED AT [facility] 67[address] (BEAKER) (test code = [place] 1535) [address] CBC W/PLT COUNT & AUTO [id number] 16:02:00 Test Item Value Reference Range Interpretation [...] 3438) Received comment: User comments: Slide comments:POCT-GLUCOSE [id number] 11:35:00 Test Item Value Reference Range Interpretation Comments POC-GLUCOSE METER 248 mg/dL 70-110 H TESTED AT [facility] 67[address] (BEAKER) (test code = [place] 1538) [address] T4, [id number] 08:58:00 Test Item Value Reference Range Interpretation Comments FREE T4 (BEAKER) (test code = 655) 1.29 ng/dL 0.70-1.48 HEMOGLOBIN [id number] 08:50:00 Test Item Value Reference Range Interpretation Comments HEMOGLOBIN A1C (BEAKER) (test code = 7.4 % 4.3-6.1 H 368) LIPID [id number] 08:07:00 Test Item Value Reference Range Interpretation [...] 100-129 Borderline 130-159 High 160-189 Very High [facility] [id number] 08:07:00 Test Item Value Reference Range Interpretation [...] FOR DIALYSIS PATIEN TS. TSH/FREE T4 IF [id number] 08:04:00 Test Item Value Reference Range Interpretation Comments THYROID STIMULATING HORMONE 0.06 uIU/mL 0.35-4.94 L (BEAKER) (test code = 772) POCT-GLUCOSE [id number] 07:38:00 Test Item Value Reference Range Interpretation Comments POC-GLUCOSE METER 316 mg/dL 70-110 H TESTED AT [facility] 6720 (BEAKER) (test code = ALPHONSO [place] 1538) [address] POCT-GLUCOSE [id number] 21:22:00 Test Item Value Reference Range Interpretation Comments POC-GLUCOSE METER 194 mg/dL 70-110 H TESTED AT [facility] 6720 (BEAKER) (test code = ALPHONSO KILPATRICK 1538) [address]97 CBC W/PLT COUNT & AUTO [id number] 19:30:00 Test Item Value Reference Range Interpretation [...] 0-100 H (test code = 700) TROPONIN [id number] 19:20:00 Test Item Value Reference Range Interpretation [...] failure, acidosis, acute neurological disease, and persistent tachyarrhythmia.PT/[id number] 19:17:00 Test Item Value Reference Range Interpretation [...] for patients wiht mechanical heart valves.BASIC METABOLIC [id number] 19:14:00 Test Item Value Reference Range Interpretation [...] S NOT APPLICABLE FOR DIALYSIS PATIEN TS. [id number] 19:13:00 Test Item Value Reference Range Interpretation Comments MAGNESIUM (BEAKER) (test code = 2.4 mg/dL 1.6-2.6 627) RAD, CHEST, 1 VIEW, NON [id number] 17:54:00Reason for exam:->ABNORMAL ECG FINAL REPORT Chest, [...] MDReport Verified Date/Time: 04/26/2019 17:54:42 Reading Location: [facility] C013W Consult Reading Room C-REACTIVE [id number] 17:19:00 Test Item Value Reference Range Interpretation Comments C-REACTIVE PROTEIN (BEAKER) (test 0.22 mg/dL 0.00-0.50 code = 676) POCT-GLUCOSE [id number] 15:56:00 Test Item Value Reference Range Interpretation Comments POC-GLUCOSE METER 283 mg/dL 70-110 H TESTED AT [place] [address] ([facility]) (test code = ALPHONSO Caicedo [facility] 1538) [address] POCT-GLUCOSE [id number] 11:40:00 Test Item Value Reference Range Interpretation Comments POC-GLUCOSE METER 319 mg/dL 70-110 H TESTED AT [place] [address] ([facility]) (test code = ALPHONSO Caicedo [facility] 1538) [address] CBC W/PLT COUNT & AUTO [id number] 09:52:00 Test Item Value Reference Range Interpretation Comments WHITE BLOOD CELL COUNT (BEAKER) 10.9 K/ L 3.5-10.5 H (test code = 775) RED BLOOD CELL COUNT (AKER) 2.73 M/ L 4.63-6.08 L (test code = 761) HEMOGLOBIN (BEAKER) (test code = 8.6 GM/DL 13.7-17.5 L 410) HEMATOCRIT (AKER) (test code = 26.5 % 40.1-51.0 L [...] 0-1 H PERCENT (BEAKER) (test code = 2800) BASIC METABOLIC [id number] 08:06:00 Test Item Value Reference Range Interpretation [...] S NOT APPLICABLE FOR DIALYSIS PATIEN TS. [id number] 07:34:00 Test Item Value Reference Range Interpretation Comments PHOSPHORUS (BEAKER) 5.3 mg/dL 2.3-4.7 H Specimen slightly (test code = 604) hemolyzed POCT-GLUCOSE [id number] 07:18:00 Test Item Value Reference Range Interpretation Comments POC-GLUCOSE METER 364 mg/dL 70-110 H Notified R N MD/TESTED ([facility]) (test code = AT [place] [address]) [facility] 7703 0 HEPATITIS B SURFACE [id number] 22:01:00 Test Item Value Reference Range Interpretation Comments HEPATITIS B SURFACE ANTIGEN (2) Nonreactive Nonreactive (BEAKER) (test code = 2585) POCT-GLUCOSE [id number] 21:39:00 Test Item Value Reference Range Interpretation Comments POC-GLUCOSE METER 334 mg/dL 70-110 H Notified R N MD/TESTED ([facility]) (test code = AT [place] [address]) [facility] 7703 0 POCT-GLUCOSE [id number] 18:23:00 Test Item Value Reference Range Interpretation Comments POC-GLUCOSE METER 299 mg/dL 70-110 H TESTED AT [place] [address] ([facility]) (test code = ALPHONSO Caicedo [place] [address]) [address] BASIC METABOLIC [id number] 16:58:00 Test Item Value Reference Range Interpretation [...] PATIEN TS. CBC W/PLT COUNT & AUTO [id number] 16:41:00 Test Item Value Reference Range Interpretation [...] PERCENT (BEAKER) (test code = 2801) POCT-GLUCOSE [id number] 16:07:00 Test Item Value Reference Range Interpretation Comments POC-GLUCOSE METER 303 mg/dL 70-110 H TESTED AT [facility] 6720 ([facility]) (test code = ALPHONSO Caicedo [facility] 1538) [address] TROPONIN [id number] 15:56:00 Test Item Value Reference Range Interpretation Comments TROPONIN I (AKER) (test code = 0.01 ng/mL 0.00-0.03 397) [...] acidosis, acute neurological disease, and persistent tachyarrhythmia.TROPONIN [id number] 08:07:00 Test Item Value Reference Range Interpretation [...] acute neurological disease, and persistent tachyarrhythmia.BASIC METABOLIC [id number] 08:05:00 Test Item Value Reference Range Interpretation [...] NOT APPLICABLE FOR DIALYSIS PATIEN TS. POCT-GLUCOSE [id number] 06:48:00 Test Item Value Reference Range Interpretation Comments POC-GLUCOSE METER 378 mg/dL 70-110 H TESTED AT [facility] 6720 (BEAKER) (test code = ALPHONSO Caicedo [place] 1538) [address] CBC W/PLT COUNT & AUTO [id number] 03:42:00 Test Item Value Reference Range Interpretation [...] (BEAKER) (test code = 2801) BASIC METABOLIC [id number] 03:38:00 Test Item Value Reference Range Interpretation [...] NOT APPLICABLE FOR DIALYSIS PATIEN TS. TROPONIN [id number] 03:38:00 Test Item Value Reference Range Interpretation [...] neurological disease, and persistent tachyarrhythmia.CT, BRAIN, WITHOUT [id number] 03:13:00Reason for exam:->LOSS OF CONSCIOUSNESSWhat is the [...] Date/Time: 03:13:43 RAD, CHEST, 1 VIEW, NON [id number] 02:37:00Reason for exam:->LOSS OF CONSCIOUSNESSShould this be [...] gas collection cannot be excluded on today's l imited AP portable study. Cardiac silhouette is enlarged as before. Mediastinal contours are similarto previous. Left-sided pleural effusion and/or pleural thickening is again noted, decreased in sizecompared with the prior study. A vascular stent is again noted along the expected course of the terminal left cephalic vein. No definite evidence of an acute osseous abnormality or pneumothorax. Consider chest CT for further characterization if clinically warranted. Signed: Jonathan Centeno MDReport Verified Date/Time: 04/14/2019 02:37:40 Reading Location: [address] Reading Room AFB CULTURE + [id number] 10:35:00 Test Item Value Reference Range Interpretation Comments CULTURE (BEAKER) (test No acid-fast bacilli code = 1095) isolated in 42 days AFB SMEAR (BEAKER) No acid fast bacilli (test code = 994) seen FUNGUS CULTURE + [id number] 19:02:00 Test Item Value Reference Range Interpretation Comments CULTURE (BEAKER) (test No fungus isolated in code = 1095) 28 days FUNGUS SMEAR (BEAKER) No fungi seen (test code = 1406) POCT-GLUCOSE [id number] 12:35:00 Test Item Value Reference Range Interpretation Comments POC-GLUCOSE METER 214 mg/dL 70-110 H TESTED AT [facility] 6720 (BEAKER) (test code = ALPHONSO P[place] 1538) [address] BLOOD [id number] 12:01:00 Test Item Value Reference Range Interpretation Comments CULTURE (BEAKER) (test No growth in 5 days code = 1095) BLOOD [id number] 12:01:00 Test Item Value Reference Range Interpretation Comments CULTURE (BEAKER) (test No growth in 5 days code = 1095) POCT-GLUCOSE [id number] 07:49:00 Test Item Value Reference Range Interpretation Comments POC-GLUCOSE METER 174 mg/dL 70-110 H TESTED AT [facility] 6720 (EMMA) (test code = ALPHONSO P[place] 1538) [address] MR, CARDIAC WITHOUT [id number] 07:10:00Reason for exam:->r/o constrictive pericarditisFINAL REPORT Cardiac MRI dated 22 Jan 2019 INDICATION: Is a 68 year-old male with with past medical history of end-stage renal disease, coronary artery disease, PCI, on anticoagulation, there is a concern for underlying constrictive physiology. TECHNIQUE: Tali 3 Shauna qualifyorMRI scanner. Morphologic and dynamic cine imaging were [...] MDReport Verified Date/Time: 01/23/2019 07:10:40 Reading Location: [place] [address] Card[facility] [id number] 05:56:00 Test Item Value Reference Range Interpretation [...] NOT APPLICABLE FOR DIALYSIS PATIEN TS. C-REACTIVE [id number] 05:55:00 Test Item Value Reference Range Interpretation Comments C-REACTIVE PROTEIN (BEAKER) (test 9.80 mg/dL 0.00-0.50 H code = 676) CBC W/PLT COUNT & AUTO [id number] 05:20:00 Test Item Value Reference Range Interpretation [...] PERCENT (BEAKER) (test code = 2801) POCT-GLUCOSE [id number] 22:15:00 Test Item Value Reference Range Interpretation Comments POC-GLUCOSE METER 183 mg/dL 70-110 H TESTED AT [facility] 67 (BEAKER) (test code = ALPHONSO [place] MD 1538) [address] BODY FLUID CULTURE + GRAM [id number] 13:25:00 Test Item Value Reference Range Interpretation Comments CULTURE (BEAKER) (test No growth code = 1095) GRAM STAIN RESULT <1+ White blood cells (BEAKER) (test code = seen 1123) GRAM STAIN RESULT No organisms seen (BEAKER) (test code = 48394) POCT-GLUCOSE [id number] 12:07:00 Test Item Value Reference Range Interpretation Comments POC-GLUCOSE METER 275 mg/dL 70-110 H TESTED AT [facility] 6720 (BEAKER) (test code = ALPHONSO P[place] MD 1538) [address]407 POCT-GLUCOSE [id number] 07:57:00 Test Item Value Reference Range Interpretation Comments POC-GLUCOSE METER 160 mg/dL 70-110 H TESTED AT [facility] 6720 (BEAKER) (test code = ALPHONSO Caicedo [place] 1538) [address] POCT-GLUCOSE [id number] 21:56:00 Test Item Value Reference Range Interpretation Comments POC-GLUCOSE METER 210 mg/dL 70-110 H TESTED AT [facility] 6720 (BEAKER) (test code = ALPHONSO Caicedo [place] 1538) [address] BODY FLUID [id number] 18:30:00 Test Item Value Reference Range Interpretation Comments CRYSTALS, BODY FLUID No crystals seen. (BEAKER) (test code = 2165) [id number] Slade Granados MD (BEAKER) (test code = (electronic signature) 8057) POCT-GLUCOSE [id number] 17:51:00 Test Item Value Reference Range Interpretation Comments POC-GLUCOSE METER 152 mg/dL 70-110 H TESTED AT [facility] 6720 (BEAKER) (test code = ALPHONSO Caicedo [place] 1538) [address] [id number] 13:48:00 Test Item Value Reference Range Interpretation Comments PHOSPHORUS (BEAKER) (test code = 4.7 mg/dL 2.3-4.7 604) BODY FLUID CULTURE + GRAM [id number] 12:29:00 Test Item Value Reference Range Interpretation Comments CULTURE (BEAKER) (test No growth code = 1095) GRAM STAIN RESULT <1+ White blood cells (BEAKER) (test code = seen 1123) GRAM STAIN RESULT No organisms seen (BEAKER) (test code = 00823) POCT-GLUCOSE [id number] 11:37:00 Test Item Value Reference Range Interpretation Comments POC-GLUCOSE METER 295 mg/dL 70-110 H TESTED AT [facility] 6720 (BEAKER) (test code = ALPHONSO Caicedo [place] 1538) [address] POCT-GLUCOSE [id number] 07:36:00 Test Item Value Reference Range Interpretation Comments POC-GLUCOSE METER 219 mg/dL 70-110 H TESTED AT [facility] 6720 (BEAKER) (test code = JIGNESHSD Sascha [place] 1538) [address] [id number] 06:49:00 Test Item Value Reference Range Interpretation Comments MAGNESIUM (BEAKER) (test code = 1.9 mg/dL 1.6-2.6 627) BASIC METABOLIC [id number] 06:49:00 Test Item Value Reference Range Interpretation [...] PATIEN TS. CBC W/PLT COUNT & AUTO [id number] 05:55:00 Test Item Value Reference Range Interpretation [...] PERCENT (BEAKER) (test code = 2801) POCT-GLUCOSE [id number] 21:34:00 Test Item Value Reference Range Interpretation Comments POC-GLUCOSE METER 218 mg/dL 70-110 H TESTED AT [facility] 67 ([facility]) (test code = ALPHONSO [place] 1538) [address] POCT-GLUCOSE [id number] 17:42:00 Test Item Value Reference Range Interpretation Comments POC-GLUCOSE METER 209 mg/dL 70-110 H TESTED AT [place] [address] ([facility]) (test code = ALPHONSO Caicedo [facility] 1538) [address] POCT-GLUCOSE [id number] 12:00:00 Test Item Value Reference Range Interpretation Comments POC-GLUCOSE METER 256 mg/dL 70-110 H TESTED AT [facility] 6720 ([facility]) (test code = ALPHONSO Caicedo [facility] 1538) [address] POCT-GLUCOSE [id number] 08:07:00 Test Item Value Reference Range Interpretation Comments POC-GLUCOSE METER 226 mg/dL 70-110 H TESTED AT [facility] 6720 (BEAKER) (test code = ALPHONSO [place] 1538) [address] BASIC METABOLIC [id number] 06:16:00 Test Item Value Reference Range Interpretation [...] APPLICABLE FOR DIALYSIS PATIEN TS. VANCOMYCIN LEVEL, [id number] 06:16:00 Test Item Value Reference Range Interpretation Comments VANCOMYCIN RANDOM (BEAKER) (test 15.3 ug/mL code = 523) Reference Range: No NormalsCBC W/PLT COUNT & AUTO [id number] 06:16:00 Test Item Value Reference Range Interpretation [...] 0-1 PERCENT (BEAKER) (test code = 2801) [id number] 06:07:00 Test Item Value Reference Range Interpretation Comments MAGNESIUM (BEAKER) (test code = 2.0 mg/dL 1.6-2.6 627) POCT-GLUCOSE [id number] 21:22:00 Test Item Value Reference Range Interpretation Comments POC-GLUCOSE METER 276 mg/dL 70-110 H TESTED AT [facility] 6720 (BEAKER) (test code = ALPHONSO KILPATRICK 1538) [address] BODY FLUID CELL COUNT WITH [id number] 19:44:00 Test Item Value Reference Range Interpretation [...] = 2873) BODY FLUID CELL COUNT WITH [id number] 19:38:00 Test Item Value Reference Range Interpretation [...] code = 2873) LACTATE DEHYDROGENASE (LDH), BODY [id number] 19:16:00 Test Item Value Reference Range Interpretation [...] of specimen.RAD, CHEST, PA OR AP, 1 [id number] 19:12:00Reason for exam:->s/p left thoracentesisFINAL REPORT History: [...] MDReport Verified Date/Time: 01/19/2019 19:12:04 Reading Location: [address] Reading Room 07:12 PMPH, BODY [id number] 19:06:00 Test Item Value Reference Range Interpretation Comments PH, BODY FLUID (BEAKER) (test code = 8.00 1530) ALBUMIN, BODY [id number] 18:55:00 Test Item Value Reference Range Interpretation Comments ALBUMIN FLUID (BEAKER) (test code = 2.9 gm/dL 501) Reference Range: No Normals Assay performance has not been validated for this type of specimen.AMYLASE, BODY [id number] 18:55:00 Test Item Value Reference Range Interpretation Comments AMYLASE FLUID (BEAKER) (test code = 18 U/L 30-110 L 350) Absence of reference range indicates that normals have not been defined.Assay performance has not been validated for this type of specimen.LACTATE DEHYDROGENASE (LDH), BODY [id number] 18:55:00 Test Item Value Reference Range Interpretation [...] validated for this type of specimen.TRIGLYCERIDES, BODY [id number] 18:55:00 Test Item Value Reference Range Interpretation Comments TRIGLYCERIDES FLUID (BEAKER) (test 49 mg/dL code = 539) Reference Range: No Normals Assay performance has not been validated for this type of specimen.CREATININE, BODY [id number] 18:55:00 Test Item Value Reference Range Interpretation Comments CREATININE FLUID (BEAKER) (test 3.31 mg/dL code = 677) Reference Range: No Normals Assay performance has not been validated for this type of specimen.GLUCOSE, BODY [id number] 18:55:00 Test Item Value Reference Range Interpretation Comments GLUCOSE, BODY FLUID (BEAKER) (test 204 mg/dL 70-110 H code = 1528) Absence of reference range indicates that normals have not been defined.Assay performance has not been validated for this type of specimen.SPECIFIC GRAVITY, BODY [id number] 18:49:00 Test Item Value Reference Range Interpretation Comments SP GRAVITY MISCELLANEOUS (BEAKER) (test 1.030 code = 557) Reference Range: No NormalsU/S, [id number] 18:35:00Laterality?- >LeftReason for exam:->pleural effusionFINAL REPORT Ultrasound Guided left Thoracentesis: Modality: Ultrasound Approach: Left Posterior Lateral Intercostal Sedation: None Findings: Informed consent was obtained. After an appropriate site for drainage was found, the skin was prepped and draped, and local anesthesia was given. A 4 Icelandic catheter was inserted into the left pleural space under ultrasound guidance, and approximately 1000 cc of yellow pleural fluid was aspirated. The catheter was removed. No immediate complications were noted. A postprocedure chest radiograph revealed no evidence of pneumothorax. Impression: 1. Uncomplicated ultrasound-guided left thoracentesis. Signed: Perfecto Arzate MDReport Verified Date/Time: 01/19/2019 18:35:33 Reading Location: [address] Transitional Reading Room POCT-GLUCOSE [id number] 18:27:00 Test Item Value Reference Range Interpretation Comments POC-GLUCOSE METER 245 mg/dL 70-110 H TESTED AT [place] [address] ([facility]) (test code = [facility] 1538) [address] POCT-GLUCOSE [id number] 13:05:00 Test Item Value Reference Range Interpretation Comments POC-GLUCOSE METER 169 mg/dL 70-110 H TESTED AT [place] [address] ([facility]) (test code = [facility] 1538) [address] RAD, CHEST, 1 VIEW, NON [id number] 10:50:00Reason for exam:->s/p pericardial drainShould this be [...] MDReport Verified Date/Time: 01/19/2019 10:50:13 Reading Location: [address] Transitional Reading Room VANCOMYCIN LEVEL, [id number] 09:24:00 Test Item Value Reference Range Interpretation Comments VANCOMYCIN RANDOM (BEAKER) (test 31.8 ug/mL code = 523) Reference Range: No NormalsBASIC METABOLIC [id number] 05:55:00 Test Item Value Reference Range Interpretation [...] PATIEN TS. CBC W/PLT COUNT & AUTO [id number] 05:07:00 Test Item Value Reference Range Interpretation [...] PERCENT (BEAKER) (test code = 2801) POCT-GLUCOSE [id number] 00:04:00 Test Item Value Reference Range Interpretation Comments POC-GLUCOSE METER 134 mg/dL 70-110 H TESTED AT [facility] 6720 (BEAKER) (test code = [facility] 1538) [address] POCT-GLUCOSE [id number] 21:27:00 Test Item Value Reference Range Interpretation Comments POC-GLUCOSE METER 227 mg/dL 70-110 H TESTED AT [facility] 6720 (BEAKER) (test code = [facility] 1538) [address] BODY FLUID CELL COUNT WITH [id number] 19:53:00 Test Item Value Reference Range Interpretation Comments APPEARANCE FLUID (BEAKER) Bloody Clear A (test code = 510) COLOR FLUID (BEAKER) (test Red Colorless, Straw A code = 511) RBC FLUID (BEAKER) (test code 901887 /cu mm <=1 H = 513) ADJUSTED [...] Tube (test code = 2873) ALBUMIN, BODY [id number] 19:29:00 Test Item Value Reference Range Interpretation Comments ALBUMIN FLUID (BEAKER) (test code = 3.3 gm/dL 501) Reference Range: No Normals Assay performance has not been validated for this type of specimen.[id number] 09:21:00 Test Item Value Reference Range Interpretation Comments PROCALCITONIN (BEAKER) (test code 0.53 ng/mL <0.05 H = 3036) SEPSIS RISK (ng/mL)Low: 0.05-0.50Intermediate: 0.51-2.00High: >=2.01TROPONIN [id number] 08:35:00 Test Item Value Reference Range Interpretation [...] H (test code = 700) BASIC METABOLIC [id number] 08:30:00 Test Item Value Reference Range Interpretation [...] APPLICABLE FOR DIALYSIS PATIEN TS. HEPATIC FUNCTION [id number] 08:28:00 Test Item Value Reference Range Interpretation [...] code = 14 U/L 6-55 347) PROTHROMBIN TIME/[id number] 08:25:00 Test Item Value Reference Range Interpretation [...] mechanical heart valves.RAD, CHEST, 1 VIEW, NON [id number] 08:09:00Reason for exam:->feverShould this be performed at [...] Chan MDReportVerified Date/Time: 01/18/2019 08:09:08 Reading Location: [facility] Radiology Reading Room CBC W/PLT COUNT [...] (BEAKER) (test code = 2801) POCT-LACTIC ACID, [id number] 08:06:00 Test Item Value Reference Range Interpretation Comments POC-LACTIC ACID, 1.0 mmol/L 0.9-1.7 TESTED AT [facility] 6720 VENOUS (BEAKER) (test [facility] Sascha [facility] code = 2805) [address] BLOOD [id number] 08:00:00 Test Item Value Reference Range Interpretation Comments CULTURE (BEAKER) (test No growth in 5 days code = 1095) BLOOD [id number] 08:00:00 Test Item Value Reference Range Interpretation Comments CULTURE (BEAKER) (test No growth in 5 days code = 1095) HEMOGLOBIN [id number] 20:14:00 Test Item Value Reference Range Interpretation Comments HEMOGLOBIN A1C (BEAKER) (test code = 6.8 % 4.3-6.1 H 368) RAD, CHEST, 1 VIEW, NON [id number] 16:01:00Reason for exam:->respiratory insufficiencyShould this be performed [...] MDReport Verified Date/Time: 01/08/2019 16:01:59 Reading Location: [facility] B1 C013W Consult Reading Room POCT- GLUCOSE [id number] 12:01:00 Test Item Value Reference Range Interpretation Comments POC-GLUCOSE METER 178 mg/dL 70-110 H TESTED AT [facility] 6720 (BEAKER) (test code = ALPHONSO [place] 1538) [address] BASIC METABOLIC [id number] 06:13:00 Test Item Value Reference Range Interpretation [...] 753) MEAN CORPUSCULAR HEMOGLOBIN 31.5 pg 25.7-32.2 ([facility]) (test code = 751) MEAN CORPUSCULAR HEMOGLOBIN CONC 30.6 GM/DL 32.3-36.5 L ([facility]) (test code = 752) RED CELL DISTRIBUTION WIDTH 14.5 % 11.6-14.4 H ([facility]) (test code = 412) PLATELET COUNT ([facility]) (test 256 K/CU MM 150-450 code = 756) MEAN PLATELET VOLUME ([facility]) 11.9 fL 9.4-12.4 (test code = 754) NUCLEATED RED BLOOD CELLS 0 /100 WBC 0-0 ([facility]) (test code = 413) POCT-GLUCOSE [id number] 21:50:00 Test Item Value Reference Range Interpretation Comments POC-GLUCOSE METER 211 mg/dL 70-110 H TESTED AT [place] [address] ([facility]) (test code = ALPHONSO Caicedo [facility] 1538) [address] POCT-GLUCOSE [id number] 18:22:00 Test Item Value Reference Range Interpretation Comments POC-GLUCOSE METER 118 mg/dL 70-110 H TESTED AT [place] [address] ([facility]) (test code = ALPHONSO Caicedo [facility] 1538) [address] POCT-GLUCOSE [id number] 12:04:00 Test Item Value Reference Range Interpretation Comments POC-GLUCOSE METER 158 mg/dL 70-110 H TESTED AT [place] [address] ([facility]) (test code = ALPHONSO Caicedo [facility] 1538) [address] RAD, CHEST, 1 VIEW, NON [id number] 10:43:00Reason for exam:->respiratory insufficiencyShould this be performed at the bedside?->YesFINAL REPORT INDICATION: respiratory insufficiency COMPARISON:January 06 TECHNIQUE: Chest radiograph, single view, portable technique. FINDINGS / IMPRESSION: Enlarged heart shadow and nonspecific left retrocardiac opacity again demonstrated. Pulmonary veins are prominent but no overt pulmonary edema. No pneumothorax. Osseous structures unremarkable. Signed: Franky Mixort Verified Date/Time: 01/07/2019 10:43:17 Reading Location: [facility] Radiology Reading Room POCT-GLUCOSE [id number] 08:09:00 Test Item Value Reference Range Interpretation Comments POC-GLUCOSE METER 145 mg/dL 70-110 H TESTED AT [place] [address] ([facility]) (test code = ALPHONSO Caicedo [facility] 1538) [id number] POCT-GLUCOSE [id number] 21:32:00 Test Item Value Reference Range Interpretation Comments POC-GLUCOSE METER 274 mg/dL 70-110 H TESTED AT [place] [address] ([facility]) (test code = ALPHONSO Caicedo [facility] 1538) [address] POCT-GLUCOSE [id number] 17:20:00 Test Item Value Reference Range Interpretation Comments POC-GLUCOSE METER 215 mg/dL 70-110 H TESTED AT [place] [address] ([facility]) (test code = ALPHONSO Caicedo [facility] 1538) [id number] POCT-GLUCOSE [id number] 14:33:00 Test Item Value Reference Range Interpretation Comments POC-GLUCOSE METER 200 mg/dL 70-110 H TESTED AT [place] [address] ([facility]) (test code = ALPHONSO Caicedo [facility] 1538) [address] POCT-GLUCOSE [id number] 11:13:00 Test Item Value Reference Range Interpretation Comments POC-GLUCOSE METER 289 mg/dL 70-110 H TESTED AT [place] [address] ([facility]) (test code = ALPHONSO Caicedo [facility] 1538) [address] POCT-GLUCOSE [id number] 08:08:00 Test Item Value Reference Range Interpretation Comments POC-GLUCOSE METER 180 mg/dL 70-110 H TESTED AT [place] [address] ([facility]) (test code = [facility] Sascha [facility] 1538) [address] RAD, CHEST, 1 VIEW, NON [id number] 07:40:00Reason for exam:->respiratory insufficiencyShould this be performed at the bedside?->YesFINAL REPORT Chest dated 01/06/2019 COMPARISON: 01/05/2019 Clinical Information: respiratory insufficiency Comment: Heart is enlarged. Pulmonary vasculature is indistinct. Interstitialdisease is seen bilaterally suggestive of vascular congestion unchanged from prior study. There is small left pleural effusion. Signed: Yuridia Wallaceeport Verified Date/Time: 01/06/2019 07:40:30 Reading Location: [facility] B1 [id number] Consult Reading Room BASIC METABOLIC [id number] 07:18:00 Test Item Value Reference Range Interpretation [...] APPLICABLE FOR DIALYSIS PATIEN TS. VANCOMYCIN LEVEL, [id number] 07:13:00 Test Item Value Reference Range Interpretation Comments VANCOMYCIN RANDOM (BEAKER) (test 17.4 ug/mL code = 523) Reference Range: No [id number] 07:09:00 Test Item Value Reference Range Interpretation Comments MAGNESIUM (BEAKER) (test code = 2.1 mg/dL 1.6-2.6 627) POCT-GLUCOSE [id number] 21:46:00 Test Item Value Reference Range Interpretation Comments POC-GLUCOSE METER 173 mg/dL 70-110 H TESTED AT [facility] 6720 (BEAKER) (test code = ALPHONSO P[place] 1538) [address] POCT-GLUCOSE [id number] 16:20:00 Test Item Value Reference Range Interpretation Comments POC-GLUCOSE METER 172 mg/dL 70-110 H TESTED AT [facility] 6720 (BEAKER) (test code = ALPHONSO [place] 1538) [address] POCT-GLUCOSE [id number] 12:21:00 Test Item Value Reference Range Interpretation Comments POC-GLUCOSE METER 260 mg/dL 70-110 H TESTED AT [facility] 6720 (BEAKER) (test code = ALPHONSO Caicedo [place] 1538) [address] POCT-GLUCOSE [id number] 08:37:00 Test Item Value Reference Range Interpretation Comments POC-GLUCOSE METER 153 mg/dL 70-110 H TESTED AT [facility] 6720 (BEAKER) (test code = ALPHONSO Caicedo [place] 1538) [address] RAD, CHEST, 1 VIEW, NON [id number] 07:04:00Reason for exam:->respiratory insufficiencyShould this be performed at the bedside?->YesFINAL REPORT RAD, CHEST, 1 VIEW, NON DEPT INDICATION: respiratory insufficiencyCOMPARISON: Prior day's exam FINDINGS: Portable frontal view of the chest. IMPRESSION: Support Lines: External leads Lungs and pleura: Bibasilar subsegmental atelectasis No pneumothorax.Heart and mediastinum: Stable contours. Additional findings: None. Signed: Dasia Brittepgil Verified Date/Time: 01/05/2019 07:04:08 Reading Location: [address] Neuro Reading Room C METABOLIC [id number] 05:47:00 Test Item Value Reference Range Interpretation [...] S NOT APPLICABLE FOR DIALYSIS PATIEN TS. [id number] 05:36:00 Test Item Value Reference Range Interpretation Comments MAGNESIUM (BEAKER) (test code = 1.9 mg/dL 1.6-2.6 627) CBC W/PLT COUNT & AUTO [id number] 05:18:00 Test Item Value Reference Range Interpretation [...] (BEAKER) (test code = 2801) BLOOD GAS, [id number] 05:12:00 Test Item Value Reference Range Interpretation [...] code = 1819) 21.0 % LACTIC ACID, [id number] 05:00:00 Test Item Value Reference Range Interpretation Comments LACTATE BLOOD ARTERIAL (2) 1.0 mmol/L 0.5-2.2 (BEAKER) (test code = 2874) BASIC METABOLIC [id number] 23:29:00 Test Item Value Reference Range Interpretation [...] S NOT APPLICABLE FOR DIALYSIS PATIEN TS. [id number] 23:17:00 Test Item Value Reference Range Interpretation Comments MAGNESIUM (BEAKER) (test code = 1.9 mg/dL 1.6-2.6 627) CBC W/PLT COUNT & AUTO [id number] 22:52:00 Test Item Value Reference Range Interpretation [...] PERCENT (BEAKER) (test code = 2801) POCT-GLUCOSE [id number] 22:52:00 Test Item Value Reference Range Interpretation Comments POC-GLUCOSE METER 221 mg/dL 70-110 H TESTED AT [place] [address] ([facility]) (test code = [facility] 1538) [address] POCT-GLUCOSE [id number] 19:02:00 Test Item Value Reference Range Interpretation Comments POC-GLUCOSE METER 182 mg/dL 70-110 H TESTED AT [place] [address] ([facility]) (test code = [facility] 1538) [address] POCT-GLUCOSE [id number] 15:31:00 Test Item Value Reference Range Interpretation Comments POC-GLUCOSE METER 150 mg/dL 70-110 H TESTED AT [place] [address] ([facility]) (test code = [facility] 1538) [address] POCT-GLUCOSE [id number] 12:07:00 Test Item Value Reference Range Interpretation Comments POC-GLUCOSE METER 284 mg/dL 70-110 H TESTED AT [place] [address] ([facility]) (test code = [facility] 1538) [address] RAD, CHEST, 1 VIEW, NON [id number] 08:49:00Reason for exam:->respiratory insufficiencyShould this be performed [...] MDReport Verified Date/Time: 01/04/2019 08:49:14 Reading Location: [facility] Radiology Reading Room BASIC METABOLIC [id number] 06:21:00 Test Item Value Reference Range Interpretation [...] S NOT APPLICABLE FOR DIALYSIS PATIEN TS. [id number] 06:09:00 Test Item Value Reference Range Interpretation Comments POTASSIUM (BEAKER) (test code = 5.5 meq/L 3.5-5.1 H 379) [id number] 06:09:00 Test Item Value Reference Range Interpretation Comments MAGNESIUM (BEAKER) (test code = 2.2 mg/dL 1.6-2.6 627) [id number] 06:09:00 Test Item Value Reference Range Interpretation Comments PHOSPHORUS (BEAKER) (test code = 5.8 mg/dL 2.3-4.7 H 604) CBC W/PLT COUNT & AUTO [id number] 05:54:00 Test Item Value Reference Range Interpretation [...] (BEAKER) (test code = 2801) BLOOD GAS, [id number] 05:34:00 Test Item Value Reference Range Interpretation [...] = 1819) 21.0 % HEPATITIS B SURFACE [id number] 03:29:00 Test Item Value Reference Range Interpretation Comments HEPATITIS B SURFACE ANTIGEN (2) Nonreactive Nonreactive (BEAKER) (test code = 2585) TROPONIN [id number] 03:04:00 Test Item Value Reference Range Interpretation [...] 340 U/L 29-200 H code = 380) [id number] 02:42:00 Test Item Value Reference Range Interpretation Comments PROTIME (BEAKER) (test code = 22.0 seconds 11.7-14.7 H 759) INR (BEAKER) (test code = 370) 2.0 <=5.9 PARTIAL THROMBOPLASTIN TIME 114.6 seconds 22.5-36.0 H (AKER) (test code = 760) RECOMMENDED COUMADIN/WARFARIN INR THERAPY RANGESSTANDARD DOSE: 2.0 - 3.0 Includes: PROPHYLAXIS for venous thrombosis, systemic embolization; TREATMENT for venous thrombosis and/or pulmonary embolus.HIGH RISK: Target INR is 2.5-3.5 for patients with mechanical heart valves.BLOOD GAS, [id number] 02:15:00 Test Item Value Reference Range Interpretation [...] (test code = 1819) 21.0 % POCT-GLUCOSE [id number] 00:41:00 Test Item Value Reference Range Interpretation Comments POC-GLUCOSE METER 237 mg/dL 70-110 H TESTED AT [facility] 6720 ([facility]) (test code = ALPHONSO Caicedo [facility] 1538) [address] TROPONIN [id number] 00:28:00 Test Item Value Reference Range Interpretation [...] acute neurological disease, and persistent tachyarrhythmia.COMPREHENSIVE METABOLIC [id number] 00:24:00 Test Item Value Reference Range Interpretation [...] S NOT APPLICABLE FOR DIALYSIS PATIEN TS. [id number] 00:21:00 Test Item Value Reference Range Interpretation Comments MAGNESIUM (BEAKER) (test code = 2.0 mg/dL 1.6-2.6 627) LACTIC ACID, [id number] 00:16:00 Test Item Value Reference Range Interpretation Comments LACTATE BLOOD ARTERIAL (2) 1.3 mmol/L 0.5-2.2 (BEAKER) (test code = 2874) BLOOD GAS, [id number] 23:54:00 Test Item Value Reference Range Interpretation [...] 40.0 % RAD, CHEST, 1 VIEW, NON [id number] 22:24:00Reason for exam:- >hypotensionShould this be performed at the bedside?->YesFINAL REPORT Chest dated 01/03/2019 Clinical Information: hypotension Comment: Heart is enlarged. Pulmonary vasculature is indistinct. Interstitial disease is seen bilaterally suggestive of vascular congestion. Endotracheal tube is present. A curvilinear radiopaque density is seen in the mid upper chest. Please correlate clinically. Signed: Yuridia Wallace MDReport Verified Date/Time: 0 01/03/2019 22:24:07 Reading Location: [address] Consult Reading Room BASI METABOLIC [id number] 22:08:00 Test Item Value Reference Range Interpretation [...] S NOT APPLICABLE FOR DIALYSIS PATIEN TS. [id number] 22:07:00 Test Item Value Reference Range Interpretation Comments MAGNESIUM (BEAKER) 2.0 mg/dL 1.6-2.6 Specimen slightly (test code = 627) hemolyzed [id number] 22:07:00 Test Item Value Reference Range Interpretation Comments PHOSPHORUS (BEAKER) 5.1 mg/dL 2.3-4.7 H Specimen slightly (test code = 604) hemolyzed POTASSIUM-STAT [id number] 21:42:00 Test Item Value Reference Range Interpretation Comments POTASSIUM (BEAKER) (test code = 4.7 meq/L 3.6-5.5 379) GLUCOSE-STAT [id number] 21:42:00 Test Item Value Reference Range Interpretation Comments GLUCOSE RANDOM (BEAKER) (test code 205 mg/dL 70-110 H = 652) SODIUM NA-STAT [id number] 21:42:00 Test Item Value Reference Range Interpretation Comments SODIUM (BEAKER) (test code = 381) 134 meq/L 135-148 L HGB/HCT (H&H) - STAT [id number] 21:42:00 Test Item Value Reference Range Interpretation Comments HEMOGLOBIN (BEAKER) (test code = 8.3 g/dL 13.0-16.8 L 410) HEMATOCRIT (BEAKER) (test code = 24.0 % 40.0-50.0 L 411) [id number] 21:34:00 Test Item Value Reference Range Interpretation [...] for patients with mechanical heart valves.LACTIC ACID, [id number] 21:27:00 Test Item Value Reference Range Interpretation Comments LACTATE BLOOD VENOUS 1.7 mmol/L 0.5-2.2 Specime n moderately (2) (BEAKER) (test hemolyzed code = 2872) CBC W/PLT COUNT & AUTO [id number] 21:16:00 Test Item Value Reference Range Interpretation [...] (BEAKER) (test code = 2801) BLOOD GAS, [id number] 21:03:00 Test Item Value Reference Range Interpretation [...] (BEAKER) (test code = 1819) 40.0 % [id number] 18:33:00 Test Item Value Reference Range Interpretation Comments ACTIVATED CLOTTING TIME 384 sec TEST ED AT [facility] 6720 (BEAKER) (test code = ALPHONSO [place] 441) [address] PROTHROMBIN [id number] 14:04:00 Test Item Value Reference Range Interpretation Comments PROTIME (BEAKER) (test code = 14.3 seconds 11.7-14.7 759) INR (BEAKER) (test code = 370) 1.2 <=5.9 RECOMMENDED COUMADIN/WARFARIN INR THERAPY RANGESSTANDARD DOSE: 2.0 - 3.0 Includes: PROPHYLAXIS for venous thrombosis, systemic embolization; TREATMENT for venous thrombosis and/or pulmonary embolus.HIGH RISK: Target INR is 2.5-3.5 for patients with mechanical heart valves.CBC W/PLT COUNT & AUTO [id number] 14:00:00 Test Item Value Reference Range Interpretation [...] PERCENT (BEAKER) (test code = 2801) TROPONIN [id number] 12:20:00 Test Item Value Reference Range Interpretation [...] acute neurological disease, and persistent tachyarrhythmia.COMPREHENSIVE METABOLIC [id number] 12:15:00 Test Item Value Reference Range Interpretation [...] U/L 6-55 (test code = 347) EGFR ([facility] (test 10 mL/min/1.73 ESTIMA ERUM GFR IS code = 1092) sq m NOT ACCURATE CREATININE CLEARANCE IN PREDICTING GLOMERULAR FILTRATION RATE . ESTIMATED GFR I S NOT APPLICABLE FOR DIALYSIS PATIEN TS. LIPID [id number] 12:13:00 Test Item Value Reference Range Interpretation Comments TRIGLYCERIDES ([employer]) (test code = 158 mg/dL 540) CHOLESTEROL ([employer]) (test code = 113 mg/dL 631) HDL CHOLESTEROL ([employer]) (test code 34 mg/dL = 976) LDL CHOLESTEROL CALCULATED ([employer]) 47 mg/dL (test code = 633) Triglyceride Reference Range: Low Risk <150 Borderline 150-199 High Risk 200- 499 Very High Risk >=500Cholesterol Reference Range: Low Risk <200 Borderline 200-239 High Risk >240HDL Cholesterol Reference Range: Low Risk >=60 High Risk <40LDL Cholesterol Reference Range: Optimal <100 Near Optimal 100-129 Borderline 130-159 High 160-189 Very High >=190POCT-GLUCOSE [id number] 11:26:00 Test Item Value Reference Range Interpretation Comments POC-GLUCOSE METER 291 mg/dL 70-110 H TESTED AT [facility] 6720 ([facility]) (test code = ALPHONSO K[place]PATR[place] 6769) [address]
--- NOTE | 2023-06-19 11:23 | RAD REPORT ---
EXAM DESCRIPTION: CT - CTHCSPWOC - 06/19/2023 11:01 am CLINICAL HISTORY: Fall, Generalized weaknes COMPARISON: Head C Spine Mpr Wo Con dated 04/08/2017 TECHNIQUE: Axial thin cut noncontrast CT images of the head were obtained. Axial thin cut noncontrast CT images of the cervical spine were obtained. Multiplanar reformatted images were generated and reviewed. All CT scans are performed using dose optimization technique as appropriate and may include automated exposure control or mA/KV adjustment according to patient size. FINDINGS: CT HEAD WITHOUT CONTRAST: No acute hemorrhage, hydrocephalus or extra-axial collection is identified.No areas of brain edema or midline shift. The right maxillary sinus polypoidal mucosal thickening. Mastoids are clear.The calvarium is intact. CT CERVICAL SPINE WITHOUT CONTRAST: No fracture or subluxation.Straightening of normal cervical lordosis which may be positional or secon torsten to muscle spasm. Scattered endplate and uncovertebral joint as well as mild facet degenerative c hanges. Findings contribute to variable degrees of neural foraminal narrowing, up to moderate to eloy re on the left at C6-7. No significant bony canal stenosis.No prevertebral soft tissues swelling is i dentified. IMPRESSION: No acute traumatic intracranial or cervical spine findings. Straightening of normal cervical lordosis which may be positional or secondary to muscle spasm. Chronic findings as above.
[2023-06-19 11:37] LABS: Absolute Lymphocytes (CBC) 1.7 K/uL (0.7-4.9); Hematocrit 31.5 % (39.6-49.0); Lymphocytes % 15.5 % (15.3-44.8); MCV 99.4 fL (80-100); MPV 9.2 fL (7.6-11.3); Platelets 194 thou/uL (152-406); RBC Red Blood Cell Count 3.17 M/uL (4.33-5.43)
[2023-06-19 11:47] LABS: Protime INR 4.28
--- NOTE | 2023-06-19 12:00 | RAD REPORT ---
[facility] CLINICAL HISTORY: generalized weakness COMPARISON: Chest Single View dated 07/16/2019; Chest Single View dated 06/27/2019; Chest Single Vie w dated 06/26/2019; Chest Single View dated 06/25/2019 TECHNIQUE: Portable AP view of the chest. FINDINGS: Left basilar peripheral airspace opacity with suspected small effusion, progressive since the prior exam. No pneumothorax. The cardiomediastinal contours are unremarkable. Right chest wall p acer/AICD, sequelae of prior CABG, and left subclavian vascular stent are again seen. IMPRESSION: Left basilar peripheral airspace opacity with suspected small effusion. Underlying pneum onia should be considered.
[2023-06-19 12:10] LABS: Albumin 3.3 g/dL (3.4-5.0); Bilirubin Direct 0.1 mg/dL (0-0.2); Bilirubin Indirect, Calculated 0.3 mg/dL (0.2-0.8); Bilirubin Total 0.4 mg/dL (0.2-1.0); Magnesium 2.7 mg/dL (1.6-2.4); Protein, Total 7.4 g/dL (6.4-8.2); Troponin High Sensitivity 16.4 pg/mL (<58.9)
[2023-06-19 12:14] LABS: Potassium 7.9 mEq/L (3.5-5.1)
--- NOTE | 2023-06-19 12:29 | ER ---
Nurse's Notes [facility] Name: Shelli Mireles Age: 72 yrs Sex: Male : 1950 Arrival Date: 06/19/2023 Time: 10:28 Bed 4 Private MD: Diagnosis: Hyperkalemia;Muscle weakness (generalized);Essential (primary) hypertension;Fall on same level, unspecified;Anemia in chronic kidney disease Presentation: 06/19 10:37 Chief complaint: Patient states: Very weak today. Has fallen twice, was going to 1 dialysis. Care prior to arrival: None. Mechanism of Injury: Fall. Trauma event details: Injury occurred in the [facility]. 10:37 Acuity: MICHELLE 3 ll1 10:37 Method Of Arrival: Wheelchair ll1 10:49 Coronavirus screen: Vaccine status: Patient reports receiving the 2nd dose of the covid nj1 vaccine. Ebola Screen: Patient denies travel to an Ebola-affected area in the 21 days before illness onset. Initial Sepsis Screen: Does the patient meet any 2 criteria? HR > 90 bpm. No. Patient's initial sepsis screen is negative. Does the patient have a suspected source of infection? No. Patient's initial sepsis screen is negative. Risk Assessment: Do you want to hurt yourself or someone else? Patient reports no desire to harm self or others. Onset of symptoms was June 19, 2023. Trauma Activation: Not Applicable Physician: ED Physician; Name: ; Notified At: ; Arrived At: Physician: General Surgeon; Name: ; Notified At: ; Arrived At: Physician: Radiology; Name: ; Notified At: ; Arrived At: Physician: Respiratory; Name: ; Notified At: ; Arrived At: Physician: Lab; Name: ; Notified At: ; Arrived At: Historical: - Allergies: 10:34 Bactrim; ll1 10:34 Sulfa (Sulfonamide Antibiotics); ll1 10:34 TETRACYCLINES; ll1 - Home Meds: 10:51 Lantus U-100 Insulin 100 unit/mL Sub-Q solution 30 units daily [Active]; Novolog Sub-Q nj1 [Active]; rosuvastatin 10 mg oral tablet 1 tab daily [Active]; [place]-3 oral 2 times per day [Active]; gabapentin 300 mg oral capsule 1 cap 3 times per day [Active]; [place] 7.5 - 325 mg Oral 1 tablet three times a day [Active]; Vitamin D3 oral 10,000 IU 1 cap daily [Active]; sevelamer HCl 800 mg oral tablet 5 tabs 3 times per day [Active]; sodium polystyrene sulfonate oral powder 3 tsp T [Active]; aspirin 81 mg Oral tablet, delayed release (enteric coated) 1 tab daily [Active]; warfarin 7.5 mg Oral tablet 1 tab every monday, , monday and monday [Active]; warfarin 5 mg Oral tablet 1 tabs every Monday, Monday, and Monday [Active]; ranolazine 500 mg oral Tablet, Extended Release 12 hr 1 tab 2 times per day [Active]; Rebecca-Senthil oral 1 tab daily [Active]; Miralax 17 gram Oral powder in packet 1 packet daily [Active]; Colace 100 mg oral capsule 1 caps 2 times per day [Active]; B12 Active 1,000 mcg oral tablet,chewable 1 tab daily [Active]; promethazine 25 mg Oral tablet 1 tab every 6 hours [Active]; losartan 50 mg oral tablet 1 tab daily [Active]; carvedilol 25 mg oral tablet 1 tab 2 times per day [Active]; nifedipine 60 mg Oral tablet, extended release 1 tab 2 times per day [Active]; midodrine 10 mg oral tablet 1 tab M W (at dialysis) [Active]; pantoprazole 40 mg oral tablet, delayed release (enteric coated) 1 tab daily [Active]; - PMHx: 10:34 Cardiac Stents x3; Diabetes - IDDM; diabetic retinopathy; Dialysis (started 03/20/17); ll1 High Cholesterol; Hypertension; PE; RENAL FAILURE; - PSHx: 10:34 bypass x 3; pacemaker; Stented artery; ll1 - Immunization history:: Adult Immunizations up to date. - Social history:: Smoking status: unknown. Screenin:30 [facility] ED Fall Risk Assessment (Adult) History of falling in the last 3 months, ld1 including since admission Yes- single mechanical fall (1 pt) Confusion or Disorientation No (0 pts) Intoxicated or Sedated No (0 pts) Impaired Gait Yes (1 pt) Mobility Assist Device Used No (0 pt) Altered Elimination No (0 pt). Abuse screen: Denies threats or abuse. Denies injuries from another. Nutritional screening: No deficits noted. Tuberculosis screening: No symptoms or risk factors identified. Assessment: 10:25 Reassessment: No changes from previously documented assessment. Found on ground sitting ll1 on buttocks. States he is to weak to walk. Gait belt applied. Arose with 3 person lift assist, tolerated well. Wheeled into ER. States he fell earlier going to dialysis also. 11:00 General: Appears in no apparent distress. comfortable, Behavior is calm, cooperative, ld1 appropriate for age. 11:00 Pain: Denies pain. Neuro: Level of Consciousness is awake, alert, obeys commands, ld1 Oriented to person, place, time, situation. Cardiovascular: Capillary refill < 3 seconds Patient's skin is warm and dry. Rhythm is Respiratory: Airway is patent Respiratory effort is even, unlabored. GI: Abdomen is round obese. : No signs and/or symptoms were reported regarding the genitourinary system. EENT: No signs and/or symptoms were reported regarding the EENT system. Derm: No signs and/or symptoms reported regarding the dermatologic system. Musculoskeletal: No signs and/or symptoms reported regarding the musculoskeletal system. 12:00 Reassessment: Patient appears in no apparent distress at this time. No changes from ld1 previously documented assessment. Patient and/or family updated on plan of care and expected duration. Pain level reassessed. 12:30 Reassessment: ERP aware of K level. See MAR for orders. Pt placed on site monitor, ld1 seizure precautions in place. Pt denies pain at this time. 12:47 Reassessment: Hospitalist at bedside discussing need for hospitalization due to lab ld1 results. 13:45 Reassessment: Patient appears in no apparent distress at this time. No changes from ld1 previously documented assessment. Patient and/or family updated on plan of care and expected duration. Pain level reassessed. 14:50 Reassessment: Patient appears in no apparent distress at this time. No changes from ld1 previously documented assessment. Patient and/or family updated on plan of care and expected duration. Pain level reassessed. Vital Signs: 10:49 BP 176 / 82; Pulse 100; Resp 15; Temp 97.7(O); Pulse Ox 98% on R/A; Weight 125 kg (M); nj1 11:25 BP 153 / 57; Pulse 71; Resp 18; Pulse Ox 97% on R/A; ld1 11:30 BP 153 / 63; Pulse 73; Resp 18; Pulse Ox 96% on R/A; ld1 12:00 BP 169 / 71; Pulse 67; Resp 18; Pulse Ox 97% on R/A; ld1 12:11 BP 169 / 71; Pulse 63; Resp 18; Pulse Ox 97% on R/A; ld1 12:30 BP 101 / 72; Pulse 63; Resp 18; Pulse Ox 97% on R/A; ld1 13:10 BP 125 / 81; Pulse 79; Resp 18; Pulse Ox 100% on R/A; ld1 13:30 BP 125 / 81; Pulse 66; Resp 18; Pulse Ox 100% on R/A; Pain 0/10; ld1 14:02 BP 124 / 52; Pulse 72; Resp 18; Pulse Ox 100% on 2 lpm NC; ld1 14:06 BP 137 / 51; Pulse 71; Resp 16; Pulse Ox 100% ; ld1 13:30 Pain Scale: Adult ld1 ED Course: 10:32 Patient arrived in ED. rg4 10:33 Jaime Dickerson DO is Attending Physician. ms3 10:34 Arm band placed on Patient placed in an exam room, on a stretcher. ll1 10:38 Triage completed. ll1 11:00 No provider procedures requiring assistance completed. Missed attempt(s): 20 gauge in ld1 right antecubital area. 11:01 CT Head C Spine In Process Unspecified. EDMS 11:07 XRAY Chest (1 view) In Process Unspecified. EDMS 11:20 Inserted saline lock: 20 gauge in right upper arm, using aseptic technique. ,using nj1 aseptic technique. Ultrasound guided. Catheter tip well visualized within vasculature during placement. Blood collected. 12:29 Jodie Jeter MD is Hospitalizing Provider. ms3 12:30 Patient has correct armband on for positive identification. Placed in gown. Bed in low ld1 position. Call light in reach. Side rails up X2. site monitor on. Pulse ox on. NIBP on. Door closed. Noise minimized. Warm blanket given. 12:31 Sam Bowens MD is Hospitalizing Provider. ms3 12:48 Abi Dickerson, FORREST is Primary Nurse. ld1 15:14 Patient admitted, IV remains in place. ld1 Administered Medications: 12:44 Drug: D50W IVP 50 ml IVP once; (1 amp) Route: IVP; Site: right upper arm; ld1 12:54 Drug: Lokelma Powder 10 grams PO once Route: PO; ld1 13:09 Drug: Calcium Gluconate IVPB 2 grams IVPB once over 60 mins; (mix in NS 100 mL) Route: ld1 IVPB; Infused Over: 60 mins; Site: right upper arm; 13:09 Drug: Insulin Regular Human IVP 10 units IVP once {Co-Signature: amanuel (Ellen Garcia1 RN).} Route: IVP; Site: right upper arm; Medication: 12:30 VIS not applicable for this client. ld1 Outcome: 12:29 Decision to Hospitalize by Provider. ms3 15:13 Admitted to ICU accompanied by nurse, via stretcher, room 1, on monitor, with chart, ld1 Report called to FORREST Velez 15:13 Condition: stable 15:13 Instructed on the need for admit, 15:35 Patient left the ED. ll1 Signatures: Dispatcher [employer] EDMariam Meneses rg4 Madison Tucker RN RN ll1 Jaime Dickerson DO DO ms3 Abi Dickerson RN RN ld1 Lulú Perez, FORREST RN nj1 Ellen Garcia RN iw
--- NOTE | 2023-06-19 12:30 | EDPHYS ---
Physician Documentation [facility] Name: Shelli Mireles Age: 72 yrs Sex: Male : 1950 Arrival Date: 06/19/2023 Time: 10:28 Bed 4 Private MD: ED Physician Jaime Dickerson HPI: 06/19 10:50 This 72 yrs old Male presents to ER via Wheelchair with complaints of Fall Injury, ms3 Weakness. 10:50 72-year-old male with past medical history of diabetes, hypertension, atrial ms3 fibrillation, neuropathy, GERD, end-stage renal disease with dialysis on Monday, Monday, Monday presents to the emergency department for generalized weakness and fall this morning. Patient states on waking up it was difficult to set up, but patient was able to get in the truck and go to dialysis. On arriving to dialysis they were not ready for him and patient went back to the truck. Getting into his truck patient fell. Patient currently denies pain. Patient denies loss of consciousness or striking his head or neck. Patient denies any alleviating or inciting factors. Historical: - Allergies: 10:34 Bactrim; ll1 10:34 Sulfa (Sulfonamide Antibiotics); ll1 10:34 TETRACYCLINES; ll1 - Home Meds: 10:51 Lantus U-100 Insulin 100 unit/mL Sub-Q solution 30 units daily [Active]; Novolog Sub-Q nj1 [Active]; rosuvastatin 10 mg oral tablet 1 tab daily [Active]; [place]-3 oral 2 times per day [Active]; gabapentin 300 mg oral capsule 1 cap 3 times per day [Active]; [place] 7.5 - 325 mg Oral 1 tablet three times a day [Active]; Vitamin D3 oral 10,000 IU 1 cap daily [Active]; sevelamer HCl 800 mg oral tablet 5 tabs 3 times per day [Active]; sodium polystyrene sulfonate oral powder 3 [Active]; aspirin 81 mg Oral tablet, delayed release (enteric coated) 1 tab daily [Active]; warfarin 7.5 mg Oral tablet 1 tab every monday, , monday and monday [Active]; warfarin 5 mg Oral tablet 1 tabs every Monday, Monday, and Monday [Active]; ranolazine 500 mg oral Tablet, Extended Release 12 hr 1 tab 2 times per day [Active]; Rebecca-Senthil oral 1 tab daily [Active]; Miralax 17 gram Oral powder in packet 1 packet daily [Active]; Colace 100 mg oral capsule 1 caps 2 times per day [Active]; B12 Active 1,000 mcg oral tablet,chewable 1 tab daily [Active]; promethazine 25 mg Oral tablet 1 tab every 6 hours [Active]; losartan 50 mg oral tablet 1 tab daily [Active]; carvedilol 25 mg oral tablet 1 tab 2 times per day [Active]; nifedipine 60 mg Oral tablet, extended release 1 tab 2 times per day [Active]; midodrine 10 mg oral tablet 1 tab W (at dialysis) [Active]; pantoprazole 40 mg oral tablet, delayed release (enteric coated) 1 tab daily [Active]; - PMHx: 10:34 Cardiac Stents x3; Diabetes - IDDM; diabetic retinopathy; Dialysis (started 03/20/17); ll1 High Cholesterol; Hypertension; PE; RENAL FAILURE; - PSHx: 10:34 bypass x 3; pacemaker; Stented artery; ll1 - Immunization history:: Adult Immunizations up to date. - Social history:: Smoking status: unknown. ROS: 10:50 ENT: Negative for injury, pain, and discharge, Neck: Negative for injury, pain, and ms3 swelling, Cardiovascular: Negative for chest pain, and palpitations. Respiratory: Negative for shortness of breath, cough, wheezing, and pleuritic chest pain, Abdomen/GI: Negative for abdominal pain, nausea, vomiting, diarrhea, and constipation, MS/Extremity: Negative for injury and deformity, Skin: Negative for injury, rash, and discoloration, 10:50 Constitutional: Positive for Generalized weakness, Exam: 10:50 Constitutional: This is a well developed, well nourished patient who is awake, alert, ms3 and in no acute distress. Head/Face: Normocephalic, atraumatic. Neck: Trachea midline, no cervical lymphadenopathy. Supple, full range of motion without nuchal rigidity, or vertebral point tenderness. No Meningismus. Chest/axilla: Normal chest wall appearance and motion. Nontender with no deformity. Cardiovascular: Regular rate and rhythm with a normal S1 and S2. No gallops, murmurs, or rubs. Normal PMI, no JVD. No pulse deficits. Respiratory: Lungs have equal breath sounds bilaterally, clear to auscultation and percussion. No rales, rhonchi or wheezes noted. No increased work of breathing, no retractions or nasal flaring. Abdomen/GI: Soft, non-tender, with normal bowel sounds. No distension or tympany. No guarding or rebound. No evidence of tenderness throughout. Back: No spinal tenderness. No costovertebral tenderness. Full range of motion. Skin: Warm, dry with normal turgor. Normal color with no rashes, no lesions, and no evidence of cellulitis. MS/ Extremity: Pulses equal, no cyanosis. Neurovascular intact. Full, normal range of motion. 10:56 ECG was reviewed by the Attending Physician. ms3 Vital Signs: 10:49 BP 176 / 82; Pulse 100; Resp 15; Temp 97.7(O); Pulse Ox 98% on R/A; Weight 125 kg (M); nj1 11:25 BP 153 / 57; Pulse 71; Resp 18; Pulse Ox 97% on R/A; ld1 11:30 BP 153 / 63; Pulse 73; Resp 18; Pulse Ox 96% on R/A; ld1 12:00 BP 169 / 71; Pulse 67; Resp 18; Pulse Ox 97% on R/A; ld1 12:11 BP 169 / 71; Pulse 63; Resp 18; Pulse Ox 97% on R/A; ld1 12:30 BP 101 / 72; Pulse 63; Resp 18; Pulse Ox 97% on R/A; ld1 13:10 BP 125 / 81; Pulse 79; Resp 18; Pulse Ox 100% on R/A; ld1 13:30 BP 125 / 81; Pulse 66; Resp 18; Pulse Ox 100% on R/A; Pain 0/10; ld1 14:02 BP 124 / 52; Pulse 72; Resp 18; Pulse Ox 100% on 2 lpm NC; ld1 14:06 BP 137 / 51; Pulse 71; Resp 16; Pulse Ox 100% ; ld1 13:30 Pain Scale: Adult ld1 MDM: 10:49 Patient medically screened. ms3 10:50 Differential diagnosis: closed head injury, contusion, fracture, Electrolyte ms3 abnormality versus anemia versus arrhythmia versus myocardial infarction. 12:31 Data reviewed: vital signs, nurses notes, lab test result(s), radiologic studies, and ms3 as a result, I will admit patient. Consideration of Admission/Observation Patient was admitted/placed on observation. Management of patient was discussed with the following: Hospitalist: Discussed case with Dr Byrne and Sascha Lacy on behalf of Dr Bowens. I considered the following discharge prescriptions or medication management in the emergency department Medications were administered in the Emergency Department. See MAR. Independent interpretation of the following test(s) in the Emergency Department X-Ray: My interpretation is CXR image reviewed by me and no pulmonary edema present. Historians other than the Patient: Spouse/Significant Other: Patient's . Counseling: I had a detailed discussion with the patient and/or guardian regarding the historical points, exam findings, and any diagnostic results supporting the discharge/admit diagnosis, lab results, radiology results, the need for further work-up and treatment in the hospital. ED course: In the emergency department patient given Lokelma 10 g, insulin, glucose, calcium gluconate. Discussed case with Dr. Byrne and he will notify dialysis nurse. Discussed case with hospitalist team and accept admission. All questions were answered. Discussed necessity for admission with patient his . 06/19 10:44 Order name: Basic Metabolic Panel; Complete Time: 12:23 ms3 06/19 10:44 Order name: CBC with Diff; Complete Time: 12:08 ms3 06/19 10:44 Order name: LFT's; Complete Time: 12:23 ms3 06/19 10:44 Order name: Magnesium; Complete Time: 12:23 ms3 06/19 10:44 Order name: NT PRO-BNP; Complete Time: 12:23 ms3 06/19 10:44 Order name: PT-INR; Complete Time: 12:08 ms3 06/19 10:44 Order name: Troponin HS; Complete Time: 12:23 ms3 06/19 10:44 Order name: Urinalysis w/ reflexes ms3 06/19 12:12 Order name: BMP; Complete Time: 13:17 iw 06/19 12:14 Order name: LFT's; Complete Time: 13:17 iw 06/19 12:14 Order name: Magnesium; Complete Time: 13:17 iw 06/19 13:09 Order name: Magnesium EDMS 06/19 13:09 Order name: Phosphorus; Complete Time: 13:52 EDMS 06/19 13:09 Order name: Basic Metabolic Panel EDMS 06/19 13:09 Order name: Basic Metabolic Panel EDMS 06/19 13:09 Order name: CBC with Automated Diff EDMS 06/19 13:09 Order name: CBC with Automated Diff EDMS 06/19 13:09 Order name: NT PRO-BNP EDMS 06/19 13:09 Order name: NT PRO-BNP EDMS 06/19 15:11 Order name: Basic Metabolic Panel EDMS 06/19 15:12 Order name: Protime (+INR) EDMS 06/19 10:44 Order name: XRAY Chest (1 view); Complete Time: 12:08 ms3 06/19 10:44 Order name: CT Head C Spine; Complete Time: 11:28 ms3 06/19 10:44 Order name: EKG; Complete Time: 10:45 ms3 06/19 13:09 Order name: CONS Physician Consult EDMS 06/19 10:44 Order name: Cardiac monitoring; Complete Time: 10:53 ms3 06/19 10:44 Order name: EKG - Nurse/Tech; Complete Time: 10:53 ms3 06/19 10:44 Order name: IV Saline Lock; Complete Time: 11:28 ms3 06/19 10:44 Order name: Labs collected and sent; Complete Time: 11:28 ms3 06/19 10:44 Order name: O2 Per Protocol; Complete Time: 10:53 ms3 06/19 10:44 Order name: O2 Sat Monitoring; Complete Time: 10:53 ms3 06/19 12:06 Order name: Labs - recollect needed: recollect the chemistries/ need to confirm levels eb per Rolanda; Complete Time: 12:24 EC:56 Rate is 73 beats/min. Rhythm is regular. QRS interval is prolonged. QT interval is ms3 normal. Clinical impression: Ventricular Paced. Interpreted by me. Reviewed by me. Administered Medications: 12:44 Drug: D50W IVP 50 ml IVP once; (1 amp) Route: IVP; Site: right upper arm; ld1 12:54 Drug: Lokelma Powder 10 grams PO once Route: PO; ld1 13:09 Drug: Calcium Gluconate IVPB 2 grams IVPB once over 60 mins; (mix in NS 100 mL) Route: ld1 IVPB; Infused Over: 60 mins; Site: right upper arm; 13:09 Drug: Insulin Regular Human IVP 10 units IVP once {Co-Signature: amanuel (Ellen Garcia1 RN).} Route: IVP; Site: right upper arm; Disposition Summary: 06/19/23 12:29 Hospitalization Ordered Notes: Hospitalization Status: Inpatient Admission ms3 Condition: Stable ms3 Problem: new ms3 Symptoms: are unchanged ms3 Bed/Room Type: Standard ms3 Provider: Sam Bowens(06/19/23 12:31) ms3 Location: Intensive Care Unit(06/19/23 12:36) ms3 Room Assignment: 1-(06/19/23 14:40) eb Diagnosis - Hyperkalemia ms3 - Muscle weakness (generalized) ms3 - Essential (primary) hypertension ms3 - Fall on same level, unspecified ms3 - Anemia in chronic kidney disease ms3 Forms: - Medication Reconciliation Form ms3 - SBAR form ms3 - Leadership Thank You Letter ms3 Critical care time excluding procedures: 12:31 Critical care time: Bedside Care: 30 minutes, Consultation: 10 minutes, Family ms3 Intervention: 5 minutes. Total time: 45 minutes Signatures: Dispatcher [employer] Rebecca Aviles Lynsay RN RN ll1 Jaime Dickerson DO DO ms3 Abi Dickerson RN RN ld1 Lulú Perez RN RN nj1 Ellen Garcia RN iw Corrections: (The following items were deleted from the chart) 12:31 12:29 Jodie Jeter ms3 ms3 12:36 12:29 Telemetry/MedSurg (Inpatient) ms3 ms3 12:36 12:29 ms3 ms3 14:40 12:36 ms3 eb
[2023-06-19 12:41] LABS: Potassium 8.1 mEq/L (3.5-5.1)
[2023-06-19 12:45] LABS: ALT/SGPT 21 U/L (16-61); AST/SGOT 27 U/L (15-37); Albumin 3.1 g/dL (3.4-5.0); Alkaline Phosphatase 141 U/L (45-117); Bilirubin Total 0.3 mg/dL (0.2-1.0); Magnesium 2.8 mg/dL (1.6-2.4); Protein, Total 6.8 g/dL (6.4-8.2)
[2023-06-19 12:48] LABS: Bilirubin Direct < 0.1 mg/dL (0-0.2); Bilirubin Indirect, Calculated ND mg/dL (0.2-0.8)
[2023-06-19] MEDS ORDERED: INSULIN REGULAR (HUMAN) 100 UNIT/ML ONE (12:50)
[2023-06-19] MEDS ORDERED: CALCIUM GLUCONATE 1 GM IVPB 2 GM/100 ML BAG IV ONE (12:53)
[2023-06-19] MEDS ORDERED: D10W 250 ML IV ONE (12:54)
[2023-06-19] MEDS ORDERED: SODIUM ZIRCONIUM CYCLOSILICATE 10 GM/PKT PO ONE ×3 (13:00→17:00)
[2023-06-19] MEDS ORDERED: ONDANSETRON 4 MG/2 ML VIAL IV PRN (13:03)
[2023-06-19] MEDS ORDERED: ACETAMINOPHEN 500 MG TAB PO PRN (13:03)
--- NOTE | 2023-06-19 13:42 | P.HP ---
Certification for Inpatient With expected LOS: <2 Midnights Practitioner: I am a practitioner with admitting privileges, knowledge of patient current condition, hospital course, and medical plan of care. Services: Services provided to patient in accordance with Admission requirements found in Title 42 Section 412.3 of the Code of Federal Regulations Patient History Date of Service: 06/19/23 Primary Care Provider: Heber Manzano Reason for admission: Weakness falls, hypertension, fall History of Present Illness: Ritika Grey is 72-year-old male with a history of diabetes, hypertension, atrial fibrillation, neuropathy, GERD, end-stage renal disease on dialysis 3 times a week, diabetes mellitus type 2 insulin-dependent. Patient presented to ER via wheelchair with complaints of falls and weakness. Patient reports that the weakness started this morning, patient was able to get in the truck to go to dialysis today. On dialysis center patient was about to go back to the truck back as they were not ready for him, getting into the truck patient fell. Patient denies any pain, he denies loss of consciousness or striking his head or neck. Patient is alert and oriented, moving all extremities spontaneously. Patient denies chest pain, palpitation, and chest pressure. Patient denies fever chills or nausea vomiting.. ED course; blood pressure 176/82, heart rate 100, breathing 15, temperature 97.7, pulse ox 98% on room air. Blood pressure got better came down to 128/73 in the ER. Laboratory reports significant for sodium 133, potassium 7.9, BUN 62, creatinine 9.85. CT scan of the head is normal, CT chest shows small left pleural effusion. Admitting the patient with a diagnosis of hyperkalemia, muscle weakness generalized, essential hypertension, fall on the same level unspecified. Allergies sulfamethoxazole [From Bactrim] Allergy (Verified 11/07/19 02:52) Hives tetracycline Allergy (Verified 11/07/19 02:52) Hives trimethoprim [From Bactrim] Allergy (Verified 11/07/19 02:52) Hives Home medications list reviewed: Yes Home Medications: Apixaban [Eliquis *] 2.5 mg PO BID 04/23/19 Cholecalciferol (Vitamin D3) [Vitamin D3] 10,000 unit PO DAILY 04/23/19 Docusate [Colace Cap*] 200 mg PO BID 04/23/19 Fexofenadine HCl [Cami Allergy] 180 mg PO BEDTIME 04/23/19 Gabapentin 300 mg PO TID 04/23/19 Hydrocodone Bit/Acetaminophen [Hydrocodon-Acetaminoph 7.5-325] 1 each PO BIDP PRN 04/23/19 Insulin Glargine,Hum.rec.anlog [Lantus Solostar] 20 unit SQ BREAKFAST 04/23/19 Montelukast [Singulair*] 10 mg PO BEDTIME 04/23/19 [place]-3/Dha/Epa/Fish Oil [[place] 3 500 Softgel] 2 each PO BID 04/23/19 Pantoprazole [Protonix Tab*] 40 mg PO BID 04/23/19 Sevelamer Carbonate [Renvela*] 1,600 mg PO TIDWM 04/23/19 Aspirin Chewable [Aspirin Chewable*] 81 mg PO DAILY 11/07/19 Atorvastatin Calcium [Lipitor] 40 mg PO BEDTIME 11/07/19 Insulin Glargine Human [Lantus*] 10 unit SQ BEDTIME 11/07/19 Lidocaine/Prilocaine Crm [Emla Cream*] 1 leonides TOP PRN PRN 11/07/19 Midodrine HCl 10 mg PO SEECOM 11/07/19 Polyethyl Gly 3350 [Glycolax*] 17 gm PO DAILY 11/07/19 Midodrine HCl [Proamatine*] 10 mg PO EVERY HD #60 tab 11/19/19 - Past Medical/Surgical History Diabetic: Yes -: End-stage renal disease on hemodialysis, M/W/F -: Atrial fibrillation on chronic anti coagulation therapy -: CAD w cardiac stents -: Hyperlipidemia -: Diabetic neuropathy -: Diabetes mellitus type 2, insulin dependent -: Obstructive sleep apnea -: pericardial tamponade, pericarditis -: pulmonary embolism -: hepatitis A -: kidney stones -: pleural effusion -: pacemaker placement 04/29/19 -: thoracentesis -: Left cath & PCI- 01/03/19 & 10/23/19 -: BYPASS- aorto coronary 10/28/19 -: Sternotomy- median thoracic 10/28/19 -: Endoscopic vein harvest 10/28/19 Psychosocial/ Personal History: Patient is . Lives at home. - Family History Father -: Cancer - Social History Alcohol use: No CD- Drugs: No Caffeine use: Yes Review of Systems 10-point ROS is otherwise unremarkable ENT: Other (Negative for injury, pain ) Respiratory: Other (Negative for shortness of breath,) Cardiovascular: Other (Negative for chest pain, palpitation) Genitourinary: Other (Anuric) Musculoskeletal: Other (Generalized weakness more to the lower extremities) Physical Examination - Physical Exam General: Alert, Oriented x3, Cooperative HEENT: Atraumatic, Normocephalic, PERRLA Neck: Supple, 2+ carotid pulse no bruit Respiratory: Clear to auscultation bilaterally Cardiovascular: Regular rate/rhythm, Normal S1 S2 Capillary refill: <2 Seconds Gastrointestinal: Normal bowel sounds Musculoskeletal: No swelling, No contractures, No erythema, No tenderness, No warmth, Other (Moving all extremities spontaneously) Integumentary: No rashes, No breakdown, No significant lesion, No tenderness/swelling Neurological: Normal speech, Normal strength at 5/5 x4 extr, Normal tone, Sensation intact - Studies Laboratory Data (last 24 hrs) 06/19/23 06/19/23 06/19/23 12:18 12:18 12:18 WBC Hgb Hct Plt Count PT INR Sodium 133 L Potassium 8.1 H* BUN 60 H Creatinine 9.93 H Glucose 195 H Magnesium Cancelled 2.8 H Total Bilirubin 0.3 AST 27 ALT 21 Alkaline Phosphatase 141 H 06/19/23 06/19/23 06/19/23 11:20 11:20 11:20 WBC 11.00 H Hgb 10.7 L Hct 31.5 L Plt Count 194 PT 47.1 H INR 4.28 Sodium 133 L Potassium 7.9 H* BUN 62 H Creatinine 9.85 H Glucose 187 H Magnesium 2.7 H Total Bilirubin 0.4 AST 30 ALT 23 Alkaline Phosphatase 150 H Assessment and Plan - Plan Assessment and plan Assessment Hyperkalemia End-stage renal failure on dialysis Generalized weakness Falls Chronic A-fib On long-term anticoagulant therapy Hypertension Permanent pacemaker Hyperlipidemia Diabetes mellitus type 2 insulin-dependent Diabetic neuropathy GERD Chronic pain Hyperkalemia End-stage renal failure on dialysis * potassium 7.9, BUN 62, creatinine 9.85, patient reports that he did not take Renvela this weekend * Glucose insulin and calcium gluconate given in the emergency room * Called service clerk Dr. Byrne discussed about patient, patient will be dialyzed as soon as possible * Patient will be admitted to intensive care for close monitoring * Will repeat the potassium after hemodialysis Generalized weakness Falls * Patient reports generalized weak and started today * Falls 2 times this morning * CT head is negative, weakness and falls could be related to hyperkalemia * Will continue to monitor his electrolytes closely * Fall precautions Chronic A-fib On long-term anticoagulant therapy * Chronic, rate is controlled and patient is anticoagulated on warfarin * Takes warfarin 10 mg daily * Patient's check INR at home last INR 2.6. 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 Hyperlipidemia * Chronic controlled on atorvastatin * Continue current medications and low-fat low-cholesterol diet Diabetes mellitus type 2 insulin-dependent * Chronic controlled on insulin daily * Denies any hypoglycemic episodes * well controlled blood sugar as per the spouse * Will continue blood sugar before meals and at bedtime with a low-dose sliding scale at this time Diabetic neuropathy Chronic pain * Chronic controlled on gabapentin * Resume home medicines GERD * Chronic controlled resume home medication CODE STATUS Full code DVT prophylaxis Patient is anticoagulated on warfarin Diet Diabetic low cholesterol low-fat diet Discharge Plan: Home Plan to discharge in: 48 Hours - Advance Directives Does patient have a Living Will: No Does patient have a Durable POA for Healthcare: Yes - Code Status/Comfort Care Code Status Assessed: Yes (Full code) Code Status: Full Code
[2023-06-19] MEDS ORDERED: MIDODRINE HCL 5 MG TABLET PO PRN (14:29)
[2023-06-19] MEDS ORDERED: INSULIN GLARGINE 100 UNIT/ML SQ SCH (15:00)
[2023-06-19 15:08] LABS: Protime INR 4.73
[2023-06-19 15:11] LABS: Potassium 7.6 mEq/L (3.5-5.1)
[2023-06-19] MEDS ORDERED: SOD POLYSTYREN SUL 15 GM/60 ML UCUP PO SCH (15:23)
[2023-06-19 16:05] LABS: Hepatitis B Surface Ab - Quant 35.85 mIU/mL (<8.0); Hepatitis B surface AG Interp. Nonreactive (Nonreactive)
[2023-06-19] MEDS: INSULIN REGULAR (HUMAN) 100 UNIT/ML SQ SCH ×2 (16:30→21:00)
[2023-06-19] MEDS: INSULIN GLARGINE 100 UNIT/ML SQ SCH (16:55)
[2023-06-19] MEDS: SEVELAMER CARBONATE 800 MG TABLET PO SCH (17:00)
[2023-06-19] MEDS: carvediloL 25 MG TAB PO SCH (18:00)
--- NOTE | 2023-06-19 20:15 | P.CNS ---
Date of Consult: 06/19/23 Reason for Consult: ESRD Requesting Physician: Sam Bowens Primary Care Provider: Heber Manzano Chief Complaint: Weakness falls, hypertension, fall History of Present Illness: Ritika Grey is 72-year-old male with a history of diabetes, hypertension, atrial fibrillation, neuropathy, GERD, end-stage renal disease on dialysis 3 times a week, diabetes mellitus type 2 insulin-dependent. Patient presented to ER via wheelchair with complaints of falls and weakness. Patient reports that the weakness started this morning, patient was able to get in the truck to go to dialysis today. On dialysis center patient was about to go back to the truck back as they were not ready for him, getting into the truck patient fell. Patient denies any pain, he denies loss of consciousness or striking his head or neck. Patient is alert and oriented, moving all extremities spontaneously. Patient denies chest pain, palpitation, and chest pressure. Patient denies fever chills or nausea vomiting.. ED course; blood pressure 176/82, heart rate 100, breathing 15, temperature 97.7, pulse ox 98% on room air. Blood pressure got better came down to 128/73 in the ER. Laboratory reports significant for sodium 133, potassium 7.9, BUN 62, creatinine 9.85. CT scan of the head is normal, CT chest shows small left pleural effusion. Admitting the patient with a diagnosis of hyperkalemia, muscle weakness generalized, essential hypertension, fall on the same level unspecified. [id number] 10:50 This 72 yrs old Male presents to ER via Wheelchair with complaints of Fall Injury, ms3 Weakness. 10:50 72-year-old male with past medical history of diabetes, hypertension, atrial ms3 fibrillation, neuropathy, GERD, end-stage renal disease with dialysis on Monday, Monday, Monday presents to the emergency department for generalized weakness and fall this morning. Patient states on waking up it was difficult to set up, but patient was able to get in the truck and go to dialysis. On arriving to dialysis they were not ready for him and patient went back to the truck. Getting into his truck patient fell. Patient currently denies pain. Patient denies loss of consciousness or striking his head or neck. Patient denies any alleviating or inciting factors. Allergies sulfamethoxazole [From Bactrim] Allergy (Verified 11/07/19 02:52) Hives tetracycline Allergy (Verified 11/07/19 02:52) Hives trimethoprim [From Bactrim] Allergy (Verified 11/07/19 02:52) Hives Home medications list reviewed: Yes Home Medications: Cholecalciferol (Vitamin D3) [Vitamin D3] 10,000 unit PO DAILY 04/23/19 Docusate [Colace Cap*] 100 mg PO BID 04/23/19 Gabapentin 300 mg PO TID 04/23/19 Hydrocodone Bit/Acetaminophen [Hydrocodon-Acetaminoph 7.5-325] 1 each PO TID PRN 04/23/19 Insulin Glargine,Hum.rec.anlog [Lantus Solostar] 30 unit SQ DAILY 04/23/19 [place]-3/Dha/Epa/Fish Oil [[place] 3 500 Softgel] 2 cap PO BID 04/23/19 Pantoprazole [Protonix Tab*] 40 mg PO BID 04/23/19 Sevelamer Carbonate [Renvela*] 1,600 mg PO TIDWM 04/23/19 Aspirin Chewable [Aspirin Chewable*] 81 mg PO DAILY 11/07/19 Lidocaine/Prilocaine Crm [Emla Cream*] 1 leonides TOP PRN PRN 11/07/19 Midodrine HCl 10 mg PO SEECOM 11/07/19 Polyethyl Gly 3350 [Glycolax*] 17 gm PO DAILY 11/07/19 Carvedilol [Coreg] 25 mg PO BID 06/19/23 Folic Acid/Vit B Complex and C [Rebecca-Senthil Tablet] 0.8 mg PO DAILY 06/19/23 Insulin Aspart [Novolog Flexpen] 20 - 30 units SQ TIDWM PRN 06/19/23 Losartan Potassium 50 mg PO DAILY 06/19/23 Mecobalamin [B12 Active] 1,000 mcg PO DAILY 06/19/23 Midodrine HCl [Proamatine*] 10 mg PO EVERY HD PRN 06/19/23 NIFEdipine [Nifedipine ER] 60 mg PO BID 06/19/23 Promethazine HCl 25 mg PO Q6H PRN 06/19/23 Ranolazine [Ranolazine ER] 1 tab PO BID 06/19/23 Rosuvastatin [Crestor*] 10 mg PO BEDTIME 06/19/23 Sodium Polystyrene Sulfonate 15 g PO T,TH,S 06/19/23 Warfarin Sodium [Coumadin*] 5 mg PO M,W,F 06/19/23 Warfarin Sodium [Coumadin*] 7.5 mg PO T,TH,S 06/19/23 - Past Medical/Surgical History Diabetic: Yes -: ESRD on HD MWF (Dr. Byrne/ Dr. Hurtado) -: Atrial fibrillation on chronic anti coagulation therapy -: CAD w cardiac stents -: HLD -: DM II with Polyneuropathy -: CHRIS -: pericardial tamponade, pericarditis -: pulmonary embolism -: hepatitis A -: kidney stones -: pleural effusion -: pacemaker placement 04/29/19 -: thoracentesis -: Left cath & PCI- 01/03/19 & 10/23/19 -: BYPASS- aorto coronary 10/28/19 -: Sternotomy- median thoracic 10/28/19 -: Endoscopic vein harvest 10/28/19 Psychosocial/ Personal History: Patient is . Lives at home. - Family History Father Medical History: Cancer - Social History Smoking Status: Unknown if ever smoked Alcohol use: No CD- Drugs: No Caffeine use: Yes Review of Systems 10-point ROS is otherwise unremarkable General: Weakness Neurological: Weakness Physical Examination Temp Pulse Resp BP Pulse Ox 97 F 65 14 130/43 L 99 06/19/23 16:00 06/19/23 18:00 06/19/23 18:00 06/19/23 18:00 06/19/23 18:00 General: Oriented x3, Cooperative HEENT: Atraumatic Neck: Supple Respiratory: Normal air movement Cardiovascular: Regular rate/rhythm Gastrointestinal: Soft and benign, Non-distended Musculoskeletal: No clubbing, No contractures Integumentary: No rashes, No cyanosis Neurological: Normal speech, Abnormal gait, Abnormal strength Laboratory Data (last 24 hrs) 06/19/23 06/19/23 06/19/23 12:18 12:18 12:18 WBC Hgb Hct Plt Count PT INR Sodium 133 L Potassium 8.1 H* BUN 60 H Creatinine 9.93 H Glucose 195 H Phosphorus 4.1 Magnesium Cancelled 2.8 H Total Bilirubin 0.3 AST 27 ALT 21 Alkaline Phosphatase 141 H 10/06/19/23 06/19/23 11:20 11:20 11:20 WBC 11.00 H Hgb 10.7 L Hct 31.5 L Plt Count 194 PT 47.1 H INR 4.28 Sodium 133 L Potassium 7.9 H* BUN 62 H Creatinine 9.85 H Glucose 187 H Phosphorus Magnesium 2.7 H Total Bilirubin 0.4 AST 30 ALT 23 Alkaline Phosphatase 150 H Imagings Data: [id number] EXAM DESCRIPTION: RADChest Single View06/19/2023 11:06 am CLINICAL HISTORY: generalized weakness COMPARISON: Chest Single View dated 07/16/2019; Chest Single View dated 06/27/2019; Chest Single View dated 06/26/2019; Chest Single View dated 06/25/2019 TECHNIQUE: Portable AP view of the chest. FINDINGS: Left basilar peripheral airspace opacity with suspected small effusion, progressive since the prior exam. No pneumothorax. The cardiomediastinal contours are unremarkable. Right chest wall pacer/AICD, sequelae of prior CABG, and left subclavian vascular stent are again seen. IMPRESSION: Left basilar peripheral airspace opacity with suspected small effusion. Underlying pneumonia should be considered. [id number] EXAM DESCRIPTION: CT - [id number] - 06/19/2023 11:01 am CLINICAL HISTORY: Fall, Generalized weaknes COMPARISON: Head C Spine Mpr Wo Con dated 04/08/2017 TECHNIQUE: Axial thin cut noncontrast CT images of the head were obtained. Axial thin cut noncontrast CT images of the cervical spine were obtained. Multiplanar reformatted images were generated and reviewed. All CT scans are performed using dose optimization technique as appropriate and may include automated exposure control or mA/KV adjustment according to patient size. FINDINGS: CT HEAD WITHOUT CONTRAST: No acute hemorrhage, hydrocephalus or extra-axial collection is identified.No areas of brain edema or midline shift. The right maxillary sinus polypoidal mucosal thickening. Mastoids are clear.The calvarium is intact. CT CERVICAL SPINE WITHOUT CONTRAST: No fracture or subluxation.Straightening of normal cervical lordosis which may be positional or secondary to muscle spasm. Scattered endplate and uncovertebral joint as well as mild facet degenerative changes. Findings contribute to variable degrees of neural foraminal narrowing, up to moderate to severe on the left at C6-7. No significant bony canal stenosis.No prevertebral soft tissues swelling is identified. IMPRESSION: No acute traumatic intracranial or cervical spine findings. Straightening of normal cervical lordosis which may be positional or secondary to muscle spasm. Conclusions/Impression: ESRD on HD MWF -Acute HD today -HD TIW Hyponatremia Hyperkalemia -Acute HD today HTN with CKD/ CHF -Continue Losartan and Nifedipine Diastolic CHF, chronic -HD with UF DM II with CKD -RISS Anemia in CKD -Retacrit TIW CKD MBD -Continue Revela Case reviewed with the hospitalist team and Dr. Dickerson. Thank you kindly for the consultations Critical Care: Yes
[2023-06-19] MEDS ORDERED: ROSUVASTATIN 10 MG TAB PO SCH (21:00)
[2023-06-19] MEDS: NIFEDIPINE XL 60 MG TABLET PO SCH (21:00)
[2023-06-19] MEDS: HYDROCODONE/APAP 7.5/325 MG TAB PO PRN (23:13)
[2023-06-19] MEDS: GABAPENTIN 300 MG CAP PO SCH (23:14)
[2023-06-19] MEDS: DOCUSATE NA 100 MG CAP PO SCH (23:14)
[2023-06-19 23:54] LABS: Potassium 5.2 mEq/L (3.5-5.1)
[2023-06-20 05:10] LABS: Absolute Lymphocytes (CBC) 1.5 K/uL (0.7-4.9); Hematocrit 29.9 % (39.6-49.0); Lymphocytes % 20.4 % (15.3-44.8); MPV 9.4 fL (7.6-11.3); Platelets 191 thou/uL (152-406); RBC Red Blood Cell Count 3.02 M/uL (4.33-5.43)
[2023-06-20] MEDS: GABAPENTIN 300 MG CAP PO SCH (05:10)
[2023-06-20] MEDS: HYDROCODONE/APAP 7.5/325 MG TAB PO PRN ×2 (05:10→12:41)
[2023-06-20] MEDS: carvediloL 25 MG TAB PO SCH ×2 (05:11→17:37)
[2023-06-20 05:32] LABS: Potassium 5.9 mEq/L (3.5-5.1)
[2023-06-20 06:07] VITALS: BMI 37.4
[2023-06-20] MEDS ORDERED: PANTOPRAZOLE 40MG TABLET PO SCH (07:30)
[2023-06-20] MEDS: INSULIN REGULAR (HUMAN) 100 UNIT/ML SQ SCH ×3 (07:30→17:37)
[2023-06-20] MEDS: SEVELAMER CARBONATE 800 MG TABLET PO SCH ×3 (08:37→17:00)
[2023-06-20] MEDS ORDERED: VITAMIN D 5,000 UNIT CAP PO SCH (09:00)
[2023-06-20] MEDS: INSULIN GLARGINE 100 UNIT/ML SQ SCH (09:00)
[2023-06-20] MEDS ORDERED: LOSARTAN POTASSIUM 50 MG TABLET PO SCH (09:00)
[2023-06-20] MEDS ORDERED: ASPIRIN 81 MG CHEWABLE TABLET PO SCH (09:00)
[2023-06-20] MEDS ORDERED: CYANOCOBALAMIN 1,000 MCG TAB PO SCH (09:00)
[2023-06-20] MEDS ORDERED: DOCOSAHEXANOIC AC/EPA 1000 MG PO SCH (09:00)
[2023-06-20] MEDS: NIFEDIPINE XL 60 MG TABLET PO SCH (09:08)
[2023-06-20 09:10] VITALS: O2SAT 97
[2023-06-20] MEDS: DOCUSATE NA 100 MG CAP PO SCH (09:12)
[2023-06-20 09:43] VITALS: TEMP 99
[2023-06-20] MEDS: SODIUM ZIRCONIUM CYCLOSILICATE 10 GM/PKT PO SCH ×2 (11:00→17:28)
--- NOTE | 2023-06-20 11:22 | EKG ---
Test Date: 2023-06-19 Test Time: 10:49:54 [employer]aving Crew Foreman: BRIAN MEASUREMENT RESULTS: Intervals: Rate: 73 [place]: QRSD: 196 QT: 444 QTc: 489 [place]: P: FL: QRS: 216 T: 12 INTERPRETIVE STATEMENTS: Poor data quality, interpretation may be adversely affected Ventricular-paced rhythm Abnormal ECG Compared to ECG 11/10/2019 20:32:37 Sinus rhythm no longer present First degree AV block no longer present Right bundle-branch block no longer present Left anterior fascicular block no longer present Bifascicular block no longer present Electronically Signed On 06-20-23 11:18:55 CDT by Fernando Roberts
--- NOTE | 2023-06-20 12:37 | P.DS ---
Admission Date: 06/19/23 Discharge Date: 06/20/23 Primary Care Provider: Heber Manzano Disposition: ROUTINE DISCHARGE Discharge Condition: FAIR Reason for Admission: Weakness falls, hypertension, fall Brief History of Present Illness: Ritika Grey is 72-year-old male with a history of diabetes, hypertension, atrial fibrillation, neuropathy, GERD, end-stage renal disease on dialysis 3 times a week, diabetes mellitus type 2 insulin-dependent. Patient presented to ER via wheelchair with complaints of falls and weakness. Patient fell while trying to get into his truck after leaving the dialysis center. Patient denies any pain, he denied loss of consciousness or striking his head or neck. Patient was alert and oriented, moving all extremities spontaneously. Patient denied chest pain, palpitation, and chest pressure. Patient denied fever chills or nausea vomiting.. ED course; blood pressure 176/82, heart rate 100, breathing 15, temperature 97.7, pulse ox 98% on room air. Laboratory reports significant for sodium 133, potassium 7.9, BUN 62, creatinine 9.85. CT scan of the head is normal, CT chest shows small left pleural effusion. Patient admitted to the ICU for severe hypokalemia with generalized weakness. Hospital Course: Patient was admitted to the ICU, nephrology consulted and patient underwent emergent hemodialysis. Patient also placed on Lokelma. Potassium level iimproved. He underwent hemodialysis for 2 consecutive days. Patient weakness resolved and currently at baseline. Okay to discharge per nephrology Dr. Byrne. Patient will continue on outpatient routine hemodialysis. Patient tested positive for COVID-19 but has no respiratory symptoms. Vital Signs/Physical Exam: Temp Pulse Resp BP Pulse Ox 99.0 F 63 20 109/52 L 97 06/20/23 08:00 06/20/23 09:08 06/20/23 06:08 06/20/23 09:08 06/20/23 06:08 General: Alert, In no apparent distress, Oriented x3 HEENT: Mucous membr. moist/pink, Sclerae nonicteric Neck: Supple, JVD not distended Respiratory: Clear to auscultation bilaterally, Normal air movement Cardiovascular: No edema, Regular rate/rhythm, Normal S1 S2 Gastrointestinal: Normal bowel sounds, Soft and benign, Non-distended Musculoskeletal: No swelling Integumentary: No rashes, No cyanosis Neurological: Normal strength at 5/5 x4 extr Laboratory Data at Discharge: WBC 7.10 thou/uL (4.3-10.9) 06/20/23 04:28 Hgb 10.2 g/dL (13.6-17.9) L 06/20/23 04:28 Hct 29.9 % (39.6-49.0) L 06/20/23 04:28 Plt Count 191 thou/uL (152-406) 06/20/23 04:28 PT 52.0 SECONDS (9.5-12.5) H 06/19/23 14:34 INR 4.73 06/19/23 14:34 Sodium 134 mEq/L (136-145) L 06/20/23 04:28 Potassium 5.9 mEq/L (3.5-5.1) H D 06/20/23 04:28 BUN 26 mg/dL (7-18) H 06/20/23 04:28 Creatinine 6.00 mg/dL (0.70-1.30) H 06/20/23 04:28 Glucose 113 mg/dL (74-106) H 06/20/23 04:28 Phosphorus 4.1 mg/dL (2.5-4.9) 06/19/23 12:18 Magnesium 2.8 mg/dL (1.6-2.4) H 06/19/23 12:18 Magnesium Cancelled 06/19/23 12:18 Total Bilirubin 0.3 mg/dL (0.2-1.0) 06/19/23 12:18 AST 27 U/L (15-37) 06/19/23 12:18 ALT 21 U/L (16-61) 06/19/23 12:18 Alkaline Phosphatase 141 U/L (45-117) H 06/19/23 12:18 Home Medications: Cholecalciferol (Vitamin D3) [Vitamin D3] 10,000 unit PO DAILY 04/23/19 Docusate [Colace Cap*] 100 mg PO BID 04/23/19 Gabapentin 300 mg PO TID 04/23/19 Hydrocodone Bit/Acetaminophen [Hydrocodon-Acetaminoph 7.5-325] 1 each PO TID PRN 04/23/19 Insulin Glargine,Hum.rec.anlog [Lantus Solostar] 30 unit SQ DAILY 04/23/19 [place]-3/Dha/Epa/Fish Oil [[place] 3 500 Softgel] 2 cap PO BID 04/23/19 Pantoprazole [Protonix Tab*] 40 mg PO BID 04/23/19 Sevelamer Carbonate [Renvela*] 1,600 mg PO TIDWM 04/23/19 Aspirin Chewable [Aspirin Chewable*] 81 mg PO DAILY 11/07/19 Lidocaine/Prilocaine Crm [Emla Cream*] 1 leonides TOP PRN PRN 11/07/19 Polyethyl Gly 3350 [Glycolax*] 17 gm PO DAILY 11/07/19 Carvedilol [Coreg] 25 mg PO BID 06/19/23 Folic Acid/Vit B Complex and C [[place]becca-Senthil Tablet] 0.8 mg PO DAILY 06/19/23 Insulin Aspart [Novolog Flexpen] 20 - 30 units SQ TIDWM PRN 06/19/23 Losartan Potassium 50 mg PO DAILY 06/19/23 Mecobalamin [B12 Active] 1,000 mcg PO DAILY 06/19/23 Midodrine HCl [Proamatine*] 10 mg PO EVERY HD PRN 06/19/23 NIFEdipine [Nifedipine ER] 60 mg PO BID 06/19/23 Promethazine HCl 25 mg PO Q6H PRN 06/19/23 Ranolazine [Ranolazine ER] 1 tab PO BID 06/19/23 Rosuvastatin [Crestor*] 10 mg PO BEDTIME 06/19/23 Sodium Polystyrene Sulfonate 15 g PO T,,S 06/19/23 Warfarin Sodium [Coumadin*] 5 mg PO M,W,F 06/19/23 Warfarin Sodium [Coumadin*] 7.5 mg PO T,,S 06/19/23 Diet: Renal Activity: Ad charla Followup: NONE,NONE [Primary Care Provider] - Time spent managing pt's care (in minutes): 28
[2023-06-20 14:39] LABS: Protime INR 3.15
[2023-06-20 16:14] VITALS: BP 111/38
--- NOTE | 2023-06-20 22:27 | P.PN ---
Date of Service: 06/20/23 Vital Signs Temp Pulse Resp BP Pulse Ox 99.0 F 72 19 111/38 L 97 06/20/23 08:00 06/20/23 12:28 06/20/23 12:28 06/20/23 12:28 06/20/23 06:08 Lab Results (last 24 hrs) 06/19/23 10:44: Urine Color Cancelled, Urine Clarity Cancelled, Urine pH Cancelled, Ur Specific [place] Cancelled, Glucose (UA)(Auto) Cancelled, Urine Ketones Cancelled, Urine Blood Cancelled, Urine Nitrite Cancelled, Urine Bilirubin Cancelled, Urine Urobilinogen Cancelled, Ur Leukocyte Esterase Cancelled, Urine RBC Cancelled, Urine Red Cell Clumps Cancelled, Urine WBC Cancelled, Urine WBC Clumps Cancelled, Ur Squamous Epith Cells Cancelled, U Non- Squamous Epi Cells Cancelled, Ur Transition Epith Cell Cancelled, Ur Renal Epithelial Cell Cancelled, Calcium Carbonate Cryst Cancelled, Calcium Oxalate Crystal Cancelled, Leucine Crystals Cancelled, Cystine Crystals Cancelled, Uric Acid Crystals Cancelled, Triple Phos Crystals Cancelled, Tyrosine Crystals Cancelled, Unidentified Crystals Cancelled, Amorphous Crystals Cancelled, Urine Bacteria Cancelled, Hyaline Casts Cancelled, Granular Casts Cancelled, Waxy Casts Cancelled, RBC Casts Cancelled, WBC Casts Cancelled, Urine Mucus Cancelled, Urine Trichomonas Cancelled, Ur Yeast w Hyphae Cancelled, Urine Yeast (Budding) Cancelled, Urine Sperm Cancelled, Ur Oval Fat Bodies Cancelled, Ur Microscopic Review Cancelled, Urine Culture Reflexed Cancelled, Urine Total Protein Cancelled, Urine Ascorbic Acid Cancelled, Urine Fat Cancelled Assessment/ Plan: Nephrology No dyspnea No chest pain Weakness improved No acute events overnight Vitals, medications, blood work and imaging reviewed in the chart. General: Oriented x3, Cooperative HEENT: Atraumatic Neck: Supple Respiratory: Normal air movement Cardiovascular: Regular rate/rhythm Gastrointestinal: Soft and benign, Non-distended Musculoskeletal: No clubbing, No contractures Integumentary: No rashes, No cyanosis Neurological: Normal speech, Abnormal gait, Abnormal strength Laboratory Data (last 24 hrs) 06/19/23 06/19/23 06/19/23 12:18 12:18 12:18 WBC Hgb Hct Plt Count PT INR Sodium 133 L Potassium 8.1 H* BUN 60 H Creatinine 9.93 H Glucose 195 H Phosphorus 4.1 Magnesium Cancelled 2.8 H Total Bilirubin 0.3 AST 27 ALT 21 Alkaline Phosphatase 141 H 06/19/23 06/19/23 06/19/23 11:20 11:20 11:20 WBC 11.00 H Hgb 10.7 L Hct 31.5 L Plt Count 194 PT 47.1 H INR 4.28 Sodium 133 L Potassium 7.9 H* BUN 62 H Creatinine 9.85 H Glucose 187 H Phosphorus Magnesium 2.7 H Total Bilirubin 0.4 AST 30 ALT 23 Alkaline Phosphatase 150 H Imagings Data: [id number] EXAM DESCRIPTION: RADChest Single View06/19/2023 11:06 am CLINICAL HISTORY: generalized weakness COMPARISON: Chest Single View dated 07/16/2019; Chest Single View dated 06/27/2019; Chest Single View dated 06/26/2019; Chest Single View dated 06/25/2019 TECHNIQUE: Portable AP view of the chest. FINDINGS: Left basilar peripheral airspace opacity with suspected small effusion, progressive since the prior exam. No pneumothorax. The cardiomediastinal contours are unremarkable. Right chest wall pacer/AICD, sequelae of prior CABG, and left subclavian vascular stent are again seen. IMPRESSION: Left basilar peripheral airspace opacity with suspected small effusion. Underlying pneumonia should be considered. [id number] EXAM DESCRIPTION: CT - CTHCSPWOC - 06/19/2023 11:01 am CLINICAL HISTORY: Fall, Generalized weaknes COMPARISON: Head C Spine Mpr Wo Con dated 04/08/2017 TECHNIQUE: Axial thin cut noncontrast CT images of the head were obtained. Axial thin cut noncontrast CT images of the cervical spine were obtained. Multiplanar reformatted images were generated and reviewed. All CT scans are performed using dose optimization technique as appropriate and may include automated exposure control or mA/KV adjustment according to patient size. FINDINGS: CT HEAD WITHOUT CONTRAST: No acute hemorrhage, hydrocephalus or extra-axial collection is identified.No areas of brain edema or midline shift. The right maxillary sinus polypoidal mucosal thickening. Mastoids are clear.The calvarium is intact. CT CERVICAL SPINE WITHOUT CONTRAST: No fracture or subluxation.Straightening of normal cervical lordosis which may be positional or secondary to muscle spasm. Scattered endplate and uncovertebral joint as well as mild facet degenerative changes. Findings contribute to variable degrees of neural foraminal narrowing, up to moderate to severe on the left at C6-7. No significant bony canal stenosis.No prevertebral soft tissues swelling is identified. IMPRESSION: No acute traumatic intracranial or cervical spine findings. Straightening of normal cervical lordosis which may be positional or secondary to muscle spasm. Conclusions/Impression: ESRD on HD MWF -Acute HD today -HD TIW Hyponatremia Hyperkalemia -Acute HD today HTN with CKD/ CHF -Continue Losartan and Nifedipine Diastolic CHF, chronic -HD with UF DM II with CKD -RISS Anemia in CKD -Retacrit TIW CKD MBD -Continue [place] Hospitalist note reviewed
== END 2023-06-20 17:50 | disposition home or self-care (01) ==
LOC: ER 10:28 → ERHOLD 12:58 → INTOOBSV 12:58 → 3RD-ICU 15:12
PROVIDERS: ADMIT Hospitalist; ATTEND Internal Medicine
PROC: 5A1D70Z Performance of Urinary Filtration, Intermittent, Less than 6 Hours Per Day (ICD-10-PCS; principal; 2023-06-19)
PROC: 5A1D70Z Performance of Urinary Filtration, Intermittent, Less than 6 Hours Per Day (ICD-10-PCS; 2023-06-20)
DX: E87.5 Hyperkalemia (principal); G62.9 Polyneuropathy, unspecified; K21.9 Gastro-esophageal reflux disease without esophagitis; E11.22 Type 2 diabetes mellitus with diabetic chronic kidney disease; N18.6 End stage renal disease; I48.19 Other persistent atrial fibrillation; M62.81 Muscle weakness (generalized); I25.10 Atherosclerotic heart disease of native coronary artery without angina pectoris; E78.5 Hyperlipidemia, unspecified; E11.40 Type 2 diabetes mellitus with diabetic neuropathy, unspecified; Z95.0 Presence of cardiac pacemaker; Z95.1 Presence of aortocoronary bypass graft; Z99.2 Dependence on renal dialysis; D63.1 Anemia in chronic kidney disease; E87.1 Hypo-osmolality and hyponatremia; Z79.01 Long term (current) use of anticoagulants; I13.2 Hypertensive heart and chronic kidney disease with heart failure and with stage 5 chronic kidney disease, or end stage renal disease; I50.32 Chronic diastolic (congestive) heart failure
CPT/HCPCS: 93005; 85025 ×2; 80048 ×5; 36415 ×2; 83735 ×2; 84100; 85610 ×3; 82947 ×5; 80076 ×2; 84484; 83880 ×2; 87635; 87340; 86706; 70450; 72125; 71045; 90935 ×4; 96375; 96374; 99285; J1815; J0612; J1644 ×2; J2405; G0378 ×4

== ENCOUNTER 2024-05-08 01:29 | Emergency (ER) | payer OTHER, MEDICARE ==
--- NOTE | 2024-05-08 02:32 | ER ---
Nurse's Notes [facility] Name: Shelli Mireles Age: 73 yrs Sex: Male : 1950 Arrival Date: 05/08/2024 Time: : Bed DX2 Private MD: Diagnosis: Hyperglycemia, unspecified;Type 1 diabetes mellitus with hyperglycemia;Dependence on renal dialysis Presentation: 05/08 01:48 Chief complaint: Patient states: My last BGL was 376 and I wont have my insulin until jb4 tomorrow, but I do not know what time. I would just like a dose of insulin to get me through the night. Coronavirus screen: At this time, the client does not indicate any symptoms associated with coronavirus-19. Ebola Screen: No symptoms or risks identified at this time. Initial Sepsis Screen: Does the patient meet any 2 criteria? No. Patient's initial sepsis screen is negative. Does the patient have a suspected source of infection? No. Patient's initial sepsis screen is negative. Risk Assessment: Do you want to hurt yourself or someone else? Patient reports no desire to harm self or others. Onset of symptoms was May 08, 2024. Transition of care: patient was not received from another setting of care. 01:48 Method Of Arrival: Ambulatory jb4 01:48 Acuity: MICHELLE 4 jb4 Historical: - Allergies: 01:54 Bactrim; jb4 01:54 Sulfa (Sulfonamide Antibiotics); jb4 01:54 TETRACYCLINES; jb4 - PMHx: 01:54 Diabetes - IDDM; Hypertension; High Cholesterol; Dialysis (started 03/20/17); diabetic jb4 retinopathy; Cardiac Stents x3; PE; RENAL FAILURE; - PSHx: 01:54 bypass x 3; pacemaker; Stented artery; jb4 - Immunization history:: Adult Immunizations up to date. - Infectious Disease History:: Denies. - Social history:: Smoking status: Patient denies any tobacco usage or history of. Screenin:33 [facility] ED Fall Risk Assessment (Adult) History of falling in the last 3 months, jb4 including since admission No falls in past 3 months (0 pts) Confusion or Disorientation No (0 pts) Intoxicated or Sedated No (0 pts) Impaired Gait No (0 pts) Mobility Assist Device Used No (0 pt) Altered Elimination No (0 pt) Score/Fall Risk Level 0 - 2 = Low Risk Oriented to surroundings, Maintained a safe environment. Abuse screen: Denies threats or abuse. Nutritional screening: No deficits noted. Tuberculosis screening: No symptoms or risk factors identified. Assessment: 03:33 General: Appears in no apparent distress. comfortable. Pain: Denies pain. Neuro: Level jb4 of Consciousness is awake, alert, obeys commands. Cardiovascular: Patient's skin is warm and dry. Respiratory: Airway is patent Respiratory effort is even, unlabored, Respiratory pattern is regular, symmetrical. Derm: Skin is intact, Skin is pink, warm \T\ dry. Vital Signs: 01:48 BP 172 / 78; Pulse 82; Resp 16; Pulse Ox 100% on R/A; Weight 127.91 kg (R); Height 5 jb4 ft. 11 in. (R); Pain 0/10; 01:48 Body Mass Index 39.33 (127.91 kg, 180.34 cm) jb4 01:48 Pain Scale: Adult jb4 Echo Coma Score: 02:29 Eye Response: spontaneous(4). Motor Response: obeys commands(6). Verbal Response: whitney oriented(5). Total: 15. ED Course: 01:33 Patient arrived in ED. gm2 01:35 Alf Munguia MD is Attending Physician. [facility] 01:54 Triage completed. jb4 01:54 Arm band placed on right wrist. jb4 03:33 Patient has correct armband on for positive identification. Bed in low position. Call jb4 light in reach. Side rails up X 1. Provided Education on: discharge instructions.. 03:33 No provider procedures requiring assistance completed. Patient did not have IV access jb4 during this emergency room visit. Administered Medications: 02:15 Not Given (Patient Refused): ns 0.9% 1000 ml IV at 1 bolus Per protocol; 1000 mL bolus pc2 03:25 Drug: Insulin NPH-Regular Human Rec 70/30 Sub-Q 20 units Sub-Q once {Co-Signature: bm8 carrie (Sy Deal RN).} Route: Sub-Q; Site: right lower abdomen; 03:33 Follow up: Response: Medication administered at discharge. jb4 Medication: 03:33 VIS not applicable for this client. jb4 Outcome: 02:32 Discharge ordered by . whitney 03:33 Discharged to home ambulatory, jb4 03:33 Condition: stable 03:33 Discharge instructions given to patient, Instructed on discharge instructions, follow up and referral plans. medication usage, Demonstrated understanding of instructions, follow-up care, medications, Prescriptions given X 1, 03:35 Patient left the ED. jb4 Signatures: Alf Munguia MD MD cha Bryson, James RN RN jb4 Aracelis Salazar gm2 Claritza Perry RN pc2 Sy Deal RN bm8
--- NOTE | 2024-05-08 02:32 | EDPHYS ---
Physician Documentation [facility] Name: Shelli Mireles Age: 73 yrs Sex: Male : 1950 Arrival Date: 05/08/2024 Time: :29 Bed DX2 Private MD: ED Physician Alf Munguia HPI: 05/08 02:28 This 73 yrs old Male presents to ER via Ambulatory with complaints of High whitney Blood Sugar. 02:28 The patient or guardian reports hyperglycemia. Onset: The symptoms/episode whitney began/occurred 2 day(s) ago. Associated signs and symptoms: Pertinent positives: None. Pertinent negatives: None. Current symptoms: In the emergency department the patient's symptoms are unchanged from the initial presentation. The patient has experienced similar episodes in the past, multiple times. Historical: - Allergies: 01:54 Bactrim; jb4 01:54 Sulfa (Sulfonamide Antibiotics); jb4 01:54 TETRACYCLINES; jb4 - PMHx: 01:54 Diabetes - IDDM; Hypertension; High Cholesterol; Dialysis (started 03/20/17); diabetic jb4 retinopathy; Cardiac Stents x3; PE; RENAL FAILURE; - PSHx: 01:54 bypass x 3; pacemaker; Stented artery; jb4 - Immunization history:: Adult Immunizations up to date. - Infectious Disease History:: Denies. - Social history:: Smoking status: Patient denies any tobacco usage or history of. ROS: 02:29 Constitutional: Negative for fever, chills, and weight loss, Eyes: Negative for injury, whitney pain, redness, and discharge, ENT: Negative for injury, pain, and discharge, Neck: Negative for injury, pain, and swelling, Cardiovascular: Negative for chest pain, palpitations, and edema, Respiratory: Negative for shortness of breath, cough, wheezing, and pleuritic chest pain, Abdomen/GI: Negative for abdominal pain, nausea, vomiting, diarrhea, and constipation, Back: Negative for injury and pain, : Negative for injury, bleeding, discharge, and swelling, MS/Extremity: Negative for injury and deformity, Skin: Negative for injury, rash, and discoloration, Neuro: Negative for headache, weakness, numbness, tingling, and seizure, Psych: Negative for depression, anxiety, suicide ideation, homicidal ideation, and hallucinations, Allergy/Immunology: Negative for hives, rash, and allergies, Hematologic/Lymphatic: Negative for swollen nodes, abnormal bleeding, and unusual bruising, 02:29 Endocrine: Positive for polyuria, Exam: :29 Constitutional: This is a well developed, well nourished patient who is awake, alert, whitney and in no acute distress. Head/Face: Normocephalic, atraumatic. Eyes: Pupils equal round and reactive to light, extra-ocular motions intact. Lids and lashes normal. Conjunctiva and sclera are non-icteric and not injected. Cornea within normal limits. Periorbital areas with no swelling, redness, or edema. ENT: Nares patent. No nasal discharge, no septal abnormalities noted. Tympanic membranes are normal and external auditory canals are clear. Oropharynx with no redness, swelling, or masses, exudates, or evidence of obstruction, uvula midline. Mucous membranes moist. Neck: Trachea midline, no thyromegaly or masses palpated, and no cervical lymphadenopathy. Supple, full range of motion without nuchal rigidity, or vertebral point tenderness. No Meningismus. Chest/axilla: Normal chest wall appearance and motion. Nontender with no deformity. No lesions are appreciated. Cardiovascular: Regular rate and rhythm with a normal S1 and S2. No gallops, murmurs, or rubs. Normal PMI, no JVD. No pulse deficits. Respiratory: Lungs have equal breath sounds bilaterally, clear to auscultation and percussion. No rales, rhonchi or wheezes noted. No increased work of breathing, no retractions or nasal flaring. Abdomen/GI: Soft, non-tender, with normal bowel sounds. No distension or tympany. No guarding or rebound. No evidence of tenderness throughout. Back: No spinal tenderness. No costovertebral tenderness. Full range of motion. Male : Normal genitalia with no discharge or lesions. Skin: Warm, dry with normal turgor. Normal color with no rashes, no lesions, and no evidence of cellulitis. MS/ Extremity: Pulses equal, no cyanosis. Neurovascular intact. Full, normal range of motion. Neuro: Awake and alert, GCS 15, oriented to person, place, time, and situation. Cranial nerves II-XII grossly intact. Motor strength 5/5 in all extremities. Sensory grossly intact. Cerebellar exam normal. Normal gait. Psych: Awake, alert, with orientation to person, place and time. Behavior, mood, and affect are within normal limits. Vital Signs: 01:48 BP 172 / 78; Pulse 82; Resp 16; Pulse Ox 100% on R/A; Weight 127.91 kg (R); Height 5 jb4 ft. 11 in. (R); Pain 0/10; 01:48 Body Mass Index 39.33 (127.91 kg, 180.34 cm) jb4 01:48 Pain Scale: Adult jb4 [place] Coma Score: 02:29 Eye Response: spontaneous(4). Motor Response: obeys commands(6). Verbal Response: whitney oriented(5). Total: 15. MDM: 01:35 Patient medically screened. whitney 02:30 Differential diagnosis: diabetes insipidus, DKA, hyperglycemia. Data reviewed: vital whitney signs, nurses notes. Consideration of Admission/Observation Escalation of care including admission/observation considered. I considered the following discharge prescriptions or medication management in the emergency department Medications were administered in the Emergency Department. See MAR. Test considered but Not performed: Labs: no labs per pt. Historians other than the Patient: pt well informed. Care significantly affected by the following chronic conditions: Diabetes, Hypertension, Chronic Kidney Disease, high chlesterol, dialysis. 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 05/08 02:11 Order name: Glucose, Ancillary Testing; Complete Time: 02:27 EDMS 05/08 01:35 Order name: EKG; Complete Time: 01:36 whitney Administered Medications: 02:15 Not Given (Patient Refused): ns 0.9% 1000 ml IV at 1 bolus Per protocol; 1000 mL bolus pc2 03:25 Drug: Insulin NPH-Regular Human Rec 70/30 Sub-Q 20 units Sub-Q once {Co-Signature: bm8 jb4 (Sy Deal RN).} Route: Sub-Q; Site: right lower abdomen; 03:33 Follow up: Response: Medication administered at discharge. jb4 Disposition Summary: 05/08/24 02:32 Discharge Ordered Notes: Location: Home whitney Problem: new whitney Symptoms: have improved whitney Condition: Stable whitney Diagnosis - Hyperglycemia, unspecified whitney - Type 1 diabetes mellitus with hyperglycemia whitney - Dependence on renal dialysis whitney Followup: whitney - With: Private Physician - When: 2 - 3 days - Reason: Recheck today's complaints, Continuance of care, Re-evaluation by your physician Discharge Instructions: - Discharge Summary Sheet whitney - Type 1 Diabetes Mellitus, Diagnosis, Adult whitney - Hyperglycemia whitney - Dialysis whitney - Blood Glucose Monitoring, Adult whitney - Diabetes Mellitus and Nutrition, Adult whitney - Hyperglycemia, [id number] whitney - Insulin Treatment for Diabetes Mellitus whitney Forms: - Medication Reconciliation Form whitney - Antibiotic Education whitney - Prescription Opioid Use whitney - Patient Portal Instructions whitney - Leadership Thank You Letter [facility] Prescriptions: - Novolin 70/30 U-100 Insulin 100 unit/mL (70-30) Subcutaneous suspension - inject 30 unit SUBCUTANEOUS route once daily; 10 milliliter; Refills: 0, whitney Product Selection Permitted 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 EDMS EDMS 02:03 01:36 Urinalysis+U.LAB.BRZ ordered. EDMS EDMS 02:04 01:36 BASIC METABOLIC PANEL+C.LAB.BRZ ordered. EDMS EDMS 02:04 01:36 CBC+H.LAB.BRZ ordered. EDMS EDMS 02:04 01:36 HEPATIC FUNCTION+C.LAB.BRZ ordered. EDMS EDMS 02:04 01:36 MAGNESIUM+C.LAB.BRZ ordered. EDMS EDMS 02:04 01:36 PROBNP+C.LAB.BRZ ordered. EDMS EDMS 02:04 01:36 PROTIME (+INR)+COAG.LAB.BRZ ordered. EDMS EDMS 02:04 01:36 Troponin High Sensitivity+C.LAB.BRZ ordered. EDMS EDMS 02:04 01:36 LIPASE+C.LAB.BRZ ordered. EDMS EDMS 02:15 01:35 Cardiac monitoring ordered. [facility] pc2 02:15 01:35 EKG - Nurse/Tech ordered. [facility] pc2 02:15 01:35 IV Saline Lock ordered. [facility] pc2 02:15 01:35 Labs collected and sent ordered. whitney pc2 02:15 01:35 Oxygen Per Protocol ordered. whitney pc2 02:15 01:35 O2 Sat Monitoring ordered. whitney pc2
[2024-05-08] MEDS ORDERED: INSULIN 70/30 100 UNITS/ML SQ ONE (03:11)
[2024-05-08 03:39] VITALS: BP 172/78; O2SAT 100
== END 2024-05-08 03:35 | disposition home or self-care (01) ==
LOC: ER 01:29
DX: E10.65 Type 1 diabetes mellitus with hyperglycemia (principal); I12.0 Hypertensive chronic kidney disease with stage 5 chronic kidney disease or end stage renal disease; N18.6 End stage renal disease; Z99.2 Dependence on renal dialysis; Z95.1 Presence of aortocoronary bypass graft; Z95.0 Presence of cardiac pacemaker
CPT/HCPCS: 82947; 96372; 99283; J1815

== ENCOUNTER 2024-06-05 18:05 | Emergency (ER) | payer OTHER, MEDICARE ==
--- NOTE | 2024-06-05 18:50 | EDPHYS ---
Physician Documentation [facility] Name: Shelli Mireles Age: 73 yrs Sex: Male : 1950 Arrival Date: 06/05/2024 Time: 18:05 Bed 17 Private MD: TUSHAR Physician Alf Munguia HPI: 06/05 18:43 This 73 yrs old Male presents to ER via Wheelchair with complaints of whitney Bleeding. 18:43 The patient or guardian complains of pain, BLEEDING. The complaints affect the left whitney antecubital area. Context: The problem was sustained at a DIALYSIS. Onset: The symptoms/episode began/occurred just prior to arrival. Modifying factors: The symptoms are alleviated by nothing. remaining still, the symptoms are aggravated by movement. Severity of symptoms: At their worst the symptoms were mild, in the emergency department the symptoms are unchanged. The patient has experienced similar episodes in the past, several times. Historical: - Allergies: 18:24 Bactrim; tm6 18:24 Sulfa (Sulfonamide Antibiotics); tm6 18:24 TETRACYCLINES; tm6 - PMHx: 18:24 Cardiac Stents x3; Diabetes - IDDM; diabetic retinopathy; Dialysis (started 03/20/17); tm6 High Cholesterol; Hypertension; PE; RENAL FAILURE; - PSHx: 18:24 bypass x 3; pacemaker; Stented artery; tm6 - Immunization history:: Client reports receiving the 2nd dose of the Covid vaccine. - Infectious Disease History:: Denies. - Social history:: Smoking status: Patient denies any tobacco usage or history of. Patient/guardian denies using alcohol. - Family history:: not pertinent. ROS: 18:43 Constitutional: Negative for fever, chills, and weight loss, Eyes: Negative for injury, whitney pain, redness, and discharge, ENT: Negative for injury, pain, and discharge, Neck: Negative for injury, pain, and swelling, Cardiovascular: Negative for chest pain, palpitations, and edema, Respiratory: Negative for shortness of breath, cough, wheezing, and pleuritic chest pain, Abdomen/GI: Negative for abdominal pain, nausea, vomiting, diarrhea, and constipation, Back: Negative for injury and pain, : Negative for injury, bleeding, discharge, and swelling, Skin: Negative for injury, rash, and discoloration, Neuro: Negative for headache, weakness, numbness, tingling, and seizure, Psych: Negative for depression, anxiety, suicide ideation, homicidal ideation, and hallucinations, Allergy/Immunology: Negative for hives, rash, and allergies, Endocrine: Negative for neck swelling, polydipsia, polyuria, polyphagia, and marked weight changes, Hematologic/Lymphatic: Negative for swollen nodes, abnormal bleeding, and unusual bruising, 18:43 MS/extremity: Positive for pain, LEFT AV FISTULA BLEEDING, Exam: 18:43 Constitutional: This is a well developed, well nourished patient who is awake, alert, whitney and in no acute distress. Head/Face: Normocephalic, atraumatic. Eyes: Pupils equal round and reactive to light, extra-ocular motions intact. Lids and lashes normal. Conjunctiva and sclera are non-icteric and not injected. Cornea within normal limits. Periorbital areas with no swelling, redness, or edema. ENT: Nares patent. No nasal discharge, no septal abnormalities noted. Tympanic membranes are normal and external auditory canals are clear. Oropharynx with no redness, swelling, or masses, exudates, or evidence of obstruction, uvula midline. Mucous membranes moist. Neck: Trachea midline, no thyromegaly or masses palpated, and no cervical lymphadenopathy. Supple, full range of motion without nuchal rigidity, or vertebral point tenderness. No Meningismus. Chest/axilla: Normal chest wall appearance and motion. Nontender with no deformity. No lesions are appreciated. Cardiovascular: Regular rate and rhythm with a normal S1 and S2. No gallops, murmurs, or rubs. Normal PMI, no JVD. No pulse deficits. Respiratory: Lungs have equal breath sounds bilaterally, clear to auscultation and percussion. No rales, rhonchi or wheezes noted. No increased work of breathing, no retractions or nasal flaring. Abdomen/GI: Soft, non-tender, with normal bowel sounds. No distension or tympany. No guarding or rebound. No evidence of tenderness throughout. Back: No spinal tenderness. No costovertebral tenderness. Full range of motion. Male : Normal genitalia with no discharge or lesions. Skin: Warm, dry with normal turgor. Normal color with no rashes, no lesions, and no evidence of cellulitis. Neuro: Awake and alert, GCS 15, oriented to person, place, time, and situation. Cranial nerves II-XII grossly intact. Motor strength 5/5 in all extremities. Sensory grossly intact. Cerebellar exam normal. Normal gait. Psych: Awake, alert, with orientation to person, place and time. Behavior, mood, and affect are within normal limits. 18:43 Musculoskeletal/extremity: ROM: full active range of motion, full passive range of motion, Circulation is intact in all extremities. Sensation intact. Compartment Syndrome exam of affected extremity: no pain, Vital Signs: 18:22 BP 115 / 72; Pulse 69; Resp 19; Temp 97.2(TE); Pulse Ox 99% on R/A; MAP 87 mmHg; Weight tm6 126.1 kg; Height 5 ft. 11 in. ; Pain 0/10; 18:22 Body Mass Index 38.77 (126.10 kg, 180.34 cm) tm6 18:22 Pain Scale: Adult tm6 MDM: 18:24 Patient medically screened. [facility] 18:43 Differential diagnosis: contusion. Data reviewed: vital signs, nurses notes. whitney Consideration of Admission/Observation Escalation of care including admission/observation considered. I considered the following discharge prescriptions or medication management in the emergency department Medications were administered in the Emergency Department. See MAR. Test considered but Not performed: Labs: NO LABS. Historians other than the Patient: Spouse/Significant Other: WELL INFORMED. Care significantly affected by the following chronic conditions: Diabetes, Hypertension, Obesity, Chronic Kidney Disease. 06/05 18:42 Order name: Dressing - Wound; Complete Time: 18:49 whitney 06/05 18:42 Order name: Gloves, Sterile; Complete Time: 18:49 whitney 06/05 18:42 Order name: Prolene, Sutures; Complete Time: 18:49 whitney 06/05 18:42 Order name: Setup Suture Tray; Complete Time: 18:49 whitney 06/05 18:42 Order name: Wound dressing; Complete Time: 18:49 [facility] Administered Medications: 19:08 Drug: Cephalexin PO 500 mg PO once Route: PO; kc6 Disposition Summary: 06/05/24 18:49 Discharge Ordered Notes: Location: Home whitney Problem: new whitney Symptoms: have improved whitney Condition: Stable whitney Diagnosis - Puncture wound without foreign body of left upper arm, initial encounter - whitney BLEEDING, AV FISTULA - Dependence on renal dialysis whitney Followup: whitney - With: Private Physician - When: 2 - 3 days - Reason: Recheck today's complaints, Continuance of care, Re-evaluation by your physician Followup: whitney - With: Luis Armando Lund MD - When: 2 - 3 days - Reason: Recheck today's complaints, Re-evaluation by your physician Discharge Instructions: - Discharge Summary Sheet whitney - Puncture Wound whitney - Vascular Access for Hemodialysis whitney - Puncture Wound, [id number] whitney - Hemodialysis, [id number] whitney Forms: - Medication Reconciliation Form whitney - Antibiotic Education whitney - Prescription Opioid Use whitney - Patient Portal Instructions whitney - Leadership Thank You Letter [facility] Prescriptions: - Cephalexin 500 mg Oral capsule - take 1 capsule ORAL route every 6 hours for 7 days; 28 capsule; Refills: 0, whitney Product Selection Permitted Signatures: Alf Munguia MD MD cha Campbell, Kaitlyn, RN RN kc6 Dajuan Lea RN RN tm6
--- NOTE | 2024-06-05 18:50 | ER ---
Nurse's Notes [facility] Name: Shelli Mireles Age: 73 yrs Sex: Male : 1950 Arrival Date: 06/05/2024 Time: 18:05 Bed 17 Private MD: Diagnosis: Puncture wound without foreign body of left upper arm, initial encounter-BLEEDING, AV FISTULA;Dependence on renal dialysis Presentation: 06/05 18:22 Chief complaint: Patient states: had dialysis today, now bleeding from left arm tm6 fistula. Coronavirus screen: Vaccine status: Patient reports receiving the 2nd dose of the covid vaccine. Ebola Screen: Patient negative for fever greater than or equal to 101.5 degrees Fahrenheit, and additional compatible Ebola Virus Disease symptoms Patient denies exposure to infectious person. Patient denies travel to an Ebola-affected area in the 21 days before illness onset. No symptoms or risks identified at this time. Initial Sepsis Screen: Does the patient meet any 2 criteria? No. Patient's initial sepsis screen is negative. Does the patient have a suspected source of infection? No. Patient's initial sepsis screen is negative. Risk Assessment: Do you want to hurt yourself or someone else? Patient reports no desire to harm self or others. Onset of symptoms was June 05, 2024. 18:22 Method Of Arrival: Wheelchair tm6 18:22 Acuity: MICHELLE 3 tm6 Triage Assessment: 18:24 General: Appears uncomfortable, Behavior is cooperative. Pain: Denies pain. EENT: No tm6 signs and/or symptoms were reported regarding the EENT system. Neuro: Level of Consciousness is awake, alert, obeys commands, Oriented to person, place, time, situation. Cardiovascular: Patient's skin is warm and dry. Respiratory: Airway is patent Respiratory effort is even, unlabored, Respiratory pattern is regular, symmetrical. GI: No signs and/or symptoms were reported involving the gastrointestinal system. Abdomen is round non-distended. : No signs and/or symptoms were reported regarding the genitourinary system. Derm: Wound noted left arm Wound is bleeding from HD fistula. Musculoskeletal: No signs and/or symptoms reported regarding the musculoskeletal system. Historical: - Allergies: 18:24 Bactrim; tm6 18:24 Sulfa (Sulfonamide Antibiotics); tm6 18:24 TETRACYCLINES; tm6 - PMHx: 18:24 Cardiac Stents x3; Diabetes - IDDM; diabetic retinopathy; Dialysis (started 03/20/17); tm6 High Cholesterol; Hypertension; PE; RENAL FAILURE; - PSHx: 18:24 bypass x 3; pacemaker; Stented artery; tm6 - Immunization history:: Client reports receiving the 2nd dose of the Covid vaccine. - Infectious Disease History:: Denies. - Social history:: Smoking status: Patient denies any tobacco usage or history of. Patient/guardian denies using alcohol. - Family history:: not pertinent. Screenin:50 [facility] ED Fall Risk Assessment (Adult) History of falling in the last 3 months, kc6 including since admission No falls in past 3 months (0 pts) Confusion or Disorientation No (0 pts) Intoxicated or Sedated No (0 pts) Impaired Gait No (0 pts) Mobility Assist Device Used No (0 pt) Altered Elimination No (0 pt) Score/Fall Risk Level 0 - 2 = Low Risk Oriented to surroundings. Abuse screen: Denies threats or abuse. Denies injuries from another. Nutritional screening: No deficits noted. Tuberculosis screening: No symptoms or risk factors identified. Assessment: 18:50 General: Appears in no apparent distress. comfortable, obese, well groomed, well kc6 developed, Behavior is calm, cooperative, appropriate for age. Pain: Denies pain. Neuro: Level of Consciousness is awake, alert, obeys commands, Oriented to person, place, time, situation, Appropriate for age. Cardiovascular: Capillary refill < 3 seconds Dialysis shunt: in the left arm, with palpable thrill, with auscultated bruit, with no erythema, with no edema, mild amount of bleeding noted. Respiratory: Airway is patent Trachea midline Respiratory effort is even, unlabored, Respiratory pattern is regular, symmetrical. GI: No signs and/or symptoms were reported involving the gastrointestinal system. : No signs and/or symptoms were reported regarding the genitourinary system. EENT: No signs and/or symptoms were reported regarding the EENT system. Derm: Skin is healthy with good turgor, Skin is dry, Skin is pink, warm \T\ dry. Skin temperature is warm. Musculoskeletal: No signs and/or symptoms reported regarding the musculoskeletal system. Circulation, motion, and sensation intact. Capillary refill < 3 seconds, Range of motion: intact in all extremities. Injury Description: Laceration sustained to left arm is clean, superficial, with pulsatile bleeding, was sustained 1-2 hours ago. a small amount of bleeding noted at this time. A dressing was applied. Vital Signs: 18:22 BP 115 / 72; Pulse 69; Resp 19; Temp 97.2(TE); Pulse Ox 99% on R/A; MAP 87 mmHg; Weight tm6 126.1 kg; Height 5 ft. 11 in. ; Pain 0/10; 18:22 Body Mass Index 38.77 (126.10 kg, 180.34 cm) tm6 18:22 Pain Scale: Adult 6 ED Course: 18:06 Patient arrived in ED. mg5 18:23 Triage completed. [facility] 18:24 Alf Munguia MD is Attending Physician. [facility] 18:24 Arm band placed on right wrist. 6 18:47 Luis Armando Lund MD is Referral Physician. [facility] 18:49 Stephanie Costa RN is Primary Nurse. [facility] 18:49 Patient has correct armband on for positive identification. Bed in low position. Call 6 light in reach. Side rails up X 1. Adult w/ patient. Pulse ox on. NIBP on. Door closed. Noise minimized. Lights dimmed. Pillow given. 18:49 Assist provider with laceration repair on left arm that was 2.5 cm. or less using [facility] sutures. Set up tray. Performed by Alf Munguia MD Dressed with 4X4s, Patient tolerated well. Patient maintains SpO2 saturation greater than 95% on room air. Julian wrap to left elbow. 19:08 Patient did not have IV access during this emergency room visit. [facility] 19:09 Provided Education on: wound care, f/u in 7-10 days to have stitch removed. [facility] Administered Medications: 19:08 Drug: Cephalexin PO 500 mg PO once Route: PO; [facility] Medication: 19:08 VIS not applicable for this client. [facility] Outcome: 18:49 Discharge ordered by . [facility] 19:08 Discharged to home via wheelchair, with family, with significant other, [facility] 19:08 Condition: good 19:08 Discharge instructions given to patient, significant other, Instructed on discharge instructions, follow up and referral plans. medication usage, wound care, Demonstrated understanding of instructions, follow-up care, medications, wound care, Prescriptions given X 19:09 Patient left the ED. kc6 Signatures: Alf Munguia MD MD cha Campbell, Kaitlyn RN RN kc6 Soraida Garcia 5 Dajuan Lea RN RN tm6
[2024-06-05] MEDS ORDERED: CEPHALEXIN 250 MG CAP ONE (18:58)
[2024-06-06 10:25] VITALS: BP 115/72; TEMP 97.2; O2SAT 99
== END 2024-06-05 19:09 | disposition home or self-care (01) ==
LOC: ER 18:05
PROC: 0JQH0ZZ Repair Left Lower Arm Subcutaneous Tissue and Fascia, Open Approach (ICD-10-PCS; principal; 2024-06-05)
DX: S41.112A Laceration without foreign body of left upper arm, initial encounter (principal); T82.838A Hemorrhage due to vascular prosthetic devices, implants and grafts, initial encounter; E11.9 Type 2 diabetes mellitus without complications; I10 Essential (primary) hypertension; N18.6 End stage renal disease; E66.9 Obesity, unspecified; Z68.38 Body mass index [BMI] 38.0-38.9, adult; Z99.2 Dependence on renal dialysis; X58.XXXA Exposure to other specified factors, initial encounter; Z95.0 Presence of cardiac pacemaker; Z95.5 Presence of coronary angioplasty implant and graft; Z88.1 Allergy status to other antibiotic agents; Z88.2 Allergy status to sulfonamides; Z88.3 Allergy status to other anti-infective agents
CPT/HCPCS: 99284

== ENCOUNTER 2025-04-17 23:54 | Inpatient (IN) | payer OTHER, MEDICARE ==
[2025-04-18] MEDS ORDERED: IPRATROPIUM BROM 0.5MG/2.5ML ONE (00:25)
[2025-04-18] MEDS ORDERED: ALBUTEROL 2.5 MG/3 ML NEB SOL ONE (00:25)
[2025-04-18 00:57] LABS: Absolute Lymphocytes (CBC) 1.1 K/uL (0.7-4.9); Hematocrit 28.4 % (39.6-49.0); Hemoglobin 9.6 g/dL (13.6-17.9); MCH 30.9 pg (27.0-35.0); MCHC 33.7 g/dL (32.0-36.0); MCV 91.6 fL (80-100); MPV 10.2 fL (7.6-11.3); Nucleated RBC Absolute Count 0.0 (0-0); Nucleated Red Blood Cells % 0.0 % (0-0); RBC Red Blood Cell Count 3.10 M/uL (4.33-5.43); White Blood Count 8.50 thou/uL (4.3-10.9)
[2025-04-18 01:06] LABS: PT Prothrombin Time 31.6 SECONDS (10-13.0); PTT, Activated Partial Thromb 54.6 SECONDS (27.2-37.4); Protime INR 2.88
[2025-04-18 01:08] LABS: Influenza A Ag Negative; Influenza B Ag Negative; SARS-CoV-2 Antigen Rapid Res Negative (Negative)
[2025-04-18] MEDS ORDERED: NA CHLORIDE 0.9% 250 ML ONE (01:11)
[2025-04-18] MEDS ORDERED: CEFTRIAXONE 1000 MG/VIAL ONE (01:11)
[2025-04-18] MEDS ORDERED: AZITHROMYCIN 500 MG INJ IVPB ONE (01:11)
[2025-04-18 01:13] LABS: ALT/SGPT 22.0 U/L (16-61); AST/SGOT 13.0 U/L (15-37); Albumin 3.4 g/dL (3.4-5.0); Albumin/Globulin Ratio 1.0 (1.1-1.8); Alkaline Phosphatase 88.0 U/L (45-117); Anion Gap 10.7 mEq/L (5.0-15.0); BUN Blood Urea Nitrogen 29.0 mg/dL (7-18); Globulin 3.3 g/dL (2.3-3.5); Glucose Level 148.0 mg/dL (74-106); NT PRO-BNP 25957.0 pg/mL (<125); Potassium 3.7 mEq/L (3.5-5.1); Troponin High Sensitivity 27.9 pg/mL (<58.9)
--- NOTE | 2025-04-18 01:47 | ER ---
Nurse's Notes [facility] Name: Shelli Mireles Age: 74 yrs Sex: Male : 1950 Arrival Date: 04/17/2025 Time: 23:54 Bed 6 Private MD: Juan Pablo Byrne Diagnosis: Hypoxemia;Acute pulmonary edema;Cough Presentation: 04/18 00:09 Chief complaint: Patient states: C/O COUGH, SOB THAT BEGAN MONDAY. DENIES PAIN OR br2 FEVER. PT HAD DIALYSIS ON MONDAY. PT ARRIVES TO ER AT 80% RA.....94% WITH 3L N/C. Coronavirus screen: Client denies travel out of the [place] in the last 14 days. Ebola Screen: Patient denies exposure to infectious person. Initial Sepsis Screen: Does the patient meet any 2 criteria? RR > 20 per min. Does the patient have a suspected source of infection? No. Patient's initial sepsis screen is negative. Risk Assessment: Do you want to hurt yourself or someone else? Patient reports no desire to harm self or others. Onset of symptoms was April 14, 2025. 00:09 Method Of Arrival: Wheelchair br2 00:09 Acuity: MICHELLE 3 br2 Triage Assessment: 00:13 General: Appears uncomfortable, Behavior is calm, cooperative. Pain: Denies pain. br2 Respiratory: Reports shortness of breath at rest cough that is productive. 02:18 Respiratory: Onset: The symptoms/episode began/occurred gradually, the patient has bm8 moderate shortness of breath. Historical: - Allergies: 00:13 Bactrim; br2 00:13 Sulfa (Sulfonamide Antibiotics); br2 00:13 TETRACYCLINES; br2 - PMHx: 00:13 Cardiac Stents x3; Diabetes - IDDM; diabetic retinopathy; Dialysis (started 03/20/17); br2 High Cholesterol; Hypertension; PE; RENAL FAILURE; - PSHx: 00:13 bypass x 3; pacemaker; Stented artery; br2 - Immunization history:: Adult Immunizations up to date. - Infectious Disease History:: Denies. - Social history:: Smoking status: Patient denies any tobacco usage or history of. Patient/guardian denies using alcohol, street drugs. Screenin:[address] [facility] ED Fall Risk Assessment (Adult) History of falling in the last 3 months, vc1 including since admission No falls in past 3 months (0 pts) Confusion or Disorientation No (0 pts) Intoxicated or Sedated No (0 pts) Impaired Gait No (0 pts) Mobility Assist Device Used Yes (1 pt) Altered Elimination No (0 pt) Score/Fall Risk Level 0 - 2 = Low Risk Oriented to surroundings, Maintained a safe environment, Educated pt \T\ family on fall prevention, incl call for assistance when getting out of bed, Assessed \T\ reinforced patient's understanding of fall precautions, Hourly rounding (assess needs \T\ fall precautionary measures) done. Abuse screen: Denies threats or abuse. Nutritional screening: No deficits noted. Tuberculosis screening: No symptoms or risk factors identified. Assessment: 00:33 Reassessment:. bm8 01:21 Reassessment: Patient appears in no apparent distress at this time. Patient and/or bm8 family updated on plan of care and expected duration. Pain level reassessed. Patient is alert, oriented x 3, equal unlabored respirations, skin warm/dry/pink. Patient denies pain at this time. Patient states feeling better. Patient states symptoms have improved. General: Appears in no apparent distress. comfortable, Behavior is calm, cooperative, appropriate for age. Pain: Denies pain. Neuro: No deficits noted. Level of Consciousness is awake, alert, obeys commands, Oriented to person, place, time, situation, Appropriate for age. Cardiovascular: Denies chest pain, Rhythm is Respiratory: Airway is patent Respiratory effort is even, unlabored, Respiratory pattern is regular, symmetrical, Breath sounds are coarse bilaterally. GI: No signs and/or symptoms were reported involving the gastrointestinal system. : No signs and/or symptoms were reported regarding the genitourinary system. EENT: No signs and/or symptoms were reported regarding the EENT system. Derm: No signs and/or symptoms reported regarding the dermatologic system. Musculoskeletal: No signs and/or symptoms reported regarding the musculoskeletal system. 02:17 Reassessment: Patient appears in no apparent distress at this time. No changes from bm8 previously documented assessment. Patient and/or family updated on plan of care and expected duration. Pain level reassessed. Patient is alert, oriented x 3, equal unlabored respirations, skin warm/dry/pink. Patient denies pain at this time. Patient states feeling better. Patient states symptoms have improved. Vital Signs: 00:09 BP 154 / 93; Pulse 104; Resp 24; Temp 97.3; Pulse Ox 80% 3 lpm ; FiO2 94 %; Weight br2 112.94 kg; Height 5 ft. 11 in. ; Pain 0/10; 00:24 BP 163 / 53; Pulse 101; Resp 22; Pulse Ox 95% on 3 lpm NC; vc1 01:33 BP 155 / 53; Pulse 91; Resp 18; Temp 97.3; Pulse Ox 96% on 2 lpm NC; Pain 0/10; bm8 02:17 BP 148 / 56; Pulse 88; Resp 17; Temp 97.3; Pulse Ox 93% on 2 lpm NC; Pain 0/10; bm8 00:09 Body Mass Index 34.73 (112.94 kg, 180.34 cm) br2 00:09 Pain Scale: Adult br2 01:33 Pain Scale: Adult bm8 02:17 Pain Scale: Adult bm8 Echo Coma Score: 01:21 Eye Response: spontaneous(4). Motor Response: obeys commands(6). Verbal Response: bm8 oriented(5). Total: 15. 01:33 Eye Response: spontaneous(4). Motor Response: obeys commands(6). Verbal Response: bm8 oriented(5). Total: 15. 02:17 Eye Response: spontaneous(4). Motor Response: obeys commands(6). Verbal Response: bm8 oriented(5). Total: 15. ED Course: 04/17 23:57 Patient arrived in ED. jj6 23:57 Juan Pablo Byrne DO is Private Physician. jj6 23:57 [facility] cp 23:57 Levon Bowens MD is Attending Physician. cp 04/18 00:13 Triage completed. br2 00:13 Arm band placed on right wrist. br2 00:20 No provider procedures requiring assistance completed. bm8 00:20 Initial lab(s) drawn, by me, sent to lab. First set of blood cultures drawn by me, EKG bm8 done, by ED staff, reviewed by Levon Bowens MD COVID swab sent to lab. Flu and/or RSV swab sent to lab. Inserted saline lock: 18 gauge in right forearm, using aseptic technique. ,using aseptic technique. ultrasound guided Blood collected. Flushed with 10 mL NS. Oxygen administered via a nebulizer mask. Response to oxygen therapy: symptoms improved. 00:24 Sy Deal, RN is Primary Nurse. bm8 00:27 Patient has correct armband on for positive identification. Bed in low position. Call vc1 light in reach. Side rails up X2. Adult w/ patient. Provided Education on: Nebulizer. color television console monitor on. Pulse ox on. NIBP on. 00:45 Chest Single View XRAY In Process Unspecified. EDMS 01:46 Demetrio Vasquez, [facility] is Hospitalizing Provider. cp 02:17 Patient admitted, IV remains in place. bm8 Administered Medications: 00:29 Drug: DuoNeb Nebulize (2.5 mg - 0.5 mg) 3 ml Nebulizer once Route: Nebulizer; bm8 01:20 Follow up: Response: No adverse reaction bm8 01:15 Drug: Rocephin IV 1 grams IV at calculated rate once; Given slow IV push per pharmacy bm8 instructions Route: IV; Rate: calculated rate; Site: right forearm; 02:18 Follow up: Response: No adverse reaction; IV Status: Completed infusion bm8 01:20 Drug: Zithromax IVPB 500 mg IVPB once over 1 hrs; mix in 250 mL NS Route: IVPB; Infused bm8 Over: 1 hrs; Site: right forearm; 02:18 Follow up: Response: No adverse reaction; IV Status: Completed infusion bm8 Medication: 00:27 VIS not applicable for this client. vc1 Outcome: 01:47 Decision to Hospitalize by Provider. cp 02:17 Admitted to ER Hold. Please see [facility] for further documentation. bm8 02:17 Condition: stable 02:17 Instructed on follow up and referral plans. the need for admit, Demonstrated understanding of instructions, follow-up care, medications, 09:55 Patient left the ED. ap3 Signatures: Dispatcher [employer] EDNJ Alf Ghotra PA PA cp Tonia Ríos RN RN ap3 Cathy Ortez6 Lilly Price RN RN vc1 Sy Deal, RN RN bm8 Alanna Haley RN RN br2
--- NOTE | 2025-04-18 01:47 | EDPHYS ---
Physician Documentation [facility] Name: Shelli Mireles Age: 74 yrs Sex: Male : 1950 Arrival Date: 04/17/2025 Time: 23:54 Bed 6 Private MD: Juan Pablo Byrne ED Physician Levon Bowens HPI: 04/18 00:07 This 74 yrs old Male presents to ER via Unassigned with complaints of Shortness Of cp Breath, Chest Wall Pain, Chest Congestion. 00:07 The patient has shortness of breath with light activity. Onset: The symptoms/episode cp began/occurred 2 day(s) ago. 00:07 Duration: The symptoms are continuous, and are steadily getting worse. cp 00:07 Associated signs and symptoms: Pertinent positives: chest pain, productive cough, cp Pertinent negatives: diaphoresis, dizziness, fever, hemoptysis, vomiting. Severity of symptoms: in the emergency department the symptoms are worse moderately. Historical: - Allergies: 00:13 Bactrim; br2 00:13 Sulfa (Sulfonamide Antibiotics); br2 00:13 TETRACYCLINES; br2 - PMHx: 00:13 Cardiac Stents x3; Diabetes - IDDM; diabetic retinopathy; Dialysis (started 03/20/17); br2 High Cholesterol; Hypertension; PE; RENAL FAILURE; - PSHx: 00:13 bypass x 3; pacemaker; Stented artery; br2 - Immunization history:: Adult Immunizations up to date. - Infectious Disease History:: Denies. - Social history:: Smoking status: Patient denies any tobacco usage or history of. Patient/guardian denies using alcohol, street drugs. ROS: 00:10 Constitutional: Negative for body aches, fever, poor PO intake, cp 00:10 Eyes: Negative for injury, pain, redness, and discharge, cp 00:10 ENT: Negative for drainage from ear(s), ear pain, sore throat, difficulty swallowing, difficulty handling secretions, 00:10 Cardiovascular: Positive for chest pain, edema, 00:10 Respiratory: Positive for cough, positive for productive colored sputum, shortness of breath, 00:10 Abdomen/GI: Negative for abdominal pain, vomiting, diarrhea, constipation, 00:10 Neuro: Negative for altered mental status, 00:10 All other systems are negative, Exam: 00:15 Constitutional: The patient appears in no acute distress, alert, awake, cp non-diaphoretic, non-toxic, well developed, well nourished, obese, 00:15 Head/Face: Normocephalic, atraumatic. cp 00:15 Eyes: Periorbital structures: appear normal, Conjunctiva: normal, no exudate, no injection, Sclera: no appreciated abnormality, Lids and lashes: appear normal, bilaterally, 00:15 ENT: External ear(s): are unremarkable, Nose: is normal, Mouth: Lips: moist, Oral mucosa: moist, Posterior pharynx: Airway: no evidence of obstruction, patent, 00:15 Cardiovascular: Rate: tachycardic, 00:15 Respiratory: the patient does not display signs of respiratory distress, Respirations: labored breathing, that is mild, shallow respirations, that is mild, Breath sounds: bronchial sounds, that are moderate, are heard diffusely, stridor, is not appreciated, wheezing: is not appreciated, 00:15 Abdomen/GI: Inspection: obese Palpation: abdomen is soft and non-tender, in all quadrants, 00:15 Back: pain, is absent, ROM is normal, cp 00:15 Neuro: Orientation: to person, place \T\ time. Mentation: is normal, Motor: moves all cp fours, no focal deficits, Vital Signs: 00:09 BP 154 / 93; Pulse 104; Resp 24; Temp 97.3; Pulse Ox 80% 3 lpm ; FiO2 94 %; Weight br2 112.94 kg; Height 5 ft. 11 in. ; Pain 0/10; 00:24 BP 163 / 53; Pulse 101; Resp 22; Pulse Ox 95% on 3 lpm NC; vc1 01:33 BP 155 / 53; Pulse 91; Resp 18; Temp 97.3; Pulse Ox 96% on 2 lpm NC; Pain 0/10; bm8 02:17 BP 148 / 56; Pulse 88; Resp 17; Temp 97.3; Pulse Ox 93% on 2 lpm NC; Pain 0/10; bm8 00:09 Body Mass Index 34.73 (112.94 kg, 180.34 cm) br2 00:09 Pain Scale: Adult br2 01:33 Pain Scale: Adult bm8 02:17 Pain Scale: Adult bm8 Echo Coma Score: 01:21 Eye Response: spontaneous(4). Motor Response: obeys commands(6). Verbal Response: bm8 oriented(5). Total: 15. 01:33 Eye Response: spontaneous(4). Motor Response: obeys commands(6). Verbal Response: bm8 oriented(5). Total: 15. 02:17 Eye Response: spontaneous(4). Motor Response: obeys commands(6). Verbal Response: bm8 oriented(5). Total: 15. MDM: 04/17 23:57 Medical Screening Exam initiated cp 04/18 01:30 Differential diagnosis: CHF exacerbation, Chronic Obstructive Pulmonary Disease cp pneumonia, Pneumothorax pulmonary edema, Pulmonary Embolism Sepsis Unstable Angina. 01:50 Data reviewed: vital signs, nurses notes, lab test result(s), EKG, radiologic studies, cp plain films, and as a result, I will admit patient, administer antibiotics Rocephin, Zithromax. 04/18 00:08 Order name: BNP; Complete Time: :24 04/18 01:24 Interpretation: Normal except: NT PRO-BNP 08528. 04/18 00:08 Order name: Blood Culture Adult (2) cp 04/18 00:08 Order name: CBC with Diff; Complete Time: :24 04/18 01:25 Interpretation: Normal except: RBC 3.10; HGB 9.6; HCT 28.4; RDW 16.4; MAYKEL% 74.7; LYM% cp 12.9. 04/18 00:08 Order name: CMP; Complete Time: 01:24 04/18 01:24 Interpretation: Normal except: GLUC 148; BUN 29; CRE 7.07; GFR 8; AST 13. 04/18 00:08 Order name: Lactate w/ 2H reflex if indic.; Complete Time: :24 04/18 00:08 Order name: Protime (+inr); Complete Time: :24 cp 04/18 00:08 Order name: Ptt, Activated; Complete Time: :24 04/18 01:25 Interpretation: Abnormal: PTT 54.6. 04/18 00:08 Order name: Troponin HS; Complete Time: :24 04/18 00:10 Order name: COVID-19 Ag + Flu A+B Ag; Complete Time: :24 04/18 02:35 Order name: CBC with Automated Diff EDMS 04/18 02:35 Order name: CBC with Automated Diff EDMS 04/18 02:35 Order name: CBC with Automated Diff EDMS 04/18 02:35 Order name: CBC with Automated Diff EDMS 04/18 02:35 Order name: Comprehensive Metabolic Panel EDMS 04/18 02:35 Order name: Comprehensive Metabolic Panel EDMS 04/18 02:35 Order name: Comprehensive Metabolic Panel EDMS 04/18 02:35 Order name: Comprehensive Metabolic Panel EDMS 04/18 09:10 Order name: Glucose, Ancillary Testing EDMS 04/18 00:08 Order name: Chest Single View XRAY cp 04/18 00:08 Order name: Cardiac monitoring; Complete Time: 00:23 cp 04/18 00:08 Order name: EKG - Nurse/Tech; Complete Time: 00:23 cp 04/18 00:08 Order name: IV Saline Lock - Large Bore; Complete Time: 00:23 cp 04/18 00:08 Order name: Labs collected and sent; Complete Time: 00:23 cp 04/18 00:08 Order name: O2 Per Protocol; Complete Time: 00:23 cp 04/18 00:08 Order name: O2 Sat Monitoring; Complete Time: 00:23 cp 04/18 00:08 Order name: Vital Signs; Complete Time: 00:24 cp Administered Medications: 00:29 Drug: DuoNeb Nebulize (2.5 mg - 0.5 mg) 3 ml Nebulizer once Route: Nebulizer; bm8 01:20 Follow up: Response: No adverse reaction bm8 01:15 Drug: Rocephin IV 1 grams IV at calculated rate once; Given slow IV push per pharmacy bm8 instructions Route: IV; Rate: calculated rate; Site: right forearm; 02:18 Follow up: Response: No adverse reaction; IV Status: Completed infusion bm8 01:20 Drug: Zithromax IVPB 500 mg IVPB once over 1 hrs; mix in 250 mL NS Route: IVPB; Infused bm8 Over: 1 hrs; Site: right forearm; 02:18 Follow up: Response: No adverse reaction; IV Status: Completed infusion bm8 Disposition Summary: 04/18/25 01:47 Hospitalization Ordered Notes: Hospitalization Status: Inpatient Admission cp Provider: Demetrio Vasquez cp Condition: Stable cp Problem: new cp Symptoms: have improved cp Bed/Room Type: Standard cp Location: Telemetry/MedSurg (Inpatient)(04/18/25 08:35) eb Room Assignment: 225(04/18/25 08:35) eb Diagnosis - Hypoxemia cp - Acute pulmonary edema cp - Cough cp Forms: - Medication Reconciliation Form cp - SBAR form cp - Leadership Thank You Letter cp Addendum: 04/20/2025 07:00 Co-signature as Attending Physician, Levon Bowens MD I reviewed the patient's care r n provided by the Advanced Practice Provider and agree with the diagnosis and treatment plan. Signatures: Dispatcher [employer] EDMS Levon Bowens MD MD rn Alf Ghotra PA PA cp Garcia, Cindy, RN RN Rebecca Harding Brad RN RN bm8 Alanna Haley RN RN br2 Corrections: (The following items were deleted from the chart) 04/18 00:09 00:09 PROBNP+C.LAB.BRZ ordered. EDNJ EDMS 00:09 00:09 BLOOD CULTURE*+BA.LAB.BRZ ordered. EDMS EDMS 00:09 00:09 CBC+H.LAB.BRZ ordered. EDMS EDMS 00:09 00:09 COMPREHENSIVE METABOLIC PANEL+C.LAB.BRZ ordered. EDMS EDMS 00:09 00:09 LACTATE+C.LAB.BRZ ordered. EDMS EDMS 00:09 00:09 PROTIME (+INR)+COAG.LAB.BRZ ordered. EDMS EDMS 00:09 00:09 PTT, ACTIVATED+COAG.LAB.BRZ ordered. EDMS EDMS 00:09 00:09 Troponin High Sensitivity+C.LAB.BRZ ordered. EDMS EDMS 00:09 00:09 Chest Single View+RAD.RAD.BRZ ordered. EDMS EDMS 00:23 00:08 Accucheck ordered. cp vc1 01:52 01:47 Telemetry/MedSurg (Inpatient) cp cg 01:52 01:47 cp cg 08:35 01:52 [facility] ER HOLD cg eb 08:35 01:52 ERHOLD- cg eb
[2025-04-18] MEDS ORDERED: ONDANSETRON 4 MG/2 ML VIAL IV PRN (02:30)
[2025-04-18] MEDS ORDERED: ALBUTEROL 2.5 MG/3 ML NEB SOL NEB PRN (02:30)
--- NOTE | 2025-04-18 06:07 | RAD REPORT ---
EXAM DESCRIPTION: XR CHEST 1 VIEW INDICATION: CONGESTION TECHNIQUE: chest 1 view. COMPARISON: None FINDINGS: Cardiovascular and mediastinum: Cardiomegaly. Sternotomy changes. ICD. Indistinct central vascularity . Mediastinum is within normal limits. Lungs and pleural spaces: Bilateral pleural effusions. No pneumothorax. Bones: Degenerative changes. Soft tissues: No significant findings Other: Vascular stent along the left subclavian region. IMPRESSION: Findings suggesting component of pulmonary edema. Bilateral pleural effusion. Electronically signed by: Hernán Blackwell MD 04/18/2025 01:57 AM CDT RP Z Due to temporary technical issues with the PACS/[employer] reporting system, reports are being omayra d by the in-house radiologist without review as a courtesy to ensure prompt reporting the interpreting radiologist is fully responsible for the content of the report. Transcribed Date/Time: 04/18/2025 6:07 AM
--- NOTE | 2025-04-18 08:28 | P.HP ---
Certification for Inpatient Patient admitted to: Inpatient With expected LOS: >2 Midnights Patient will require the following post-hospital care: None Practitioner: I am a practitioner with admitting privileges, knowledge of patient current condition, hospital course, and medical plan of care. Services: Services provided to patient in accordance with Admission requirements found in Title 42 Section 412.3 of the Code of Federal Regulations Patient History Date of Service: 04/18/25 Reason for admission: Pulmonary edema versus pleural effusion, productive cough. History of Present Illness: Patient is a 74-year-old male with past medical history of ESRD currently on dialysis Monday, Monday, Monday, manager desktop Dr. Byrne, GERD, CAD, type 2 diabetes mellitus, neuropathy, diabetic retinopathy, triple bypass, with stents placement x 3.. Patient presents to the ER today complaining of progressive shortness of breath, productive cough, states "the expectorant is greenish", denies of any fever or chills. Patient states today when he checked his O2 saturation at home today it was 80% on room air. Patient states he does not use oxygen at home. Patient states he does not void any longer, solely depends on dialysis for fluid extraction.. Course in ER: Chest x-ray 1 view, impression: Findings suggesting component of pulmonary edema. Bilateral pleural effusion. Allergies sulfamethoxazole [From Bactrim] Allergy (Verified 12/09/24 13:56) Hives tetracycline Allergy (Verified 12/09/24 13:56) Hives trimethoprim [From Bactrim] Allergy (Verified 12/09/24 13:56) Hives Home Medications: Cholecalciferol (Vitamin D3) [Vitamin D3] 10,000 unit PO DAILY 04/23/19 Docusate [Colace Cap*] 100 mg PO BID 04/23/19 Gabapentin 300 mg PO TID 04/23/19 Hydrocodone Bit/Acetaminophen [Hydrocodon-Acetaminoph 7.5-325] 1 each PO TID PRN 04/23/19 Insulin Glargine,Hum.rec.anlog [Lantus Solostar] 30 unit SQ DAILY 04/23/19 [place]-3/Dha/Epa/Fish Oil [[place] 3 500 Softgel] 2 cap PO BID 04/23/19 Pantoprazole [Protonix Tab*] 40 mg PO BID 04/23/19 Sevelamer Carbonate [Renvela*] 1,600 mg PO TIDWM 04/23/19 Aspirin Chewable [Aspirin Chewable*] 81 mg PO DAILY 11/07/19 Lidocaine/Prilocaine Crm [Emla Cream*] 1 leonides TOP PRN PRN 11/07/19 Polyethyl Gly 3350 [Glycolax*] 17 gm PO DAILY 11/07/19 Folic Acid/Vit B Complex and C [Rebecca-Senthil Tablet] 0.8 mg PO DAILY 06/19/23 Insulin Aspart [Novolog Flexpen] 20 - 30 units SQ TIDWM PRN 06/19/23 Losartan Potassium 50 mg PO DAILY 06/19/23 Mecobalamin [B12 Active] 1,000 mcg PO DAILY 06/19/23 Midodrine HCl [Proamatine*] 10 mg PO EVERY HD PRN 06/19/23 NIFEdipine [Nifedipine ER] 60 mg PO BID 06/19/23 Promethazine HCl 25 mg PO Q6H PRN 06/19/23 Ranolazine [Ranolazine ER] 1 tab PO BID 06/19/23 Rosuvastatin [Crestor*] 10 mg PO BEDTIME 06/19/23 Sodium Polystyrene Sulfonate 15 g PO T,TH,S 06/19/23 Warfarin Sodium [Coumadin*] 5 mg PO M,W,F 06/19/23 Warfarin Sodium [Coumadin*] 7.5 mg PO T,TH,S 06/19/23 carvediloL [Coreg] 25 mg PO BID 06/19/23 - Past Medical/Surgical History Diabetic: Yes -: ESRD on HD MWF (Dr. Byrne/ Dr. Hurtado) -: Atrial fibrillation on chronic anti coagulation therapy -: CAD w cardiac stents -: HLD -: DM II with Polyneuropathy -: Diabetes mellitus type 2, insulin dependent -: CHRIS -: pericardial tamponade, pericarditis -: pulmonary embolism -: hepatitis A -: kidney stones -: pleural effusion -: pacemaker placement 04/29/19 -: thoracentesis -: Left cath & PCI- 01/03/19 & 10/23/19 -: BYPASS- aorto coronary 10/28/19 -: Sternotomy- median thoracic 10/28/19 -: Endoscopic vein harvest 10/28/19 Psychosocial/ Personal History: Patient is . Lives at home. - Family History Father -: Cancer (Lymphoma.) Brother -: Cancer (Leukemia.) - Social History Smoking Status: Former smoker Alcohol use: No CD- Drugs: No Caffeine use: Yes Place of Residence: Home Review of Systems 10-point ROS is otherwise unremarkable Respiratory: Cough, Shortness of Breath, SOB with Excertion Physical Examination - Vital Signs Temperature: 97.3 F Blood Pressure: 158/55 Pulse: 79 Respirations: 18 Pulse Ox (%): 95 - Physical Exam General: Alert, In no apparent distress, Oriented x3 HEENT: Atraumatic, Normocephalic, PERRLA, Mucous membr. moist/pink, Sclerae nonicteric Neck: Supple, 2+ carotid pulse no bruit, No LAD, Without JVD or thyroid abnormality Respiratory: Diminished (Coarse crackles and rhonchi bilateral lungs.) Cardiovascular: No gallops, No rubs, No murmurs, Edema (1+ pitting edema bilateral lower extremities.), Irregular heart rate/rhythm (History of atrial fibrillation.) Capillary refill: <2 Seconds Gastrointestinal: Normal bowel sounds, Soft and benign, W/out hepatomegaly, No ascites, No tenderness, No masses, No rebound, No guarding Musculoskeletal: No clubbing, No erythema, No tenderness, No warmth, Swelling Integumentary: No rashes, No breakdown, No erythema, No warmth, No cyanosis, Other (Dialysis access.) Neurological: Normal gait, Normal speech, Normal strength at 5/5 x4 extr, Normal tone, Sensation intact, Cranial nerves 3-12 intact, Normal reflexes 2+, Normal affect Lymphatics: No axilla or inguinal lymphadenopathy Urinary: Dialysis catheter - Studies Laboratory Data (last 24 hrs) 04/18/25 04/18/25 04/18/25 00:20 00:20 00:20 WBC 8.50 Hgb 9.6 L Hct 28.4 L Plt Count 178 PT 31.6 H INR 2.88 APTT 54.6 H Sodium 140 Potassium 3.7 BUN 29 H Creatinine 7.07 H Glucose 148 H Total Bilirubin 0.4 AST 13 L ALT 22 Alkaline Phosphatase 88 Male Exam - Male Exam Inguinal exam: No hernias Assessment and Plan - Plan Patient is a 74-year-old male who reports to ER complaining of shortness of breath for the past 2 to 3 days. Denies of any chest pain. (1)Pulmonary edema versus pleural effusion. Patient chest x-ray impression suggesting component of pulmonary edema, and bilateral pleural effusion. Patient is not able to void any longer. Lasix administration would have been appreciated but unfortunately he is not able to void. - Consult patient manager desktop Dr. Byrne. Patient receives dialysis Monday, Monday, and Monday which implies he will be getting his dialysis done today. -Albuterol 2.5 mg as needed every 6 hours. - Prophylactic antibiotics Rocephin 2 g IV daily. Patient states when he coughs his expectorant is greenish in color. Patient also has a left shift. -Oxygen supplement 3 L to maintain O2 saturation 95% and above. (2)Chronic type 2 diabetes mellitus. -ACHS with moderate sliding scale coverage. (4) chronic atrial fibrillation. -Continue home medication Coumadin 5 mg p.o. daily. -Telemetry. (3)To resume patient home medication after reconciliation. Explained entire treatment plan to the patient, solicit questions answered and voiced understanding. Discharge Plan: Home Plan to discharge in: 48 Hours - Advance Directives Does patient have a Living Will: Yes Does patient have a Durable POA for Healthcare: No - Code Status/Comfort Care Code Status Assessed: Yes Code Status: Full Code Time Spent Managing Pts Care (In Minutes): 55
--- NOTE | 2025-04-18 09:08 | P.PN ---
Date of Service: 04/18/25 Subjective: came to ER after he checked his O2 sats at home and was found to be at 80% on room air been dealing with worsening shortness of breath, productive cough with greenish sputum for few days doesn't use oxygen at home denies fever or chills Physical Exam: GEN: Alert, oriented, NAD CV: Regular rate and rhythm, no edema Pulm: Nonlabored respirations on room air, clear bilaterally ABD: soft, nontender, nondistended Neuro: Normal speech, normal affect Problem List: ESRD on HD MWF Acute hypoxic respiratory failure Chronic diastolic CHF CAD s/p CABG and PCI x3 (2019) A-fib on chronic anticoagulation Hypertension Hyperlipidemia GERD Obstructive sleep apnea IDDM2 with Neuropathy/Retinopathy Hx Hepatitis A Hx Pacemaker placement (2018) Hx of PE ESRD on HD MWF Acute hypoxic respiratory failure secondary to volume overload on admission, presents with worsening shortness of breath, productive cough. Denies fever/chills. Satting in 80s on RA at home so he came here. Does not use oxygen at home. CXR (04/18): Pulmonary edema. Bilateral pleural effusions. Cardiomegaly. ICD. Creatinine 7 on admission. BNP 26k; Rest of labs unremarkable. Nephrology consulted - HD per nephro Started on IV rocephin on admission Echo ordered to eval EF / stenosis Follow sputum, blood cultures. Check hepatitis panel Renal diet seems secondary to fluid overload Acute on chronic anemia Hgb similar to past labs. Daily labs. Chronic diastolic CHF CAD s/p CABG and PCI x3 (2019) A-fib on chronic anticoagulation Hypertension Hyperlipidemia GERD Obstructive sleep apnea IDDM2 with Neuropathy/Retinopathy Hx Hepatitis A Hx Pacemaker placement (2018) Hx of PE confirm home meds, restart as appropriate restart home coumadin VTE: home coumadin Code: Full Dispo: Home, ~3 days Time Spent Managing Pts Care (In Minutes): 55
[2025-04-18] MEDS: INSULIN REGULAR (HUMAN) 100 UNIT/ML SQ SCH (11:23)
--- NOTE | 2025-04-18 11:28 | P.CNS ---
Date of Consult: 04/18/25 Reason for Consult: ESRD, dyspnea, cough Requesting Physician: Demetrio Vasquez Chief Complaint: Pulmonary edema versus pleural effusion, productive cough. History of Present Illness: Pt is a 74-year-old male well known to our service with a past medical history of ESRD currently on dialysis Monday, Monday, Monday at [facility] with last OP HD on Mon. Pt has underlying type 2 diabetes mellitus with unspecified complications with recent 10 kg weight loss on GLP-1 agents, underlying hx of CAD, ischemic CMP, unspecified CHF, and who has not had any recent hospitalizations but reports productive cough since Mon culminating in increased shortness of breath and hypoxia leading to ER visit where CXR was found to be abnormal and pt admitted. He denies any chest pressure. Allergies sulfamethoxazole [From Bactrim] Allergy (Verified 12/09/24 13:56) Hives tetracycline Allergy (Verified 12/09/24 13:56) Hives trimethoprim [From Bactrim] Allergy (Verified 12/09/24 13:56) Hives Home Medications: Cholecalciferol (Vitamin D3) [Vitamin D3] 10,000 unit PO DAILY 04/23/19 Docusate [Colace Cap*] 100 mg PO BID 04/23/19 Gabapentin 300 mg PO TID 04/23/19 Hydrocodone Bit/Acetaminophen [Hydrocodon-Acetaminoph 7.5-325] 1 each PO TID PRN 04/23/19 Insulin Glargine,Hum.rec.anlog [Lantus Solostar] 30 unit SQ DAILY 04/23/19 [place]-3/Dha/Epa/Fish Oil [[place] 3 500 Softgel] 2 cap PO BID 04/23/19 Pantoprazole [Protonix Tab*] 40 mg PO BID 04/23/19 Sevelamer Carbonate [Renvela*] 1,600 mg PO TIDWM 04/23/19 Aspirin Chewable [Aspirin Chewable*] 81 mg PO DAILY 11/07/19 Lidocaine/Prilocaine Crm [Emla Cream*] 1 leonides TOP PRN PRN 11/07/19 Polyethyl Gly 3350 [Glycolax*] 17 gm PO DAILY 11/07/19 Folic Acid/Vit B Complex and C [Rebecca-Senthil Tablet] 0.8 mg PO DAILY 06/19/23 Insulin Aspart [Novolog Flexpen] 20 - 30 units SQ TIDWM PRN 06/19/23 Losartan Potassium 50 mg PO DAILY 06/19/23 Mecobalamin [B12 Active] 1,000 mcg PO DAILY 06/19/23 Midodrine HCl [Proamatine*] 10 mg PO EVERY HD PRN 06/19/23 NIFEdipine [Nifedipine ER] 60 mg PO BID 06/19/23 Promethazine HCl 25 mg PO Q6H PRN 06/19/23 Ranolazine [Ranolazine ER] 1 tab PO BID 06/19/23 Rosuvastatin [Crestor*] 10 mg PO BEDTIME 06/19/23 Sodium Polystyrene Sulfonate 15 g PO T,TH,S 06/19/23 Warfarin Sodium [Coumadin*] 5 mg PO M,W,F 06/19/23 Warfarin Sodium [Coumadin*] 7.5 mg PO T,TH,S 06/19/23 carvediloL [Coreg] 25 mg PO BID 06/19/23 - Past Medical/Surgical History Diabetic: Yes -: ESRD on HD MWF (Dr. Byrne/ Dr. Hurtado) -: Atrial fibrillation on chronic anti coagulation therapy -: CAD w cardiac stents -: HLD -: DM II with Polyneuropathy -: Diabetes mellitus type 2, insulin dependent -: CHRIS -: pericardial tamponade, pericarditis -: pulmonary embolism -: hepatitis A -: kidney stones -: pleural effusion -: pacemaker placement 04/29/19 -: thoracentesis -: Left cath & PCI- 01/03/19 & 10/23/19 -: BYPASS- aorto coronary 10/28/19 -: Sternotomy- median thoracic 10/28/19 -: Endoscopic vein harvest 10/28/19 Psychosocial/ Personal History: Patient is . Lives at home. - Family History Father Medical History: Cancer (Lymphoma.) Brother Medical History: Cancer (Leukemia.) - Social History Smoking Status: Unknown if ever smoked Alcohol use: No CD- Drugs: No Caffeine use: Yes Place of Residence: Home Review of Systems General: Malaise Eyes: Unremarkable ENT: Unremarkable Respiratory: Cough, Shortness of Breath, Sputum, As per HPI Cardiovascular: As per HPI Gastrointestinal: Unremarkable Genitourinary: Unremarkable Musculoskeletal: Unremarkable Integumentary: Unremarkable Neurological: Unremarkable Physical Examination Temp Pulse Resp BP Pulse Ox 98.2 F 84 18 177/85 H 98 04/18/25 10:15 04/18/25 10:15 04/18/25 10:15 04/18/25 10:15 04/18/25 10:15 General: In no apparent distress, Cooperative, Other (Appears ill) HEENT: Normocephalic, Other (LFNC) Neck: Supple Respiratory: Normal air movement, Other (non tachypnec, scattered b/l rales) Cardiovascular: No edema, Regular rate/rhythm, No gallops Gastrointestinal: Soft and benign, Non-distended, No tenderness Musculoskeletal: No contractures, No tenderness, Other (Lt UE AVF) Integumentary: No rashes, No tenderness/swelling, No erythema Neurological: Normal speech, Normal tone, Normal affect Laboratory Data (last 24 hrs) 04/18/25 04/18/25 04/18/25 00:20 00:20 00:20 WBC 8.50 Hgb 9.6 L Hct 28.4 L Plt Count 178 PT 31.6 H INR 2.88 APTT 54.6 H Sodium 140 Potassium 3.7 BUN 29 H Creatinine 7.07 H Glucose 148 H Total Bilirubin 0.4 AST 13 L ALT 22 Alkaline Phosphatase 88 Conclusions/Impression: A/P) 1. ESRD 2nd to chronic conditions, on long standing iHD at [facility], with last OP HD Mon 2. HD today for clearance and UF, see orders for details 3. Acute hypoxic resp insufficiency 2nd to a combination of cardiogenic pulm edema and probable infectious component. Viral testing in the ER neg, check sputum culture, cover for CAP 4. Ischemic CMP, HF unspecified -loss of weight on GLP-1 has made it difficult to determine true EDW, typically has large IDWG, no recent hospitalizations for CHF, will target UF goal of 3-3.5L, will repeat CXR in AM 5. Hypertensive heart and kidney disease, resume home BP meds.
[2025-04-18] MEDS: POTASSIUM CL SA 10 MEQ TAB PO ONE (13:06)
[2025-04-18 13:51] LABS: Hepatitis B Surface Ab - Quant 156.99 mIU/mL (<8.0); Hepatitis B surface AG Interp. Nonreactive (Nonreactive)
[2025-04-18 13:52] LABS: HBsAG Nonreactive Report Report
--- NOTE | 2025-04-18 14:29 | ECHO ---
HEIGHT: 5 ft 11 in WEIGHT: 249 lb 0 oz DATE OF STUDY: 04/18/[address]: Sam Bowens MD 2-DIMENSIONAL: YES M.MODE: YES DOPPLER: YES COLOR FLOW: YES TDS: PORTABLE: YES DEFINITY: BUBBLE STUDY: DIAGNOSIS: EVALUATE FUNCTION CARDIAC HISTORY: CATHERIZATION: SURGERY: PROSTHETIC VALVE: PACEMAKER: MEASUREMENTS (cm) DIASTOLIC (NORMALS) SYSTOLIC (NORMALS) IVSd 1.2 (0.6-1.2) LA Diam 5.2 (1.9-4.0) LVEF 55% LVIDd 5.7 (3.5-5.7) LVIDs 4.2 (2.0-3.5) %FS 26% LVPWd 1.4 (0.6-1.2) Ao Diam 2.8 (2.0-3.7) 2 DIMENSIONAL ASSESSMENT: RIGHT ATRIUM: NORMAL LEFT ATRIUM: ENLARGED RIGHT VENTRICLE: NORMAL LEFT VENTRICLE: NORMAL TRICUSPID VALVE: MILD TRICUSPID REGURGITATION MITRAL VALVE: MILD MITRAL REGURGITATION PULMONIC VALVE: MILD PULMONIC INSUFFICIENCY AORTIC VALVE: NORMAL PERICARDIAL EFFUSION: NONE AORTIC ROOT: NORMAL LEFT VENTRICULAR WALL MOTION: NORMAL DOPPLER/COLOR FLOW: SEE BELOW COMMENTS: 1. NORMAL LEFT VENTRICULAR EJECTION FRACTION 55% WITH NORMAL WALL MOTION 2. SEVERE DIASTOLIC DYSFUNCTION 3. SEVERE PULMONARY HYPERTENSION WITH RIGHT VENTRICULAR SYSTOLIC PRESSURE GREATER THAN 60 mmHg 4. LEFT ATRIAL ENLARGEMENT 5. MILD TRICUSPID REGURGITATION, MITRAL REGURGITATION TECHNOLOGIST: WALESKA COHEN
[2025-04-18] MEDS: WARFARIN SODIUM 5 MG TAB PO SCH (18:19)
[2025-04-18] MEDS: GABAPENTIN 300 MG CAP PO SCH (21:00)
[2025-04-18] MEDS: PANTOPRAZOLE 40MG TABLET PO SCH (21:06)
[2025-04-18] MEDS: NIFEDIPINE XL 90 MG TABLET PO SCH (21:06)
[2025-04-18] MEDS: ROSUVASTATIN 10 MG TAB PO SCH (21:06)
[2025-04-18] MEDS: CEFTRIAXONE 2,000 MG in NA CHLORIDE 0.9% 100 ML IV SCH (21:07)
[2025-04-18] MEDS: GABAPENTIN 300 MG CAP PO ONE (21:18)
[2025-04-18] MEDS: HYDROCODONE/APAP 7.5/325 MG TAB PO PRN (21:18)
[2025-04-19] MEDS: LOSARTAN POTASSIUM 50 MG TABLET PO ONE ×2 (04:15→04:48)
[2025-04-19] MEDS: LOSARTAN POTASSIUM 50 MG TABLET ONE (04:45)
[2025-04-19 05:44] LABS: Absolute Lymphocytes (CBC) 1.7 K/uL (0.7-4.9); Hematocrit 27.1 % (39.6-49.0); Hemoglobin 8.9 g/dL (13.6-17.9); MCH 30.6 pg (27.0-35.0); MCHC 32.9 g/dL (32.0-36.0); MCV 93.0 fL (80-100); MPV 10.5 fL (7.6-11.3); Nucleated RBC Absolute Count 0.0 (0-0); Nucleated Red Blood Cells % 0.0 % (0-0); RBC Red Blood Cell Count 2.91 M/uL (4.33-5.43); White Blood Count 7.80 thou/uL (4.3-10.9)
[2025-04-19 06:23] LABS: ALT/SGPT 17 U/L (16-61); AST/SGOT 13 U/L (15-37); Albumin 2.9 g/dL (3.4-5.0); Albumin/Globulin Ratio 0.9 (1.1-1.8); Alkaline Phosphatase 69 U/L (45-117); Anion Gap 12.1 mEq/L (5.0-15.0); BUN Blood Urea Nitrogen 28 mg/dL (7-18); Globulin 3.3 g/dL (2.3-3.5); Glucose Level 113 mg/dL (74-106); Magnesium 2.1 mg/dL (1.6-2.4); Potassium 4.1 mEq/L (3.5-5.1)
[2025-04-19 06:48] LABS: NT PRO-BNP > 3500 pg/mL (<125)
--- NOTE | 2025-04-19 07:53 | RAD REPORT ---
Procedure: Chest Single View HISTORY: Cough COMPARISON: April 18, 2025 FINDINGS: Partial resolution in bilateral pulmonary opacities. Heart remains enlarged. Pacer/AICD in place. Post surgical changes involve the chest. Probable small to moderate left and small right pleural effusions IMPRESSION: Partial resolution in pulmonary edema
[2025-04-19] MEDS: SEVELAMER CARBONATE 800 MG TABLET PO SCH (08:15)
[2025-04-19] MEDS: MULTIVITAMINS,THERAPEUT 1 TAB PO SCH (08:15)
[2025-04-19] MEDS: ASPIRIN 81 MG CHEWABLE TABLET PO SCH (08:15)
[2025-04-19] MEDS: LOSARTAN POTASSIUM 50 MG TABLET PO SCH (08:20)
[2025-04-19] MEDS: Mecobalamin [B12 Active] 1,000 MCG Tab.Chew PO SCH (08:20)
[2025-04-19] MEDS ORDERED: SOD POLYSTYREN SUL 15 GM/60 ML UCUP PO SCH (09:00)
[2025-04-19] MEDS: VITAMIN D 5,000 UNIT CAP PO SCH (09:00)
[2025-04-19] MEDS: POLYETHYL GLY 3350 17 GM/DOSE PO PRN (09:47)
--- NOTE | 2025-04-19 11:01 | P.PN ---
Date of Service: 04/19/25 Subjective: feels ~same as yesterday. reports ongoing phlegm / cough Doesn't feel worse tolerated dialysis yesterday and had ~7L removed no issues overnight R ear pain Physical Exam: GEN: Alert, oriented, NAD CV: Regular rate and rhythm, no edema Pulm: Nonlabored respirations on 2L NC, mild cough ABD: soft, nontender, nondistended Neuro: Normal speech, normal affect Problem List: ESRD on HD MWF Acute hypoxic respiratory failure Chronic diastolic CHF CAD s/p CABG and PCI x3 (2019) A-fib on chronic anticoagulation Hypertension Hyperlipidemia GERD Obstructive sleep apnea IDDM2 with Neuropathy/Retinopathy Hx Hepatitis A Hx Pacemaker placement (2018) Hx of PE ESRD on HD MWF Acute hypoxic respiratory failure secondary to volume overload on admission, presents with worsening shortness of breath, productive cough. Denies fever/chills. Satting in 80s on RA at home so he came here. Does not use oxygen at home. CXR (04/18): Pulmonary edema. Bilateral pleural effusions. Cardiomegaly. ICD. Echo with 55% EF, severe diastolic dysfunction, severe pulmonary hypertension, left atrial enlargement, mild TR/MR Creatinine 7 on admission. BNP 26k; Rest of labs unremarkable. Continue empiric IV rocephin for now (04/18-); Blood cx: NGTD Seems secondary to fluid overload Nephrology consulted - HD per nephro repeat CXR today showed partial resolution in bilateral opacities HD yesterday. plan for PUF today per nephro Acute on chronic anemia Hgb similar to past labs. Daily labs. Chronic diastolic CHF CAD s/p CABG and PCI x3 (2019) A-fib on chronic anticoagulation Hypertension Hyperlipidemia GERD Obstructive sleep apnea IDDM2 with Neuropathy/Retinopathy Hx Hepatitis A Hx Pacemaker placement (2018) Hx of PE confirm home meds, restart as appropriate continue home coumadin, nifedipine, protonix, ranexa, statin, coreg, renvela, asa 81mg, losartan VTE: home coumadin Code: Full Dispo: Home, ~2-3 days Time Spent Managing Pts Care (In Minutes): 55
[2025-04-19] MEDS: ACETAMINOPHEN 500 MG TAB PO PRN (19:27)
[2025-04-19] MEDS: DOCUSATE NA 100 MG CAP PO SCH (21:00)
[2025-04-19] MEDS: GABAPENTIN 300 MG CAP PO SCH (23:44)
[2025-04-20 08:04] LABS: Absolute Lymphocytes (CBC) 1.8 K/uL (0.7-4.9); Hematocrit 27.7 % (39.6-49.0); Hemoglobin 9.2 g/dL (13.6-17.9); MCH 30.4 pg (27.0-35.0); MCHC 33.2 g/dL (32.0-36.0); MCV 91.5 fL (80-100); MPV 10.6 fL (7.6-11.3); Nucleated RBC Absolute Count 0.0 (0-0); Nucleated Red Blood Cells % 0.0 % (0-0); RBC Red Blood Cell Count 3.03 M/uL (4.33-5.43); White Blood Count 5.90 thou/uL (4.3-10.9)
[2025-04-20 08:50] LABS: ALT/SGPT 18.0 U/L (16-61); AST/SGOT 12.0 U/L (15-37); Albumin 2.9 g/dL (3.4-5.0); Albumin/Globulin Ratio 0.8 (1.1-1.8); Alkaline Phosphatase 72.0 U/L (45-117); Anion Gap 13.0 mEq/L (5.0-15.0); BUN Blood Urea Nitrogen 40.0 mg/dL (7-18); Globulin 3.5 g/dL (2.3-3.5); Glucose Level 114.0 mg/dL (74-106); Magnesium 2.4 mg/dL (1.6-2.4); Potassium 4.0 mEq/L (3.5-5.1)
--- NOTE | 2025-04-20 11:43 | P.PN ---
Date of Service: 04/20/25 Subjective: no acute events tolerated HD feeling better Physical Exam: GEN: Alert, oriented, NAD CV: Regular rate and rhythm, no edema Pulm: Nonlabored respirations on 2L NC, mild cough ABD: soft, nontender, nondistended Neuro: Normal speech, normal affect Problem List: ESRD on HD MWF Acute hypoxic respiratory failure Chronic diastolic CHF CAD s/p CABG and PCI x3 (2019) A-fib on chronic anticoagulation Hypertension Hyperlipidemia GERD Obstructive sleep apnea IDDM2 with Neuropathy/Retinopathy Hx Hepatitis A Hx Pacemaker placement (2018) Hx of PE ESRD on HD MWF Acute hypoxic respiratory failure secondary to volume overload on admission, presents with worsening shortness of breath, productive cough. Denies fever/chills. Satting in 80s on RA at home so he came here. Does not use oxygen at home. CXR (04/18): Pulmonary edema. Bilateral pleural effusions. Cardiomegaly. ICD. Echo with 55% EF, severe diastolic dysfunction, severe pulmonary hypertension, left atrial enlargement, mild TR/MR Creatinine 7 on admission. BNP 26k; Rest of labs unremarkable. Continue empiric IV rocephin for now (04/18-); Blood cx: NGTD Seems secondary to fluid overload Nephrology consulted - HD per nephro repeat CXR (04/19) showed partial resolution in bilateral opacities feeling better each day Acute on chronic anemia Hgb similar to past labs. Daily labs. Constipation colace BID, Miraliax PRN Chronic diastolic CHF CAD s/p CABG and PCI x3 (2019) A-fib on chronic anticoagulation Hypertension Hyperlipidemia GERD Obstructive sleep apnea IDDM2 with Neuropathy/Retinopathy Hx Hepatitis A Hx Pacemaker placement (2018) Hx of PE confirm home meds, restart as appropriate continue home coumadin, nifedipine, protonix, ranexa, statin, coreg, renvela, asa 81mg, losartan VTE: home coumadin Code: Full Dispo: Home, ~1-2 days possibly tomorrow after HD may need home o2, will check ambulatory O2 tomorrow Time Spent Managing Pts Care (In Minutes): 45
[2025-04-20] MEDS: GABAPENTIN 300 MG CAP ONE (15:17)
[2025-04-20] MEDS: GABAPENTIN 300 MG CAP PO SCH (15:23)
--- NOTE | 2025-04-20 21:12 | CON ---
Date of Consultation: 04/20/2025 Reason For Consultation: Shortness of breath. History Of Present Illness: 74-year-old male with history of end-stage renal disease, on hemodialysi s, comes in because of shortness of breath and lightheadedness. His shortness of breath is progressi ve with mild productive cough. Denies any fever or any significant chest pain. No nausea, vomiting, or diarrhea. Past Medical History: End-stage renal disease, atrial fibrillation, coronary artery disease, dyslipi demia, diabetes. Past Surgical History: Cardiac cath, PCI, and bypass surgery. Medications: Refer reconciliation sheet for detailed list. Allergies: SULFA, TETRACYCLINE AND BACTRIM. Family History: No premature coronary artery disease or cancer. Social History: Does not smoke or drink. Does not use any drugs. Review of Systems: All systems reviewed. They are negative except as mentioned in HPI. Physical Examination: Vital Signs: Reviewed. Head and Neck: Pupils are equal, reactive to light. Intact eye movements. No JVD. No cervical lym phadenopathy. Neck is supple. Thyroid is not enlarged. Lungs: Clear to auscultation bilaterally. No rhonchi, wheezing, or crackles. No accessory muscle u se. Heart: Regular rate and rhythm. No extra sounds. Abdomen: Soft, nontender. Bowel sounds positive. No organomegaly. No organomegaly. No masses or hernia. No rigidity or rebound. Extremities: No clubbing or cyanosis. Intact pulses. Skin: No rash, no nodules. Neuro: Alert, awake, and oriented x3. No acute focal deficits appreciated. Investigations: BUN 40, creatinine 7.8, and troponins are negative. Assessment/recommendations: 1. Pulmonary edema, probably due to the end-stage renal disease, patient needs more fluid removal dur ing dialysis and this was done during this hospital stay and he is feeling much better. He follows u p with his valve repairer in [place]. At this point, he appears to be euvolemic. If cleared for disch arge, the patient can be released to follow up with the primary valve repairer early next week. 2. Coronary artery disease. No chest pain. Cardiac enzymes are negative. 3. End-stage renal disease, on hemodialysis, much better after in-house dialysis. No further inpatie nt cardiac workup is recommended and recommend to follow up with primary valve repairer. Cardiology wi ll sign-off. SR/MODL Voice ID: [id number] Report ID: [id number]
[2025-04-21 05:14] LABS: Absolute Lymphocytes (CBC) 1.3 K/uL (0.7-4.9); Hematocrit 27.1 % (39.6-49.0); Hemoglobin 9.1 g/dL (13.6-17.9); MCH 30.6 pg (27.0-35.0); MCHC 33.5 g/dL (32.0-36.0); MCV 91.3 fL (80-100); MPV 10.2 fL (7.6-11.3); Nucleated Red Blood Cells % 0.0 % (0-0); RBC Red Blood Cell Count 2.96 M/uL (4.33-5.43); White Blood Count 5.00 thou/uL (4.3-10.9)
[2025-04-21 05:15] LABS: Nucleated RBC Absolute Count 0.0 (0-0)
[2025-04-21 05:44] LABS: ALT/SGPT 17 U/L (16-61); Albumin 2.9 g/dL (3.4-5.0); Albumin/Globulin Ratio 0.9 (1.1-1.8); Alkaline Phosphatase 66 U/L (45-117); Anion Gap 14.4 mEq/L (5.0-15.0); BUN Blood Urea Nitrogen 47 mg/dL (7-18); Globulin 3.2 g/dL (2.3-3.5); Glucose Level 148 mg/dL (74-106); Magnesium 2.4 mg/dL (1.6-2.4); Potassium 4.4 mEq/L (3.5-5.1)
[2025-04-21 05:48] LABS: AST/SGOT < 10 U/L (15-37)
[2025-04-21 06:41] VITALS: BMI 33.9
[2025-04-21 10:34] VITALS: O2SAT 97
[2025-04-21 13:24] VITALS: BP 157/69; TEMP 98
--- NOTE | 2025-04-21 18:58 | P.PN ---
Date of Service: 04/21/25 Vital Signs Temp Pulse Resp BP Pulse Ox 98.0 F 66 12 157/69 H 98 04/21/25 12:00 04/21/25 12:00 04/21/25 12:00 04/21/25 12:00 04/21/25 12:00 Microbiology Results 04/18/25 00:35 Blood - Blood Aerobic Blood Culture - Preliminary No growth in 24 hours. 04/18/25 00:35 Blood - Blood Anaerobic Blood Culture - Preliminary No growth in 24 hours. 04/18/25 00:20 Blood - Blood Aerobic Blood Culture - Preliminary No growth in 24 hours. 04/18/25 00:20 Blood - Blood Anaerobic Blood Culture - Preliminary No growth in 24 hours. Assessment/ Plan: Nephrology Improving dyspnea No chest pain No acute events overnight Vitals, medications, blood work and imaging reviewed in the chart NAD. Obese. MMM. NCAT. Normal Respiratory Effort. S1S2. ND Abd. No C/C. LE Edema 1+. No rash. AAO. Normal speech. 1. ESRD 2nd to chronic conditions, on long standing iHD at [facility], with last OP HD Wed 2. Seen and examined on HD today 3. Acute hypoxic resp insufficiency 2nd to a combination of cardiogenic pulm edema and probable infectious component.Abx cover for CAP 4. Ischemic CMP, HF unspecified -loss of weight on GLP-1 has made it difficult to determine true EDW, typically has large IDWG, no recent hospitalizations for CHF, UF with HD 5. Hypertensive heart and kidney disease, stable home BP meds. 6. States he is ready to go home after dialysis today 7. Case reviewed with Dr. Bowens
== END 2025-04-21 18:06 | disposition home or self-care (01) | DRG 291 ==
LOC: ER 23:54 → ERHOLD 04-18 02:23 → 2ND 04-18 09:06
PROVIDERS: ADMIT Hospitalist; ATTEND Hospitalist
PROC: 5A1D70Z Performance of Urinary Filtration, Intermittent, Less than 6 Hours Per Day (ICD-10-PCS; principal; 2025-04-18)
DX: I13.2 Hypertensive heart and chronic kidney disease with heart failure and with stage 5 chronic kidney disease, or end stage renal disease (principal); J96.01 Acute respiratory failure with hypoxia; N18.6 End stage renal disease; I48.20 Chronic atrial fibrillation, unspecified; E11.22 Type 2 diabetes mellitus with diabetic chronic kidney disease; I50.32 Chronic diastolic (congestive) heart failure; Z88.1 Allergy status to other antibiotic agents; Z88.2 Allergy status to sulfonamides; Z95.5 Presence of coronary angioplasty implant and graft; E11.319 Type 2 diabetes mellitus with unspecified diabetic retinopathy without macular edema; Z99.2 Dependence on renal dialysis; E78.00 Pure hypercholesterolemia, unspecified; Z95.0 Presence of cardiac pacemaker; Z23 Encounter for immunization; Z11.52 Encounter for screening for COVID-19; K21.9 Gastro-esophageal reflux disease without esophagitis; Z79.4 Long term (current) use of insulin; Z79.891 Long term (current) use of opiate analgesic; Z79.899 Other long term (current) drug therapy; Z79.82 Long term (current) use of aspirin; Z79.01 Long term (current) use of anticoagulants; E11.42 Type 2 diabetes mellitus with diabetic polyneuropathy; G47.33 Obstructive sleep apnea (adult) (pediatric); Z86.711 Personal history of pulmonary embolism; E78.5 Hyperlipidemia, unspecified; Z87.442 Personal history of urinary calculi; I25.10 Atherosclerotic heart disease of native coronary artery without angina pectoris; Z86.19 Personal history of other infectious and parasitic diseases; Z87.891 Personal history of nicotine dependence; Z95.1 Presence of aortocoronary bypass graft; I25.5 Ischemic cardiomyopathy
CPT/HCPCS: 36415; 71045; 80053; 82947; 83605; 83735; 83880; 84484; 85025; 85610; 85730; 86706; 87040; 87340; 87428; 90935; 93005; 93306; 96365; 99285; J0456; J0696; J1644; J1815; J7050; J7613; J7644